=== PATIENT | male | born 1975 | race Caucasian/White ===

== ENCOUNTER 2019-04-03 14:59 | Inpatient (IN) | payer BC, OTHER ==
[~2019-04-03] VITALS: Ht 172.7 cm; Wt 96.6 kg
[2019-04-03 14:45] VITALS: BP 141/111
--- NOTE | 2019-04-03 17:08 | HPEPDOC ---
Jig Filler Note DATE OF ADMISSION: 04-03-19 SOURCE OF ADMISSION INFORMATION: [facility] CHIEF COMPLAINT: CIDP HISTORY OF PRESENT ILLNESS: 43M pmh HTN, depression, kidney stones, diagnosed with bibasilar metapneumovirus PNA October 2018 and again in December 2018 where he was worked up at [facility] and later presented to [facility] on 03-06-19 with worsening shortness of breath and left arm weakness. He was diagnosed with Rhinovirus. Of note a sathish romuscular work-up at [facility] had been performed without a definitive diagnosis. At [facility] he underwent an LP which showed elevated proteins and was started on IV solumedrol and transitioned to oral steroids. He was evaluated by neurology who considered his LP findings to be autoimmune in nature, however was not certain if his unilateral weakness presentation was characteristic of CIDP. He was started on IVIG for his continued weakness and respiratory impairments due to shallow breathing thought to be due to a neuromuscular insult. Repeat chest XR on 03-20-19 showed bibasilar subsegmental atelectasis and possible infiltrates left greater than right. MR brain 03-23-19 showed, No definite intracranial abnormality to account for the patients symptoms. CT cervical spine showed, Normal caliber nerve roots without enhancement. No MRI evidence of chronic idiopathic demyelinating polyneuraopthyno canal or foraminal compromise. He was eventually weaned off of BiPAP and supplemental 02, evaluated by therapy who found him to be below his prior level of function and deemed appropriate for discharge to ARU on 04-03-19. REVIEW OF SYSTEMS: The following is a completed review of systems and has been reviewed. Review of systems otherwise unremarkable. PAIN: Patient self reports burning pain in his bilateral feet EYES: No recent vision changes EARS, NOSE, & THROAT: No throat pain, or dysphagia, or rhinorrhea CARDIOVASCULAR: Denies chest pain or palpitations PULMONARY: Denies shortness of breath at rest GASTROINTESTINAL: Denies constipation/diarrhea GENITOURINARY: denies dysuria MUSCULOSKELETAL: left sided weakness and muscle spasms NEUROLOGICAL:left sided weakness with gait instability HEMATOLOGICAL: denies easy bruising SKIN: no rash PSYCHIATRIC: Unremarkable All other review of systems found to be negative. PAST MEDICAL HISTORY: as per HPI PAST SURGICAL HISTORY: Appendectomy, cholecystectomy, total knee replacement ALLERGIES: Please see below. MEDICATIONS: Please see below. 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 GENERAL: Pleasant and cooperative. No acute distress. Alert and oriented times three HEENT: PERRL. Extraocular movements intact. Clear conjunctiva CARDIOVASCULAR: Regular rate and rhythm. No murmurs, rubs, or gallops] LUNGS: decreased inspiratory efforts, No wheezes. No rhonchi ABDOMEN: Soft, nontender, nondistended. Positive bowel sounds. Normal active bowel sounds NEUROLOGICAL: Alert and oriented times three. Cranial nerves II through XII grossly intact. Sensation diminished to light touch left LE and left UE (-) clonus, (-) Babinski (+) bilat LE muscle jerking with voluntary movements EXTREMITIES: 5\5 strength right UE, 5-/5 LUE 5\5 strength right lower extremity. 5-/5 strength in left lower extremity. (-) Homans bilat, no notable edema SKIN: intact LABORATORY DATA: Please see below. IMAGING:Imaging documentation personally reviewed by record FUNCTIONAL STATUS: Premorbid: Independent with all activities of daily life as well as mobility On Admission: Min-Mod assistance for bathing, upper body dressing, bed chair and wheelchair transfers, toilet transfers, ambulation. GOALS: Mod-I household distances with RW, functional transfers, stairs, ambulation, bathing, dressing toileting, medical optimization, caregiver training ASSESSMENT:43-year-old M with past medical history of who presents status post prolonged hospital course for respiratory failure due to metapneumovirus with CIDP PLAN: 1. Rehab: PT/OT- strengthen/stretch/maintain ROM all 4lextremities, advance gait, improve endurance, optimize ADL management 2. Neuro: recent diagnosis of CIDP with left sided weakness, neuromuscular respiratory failure, with gait impairment s/p IVIG and IV steroids, continue prednisone and taper slowly, long-term steroid use may cause steroid induced myopathy, however cannot stop abruptly to avoid adrenal insufficiency, will need further neuro work-up -f/u with Dr. Davis as outpatient 3. Resp: encourage incentive spirometry, Duonebs, w/u oral steroids, monitor for infection -s/p recent RF in setting of human metapneumovirus and alter diagnosed with Rhinovirus 4. Cardiac: HTN c/u Amlodipine, will add propranolol for likely steroid related anxiety manifesting with tachycardia -medicine consulted to assist in management 5. Endo: will start ISS while on high dose steroids 6. Pain: c/u gabapentin, will start baclofen for spasms, oxycodone prn -requip for leg shaking 7.Psych: c/u ZOloft for depression and ambien for insomnia 8. DVT ppx: lovenox 9. GI ppx: protonix 10. Dispo: tbd POST ADMISSION PHYSICIAN EVALUATION: Medical and functional status: Description of medical status, medical assessment: As above. Rehabilitation diagnosis and current and prior cold morbid medical conditions as above. Risk of complications and plans to mitigate them as above. Description of functional status current status is as above. Prior status as above. Status compared to preadmission: There are no clinically significant differences between the patient's current status and the information described on the preadmission screening document. Treatment plan anticipated: Treatment plan is as described above. Required disciplines including physical therapy, occupational therapy, others as noted above. Intensity of services: 3 hours a day, 6 days a week. Special considerations: There are no specific special or safety considerations that would likely preclude immediate implementation of an intensive rehabilitation program or subsequently influence the plan of care. ATTESTATION: Considering all the information above, it is my best judgment that this patient requires intensive rehabilitation therapy as described above and an inpatient hospital environment due to the complexity of nursing, medical, and rehabilitation needs required by the patient. Furthermore, this patient can reasonably be expected to participate in an benefit from an inpatient cyril abilitation stay with an interdisciplinary team approach to the delivery of rehabilitation care under the direction and supervision of rehabilitation physician. PROGNOSIS: Excellent ESTIMATED LENGTH OF STAY:18-21 days. PROJECTED DISCHARGE DESTINATION: Home with family support and any durable medical equipment required to increase functional safety and mobility. TIME SPENT COUNSELING AND COORDINATING INITIAL CARE: Greater than 70 minutes. Vital Signs Vital Signs Date Time Temp Pulse Resp B/P (MAP) Pulse Ox O2 Delivery O2 Flow Rate FiO2 04/03/19 14:45 97.9 111 18 141/111 (121) 95 Room Air 04/04/19 06:30 0.0 Home Medications Scheduled Amlodipine Besylate (Amlodipine Besylate) 2.5 Mg Tablet, 2.5 MG PO DAILY, (Reported) Aspirin (Aspirin EC) 81 Mg Tablet.dr, 81 MG PO DAILY, (Reported) Budesonide/Formoterol (Symbicort 160-4.5 Mcg Inhaler) 6 Gm Hfa.aer.ad, 2 PUFF INH BID, (Reported) Calcitriol (Calcitriol) 0.25 Mcg Capsule, 0.25 MCG PO DAILY, (Reported) Calcium Carbonate (Tums) 200 Mg Tab.chew, 1,000 MG PO BIDWM, (Reported) Ergocalciferol (Vitamin D2) (Drisdol) 50,000 Unit Capsule, 50,000 UNIT PO QWEEK, (Reported) MONDAYS Escitalopram Oxalate (Escitalopram Oxalate) 20 Mg Tablet, 20 MG PO DAILY, (Reported) Gabapentin (Gabapentin) 300 Mg Capsule, 300 MG PO TID, (Reported) 0600/1400/2100 Pantoprazole Sodium (Pantoprazole Sodium) 40 Mg Tablet.dr, 40 MG PO BID, (Reported) Potassium Chloride (Potassium Chloride) 20 Meq Tablet.er, 20 MEQ PO DAILY, (Reported) Prednisone (Prednisone) 20 Mg Tablet, 40 MG PO DAILY, (Reported) Ropinirole HCl (Ropinirole HCl) 1 Mg Tablet, 1 MG PO QHS, (Reported) Sennosides/Docusate Sodium (Senna-S Tablet) 1 Each Tablet, 1 TAB PO BID, (Reported) Sertraline HCl (Sertraline HCl) 50 Mg Tablet, 50 MG PO DAILY, (Reported) Testosterone Cypionate (Testosterone Cypionate) 200 Mg/1 Ml Vial, 200 MG IM Q2WK, (Reported) NEW MED, NOT STARTED Zolpidem Tartrate (Zolpidem Tartrate) 5 Mg Tablet, 5 MG PO QHS, (Reported) Scheduled PRN Acetaminophen (Acetaminophen) 325 Mg Tablet, 650 MG PO Q6H PRN for PAIN, (Reported) Cyclobenzaprine HCl (Cyclobenzaprine HCl) 10 Mg Tablet, 10 MG PO TID PRN for MUSCLE SPASMS, (Reported) 0600/1400/2300 Mag Hydrox/Aluminum Hyd/Simeth (Maalox Maximum Strength Susp) 355 Ml Oral.susp, 15 ML PO Q4H PRN for HEARTBURN/INDIGESTION, (Reported) Melatonin (Melatonin) 3 Mg Tablet, 3 MG PO QHS PRN for INSOMNIA, (Reported) Ondansetron HCl (Ondansetron HCl) 4 Mg Tablet, 4 MG PO Q6H PRN for NAUSEA OR VOMITING, (Reported) Oxycodone HCl (Oxycodone HCl) 5 Mg Tablet, 5 MG PO Q3H PRN for PAIN, (Reported) Allergies Coded Allergies: TAPE (Verified Allergy, Intermediate, HIVES, 04/03/19) PLASTIC TAPE, PAPER TAPE [place] silver (Verified Allergy, Intermediate, HIVES, 04/03/19) A-FIB/CHADSVASC A-FIB History Current/History of A-Fib/PAF?: No ARMANDO HARRELL MD Apr 03, 2019 17:08
[2019-04-03] MEDS ORDERED: BISACODYL 10 MG SUPP PR PRN (17:15)
[2019-04-03] MEDS ORDERED: ACETAMINOPHEN TAB 650MG DOSE (2X325MG) PO PRN (17:15)
[2019-04-03] MEDS ORDERED: ONDANSETRON 4 MG TAB (S0181) PO PRN (17:15)
[2019-04-03] MEDS ORDERED: oxyCODONE 5MG TAB PO PRN (17:15)
[2019-04-03] MEDS ORDERED: zolPIDEM TARTRATE 5 MG TAB PO PRN (17:15)
[2019-04-03] MEDS ORDERED: CYCL10TA PO (17:58)
[2019-04-03] MEDS ORDERED: MAALSUS19 PO (17:58)
[2019-04-03] MEDS ORDERED: SENN-23 PO (17:58)
[2019-04-03] MEDS ORDERED: TUMS500C PO (17:58)
[2019-04-03] MEDS ORDERED: ROPI1TAB PO (17:58)
[2019-04-03] MEDS ORDERED: ASPI-161 PO (17:58)
[2019-04-03] MEDS ORDERED: OXYC-517 PO (17:58)
[2019-04-03] MEDS ORDERED: ZOLP5TAB PO (17:58)
[2019-04-03] MEDS ORDERED: POTA1TAB14 PO (17:58)
[2019-04-03] MEDS ORDERED: SYMB16INH INH (17:58)
[2019-04-03] MEDS ORDERED: ONDA4TAB5 PO (17:58)
[2019-04-03] MEDS ORDERED: AMLO2.5T3 PO (17:58)
[2019-04-03] MEDS ORDERED: PANT40TA3 PO (17:58)
[2019-04-03] MEDS ORDERED: APAP325T4 PO (17:58)
[2019-04-03] MEDS ORDERED: DRIS50003 PO (17:58)
[2019-04-03] MEDS ORDERED: GABA-843 PO (17:58)
[2019-04-03] MEDS ORDERED: PRED20TA PO (17:58)
[2019-04-03] MEDS ORDERED: MELA3TAB41 PO (17:58)
[2019-04-03] MEDS ORDERED: CALC1CAP31 PO (17:58)
[2019-04-03] MEDS ORDERED: SERT50TA29 PO (17:58)
[2019-04-03] MEDS: CALCIUM CARBONATE 500 MG CHEW U/D PO SCH (18:00)
[2019-04-03] MEDS ORDERED: ESCI20TA PO (18:06)
[2019-04-03] MEDS ORDERED: TEST200I14 IM (18:20)
[2019-04-03] MEDS ORDERED: PILL CUTTER 1 EACH XX PRN (19:30)
[2019-04-03 20:20] VITALS: BP 134/87
[2019-04-03] MEDS ORDERED: PANTOPRAZOLE 20 MG TAB PO SCH (21:00)
[2019-04-03] MEDS: SYMBICORT 160/4.5MCG INHALER 6GM INH SCH (21:00)
[2019-04-03] MEDS: SENNA 8.6 MG TAB (SENOKOT) PO SCH (21:05)
[2019-04-03] MEDS: rOPINIRole 1MG TAB PO SCH (21:06)
[2019-04-03] MEDS: DOCUSATE SODIUM 100 MG CAP PO SCH (21:06)
[2019-04-03] MEDS: GABAPENTIN 300 MG CAP PO SCH (21:06)
[2019-04-03] MEDS: PANTOPRAZOLE 40MG TAB (PROTONIX) PO SCH (21:06)
[2019-04-03] MEDS: PROPRANOLOL 10 MG TAB PO SCH (21:08)
[2019-04-03] MEDS: CYCLOBENZAPRINE 5MG TABLET PO PRN (23:45)
[2019-04-04 06:30] VITALS: BP 138/84
[2019-04-04] MEDS: GABAPENTIN 300 MG CAP PO SCH ×3 (06:54→21:31)
[2019-04-04] MEDS: CYCLOBENZAPRINE 5MG TABLET PO PRN (06:54)
[2019-04-04 07:28] LABS: BASO % 0.1 % (0.0-1.0); EOS # 0.2 10^3/uL (0.0-0.5); HEMATOCRIT 39.4 % (42.0-52.0); HEMOGLOBIN 12.6 g/dl (13.5-17.5); LYMPH # 3.3 10^3/uL (1.5-5.0); LYMPH % 37.9 % (24.0-44.0); MEAN CORPUSCULAR HEMOGLOBIN 29.4 pg (27.0-33.0); MEAN CORPUSCULAR VOLUME 91.8 fl (80.0-96.0); MONO # 0.5 10^3/uL (0.0-0.8); NEUTROPHILS # 4.7 10^3/uL (1.5-8.5); NEUTROPHILS % 53.5 % (36.0-66.0); PLATELET COUNT, AUTOMATED 240 10^3/uL (150-450); RED BLOOD COUNT 4.29 10^6/uL (4.30-6.10); WHITE BLOOD COUNT 8.7 10^3/uL (4.0-10.0)
[2019-04-04] MEDS: ENOXAPARIN 40 MG/0.4 ML SYRINGE (J1650) SC SCH (07:47)
[2019-04-04] MEDS: CALCITRIOL 0.25 MCG CAP (S0169) PO SCH (07:47)
[2019-04-04] MEDS: SERTRALINE HCL 50 MG TAB PO SCH (07:47)
[2019-04-04] MEDS: ASPIRIN 81 MG ENTERIC TAB PO SCH (07:49)
[2019-04-04] MEDS: DOCUSATE SODIUM 100 MG CAP PO SCH ×2 (07:49→21:00)
[2019-04-04] MEDS: CALCIUM CARBONATE 500 MG CHEW U/D PO SCH ×3 (07:49→17:19)
[2019-04-04] MEDS: PROPRANOLOL 10 MG TAB PO SCH ×3 (07:50→21:33)
[2019-04-04] MEDS: POTASSIUM CHLORIDE 10 MEQ SR TABLET PO SCH (07:50)
[2019-04-04] MEDS: PANTOPRAZOLE 40MG TAB (PROTONIX) PO SCH ×2 (07:51→21:31)
[2019-04-04 07:57] LABS: ALT/SGPT 75 U/L (12-78); BILIRUBIN,TOTAL 0.5 MG/DL (0.2-1.0); BLOOD UREA NITROGEN 25 MG/DL (7-18); CARBON DIOXIDE LEVEL 26 MEQ/L (21-32); CHLORIDE LEVEL 103 MEQ/L (98-107); CREATININE FOR GFR 1.04 MG/DL (0.70-1.30); GLOMERULAR FILTRATION RATE > 60.0 (>60); GLUCOSE, FASTING 90 MG/DL (70-100); POTASSIUM SERUM 3.5 MEQ/L (3.5-5.1); SODIUM LEVEL 140 MEQ/L (136-145)
[2019-04-04] MEDS ORDERED: predniSONE 20 MG TAB PO SCH (09:00)
[2019-04-04] MEDS: SYMBICORT 160/4.5MCG INHALER 6GM INH SCH ×2 (09:00→18:34)
[2019-04-04] MEDS: BACLOFEN 5MG PER 1/2 TABLET PO SCH ×3 (11:02→21:30)
[2019-04-04] MEDS ORDERED: GLUCOSE 4 GM CHEW TABLET PO PRN (11:15)
[2019-04-04] MEDS ORDERED: DEXTROSE 50% 50 ML SYRINGE IV PRN (11:15)
[2019-04-04] MEDS ORDERED: GLUCAGON FOR INJ 1 MG VIAL (J1610) SC PRN (11:15)
[2019-04-04] MEDS: HumaLOG INSULIN (NovoLOG) PER UNIT SC SCH ×3 (12:38→21:00)
[2019-04-04 14:00] VITALS: BP 139/90
[2019-04-04] MEDS: IPRATROPIUM 0.02% SOLN 0.5MG/2.5 ML NEB INH SCH (20:00)
[2019-04-04 20:05] VITALS: BP 129/74
[2019-04-04] MEDS: SENNA 8.6 MG TAB (SENOKOT) PO SCH (21:00)
[2019-04-04] MEDS: predniSONE 20 MG TAB PO ONE ×2 (21:31→21:52)
[2019-04-04] MEDS: rOPINIRole 1MG TAB PO SCH (21:31)
[2019-04-04] MEDS ORDERED: CYCLOBENZAPRINE 5MG TABLET PO ONE (23:30)
[2019-04-04] MEDS: zolPIDEM TARTRATE 5 MG TAB PO PRN (23:35)
[2019-04-05 01:45] VITALS: BP 135/83
[2019-04-05 06:16] VITALS: BP 132/84
[2019-04-05] MEDS: GABAPENTIN 300 MG CAP PO SCH ×4 (06:59→21:52)
[2019-04-05] MEDS ORDERED: predniSONE 5 MG TAB PO SCH (09:00)
[2019-04-05] MEDS ORDERED: predniSONE 10 MG TAB PO SCH (09:00)
[2019-04-05] MEDS: IPRATROPIUM 0.02% SOLN 0.5MG/2.5 ML NEB INH SCH ×4 (09:35→20:55)
[2019-04-05] MEDS: CALCIUM CARBONATE 500 MG CHEW U/D PO SCH ×3 (09:48→16:44)
[2019-04-05] MEDS: HumaLOG INSULIN (NovoLOG) PER UNIT SC SCH ×4 (09:48→21:00)
[2019-04-05] MEDS: ASPIRIN 81 MG ENTERIC TAB PO SCH (09:49)
[2019-04-05] MEDS: POTASSIUM CHLORIDE 10 MEQ SR TABLET PO SCH (09:49)
[2019-04-05] MEDS: PROPRANOLOL 10 MG TAB PO SCH ×3 (09:49→21:53)
[2019-04-05] MEDS: predniSONE 10 MG TAB PO SCH (09:50)
[2019-04-05] MEDS: predniSONE 5 MG TAB PO SCH (09:50)
[2019-04-05] MEDS: CALCITRIOL 0.25 MCG CAP (S0169) PO SCH (09:50)
[2019-04-05] MEDS: amLODIPine 5 MG TAB PO SCH (09:51)
[2019-04-05] MEDS: SERTRALINE HCL 50 MG TAB PO SCH (09:52)
[2019-04-05] MEDS: DOCUSATE SODIUM 100 MG CAP PO SCH ×2 (09:52→21:52)
[2019-04-05] MEDS: BACLOFEN 5MG PER 1/2 TABLET PO SCH ×3 (09:52→21:53)
[2019-04-05] MEDS: PANTOPRAZOLE 40MG TAB (PROTONIX) PO SCH ×2 (09:53→21:52)
[2019-04-05] MEDS: ENOXAPARIN 40 MG/0.4 ML SYRINGE (J1650) SC SCH (09:53)
[2019-04-05] MEDS ORDERED: MAALOX 30 ML SUSP *UDC PO PRN (10:15)
[2019-04-05] MEDS ORDERED: ONDANSETRON 4 MG ORAL DISINTEGRATING TAB (Q0162 PER 1MG) PO PRN (11:30)
[2019-04-05] MEDS: SYMBICORT 160/4.5MCG INHALER 6GM INH SCH ×2 (13:58→20:55)
[2019-04-05 14:00] VITALS: BP 145/89
[2019-04-05] MEDS ORDERED: GABAPENTIN 300 MG CAP PO SCH (15:00)
[2019-04-05] MEDS: FLUTICASONE PROP 0.05% NASAL SPRAY 16 GM (FLONASE) NARES SCH (16:44)
[2019-04-05] MEDS: POLYVINYL ALCOHOL OPHTH SOLN 15 ML(LIQUITEARS) OS SCH ×2 (16:44→21:54)
[2019-04-05] MEDS: LORATADINE 10 MG TAB PO SCH (16:47)
--- NOTE | 2019-04-05 19:04 | IPNPDOC ---
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 He reports his chest still feels tight, but his breathing remains stable on room air. REVIEW OF SYSTEMS: The following is a completed review of systems and has been reviewed. Review of systems otherwise unremarkable. PAIN: Patient self reports burning pain in his bilateral feet EYES: No recent vision changes EARS, NOSE, & THROAT: No throat pain, or dysphagia, or rhinorrhea CARDIOVASCULAR: Denies chest pain or palpitations PULMONARY: Denies shortness of breath at rest GASTROINTESTINAL: Denies constipation/diarrhea GENITOURINARY: denies dysuria MUSCULOSKELETAL: left sided weakness and muscle spasms NEUROLOGICAL:left sided weakness with gait instability HEMATOLOGICAL: denies easy bruising SKIN: no rash PSYCHIATRIC: Unremarkable All other review of systems found to be negative. PHYSICAL EXAMINATION: VITAL SIGNS: Please see below. GENERAL: Pleasant and cooperative. No acute distress. Alert and oriented times three HEENT: PERRL. Extraocular movements intact. Clear conjunctiva CARDIOVASCULAR: Regular rate and rhythm. No murmurs, rubs, or gallops] LUNGS: decreased inspiratory efforts, No wheezes. No rhonchi ABDOMEN: Soft, nontender, nondistended. Positive bowel sounds. Normal active bowel sounds NEUROLOGICAL: Alert and oriented times three. Cranial nerves II through XII grossly intact. Sensation diminished to light touch left LE and left UE (-) clonus, (-) Babinski (+) bilat LE muscle jerking with voluntary movements EXTREMITIES: 5\5 strength right UE, 5-/5 LUE 5\5 strength right lower extremity. 5-/5 strength in left lower extremity. 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 Rehab: PT/OT- strengthen/stretch/maintain ROM all 4lextremities, advance gait, improve endurance, optimize ADL management 2. Neuro: recent diagnosis of CIDP with left sided weakness, neuromuscular respiratory failure, with gait impairment s/p IVIG and IV steroids, continue prednisone and taper slowly, long-term steroid use may cause steroid induced myopathy, however cannot stop abruptly to avoid adrenal insufficiency, will need further neuro work-up -f/u with Dr. Davis as outpatient 3. Resp: encourage incentive spirometry, Ipratropium nebs, c/u Symbicort and oral steroids, monitor for infection -s/p recent RF in setting of human metapneumovirus and subsequent diagnosed with Rhinovirus 4. Cardiac: HTN c/u Amlodipine, c/u propranolol for likely steroid related anxiety manifesting with tachycardia -improving -medicine consulted to assist in management 5. Endo: c/u ISS while on high dose steroids 6. Pain: c/u gabapentin, c/u baclofen for spasms, oxycodone prn -c/u requip for leg shaking 7.Psych: c/u ZOloft for depression and ambien for insomnia 8. DVT ppx: lovenox 9. GI ppx: protonix 10. Dispo: tbd Allergies Coded Allergies: TAPE (Verified Allergy, Intermediate, HIVES, 04/03/19) PLASTIC TAPE, PAPER TAPE [place] silver (Verified Allergy, Intermediate, HIVES, 04/03/19) Vital Signs Vital Signs Date Time Temp Pulse Resp B/P (MAP) Pulse Ox O2 Delivery O2 Flow Rate FiO2 04/05/19 16:47 95 138/79 04/05/19 14:00 97.5 18 95 04/05/19 06:16 Room Air 04/04/19 06:30 0.0 Laboratory Data Labs 24H Laboratory Tests 2 04/04/19 20:42: Bedside Glucose (Misc Panel) 107H 04/05/19 06:03: Bedside Glucose (Misc Panel) 135H 04/05/19 11:38: Bedside Glucose (Misc Panel) 110H 04/05/19 17:04: Bedside Glucose (Misc Panel) 143H Current Medications Current Medications Current Medications Medications (Trade) Dose Ordered Sig/Karena Route PRN Reason Start Time Stop Time Status Last Admin Dose Admin Acetaminophen (Tylenol Tab) 650 mg Q4HP PRN PO MILD PAIN (PS 1-4) 04/03/19 17:15 Al Hydrox/Mg Hydrox/Simethicone (Mylanta) 30 ml Q4HP PRN PO HEARTBURN 04/05/19 10:15 Amlodipine Besylate (Norvasc) 2.5 mg DAILY PO 04/04/19 09:00 04/04/19 16:26 DC 04/04/19 07:48 Amlodipine Besylate (Norvasc) 5 mg DAILY PO 04/05/19 09:00 04/05/19 09:51 Artificial Tears (Akwa Tears) 2 drop TID OS 04/05/19 16:00 04/05/19 16:44 Aspirin (Ecotrin) 81 mg DAILY PO 04/04/19 09:00 04/05/19 09:49 Baclofen (Lioresal) 5 mg TID PO 04/04/19 09:00 04/05/19 16:44 Bisacodyl (Dulcolax Suppository) 10 mg DAILYPRN PRN [place] CONSTIPATION 04/03/19 17:15 Budesonide/ Formoterol Fumarate (Symbicort 160/ 4.5mcg) 2 puff BID INH 04/03/19 21:00 04/05/19 13:58 Calcitriol (Rocaltrol) 0.25 mcg DAILY PO 04/04/19 09:00 04/05/19 09:50 Calcium Carbonate (Tums) 500 mg WM PO 04/03/19 18:00 04/05/19 16:44 Cyclobenzaprine HCl (Flexeril) 5 mg Q6HP PRN PO SPASMS 04/03/19 17:15 04/04/19 10:36 DC 04/04/19 06:54 Cyclobenzaprine HCl (Flexeril) 5 mg QHS PRN PO SPASMS 04/05/19 10:30 Dextrose (Dextrose 50%) 25 ml ASDIRECTED PRN IV SEE LABEL COMMENTS 04/04/19 11:15 Docusate Sodium (Colace) 100 mg BID PO 04/03/19 21:00 04/05/19 09:52 Enoxaparin Sodium (Lovenox) 40 mg DAILY SC 04/04/19 09:00 04/05/19 09:53 Fluticasone Propionate (Flonase 0.05% Nasal [place]) 1 spray BID NARES 04/05/19 15:45 04/05/19 16:44 Gabapentin (Neurontin) 300 mg BID@0600,1500 PO 04/05/19 15:00 04/05/19 15:07 Gabapentin (Neurontin) 300 mg BID@0900,1500 PO 04/05/19 15:00 04/05/19 12:32 DC Gabapentin (Neurontin) 300 mg TID PO 04/03/19 21:00 04/05/19 10:25 DC 04/05/19 09:51 Gabapentin (Neurontin) 600 mg QHS PO 04/05/19 21:00 Glucagon (Glucagon) 1 mg ASDIRECTED PRN SC SEE LABEL COMMENTS 04/04/19 11:15 Glucose (Glucose) 16 GM ASDIRECTED PRN PO SEE LABEL COMMENTS 04/04/19 11:15 Home Med (Med Rec Complete!) ASDIRECTED XX 04/03/19 18:15 04/03/19 19:02 DC Insulin Human Lispro (HumaLOG INSULIN) SEE PROTOCOL TABLE AC SC 04/04/19 12:00 04/05/19 18:18 Insulin Human Lispro (HumaLOG INSULIN) SEE PROTOCOL TABLE QHS SC 04/04/19 21:00 Ipratropium [place] (Atrovent 0.02%) 0.25 mg RTID INH 04/04/19 20:00 Loratadine (Claritin) 10 mg DAILY PO 04/05/19 15:45 04/05/19 16:47 Ondansetron HCl (Zofran Odt) 4 mg Q4HP PRN PO NAUSEA OR VOMITING 04/05/19 11:30 Ondansetron HCl (Zofran) 4 mg Q6HP PRN PO NAUSEA 04/03/19 17:15 04/05/19 11:19 DC 04/05/19 01:55 Oxycodone HCl (Roxicodone, Oxyir) 5 mg Q4HP PRN PO PAIN 04/03/19 17:15 04/04/19 10:41 DC Pantoprazole Sodium (Protonix) 40 mg BID PO 04/03/19 21:00 04/05/19 09:53 Pantoprazole Sodium (Protonix) 40 mg QHS PO 04/03/19 21:00 04/03/19 19:06 DC Potassium Chloride (Micro-K Extencaps) 20 meq DAILY PO 04/04/19 09:00 04/05/19 09:49 Prednisone (Deltasone) 5 mg BID PO 04/05/19 09:00 04/04/19 21:58 DC Prednisone (Deltasone) 5 mg DAILY PO 04/05/19 09:00 04/05/19 09:50 Prednisone (Deltasone) 30 mg BID PO 04/05/19 09:00 04/04/19 21:58 DC Prednisone (Deltasone) 30 mg DAILY PO 04/05/19 09:00 04/05/19 09:50 Prednisone (Deltasone) 40 mg DAILY PO 04/04/19 09:00 04/04/19 12:49 DC 04/04/19 07:47 Propranolol HCl (Inderal) 5 mg TID PO 04/03/19 21:00 04/04/19 10:41 DC 04/04/19 07:50 Propranolol HCl (Inderal) 10 mg TID PO 04/04/19 16:00 04/05/19 16:47 Ropinirole HCl (Requip) 1 mg QHS PO 04/03/19 21:00 04/04/19 21:31 Senna (Senokot) 1 tab QHS PO 04/03/19 21:00 04/03/19 21:05 Sertraline HCl (Zoloft) 50 mg DAILY PO 04/04/19 09:00 04/05/19 09:52 Zolpidem Tartrate (Ambien) 5 mg QHSP PRN PO INSOMNIA 04/03/19 17:15 04/04/19 11:09 DC 04/03/19 21:33 Zolpidem Tartrate (Ambien) 10 mg QHSP PRN PO INSOMNIA 04/04/19 11:15 04/04/19 23:35 ARMANDO HARRELL MD Apr 05, 2019 19:04
--- NOTE | 2019-04-05 19:04 | IPNPDOC ---
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 He later reported left eye irritation. REVIEW OF SYSTEMS: The following is a completed review of systems and has been reviewed. Review of systems otherwise unremarkable. PAIN: Patient self reports burning pain in his bilateral feet EYES: No recent vision changes, +left eye irritation EARS, NOSE, & THROAT: No throat pain, or dysphagia, or rhinorrhea CARDIOVASCULAR: Denies chest pain or palpitations PULMONARY: Denies shortness of breath at rest GASTROINTESTINAL: Denies constipation/diarrhea GENITOURINARY: denies dysuria MUSCULOSKELETAL: left sided weakness and muscle spasms NEUROLOGICAL:left sided weakness with gait instability HEMATOLOGICAL: denies easy bruising SKIN: no rash PSYCHIATRIC: Unremarkable All other review of systems found to be negative. PHYSICAL EXAMINATION: VITAL SIGNS: Please see below. GENERAL: Pleasant and cooperative. No acute distress. Alert and oriented times three HEENT: PERRL. Extraocular movements intact. Left eye with mild conjunctival injection, mild eyelid erythema CARDIOVASCULAR: Regular rate and rhythm. No murmurs, rubs, or gallops LUNGS: decreased inspiratory efforts, No wheezes. No rhonchi ABDOMEN: Soft, nontender, nondistended. Positive bowel sounds. Normal active bowel sounds NEUROLOGICAL: Alert and oriented times three. Cranial nerves II through XII grossly intact. Sensation diminished to light touch left LE and left UE (-) clonus, (-) Babinski (+) bilat LE muscle jerking with voluntary movements EXTREMITIES: 5\5 strength right UE, 5-/5 LUE 5\5 strength right lower extremity. 5-/5 strength in left lower extremity. 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 Rehab: PT/OT- strengthen/stretch/maintain ROM all 4lextremities, advance gait, improve endurance, optimize ADL management 2. Neuro: recent diagnosis of CIDP with left sided weakness, neuromuscular respiratory failure, with gait impairment s/p IVIG and IV steroids, continue prednisone and taper slowly, long-term steroid use may cause steroid induced myopathy, however cannot stop abruptly to avoid adrenal insufficiency, will need further neuro work-up -f/u with Dr. Davis as outpatient 3. Resp: encourage incentive spirometry, Ipratropium nebs, c/u Symbicort and oral steroids, monitor for infection -s/p recent RF in setting of human metapneumovirus and subsequent diagnosed with Rhinovirus 4. Cardiac: HTN c/u Amlodipine, c/u propranolol for likely steroid related anxiety manifesting with tachycardia -improving -medicine consulted to assist in management 5. Endo: c/u ISS while on high dose steroids 6. Pain: c/u gabapentin will increase evening dose to 600mg, c/u baclofen for spasms, discussed with patient Flexeril qHS prn if higher dose gabapentin does not work -c/u requip for leg shaking 7.Psych: c/u ZOloft for depression and ambien for insomnia 8. DVT ppx: lovenox 9. GI ppx: protonix 10. Ophthalmology- patient with mild left conjunctival irritation with eyelid erythema, will start artificial tears, warm-moist compresses, flonase, and Claritin for likely allergic manifestation 11. Dispo: tbd Allergies Coded Allergies: TAPE (Verified Allergy, Intermediate, HIVES, 04/03/19) PLASTIC TAPE, PAPER TAPE [place] silver (Verified Allergy, Intermediate, HIVES, 04/03/19) Vital Signs Vital Signs Date Time Temp Pulse Resp B/P (MAP) Pulse Ox O2 Delivery O2 Flow Rate FiO2 04/05/19 16:47 95 138/79 04/05/19 14:00 97.5 18 95 04/05/19 06:16 Room Air 04/04/19 06:30 0.0 Laboratory Data Labs 24H Laboratory Tests 2 04/04/19 20:42: Bedside Glucose (Misc Panel) 107H 04/05/19 06:03: Bedside Glucose (Misc Panel) 135H 04/05/19 11:38: Bedside Glucose (Misc Panel) 110H 04/05/19 17:04: Bedside Glucose (Misc Panel) 143H Current Medications Current Medications Current Medications Medications (Trade) Dose Ordered Sig/Karena Route PRN Reason Start Time Stop Time Status Last Admin Dose Admin Acetaminophen (Tylenol Tab) 650 mg Q4HP PRN PO MILD PAIN (PS 1-4) 04/03/19 17:15 Al Hydrox/Mg Hydrox/Simethicone (Mylanta) 30 ml Q4HP PRN PO HEARTBURN 04/05/19 10:15 Amlodipine Besylate (Norvasc) 2.5 mg DAILY PO 04/04/19 09:00 04/04/19 16:26 DC 04/04/19 07:48 Amlodipine Besylate (Norvasc) 5 mg DAILY PO 04/05/19 09:00 04/05/19 09:51 Artificial Tears (Akwa Tears) 2 drop TID OS 04/05/19 16:00 04/05/19 16:44 Aspirin (Ecotrin) 81 mg DAILY PO 04/04/19 09:00 04/05/19 09:49 Baclofen (Lioresal) 5 mg TID PO 04/04/19 09:00 04/05/19 16:44 Bisacodyl (Dulcolax Suppository) 10 mg DAILYPRN PRN [place] CONSTIPATION 04/03/19 17:15 Budesonide/ Formoterol Fumarate (Symbicort 160/ 4.5mcg) 2 puff BID INH 04/03/19 21:00 04/05/19 13:58 Calcitriol (Rocaltrol) 0.25 mcg DAILY PO 04/04/19 09:00 04/05/19 09:50 Calcium Carbonate (Tums) 500 mg WM PO 04/03/19 18:00 04/05/19 16:44 Cyclobenzaprine HCl (Flexeril) 5 mg Q6HP PRN PO SPASMS 04/03/19 17:15 04/04/19 10:36 DC 04/04/19 06:54 Cyclobenzaprine HCl (Flexeril) 5 mg QHS PRN PO SPASMS 04/05/19 10:30 Dextrose (Dextrose 50%) 25 ml ASDIRECTED PRN IV SEE LABEL COMMENTS 04/04/19 11:15 Docusate Sodium (Colace) 100 mg BID PO 04/03/19 21:00 04/05/19 09:52 Enoxaparin Sodium (Lovenox) 40 mg DAILY SC 04/04/19 09:00 04/05/19 09:53 Fluticasone Propionate (Flonase 0.05% Nasal [place]) 1 spray BID NARES 04/05/19 15:45 04/05/19 16:44 Gabapentin (Neurontin) 300 mg BID@0600,1500 PO 04/05/19 15:00 04/05/19 15:07 Gabapentin (Neurontin) 300 mg BID@0900,1500 PO 04/05/19 15:00 04/05/19 12:32 DC Gabapentin (Neurontin) 300 mg TID PO 04/03/19 21:00 04/05/19 10:25 DC 04/05/19 09:51 Gabapentin (Neurontin) 600 mg QHS PO 04/05/19 21:00 Glucagon (Glucagon) 1 mg ASDIRECTED PRN SC SEE LABEL COMMENTS 04/04/19 11:15 Glucose (Glucose) 16 GM ASDIRECTED PRN PO SEE LABEL COMMENTS 04/04/19 11:15 Home Med (Med Rec Complete!) ASDIRECTED XX 04/03/19 18:15 04/03/19 19:02 DC Insulin Human Lispro (HumaLOG INSULIN) SEE PROTOCOL TABLE AC SC 04/04/19 12:00 04/05/19 18:18 Insulin Human Lispro (HumaLOG INSULIN) SEE PROTOCOL TABLE QHS SC 04/04/19 21:00 Ipratropium [place] (Atrovent 0.02%) 0.25 mg RTID INH 04/04/19 20:00 Loratadine (Claritin) 10 mg DAILY PO 04/05/19 15:45 04/05/19 16:47 Ondansetron HCl (Zofran Odt) 4 mg Q4HP PRN PO NAUSEA OR VOMITING 04/05/19 11:30 Ondansetron HCl (Zofran) 4 mg Q6HP PRN PO NAUSEA 04/03/19 17:15 04/05/19 11:19 DC 04/05/19 01:55 Oxycodone HCl (Roxicodone, Oxyir) 5 mg Q4HP PRN PO PAIN 04/03/19 17:15 04/04/19 10:41 DC Pantoprazole Sodium (Protonix) 40 mg BID PO 04/03/19 21:00 04/05/19 09:53 Pantoprazole Sodium (Protonix) 40 mg QHS PO 04/03/19 21:00 04/03/19 19:06 DC Potassium Chloride (Micro-K Extencaps) 20 meq DAILY PO 04/04/19 09:00 04/05/19 09:49 Prednisone (Deltasone) 5 mg BID PO 04/05/19 09:00 04/04/19 21:58 DC Prednisone (Deltasone) 5 mg DAILY PO 04/05/19 09:00 04/05/19 09:50 Prednisone (Deltasone) 30 mg BID PO 04/05/19 09:00 04/04/19 21:58 DC Prednisone (Deltasone) 30 mg DAILY PO 04/05/19 09:00 04/05/19 09:50 Prednisone (Deltasone) 40 mg DAILY PO 04/04/19 09:00 04/04/19 12:49 DC 04/04/19 07:47 Propranolol HCl (Inderal) 5 mg TID PO 04/03/19 21:00 04/04/19 10:41 DC 04/04/19 07:50 Propranolol HCl (Inderal) 10 mg TID PO 04/04/19 16:00 04/05/19 16:47 Ropinirole HCl (Requip) 1 mg QHS PO 04/03/19 21:00 04/04/19 21:31 Senna (Senokot) 1 tab QHS PO 04/03/19 21:00 04/03/19 21:05 Sertraline HCl (Zoloft) 50 mg DAILY PO 04/04/19 09:00 04/05/19 09:52 Zolpidem Tartrate (Ambien) 5 mg QHSP PRN PO INSOMNIA 04/03/19 17:15 04/04/19 11:09 DC 04/03/19 21:33 Zolpidem Tartrate (Ambien) 10 mg QHSP PRN PO INSOMNIA 04/04/19 11:15 04/04/19 23:35 ARMANDO HARRELL MD Apr 05, 2019 19:04
[2019-04-05 19:50] VITALS: BP 136/85
[2019-04-05] MEDS: rOPINIRole 1MG TAB PO SCH (21:52)
[2019-04-05] MEDS: SENNA 8.6 MG TAB (SENOKOT) PO SCH (21:53)
[2019-04-05] MEDS: zolPIDEM TARTRATE 5 MG TAB PO PRN (23:18)
[2019-04-05] MEDS: CYCLOBENZAPRINE 5MG TABLET PO PRN (23:24)
[2019-04-06 06:00] VITALS: BP 135/78
[2019-04-06] MEDS: GABAPENTIN 300 MG CAP PO SCH ×3 (06:05→20:59)
[2019-04-06 07:20] LABS: HEMATOCRIT 42.3 % (42.0-52.0); HEMOGLOBIN 13.6 g/dl (13.5-17.5); MEAN CORPUSCULAR HEMOGLOBIN 29.7 pg (27.0-33.0); MEAN CORPUSCULAR HGB CONC 32.2 g/dl (32.0-36.5); MEAN CORPUSCULAR VOLUME 92.4 fl (80.0-96.0); PLATELET COUNT, AUTOMATED 291 10^3/uL (150-450); RED BLOOD COUNT 4.58 10^6/uL (4.30-6.10); WHITE BLOOD COUNT 10.7 10^3/uL (4.0-10.0)
[2019-04-06] MEDS: SYMBICORT 160/4.5MCG INHALER 6GM INH SCH ×2 (07:24→19:04)
[2019-04-06] MEDS: IPRATROPIUM 0.02% SOLN 0.5MG/2.5 ML NEB INH SCH ×3 (07:25→19:04)
[2019-04-06] MEDS: HumaLOG INSULIN (NovoLOG) PER UNIT SC SCH ×4 (07:30→21:00)
[2019-04-06] MEDS: CALCITRIOL 0.25 MCG CAP (S0169) PO SCH (08:53)
[2019-04-06] MEDS: CALCIUM CARBONATE 500 MG CHEW U/D PO SCH ×3 (08:53→17:57)
[2019-04-06] MEDS: PANTOPRAZOLE 40MG TAB (PROTONIX) PO SCH ×2 (08:53→20:59)
[2019-04-06] MEDS: DOCUSATE SODIUM 100 MG CAP PO SCH ×2 (08:53→21:00)
[2019-04-06] MEDS: LORATADINE 10 MG TAB PO SCH (08:53)
[2019-04-06] MEDS: PROPRANOLOL 10 MG TAB PO SCH ×3 (08:53→21:00)
[2019-04-06] MEDS: predniSONE 10 MG TAB PO SCH (08:54)
[2019-04-06] MEDS: ASPIRIN 81 MG ENTERIC TAB PO SCH (08:54)
[2019-04-06] MEDS: BACLOFEN 5MG PER 1/2 TABLET PO SCH ×3 (08:54→20:59)
[2019-04-06] MEDS: POTASSIUM CHLORIDE 10 MEQ SR TABLET PO SCH (08:54)
[2019-04-06] MEDS: POLYVINYL ALCOHOL OPHTH SOLN 15 ML(LIQUITEARS) OS SCH ×3 (08:55→21:01)
[2019-04-06] MEDS: predniSONE 5 MG TAB PO SCH (08:55)
[2019-04-06] MEDS: ENOXAPARIN 40 MG/0.4 ML SYRINGE (J1650) SC SCH (08:55)
[2019-04-06] MEDS: FLUTICASONE PROP 0.05% NASAL SPRAY 16 GM (FLONASE) NARES SCH ×2 (08:55→21:01)
[2019-04-06] MEDS: SERTRALINE HCL 50 MG TAB PO SCH (08:55)
[2019-04-06] MEDS: amLODIPine 5 MG TAB PO SCH (08:55)
[2019-04-06 14:00] VITALS: BP 135/88
[2019-04-06 20:30] VITALS: BP 135/74
[2019-04-06] MEDS: rOPINIRole 1MG TAB PO SCH (21:00)
[2019-04-06] MEDS: SENNA 8.6 MG TAB (SENOKOT) PO SCH (21:00)
--- NOTE | 2019-04-06 21:00 | REPVR ---
PROCEDURE INFORMATION: Exam: US Duplex Lower Extremity Veins Exam date and time: 04/06/2019 7:58 PM Clinical history: 43 years old, male; Pain; Leg, lower; Left; Additional info: Calf tenderness TECHNIQUE: Imaging protocol: Real-time duplex ultrasound of the Lower Extremities with 2-D arenas scale, color Doppler flow and spectral waveform analysis with image documentation. Complete exam focused on the bilateral lower extremity veins. COMPARISON: No relevant prior studies available. FINDINGS: Right deep veins: Unremarkable. The common femoral, femoral, proximal profunda femoral and popliteal veins are patent without thrombus. Normal Doppler waveforms. Normal compressibility and/or augmentation response. Right superficial veins: Saphenofemoral junction is patent without thrombus. Left deep veins: Unremarkable. The common femoral, femoral, proximal profunda femoral and popliteal veins are patent without thrombus. Normal Doppler waveforms. Normal compressibility and/or augmentation response. Left superficial veins: Saphenofemoral junction is patent without thrombus. Soft tissues: Unremarkable. IMPRESSION: No DVT of bilateral lower extremity veins. Electronically signed by: Geradr Dumont On 04/06/2019 21:00:26 PM
[2019-04-06] MEDS: zolPIDEM TARTRATE 5 MG TAB PO PRN (23:07)
[2019-04-06] MEDS: CYCLOBENZAPRINE 5MG TABLET PO PRN (23:07)
[2019-04-07 06:00] VITALS: BP 125/82
[2019-04-07] MEDS: GABAPENTIN 300 MG CAP PO SCH ×3 (06:30→20:54)
[2019-04-07] MEDS: HumaLOG INSULIN (NovoLOG) PER UNIT SC SCH ×4 (07:30→20:57)
[2019-04-07] MEDS: IPRATROPIUM 0.02% SOLN 0.5MG/2.5 ML NEB INH SCH ×3 (07:56→20:00)
[2019-04-07] MEDS: SYMBICORT 160/4.5MCG INHALER 6GM INH SCH ×2 (07:57→20:26)
[2019-04-07] MEDS: BACLOFEN 5MG PER 1/2 TABLET PO SCH ×3 (09:16→20:53)
[2019-04-07] MEDS: SERTRALINE HCL 50 MG TAB PO SCH (09:16)
[2019-04-07] MEDS: POTASSIUM CHLORIDE 10 MEQ SR TABLET PO SCH (09:16)
[2019-04-07] MEDS: amLODIPine 5 MG TAB PO SCH (09:16)
[2019-04-07] MEDS: predniSONE 10 MG TAB PO SCH (09:16)
[2019-04-07] MEDS: predniSONE 5 MG TAB PO SCH (09:16)
[2019-04-07] MEDS: PANTOPRAZOLE 40MG TAB (PROTONIX) PO SCH ×2 (09:16→20:53)
[2019-04-07] MEDS: CALCIUM CARBONATE 500 MG CHEW U/D PO SCH ×3 (09:16→17:23)
[2019-04-07] MEDS: CALCITRIOL 0.25 MCG CAP (S0169) PO SCH (09:16)
[2019-04-07] MEDS: PROPRANOLOL 10 MG TAB PO SCH ×3 (09:16→20:53)
[2019-04-07] MEDS: DOCUSATE SODIUM 100 MG CAP PO SCH ×2 (09:16→20:53)
[2019-04-07] MEDS: ENOXAPARIN 40 MG/0.4 ML SYRINGE (J1650) SC SCH (09:17)
[2019-04-07] MEDS: FLUTICASONE PROP 0.05% NASAL SPRAY 16 GM (FLONASE) NARES SCH ×2 (09:17→20:56)
[2019-04-07] MEDS: LORATADINE 10 MG TAB PO SCH (09:17)
[2019-04-07] MEDS: ASPIRIN 81 MG ENTERIC TAB PO SCH (09:17)
[2019-04-07] MEDS: POLYVINYL ALCOHOL OPHTH SOLN 15 ML(LIQUITEARS) OS SCH ×3 (09:17→20:56)
[2019-04-07 14:00] VITALS: BP 152/89
[2019-04-07] MEDS: rOPINIRole 1MG TAB PO SCH (20:53)
[2019-04-07] MEDS: SENNA 8.6 MG TAB (SENOKOT) PO SCH (20:53)
[2019-04-07 22:00] VITALS: BP 159/95
[2019-04-07] MEDS: CYCLOBENZAPRINE 5MG TABLET PO PRN (23:48)
[2019-04-07] MEDS: zolPIDEM TARTRATE 5 MG TAB PO PRN (23:49)
[2019-04-08] MEDS: GABAPENTIN 300 MG CAP PO SCH ×3 (05:43→21:04)
[2019-04-08 06:02] VITALS: BP 168/94
[2019-04-08] MEDS: IPRATROPIUM 0.02% SOLN 0.5MG/2.5 ML NEB INH SCH ×3 (07:51→19:53)
[2019-04-08] MEDS: SYMBICORT 160/4.5MCG INHALER 6GM INH SCH ×2 (07:51→19:53)
[2019-04-08] MEDS: predniSONE 10 MG TAB PO SCH (08:37)
[2019-04-08] MEDS: BACLOFEN 5MG PER 1/2 TABLET PO SCH ×3 (08:37→21:10)
[2019-04-08] MEDS: LORATADINE 10 MG TAB PO SCH (08:37)
[2019-04-08] MEDS: predniSONE 5 MG TAB PO SCH (08:37)
[2019-04-08] MEDS: DOCUSATE SODIUM 100 MG CAP PO SCH ×2 (08:37→21:10)
[2019-04-08] MEDS: CALCITRIOL 0.25 MCG CAP (S0169) PO SCH (08:37)
[2019-04-08] MEDS: CALCIUM CARBONATE 500 MG CHEW U/D PO SCH ×3 (08:37→17:23)
[2019-04-08] MEDS: ASPIRIN 81 MG ENTERIC TAB PO SCH (08:37)
[2019-04-08] MEDS: amLODIPine 5 MG TAB PO SCH (08:38)
[2019-04-08] MEDS: FLUTICASONE PROP 0.05% NASAL SPRAY 16 GM (FLONASE) NARES SCH ×2 (08:38→21:10)
[2019-04-08] MEDS: PROPRANOLOL 10 MG TAB PO SCH ×3 (08:38→21:09)
[2019-04-08] MEDS: SERTRALINE HCL 50 MG TAB PO SCH (08:38)
[2019-04-08] MEDS: POTASSIUM CHLORIDE 10 MEQ SR TABLET PO SCH (08:38)
[2019-04-08] MEDS: ENOXAPARIN 40 MG/0.4 ML SYRINGE (J1650) SC SCH (08:38)
[2019-04-08] MEDS: PANTOPRAZOLE 40MG TAB (PROTONIX) PO SCH ×2 (08:38→21:05)
[2019-04-08] MEDS: POLYVINYL ALCOHOL OPHTH SOLN 15 ML(LIQUITEARS) OS SCH ×3 (08:39→21:11)
[2019-04-08] MEDS: HumaLOG INSULIN (NovoLOG) PER UNIT SC SCH ×4 (08:39→20:31)
[2019-04-08 10:56] VITALS: BP 132/92
[2019-04-08] MEDS: METOPROLOL SUCC (TopROL XL) 50MG **XL** TAB PO SCH (10:58)
[2019-04-08 11:46] LABS: BASO % 0.3 % (0.0-1.0); EOS # 0.1 10^3/uL (0.0-0.5); EOS % 1.2 % (0.0-3.0); HEMATOCRIT 40.7 % (42.0-52.0); HEMOGLOBIN 13.1 g/dl (13.5-17.5); LYMPH # 2.4 10^3/uL (1.5-5.0); LYMPH % 23.4 % (24.0-44.0); MEAN CORPUSCULAR HEMOGLOBIN 29.7 pg (27.0-33.0); MEAN CORPUSCULAR HGB CONC 32.2 g/dl (32.0-36.5); MEAN CORPUSCULAR VOLUME 92.3 fl (80.0-96.0); MONO # 0.6 10^3/uL (0.0-0.8); MONO % 6.3 % (0.0-5.0); NEUTROPHILS # 6.8 10^3/uL (1.5-8.5); NEUTROPHILS % 67.5 % (36.0-66.0); PLATELET COUNT, AUTOMATED 313 10^3/uL (150-450); RED BLOOD COUNT 4.41 10^6/uL (4.30-6.10)
--- NOTE | 2019-04-08 11:54 | IPNPDOC ---
PM&R Progress Note DATE OF SERVICE: Apr 08, 2019 Abstract Clerk Progress Note Subjective: Patient reporting his eye is feeling better. He wants to know if he can try a different sleep aid as the ambien is not working. REVIEW OF SYSTEMS: The following is a completed review of systems and has been reviewed. Review of systems otherwise unremarkable. PAIN: Patient self reports burning pain in his bilateral feet EYES: No recent vision changes, +left eye irritation EARS, NOSE, & THROAT: No throat pain, or dysphagia, or rhinorrhea CARDIOVASCULAR: Denies chest pain or palpitations PULMONARY: Denies shortness of breath at rest GASTROINTESTINAL: Denies constipation/diarrhea GENITOURINARY: denies dysuria MUSCULOSKELETAL: left sided weakness and muscle spasms NEUROLOGICAL:left sided weakness with gait instability HEMATOLOGICAL: denies easy bruising SKIN: no rash PSYCHIATRIC: Unremarkable All other review of systems found to be negative. PHYSICAL EXAMINATION: VITAL SIGNS: Please see below. GENERAL: Pleasant and cooperative. No acute distress. Alert and oriented times three HEENT: PERRL. Extraocular movements intact. no conjunctival injection CARDIOVASCULAR: Regular rate and rhythm. No murmurs, rubs, or gallops LUNGS: decreased inspiratory efforts, No wheezes. No rhonchi ABDOMEN: Soft, nontender, nondistended. Positive bowel sounds. Normal active bowel sounds NEUROLOGICAL: Alert and oriented times three. Cranial nerves II through XII grossly intact. Sensation diminished to light touch left LE and left UE (-) clonus, (-) Babinski (+) bilat LE muscle jerking with voluntary movements (improving) EXTREMITIES: 5\5 strength right UE, 5-/5 LUE 5\5 strength right lower extremity. 5-/5 strength in left lower extremity. 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 Rehab: PT/OT- strengthen/stretch/maintain ROM all 4lextremities, advance gait, improve endurance, optimize ADL management 2. Neuro: recent diagnosis of CIDP with left sided weakness, neuromuscular re spiratory failure, with gait impairment s/p IVIG and IV steroids, continue prednisone and taper slowly, long-term steroid use may cause steroid induced myopathy, however cannot stop abruptly to avoid adrenal insufficiency, will need further neuro work-up -f/u with Dr. Davis as outpatient 3. Resp: encourage incentive spirometry, Ipratropium nebs, c/u Symbicort and oral steroids, monitor for infection -s/p recent RF in setting of human metapneumovirus and subsequent diagnosed with Rhinovirus 4. Cardiac: HTN c/u Amlodipine, will start Metoprolol Succinate 50 qd -c/u propranolol for likely steroid related anxiety manifesting with tachycardia -medicine consulted to assist in management 5. Endo: c/u ISS while on high dose steroids 6. Pain: c/u gabapentin increased to 600mg TID, c/u baclofen for spasms, discussed with patient Flexeril qHS prn -c/u requip for leg shaking 7.Psych: c/u ZOloft for depression and ambien for insomnia, will add trazodone and change Zoloft dosing to qHS as not responding well to ambien 8. DVT ppx: lovenox, dopplers negative for DVT 9. GI ppx: protonix 10. Ophthalmology- patient with mild left conjunctival irritation with eyelid erythema, c/u start artificial tears, warm-moist compresses, flonase, and Claritin for likely allergic manifestation-improving overall 11. Dispo: tbd Allergies Coded Allergies: TAPE (Verified Allergy, Intermediate, HIVES, 04/03/19) PLASTIC TAPE, PAPER TAPE [place] silver (Verified Allergy, Intermediate, HIVES, 04/03/19) Vital Signs Vital Signs Date Time Temp Pulse Resp B/P (MAP) Pulse Ox O2 Delivery O2 Flow Rate FiO2 04/08/19 10:58 90 132/92 04/08/19 06:02 97.3 16 91 Room Air 04/04/19 06:30 0.0 Laboratory Data CBC/BMP Laboratory Tests 04/08/19 11:09 Labs 24H Laboratory Tests 2 04/07/19 17:02: Bedside Glucose (Misc Panel) 118H 04/07/19 20:51: Bedside Glucose (Misc Panel) 121H 04/08/19 06:15: Bedside Glucose (Misc Panel) 107H 04/08/19 11:09: Immature Granulocyte % (Auto) 1.3, Neutrophils (%) (Auto) 67.5H, Lymphocytes (%) (Auto) 23.4L, Monocytes (%) (Auto) 6.3H, Eosinophils (%) (Auto) 1.2, Basophils (%) (Auto) 0.3, Neutrophils # (Auto) 6.8, Lymphocytes # (Auto) 2.4, Monocytes # (Auto) 0.6, Eosinophils # (Auto) 0.1, Basophils # (Auto) 0.0, Nucleated Red Blood Cells % (auto) 0.0 Microbiology Microbiology 04/08/19 Stool Occult Blood (PHYLLIS) - Final, Complete Current Medications Current Medications Current Medications Medications (Trade) Dose Ordered Sig/Karena Route PRN Reason Start Time Stop Time Status Last Admin Dose Admin Acetaminophen (Tylenol Tab) 650 mg Q4HP PRN PO MILD PAIN (PS 1-4) 04/03/19 17:15 04/06/19 12:00 Al Hydrox/Mg Hydrox/Simethicone (Mylanta) 30 ml Q4HP PRN PO HEARTBURN 04/05/19 10:15 Amlodipine Besylate (Norvasc) 2.5 mg DAILY PO 04/04/19 09:00 04/04/19 16:26 DC 04/04/19 07:48 Amlodipine Besylate (Norvasc) 5 mg DAILY PO 04/05/19 09:00 04/08/19 08:38 Artificial Tears (Akwa Tears) 2 drop TID OS 04/05/19 16:00 04/08/19 08:39 Aspirin (Ecotrin) 81 mg DAILY PO 04/04/19 09:00 04/08/19 08:37 Baclofen (Lioresal) 5 mg TID PO 04/04/19 09:00 04/08/19 08:37 Bisacodyl (Dulcolax Suppository) [address] CONSTIPATION 04/03/19 17:15 Budesonide/ Formoterol Fumarate (Symbicort 160/ 4.5mcg) 2 puff BID INH 04/03/19 21:00 04/08/19 07:51 Calcitriol (Rocaltrol) 0.25 mcg DAILY PO 04/04/19 09:00 04/08/19 08:37 Calcium Carbonate (Tums) 500 mg WM PO 04/03/19 18:00 04/08/19 08:37 Cyclobenzaprine HCl (Flexeril) 5 mg Q6HP PRN PO SPASMS 04/03/19 17:15 04/04/19 10:36 DC 04/04/19 06:54 Cyclobenzaprine HCl (Flexeril) 5 mg QHS PRN PO SPASMS 04/05/19 10:30 04/07/19 23:48 Dextrose (Dextrose 50%) 25 ml ASDIRECTED PRN IV SEE LABEL COMMENTS 04/04/19 11:15 Docusate Sodium (Colace) 100 mg BID PO 04/03/19 21:00 04/08/19 08:37 Enoxaparin Sodium (Lovenox) 40 mg DAILY SC 04/04/19 09:00 04/08/19 08:38 Fluticasone Propionate (Flonase 0.05% Nasal [place]) 1 spray BID NARES 04/05/19 15:45 04/08/19 08:38 Gabapentin (Neurontin) 300 mg BID@0600,1500 PO 04/05/19 15:00 04/06/19 16:51 DC 04/06/19 15:15 Gabapentin (Neurontin) 300 mg BID@0900,1500 PO 04/05/19 15:00 04/05/19 12:32 DC Gabapentin (Neurontin) 300 mg TID PO 04/03/19 21:00 04/05/19 10:25 DC 04/05/19 09:51 Gabapentin (Neurontin) 600 mg BID@0600,1500 PO 04/07/19 06:00 04/08/19 05:43 Gabapentin (Neurontin) 600 mg QHS PO 04/05/19 21:00 04/07/19 20:54 Glucagon (Glucagon) 1 mg ASDIRECTED PRN SC SEE LABEL COMMENTS 04/04/19 11:15 Glucose (Glucose) 16 GM ASDIRECTED PRN PO SEE LABEL COMMENTS 04/04/19 11:15 Home Med (Med Rec Complete!) ASDIRECTED XX 04/03/19 18:15 04/03/19 19:02 DC Insulin Human Lispro (HumaLOG INSULIN) SEE PROTOCOL TABLE AC SC 04/04/19 12:00 04/08/19 08:39 Insulin Human Lispro (HumaLOG INSULIN) SEE PROTOCOL TABLE QHS SC 04/04/19 21:00 Ipratropium [place] (Atrovent 0.02%) 0.25 mg RTID INH 04/04/19 20:00 04/07/19 13:10 Loratadine (Claritin) 10 mg DAILY PO 04/05/19 15:45 04/08/19 08:37 Metoprolol Succinate (TopROL XL) 50 mg DAILY PO 04/08/19 09:00 04/08/19 10:58 Ondansetron HCl (Zofran Odt) 4 mg Q4HP PRN PO NAUSEA OR VOMITING 04/05/19 11:30 Ondansetron HCl (Zofran) 4 mg Q6HP PRN PO NAUSEA 04/03/19 17:15 04/05/19 11:19 DC 04/05/19 01:55 Oxycodone HCl (Roxicodone, Oxyir) 5 mg Q4HP PRN PO PAIN 04/03/19 17:15 04/04/19 10:41 DC Pantoprazole Sodium (Protonix) 40 mg BID PO 04/03/19 21:00 04/08/19 08:38 Pantoprazole Sodium (Protonix) 40 mg QHS PO 04/03/19 21:00 04/03/19 19:06 DC Potassium Chloride (Micro-K Extencaps) 20 meq DAILY PO 04/04/19 09:00 04/08/19 08:38 Prednisone (Deltasone) 5 mg BID PO 04/05/19 09:00 04/04/19 21:58 DC Prednisone (Deltasone) 5 mg DAILY PO 04/05/19 09:00 04/11/19 21:00 04/08/19 08:37 Prednisone (Deltasone) 30 mg BID PO 04/05/19 09:00 04/04/19 21:58 DC Prednisone (Deltasone) 30 mg DAILY PO 04/05/19 09:00 04/11/19 21:00 04/08/19 08:37 Prednisone (Deltasone) 30 mg DAILY PO 04/12/19 09:00 Prednisone (Deltasone) 40 mg DAILY PO 04/04/19 09:00 04/04/19 12:49 DC 04/04/19 07:47 Propranolol HCl (Inderal) 5 mg TID PO 04/03/19 21:00 04/04/19 10:41 DC 04/04/19 07:50 Propranolol HCl (Inderal) 10 mg TID PO 04/04/19 16:00 04/08/19 08:38 Ropinirole HCl (Requip) 1 mg QHS PO 04/03/19 21:00 04/07/19 20:53 Senna (Senokot) 1 tab QHS PO 04/03/19 21:00 04/07/19 20:53 Sertraline HCl (Zoloft) 50 mg DAILY PO 04/04/19 09:00 04/08/19 08:38 Zolpidem Tartrate (Ambien) 5 mg QHSP PRN PO INSOMNIA 04/03/19 17:15 04/04/19 11:09 DC 04/03/19 21:33 Zolpidem Tartrate (Ambien) 10 mg QHSP PRN PO INSOMNIA 04/04/19 11:15 04/07/19 23:49 ARMANDO HARRELL MD Apr 08, 2019 11:54
[2019-04-08 12:08] LABS: BLOOD UREA NITROGEN 16 MG/DL (7-18); CALCIUM LEVEL 9.4 MG/DL (8.5-10.1); CARBON DIOXIDE LEVEL 26 MEQ/L (21-32); CHLORIDE LEVEL 102 MEQ/L (98-107); CREATININE FOR GFR 1.07 MG/DL (0.70-1.30); GLOMERULAR FILTRATION RATE > 60.0 (>60); GLUCOSE, FASTING 102 MG/DL (70-100); POTASSIUM SERUM 3.9 MEQ/L (3.5-5.1); SODIUM LEVEL 138 MEQ/L (136-145)
[2019-04-08 14:00] VITALS: BP 142/93
[2019-04-08 20:15] VITALS: BP 140/80
[2019-04-08] MEDS: SENNA 8.6 MG TAB (SENOKOT) PO SCH (21:05)
[2019-04-08] MEDS: rOPINIRole 1MG TAB PO SCH (21:10)
[2019-04-09] MEDS: zolPIDEM TARTRATE 5 MG TAB PO PRN ×2 (00:31→22:13)
[2019-04-09] MEDS: CYCLOBENZAPRINE 5MG TABLET PO PRN ×2 (00:31→22:13)
[2019-04-09] MEDS: traZODone 25MG PER 1/2 TABLET PO SCH ×2 (00:31→22:13)
[2019-04-09 06:40] VITALS: BP 153/98
[2019-04-09] MEDS: GABAPENTIN 300 MG CAP PO SCH ×3 (06:43→20:59)
[2019-04-09 06:52] LABS: HEMATOCRIT 39.2 % (42.0-52.0); HEMOGLOBIN 12.7 g/dl (13.5-17.5); MEAN CORPUSCULAR HEMOGLOBIN 30.2 pg (27.0-33.0); MEAN CORPUSCULAR HGB CONC 32.4 g/dl (32.0-36.5); MEAN CORPUSCULAR VOLUME 93.1 fl (80.0-96.0); PLATELET COUNT, AUTOMATED 286 10^3/uL (150-450); RED BLOOD COUNT 4.21 10^6/uL (4.30-6.10); WHITE BLOOD COUNT 10.2 10^3/uL (4.0-10.0)
[2019-04-09] MEDS: HumaLOG INSULIN (NovoLOG) PER UNIT SC SCH ×4 (07:30→21:00)
[2019-04-09] MEDS: IPRATROPIUM 0.02% SOLN 0.5MG/2.5 ML NEB INH SCH ×3 (07:42→20:12)
[2019-04-09] MEDS: SYMBICORT 160/4.5MCG INHALER 6GM INH SCH ×2 (07:42→20:13)
[2019-04-09] MEDS: BACLOFEN 5MG PER 1/2 TABLET PO SCH ×3 (08:34→20:59)
[2019-04-09] MEDS: ENOXAPARIN 40 MG/0.4 ML SYRINGE (J1650) SC SCH (08:34)
[2019-04-09] MEDS: METOPROLOL SUCC (TopROL XL) 50MG **XL** TAB PO SCH (08:34)
[2019-04-09] MEDS: ASPIRIN 81 MG ENTERIC TAB PO SCH (08:35)
[2019-04-09] MEDS: DOCUSATE SODIUM 100 MG CAP PO SCH ×2 (08:35→20:59)
[2019-04-09] MEDS: predniSONE 5 MG TAB PO SCH (08:35)
[2019-04-09] MEDS: PANTOPRAZOLE 40MG TAB (PROTONIX) PO SCH ×2 (08:35→20:59)
[2019-04-09] MEDS: POTASSIUM CHLORIDE 10 MEQ SR TABLET PO SCH (08:35)
[2019-04-09] MEDS: predniSONE 10 MG TAB PO SCH (08:35)
[2019-04-09] MEDS: CALCITRIOL 0.25 MCG CAP (S0169) PO SCH (08:35)
[2019-04-09] MEDS: LORATADINE 10 MG TAB PO SCH (08:35)
[2019-04-09] MEDS: CALCIUM CARBONATE 500 MG CHEW U/D PO SCH ×3 (08:36→17:42)
[2019-04-09] MEDS: PROPRANOLOL 10 MG TAB PO SCH (08:36)
[2019-04-09] MEDS: amLODIPine 5 MG TAB PO SCH (08:36)
[2019-04-09] MEDS: POLYVINYL ALCOHOL OPHTH SOLN 15 ML(LIQUITEARS) OS SCH ×3 (08:41→21:00)
[2019-04-09] MEDS: FLUTICASONE PROP 0.05% NASAL SPRAY 16 GM (FLONASE) NARES SCH ×2 (08:41→21:00)
[2019-04-09] MEDS: hydroCHLOROthiazide 25 MG TAB PO SCH (12:21)
[2019-04-09 14:00] VITALS: BP 159/95
[2019-04-09] MEDS ORDERED: LUNE2TAB23 PO (18:11)
[2019-04-09] MEDS: SERTRALINE HCL 50 MG TAB PO SCH (20:59)
[2019-04-09] MEDS: rOPINIRole 1MG TAB PO SCH (20:59)
[2019-04-09] MEDS: SENNA 8.6 MG TAB (SENOKOT) PO SCH (20:59)
[2019-04-09 22:00] VITALS: BP 138/86
[2019-04-10] MEDS: GABAPENTIN 300 MG CAP PO SCH ×3 (05:39→21:40)
[2019-04-10] MEDS: HumaLOG INSULIN (NovoLOG) PER UNIT SC SCH ×4 (07:30→19:50)
[2019-04-10] MEDS: SYMBICORT 160/4.5MCG INHALER 6GM INH SCH ×2 (07:40→19:26)
[2019-04-10] MEDS: IPRATROPIUM 0.02% SOLN 0.5MG/2.5 ML NEB INH SCH ×3 (07:40→19:26)
[2019-04-10] MEDS: BACLOFEN 5MG PER 1/2 TABLET PO SCH ×3 (08:19→21:40)
[2019-04-10] MEDS: CALCIUM CARBONATE 500 MG CHEW U/D PO SCH ×3 (08:19→17:22)
[2019-04-10] MEDS: ASPIRIN 81 MG ENTERIC TAB PO SCH (08:19)
[2019-04-10] MEDS: PANTOPRAZOLE 40MG TAB (PROTONIX) PO SCH ×2 (08:19→21:39)
[2019-04-10] MEDS: CALCITRIOL 0.25 MCG CAP (S0169) PO SCH (08:19)
[2019-04-10] MEDS: predniSONE 5 MG TAB PO SCH (08:19)
[2019-04-10] MEDS: ENOXAPARIN 40 MG/0.4 ML SYRINGE (J1650) SC SCH (08:19)
[2019-04-10] MEDS: LORATADINE 10 MG TAB PO SCH (08:20)
[2019-04-10] MEDS: hydroCHLOROthiazide 25 MG TAB PO SCH (08:20)
[2019-04-10] MEDS: FLUTICASONE PROP 0.05% NASAL SPRAY 16 GM (FLONASE) NARES SCH ×2 (08:20→21:43)
[2019-04-10] MEDS: DOCUSATE SODIUM 100 MG CAP PO SCH ×2 (08:20→21:39)
[2019-04-10] MEDS: POTASSIUM CHLORIDE 10 MEQ SR TABLET PO SCH (08:20)
[2019-04-10] MEDS: predniSONE 10 MG TAB PO SCH (08:20)
[2019-04-10] MEDS: METOPROLOL SUCC (TopROL XL) 100MG *XL* TAB PO SCH (08:20)
[2019-04-10] MEDS: POLYVINYL ALCOHOL OPHTH SOLN 15 ML(LIQUITEARS) OS SCH ×3 (08:20→21:43)
--- NOTE | 2019-04-10 12:14 | IPNPDOC ---
PM&R Progress Note DATE OF SERVICE: Apr 09, 2019 [employer] Progress Note Subjective: Patient reporting he slept well and is going to trial the K5 wheelchair today. He is in good spirits. REVIEW OF SYSTEMS: The following is a completed review of systems and has been reviewed. Review of systems otherwise unremarkable. PAIN: Patient self reports burning pain in his bilateral feet EYES: No recent vision changes, +left eye irritation EARS, NOSE, & THROAT: No throat pain, or dysphagia, or rhinorrhea CARDIOVASCULAR: Denies chest pain or palpitations PULMONARY: Denies shortness of breath at rest GASTROINTESTINAL: Denies constipation/diarrhea GENITOURINARY: denies dysuria MUSCULOSKELETAL: left sided weakness and muscle spasms NEUROLOGICAL:left sided weakness with gait instability HEMATOLOGICAL: denies easy bruising SKIN: no rash PSYCHIATRIC: Unremarkable All other review of systems found to be negative. PHYSICAL EXAMINATION: VITAL SIGNS: Please see below. GENERAL: Pleasant and cooperative. No acute distress. Alert and oriented times three HEENT: PERRL. Extraocular movements intact. no conjunctival injection CARDIOVASCULAR: Regular rate and rhythm. No murmurs, rubs, or gallops LUNGS: decreased inspiratory efforts, No wheezes. No rhonchi ABDOMEN: Soft, nontender, nondistended. Positive bowel sounds. Normal active bowel sounds NEUROLOGICAL: Alert and oriented times three. Cranial nerves II through XII grossly intact. Sensation diminished to light touch left LE and left UE (-) clonus, (-) Babinski (+) bilat LE muscle jerking with voluntary movements (improving) EXTREMITIES: 5\5 strength right UE, 5-/5 LUE 5\5 strength right lower extremity. 5-/5 strength in left lower extremity. 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 Rehab: PT/OT- strengthen/stretch/maintain ROM all 4lextremities, advance g ait, improve endurance, optimize ADL management 2. Neuro: recent diagnosis of CIDP with left sided weakness, neuromuscular respi ratory failure, with gait impairment s/p IVIG and IV steroids, continue prednisone and taper slowly, long-term steroid use may cause steroid induced myopathy, however cannot stop abruptly to avoid adrenal insufficiency, will need further neuro work-up -f/u with Dr. Davis as outpatient 3. Resp: encourage incentive spirometry, Ipratropium nebs, c/u Symbicort and oral steroids, monitor for infection -s/p recent RF in setting of human metapneumovirus and subsequent diagnosed with Rhinovirus-stable 4. Cardiac: HTN c/u Amlodipine, will increase Metoprolol Succinate 50 for elevated BPs -d/c propranolol -medicine consulted to assist in management 5. Endo: c/u ISS while on high dose steroids 6. Pain: c/u gabapentin increased to 600mg TID, c/u baclofen for spasms, d iscussed with patient Flexeril qHS prn -c/u requip for leg shaking 7.Psych: c/u Zoloft for depression and ambien for insomnia, c/u trazodone and Zoloft qHS 8. DVT ppx: lovenox, dopplers negative for DVT 9. GI ppx: protonix 10. Ophthalmology- conjunctival injection resolved- c/u Claritin, eye drops and flonse 11. Dispo: tbd Allergies Coded Allergies: TAPE (Verified Allergy, Intermediate, HIVES, 04/03/19) PLASTIC TAPE, PAPER TAPE [place] silver (Verified Allergy, Intermediate, HIVES, 04/03/19) Vital Signs Vital Signs Date Time Temp Pulse Resp B/P (MAP) Pulse Ox O2 Delivery O2 Flow Rate FiO2 04/10/19 08:20 106 140/80 04/09/19 22:00 97.5 16 96 Room Air 04/04/19 06:30 0.0 Laboratory Data Labs 24H Laboratory Tests 2 04/09/19 16:42: Bedside Glucose (Misc Panel) 156H 04/09/19 20:12: Bedside Glucose (Misc Panel) 129H 04/10/19 06:35: Bedside Glucose (Misc Panel) 101 Microbiology Microbiology 04/08/19 Stool Occult Blood (PHYLLIS) - Final, Complete Current Medications Current Medications Current Medications Medications (Trade) Dose Ordered Sig/Karena Route PRN Reason Start Time Stop Time Status Last Admin Dose Admin Acetaminophen (Tylenol Tab) 650 mg Q4HP PRN PO MILD PAIN (PS 1-4) 04/03/19 17:15 04/06/19 12:00 Al Hydrox/Mg Hydrox/Simethicone (Mylanta) 30 ml Q4HP PRN PO HEARTBURN 04/05/19 10:15 Amlodipine Besylate (Norvasc) 2.5 mg DAILY PO 04/04/19 09:00 04/04/19 16:26 DC 04/04/19 07:48 Amlodipine Besylate (Norvasc) 5 mg DAILY PO 04/05/19 09:00 04/09/19 10:56 DC 04/09/19 08:36 Artificial Tears (Akwa Tears) 2 drop TID OS 04/05/19 16:00 04/10/19 08:20 Aspirin (Ecotrin) 81 mg DAILY PO 04/04/19 09:00 04/10/19 08:19 Baclofen (Lioresal) 5 mg TID PO 04/04/19 09:00 04/10/19 08:19 Bisacodyl (Dulcolax Suppository) 10 mg DAILYPRN PRN [place] CONSTIPATION 04/03/19 17:15 Budesonide/ Formoterol Fumarate (Symbicort 160/ 4.5mcg) 2 puff BID INH 04/03/19 21:00 04/10/19 07:40 Calcitriol (Rocaltrol) 0.25 mcg DAILY PO 04/04/19 09:00 04/10/19 08:19 Calcium Carbonate (Tums) 500 mg WM PO 04/03/19 18:00 04/10/19 08:19 Cyclobenzaprine HCl (Flexeril) 5 mg Q6HP PRN PO SPASMS 04/03/19 17:15 04/04/19 10:36 DC 04/04/19 06:54 Cyclobenzaprine HCl (Flexeril) 5 mg QHS PRN PO SPASMS 04/05/19 10:30 04/09/19 22:13 Dextrose (Dextrose 50%) 25 ml ASDIRECTED PRN IV SEE LABEL COMMENTS 04/04/19 11:15 Docusate Sodium (Colace) 100 mg BID PO 04/03/19 21:00 04/10/19 08:20 Enoxaparin Sodium (Lovenox) 40 mg DAILY SC 04/04/19 09:00 04/10/19 08:19 Fluticasone Propionate (Flonase 0.05% Nasal [place]) 1 spray BID NARES 04/05/19 15:45 04/10/19 08:20 Gabapentin (Neurontin) 300 mg BID@0600,1500 PO 04/05/19 15:00 04/06/19 16:51 DC 04/06/19 15:15 Gabapentin (Neurontin) 300 mg BID@0900,1500 PO 04/05/19 15:00 04/05/19 12:32 DC Gabapentin (Neurontin) 300 mg TID PO 04/03/19 21:00 04/05/19 10:25 DC 04/05/19 09:51 Gabapentin (Neurontin) 600 mg BID@0600,1500 PO 04/07/19 06:00 04/10/19 05:39 Gabapentin (Neurontin) 600 mg QHS PO 04/05/19 21:00 04/09/19 20:59 Glucagon (Glucagon) 1 mg ASDIRECTED PRN SC SEE LABEL COMMENTS 04/04/19 11:15 Glucose (Glucose) 16 GM ASDIRECTED PRN PO SEE LABEL COMMENTS 04/04/19 11:15 Home Med (Med Rec Complete!) ASDIRECTED XX 04/03/19 18:15 04/03/19 19:02 DC Hydrochlorothiazide (Hydrodiuril) 25 mg DAILY PO 04/09/19 11:00 04/10/19 08:20 Insulin Human Lispro (HumaLOG INSULIN) SEE PROTOCOL TABLE AC SC 04/04/19 12:00 04/09/19 17:42 Insulin Human Lispro (HumaLOG INSULIN) SEE PROTOCOL TABLE QHS SC 04/04/19 21:00 Ipratropium [place] (Atrovent 0.02%) 0.25 mg RTID INH 04/04/19 20:00 04/10/19 07:40 Loratadine (Claritin) 10 mg DAILY PO 04/05/19 15:45 04/10/19 08:20 Metoprolol Succinate (TopROL XL) 50 mg DAILY PO 04/08/19 09:00 04/09/19 10:56 DC 04/09/19 08:34 Metoprolol Succinate (TopROL XL) 100 mg DAILY PO 04/10/19 09:00 04/10/19 08:20 Ondansetron HCl (Zofran Odt) 4 mg Q4HP PRN PO NAUSEA OR VOMITING 04/05/19 11:30 Ondansetron HCl (Zofran) 4 mg Q6HP PRN PO NAUSEA 04/03/19 17:15 04/05/19 11:19 DC 04/05/19 01:55 Oxycodone HCl (Roxicodone, Oxyir) 5 mg Q4HP PRN PO PAIN 04/03/19 17:15 04/04/19 10:41 DC Pantoprazole Sodium (Protonix) 40 mg BID PO 04/03/19 21:00 04/10/19 08:19 Pantoprazole Sodium (Protonix) 40 mg QHS PO 04/03/19 21:00 04/03/19 19:06 DC Potassium Chloride (Micro-K Extencaps) 20 meq DAILY PO 04/04/19 09:00 04/10/19 08:20 Prednisone (Deltasone) 5 mg BID PO 04/05/19 09:00 04/04/19 21:58 DC Prednisone (Deltasone) 5 mg DAILY PO 04/05/19 09:00 04/11/19 21:00 04/10/19 08:19 Prednisone (Deltasone) 30 mg BID PO 04/05/19 09:00 04/04/19 21:58 DC Prednisone (Deltasone) 30 mg DAILY PO 04/05/19 09:00 04/11/19 21:00 04/10/19 08:20 Prednisone (Deltasone) 30 mg DAILY PO 04/12/19 09:00 Prednisone (Deltasone) 40 mg DAILY PO 04/04/19 09:00 04/04/19 12:49 DC 04/04/19 07:47 Propranolol HCl (Inderal) 5 mg TID PO 04/03/19 21:00 04/04/19 10:41 DC 04/04/19 07:50 Propranolol HCl (Inderal) 10 mg TID PO 04/04/19 16:00 04/09/19 10:56 DC 04/09/19 08:36 Ropinirole HCl (Requip) 1 mg QHS PO 04/03/19 21:00 04/09/19 20:59 Senna (Senokot) 1 tab QHS PO 04/03/19 21:00 04/09/19 20:59 Sertraline HCl (Zoloft) 50 mg DAILY PO 04/04/19 09:00 04/08/19 11:55 DC 04/08/19 08:38 Sertraline HCl (Zoloft) 50 mg QHS PO 04/09/19 21:00 04/09/19 20:59 Trazodone HCl (Desyrel) 25 mg QHS PO 04/08/19 21:00 04/09/19 22:13 Zolpidem Tartrate (Ambien) 5 mg QHSP PRN PO INSOMNIA 04/03/19 17:15 04/04/19 11:09 DC 04/03/19 21:33 Zolpidem Tartrate (Ambien) 10 mg QHSP PRN PO INSOMNIA 04/04/19 11:15 04/09/19 22:13 ARMANDO HARRELL MD Apr 10, 2019 12:13
[2019-04-10 13:55] VITALS: BP 138/92
[2019-04-10] MEDS: ACETAMINOPHEN 500 MG TAB PO SCH ×2 (17:23→21:42)
[2019-04-10 20:00] VITALS: BP 148/95
[2019-04-10] MEDS: SERTRALINE HCL 50 MG TAB PO SCH (21:39)
[2019-04-10] MEDS: SENNA 8.6 MG TAB (SENOKOT) PO SCH (21:40)
[2019-04-10] MEDS: rOPINIRole 1MG TAB PO SCH (21:40)
[2019-04-10] MEDS: traZODone 25MG PER 1/2 TABLET PO SCH (23:22)
[2019-04-10] MEDS: CYCLOBENZAPRINE 5MG TABLET PO PRN (23:22)
[2019-04-10] MEDS: zolPIDEM TARTRATE 5 MG TAB PO PRN (23:45)
[2019-04-11 06:00] VITALS: BP 131/74
[2019-04-11] MEDS: GABAPENTIN 300 MG CAP PO SCH ×3 (06:40→20:41)
[2019-04-11] MEDS: SYMBICORT 160/4.5MCG INHALER 6GM INH SCH ×2 (07:22→20:18)
[2019-04-11] MEDS: IPRATROPIUM 0.02% SOLN 0.5MG/2.5 ML NEB INH SCH ×3 (07:22→20:17)
[2019-04-11] MEDS: HumaLOG INSULIN (NovoLOG) PER UNIT SC SCH ×4 (08:18→20:43)
[2019-04-11] MEDS: ENOXAPARIN 40 MG/0.4 ML SYRINGE (J1650) SC SCH (08:18)
[2019-04-11] MEDS: CALCIUM CARBONATE 500 MG CHEW U/D PO SCH ×3 (08:18→17:23)
[2019-04-11] MEDS: hydroCHLOROthiazide 25 MG TAB PO SCH (08:19)
[2019-04-11] MEDS: ASPIRIN 81 MG ENTERIC TAB PO SCH (08:20)
[2019-04-11] MEDS: CALCITRIOL 0.25 MCG CAP (S0169) PO SCH (08:20)
[2019-04-11] MEDS: predniSONE 10 MG TAB PO SCH (08:20)
[2019-04-11] MEDS: BACLOFEN 5MG PER 1/2 TABLET PO SCH ×3 (08:20→20:41)
[2019-04-11] MEDS: LORATADINE 10 MG TAB PO SCH (08:20)
[2019-04-11] MEDS: METOPROLOL SUCC (TopROL XL) 100MG *XL* TAB PO SCH (08:21)
[2019-04-11] MEDS: predniSONE 5 MG TAB PO SCH (08:21)
[2019-04-11] MEDS: ACETAMINOPHEN 500 MG TAB PO SCH ×3 (08:21→20:42)
[2019-04-11] MEDS: POTASSIUM CHLORIDE 10 MEQ SR TABLET PO SCH (08:22)
[2019-04-11] MEDS: PANTOPRAZOLE 40MG TAB (PROTONIX) PO SCH ×2 (08:22→20:42)
[2019-04-11] MEDS: FLUTICASONE PROP 0.05% NASAL SPRAY 16 GM (FLONASE) NARES SCH ×2 (08:22→20:43)
[2019-04-11] MEDS: POLYVINYL ALCOHOL OPHTH SOLN 15 ML(LIQUITEARS) OS SCH ×3 (08:23→20:43)
[2019-04-11] MEDS: DOCUSATE SODIUM 100 MG CAP PO SCH ×2 (09:31→20:41)
[2019-04-11 14:00] VITALS: BP 132/83
[2019-04-11 20:00] VITALS: BP 135/84
[2019-04-11] MEDS: SENNA 8.6 MG TAB (SENOKOT) PO SCH (20:41)
[2019-04-11] MEDS: rOPINIRole 1MG TAB PO SCH (20:41)
[2019-04-11] MEDS: SERTRALINE HCL 50 MG TAB PO SCH (20:41)
[2019-04-11] MEDS: CYCLOBENZAPRINE 5MG TABLET PO PRN (22:44)
[2019-04-11] MEDS: traZODone 25MG PER 1/2 TABLET PO SCH (22:44)
[2019-04-11] MEDS: zolPIDEM TARTRATE 5 MG TAB PO PRN (22:44)
[2019-04-12 06:00] VITALS: BP 155/81
[2019-04-12] MEDS: GABAPENTIN 300 MG CAP PO SCH ×3 (06:36→21:21)
[2019-04-12 07:33] LABS: HEMATOCRIT 44.7 % (42.0-52.0); HEMOGLOBIN 14.2 g/dl (13.5-17.5); MEAN CORPUSCULAR HEMOGLOBIN 29.6 pg (27.0-33.0); MEAN CORPUSCULAR HGB CONC 31.8 g/dl (32.0-36.5); MEAN CORPUSCULAR VOLUME 93.1 fl (80.0-96.0); PLATELET COUNT, AUTOMATED 332 10^3/uL (150-450); WHITE BLOOD COUNT 12.5 10^3/uL (4.0-10.0)
[2019-04-12] MEDS: SYMBICORT 160/4.5MCG INHALER 6GM INH SCH ×2 (07:55→20:55)
[2019-04-12] MEDS: IPRATROPIUM 0.02% SOLN 0.5MG/2.5 ML NEB INH SCH ×3 (07:55→20:55)
[2019-04-12] MEDS: ENOXAPARIN 40 MG/0.4 ML SYRINGE (J1650) SC SCH (08:17)
[2019-04-12] MEDS: CALCITRIOL 0.25 MCG CAP (S0169) PO SCH (08:18)
[2019-04-12] MEDS: predniSONE 10 MG TAB PO SCH (08:18)
[2019-04-12] MEDS: ASPIRIN 81 MG ENTERIC TAB PO SCH (08:18)
[2019-04-12] MEDS: PANTOPRAZOLE 40MG TAB (PROTONIX) PO SCH ×2 (08:18→21:21)
[2019-04-12] MEDS: HumaLOG INSULIN (NovoLOG) PER UNIT SC SCH ×4 (08:18→21:00)
[2019-04-12] MEDS: CALCIUM CARBONATE 500 MG CHEW U/D PO SCH ×3 (08:18→17:20)
[2019-04-12] MEDS: ACETAMINOPHEN 500 MG TAB PO SCH ×3 (08:19→21:22)
[2019-04-12] MEDS: LORATADINE 10 MG TAB PO SCH (08:19)
[2019-04-12] MEDS: BACLOFEN 5MG PER 1/2 TABLET PO SCH ×3 (08:19→21:21)
[2019-04-12] MEDS: FLUTICASONE PROP 0.05% NASAL SPRAY 16 GM (FLONASE) NARES SCH ×2 (08:19→21:29)
[2019-04-12] MEDS: POLYVINYL ALCOHOL OPHTH SOLN 15 ML(LIQUITEARS) OS SCH ×3 (08:19→21:28)
[2019-04-12] MEDS: hydroCHLOROthiazide 25 MG TAB PO SCH (08:19)
[2019-04-12] MEDS: METOPROLOL SUCC (TopROL XL) 100MG *XL* TAB PO SCH (08:19)
[2019-04-12] MEDS: POTASSIUM CHLORIDE 10 MEQ SR TABLET PO SCH (08:20)
[2019-04-12] MEDS: DOCUSATE SODIUM 100 MG CAP PO SCH (08:20)
[2019-04-12] MEDS ORDERED: ADACEL/BOOSTRIX VACCINE (DIPHTH/PERTUSS/ACELL/TETANUS)0.5ML SYR (90715) IM ONE (11:45)
[2019-04-12] MEDS ORDERED: INFLUENZA QUADRIVALENT PF VACCINE 0.5ML SYRINGE (90686) IM ONE (11:45)
[2019-04-12] MEDS: CLOTRIMAZOLE 1% TOPICAL CREAM 30GM TOP SCH ×2 (13:16→21:31)
[2019-04-12] MEDS: LIDOCAINE 4% CREAM 5GM (LMX4) TOP SCH ×2 (13:17→21:31)
[2019-04-12] MEDS: BACTRIM 160MG/800MG DS TAB PO SCH (13:18)
[2019-04-12] MEDS: NYSTATIN 500,000 U/5 ML SUSP UDC PO SCH ×3 (13:18→21:21)
[2019-04-12 14:00] VITALS: BP 149/81
[2019-04-12] MEDS ORDERED: PNEUMOCOCCAL VACCINE 0.5ML SYRINGE(90732) PNEUMOVAX 23 IM SCH (14:00)
--- NOTE | 2019-04-12 18:50 | CR ---
DATE OF CONSULTATION: 04/12/2019 INFECTIOUS DISEASE CONSULTATION Asked to consult by Dr. Gaston for immunosuppression and possible need of antibiotics or flu shot. 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 The patient was hospitalized at [facility] for 2 weeks with pneumonia and hypoxia. He started developing some neurologic deficits during that hospitalization with some muscle cramps. He was readmitted in December of 2018 with worsening shortness of breath and worsening neurologic deficit, and therefore, transferred to [facility] where he was there for another 2-3 weeks. He then was admitted again 2 months later at the [facility] on 03/06/2019 with worsening shortness of breath, left arm weakness continued muscle cramps. At that time, he had a multiplex PCR that was positive for rhinovirus. He had a lumbar puncture done recommended by neurology, Dr. 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 The patient received one dose of IVIG and started on high-dose prednisone, up to 60 mg a day. The patient has been on steroids since February. Previously he had intermittent courses of steroids but has not been on chronic doses. He will be tapering his prednisone by 5 mg every week, currently at 30 mg daily. He denies any fever or chills. He still has a chronic cough mostly at night. He still has shortness of breath. He complains of different muscular deficits as well as burning sensation of his left upper thigh, tremors of his hands, cramps of his feet. He has no sensation in both feet. His anticipated discharge date is next Monday. The patient does not recall his last tetanus vaccine. On review of systems, he denies any fever, chills. No chest pain or palpitations. He has shortness of breath with a cough, mostly productive of white phlegm. He denies any dysuria, hematuria. He has left-sided weakness and muscle spasms, decreased sensation of both feet. He complains of sore throat. PAST MEDICAL HISTORY: Hypertension, depression and kidney stones with recent bilateral metapneumovirus pneumonia and a recent diagnosis of CIDP. PAST SURGICAL HISTORY: Appendectomy, cholecystectomy and total knee replacement, ulnar nerve surgery on the left elbow, right arm fracture with surgical open reduction internal fixation (ORIF). ALLERGIES; PLASTIC TAPE. MEDICATIONS: Prednisone 30 mg by mouth daily, started 04/12/2019, Lotrimin to buttocks, groin twice a day, lidocaine as needed, metoprolol 100 mg by mouth daily, sertraline 50 mg by mouth nightly, hydrochlorothiazide 25 mg by mouth daily, trazodone 25 mg by mouth nightly, gabapentin 600 mg by mouth three times a day, artificial tears two drops three times a day, loratadine 10 mg by mouth daily, fluticasone 1 spray twice a day nares, Zofran as needed, cyclobenzaprine 5 mg by mouth nightly as needed, insulin sliding scale, zolpidem 10 mg by mouth nightly as needed for insomnia. LABORATORY: White count was 12.5 on 04/12/2019, hemoglobin 14.2, hematocrit 44.7, platelets 332. Sodium 138, potassium 3.2, chloride 102, bicarbonate 26, BUN 16, creatinine 1.07, glucose 102, calcium 9.4. On physical exam, temperature is 97.4, pulse 98, respirations 20, blood pressure 155/81, oxygen saturation (O2 sat) 93% on room air. Heart: Normal S1, S2. No murmurs, rubs or gallops. Lungs are clear. No wheezes, rales or rhonchi. Abdomen: Soft, nontender. No hepatosplenomegaly. Extremities: Trace edema. No clubbing or cyanosis. He has giveaway weakness of both lower extremities. Neurologic Exam: Alert, oriented times three. He has bilateral upper extremity tremors, decreased sensation in both feet. Oropharynx; Has mild erythema of the pharynx. Neck: Supple. No jugular venous distention (JVD). No adenopathy. IMPRESSION: This is a 43-year-old gentleman who had bilateral pneumonia with metapneumovirus in October of 2018 with respiratory failure requiring high dose oxygen, three different hospitalizations as he had complications of CIDP and currently is on prednisone that was started in February and currently at a 30 mg dose that will be tapered down hopefully by the end of May. PLAN: Recommend flu shot. Patient is immunocompromised. There is no contraindication with his neurologic disease to a flu shot. His risk of having influenza pneumonia with complications is much higher. The patient is agreeable. Recommend Tdap. The patient cannot remember when his last tetanus and whooping cough booster was. This was ordered. Recommend Pneumocystis pneumonia (PCP) prophylaxis as long as the patient has been on more than 20 mg of prednisone for over a month. I would recommend Bactrim Monday, Monday, Monday for PCP prophylaxis until prednisone dose is less than 10 mg. Nystatin swish and swallow.
[2019-04-12 19:50] VITALS: BP 120/89
[2019-04-12] MEDS: rOPINIRole 1MG TAB PO SCH (21:21)
[2019-04-12] MEDS: SERTRALINE HCL 50 MG TAB PO SCH (21:21)
[2019-04-12] MEDS: SENNA 8.6 MG TAB (SENOKOT) PO SCH (21:21)
[2019-04-12] MEDS: traZODone 25MG PER 1/2 TABLET PO SCH (23:24)
[2019-04-12] MEDS: CYCLOBENZAPRINE 5MG TABLET PO PRN (23:24)
[2019-04-12] MEDS: zolPIDEM TARTRATE 5 MG TAB PO PRN (23:24)
[2019-04-13 05:45] VITALS: BP 130/90
[2019-04-13] MEDS: GABAPENTIN 300 MG CAP PO SCH ×3 (06:09→21:17)
[2019-04-13] MEDS: HumaLOG INSULIN (NovoLOG) PER UNIT SC SCH ×4 (07:46→21:00)
[2019-04-13] MEDS: CALCIUM CARBONATE 500 MG CHEW U/D PO SCH ×3 (07:46→17:16)
[2019-04-13] MEDS: IPRATROPIUM 0.02% SOLN 0.5MG/2.5 ML NEB INH SCH ×3 (08:00→20:14)
[2019-04-13] MEDS: ASPIRIN 81 MG ENTERIC TAB PO SCH (08:42)
[2019-04-13] MEDS: ENOXAPARIN 40 MG/0.4 ML SYRINGE (J1650) SC SCH (08:42)
[2019-04-13] MEDS: BACLOFEN 5MG PER 1/2 TABLET PO SCH ×3 (08:42→21:18)
[2019-04-13] MEDS: METOPROLOL SUCC (TopROL XL) 100MG *XL* TAB PO SCH (08:42)
[2019-04-13] MEDS: POTASSIUM CHLORIDE 10 MEQ SR TABLET PO SCH (08:42)
[2019-04-13] MEDS: hydroCHLOROthiazide 25 MG TAB PO SCH (08:43)
[2019-04-13] MEDS: predniSONE 10 MG TAB PO SCH (08:43)
[2019-04-13] MEDS: ACETAMINOPHEN 500 MG TAB PO SCH ×3 (08:43→21:18)
[2019-04-13] MEDS: PANTOPRAZOLE 40MG TAB (PROTONIX) PO SCH ×2 (08:44→21:17)
[2019-04-13] MEDS: NYSTATIN 500,000 U/5 ML SUSP UDC PO SCH ×4 (08:44→21:16)
[2019-04-13] MEDS: LORATADINE 10 MG TAB PO SCH (08:44)
[2019-04-13] MEDS: CALCITRIOL 0.25 MCG CAP (S0169) PO SCH (08:44)
[2019-04-13] MEDS: FLUTICASONE PROP 0.05% NASAL SPRAY 16 GM (FLONASE) NARES SCH ×2 (08:44→21:18)
[2019-04-13] MEDS: POLYVINYL ALCOHOL OPHTH SOLN 15 ML(LIQUITEARS) OS SCH ×3 (08:45→21:18)
[2019-04-13] MEDS: LIDOCAINE 4% CREAM 5GM (LMX4) TOP SCH ×2 (08:45→21:20)
[2019-04-13] MEDS: CLOTRIMAZOLE 1% TOPICAL CREAM 30GM TOP SCH ×2 (08:46→21:19)
[2019-04-13] MEDS: SYMBICORT 160/4.5MCG INHALER 6GM INH SCH ×2 (09:13→20:14)
[2019-04-13 14:00] VITALS: BP 149/81
[2019-04-13] MEDS: CHLORASEPTIC SPRAY MT PRN ×2 (15:56→18:26)
[2019-04-13 21:07] VITALS: BP 146/88
[2019-04-13] MEDS: rOPINIRole 1MG TAB PO SCH (21:16)
[2019-04-13] MEDS: SERTRALINE HCL 50 MG TAB PO SCH (21:17)
[2019-04-13] MEDS: SENNA 8.6 MG TAB (SENOKOT) PO SCH (21:18)
[2019-04-13] MEDS: CYCLOBENZAPRINE 5MG TABLET PO PRN (23:00)
[2019-04-13] MEDS: zolPIDEM TARTRATE 5 MG TAB PO PRN (23:00)
[2019-04-13] MEDS: traZODone 25MG PER 1/2 TABLET PO SCH (23:00)
[2019-04-14] MEDS: GABAPENTIN 300 MG CAP PO SCH ×3 (06:28→21:35)
[2019-04-14 06:39] VITALS: BP 163/104
[2019-04-14] MEDS: IPRATROPIUM 0.02% SOLN 0.5MG/2.5 ML NEB INH SCH ×3 (07:25→19:47)
[2019-04-14] MEDS: SYMBICORT 160/4.5MCG INHALER 6GM INH SCH ×2 (07:25→19:48)
[2019-04-14] MEDS: HumaLOG INSULIN (NovoLOG) PER UNIT SC SCH ×4 (07:30→21:00)
[2019-04-14] MEDS: ASPIRIN 81 MG ENTERIC TAB PO SCH (08:12)
[2019-04-14] MEDS: NYSTATIN 500,000 U/5 ML SUSP UDC PO SCH ×4 (08:12→21:35)
[2019-04-14] MEDS: CALCIUM CARBONATE 500 MG CHEW U/D PO SCH ×3 (08:12→17:30)
[2019-04-14] MEDS: ENOXAPARIN 40 MG/0.4 ML SYRINGE (J1650) SC SCH (08:12)
[2019-04-14] MEDS: predniSONE 10 MG TAB PO SCH (08:13)
[2019-04-14] MEDS: BACLOFEN 5MG PER 1/2 TABLET PO SCH ×3 (08:13→21:34)
[2019-04-14] MEDS: POTASSIUM CHLORIDE 10 MEQ SR TABLET PO SCH (08:13)
[2019-04-14] MEDS: METOPROLOL SUCC (TopROL XL) 100MG *XL* TAB PO SCH (08:13)
[2019-04-14] MEDS: PANTOPRAZOLE 40MG TAB (PROTONIX) PO SCH ×2 (08:13→21:34)
[2019-04-14] MEDS: LORATADINE 10 MG TAB PO SCH (08:14)
[2019-04-14] MEDS: hydroCHLOROthiazide 25 MG TAB PO SCH (08:14)
[2019-04-14] MEDS: ACETAMINOPHEN 500 MG TAB PO SCH ×3 (08:15→21:34)
[2019-04-14] MEDS: CALCITRIOL 0.25 MCG CAP (S0169) PO SCH (08:16)
[2019-04-14] MEDS: POLYVINYL ALCOHOL OPHTH SOLN 15 ML(LIQUITEARS) OS SCH ×3 (08:20→21:35)
[2019-04-14] MEDS: FLUTICASONE PROP 0.05% NASAL SPRAY 16 GM (FLONASE) NARES SCH ×2 (08:20→21:36)
[2019-04-14] MEDS: LIDOCAINE 4% CREAM 5GM (LMX4) TOP SCH ×2 (08:21→21:38)
[2019-04-14] MEDS: CLOTRIMAZOLE 1% TOPICAL CREAM 30GM TOP SCH ×2 (08:21→21:37)
[2019-04-14 14:00] VITALS: BP 142/88
[2019-04-14] MEDS: CHLORASEPTIC SPRAY MT PRN ×2 (15:07→21:35)
[2019-04-14 20:00] VITALS: BP 142/70
[2019-04-14] MEDS: traZODone 25MG PER 1/2 TABLET PO SCH (21:34)
[2019-04-14] MEDS: rOPINIRole 1MG TAB PO SCH (21:34)
[2019-04-14] MEDS: SERTRALINE HCL 50 MG TAB PO SCH (21:35)
[2019-04-14] MEDS: SENNA 8.6 MG TAB (SENOKOT) PO SCH (21:37)
[2019-04-14] MEDS: zolPIDEM TARTRATE 5 MG TAB PO PRN (23:03)
[2019-04-14] MEDS: CYCLOBENZAPRINE 5MG TABLET PO PRN (23:03)
[2019-04-15 06:30] VITALS: BP 136/80
[2019-04-15 06:45] LABS: HEMATOCRIT 42.2 % (42.0-52.0); HEMOGLOBIN 13.4 g/dl (13.5-17.5); MEAN CORPUSCULAR HEMOGLOBIN 29.3 pg (27.0-33.0); MEAN CORPUSCULAR HGB CONC 31.8 g/dl (32.0-36.5); MEAN CORPUSCULAR VOLUME 92.3 fl (80.0-96.0); PLATELET COUNT, AUTOMATED 289 10^3/uL (150-450); RED BLOOD COUNT 4.57 10^6/uL (4.30-6.10); WHITE BLOOD COUNT 12.1 10^3/uL (4.0-10.0)
[2019-04-15] MEDS: GABAPENTIN 300 MG CAP PO SCH ×3 (06:47→21:32)
[2019-04-15] MEDS: ENOXAPARIN 40 MG/0.4 ML SYRINGE (J1650) SC SCH (08:10)
[2019-04-15] MEDS: NYSTATIN 500,000 U/5 ML SUSP UDC PO SCH ×4 (08:10→21:31)
[2019-04-15] MEDS: PANTOPRAZOLE 40MG TAB (PROTONIX) PO SCH ×2 (08:11→21:32)
[2019-04-15] MEDS: HumaLOG INSULIN (NovoLOG) PER UNIT SC SCH ×4 (08:11→21:00)
[2019-04-15] MEDS: hydroCHLOROthiazide 25 MG TAB PO SCH (08:11)
[2019-04-15] MEDS: CALCITRIOL 0.25 MCG CAP (S0169) PO SCH (08:11)
[2019-04-15] MEDS: BACLOFEN 5MG PER 1/2 TABLET PO SCH ×3 (08:11→21:32)
[2019-04-15] MEDS: CALCIUM CARBONATE 500 MG CHEW U/D PO SCH ×3 (08:11→17:13)
[2019-04-15] MEDS: ASPIRIN 81 MG ENTERIC TAB PO SCH (08:11)
[2019-04-15] MEDS: BACTRIM 160MG/800MG DS TAB PO SCH (08:11)
[2019-04-15] MEDS: LORATADINE 10 MG TAB PO SCH (08:11)
[2019-04-15] MEDS: METOPROLOL SUCC (TopROL XL) 100MG *XL* TAB PO SCH (08:12)
[2019-04-15] MEDS: predniSONE 10 MG TAB PO SCH (08:12)
[2019-04-15] MEDS: ACETAMINOPHEN 500 MG TAB PO SCH ×3 (08:12→21:32)
[2019-04-15] MEDS: CHLORASEPTIC SPRAY MT PRN (08:13)
[2019-04-15] MEDS: POTASSIUM CHLORIDE 10 MEQ SR TABLET PO SCH (08:13)
[2019-04-15] MEDS: POLYVINYL ALCOHOL OPHTH SOLN 15 ML(LIQUITEARS) OS SCH ×3 (08:13→21:33)
[2019-04-15] MEDS: FLUTICASONE PROP 0.05% NASAL SPRAY 16 GM (FLONASE) NARES SCH ×2 (08:13→21:33)
[2019-04-15] MEDS: CLOTRIMAZOLE 1% TOPICAL CREAM 30GM TOP SCH ×2 (08:14→21:34)
[2019-04-15] MEDS: LIDOCAINE 4% CREAM 5GM (LMX4) TOP SCH ×2 (08:14→21:34)
[2019-04-15] MEDS: SYMBICORT 160/4.5MCG INHALER 6GM INH SCH (09:00)
[2019-04-15] MEDS: IPRATROPIUM 0.02% SOLN 0.5MG/2.5 ML NEB INH SCH ×3 (09:01→20:01)
[2019-04-15] MEDS ORDERED: ALBUTEROL 90 MCG/ACT 8GM HFA INHALER INH PRN (10:15)
[2019-04-15] MEDS ORDERED: FLUC10TA PO (10:33)
[2019-04-15] MEDS ORDERED: SULF1TAB93 PO (10:33)
[2019-04-15] MEDS ORDERED: PRED10TA2 PO (10:33)
[2019-04-15] MEDS ORDERED: CALC1CAP31 PO (10:33)
[2019-04-15] MEDS ORDERED: METO1TAB33 PO (10:33)
[2019-04-15] MEDS ORDERED: ROPI1TAB PO (10:33)
[2019-04-15] MEDS ORDERED: AMBI5TAB PO (10:33)
[2019-04-15] MEDS ORDERED: HYDR25TAB PO (10:33)
[2019-04-15] MEDS ORDERED: BACL10TA2 PO (10:33)
[2019-04-15] MEDS ORDERED: TRAZ-252 PO (10:33)
[2019-04-15] MEDS ORDERED: ASPI81TAEC PO (10:33)
[2019-04-15] MEDS ORDERED: SERT50TA29 PO (10:33)
[2019-04-15] MEDS ORDERED: PANT40TA3 PO (10:33)
[2019-04-15] MEDS ORDERED: GABA-843 PO ×2 (10:33)
[2019-04-15] MEDS ORDERED: SYMB16INH INH (10:33)
[2019-04-15] MEDS ORDERED: KLOR10TA76 PO (10:33)
[2019-04-15] MEDS: FLUCONAZOLE 100 MG TAB PO SCH (12:12)
[2019-04-15 14:00] VITALS: BP 143/94
--- NOTE | 2019-04-15 15:25 | IPNPDOC ---
PM&R Progress Note DATE OF SERVICE: Apr 10, 2019 [facility] Progress Note Subjective: Patient reporting he is interested in speaking with infectious disease doctor about possible vaccinations. REVIEW OF SYSTEMS: The following is a completed review of systems and has been reviewed. Review of systems otherwise unremarkable. PAIN: Patient self reports burning pain in his bilateral feet EYES: No recent vision changes, +left eye irritation EARS, NOSE, & THROAT: No throat pain, or dysphagia, or rhinorrhea CARDIOVASCULAR: Denies chest pain or palpitations PULMONARY: Denies shortness of breath at rest GASTROINTESTINAL: Denies constipation/diarrhea GENITOURINARY: denies dysuria MUSCULOSKELETAL: left sided weakness and muscle spasms NEUROLOGICAL:left sided weakness with gait instability HEMATOLOGICAL: denies easy bruising SKIN: no rash PSYCHIATRIC: Unremarkable All other review of systems found to be negative. PHYSICAL EXAMINATION: VITAL SIGNS: Please see below. GENERAL: Pleasant and cooperative. No acute distress. Alert and oriented times three HEENT: PERRL. Extraocular movements intact. no conjunctival injection CARDIOVASCULAR: Regular rate and rhythm. No murmurs, rubs, or gallops LUNGS: decreased inspiratory efforts, No wheezes. No rhonchi ABDOMEN: Soft, nontender, nondistended. Positive bowel sounds. Normal active bowel sounds NEUROLOGICAL: Alert and oriented times three. Cranial nerves II through XII grossly intact. Sensation diminished to light touch left LE and left UE (-) clonus, (-) Babinski (+) bilat LE muscle jerking with voluntary movements (improving) EXTREMITIES: 5\5 strength right UE, 5-/5 LUE 5\5 strength right lower extremity. 5-/5 strength in left lower extremity. 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 Rehab: PT/OT- strengthen/stretch/maintain ROM all 4lextremities, advance gait, improve endurance, optimize ADL management 2. Neuro: recent diagnosis of CIDP with left sided weakness, neuromuscular respiratory failure, with gait impairment s/p IVIG and IV steroids, continue prednisone and taper slowly, long-term steroid use may cause steroid induced myopathy, however cannot stop abruptly to avoid adrenal insufficiency, will need further neuro work-up -f/u with Dr. Ryan as outpatient 3. Resp: encourage incentive spirometry, Ipratropium nebs, c/u Symbicort and oral steroids, monitor for infection -s/p recent RF in setting of human metapneumovirus and subsequent diagnosed with Rhinovirus-stable -ID consulted to discuss possible vaccinations and preventative measures he can take upon discharge 4. Cardiac: HTN d/c low dose Amlodipine, c/u Metoprolol Succinate 100mg daily, will add HCTZ for elevated BPs -d/c propranolol -medicine consulted to assist in management 5. Endo: c/u ISS while on high dose steroids 6. Pain: c/u gabapentin increased to 600mg TID, c/u baclofen for spasms, discussed with patient Flexeril qHS prn -c/u requip for leg shaking 7.Psych: c/u ambien for insomnia, c/u trazodone and Zoloft qHS 8. DVT ppx: lovenox, dopplers negative for DVT 9. GI ppx: protonix 10. Ophthalmology- conjunctival injection resolved- c/u Claritin, eye drops and flonase 11. Dispo: 04-16-19 to home Allergies Coded Allergies: TAPE (Verified Allergy, Intermediate, HIVES, 04/03/19) PLASTIC TAPE, PAPER TAPE [place] silver (Verified Allergy, Intermediate, HIVES, 04/03/19) Vital Signs Vital Signs Date Time Temp Pulse Resp B/P (MAP) Pulse Ox O2 Delivery O2 Flow Rate FiO2 04/15/19 14:00 97.0 94 18 143/94 (110) 97 Room Air Laboratory Data CBC/BMP Laboratory Tests 04/15/19 06:24 Labs 24H Laboratory Tests 2 04/14/19 16:46: Bedside Glucose (Misc Panel) 170H 04/14/19 20:00: Bedside Glucose (Misc Panel) 139H 04/15/19 06:24: Nucleated Red Blood Cells % (auto) 0.0 04/15/19 06:31: Bedside Glucose (Misc Panel) 105 04/15/19 11:33: Bedside Glucose (Misc Panel) 119H Microbiology Microbiology 04/08/19 Stool Occult Blood (PHYLLIS) - Final, Complete Current Medications Current Medications Current Medications Medications (Trade) Dose Ordered Sig/Karena Route PRN Reason Start Time Stop Time Status Last Admin Dose Admin Acetaminophen (Tylenol Tab) 650 mg Q4HP PRN PO MILD PAIN (PS 1-4) 04/03/19 17:15 04/10/19 15:21 DC 04/06/19 12:00 Acetaminophen (Tylenol Tab) 1,000 mg TID PO 04/10/19 16:00 04/15/19 08:12 Al Hydrox/Mg Hydrox/Simethicone (Mylanta) 30 ml Q4HP PRN PO HEARTBURN 04/05/19 10:15 Albuterol Sulfate (Proventil, Ventolin Hfa) 2 puff Q4HP PRN INH SHORTNESS OF BREATH 04/15/19 10:15 Amlodipine Besylate (Norvasc) 2.5 mg DAILY PO 04/04/19 09:00 04/04/19 16:26 DC 04/04/19 07:48 Amlodipine Besylate (Norvasc) 5 mg DAILY PO 04/05/19 09:00 04/09/19 10:56 DC 04/09/19 08:36 Artificial Tears (Akwa Tears) 2 drop TID OS 04/05/19 16:00 04/15/19 08:13 Aspirin (Ecotrin) 81 mg DAILY PO 04/04/19 09:00 04/15/19 08:11 Baclofen (Lioresal) 5 mg TID PO 04/04/19 09:00 04/15/19 08:11 Bisacodyl (Dulcolax Suppository) 10 mg DAILYPRN PRN [place] CONSTIPATION 04/03/19 17:15 Budesonide/ Formoterol Fumarate (Symbicort 160/ 4.5mcg) 2 puff BID INH 04/03/19 21:00 04/13/19 09:13 Calcitriol (Rocaltrol) 0.25 mcg DAILY PO 04/04/19 09:00 04/15/19 08:11 Calcium Carbonate (Tums) 500 mg WM PO 04/03/19 18:00 04/15/19 12:12 Clotrimazole (Lotrimin) apply to buttocks/groin BID TOP 04/12/19 09:00 04/15/19 08:14 Cyclobenzaprine HCl (Flexeril) 5 mg Q6HP PRN PO SPASMS 04/03/19 17:15 04/04/19 10:36 DC 04/04/19 06:54 Cyclobenzaprine HCl (Flexeril) 5 mg QHS PRN PO SPASMS 04/05/19 10:30 04/14/19 23:03 Dextrose (Dextrose 50%) 25 ml ASDIRECTED PRN IV SEE LABEL COMMENTS 04/04/19 11:15 Docusate Sodium (Colace) 100 mg BID PO 04/03/19 21:00 04/12/19 09:24 DC 04/11/19 20:41 Enoxaparin Sodium (Lovenox) 40 mg DAILY SC 04/04/19 09:00 04/15/19 08:10 Fluconazole (Diflucan) 200 mg DAILY PO 04/15/19 10:15 04/15/19 12:12 Fluticasone Propionate (Flonase 0.05% Nasal [place]) 1 spray BID NARES 04/05/19 15:45 04/15/19 08:13 Gabapentin (Neurontin) 300 mg BID@0600,1500 PO 04/05/19 15:00 04/06/19 16:51 DC 04/06/19 15:15 Gabapentin (Neurontin) 300 mg BID@0900,1500 PO 04/05/19 15:00 04/05/19 12:32 DC Gabapentin (Neurontin) 300 mg TID PO 04/03/19 21:00 04/05/19 10:25 DC 04/05/19 09:51 Gabapentin (Neurontin) 600 mg BID@0600,1500 PO 04/07/19 06:00 04/15/19 06:47 Gabapentin (Neurontin) 600 mg QHS PO 04/05/19 21:00 04/14/19 21:35 Glucagon (Glucagon) 1 mg ASDIRECTED PRN SC SEE LABEL COMMENTS 04/04/19 11:15 Glucose (Glucose) 16 GM ASDIRECTED PRN PO SEE LABEL COMMENTS 04/04/19 11:15 Home Med (Med Rec Complete!) ASDIRECTED XX 04/03/19 18:15 04/03/19 19:02 DC Hydrochlorothiazide (Hydrodiuril) 25 mg DAILY PO 04/09/19 11:00 04/15/19 08:11 Insulin Human Lispro (HumaLOG INSULIN) SEE PROTOCOL TABLE AC SC 04/04/19 12:00 04/15/19 12:12 Insulin Human Lispro (HumaLOG INSULIN) SEE PROTOCOL TABLE QHS SC 04/04/19 21:00 Ipratropium [place] (Atrovent 0.02%) 0.25 mg RTID INH 04/04/19 20:00 04/15/19 09:01 Lidocaine HCl (Lmx 4/Anecream) apply to buttocks/groin BID TOP 04/12/19 09:00 04/15/19 08:14 Loratadine (Claritin) 10 mg DAILY PO 04/05/19 15:45 04/15/19 08:11 Metoprolol Succinate (TopROL XL) 50 mg DAILY PO 04/08/19 09:00 04/09/19 10:56 DC 04/09/19 08:34 Metoprolol Succinate (TopROL XL) 100 mg DAILY PO 04/10/19 09:00 04/15/19 08:12 Nystatin (Mycostatin) 5 ml QID PO 04/12/19 13:00 04/15/19 12:12 Ondansetron HCl (Zofran Odt) 4 mg Q4HP PRN PO NAUSEA OR VOMITING 04/05/19 11:30 Ondansetron HCl (Zofran) 4 mg Q6HP PRN PO NAUSEA 04/03/19 17:15 04/05/19 11:19 DC 04/05/19 01:55 Oxycodone HCl (Roxicodone, Oxyir) 5 mg Q4HP PRN PO PAIN 04/03/19 17:15 04/04/19 10:41 DC Pantoprazole Sodium (Protonix) 40 mg BID PO 04/03/19 21:00 04/15/19 08:11 Pantoprazole Sodium (Protonix) 40 mg QHS PO 04/03/19 21:00 04/03/19 19:06 DC Phenol (Chloraseptic [place]) 1 spray Q2HP PRN [place] SORE THROAT 04/13/19 14:30 04/15/19 08:13 Pneumococcal Polyvalent Vaccine (Pneumovax 23) 0.5 ml ASDIRECTED IM 04/12/19 14:00 04/12/19 23:59 DC 04/12/19 21:26 Potassium Chloride (Micro-K Extencaps) 20 meq DAILY PO 04/04/19 09:00 04/15/19 08:13 Prednisone (Deltasone) 5 mg BID PO 04/05/19 09:00 04/04/19 21:58 DC Prednisone (Deltasone) 5 mg DAILY PO 04/05/19 09:00 04/11/19 21:00 DC 04/11/19 08:21 Prednisone (Deltasone) 30 mg BID PO 04/05/19 09:00 04/04/19 21:58 DC Prednisone (Deltasone) 30 mg DAILY PO 04/05/19 09:00 04/11/19 21:00 DC 04/11/19 08:20 Prednisone (Deltasone) 30 mg DAILY PO 04/12/19 09:00 04/15/19 08:12 Prednisone (Deltasone) 40 mg DAILY PO 04/04/19 09:00 04/04/19 12:49 DC 04/04/19 07:47 Propranolol HCl (Inderal) 5 mg TID PO 04/03/19 21:00 04/04/19 10:41 DC 04/04/19 07:50 Propranolol HCl (Inderal) 10 mg TID PO 04/04/19 16:00 04/09/19 10:56 DC 04/09/19 08:36 Ropinirole HCl (Requip) 1 mg QHS PO 04/03/19 21:00 04/14/19 21:34 Senna (Senokot) 1 tab QHS PO 04/03/19 21:00 04/14/19 21:37 Sertraline HCl (Zoloft) 50 mg DAILY PO 04/04/19 09:00 04/08/19 11:55 DC 04/08/19 08:38 Sertraline HCl (Zoloft) 50 mg QHS PO 04/09/19 21:00 04/14/19 21:35 Trazodone HCl (Desyrel) 25 mg QHS PO 04/08/19 21:00 04/14/19 21:34 Trimethoprim/ Sulfamethoxazole (Bactrim Ds, Septra Ds 160mg/ 800mg) 1 tab MoWeFr@09 PO 04/12/19 11:45 04/15/19 08:11 Zolpidem Tartrate (Ambien) 5 mg QHSP PRN PO INSOMNIA 04/03/19 17:15 04/04/19 11:09 DC 04/03/19 21:33 Zolpidem Tartrate (Ambien) 10 mg QHSP PRN PO INSOMNIA 04/04/19 11:15 04/14/19 23:03 ARMANDO HARRELL MD Apr 15, 2019 15:25
--- NOTE | 2019-04-15 15:29 | IPNPDOC ---
PM&R Progress Note DATE OF SERVICE: Apr 15, 2019 [employer] Progress Note Subjective: Patient reporting he feels run down today after receiving his vaccinations, denies fever or chills, but coughed a little more while int he shower. He reports it is painful to swallow. REVIEW OF SYSTEMS: The following is a completed review of systems and has been reviewed. Review of systems otherwise unremarkable. PAIN: Patient self reports burning pain in his bilateral feet EYES: No recent vision changes, +left eye irritation EARS, NOSE, & THROAT: No throat pain, or dysphagia, or rhinorrhea CARDIOVASCULAR: Denies chest pain or palpitations PULMONARY: Denies shortness of breath at rest GASTROINTESTINAL: Denies constipation/diarrhea GENITOURINARY: denies dysuria MUSCULOSKELETAL: left sided weakness and muscle spasms NEUROLOGICAL:left sided weakness with gait instability HEMATOLOGICAL: denies easy bruising SKIN: no rash PSYCHIATRIC: Unremarkable All other review of systems found to be negative. PHYSICAL EXAMINATION: VITAL SIGNS: Please see below. GENERAL: Pleasant and cooperative. No acute distress. Alert and oriented times three HEENT: PERRL. Extraocular movements intact. no conjunctival injection +thrush CARDIOVASCULAR: Regular rate and rhythm. No murmurs, rubs, or gallops LUNGS: decreased inspiratory efforts, No wheezes. No rhonchi ABDOMEN: Soft, nontender, nondistended. Positive bowel sounds. Normal active bowel sounds NEUROLOGICAL: Alert and oriented times three. Cranial nerves II through XII grossly intact. Sensation diminished to light touch left LE and left UE (-) clonus, (-) Babinski (+) bilat LE muscle jerking with voluntary movements (improving) EXTREMITIES: 5\5 strength right UE, 5-/5 LUE 5\5 strength right lower extremity. 5-/5 strength in left lower extremity. (-) Homans bilat, no notable edema Skin: buttock serpiginous rash ASSESSMENT:43-year-old M with past medical history of who presents status post prolonged hospital course for respiratory failure due to metapneumovirus with CIDP PLAN: 1. Rehab: PT/OT- strengthen/stretch/maintain ROM all 4lextremities, advance gait, improve endurance, optimize ADL management 2. Neuro: recent diagnosis of CIDP with left sided weakness, neuromuscular respiratory failure, with gait impairment s/p IVIG and IV steroids, continue prednisone and taper slowly, long-term steroid use may cause steroid induced myopathy, however cannot stop abruptly to avoid adrenal insufficiency, will need further neuro work-up -f/u with Dr. Davis as outpatient 3. Resp: encourage incentive spirometry, Ipratropium nebs, c/u oral steroids, monitor for infection -Symbicort, patient not taking due to thrush, will add Albuterol prn -s/p recent RF in setting of human metapneumovirus and subsequent diagnosed with Rhinovirus-stable -ID consulted to discuss possible vaccinations and preventative measures he can take upon discharge 4. Cardiac: HTN d/c low dose Amlodipine, c/u Metoprolol Succinate 100mg daily, c/u HCTZ for elevated BPs -medicine consulted to assist in management 5. Endo: c/u ISS while on high dose steroids 6. Pain: c/u gabapentin increased to 600mg TID, c/u baclofen for spasms, discussed with patient Flexeril qHS prn -c/u requip for leg shaking 7.Psych: c/u ambien for insomnia, c/u trazodone and Zoloft qHS 8. DVT ppx: lovenox, dopplers negative for DVT 9. GI ppx: protonix 10. ID: patient with thrush and fungal rash on his buttocks both pf which not r esponding to topical antifungals- will start oral Diflucan -patient to f/u with Dr. Reyes upon discharge- recs appreciated -s/p flu, pneumonia, and whooping cough vaccine -c/u Bactrim for prophylaxis 10. Ophthalmology- conjunctival injection resolved- c/u Claritin, eye drops and flonase 11. Dispo: 04-16-19 to home Allergies Coded Allergies: TAPE (Verified Allergy, Intermediate, HIVES, 04/03/19) PLASTIC TAPE, PAPER TAPE [place] silver (Verified Allergy, Intermediate, HIVES, 04/03/19) Vital Signs Vital Signs Date Time Temp Pulse Resp B/P (MAP) Pulse Ox O2 Delivery O2 Flow Rate FiO2 04/15/19 14:00 97.0 94 18 143/94 (110) 97 Room Air Laboratory Data CBC/BMP Laboratory Tests 04/15/19 06:24 Labs 24H Laboratory Tests 2 04/14/19 16:46: Bedside Glucose (Misc Panel) 170H 04/14/19 20:00: Bedside Glucose (Misc Panel) 139H 04/15/19 06:24: Nucleated Red Blood Cells % (auto) 0.0 04/15/19 06:31: Bedside Glucose (Misc Panel) 105 04/15/19 11:33: Bedside Glucose (Misc Panel) 119H Microbiology Microbiology 04/08/19 Stool Occult Blood (PHYLLIS) - Final, Complete Current Medications Current Medications Current Medications Medications (Trade) Dose Ordered Sig/Karena Route PRN Reason Start Time Stop Time Status Last Admin Dose Admin Acetaminophen (Tylenol Tab) 650 mg Q4HP PRN PO MILD PAIN (PS 1-4) 04/03/19 17:15 04/10/19 15:21 DC 04/06/19 12:00 Acetaminophen (Tylenol Tab) 1,000 mg TID PO 04/10/19 16:00 04/15/19 08:12 Al Hydrox/Mg Hydrox/Simethicone (Mylanta) 30 ml Q4HP PRN PO HEARTBURN 04/05/19 10:15 Albuterol Sulfate (Proventil, Ventolin Hfa) 2 puff Q4HP PRN INH SHORTNESS OF BREATH 04/15/19 10:15 Amlodipine Besylate (Norvasc) 2.5 mg DAILY PO 04/04/19 09:00 04/04/19 16:26 DC 04/04/19 07:48 Amlodipine Besylate (Norvasc) 5 mg DAILY PO 04/05/19 09:00 04/09/19 10:56 DC 04/09/19 08:36 Artificial Tears (Akwa Tears) 2 drop TID OS 04/05/19 16:00 04/15/19 08:13 Aspirin (Ecotrin) 81 mg DAILY PO 04/04/19 09:00 04/15/19 08:11 Baclofen (Lioresal) 5 mg TID PO 04/04/19 09:00 04/15/19 08:11 Bisacodyl (Dulcolax Suppository) 10 mg DAILYPRN PRN AL CONSTIPATION 04/03/19 17:15 Budesonide/ Formoterol Fumarate (Symbicort 160/ 4.5mcg) 2 puff BID INH 04/03/19 21:00 04/13/19 09:13 Calcitriol (Rocaltrol) 0.25 mcg DAILY PO 04/04/19 09:00 11/4/19 08:11 Calcium Carbonate (Tums) 500 mg WM PO 04/03/19 18:00 04/15/19 12:12 Clotrimazole (Lotrimin) apply to buttocks/groin BID TOP 04/12/19 09:00 04/15/19 08:14 Cyclobenzaprine HCl (Flexeril) 5 mg Q6HP PRN PO SPASMS 04/03/19 17:15 04/04/19 10:36 DC 04/04/19 06:54 Cyclobenzaprine HCl (Flexeril) 5 mg QHS PRN PO SPASMS 04/05/19 10:30 04/14/19 23:03 Dextrose (Dextrose 50%) 25 ml ASDIRECTED PRN IV SEE LABEL COMMENTS 04/04/19 11:15 Docusate Sodium (Colace) 100 mg BID PO 04/03/19 21:00 04/12/19 09:24 DC 04/11/19 20:41 Enoxaparin Sodium (Lovenox) 40 mg DAILY SC 04/04/19 09:00 04/15/19 08:10 Fluconazole (Diflucan) 200 mg DAILY PO 04/15/19 10:15 04/15/19 12:12 Fluticasone Propionate (Flonase 0.05% Nasal [place]) 1 spray BID NARES 04/05/19 15:45 04/15/19 08:13 Gabapentin (Neurontin) 300 mg BID@0600,1500 PO 04/05/19 15:00 04/06/19 16:51 DC 04/06/19 15:15 Gabapentin (Neurontin) 300 mg BID@0900,1500 PO 04/05/19 15:00 04/05/19 12:32 DC Gabapentin (Neurontin) 300 mg TID PO 04/03/19 21:00 04/05/19 10:25 DC 04/05/19 09:51 Gabapentin (Neurontin) 600 mg BID@0600,1500 PO 04/07/19 06:00 04/15/19 06:47 Gabapentin (Neurontin) 600 mg QHS PO 04/05/19 21:00 04/14/19 21:35 Glucagon (Glucagon) 1 mg ASDIRECTED PRN SC SEE LABEL COMMENTS 04/04/19 11:15 Glucose (Glucose) 16 GM ASDIRECTED PRN PO SEE LABEL COMMENTS 04/04/19 11:15 Home Med (Med Rec Complete!) ASDIRECTED XX 04/03/19 18:15 04/03/19 19:02 DC Hydrochlorothiazide (Hydrodiuril) 25 mg DAILY PO 04/09/19 11:00 04/15/19 08:11 Insulin Human Lispro (HumaLOG INSULIN) SEE PROTOCOL TABLE AC SC 04/04/19 12:00 04/15/19 12:12 Insulin Human Lispro (HumaLOG INSULIN) SEE PROTOCOL TABLE QHS SC 04/04/19 21:00 Ipratropium [place] (Atrovent 0.02%) 0.25 mg RTID INH 04/04/19 20:00 04/15/19 09:01 Lidocaine HCl (Lmx 4/Anecream) apply to buttocks/groin BID TOP 04/12/19 09:00 04/15/19 08:14 Loratadine (Claritin) 10 mg DAILY PO 04/05/19 15:45 04/15/19 08:11 Metoprolol Succinate (TopROL XL) 50 mg DAILY PO 04/08/19 09:00 04/09/19 10:56 DC 04/09/19 08:34 Metoprolol Succinate (TopROL XL) 100 mg DAILY PO 04/10/19 09:00 04/15/19 08:12 Nystatin (Mycostatin) 5 ml QID PO 04/12/19 13:00 04/15/19 12:12 Ondansetron HCl (Zofran Odt) 4 mg Q4HP PRN PO NAUSEA OR VOMITING 04/05/19 11:30 Ondansetron HCl (Zofran) 4 mg Q6HP PRN PO NAUSEA 04/03/19 17:15 04/05/19 11:19 DC 04/05/19 01:55 Oxycodone HCl (Roxicodone, Oxyir) 5 mg Q4HP PRN PO PAIN 04/03/19 17:15 04/04/19 10:41 DC Pantoprazole Sodium (Protonix) 40 mg BID PO 04/03/19 21:00 04/15/19 08:11 Pantoprazole Sodium (Protonix) 40 mg QHS PO 04/03/19 21:00 04/03/19 19:06 DC Phenol (Chloraseptic [place]) 1 spray Q2HP PRN MT SORE THROAT 04/13/19 14:30 04/15/19 08:13 Pneumococcal Polyvalent Vaccine (Pneumovax 23) 0.5 ml ASDIRECTED IM 04/12/19 14:00 04/12/19 23:59 DC 04/12/19 21:26 Potassium Chloride (Micro-K Extencaps) 20 meq DAILY PO 04/04/19 09:00 04/15/19 08:13 Prednisone (Deltasone) 5 mg BID PO 04/05/19 09:00 04/04/19 21:58 DC Prednisone (Deltasone) 5 mg DAILY PO 04/05/19 09:00 04/11/19 21:00 DC 04/11/19 08:21 Prednisone (Deltasone) 30 mg BID PO 04/05/19 09:00 04/04/19 21:58 DC Prednisone (Deltasone) 30 mg DAILY PO 04/05/19 09:00 04/11/19 21:00 DC 04/11/19 08:20 Prednisone (Deltasone) 30 mg DAILY PO 04/12/19 09:00 04/15/19 08:12 Prednisone (Deltasone) 40 mg DAILY PO 04/04/19 09:00 04/04/19 12:49 DC 04/04/19 07:47 Propranolol HCl (Inderal) 5 mg TID PO 04/03/19 21:00 04/04/19 10:41 DC 04/04/19 07:50 Propranolol HCl (Inderal) 10 mg TID PO 04/04/19 16:00 04/09/19 10:56 DC 04/09/19 08:36 Ropinirole HCl (Requip) 1 mg QHS PO 04/03/19 21:00 04/14/19 21:34 Senna (Senokot) 1 tab QHS PO 04/03/19 21:00 04/14/19 21:37 Sertraline HCl (Zoloft) 50 mg DAILY PO 04/04/19 09:00 04/08/19 11:55 DC 04/08/19 08:38 Sertraline HCl (Zoloft) 50 mg QHS PO 04/09/19 21:00 04/14/19 21:35 Trazodone HCl (Desyrel) 25 mg QHS PO 04/08/19 21:00 04/14/19 21:34 Trimethoprim/ Sulfamethoxazole (Bactrim Ds, Septra Ds 160mg/ 800mg) 1 tab MoWeFr@09 PO 04/12/19 11:45 04/15/19 08:11 Zolpidem Tartrate (Ambien) 5 mg QHSP PRN PO INSOMNIA 04/03/19 17:15 04/04/19 11:09 DC 04/03/19 21:33 Zolpidem Tartrate (Ambien) 10 mg QHSP PRN PO INSOMNIA 04/04/19 11:15 04/14/19 23:03 ARMANDO HARERLL MD Apr 15, 2019 15:29
[2019-04-15 20:00] VITALS: BP 140/86
[2019-04-15] MEDS: SENNA 8.6 MG TAB (SENOKOT) PO SCH (21:32)
[2019-04-15] MEDS: rOPINIRole 1MG TAB PO SCH (21:32)
[2019-04-15] MEDS: SERTRALINE HCL 50 MG TAB PO SCH (21:32)
[2019-04-15] MEDS: traZODone 25MG PER 1/2 TABLET PO SCH (23:06)
[2019-04-15] MEDS: CYCLOBENZAPRINE 5MG TABLET PO PRN (23:06)
[2019-04-15] MEDS: zolPIDEM TARTRATE 5 MG TAB PO PRN (23:06)
[2019-04-16 06:30] VITALS: BP 160/98
[2019-04-16] MEDS: GABAPENTIN 300 MG CAP PO SCH ×2 (06:30→13:58)
[2019-04-16] MEDS: SYMBICORT 160/4.5MCG INHALER 6GM INH SCH (07:51)
[2019-04-16] MEDS: IPRATROPIUM 0.02% SOLN 0.5MG/2.5 ML NEB INH SCH ×2 (07:51→14:00)
[2019-04-16 08:40] VITALS: BP 160/98
[2019-04-16] MEDS: NYSTATIN 500,000 U/5 ML SUSP UDC PO SCH ×2 (08:40→13:39)
[2019-04-16] MEDS: predniSONE 10 MG TAB PO SCH (08:40)
[2019-04-16] MEDS: METOPROLOL SUCC (TopROL XL) 100MG *XL* TAB PO SCH (08:40)
[2019-04-16] MEDS: CALCIUM CARBONATE 500 MG CHEW U/D PO SCH ×2 (08:40→13:39)
[2019-04-16] MEDS: ASPIRIN 81 MG ENTERIC TAB PO SCH (08:40)
[2019-04-16] MEDS: CALCITRIOL 0.25 MCG CAP (S0169) PO SCH (08:40)
[2019-04-16] MEDS: PANTOPRAZOLE 40MG TAB (PROTONIX) PO SCH (08:40)
[2019-04-16] MEDS: BACLOFEN 5MG PER 1/2 TABLET PO SCH (08:40)
[2019-04-16] MEDS: ENOXAPARIN 40 MG/0.4 ML SYRINGE (J1650) SC SCH (08:40)
[2019-04-16] MEDS: LORATADINE 10 MG TAB PO SCH (08:41)
[2019-04-16] MEDS: FLUCONAZOLE 100 MG TAB PO SCH (08:41)
[2019-04-16] MEDS: hydroCHLOROthiazide 25 MG TAB PO SCH (08:41)
[2019-04-16] MEDS: POTASSIUM CHLORIDE 10 MEQ SR TABLET PO SCH (08:41)
[2019-04-16] MEDS: ACETAMINOPHEN 500 MG TAB PO SCH (08:42)
[2019-04-16] MEDS: HumaLOG INSULIN (NovoLOG) PER UNIT SC SCH ×2 (08:42→13:39)
[2019-04-16] MEDS: FLUTICASONE PROP 0.05% NASAL SPRAY 16 GM (FLONASE) NARES SCH (08:43)
[2019-04-16] MEDS: CLOTRIMAZOLE 1% TOPICAL CREAM 30GM TOP SCH (08:43)
[2019-04-16] MEDS: LIDOCAINE 4% CREAM 5GM (LMX4) TOP SCH (08:43)
[2019-04-16] MEDS: POLYVINYL ALCOHOL OPHTH SOLN 15 ML(LIQUITEARS) OS SCH (08:43)
[2019-04-16] MEDS ORDERED: IPRA2IN INH (10:27)
[2019-04-16] MEDS ORDERED: VENTAER INH (10:27)
== END 2019-04-16 14:30 | disposition home or self-care (01) | DRG 49 ==
LOC: M PM&R 16:23
PROVIDERS: ADMIT Physical Medicine & Rehabilitation; ATTEND Physical Medicine & Rehabilitation
DX: G61.0 Guillain-Barre syndrome (principal); I10 Essential (primary) hypertension; F32.9 Major depressive disorder, single episode, unspecified; R26.89 Other abnormalities of gait and mobility; H10.12 Acute atopic conjunctivitis, left eye; G47.00 Insomnia, unspecified; Z79.52 Long term (current) use of systemic steroids; Z79.899 Other long term (current) drug therapy; Z91.048 Other nonmedicinal substance allergy status; Z87.442 Personal history of urinary calculi; Z87.81 Personal history of (healed) traumatic fracture; Z87.01 Personal history of pneumonia (recurrent)

== ENCOUNTER → 2019-10-03 | Outpatient (CLI) | payer BC, OTHER ==
[~2019-10-03] MED LIST: AMBI5TAB PO; AMLO2.5T3 PO; APAP325T4 PO; ASPI-161 PO; ASPI81TAEC PO; BACL10TA2 PO; CALC1CAP31 PO; CYCL-707 PO; DRIS50003 PO; ESCI20TA PO; FLUC10TA PO; GABA-843 PO; HYDR25TAB PO; IPRA2IN INH; KLOR10TA76 PO; LUNE2TAB23 PO; MAALSUS19 PO; MELA3TAB62 PO; METO1TAB33 PO; NEUR300C PO; ONDA-83 PO; OXYC-517 PO; PANT40TA3 PO; POTA1TAB14 PO; PRED10TA2 PO; PRED20TA PO; ROPI1TAB3 PO; SENN-23 PO; SERT50TA29 PO; SULF1TAB93 PO; SYMB16INH INH; TEST200I14 IM; TRAZ-252 PO; TUMS500C PO; VENTAER INH; ZOLP5TAB PO
[2019-10-03 16:21] LABS: BASO # 0.1 10^3/uL (0.0-0.2); BASO % 0.7 % (0.0-1.0); EOS # 0.1 10^3/uL (0.0-0.5); HEMATOCRIT 44.6 % (42.0-52.0); HEMOGLOBIN 14.8 g/dl (13.5-17.5); LYMPH # 2.9 10^3/uL (1.5-5.0); LYMPH % 41.3 % (24.0-44.0); MEAN CORPUSCULAR HEMOGLOBIN 28.8 pg (27.0-33.0); MEAN CORPUSCULAR HGB CONC 33.2 g/dl (32.0-36.5); MEAN CORPUSCULAR VOLUME 86.8 fl (80.0-96.0); MONO # 0.7 10^3/uL (0.0-0.8); MONO % 9.5 % (0.0-5.0); NEUTROPHILS # 3.2 10^3/uL (1.5-8.5); NEUTROPHILS % 46.2 % (36.0-66.0); PLATELET COUNT, AUTOMATED 330 10^3/uL (150-450); RED BLOOD COUNT 5.14 10^6/uL (4.30-6.10)
[2019-10-03 16:50] LABS: ALBUMIN 3.8 GM/DL (3.2-5.2); ALT/SGPT 106 U/L (12-78); BILIRUBIN,TOTAL 1.1 MG/DL (0.2-1.0); BLOOD UREA NITROGEN 14 MG/DL (7-18); CALCIUM LEVEL 8.4 MG/DL (8.5-10.1); CARBON DIOXIDE LEVEL 24 MEQ/L (21-32); CHLORIDE LEVEL 108 MEQ/L (98-107); CREATININE FOR GFR 1.01 MG/DL (0.70-1.30); GLOMERULAR FILTRATION RATE > 60.0 (>60); GLUCOSE, FASTING 133 MG/DL (70-100); IMMUNOGLOBULIN G 728 MG/DL (681-1648); IMMUNOGLOBULIN M 33.6 MG/DL (40-230); LDH LACTATE DEHYDROGENASE 220 U/L (87-241); POTASSIUM SERUM 3.9 MEQ/L (3.5-5.1); SODIUM LEVEL 141 MEQ/L (136-145); TOTAL PROTEIN 6.7 GM/DL (6.4-8.2)
--- NOTE | 2019-10-03 17:30 | REP ---
Clinical: Adult bone survey POEMS syndrome. Technique: 16 total images. Findings: AP and lateral images of the calvarium are unremarkable and without malignant/metastatic finding. AP, swimmers and lateral cervical spine demonstrates straightening of normal lordosis and mild degenerative changes at C5-6 and C6-7 without malignant/metastatic findings. AP and lateral views of the thoracic and lumbar spine appear normal. Frontal view of the pelvis demonstrates no significant abnormalities. Mild degenerative changes of bilateral hip joints noted. No malignant/metastatic findings appreciated. Bilateral humeri and bilateral femurs are age-appropriate and without malignant/metastatic findings. Impression: No evidence for malignant/metastatic abnormality by radiographic evaluation. Electronically Signed by Alex Garsia MD 10/03/2019 05:22 P
[2019-10-07 13:43] LABS: ALBUMIN 4.21 GM/DL (3.29-5.55); ALBUMIN % 62.8 % (55.8-66.1); ALPHA-1-GLOBULIN % 3.9 % (2.9-4.9); ALPHA-1-GLOBULINS 0.26 GM/DL (0.17-0.41); ALPHA-2-GLOBULINS 0.67 GM/DL (0.42-0.99); BETA-1-GLOBULINS 0.46 GM/DL (0.28-0.60); BETA-1-GLOBULINS % 6.9 % (4.7-7.2); BETA-2-GLOBULINS 0.38 GM/DL (0.19-0.55); BETA-2-GLOBULINS % 5.7 % (3.2-6.5); GAMMA GLOBULIN % 10.7 % (11.1-18.8); GAMMA GLOBULINS 0.72 GM/DL (0.65-1.58)
[2019-10-08 00:10] LABS: BETA-2 GLYCOPROTEIN I ABY IGA <9 (0-25); BETA-2 GLYCOPROTEIN I ABY IGG <9 (0-20); BETA-2 GLYCOPROTEIN I ABY IGM <9 (0-32); FREE KAPPA LIGHT CHAINS SERUM 8.3 mg/L (3.3-19.4); FREE LAMBDA LIGHT CHAINS SERUM 9.8 mg/L (5.7-26.3); KAPPA/LAMBDA RATIO SERUM 0.85 (0.26-1.65)
== END ==
LOC: M LAB 14:36
PROVIDERS: ATTEND Internal Medicine Hematology
DX: D75.89 Other specified diseases of blood and blood-forming organs (principal); M17.0 Bilateral primary osteoarthritis of knee

== ENCOUNTER → 2019-10-07 | Outpatient (CLI) | payer BC, OTHER ==
[2019-10-07 12:45] LABS: ABG BASE EXCESS -3.2 (-2.0-2.0); ABG O2 SATURATION 94.4 % (95.0-99.0); ABG PARTIAL PRESSURE O2 73.8 mmHg (75.0-100.0); ABG STANDARD HCO3 21.7 MEQ/L (22.0-26.0); ABG pH (ARTERIAL) 7.395 UNITS (7.350-7.450)
== END ==
LOC: M CARPUL 12:09
PROVIDERS: ATTEND Internal Medicine Pulmonary Disease
DX: R00.0 Tachycardia, unspecified (principal); J98.6 Disorders of diaphragm; G61.81 Chronic inflammatory demyelinating polyneuritis

== ENCOUNTER 2019-10-17 14:11 | Inpatient (IN) | payer BC, OTHER ==
[~2019-10-17] VITALS: Ht 172.7 cm; Wt 115.0 kg
[2019-10-17] MEDS ORDERED: methylPREDNISolone INJ 125 MG/2 ML VIAL (J2930) IV ONE (14:45)
[2019-10-17] MEDS: COMBIVENT RESPIMAT 100-20MCG INHALER 4GM INH PRN ×3 (15:11→16:06)
[2019-10-17 15:18] LABS: BASO # 0.1 10^3/uL (0.0-0.2); BASO % 0.6 % (0.0-1.0); EOS # 0.3 10^3/uL (0.0-0.5); EOS % 3.2 % (0.0-3.0); HEMOGLOBIN 14.9 g/dl (13.5-17.5); LYMPH % 35.7 % (24.0-44.0); MEAN CORPUSCULAR HEMOGLOBIN 28.5 pg (27.0-33.0); MEAN CORPUSCULAR HGB CONC 33.1 g/dl (32.0-36.5); MONO # 0.9 10^3/uL (0.0-0.8); MONO % 10.4 % (0.0-5.0); NEUTROPHILS # 4.2 10^3/uL (1.5-8.5); NEUTROPHILS % 49.7 % (36.0-66.0); PLATELET COUNT, AUTOMATED 339 10^3/uL (150-450); RED BLOOD COUNT 5.23 10^6/uL (4.30-6.10); WHITE BLOOD COUNT 8.5 10^3/uL (4.0-10.0)
[2019-10-17 15:34] LABS: ALT/SGPT 85 U/L (12-78); BILIRUBIN,DIRECT 0.3 MG/DL (0.0-0.2); BILIRUBIN,TOTAL 1.1 MG/DL (0.2-1.0); CK-MB VALUE MASS < 1.0 NG/ML (<3.6); CPK CREATINE PHOSPHOKINASE 104 U/L (39-308); MB/CK RELATIVE INDEX 0.96 (< OR =4); NT-PRO BNP 13 PG/ML (<125); TOTAL PROTEIN 7.2 GM/DL (6.4-8.2); TROPONIN I < 0.02 NG/ML (< 0.10)
[2019-10-17] MEDS ORDERED: ROPI1TAB3 PO (16:11)
[2019-10-17] MEDS ORDERED: BACL10TA8 PO (16:11)
[2019-10-17] MEDS ORDERED: TRAZ1TAB10 PO (16:11)
[2019-10-17] MEDS ORDERED: POTA10TA14 PO (16:11)
[2019-10-17] MEDS ORDERED: PANT-23 PO (16:11)
[2019-10-17] MEDS ORDERED: CYCL-707 PO (16:11)
[2019-10-17] MEDS ORDERED: METO1TAB33 PO (16:11)
[2019-10-17] MEDS ORDERED: PRED10TA2 PO (16:11)
[2019-10-17] MEDS ORDERED: BACT800T5 PO (16:11)
[2019-10-17] MEDS ORDERED: VITA50005 PO (16:11)
[2019-10-17] MEDS ORDERED: GABA-843 PO (16:13)
[2019-10-17] MEDS ORDERED: DULO1CAP5 PO (16:13)
[2019-10-17] MEDS ORDERED: HYDR25TAB PO (16:13)
[2019-10-17] MEDS ORDERED: KETOROLAC 30 MG/ML 1ML VIAL As Ordered ONE (16:35)
[2019-10-17] MEDS ORDERED: KETOROLAC 30 MG/ML 1ML VIAL IV ONE (16:45)
[2019-10-17] MEDS ORDERED: ISOVUE-370 76% 100ML VIAL As Ordered ONE (16:49)
--- NOTE | 2019-10-17 17:19 | REPVR ---
PROCEDURE INFORMATION: Exam: CT Angiography Chest With Contrast Exam date and time: 10/17/2019 5:05 PM Age: 44 years old Clinical indication: Shortness of breath; Additional info: R/O pe TECHNIQUE: Imaging protocol: Computed tomographic angiography of the chest with intravenous contrast. 3D rendering: MIP and/or 3D reconstructed images were created by the technologist. Radiation optimization: All CT scans at this facility use at least one of these dose optimization techniques: automated exposure control; mA and/or kV adjustment per patient size (includes targeted exams where dose is matched to clinical indication); or iterative reconstruction. Contrast material: ISOVUE 370; Contrast volume: 75 ml; Contrast route: IV; COMPARISON: [facility] PORTABLE CHEST X-RAY 10/17/2019 3:18 PM FINDINGS: Limitations: Mild motion. Pulmonary arteries: There is suboptimal and heterogeneous opacification of the pulmonary arteries, with average density in the main pulmonary artery of approximately 130 Hounsfield units (image [id number]), while optimal is at least 211 Hounsfield units. Pulmonary embolus can neither be confirmed nor excluded. Aorta: The thoracic aorta is nonaneurysmal. Lungs: The lungs demonstrate dependent atelectasis, left more than right. There could be a component of airspace consolidation posteriorly in the left lower lobe and inferiorly in the lingula. There also mild patchy ground-glass opacities throughout the lungs, which could reflect microatelectasis, edema or pneumonitis. Pleural space: Unremarkable. No pneumothorax. No pleural effusion. Heart: Unremarkable. No cardiomegaly. No pericardial effusion. Lymph nodes: Unremarkable. No enlarged lymph nodes. Liver: The liver is fatty in density. Bones/joints: Degenerative changes involve the spine. Soft tissues: Unremarkable. IMPRESSION: 1. Suboptimal exam for the evaluation of pulmonary embolus as above. Pulmonary embolus can neither be confirmed nor excluded. 2. Bilateral dependent atelectasis, left more than right, with potential component of airspace consolidation posteriorly in the left lower lobe and inferiorly in the lingula. 3. Mild patchy ground-glass opacities throughout the lungs, could reflect microatelectasis, edema or pneumonitis. 4. Fatty liver. Electronically signed by: Prieto Murphy On 10/17/2019 17:19:13 PM
--- NOTE | 2019-10-17 17:23 | REP ---
PORTABLE CHEST X-RAY: SINGLE VIEW. HISTORY: Dyspnea and cough. FINDINGS: Monitoring electrodes overlie the chest. There is subsegmental atelectasis in the lung bases bilaterally. Relatively low level of inspiration. Cardiomediastinal silhouette is unremarkable. Pulmonary vasculature is not increased. IMPRESSION: Bibasilar subsegmental atelectasis. Relatively low level of inspiration. Otherwise no acute disease. Electronically Signed by Aram Michelle MD 10/18/2019 08:18 A
[2019-10-17] MEDS ORDERED: AZITHROMYCIN INJ 500 MG, VIAL MATE ADAPTER 1 EACH in D5W 250 ML IV SCH (18:00)
[2019-10-17] MEDS ORDERED: ACETAMINOPHEN 325 MG TAB PO PRN (18:15)
--- NOTE | 2019-10-17 18:41 | HPEPDOC ---
General Date of Admission October 17, 2019 at 18:07 Date of Service: October 17, 2019 Chief Complaint The patient is a 44-year-old male who presented to the hospital from oncologys office for worsening shortness of breath History of Present Illness Patient is a 44-year-old male with a PMHx of Chronic inflammatory demyelinating polyneuropathy (Dx 03/2019, Follows with Neurology), Restrictive lung disease (Follows with Dr. Galindo), Hx of Metapneumovirus PNA (10/2018, 01/2019), HTN, Depression, Kidney Stones, who presented to the hospital with complaints of worsening. She is of breath over one month duration. Patient is reported that over the course of the month. Hes been having progressive shortness of breath. She was last seen by his receiving clerk approximately 2 weeks ago. . He notes that at that time, his breathing was doing fine. Patient reports that he chronically takes prednisone 20 mg, and there is not been any recent adjustments to this medication. Patient reported that today upon waking up. He was experiencing worsening wheezing and associated coughing with green/thick sputum. Patient has also reported chest tightness, which she attributes to his difficulty breathing. He does deny any chest pain. He does report some palpitations. He has denied any nausea, vomiting, abdominal pain, constipation, diarrhea or urinary discomfort. He is not aware of any recent fevers or chills. Patient reports that his appetite is poor, but has noted an increase in his weight that he attributes to the prednisone. Home Medications Scheduled Aspirin (Aspirin EC) 81 Mg Tablet.dr, 81 MG PO DAILY, (Reported) Baclofen (Baclofen) 10 Mg Tablet, 10 MG PO TID, (Reported) Calcitriol (Calcitriol) 0.25 Mcg Capsule, 0.25 MCG PO DAILY, (Reported) Calcium Carbonate (Tums) 200 Mg Tab.chew, 1,000 MG PO TID, (Reported) WITH MEALS Cyclobenzaprine HCl (Cyclobenzaprine HCl) 10 Mg Tablet, 10 MG PO QHS, (Reported) Duloxetine Hcl (Duloxetine HCl) 30 Mg Capsule.dr, 60 MG PO DAILY, (Reported) Ergocalciferol (Vitamin D2) (Vitamin D2) 50,000 Units Cap, 50,000 UNITS PO QWEEK, (Reported) MONDAYS Gabapentin (Gabapentin) 300 Mg Capsule, 1,200 MG PO TID, (Reported) Hydrochlorothiazide (Hydrochlorothiazide) 25 Mg Tablet, 25 MG PO DAILY, (Reported) Metoprolol Succinate (Metoprolol Succinate) 100 Mg Tab.er.24h, 100 MG PO DAILY, (Reported) Pantoprazole Sodium (Pantoprazole Sodium) 40 Mg Tablet.dr, 40 MG PO BID, (Reported) Potassium Chloride (Potassium Chloride) 10 Meq Tablet.er, 20 MEQ PO DAILY, (Reported) Prednisone (Prednisone) 10 Mg Tablet, 20 MG PO DAILY, (Reported) Ropinirole HCl (Ropinirole HCl) 1 Mg Tablet, 1 MG PO QHS, (Reported) Sulfamethoxazole/Trimethoprim (Bactrim Ds Tablet) 1 Each Tablet, 1 TAB PO 3XW, (Reported) MON/MON/FRI Trazodone HCl (Trazodone HCl) 50 Mg Tablet, 50 MG PO QHS, (Reported) Zolpidem Tartrate (Zolpidem Tartrate) 5 Mg Tablet, 5 MG PO QHS, (Reported) Scheduled PRN Acetaminophen (Acetaminophen) 325 Mg Tablet, 650 MG PO Q6H PRN for PAIN, (Repor josé) Allergies Coded Allergies: TAPE (Verified Allergy, Intermediate, HIVES, 04/03/19) PLASTIC TAPE, PAPER TAPE [place] silver (Verified Allergy, Intermediate, HIVES, 04/03/19) Past Medical History Medical History Chronic inflammatory demyelinating polyneuropathy (Dx 03/2019, Follows with Neurology), Restrictive lung disease (Follows with Dr. 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 Review of Systems Other systems 10 point review of systems complete, all negative otherwise stated in HPI Vital Signs - Vitals: BP 124/74, HR 123, RR 22, Sat 93%NC3L, Temp 98.5F - General: Lying in bed, Difficulty speaking, AAOx3 - HEENT: NC, AT, PERRLA, EOMI - CVS: Tachycardic, Regular, +S1S2 - Lungs: Poor inspiratory effort bilaterally, Diffuse expiratory wheezing, no appreciable rhonchi or crackles - Abdomen: Soft, Non-distended, Non-tender - Extremities: No lower extremity edema, No calf tenderness - Neuro: Decreased strength at bilateral lower extremities and upper extremities; patient reports that this is his baseline - Skin: No visible rashes Laboratory Data Labs 24H Laboratory Tests 2 10/17/19 14:48: Coronavirus (COVID-19)(PCR) NEGATIVE 10/17/19 14:49: Immature Granulocyte % (Auto) 0.4, Neutrophils (%) (Auto) 49.7, Lymphocytes (%) (Auto) 35.7, Monocytes (%) (Auto) 10.4H, Eosinophils (%) (Auto) 3.2H, Basophils (%) (Auto) 0.6, Neutrophils # (Auto) 4.2, Lymphocytes # (Auto) 3.0, Monocytes # (Auto) 0.9H, Eosinophils # (Auto) 0.3, Basophils # (Auto) 0.1, Nucleated Red Blood Cells % (auto) 0.0, D-Dimer, Quantitative < 270.0, Total Bilirubin 1.1H, Direct Bilirubin 0.3H, Aspartate Amino Transf (AST/SGOT) 48H, Alanine Aminotransferase (ALT/SGPT) 85H, Alkaline Phosphatase 116, Total Creatine Kinase 104, Creatine Kinase MB < 1.0, Creatine Kinase MB Relative Index 0.96, Troponin I < 0.02, [id number]-Type Natriuretic Peptide 13, Total Protein 7.2, Albumin 4.0, Albumin/Globulin Ratio 1.25 10/17/19 14:58: POC Lactate (Misc Panel) 2.69*H 10/17/19 15:01: POC pH (Misc Panel) 7.394, POC Base Excess (Misc Panel) -1.0, POC Saturated Percent O2 (Misc) 97, POC pO2 (Misc Panel) 91.0, POC pCO2 (Misc Panel) 39.0, POC HCO3 (Misc Panel) 23.8, POC Total CO2 (Misc Panel) 25.0 10/17/19 15:04: POC Glucose (Misc Panel) 114H, POC Sodium (Misc Panel) 143, POC Potassium (Misc Panel) 3.6, POC Chloride (Misc Panel) 108, POC Total CO2 (Misc Panel) 24.0, POC Blood Urea Nitrogen (Misc Panel 15, POC Ionized Calcium (Misc Panel) 4.7, POC Creatinine (Misc Panel) 1.0, POC Hematocrit (Misc Panel) 44.0 CBC/BMP Laboratory Tests 10/17/19 14:49 Microbiology Microbiology 10/17/19 Blood Culture, Received Pending 10/17/19 Respiratory Virus Panel (PCR) (PHYLLIS) - Final, Complete 10/17/19 Blood Culture, Received Pending Plan / VTE VTE Prophylaxis Ordered?: Yes Plan Plan Progressive shortness of breath / acute hypoxic respiratory failure - possibly 2 /2 exacerbation of underlying lung disease, possibly 2/2 community acquired pneumonia, less likely 2/2 pulmonary embolism - Patient has presented to the hospital with worsening shortness of breath - At baseline patient uses 2 L of oxygen at nighttime, however is now requiring it continuously - ABG 7.39// on 2-3 L NC oxygen - D-Dimer < 270 - COVID 19 / Respiratory panel negative - Blood cultures pending - CXR 10/16: Bibasilar subsegmental atelectasis. Relatively low level of inspiration. Otherwise no acute disease. - CTA chest 10/16: 1. Suboptimal exam for the evaluation of pulmonary embolus as above. Pulmonary embolus can neither be confirmed nor excluded. 2. Bilateral dependent atelectasis, left more than right, with potential component of airspace consolidation posteriorly in the left lower lobe and inferiorly in the lingula. 3. Mild patchy ground-glass opacities throughout the lungs, could reflect microatelectasis, edema or pneumonitis. 4. Fatty liver. - In the emergency room, patient has received inhaled therapy and a loading dose of Solu-Medrol - Will check strep / legionella antigen / sputum culture - Will c/w Solumedrol 80 q8h - Will start inhaled therapy - Will start Acapella / IS / Guaifenesin Elevated AST / ALT - No abdominal pain / Nausea / Vomiting - Imaging noted above with possible fatty liver - Will have outpatient follow up with PCP Restrictive lung disease - Follows with Dr. Galindo; last seen ~2 weeks ago - See above Chronic inflammatory demyelinating polyneuropathy - Dx 03/2019, Follows with Neurology - Patient was recently evaluated by Dr. 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
[2019-10-17] MEDS ORDERED: cefTRIAXone SOD 1 GM in D5W MINI-BAG PLUS 50 ML IV SCH (20:00)
[2019-10-17] MEDS: GABAPENTIN 300 MG CAP PO SCH (20:03)
[2019-10-17] MEDS: CYCLOBENZAPRINE 10MG TABLET PO SCH (20:03)
[2019-10-17] MEDS: BACLOFEN 10 MG TAB PO SCH (20:03)
[2019-10-17] MEDS: LEVALBUTEROL 1.25 MG/0.5 ML CONCENTRATE NEB INH SCH (20:03)
[2019-10-17] MEDS: ACETAMINOPHEN TAB 650MG DOSE (2X325MG) PO PRN (20:17)
[2019-10-17] MEDS: PANTOPRAZOLE 40MG TAB (PROTONIX) PO SCH (20:17)
[2019-10-17] MEDS: guaiFENesin ER 600 MG TAB PO SCH (20:19)
[2019-10-17 20:20] LABS: ABG HCO3 20.2 MEQ/L (22.0-26.0); ABG O2 SATURATION 97.8 % (95.0-99.0); ABG PARTIAL PRESSURE CO2 34.6 mmHg (35.0-45.0); ABG PARTIAL PRESSURE O2 111.5 mmHg (75.0-100.0); ABG STANDARD HCO3 21.2 MEQ/L (22.0-26.0); ABG TOTAL CO2 21.3 MEQ/L (22.0-29.0); ABG pH (ARTERIAL) 7.384 UNITS (7.350-7.450)
--- NOTE | 2019-10-17 22:11 | ECGEPIP ---
[facility] - ED Test Date: 2019-10-17 Pat Name: ROLLY YANCEY Department: Room: - Gender: Male Safety Companion: yun : 1975 Requested By: Gian Stoner Order Number: [id number] Reading MD: Gian Cleary Measurements Intervals [place] Rate: 130 P: 55 IN: 137 QRS: -14 QRSD: 101 T: 13 QT: 317 QTc: 467 Interpretive Statements SINUS TACHYCARDIA MODERATE INTRAVENTRICULAR CONDUCTION DELAY NO PRIORS FOR COMPARISON Electronically Signed on 10-17-2019 22:10:48 EDT by Gian Cleary
[2019-10-17 23:15] VITALS: BP 136/84
[2019-10-18] MEDS: rOPINIRole 1MG TAB PO SCH ×2 (00:18→21:09)
[2019-10-18] MEDS: methylPREDNISolone INJ 125 MG/2 ML VIAL (J2930) IV SCH ×4 (00:18→14:11)
[2019-10-18] MEDS: HEPARIN SOD (PORCINE) 5000UNITS/ML VIAL (J1644 PER 1000UNITS) SC SCH ×4 (00:19→21:11)
[2019-10-18] MEDS: LEVALBUTEROL 1.25 MG/0.5 ML CONCENTRATE NEB INH PRN ×2 (01:34→08:40)
[2019-10-18 04:00] VITALS: BP 124/66
[2019-10-18] MEDS ORDERED: diphenhydrAMINE 50MG CAP PO ONE (04:15)
[2019-10-18 05:50] LABS: BASO % 0.2 % (0.0-1.0); HEMATOCRIT 39.9 % (42.0-52.0); HEMOGLOBIN 13.4 g/dl (13.5-17.5); LYMPH # 1.3 10^3/uL (1.5-5.0); LYMPH % 10.9 % (24.0-44.0); MEAN CORPUSCULAR HEMOGLOBIN 29.1 pg (27.0-33.0); MEAN CORPUSCULAR HGB CONC 33.6 g/dl (32.0-36.5); MEAN CORPUSCULAR VOLUME 86.7 fl (80.0-96.0); MONO # 0.1 10^3/uL (0.0-0.8); MONO % 0.8 % (0.0-5.0); NEUTROPHILS # 10.4 10^3/uL (1.5-8.5); NEUTROPHILS % 87.2 % (36.0-66.0); PLATELET COUNT, AUTOMATED 316 10^3/uL (150-450)
[2019-10-18 06:19] LABS: BLOOD UREA NITROGEN 17 MG/DL (7-18); CALCIUM LEVEL 9.2 MG/DL (8.5-10.1); CARBON DIOXIDE LEVEL 20 MEQ/L (21-32); CHLORIDE LEVEL 108 MEQ/L (98-107); CREATININE FOR GFR 1.18 MG/DL (0.70-1.30); GLOMERULAR FILTRATION RATE > 60.0 (>60); GLUCOSE, FASTING 233 MG/DL (70-100); POTASSIUM SERUM 4.1 MEQ/L (3.5-5.1); SODIUM LEVEL 141 MEQ/L (136-145)
[2019-10-18] MEDS: LEVALBUTEROL 1.25 MG/0.5 ML CONCENTRATE NEB INH SCH ×4 (07:49→20:08)
[2019-10-18 08:00] VITALS: BP 136/81
[2019-10-18 08:47] LABS: ABG BASE EXCESS -7.1 (-2.0-2.0); ABG HCO3 16.5 MEQ/L (22.0-26.0); ABG O2 SATURATION 91.6 % (95.0-99.0); ABG PARTIAL PRESSURE CO2 28.5 mmHg (35.0-45.0); ABG STANDARD HCO3 18.6 MEQ/L (22.0-26.0); ABG TOTAL CO2 17.4 MEQ/L (22.0-29.0); ABG pH (ARTERIAL) 7.381 UNITS (7.350-7.450)
[2019-10-18] MEDS: GABAPENTIN 300 MG CAP PO SCH ×3 (08:48→21:09)
[2019-10-18] MEDS: PANTOPRAZOLE 40MG TAB (PROTONIX) PO SCH ×2 (08:48→21:10)
[2019-10-18] MEDS: ASPIRIN 81 MG ENTERIC TAB PO SCH (08:48)
[2019-10-18] MEDS: DULoxetine 30 MG CAP (CYMBALTA) PO SCH (08:48)
[2019-10-18] MEDS: METOPROLOL SUCC (TopROL XL) 100MG *XL* TAB PO SCH (08:49)
[2019-10-18] MEDS: guaiFENesin ER 600 MG TAB PO SCH ×2 (08:49→21:08)
[2019-10-18] MEDS: BACLOFEN 10 MG TAB PO SCH ×3 (08:50→21:10)
[2019-10-18] MEDS: CALCITRIOL 0.25 MCG CAP (S0169) PO SCH (08:50)
[2019-10-18] MEDS: CALCIUM CARBONATE 500 MG CHEW U/D PO SCH ×3 (08:50→17:11)
[2019-10-18] MEDS: BACTRIM 160MG/800MG DS TAB PO SCH (08:52)
[2019-10-18] MEDS ORDERED: hydroCHLOROthiazide 25 MG TAB PO SCH (09:00)
[2019-10-18] MEDS: NS 1,000 ML IV SCH (10:25)
--- NOTE | 2019-10-18 11:24 | IPNPDOC ---
Text Note Date of Service The patient was seen on 10/18/19. NOTE Subjective: Patient is a 44-year-old male with a PMHx of Chronic inflammatory demyelinating polyneuropathy (Dx 03/2019, Follows with Neurology), Restrictive lung disease (Follows with Dr. Galindo), Hx of Metapneumovirus PNA (10/2018, 01/2019), HTN, Depression, Kidney Stones, who presented to the hospital with complaints of worsening. She is of breath over one month duration. Patient is reported that over the course of the month. Hes been having progres sive shortness of breath. She was last seen by his plastic surgery nurse approximately 2 weeks ago. He notes that at that time, his breathing was doing fine. Patient reports that he chronically takes prednisone 20 mg, and there is not been any recent adjustments to this medication. Patient reported that today upon waking up. He was experiencing worsening wheezing and associated coughing with green/thick sputum. Patient has also reported chest tightness, which she attributes to his difficulty breathing. He does deny any chest pain. He does report some palpitations. Patient was seen and examined at the bedside. . Currently, patient reports that his breathing remains unchanged from yesterday. Still reports a cough. Denies any pleuritic chest pain or palpitations. Denies any nausea, vomiting, abdominal pain, diarrhea or urinary discomfort. Objective: Vitals (See below) General: Lying in bed, appears to be restless, but is awake, alert and oriented 3 HEENT: NC, AT CVS: +S1S2 Lungs: Poor inspiratory effort b/l, expiratory wheezing can be appreciated bilaterally. No rhonchi or crackles Abdomen: remains soft without any distention or tenderness, obese Extremities: Lower extremity did not reveal any evidence of edema, bilateral leg splints noted, - Calf tenderness Assessment and plan: Progressive shortness of breath / acute hypoxic respiratory failure - possibly 2/2 exacerbation of underlying lung disease, possibly 2/2 community acquired pneumonia, less likely 2/2 pulmonary embolism - Patient reports that his breathing, still has not changed significantly - Patient's saturations have varied, as required oxygen at night. However, dur ing the daytime his oxygen requirement has improved - Repeat ABGs have shown no increasing PCO2 - D-Dimer < 270 - COVID19 / Respiratory panel negative - Blood cultures remain pending - CXR 10/16: Bibasilar subsegmental atelectasis. Relatively low level of inspiration. Otherwise no acute disease. - CTA chest 10/16: 1. Suboptimal exam for the evaluation of pulmonary embolus as above. Pulmonary embolus can neither be confirmed nor excluded. 2. Bilateral dependent atelectasis, left more than right, with potential component of airspace consolidation posteriorly in the left lower lobe and inferiorly in the lingula. 3. Mild patchy ground-glass opacities throughout the lungs, could reflect microatelectasis, edema or pneumonitis. 4. Fatty liver. - Will check strep / legionella antigen / sputum culture - c/w Solumedrol - c/w Inhaled therapy as ordered - c/w Acapella / IS / Guaifenesin Lactic acidosis - likely 2/2 work of breathing, less likely 2/2 sepsis - Patient remains afebrile and hemodynamically stable - Will start IV fluid hydration Elevated AST / ALT - No abdominal pain / Nausea / Vomiting - Imaging noted above with possible fatty liver - Will have outpatient follow up with PCP Restrictive lung disease - Follows with Dr. Galindo; last seen ~2 weeks ago - See above Reported Chronic inflammatory demyelinating polyneuropathy - Dx 03/2019, Follows with Neurology - Discussed with Neurology; patient will need to have nerve conduction study before a formal diagnosis can be given - Patient was recently evaluated by Dr. Zamorano, Oncology for possible POEMS syndrome; and had bone marrow biopsy completed that was reported to be negative - c/w Baclofen and Flexeril Hx of Metapneumovirus PNA (10/2018, 01/2019) HTN - Will DC HCTZ - c/w Metoprolol with holding parameters Depression - c/w Duloxetine RLS - c/w Ropinirole History of kidney Stones GERD - c/w Protonix DVT prophylaxis - c/w Heparin Disposition: - Discussed case with oncology, neurology and pulmonology; at this point, will continue with current management - Will avoid respiratory depressant medications; currently does not appear to be any indication for IVIG - Will reach out to outpatient plastic surgery nurse for further recommendations VS,Fishbone, I+O VS, Fishbone, I+O Laboratory Tests 10/17/19 14:49 10/18/19 05:20 Vital Signs Date Time Temp Pulse Resp B/P (MAP) Pulse Ox O2 Delivery O2 Flow Rate FiO2 5/8/20 08:49 129 136/81 10/18/19 08:00 97.5 22 92 Nasal Cannula 4.0 I&O- Last 24 Hours up to 6 AM 10/18/19 06:00 Intake Total 550 ml Output Total 0 ml Balance 550 ml MUAIR HARRISON MD October 18, 2019 11:24
[2019-10-18] MEDS ORDERED: NS 500 ML IV ONE (11:30)
[2019-10-18 12:00] VITALS: BP 143/67
[2019-10-18] MEDS: ONDANSETRON 4MG/2ML VIAL IV PRN (14:11)
[2019-10-18 16:00] VITALS: BP 119/59
[2019-10-18] MEDS: ACETAMINOPHEN TAB 650MG DOSE (2X325MG) PO PRN (17:11)
[2019-10-18] MEDS ORDERED: predniSONE 20 MG TAB PO ONE (18:00)
[2019-10-18 20:00] VITALS: BP 141/80
[2019-10-18] MEDS: CYCLOBENZAPRINE 10MG TABLET PO SCH (21:10)
[2019-10-18] MEDS ORDERED: traZODone 50 MG TAB PO ONE (22:30)
[2019-10-18] MEDS ORDERED: KETOROLAC 30 MG/ML 1ML VIAL IV ONE (22:30)
[2019-10-19] VITALS (7 sets, daily range): BP systolic 110–170; BP diastolic 63–86
[2019-10-19] MEDS: NS 1,000 ML IV SCH ×2 (03:15→17:49)
[2019-10-19 05:44] LABS: BASO % 0.1 % (0.0-1.0); HEMATOCRIT 34.8 % (42.0-52.0); LYMPH # 2.1 10^3/uL (1.5-5.0); LYMPH % 12.6 % (24.0-44.0); MEAN CORPUSCULAR HEMOGLOBIN 29.2 pg (27.0-33.0); MEAN CORPUSCULAR HGB CONC 32.8 g/dl (32.0-36.5); MONO % 6.3 % (0.0-5.0); NEUTROPHILS # 13.2 10^3/uL (1.5-8.5); PLATELET COUNT, AUTOMATED 298 10^3/uL (150-450); RED BLOOD COUNT 3.91 10^6/uL (4.30-6.10); WHITE BLOOD COUNT 16.5 10^3/uL (4.0-10.0)
[2019-10-19 05:50] LABS: BLOOD UREA NITROGEN 19 MG/DL (7-18); CALCIUM LEVEL 8.8 MG/DL (8.5-10.1); CARBON DIOXIDE LEVEL 24 MEQ/L (21-32); CHLORIDE LEVEL 107 MEQ/L (98-107); GLOMERULAR FILTRATION RATE > 60.0 (>60); GLUCOSE, FASTING 148 MG/DL (70-100); POTASSIUM SERUM 4.3 MEQ/L (3.5-5.1); SODIUM LEVEL 139 MEQ/L (136-145)
[2019-10-19 05:51] LABS: HEMOGLOBIN 11.4 g/dl (13.5-17.5)
[2019-10-19] MEDS: HEPARIN SOD (PORCINE) 5000UNITS/ML VIAL (J1644 PER 1000UNITS) SC SCH ×3 (05:59→21:13)
[2019-10-19] MEDS: LEVALBUTEROL 1.25 MG/0.5 ML CONCENTRATE NEB INH SCH (08:07)
[2019-10-19] MEDS: guaiFENesin ER 600 MG TAB PO SCH ×2 (09:05→21:12)
[2019-10-19] MEDS: GABAPENTIN 300 MG CAP PO SCH ×3 (09:05→21:10)
[2019-10-19] MEDS: CALCITRIOL 0.25 MCG CAP (S0169) PO SCH (09:05)
[2019-10-19] MEDS: DULoxetine 30 MG CAP (CYMBALTA) PO SCH (09:05)
[2019-10-19] MEDS: CALCIUM CARBONATE 500 MG CHEW U/D PO SCH ×3 (09:05→17:24)
[2019-10-19] MEDS: ASPIRIN 81 MG ENTERIC TAB PO SCH (09:06)
[2019-10-19] MEDS: PANTOPRAZOLE 40MG TAB (PROTONIX) PO SCH ×2 (09:06→21:12)
[2019-10-19] MEDS: METOPROLOL SUCC (TopROL XL) 100MG *XL* TAB PO SCH (09:06)
[2019-10-19] MEDS: BACLOFEN 10 MG TAB PO SCH ×3 (09:06→21:11)
[2019-10-19] MEDS: predniSONE 20 MG TAB PO SCH (09:06)
--- NOTE | 2019-10-19 09:38 | IPNPDOC ---
Text Note Date of Service The patient was seen on 10/19/19. NOTE Subjective: Patient is a 44-year-old male with a PMHx of Chronic inflammatory demyelinating polyneuropathy (Dx 03/2019, Follows with Neurology), Restrictive lung disease (Follows with Dr. Galindo), Hx of Metapneumovirus PNA (10/2018, 01/2019), HTN, Depression, Kidney Stones, who presented to the hospital with complaints of worsening. She is of breath over one month duration. Patient is reported that over the course of the month. Hes been having progres sive shortness of breath. She was last seen by his ski lift mechanic approximately 2 weeks ago. He notes that at that time, his breathing was doing fine. Patient reports that he chronically takes prednisone 20 mg, and there is not been any recent adjustments to this medication. Patient reported that today upon waking up. He was experiencing worsening wheezing and associated coughing with green/thick sputum. Patient has also reported chest tightness, which she attributes to his difficulty breathing. He does deny any chest pain. He does report some palpitations. Patient was seen and examined at the bedside. Currently he notes that he feels a little better. Reports that he does experience some SOB with ambulation. Denies any chest tightness or palpitations. Has had an episode of vomiting yesterday that has since resolved. Denies any abdominal pain, diarrhea or dysuria. Objective: Vitals (See below) General: Lying in bed, appears more comfortable, AAOx3 HEENT: NC, AT CVS: +S1S2 Lungs: Improved aeration bilaterally. No significant wheezing at lower air solis, no rhonchi or crackles Abdomen: Abdomen is soft, obese, nondistended and nontender Extremities: Lower extremities are free of any pitting edema, - Calf tenderness Assessment and plan: Progressive shortness of breath / acute hypoxic respiratory failure - likely 2/2 bilateral lower lobe atelectasis - possibly 2/2 progression of restrictive lung disease, unlikely 2/2 CAP, unlikely 2/2 PE - Currently patient has reported improvement in her breathing - Patient will require continuous oxygen as his restrictive lung disease progresses, as a result of his underlying neurologic disorder - Repeat ABGs have not suggested features of ventilatory problems at this time - D-Dimer < 270 - COVID19 / Respiratory panel negative / Blood cultures negative at 24 hours - CXR 10/16: Bibasilar subsegmental atelectasis. Relatively low level of inspiration. Otherwise no acute disease. - CTA chest 10/16: 1. Suboptimal exam for the evaluation of pulmonary embolus as above. Pulmonary embolus can neither be confirmed nor excluded. 2. Bilateral dependent atelectasis, left more than right, with potential component of airspace consolidation posteriorly in the left lower lobe and inferiorly in the lingula. 3. Mild patchy ground-glass opacities throughout the lungs, could reflect microatelectasis, edema or pneumonitis. 4. Fatty liver. - Will restart Prednisone and taper back to home dose; s/p Solumedrol - c/w Inhaled therapy as needed - c/w Acapella / IS / Guaifenesin - Cased was discussed with outpatient ski lift mechanic; hypoxia likely result of bilateral atelectasis, may require ventilatory support (ie. BIPAP) if his condition worsens over time - Discussed with case management for approval of continuous oxygen while at home Lactic acidosis - likely 2/2 work of breathing, less likely 2/2 sepsis - Patient remains afebrile and hemodynamically stable - Will c/w gentle IV fluid hydration Elevated AST / ALT - No abdominal pain / Nausea / Vomiting - Imaging noted above with possible fatty liver - Will have outpatient follow up with PCP Restrictive lung disease 2/2 below - Follows with Dr. Galindo; last seen ~2 weeks ago - See above Reported Chronic inflammatory demyelinating polyneuropathy - Dx 03/2019 by Neurologist in [facility] - Has started establishing care with Neurology in [place]; workup in process - Discussed with Neurology; patient will need to have nerve conduction study before a formal diagnosis can be given - Patient was recently evaluated by Dr. Zamorano, Oncology for possible POEMS syndrome; and had bone marrow biopsy completed that was reported to be negative - c/w Baclofen and Flexeril - c/w PT / OT until cleared for DC home / rehabilitation Hx of Metapneumovirus PNA (10/2018, 01/2019) HTN - Will DC HCTZ - c/w Metoprolol with holding parameters Depression - c/w Duloxetine RLS - c/w Ropinirole History of kidney Stones GERD - c/w Protonix DVT prophylaxis - c/w Heparin Disposition: - Anticipate transition home with continuous oxygen - Will have outpatient follow up with Pulmonology and Neurology VSAmy I+O VS, Amy, I+O Laboratory Tests 10/19/19 04:52 Vital Signs Date Time Temp Pulse Resp B/P (MAP) Pulse Ox O2 Delivery O2 Flow Rate FiO2 10/19/19 09:06 95 137/80 10/19/19 08:00 97.7 20 92 Nasal Cannula 4.0 I&O- Last 24 Hours up to 6 AM 10/19/19 06:00 Intake Total 3392 ml Output Total 600 ml Balance 2792 ml UMAIR HARRISON MD October 19, 2019 09:38
[2019-10-19] MEDS: ACETAMINOPHEN TAB 650MG DOSE (2X325MG) PO PRN (13:37)
[2019-10-19] MEDS: ONDANSETRON 4MG/2ML VIAL IV PRN (18:29)
[2019-10-19] MEDS: rOPINIRole 1MG TAB PO SCH (21:11)
[2019-10-19] MEDS: CYCLOBENZAPRINE 10MG TABLET PO SCH (21:11)
[2019-10-19] MEDS ORDERED: KETOROLAC 30 MG/ML 1ML VIAL IV ONE (22:30)
[2019-10-19] MEDS ORDERED: traZODone 50 MG TAB PO ONE (22:30)
[2019-10-20] VITALS: BP 136/80
[2019-10-20 04:00] VITALS: BP 139/85
[2019-10-20 05:37] LABS: BASO % 0.2 % (0.0-1.0); EOS % 0.3 % (0.0-3.0); HEMATOCRIT 34.9 % (42.0-52.0); HEMOGLOBIN 11.2 g/dl (13.5-17.5); LYMPH # 3.4 10^3/uL (1.5-5.0); LYMPH % 28.2 % (24.0-44.0); MEAN CORPUSCULAR HEMOGLOBIN 28.7 pg (27.0-33.0); MEAN CORPUSCULAR HGB CONC 32.1 g/dl (32.0-36.5); MEAN CORPUSCULAR VOLUME 89.5 fl (80.0-96.0); MONO # 0.8 10^3/uL (0.0-0.8); MONO % 6.8 % (0.0-5.0); NEUTROPHILS # 7.5 10^3/uL (1.5-8.5); NEUTROPHILS % 62.6 % (36.0-66.0); PLATELET COUNT, AUTOMATED 272 10^3/uL (150-450); WHITE BLOOD COUNT 11.9 10^3/uL (4.0-10.0)
[2019-10-20] MEDS: HEPARIN SOD (PORCINE) 5000UNITS/ML VIAL (J1644 PER 1000UNITS) SC SCH ×3 (05:59→20:49)
[2019-10-20 06:02] LABS: BLOOD UREA NITROGEN 20 MG/DL (7-18); CALCIUM LEVEL 8.4 MG/DL (8.5-10.1); CARBON DIOXIDE LEVEL 27 MEQ/L (21-32); CHLORIDE LEVEL 110 MEQ/L (98-107); CREATININE FOR GFR 0.86 MG/DL (0.70-1.30); GLOMERULAR FILTRATION RATE > 60.0 (>60); GLUCOSE, FASTING 103 MG/DL (70-100); MAGNESIUM LEVEL 2.1 MG/DL (1.8-2.4); POTASSIUM SERUM 4.1 MEQ/L (3.5-5.1); SODIUM LEVEL 143 MEQ/L (136-145)
[2019-10-20 07:45] VITALS: BP 147/92
[2019-10-20] MEDS: PANTOPRAZOLE 40MG TAB (PROTONIX) PO SCH ×2 (08:36→20:47)
[2019-10-20] MEDS: METOPROLOL SUCC (TopROL XL) 100MG *XL* TAB PO SCH (08:36)
[2019-10-20] MEDS: guaiFENesin ER 600 MG TAB PO SCH ×2 (08:36→20:47)
[2019-10-20] MEDS: DULoxetine 30 MG CAP (CYMBALTA) PO SCH (08:37)
[2019-10-20] MEDS: CALCITRIOL 0.25 MCG CAP (S0169) PO SCH (08:37)
[2019-10-20] MEDS: BACLOFEN 10 MG TAB PO SCH ×3 (08:37→20:47)
[2019-10-20] MEDS: predniSONE 20 MG TAB PO SCH (08:37)
[2019-10-20] MEDS: ASPIRIN 81 MG ENTERIC TAB PO SCH (08:38)
[2019-10-20] MEDS: CALCIUM CARBONATE 500 MG CHEW U/D PO SCH ×3 (08:38→17:05)
[2019-10-20] MEDS: GABAPENTIN 300 MG CAP PO SCH ×3 (08:38→20:47)
[2019-10-20] MEDS: hydroCHLOROthiazide 25 MG TAB PO SCH (10:30)
--- NOTE | 2019-10-20 11:25 | IPNPDOC ---
Text Note Date of Service The patient was seen on 10/20/19. NOTE Subjective: Patient is a 44-year-old male with a PMHx of Chronic inflammatory demyelinating polyneuropathy (Dx 03/2019, Follows with Neurology), Restrictive lung disease (Follows with Dr. Galindo), Hx of Metapneumovirus PNA (10/2018, 01/2019), HTN, Depression, Kidney Stones, who presented to the hospital with complaints of worsening. She is of breath over one month duration. Patient is reported that over the course of the month. Hes been having progre ssive shortness of breath. She was last seen by his cnc mechanic approximately 2 weeks ago. He notes that at that time, his breathing was doing fine. Patient reports that he chronically takes prednisone 20 mg, and there is not been any recent adjustments to this medication. Patient reported that today upon waking up. He was experiencing worsening wheezing and associated coughing with green/thick sputum. Patient has also reported chest tightness, which she attributes to his difficulty breathing. He does deny any chest pain. He does report some palpitations. Patient was seen and examined at the bedside. Patient has reported improvement in breathing, no chest pain or palpitations. Reports some worsening of cough. Denies any nausea, vomiting, abdominal pain. Objective: Vitals (See below) General: Lying in bed, appears more comfortable, AAOx3 HEENT: NC, AT CVS: +S1S2 Lungs: Aeration improved, no rhonchi / crackles, upper airway wheezing noted Abdomen: Abdomen is soft, Nondistended, nontender, obesity Extremities: LE free of edema, - Calf tenderness Assessment and plan: Progressive shortness of breath / acute hypoxic respiratory failure - likely 2/2 bilateral lower lobe atelectasis - possibly 2/2 progression of restrictive lung disease, unlikely 2/2 CAP, unlikely 2/2 PE - Clinically has subjective improvement of breathing; physical with improved aeration - Patient will require continuous oxygen as his restrictive lung disease progresses, as a result of his underlying neurologic disorder - Repeat ABGs have not suggested features of ventilatory problems at this time - D-Dimer < 270 - COVID19 / Respiratory panel negative / Blood cultures negative at 24 hours - CXR 10/16: Bibasilar subsegmental atelectasis. Relatively low level of inspiration. Otherwise no acute disease. - CTA chest 10/16: 1. Suboptimal exam for the evaluation of pulmonary embolus as above. Pulmonary embolus can neither be confirmed nor excluded. 2. Bilateral dependent atelectasis, left more than right, with potential component of airspace consolidation posteriorly in the left lower lobe and inferiorly in the lingula. 3. Mild patchy ground-glass opacities throughout the lungs, could reflect microatelectasis, edema or pneumonitis. 4. Fatty liver. - c/w Prednisone; anticipate taper down to home dose of 20mg; s/p Solumedrol - c/w Inhaled therapy as needed - c/w Acapella / IS / Guaifenesin - Cased was discussed with outpatient cnc mechanic; hypoxia likely result of bilateral atelectasis, may require ventilatory support (ie. BIPAP) if his c ondition worsens over time - Discussed with case management for approval of continuous oxygen while at home - Anticipate discharge within 24 hours Lactic acidosis - likely 2/2 work of breathing, less likely 2/2 sepsis - Improved - Patient remains afebrile and hemodynamically stable - Will stop IV fluid hydration Elevated AST / ALT - No abdominal pain / Nausea / Vomiting - Imaging noted above with possible fatty liver - Will have outpatient follow up with PCP Restrictive lung disease 2/2 below - Follows with Dr. Galindo; last seen ~2 weeks ago - See above Reported Chronic inflammatory demyelinating polyneuropathy - Dx 03/2019 by Neurologist in [facility] - Has started establishing care with Neurology in [place]; workup in process - Discussed with Neurology; patient will need to have nerve conduction study before a formal diagnosis can be given - Patient was recently evaluated by Dr. Zamorano, Oncology for possible POEMS syndrome; and had bone marrow biopsy completed that was reported to be negative - c/w Baclofen and Flexeril - c/w PT / OT until cleared for DC home / rehabilitation Hx of Metapneumovirus PNA (10/2018, 01/2019) HTN - Will resume HCTZ - c/w Metoprolol with holding parameters Depression - c/w Duloxetine RLS - c/w Ropinirole History of kidney Stones GERD - c/w Protonix DVT prophylaxis - c/w Heparin Disposition: - c/w continuous oxygen; will establish for home - Will have outpatient follow up with Pulmonology and Neurology - Anticipate discharge within 24 hours VS,Fishbone, I+O VS, Fishbone, I+O Laboratory Tests 10/20/19 04:51 Vital Signs Date Time Temp Pulse Resp B/P (MAP) Pulse Ox O2 Delivery O2 Flow Rate FiO2 10/20/19 08:36 84 147/92 10/20/19 08:00 4.0 10/20/19 07:45 98.1 20 91 Nasal Cannula I&O- Last 24 Hours up to 6 AM 10/20/19 05:59 Intake Total 1920 ml Output Total 975 ml Balance 945 ml UMAIR HARRISON MD October 20, 2019 11:25
[2019-10-20 11:49] VITALS: BP 141/91
[2019-10-20] MEDS: ACETAMINOPHEN TAB 650MG DOSE (2X325MG) PO PRN (14:20)
[2019-10-20] MEDS ORDERED: IBUPROFEN 600 MG TAB PO PRN (14:30)
[2019-10-20 17:34] VITALS: BP 143/90
[2019-10-20] MEDS: CYCLOBENZAPRINE 10MG TABLET PO SCH (20:47)
[2019-10-20] MEDS: rOPINIRole 1MG TAB PO SCH (20:47)
[2019-10-20] MEDS ORDERED: traZODone 50 MG TAB PO SCH (21:00)
[2019-10-20 22:00] VITALS: BP 133/75
[2019-10-21] MEDS: HEPARIN SOD (PORCINE) 5000UNITS/ML VIAL (J1644 PER 1000UNITS) SC SCH (05:36)
[2019-10-21 06:00] VITALS: BP 132/76
[2019-10-21 06:46] LABS: BASO % 0.2 % (0.0-1.0); EOS # 0.2 10^3/uL (0.0-0.5); EOS % 1.7 % (0.0-3.0); HEMATOCRIT 37.1 % (42.0-52.0); HEMOGLOBIN 12.2 g/dl (13.5-17.5); LYMPH # 3.8 10^3/uL (1.5-5.0); MEAN CORPUSCULAR HEMOGLOBIN 28.6 pg (27.0-33.0); MEAN CORPUSCULAR HGB CONC 32.9 g/dl (32.0-36.5); MEAN CORPUSCULAR VOLUME 86.9 fl (80.0-96.0); MONO # 0.7 10^3/uL (0.0-0.8); MONO % 6.8 % (0.0-5.0); NEUTROPHILS # 5.4 10^3/uL (1.5-8.5); NEUTROPHILS % 51.8 % (36.0-66.0); PLATELET COUNT, AUTOMATED 291 10^3/uL (150-450); RED BLOOD COUNT 4.27 10^6/uL (4.30-6.10); WHITE BLOOD COUNT 10.3 10^3/uL (4.0-10.0)
[2019-10-21 07:25] LABS: BLOOD UREA NITROGEN 18 MG/DL (7-18); CARBON DIOXIDE LEVEL 29 MEQ/L (21-32); CHLORIDE LEVEL 105 MEQ/L (98-107); CREATININE FOR GFR 0.86 MG/DL (0.70-1.30); GLOMERULAR FILTRATION RATE > 60.0 (>60); GLUCOSE, FASTING 93 MG/DL (70-100); MAGNESIUM LEVEL 2.2 MG/DL (1.8-2.4); POTASSIUM SERUM 3.6 MEQ/L (3.5-5.1); SODIUM LEVEL 140 MEQ/L (136-145)
[2019-10-21] MEDS: CALCIUM CARBONATE 500 MG CHEW U/D PO SCH ×2 (08:38→12:27)
[2019-10-21] MEDS: GABAPENTIN 300 MG CAP PO SCH (08:38)
[2019-10-21] MEDS: CALCITRIOL 0.25 MCG CAP (S0169) PO SCH (08:39)
[2019-10-21] MEDS: PANTOPRAZOLE 40MG TAB (PROTONIX) PO SCH (08:39)
[2019-10-21] MEDS: DULoxetine 30 MG CAP (CYMBALTA) PO SCH (08:39)
[2019-10-21] MEDS: ASPIRIN 81 MG ENTERIC TAB PO SCH (08:39)
[2019-10-21] MEDS: predniSONE 20 MG TAB PO SCH (08:39)
[2019-10-21] MEDS: BACLOFEN 10 MG TAB PO SCH (08:39)
[2019-10-21] MEDS: guaiFENesin ER 600 MG TAB PO SCH (08:39)
[2019-10-21] MEDS: BACTRIM 160MG/800MG DS TAB PO SCH (08:39)
[2019-10-21] MEDS: hydroCHLOROthiazide 25 MG TAB PO SCH (08:41)
[2019-10-21 08:42] VITALS: BP 150/90
[2019-10-21] MEDS: METOPROLOL SUCC (TopROL XL) 100MG *XL* TAB PO SCH (08:42)
[2019-10-21] MEDS ORDERED: PRED20TA PO (08:50)
[2019-10-21] MEDS ORDERED: MUCI600T31 PO (08:50)
[2019-10-21] MEDS ORDERED: IBUP-1022 PO (08:50)
[2019-10-21] MEDS ORDERED: VITAMIN D 50,000 UNITS CAPSULE (ERGOCALCIFEROL 1.25MG) PO SCH (09:00)
--- NOTE | 2019-10-21 12:18 | DS.PDOC ---
Discharge Summary General Date of Admission October 17, 2019 at 18:07 Date of Discharge 10/21/2019 Discharge Summary PROCEDURES PERFORMED DURING STAY: [None]. ADMITTING DIAGNOSES / DISCHARGE DIAGNOSES: Progressive shortness of breath / acute hypoxic respiratory failure - likely 2/2 bilateral lower lobe atelectasis - possibly 2/2 progression of restrictive lung disease, unlikely 2/2 CAP, unlikely 2/2 PE Lactic acidosis - likely 2/2 work of breathing, less likely 2/2 sepsis Elevated AST / ALT Restrictive lung disease 2/2 below Reported Chronic inflammatory demyelinating polyneuropathy Hx of Metapneumovirus PNA (10/2018, 01/2019) HTN Depression RLS History of kidney Stones GERD DVT prophylaxis COMPLICATIONS/CHIEF COMPLAINT: Shortness of breath HISTORY OF PRESENT ILLNESS: Patient is a 44-year-old male with a PMHx of Chronic inflammatory demyelinating polyneuropathy (Dx 03/2019, Follows with Neurology), Restrictive lung disease (Follows with Dr. Galindo), Hx of Metapneumovirus PNA (10/2018, 01/2019), HTN, Depression, Kidney Stones, who presented to the hospital with complaints of worsening. She is of breath over one month duration. Patient is reported that over the course of the month. Hes been having progressive shortness of breath. She was last seen by his envelope fold operator approximately 2 weeks ago. He notes that at that time, his breathing was doing fine. Patient reports that he chronically takes prednisone 20 mg, and there is not been any recent adjustments to this medication. Patient reported that today upon waking up. He was experiencing worsening wheezing and associated coughing with green/thick sputum. Patient has also reported chest tightness, which she attributes to his difficulty breathing. He does deny any chest pain. He does report some palpitations. HOSPITAL COURSE: Progressive shortness of breath / acute hypoxic respiratory failure - likely 2/2 bilateral lower lobe atelectasis - possibly 2/2 progression of restrictive lung disease, unlikely 2/2 CAP, unlikely 2/2 PE - Clinically has subjective improvement of breathing; physical with improved aeration - Patient will require continuous oxygen as his restrictive lung disease progresses, as a result of his underlying neurologic disorder - Repeat ABGs have not suggested features of ventilatory problems at this time - D-Dimer < 270 - COVID19 / Respiratory panel negative / Blood cultures negative at 24 hours - CXR 10/16: Bibasilar subsegmental atelectasis. Relatively low level of inspiration. Otherwise no acute disease. - CTA chest 10/16: 1. Suboptimal exam for the evaluation of pulmonary embolus as above. Pulmonary embolus can neither be confirmed nor excluded. 2. Bilateral dependent atelectasis, left more than right, with potential component of airspace consolidation posteriorly in the left lower lobe and inferiorly in the lingula. 3. Mild patchy ground-glass opacities throughout the lungs, could reflect microatelectasis, edema or pneumonitis. 4. Fatty liver. - c/w Prednisone - will taper over next 3 days down to home dose of 20mg daily; s/p Solumedrol - c/w Inhaled therapy as needed - c/w Acapella / IS / Guaifenesin - Cased was discussed with outpatient envelope fold operator; hypoxia likely result of bilateral atelectasis, may require ventilatory support (ie. BIPAP) if his condition worsens over time - Will need to continue with additional supplemental oxygen continuously moving forward - Will have outpatient follow up with PCP and Dr. Galindo Lactic acidosis - likely 2/2 work of breathing, less likely 2/2 sepsis - Improved - Patient remains afebrile and hemodynamically stable - s/p IV fluid hydration Elevated AST / ALT - No abdominal pain / Nausea / Vomiting - Imaging noted above with possible fatty liver - Will have outpatient follow up with PCP Restrictive lung disease 2/2 below - Follows with Dr. Galindo; last seen ~2 weeks ago - See above Reported Chronic inflammatory demyelinating polyneuropathy - Dx 03/[address] [facility] - Has started establishing care with Neurology in [place]; workup in process - Discussed with Neurology; patient will need to have nerve conduction study before a formal diagnosis can be given - Patient was recently evaluated by Dr. Zamorano, Oncology for possible POEMS syndrome; and had bone marrow biopsy completed that was reported to be negative - c/w Baclofen and Flexeril - c/w PT / OT; will be transitioned to ARU for continued rehabilitation - Will have outpatient follow up with Dr. Huber Hx of Metapneumovirus PNA (10/2018, 01/2019) HTN - Will c/w HCTZ - c/w Metoprolol with holding parameters Depression - c/w Duloxetine RLS - c/w Ropinirole History of kidney Stones GERD - c/w Protonix DVT prophylaxis - c/w Heparin DISCHARGE MEDICATIONS: Please see below. ALLERGIES: Please see below. PHYSICAL EXAMINATION ON DISCHARGE: Vitals (See below) General: Lying in bed, remains comfortable, AAOx3 HEENT: NC, AT CVS: +S1S2 Lungs: Aeration at bilateral lung solis has improved, no wheezing / rhonchi or crackles can be appreciated today Abdomen: Soft, obese, non-distended and remains non-tender Extremities: no evidence of pitting edema bilaterally, - Calf tenderness LABORATORY DATA: Please see below. ACTIVITY: [As tolerated]. DISCHARGE PLAN: Transfer to ARU Follow up with Dr. Casas at ARU Follow up with PCP, Pulmonology and Neurology as an outpatient Remain compliant with treatment plan and medications Return to the ER if you experience any problems DISPOSITION: Transfer to ARU DISCHARGE CONDITION: [Stable]. TIME SPENT ON DISCHARGE: 35 minutes. Vital Signs/I&Os Vital Signs Date Time Temp Pulse Resp B/P (MAP) Pulse Ox O2 Delivery O2 Flow Rate FiO2 10/21/19 11:20 4.0 10/21/19 08:42 82 150/90 10/21/19 06:00 97.7 18 95 Nasal Cannula I&O- Last 24 Hours up to 6 AM 10/21/19 06:00 Intake Total 2060 ml Output Total 1725 ml Balance 335 ml Laboratory Data Labs 24H Laboratory Tests 2 10/21/19 06:13: Immature Granulocyte % (Auto) 2.5, Neutrophils (%) (Auto) 51.8, Lymphocytes (%) (Auto) 37.0, Monocytes (%) (Auto) 6.8H, Eosinophils (%) (Auto) 1.7, Basophils (%) (Auto) 0.2, Neutrophils # (Auto) 5.4, Lymphocytes # (Auto) 3.8, Monocytes # (Auto) 0.7, Eosinophils # (Auto) 0.2, Basophils # (Auto) 0.0, Nucleated Red Blood Cells % (auto) 0.2H, Anion Gap 6L, Glomerular Filtration Rate > 60.0, Calcium Level 8.0L, Magnesium Level 2.2 CBC/BMP Laboratory Tests 10/21/19 06:13 Microbiology Microbiology 10/17/19 Blood Culture - Preliminary, Resulted No Growth after 72 hours. All specime... 10/17/19 Respiratory Virus Panel (PCR) (PHYLLIS) - Final, Complete 10/17/19 Blood Culture - Preliminary, Resulted No Growth after 72 hours. All specime... Discharge Medications Scheduled Aspirin (Aspirin EC) 81 Mg Tablet.dr, 81 MG PO DAILY, (Reported) Baclofen (Baclofen) 10 Mg Tablet, 10 MG PO TID, (Reported) Calcitriol (Calcitriol) 0.25 Mcg Capsule, 0.25 MCG PO DAILY, (Reported) Calcium Carbonate (Tums) 200 Mg Tab.chew, 1,000 MG PO TID, (Reported) WITH MEALS Cyclobenzaprine HCl (Cyclobenzaprine HCl) 10 Mg Tablet, 10 MG PO QHS, (Reported) Duloxetine Hcl (Duloxetine HCl) 30 Mg Capsule.dr, 60 MG PO DAILY, (Reported) Ergocalciferol (Vitamin D2) (Vitamin D2) 50,000 Units Cap, 50,000 UNITS PO QWEEK, (Reported) MONDAYS Gabapentin (Gabapentin) 300 Mg Capsule, 1,200 MG PO TID, (Reported) Guaifenesin (Mucinex) 600 Mg Tab.er.12h, 1,200 MG PO BID Hydrochlorothiazide (Hydrochlorothiazide) 25 Mg Tablet, 25 MG PO DAILY, (Reported) Metoprolol Succinate (Metoprolol Succinate) 100 Mg Tab.er.24h, 100 MG PO DAILY, (Reported) Pantoprazole Sodium (Pantoprazole Sodium) 40 Mg Tablet.dr, 40 MG PO BID, (Reported) Prednisone (Prednisone) 20 Mg Tablet, 40 MG PO DAILY 2 tab PO Daily x 3 days then return to home dose of 20 mg (1 tab) PO daily Ropinirole HCl (Ropinirole HCl) 1 Mg Tablet, 1 MG PO QHS, (Reported) Sulfamethoxazole/Trimethoprim (Bactrim Ds Tablet) 1 Each Tablet, 1 TAB PO 3XW, (Reported) MON/MON/MON Trazodone HCl (Trazodone HCl) 50 Mg Tablet, 50 MG PO QHS, (Reported) Scheduled PRN Acetaminophen (Acetaminophen) 325 Mg Tablet, 650 MG PO Q6H PRN for PAIN, (Reported) Ibuprofen (Ibuprofen) 600 Mg Tablet, 600 MG PO Q8HP PRN for PAIN Allergies Coded Allergies: TAPE (Verified Allergy, Intermediate, HIVES, 04/03/19) PLASTIC TAPE, PAPER TAPE [place] silver (Verified Allergy, Intermediate, HIVES, 04/03/19) UMAIR HARRISON MD October 21, 2019 12:18
== END 2019-10-21 14:13 | DRG 133 ==
LOC: M ED 14:11 → M ED INP 18:07 → ENRESERV 22:26 → M PCU 23:06 → M MSPAV 10-20 17:20
PROVIDERS: ADMIT Internal Medicine; ATTEND Internal Medicine
DX: J96.01 Acute respiratory failure with hypoxia (principal); E87.2 Acidosis; G61.81 Chronic inflammatory demyelinating polyneuritis; I10 Essential (primary) hypertension; F32.9 Major depressive disorder, single episode, unspecified; J98.11 Atelectasis; R74.0 Nonspecific elevation of levels of transaminase and lactic acid dehydrogenase [LDH]; K21.9 Gastro-esophageal reflux disease without esophagitis; J98.4 Other disorders of lung; Z87.442 Personal history of urinary calculi; Z79.82 Long term (current) use of aspirin; Z79.899 Other long term (current) drug therapy; Z79.52 Long term (current) use of systemic steroids; Z91.048 Other nonmedicinal substance allergy status; Z90.49 Acquired absence of other specified parts of digestive tract; Z11.59 Encounter for screening for other viral diseases

== ENCOUNTER 2019-10-21 13:53 | Inpatient (IN) | payer BC, OTHER ==
[~2019-10-21] VITALS: Ht 172.7 cm; Wt 114.2 kg
[~2019-10-21 13:53] MED LIST changes: +BACL10TA8 PO; +BACT800T5 PO; +DULO1CAP5 PO; +IBUP-1022 PO; +MUCI600T31 PO; +PANT-23 PO; +POTA10TA14 PO; +TRAZ1TAB10 PO; +VITA50005 PO
[2019-10-21 14:30] VITALS: BP 115/69
[2019-10-21] MEDS ORDERED: ONDANSETRON 4 MG ORAL DISINTEGRATING TAB PO PRN (16:30)
[2019-10-21] MEDS ORDERED: traZODone 50 MG TAB PO PRN (16:30)
[2019-10-21] MEDS ORDERED: BISACODYL 10 MG SUPP PR PRN (16:30)
--- NOTE | 2019-10-21 16:34 | HPEPDOC ---
Handling Tech Note DATE OF ADMISSION: 10-21-19 DATE OF SERVICE: 10-22-19 TIME OF ADMISSION: Please refer to physician's admission order. SOURCE OF ADMISSION INFORMATION: [facility] record and patient CHIEF COMPLAINT: CIDP recurrence with restrictive lung disease HISTORY OF PRESENT ILLNESS: 44M pmh CIDP, restrictive lung disease, Human metapneumovirus, HTN, depression, kidney stones presented to [facility] ED on 10-17-19 reporting increased work of breathing and difficulty walking. Revealed, Bibasilar subsegmental atelectasis. Relatively low level of inspiration. Otherwise no acute disease. There was concern for possible PE with CTA showing, Suboptimal exam for the evaluation of pulmonary embolus as above. Pulmonary embolus can neither be confirmed nor excludedBilateral dependent atelectasis, left more than right, with potential component of airspace consolidation posteriorly in the left lower lobe and inferiorly in the lingulaMild patchy ground-glass opacities throughout the lungs, could reflect microatelectasis, edema or pneumonitis. He was started on Solumedrol, breathing treatments, supplemental 02, and his breathing overall improved. He tested negative for Covid-19 and had a negative respiratory panel. His steroids were tapered and he was evaluated by therapy where he was found to have new impairments in mobility and ADLs and deemed medically appropriate for discharge to ARU. REVIEW OF SYSTEMS: The following is a completed review of systems and has been reviewed. Review of systems otherwise unremarkable. PAIN: Patient self reports bilat leg pain (chronic) EYES: [No recent vision changes]. EARS, NOSE, & THROAT: No throat pain, or dysphagia, or rhinorrhea CARDIOVASCULAR: Denies chest pain or palpitations PULMONARY: + shortness of breath on exertion and cough GASTROINTESTINAL: Denies constipation/diarrhea GENITOURINARY: denies dysuria MUSCULOSKELETAL: generalized weakness NEUROLOGICAL: +peripheral polyneuropathy HEMATOLOGICAL: denies easy bruising SKIN: intact no rash PSYCHIATRIC: +depression All other review of systems found to be negative. PAST MEDICAL HISTORY: as per HPI PAST SURGICAL HISTORY: Cholecystectomy, appendectomy, left knee and ankle surgery, hernia repair ALLERGIES: Please see below. MEDICATIONS: Please see below. 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 GENERAL: Pleasant and cooperative. No acute distress. HEENT: PERRL. Extraocular movements intact. Clear conjunctiva CARDIOVASCULAR: Regular rate and rhythm. No murmurs, rubs, or gallops LUNGS: Clear to auscultation bilaterally. No wheezes. No rhonchi, shallow breathing ABDOMEN: Soft, nontender, nondistended. Positive bowel sounds. Normal active nidhi wel sounds NEUROLOGICAL: Alert and oriented times three. Cranial nerves II through XII grossly intact. Sensation grossly intact in all 4limbs (-) babinksi and clonus bilat EXTREMITIES: 5\5 strength bilateral upper extremities. 4\5 strength right lower extremity. 4/5 strength in left lower extremity. SKIN: intact LABORATORY DATA: Please see below. IMAGING:Imaging documentation personally reviewed by record FUNCTIONAL STATUS: Premorbid: Modified Independent with all activities of daily life as well as mobility from wheelchair level and ambulating households distances with cane On Admission: contact guard functional transfers, toileting, dressing, ambulating 15 feet GOALS: Mod-I with cane ambulation household distances, functional transfer, dressing, toileting, bathing, grooming ASSESSMENT:44-year-old M with past medical history of CIDP who presents status post possible recurrence of CIDP with acute respiratory failure PLAN: 1. Rehab-PT/OT advance gait and ADL training, strengthen/stretch/maintain ROM all 4limbs, c/u bilat AFO 2. Neuro: admitted for recurrence of CIDP with respiratory compromise, c/u steroid treatment, f/u neuro outpatient for NCS/EMG -tone c/u baclofen -restless leg c/u requip 3. cardiac: hx oh HTN c/u metoprolol and hydrochlorothiazide, medicine consulted to assist in overall management 4. resp: restrictive lung disease in setting of CIDP, c/u supplemental 02, however will need to f/u pulm for possible NIV -cu oral steroids and prophylactic bactrim dosing -Duonebs, acapella, guaifenesin 5. GI ppx: Protonix bid and tums -bowel meds -Transaminitis in setting of fatty liver- f/u PCP 6. DVT ppx: heparin and teds 7. Pain: patient reporting gabapentin does nothing for his neuropathic leg pain, will taper gabapentin, add Elavil 25mg qHS while cross tapering with cymbalta, gabapentin, c/u tylenol, ibuprofen, flexeril qHS 8. : monitor PVRs 9. Psych: depression c/u Cymbalta (cross tapering with Elavil), insomnia c/u trazodone 10. Dispo: TBD POST ADMISSION PHYSICIAN EVALUATION: Medical and functional status: Description of medical status, medical assessment: As above. Rehabilitation diagnosis and current and prior cold morbid medical conditions as above. Risk of complications and plans to mitigate them as above. Description of functional status current status is as above. Prior status as above. Status compared to preadmission: There are no clinically significant differences between the patient's current status and the information described on the preadmission screening document. Treatment plan anticipated: Treatment plan is as described above. Required disciplines including physical therapy, occupational therapy, others as noted above. Intensity of services: 3 hours a day, 6 days a week. Special considerations: There are no specific special or safety considerations that would likely preclude immediate implementation of an intensive rehabilitation program or subsequently influence the plan of care. ATTESTATION: Considering all the information above, it is my best judgment that this patient requires intensive rehabilitation therapy as described above and an inpatient hospital environment due to the complexity of nursing, medical, and rehabilitation needs required by the patient. Furthermore, this patient can reasonably be expected to participate in an benefit from an inpatient rehabilitation stay with an interdisciplinary team approach to the delivery of rehabilitation care under the direction and supervision of rehabilitation physician. PROGNOSIS: good ESTIMATED LENGTH OF STAY:7-10 days. PROJECTED DISCHARGE DESTINATION: Home with family support and any durable medical equipment required to increase functional safety and mobility. TIME SPENT COUNSELING AND COORDINATING INITIAL CARE: Greater than 70 minutes. Vital Signs Vital Sign - Last 24 Hours 10/21/19 14:30 Temp 98.3 Pulse 97 Resp 20 B/P (MAP) 115/69 (84) Pulse Ox 99 O2 Delivery Nasal Cannula O2 Flow Rate 4.0 Home Medications Scheduled Aspirin (Aspirin EC) 81 Mg Tablet.dr, 81 MG PO DAILY, (Reported) Baclofen (Baclofen) 10 Mg Tablet, 10 MG PO TID, (Reported) Calcitriol (Calcitriol) 0.25 Mcg Capsule, 0.25 MCG PO DAILY, (Reported) Calcium Carbonate (Tums) 200 Mg Tab.chew, 1,000 MG PO TID, (Reported) WITH MEALS Cyclobenzaprine HCl (Cyclobenzaprine HCl) 10 Mg Tablet, 10 MG PO QHS, (Reported) Duloxetine Hcl (Duloxetine HCl) 30 Mg Capsule.dr, 60 MG PO DAILY, (Reported) Ergocalciferol (Vitamin D2) (Vitamin D2) 50,000 Units Cap, 50,000 UNITS PO QWEEK, (Reported) MONDAYS Gabapentin (Gabapentin) 300 Mg Capsule, 1,200 MG PO TID, (Reported) Guaifenesin (Mucinex) 600 Mg Tab.er.12h, 1,200 MG PO BID Hydrochlorothiazide (Hydrochlorothiazide) 25 Mg Tablet, 25 MG PO DAILY, (Reported) Metoprolol Succinate (Metoprolol Succinate) 100 Mg Tab.er.24h, 100 MG PO DAILY, (Reported) Pantoprazole Sodium (Pantoprazole Sodium) 40 Mg Tablet.dr, 40 MG PO BID, (Reported) Prednisone (Prednisone) 20 Mg Tablet, 40 MG PO DAILY 2 tab PO Daily x 3 days then return to home dose of 20 mg (1 tab) PO daily Ropinirole HCl (Ropinirole HCl) 1 Mg Tablet, 1 MG PO QHS, (Reported) Sulfamethoxazole/Trimethoprim (Bactrim Ds Tablet) 1 Each Tablet, 1 TAB PO 3XW, (Reported) MON/MON/MON Trazodone HCl (Trazodone HCl) 50 Mg Tablet, 50 MG PO QHS, (Reported) Scheduled PRN Acetaminophen (Acetaminophen) 325 Mg Tablet, 650 MG PO Q6H PRN for PAIN, (Reported) Ibuprofen (Ibuprofen) 600 Mg Tablet, 600 MG PO Q8HP PRN for PAIN Allergies Coded Allergies: TAPE (Verified Allergy, Intermediate, HIVES, 04/03/19) PLASTIC TAPE, PAPER TAPE [place] silver (Verified Allergy, Intermediate, HIVES, 04/03/19) A-FIB/CHADSVASC A-FIB History Current/History of A-Fib/PAF?: No ARMANDO HARRELL MD October 21, 2019 16:33
[2019-10-21] MEDS: BACLOFEN 10 MG TAB PO SCH ×2 (17:02→20:58)
[2019-10-21] MEDS: GABAPENTIN 400 MG CAP PO SCH ×2 (17:02→20:57)
[2019-10-21] MEDS: CALCIUM CARBONATE 500 MG CHEW U/D PO SCH (17:02)
[2019-10-21] MEDS: HEPARIN SOD (PORCINE) 5000UNITS/ML VIAL (J1644 PER 1000UNITS) SC SCH ×2 (17:03→21:01)
[2019-10-21] MEDS: IPRATROPIUM 0.5MG/ALBUTEROL 2.5MG INH SOL UD 3ML (DUONEB)(J7620) NEB SCH (19:50)
[2019-10-21 20:03] VITALS: BP 135/73
[2019-10-21] MEDS: rOPINIRole 1MG TAB PO SCH (20:57)
[2019-10-21] MEDS: DOCUSATE SODIUM 100 MG CAP PO SCH (20:57)
[2019-10-21] MEDS: guaiFENesin ER 600 MG TAB PO SCH (20:57)
[2019-10-21] MEDS: PANTOPRAZOLE 40MG TAB (PROTONIX) PO SCH (20:58)
[2019-10-21] MEDS: SENNA 8.6 MG TAB (SENOKOT) PO SCH (20:58)
[2019-10-21] MEDS: CYCLOBENZAPRINE 10MG TABLET PO SCH (20:58)
[2019-10-21] MEDS: REMEDY PHYTOPLEX Z-GUARD PASTE 113GM TUBE (FROM STOREROOM PRODUCT) TOP SCH (21:00)
[2019-10-22 05:00] VITALS: BP 131/73
[2019-10-22] MEDS: HEPARIN SOD (PORCINE) 5000UNITS/ML VIAL (J1644 PER 1000UNITS) SC SCH ×3 (05:46→21:01)
[2019-10-22 06:32] LABS: BASO % 0.3 % (0.0-1.0); EOS # 0.2 10^3/uL (0.0-0.5); EOS % 1.8 % (0.0-3.0); HEMATOCRIT 40.1 % (42.0-52.0); HEMOGLOBIN 13.6 g/dl (13.5-17.5); LYMPH # 4.6 10^3/uL (1.5-5.0); MEAN CORPUSCULAR HEMOGLOBIN 28.9 pg (27.0-33.0); MEAN CORPUSCULAR HGB CONC 33.9 g/dl (32.0-36.5); MEAN CORPUSCULAR VOLUME 85.3 fl (80.0-96.0); MONO # 0.7 10^3/uL (0.0-0.8); NEUTROPHILS # 5.9 10^3/uL (1.5-8.5); NEUTROPHILS % 50.8 % (36.0-66.0); PLATELET COUNT, AUTOMATED 314 10^3/uL (150-450); WHITE BLOOD COUNT 11.7 10^3/uL (4.0-10.0)
[2019-10-22 06:57] LABS: ALBUMIN 3.1 GM/DL (3.2-5.2); ALT/SGPT 106 U/L (12-78); BILIRUBIN,TOTAL 0.6 MG/DL (0.2-1.0); BLOOD UREA NITROGEN 19 MG/DL (7-18); CALCIUM LEVEL 8.5 MG/DL (8.5-10.1); CARBON DIOXIDE LEVEL 27 MEQ/L (21-32); CHLORIDE LEVEL 103 MEQ/L (98-107); GLOMERULAR FILTRATION RATE > 60.0 (>60); GLUCOSE, FASTING 114 MG/DL (70-100); POTASSIUM SERUM 3.5 MEQ/L (3.5-5.1); SODIUM LEVEL 138 MEQ/L (136-145); TOTAL PROTEIN 6.2 GM/DL (6.4-8.2)
[2019-10-22] MEDS: IPRATROPIUM 0.5MG/ALBUTEROL 2.5MG INH SOL UD 3ML (DUONEB)(J7620) NEB SCH ×3 (07:18→19:14)
[2019-10-22] MEDS: CALCIUM CARBONATE 500 MG CHEW U/D PO SCH ×3 (08:00→17:09)
[2019-10-22] MEDS ORDERED: DULoxetine 30 MG CAP (CYMBALTA) PO SCH (09:00)
[2019-10-22] MEDS: hydroCHLOROthiazide 25 MG TAB PO SCH (10:23)
[2019-10-22] MEDS: ASPIRIN 81 MG ENTERIC TAB PO SCH (10:24)
[2019-10-22] MEDS: GABAPENTIN 400 MG CAP PO SCH ×3 (10:24→20:59)
[2019-10-22] MEDS: BACLOFEN 10 MG TAB PO SCH ×3 (10:24→20:59)
[2019-10-22] MEDS: CALCITRIOL 0.25 MCG CAP (S0169) PO SCH (10:24)
[2019-10-22] MEDS: METOPROLOL SUCC (TopROL XL) 100MG *XL* TAB PO SCH (10:24)
[2019-10-22] MEDS: PANTOPRAZOLE 40MG TAB (PROTONIX) PO SCH ×2 (10:24→20:58)
[2019-10-22] MEDS: DOCUSATE SODIUM 100 MG CAP PO SCH ×2 (10:25→21:00)
[2019-10-22] MEDS: predniSONE 20 MG TAB PO SCH (10:25)
[2019-10-22] MEDS: guaiFENesin ER 600 MG TAB PO SCH ×2 (10:25→20:59)
[2019-10-22] MEDS: REMEDY PHYTOPLEX Z-GUARD PASTE 113GM TUBE (FROM STOREROOM PRODUCT) TOP SCH ×3 (10:31→21:00)
[2019-10-22 14:00] VITALS: BP 150/85
[2019-10-22] MEDS ORDERED: traZODone 25MG PER 1/2 TABLET PO PRN (14:15)
[2019-10-22] MEDS: FUROSEMIDE 20 MG TAB PO SCH (15:26)
[2019-10-22 20:00] VITALS: BP 125/80
[2019-10-22] MEDS: AMITRIPTYLINE 25 MG TAB PO SCH (20:58)
[2019-10-22] MEDS: CYCLOBENZAPRINE 10MG TABLET PO SCH (20:58)
[2019-10-22] MEDS: rOPINIRole 1MG TAB PO SCH (20:59)
[2019-10-22] MEDS: SENNA 8.6 MG TAB (SENOKOT) PO SCH (20:59)
[2019-10-22] MEDS ORDERED: traZODone 50 MG TAB PO SCH (21:00)
[2019-10-22] MEDS: ACETAMINOPHEN TAB 650MG DOSE (2X325MG) PO PRN (21:09)
[2019-10-23] MEDS: HEPARIN SOD (PORCINE) 5000UNITS/ML VIAL (J1644 PER 1000UNITS) SC SCH ×3 (05:25→21:11)
[2019-10-23 05:33] VITALS: BP 128/67
[2019-10-23 06:46] LABS: BASO # 0.1 10^3/uL (0.0-0.2); BASO % 0.4 % (0.0-1.0); EOS # 0.2 10^3/uL (0.0-0.5); EOS % 1.7 % (0.0-3.0); HEMATOCRIT 44.5 % (42.0-52.0); HEMOGLOBIN 15.1 g/dl (13.5-17.5); LYMPH # 5.3 10^3/uL (1.5-5.0); LYMPH % 37.7 % (24.0-44.0); MEAN CORPUSCULAR HEMOGLOBIN 28.9 pg (27.0-33.0); MEAN CORPUSCULAR HGB CONC 33.9 g/dl (32.0-36.5); MEAN CORPUSCULAR VOLUME 85.2 fl (80.0-96.0); MONO # 0.9 10^3/uL (0.0-0.8); MONO % 6.6 % (0.0-5.0); NEUTROPHILS # 7.1 10^3/uL (1.5-8.5); NEUTROPHILS % 51.2 % (36.0-66.0); PLATELET COUNT, AUTOMATED 356 10^3/uL (150-450); RED BLOOD COUNT 5.22 10^6/uL (4.30-6.10)
[2019-10-23 07:10] LABS: BLOOD UREA NITROGEN 17 MG/DL (7-18); CALCIUM LEVEL 9.1 MG/DL (8.5-10.1); CARBON DIOXIDE LEVEL 30 MEQ/L (21-32); CHLORIDE LEVEL 102 MEQ/L (98-107); CREATININE FOR GFR 0.96 MG/DL (0.70-1.30); GLOMERULAR FILTRATION RATE > 60.0 (>60); GLUCOSE, FASTING 119 MG/DL (70-100); POTASSIUM SERUM 3.4 MEQ/L (3.5-5.1); SODIUM LEVEL 139 MEQ/L (136-145)
[2019-10-23] MEDS: IPRATROPIUM 0.5MG/ALBUTEROL 2.5MG INH SOL UD 3ML (DUONEB)(J7620) NEB SCH ×3 (07:15→19:39)
[2019-10-23] MEDS: REMEDY PHYTOPLEX Z-GUARD PASTE 113GM TUBE (FROM STOREROOM PRODUCT) TOP SCH ×3 (09:00→21:00)
[2019-10-23] MEDS: CALCIUM CARBONATE 500 MG CHEW U/D PO SCH ×3 (09:09→17:24)
[2019-10-23] MEDS: hydroCHLOROthiazide 25 MG TAB PO SCH (09:09)
[2019-10-23] MEDS: BACLOFEN 10 MG TAB PO SCH ×3 (09:09→21:11)
[2019-10-23] MEDS: METOPROLOL SUCC (TopROL XL) 100MG *XL* TAB PO SCH (09:10)
[2019-10-23] MEDS: FUROSEMIDE 20 MG TAB PO SCH (09:10)
[2019-10-23] MEDS: BACTRIM 160MG/800MG DS TAB PO SCH (09:11)
[2019-10-23] MEDS: ASPIRIN 81 MG ENTERIC TAB PO SCH (09:11)
[2019-10-23] MEDS: CALCITRIOL 0.25 MCG CAP (S0169) PO SCH (09:11)
[2019-10-23] MEDS: DULoxetine 30 MG CAP (CYMBALTA) PO SCH (09:11)
[2019-10-23] MEDS: DOCUSATE SODIUM 100 MG CAP PO SCH ×2 (09:11→21:12)
[2019-10-23] MEDS: ACETAMINOPHEN TAB 650MG DOSE (2X325MG) PO PRN ×2 (09:11→21:11)
[2019-10-23] MEDS: GABAPENTIN 400 MG CAP PO SCH ×3 (09:11→21:11)
[2019-10-23] MEDS: predniSONE 20 MG TAB PO SCH (09:11)
[2019-10-23] MEDS: PANTOPRAZOLE 40MG TAB (PROTONIX) PO SCH ×2 (09:11→21:12)
[2019-10-23] MEDS: guaiFENesin ER 600 MG TAB PO SCH ×2 (09:11→21:10)
[2019-10-23] MEDS ORDERED: POTASSIUM CHLORIDE 10 MEQ SR TABLET PO ONE (11:00)
[2019-10-23 14:00] VITALS: BP 135/86
--- NOTE | 2019-10-23 15:07 | IPNPDOC ---
PM&R Progress Note DATE OF SERVICE: October 23, 2019 Manager Surgery Progress Note Subjective: Patient reporting he slept well with the additional dose of trazodone and that the pain in his legs was better with the addition of Elavil. He would like to see if he is eligible to daytime 02. REVIEW OF SYSTEMS: The following is a completed review of systems and has been reviewed. Review of systems otherwise unremarkable. PAIN: Patient self reports bilat leg pain (chronic) EYES: No recent vision changes EARS, NOSE, & THROAT: No throat pain, or dysphagia, or rhinorrhea CARDIOVASCULAR: Denies chest pain or palpitations PULMONARY: + shortness of breath on exertion and cough GASTROINTESTINAL: Denies constipation/diarrhea GENITOURINARY: denies dysuria MUSCULOSKELETAL: generalized weakness NEUROLOGICAL: +peripheral polyneuropathy HEMATOLOGICAL: denies easy bruising SKIN: intact no rash PSYCHIATRIC: +depression All other review of systems found to be negative. PHYSICAL EXAMINATION: VITAL SIGNS: Please see below. GENERAL: Pleasant and cooperative. No acute distress. HEENT: PERRL. Extraocular movements intact. Clear conjunctiva CARDIOVASCULAR: Regular rate and rhythm. No murmurs, rubs, or gallops LUNGS: Clear to auscultation bilaterally. No wheezes. No rhonchi, shallow breathing ABDOMEN: Soft, nontender, nondistended. Positive bowel sounds. Normal active bowel sounds NEUROLOGICAL: Alert and oriented times three. Cranial nerves II through XII grossly intact. Sensation grossly intact in all 4limbs (-) babinksi and clonus bilat EXTREMITIES: 5\5 strength bilateral upper extremities. 4\5 strength right lower extremity. 4/5 strength in left lower extremity. SKIN: intact ASSESSMENT:44-year-old M with past medical history of CIDP who presents status post possible recurrence of CIDP with acute respiratory failure PLAN: 1. Rehab-PT/OT advance gait and ADL training, strengthen/stretch/maintain ROM all 4limbs, c/u bilat AFO 2. Neuro: admitted for recurrence of CIDP with respiratory compromise, c/u steroid treatment, f/u neuro outpatient for NCS/EMG -tone c/u baclofen -restless leg c/u requip 3. cardiac: hx oh HTN c/u metoprolol and hydrochlorothiazide, medicine consulted to assist in overall management, added lasix for leg swelling 4. resp: restrictive lung disease in setting of CIDP, c/u supplemental 02, however will need to f/u pulm for possible NIV -cu oral steroids and prophylactic bactrim dosing -Duonebs, acapella, guaifenesin 5. GI ppx: Protonix bid and tums -bowel meds -Transaminitis in setting of fatty liver- f/u PCP 6. DVT ppx: heparin and teds, will order Dopplers to r/o DVT 7. Pain: patient reporting gabapentin does nothing for his neuropathic leg pain, c/u to taper gabapentin, c/u Elavil 25mg qHS while cross tapering with cymbalta, c/u tylenol, ibuprofen, flexeril qHS 8. : monitor PVRs 9. Psych: depression c/u Cymbalta (cross tapering with Elavil), insomnia c/u trazodone 10. Dispo: 10-26-19 to home, progressing towards goals Allergies Coded Allergies: TAPE (Verified Allergy, Intermediate, HIVES, 04/03/19) PLASTIC TAPE, PAPER TAPE OK silver (Verified Allergy, Intermediate, HIVES, 04/03/19) Vital Signs Vital Signs Date Time Temp Pulse Resp B/P (MAP) Pulse Ox O2 Delivery O2 Flow Rate FiO2 10/23/19 14:00 97.2 94 18 135/86 (102) 94 Nasal Cannula 3.0 Laboratory Data CBC/BMP Laboratory Tests 10/23/19 06:32 Labs 24H Laboratory Tests 2 10/23/19 06:32: Immature Granulocyte % (Auto) 2.4, Neutrophils (%) (Auto) 51.2, Lymphocytes (%) (Auto) 37.7, Monocytes (%) (Auto) 6.6H, Eosinophils (%) (Auto) 1.7, Basophils (%) (Auto) 0.4, Neutrophils # (Auto) 7.1, Lymphocytes # (Auto) 5.3H, Monocytes # (Auto) 0.9H, Eosinophils # (Auto) 0.2, Basophils # (Auto) 0.1, Nucleated Red Blood Cells % (auto) 0.0, Anion Gap 7L, Glomerular Filtration Rate > 60.0, Calcium Level 9.1 Current Medications Current Medications Current Medications Medications (Trade) Dose Ordered Sig/Karena Route PRN Reason Start Time Stop Time Status Last Admin Dose Admin Acetaminophen (Tylenol Tab) 650 mg Q4HP PRN PO fever/MILD PAIN (PS 1-4) 10/21/19 16:30 10/23/19 09:11 Albuterol/ Ipratropium (Duoneb (Ipr 0.5mg/Alb 2.5mg)) 3 ml RTID NEB 10/21/19 20:00 10/23/19 13:34 Amitriptyline HCl (Elavil) 25 mg QHS PO 10/22/19 21:00 10/22/19 20:58 Aspirin (Ecotrin) 81 mg DAILY PO 10/22/19 09:00 10/23/19 09:11 Baclofen (Lioresal) 10 mg TID PO 10/21/19 16:00 10/23/19 09:09 Bisacodyl (Dulcolax Suppository) 10 mg DAILYPRN PRN OK CONSTIPATION 10/21/19 16:30 Calcitriol (Rocaltrol) 0.25 mcg DAILY PO 10/22/19 09:00 10/23/19 09:11 Calcium Carbonate (Tums) 1,000 mg WM PO 10/21/19 18:00 10/23/19 12:27 Cyclobenzaprine HCl (Flexeril) 10 mg QHS PO 10/21/19 21:00 10/22/19 20:58 Docusate Sodium (Colace) 100 mg BID PO 10/21/19 21:00 10/23/19 09:11 Duloxetine HCl (Cymbalta) 30 mg DAILY PO 10/23/19 09:00 10/23/19 09:11 Duloxetine HCl (Cymbalta) 60 mg DAILY PO 10/22/19 09:00 10/22/19 14:13 DC 10/22/19 10:24 Furosemide (Lasix) 20 mg DAILY PO 10/22/19 09:00 10/23/19 09:10 Gabapentin (Neurontin) 800 mg TID PO 10/22/19 16:00 10/23/19 09:11 Gabapentin (Neurontin) 1,200 mg TID PO 10/21/19 16:00 10/22/19 14:13 DC 10/22/19 10:24 Guaifenesin (Mucinex Tab Er) 1,200 mg BID PO 10/21/19 21:00 10/23/19 09:11 Heparin Sodium (Porcine) (Heparin) 5,000 units Q8H SC 10/21/19 14:00 10/23/19 05:25 Home Med (Med Rec Complete!) ASDIRECTED XX 10/21/19 17:30 10/21/19 17:35 DC Hydrochlorothiazide (Hydrodiuril) 25 mg DAILY PO 10/22/19 09:00 10/23/19 09:09 Ibuprofen (Advil) 600 mg Q8HP PRN PO PAIN 10/21/19 16:30 Metoprolol Succinate (TopROL XL) 100 mg DAILY PO 10/22/19 09:00 10/23/19 09:10 Ondansetron HCl (Zofran Odt) 4 mg Q4HP PRN PO NAUSEA OR VOMITING 10/21/19 16:30 Pantoprazole Sodium (Protonix) 40 mg BID PO 10/21/19 21:00 10/23/19 09:11 Prednisone (Deltasone) 20 mg DAILY PO 10/25/19 09:00 Prednisone (Deltasone) 40 mg DAILY PO 10/22/19 09:00 10/24/19 21:00 10/23/19 09:11 Ropinirole HCl (Requip) 1 mg QHS PO 10/21/19 21:00 10/22/19 20:59 Senna (Senokot) 1 tab QHS PO 10/21/19 21:00 10/22/19 20:59 Trazodone HCl (Desyrel) 25 mg QHS PRN PO INSOMNIA 10/22/19 14:15 10/22/19 23:10 Trazodone HCl (Desyrel) 50 mg QHS PO 10/22/19 21:00 10/22/19 20:58 Trazodone HCl (Desyrel) 50 mg QHSP PRN PO INSOMNIA 10/21/19 16:30 10/22/19 14:13 DC Trimethoprim/ Sulfamethoxazole (Bactrim Ds, Septra Ds 160mg/ 800mg) 1 tab MoWeFr@09 PO 10/23/19 09:00 10/23/19 09:11 Vitamin D (Drisdol) 50,000 units Mo@09 PO 10/28/19 09:00 ARMANDO HARRELL MD October 23, 2019 15:07
--- NOTE | 2019-10-23 16:47 | REP ---
Bilateral lower extremity Duplex Doppler venous ultrasound: Real time compression and duplex Doppler interrogation of the bilateral lower extremity deep venous system is performed. Bilaterally, the common femoral, superficial femoral and popliteal veins are fully compressible with transducer pressure and demonstrate normal spontaneous and phasic flow, without evidence of deep venous thrombosis. Impression: No evidence of deep venous thrombosis of the bilateral lower extremity femoral popliteal venous system. Electronically Signed by Wagner Fitzpatrick MD 10/23/2019 04:39 P
--- NOTE | 2019-10-23 17:16 | IPNPDOC ---
Date Seen The patient was seen on 10/22/19. Progress Note SUBJECTIVE: 44-year-old male with past medical history of CIDP, chronic respiratory failure on home oxygen and hypertension is admitted to acute rehabilitation unit. Patient was admitted to [facility] for chronic hypoxemic respiratory failure secondary to restrictive lung disease, caused by CIDP. Patient was treated with high-dose steroids and supportive care with good clinical improvement, close to baseline. There was initially thought of pneumonia, but clinically suspicion was low and antibodies were discontinued. Patient is seen in the morning, comfortable in chair, without any complaint at this time. He has been working with physical therapy, reports chronic dyspnea, unchanged, chronic weakness mostly in lower extremities and hands, unchanged. He denies any chest pain, nausea, vomiting, diarrhea or constipation. 10 point review of system is negative except for above PHYSICAL EXAMINATION: VITAL SIGNS: Please see below. GENERAL: No distress HEENT: Normocephalic, atraumatic, moist mucous membranes NECK: Supple CARDIOVASCULAR EXAMINATION: S1, S2, no murmurs RESPIRATORY EXAMINATION: Scattered rhonchi, diminished in the bases, no wheezing ABDOMINAL EXAMINATION: Soft, nontender, nondistended, positive bowel sounds EXTREMITIES: Lower showed edema noted SKIN: No rash NEUROLOGICAL EXAMINATION: Alert and oriented 3, slight weakness in both hands and bilateral lower extremities, baseline, decreased sensation below the knee bilaterally PSYCHIATRIC EXAMINATION: Calm and cooperative LABORATORY DATA, IMAGING STUDIES, MICROBIOLOGY: Please see below. ASSESSMENT AND PLAN: 44-year-old male with multiple medical comorbidities, was admitted to [facility] for chronic hypoxemic respiratory failure likely secondary to atelectasis and restrictive lung disease is now admitted to acute rehabilitation unit. PROBLEMS: 1. Physical deconditioning: Management as per primary team. 2. CIDP: Outpatient follow with Dr. Huber. 3. Restrictive lung disease/chronic respiratory failure: Thought to be from CIDP, outpatient follow-up with Dr. Galindo, continue supplemental oxygen as needed to maintain O2 sats between 88-92%, continue prednisone 40 mg daily, titrated down to 20 mg daily in 3 days (patient's outpatient dose), supportive care. 4. Hypertension: Continue metoprolol DVT prophylaxis: Heparin subcutaneous GI prophylaxis: PPI VS, I&O, 24H, Fishbone Vital Signs/I&O Vital Signs Date Time Temp Pulse Resp B/P (MAP) Pulse Ox O2 Delivery O2 Flow Rate FiO2 5/13/20 14:00 97.2 94 18 135/86 (102) 94 Nasal Cannula 3.0 I&O- Last 24 Hours up to 6 AM 10/23/19 06:00 Intake Total 1320 ml Output Total 2050 ml Balance -730 ml Laboratory Data 24H LABS Laboratory Tests 2 10/23/19 06:32: Immature Granulocyte % (Auto) 2.4, Neutrophils (%) (Auto) 51.2, Lymphocytes (%) (Auto) 37.7, Monocytes (%) (Auto) 6.6H, Eosinophils (%) (Auto) 1.7, Basophils (%) (Auto) 0.4, Neutrophils # (Auto) 7.1, Lymphocytes # (Auto) 5.3H, Monocytes # (Auto) 0.9H, Eosinophils # (Auto) 0.2, Basophils # (Auto) 0.1, Nucleated Red Blood Cells % (auto) 0.0, Anion Gap 7L, Glomerular Filtration Rate > 60.0, Calcium Level 9.1 CBC/BMP Laboratory Tests 10/23/19 06:32 HERI FUENTES MD October 23, 2019 17:16
[2019-10-23] MEDS: rOPINIRole 1MG TAB PO SCH (21:10)
[2019-10-23] MEDS: SENNA 8.6 MG TAB (SENOKOT) PO SCH (21:10)
[2019-10-23] MEDS: AMITRIPTYLINE 25 MG TAB PO SCH (21:11)
[2019-10-23] MEDS: CYCLOBENZAPRINE 10MG TABLET PO SCH (21:11)
[2019-10-23] MEDS: traZODone 25MG PER 1/2 TABLET PO SCH (21:13)
[2019-10-24 06:05] VITALS: BP 134/79
[2019-10-24] MEDS: HEPARIN SOD (PORCINE) 5000UNITS/ML VIAL (J1644 PER 1000UNITS) SC SCH ×3 (06:07→21:24)
[2019-10-24] MEDS: IPRATROPIUM 0.5MG/ALBUTEROL 2.5MG INH SOL UD 3ML (DUONEB)(J7620) NEB SCH ×3 (07:31→19:45)
[2019-10-24 08:08] LABS: BLOOD UREA NITROGEN 17 MG/DL (7-18); CALCIUM LEVEL 8.6 MG/DL (8.5-10.1); CARBON DIOXIDE LEVEL 26 MEQ/L (21-32); CHLORIDE LEVEL 101 MEQ/L (98-107); CREATININE FOR GFR 1.09 MG/DL (0.70-1.30); GLOMERULAR FILTRATION RATE > 60.0 (>60); GLUCOSE, FASTING 153 MG/DL (70-100); POTASSIUM SERUM 3.5 MEQ/L (3.5-5.1); SODIUM LEVEL 138 MEQ/L (136-145)
[2019-10-24] MEDS: FUROSEMIDE 20 MG TAB PO SCH (08:57)
[2019-10-24] MEDS: ASPIRIN 81 MG ENTERIC TAB PO SCH (08:57)
[2019-10-24] MEDS: BACLOFEN 10 MG TAB PO SCH ×3 (08:58→21:23)
[2019-10-24] MEDS: GABAPENTIN 400 MG CAP PO SCH ×3 (08:58→21:24)
[2019-10-24] MEDS: METOPROLOL SUCC (TopROL XL) 100MG *XL* TAB PO SCH (08:59)
[2019-10-24] MEDS: CALCIUM CARBONATE 500 MG CHEW U/D PO SCH ×3 (08:59→16:33)
[2019-10-24] MEDS: CALCITRIOL 0.25 MCG CAP (S0169) PO SCH (08:59)
[2019-10-24] MEDS: predniSONE 20 MG TAB PO SCH (08:59)
[2019-10-24] MEDS: PANTOPRAZOLE 40MG TAB (PROTONIX) PO SCH ×2 (09:00→21:24)
[2019-10-24] MEDS: hydroCHLOROthiazide 25 MG TAB PO SCH (09:00)
[2019-10-24] MEDS: DULoxetine 30 MG CAP (CYMBALTA) PO SCH (09:00)
[2019-10-24] MEDS: guaiFENesin ER 600 MG TAB PO SCH ×2 (09:00→21:23)
[2019-10-24] MEDS: POTASSIUM CHLORIDE 10 MEQ SR TABLET PO SCH (09:00)
[2019-10-24] MEDS: REMEDY PHYTOPLEX Z-GUARD PASTE 113GM TUBE (FROM STOREROOM PRODUCT) TOP SCH ×3 (09:00→21:00)
[2019-10-24] MEDS: DOCUSATE SODIUM 100 MG CAP PO SCH ×2 (09:00→21:23)
[2019-10-24] MEDS: ACETAMINOPHEN TAB 650MG DOSE (2X325MG) PO PRN (13:18)
[2019-10-24 14:00] VITALS: BP 142/81
[2019-10-24] MEDS: IBUPROFEN 600 MG TAB PO PRN (14:25)
[2019-10-24 20:00] VITALS: BP 135/82
[2019-10-24] MEDS: CYCLOBENZAPRINE 10MG TABLET PO SCH (21:23)
[2019-10-24] MEDS: rOPINIRole 1MG TAB PO SCH (21:23)
[2019-10-24] MEDS: SENNA 8.6 MG TAB (SENOKOT) PO SCH (21:23)
[2019-10-24] MEDS: traZODone 25MG PER 1/2 TABLET PO SCH (21:23)
[2019-10-24] MEDS: AMITRIPTYLINE 25 MG TAB PO SCH (21:24)
[2019-10-25] MEDS: IBUPROFEN 600 MG TAB PO PRN ×2 (01:15→21:17)
[2019-10-25 06:00] VITALS: BP 134/93
[2019-10-25] MEDS: HEPARIN SOD (PORCINE) 5000UNITS/ML VIAL (J1644 PER 1000UNITS) SC SCH ×3 (06:14→21:15)
[2019-10-25 07:05] LABS: BLOOD UREA NITROGEN 18 MG/DL (7-18); CALCIUM LEVEL 9.2 MG/DL (8.5-10.1); CARBON DIOXIDE LEVEL 29 MEQ/L (21-32); CHLORIDE LEVEL 102 MEQ/L (98-107); CREATININE FOR GFR 1.05 MG/DL (0.70-1.30); GLOMERULAR FILTRATION RATE > 60.0 (>60); GLUCOSE, FASTING 118 MG/DL (70-100); POTASSIUM SERUM 3.9 MEQ/L (3.5-5.1); SODIUM LEVEL 140 MEQ/L (136-145)
[2019-10-25 07:11] LABS: BASO % 0.3 % (0.0-1.0); EOS # 0.3 10^3/uL (0.0-0.5); EOS % 1.6 % (0.0-3.0); HEMATOCRIT 43.6 % (42.0-52.0); HEMOGLOBIN 14.3 g/dl (13.5-17.5); LYMPH % 31.5 % (24.0-44.0); MEAN CORPUSCULAR HEMOGLOBIN 28.7 pg (27.0-33.0); MEAN CORPUSCULAR HGB CONC 32.8 g/dl (32.0-36.5); MEAN CORPUSCULAR VOLUME 87.6 fl (80.0-96.0); MONO # 1.1 10^3/uL (0.0-0.8); NEUTROPHILS # 9.2 10^3/uL (1.5-8.5); NEUTROPHILS % 57.8 % (36.0-66.0); PLATELET COUNT, AUTOMATED 357 10^3/uL (150-450); RED BLOOD COUNT 4.98 10^6/uL (4.30-6.10)
[2019-10-25] MEDS: IPRATROPIUM 0.5MG/ALBUTEROL 2.5MG INH SOL UD 3ML (DUONEB)(J7620) NEB SCH ×3 (07:12→19:56)
[2019-10-25 07:15] LABS: WHITE BLOOD COUNT 15.8 10^3/uL (4.0-10.0)
[2019-10-25] MEDS: REMEDY PHYTOPLEX Z-GUARD PASTE 113GM TUBE (FROM STOREROOM PRODUCT) TOP SCH ×3 (09:00→21:00)
[2019-10-25] MEDS: CALCIUM CARBONATE 500 MG CHEW U/D PO SCH ×3 (10:25→17:02)
[2019-10-25] MEDS: PANTOPRAZOLE 40MG TAB (PROTONIX) PO SCH ×2 (10:25→21:18)
[2019-10-25] MEDS: BACLOFEN 10 MG TAB PO SCH ×3 (10:25→21:16)
[2019-10-25] MEDS: hydroCHLOROthiazide 25 MG TAB PO SCH (10:25)
[2019-10-25] MEDS: BACTRIM 160MG/800MG DS TAB PO SCH (10:25)
[2019-10-25] MEDS: GABAPENTIN 400 MG CAP PO SCH ×3 (10:25→21:18)
[2019-10-25] MEDS: POTASSIUM CHLORIDE 10 MEQ SR TABLET PO SCH (10:26)
[2019-10-25] MEDS: ASPIRIN 81 MG ENTERIC TAB PO SCH (10:26)
[2019-10-25] MEDS: FUROSEMIDE 20 MG TAB PO SCH (10:26)
[2019-10-25] MEDS: guaiFENesin ER 600 MG TAB PO SCH ×2 (10:26→21:16)
[2019-10-25] MEDS: CALCITRIOL 0.25 MCG CAP (S0169) PO SCH (10:26)
[2019-10-25] MEDS: DOCUSATE SODIUM 100 MG CAP PO SCH ×2 (10:26→21:18)
[2019-10-25] MEDS: predniSONE 20 MG TAB PO SCH (10:27)
[2019-10-25] MEDS: METOPROLOL SUCC (TopROL XL) 100MG *XL* TAB PO SCH (10:27)
[2019-10-25] MEDS: AMITRIPTYLINE 25 MG TAB PO SCH ×2 (10:27→21:18)
[2019-10-25] MEDS ORDERED: LIDOCAINE 5% (LIDODERM) PATCH As Ordered ONE (11:07)
[2019-10-25] MEDS ORDERED: CYCL-707 PO (12:01)
[2019-10-25] MEDS ORDERED: HYDR25TAB PO (12:01)
[2019-10-25] MEDS ORDERED: SULF1TAB93 PO (12:01)
[2019-10-25] MEDS ORDERED: BACL10TA2 PO (12:01)
[2019-10-25] MEDS ORDERED: TRAZ-252 PO (12:01)
[2019-10-25] MEDS ORDERED: CALC1CAP31 PO (12:01)
[2019-10-25] MEDS ORDERED: KLOR10TA76 PO (12:01)
[2019-10-25] MEDS ORDERED: METO1TAB33 PO (12:01)
[2019-10-25] MEDS ORDERED: MUCI600T31 PO (12:01)
[2019-10-25] MEDS ORDERED: FURO20TA2 PO (12:01)
[2019-10-25] MEDS ORDERED: AMIT25TA PO (12:01)
[2019-10-25] MEDS ORDERED: ASPI81TAEC PO (12:01)
[2019-10-25] MEDS ORDERED: ROPI1TAB3 PO (12:01)
[2019-10-25] MEDS ORDERED: PRED20TA PO (12:01)
[2019-10-25] MEDS ORDERED: GABA-843 PO (12:01)
[2019-10-25] MEDS ORDERED: PANT40TA3 PO (12:01)
[2019-10-25 14:00] VITALS: BP 138/80
--- NOTE | 2019-10-25 16:34 | IPNPDOC ---
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 REVIEW OF SYSTEMS: The following is a completed review of systems and has been reviewed. Review of systems otherwise unremarkable. PAIN: Patient self reports bilat leg pain (chronic) EYES: No recent vision changes EARS, NOSE, & THROAT: No throat pain, or dysphagia, or rhinorrhea CARDIOVASCULAR: Denies chest pain or palpitations PULMONARY: + shortness of breath on exertion and cough GASTROINTESTINAL: Denies constipation/diarrhea GENITOURINARY: denies dysuria MUSCULOSKELETAL: generalized weakness NEUROLOGICAL: +peripheral polyneuropathy HEMATOLOGICAL: denies easy bruising SKIN: intact no rash PSYCHIATRIC: +depression All other review of systems found to be negative. PHYSICAL EXAMINATION: VITAL SIGNS: Please see below. GENERAL: Pleasant and cooperative. No acute distress. HEENT: PERRL. Extraocular movements intact. Clear conjunctiva CARDIOVASCULAR: Regular rate and rhythm. No murmurs, rubs, or gallops LUNGS: Clear to auscultation bilaterally. No wheezes. No rhonchi, shallow breathing ABDOMEN: Soft, nontender, nondistended. Positive bowel sounds. Normal active bowel sounds NEUROLOGICAL: Alert and oriented times three. Cranial nerves II through XII grossly intact. Sensation grossly intact in all 4limbs (-) babinksi and clonus bilat EXTREMITIES: 5\5 strength bilateral upper extremities. 4\5 strength right lower extremity. 4/5 strength in left lower extremity. SKIN: intact ASSESSMENT:44-year-old M with past medical history of CIDP who presents status post possible recurrence of CIDP with acute respiratory failure PLAN: 1. Rehab-PT/OT advance gait and ADL training, strengthen/stretch/maintain ROM all 4limbs, c/u bilat AFO 2. Neuro: admitted for recurrence of CIDP with respiratory compromise, c/u steroid treatment, f/u neuro outpatient for NCS/EMG -tone c/u baclofen -restless leg c/u requip 3. cardiac: hx oh HTN c/u metoprolol and hydrochlorothiazide, medicine consulted to assist in overall management, c/u lasix for leg swelling -hypokalemia resolved s/p repletions, c/u home dose of 20meq daily (per patient) 4. resp: restrictive lung disease in setting of CIDP, c/u supplemental 02, however will need to f/u pulm for possible NIV -cu oral steroids and prophylactic bactrim dosing -Duonebs, acapella, guaifenesin 5. GI ppx: Protonix bid and tums -bowel meds -Transaminitis in setting of fatty liver- f/u PCP 6. DVT ppx: heparin and teds, will order Dopplers to r/o DVT 7. Pain: patient reporting gabapentin does nothing for his neuropathic leg pain, c/u to taper gabapentin, will start Elavil BID and stop Cymbalta, c/u tylenol, ibuprofen, flexeril qHS 8. : monitor PVRs 9. Psych: depression cross-tapering from cymbalta to Elavil, insomnia c/u trazodone 10. Dispo: 10-26-19 to home, progressing towards goals Allergies Coded Allergies: TAPE (Verified Allergy, Intermediate, HIVES, 04/03/19) PLASTIC TAPE, PAPER TAPE [place] silver (Verified Allergy, Intermediate, HIVES, 04/03/19) Vital Signs Vital Signs Date Time Temp Pulse Resp B/P (MAP) Pulse Ox O2 Delivery O2 Flow Rate FiO2 10/25/19 16:06 18 10/25/19 14:00 98.0 117 138/80 (99) 91 Room Air 10/25/19 08:44 2.0 Laboratory Data CBC/BMP Laboratory Tests 10/25/19 06:25 Labs 24H Laboratory Tests 2 10/25/19 06:25: Immature Granulocyte % (Auto) 1.8, Neutrophils (%) (Auto) 57.8, Lymphocytes (%) (Auto) 31.5, Monocytes (%) (Auto) 7.0H, Eosinophils (%) (Auto) 1.6, Basophils (%) (Auto) 0.3, Neutrophils # (Auto) 9.2H, Lymphocytes # (Auto) 5.0, Monocytes # (Auto) 1.1H, Eosinophils # (Auto) 0.3, Basophils # (Auto) 0.0, Nucleated Red Blood Cells % (auto) 0.0, Anion Gap 9, Glomerular Filtration Rate > 60.0, Calcium Level 9.2 Current Medications Current Medications Current Medications Medications (Trade) Dose Ordered Sig/Karena Route PRN Reason Start Time Stop Time Status Last Admin Dose Admin Acetaminophen (Tylenol Tab) 650 mg Q4HP PRN PO fever/MILD PAIN (PS 1-4) 10/21/19 16:30 10/24/19 13:18 Albuterol/ Ipratropium (Duoneb (Ipr 0.5mg/Alb 2.5mg)) 3 ml RTID NEB 10/21/19 20:00 10/25/19 13:02 Amitriptyline HCl (Elavil) 25 mg BID PO 10/25/19 09:00 10/25/19 10:27 Amitriptyline HCl (Elavil) 25 mg QHS PO 10/22/19 21:00 10/24/19 21:32 DC 10/24/19 21:24 Aspirin (Ecotrin) 81 mg DAILY PO 10/22/19 09:00 10/25/19 10:26 Baclofen (Lioresal) 10 mg TID PO 10/21/19 16:00 10/25/19 10:25 Bisacodyl (Dulcolax Suppository) 10 mg DAILYPRN PRN [place] CONSTIPATION 10/21/19 16:30 Calcitriol (Rocaltrol) 0.25 mcg DAILY PO 10/22/19 09:00 10/25/19 10:26 Calcium Carbonate (Tums) 1,000 mg WM PO 10/21/19 18:00 10/25/19 12:01 Cyclobenzaprine HCl (Flexeril) 10 mg QHS PO 10/21/19 21:00 10/24/19 21:23 Docusate Sodium (Colace) 100 mg BID PO 10/21/19 21:00 10/25/19 10:26 Duloxetine HCl (Cymbalta) 30 mg DAILY PO 10/23/19 09:00 10/24/19 21:31 DC 10/24/19 09:00 Duloxetine HCl (Cymbalta) 60 mg DAILY PO 10/22/19 09:00 10/22/19 14:13 DC 10/22/19 10:24 Furosemide (Lasix) 20 mg DAILY PO 10/22/19 09:00 10/25/19 10:26 Gabapentin (Neurontin) 600 mg TID PO 10/26/19 08:00 Gabapentin (Neurontin) 800 mg TID PO 10/22/19 16:00 10/25/19 22:00 10/25/19 10:25 Gabapentin (Neurontin) 1,200 mg TID PO 10/21/19 16:00 10/22/19 14:13 DC 10/22/19 10:24 Guaifenesin (Mucinex Tab Er) 1,200 mg BID PO 10/21/19 21:00 10/25/19 10:26 Heparin Sodium (Porcine) (Heparin) 5,000 units Q8H SC 10/21/19 14:00 10/25/19 06:14 Home Med (Med Rec Complete!) ASDIRECTED XX 10/21/19 17:30 10/21/19 17:35 DC Hydrochlorothiazide (Hydrodiuril) 25 mg DAILY PO 10/22/19 09:00 10/25/19 10:25 Ibuprofen (Advil) 600 mg Q8HP PRN PO PAIN 10/21/19 16:30 10/25/19 01:15 Metoprolol Succinate (TopROL XL) 100 mg DAILY PO 10/22/19 09:00 10/25/19 10:27 Ondansetron HCl (Zofran Odt) 4 mg Q4HP PRN PO NAUSEA OR VOMITING 10/21/19 16:30 Pantoprazole Sodium (Protonix) 40 mg BID PO 10/21/19 21:00 10/25/19 10:25 Potassium Chloride (Micro-K Extencaps) 20 meq DAILY PO 10/24/19 09:00 10/25/19 10:26 Prednisone (Deltasone) 20 mg DAILY PO 10/25/19 09:00 10/25/19 10:27 Prednisone (Deltasone) 40 mg DAILY PO 10/22/19 09:00 10/24/19 21:00 DC 10/24/19 08:59 Ropinirole HCl (Requip) 1 mg QHS PO 10/21/19 21:00 10/24/19 21:23 Senna (Senokot) 1 tab QHS PO 10/21/19 21:00 10/24/19 21:23 Trazodone HCl (Desyrel) 25 mg QHS PRN PO INSOMNIA 10/22/19 14:15 10/23/19 14:51 DC 10/22/19 23:10 Trazodone HCl (Desyrel) 50 mg QHS PO 10/22/19 21:00 10/23/19 14:51 DC 10/22/19 20:58 Trazodone HCl (Desyrel) 50 mg QHSP PRN PO INSOMNIA 10/21/19 16:30 10/22/19 14:13 DC Trazodone HCl (Desyrel) 75 mg QHS PO 10/23/19 21:00 10/24/19 21:23 Trimethoprim/ Sulfamethoxazole (Bactrim Ds, Septra Ds 160mg/ 800mg) 1 tab MoWeFr@09 PO 10/23/19 09:00 10/25/19 10:25 Vitamin D (Drisdol) 50,000 units Mo@ PO 10/28/19 09:00 ARMANDO HARRELL MD October 25, 2019 16:34
--- NOTE | 2019-10-25 16:34 | IPNPDOC ---
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 REVIEW OF SYSTEMS: The following is a completed review of systems and has been reviewed. Review of systems otherwise unremarkable. PAIN: Patient self reports bilat leg pain (chronic) EYES: No recent vision changes EARS, NOSE, & THROAT: No throat pain, or dysphagia, or rhinorrhea CARDIOVASCULAR: Denies chest pain or palpitations PULMONARY: + shortness of breath on exertion and cough GASTROINTESTINAL: Denies constipation/diarrhea GENITOURINARY: denies dysuria MUSCULOSKELETAL: generalized weakness NEUROLOGICAL: +peripheral polyneuropathy HEMATOLOGICAL: denies easy bruising SKIN: intact no rash PSYCHIATRIC: +depression All other review of systems found to be negative. PHYSICAL EXAMINATION: VITAL SIGNS: Please see below. GENERAL: Pleasant and cooperative. No acute distress. HEENT: PERRL. Extraocular movements intact. Clear conjunctiva CARDIOVASCULAR: Regular rate and rhythm. No murmurs, rubs, or gallops LUNGS: Clear to auscultation bilaterally. No wheezes. No rhonchi, shallow breathing ABDOMEN: Soft, nontender, nondistended. Positive bowel sounds. Normal active bowel sounds NEUROLOGICAL: Alert and oriented times three. Cranial nerves II through XII grossly intact. Sensation grossly intact in all 4limbs (-) babinksi and clonus bilat EXTREMITIES: 5\5 strength bilateral upper extremities. 4\5 strength right lower extremity. 4/5 strength in left lower extremity. SKIN: intact ASSESSMENT:44-year-old M with past medical history of CIDP who presents status post possible recurrence of CIDP with acute respiratory failure PLAN: 1. Rehab-PT/OT advance gait and ADL training, strengthen/stretch/maintain ROM all 4limbs, c/u bilat AFO 2. Neuro: admitted for recurrence of CIDP with respiratory compromise, c/u steroid treatment, f/u neuro outpatient for NCS/EMG -tone c/u baclofen -restless leg c/u requip 3. cardiac: hx oh HTN c/u metoprolol and hydrochlorothiazide, medicine consulted to assist in overall management, c/u lasix for leg swelling -hypokalemia resolved s/p repletions, c/u home dose of 20meq daily (per patient) 4. resp: restrictive lung disease in setting of CIDP, c/u supplemental 02, patient requiring this during daytime with saturations dropping as low as 86% with exertion on room air, however will need to f/u pulm for possible NIV -cu oral steroids and prophylactic bactrim dosing -Duonebs, acapella, guaifenesin 5. GI ppx: Protonix bid and tums -bowel meds -Transaminitis in setting of fatty liver- f/u PCP 6. DVT ppx: heparin and teds, will order Dopplers to r/o DVT 7. Pain: patient reporting gabapentin does nothing for his neuropathic leg pain, c/u to taper gabapentin (dosing instructions provided to patient, he is encouraged to return to a higher dose with instruction from his PMD/pain doc if he feels his pain worsens), c/u Elavil 25mg BID, c/u tylenol, ibuprofen, flexeril qHS 8. : monitor PVRs 9. Psych: depression cross-tapered from cymbalta to Elavil, insomnia c/u trazodone 10. Dispo: 10-26-19 to home, progressing towards goals Allergies Coded Allergies: TAPE (Verified Allergy, Intermediate, HIVES, 04/03/19) PLASTIC TAPE, PAPER TAPE [place] silver (Verified Allergy, Intermediate, HIVES, 04/03/19) Vital Signs Vital Signs Date Time Temp Pulse Resp B/P (MAP) Pulse Ox O2 Delivery O2 Flow Rate FiO2 10/25/19 16:06 18 10/25/19 14:00 98.0 117 138/80 (99) 91 Room Air 10/25/19 08:44 2.0 Laboratory Data CBC/BMP Laboratory Tests 10/25/19 06:25 Labs 24H Laboratory Tests 2 10/25/19 06:25: Immature Granulocyte % (Auto) 1.8, Neutrophils (%) (Auto) 57.8, Lymphocytes (%) (Auto) 31.5, Monocytes (%) (Auto) 7.0H, Eosinophils (%) (Auto) 1.6, Basophils (%) (Auto) 0.3, Neutrophils # (Auto) 9.2H, Lymphocytes # (Auto) 5.0, Monocytes # (Auto) 1.1H, Eosinophils # (Auto) 0.3, Basophils # (Auto) 0.0, Nucleated Red Blood Cells % (auto) 0.0, Anion Gap 9, Glomerular Filtration Rate > 60.0, Calcium Level 9.2 Current Medications Current Medications Current Medications Medications (Trade) Dose Ordered Sig/Karena Route PRN Reason Start Time Stop Time Status Last Admin Dose Admin Acetaminophen (Tylenol Tab) 650 mg Q4HP PRN PO fever/MILD PAIN (PS 1-4) 10/21/19 16:30 10/24/19 13:18 Albuterol/ Ipratropium (Duoneb (Ipr 0.5mg/Alb 2.5mg)) 3 ml RTID NEB 10/21/19 20:00 10/25/19 13:02 Amitriptyline HCl (Elavil) 25 mg BID PO 10/25/19 09:00 10/25/19 10:27 Amitriptyline HCl (Elavil) 25 mg QHS PO 10/22/19 21:00 10/24/19 21:32 DC 10/24/19 21:24 Aspirin (Ecotrin) 81 mg DAILY PO 10/22/19 09:00 10/25/19 10:26 Baclofen (Lioresal) 10 mg TID PO 10/21/19 16:00 10/25/19 10:25 Bisacodyl (Dulcolax Suppository) 10 mg DAILYPRN PRN [place] CONSTIPATION 10/21/19 16:30 Calcitriol (Rocaltrol) 0.25 mcg DAILY PO 10/22/19 09:00 10/25/19 10:26 Calcium Carbonate (Tums) 1,000 mg WM PO 10/21/19 18:00 10/25/19 12:01 Cyclobenzaprine HCl (Flexeril) 10 mg QHS PO 10/21/19 21:00 10/24/19 21:23 Docusate Sodium (Colace) 100 mg BID PO 10/21/19 21:00 10/25/19 10:26 Duloxetine HCl (Cymbalta) 30 mg DAILY PO 10/23/19 09:00 10/24/19 21:31 DC 10/24/19 09:00 Duloxetine HCl (Cymbalta) 60 mg DAILY PO 10/22/19 09:00 10/22/19 14:13 DC 10/22/19 10:24 Furosemide (Lasix) 20 mg DAILY PO 10/22/19 09:00 10/25/19 10:26 Gabapentin (Neurontin) 600 mg TID PO 10/26/19 08:00 Gabapentin (Neurontin) 800 mg TID PO 10/22/19 16:00 10/25/19 22:00 10/25/19 10:25 Gabapentin (Neurontin) 1,200 mg TID PO 10/21/19 16:00 10/22/19 14:13 DC 10/22/19 10:24 Guaifenesin (Mucinex Tab Er) 1,200 mg BID PO 10/21/19 21:00 10/25/19 10:26 Heparin Sodium (Porcine) (Heparin) 5,000 units Q8H SC 10/21/19 14:00 10/25/19 06:14 Home Med (Med Rec Complete!) ASDIRECTED XX 10/21/19 17:30 10/21/19 17:35 DC Hydrochlorothiazide (Hydrodiuril) 25 mg DAILY PO 10/22/19 09:00 10/25/19 10:25 Ibuprofen (Advil) 600 mg Q8HP PRN PO PAIN 10/21/19 16:30 10/25/19 01:15 Metoprolol Succinate (TopROL XL) 100 mg DAILY PO 10/22/19 09:00 10/25/19 10:27 Ondansetron HCl (Zofran Odt) 4 mg Q4HP PRN PO NAUSEA OR VOMITING 10/21/19 16:30 Pantoprazole Sodium (Protonix) 40 mg BID PO 10/21/19 21:00 10/25/19 10:25 Potassium Chloride (Micro-K Extencaps) 20 meq DAILY PO 10/24/19 09:00 10/25/19 10:26 Prednisone (Deltasone) 20 mg DAILY PO 10/25/19 09:00 10/25/19 10:27 Prednisone (Deltasone) 40 mg DAILY PO 10/22/19 09:00 10/24/19 21:00 DC 10/24/19 08:59 Ropinirole HCl (Requip) 1 mg QHS PO 10/21/19 21:00 10/24/19 21:23 Senna (Senokot) 1 tab QHS PO 10/21/19 21:00 10/24/19 21:23 Trazodone HCl (Desyrel) 25 mg QHS PRN PO INSOMNIA 10/22/19 14:15 10/23/19 14:51 DC 10/22/19 23:10 Trazodone HCl (Desyrel) 50 mg QHS PO 10/22/19 21:00 10/23/19 14:51 DC 10/22/19 20:58 Trazodone HCl (Desyrel) 50 mg QHSP PRN PO INSOMNIA 10/21/19 16:30 10/22/19 14:13 DC Trazodone HCl (Desyrel) 75 mg QHS PO 10/23/19 21:00 10/24/19 21:23 Trimethoprim/ Sulfamethoxazole (Bactrim Ds, Septra Ds 160mg/ 800mg) 1 tab MoWeFr@09 PO 10/23/19 09:00 10/25/19 10:25 Vitamin D (Drisdol) 50,000 units Mo@ PO 10/28/19 09:00 ARMANDO HARRELL MD October 25, 2019 16:34
[2019-10-25 20:00] VITALS: BP 132/82
[2019-10-25] MEDS: CYCLOBENZAPRINE 10MG TABLET PO SCH (21:16)
[2019-10-25] MEDS: traZODone 25MG PER 1/2 TABLET PO SCH (21:16)
[2019-10-25] MEDS: SENNA 8.6 MG TAB (SENOKOT) PO SCH (21:17)
[2019-10-25] MEDS: rOPINIRole 1MG TAB PO SCH (21:18)
[2019-10-26] MEDS: HEPARIN SOD (PORCINE) 5000UNITS/ML VIAL (J1644 PER 1000UNITS) SC SCH (05:27)
[2019-10-26 05:35] VITALS: BP 154/88
[2019-10-26] MEDS: IPRATROPIUM 0.5MG/ALBUTEROL 2.5MG INH SOL UD 3ML (DUONEB)(J7620) NEB SCH (07:09)
[2019-10-26] MEDS ORDERED: GABAPENTIN 300 MG CAP PO SCH (08:00)
[2019-10-26] MEDS: CALCITRIOL 0.25 MCG CAP (S0169) PO SCH (08:06)
[2019-10-26] MEDS: ASPIRIN 81 MG ENTERIC TAB PO SCH (08:06)
[2019-10-26] MEDS: AMITRIPTYLINE 25 MG TAB PO SCH (08:06)
[2019-10-26] MEDS: POTASSIUM CHLORIDE 10 MEQ SR TABLET PO SCH (08:06)
[2019-10-26 08:07] VITALS: BP 154/88
[2019-10-26] MEDS: CALCIUM CARBONATE 500 MG CHEW U/D PO SCH (08:07)
[2019-10-26] MEDS: METOPROLOL SUCC (TopROL XL) 100MG *XL* TAB PO SCH (08:07)
[2019-10-26] MEDS: FUROSEMIDE 20 MG TAB PO SCH (08:07)
[2019-10-26] MEDS: PANTOPRAZOLE 40MG TAB (PROTONIX) PO SCH (08:07)
[2019-10-26] MEDS: predniSONE 20 MG TAB PO SCH (08:07)
[2019-10-26] MEDS: guaiFENesin ER 600 MG TAB PO SCH (08:07)
[2019-10-26] MEDS: BACLOFEN 10 MG TAB PO SCH (08:08)
[2019-10-26] MEDS: hydroCHLOROthiazide 25 MG TAB PO SCH (08:08)
[2019-10-26] MEDS: DOCUSATE SODIUM 100 MG CAP PO SCH (08:10)
[2019-10-26] MEDS: REMEDY PHYTOPLEX Z-GUARD PASTE 113GM TUBE (FROM STOREROOM PRODUCT) TOP SCH (08:10)
[2019-10-28] MEDS ORDERED: VITAMIN D 50,000 UNITS CAPSULE (ERGOCALCIFEROL 1.25MG) PO SCH (09:00)
== END 2019-10-26 13:15 | disposition home health service (06) | DRG 49 ==
LOC: M PM&R 14:20
PROVIDERS: ADMIT Physical Medicine & Rehabilitation; ATTEND Physical Medicine & Rehabilitation
DX: G61.0 Guillain-Barre syndrome (principal); J96.10 Chronic respiratory failure, unspecified whether with hypoxia or hypercapnia; K76.0 Fatty (change of) liver, not elsewhere classified; Z99.81 Dependence on supplemental oxygen; J98.4 Other disorders of lung; M79.661 Pain in right lower leg; M79.662 Pain in left lower leg; R06.02 Shortness of breath; R53.1 Weakness; G25.81 Restless legs syndrome; R26.89 Other abnormalities of gait and mobility; I10 Essential (primary) hypertension; F32.9 Major depressive disorder, single episode, unspecified; Z90.49 Acquired absence of other specified parts of digestive tract; Z79.82 Long term (current) use of aspirin; Z79.52 Long term (current) use of systemic steroids; Z79.899 Other long term (current) drug therapy; Z91.048 Other nonmedicinal substance allergy status; Z87.442 Personal history of urinary calculi

== ENCOUNTER 2020-01-14 15:40 | Inpatient (IN) | payer BC, OTHER ==
[~2020-01-14 15:40] MED LIST changes: +AMIT25TA PO; +FURO20TA2 PO; +IPRATROPIUM 0.5MG/ALBUTEROL 2.5MG INH SOL UD 3ML (DUONEB) ONE; +MELA3TAB30 PO; -MELA3TAB62 PO; +PANT40TA29 PO; -PANT40TA3 PO
[2020-01-14] MEDS ORDERED: LevoFLOXacin 750MG/150ML IV BAG (J1956 PER 250MG) As Ordered ONE (17:38)
[2020-01-14] MEDS ORDERED: LevoFLOXacin 750MG/150ML IV BAG (J1956 PER 250MG) ONE (17:38)
[2020-01-14] MEDS ORDERED: KETOROLAC 30 MG/ML 1ML VIAL As Ordered ONE (17:38)
[2020-01-14] MEDS ORDERED: KETOROLAC 30 MG/ML 1ML VIAL ONE (17:38)
[2020-01-14] MEDS ORDERED: NORCO, ANEXSIA 5/325MG TABLET (HYDROcodone/ACETAMINOPHEN) ONE (20:30)
[2020-01-14] MEDS ORDERED: NORCO, ANEXSIA 5/325MG TABLET (HYDROcodone/ACETAMINOPHEN) As Ordered ONE (20:30)
[2020-01-14] MEDS ORDERED: MORPHINE 2 MG/ML 1ML VIAL (J2270) As Ordered ONE (23:34)
[2020-01-14] MEDS ORDERED: MORPHINE 2 MG/ML 1ML VIAL (J2270) ONE (23:34)
[2020-01-15] MEDS ORDERED: NORCO, ANEXSIA 5/325MG TABLET (HYDROcodone/ACETAMINOPHEN) As Ordered ONE ×2 (05:53→16:07)
[2020-01-15] MEDS ORDERED: NORCO, ANEXSIA 5/325MG TABLET (HYDROcodone/ACETAMINOPHEN) ONE ×2 (05:53→16:07)
[2020-01-15] MEDS ORDERED: LACTULOSE 20 GM/30 ML SYRUP UD ONE (06:24)
[2020-01-15] MEDS ORDERED: LACTULOSE 20 GM/30 ML SYRUP UD As Ordered ONE (06:24)
[2020-01-15] MEDS ORDERED: BISACODYL 10 MG SUPP ONE (06:24)
[2020-01-15] MEDS ORDERED: BISACODYL 10 MG SUPP As Ordered ONE (06:25)
[2020-01-15] MEDS ORDERED: FUROSEMIDE 20 MG TAB ONE (07:39)
[2020-01-15] MEDS ORDERED: CALCITRIOL 0.25 MCG CAP (S0169) ONE (07:39)
[2020-01-15] MEDS ORDERED: DOCUSATE SODIUM 100 MG CAP As Ordered ONE ×2 (07:39→20:41)
[2020-01-15] MEDS ORDERED: ENOXAPARIN 40MG/0.4ML SYRINGE (J1650 PER 10MG) ONE (07:39)
[2020-01-15] MEDS ORDERED: SERTRALINE HCL 50 MG TAB ONE (07:39)
[2020-01-15] MEDS ORDERED: BACLOFEN 10 MG TAB ONE ×3 (07:39→20:40)
[2020-01-15] MEDS ORDERED: AMITRIPTYLINE 25 MG TAB ONE ×2 (07:39→20:40)
[2020-01-15] MEDS ORDERED: ASPIRIN 81 MG ENTERIC TAB ONE (07:39)
[2020-01-15] MEDS ORDERED: POTASSIUM CHLORIDE 10 MEQ SR TABLET ONE (07:39)
[2020-01-15] MEDS ORDERED: PANTOPRAZOLE 40MG TAB (PROTONIX) ONE (07:39)
[2020-01-15] MEDS ORDERED: PREGABALIN 100 MG CAP (LYRICA) As Ordered ONE ×3 (07:39→20:40)
[2020-01-15] MEDS ORDERED: DOCUSATE SODIUM 100 MG CAP ONE ×2 (07:39→20:40)
[2020-01-15] MEDS ORDERED: METOPROLOL SUCC (TopROL XL) 100MG *XL* TAB ONE (07:39)
[2020-01-15] MEDS ORDERED: rOPINIRole 1MG TAB ONE ×3 (07:39→20:40)
[2020-01-15] MEDS ORDERED: PREGABALIN 100 MG CAP (LYRICA) ONE ×3 (07:39→20:40)
[2020-01-15] MEDS ORDERED: BACLOFEN 10 MG TAB As Ordered ONE ×3 (07:39→20:41)
[2020-01-15] MEDS ORDERED: hydroCHLOROthiazide 25 MG TAB ONE (07:39)
[2020-01-15] MEDS ORDERED: CALCITRIOL 0.25 MCG CAP (S0169) As Ordered ONE (07:40)
[2020-01-15] MEDS ORDERED: hydroCHLOROthiazide 25 MG TAB As Ordered ONE (07:40)
[2020-01-15] MEDS ORDERED: FUROSEMIDE 20 MG TAB As Ordered ONE (07:40)
[2020-01-15] MEDS ORDERED: POTASSIUM CHLORIDE 10 MEQ SR TABLET As Ordered ONE (07:40)
[2020-01-15] MEDS ORDERED: SERTRALINE HCL 50 MG TAB As Ordered ONE (07:40)
[2020-01-15] MEDS ORDERED: AMITRIPTYLINE 25 MG TAB As Ordered ONE ×2 (07:40→20:41)
[2020-01-15] MEDS ORDERED: PANTOPRAZOLE 40MG TAB (PROTONIX) As Ordered ONE (07:40)
[2020-01-15] MEDS ORDERED: rOPINIRole 1MG TAB As Ordered ONE ×3 (07:41→20:42)
[2020-01-15] MEDS ORDERED: METOPROLOL SUCC (TopROL XL) 100MG *XL* TAB As Ordered ONE (07:41)
[2020-01-15] MEDS ORDERED: ENOXAPARIN 40MG/0.4ML SYRINGE (J1650 PER 10MG) As Ordered ONE (07:41)
[2020-01-15] MEDS ORDERED: ASPIRIN 81 MG ENTERIC TAB As Ordered ONE (07:41)
[2020-01-15] MEDS ORDERED: IPRATROPIUM 0.5MG/ALBUTEROL 2.5MG INH SOL UD 3ML (DUONEB) ONE (10:00)
[2020-01-15] MEDS ORDERED: ONDANSETRON 4 MG TAB ONE ×2 (10:15→20:40)
[2020-01-15] MEDS ORDERED: ONDANSETRON 4 MG TAB As Ordered ONE ×2 (10:15→20:42)
[2020-01-15] MEDS ORDERED: ISOVUE-370 76% 100ML VIAL As Ordered ONE (14:11)
[2020-01-15] MEDS ORDERED: BACTRIM 160MG/800MG DS TAB ONE (20:40)
[2020-01-15] MEDS ORDERED: DULoxetine 30 MG CAP (CYMBALTA) ONE (20:40)
[2020-01-15] MEDS ORDERED: traZODone 50 MG TAB ONE (20:40)
[2020-01-15] MEDS ORDERED: methylPREDNISolone 125MG 2ML VIAL ONE (20:40)
[2020-01-15] MEDS ORDERED: zolPIDEM TARTRATE 5 MG TAB ONE (20:40)
[2020-01-15] MEDS ORDERED: CYCLOBENZAPRINE 10MG TABLET ONE (20:40)
[2020-01-15] MEDS ORDERED: traZODone 50 MG TAB As Ordered ONE (20:41)
[2020-01-15] MEDS ORDERED: CYCLOBENZAPRINE 10MG TABLET As Ordered ONE (20:41)
[2020-01-15] MEDS ORDERED: DULoxetine 30 MG CAP (CYMBALTA) As Ordered ONE (20:42)
[2020-01-15] MEDS ORDERED: zolPIDEM TARTRATE 5 MG TAB As Ordered ONE (20:42)
[2020-01-15] MEDS ORDERED: BACTRIM 160MG/800MG DS TAB As Ordered ONE (20:43)
[2020-01-15] MEDS ORDERED: methylPREDNISolone 125MG 2ML VIAL As Ordered ONE (20:44)
[2020-01-15] MEDS ORDERED: DICYCLOMINE INJ 20MG/2ML (J0500) ONE (21:00)
[2020-01-16] MEDS ORDERED: methylPREDNISolone 125MG 2ML VIAL As Ordered ONE ×4 (02:05→20:37)
[2020-01-16] MEDS ORDERED: methylPREDNISolone 125MG 2ML VIAL ONE ×4 (02:05→20:35)
[2020-01-16] MEDS ORDERED: ONDANSETRON 4 MG TAB ONE (05:36)
[2020-01-16] MEDS ORDERED: NORCO, ANEXSIA 5/325MG TABLET (HYDROcodone/ACETAMINOPHEN) ONE (05:36)
[2020-01-16] MEDS ORDERED: ONDANSETRON 4 MG TAB As Ordered ONE (05:36)
[2020-01-16] MEDS ORDERED: NORCO, ANEXSIA 5/325MG TABLET (HYDROcodone/ACETAMINOPHEN) As Ordered ONE (05:36)
[2020-01-16] MEDS ORDERED: BACLOFEN 10 MG TAB ONE (07:59)
[2020-01-16] MEDS ORDERED: PANTOPRAZOLE 40MG TAB (PROTONIX) ONE (07:59)
[2020-01-16] MEDS ORDERED: ENOXAPARIN 40MG/0.4ML SYRINGE (J1650 PER 10MG) ONE (07:59)
[2020-01-16] MEDS ORDERED: DOCUSATE SODIUM 100 MG CAP ONE ×2 (07:59→20:35)
[2020-01-16] MEDS ORDERED: AMITRIPTYLINE 25 MG TAB ONE ×2 (07:59→13:00)
[2020-01-16] MEDS ORDERED: hydroCHLOROthiazide 25 MG TAB ONE (07:59)
[2020-01-16] MEDS ORDERED: FUROSEMIDE 20 MG TAB ONE (07:59)
[2020-01-16] MEDS ORDERED: DOCUSATE SODIUM 100 MG CAP As Ordered ONE ×2 (07:59→20:36)
[2020-01-16] MEDS ORDERED: POTASSIUM CHLORIDE 10 MEQ SR TABLET As Ordered ONE (07:59)
[2020-01-16] MEDS ORDERED: ASPIRIN 81 MG ENTERIC TAB ONE (07:59)
[2020-01-16] MEDS ORDERED: METOPROLOL SUCC (TopROL XL) 100MG *XL* TAB ONE (07:59)
[2020-01-16] MEDS ORDERED: PREGABALIN 100 MG CAP (LYRICA) As Ordered ONE ×3 (07:59→20:36)
[2020-01-16] MEDS ORDERED: POTASSIUM CHLORIDE 10 MEQ SR TABLET ONE (07:59)
[2020-01-16] MEDS ORDERED: CALCITRIOL 0.25 MCG CAP (S0169) ONE (07:59)
[2020-01-16] MEDS ORDERED: rOPINIRole 1MG TAB ONE ×2 (07:59→20:41)
[2020-01-16] MEDS ORDERED: PREGABALIN 100 MG CAP (LYRICA) ONE ×3 (07:59→20:35)
[2020-01-16] MEDS ORDERED: BACLOFEN 10 MG TAB As Ordered ONE (07:59)
[2020-01-16] MEDS ORDERED: SERTRALINE HCL 50 MG TAB ONE (07:59)
[2020-01-16] MEDS ORDERED: SERTRALINE HCL 50 MG TAB As Ordered ONE (08:00)
[2020-01-16] MEDS ORDERED: AMITRIPTYLINE 25 MG TAB As Ordered ONE (08:00)
[2020-01-16] MEDS ORDERED: CALCITRIOL 0.25 MCG CAP (S0169) As Ordered ONE (08:00)
[2020-01-16] MEDS ORDERED: rOPINIRole 1MG TAB As Ordered ONE ×2 (08:00→20:41)
[2020-01-16] MEDS ORDERED: FUROSEMIDE 20 MG TAB As Ordered ONE (08:00)
[2020-01-16] MEDS ORDERED: PANTOPRAZOLE 40MG TAB (PROTONIX) As Ordered ONE (08:00)
[2020-01-16] MEDS ORDERED: hydroCHLOROthiazide 25 MG TAB As Ordered ONE (08:00)
[2020-01-16] MEDS ORDERED: ASPIRIN 81 MG ENTERIC TAB As Ordered ONE (08:00)
[2020-01-16] MEDS ORDERED: ENOXAPARIN 40MG/0.4ML SYRINGE (J1650 PER 10MG) As Ordered ONE (08:01)
[2020-01-16] MEDS ORDERED: METOPROLOL SUCC (TopROL XL) 100MG *XL* TAB As Ordered ONE (08:01)
[2020-01-16] MEDS ORDERED: IPRATROPIUM 0.5MG/ALBUTEROL 2.5MG INH SOL UD 3ML (DUONEB) ONE (10:00)
[2020-01-16] MEDS ORDERED: PERCOCET 5MG/325MG TAB ONE ×2 (15:51→20:35)
[2020-01-16] MEDS ORDERED: PERCOCET 5MG/325MG TAB As Ordered ONE ×2 (15:51→20:37)
[2020-01-16] MEDS ORDERED: DULoxetine 30 MG CAP (CYMBALTA) ONE (20:35)
[2020-01-16] MEDS ORDERED: DULoxetine 30 MG CAP (CYMBALTA) As Ordered ONE (20:35)
[2020-01-16] MEDS ORDERED: traZODone 50 MG TAB ONE (20:35)
[2020-01-16] MEDS ORDERED: traZODone 50 MG TAB As Ordered ONE (20:36)
[2020-01-17] MEDS ORDERED: methylPREDNISolone 125MG 2ML VIAL ONE ×3 (01:25→20:07)
[2020-01-17] MEDS ORDERED: methylPREDNISolone 125MG 2ML VIAL As Ordered ONE ×4 (01:25→20:08)
[2020-01-17] MEDS ORDERED: PERCOCET 5MG/325MG TAB As Ordered ONE ×4 (05:39→20:34)
[2020-01-17] MEDS ORDERED: PERCOCET 5MG/325MG TAB ONE ×4 (05:39→20:34)
[2020-01-17] MEDS ORDERED: AMITRIPTYLINE 25 MG TAB ONE (08:00)
[2020-01-17] MEDS ORDERED: DOCUSATE SODIUM 100 MG CAP ONE ×2 (08:58→20:07)
[2020-01-17] MEDS ORDERED: POTASSIUM CHLORIDE 10 MEQ SR TABLET As Ordered ONE (08:58)
[2020-01-17] MEDS ORDERED: METOPROLOL SUCC (TopROL XL) 100MG *XL* TAB ONE (08:58)
[2020-01-17] MEDS ORDERED: ENOXAPARIN 40MG/0.4ML SYRINGE (J1650 PER 10MG) ONE (08:58)
[2020-01-17] MEDS ORDERED: PREGABALIN 100 MG CAP (LYRICA) ONE ×3 (08:58→20:07)
[2020-01-17] MEDS ORDERED: hydroCHLOROthiazide 25 MG TAB ONE (08:58)
[2020-01-17] MEDS ORDERED: PANTOPRAZOLE 40MG TAB (PROTONIX) ONE (08:58)
[2020-01-17] MEDS ORDERED: ASPIRIN 81 MG ENTERIC TAB ONE (08:58)
[2020-01-17] MEDS ORDERED: SERTRALINE HCL 50 MG TAB ONE (08:58)
[2020-01-17] MEDS ORDERED: FUROSEMIDE 20 MG TAB ONE ×2 (08:58→09:30)
[2020-01-17] MEDS ORDERED: POTASSIUM CHLORIDE 10 MEQ SR TABLET ONE (08:58)
[2020-01-17] MEDS ORDERED: DOCUSATE SODIUM 100 MG CAP As Ordered ONE ×2 (08:58→20:07)
[2020-01-17] MEDS ORDERED: ENOXAPARIN 40MG/0.4ML SYRINGE (J1650 PER 10MG) As Ordered ONE (08:59)
[2020-01-17] MEDS ORDERED: METOPROLOL SUCC (TopROL XL) 100MG *XL* TAB As Ordered ONE (08:59)
[2020-01-17] MEDS ORDERED: PANTOPRAZOLE 40MG TAB (PROTONIX) As Ordered ONE (08:59)
[2020-01-17] MEDS ORDERED: PREGABALIN 100 MG CAP (LYRICA) As Ordered ONE ×3 (09:00→20:07)
[2020-01-17] MEDS ORDERED: ASPIRIN 81 MG ENTERIC TAB As Ordered ONE (09:01)
[2020-01-17] MEDS ORDERED: hydroCHLOROthiazide 25 MG TAB As Ordered ONE (09:01)
[2020-01-17] MEDS ORDERED: FUROSEMIDE 20 MG TAB As Ordered ONE ×2 (09:01→09:30)
[2020-01-17] MEDS ORDERED: SERTRALINE HCL 50 MG TAB As Ordered ONE (09:01)
[2020-01-17] MEDS ORDERED: IPRATROPIUM 0.5MG/ALBUTEROL 2.5MG INH SOL UD 3ML (DUONEB) ONE (10:00)
[2020-01-17] MEDS ORDERED: BUDESONIDE 0.5 MG/2 ML INHALATION SUSPENSION ONE (10:00)
[2020-01-17] MEDS ORDERED: HumaLOG INSULIN (NovoLOG) PER UNIT As Ordered ONE ×3 (12:20→20:41)
[2020-01-17] MEDS ORDERED: HumaLOG INSULIN (NovoLOG) PER UNIT ONE ×3 (12:20→20:41)
[2020-01-17] MEDS ORDERED: DICYCLOMINE 10 MG CAP ONE (13:00)
[2020-01-17] MEDS ORDERED: BACTRIM 160MG/800MG DS TAB ONE (13:00)
[2020-01-17] MEDS ORDERED: CALCITRIOL 0.25 MCG CAP (S0169) ONE (13:00)
[2020-01-17] MEDS ORDERED: rOPINIRole 1MG TAB ONE (13:00)
[2020-01-17] MEDS ORDERED: DULoxetine 30 MG CAP (CYMBALTA) As Ordered ONE ×2 (20:07→20:10)
[2020-01-17] MEDS ORDERED: traZODone 50 MG TAB ONE (20:07)
[2020-01-17] MEDS ORDERED: traZODone 50 MG TAB As Ordered ONE (20:07)
[2020-01-17] MEDS ORDERED: DULoxetine 30 MG CAP (CYMBALTA) ONE (20:10)
[2020-01-18] MEDS ORDERED: methylPREDNISolone 125MG 2ML VIAL ONE ×2 (03:30→07:53)
[2020-01-18] MEDS ORDERED: PERCOCET 5MG/325MG TAB ONE ×4 (03:30→20:32)
[2020-01-18] MEDS ORDERED: methylPREDNISolone 125MG 2ML VIAL As Ordered ONE ×2 (03:30→07:56)
[2020-01-18] MEDS ORDERED: PERCOCET 5MG/325MG TAB As Ordered ONE ×4 (03:31→20:32)
[2020-01-18] MEDS ORDERED: HumaLOG INSULIN (NovoLOG) PER UNIT ONE ×3 (07:53→17:03)
[2020-01-18] MEDS ORDERED: FUROSEMIDE 40 MG TAB ONE (07:53)
[2020-01-18] MEDS ORDERED: ASPIRIN 81 MG ENTERIC TAB ONE (07:53)
[2020-01-18] MEDS ORDERED: PANTOPRAZOLE 40MG TAB (PROTONIX) As Ordered ONE (07:53)
[2020-01-18] MEDS ORDERED: POTASSIUM CHLORIDE 10 MEQ SR TABLET As Ordered ONE (07:53)
[2020-01-18] MEDS ORDERED: hydroCHLOROthiazide 25 MG TAB ONE (07:53)
[2020-01-18] MEDS ORDERED: ENOXAPARIN 40MG/0.4ML SYRINGE (J1650 PER 10MG) ONE (07:53)
[2020-01-18] MEDS ORDERED: DOCUSATE SODIUM 100 MG CAP ONE ×2 (07:53→09:59)
[2020-01-18] MEDS ORDERED: METOPROLOL SUCC (TopROL XL) 100MG *XL* TAB ONE (07:53)
[2020-01-18] MEDS ORDERED: PANTOPRAZOLE 40MG TAB (PROTONIX) ONE (07:53)
[2020-01-18] MEDS ORDERED: POTASSIUM CHLORIDE 10 MEQ SR TABLET ONE (07:53)
[2020-01-18] MEDS ORDERED: SERTRALINE HCL 50 MG TAB ONE (07:53)
[2020-01-18] MEDS ORDERED: PREGABALIN 100 MG CAP (LYRICA) ONE ×3 (07:53→16:16)
[2020-01-18] MEDS ORDERED: DOCUSATE SODIUM 100 MG CAP As Ordered ONE ×2 (07:53→19:59)
[2020-01-18] MEDS ORDERED: METOPROLOL SUCC (TopROL XL) 100MG *XL* TAB As Ordered ONE (07:55)
[2020-01-18] MEDS ORDERED: HumaLOG INSULIN (NovoLOG) PER UNIT As Ordered ONE ×3 (07:55→17:03)
[2020-01-18] MEDS ORDERED: ENOXAPARIN 40MG/0.4ML SYRINGE (J1650 PER 10MG) As Ordered ONE (07:55)
[2020-01-18] MEDS ORDERED: ASPIRIN 81 MG ENTERIC TAB As Ordered ONE (07:56)
[2020-01-18] MEDS ORDERED: hydroCHLOROthiazide 25 MG TAB As Ordered ONE (07:56)
[2020-01-18] MEDS ORDERED: SERTRALINE HCL 50 MG TAB As Ordered ONE (07:56)
[2020-01-18] MEDS ORDERED: PREGABALIN 100 MG CAP (LYRICA) As Ordered ONE ×3 (07:56→20:00)
[2020-01-18] MEDS ORDERED: FUROSEMIDE 40 MG TAB As Ordered ONE (07:56)
[2020-01-18] MEDS ORDERED: traZODone 50 MG TAB ONE (09:59)
[2020-01-18] MEDS ORDERED: predniSONE 20 MG TAB ONE (09:59)
[2020-01-18] MEDS ORDERED: DULoxetine 30 MG CAP (CYMBALTA) ONE (09:59)
[2020-01-18] MEDS ORDERED: IPRATROPIUM 0.5MG/ALBUTEROL 2.5MG INH SOL UD 3ML (DUONEB) ONE (10:00)
[2020-01-18] MEDS ORDERED: BUDESONIDE 0.5 MG/2 ML INHALATION SUSPENSION ONE (10:00)
[2020-01-18] MEDS ORDERED: DULoxetine 30 MG CAP (CYMBALTA) As Ordered ONE (19:59)
[2020-01-18] MEDS ORDERED: predniSONE 20 MG TAB As Ordered ONE (20:00)
[2020-01-18] MEDS ORDERED: traZODone 50 MG TAB As Ordered ONE (20:00)
[2020-01-19] MEDS ORDERED: PERCOCET 5MG/325MG TAB ONE ×4 (04:47→23:56)
[2020-01-19] MEDS ORDERED: PERCOCET 5MG/325MG TAB As Ordered ONE ×4 (04:47→23:56)
[2020-01-19] MEDS ORDERED: HumaLOG INSULIN (NovoLOG) PER UNIT ONE ×5 (07:07→18:13)
[2020-01-19] MEDS ORDERED: HumaLOG INSULIN (NovoLOG) PER UNIT As Ordered ONE ×4 (07:07→18:15)
[2020-01-19] MEDS ORDERED: PANTOPRAZOLE 40MG TAB (PROTONIX) As Ordered ONE (08:30)
[2020-01-19] MEDS ORDERED: DOCUSATE SODIUM 100 MG CAP ONE ×2 (08:30→21:02)
[2020-01-19] MEDS ORDERED: SERTRALINE HCL 50 MG TAB ONE (08:30)
[2020-01-19] MEDS ORDERED: ENOXAPARIN 40MG/0.4ML SYRINGE (J1650 PER 10MG) ONE (08:30)
[2020-01-19] MEDS ORDERED: FUROSEMIDE 40 MG TAB ONE (08:30)
[2020-01-19] MEDS ORDERED: ENOXAPARIN 40MG/0.4ML SYRINGE (J1650 PER 10MG) As Ordered ONE (08:30)
[2020-01-19] MEDS ORDERED: predniSONE 20 MG TAB ONE ×2 (08:30→21:02)
[2020-01-19] MEDS ORDERED: PANTOPRAZOLE 40MG TAB (PROTONIX) ONE (08:30)
[2020-01-19] MEDS ORDERED: POTASSIUM CHLORIDE 10 MEQ SR TABLET As Ordered ONE (08:30)
[2020-01-19] MEDS ORDERED: DOCUSATE SODIUM 100 MG CAP As Ordered ONE ×2 (08:30→21:02)
[2020-01-19] MEDS ORDERED: ASPIRIN 81 MG ENTERIC TAB ONE (08:30)
[2020-01-19] MEDS ORDERED: POTASSIUM CHLORIDE 10 MEQ SR TABLET ONE (08:30)
[2020-01-19] MEDS ORDERED: hydroCHLOROthiazide 25 MG TAB ONE (08:30)
[2020-01-19] MEDS ORDERED: PREGABALIN 100 MG CAP (LYRICA) ONE ×3 (08:30→21:02)
[2020-01-19] MEDS ORDERED: METOPROLOL SUCC (TopROL XL) 100MG *XL* TAB ONE (08:30)
[2020-01-19] MEDS ORDERED: PREGABALIN 100 MG CAP (LYRICA) As Ordered ONE ×3 (08:31→21:03)
[2020-01-19] MEDS ORDERED: METOPROLOL SUCC (TopROL XL) 100MG *XL* TAB As Ordered ONE (08:31)
[2020-01-19] MEDS ORDERED: hydroCHLOROthiazide 25 MG TAB As Ordered ONE (08:32)
[2020-01-19] MEDS ORDERED: SERTRALINE HCL 50 MG TAB As Ordered ONE (08:32)
[2020-01-19] MEDS ORDERED: ASPIRIN 81 MG ENTERIC TAB As Ordered ONE (08:32)
[2020-01-19] MEDS ORDERED: FUROSEMIDE 40 MG TAB As Ordered ONE (08:32)
[2020-01-19] MEDS ORDERED: predniSONE 20 MG TAB As Ordered ONE ×2 (08:32→21:02)
[2020-01-19] MEDS ORDERED: IPRATROPIUM 0.5MG/ALBUTEROL 2.5MG INH SOL UD 3ML (DUONEB) ONE (10:00)
[2020-01-19] MEDS ORDERED: BUDESONIDE 0.5 MG/2 ML INHALATION SUSPENSION ONE (10:00)
[2020-01-19] MEDS ORDERED: rOPINIRole 1MG TAB ONE (21:02)
[2020-01-19] MEDS ORDERED: traZODone 50 MG TAB ONE (21:02)
[2020-01-19] MEDS ORDERED: DULoxetine 30 MG CAP (CYMBALTA) ONE (21:02)
[2020-01-19] MEDS ORDERED: traZODone 50 MG TAB As Ordered ONE (21:03)
[2020-01-19] MEDS ORDERED: DULoxetine 30 MG CAP (CYMBALTA) As Ordered ONE (21:03)
[2020-01-19] MEDS ORDERED: rOPINIRole 1MG TAB As Ordered ONE (21:03)
[2020-01-20] MEDS ORDERED: PERCOCET 5MG/325MG TAB ONE ×2 (08:45→20:25)
[2020-01-20] MEDS ORDERED: HumaLOG INSULIN (NovoLOG) PER UNIT As Ordered ONE ×3 (08:45→17:26)
[2020-01-20] MEDS ORDERED: HumaLOG INSULIN (NovoLOG) PER UNIT ONE ×3 (08:45→17:26)
[2020-01-20] MEDS ORDERED: PERCOCET 5MG/325MG TAB As Ordered ONE ×2 (08:46→20:26)
[2020-01-20] MEDS ORDERED: **hydrALAZINE HCL** 25 MG TAB ONE (08:53)
[2020-01-20] MEDS ORDERED: FUROSEMIDE 40 MG TAB ONE (08:53)
[2020-01-20] MEDS ORDERED: SERTRALINE HCL 50 MG TAB ONE (08:53)
[2020-01-20] MEDS ORDERED: DOCUSATE SODIUM 100 MG CAP ONE ×2 (08:53→20:25)
[2020-01-20] MEDS ORDERED: CALCITRIOL 0.25 MCG CAP (S0169) ONE (08:53)
[2020-01-20] MEDS ORDERED: PREGABALIN 100 MG CAP (LYRICA) ONE ×3 (08:53→20:25)
[2020-01-20] MEDS ORDERED: PANTOPRAZOLE 40MG TAB (PROTONIX) ONE (08:53)
[2020-01-20] MEDS ORDERED: METOPROLOL SUCC (TopROL XL) 100MG *XL* TAB ONE (08:53)
[2020-01-20] MEDS ORDERED: DOCUSATE SODIUM 100 MG CAP As Ordered ONE ×2 (08:53→20:25)
[2020-01-20] MEDS ORDERED: rOPINIRole 1MG TAB ONE ×3 (08:53→20:25)
[2020-01-20] MEDS ORDERED: POTASSIUM CHLORIDE 10 MEQ SR TABLET ONE (08:53)
[2020-01-20] MEDS ORDERED: PANTOPRAZOLE 40MG TAB (PROTONIX) As Ordered ONE (08:53)
[2020-01-20] MEDS ORDERED: ASPIRIN 81 MG ENTERIC TAB ONE (08:53)
[2020-01-20] MEDS ORDERED: predniSONE 20 MG TAB ONE ×2 (08:53→20:25)
[2020-01-20] MEDS ORDERED: ENOXAPARIN 40MG/0.4ML SYRINGE (J1650 PER 10MG) ONE (08:53)
[2020-01-20] MEDS ORDERED: METOPROLOL SUCC (TopROL XL) 100MG *XL* TAB As Ordered ONE (08:55)
[2020-01-20] MEDS ORDERED: SERTRALINE HCL 50 MG TAB As Ordered ONE (08:55)
[2020-01-20] MEDS ORDERED: FUROSEMIDE 40 MG TAB As Ordered ONE (08:55)
[2020-01-20] MEDS ORDERED: POTASSIUM CHLORIDE 10 MEQ SR TABLET As Ordered ONE (08:55)
[2020-01-20] MEDS ORDERED: predniSONE 20 MG TAB As Ordered ONE ×2 (08:55→20:26)
[2020-01-20] MEDS ORDERED: ENOXAPARIN 40MG/0.4ML SYRINGE (J1650 PER 10MG) As Ordered ONE (08:56)
[2020-01-20] MEDS ORDERED: PREGABALIN 100 MG CAP (LYRICA) As Ordered ONE ×3 (08:56→20:26)
[2020-01-20] MEDS ORDERED: hydroCHLOROthiazide 25 MG TAB As Ordered ONE (08:56)
[2020-01-20] MEDS ORDERED: CALCITRIOL 0.25 MCG CAP (S0169) As Ordered ONE (08:56)
[2020-01-20] MEDS ORDERED: rOPINIRole 1MG TAB As Ordered ONE ×3 (08:57→20:26)
[2020-01-20] MEDS ORDERED: ASPIRIN 81 MG ENTERIC TAB As Ordered ONE (08:57)
[2020-01-20] MEDS ORDERED: BUDESONIDE 0.5 MG/2 ML INHALATION SUSPENSION ONE (10:00)
[2020-01-20] MEDS ORDERED: IPRATROPIUM 0.5MG/ALBUTEROL 2.5MG INH SOL UD 3ML (DUONEB) ONE (10:00)
[2020-01-20] MEDS ORDERED: DICYCLOMINE 10 MG CAP ONE (13:00)
[2020-01-20] MEDS ORDERED: BACTRIM 160MG/800MG DS TAB ONE (13:00)
[2020-01-20] MEDS ORDERED: DULoxetine 30 MG CAP (CYMBALTA) ONE (20:25)
[2020-01-20] MEDS ORDERED: traZODone 50 MG TAB ONE (20:25)
[2020-01-20] MEDS ORDERED: DULoxetine 30 MG CAP (CYMBALTA) As Ordered ONE (20:26)
[2020-01-20] MEDS ORDERED: traZODone 50 MG TAB As Ordered ONE (20:26)
[2020-01-21] MEDS ORDERED: PERCOCET 5MG/325MG TAB ONE ×4 (04:40→20:21)
[2020-01-21] MEDS ORDERED: PERCOCET 5MG/325MG TAB As Ordered ONE ×4 (04:40→20:25)
[2020-01-21] MEDS ORDERED: ASPIRIN 81 MG ENTERIC TAB ONE (08:06)
[2020-01-21] MEDS ORDERED: CALCITRIOL 0.25 MCG CAP (S0169) ONE (08:06)
[2020-01-21] MEDS ORDERED: predniSONE 20 MG TAB ONE ×2 (08:06→20:21)
[2020-01-21] MEDS ORDERED: DOCUSATE SODIUM 100 MG CAP ONE ×2 (08:06→20:21)
[2020-01-21] MEDS ORDERED: hydroCHLOROthiazide 25 MG TAB ONE (08:06)
[2020-01-21] MEDS ORDERED: POTASSIUM CHLORIDE 10 MEQ SR TABLET ONE (08:06)
[2020-01-21] MEDS ORDERED: METOPROLOL SUCC (TopROL XL) 50MG **XL** TAB ONE (08:06)
[2020-01-21] MEDS ORDERED: SERTRALINE HCL 50 MG TAB ONE (08:06)
[2020-01-21] MEDS ORDERED: HumaLOG INSULIN (NovoLOG) PER UNIT ONE ×3 (08:06→16:35)
[2020-01-21] MEDS ORDERED: ENOXAPARIN 40MG/0.4ML SYRINGE (J1650 PER 10MG) ONE (08:06)
[2020-01-21] MEDS ORDERED: DOCUSATE SODIUM 100 MG CAP As Ordered ONE ×2 (08:06→20:21)
[2020-01-21] MEDS ORDERED: PREGABALIN 100 MG CAP (LYRICA) ONE ×3 (08:06→20:21)
[2020-01-21] MEDS ORDERED: rOPINIRole 1MG TAB ONE ×3 (08:06→20:21)
[2020-01-21] MEDS ORDERED: FUROSEMIDE 40 MG TAB ONE (08:06)
[2020-01-21] MEDS ORDERED: PANTOPRAZOLE 40MG TAB (PROTONIX) ONE (08:06)
[2020-01-21] MEDS ORDERED: SERTRALINE HCL 50 MG TAB As Ordered ONE (08:07)
[2020-01-21] MEDS ORDERED: FUROSEMIDE 40 MG TAB As Ordered ONE (08:07)
[2020-01-21] MEDS ORDERED: predniSONE 20 MG TAB As Ordered ONE ×2 (08:08→20:21)
[2020-01-21] MEDS ORDERED: ENOXAPARIN 40MG/0.4ML SYRINGE (J1650 PER 10MG) As Ordered ONE (08:08)
[2020-01-21] MEDS ORDERED: POTASSIUM CHLORIDE 10 MEQ SR TABLET As Ordered ONE (08:08)
[2020-01-21] MEDS ORDERED: PANTOPRAZOLE 40MG TAB (PROTONIX) As Ordered ONE (08:08)
[2020-01-21] MEDS ORDERED: HumaLOG INSULIN (NovoLOG) PER UNIT As Ordered ONE ×3 (08:09→16:35)
[2020-01-21] MEDS ORDERED: PREGABALIN 100 MG CAP (LYRICA) As Ordered ONE ×3 (08:10→20:23)
[2020-01-21] MEDS ORDERED: hydroCHLOROthiazide 25 MG TAB As Ordered ONE (08:10)
[2020-01-21] MEDS ORDERED: rOPINIRole 1MG TAB As Ordered ONE ×3 (08:10→20:23)
[2020-01-21] MEDS ORDERED: ASPIRIN 81 MG ENTERIC TAB As Ordered ONE (08:10)
[2020-01-21] MEDS ORDERED: CALCITRIOL 0.25 MCG CAP (S0169) As Ordered ONE (08:10)
[2020-01-21] MEDS ORDERED: METOPROLOL SUCC (TopROL XL) 50MG **XL** TAB As Ordered ONE (08:11)
[2020-01-21] MEDS ORDERED: IPRATROPIUM 0.5MG/ALBUTEROL 2.5MG INH SOL UD 3ML (DUONEB) ONE (10:00)
[2020-01-21] MEDS ORDERED: BUDESONIDE 0.5 MG/2 ML INHALATION SUSPENSION ONE (10:00)
[2020-01-21] MEDS ORDERED: traZODone 50 MG TAB ONE (20:21)
[2020-01-21] MEDS ORDERED: DULoxetine 30 MG CAP (CYMBALTA) ONE (20:21)
[2020-01-21] MEDS ORDERED: DULoxetine 30 MG CAP (CYMBALTA) As Ordered ONE (20:22)
[2020-01-21] MEDS ORDERED: traZODone 50 MG TAB As Ordered ONE (20:24)
[2020-01-22] MEDS ORDERED: PERCOCET 5MG/325MG TAB ONE ×2 (06:27→11:41)
[2020-01-22] MEDS ORDERED: PERCOCET 5MG/325MG TAB As Ordered ONE ×2 (06:27→11:41)
[2020-01-22] MEDS ORDERED: ENOXAPARIN 40MG/0.4ML SYRINGE (J1650 PER 10MG) ONE (08:16)
[2020-01-22] MEDS ORDERED: HumaLOG INSULIN (NovoLOG) PER UNIT ONE ×3 (08:16→17:48)
[2020-01-22] MEDS ORDERED: POTASSIUM CHLORIDE 10 MEQ SR TABLET ONE (08:16)
[2020-01-22] MEDS ORDERED: hydroCHLOROthiazide 25 MG TAB ONE (08:16)
[2020-01-22] MEDS ORDERED: FUROSEMIDE 20 MG TAB ONE (08:16)
[2020-01-22] MEDS ORDERED: PREGABALIN 100 MG CAP (LYRICA) ONE ×3 (08:16→20:16)
[2020-01-22] MEDS ORDERED: DOCUSATE SODIUM 100 MG CAP ONE ×2 (08:16→20:16)
[2020-01-22] MEDS ORDERED: DOCUSATE SODIUM 100 MG CAP As Ordered ONE ×2 (08:16→20:16)
[2020-01-22] MEDS ORDERED: SERTRALINE HCL 50 MG TAB ONE (08:16)
[2020-01-22] MEDS ORDERED: PANTOPRAZOLE 40MG TAB (PROTONIX) ONE (08:16)
[2020-01-22] MEDS ORDERED: SERTRALINE HCL 50 MG TAB As Ordered ONE (08:16)
[2020-01-22] MEDS ORDERED: METOPROLOL SUCC (TopROL XL) 50MG **XL** TAB ONE (08:16)
[2020-01-22] MEDS ORDERED: predniSONE 20 MG TAB ONE ×2 (08:16→21:04)
[2020-01-22] MEDS ORDERED: rOPINIRole 1MG TAB ONE (08:16)
[2020-01-22] MEDS ORDERED: CALCITRIOL 0.25 MCG CAP (S0169) ONE (08:16)
[2020-01-22] MEDS ORDERED: ASPIRIN 81 MG ENTERIC TAB ONE (08:16)
[2020-01-22] MEDS ORDERED: PANTOPRAZOLE 40MG TAB (PROTONIX) As Ordered ONE (08:17)
[2020-01-22] MEDS ORDERED: POTASSIUM CHLORIDE 10 MEQ SR TABLET As Ordered ONE (08:17)
[2020-01-22] MEDS ORDERED: ENOXAPARIN 40MG/0.4ML SYRINGE (J1650 PER 10MG) As Ordered ONE (08:17)
[2020-01-22] MEDS ORDERED: predniSONE 20 MG TAB As Ordered ONE ×2 (08:17→21:04)
[2020-01-22] MEDS ORDERED: CALCITRIOL 0.25 MCG CAP (S0169) As Ordered ONE (08:18)
[2020-01-22] MEDS ORDERED: hydroCHLOROthiazide 25 MG TAB As Ordered ONE (08:18)
[2020-01-22] MEDS ORDERED: rOPINIRole 1MG TAB As Ordered ONE (08:18)
[2020-01-22] MEDS ORDERED: PREGABALIN 100 MG CAP (LYRICA) As Ordered ONE ×3 (08:18→20:16)
[2020-01-22] MEDS ORDERED: FUROSEMIDE 20 MG TAB As Ordered ONE (08:18)
[2020-01-22] MEDS ORDERED: METOPROLOL SUCC (TopROL XL) 50MG **XL** TAB As Ordered ONE (08:19)
[2020-01-22] MEDS ORDERED: ASPIRIN 81 MG ENTERIC TAB As Ordered ONE (08:19)
[2020-01-22] MEDS ORDERED: HumaLOG INSULIN (NovoLOG) PER UNIT As Ordered ONE ×3 (08:21→17:48)
[2020-01-22] MEDS ORDERED: IPRATROPIUM 0.5MG/ALBUTEROL 2.5MG INH SOL UD 3ML (DUONEB) ONE (10:00)
[2020-01-22] MEDS ORDERED: BUDESONIDE 0.5 MG/2 ML INHALATION SUSPENSION ONE (10:00)
[2020-01-22] MEDS ORDERED: BACTRIM 160MG/800MG DS TAB ONE (13:00)
[2020-01-22] MEDS ORDERED: DICYCLOMINE 10 MG CAP ONE (13:00)
[2020-01-22] MEDS ORDERED: DULoxetine 30 MG CAP (CYMBALTA) ONE (20:16)
[2020-01-22] MEDS ORDERED: DULoxetine 30 MG CAP (CYMBALTA) As Ordered ONE (20:16)
[2020-01-22] MEDS ORDERED: ACETAMINOPHEN TAB 650MG DOSE (2X325MG) ONE (20:53)
[2020-01-22] MEDS ORDERED: ACETAMINOPHEN TAB 650MG DOSE (2X325MG) As Ordered ONE (20:53)
[2020-01-22] MEDS ORDERED: MORPHINE 2 MG/ML 1ML VIAL (J2270) As Ordered ONE (21:18)
[2020-01-22] MEDS ORDERED: MORPHINE 2 MG/ML 1ML VIAL (J2270) ONE (21:18)
[2020-01-23] MEDS ORDERED: ACETAMINOPHEN TAB 650MG DOSE (2X325MG) As Ordered ONE (04:17)
[2020-01-23] MEDS ORDERED: ACETAMINOPHEN TAB 650MG DOSE (2X325MG) ONE (04:17)
[2020-01-23] MEDS ORDERED: ENOXAPARIN 100MG/1ML SYRINGE (J1650 PER 10MG) ONE (08:27)
[2020-01-23] MEDS ORDERED: SERTRALINE HCL 50 MG TAB ONE (08:27)
[2020-01-23] MEDS ORDERED: PANTOPRAZOLE 40MG TAB (PROTONIX) ONE (08:27)
[2020-01-23] MEDS ORDERED: FUROSEMIDE 40 MG TAB ONE (08:27)
[2020-01-23] MEDS ORDERED: ASPIRIN 81 MG ENTERIC TAB ONE (08:27)
[2020-01-23] MEDS ORDERED: hydroCHLOROthiazide 25 MG TAB ONE (08:27)
[2020-01-23] MEDS ORDERED: predniSONE 20 MG TAB ONE (08:27)
[2020-01-23] MEDS ORDERED: POTASSIUM CHLORIDE 10 MEQ SR TABLET ONE (08:27)
[2020-01-23] MEDS ORDERED: ENOXAPARIN 100MG/1ML SYRINGE (J1650 PER 10MG) As Ordered ONE (08:27)
[2020-01-23] MEDS ORDERED: METOPROLOL SUCC (TopROL XL) 50MG **XL** TAB ONE (08:27)
[2020-01-23] MEDS ORDERED: POTASSIUM CHLORIDE 10 MEQ SR TABLET As Ordered ONE (08:27)
[2020-01-23] MEDS ORDERED: DOCUSATE SODIUM 100 MG CAP As Ordered ONE ×2 (08:27→19:50)
[2020-01-23] MEDS ORDERED: PANTOPRAZOLE 40MG TAB (PROTONIX) As Ordered ONE (08:27)
[2020-01-23] MEDS ORDERED: DOCUSATE SODIUM 100 MG CAP ONE ×2 (08:27→19:50)
[2020-01-23] MEDS ORDERED: PREGABALIN 100 MG CAP (LYRICA) ONE ×3 (08:27→19:50)
[2020-01-23] MEDS ORDERED: PREGABALIN 100 MG CAP (LYRICA) As Ordered ONE ×3 (08:28→19:50)
[2020-01-23] MEDS ORDERED: FUROSEMIDE 40 MG TAB As Ordered ONE (08:29)
[2020-01-23] MEDS ORDERED: predniSONE 20 MG TAB As Ordered ONE (08:29)
[2020-01-23] MEDS ORDERED: SERTRALINE HCL 50 MG TAB As Ordered ONE (08:29)
[2020-01-23] MEDS ORDERED: METOPROLOL SUCC (TopROL XL) 50MG **XL** TAB As Ordered ONE (08:29)
[2020-01-23] MEDS ORDERED: ASPIRIN 81 MG ENTERIC TAB As Ordered ONE (08:29)
[2020-01-23] MEDS ORDERED: hydroCHLOROthiazide 25 MG TAB As Ordered ONE (08:29)
[2020-01-23] MEDS ORDERED: VARIBAR PUDDING 40% w/v 230ML TUBE As Ordered ONE (08:44)
[2020-01-23] MEDS ORDERED: E-Z-PAQUE 96% w/w SUSP 176GM BTL As Ordered ONE (08:44)
[2020-01-23] MEDS ORDERED: VARIBAR NECTAR 40% w/v 240ML SUSP BTL As Ordered ONE (08:44)
[2020-01-23] MEDS ORDERED: IPRATROPIUM 0.5MG/ALBUTEROL 2.5MG INH SOL UD 3ML (DUONEB) ONE (10:00)
[2020-01-23] MEDS ORDERED: BUDESONIDE 0.5 MG/2 ML INHALATION SUSPENSION ONE (10:00)
[2020-01-23] MEDS ORDERED: HumaLOG INSULIN (NovoLOG) PER UNIT As Ordered ONE ×2 (12:14→17:26)
[2020-01-23] MEDS ORDERED: HumaLOG INSULIN (NovoLOG) PER UNIT ONE ×2 (12:14→17:26)
[2020-01-23] MEDS ORDERED: DULoxetine 30 MG CAP (CYMBALTA) As Ordered ONE (19:50)
[2020-01-23] MEDS ORDERED: DULoxetine 30 MG CAP (CYMBALTA) ONE (19:50)
[2020-01-23] MEDS ORDERED: predniSONE 10 MG TAB ONE (19:50)
[2020-01-23] MEDS ORDERED: predniSONE 10 MG TAB As Ordered ONE (19:51)
[2020-01-24] MEDS ORDERED: RAMELTEON 8 MG TAB (ROZEREM) ONE ×2 (01:44→20:44)
[2020-01-24] MEDS ORDERED: RAMELTEON 8 MG TAB (ROZEREM) As Ordered ONE (01:44)
[2020-01-24] MEDS ORDERED: HumaLOG INSULIN (NovoLOG) PER UNIT ONE ×3 (07:57→17:24)
[2020-01-24] MEDS ORDERED: HumaLOG INSULIN (NovoLOG) PER UNIT As Ordered ONE (07:57)
[2020-01-24] MEDS ORDERED: hydroCHLOROthiazide 25 MG TAB ONE (08:01)
[2020-01-24] MEDS ORDERED: DOCUSATE SODIUM 100 MG CAP As Ordered ONE (08:01)
[2020-01-24] MEDS ORDERED: ASPIRIN 81 MG ENTERIC TAB ONE (08:01)
[2020-01-24] MEDS ORDERED: ENOXAPARIN 40MG/0.4ML SYRINGE (J1650 PER 10MG) ONE (08:01)
[2020-01-24] MEDS ORDERED: POTASSIUM CHLORIDE 10 MEQ SR TABLET ONE (08:01)
[2020-01-24] MEDS ORDERED: predniSONE 10 MG TAB ONE ×3 (08:01→20:52)
[2020-01-24] MEDS ORDERED: POTASSIUM CHLORIDE 10 MEQ SR TABLET As Ordered ONE (08:01)
[2020-01-24] MEDS ORDERED: PANTOPRAZOLE 40MG TAB (PROTONIX) ONE (08:01)
[2020-01-24] MEDS ORDERED: predniSONE 20 MG TAB ONE (08:01)
[2020-01-24] MEDS ORDERED: PREGABALIN 100 MG CAP (LYRICA) ONE ×3 (08:01→20:34)
[2020-01-24] MEDS ORDERED: DOCUSATE SODIUM 100 MG CAP ONE ×2 (08:01→20:34)
[2020-01-24] MEDS ORDERED: ENOXAPARIN 40MG/0.4ML SYRINGE (J1650 PER 10MG) As Ordered ONE (08:02)
[2020-01-24] MEDS ORDERED: PREGABALIN 100 MG CAP (LYRICA) As Ordered ONE (08:02)
[2020-01-24] MEDS ORDERED: PANTOPRAZOLE 40MG TAB (PROTONIX) As Ordered ONE (08:02)
[2020-01-24] MEDS ORDERED: ASPIRIN 81 MG ENTERIC TAB As Ordered ONE (08:03)
[2020-01-24] MEDS ORDERED: predniSONE 20 MG TAB As Ordered ONE (08:03)
[2020-01-24] MEDS ORDERED: predniSONE 10 MG TAB As Ordered ONE (08:03)
[2020-01-24] MEDS ORDERED: hydroCHLOROthiazide 25 MG TAB As Ordered ONE (08:03)
[2020-01-24] MEDS ORDERED: IPRATROPIUM 0.5MG/ALBUTEROL 2.5MG INH SOL UD 3ML (DUONEB) ONE (10:00)
[2020-01-24] MEDS ORDERED: BUDESONIDE 0.5 MG/2 ML INHALATION SUSPENSION ONE (10:00)
[2020-01-24] MEDS ORDERED: DULoxetine 30 MG CAP (CYMBALTA) ONE (20:34)
[2020-01-24] MEDS ORDERED: traZODone 50 MG TAB ONE (20:34)
[2020-01-24] MEDS ORDERED: ACETAMINOPHEN TAB 650MG DOSE (2X325MG) ONE (20:34)
[2020-01-25] MEDS ORDERED: METOPROLOL SUCC (TopROL XL) 100MG *XL* TAB ONE (07:55)
[2020-01-25] MEDS ORDERED: hydroCHLOROthiazide 25 MG TAB ONE (07:55)
[2020-01-25] MEDS ORDERED: DOCUSATE SODIUM 100 MG CAP ONE ×2 (07:55→17:58)
[2020-01-25] MEDS ORDERED: ASPIRIN 81 MG ENTERIC TAB ONE (07:55)
[2020-01-25] MEDS ORDERED: PANTOPRAZOLE 40MG TAB (PROTONIX) ONE (07:55)
[2020-01-25] MEDS ORDERED: PREGABALIN 100 MG CAP (LYRICA) ONE ×3 (07:55→17:58)
[2020-01-25] MEDS ORDERED: ENOXAPARIN 40MG/0.4ML SYRINGE (J1650 PER 10MG) ONE (07:55)
[2020-01-25] MEDS ORDERED: SERTRALINE HCL 50 MG TAB ONE (07:55)
[2020-01-25] MEDS ORDERED: HumaLOG INSULIN (NovoLOG) PER UNIT ONE ×3 (08:00→16:32)
[2020-01-25] MEDS ORDERED: POTASSIUM CHLORIDE 10 MEQ SR TABLET ONE (08:01)
[2020-01-25] MEDS ORDERED: predniSONE 10 MG TAB ONE (08:05)
[2020-01-25] MEDS ORDERED: IPRATROPIUM 0.5MG/ALBUTEROL 2.5MG INH SOL UD 3ML (DUONEB) ONE (10:00)
[2020-01-25] MEDS ORDERED: BUDESONIDE 0.5 MG/2 ML INHALATION SUSPENSION ONE (10:00)
[2020-01-25] MEDS ORDERED: FUROSEMIDE 20 MG TAB ONE (11:10)
[2020-01-25] MEDS ORDERED: predniSONE 20 MG TAB ONE (17:58)
[2020-01-25] MEDS ORDERED: DULoxetine 30 MG CAP (CYMBALTA) ONE (17:58)
[2020-01-25] MEDS ORDERED: RAMELTEON 8 MG TAB (ROZEREM) ONE (18:15)
[2020-01-25] MEDS ORDERED: traZODone 50 MG TAB ONE (18:15)
[2020-02-15 22:31] LABS: BASO # 0.1 10^3/uL (0.0-0.2); BASO % 0.6 % (0.0-1.0); EOS # 0.3 10^3/uL (0.0-0.5); EOS % 3.5 % (0.0-3.0); HEMATOCRIT 46.3 % (42.0-52.0); HEMOGLOBIN 15.1 g/dl (13.5-17.5); LYMPH # 3.3 10^3/uL (1.5-5.0); LYMPH % 41.4 % (24.0-44.0); MEAN CORPUSCULAR HEMOGLOBIN 28.3 pg (27.0-33.0); MEAN CORPUSCULAR HGB CONC 32.6 g/dl (32.0-36.5); MEAN CORPUSCULAR VOLUME 86.9 fl (80.0-96.0); MONO # 0.6 10^3/uL (0.0-0.8); MONO % 7.6 % (0.0-5.0); NEUTROPHILS # 3.7 10^3/uL (1.5-8.5); NEUTROPHILS % 46.6 % (36.0-66.0); PLATELET COUNT, AUTOMATED 247 10^3/uL (150-450); RED BLOOD COUNT 5.33 10^6/uL (4.30-6.10); WHITE BLOOD COUNT 7.9 10^3/uL (4.0-10.0)
[2020-02-15 22:34] LABS: PARTIAL THROMBOPLASTIN TIME 25.8 SECONDS (25.0-38.4); PROTHROMBIN TIME 13.4 SECONDS (11.8-14.0)
[2020-02-27 10:24] LABS: ALBUMIN 4.1 GM/DL (3.2-5.2); ALT/SGPT 69 U/L (12-78); BILIRUBIN,DIRECT 0.1 MG/DL (0.0-0.2); BILIRUBIN,TOTAL 0.8 MG/DL (0.2-1.0); BLOOD UREA NITROGEN 19 MG/DL (7-18); CALCIUM LEVEL 9.1 MG/DL (8.5-10.1); CARBON DIOXIDE LEVEL 30 MEQ/L (21-32); CHLORIDE LEVEL 108 MEQ/L (98-107); CK-MB VALUE MASS < 1.0 NG/ML (<3.6); CPK CREATINE PHOSPHOKINASE 99 U/L (39-308); CREATININE FOR GFR 1.01 MG/DL (0.70-1.30); GLOMERULAR FILTRATION RATE > 60.0 (>60); GLUCOSE, FASTING 98 MG/DL (70-100); MB/CK RELATIVE INDEX 1.01 (< OR =4); NT-PRO BNP < 5 PG/ML (<125); POTASSIUM SERUM 3.6 MEQ/L (3.5-5.1); SODIUM LEVEL 142 MEQ/L (136-145); TOTAL PROTEIN 7.3 GM/DL (6.4-8.2); TROPONIN I < 0.02 NG/ML (< 0.10)
--- NOTE | 2020-03-04 08:51 | REP ---
COOKIE SWALLOW: The procedure was performed under the direct supervision of Dr. Fitzpatrick. The procedure was performed with Eileen Bourne from Speech Pathology present. PROCEDURE: 5 cc Aliquots of thin, nectar, pudding, mixed fruit, soft, solid and honey consistency barium was administered. There is no evidence of penetration or aspiration. A detailed report of this examination will be provided by Speech Pathology. 1.3 minutes of fluoroscopy was utilized for this procedure. LUCAS
--- NOTE | 2020-03-04 08:53 | REP ---
PORTABLE CHEST X-RAY: HISTORY: Dyspnea and shortness of breath. COMPARISON: 01/21/20 FINDINGS: Single view of the chest is performed. Left basilar parenchymal opacity appears essentially unchanged. There is no significant infiltrate on the right. Prominent cardiac silhouette is unchanged. Mediastinal silhouette is unchanged. IMPRESSION: Essentially stable examination. MTDD
[2020-03-04 22:07] LABS: HEMATOCRIT 38.8 % (42.0-52.0); HEMOGLOBIN 12.8 g/dl (13.5-17.5); MEAN CORPUSCULAR HEMOGLOBIN 28.4 pg (27.0-33.0); MEAN CORPUSCULAR VOLUME 86.2 fl (80.0-96.0); PLATELET COUNT, AUTOMATED 258 10^3/uL (150-450); WHITE BLOOD COUNT 14.7 10^3/uL (4.0-10.0)
--- NOTE | 2020-03-05 07:17 | CCN ---
DATE: 01/16/2020 START TIME: 909 STOP TIME: 999 SUBJECTIVE: I was asked to attend Jhon Pate on transfer to the intensive care unit for worsening oxygenation levels. Patient has been examined and chart reviewed. I have spoken at length with Dr. Pradhan, Dr. Galindo, and Dr. Best regarding him this morning. I have reviewed all of his available records. The computer system here at [facility] is still inoperative. In essence, this is a 44-year-old gentleman who is a lifetime nonsmoker. He has had progressive issues over the last several years felt to be predominantly on a neurogenic/neurologic front. He presumptively had carried a diagnosis of chronic inflammatory demyelinating polyneuropathy (CIPD), although recently evaluation neurology feels that this is in question. He has been essentially steroid- dependent since October 2018. He has difficulties with progressive weakness and shortness of breath. He was even in a rehab center after what was felt to be an aspiration pneumonia. He presents to the hospital complaining of increasing shortness of breath and chest discomfort. CT scan done yesterday as interpreted as a left lower lobe infiltrate. I personally reviewed that scan and I do not see an obvious infiltrate. He has dependent subsegmental compressive atelectasis mainly on the basis of body habitus and very poor inspiratory effort. I see no focal infiltrates. No nodules. Today he had progressive oxygenation needs. Blood gas done on 15 L cannula showed a pH of 7.345, pCO2 of 38.7, and a PaO2 of 75.3. He was transferred to the intensive care unit for Vapotherm and/or higher flow cannula. OBJECTIVE: GENERAL: He is awake, alert, and appropriate. He is fairly comfortable except for his continued what he describes as a chest tightness. VITAL SIGNS: Heart rate between 120 and 130 with a sinus mechanism. Respiratory rate 18-20 without accessory muscle use. Temperature here on arrival of 98.4. Blood pressure in the 130 systolic. HEENT: Shows him to have a mild exophthalmos/proptosis. Pupils do react. Sclerae clear. Trachea is in the midline. It was at least class 3. CHEST: Fairly clear anteriorly. There is poor inspiratory effort. There are some faint crackles with dependent egophony bilaterally that does improve somewhat with deep inspiration. There is no wheeze, rhonchus, or other adventitious breath sounds identified. CARDIAC: Distant and tachycardic, but regular. No convincing murmur. Peripheral pulses are diminished, but palpable. There may be trace edema. ABDOMEN: Obese, soft, and nontender with normoactive bowel sounds. No convincing hepatosplenomegaly or masses. EXTREMITIES: Show no obvious other cyanosis or clubbing. NEUROLOGIC: He is awake, alert, and appropriate. LABORATORY DATA: Most recent white blood cell count 8.8, hemoglobin 14.7, platelet count 290,000. No differential done today, but yesterday showed no left shift. Sodium 141, K 4.1, chloride 105, CO2 of 29, BUN of 24, and creatinine of 1.36. MOST PRESSING PROBLEMS REQUIRING MY PRESENCE AT THE BEDSIDE: Hypoxemia both acute on chronic, progressive. Mild metabolic acidosis. Question of progressive neurologic neurodegenerative issue. Inappropriate tachycardia. Polypharmacy. RECOMMENDATIONS: After review of his medication list, I think that the baclofen may be counterproductive in view of his issues and I will discontinue it. I spoke with Dr. Best as I have ordered a stat echo. Apparently, he had a normal cardiac workup in 2017, including a cath and a stress echo, but given his progressive difficulties and his witnessed delayed oxygen saturation with any activity and with his what is felt to be inappropriate tachycardia, we will get an echo today to rule out significant cardiac dysfunction, cardiomyopathy, or even question of underlying shunt. At this point, we will proceed as outlined above. The exact etiology for his progressive decline over the last several years continues to be in question. Certainly a concomitant steroid myopathy is always a possibility, but this has been entertained by multiple physicians as well. He said he has never been able to get below 20 mg of prednisone. He is on PCP prophylaxis in the form of Bactrim. We will proceed as outlined above. At this point, we await the outcome of the above studies. I left the bedside at 10 o'clock with 58 minutes of critical care time at the bedside not including procedures. LUCAS
[2020-03-06 14:25] LABS: HEMATOCRIT 39.9 % (42.0-52.0); HEMOGLOBIN 13.1 g/dl (13.5-17.5); MEAN CORPUSCULAR HEMOGLOBIN 28.5 pg (27.0-33.0); MEAN CORPUSCULAR HGB CONC 32.8 g/dl (32.0-36.5); MEAN CORPUSCULAR VOLUME 86.7 fl (80.0-96.0); PLATELET COUNT, AUTOMATED 263 10^3/uL (150-450)
[2020-03-06 18:21] LABS: HEMOGLOBIN 13.8 g/dl (13.5-17.5); MEAN CORPUSCULAR HGB CONC 32.9 g/dl (32.0-36.5); MEAN CORPUSCULAR VOLUME 85.2 fl (80.0-96.0); PLATELET COUNT, AUTOMATED 263 10^3/uL (150-450); RED BLOOD COUNT 4.93 10^6/uL (4.30-6.10); WHITE BLOOD COUNT 13.1 10^3/uL (4.0-10.0)
--- NOTE | 2020-03-10 12:34 | ECGEPIP ---
SINUS RHYTHM WITH PVCS RBBB PRIOR INFERIOR UT PRWP SEE SCANNED DOWNTIME REPORT MTDD
[2020-03-11 08:18] LABS: HEMATOCRIT 46.6 % (42.0-52.0); HEMOGLOBIN 15.4 g/dl (13.5-17.5); MEAN CORPUSCULAR HEMOGLOBIN 28.2 pg (27.0-33.0); MEAN CORPUSCULAR VOLUME 85.3 fl (80.0-96.0); PLATELET COUNT, AUTOMATED 271 10^3/uL (150-450); RED BLOOD COUNT 5.46 10^6/uL (4.30-6.10); WHITE BLOOD COUNT 12.5 10^3/uL (4.0-10.0)
[2020-03-12 07:18] LABS: HEMATOCRIT 45.4 % (42.0-52.0); HEMOGLOBIN 15.1 g/dl (13.5-17.5); MEAN CORPUSCULAR HEMOGLOBIN 28.3 pg (27.0-33.0); MEAN CORPUSCULAR HGB CONC 33.3 g/dl (32.0-36.5); PLATELET COUNT, AUTOMATED 294 10^3/uL (150-450); RED BLOOD COUNT 5.34 10^6/uL (4.30-6.10)
[2020-03-14 08:32] LABS: BASO # 0.1 10^3/uL (0.0-0.2); BASO % 0.7 % (0.0-1.0); EOS # 0.3 10^3/uL (0.0-0.5); EOS % 4.2 % (0.0-3.0); HEMATOCRIT 44.7 % (42.0-52.0); HEMOGLOBIN 14.2 g/dl (13.5-17.5); LYMPH # 3.1 10^3/uL (1.5-5.0); LYMPH % 45.2 % (24.0-44.0); MEAN CORPUSCULAR HGB CONC 31.8 g/dl (32.0-36.5); MONO # 0.6 10^3/uL (0.0-0.8); MONO % 8.2 % (0.0-5.0); NEUTROPHILS # 2.9 10^3/uL (1.5-8.5); NEUTROPHILS % 41.6 % (36.0-66.0); PLATELET COUNT, AUTOMATED 246 10^3/uL (150-450); RED BLOOD COUNT 5.08 10^6/uL (4.30-6.10); WHITE BLOOD COUNT 6.9 10^3/uL (4.0-10.0)
[2020-03-14 11:06] LABS: HEMATOCRIT 44.8 % (42.0-52.0); HEMOGLOBIN 14.7 g/dl (13.5-17.5); MEAN CORPUSCULAR HEMOGLOBIN 28.3 pg (27.0-33.0); MEAN CORPUSCULAR HGB CONC 32.8 g/dl (32.0-36.5); MEAN CORPUSCULAR VOLUME 86.3 fl (80.0-96.0); PLATELET COUNT, AUTOMATED 290 10^3/uL (150-450); RED BLOOD COUNT 5.19 10^6/uL (4.30-6.10); WHITE BLOOD COUNT 8.4 10^3/uL (4.0-10.0)
[2020-03-15 01:00] LABS: HEMATOCRIT 44.7 % (42.0-52.0); HEMOGLOBIN 14.7 g/dl (13.5-17.5); MEAN CORPUSCULAR HEMOGLOBIN 28.1 pg (27.0-33.0); MEAN CORPUSCULAR HGB CONC 32.9 g/dl (32.0-36.5); MEAN CORPUSCULAR VOLUME 85.5 fl (80.0-96.0); PLATELET COUNT, AUTOMATED 269 10^3/uL (150-450); RED BLOOD COUNT 5.23 10^6/uL (4.30-6.10); WHITE BLOOD COUNT 14.6 10^3/uL (4.0-10.0)
[2020-03-15 16:42] LABS: MEAN CORPUSCULAR HGB CONC 32.7 g/dl (32.0-36.5); MEAN CORPUSCULAR VOLUME 85.7 fl (80.0-96.0); PLATELET COUNT, AUTOMATED 328 10^3/uL (150-450); RED BLOOD COUNT 5.72 10^6/uL (4.30-6.10); WHITE BLOOD COUNT 16.5 10^3/uL (4.0-10.0)
[2020-03-22 07:16] LABS: HEMATOCRIT 45.7 % (42.0-52.0); HEMOGLOBIN 15.3 g/dl (13.5-17.5); MEAN CORPUSCULAR HEMOGLOBIN 28.5 pg (27.0-33.0); MEAN CORPUSCULAR HGB CONC 33.5 g/dl (32.0-36.5); MEAN CORPUSCULAR VOLUME 85.3 fl (80.0-96.0); PLATELET COUNT, AUTOMATED 306 10^3/uL (150-450); RED BLOOD COUNT 5.36 10^6/uL (4.30-6.10); WHITE BLOOD COUNT 15.6 10^3/uL (4.0-10.0)
[2020-03-22 18:14] LABS: HEMATOCRIT 43.1 % (42.0-52.0); HEMOGLOBIN 13.8 g/dl (13.5-17.5); MEAN CORPUSCULAR VOLUME 87.6 fl (80.0-96.0); PLATELET COUNT, AUTOMATED 268 10^3/uL (150-450); RED BLOOD COUNT 4.92 10^6/uL (4.30-6.10); WHITE BLOOD COUNT 14.2 10^3/uL (4.0-10.0)
[2020-04-06 09:46] LABS: ALBUMIN 3.6 GM/DL (3.2-5.2); ALT/SGPT 60 U/L (12-78); BILIRUBIN,DIRECT 0.2 MG/DL (0.0-0.2); BILIRUBIN,TOTAL 0.6 MG/DL (0.2-1.0); BLOOD UREA NITROGEN 21 MG/DL (7-18); CALCIUM LEVEL 8.6 MG/DL (8.5-10.1); CARBON DIOXIDE LEVEL 29 MEQ/L (21-32); CHLORIDE LEVEL 106 MEQ/L (98-107); CREATININE FOR GFR 1.15 MG/DL (0.70-1.30); GLOMERULAR FILTRATION RATE > 60.0 (>60); GLUCOSE, FASTING 173 MG/DL (70-100); POTASSIUM SERUM 4.3 MEQ/L (3.5-5.1); SODIUM LEVEL 140 MEQ/L (136-145); TOTAL PROTEIN 6.6 GM/DL (6.4-8.2)
[2020-04-06 17:16] LABS: BLOOD UREA NITROGEN 24 MG/DL (7-18); CALCIUM LEVEL 9.4 MG/DL (8.5-10.1); CARBON DIOXIDE LEVEL 29 MEQ/L (21-32); CHLORIDE LEVEL 105 MEQ/L (98-107); CREATININE FOR GFR 1.36 MG/DL (0.70-1.30); GLOMERULAR FILTRATION RATE > 60.0 (>60); GLUCOSE, FASTING 179 MG/DL (70-100); POTASSIUM SERUM 4.1 MEQ/L (3.5-5.1); SODIUM LEVEL 141 MEQ/L (136-145)
[2020-04-06 17:46] LABS: ABG MODE OF VENT R/A; ABG PARTIAL PRESSURE CO2 38.7 mmHg (35.0-45.0); ABG pH (ARTERIAL) 7.345 UNITS (7.350-7.450)
[2020-04-06 17:47] LABS: ABG BASE EXCESS -4.5 (-2.0-2.0); ABG HCO3 20.6 MEQ/L (22.0-26.0); ABG O2 SATURATION 94.6 % (95.0-99.0); ABG PARTIAL PRESSURE O2 75.3 mmHg (75.0-100.0); ABG STANDARD HCO3 20.7 MEQ/L (22.0-26.0); ABG TOTAL CO2 21.8 MEQ/L (22.0-29.0)
[2020-04-08 15:44] LABS: BLOOD UREA NITROGEN 21 MG/DL (7-18); CALCIUM LEVEL 8.6 MG/DL (8.5-10.1); CARBON DIOXIDE LEVEL 32 mmol/L (20-29); CHLORIDE LEVEL 105 MEQ/L (98-107); CREATININE FOR GFR 1.15 MG/DL (0.70-1.30); GLOMERULAR FILTRATION RATE > 60.0 (>60); GLUCOSE, FASTING 99 MG/DL (70-100); PHOSPHORUS LEVEL 4.5 MG/DL (2.5-4.9); POTASSIUM SERUM 3.6 MEQ/L (3.5-5.1); SODIUM LEVEL 139 MEQ/L (136-145)
[2020-04-08 15:45] LABS: CHOLESTEROL LEVEL 224 MG/DL (<200); CHOLESTEROL RISK RATIO 7.724 (<5); HDL CHOLESTEROL 29 MG/DL (>40); LDL CHOLESTEROL 130.6 MG/DL (<100); NON-HDL-C 195 MG/DL; TOTAL 25(OH) VITAMIN D 29.5 NG/ML (30.0-100.0); TRIGLYCERIDES LEVEL 322 MG/DL (<150); VITAMIN B12 LEVEL 353 PG/ML (247-911)
[2020-04-08 15:57] LABS: HEMOGLOBIN A1c 6.3 %
[2020-04-08 16:01] LABS: CK-MB VALUE MASS < 1.0 NG/ML (<3.6); CPK CREATINE PHOSPHOKINASE 82 U/L (39-308); MB/CK RELATIVE INDEX 1.21 (< OR =4); TROPONIN I < 0.02 NG/ML (< 0.10)
[2020-04-08 16:05] LABS: CK-MB VALUE MASS < 1.0 NG/ML (<3.6); CPK CREATINE PHOSPHOKINASE 98 U/L (39-308); MB/CK RELATIVE INDEX 1.02 (< OR =4); TROPONIN I < 0.02 NG/ML (< 0.10)
[2020-04-13 19:35] LABS: ALBUMIN 3.5 GM/DL (3.2-5.2); ALT/SGPT 56 U/L (12-78); BILIRUBIN,DIRECT 0.1 MG/DL (0.0-0.2); BILIRUBIN,TOTAL 0.6 MG/DL (0.2-1.0); BLOOD UREA NITROGEN 20 MG/DL (7-18); CALCIUM LEVEL 8.6 MG/DL (8.5-10.1); CARBON DIOXIDE LEVEL 28 MEQ/L (21-32); CHLORIDE LEVEL 104 MEQ/L (98-107); CREATININE FOR GFR 1.12 MG/DL (0.70-1.30); GLOMERULAR FILTRATION RATE > 60.0 (>60); GLUCOSE, FASTING 210 MG/DL (70-100); NT-PRO BNP 127 PG/ML (<125); SODIUM LEVEL 139 MEQ/L (136-145); TOTAL PROTEIN 6.4 GM/DL (6.4-8.2)
[2020-04-13 23:13] LABS: BLOOD UREA NITROGEN 25 MG/DL (7-18); CALCIUM LEVEL 8.8 MG/DL (8.5-10.1); CARBON DIOXIDE LEVEL 30 MEQ/L (21-32); CHLORIDE LEVEL 101 MEQ/L (98-107); CREATININE FOR GFR 1.14 MG/DL (0.70-1.30); GLOMERULAR FILTRATION RATE > 60.0 (>60); GLUCOSE, FASTING 175 MG/DL (70-100); NT-PRO BNP 65 PG/ML (<125); POTASSIUM SERUM 3.9 MEQ/L (3.5-5.1); SODIUM LEVEL 138 MEQ/L (136-145)
[2020-04-14 04:11] LABS: BLOOD UREA NITROGEN 27 MG/DL (7-18); CALCIUM LEVEL 8.9 MG/DL (8.5-10.1); CARBON DIOXIDE LEVEL 30 MEQ/L (21-32); CHLORIDE LEVEL 102 MEQ/L (98-107); CREATININE FOR GFR 1.18 MG/DL (0.70-1.30); GLOMERULAR FILTRATION RATE > 60.0 (>60); GLUCOSE, FASTING 160 MG/DL (70-100); POTASSIUM SERUM 3.9 MEQ/L (3.5-5.1); SODIUM LEVEL 139 MEQ/L (136-145)
[2020-04-14 13:28] LABS: BLOOD UREA NITROGEN 27 MG/DL (7-18); CARBON DIOXIDE LEVEL 30 MEQ/L (21-32); CHLORIDE LEVEL 98 MEQ/L (98-107); CREATININE FOR GFR 1.16 MG/DL (0.70-1.30); GLOMERULAR FILTRATION RATE > 60.0 (>60); GLUCOSE, FASTING 146 MG/DL (70-100); MAGNESIUM LEVEL 2.5 MG/DL (1.8-2.4); SODIUM LEVEL 137 MEQ/L (136-145)
[2020-04-15 08:58] LABS: BLOOD UREA NITROGEN 35 MG/DL (7-18); CALCIUM LEVEL 8.7 MG/DL (8.5-10.1); CARBON DIOXIDE LEVEL 30 MEQ/L (21-32); CHLORIDE LEVEL 98 MEQ/L (98-107); CREATININE FOR GFR 1.09 MG/DL (0.70-1.30); GLOMERULAR FILTRATION RATE > 60.0 (>60); GLUCOSE, FASTING 143 MG/DL (70-100); SODIUM LEVEL 135 MEQ/L (136-145)
[2020-04-15 09:09] LABS: ABG MODE OF VENT RA; ABG pH (ARTERIAL) 7.435 UNITS (7.350-7.450)
[2020-04-15 09:10] LABS: ABG BASE EXCESS 2.7 (-2.0-2.0); ABG HCO3 27.2 MEQ/L (22.0-26.0); ABG O2 SATURATION 87.4 % (95.0-99.0); ABG PARTIAL PRESSURE CO2 41.4 mmHg (35.0-45.0); ABG PARTIAL PRESSURE O2 53.5 mmHg (75.0-100.0); ABG STANDARD HCO3 26.5 MEQ/L (22.0-26.0); ABG TOTAL CO2 28.4 MEQ/L (22.0-29.0)
[2020-04-15 16:22] LABS: BLOOD UREA NITROGEN 34 MG/DL (7-18); GLUCOSE, FASTING 140 MG/DL (70-100)
[2020-04-15 16:23] LABS: CALCIUM LEVEL 9.2 MG/DL (8.5-10.1); CARBON DIOXIDE LEVEL 31 mmol/L (20-29); CHLORIDE LEVEL 97 MEQ/L (98-107); CREATININE FOR GFR 1.31 MG/DL (0.70-1.30); GLOMERULAR FILTRATION RATE > 60.0 (>60); SODIUM LEVEL 138 MEQ/L (136-145)
[2020-04-19 02:50] LABS: BLOOD UREA NITROGEN 34 MG/DL (7-18); CALCIUM LEVEL 8.7 MG/DL (8.5-10.1); CARBON DIOXIDE LEVEL 31 MEQ/L (21-32); CHLORIDE LEVEL 99 MEQ/L (98-107); GLOMERULAR FILTRATION RATE > 60.0 (>60); GLUCOSE, FASTING 162 MG/DL (70-100); POTASSIUM SERUM 3.9 MEQ/L (3.5-5.1); SODIUM LEVEL 138 MEQ/L (136-145)
[2020-04-19 10:34] LABS: BLOOD UREA NITROGEN 34 MG/DL (7-18); CALCIUM LEVEL 8.7 MG/DL (8.5-10.1); CARBON DIOXIDE LEVEL 30 MEQ/L (21-32); CHLORIDE LEVEL 102 MEQ/L (98-107); CREATININE FOR GFR 1.16 MG/DL (0.70-1.30); GLOMERULAR FILTRATION RATE > 60.0 (>60); GLUCOSE, FASTING 159 MG/DL (70-100); POTASSIUM SERUM 3.7 MEQ/L (3.5-5.1); SODIUM LEVEL 139 MEQ/L (136-145)
== END 2020-01-25 18:30 | disposition home or self-care (01) | DRG 133 ==
LOC: M ED 15:40 → M MS5PR 23:00
PROVIDERS: ADMIT Internal Medicine; ATTEND Internal Medicine
DX: J96.21 Acute and chronic respiratory failure with hypoxia (principal); E87.2 Acidosis; E11.40 Type 2 diabetes mellitus with diabetic neuropathy, unspecified; Z99.81 Dependence on supplemental oxygen; Z79.899 Other long term (current) drug therapy; I10 Essential (primary) hypertension; F32.9 Major depressive disorder, single episode, unspecified; Z79.52 Long term (current) use of systemic steroids; J98.11 Atelectasis; G47.33 Obstructive sleep apnea (adult) (pediatric); K59.00 Constipation, unspecified; Z91.19 Patient's noncompliance with other medical treatment and regimen; K21.9 Gastro-esophageal reflux disease without esophagitis; K57.30 Diverticulosis of large intestine without perforation or abscess without bleeding; Z79.82 Long term (current) use of aspirin; Z96.659 Presence of unspecified artificial knee joint; J98.4 Other disorders of lung

== ENCOUNTER → 2020-01-25 | Outpatient (CLI) | payer OTHER, BC ==
[~2020-01-25] MED LIST changes: +ACET500C10 PO; +CYCL5TAB PO; +DULO1CAP6 PO; +FLUC150T PO; +IBUP-1764 PO; -IPRATROPIUM 0.5MG/ALBUTEROL 2.5MG INH SOL UD 3ML (DUONEB) ONE; +KETO2CR EXT; +POTA10TA17 PO; +PREG100CA PO; +VALS1TAB67
--- NOTE | 2020-02-21 13:56 | SLEEPCENT ---
DATE: 01/25/2020 ORDERED BY: Dr. Galindo Nocturnal polysomnography was performed for evaluation of sleep physiology in this patient with excessive somnolence and nonrestorative sleep, who has comorbidities of obesity and significant respiratory disease. There was 8 hours and 19 minutes of data reviewed. There were 368.5 minutes of sleep identified. Sleep latency was prolonged at 38 minutes. REM latency was prolonged at 115.5 minutes. Sleep architecture was good with three REM cycles. There was a period of wake after 3 a.m., resulting in reduced sleep efficiency of 75.4%. The electrocardiogram showed a sinus rhythm with an average heart rate of 8 beats per minute. EEG showed normal waveforms for wake and sleep. There were 36 respiratory events identified of 10 seconds in duration or greater for an apnea-hypopnea index of 5.9. The events were obstructive, not exclusive to sleep stage nor body posture. Snoring was also noted during the study. Arousals from respiratory events occurred two times per hour, and oxygen desaturations were seen well into the 80s. Some limb activity was also appreciated, but there were few limb arousals. IMPRESSION: Obstructive sleep apnea syndrome (G47.33). Apnea-hypopnea index 5.9. RECOMMENDATION: Given the patient's symptoms and significant oxygen desaturations, referral back to the sleep disorder center for pressure therapy should be considered. In the interim, alcohol and sedative avoidance should be practiced and caution exercised during the operation of motor vehicles. MTDD
== END ==
LOC: M SLEEP 20:00
PROVIDERS: ATTEND Internal Medicine Pulmonary Disease
DX: G47.33 Obstructive sleep apnea (adult) (pediatric) (principal)

== ENCOUNTER → 2020-02-11 | Outpatient (CLI) | payer BC, OTHER ==
--- NOTE | 2020-02-21 09:24 | SLEEPCENT ---
DATE: 02/11/2020 ORDERED BY: Son Galindo MD Nocturnal polysomnography was performed for the titration of pressure therapy in this patient with obstructive sleep apnea syndrome. Apnea-hypopnea index 5.9. For testing, the patient was fit a ResMed Airfit F30 full face mask of medium size, 5 cm of water pressure were applied and the circuit and lights were extinguished. There was 7 hours and 5 minutes of data were reviewed. There were 390.5 minutes of sleep identified. The sleep latency was mildly prolonged at 14.5 minutes. REM latency was more prolonged at 181.5 minutes. Sleep architecture improved late in the study on optimal pressure therapy and there were two REM cycles noted. Overall sleep efficiency was 94%. The electrocardiogram showed a sinus rhythm with an average heart rate of 80 beats per minute. EEG showed normal waveforms for wake and sleep. Respiratory events were best palliated with CPAP at a pressure of +15. Limb activity noted early in this study, improved substantially after the application of pressure therapy. IMPRESSION: Obstructive sleep apnea syndrome (G47.33). RECOMMENDATION: Nightly use of pressure therapy 15 cm of water. MTDD
== END ==
LOC: M SLEEP 20:00
PROVIDERS: ATTEND Internal Medicine Pulmonary Disease
DX: G47.33 Obstructive sleep apnea (adult) (pediatric) (principal)

== ENCOUNTER 2020-02-13 18:23 | Inpatient (IN) | payer BC, OTHER ==
[~2020-02-13] VITALS: Ht 172.7 cm; Wt 111.5 kg
[~2020-02-13 18:23] MED LIST changes: -ACET500C10 PO; -CYCL5TAB PO; -DULO1CAP6 PO; -FLUC150T PO; -IBUP-1764 PO; -KETO2CR EXT; -POTA10TA17 PO; -PREG100CA PO; -VALS1TAB67
[2020-02-13 19:05] LABS: BASO % 0.4 % (0.0-1.0); EOS # 0.1 10^3/uL (0.0-0.5); EOS % 0.7 % (0.0-3.0); HEMATOCRIT 46.1 % (42.0-52.0); HEMOGLOBIN 15.2 g/dl (13.5-17.5); LYMPH # 2.4 10^3/uL (1.5-5.0); LYMPH % 21.9 % (24.0-44.0); MEAN CORPUSCULAR HEMOGLOBIN 28.9 pg (27.0-33.0); MEAN CORPUSCULAR VOLUME 87.6 fl (80.0-96.0); MONO # 0.5 10^3/uL (0.0-0.8); MONO % 4.7 % (0.0-5.0); NEUTROPHILS # 7.9 10^3/uL (1.5-8.5); NEUTROPHILS % 71.2 % (36.0-66.0); PLATELET COUNT, AUTOMATED 341 10^3/uL (150-450); RED BLOOD COUNT 5.26 10^6/uL (4.30-6.10); WHITE BLOOD COUNT 11.1 10^3/uL (4.0-10.0)
[2020-02-13 19:35] LABS: INR 0.87
--- NOTE | 2020-02-13 19:35 | REPVR ---
PROCEDURE INFORMATION: Exam: XR Chest, 1 View Exam date and time: 02/13/2020 6:40 PM Age: 44 years old Clinical indication: Other: Chest pain TECHNIQUE: Imaging protocol: XR of the chest Views: 1 view. COMPARISON: AR CHEST, CHEST AP X-CANAS 55" VG 01/23/2020 8:58 AM FINDINGS: Lungs: Unremarkable. No consolidation. Pleural space: Unremarkable. No pleural effusion. No pneumothorax. Heart/Mediastinum: Unremarkable. No cardiomegaly. Bones/joints: Unremarkable. IMPRESSION: No acute findings. Electronically signed by: Johnny Santa On 02/13/2020 19:35:20 PM
[2020-02-13 20:09] LABS: BILIRUBIN,DIRECT 0.2 MG/DL (0.0-0.2); BILIRUBIN,TOTAL 1.1 MG/DL (0.2-1.0); LIPASE 108 U/L (73-393)
[2020-02-13 20:10] LABS: ALT/SGPT 88 U/L (12-78); TOTAL PROTEIN 14.4 GM/DL (6.4-8.2)
[2020-02-13] MEDS ORDERED: methylPREDNISolone 125MG 2ML VIAL IV ONE (20:30)
[2020-02-13] MEDS ORDERED: ISOVUE-370 76% 100ML VIAL As Ordered ONE (22:42)
--- NOTE | 2020-02-13 22:57 | HPEPDOC ---
General Date of Admission Feb 13, 2020 at 21:07 Date of Service: Feb 13, 2020 Chief Complaint Dyspnea. Source: Patient Exam Limitations: No limitations Timing/Duration: Day(s) (2) Severity: Moderate Associated Symptoms: Shortness of breath History of Present Illness Patient is a 44 yo male with PMH of CIDP, HTN, and depression on chronic PO steroid presented to [facility] due to 2 days of worsening dyspnea that started while resting. He reported dyspnea with aggravating factoring including e xertion/activity. Denies any chest pain/palpitation/cough. He reported some nausea without emesis. He reported chest pressure while taking a deep pressure in retrosternal region only. Reported b/l lower extremity weakness and blurry vision for 2 days; denies pain with eye movement. Reported some chest tightness. He reported erythematous maculopapular prutitus and painful rash for a few weeks and has tried topical and oral antifungal without improvement, also reported right thigh annular scaly erythematous ring pruritus and painful lesion has not improved with topical or oral antifungal treatment. Pt had seen [facility] prior and was diagnosed with POEMS syndrome. Pt reported that he was recently admitted in the ICU requiring high flow nasal cannula, and that he follows with [facility] neurology(Dr. Mooney) and was diagnosed with CIDP; pt reported that he is on chronic steroid for breathing issue due to CIDP. Pt reported that he is on 3L NC oxygen at home Home Medications Scheduled Amitriptyline HCl (Amitriptyline HCl) 25 Mg Tablet, 25 MG PO BID, (Reported) Aspirin (Aspirin EC) 81 Mg Tablet.dr, 81 MG PO DAILY, (Reported) Baclofen (Baclofen) 10 Mg Tablet, 10 MG PO TID, (Reported) Calcitriol (Calcitriol) 0.25 Mcg Capsule, 0.25 MCG PO DAILY, (Reported) Calcium Carbonate (Tums) 200 Mg Tab.chew, 1,000 MG PO WM, (Reported) Cyclobenzaprine HCl (Cyclobenzaprine HCl) 5 Mg Tablet, 5 MG PO QHS, (Reported) Duloxetine Hcl (Duloxetine HCl) 60 Mg Capsule.dr, 60 MG PO DAILY, (Reported) Ergocalciferol (Vitamin D2) (Vitamin D2) 50,000 Units Cap, 50,000 UNITS PO QWEEK, (Reported) MONDAYS Fluconazole (Fluconazole) 150 Mg Tablet, 150 MG PO 1XWK, (Reported) WEDNESDAYS Furosemide (Furosemide) 20 Mg Tablet, 20 MG PO DAILY, (Reported) Hydrochlorothiazide (Hydrochlorothiazide) 25 Mg Tablet, 25 MG PO DAILY, (Reported) Ketoconazole (Ketoconazole) 15 Gm Cream..g., 1 DOSE EXT BID, (Reported) USES ON TORSO Metoprolol Succinate (Metoprolol Succinate) 100 Mg Tab.er.24h, 100 MG PO DAILY, (Reported) Pantoprazole Sodium (Pantoprazole Sodium) 40 Mg Tablet.dr, 40 MG PO BID, (Reported) Potassium Chloride (Potassium Chloride) 10 Meq Tab.er.prt, 20 MEQ PO DAILY, (Reported) Prednisone (Prednisone) 20 Mg Tablet, 20 MG PO DAILY, (Reported) Pregabalin (Lyrica) 100 Mg Capsule, 100 MG PO TID, (Reported) Ropinirole HCl (Ropinirole HCl) 1 Mg Tablet, 1 MG PO TID, (Reported) Sertraline HCl (Sertraline HCl) 50 Mg Tablet, 50 MG PO DAILY, (Reported) Sulfamethoxazole/Trimethoprim (Bactrim Ds Tablet) 1 Each Tablet, 1 TAB PO 3XW, ( Reported) MON/MON/MON Trazodone HCl (Trazodone HCl) 50 Mg Tablet, 75 MG PO QHS, (Reported) Scheduled PRN Acetaminophen (Acetaminophen) 325 Mg Tablet, 650 MG PO Q6H PRN for PAIN, (Reported) Ibuprofen (Ibuprofen) 200 Mg Tablet, 800 MG PO TID PRN for PAIN, (Reported) Allergies Coded Allergies: TAPE (Verified Allergy, Intermediate, HIVES, 04/03/19) PLASTIC TAPE, PAPER TAPE OK silver (Verified Allergy, Intermediate, HIVES, 04/03/19) Past Medical History Medical History CIDP/POEMS syndrome, prior received IVIG and high dose steroid Metapneumovirus bibasilar pneumonia HTN Depression Nephrolithiasis B/l dependent atelectasis, left more than right Tinea corporis PCP prophylaxis for chronic steroid use Transaminitis RLS GERD Maculopapular rash in trunk Chronic steroid use/PCP prophylaxis Tinea Corporis Surgical History Appendectomy Cholescystectomy Inguinal hernia repair Social History * Smoker: Denies A-FIB/CHADSVASC A-FIB History Current/History of A-Fib/PAF?: No Review of Systems Constitutional: Denies: Chills, Fever Eyes: Reports: Vision change (blurry vision) Pulmonary: Reports: Dyspnea; Denies: Cough Cardiovascular: Reports: Other Symptoms (Pos for chest tightness); Denies: Palpitations Gastrointestinal: Reports: Nausea, Diarrhea (1 day); Denies: Vomiting, Abdominal Pain, Constipation, Melena, Hematochezia Neurological: Reports: Weakness (b/l LE weakness), Other Symptoms (Denies tingling or loss of sensation); Denies: Numbness Physical Examination General Exam: Positive: Alert, No Acute Distress, Other (initially no acute distress, later started to wheeze in ICU) Eye Exam: Positive: Conjunctiva & lids normal; Negative: EOMI, Sclera icteric ENT Exam: Positive: Atraumatic, Mucous membr. moist/pink Neck Exam: Positive: Supple Chest Exam: Positive: Normal air movement; Negative: Rales, Rhonchi, Wheezing Heart Exam: Positive: Rate Normal, Regular Rhythm, Normal S1, Normal S2; Negative: Murmurs, Rubs Abdomen Exam: Positive: Normal bowel sounds, Soft, Other (Obese); Negative: Tenderness Extremity Exam: Positive: Edema (trace in b/l LE); Negative: Tenderness Skin Exam: Positive: Nl turgor and temperature, Rash (in chest/trunck), Other skin issue (right thigh scaly annular lesion) Neuro Exam: Positive: Normal Speech, Normal Tone, Sensation Intact, Cranial Nerves 3-12 NL, Other (B/l UE strength +5/5, b/l LE strength +4/5. Able to transfer between beds without assist. No numbness or tingling elicited upon touch. ) Psych Exam: Positive: Mental status NL, Mood NL, Memory Intact, Oriented x 3; Negative: Anxiety Vital Signs Vital Signs Date Time Temp Pulse Resp B/P (MAP) Pulse Ox O2 Delivery O2 Flow Rate FiO2 02/13/20 21:04 100 16 119/82 (94) 97 Nasal Cannula 3.0 02/13/20 18:24 97.5 Laboratory Data Labs 24H Laboratory Tests 2 02/13/20 18:52: Immature Granulocyte % (Auto) 1.1, Neutrophils (%) (Auto) 71.2H, Lymphocytes (%) (Auto) 21.9L, Monocytes (%) (Auto) 4.7, Eosinophils (%) (Auto) 0.7, Basophils (%) (Auto) 0.4, Neutrophils # (Auto) 7.9, Lymphocytes # (Auto) 2.4, Monocytes # (Auto) 0.5, Eosinophils # (Auto) 0.1, Basophils # (Auto) 0.0, Nucleated Red Blood Cells % (auto) 0.0, Prothrombin Time 12.0, Prothromb Time International Ratio 0.87, Total Bilirubin 1.1H, Direct Bilirubin 0.2, Aspartate Amino Transf (AST/SGOT) 51H, Alanine Aminotransferase (ALT/SGPT) 88H, Alkaline Phosphatase 111, UB-Fdr-R-Type Natriuretic Peptide 9, Total Protein 14.4H, Albumin 4.0, Albumin/Globulin Ratio 0.4, Lipase 108 02/13/20 21:22: Lactic Acid Level 1.8 CBC/BMP Laboratory Tests 02/13/20 18:52 Microbiology Microbiology 02/13/20 Respiratory Virus Panel (PCR) ([facility]) - Final, Complete Assessment/Plan 1. Reported worsening dyspnea, likely 2/2 bilateral lower lobe atelectasis, less likely d/t CIDP and/or POEMS syndrome. Pt has seen both [facility] and [facility] neurology. No signs of labored breathing or accessory muscle use. Reported blurry vision and increased b/l LE weakness for 2 days. CTA showed no PE with diffuse hazy lung field.Pt sat well on 3L home oxygen use. Cont pulse ox monitor. ABG revealed no PO2 and PCO2 wnl. CTA ordered by ER pending. COVID and resp panel neg. Lactic acid wnl. Patient received one dose of IV methylprednisolone 100mg in ER, and was having some wheezing as he was just transferred to ICU, thus another dose of IV 80mg IV methylprednisolone was ordered. Will have pt on IV methylprednisolone 16mg QD for now which is equivalent to home dose 20mg prednisone until further evaluation. Xopenex PRN. Obtain inpatient and outpatient records. Pulmonology and neurology consulted. 2. Transaminitis likely 2/ 2 NAFLD/KAYE. Obesity with increase abdominal size. Abdominal US ordered. 3. HTN. Cont home med Metoprolol. Hold home med lasix and HCTZ d/t VELIA. 4. Depression. Mood appears stable. Cont home med Zoloft, amitriptyline, and duloxetine. May consider follow up outpt for re-evaluation for SSRI/SNRI/TCA use at same time. 5. RLS. Cont home med Ropinirole and Lyrica 6. GERD. Cont home med Protonix and Tums. 7. VELIA likely pre-renal etiology. Hold home med HCTZ and lasix. Hold home med Ibuprofen and avoid nephrotoxix medications. Follow up with BMP. 8. Maculopapular rash in trunk. Previously pustular. Patient reported it was pruritus and painful, not improving with topical and oral antifungal per pt. Questionable 2/2 POEMS syndrome, r/o vasculitis/autoimmune etiology with RICK, ANCA; consider follow up with dermatology outpatient. Cont home med PO diflucan and topical ketoconazole for now. 9. Chronic steroid use/PCP prophylaxis. Continue penumocystic prophylaxis with TMP-SMX d/t chronic steroid use. 10. Tinea Corporis. Right thigh tinea corporis. Continue PO diflucan and topical ketoconazole for now. DVT prophylaxis: lovenox Plan / VTE VTE Prophylaxis Ordered?: Yes GME ATTESTATION GME ATTESTATION My faculty preceptor for this patient encounter was physically present during the encounter and was fully available. All aspects of the patient interview, examination, medical decision making process, and medical care plan development were reviewed and approved by the faculty preceptor. The faculty preceptor is aware and concurs with the plan as stated in the body of this note and will attest to such by his/her cosignature. ATTENDING NOTE is a 44 yr old w a hx of unspecified neurological disorder (per pt CIDP or possibly GB or POEMS per note from September 2019), Pre-DM HTN and restrictive lung disease who presented w c/o gradually worsening lower extremity weakness and dyspnea. His respiratory panel was neg, CT showed diffusely hazy lung solis. He will be admitted for evaluation of dyspnea, SIRS and transaminitis. 1 Dyspnea of unclear cause. Per d/w unlikely due to worsening CIDP may be due to non-specific restrictive lung condition. Unlikely due to fluid overload bc BNP is 9. Plan:f/u w & f/u serial PFTs for FVC, MIP, MEP 2 SIRS w (max HR 113 max RR28) Plan: f/u lactic acid, UA, and blood cx 3 Transaminitis Plan: f/u Hep panel and liver US 4 VELIA Plan: hold ibuprofen, hydralazine and lasix / hold off IVF for now bc he is on diuretics / f/u Ulytes for FENa, and Renal US 5 Unspecified Neurological condition CIDP ? vs GB vs POEMs vs other TBD Plan: obtain records [facility] - pt reports being told he needs BIPAP by but doesnt know settings Plan: nocturnal O2 / f/u w 7 Obesity w BMI of 44.4 complicates care Plan: f/u A1C Rest per Dr. Yasmin Lauren&P BERHANE LOVE DO Feb 13, 2020 22:57 KIM NEWBERRY MD Feb 14, 2020 01:13
[2020-02-13] MEDS ORDERED: methylPREDNISolone 125MG 2ML VIAL IV STA (22:59)
[2020-02-13 23:13] LABS: ERYTHROCYTE SEDIMENTATION RATE 3 mm/hr (0-15)
[2020-02-13] MEDS ORDERED: KETO2CR EXT (23:29)
[2020-02-13] MEDS ORDERED: FURO20TA2 PO (23:29)
[2020-02-13] MEDS ORDERED: POTA10TA17 PO (23:29)
[2020-02-13] MEDS ORDERED: CYCL5TAB PO (23:29)
[2020-02-13] MEDS ORDERED: SERT50TA29 PO (23:29)
[2020-02-13] MEDS ORDERED: TRAZ-252 PO (23:29)
[2020-02-13] MEDS ORDERED: FLUC150T PO (23:29)
[2020-02-13] MEDS ORDERED: IBUP-1764 PO (23:29)
[2020-02-13] MEDS ORDERED: PRED20TA PO (23:29)
[2020-02-13] MEDS ORDERED: DULO1CAP6 PO (23:29)
[2020-02-13] MEDS ORDERED: AMIT25TA PO (23:29)
--- NOTE | 2020-02-13 23:31 | REPVR ---
PROCEDURE INFORMATION: Exam: CT Angiography Chest with Contrast Exam date and time: 02/13/20 (10:50pm) Age: 44 years old Clinical indication: SOB. Possible pulmonary embolism. TECHNIQUE: Imaging protocol: Computed tomographic angiography of the chest with intravenous contrast. 3D rendering (Not supervised by radiologist): MIP and/or 3D reconstructed images were created by the technologist. Radiation optimization: All CT scans at this facility use at least one of these dose optimization techniques: automated exposure control; mA and/or kV adjustment per patient size (includes targeted exams where dose is matched to clinical indication); or iterative reconstruction. Contrast material: Isovue 370 Contrast volume: 75 ml Contrast route: IV COMPARISON: CTA CHEST of 10/17/19 FINDINGS: Pulmonary arteries: Normal. No pulmonary emboli. Aorta: Unremarkable. No aortic aneurysm. No aortic dissection. Lungs: Diffusely hazy lung solis again seen. No dense consolidation. No masses. Pleural space: Unremarkable. No pneumothorax. No pleural effusions. Heart: Stable cardiomegaly. Unremarkable. No cardiomegaly. No pericardial effusion. Lymph nodes: Unremarkable. No enlarged lymph nodes. Mediastinum: Prominent mediastinal fat (unchanged). Bones/joints: Unremarkable. No acute fracture. Soft tissues: Unremarkable. Upper abdomen: Diffuse fatty infiltration of the liver. S/P cholecystectomy. IMPRESSION: No filling defects suspicious for pulmonary emboli are seen. There is no CT evidence of aortic dissection nor leakage. No aortic aneurysm is appreciated. Stable cardiomegaly. Diffusely hazy lung solis again seen -- possible hypoventilatory changes; possible edema; perhaps a mild nonspecific pneumonitis. Electronically signed by: Elvira Carpenter On 02/13/2020 23:31:35 PM
[2020-02-13] MEDS ORDERED: PREG100CA PO (23:38)
[2020-02-14] VITALS (9 sets, daily range): BP systolic 111–138; BP diastolic 65–91
[2020-02-14 00:09] LABS: BLOOD UREA NITROGEN 26 MG/DL (7-18); CARBON DIOXIDE LEVEL 25 MEQ/L (21-32); CHLORIDE LEVEL 102 MEQ/L (98-107); CK-MB VALUE MASS < 1.0 NG/ML (<3.6); CPK CREATINE PHOSPHOKINASE 49 U/L (39-308); CREATININE FOR GFR 1.38 MG/DL (0.70-1.30); GLOMERULAR FILTRATION RATE 59.9 (>60); GLUCOSE, FASTING 134 MG/DL (70-100); MAGNESIUM LEVEL 2.5 MG/DL (1.8-2.4); MB/CK RELATIVE INDEX 2.04 (< OR =4); SODIUM LEVEL 140 MEQ/L (136-145); TROPONIN I < 0.02 NG/ML (< 0.10)
[2020-02-14] MEDS ORDERED: IBUPROFEN 800 MG TAB PO PRN (00:45)
[2020-02-14] MEDS ORDERED: NS 1,000 ML IV SCH ×2 (00:45→02:00)
[2020-02-14 00:47] LABS: ABG BASE EXCESS 1.5 (-2.0-2.0); ABG HCO3 26.1 MEQ/L (22.0-26.0); ABG O2 SATURATION 96.5 % (95.0-99.0); ABG PARTIAL PRESSURE CO2 41.2 mmHg (35.0-45.0); ABG PARTIAL PRESSURE O2 85.2 mmHg (75.0-100.0); ABG STANDARD HCO3 25.8 MEQ/L (22.0-26.0); ABG TOTAL CO2 27.4 MEQ/L (22.0-29.0)
[2020-02-14] MEDS: PANTOPRAZOLE 40MG TAB (PROTONIX) PO SCH ×3 (01:50→20:12)
[2020-02-14] MEDS: PREGABALIN 100 MG CAP (LYRICA) PO SCH ×4 (01:50→20:12)
[2020-02-14] MEDS: BACLOFEN 10 MG TAB PO SCH ×4 (01:50→20:12)
[2020-02-14] MEDS: ACETAMINOPHEN TAB 650MG DOSE (2X325MG) PO PRN ×2 (01:51→20:12)
[2020-02-14] MEDS ORDERED: LEVALBUTEROL HFA 45MCG/ACT 15 GM INHALER INH PRN (02:00)
[2020-02-14 02:16] LABS: HEMOGLOBIN A1c 6.9 %
[2020-02-14] MEDS: rOPINIRole 1MG TAB PO SCH ×4 (02:17→20:12)
[2020-02-14] MEDS: AMITRIPTYLINE 25 MG TAB PO SCH ×3 (02:18→20:11)
[2020-02-14 04:25] LABS: HEMATOCRIT 45.1 % (42.0-52.0); HEMOGLOBIN 14.6 g/dl (13.5-17.5); MEAN CORPUSCULAR HEMOGLOBIN 28.6 pg (27.0-33.0); MEAN CORPUSCULAR HGB CONC 32.4 g/dl (32.0-36.5); MEAN CORPUSCULAR VOLUME 88.4 fl (80.0-96.0); WHITE BLOOD COUNT 9.8 10^3/uL (4.0-10.0)
[2020-02-14 04:26] LABS: PLATELET COUNT, AUTOMATED 226 10^3/uL (150-450)
[2020-02-14 06:26] LABS: BLOOD UREA NITROGEN 25 MG/DL (7-18); CALCIUM LEVEL 8.6 MG/DL (8.5-10.1); CARBON DIOXIDE LEVEL 24 MEQ/L (21-32); CHLORIDE LEVEL 101 MEQ/L (98-107); CK-MB VALUE MASS < 1.0 NG/ML (<3.6); CPK CREATINE PHOSPHOKINASE 46 U/L (39-308); CREATININE FOR GFR 1.28 MG/DL (0.70-1.30); GLOMERULAR FILTRATION RATE > 60.0 (>60); GLUCOSE, FASTING 189 MG/DL (70-100); MAGNESIUM LEVEL 2.5 MG/DL (1.8-2.4); MB/CK RELATIVE INDEX 2.17 (< OR =4); POTASSIUM SERUM 4.3 MEQ/L (3.5-5.1); SODIUM LEVEL 138 MEQ/L (136-145); TROPONIN I < 0.02 NG/ML (< 0.10)
[2020-02-14] MEDS: CALCIUM CARBONATE 500 MG CHEW U/D PO SCH ×3 (08:15→18:21)
[2020-02-14] MEDS: CALCITRIOL 0.25 MCG CAP (S0169) PO SCH (08:16)
[2020-02-14] MEDS: ENOXAPARIN 40MG/0.4ML SYRINGE (J1650 PER 10MG) SC SCH (08:16)
[2020-02-14] MEDS: DULoxetine 30 MG CAP (CYMBALTA) PO SCH (08:17)
[2020-02-14] MEDS: ASPIRIN 81 MG ENTERIC TAB PO SCH (08:17)
[2020-02-14] MEDS: METOPROLOL SUCC (TopROL XL) 100MG *XL* TAB PO SCH (08:17)
[2020-02-14] MEDS: POTASSIUM CHLORIDE 10 MEQ SR TABLET PO SCH (08:18)
[2020-02-14] MEDS: SERTRALINE HCL 50 MG TAB PO SCH (08:18)
[2020-02-14] MEDS: KETOCONAZOLE 2% CREAM EXT SCH ×2 (08:19→20:12)
[2020-02-14] MEDS ORDERED: hydroCHLOROthiazide 25 MG TAB PO SCH (09:00)
[2020-02-14] MEDS ORDERED: methylPREDNISolone 125MG 2ML VIAL IV SCH (09:00)
[2020-02-14] MEDS ORDERED: methylPREDNISolone 40MG 1ML VIAL IV SCH (09:00)
[2020-02-14] MEDS ORDERED: BACTRIM 160MG/800MG DS TAB PO SCH (09:00)
[2020-02-14] MEDS ORDERED: FUROSEMIDE 20 MG TAB PO SCH (09:00)
[2020-02-14 11:28] LABS: HEPATITIS B SURFACE ANTIGEN NEGATIVE (NEGATIVE)
[2020-02-14 11:55] LABS: HEPATITIS B CORE ANTIBODY IGM NEGATIVE (NEGATIVE); HEPATITIS C VIRUS ABY INDEX 0.2 INDEX (<0.8)
[2020-02-14 11:58] LABS: HEPATITIS A ANTIBODY IGM NEGATIVE (NEGATIVE)
[2020-02-14] MEDS ORDERED: GLUCOSE 4GM CHEW TABLET PO PRN (12:15)
[2020-02-14] MEDS ORDERED: GLUCAGON INJ 1MG VIAL SC PRN (12:15)
[2020-02-14] MEDS ORDERED: DEXTROSE 50% 50 ML SYRINGE IV PRN (12:15)
--- NOTE | 2020-02-14 14:06 | IPNPDOC ---
Text Note Date of Service The patient was seen on 02/14/20. NOTE Patient was seen this morning in the ICU. States that he feels is breathing is slightly better but still SOB on activity. Fells his belly is bloated. Had a normal BM yesterday. Denies cough or any fever. PHYSICAL EXAMINATION: HEENT: Atraumatic, PERRLA CVS: Tachycardic, normal rhythm Lungs: Good air entry bilaterally, No appreciable wheezing / rales / rhonchi Abdomen: Soft, Non-distended, Non-tender Extremities: No extremity swelling, limbs intact Skin: Warm , upper trunk anbd back scattered rash Neuro: 5/5 strength and can raise b/l lower ext against gravity and sensory throughout. CN II-XII grossly intact. Sluggish reflex. LABORATORY DATA: Reviewed IMAGING:Reviewed 44 M with past hsitory of questionable POEMS, history of CIPD having received IVIG in the past and follows with multiple neurologist, comes for worsoning dyspnea and abd pain/distention. CT chest is showing chronic interstetial infilterates and he had mild transaminitis with is at base line. currentlybhe is put on levaquin for atypical PNA and work up initiated with atypical vs fungal pna, Viral RCR and LDL with fungital ordered. Abd CT ordered as the patient is stating that belly is bloated. Steriods continued on 60 mg IV daily and once all infective respiratory pathologies are r/o., the steriods can be deesclated to 20mg prednisone and he can be DC. He uses crutches for walking. 1. Dyspnea. Underevaluation . As he is on chronic steriods on 40 mg recently for his CIPD and we will rule out atypical vs fungal pna. Viral RCR and LDL with fungital ordered. Will strat him on levaquin 750 IV daily for now. CT chest reviewed. Atypical w/u started. COVID negative. CTA showed no PE with diffuse hazy lung field.Pt sat well on 3L home oxygen use. Continu methylprednisolone 60mg IV daily. Continue duonebs and maintain saturation above 92. 2. Transaminitis with hyperbil. [place] sign negative. Predominantly unconjugated. CT abd pelvis ordered as the patinet was complaining of abd bloating and is convinced he has ascitis. On exam no dullness or precussion thrill noted. 3. Upper trunk rash. Drug reaction. Was on bactrim fro PCP ppx.No need for pcp ppx as on low dose steriod now for the last one week. Dr Talbert updated as she is follows as outpatient. She agrees with the plan as well. Questionable 2/2 POEMS syndrome, r/o vasculitis/autoimmune etiology, he needs to follow up with dermatology outpatient. Cont home med PO diflucan and topical ketoconazole for now. 4. HTN. Cont home med Metoprolol. Hold home med lasix and HCTZ d/t VELIA. 5. Tinea Corporis. Right thigh tinea corporis. Continue PO diflucan and topical ketoconazole for now. DVT prophylaxis: lovenox Disposition : Home once clinical improvement. VS,Amy, I+O VS, Amy, I+O Laboratory Tests 02/13/20 18:52 02/14/20 03:47 Vital Signs Date Time Temp Pulse Resp B/P (MAP) Pulse Ox O2 Delivery O2 Flow Rate FiO2 02/14/20 11:04 3.0 02/14/20 08:17 103 125/74 02/14/20 08:00 97.5 20 94 Nasal Cannula I&O- Last 24 Hours up to 6 AM 02/14/20 05:59 Intake Total 700 ml Output Total 525 ml Balance 175 ml BILL GREENWOOD MD Feb 14, 2020 13:37
[2020-02-14] MEDS: LevoFLOXacin IV 750 MG in IV 1 EA IV SCH (15:30)
[2020-02-14] MEDS ORDERED: PILL CUTTER 1 EACH XX PRN (17:00)
--- NOTE | 2020-02-14 17:21 | REPVR ---
PROCEDURE INFORMATION: Exam: CT Abdomen And Pelvis Without Contrast Exam date and time: 02/14/2020 12:55 PM Age: 44 years old Clinical indication: Abdominal pain; Additional info: Abd distention TECHNIQUE: Imaging protocol: Computed tomography of the abdomen and pelvis without contrast. Radiation optimization: All CT scans at this facility use at least one of these dose optimization techniques: automated exposure control; mA and/or kV adjustment per patient size (includes targeted exams where dose is matched to clinical indication); or iterative reconstruction. COMPARISON: No relevant prior studies available. FINDINGS: Lungs: Bibasilar atelectasis. Liver: There is a diffuse decrease in hepatic parenchymal density, consistent with steatosis. Gallbladder and bile ducts: There has been a cholecystectomy. Pancreas: Normal. No ductal dilation. Spleen: Normal. No splenomegaly. Adrenals: Normal. No mass. Kidneys and ureters: Punctate nonobstructive calculi in the kidneys. Stomach and bowel: Unremarkable. No obstruction. No mucosal thickening. Appendix: No evidence of appendicitis. Intraperitoneal space: Unremarkable. No free air. No significant fluid collection. Vasculature: Unremarkable. No abdominal aortic aneurysm. Lymph nodes: Unremarkable. No enlarged lymph nodes. Bladder: Unremarkable as visualized. Reproductive: Unremarkable as visualized. Bones/joints: Unremarkable. No acute fracture. Soft tissues: Unremarkable. IMPRESSION: 1. There is a diffuse decrease in hepatic parenchymal density, consistent with steatosis. 2. There has been a cholecystectomy. 3. Punctate nonobstructive calculi in the kidneys. Electronically signed by: Johnny Santa On 02/14/2020 17:21:53 PM
[2020-02-14] MEDS: HumaLOG INSULIN (NovoLOG) PER UNIT SC SCH ×2 (18:20→20:25)
[2020-02-14] MEDS: traZODone 50 MG TAB PO SCH (20:12)
[2020-02-14] MEDS: CYCLOBENZAPRINE 10MG TABLET PO SCH (20:25)
[2020-02-15 02:00] VITALS: BP 126/84
[2020-02-15 06:00] VITALS: BP 127/86
[2020-02-15 07:49] LABS: HEMATOCRIT 40.8 % (42.0-52.0); HEMOGLOBIN 13.3 g/dl (13.5-17.5); MEAN CORPUSCULAR HEMOGLOBIN 28.6 pg (27.0-33.0); MEAN CORPUSCULAR HGB CONC 32.6 g/dl (32.0-36.5); MEAN CORPUSCULAR VOLUME 87.7 fl (80.0-96.0); PLATELET COUNT, AUTOMATED 258 10^3/uL (150-450); RED BLOOD COUNT 4.65 10^6/uL (4.30-6.10); WHITE BLOOD COUNT 10.1 10^3/uL (4.0-10.0)
[2020-02-15 08:19] LABS: BLOOD UREA NITROGEN 27 MG/DL (7-18); CALCIUM LEVEL 8.9 MG/DL (8.5-10.1); CARBON DIOXIDE LEVEL 27 MEQ/L (21-32); CHLORIDE LEVEL 102 MEQ/L (98-107); CREATININE FOR GFR 1.16 MG/DL (0.70-1.30); GLOMERULAR FILTRATION RATE > 60.0 (>60); GLUCOSE, FASTING 128 MG/DL (70-100); POTASSIUM SERUM 3.9 MEQ/L (3.5-5.1); SODIUM LEVEL 138 MEQ/L (136-145)
[2020-02-15] MEDS: HumaLOG INSULIN (NovoLOG) PER UNIT SC SCH ×4 (09:37→21:00)
[2020-02-15] MEDS: CALCIUM CARBONATE 500 MG CHEW U/D PO SCH ×3 (09:38→17:30)
[2020-02-15] MEDS: ENOXAPARIN 40MG/0.4ML SYRINGE (J1650 PER 10MG) SC SCH (09:38)
[2020-02-15] MEDS: ASPIRIN 81 MG ENTERIC TAB PO SCH (09:38)
[2020-02-15] MEDS: methylPREDNISolone 125MG 2ML VIAL IV SCH (09:38)
[2020-02-15] MEDS: SERTRALINE HCL 50 MG TAB PO SCH (09:38)
[2020-02-15] MEDS: POTASSIUM CHLORIDE 10 MEQ SR TABLET PO SCH (09:39)
[2020-02-15] MEDS: PANTOPRAZOLE 40MG TAB (PROTONIX) PO SCH ×2 (09:39→21:12)
[2020-02-15] MEDS: CALCITRIOL 0.25 MCG CAP (S0169) PO SCH (09:39)
[2020-02-15] MEDS: BACLOFEN 10 MG TAB PO SCH ×3 (09:39→21:12)
[2020-02-15] MEDS: rOPINIRole 1MG TAB PO SCH ×3 (09:39→21:13)
[2020-02-15] MEDS: DULoxetine 30 MG CAP (CYMBALTA) PO SCH (09:39)
[2020-02-15] MEDS: PREGABALIN 100 MG CAP (LYRICA) PO SCH ×3 (09:40→21:13)
[2020-02-15] MEDS: METOPROLOL SUCC (TopROL XL) 100MG *XL* TAB PO SCH (09:40)
[2020-02-15] MEDS: AMITRIPTYLINE 25 MG TAB PO SCH ×2 (09:40→21:12)
[2020-02-15 10:00] VITALS: BP 130/80
[2020-02-15] MEDS: KETOCONAZOLE 2% CREAM EXT SCH ×2 (12:40→21:13)
[2020-02-15] MEDS: ACETAMINOPHEN TAB 650MG DOSE (2X325MG) PO PRN (12:40)
[2020-02-15 14:00] VITALS: BP 137/91
[2020-02-15] MEDS: LevoFLOXacin IV 750 MG in IV 1 EA IV SCH (15:41)
[2020-02-15 18:00] VITALS: BP 130/80
--- NOTE | 2020-02-15 18:17 | IPNPDOC ---
Text Note Date of Service The patient was seen on 02/15/20. NOTE Patient was seen this morning, He was shifted to the Med Surg floor. . States that he feels is breathing is slightly better but still SOB on activity. Fells his belly is bloated. Had a normal BM today. Still has the rash but it continues to get better. Denies cough or any fever. PHYSICAL EXAMINATION: HEENT: Atraumatic, PERRLA CVS: Tachycardic, normal rhythm Lungs: Good air entry bilaterally, No appreciable wheezing / rales / rhonchi Abdomen: Soft, Non-distended, Non-tender Extremities: No extremity swelling, limbs intact Skin: Warm , upper trunk anbd back scattered rash Neuro: 5/5 strength and can raise b/l lower ext against gravity and sensory throughout. CN II-XII grossly intact. Sluggish reflex. LABORATORY DATA: Reviewed IMAGING:Reviewed 44 M with past history of questionable POEMS, history of CIPD having received IVIG in the past and follows with multiple neurologist, comes for worsening dyspnea and abd pain/distention. CT chest is showing chronic interstitial infiltrates and he had mild transaminitis with is at base line. currently he is put on levaquin for atypical PNA and work up initiated with atypical vs fungal pna, Viral RCR and LDL with fungital ordered. Abd CT ordered as the patient is stating that belly is bloated. Steroids continued on 60 mg IV daily and once all infective respiratory pathologies are r/o., the steroids can be de escalated to 20mg prednisone and he can be DC. He uses crutches for walking. 1. Dyspnea. Under evaluation . As he is on chronic steroids on 40 mg recently for his CIPD , we will rule out atypical vs fungal pna. Viral RCR and LDL with fungital ordered. Pt is on levaquin 750 IV daily for now. CT chest reviewed. Atypical w/u started. COVID negative. CTA showed no PE with diffuse hazy lung field. Pt sat well on 3L home oxygen use. Continue methylprednisolone 60mg IV daily. Continue duo nebs and maintain saturation above 92. 2. Transaminitis with hyperbil. Tapia's sign negative. Predominantly un conjugated. CT abd pelvis ordered as the patient was complaining of abd bloating and is convinced he has ascites. On exam no dullness or percussion thrill noted. 3. Upper trunk rash. Drug reaction. Was on bactrim fro PCP ppx. No need for pcp ppx as on low dose steroid now for the last one week. Dr Talbert updated as she is follows as outpatient. She agrees with the plan as well. Questionable 2/2 POEMS syndrome, r/o vasculitis/autoimmune etiology, he needs to follow up with dermatology outpatient. Cont home med PO diflucan and topical ketoconazole for now. 4. HTN. Cont home med Metoprolol. Hold home med Lasix and HCTZ d/t VELIA. 5. Tinea Corporis. Right thigh and neck tinea corporis. Continue PO diflucan and topical ketoconazole for now. DVT prophylaxis: Lovenox Disposition : Home once clinical improvement. VS,Fishbone, I+O VS, Fishbone, I+O Laboratory Tests 02/15/20 07:18 Vital Signs Date Time Temp Pulse Resp B/P (MAP) Pulse Ox O2 Delivery O2 Flow Rate FiO2 02/15/20 10:00 98.3 95 18 130/80 (97) 95 Nasal Cannula 3.0 I&O- Last 24 Hours up to 6 AM 02/15/20 06:00 Intake Total 1200 ml Output Total 825 ml Balance 375 ml GME ATTESTATION GME ATTESTATION My faculty preceptor for this patient encounter was physically present during the encounter and was fully available. All aspects of the patient interview, examination, medical decision making process, and medical care plan development were reviewed and approved by the faculty preceptor. The faculty preceptor is aware and concurs with the plan as stated in the body of this note and will attest to such by his/her cosignature. ATTENDING NOTE I independently examined the patient and discussed the clinical status and management with the resident, as stated above. Tiera Cary MD Feb 15, 2020 11:21 XIOMARA OLIVIA MD Feb 16, 2020 18:21
[2020-02-15] MEDS: traZODone 50 MG TAB PO SCH (21:12)
[2020-02-15] MEDS: CYCLOBENZAPRINE 10MG TABLET PO SCH (21:12)
[2020-02-15 22:00] VITALS: BP 135/91
[2020-02-16 02:00] VITALS: BP 118/88
[2020-02-16 06:00] VITALS: BP 118/84
[2020-02-16 06:19] LABS: HEMATOCRIT 40.9 % (42.0-52.0); HEMOGLOBIN 12.9 g/dl (13.5-17.5); MEAN CORPUSCULAR HEMOGLOBIN 28.1 pg (27.0-33.0); MEAN CORPUSCULAR HGB CONC 31.5 g/dl (32.0-36.5); MEAN CORPUSCULAR VOLUME 89.1 fl (80.0-96.0); PLATELET COUNT, AUTOMATED 238 10^3/uL (150-450); RED BLOOD COUNT 4.59 10^6/uL (4.30-6.10); WHITE BLOOD COUNT 11.9 10^3/uL (4.0-10.0)
[2020-02-16 06:44] LABS: ALT/SGPT 68 U/L (12-78); BILIRUBIN,TOTAL 0.8 MG/DL (0.2-1.0); BLOOD UREA NITROGEN 20 MG/DL (7-18); CALCIUM LEVEL 8.9 MG/DL (8.5-10.1); CARBON DIOXIDE LEVEL 31 MEQ/L (21-32); CHLORIDE LEVEL 104 MEQ/L (98-107); CREATININE FOR GFR 0.98 MG/DL (0.70-1.30); GLOMERULAR FILTRATION RATE > 60.0 (>60); GLUCOSE, FASTING 116 MG/DL (70-100); SODIUM LEVEL 138 MEQ/L (136-145); TOTAL PROTEIN 6.3 GM/DL (6.4-8.2)
[2020-02-16] MEDS: ENOXAPARIN 40MG/0.4ML SYRINGE (J1650 PER 10MG) SC SCH (08:56)
[2020-02-16] MEDS: SERTRALINE HCL 50 MG TAB PO SCH (08:57)
[2020-02-16] MEDS: KETOCONAZOLE 2% CREAM EXT SCH ×2 (08:57→21:05)
[2020-02-16] MEDS: HumaLOG INSULIN (NovoLOG) PER UNIT SC SCH ×4 (08:57→21:00)
[2020-02-16] MEDS: methylPREDNISolone 125MG 2ML VIAL IV SCH (08:57)
[2020-02-16] MEDS: ASPIRIN 81 MG ENTERIC TAB PO SCH (08:58)
[2020-02-16] MEDS: rOPINIRole 1MG TAB PO SCH ×3 (08:58→21:04)
[2020-02-16] MEDS: CALCIUM CARBONATE 500 MG CHEW U/D PO SCH ×3 (08:58→17:30)
[2020-02-16] MEDS: BACLOFEN 10 MG TAB PO SCH ×3 (08:58→21:04)
[2020-02-16] MEDS: POTASSIUM CHLORIDE 10 MEQ SR TABLET PO SCH (08:59)
[2020-02-16] MEDS: AMITRIPTYLINE 25 MG TAB PO SCH ×2 (08:59→21:04)
[2020-02-16] MEDS: DULoxetine 30 MG CAP (CYMBALTA) PO SCH (08:59)
[2020-02-16] MEDS: CALCITRIOL 0.25 MCG CAP (S0169) PO SCH (08:59)
[2020-02-16] MEDS: PREGABALIN 100 MG CAP (LYRICA) PO SCH ×3 (08:59→21:05)
[2020-02-16] MEDS: PANTOPRAZOLE 40MG TAB (PROTONIX) PO SCH ×2 (08:59→21:04)
[2020-02-16] MEDS: METOPROLOL SUCC (TopROL XL) 100MG *XL* TAB PO SCH (08:59)
[2020-02-16 10:00] VITALS: BP 139/82
[2020-02-16 14:00] VITALS: BP 155/92
[2020-02-16] MEDS: LevoFLOXacin IV 750 MG in IV 1 EA IV SCH (15:34)
[2020-02-16 18:00] VITALS: BP 148/92
--- NOTE | 2020-02-16 18:39 | IPNPDOC ---
Text Note Date of Service The patient was seen on 02/16/20. NOTE Subjective: -No acute issues overnight, no complaints this morning PHYSICAL EXAMINATION: HEENT: NCAT, PERRLA, EOMI, MMM, cushingoid CVS: Tachycardic, regular rhythm, no noted murmurs Lungs: CTAB, takes short shallow breaths Abdomen: Soft, non-distended, non-tender, central obesity Extremities: No extremity swelling, limbs intact Skin: scattered truncal and back rash, pustular appearing Neuro: 5/5 strength, CN II-XII grossly intact. LABORATORY DATA: Reviewed IMAGING:Reviewed 44 M with past history of questionable POEMS, history of CIPD having received IVIG in the past and follows with multiple neurologist, comes for worsening dyspnea and abd pain/distention. CT chest is showing chronic interstitial infiltrates and he had mild transaminitis per base line. Currently he is put on levaquin for atypical PNA and work up initiated with atypical vs fungal pna, Viral RCR and LDL with fungitell ordered. 1. Dyspnea: As he is on chronic steroids on 40 mg recently for presumed CIPD , we will rule out atypical vs fungal pna. -Fungitell ordered. -Pt is on levaquin 750 IV daily for now. -Atypical w/u started. -COVID negative. -Continue methylprednisolone 60mg IV daily. -Continue duo nebs and maintain saturation above 92. 2. Transaminitis with hyperbilirubinemia: -Tapia's sign negative. -Predominantly unconjugated. -CT abd pelvis with hepatic steatosis but no other culprit pathology 3. Upper trunk rash. Thought 2/2 bactrim that he was on for PCP ppx -Bactrim was discontinued -Questionable patient claimed history of POEMS syndrome without any actual ob jective evidence of it -r/o vasculitis/autoimmune etiology -he needs to follow up with dermatology outpatient. -Cont home med PO diflucan and topical ketoconazole for now. 4. HTN. -Cont home med Metoprolol. -Hold home med Lasix and HCTZ i/s/o VELIA. 5. Tinea Corporis. -Right thigh and neck tinea corporis. -Continue PO diflucan and topical ketoconazole for now. DVT prophylaxis: Lovenox Disposition : Home once clinical improvement. VS,Fishbone, I+O VS, Fishbone, I+O Laboratory Tests 02/16/20 05:47 Vital Signs Date Time Temp Pulse Resp B/P (MAP) Pulse Ox O2 Delivery O2 Flow Rate FiO2 02/16/20 18:00 98.0 95 19 148/92 (110) 99 Nasal Cannula 3.0 I&O- Last 24 Hours up to 6 AM 02/16/20 06:00 Intake Total 2090 ml Output Total 1400 ml Balance 690 ml XIOMARA OLIVIA MD Feb 16, 2020 18:39
[2020-02-16] MEDS: CYCLOBENZAPRINE 10MG TABLET PO SCH (21:04)
[2020-02-16] MEDS: traZODone 50 MG TAB PO SCH (21:04)
[2020-02-16 22:00] VITALS: BP 113/75
[2020-02-17 06:00] VITALS: BP 128/99
[2020-02-17 06:10] LABS: HEMATOCRIT 40.4 % (42.0-52.0); HEMOGLOBIN 12.8 g/dl (13.5-17.5); MEAN CORPUSCULAR HEMOGLOBIN 28.3 pg (27.0-33.0); MEAN CORPUSCULAR HGB CONC 31.7 g/dl (32.0-36.5); MEAN CORPUSCULAR VOLUME 89.2 fl (80.0-96.0); PLATELET COUNT, AUTOMATED 253 10^3/uL (150-450); RED BLOOD COUNT 4.53 10^6/uL (4.30-6.10); WHITE BLOOD COUNT 11.2 10^3/uL (4.0-10.0)
[2020-02-17 06:36] LABS: ALBUMIN 3.1 GM/DL (3.2-5.2); ALT/SGPT 69 U/L (12-78); BILIRUBIN,TOTAL 0.6 MG/DL (0.2-1.0); BLOOD UREA NITROGEN 20 MG/DL (7-18); CALCIUM LEVEL 8.8 MG/DL (8.5-10.1); CARBON DIOXIDE LEVEL 29 MEQ/L (21-32); CHLORIDE LEVEL 105 MEQ/L (98-107); CREATININE FOR GFR 0.95 MG/DL (0.70-1.30); GLOMERULAR FILTRATION RATE > 60.0 (>60); GLUCOSE, FASTING 112 MG/DL (70-100); POTASSIUM SERUM 3.9 MEQ/L (3.5-5.1); SODIUM LEVEL 139 MEQ/L (136-145); TOTAL PROTEIN 5.9 GM/DL (6.4-8.2)
[2020-02-17] MEDS: CALCIUM CARBONATE 500 MG CHEW U/D PO SCH ×3 (07:43→17:09)
[2020-02-17] MEDS: HumaLOG INSULIN (NovoLOG) PER UNIT SC SCH ×4 (07:44→21:00)
[2020-02-17 09:00] VITALS: O2SAT 94
[2020-02-17] MEDS: PREGABALIN 100 MG CAP (LYRICA) PO SCH ×3 (09:28→21:14)
[2020-02-17 10:00] VITALS: BP 131/96; O2SAT 95
[2020-02-17] MEDS: ENOXAPARIN 40MG/0.4ML SYRINGE (J1650 PER 10MG) SC SCH (10:34)
[2020-02-17] MEDS: rOPINIRole 1MG TAB PO SCH ×3 (10:35→21:14)
[2020-02-17] MEDS: ASPIRIN 81 MG ENTERIC TAB PO SCH (10:35)
[2020-02-17] MEDS: methylPREDNISolone 125MG 2ML VIAL IV SCH (10:35)
[2020-02-17] MEDS: SERTRALINE HCL 50 MG TAB PO SCH (10:35)
[2020-02-17] MEDS: POTASSIUM CHLORIDE 10 MEQ SR TABLET PO SCH (10:37)
[2020-02-17] MEDS: METOPROLOL SUCC (TopROL XL) 100MG *XL* TAB PO SCH (10:37)
[2020-02-17] MEDS: DULoxetine 30 MG CAP (CYMBALTA) PO SCH (10:38)
[2020-02-17] MEDS: PANTOPRAZOLE 40MG TAB (PROTONIX) PO SCH ×2 (10:38→21:14)
[2020-02-17] MEDS: AMITRIPTYLINE 25 MG TAB PO SCH ×2 (10:38→21:14)
[2020-02-17] MEDS: BACLOFEN 10 MG TAB PO SCH ×3 (10:38→21:14)
[2020-02-17] MEDS: CALCITRIOL 0.25 MCG CAP (S0169) PO SCH (10:38)
[2020-02-17] MEDS: KETOCONAZOLE 2% CREAM EXT SCH ×2 (10:39→21:14)
--- NOTE | 2020-02-17 10:48 | IPNPDOC ---
Text Note Date of Service The patient was seen on 02/17/20. NOTE Subjective: -No acute issues overnight PHYSICAL EXAMINATION: HEENT: NCAT, PERRLA, EOMI, MMM, cushingoid CVS: Tachycardic, regular rhythm, no noted murmurs Lungs: CTAB, takes short shallow breaths Abdomen: Soft, non-distended, non-tender, central obesity Extremities: No extremity swelling, limbs intact Skin: scattered truncal and back rash, pustular appearing Neuro: 5/5 strength, CN II-XII grossly intact. 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 CT chest is showing chronic interstitial infiltrates and he had mild transaminitis per base line. Currently he is put on levaquin for atypical PNA and work up initiated with atypical vs fungal pna, Viral RCR and LDL with fungitell pending. 1. Dyspnea: As he is on chronic steroids on 40 mg recently for presumed CIPD , we will rule out atypical vs fungal pna. -Fungitell ordered. -Pt is on levaquin 750 IV daily, day 4 of abx -COVID negative. -Continue methylprednisolone 60mg IV daily. Will need a very long taper, though my suspicion is that he will need high dose steroids at least to 40mg because he has become steroid dependent and appears to decompensate at doses <20mg. -Continue duo nebs and maintain saturation above 92. 2. Transaminitis with hyperbilirubinemia: -Tapia's sign negative. -Predominantly unconjugated. -CT abd pelvis with hepatic steatosis but no other culprit pathology 3. Upper trunk rash. 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 -Cont home med PO diflucan and topical ketoconazole for now. 4. HTN. -Cont home med Metoprolol. -Hold home med Lasix and HCTZ i/s/o VELIA. 5. Tinea Corporis. -Right thigh and neck tinea corporis. -Continue PO diflucan and topical ketoconazole for now. DVT prophylaxis: Lovenox Disposition : Home once clinical improvement. VS,Fishbone, I+O VS, Fishbone, I+O Laboratory Tests 02/17/20 05:25 Vital Signs Date Time Temp Pulse Resp B/P (MAP) Pulse Ox O2 Delivery O2 Flow Rate FiO2 02/17/20 06:00 98.0 85 15 128/99 (109) 94 Nasal Cannula 3.0 I&O- Last 24 Hours up to 6 AM 02/17/20 06:00 Intake Total 2640 ml Output Total 1600 ml Balance 1040 ml XIOMARA OLIVIA MD Feb 17, 2020 08:31
[2020-02-17 14:00] VITALS: BP 136/95
[2020-02-17] MEDS: FUROSEMIDE 20 MG TAB PO SCH (14:47)
[2020-02-17] MEDS: LevoFLOXacin IV 750 MG in IV 1 EA IV SCH (14:47)
[2020-02-17 18:00] VITALS: BP 119/81
[2020-02-17] MEDS: traZODone 50 MG TAB PO SCH (21:13)
[2020-02-17] MEDS: CYCLOBENZAPRINE 10MG TABLET PO SCH (21:13)
[2020-02-17 22:00] VITALS: BP 115/81
[2020-02-18 02:00] VITALS: BP 125/80
[2020-02-18 06:00] VITALS: BP 124/86
[2020-02-18 06:11] LABS: HEMATOCRIT 40.6 % (42.0-52.0); MEAN CORPUSCULAR HEMOGLOBIN 28.3 pg (27.0-33.0); MEAN CORPUSCULAR VOLUME 88.3 fl (80.0-96.0); PLATELET COUNT, AUTOMATED 254 10^3/uL (150-450); WHITE BLOOD COUNT 11.5 10^3/uL (4.0-10.0)
[2020-02-18 06:33] LABS: BLOOD UREA NITROGEN 18 MG/DL (7-18); CALCIUM LEVEL 9.1 MG/DL (8.5-10.1); CARBON DIOXIDE LEVEL 29 MEQ/L (21-32); CHLORIDE LEVEL 104 MEQ/L (98-107); CREATININE FOR GFR 0.98 MG/DL (0.70-1.30); GLOMERULAR FILTRATION RATE > 60.0 (>60); GLUCOSE, FASTING 111 MG/DL (70-100); POTASSIUM SERUM 3.8 MEQ/L (3.5-5.1); SODIUM LEVEL 141 MEQ/L (136-145)
[2020-02-18] MEDS: DULoxetine 30 MG CAP (CYMBALTA) PO SCH (08:00)
[2020-02-18] MEDS: rOPINIRole 1MG TAB PO SCH ×3 (08:00→21:32)
[2020-02-18] MEDS: PANTOPRAZOLE 40MG TAB (PROTONIX) PO SCH ×2 (08:00→21:31)
[2020-02-18] MEDS: FUROSEMIDE 20 MG TAB PO SCH (08:00)
[2020-02-18] MEDS: ASPIRIN 81 MG ENTERIC TAB PO SCH (08:00)
[2020-02-18] MEDS: PREGABALIN 100 MG CAP (LYRICA) PO SCH ×3 (08:00→21:31)
[2020-02-18] MEDS: ENOXAPARIN 40MG/0.4ML SYRINGE (J1650 PER 10MG) SC SCH (08:00)
[2020-02-18] MEDS: BACLOFEN 10 MG TAB PO SCH ×3 (08:00→21:31)
[2020-02-18] MEDS: METOPROLOL SUCC (TopROL XL) 100MG *XL* TAB PO SCH (08:00)
[2020-02-18] MEDS: AMITRIPTYLINE 25 MG TAB PO SCH ×2 (08:00→21:31)
[2020-02-18] MEDS: POTASSIUM CHLORIDE 10 MEQ SR TABLET PO SCH (08:00)
[2020-02-18] MEDS: HumaLOG INSULIN (NovoLOG) PER UNIT SC SCH ×4 (08:00→21:00)
[2020-02-18] MEDS: KETOCONAZOLE 2% CREAM EXT SCH ×2 (08:00→21:32)
[2020-02-18] MEDS: methylPREDNISolone 125MG 2ML VIAL IV SCH (08:03)
[2020-02-18] MEDS: CALCIUM CARBONATE 500 MG CHEW U/D PO SCH ×3 (08:04→17:36)
[2020-02-18] MEDS: CALCITRIOL 0.25 MCG CAP (S0169) PO SCH (08:22)
[2020-02-18] MEDS: SERTRALINE HCL 50 MG TAB PO SCH (08:22)
[2020-02-18 10:00] VITALS: BP_SYST 151; BP_SYST 172; BP_DIAS 110; BP_DIAS 112
--- NOTE | 2020-02-18 12:37 | IPNPDOC ---
Text Note Date of Service The patient was seen on 02/18/20. NOTE Subjective: -No acute issues overnight PHYSICAL EXAMINATION: HEENT: NCAT, PERRLA, EOMI, MMM, cushingoid CVS: Tachycardic, regular rhythm, no noted murmurs Lungs: CTAB, takes short shallow breaths Abdomen: Soft, non-distended, non-tender, central obesity Extremities: No extremity swelling, limbs intact Skin: scattered truncal and back rash, pustular appearing Neuro: 5/5 strength, CN II-XII grossly intact. 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 CT chest is showing chronic interstitial infiltrates and he had mild transaminitis per base line. Currently he is put on levaquin for atypical PNA and work up initiated with atypical vs fungal pna, Viral RCR and LDL with fungitell pending. 1. Dyspnea: As he is on chronic steroids on 40 mg recently for presumed CIPD , we will rule out atypical vs fungal pna. -Fungitell ordered. -Pt is on levaquin 750 IV daily, day 5 of abx -COVID negative. -Discontinue methylprednisolone 60mg IV daily, and place on prednisone 50mg. Will need a very long taper, though my suspicion is that he will need high dose steroids at least to 40mg because he has become steroid dependent and appears to decompensate at doses <20mg. -Continue duo nebs and maintain saturation above 92. 2. Transaminitis with hyperbilirubinemia: -Tapia's sign negative. -Predominantly unconjugated. -CT abd pelvis with hepatic steatosis but no other culprit pathology 3. Upper trunk rash. 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 -Cont home med PO diflucan and topical ketoconazole for now. 4. HTN. -Cont home med Metoprolol. -Hold home med Lasix and HCTZ i/s/o VELIA. 5. Tinea Corporis. -Right thigh and neck tinea corporis. -Continue PO diflucan and topical ketoconazole for now. DVT prophylaxis: Lovenox Disposition : PT/OT eval for safe discharge planning. VS,Oswalde, I+O VS, Stuartbone, I+O Laboratory Tests 02/18/20 05:17 Vital Signs Date Time Temp Pulse Resp B/P (MAP) Pulse Ox O2 Delivery O2 Flow Rate FiO2 02/18/20 10:00 97.5 87 20 172/112 (132) 95 Nasal Cannula 3.0 I&O- Last 24 Hours up to 6 AM 02/18/20 06:00 Intake Total 1080 ml Output Total 1975 ml Balance -895 ml XIOMARA OLIVIA MD Feb 18, 2020 12:37
[2020-02-18] MEDS: ACETAMINOPHEN TAB 650MG DOSE (2X325MG) PO PRN (13:31)
[2020-02-18 14:00] VITALS: BP 116/76
[2020-02-18 16:12] LABS: ANTINUCLEAR ANTIBODIES DIRECT Negative (Negative)
[2020-02-18 18:00] VITALS: BP 113/75
[2020-02-18] MEDS: traZODone 50 MG TAB PO SCH (21:32)
[2020-02-18] MEDS: CYCLOBENZAPRINE 10MG TABLET PO SCH (21:32)
[2020-02-18 22:00] VITALS: BP 111/73
[2020-02-19 02:00] VITALS: BP 140/89
[2020-02-19 06:00] VITALS: BP 134/96
[2020-02-19] MEDS: ENOXAPARIN 40MG/0.4ML SYRINGE (J1650 PER 10MG) SC SCH (08:15)
[2020-02-19] MEDS: ASPIRIN 81 MG ENTERIC TAB PO SCH (08:16)
[2020-02-19] MEDS: DULoxetine 30 MG CAP (CYMBALTA) PO SCH (08:16)
[2020-02-19] MEDS: CALCIUM CARBONATE 500 MG CHEW U/D PO SCH ×3 (08:16→17:06)
[2020-02-19] MEDS: HumaLOG INSULIN (NovoLOG) PER UNIT SC SCH ×4 (08:16→21:00)
[2020-02-19] MEDS: rOPINIRole 1MG TAB PO SCH ×3 (08:16→21:08)
[2020-02-19] MEDS: PANTOPRAZOLE 40MG TAB (PROTONIX) PO SCH ×2 (08:17→21:09)
[2020-02-19] MEDS: SERTRALINE HCL 50 MG TAB PO SCH (08:17)
[2020-02-19] MEDS: CALCITRIOL 0.25 MCG CAP (S0169) PO SCH (08:17)
[2020-02-19] MEDS: AMITRIPTYLINE 25 MG TAB PO SCH ×2 (08:17→21:08)
[2020-02-19] MEDS: POTASSIUM CHLORIDE 10 MEQ SR TABLET PO SCH (08:18)
[2020-02-19] MEDS: FUROSEMIDE 20 MG TAB PO SCH (08:18)
[2020-02-19] MEDS: PREGABALIN 100 MG CAP (LYRICA) PO SCH ×3 (08:20→21:08)
[2020-02-19] MEDS: BACLOFEN 10 MG TAB PO SCH ×3 (08:20→21:08)
[2020-02-19] MEDS: METOPROLOL SUCC (TopROL XL) 100MG *XL* TAB PO SCH (08:21)
[2020-02-19] MEDS: KETOCONAZOLE 2% CREAM EXT SCH ×2 (08:21→21:09)
[2020-02-19] MEDS ORDERED: FLUCONAZOLE 50MG TABLET PO SCH (09:00)
[2020-02-19] MEDS ORDERED: predniSONE 50 MG TAB PO SCH (09:00)
[2020-02-19 10:00] VITALS: BP 130/90
--- NOTE | 2020-02-19 11:25 | IPNPDOC ---
Text Note Date of Service The patient was seen on 02/19/20. NOTE Subjective: -No acute issues overnight PHYSICAL EXAMINATION: HEENT: NCAT, PERRLA, EOMI, MMM, cushingoid CVS: Tachycardic, regular rhythm, no noted murmurs Lungs: CTAB, takes short shallow breaths Abdomen: Soft, non-distended, non-tender, central obesity Extremities: No extremity swelling, limbs intact Skin: scattered truncal and back rash, pustular appearing Neuro: 5/5 strength, CN II-XII grossly intact. 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 CT chest is showing chronic interstitial infiltrates and he had mild transaminitis per base line. Currently he is put on levaquin for atypical PNA and work up initiated with atypical vs fungal pna, Viral RCR and LDL with fungitell pending. 1. Dyspnea: As he is on chronic steroids on 40 mg recently for presumed CIPD , we will rule out atypical vs fungal pna. -Fungitell ordered. -s/p 5d of levaquin, dc'd 02/18/20 -COVID negative. -Taper prednisone dose to 40mg from 50mg. Will need a very long taper, though my suspicion is that he will need high dose steroids as he has become steroid dependent and appears to decompensate at doses <20mg. -Continue duo nebs and maintain saturation above 92. 2. Transaminitis with hyperbilirubinemia: -Tapia's sign negative. -Predominantly unconjugated. -CT abd pelvis with hepatic steatosis but no other culprit pathology 3. Upper trunk rash. 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 -Cont home med PO diflucan and topical ketoconazole for now. 4. HTN. -Cont home med Metoprolol. -Hold home med Lasix and HCTZ i/s/o VELIA. 5. Tinea Corporis. -Right thigh and neck tinea corporis. -Continue PO diflucan and topical ketoconazole for now. DVT prophylaxis: Lovenox Disposition : PT/OT eval for safe discharge planning. VS,Fishbone, I+O VS, Fishbone, I+O Vital Signs Date Time Temp Pulse Resp B/P (MAP) Pulse Ox O2 Delivery O2 Flow Rate FiO2 02/19/20 08:21 90 132/93 02/19/20 06:00 98.0 17 92 Nasal Cannula 3.0 I&O- Last 24 Hours up to 6 AM 02/19/20 06:00 Intake Total 2036 ml Output Total 2600 ml Balance -564 ml XIOMARA OLIVIA MD Feb 19, 2020 08:33
[2020-02-19 14:00] VITALS: BP 118/79
[2020-02-19] MEDS ORDERED: ONDANSETRON 4MG/2ML VIAL IV PRN (16:00)
[2020-02-19 18:00] VITALS: BP 131/96
[2020-02-19] MEDS: CYCLOBENZAPRINE 10MG TABLET PO SCH (21:09)
[2020-02-19] MEDS: traZODone 50 MG TAB PO SCH (21:09)
[2020-02-19 22:00] VITALS: BP 135/95
[2020-02-20 06:00] VITALS: BP 129/95
[2020-02-20] MEDS: ENOXAPARIN 40MG/0.4ML SYRINGE (J1650 PER 10MG) SC SCH (08:08)
[2020-02-20] MEDS: ASPIRIN 81 MG ENTERIC TAB PO SCH (08:09)
[2020-02-20] MEDS: HumaLOG INSULIN (NovoLOG) PER UNIT SC SCH ×4 (08:09→20:48)
[2020-02-20] MEDS: METOPROLOL SUCC (TopROL XL) 100MG *XL* TAB PO SCH (08:09)
[2020-02-20] MEDS: CALCIUM CARBONATE 500 MG CHEW U/D PO SCH ×3 (08:09→17:17)
[2020-02-20] MEDS: rOPINIRole 1MG TAB PO SCH ×3 (08:09→20:54)
[2020-02-20] MEDS: POTASSIUM CHLORIDE 10 MEQ SR TABLET PO SCH (08:10)
[2020-02-20] MEDS: SERTRALINE HCL 50 MG TAB PO SCH (08:10)
[2020-02-20] MEDS: FUROSEMIDE 20 MG TAB PO SCH ×2 (08:10→20:54)
[2020-02-20] MEDS: AMITRIPTYLINE 25 MG TAB PO SCH ×2 (08:10→20:54)
[2020-02-20] MEDS: DULoxetine 30 MG CAP (CYMBALTA) PO SCH (08:10)
[2020-02-20] MEDS: CALCITRIOL 0.25 MCG CAP (S0169) PO SCH (08:10)
[2020-02-20] MEDS: PANTOPRAZOLE 40MG TAB (PROTONIX) PO SCH ×2 (08:10→20:54)
[2020-02-20] MEDS: PREGABALIN 100 MG CAP (LYRICA) PO SCH ×3 (08:10→20:54)
[2020-02-20] MEDS: predniSONE 20 MG TAB PO SCH (08:10)
[2020-02-20] MEDS: BACLOFEN 10 MG TAB PO SCH ×3 (08:10→20:54)
[2020-02-20] MEDS: KETOCONAZOLE 2% CREAM EXT SCH ×2 (08:11→20:54)
[2020-02-20 10:00] VITALS: BP 122/91
[2020-02-20] MEDS: ACETAMINOPHEN TAB 650MG DOSE (2X325MG) PO PRN (10:06)
[2020-02-20 14:00] VITALS: BP 107/53
[2020-02-20 18:00] VITALS: BP 119/77
--- NOTE | 2020-02-20 19:06 | IPNPDOC ---
Text Note Date of Service The patient was seen on 02/20/20. NOTE Subjective: Patient stated that he is doing better today. He complains of 3 episodes of diarrhea. He denied any abdominal pain. PHYSICAL EXAMINATION: HEENT: NCAT, PERRLA, EOMI, MMM, cushingoid CVS: Tachycardic, regular rhythm, no noted murmurs Lungs: CTAB, takes short shallow breaths Abdomen: Soft, non-distended, non-tender, central obesity Extremities: No extremity swelling, limbs intact Skin: scattered truncal and back rash, pustular appearing Neuro: 5/5 strength, CN II-XII grossly intact. 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 However diagnosis of CIPD was not confirmed. CT chest is showing chronic interstitial infiltrates and he had mild transaminitis per base line. 1. Dyspnea As he is on chronic steroids on 40 mg recently for presumed CIPD. Patient chronically on 3 L of oxygen at home and his on his baseline for now Completed course of levofloxacin -Aspergillosis test negative -Immunological study negative -COVID negative. -Continue prednisone 40 mg -Continue duo nebs and maintain saturation above 92. Transaminitis Resolved Upper trunk rash Could be secondary to Bactrim follow up with dermatology outpatient. Cont home med PO Diflucan and topical ketoconazole for now tinea corporis HTN. Cont home med Metoprolol Tinea Corporis. Right thigh and neck tinea corporis. Continue antifungal medication VS,Fishbone, I+O VS, Fishbone, I+O Vital Signs Date Time Temp Pulse Resp B/P (MAP) Pulse Ox O2 Delivery O2 Flow Rate FiO2 02/20/20 18:00 98.2 96 18 119/77 (91) 96 Nasal Cannula 3.0 I&O- Last 24 Hours up to 6 AM 02/20/20 06:00 Intake Total 1440 ml Output Total 1500 ml Balance -60 ml BRYAN GARNER DO Feb 20, 2020 19:06
[2020-02-20] MEDS: CYCLOBENZAPRINE 10MG TABLET PO SCH (20:53)
[2020-02-20] MEDS: traZODone 50 MG TAB PO SCH (20:54)
[2020-02-20 22:00] VITALS: BP 117/76
[2020-02-21 06:00] VITALS: BP 115/70
[2020-02-21] MEDS: HumaLOG INSULIN (NovoLOG) PER UNIT SC SCH ×2 (07:28→12:12)
[2020-02-21] MEDS ORDERED: LACTOBACILLUS ACIDOPHILUS CAP (BACID) PO SCH (08:00)
[2020-02-21] MEDS: ENOXAPARIN 40MG/0.4ML SYRINGE (J1650 PER 10MG) SC SCH (08:20)
[2020-02-21 08:21] VITALS: BP 120/78
[2020-02-21] MEDS: AMITRIPTYLINE 25 MG TAB PO SCH (08:21)
[2020-02-21] MEDS: METOPROLOL SUCC (TopROL XL) 100MG *XL* TAB PO SCH (08:21)
[2020-02-21] MEDS: PANTOPRAZOLE 40MG TAB (PROTONIX) PO SCH (08:21)
[2020-02-21] MEDS: ASPIRIN 81 MG ENTERIC TAB PO SCH (08:21)
[2020-02-21] MEDS: CALCIUM CARBONATE 500 MG CHEW U/D PO SCH ×2 (08:21→12:12)
[2020-02-21] MEDS: CALCITRIOL 0.25 MCG CAP (S0169) PO SCH (08:21)
[2020-02-21] MEDS: SERTRALINE HCL 50 MG TAB PO SCH (08:21)
[2020-02-21] MEDS: PREGABALIN 100 MG CAP (LYRICA) PO SCH (08:21)
[2020-02-21] MEDS: POTASSIUM CHLORIDE 10 MEQ SR TABLET PO SCH (08:22)
[2020-02-21] MEDS: FUROSEMIDE 20 MG TAB PO SCH (08:22)
[2020-02-21] MEDS: DULoxetine 30 MG CAP (CYMBALTA) PO SCH (08:23)
[2020-02-21] MEDS: rOPINIRole 1MG TAB PO SCH (08:23)
[2020-02-21] MEDS: predniSONE 20 MG TAB PO SCH (08:23)
[2020-02-21] MEDS: BACLOFEN 10 MG TAB PO SCH (08:24)
[2020-02-21] MEDS: KETOCONAZOLE 2% CREAM EXT SCH (08:24)
[2020-02-21] MEDS ORDERED: hydroCHLOROthiazide 25 MG TAB PO SCH (09:00)
[2020-02-21] MEDS ORDERED: CALCIUM/VITAMIN D 500 MG TAB PO SCH (09:00)
[2020-02-21 10:00] VITALS: BP 155/96
[2020-02-21 10:20] LABS: BASO % 0.3 % (0.0-1.0); EOS # 0.1 10^3/uL (0.0-0.5); EOS % 0.5 % (0.0-3.0); HEMATOCRIT 43.2 % (42.0-52.0); HEMOGLOBIN 13.7 g/dl (13.5-17.5); LYMPH # 4.3 10^3/uL (1.5-5.0); LYMPH % 37.2 % (24.0-44.0); MEAN CORPUSCULAR HEMOGLOBIN 28.1 pg (27.0-33.0); MEAN CORPUSCULAR HGB CONC 31.7 g/dl (32.0-36.5); MEAN CORPUSCULAR VOLUME 88.5 fl (80.0-96.0); MONO # 0.7 10^3/uL (0.0-0.8); MONO % 5.9 % (0.0-5.0); NEUTROPHILS # 6.2 10^3/uL (1.5-8.5); NEUTROPHILS % 54.3 % (36.0-66.0); PLATELET COUNT, AUTOMATED 248 10^3/uL (150-450); RED BLOOD COUNT 4.88 10^6/uL (4.30-6.10); WHITE BLOOD COUNT 11.5 10^3/uL (4.0-10.0)
[2020-02-21 10:57] LABS: ALBUMIN 3.2 GM/DL (3.2-5.2); ALT/SGPT 66 U/L (12-78); BILIRUBIN,TOTAL 0.7 MG/DL (0.2-1.0); BLOOD UREA NITROGEN 19 MG/DL (7-18); CALCIUM LEVEL 8.8 MG/DL (8.5-10.1); CARBON DIOXIDE LEVEL 31 MEQ/L (21-32); CHLORIDE LEVEL 104 MEQ/L (98-107); CREATININE FOR GFR 0.97 MG/DL (0.70-1.30); GLOMERULAR FILTRATION RATE > 60.0 (>60); GLUCOSE, FASTING 109 MG/DL (70-100); MAGNESIUM LEVEL 2.2 MG/DL (1.8-2.4); POTASSIUM SERUM 3.7 MEQ/L (3.5-5.1); SODIUM LEVEL 140 MEQ/L (136-145); TOTAL PROTEIN 6.1 GM/DL (6.4-8.2)
--- NOTE | 2020-02-21 14:36 | DS.PDOC ---
Discharge Summary General Date of Admission Feb 13, 2020 at 21:07 Date of Discharge 02/21/20 Discharge Summary PROCEDURES PERFORMED DURING STAY: [None]. ADMITTING DIAGNOSES: Dyspnea Transaminitis Upper trunk rash HTN Tinea Corporis DISCHARGE DIAGNOSES: Dyspnea Transaminitis Upper trunk rash HTN Tinea Corporis COMPLICATIONS/CHIEF COMPLAINT: Dyspnea. 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 However diagnosis of CIPD was not confirmed. CT chest is showing chronic interstitial infiltrates and he had mild transaminitis per base line HOSPITAL COURSE: During hospital stay following issue addressed 1. Dyspnea As he is on chronic steroids on 40 mg recently for presumed CIPD. Patient chronically on 3 L of oxygen at home and his on his baseline for now Completed course of levofloxacin -Aspergillosis test negative -Immunological study negative -COVID negative. -Continue prednisone 20 mg -Continue duo nebs and maintain saturation above 92. Transaminitis Resolved Upper trunk rash Could be secondary to Bactrim follow up with dermatology outpatient. Cont home med PO Diflucan and topical ketoconazole for now tinea corporis HTN. Cont home med Metoprolol Tinea Corporis. Right thigh and neck tinea corporis. Continue antifungal medication DISCHARGE MEDICATIONS: Please see below. ALLERGIES: Please see below. PHYSICAL EXAMINATION ON DISCHARGE: VITAL SIGNS: Please see below. HEENT: NCAT, PERRLA, EOMI, MMM, cushingoid CVS: Tachycardic, regular rhythm, no noted murmurs Lungs: CTAB, takes short shallow breaths Abdomen: Soft, non-distended, non-tender, central obesity Extremities: No extremity swelling, limbs intact Skin: scattered truncal and back rash, pustular appearing Neuro: 5/5 strength, CN II-XII grossly intact. LABORATORY DATA: Please see below. IMAGING: [facility] NAME: ROLLY YANCEY DATE OF : 1975 BUSINESS NUMBER: [id number] AGE: 44 SEX: M REPORT #: [id number] ROOM: ED INP TECHNOLOGIST: MYRIAM DOCTOR: DEEPAK ZAMORA [employer] SALES SPECIALIST Ordered for Date&Time: 02/13/202125 cc: [~ rep ct ivnm] Service Date&Time: 02/13/20 2301 This report is in Signed status. Interpretation performed by [facility]. Thank you for having your radiology procedures performed at [facility] RADIOLOGY REPORT Date&Time printed: [~ rep prt dt last] [~ rep prt tm last] Page 2 of 2 [place] [id number] [facility] [id number] RADIOLOGY REPORT This report is in Signed status. Interpretation performed by [facility]. Thank you for having your radiology procedures performed at [facility] RADIOLOGY REPORT Date&Time printed: [~ rep prt dt last] [~ rep prt tm last] Page 1 of 1 Exam: CT Angiography Chest with Contrast Exam date and time: 02/13/20 (10:50pm) Age: 44 years old Clinical indication: SOB. Possible pulmonary embolism. TECHNIQUE: Imaging protocol: Computed tomographic angiography of the chest with intravenous contrast. 3D rendering (Not supervised by radiologist): MIP and/or 3D reconstructed images were created by the technologist. Radiation optimization: All CT scans at this facility use at least one of these dose optimization techniques: automated exposure control; mA and/or kV adjustment per patient size (includes targeted exams where dose is matched to clinical indication); or iterative reconstruction. Contrast material: Isovue 370 Contrast volume: 75 ml Contrast route: IV COMPARISON: CTA CHEST of 10/17/19 FINDINGS: Pulmonary arteries: Normal. No pulmonary emboli. Aorta: Unremarkable. No aortic aneurysm. No aortic dissection. Lungs: Diffusely hazy lung solis again seen. No dense consolidation. No masses. Pleural space: Unremarkable. No pneumothorax. No pleural effusions. Heart: Stable cardiomegaly. Unremarkable. No cardiomegaly. No pericardial effusion. Lymph nodes: Unremarkable. No enlarged lymph nodes. Mediastinum: Prominent mediastinal fat (unchanged). Bones/joints: Unremarkable. No acute fracture. Soft tissues: Unremarkable. Upper abdomen: Diffuse fatty infiltration of the liver. S/P cholecystectomy. IMPRESSION: No filling defects suspicious for pulmonary emboli are seen. There is no CT evidence of aortic dissection nor leakage. No aortic aneurysm is appreciated. Stable cardiomegaly. Diffusely hazy lung solis again seen -- possible hypoventilatory changes; possible edema; perhaps a mild nonspecific pneumonitis. Electronically signed by: Elvira Carpenter On 02/13/2020 23:31:35 PM DD: ELVIRA CARPENTER MD 02/13/202300 DT: IESHA 02/13/202330 DS: REMA 02/13/202330 [~ rep ct labl] PROGNOSIS: Fair ACTIVITY: [As tolerated]. DIET: Regular DISPOSITION: 01 Home, Self-Care. DISCHARGE INSTRUCTIONS: Continue using BiPAP ITEMS TO FOLLOWUP ON ON OUTPATIENT: Follow-up with cigar making supervisor, neurologist and PCP DISCHARGE CONDITION: [Stable]. TIME SPENT ON DISCHARGE: Greater than 40 minutes. Vital Signs/I&Os Vital Signs Date Time Temp Pulse Resp B/P (MAP) Pulse Ox O2 Delivery O2 Flow Rate FiO2 02/21/20 10:00 97.9 155/96 (115) 02/21/20 09:00 3.0 02/21/20 08:21 94 02/21/20 06:00 16 94 Nasal Cannula I&O- Last 24 Hours up to 6 AM 02/21/20 05:59 Intake Total 2520 ml Output Total 2450 ml Balance 70 ml Laboratory Data Labs 24H Laboratory Tests 2 02/20/20 16:25: Bedside Glucose (Misc Panel) 169H 02/20/20 20:35: Bedside Glucose (Misc Panel) 208H 02/21/20 06:23: Bedside Glucose (Misc Panel) 98 02/21/20 10:04: Immature Granulocyte % (Auto) 1.8, Neutrophils (%) (Auto) 54.3, Lymphocytes (%) (Auto) 37.2, Monocytes (%) (Auto) 5.9H, Eosinophils (%) (Auto) 0.5, Basophils (%) (Auto) 0.3, Neutrophils # (Auto) 6.2, Lymphocytes # (Auto) 4.3, Monocytes # (Auto) 0.7, Eosinophils # (Auto) 0.1, Basophils # (Auto) 0.0, Nucleated Red Blood Cells % (auto) 0.0, Anion Gap 5L, Glomerular Filtration Rate > 60.0, Calcium Level 8.8, Magnesium Level 2.2, Total Bilirubin 0.7, Aspartate Amino Transf (AST/SGOT) 19, Alanine Aminotransferase (ALT/SGPT) 66, Alkaline Phosphatase 94, Total Protein 6.1L, Albumin 3.2, Albumin/Globulin Ratio 1.1 02/21/20 11:14: Bedside Glucose (Misc Panel) 154H CBC/BMP Laboratory Tests 02/21/20 10:04 FSBS Laboratory Tests Test 02/20/20 16:25 02/20/20 20:35 02/21/20 06:23 02/21/20 11:14 Range/Units Bedside Glucose (Misc Panel) 169 208 98 154 70-105 MG/DL Microbiology Microbiology 02/14/20 Blood Culture - Final, Complete NO GROWTH AFTER 5 DAYS 02/13/20 Respiratory Virus Panel (PCR) (PHYLLIS) - Final, Complete Discharge Medications Scheduled Amitriptyline HCl (Amitriptyline HCl) 25 Mg Tablet, 25 MG PO BID, (Reported) Aspirin (Aspirin EC) 81 Mg Tablet.dr, 81 MG PO DAILY, (Reported) Baclofen (Baclofen) 10 Mg Tablet, 10 MG PO TID, (Reported) Calcitriol (Calcitriol) 0.25 Mcg Capsule, 0.25 MCG PO DAILY, (Reported) Calcium Carbonate (Tums) 200 Mg Tab.chew, 1,000 MG PO WM, (Reported) Cyclobenzaprine HCl (Cyclobenzaprine HCl) 5 Mg Tablet, 5 MG PO QHS, (Reported) Duloxetine Hcl (Duloxetine HCl) 60 Mg Capsule.dr, 60 MG PO DAILY, (Reported) Ergocalciferol (Vitamin D2) (Vitamin D2) 50,000 Units Cap, 50,000 UNITS PO QWEEK, (Reported) MONDAYS Fluconazole (Fluconazole) 150 Mg Tablet, 150 MG PO 1XWK, (Reported) WEDNESDAYS Furosemide (Furosemide) 20 Mg Tablet, 20 MG PO DAILY, (Reported) Hydrochlorothiazide (Hydrochlorothiazide) 25 Mg Tablet, 25 MG PO DAILY, (Reported) Ketoconazole (Ketoconazole) 15 Gm Cream..g., 1 DOSE EXT BID, (Reported) USES ON TORSO Metoprolol Succinate (Metoprolol Succinate) 100 Mg Tab.er.24h, 100 MG PO DAILY, (Reported) Pantoprazole Sodium (Pantoprazole Sodium) 40 Mg Tablet.dr, 40 MG PO BID, (Reported) Potassium Chloride (Potassium Chloride) 10 Meq Tab.er.prt, 20 MEQ PO DAILY, (Reported) Prednisone (Prednisone) 20 Mg Tablet, 20 MG PO DAILY, (Reported) Pregabalin (Lyrica) 100 Mg Capsule, 100 MG PO TID, (Reported) Ropinirole HCl (Ropinirole HCl) 1 Mg Tablet, 1 MG PO TID, (Reported) Sertraline HCl (Sertraline HCl) 50 Mg Tablet, 50 MG PO DAILY, (Reported) Trazodone HCl (Trazodone HCl) 50 Mg Tablet, 75 MG PO QHS, (Reported) Scheduled PRN Acetaminophen (Acetaminophen) 325 Mg Tablet, 650 MG PO Q6H PRN for PAIN, (Reported) Ibuprofen (Ibuprofen) 200 Mg Tablet, 800 MG PO TID PRN for PAIN, (Reported) Allergies Coded Allergies: TAPE (Verified Allergy, Intermediate, HIVES, 04/03/19) PLASTIC TAPE, PAPER TAPE OK silver (Verified Allergy, Intermediate, HIVES, 04/03/19) BRYAN GARNER DO Feb 21, 2020 14:36
--- NOTE | 2020-02-25 21:01 | ECGEPIP ---
[facility] - ED Test Date: 2020-02-13 Pat Name: ROLLY YANCEY Department: Room: [place] [address] Gender: Male Barrel Header: FLORIN : 1975 Requested By: Ping Pacheco Order Number: [id number] Reading MD: Matias Tomas Measurements Intervals B[place]um Rate: 107 P: 48 MN: 156 QRS: 6 QRSD: 110 T: 36 QT: 338 QTc: 452 Interpretive Statements SINUS TACHYCARDIA ARTIFACT NO PREVIOUS SEE SCANNED DOWNTIME REPORT
[2021-02-12] MEDS ORDERED: CYCLOBENZAPRINE 10MG TABLET PO SCH (21:00)
== END 2020-02-21 13:10 | disposition home health service (06) | DRG 144 ==
LOC: M ED 18:23 → M ED INP 21:07 → ENRESERV 23:24 → M ICU 23:57 → M MSPAV 02-14 11:04
PROVIDERS: ADMIT Internal Medicine; ATTEND Internal Medicine
DX: R06.00 Dyspnea, unspecified (principal); R74.0 Nonspecific elevation of levels of transaminase and lactic acid dehydrogenase [LDH]; I10 Essential (primary) hypertension; F32.9 Major depressive disorder, single episode, unspecified; G25.81 Restless legs syndrome; K21.9 Gastro-esophageal reflux disease without esophagitis; N17.9 Acute kidney failure, unspecified; L27.0 Generalized skin eruption due to drugs and medicaments taken internally; T37.0X5A Adverse effect of sulfonamides, initial encounter; B35.4 Tinea corporis; Z79.52 Long term (current) use of systemic steroids; Z79.82 Long term (current) use of aspirin; Z79.899 Other long term (current) drug therapy; Z91.048 Other nonmedicinal substance allergy status; Z99.81 Dependence on supplemental oxygen

== ENCOUNTER 2020-03-27 19:25 | Emergency (ER) | payer BC, OTHER ==
[~2020-03-27] VITALS: Ht 172.7 cm; Wt 112.7 kg
[~2020-03-27 19:25] MED LIST changes: +CYCL5TAB PO; +DULO1CAP6 PO; +FLUC150T PO; +IBUP-1764 PO; +KETO2CR EXT; +POTA10TA17 PO; +PREG100CA PO
[2020-03-27] MEDS ORDERED: methylPREDNISolone 125MG 2ML VIAL IV ONE (19:45)
[2020-03-27] MEDS ORDERED: ACET500C10 PO (19:51)
[2020-03-27] MEDS ORDERED: VALS1TAB67 (19:52)
--- NOTE | 2020-03-27 20:14 | REPVR ---
PROCEDURE INFORMATION: Exam: XR Chest, 1 View Exam date and time: 03/27/2020 8:01 PM Age: 44 years old Clinical indication: Cough; Additional info: Dyspnea/cough TECHNIQUE: Imaging protocol: XR of the chest Views: 1 view. COMPARISON: CR PORTABLE CHEST X-RAY 02/13/2020 7:08 PM FINDINGS: Lungs: Suboptimal inspiratory effort. Bibasilar atelectasis versus infiltrates of other etiology. Pleural space: Unremarkable. No pleural effusion. No pneumothorax. Heart/Mediastinum: Unremarkable. No cardiomegaly. Bones/joints: Unremarkable. IMPRESSION: Bibasilar atelectasis versus infiltrates of other etiology. Electronically signed by: Johnny Santa On 03/27/2020 20:13:55 PM
[2020-03-27 20:21] LABS: BASO # 0.1 10^3/uL (0.0-0.2); BASO % 0.6 % (0.0-1.0); EOS # 0.1 10^3/uL (0.0-0.5); EOS % 1.7 % (0.0-3.0); HEMATOCRIT 44.1 % (42.0-52.0); HEMOGLOBIN 14.6 g/dl (13.5-17.5); LYMPH % 36.7 % (24.0-44.0); MEAN CORPUSCULAR HEMOGLOBIN 28.6 pg (27.0-33.0); MEAN CORPUSCULAR HGB CONC 33.1 g/dl (32.0-36.5); MEAN CORPUSCULAR VOLUME 86.5 fl (80.0-96.0); MONO # 0.7 10^3/uL (0.0-0.8); MONO % 8.5 % (0.0-5.0); NEUTROPHILS # 4.2 10^3/uL (1.5-8.5); PLATELET COUNT, AUTOMATED 272 10^3/uL (150-450)
[2020-03-27 20:46] LABS: ALBUMIN 3.9 GM/DL (3.2-5.2); ALT/SGPT 58 U/L (12-78); BILIRUBIN,DIRECT 0.1 MG/DL (0.0-0.2); BILIRUBIN,TOTAL 0.7 MG/DL (0.2-1.0); BLOOD UREA NITROGEN 15 MG/DL (7-18); CALCIUM LEVEL 9.3 MG/DL (8.5-10.1); CARBON DIOXIDE LEVEL 29 MEQ/L (21-32); CHLORIDE LEVEL 104 MEQ/L (98-107); CREATININE FOR GFR 1.16 MG/DL (0.70-1.30); GLOMERULAR FILTRATION RATE > 60.0 (>60); GLUCOSE, FASTING 140 MG/DL (70-100); NT-PRO BNP < 5 PG/ML (<125); POTASSIUM SERUM 3.4 MEQ/L (3.5-5.1); SODIUM LEVEL 140 MEQ/L (136-145)
--- NOTE | 2020-03-27 22:07 | REPVR ---
PROCEDURE INFORMATION: Exam: CT Chest Without Contrast Exam date and time: 03/27/2020 9:38 PM Age: 44 years old Clinical indication: Abnormal findings; Abnormal radiologic exam of lung or chest; Additional info: ? Infiltrates on cxr TECHNIQUE: Imaging protocol: Computed tomography of the chest without contrast. 3D rendering (Not supervised by radiologist): MIP and/or 3D reconstructed images were created by the technologist. Radiation optimization: All CT scans at this facility use at least one of these dose optimization techniques: automated exposure control; mA and/or kV adjustment per patient size (includes targeted exams where dose is matched to clinical indication); or iterative reconstruction. COMPARISON: CT ANGIO CHEST 02/13/2020 10:47 PM FINDINGS: Lungs: Bilateral pulmonary parenchymal opacities, mostly ground-glass and located in the mid and lower lung zones. Findings similar that demonstrated on the prior study of 02/13/2020. Differential diagnosis includes mosaic perfusion, multifocal pneumonitis and or atelectasis. Pleural space: Unremarkable. No pneumothorax. No pleural effusion. Heart: Borderline cardiomegaly. Mediastinal space: Mediastinal lipomatosis. Aorta: Unremarkable. No aortic aneurysm. Lymph nodes: Unremarkable. No enlarged lymph nodes. Bones/joints: Unremarkable. No acute fracture. Soft tissues: Cholecystectomy. Otherwise unremarkable. Other findings: Suboptimal inspiratory effort. IMPRESSION: 1. Bilateral pulmonary parenchymal opacities, mostly ground-glass and located in the mid and lower lung zones. Findings similar that demonstrated on the prior study of 02/13/2020. Differential diagnosis includes mosaic perfusion, multifocal pneumonitis and or atelectasis. 2. Borderline cardiomegaly. Electronically signed by: Johnny Santa On 03/27/2020 22:07:01 PM
[2020-03-27 22:39] VITALS: O2SAT 93
[2020-03-27 23:07] VITALS: BP 119/80
--- NOTE | 2020-03-28 08:08 | ECGEPIP ---
[facility] - ED Test Date: 2020-03-27 Pat Name: ROLLY YANCEY Department: Room: - Gender: Male Pond Scaler: ABRIL : 1975 Requested By: Gian Stoner Order Number: [id number] Reading MD: Matias Tomas Measurements Intervals [place] Rate: 95 P: 47 TX: 159 QRS: -13 QRSD: 123 T: 15 QT: 357 QTc: 450 Interpretive Statements SINUS RHYTHM MODERATE INTRAVENTRICULAR CONDUCTION DELAY Rate decreased from tracing done 02-13-20 Electronically Signed on 03-28-2020 8:08:08 EDT by Matias Tomas
--- NOTE | 2020-03-30 10:59 | ED PDOC ---
Post-Departure Follow-Up ct chest faxed to dr davila for fu Gavino Hameed MD Mar 30, 2020 10:59
== END 2020-03-27 23:30 | disposition home or self-care (01) ==
LOC: M ED 19:25
DX: J45.909 Unspecified asthma, uncomplicated (principal); G61.81 Chronic inflammatory demyelinating polyneuritis; Z99.81 Dependence on supplemental oxygen; I10 Essential (primary) hypertension; K21.9 Gastro-esophageal reflux disease without esophagitis; F32.9 Major depressive disorder, single episode, unspecified; Z87.442 Personal history of urinary calculi; Z91.048 Other nonmedicinal substance allergy status; Z79.899 Other long term (current) drug therapy; Z79.82 Long term (current) use of aspirin; Z79.52 Long term (current) use of systemic steroids
CPT/HCPCS: 36600; 71045; 71250; 80047; 80048; 80076; 82803; 83605; 83880; 85025; 87040; 93005; 93041; 96374; 99284; J2930

== ENCOUNTER → 2020-04-22 | Outpatient (CLI) | payer OTHER ==
[~2020-04-22] MED LIST changes: +ACET500C10 PO; +VALS1TAB67
--- NOTE | 2020-04-23 03:20 | REP ---
INDICATION: ABNORMAL PFT'S COMPARISON: 03/27/2020 TECHNIQUE: PA and lateral. FINDINGS: Examination is limited by poor inspiratory effort and basilar atelectasis (left greater than right) cannot be excluded. No definite effusion. No pneumothorax. Mediastinum and cardiac silhouette are grossly normal and stable. Skeletal structures intact. IMPRESSION: Limited by poor inspiratory effort. Mild basilar atelectasis suggested (left greater than right). <Electronically signed by Alex Garsia > 04/23/20 1151
== END ==
LOC: M RAD 12:34 → M LAB 12:34
PROVIDERS: ATTEND Internal Medicine Pulmonary Disease
DX: R94.2 Abnormal results of pulmonary function studies (principal)

== ENCOUNTER → 2020-04-22 | Outpatient (REF) | payer OTHER ==
[2020-04-22 18:03] LABS: ALBUMIN 4.1 GM/DL (3.2-5.2); ALT/SGPT 61 U/L (12-78); BILIRUBIN,TOTAL 0.9 MG/DL (0.2-1.0); BLOOD UREA NITROGEN 15 MG/DL (7-18); CALCIUM LEVEL 9.2 MG/DL (8.5-10.1); CARBON DIOXIDE LEVEL 27 MEQ/L (21-32); CHLORIDE LEVEL 104 MEQ/L (98-107); CREATININE FOR GFR 1.09 MG/DL (0.70-1.30); GLOMERULAR FILTRATION RATE > 60.0 (>60); GLUCOSE, FASTING 114 MG/DL (70-100); MAGNESIUM LEVEL 2.1 MG/DL (1.8-2.4); POTASSIUM SERUM 3.8 MEQ/L (3.5-5.1); SODIUM LEVEL 141 MEQ/L (136-145); TOTAL PROTEIN 7.4 GM/DL (6.4-8.2)
== END ==
LOC: M LAB REF 17:06
PROVIDERS: ATTEND Internal Medicine Pulmonary Disease
DX: R94.2 Abnormal results of pulmonary function studies (principal)

== ENCOUNTER 2020-04-30 15:26 | Inpatient (IN) | payer OTHER ==
[~2020-04-30] VITALS: Ht 172.7 cm; Wt 111.7 kg
--- NOTE | 2020-04-30 17:47 | REP ---
INDICATION: chest pain. COMPARISON: 04/22/2020 as well as other prior exams. TECHNIQUE: SINGLE PORTABLE AP VIEW OF THE CHEST WAS PERFORMED. FINDINGS: Mild bibasilar interstitial and alveolar opacities appear similar to the prior studies. There is mild cardiomegaly. The mediastinal silhouette is unchanged. IMPRESSION: Mild increased interstitial and alveolar densities bilaterally in the lung bases compatible with chronic fibro atelectasis and/or infiltrate <Electronically signed by Wagner Fitzpatrick > 04/30/20 0929
[2020-04-30 18:10] LABS: BASO # 0.1 10^3/uL (0.0-0.2); BASO % 0.8 % (0.0-1.0); EOS # 0.2 10^3/uL (0.0-0.5); EOS % 2.6 % (0.0-3.0); HEMATOCRIT 39.1 % (42.0-52.0); HEMOGLOBIN 12.9 g/dl (13.5-17.5); LYMPH # 2.7 10^3/uL (1.5-5.0); LYMPH % 33.3 % (24.0-44.0); MEAN CORPUSCULAR HEMOGLOBIN 28.1 pg (27.0-33.0); MEAN CORPUSCULAR VOLUME 85.2 fl (80.0-96.0); MONO # 0.6 10^3/uL (0.0-0.8); MONO % 6.9 % (0.0-5.0); NEUTROPHILS # 4.5 10^3/uL (1.5-8.5); PLATELET COUNT, AUTOMATED 273 10^3/uL (150-450); RED BLOOD COUNT 4.59 10^6/uL (4.30-6.10)
[2020-04-30 18:41] LABS: ALBUMIN 4.2 GM/DL (3.2-5.2); ALT/SGPT 57 U/L (12-78); BILIRUBIN,DIRECT 0.2 MG/DL (0.0-0.2); BILIRUBIN,TOTAL 1.1 MG/DL (0.2-1.0); BLOOD UREA NITROGEN 17 MG/DL (7-18); CALCIUM LEVEL 9.6 MG/DL (8.5-10.1); CARBON DIOXIDE LEVEL 27 MEQ/L (21-32); CHLORIDE LEVEL 104 MEQ/L (98-107); CREATININE FOR GFR 1.09 MG/DL (0.70-1.30); GLOMERULAR FILTRATION RATE > 60.0 (>60); GLUCOSE, FASTING 94 MG/DL (70-100); LIPASE 75 U/L (73-393); POTASSIUM SERUM 3.5 MEQ/L (3.5-5.1); SODIUM LEVEL 140 MEQ/L (136-145); TOTAL PROTEIN 7.3 GM/DL (6.4-8.2)
[2020-04-30] MEDS ORDERED: COMBIVENT RESPIMAT 100-20MCG INHALER 4GM INH ONE (20:45)
[2020-04-30] MEDS ORDERED: methylPREDNISolone 40MG 1ML VIAL IV ONE (21:30)
[2020-04-30] MEDS ORDERED: ISOVUE-370 76% 100ML VIAL As Ordered ONE (21:39)
--- NOTE | 2020-04-30 22:24 | REPVR ---
PROCEDURE INFORMATION: Exam: CT Angiography Chest Without And With Contrast Exam date and time: 04/30/2020 9:51 PM Age: 44 years old Clinical indication: Chest pain; Type not specified; Additional info: Chest pain/sob TECHNIQUE: Imaging protocol: Computed tomographic angiography of the chest without and with intravenous contrast. 3D rendering (Not supervised by radiologist): MIP and/or 3D reconstructed images were created by the technologist. Radiation optimization: All CT scans at this facility use at least one of these dose optimization techniques: automated exposure control; mA and/or kV adjustment per patient size (includes targeted exams where dose is matched to clinical indication); or iterative reconstruction. Contrast material: ISOVUE 370; Contrast volume: 75 ml; Contrast route: INTRAVENOUS (IV); COMPARISON: CT ANGIO CHEST 02/13/2020 10:47 PM FINDINGS: Pulmonary arteries: No central pulmonary embolism is seen. Evaluation of peripheral pulmonary arteries is limited due to excessive motion. Aorta: Unremarkable. No aortic aneurysm. No aortic dissection. Lungs: Mild dependent atelectasis in both lungs. No masses or airspace consolidation. Pleural space: Unremarkable. No pneumothorax. No pleural effusion. Heart: Mild cardiomegaly. No pericardial effusion. Lymph nodes: Unremarkable. No enlarged lymph nodes. Liver: The liver is low attenuation indicating hepatic steatosis. Bones/joints: Unremarkable. No acute fracture. Soft tissues: Unremarkable. IMPRESSION: 1. Hepatic steatosis. 2. No central pulmonary embolism is seen. Evaluation of peripheral pulmonary arteries is limited due to excessive motion. Electronically signed by: Rico Gastelum On 04/30/2020 22:23:35 PM
[2020-04-30] MEDS ORDERED: PREG300C PO (22:38)
[2020-04-30] MEDS ORDERED: ACET50CA PO (22:38)
[2020-04-30] MEDS ORDERED: DULO20CA27 PO (22:38)
[2020-04-30] MEDS ORDERED: NYST1POW9 TOP (22:38)
[2020-04-30] MEDS ORDERED: BACT800T5 PO (22:38)
[2020-04-30] MEDS ORDERED: MELA10CA2 PO (22:38)
[2020-04-30] MEDS ORDERED: VALS1TAB67 PO (22:38)
[2020-04-30] MEDS ORDERED: TOPI25TA10 PO (22:44)
[2020-04-30] MEDS ORDERED: KETO2SHA8 TOP (22:44)
[2020-04-30] MEDS ORDERED: PATIENT COMMENT (22:45)
--- NOTE | 2020-04-30 23:59 | HPEPDOC ---
[facility] Medical History & Physical Date of Admission Apr 30, 2020 Date of Service: Apr 30, 2020 Primary Care Physician: JATINDER ASHBY DO Attending Physician: KIM NEWBERRY MD History and Physical CHIEF COMPLAINT: SOB, Chest pain HISTORY OF PRESENT ILLNESS: Patient is a 44-year-old male, with a complicated a past medical history, who presented to the emergency department the afternoon of 04/30/2020 with a chief complaint of increasing shortness of breath and chest pain that has been gradually getting worse over the last 48 hours. Of historical note, patient follows with both pulmonology locally and neurology at [facility] for progressive weakness and hypoxia. Despite extensive workup, a definitive diagnosis has yet to be made. Patient has been on chronic steroids for over a year and a half. As of recent, attempted been made to taper the patient down. He is currently on prednisone 20 mg daily. When he has been reduced to this low in the past, similar episodes have occurred with increasing shortness of breath and increasing oxygen demand. Patient normally utilizes 3 L of oxygen via nasal cannula at home. He reports that he had had to increase that to 5 prior to presentation. In the emergency department, patient was found to be afebrile, pulse of 100, respiratory rate of 13, blood pressure of 139/89 and maintaining an oxygen saturation of 96% on nasal cannula 3 L. CBC evaluation demonstrates a white cell count of 8, H/H of 12.9/39.1. Chemistries within normal limits, including a BUS/CR of 17/1.09. COVID screen negative. A point of care blood gas was obtained and indicated a respiratory alkalosis with a a pH of 7.63, PCO2 of 19, PO2 of 54. Serial troponins were followed and liked the patient's chest pain. All were found to be negative. No significant EKG findings. Chest x-ray indicated stable chronic changes. No PE on CT angiogram. Patient was given a single dose of IV Solu-Medrol with little improvement in his respiratory symptoms. Given the above findings, the hospitalist team was contacted for admission. PAST MEDICAL HISTORY: Question of CIDP/POEMS syndrome, prior received IVIG and high dose steroid HTN Depression Nephrolithiasis B/L dependent atelectasis, left more than right Fatty Liver Disease RLS GERD Chronic steroid use/PCP prophylaxis PAST SURGICAL HISTORY: Appendectomy Cholescystectomy Inguinal hernia repair SOCIAL HISTORY: Patient is single, lives at home in [facility] Patient is disabled Reports social alcohol use, 1-2 drinks per month Patient is a lifelong nonsmoker Denies any illicit or IV drug use No recent travel or known sick exposures. FAMILY HISTORY: Family history noncontributory ALLERGIES: Tape, Silver, Diamox REVIEW OF SYSTEMS: General: Denies fevers, night sweats, chills, trouble sleeping, fatigue, changes in weight Head: Reports persistent, low-grade headache EENT: Denies ear ache, changes in hearing or vision, trouble swallowing, sore throat Cardiac: Denies chest pain, palpitations, tachycardia Pulm: SOB with activity (3L O2 via NC at home), denies orthopnea, coughing GI: Denies N/V, reflux, abdominal pain, diarrhea or constipation : Denies difficulty urinating MSK: Reports generalized muscle weakness, aches and pains, unchanged from prior examination. Endocrine: Denies polyuria, polydipsia Neuro: Reports numbness/tingling in upper/lower extremities, chronic and unchan ged HOME MEDICATIONS: Please see below. PHYSICAL EXAMINATION: VITAL SIGNS: Please see below GENERAL APPEARANCE: Patient is interviewed and examined in the emergency department. Patient appears nontoxic. He is visibly anxious. HEENT: Normal cephalic, atraumatic, EOMI, no scleral icterus or conjunctival injection. Mucous membranes are moist, fair oral hygiene, no JVD CARDIOVASCULAR: Regular rate and rhythm free of murmurs gallops or rubs LUNGS: End expiratory wheezing throughout. Poor inspiratory effort. No dullness to percussion. No conversational dyspnea MSK: Reproducible pain to palpation at the costochondral junction of ribs 7 and 8 in the right. ABDOMEN: Obese, nontender, nondistended, no overlying skin changes. EXTREMITIES: Bilateral braces born on the lower extremities. Lower extremity edema or calf tenderness bilaterally. Both radial and posterior tibial pulses are 2+ bilaterally. No clubbing noted. NEUROLOGICAL: No facial droop, aphasia or dysarthria. 4 out of 5 strength t hroughout, consistent with previous outpatient examinations. PSYCHIATRIC: Patient appears very anxious, mood and affect are congruent LABORATORY DATA: See below. IMAGING: Chest x-ray (04/30/20): Mild increased interstitial and alveolar densities bilateral lung bases compatible with chronic fiberoatelectasis and/or infiltrate. CT angiogram chest (04/30/20): Hepatic steatosis, no central pulmonary embolism seen. Evaluation of peripheral pulmonary arteries limited due to excessive motion. ASSESSMENT: Patient is a 44-year-old male, complicated past medical history with an unknown diagnosis resulting in progressive weakness and hypoxia. Patient has been followed by both local pulmonology and neurology at [facility]. Unfortunately, a diagnosis to explain the patient's after mentioned symptoms has yet to have been made. He has been on chronic steroids for the better part of a year and a half. Over the last 6 weeks, and the guidance of his roll over press operator, patient's steroids have been steadily tapered. Patient is currently on 20 mg of prednisone by mouth. Patient does carry a history of hospitalization when his steroid dose is lowered to around 20. Patient presented to the emergency department the afternoon of 05/01/20 with a 2 day history of increasing shortness of breath and sternal chest pain. Vitals were found to be stable. Laboratory examination did not reveal any significant changes. Serial troponins and EKGs ruled out ACS. CT angiogram was without evidence of PE. Chest x-ray demonstrated chronic changes. Respiratory alkalosis noted on ABG. Examination relatively benign other than reproducible pain with palpation of the costochondral junction of ribs 7 and 8. Only forced expiratory wheezing appreciated on auscultation. Current presentation appears, by all accounts, consistent with prior hospitalizations in which symptoms improved only after she has returned to a higher steroid dose. I highly suspect that the patient's mood symptoms are also playing a significant role in his presentation. Patient shares that earlier this morning, he was made aware that his insurance would not cover a referral made by his roll over press operator to the [facility]. He seems extremely upset by this. He is currently on a moderate dose of sertraline for his mood symptoms. Given the above, including the patient's continuing hypoxemia, he will be admitted for further evaluation and monitoring. PLAN: Respiratory Alkalosis, 2/2 to muscle weakness -PH of 7.632, pCO2 of 19, pO2 of 54, 4L via NC maintaining a saturation of 95%. -PCU adm, tele monitoring, titrate oxygen to maintain saturation >94%. -CPAP can be considered, though patient has not tolerated this in the past. -Patient has had extensive neurologic work-up at [facility], and extensive pulmonary workup without any definitive diagnosis. -Forced end expiratory wheezing on examination tonight, lungs otherwise clear, no indication of active infection, Pro-courtney pending. Chronic Steroid Use -Follows closely with pulmonology and has been undergoing a monitor steroid taper for the last 6 weeks. Patient previously on 60 mg daily. Currently down to 20 mg daily. -Similar presentation in 01/29 following a more rapid taper. -Given 40 mg Solumedrol in the ED. -Patient will likely require a temporary increase. Attempt to continue PO Prednisone. Sternal Chest Pain, suspect costochondritis -Pain is reproducible to palpation of the costochondral junction -Ibuprofen for the pain/discomfort. -Serial troponin negative, unchanged EKG. Anxiety/Depression -Mood symptoms appear to be related to progressive symptoms without definitive diagnosis. -Patient shares that he was informed today that his insurance would not cover [facility] (to which he was referred to via pulmonology). -Optimizing patient's mood symptoms may critical role. -Continue on home SSRI, Sertraline 50 mg. -Complicating care HTN -Normotensive, continue home HCTZ, Metoprolol GERD -Protonix, Tums -Mylanta PRN RLS -Ropinirole, Lyrica Insomnia -Trazodone, plan to taper outpatient PARISH -Noncompliance with CPAP at home Obesity -BMI of 38.8. Complicating care CODE STATUS: Full code DVT PROPHYLAXIS: Lovenox DISPOSITION: Anticipate 2 night stay Vital Signs Vital Signs Date Time Temp Pulse Resp B/P (MAP) Pulse Ox O2 Delivery O2 Flow Rate FiO2 04/30/20 23:35 85 92 Nasal Cannula 4.0 04/30/20 23:30 127/78 (94) 04/30/20 22:20 22 04/30/20 15:26 99.2 Laboratory Data Labs 24H Laboratory Tests 2 04/30/20 16:49: POC Troponin I (Misc) 0.00 04/30/20 17:56: Immature Granulocyte % (Auto) 0.4, Neutrophils (%) (Auto) 56.0, Lymphocytes (%) (Auto) 33.3, Monocytes (%) (Auto) 6.9H, Eosinophils (%) (Auto) 2.6, Basophils (%) (Auto) 0.8, Neutrophils # (Auto) 4.5, Lymphocytes # (Auto) 2.7, Monocytes # (Auto) 0.6, Eosinophils # (Auto) 0.2, Basophils # (Auto) 0.1, Nucleated Red Blood Cells % (auto) 0.0, Anion Gap 9, Glomerular Filtration Rate > 60.0, Calcium Level 9.6, Total Bilirubin 1.1H, Direct Bilirubin 0.2, Aspartate Amino Transf (AST/SGOT) 34, Alanine Aminotransferase (ALT/SGPT) 57, Alkaline Phosphatase 98, Total Protein 7.3, Albumin 4.2, Albumin/Globulin Ratio 1.4, Lipase 75 04/30/20 18:40: POC Troponin I (Misc) 0.00 04/30/20 20:32: POC Troponin I (Misc) 0.00 04/30/20 21:25: Coronavirus (COVID-19)(PCR) NEGATIVE 04/30/20 22:27: POC pH (Misc Panel) 7.632*H, POC Base Excess (Misc Panel) -1.0, POC Saturated Percent O2 (Misc) 94L, POC pO2 (Misc Panel) 54.0L, POC pCO2 (Misc Panel) 19.0*L, POC HCO3 (Misc Panel) 20.1L, POC Total CO2 (Misc Panel) 21.0L CBC/BMP Laboratory Tests 04/30/20 17:56 Home Medications Scheduled Acetazolamide (Acetazolamide) 500 Mg Capsule.er, 500 MG PO BID Aspirin (Aspirin EC) 81 Mg Tablet.dr, 81 MG PO DAILY Baclofen (Baclofen) 10 Mg Tablet, 10 MG PO BID Calcitriol (Calcitriol) 0.25 Mcg Capsule, 0.25 MCG PO DAILY Calcium Carbonate (Tums) 200 Mg Tab.chew, 1,000 MG PO WM Duloxetine HCl (Duloxetine HCl) 20 Mg Capsule.dr, 20 MG PO TAPER 40MG FOR 1 WEEK, 20MG FOR 1 WEEK, THEN STOP. UNSURE WHERE PATIENT IS ON TAPER. Ergocalciferol (Vitamin D2) (Vitamin D2) 50,000 Units Cap, 50,000 UNITS PO QWEEK MONDAYS Furosemide (Furosemide) 20 Mg Tablet, 20 MG PO DAILY Hydrochlorothiazide (Hydrochlorothiazide) 25 Mg Tablet, 25 MG PO DAILY Ketoconazole (Ketoconazole) 120 Ml Shampoo, 1 DOSE TOP Q2D Melatonin (Melatonin) 10 Mg Capsule, 10 MG PO QHS Metoprolol Succinate (Metoprolol Succinate) 100 Mg Tab.er.24h, 100 MG PO DAILY Pantoprazole Sodium (Pantoprazole Sodium) 40 Mg Tablet.dr, 40 MG PO BID Potassium Chloride (Potassium Chloride) 10 Meq Tab.er.prt, 20 MEQ PO DAILY Prednisone (Prednisone) 20 Mg Tablet, 20 MG PO DAILY Pregabalin (Pregabalin) 300 Mg Capsule, 300 MG PO BID Ropinirole HCl (Ropinirole HCl) 1 Mg Tablet, 1 MG PO QHS Sertraline HCl (Sertraline HCl) 50 Mg Tablet, 50 MG PO DAILY Sulfamethoxazole/Trimethoprim (Bactrim Ds Tablet) 1 Each Tablet, 1 TAB PO 3XW MONDAY, MONDAY AND MONDAY Topiramate (Topiramate) 25 Mg Tablet, 25 MG PO TAPER 25MG DAILY FOR 1 WEEK, THEN 25MG BID FOR 1 WEEK, 25MG DAILY AND 50MG AT QHS FOR 1 WEEK, THEN 50MG BID. UNSURE IF PATIENT HAS STARTED. Trazodone HCl (Trazodone HCl) 50 Mg Tablet, 75 MG PO QHS Valsartan (Valsartan) 160 Mg Tablet, 160 MG PO DAILY Scheduled PRN Cyclobenzaprine HCl (Cyclobenzaprine HCl) 5 Mg Tablet, 5 MG PO QHS PRN for MUSCLE SPASMS Nystatin (Nystatin Powder) 15 Gm Powder, 1 DOSE TOP BID PRN for RASH Miscellaneous Medications [Patient Comment] PATIENT UNAVAILABLE. COMPLETED MED REC VIA EXTERNAL MED HISTORY, PREVIOUS CLINIC VISIT (04/20/2020) AND PHARMACY. Allergies Coded Allergies: TAPE (Verified Allergy, Intermediate, HIVES, 04/03/19) PLASTIC TAPE, PAPER TAPE [place] silver (Verified Allergy, Intermediate, HIVES, 04/03/19) A-FIB/CHADSVASC A-FIB History Current/History of A-Fib/PAF?: No GME ATTESTATION GME ATTESTATION My faculty preceptor for this patient encounter was physically present during the encounter and was fully available. All aspects of the patient interview, examination, medical decision making process, and medical care plan development were reviewed and approved by the faculty preceptor. The faculty preceptor is aware and concurs with the plan as stated in the body of this note and will attest to such by his/her cosignature. ATTENDING NOTE TIME OF SERVICE 1220AM is a 44 yr old w a hx of unspecified neurological dz, HTN, depression, RLS and fatty liver who presented w c/o dyspnea. he says a at [facility] told him he has a Demyelinating neuropathy. Plan: will ask the day time team to consider calling [facility] to corroborate the hx and see if he is a candidate to be transferred there Rest per 's H&_ JATINDER ASHBY DO Apr 30, 2020 23:59 KIM NEWBERRY MD May 01, 2020 06:36
[2020-05-01] VITALS (20 sets, daily range): BP systolic 122–141; BP diastolic 73–92; O2SAT 91–95
[2020-05-01] MEDS ORDERED: MAALOX 30 ML SUSP *UDC PO PRN
[2020-05-01] MEDS ORDERED: IBUPROFEN 400 MG TAB PO ONE (00:30)
[2020-05-01 01:35] LABS: NT-PRO BNP 18 PG/ML (<125); TROPONIN I < 0.02 NG/ML (< 0.10)
[2020-05-01] MEDS: ACETAMINOPHEN TAB 650MG DOSE (2X325MG) PO PRN (03:06)
[2020-05-01 08:14] LABS: ABG BASE EXCESS -1.8 (-2.0-2.0); ABG HCO3 22.2 MEQ/L (22.0-26.0); ABG O2 SATURATION 91.3 % (95.0-99.0); ABG PARTIAL PRESSURE CO2 35.6 mmHg (35.0-45.0); ABG PARTIAL PRESSURE O2 60.4 mmHg (75.0-100.0); ABG STANDARD HCO3 22.8 MEQ/L (22.0-26.0); ABG TOTAL CO2 23.3 MEQ/L (22.0-29.0); ABG pH (ARTERIAL) 7.413 UNITS (7.350-7.450)
[2020-05-01] MEDS: ENOXAPARIN 40MG/0.4ML SYRINGE (J1650 PER 10MG) SC SCH (08:25)
[2020-05-01] MEDS: METOPROLOL SUCC (TopROL XL) 100MG *XL* TAB PO SCH (08:26)
[2020-05-01] MEDS: BACTRIM 160MG/800MG DS TAB PO SCH (08:26)
[2020-05-01] MEDS: CALCIUM CARBONATE 500 MG CHEW U/D PO SCH ×3 (08:26→17:05)
[2020-05-01] MEDS: VALSARTAN 80 MG TAB (DIOVAN) PO SCH (08:26)
[2020-05-01] MEDS: predniSONE 20 MG TAB PO SCH (08:27)
[2020-05-01] MEDS: PANTOPRAZOLE 40MG TAB (PROTONIX) PO SCH ×2 (08:27→20:28)
[2020-05-01] MEDS: BACLOFEN 10 MG TAB PO SCH ×2 (08:27→20:29)
[2020-05-01] MEDS: SERTRALINE HCL 50 MG TAB PO SCH (08:27)
[2020-05-01] MEDS: PREGABALIN 100 MG CAP (LYRICA) PO SCH ×2 (08:27→20:28)
[2020-05-01] MEDS: POTASSIUM CHLORIDE 10 MEQ SR TABLET PO SCH (08:27)
[2020-05-01] MEDS: CALCITRIOL 0.25 MCG CAP (S0169) PO SCH (08:27)
[2020-05-01] MEDS: ASPIRIN 81 MG ENTERIC TAB PO SCH (08:27)
[2020-05-01] MEDS ORDERED: ONDANSETRON 4MG/2ML VIAL IV PRN (08:30)
[2020-05-01] MEDS ORDERED: FUROSEMIDE 100MG/10ML VIAL (J1940) IV ONE (09:00)
[2020-05-01] MEDS ORDERED: hydroCHLOROthiazide 25 MG TAB PO SCH (09:00)
[2020-05-01] MEDS ORDERED: FUROSEMIDE 20 MG TAB PO SCH (09:00)
[2020-05-01] MEDS ORDERED: SLF 3 ML SYR IV PRN (15:30)
[2020-05-01] MEDS: FUROSEMIDE 100MG/10ML VIAL (J1940) IV SCH (16:57)
[2020-05-01] MEDS: rOPINIRole 1MG TAB PO SCH (20:28)
[2020-05-01] MEDS: traZODone 25MG PER 1/2 TABLET PO SCH (20:29)
[2020-05-01] MEDS: SLF 3 ML SYR IV SCH (20:32)
--- NOTE | 2020-05-01 21:29 | ECGEPIP ---
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
--- NOTE | 2020-05-01 21:31 | ECGEPIP ---
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
[2020-05-01] MEDS: CYCLOBENZAPRINE 5MG TABLET PO PRN (22:03)
[2020-05-02] VITALS (14 sets, daily range): BP systolic 113–141; BP diastolic 60–80; O2SAT 92–95
[2020-05-02] MEDS: ACETAMINOPHEN TAB 650MG DOSE (2X325MG) PO PRN (04:30)
[2020-05-02] MEDS: SLF 3 ML SYR IV SCH ×3 (05:34→21:13)
--- NOTE | 2020-05-02 05:45 | IPNPDOC ---
Text Note Date of Service The patient was seen on 05/01/20. NOTE SUBJECTIVE: Complains of dyspnea with poor respiratory effort. Reports that he uses braces to help him walk. Records from [facility] recieved and i am reviewing it. PHYSICAL EXAMINATION: VITAL SIGNS: Please see below GENERAL APPEARANCE: Sitting up in bed in no distress. HEENT: Normal cephalic, atraumatic, EOMI, no scleral icterus or conjunctival injection. Mucous membranes are moist NECK: No JVD, thick short neck. CARDIOVASCULAR: Regular rate and rhythm free of murmurs gallops or rubs LUNGS: Distant breath sounds. Bilateral Vesicular. Poor inspiratory effort. Few bilateral basal crackles. No conversational dyspnea ABDOMEN: Obese, nontender, nondistended, bowel sounds normal. EXTREMITIES: No Lower extremity edema or calf tenderness bilaterally. Both radial and posterior tibial pulses are 2+ bilaterally. No clubbing noted. NEUROLOGICAL: No facial droop, aphasia or dysarthria. 5 out of 5 strength throughout, consistent with previous outpatient examinations. PSYCHIATRIC: Patient appears very anxious, mood and affect are congruent LABORATORY DATA AND RADIOLOGY : Reviewed See below. ASSESSMENT AND PLAN: Patient is a 44-year-old male with PARISH, Chronic steroid use, Migraines, Idiopathic intracranial hypertension, HTN, GERD, RLS, and a history with an unknown diagnosis resulting in progressive weakness and hypoxia. Patient has been followed by both local pulmonology and neurology at [facility]. Unfortunately, a diagnosis to explain the patient's mentioned symptoms has yet to have been made. He has been on chronic steroids for the better part of a year and a half. Over the last 6 weeks, under the guidance of his supplier development manager, patient's steroids have been steadily tapered. Patient is currently on 20 mg of prednisone by mouth. Patient does carry a history of hospitalization when his steroid dose is lowered to around 20. Patient presented to the emergency department in the evening of 04/30/20 with a 2 day history of increasing shortness of breath and sternal chest pain. Vitals were found to be stable. Laboratory examination did not reveal any significant changes. Serial troponins and EKGs ruled out ACS. CT angiogram was without e vidence of PE. Chest x-ray demonstrated chronic changes. Patient had increased his oxygen from 3L to 5 L . He was found to have Respiratory alkalosis in ABG. Current presentation appears, by all accounts, consistent with prior hospitalizations in which symptoms improved only after she has returned to a higher steroid dose as reported by patient. Patient was admitted for evaluation of increased hypoxia from baseline. Respiratory Alkalosis ? panic attack with hyperventilation after getting the news that his insurance will not cover the referral to [facility]. ABG OK this am except for mild hypoxia. Oxygen down to 4 liters. Pulmonary consulted. Weakness both legs and arms Patient has had extensive neurologic work-up at [facility], and extensive pulmonary workup without any definitive diagnosis. NO CIDP. EMG normal, Mild carpal tunnel on the left. NCV still pending. [facility] Neurology felt there is a large functional component to the weakness. Chronic respiratory failure with hypoxia Chronic Hypoxia/ Chronic dyspnea Chronic steroid use. No neurological or pulmonary etiology has been demonstrated yet Reviewed records form [facility] and neurology clinic. CT chest with some atelectasis, poor respiratory effort. No Polycythemia noted. titrate oxygen to 88% to 92% Uses 3 liters at home. Obesity/PARISH Noncompliance with CPAP at home Echo. BMI of 38.8. Complicating care Chronic Steroid Use about 1.5 years on steroids. Pulmonology and has been monitoring a steroid taper for the last 6 weeks. Patient previously on 60 mg daily. Currently down to 20 mg daily. Similar presentation in 01/29 following a more rapid taper. Given 40 mg Solumedrol in the ED. Will continue prednisone 20 mg daily will give lasix. Idiopathic intracranial hypertension/ migraine reports that had allergic reaction to diamox. So was given topiramate. Patient has not started taking it. CSF pressure was 30 at one time Anxiety/Depression Patient shares that he was informed today that his insurance would not cover [facility] (to which he was referred to via pulmonology). Continue on home SSRI, Sertraline 50 mg. HTN Normotensive, continue home HCTZ, Metoprolol GERD Protonix, Tums Mylanta PRN RLS Ropinirole, Lyrica Insomnia Trazodone, plan to taper outpatient CODE STATUS: Full code DVT PROPHYLAXIS: Lovenox VS,Fishbone, I+O VS, Fishbone, I+O Laboratory Tests 04/30/20 17:56 Vital Signs Date Time Temp Pulse Resp B/P (MAP) Pulse Ox O2 Delivery O2 Flow Rate FiO2 05/01/20 12:00 97.4 107 20 128/73 (91) 94 Nasal Cannula 4.0 I&O- Last 24 Hours up to 6 AM 05/01/20 07:00 Intake Total 0 ml Output Total 0 ml Balance 0 ml RADHIKA JOVEL MD May 01, 2020 16:16
[2020-05-02 05:57] LABS: HEMATOCRIT 39.5 % (42.0-52.0); MEAN CORPUSCULAR HEMOGLOBIN 28.6 pg (27.0-33.0); MEAN CORPUSCULAR HGB CONC 32.9 g/dl (32.0-36.5); PLATELET COUNT, AUTOMATED 290 10^3/uL (150-450); RED BLOOD COUNT 4.54 10^6/uL (4.30-6.10); WHITE BLOOD COUNT 10.7 10^3/uL (4.0-10.0)
[2020-05-02 06:15] LABS: ALBUMIN 3.7 GM/DL (3.2-5.2); ALT/SGPT 55 U/L (12-78); BILIRUBIN,TOTAL 0.8 MG/DL (0.2-1.0); BLOOD UREA NITROGEN 22 MG/DL (7-18); CARBON DIOXIDE LEVEL 28 MEQ/L (21-32); CHLORIDE LEVEL 104 MEQ/L (98-107); CREATININE FOR GFR 1.21 MG/DL (0.70-1.30); GLOMERULAR FILTRATION RATE > 60.0 (>60); GLUCOSE, FASTING 126 MG/DL (70-100); MAGNESIUM LEVEL 2.2 MG/DL (1.8-2.4); PHOSPHORUS LEVEL 4.5 MG/DL (2.5-4.9); POTASSIUM SERUM 3.3 MEQ/L (3.5-5.1); SODIUM LEVEL 139 MEQ/L (136-145); TOTAL PROTEIN 6.7 GM/DL (6.4-8.2)
[2020-05-02] MEDS: CALCIUM CARBONATE 500 MG CHEW U/D PO SCH ×3 (08:32→17:32)
[2020-05-02] MEDS: POTASSIUM CHLORIDE 10 MEQ SR TABLET PO SCH (08:33)
[2020-05-02] MEDS: SERTRALINE HCL 50 MG TAB PO SCH (08:33)
[2020-05-02] MEDS: METOPROLOL SUCC (TopROL XL) 100MG *XL* TAB PO SCH (08:33)
[2020-05-02] MEDS: predniSONE 20 MG TAB PO SCH (08:34)
[2020-05-02] MEDS: PREGABALIN 100 MG CAP (LYRICA) PO SCH ×2 (08:34→21:12)
[2020-05-02] MEDS: ASPIRIN 81 MG ENTERIC TAB PO SCH (08:34)
[2020-05-02] MEDS: BACLOFEN 10 MG TAB PO SCH ×2 (08:34→21:12)
[2020-05-02] MEDS: PANTOPRAZOLE 40MG TAB (PROTONIX) PO SCH ×2 (08:34→21:11)
[2020-05-02] MEDS: CALCITRIOL 0.25 MCG CAP (S0169) PO SCH (08:34)
[2020-05-02] MEDS: ENOXAPARIN 40MG/0.4ML SYRINGE (J1650 PER 10MG) SC SCH (08:35)
[2020-05-02] MEDS: VALSARTAN 80 MG TAB (DIOVAN) PO SCH (08:35)
[2020-05-02] MEDS: FUROSEMIDE 100MG/10ML VIAL (J1940) IV SCH ×2 (08:36→17:32)
[2020-05-02 09:17] LABS: ABG BASE EXCESS 1.8 (-2.0-2.0); ABG HCO3 26.8 MEQ/L (22.0-26.0); ABG O2 SATURATION 92.8 % (95.0-99.0); ABG PARTIAL PRESSURE CO2 43.5 mmHg (35.0-45.0); ABG PARTIAL PRESSURE O2 64.7 mmHg (75.0-100.0); ABG TOTAL CO2 28.2 MEQ/L (22.0-29.0); ABG pH (ARTERIAL) 7.408 UNITS (7.350-7.450)
[2020-05-02] MEDS: CYCLOBENZAPRINE 5MG TABLET PO PRN ×2 (14:42→22:18)
[2020-05-02] MEDS: rOPINIRole 1MG TAB PO SCH (21:11)
[2020-05-02] MEDS: traZODone 25MG PER 1/2 TABLET PO SCH (21:12)
[2020-05-02] MEDS: MIRALAX *UNIT DOSE* 17GM PACKET PO SCH (21:12)
[2020-05-02] MEDS: SENOKOT S TAB PO SCH (21:12)
[2020-05-02] MEDS ORDERED: CYCLOBENZAPRINE 5MG TABLET PO ONE (22:00)
[2020-05-03] VITALS (15 sets, daily range): BP systolic 134–159; BP diastolic 74–86; O2SAT 91–96
[2020-05-03] MEDS: SLF 3 ML SYR IV SCH ×3 (05:14→22:14)
[2020-05-03 05:39] LABS: HEMATOCRIT 38.2 % (42.0-52.0); HEMOGLOBIN 12.6 g/dl (13.5-17.5); MEAN CORPUSCULAR VOLUME 87.8 fl (80.0-96.0); PLATELET COUNT, AUTOMATED 268 10^3/uL (150-450); RED BLOOD COUNT 4.35 10^6/uL (4.30-6.10); WHITE BLOOD COUNT 10.8 10^3/uL (4.0-10.0)
[2020-05-03 06:07] LABS: ALBUMIN 3.6 GM/DL (3.2-5.2); ALT/SGPT 55 U/L (12-78); BILIRUBIN,TOTAL 0.6 MG/DL (0.2-1.0); BLOOD UREA NITROGEN 24 MG/DL (7-18); CALCIUM LEVEL 8.9 MG/DL (8.5-10.1); CARBON DIOXIDE LEVEL 29 MEQ/L (21-32); CHLORIDE LEVEL 106 MEQ/L (98-107); CREATININE FOR GFR 1.19 MG/DL (0.70-1.30); GLOMERULAR FILTRATION RATE > 60.0 (>60); GLUCOSE, FASTING 115 MG/DL (70-100); POTASSIUM SERUM 3.4 MEQ/L (3.5-5.1); SODIUM LEVEL 141 MEQ/L (136-145); TOTAL PROTEIN 6.2 GM/DL (6.4-8.2)
--- NOTE | 2020-05-03 08:15 | IPNPDOC ---
Text Note Date of Service The patient was seen on 05/02/20. NOTE SUBJECTIVE: Patient reports that his breathing is a little worse today than yesterday but his voice is better. He was on 3 liters oxygen overnight. Did not use the CPAP. His ABG this morning was normal except for mild hypoxia. PHYSICAL EXAMINATION: VITAL SIGNS: Please see below GENERAL APPEARANCE: Sitting up in bed in no distress. HEENT: Normal cephalic, atraumatic, EOMI, no scleral icterus or conjunctival injection. Mucous membranes are moist NECK: No JVD, thick short neck. CARDIOVASCULAR: Regular rate and rhythm free of murmurs gallops or rubs LUNGS: Distant breath sounds. Bilateral Vesicular. Poor inspiratory effort. Few bilateral basal crackles. No conversational dyspnea ABDOMEN: Obese, nontender, nondistended, bowel sounds normal. EXTREMITIES: No Lower extremity edema or calf tenderness bilaterally. Both radial and posterior tibial pulses are 2+ bilaterally. No clubbing noted. NEUROLOGICAL: No facial droop, aphasia or dysarthria. 5 out of 5 strength th roughout, consistent with previous outpatient examinations. PSYCHIATRIC: Patient appears very anxious, mood and affect are congruent LABORATORY DATA AND RADIOLOGY : Reviewed See below. ASSESSMENT AND PLAN: Patient is a 44-year-old male with PARISH, Chronic steroid use, Migraines, Idiopathic intracranial hypertension, HTN, GERD, RLS, and a history with an unknown diagnosis resulting in progressive weakness and hypoxia. Patient has been followed by both local pulmonology and neurology at [facility]. Unfortunately, a diagnosis to explain the patient's mentioned symptoms has yet to have been made. He has been on chronic steroids for the better part of a year and a half. Over the last 6 weeks, under the guidance of his client development consultant, patient's steroids have been steadily tapered. Patient is currently on 20 mg of prednisone by mouth. Patient does carry a history of hospitalization when his steroid dose is lowered to around 20. Patient presented to the emergency department in the evening of 04/30/20 with a 2 day history of increasing shortness of breath and sternal chest pain. Vitals were found to be stable. Laboratory examination did not reveal any significant changes. Serial troponins and EKGs ruled out ACS. CT angiogram was without evidence of PE. Chest x-ray demonstrated chronic changes. Patient had increased his oxygen from 3L to 5 L . He was found to have Respiratory alkalosis in ABG. Current presentation appears, by all accounts, consistent with prior hospital izations in which symptoms improved only after she has returned to a higher steroid dose as reported by patient. Patient was admitted for evaluation of increased hypoxia from baseline. Respiratory Alkalosis ? panic attack with hyperventilation after getting the news that his insurance will not cover the referral to [facility]. ABG OK this am except for mild hypoxia. Oxygen down to 4 liters. Pulmonary consulted. Weakness both legs and arms Patient has had extensive neurologic work-up at [facility], and extensive pulmonary workup without any definitive diagnosis. NO CIDP. EMG normal, Mild carpal tunnel on the left. NCV still pending. [facility] Neurology felt there is a large functional component to the weakness. Chronic respiratory failure with hypoxia. Chronic Hypoxia/ Chronic dyspnea Chronic steroid use. No neurological or pulmonary etiology has been demonstrated yet Reviewed records form [facility] and neurology clinic. CT chest with some atelectasis, poor respiratory effort. No Polycythemia noted. May have obesity hypoventilation titrate oxygen to 88% to 92% Uses 3 L at home PARISH/Obesity Noncompliance with CPAP at home Echo. BMI of 38.8. Complicating care Chronic Steroid Use about 1.5 years on steroids. Pulmonology and has been monitoring a steroid taper for the last 6 weeks. Patient previously on 60 mg daily. Currently down to 20 mg daily. Similar presentation in 01/29 following a more rapid taper. Given 40 mg Solumedrol in the ED. Will continue prednisone 20 mg daily Idiopathic intracranial hypertension/ migraine reports that had allergic reaction to diamox. So was given topiramate. Patient has not started taking it. CSF pressure was 30 at one time Anxiety/Depression Patient shares that he was informed today that his insurance would not cover [facility] (to which he was referred to via pulmonology). Continue on home SSRI, Sertraline 50 mg. HTN Normotensive, continue home Metoprolol, Lasix. GERD Protonix, Tums Mylanta PRN RLS Ropinirole, Lyrica Insomnia Trazodone, plan to taper outpatient CODE STATUS: Full code DVT PROPHYLAXIS: Lovenox VS,Fishbone, I+O VS, Fishbone, I+O Laboratory Tests 05/02/20 05:21 Vital Signs Date Time Temp Pulse Resp B/P (MAP) Pulse Ox O2 Delivery O2 Flow Rate FiO2 05/02/20 16:00 97.0 94 18 132/73 (92) 94 Nasal Cannula 4.0 I&O- Last 24 Hours up to 6 AM 05/02/20 05:59 Intake Total 1670 ml Output Total 1550 ml Balance 120 ml RADHIKA JOVEL MD May 02, 2020 18:41
[2020-05-03] MEDS: FUROSEMIDE 100MG/10ML VIAL (J1940) IV SCH ×3 (08:38→22:10)
[2020-05-03] MEDS: ENOXAPARIN 40MG/0.4ML SYRINGE (J1650 PER 10MG) SC SCH (08:38)
[2020-05-03] MEDS: ASPIRIN 81 MG ENTERIC TAB PO SCH (08:39)
[2020-05-03] MEDS: PREGABALIN 100 MG CAP (LYRICA) PO SCH ×2 (08:39→22:06)
[2020-05-03] MEDS: CALCITRIOL 0.25 MCG CAP (S0169) PO SCH (08:39)
[2020-05-03] MEDS: SENOKOT S TAB PO SCH ×2 (08:40→22:06)
[2020-05-03] MEDS: VALSARTAN 80 MG TAB (DIOVAN) PO SCH (08:40)
[2020-05-03] MEDS: POTASSIUM CHLORIDE 10 MEQ SR TABLET PO SCH ×2 (08:41→22:07)
[2020-05-03] MEDS: PANTOPRAZOLE 40MG TAB (PROTONIX) PO SCH ×2 (08:41→22:08)
[2020-05-03] MEDS: BACLOFEN 10 MG TAB PO SCH ×2 (08:41→22:08)
[2020-05-03] MEDS: predniSONE 20 MG TAB PO SCH (08:41)
[2020-05-03] MEDS: CALCIUM CARBONATE 500 MG CHEW U/D PO SCH ×3 (08:42→17:30)
[2020-05-03] MEDS: SERTRALINE HCL 50 MG TAB PO SCH (08:42)
[2020-05-03] MEDS: MIRALAX *UNIT DOSE* 17GM PACKET PO SCH ×2 (08:42→22:03)
[2020-05-03] MEDS: METOPROLOL SUCC (TopROL XL) 100MG *XL* TAB PO SCH (08:42)
[2020-05-03] MEDS ORDERED: metOLazone 5 MG TAB PO ONE (09:45)
[2020-05-03] MEDS ORDERED: POTASSIUM CHLORIDE 10 MEQ SR TABLET PO ONE ×2 (10:00→12:00)
--- NOTE | 2020-05-03 11:19 | IPNPDOC ---
Text Note Date of Service The patient was seen on 05/03/20. NOTE SUBJECTIVE: Patient reports he feels more tired today. He did not use the CPAP last night. He says that his feet and hands are swelling up again as he finds it difficult to bend the fingers adn toes they feel tight. He also complains of persistent headache. Also this morning he was feeling numbness in the left last 3 fingers and lat side of palm. he also reports numbness on both the lateral sides of the thigh. He has mild carpal tunnel on the left. PHYSICAL EXAMINATION: VITAL SIGNS: Please see below GENERAL APPEARANCE: Sitting up in bed in no distress. HEENT: Normal cephalic, atraumatic, EOMI, no scleral icterus or conjunctival injection. Mucous membranes are moist NECK: No JVD, thick short neck. CARDIOVASCULAR: Regular rate and rhythm free of murmurs gallops or rubs LUNGS: Distant breath sounds. Bilateral Vesicular. Poor inspiratory effort. Few bilateral basal crackles. No conversational dyspnea ABDOMEN: Obese, nontender, nondistended, bowel sounds normal. EXTREMITIES: No Lower extremity edema or calf tenderness bilaterally. Both radial and posterior tibial pulses are 2+ bilaterally. No clubbing noted. NEUROLOGICAL: No facial droop, aphasia or dysarthria. 5 out of 5 strength throughout, consistent with previous outpatient examinations. PSYCHIATRIC: Patient appears very anxious, mood and affect are congruent LABORATORY DATA AND RADIOLOGY : Reviewed See below. ASSESSMENT AND PLAN: Patient is a 44-year-old male with PARISH, Chronic steroid use, Migraines, Idiopathic intracranial hypertension, HTN, GERD, RLS, and a history with an unknown diagnosis resulting in progressive weakness and hypoxia. Patient has been followed by both local pulmonology and neurology at [facility]. Unfortunately, a diagnosis to explain the patient's mentioned symptoms has yet to have been made. He has been on chronic steroids for the better part of a year and a half. 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 Patient is currently on 20 mg of prednisone by mouth. Patient does carry a history of hospitalization when his steroid dose is lowered to around 20. Patient presented to the emergency department in the evening of 04/30/20 with a 2 day history of increasing shortness of breath and sternal chest pain. Vitals were found to be stable. Laboratory examination did not reveal any significant changes. Serial troponins and EKGs ruled out ACS. CT angiogram was without evidence of PE. There are bibasal atelectasis. Chest x-ray demonstrated chronic changes. Patient had increased his oxygen from 3L to 5 L . He was found to have Respiratory alkalosis in ABG. Current presentation appears, by all accounts, consistent with prior hospitalizations in which symptoms improved only after she has returned to a higher steroid dose as reported by patient. Patient was admitted for evaluation of increased hypoxia from baseline. Respiratory Alkalosis ? panic attack with hyperventilation . He reports that sometimes he feels like he cant breathe when he is actually breathing and then has an anxious attack and starts breathing very fast and starts feeling tingling in his arms and legs and around his mouth. Weakness both legs and arms with muscle spasms. No neurological disease has been demonstrated yet. Patient has had extensive neurologic work-up at [facility], and extensive pulmonary workup without any definitive diagnosis. NO CIDP demonstrated . EMG normal, Mild carpal tunnel on the left. NCV still pending. [facility] Neurology felt there is a large functional component to the weakness. Uses braces to walk. On baclofen and cyclobenzaprine. Has agreed to talk with psychiatry. Chronic respiratory failure with hypoxia Chronic Hypoxia/ Chronic dyspnea Chronic steroid use. No pulmonary etiology has been demonstrated yet [facility] chest with some atelectasis, poor respiratory effort. No Polycythemia noted. titrate oxygen to 88% to 92% On 3 L at home here on 4 liters will try to wean. PARISH Noncompliance with CPAP at home Echo. Obesity On 3 L oxygen at home BMI of 38.8. Complicating care Chronic Steroid Use about 1.5 years on steroids. Pulmonology and has been monitoring a steroid taper for the last 6 weeks. Patient previously on 60 mg daily. Currently down to 20 mg daily. Similar presentation in 01/29 following a more rapid taper. Given 40 mg Solumedrol in the ED. Will continue prednisone 20 mg daily Idiopathic intracranial hypertension/ migraine reports that had allergic reaction to diamox. So was given topiramate. Patient has not started taking it. CSF pressure was 30 at one time Anxiety/Depression Patient shares that he was informed today that his insurance would not cover [facility] (to which he was referred to via pulmonology). Continue on home SSRI, Sertraline 50 mg. HTN Normotensive, continue home lasix, Metoprolol GERD Protonix, Tums Mylanta PRN RLS Ropinirole, Lyrica Insomnia Trazodone, plan to taper outpatient CODE STATUS: Full code DVT PROPHYLAXIS: Lovenox VS,Fishbone, I+O VS, Fishbone, I+O Laboratory Tests 05/03/20 05:22 Vital Signs Date Time Temp Pulse Resp B/P (MAP) Pulse Ox O2 Delivery O2 Flow Rate FiO2 05/03/20 08:40 145/78 05/03/20 07:52 97.5 102 18 94 Nasal Cannula 4.0 I&O- Last 24 Hours up to 6 AM 05/03/20 05:59 Intake Total 1731 ml Output Total 1700 ml Balance 31 ml RADHIKA JOVEL MD May 03, 2020 11:19
[2020-05-03] MEDS: TOPIRAMATE (TopAMAX) 25 MG TAB PO SCH (12:07)
[2020-05-03] MEDS: rOPINIRole 1MG TAB PO SCH (22:06)
[2020-05-03] MEDS: traZODone 25MG PER 1/2 TABLET PO SCH (22:13)
[2020-05-03] MEDS: CYCLOBENZAPRINE 5MG TABLET PO PRN (22:28)
[2020-05-04] VITALS (11 sets, daily range): BP systolic 115–152; BP diastolic 59–98; O2SAT 89–93
[2020-05-04] MEDS: FUROSEMIDE 100MG/10ML VIAL (J1940) IV SCH (04:05)
[2020-05-04] MEDS: SLF 3 ML SYR IV SCH ×3 (04:10→20:42)
[2020-05-04 05:58] LABS: HEMATOCRIT 46.3 % (42.0-52.0); MEAN CORPUSCULAR HEMOGLOBIN 28.6 pg (27.0-33.0); MEAN CORPUSCULAR HGB CONC 33.3 g/dl (32.0-36.5); MEAN CORPUSCULAR VOLUME 85.9 fl (80.0-96.0); PLATELET COUNT, AUTOMATED 341 10^3/uL (150-450); RED BLOOD COUNT 5.39 10^6/uL (4.30-6.10); WHITE BLOOD COUNT 13.6 10^3/uL (4.0-10.0)
[2020-05-04 06:01] LABS: HEMOGLOBIN 15.4 g/dl (13.5-17.5)
[2020-05-04 06:30] LABS: ALBUMIN 4.3 GM/DL (3.2-5.2); BILIRUBIN,TOTAL 0.7 MG/DL (0.2-1.0); CALCIUM LEVEL 9.7 MG/DL (8.5-10.1); CREATININE FOR GFR 1.73 MG/DL (0.70-1.30); GLOMERULAR FILTRATION RATE 46.1 (>60); POTASSIUM SERUM 3.3 MEQ/L (3.5-5.1)
[2020-05-04] MEDS: CALCIUM CARBONATE 500 MG CHEW U/D PO SCH ×3 (08:47→17:10)
[2020-05-04] MEDS: SENOKOT S TAB PO SCH ×2 (08:47→20:39)
[2020-05-04] MEDS: POTASSIUM CHLORIDE 10 MEQ SR TABLET PO SCH ×2 (08:48→20:38)
[2020-05-04] MEDS: predniSONE 20 MG TAB PO SCH (08:48)
[2020-05-04] MEDS: ASPIRIN 81 MG ENTERIC TAB PO SCH (08:49)
[2020-05-04] MEDS: MIRALAX *UNIT DOSE* 17GM PACKET PO SCH ×2 (08:49→21:12)
[2020-05-04] MEDS: PREGABALIN 100 MG CAP (LYRICA) PO SCH ×2 (08:49→20:39)
[2020-05-04] MEDS: TOPIRAMATE (TopAMAX) 25 MG TAB PO SCH (08:49)
[2020-05-04] MEDS: VALSARTAN 80 MG TAB (DIOVAN) PO SCH (08:49)
[2020-05-04] MEDS: CALCITRIOL 0.25 MCG CAP (S0169) PO SCH (08:50)
[2020-05-04] MEDS: PANTOPRAZOLE 40MG TAB (PROTONIX) PO SCH ×2 (08:50→20:39)
[2020-05-04] MEDS: BACLOFEN 10 MG TAB PO SCH ×2 (08:50→20:37)
[2020-05-04] MEDS: BACTRIM 160MG/800MG DS TAB PO SCH (08:50)
[2020-05-04] MEDS: ENOXAPARIN 40MG/0.4ML SYRINGE (J1650 PER 10MG) SC SCH (08:50)
[2020-05-04] MEDS: SERTRALINE HCL 50 MG TAB PO SCH (08:50)
[2020-05-04] MEDS: METOPROLOL SUCC (TopROL XL) 100MG *XL* TAB PO SCH (08:55)
--- NOTE | 2020-05-04 09:59 | CR ---
DATE OF CONSULTATION: 05/01/2020 I was called to evaluate this 44-year-old male for hypoxemia. On view of his record, he first became ill 2 years ago with what is believed to have been a viral pneumonia. He was treated elsewhere and was seen first in our office about 1 year ago. At that time he had been maintained on steroids at relatively high doses since the initial event. Extensive workup has identified no pulmonary pathology with the exception of sleep apnea syndrome, for which he has been prescribed continuous positive airway pressure (CPAP). Attempts to wean his steroids have resulted in worsening symptoms of dyspnea and tightness in his chest. He indicates that recently reducing his dose of prednisone below 20 mg resulted in the symptoms prompting his presentation to the hospital. His temperature is 97.4, pulse rate 107, respirations 20, blood pressure 128/73. HEENT: His pupils are equal, round, and react to light. Oral mucosa is pink. His posterior pharynx is not erythematous. Upper pharyngeal aperture small in dimension. Neck is holder. Heart sounds are regular without appreciable. Breath sounds are diminished. The patient is either unwilling or unable to take a deep breath. There is crepitance in the bases on efforts to take a deep breath. Diaphragm motion is difficult to assess. Abdomen is soft, nontender. Extremities show no edema. Extensive laboratory and x-rays were reviewed, including five CT angiograms, none of which showed pulmonary embolism, spirometric measures, pulmonary function testing, and arterial blood gases. IMPRESSIONS: 1. Hypoxemia secondary to hypoventilation secondary to extrapulmonary disease, possible neuromuscular disease. Recommendation: I would pursue further elucidation of the neuromuscular condition. Unless there is neuromuscular condition identified that would respond to steroid, I would recommend continuing efforts to wean them. Once could consider a change of Medrol for prednisone, but still weaning would be preferred. 2. Continue nightly use of CPAP for the patient's obstructive sleep apnea syndrome. [facility]
[2020-05-04] MEDS ORDERED: EMLA CREAM 5GM TUBE (LIDOCAINE/PRILOCAINE) TOP PRN (11:30)
[2020-05-04] MEDS: rOPINIRole 1MG TAB PO SCH (20:37)
[2020-05-04] MEDS: traZODone 25MG PER 1/2 TABLET PO SCH (20:39)
[2020-05-04] MEDS: CYCLOBENZAPRINE 5MG TABLET PO PRN (20:59)
--- NOTE | 2020-05-04 22:02 | ECGEPIP ---
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
[2020-05-05] VITALS: BP 134/74
[2020-05-05 04:00] VITALS: BP 135/75
[2020-05-05 07:16] VITALS: BP 120/77
[2020-05-05] MEDS: ENOXAPARIN 40MG/0.4ML SYRINGE (J1650 PER 10MG) SC SCH (08:10)
[2020-05-05] MEDS: TOPIRAMATE (TopAMAX) 25 MG TAB PO SCH (08:10)
[2020-05-05] MEDS: ASPIRIN 81 MG ENTERIC TAB PO SCH (08:10)
[2020-05-05] MEDS: POTASSIUM CHLORIDE 10 MEQ SR TABLET PO SCH (08:10)
[2020-05-05 08:11] VITALS: BP 120/77
[2020-05-05] MEDS: PANTOPRAZOLE 40MG TAB (PROTONIX) PO SCH (08:11)
[2020-05-05] MEDS: CALCITRIOL 0.25 MCG CAP (S0169) PO SCH (08:11)
[2020-05-05] MEDS: CALCIUM CARBONATE 500 MG CHEW U/D PO SCH (08:11)
[2020-05-05] MEDS: METOPROLOL SUCC (TopROL XL) 100MG *XL* TAB PO SCH (08:11)
[2020-05-05] MEDS: PREGABALIN 100 MG CAP (LYRICA) PO SCH (08:11)
[2020-05-05] MEDS: VALSARTAN 80 MG TAB (DIOVAN) PO SCH (08:12)
[2020-05-05] MEDS: SERTRALINE HCL 50 MG TAB PO SCH (08:12)
[2020-05-05] MEDS: BACLOFEN 10 MG TAB PO SCH (08:12)
[2020-05-05] MEDS: SENOKOT S TAB PO SCH (08:12)
[2020-05-05] MEDS: MIRALAX *UNIT DOSE* 17GM PACKET PO SCH (08:12)
[2020-05-05] MEDS: SLF 3 ML SYR IV SCH (08:12)
[2020-05-05] MEDS: predniSONE 20 MG TAB PO SCH (08:12)
[2020-05-05] MEDS ORDERED: ZOLO25TA PO (10:50)
[2020-05-05] MEDS ORDERED: SERT25TA85 PO (12:13)
--- NOTE | 2020-05-05 12:46 | ECHO ---
DATE OF PROCEDURE: 05/04/2020 Age: 44 Gender: M Height: 173 cm Weight: 111 kg REFERRING PHYSICIAN: Dr. Jessica Clemens INDICATION: Dyspnea MEASUREMENTS: IVS 0.8 LV 5.0 LVPW 1.0 LA 3.1 Aorta 3.5 RV 2.6 Mitral E wave velocity is 65; A wave 96 E prime septal 5.8 E prime lateral 6.9 FINDINGS: This study is of fair technical quality with difficult visualization corresponding to body habitus. There is underlying sinus tachycardia with ventricular rate around 120 beats per minute. Left ventricle is normal size. Based on very limited views, there is hyperdynamic LV function. I estimate ejection fraction (EF) around 70%. No distinct segmental wall motion abnormalities were seen but especially apical segments were poorly visualized. Right ventricle does not appear grossly enlarged but was poorly seen. Both atria appear normal. Aortic and mitral valves appear normal. Limited visualization of tricuspid and pulmonic valves also appear normal. No pericardial effusion is noted. Inferior vena cava was not seen. Aortic root is normal. Aortic arch and abdominal aorta were not well visualized. Doppler interrogation reveals competent aortic and mitral valves. Limited views of pulmonic and tricuspid valve also revealed no significant abnormality. Mitral inflow pattern and tissue Doppler imaging of mitral annulus reveals grade 1 diastolic dysfunction. CONCLUSIONS: 1. Study is of fair technical quality corresponding to patient's body habitus. Underlying sinus tachycardia with ventricular rate around 120 beats per minute. 2. Normal left ventricle size with hyperdynamic left ventricular systolic function and grade 1 diastolic dysfunction. 3. No significant valvular disease. 4. Unable to estimate central venous pressure and pulmonary artery pressure. 5. Right-sided valves and heart chambers were particularly poorly seen. [facility]
--- NOTE | 2020-05-05 16:58 | DS.PDOC ---
Discharge Summary General Date of Admission Apr 30, 2020 at 23:41 Date of Discharge 05/05/20 Discharge Summary PROCEDURES PERFORMED DURING STAY: None ADMITTING DIAGNOSES: Hypokalemia VELIA Bilateral lateral thigh pain Respiratory Alkalosis Weakness both legs and arms with muscle spasms Chronic Hypoxia/ Chronic dyspnea PARISH Obesity Idiopathic intracranial hypertension/ migraine Chronic Steroid Use Anxiety/Depression HTN GERD RLS Insomnia DISCHARGE DIAGNOSES: Hypokalemia VELIA Bilateral lateral thigh pain Respiratory Alkalosis Weakness both legs and arms with muscle spasms Chronic Hypoxia/ Chronic dyspnea PARISH Obesity Idiopathic intracranial hypertension/ migraine Chronic Steroid Use Anxiety/Depression HTN GERD RLS Insomnia COMPLICATIONS/CHIEF COMPLAINT: Dyspnea. HISTORY OF PRESENT ILLNESS: Patient is a 44-year-old male with PARISH, Chronic steroid use, Migraines, Idiopathic intracranial hypertension, HTN, GERD, RLS, and a history with an unknown diagnosis resulting in progressive weakness and hypoxia. Patient has been followed by both local pulmonology and neurology at [facility]. Unfortunately, a diagnosis to explain the patient's mentioned symptoms has yet to have been made. He has been on chronic steroids for the better part of a year and a half. Over the last 6 weeks, under the guidance of his credit correspondence clerk, patient's steroids have been steadily tapered. Patient is currently on 20 mg of prednisone by mouth. Patient does carry a history of hospitalization when his steroid dose is lowered to around 20. Patient presented to the emergency department in the evening of 04/30/20 with a 2 day history of increasing shortness of breath and sternal chest pain. Vitals were found to be stable. Laboratory examination did not reveal any significant changes. Serial troponins and EKGs ruled out ACS. CT angiogram was without evidence of PE. There are bibasal atelectasis. Chest x-ray demonstrated chronic changes. Patient had increased his oxygen from 3L to 5 L . He was found to have Respiratory alkalosis in ABG. Current presentation appears, by all accounts, consistent with prior hospitalizations in which symptoms improved only after she has returned to a higher steroid dose as reported by patient. Patient was admitted for evaluation of increased hypoxia from baseline. HOSPITAL COURSE: During hospital stay following issue addressed VELIA from aggressive diuresis Dose of Lasix was stopped for2 days Hypokalemia from diuresis replaced Bilateral lateral thigh pain probably meralgia paraesthetica reassured the patient that it is benign Advised to avoid wearing tight undergarments and belts to reduce the pressure on the nerve Respiratory Alkalosis ? panic attack with hyperventilation . He reports that sometimes he feels like he cant breathe when he is actually breathing and then has an anxious attack and starts breathing very fast and starts feeling tingling in his arms and legs and around his mouth. Await echo report Weakness both legs and arms with muscle spasms. No neurological disease has been demonstrated yet. Patient has had extensive neurologic work-up at [facility], and extensive pulmonary workup without any definitive diagnosis. NO CIDP demonstrated . EMG normal, Mild carpal tunnel on the left. NCV still pending. [facility] felt there is a large functional component to the weakness. Uses braces to walk. On baclofen and cyclobenzaprine. Psych team recommended to increase the dose of Zoloft to 75 mg I discontinued trazodone due to QTc prolongation and risk of serotonin syndrome Chronic Hypoxia/ Chronic dyspnea Chronic steroid use. No pulmonary etiology has been demonstrated yet Reviewed records form [facility] and neurology clinic. CT chest with some atelectasis, poor respiratory effort. No Polycythemia noted. titrate oxygen to 88% to 92% On 3 L at home here on 4 liters will try to wean. PARISH Noncompliance with CPAP at home Echo. Obesity On 3 L oxygen at home BMI of 38.8. Complicating care Chronic Steroid Use about 1.5 years on steroids. Pulmonology and has been monitoring a steroid taper for the last 6 weeks. Patient previously on 60 mg daily. Currently down to 20 mg daily. Similar presentation in 01/29 following a more rapid taper. Given 40 mg Solumedrol in the ED. Will continue prednisone 20 mg daily Follow-up with credit correspondence clerk in the outpatient settings Idiopathic intracranial hypertension/ migraine reports that had allergic reaction to diamox. So was given topiramate. Patient has not started taking it. CSF pressure was 30 at one time Anxiety/Depression Patient shares that he was informed today that his insurance would not cover [facility] (to which he was referred to via pulmonology). Follow-up with psych team in the outpatient settings HTN Normotensive, continue home HCTZ, Metoprolol GERD Protonix, Tums Mylanta PRN RLS Ropinirole, Lyrica Insomnia Trazodone, plan to taper outpatient DISCHARGE MEDICATIONS: Please see below. ALLERGIES: Please see below. PHYSICAL EXAMINATION ON DISCHARGE: VITAL SIGNS: Please see below. GENERAL APPEARANCE: Sitting up in bed in no distress. HEENT: Normal cephalic, atraumatic, EOMI, no scleral icterus or conjunctival injection. Mucous membranes are moist NECK: No JVD, thick short neck. CARDIOVASCULAR: Regular rate and rhythm free of murmurs gallops or rubs LUNGS: Distant breath sounds. Bilateral Vesicular. Poor inspiratory effort. Few bilateral basal crackles. No conversational dyspnea ABDOMEN: Obese, nontender, nondistended, bowel sounds normal. EXTREMITIES: No Lower extremity edema or calf tenderness bilaterally. Both radial and posterior tibial pulses are 2+ bilaterally. No clubbing noted. NEUROLOGICAL: No facial droop, aphasia or dysarthria. 5 out of 5 strength throughout, consistent with previous outpatient examinations. PSYCHIATRIC: Patient appears very anxious, mood and affect are congruent LABORATORY DATA: Please see below. IMAGING: [facility] NAME: ROLLY YANCEY DATE OF : 1975 BUSINESS NUMBER: [id number] AGE: 44 SEX: M REPORT #: [id number] ROOM: ED TECHNOLOGIST: ABILIO DOCTOR: KIMBERLEY RAMIREZ DO Ordered for Date&Time: 04/30/202115 cc: [~ rep ct ivnm] Service Date&Time: 04/30/202150 This report is in Signed status. Interpretation performed by [facility]. Thank you for having your radiology procedures performed at [facility] RADIOLOGY REPORT Date&Time printed: [~ rep prt dt last] [~ rep prt tm last] Page 2 of 2 [place] [id number] RADIOLOGY REPORT This report is in Signed status. Interpretation performed by [facility]. Thank you for having your radiology procedures performed at [facility] RADIOLOGY REPORT Date&Time printed: [~ rep prt dt last] [~ rep prt tm last] Page 1 of 1 Exam: CT Angiography Chest Without And With Contrast Exam date and time: 04/30/2020 9:51 PM Age: 44 years old Clinical indication: Chest pain; Type not specified; Additional info: Chest pain/sob TECHNIQUE: Imaging protocol: Computed tomographic angiography of the chest without and with intravenous contrast. 3D rendering (Not supervised by radiologist): MIP and/or 3D reconstructed images were created by the technologist. Radiation optimization: All CT scans at this facility use at least one of these dose optimization techniques: automated exposure control; mA and/or kV adjustment per patient size (includes targeted exams where dose is matched to clinical indication); or iterative reconstruction. Contrast material: ISOVUE 370; Contrast volume: 75 ml; Contrast route: INTRAVENOUS (IV); COMPARISON: CT ANGIO CHEST 02/13/2020 10:47 PM FINDINGS: Pulmonary arteries: No central pulmonary embolism is seen. Evaluation of peripheral pulmonary arteries is limited due to excessive motion. Aorta: Unremarkable. No aortic aneurysm. No aortic dissection. Lungs: Mild dependent atelectasis in both lungs. No masses or airspace consolidation. Pleural space: Unremarkable. No pneumothorax. No pleural effusion. Heart: Mild cardiomegaly. No pericardial effusion. Lymph nodes: Unremarkable. No enlarged lymph nodes. Liver: The liver is low attenuation indicating hepatic steatosis. Bones/joints: Unremarkable. No acute fracture. Soft tissues: Unremarkable. IMPRESSION: 1. Hepatic steatosis. 2. No central pulmonary embolism is seen. Evaluation of peripheral pulmonary arteries is limited due to excessive motion. Electronically signed by: Rico Post On 04/30/2020 22:23:35 PM DD: RICO POST MD 04/30/202150 DT: IESHA 04/30/202222 DS: JENISE 04/30/202222 [~ rep ct labl] PROGNOSIS: Fair ACTIVITY: [As tolerated]. DIET: Cardiac DISCHARGE PLAN: Follow-up with credit correspondence clerk, power digger operator, psychiatrist, and PCP DISPOSITION: [address] [place] [address] Health Service. DISCHARGE CONDITION: [Stable]. TIME SPENT ON DISCHARGE: Greater than 40 minutes. Vital Signs/I&Os Vital Signs Date Time Temp Pulse Resp B/P (MAP) Pulse Ox O2 Delivery O2 Flow Rate FiO2 05/05/20 12:00 4.0 05/05/20 08:11 99 120/77 05/05/20 07:16 97.4 22 92 Nasal Cannula I&O- Last 24 Hours up to 6 AM 05/05/20 06:00 Intake Total 1170 ml Output Total 775 ml Balance 395 ml Discharge Medications Scheduled Acetazolamide (Acetazolamide) 500 Mg Capsule.er, 500 MG PO BID, (Reported) Aspirin (Aspirin EC) 81 Mg Tablet.dr, 81 MG PO DAILY, (Reported) Baclofen (Baclofen) 10 Mg Tablet, 10 MG PO BID, (Reported) Calcitriol (Calcitriol) 0.25 Mcg Capsule, 0.25 MCG PO DAILY, (Reported) Calcium Carbonate (Tums) 200 Mg Tab.chew, 1,000 MG PO WM, (Reported) Duloxetine HCl (Duloxetine HCl) 20 Mg Capsule.dr, 20 MG PO TAPER, (Reported) 40MG FOR 1 WEEK, 20MG FOR 1 WEEK, THEN STOP. UNSURE WHERE PATIENT IS ON TAPER. Ergocalciferol (Vitamin D2) (Vitamin D2) 50,000 Units Cap, 50,000 UNITS PO QWEEK, (Reported) MONDAYS Furosemide (Furosemide) 20 Mg Tablet, 20 MG PO DAILY, (Reported) Hydrochlorothiazide (Hydrochlorothiazide) 25 Mg Tablet, 25 MG PO DAILY, (Reported) Ketoconazole (Ketoconazole) 120 Ml Shampoo, 1 DOSE TOP Q2D, (Reported) Melatonin (Melatonin) 10 Mg Capsule, 10 MG PO QHS, (Reported) Metoprolol Succinate (Metoprolol Succinate) 100 Mg Tab.er.24h, 100 MG PO DAILY, (Reported) Pantoprazole Sodium (Pantoprazole Sodium) 40 Mg Tablet.dr, 40 MG PO BID, (Reported) Potassium Chloride (Potassium Chloride) 10 Meq Tab.er.prt, 20 MEQ PO DAILY, (Reported) Prednisone (Prednisone) 20 Mg Tablet, 20 MG PO DAILY, (Reported) Pregabalin (Pregabalin) 300 Mg Capsule, 300 MG PO BID, (Reported) Ropinirole HCl (Ropinirole HCl) 1 Mg Tablet, 1 MG PO QHS, (Reported) Sertraline HCl (Sertraline HCl) 50 Mg Tablet, 50 MG PO DAILY, (Reported) Sertraline Hcl (Sertraline HCl) 25 Mg Tablet, 25 MG PO DAILY Sulfamethoxazole/Trimethoprim (Bactrim Ds Tablet) 1 Each Tablet, 1 TAB PO 3XW, (Reported) MONDAY, MONDAY AND MONDAY Topiramate (Topiramate) 25 Mg Tablet, 25 MG PO TAPER, (Reported) 25MG DAILY FOR 1 WEEK, THEN 25MG BID FOR 1 WEEK, 25MG DAILY AND 50MG AT QHS FOR 1 WEEK, THEN 50MG BID. UNSURE IF PATIENT HAS STARTED. Valsartan (Valsartan) 160 Mg Tablet, 160 MG PO DAILY, (Reported) Scheduled PRN Cyclobenzaprine HCl (Cyclobenzaprine HCl) 5 Mg Tablet, 5 MG PO QHS PRN for MUSCLE SPASMS, (Reported) Nystatin (Nystatin Powder) 15 Gm Powder, 1 DOSE TOP BID PRN for RASH, (Reported) Miscellaneous Medications [Patient Comment] , (Reported) PATIENT UNAVAILABLE. COMPLETED MED REC VIA EXTERNAL MED HISTORY, PREVIOUS CLINIC VISIT (04/20/2020) AND PHARMACY. Allergies Coded Allergies: TAPE (Verified Allergy, Intermediate, HIVES, 04/03/19) PLASTIC TAPE, PAPER TAPE OK silver (Verified Allergy, Intermediate, HIVES, 04/03/19) BRYAN GARNER DO May 05, 2020 16:58
--- NOTE | 2020-05-06 09:13 | MHCR ---
DATE OF CONSULTATION: 05/04/2020 CHIEF COMPLAINT: Feels stressed. SUBJECTIVE: He is [id number], single, has a roommate, he also has a son, who is adopted; all three of them live together. Chart is reviewed. The patient is interviewed. I have been asked to see him by Dr. Clemens, hospitalist, to assess for emotional matters that may be exacerbating his condition. 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 Has felt increasingly breathless and weak to the point where he has not been able to walk without assistance. He now uses artificial assistance to walk. This has changed his life traumatically over the last two years where he is unable to work or do things which he had no difficulties doing, performing tasks of daily living. Has had increasing difficulties with breathing, weakness and mobility, has been seen by pulmonology locally and neurology at [facility], gets periods of hypoxia. Has had extensive investigations and workups and the diagnosis is quite unclear. Says was at [facility] at some point in the last couple of years for an extended period of time, investigations were done, he was sent home, lives near [place], says saw his regular doctor there and that he found out that reports from [facility] had suggested that it was all in my head. Says he had never seen any therapist or psychiatrist was not asked to see one while there either. Says has been feeling frustrated with the uncertainties particularly. He has become weak progressively, says at times when he has a hard time breathing, and at other times when he finds it intensely difficult to breath, feels somebody restricting him and that is the sensation he gets because he is increasingly breathless, says he flushes, sweats, feels dizzy, has tingling sensations in all his extremities, this tends to vary and at times experiences periods of derealization and depersonalization, though is not very common. Says this has been more difficult to deal with and acknowledges that at times when he is stressed or frustrated and these experiences occur. Has been on high doses of steroids, which has been tapered, only to be resumed; this has been going on for the better part of a year. Has when he comes in feeling breathless, was given up to 60 mg of prednisone and then tapered, but he has noticed that whenever he goes down from 40 mg a day to 30 mg a day or 20 mg, becomes breathless and finds it harder to breath. This has not been correlated with objective changes. He saw neurology locally, says was told that this was all in his head again, says this infuriated him, indicates neurologist asked him if he used any assistance with walking, did not think that was necessary. The patient since then has seen neurology in [place]. With all of this going on, says noticed that he has become more depressed, over substantial period of time, and then gets frustrated and irritable, says he is short with his parents, notices that he is short with his son as well and feels remorse about it. Feels further frustrated that he is unable to do things that he used to not too long ago including around the house. At times, feels hopeless, but denies that he has ever had suicidal thoughts or any intent. Says when given the high doses of steroids, particularly when he comes in, feels depressed mostly and overall better emotionally when the steroids are tapered, but whenever they go as low as 30 or 20 mg, becomes breathless and anxious again. No history consistent with hypomania, nor heladio. No history consistent with psychosis including when using steroids. No history of consistent with posttraumatic stress disorder. PAST PSYCHIATRIC HISTORY: None formally. He says has not seen a therapist or a psychiatrist, has never been asked to do so either. Was on Zoloft 20 years ago for a bit, a couple of years, was anxious and says he is anxious about matters that he felt his parents would not understand about. He did not go into details. Says that when he informed them of it, felt relieved and then stopped the Zoloft. No history of inpatient psychiatric hospitalizations nor of any suicidal attempts. SUBSTANCE ABUSE HISTORY: None significantly. FAMILY PSYCHIATRIC HISTORY: Denies any. MEDICAL HISTORY: This is quite extensive. As indicated above, continues to experience pulmonary difficulties, sees Dr. Galindo, seen by neurology at [facility] and has become progressively weak, has periods of hypoxia. He says he had been referred to [facility], says had financial concerns and that the clinic apparently has not accepted him, I am not sure of the details. Has a history of bilateral dependent atelectasis. Fatty liver disease. Chronic steroid use. Gastroesophageal reflux disease (GERD). Nephrolithiasis. SURGICAL HISTORY: Has had appendectomy, cholecystectomy and inguinal hernia repair. SOCIAL HISTORY: Lives with his roommate. He also has a son, who he adopted. Has parents who lives on the same property, but who are in [place] for the better part of the year and they stay here for a few months. He says he is hoping to joint them in mid May as they have never been apart for [place]. His sister, who is local, was in the and was recently transferred south. Says his roommate is quite supportive. 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 MENTAL STATUS EXAMINATION: He is sitting up in bed, just about finishing his dinner, has a nasal cannula for oxygen, appears obese, is cooperative, has no agitation, no psychomotor retardation, no abnormal movements as such. He is coherent, speaks spontaneous. Affect fair range, at times mildly tearful, but reconstitutes easily. Denies any suicidal thoughts or intents. No homicidal ideas or intents. No evidence of any psychosis. No fluctuation of consciousness. Does not appear to be internally preoccupied. Intellect average. He is alert and oriented to time, place and person. Can spell the word house forwards and backwards, he recalls 2 out of 3 objects after 5 minutes. Judgment is good. Insight is fair. ASSESSMENT: 1. Other specified depressive disorder. 2. Other specified anxiety disorder. Chronic illnesses: Pulmonary and neurovascular difficulties. Considerable change in circumstances the last couple of years. He is clinically significantly depressed with the progression of his weakness, breathlessness and despite extensive investigations, diagnosis remain unclear. This adds to the anxiety, uncertainty and frustrations including with the clinicians at times. Periods of breathlessness with intense anxiety and no measurable change in parameters are quite possibly manifestations of anxiety/panic attacks as well. Panic attacks and anxiety and pulmonary pathology are not mutually exclusive. RECOMMENDATIONS: Increase the sertraline to 75 mg daily. Consider lorazepam at 0.5 mg daily as needed for severe anxiety, as long as pulmonology is okay with it. He is aware of the risks, benefits and drawbacks of using the lorazepam. Concerns really would be along the lines of respiratory depression if using long-term. (It should also be noted he says he was on lorazepam at night until relatively recently. He took it with the trazodone and felt quite better the following morning, but that it was discontinued because of concerns regarding regular use). I would suggest he would benefit from seeing his therapist as well, as outpatient to help cope with these considerable difficulties that he has experienced for the last couple of years. Thank you for the consult. If any questions, please call. The assessment took 60 minutes. LUCAS
--- NOTE | 2020-05-09 08:40 | IPNPDOC ---
Text Note Date of Service The patient was seen on 05/04/20. NOTE SUBJECTIVE: Patient reports he feels more tired today. He did not use the CPAP last night. He says that his feet and hands are swelling up again as he finds it difficult to bend the fingers adn toes they feel tight. He also complains of persistent headache. Also this morning he was feeling numbness in the left last 3 fingers and lat side of palm. he also reports numbness on both the lateral sides of the thigh. He has mild carpal tunnel on the left. PHYSICAL EXAMINATION: VITAL SIGNS: Please see below GENERAL APPEARANCE: Sitting up in bed in no distress. HEENT: Normal cephalic, atraumatic, EOMI, no scleral icterus or conjunctival injection. Mucous membranes are moist NECK: No JVD, thick short neck. CARDIOVASCULAR: Regular rate and rhythm free of murmurs gallops or rubs LUNGS: Distant breath sounds. Bilateral Vesicular. Poor inspiratory effort. Few bilateral basal crackles. No conversational dyspnea ABDOMEN: Obese, nontender, nondistended, bowel sounds normal. EXTREMITIES: No Lower extremity edema or calf tenderness bilaterally. Both radial and posterior tibial pulses are 2+ bilaterally. No clubbing noted. NEUROLOGICAL: No facial droop, aphasia or dysarthria. 5 out of 5 strength throughout, consistent with previous outpatient examinations. PSYCHIATRIC: Patient appears very anxious, mood and affect are congruent LABORATORY DATA AND RADIOLOGY : Reviewed See below. ASSESSMENT AND PLAN: Patient is a 44-year-old male with PARISH, Chronic steroid use, Migraines, Idiopathic intracranial hypertension, HTN, GERD, RLS, and a history with an unknown diagnosis resulting in progressive weakness and hypoxia. Patient has been followed by both local pulmonology and neurology at [facility]. Unfortunately, a diagnosis to explain the patient's mentioned symptoms has yet to have been made. He has been on chronic steroids for the better part of a year and a half. Over the last 6 weeks, under the guidance of his speed reading teacher, patient's steroids have been steadily tapered. Patient is currently on 20 mg of prednisone by mouth. Patient does carry a history of hospitalization when his steroid dose is lowered to around 20. Patient presented to the emergency department in the evening of 04/30/20 with a 2 day history of increasing shortness of breath and sternal chest pain. Vitals were found to be stable. Laboratory examination did not reveal any significant changes. Serial troponins and EKGs ruled out ACS. CT angiogram was without evidence of PE. There are bibasal atelectasis. Chest x-ray demonstrated chronic changes. Patient had increased his oxygen from 3L to 5 L . He was found to have Respiratory alkalosis in ABG. Current presentation appears, by all accounts, consistent with prior hospitalizations in which symptoms improved only after she has returned to a higher steroid dose as reported by patient. Patient was admitted for evaluation of increased hypoxia from baseline. VELIA from aggressive diuresis will stop lasix today and resume in a day or 2 Hypokalemia from diuresis replaced Bilateral lateral thigh pain probably meralgia paraesthetica reassured the patient that it is benign Advised to avoid wearing tight undergarments and belts to reduce the pressure on the nerve ordered emla Respiratory Alkalosis ? panic attack with hyperventilation . He reports that sometimes he feels like he cant breathe when he is actually breathing and then has an anxious attack and starts breathing very fast and starts feeling tingling in his arms and legs and around his mouth. Weakness both legs and arms with muscle spasms. No neurological disease has been demonstrated yet. Patient has had extensive neurologic work-up at [facility], and extensive pulmonary workup without any definitive diagnosis. NO CIDP demonstrated . EMG normal, Mild carpal tunnel on the left. NCV still pending. [facility] felt there is a large functional component to the weakness. Uses braces to walk. On baclofen and cyclobenzaprine. Has agreed to talk with psychiatry. Chronic respiratory failure with hypoxia Chronic Hypoxia/ Chronic dyspnea Chronic steroid use. No pulmonary etiology has been demonstrated yet Reviewed records form [facility] neurology clinic. CT chest with some atelectasis, poor respiratory effort. No Polycythemia noted. titrate oxygen to 88% to 92% On 3 L at home here on 4 liters will try to wean. PARISH Noncompliance with CPAP at home Echo. Obesity On 3 L oxygen at home BMI of 38.8. Complicating care Chronic Steroid Use about 1.5 years on steroids. Pulmonology and has been monitoring a steroid taper for the last 6 weeks. Patient previously on 60 mg daily. Currently down to 20 mg daily. Similar presentation in 01/29 following a more rapid taper. Given 40 mg Solumedrol in the ED. Will continue prednisone 20 mg daily Idiopathic intracranial hypertension/ migraine reports that had allergic reaction to diamox. So was given topiramate by [facility] Patient has not started taking it. CSF pressure was 30 at one time Anxiety/Depression Patient shares that he was informed today that his insurance would not cover [facility] (to which he was referred to via pulmonology). Continue on home SSRI, Sertraline 50 mg. HTN Normotensive, continue Metoprolol GERD Protonix, Tums Mylanta PRN RLS Ropinirole, Lyrica Insomnia Trazodone, plan to taper outpatient CODE STATUS: Full code DVT PROPHYLAXIS: Lovenox VS,Fishbone, I+O VS, Fishbone, I+O Laboratory Tests 05/04/20 05:20 Vital Signs Date Time Temp Pulse Resp B/P (MAP) Pulse Ox O2 Delivery O2 Flow Rate FiO2 05/04/20 16:00 4.0 05/04/20 15:25 97.9 110 18 129/59 (82) 91 Nasal Cannula I&O- Last 24 Hours up to 6 AM 05/04/20 06:59 Intake Total 1791 ml Output Total 5575 ml Balance -3784 ml RADHIKA JOVEL MD May 04, 2020 19:26
== END 2020-05-05 12:28 | disposition home health service (06) | DRG 425 ==
LOC: M ED 15:26 → M ED INP 23:41 → ENRESERV 05-01 01:14 → M PCU 05-01 02:28
PROVIDERS: ADMIT Internal Medicine; ATTEND Internal Medicine
DX: E87.3 Alkalosis (principal); J96.11 Chronic respiratory failure with hypoxia; K76.0 Fatty (change of) liver, not elsewhere classified; I10 Essential (primary) hypertension; F32.9 Major depressive disorder, single episode, unspecified; J98.11 Atelectasis; G25.81 Restless legs syndrome; K21.9 Gastro-esophageal reflux disease without esophagitis; F41.0 Panic disorder [episodic paroxysmal anxiety]; Z90.49 Acquired absence of other specified parts of digestive tract; M62.81 Muscle weakness (generalized); M94.0 Chondrocostal junction syndrome [Tietze]; G47.33 Obstructive sleep apnea (adult) (pediatric); E66.9 Obesity, unspecified; Z68.38 Body mass index [BMI] 38.0-38.9, adult; Z20.828 Contact with and (suspected) exposure to other viral communicable diseases; G47.00 Insomnia, unspecified; Z79.82 Long term (current) use of aspirin; Z79.52 Long term (current) use of systemic steroids; Z79.899 Other long term (current) drug therapy; Z91.048 Other nonmedicinal substance allergy status; G43.909 Migraine, unspecified, not intractable, without status migrainosus; G93.2 Benign intracranial hypertension; Z91.19 Patient's noncompliance with other medical treatment and regimen

== ENCOUNTER 2020-05-15 21:42 | Observation (INO) | payer OTHER ==
[~2020-05-15] VITALS: Ht 172.7 cm; Wt 115.0 kg
[2020-05-15] MEDS: BACLOFEN 10 MG TAB PO SCH (21:00)
[2020-05-15] MEDS: PANTOPRAZOLE 40MG TAB (PROTONIX) PO SCH (21:00)
[2020-05-15] MEDS: rOPINIRole 1MG TAB PO SCH (21:00)
[2020-05-15] MEDS: PREGABALIN 100 MG CAP (LYRICA) PO SCH (21:00)
[2020-05-15] MEDS: traZODone 25MG PER 1/2 TABLET PO SCH (21:00)
[~2020-05-15 21:42] MED LIST changes: +ACET50CA PO; +DULO20CA27 PO; +KETO2SHA8 TOP; +MELA10CA2 PO; +NYST1POW9 TOP; +PATIENT COMMENT; +PREG300C PO; +SERT25TA85 PO; +TOPI25TA10 PO; +VALS1TAB67 PO; +ZOLO25TA PO
[2020-05-15 22:11] LABS: BASO # 0.1 10^3/uL (0.0-0.2); BASO % 0.6 % (0.0-1.0); EOS # 0.3 10^3/uL (0.0-0.5); HEMATOCRIT 39.9 % (42.0-52.0); HEMOGLOBIN 12.8 g/dl (13.5-17.5); LYMPH # 3.8 10^3/uL (1.5-5.0); LYMPH % 39.9 % (24.0-44.0); MEAN CORPUSCULAR HEMOGLOBIN 27.8 pg (27.0-33.0); MEAN CORPUSCULAR HGB CONC 32.1 g/dl (32.0-36.5); MEAN CORPUSCULAR VOLUME 86.6 fl (80.0-96.0); MONO # 0.8 10^3/uL (0.0-0.8); MONO % 8.7 % (0.0-5.0); NEUTROPHILS # 4.5 10^3/uL (1.5-8.5); NEUTROPHILS % 47.5 % (36.0-66.0); PLATELET COUNT, AUTOMATED 341 10^3/uL (150-450); RED BLOOD COUNT 4.61 10^6/uL (4.30-6.10); WHITE BLOOD COUNT 9.5 10^3/uL (4.0-10.0)
[2020-05-15 22:38] LABS: ALBUMIN 4.1 GM/DL (3.2-5.2); ALT/SGPT 55 U/L (12-78); BILIRUBIN,DIRECT 0.2 MG/DL (0.0-0.2); BILIRUBIN,TOTAL 0.8 MG/DL (0.2-1.0); BLOOD UREA NITROGEN 18 MG/DL (7-18); CARBON DIOXIDE LEVEL 27 MEQ/L (21-32); CHLORIDE LEVEL 104 MEQ/L (98-107); CK-MB VALUE MASS < 1.0 NG/ML (<3.6); CPK CREATINE PHOSPHOKINASE 97 U/L (39-308); CREATININE FOR GFR 1.23 MG/DL (0.70-1.30); GLOMERULAR FILTRATION RATE > 60.0 (>60); GLUCOSE, FASTING 119 MG/DL (70-100); MB/CK RELATIVE INDEX 1.03 (< OR =4); POTASSIUM SERUM 3.7 MEQ/L (3.5-5.1); SODIUM LEVEL 140 MEQ/L (136-145); TOTAL PROTEIN 7.2 GM/DL (6.4-8.2); TROPONIN I < 0.02 NG/ML (< 0.10)
--- NOTE | 2020-05-15 22:43 | REPVR ---
PROCEDURE INFORMATION: Exam: XR Chest, 1 View Exam date and time: 05/15/2020 10:12 PM Age: 44 years old Clinical indication: Other: Cough; Additional info: Dyspnea/cough TECHNIQUE: Imaging protocol: XR of the chest Views: 1 view. COMPARISON: DC Chest, 1 view 04/30/2020 5:27 PM FINDINGS: Lungs: Subtle infiltrate in the right mid lung zone. Lungs are otherwise clear. Pleural space: Unremarkable. No pleural effusion. No pneumothorax. Heart/Mediastinum: Mild cardiomegaly. Bones/joints: Unremarkable. IMPRESSION: 1. Small infiltrate in the right mid lung zone. 2. Mild cardiomegaly. Electronically signed by: Rico Gastelum On 05/15/2020 22:43:56 PM
[2020-05-15] MEDS ORDERED: methylPREDNISolone 125MG 2ML VIAL IV ONE (22:45)
[2020-05-15] MEDS: COMBIVENT RESPIMAT 100-20MCG INHALER 4GM INH SCH ×3 (23:26→23:53)
[2020-05-16] MEDS ORDERED: METAL LOCK LOOP XX ONE (01:51)
[2020-05-16] MEDS ORDERED: DULO60CA35 PO (01:55)
[2020-05-16] MEDS ORDERED: SERT25TA21 PO (01:55)
[2020-05-16] MEDS ORDERED: FURO40TA2 PO (01:55)
[2020-05-16] MEDS ORDERED: TRAZ-252 PO (01:56)
[2020-05-16] MEDS ORDERED: CYCLOBENZAPRINE 5MG TABLET PO PRN (02:15)
[2020-05-16] MEDS ORDERED: ACETAMINOPHEN TAB 650MG DOSE (2X325MG) PO PRN (02:15)
--- NOTE | 2020-05-16 02:43 | HPEPDOC ---
[facility] Medical History & Physical Date of Admission May 16, 2020 Date of Service: May 16, 2020 History and Physical Chief complaint: Presented to the emergency room with complaints of shortness of breath History of present illness: Patient is a 44-year-old male with comorbidities who presented to the emergency room with complaints of shortness of breath occurring for the last few days. Patient was recently admitted to [facility] from 04/30 to 05/05 for shortness of breath that he had attributed to a reduction of his prednisone dose. During that hospital course, patients steroid dose was increased and tapered back down to his home dose (Prednisone 20mg) and subsequently discharged home. On arrival to ER, he is reported that he experiences shortness of breath every time the dose of his prednisone is at 20 mg. Patient continues to remain on prednisone 20 mg and reports shortness of breath. He notes that hes been experiencing shortness of breath and chest tightness with some wheezing and a nonproductive cough. Denies any chest pain or palpit ations. Denies any nausea, vomiting, abdominal pain, constipation, diarrhea, or urinary discomfort. Has not experience any fevers or chills. Past Medical History: Chronic hypoxic respiratory failure Chronic steroid Dependence / PCP prophylaxis Weakness of bilateral upper / lower extremities - Not Chronic inflammatory demyelinating polyneuropathy PARISH (not compliant with CPAP) HTN Depression Nephrolithiasis Fatty Liver Disease RLS Migraine headache / Idiopathic Intracranial HTN GERD Past Surgical History: Appendectomy Cholecystectomy Inguinal hernia repair Allergies: See below Medications: See below Family History: - Reviewed and noncontributory Social History: - Denies the use of tobacco or illicit drugs; Reports social alcohol use - Denies recent travel or sick contacts - Lives alone - Occupation; disability Review of Systems: 10 point review of systems complete, all negative otherwise stated in HPI Physical exam: - Vitals: BP [146/87], HR [93], RR [22], Sat [96%NC3L], Temp [97.9F] - General: Sitting up in bed, Speaking in full sentences but softly, AAOx3 - HEENT: NC, AT, PERRLA - CVS: RRR, +S1S2, - Murmurs / rubs / gallops - Lungs: Poor inspiratory effort bilaterally, No appreciable wheezing / rales / rhonchi on auscultation - Abdomen: Soft, Non-distended, Non-tender - Extremities: No lower extremity edema, Bilateral braces in place, No calf tend erness - Neuro: No focal motor or sensory deficit - Skin: No visible rashes Labs: See below Imaging: CXR 05/16: 1. Small infiltrate in the right mid lung zone. 2. Mild cardiomegaly. EKG: See below Assessment and Plan: Chronic hypoxic respiratory failure - Patient reports worsening shortness of breath; however, appears to be sitting in bed comfortably - Physical reveals no wheezing on auscultation - No leukocytosis - ABG noted without any significant abnormalities; 7.397/38.7/81/23.8 - Respiratory panel 05/15: Enterovirus - Imaging noted above; currently patient does not have a clinical picture of pneumonia - Will check procalcitonin - Will place on observation - currently appears to be at baseline - Will continue home dose of prednisone dose at 20mg daily - Patient does not taking any inhaled therapy at home - Will start incentive spirometry / acapella Weakness of bilateral legs / arms with spasms - Patient has a had extensive neurological workup at [facility]; no evidence of CIDP - EMG reported to be normal - Patient is to have nerve conduction velocity testing completed as outpatient - c/w bilateral leg braces - c/w Baclofen / Cyclobenzaprine / Pregabalin Chronic steroid Dependence / PCP prophylaxis - Patient has been on oral steroids for greater than 1.5 years - Follow with Pulmonology as an outpatient; Dr. Galindo - c/w Prednisone at current dose - c/w Bactrim for PCP prophylaxis PARISH - Non-compliant with CPAP HTN - BP currently is well controlled - c/w Metoprolol and HCTZ with hold parameters Depression / Insomnia - c/w Duloxetine / Sertraline / Trazodone Nephrolithiasis Fatty Liver Disease RLS - c/w Ropinirole / Lyrica Migraine headache / Idiopathic Intracranial HTN - c/w Topiramate Obesity - BMI of 39.2 - Complicating medical care Vitamin D deficiency - c/w Supplementation GERD - Will c/w Protonix / Tums / Mylanta DVT prophylaxis - Will start Heparin SQ Vital Signs Vital Signs Date Time Temp Pulse Resp B/P (MAP) Pulse Ox O2 Delivery O2 Flow Rate FiO2 05/16/20 02:00 93 16 134/72 (92) 95 05/15/20 21:43 97.9 Nasal Cannula 4.0 Laboratory Data Labs 24H Laboratory Tests 2 05/15/20 22:01: Immature Granulocyte % (Auto) 0.3, Neutrophils (%) (Auto) 47.5, Lymphocytes (%) (Auto) 39.9, Monocytes (%) (Auto) 8.7H, Eosinophils (%) (Auto) 3.0, Basophils (%) (Auto) 0.6, Neutrophils # (Auto) 4.5, Lymphocytes # (Auto) 3.8, Monocytes # (Auto) 0.8, Eosinophils # (Auto) 0.3, Basophils # (Auto) 0.1, Nucleated Red Blood Cells % (auto) 0.0, Anion Gap 9, Glomerular Filtration Rate > 60.0, Calcium Level 9.0, Total Bilirubin 0.8, Direct Bilirubin 0.2, Aspartate Amino Transf (AST/SGOT) 23, Alanine Aminotransferase (ALT/SGPT) 55, Alkaline Phosphatase 106, Total Creatine Kinase 97, Creatine Kinase MB < 1.0, Creatine Kinase MB Relative Index 1.03, Troponin I < 0.02, Total Protein 7.2, Albumin 4.1 , Albumin/Globulin Ratio 1.3 05/15/20 23:20: POC pH (Misc Panel) 7.397, POC Base Excess (Misc Panel) -1.0, POC Saturated Percent O2 (Misc) 96, POC pO2 (Misc Panel) 81.0, POC pCO2 (Misc Panel) 38.7, POC HCO3 (Misc Panel) 23.8, POC Total CO2 (Misc Panel) 25.0 CBC/BMP Laboratory Tests 05/15/20 22:01 Microbiology Microbiology 05/15/20 Respiratory Virus Panel (PCR) ([facility]) - Final, Complete Human Rhinovirus/Enterovirus Home Medications Scheduled Aspirin (Aspirin EC) 81 Mg Tablet.dr, 81 MG PO DAILY Baclofen (Baclofen) 10 Mg Tablet, 10 MG PO TID Calcitriol (Calcitriol) 0.25 Mcg Capsule, 0.25 MCG PO DAILY Calcium Carbonate (Tums) 200 Mg Tab.chew, 1,000 MG PO WM Duloxetine HCl (Duloxetine HCl) 60 Mg Capsule.dr, 60 MG PO DAILY Ergocalciferol (Vitamin D2) (Vitamin D2) 50,000 Units Cap, 50,000 UNITS PO QWEEK MONDAYS Furosemide (Furosemide) 40 Mg Tablet, 40 MG PO DAILY Hydrochlorothiazide (Hydrochlorothiazide) 25 Mg Tablet, 25 MG PO DAILY Ketoconazole (Ketoconazole) 120 Ml Shampoo, 1 DOSE TOP Q2D Melatonin (Melatonin) 10 Mg Capsule, 10 MG PO QHS Metoprolol Succinate (Metoprolol Succinate) 100 Mg Tab.er.24h, 100 MG PO DAILY Pantoprazole Sodium (Pantoprazole Sodium) 40 Mg Tablet.dr, 40 MG PO BID Potassium Chloride (Potassium Chloride) 10 Meq Tab.er.prt, 20 MEQ PO DAILY Pregabalin (Pregabalin) 300 Mg Capsule, 300 MG PO BID Ropinirole HCl (Ropinirole HCl) 1 Mg Tablet, 1 MG PO QHS Sertraline HCl (Sertraline HCl) 50 Mg Tablet, 50 MG PO DAILY takes with 25mg to equal 75mg Sertraline HCl (Sertraline HCl) 25 Mg Tablet, 25 MG PO DAILY takes with 50mg to equal 75mg Sulfamethoxazole/Trimethoprim (Bactrim Ds Tablet) 1 Each Tablet, 1 TAB PO 3XW MONDAY, MONDAY AND MONDAY Topiramate (Topiramate) 25 Mg Tablet, 25 MG PO DAILY patient taking 25 mg daily until 05/17/20 then increases to 50mg daily Trazodone HCl (Trazodone HCl) 50 Mg Tablet, 75 MG PO QHS Valsartan (Valsartan) 160 Mg Tablet, 160 MG PO DAILY Scheduled PRN Cyclobenzaprine HCl (Cyclobenzaprine HCl) 5 Mg Tablet, 5 MG PO QHS PRN for MUSCLE SPASMS Allergies Coded Allergies: TAPE (Verified Allergy, Intermediate, HIVES, 04/03/19) PLASTIC TAPE, PAPER TAPE OK silver (Verified Allergy, Intermediate, HIVES, 04/03/19) acetazolamide (Verified Allergy, Unknown, " out of it", 05/15/20) UMAIR HARRISON MD May 16, 2020 02:43
[2020-05-16] MEDS: HEPARIN SOD (PORCINE) 5000UNITS/ML 1ML VIAL/SYRINGE SC SCH ×3 (05:54→21:04)
[2020-05-16 06:00] VITALS: BP 140/75
[2020-05-16] MEDS ORDERED: FUROSEMIDE 40 MG TAB PO SCH (09:00)
[2020-05-16] MEDS: VALSARTAN 80 MG TAB (DIOVAN) PO SCH (09:00)
[2020-05-16] MEDS: CALCITRIOL 0.25 MCG CAP (S0169) PO SCH (09:33)
[2020-05-16] MEDS: predniSONE 20 MG TAB PO SCH (09:33)
[2020-05-16] MEDS: POTASSIUM CHLORIDE 10 MEQ SR TABLET PO SCH (09:33)
[2020-05-16] MEDS: hydroCHLOROthiazide 25 MG TAB PO SCH (09:33)
[2020-05-16] MEDS: CALCIUM CARBONATE 500 MG CHEW U/D PO SCH ×3 (09:33→17:41)
[2020-05-16] MEDS: TOPIRAMATE (TopAMAX) 25 MG TAB PO SCH (09:34)
[2020-05-16] MEDS: SERTRALINE HCL 50 MG TAB PO SCH (09:34)
[2020-05-16] MEDS: PANTOPRAZOLE 40MG TAB (PROTONIX) PO SCH ×2 (09:34→21:06)
[2020-05-16] MEDS: ASPIRIN 81 MG ENTERIC TAB PO SCH (09:34)
[2020-05-16] MEDS: DULoxetine 30 MG CAP (CYMBALTA) PO SCH (09:34)
[2020-05-16] MEDS: SERTRALINE HCL 25 MG TABLET PO SCH (09:34)
[2020-05-16] MEDS: BACLOFEN 10 MG TAB PO SCH ×3 (09:35→21:06)
[2020-05-16] MEDS: PREGABALIN 100 MG CAP (LYRICA) PO SCH ×2 (09:35→21:05)
[2020-05-16] MEDS: METOPROLOL SUCC (TopROL XL) 100MG *XL* TAB PO SCH (09:36)
--- NOTE | 2020-05-16 13:32 | IPNPDOC ---
Text Note Date of Service The patient was seen on 05/16/20. NOTE Subjective: Pt c/o dyspnea and generalized weakness. Patient denied fever, ch ills, nausea, vomiting, chest pain, diarrhea or dysuria Objective: GENERAL APPEARANCE: NAD HEENT: no scleral icterus, no JVD, EOMI CARDIOVASCULAR: S1S2 LUNGS: diminished lungs bl ABDOMEN: soft & not tender w palpitation MUSCULOSKELETAL: no cyanosis, no swelling INTEGUMENT: no generalized pallor NEUROLOGICAL: cranial nerve function from 2-12 intact intact, follows commands, speech not dysarthric Assessment and plan Patient is 44 years old male with past history of chronic hypoxemic respiratory failure, weakness of upper and lower extremities bilaterally, obstructive sleep apnea, depression who presented to the hospital with increased shortness of breath. Chronic hypoxic respiratory failure Patient chronically on oxygen 4 L at home Patient does not have fever or leukocytosis. Chest x-ray showed Small infiltrate in the right mid lung zone. Mild cardiomegaly. Await procalcitonin Patient was tested positive for rhinovirus/ enterovirus infection Continue prednisone 20 mg daily Continue incentive spirometry/acapella Continuous inhalers Weakness of bilateral legs / arms with spasms Patient has a had extensive neurological workup at [facility]; no evidence of CIDP EMG reported to be normal Patient is to have nerve conduction velocity testing completed as outpatient c/w bilateral leg braces c/w Baclofen / Cyclobenzaprine / Pregabalin Chronic steroid Dependence / PCP prophylaxis Patient has been on oral steroids for greater than 1.5 years Follow with Pulmonology as an outpatient; Dr. Galindo c/w Prednisone at current dose c/w Bactrim for PCP prophylaxis PARISH Non-compliant with CPAP HTN BP currently is well controlled c/w Metoprolol and HCTZ with hold parameters Depression / Insomnia c/w Duloxetine / Sertraline / Trazodone Nephrolithiasis Fatty Liver Disease RLS c/w Ropinirole / Lyrica Migraine headache / Idiopathic Intracranial HTN c/w Topiramate Obesity BMI of 39.2 Complicating medical care Vitamin D deficiency c/w Supplementation GERD c/w Protonix / Tums / Mylanta DVT prophylaxis Heparin SQ VS,Fishbone, I+O VS, Fishbone, I+O Laboratory Tests 05/15/20 22:01 Vital Signs Date Time Temp Pulse Resp B/P (MAP) Pulse Ox O2 Delivery O2 Flow Rate FiO2 05/16/20 09:40 4.0 05/16/20 09:36 112 119/70 05/16/20 06:00 97.9 19 96 Nasal Cannula I&O- Last 24 Hours up to 6 AM 05/16/20 06:00 Output Total 0 ml Balance 0 ml BRYAN GARNER DO May 16, 2020 13:32
[2020-05-16 14:00] VITALS: BP 118/87
--- NOTE | 2020-05-16 16:43 | ECGEPIP ---
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
[2020-05-16] MEDS: FUROSEMIDE 40MG/4ML VIAL (J1940) IV SCH (16:48)
[2020-05-16] MEDS ORDERED: RAMELTEON 8 MG TAB (ROZEREM) PO SCH (21:00)
[2020-05-16] MEDS: traZODone 25MG PER 1/2 TABLET PO SCH (21:05)
[2020-05-16] MEDS: rOPINIRole 1MG TAB PO SCH (21:06)
[2020-05-16 22:00] VITALS: BP 119/86
[2020-05-17] MEDS: HEPARIN SOD (PORCINE) 5000UNITS/ML 1ML VIAL/SYRINGE SC SCH (05:45)
[2020-05-17 06:00] VITALS: BP 124/65
[2020-05-17 06:47] LABS: BASO # 0.1 10^3/uL (0.0-0.2); BASO % 0.4 % (0.0-1.0); EOS # 0.2 10^3/uL (0.0-0.5); EOS % 1.5 % (0.0-3.0); HEMATOCRIT 37.6 % (42.0-52.0); HEMOGLOBIN 12.6 g/dl (13.5-17.5); LYMPH # 4.2 10^3/uL (1.5-5.0); MEAN CORPUSCULAR HEMOGLOBIN 29.3 pg (27.0-33.0); MEAN CORPUSCULAR HGB CONC 33.5 g/dl (32.0-36.5); MEAN CORPUSCULAR VOLUME 87.4 fl (80.0-96.0); MONO # 0.9 10^3/uL (0.0-0.8); NEUTROPHILS % 59.7 % (36.0-66.0); PLATELET COUNT, AUTOMATED 312 10^3/uL (150-450); WHITE BLOOD COUNT 13.4 10^3/uL (4.0-10.0)
[2020-05-17 07:40] LABS: BLOOD UREA NITROGEN 18 MG/DL (7-18); CREATININE FOR GFR 1.11 MG/DL (0.70-1.30); GLUCOSE, FASTING 120 MG/DL (70-100)
[2020-05-17 07:41] LABS: CALCIUM LEVEL 9.2 MG/DL (8.5-10.1); CARBON DIOXIDE LEVEL 27 MEQ/L (21-32); CHLORIDE LEVEL 102 MEQ/L (98-107); GLOMERULAR FILTRATION RATE > 60.0 (>60); MAGNESIUM LEVEL 2.2 MG/DL (1.8-2.4); SODIUM LEVEL 137 MEQ/L (136-145)
[2020-05-17 08:30] VITALS: BP 152/77
[2020-05-17] MEDS: TOPIRAMATE (TopAMAX) 25 MG TAB PO SCH (08:30)
[2020-05-17] MEDS: METOPROLOL SUCC (TopROL XL) 100MG *XL* TAB PO SCH (08:30)
[2020-05-17] MEDS: SERTRALINE HCL 50 MG TAB PO SCH (08:30)
[2020-05-17] MEDS: SERTRALINE HCL 25 MG TABLET PO SCH (08:31)
[2020-05-17] MEDS: CALCITRIOL 0.25 MCG CAP (S0169) PO SCH (08:31)
[2020-05-17] MEDS: predniSONE 20 MG TAB PO SCH (08:31)
[2020-05-17] MEDS: PREGABALIN 100 MG CAP (LYRICA) PO SCH (08:31)
[2020-05-17] MEDS: POTASSIUM CHLORIDE 10 MEQ SR TABLET PO SCH (08:31)
[2020-05-17] MEDS: FUROSEMIDE 40MG/4ML VIAL (J1940) IV SCH (08:31)
[2020-05-17] MEDS: BACLOFEN 10 MG TAB PO SCH (08:31)
[2020-05-17] MEDS: ASPIRIN 81 MG ENTERIC TAB PO SCH (08:31)
[2020-05-17] MEDS: DULoxetine 30 MG CAP (CYMBALTA) PO SCH (08:31)
[2020-05-17] MEDS: PANTOPRAZOLE 40MG TAB (PROTONIX) PO SCH (08:32)
[2020-05-17] MEDS: VALSARTAN 80 MG TAB (DIOVAN) PO SCH (08:32)
[2020-05-17] MEDS: CALCIUM CARBONATE 500 MG CHEW U/D PO SCH (08:32)
[2020-05-17] MEDS: hydroCHLOROthiazide 25 MG TAB PO SCH (08:32)
[2020-05-17] MEDS ORDERED: FURO40TA2 PO (10:19)
--- NOTE | 2020-05-17 13:17 | DS.PDOC ---
Discharge Summary General Date of Admission May 16, 2020 at 02:07 Date of Discharge 05/17/20 Discharge Summary PROCEDURES PERFORMED DURING STAY: [None]. ADMITTING DIAGNOSES: Chronic hypoxic respiratory failure Chronic steroid Dependence / PCP prophylaxis PARISH HTN Depression / Insomnia Nephrolithiasis Fatty Liver Disease RLS Migraine headache / Idiopathic Intracranial HTN Obesity Vitamin D deficiency GERD DISCHARGE DIAGNOSES: Chronic hypoxic respiratory failure Chronic steroid Dependence / PCP prophylaxis PARISH HTN Depression / Insomnia Nephrolithiasis Fatty Liver Disease RLS Migraine headache / Idiopathic Intracranial HTN Obesity Vitamin D deficiency GERD COMPLICATIONS/CHIEF COMPLAINT: Dyspnea, Rhinovirus. HISTORY OF PRESENT ILLNESS: Patient is 44 years old male with past history of chronic hypoxemic respiratory failure, weakness of upper and lower extremities bilaterally, obstructive sleep apnea, depression who presented to the hospital with increased shortness of breath. HOSPITAL COURSE: During hospital stay with following issue addressed Chronic hypoxic respiratory failure Patient chronically on oxygen 4 L at home Patient does not have fever or leukocytosis. Chest x-ray showed Small infiltrate in the right mid lung zone. Mild cardiomegaly. Await procalcitonin Patient was tested positive for rhinovirus/ enterovirus infection Continue prednisone 20 mg daily Continue incentive spirometry/acapella Continuous inhalers Weakness of bilateral legs / arms with spasms Patient has a had extensive neurological workup at [facility]; no evidence of CIDP EMG reported to be normal Patient is to have nerve conduction velocity testing completed as outpatient c/w bilateral leg braces c/w Baclofen / Cyclobenzaprine / Pregabalin Chronic steroid Dependence / PCP prophylaxis Patient has been on oral steroids for greater than 1.5 years Follow with Pulmonology as an outpatient; Dr. Galindo c/w Prednisone at current dose c/w Bactrim for PCP prophylaxis PARISH Non-compliant with CPAP HTN BP currently is well controlled c/w Metoprolol and HCTZ with hold parameters Depression / Insomnia c/w Duloxetine / Sertraline / Trazodone Nephrolithiasis Fatty Liver Disease RLS c/w Ropinirole / Lyrica Migraine headache / Idiopathic Intracranial HTN c/w Topiramate Obesity BMI of 39.2 Complicating medical care Vitamin D deficiency c/w Supplementation GERD c/w Protonix / Tums / Mylanta DVT prophylaxis Heparin SQ DISCHARGE MEDICATIONS: Please see below. ALLERGIES: Please see below. PHYSICAL EXAMINATION ON DISCHARGE: VITAL SIGNS: Please see below. GENERAL APPEARANCE: NAD HEENT: no scleral icterus, no JVD, EOMI CARDIOVASCULAR: S1S2 LUNGS: diminished lungs bl ABDOMEN: soft & not tender w palpitation MUSCULOSKELETAL: no cyanosis, no swelling INTEGUMENT: no generalized pallor NEUROLOGICAL: cranial nerve function from 2-12 intact intact, follows commands, speech not dysarthric LABORATORY DATA: Please see below. IMAGING: PROCEDURE INFORMATION: Exam: XR Chest, 1 View Exam date and time: 05/15/2020 10:12 PM Age: 44 years old Clinical indication: Other: Cough; Additional info: Dyspnea/cough TECHNIQUE: Imaging protocol: XR of the chest Views: 1 view. COMPARISON: MI Chest, 1 view 04/30/2020 5:27 PM FINDINGS: Lungs: Subtle infiltrate in the right mid lung zone. Lungs are otherwise clear. Pleural space: Unremarkable. No pleural effusion. No pneumothorax. Heart/Mediastinum: Mild cardiomegaly. Bones/joints: Unremarkable. IMPRESSION: 1. Small infiltrate in the right mid lung zone. 2. Mild cardiomegaly. Electronically signed by: Rico Post On 05/15/2020 22:43:56 PM DD: RICO POST MD 05/15/20 0768 PROGNOSIS: Fair ACTIVITY: [As tolerated]. DIET: Cardiac DISPOSITION: 06 Home Health Service. ITEMS TO FOLLOWUP ON ON OUTPATIENT: Follow-up with rat breeder in 1 week DISCHARGE CONDITION: [Stable]. TIME SPENT ON DISCHARGE: Greater [id number]. Vital Signs/I&Os Vital Signs Date Time Temp Pulse Resp B/P (MAP) Pulse Ox O2 Delivery O2 Flow Rate FiO2 05/17/20 08:30 4.0 05/17/20 08:30 84 152/77 05/17/20 06:00 97.7 19 95 Nasal Cannula I&O- Last 24 Hours up to 6 AM 05/17/20 06:00 Intake Total 1255 ml Output Total 3240 ml Balance -1985 ml Laboratory Data Labs 24H Laboratory Tests 2 05/17/20 06:19: Immature Granulocyte % (Auto) 0.4, Neutrophils (%) (Auto) 59.7, Lymphocytes (%) (Auto) 31.0, Monocytes (%) (Auto) 7.0H, Eosinophils (%) (Auto) 1.5, Basophils (%) (Auto) 0.4, Neutrophils # (Auto) 8.0, Lymphocytes # (Auto) 4.2, Monocytes # (Auto) 0.9H, Eosinophils # (Auto) 0.2, Basophils # (Auto) 0.1, Nucleated Red Blood Cells % (auto) 0.0, Anion Gap 8, Glomerular Filtration Rate > 60.0, Calcium Level 9.2, Magnesium Level 2.2 CBC/BMP Laboratory Tests 05/17/20 06:19 Microbiology Microbiology 05/15/20 Respiratory Virus Panel (PCR) ([facility]) - Final, Complete Human Rhinovirus/Enterovirus Discharge Medications Scheduled Aspirin (Aspirin EC) 81 Mg Tablet.dr, 81 MG PO DAILY, (Reported) Baclofen (Baclofen) 10 Mg Tablet, 10 MG PO TID, (Reported) Calcitriol (Calcitriol) 0.25 Mcg Capsule, 0.25 MCG PO DAILY, (Reported) Calcium Carbonate (Tums) 200 Mg Tab.chew, 1,000 MG PO WM, (Reported) Duloxetine HCl (Duloxetine HCl) 60 Mg Capsule.dr, 60 MG PO DAILY, (Reported) Ergocalciferol (Vitamin D2) (Vitamin D2) 50,000 Units Cap, 50,000 UNITS PO QWEEK, (Reported) MONDAYS Furosemide (Furosemide) 40 Mg Tablet, 60 MG PO DAILY Hydrochlorothiazide (Hydrochlorothiazide) 25 Mg Tablet, 25 MG PO DAILY, (Reported) Ketoconazole (Ketoconazole) 120 Ml Shampoo, 1 DOSE TOP Q2D, (Reported) Melatonin (Melatonin) 10 Mg Capsule, 10 MG PO QHS, (Reported) Metoprolol Succinate (Metoprolol Succinate) 100 Mg Tab.er.24h, 100 MG PO DAILY, (Reported) Pantoprazole Sodium (Pantoprazole Sodium) 40 Mg Tablet.dr, 40 MG PO BID, (Reported) Potassium Chloride (Potassium Chloride) 10 Meq Tab.er.prt, 20 MEQ PO DAILY, (Reported) Pregabalin (Pregabalin) 300 Mg Capsule, 300 MG PO BID, (Reported) Ropinirole HCl (Ropinirole HCl) 1 Mg Tablet, 1 MG PO QHS, (Reported) Sertraline HCl (Sertraline HCl) 50 Mg Tablet, 50 MG PO DAILY, (Reported) takes with 25mg to equal 75mg Sertraline HCl (Sertraline HCl) 25 Mg Tablet, 25 MG PO DAILY, (Reported) takes with 50mg to equal 75mg Sulfamethoxazole/Trimethoprim (Bactrim Ds Tablet) 1 Each Tablet, 1 TAB PO 3XW, (Reported) MONDAY, MONDAY AND MONDAY Topiramate (Topiramate) 25 Mg Tablet, 25 MG PO DAILY, (Reported) patient taking 25 mg daily until 05/17/20 then increases to 50mg daily Trazodone HCl (Trazodone HCl) 50 Mg Tablet, 75 MG PO QHS, (Reported) Valsartan (Valsartan) 160 Mg Tablet, 160 MG PO DAILY, (Reported) Scheduled PRN Cyclobenzaprine HCl (Cyclobenzaprine HCl) 5 Mg Tablet, 5 MG PO QHS PRN for MUSCLE SPASMS, (Reported) Allergies Coded Allergies: TAPE (Verified Allergy, Intermediate, HIVES, 04/03/19) PLASTIC TAPE, PAPER TAPE [place] silver (Verified Allergy, Intermediate, HIVES, 04/03/19) acetazolamide (Verified Allergy, Unknown, " out of it", 05/15/20) BRYAN GARNER DO May 17, 2020 13:17
[2020-05-18] MEDS ORDERED: VITAMIN D 50,000 UNITS CAPSULE (ERGOCALCIFEROL 1.25MG) PO SCH (09:00)
[2020-05-18] MEDS ORDERED: BACTRIM 160MG/800MG DS TAB PO SCH (09:00)
== END 2020-05-17 12:23 | disposition home health service (06) ==
LOC: M ED 21:42 → M ED INP 21:43 → UNDOADMOB 05-16 02:07 → M ED INP 05-16 02:07 → ENRESERV 05-16 04:11 → M ED INP 05-16 05:09 → M MSPAV 05-16 05:09 → UNDODISOB 05-17 12:23
PROVIDERS: ADMIT Internal Medicine; ATTEND Internal Medicine
DX: J96.11 Chronic respiratory failure with hypoxia (principal); B34.8 Other viral infections of unspecified site; G47.33 Obstructive sleep apnea (adult) (pediatric); G47.00 Insomnia, unspecified; I10 Essential (primary) hypertension; Z79.52 Long term (current) use of systemic steroids; F32.9 Major depressive disorder, single episode, unspecified; K76.0 Fatty (change of) liver, not elsewhere classified; Z99.81 Dependence on supplemental oxygen; G25.81 Restless legs syndrome; G93.2 Benign intracranial hypertension; E55.9 Vitamin D deficiency, unspecified; K21.9 Gastro-esophageal reflux disease without esophagitis; Z79.82 Long term (current) use of aspirin; E66.9 Obesity, unspecified; Z79.899 Other long term (current) drug therapy; Z88.8 Allergy status to other drugs, medicaments and biological substances; Z91.048 Other nonmedicinal substance allergy status; N20.0 Calculus of kidney
CPT/HCPCS: 36415; 36600; 71045; 80048; 80076; 82550; 82553; 82803; 83735; 84145; 85025; 87486; 87581; 87633; 87798; 93005; 93041; 94640; 96372; 96374; 96375; 96376; 99285; J1644; J1940; J2930

== ENCOUNTER → 2020-05-18 | Outpatient (REF) | payer OTHER ==
[~2020-05-18] MED LIST changes: +DULO60CA35 PO; +FURO40TA2 PO; +SERT25TA21 PO
[2020-05-18 18:35] LABS: ALBUMIN 4.3 GM/DL (3.2-5.2); ALT/SGPT 61 U/L (12-78); BILIRUBIN,TOTAL 0.7 MG/DL (0.2-1.0); BLOOD UREA NITROGEN 20 MG/DL (7-18); CALCIUM LEVEL 9.3 MG/DL (8.5-10.1); CARBON DIOXIDE LEVEL 29 MEQ/L (21-32); CHLORIDE LEVEL 102 MEQ/L (98-107); GLOMERULAR FILTRATION RATE > 60.0 (>60); GLUCOSE, FASTING 114 MG/DL (70-100); POTASSIUM SERUM 4.8 MEQ/L (3.5-5.1); SODIUM LEVEL 139 MEQ/L (136-145); TOTAL PROTEIN 7.5 GM/DL (6.4-8.2)
== END ==
LOC: M LAB REF 17:06
PROVIDERS: ATTEND Internal Medicine Pulmonary Disease
DX: R94.2 Abnormal results of pulmonary function studies (principal)

== ENCOUNTER → 2020-06-09 | Outpatient (CLI) | payer OTHER ==
--- NOTE | 2020-06-09 09:25 | REP ---
INDICATION: ABNORMAL RESULTS OF PULMONARY FUNCTION STUDY COMPARISON: 05/15/2020 TECHNIQUE: PA and lateral. FINDINGS: The mediastinum and cardiac silhouette are normal. The lung solis demonstrate bibasilar airspace disease suggesting atelectasis and or pneumonia. Correlation is required. No effusion. No pneumothorax. Skeletal structures intact. IMPRESSION: Bibasilar airspace disease requires follow-up to resolution. <Electronically signed by Alex Garsia > 06/09/20 [id number]
== END ==
LOC: M RAD 08:56
PROVIDERS: ATTEND Internal Medicine Pulmonary Disease
DX: R94.2 Abnormal results of pulmonary function studies (principal)

== ENCOUNTER 2020-06-16 18:29 | Inpatient (IN) | payer OTHER ==
[~2020-06-16] VITALS: Ht 172.7 cm; Wt 114.5 kg
[2020-06-16] MEDS ORDERED: ACETAMINOPHEN TAB 650MG DOSE (2X325MG) PO ONE (22:00)
[2020-06-16] MEDS ORDERED: NS 500 ML IV ONE (22:00)
[2020-06-16] MEDS ORDERED: IPRATROPIUM 0.5MG/ALBUTEROL 2.5MG INH SOL UD 3ML (DUONEB) NEB ONE (22:15)
[2020-06-16 22:23] LABS: ABG BASE EXCESS 2.9 (-2.0-2.0); ABG HCO3 26.9 MEQ/L (22.0-26.0); ABG O2 SATURATION 96.9 % (95.0-99.0); ABG PARTIAL PRESSURE CO2 38.9 mmHg (35.0-45.0); ABG PARTIAL PRESSURE O2 85.8 mmHg (75.0-100.0); ABG STANDARD HCO3 27.1 MEQ/L (22.0-26.0); ABG TOTAL CO2 28.1 MEQ/L (22.0-29.0); ABG pH (ARTERIAL) 7.457 UNITS (7.350-7.450)
[2020-06-16] MEDS ORDERED: TORS100T PO (22:26)
[2020-06-16] MEDS ORDERED: METH5TAB76 PO (22:26)
--- NOTE | 2020-06-16 22:34 | REPVR ---
PROCEDURE INFORMATION: Exam: XR Chest, 2 Views Exam date and time: 06/16/2020 10:19 PM Age: 44 years old Clinical indication: Other: SOB cough; Additional info: SOB, cough TECHNIQUE: Imaging protocol: XR of the chest Views: 2 views. COMPARISON: CR PORTABLE CHEST X-RAY 05/15/2020 10:07 PM FINDINGS: Lungs: There is decreased inflation of the lungs. Minimal left base infiltrate or atelectasis with decreased delineation of the left hemidiaphragm since the prior study. Pleural space: Blunted left costophrenic angle which is similar to the prior study. Heart/Mediastinum: Unremarkable. No cardiomegaly. Bones/joints: Unremarkable. Soft tissues: There are moderately generous overlying soft tissues. IMPRESSION: 1. Minimal left base infiltrate or atelectasis since 05/15/2020. Minimal left pleural effusion is not excluded although the costophrenic angle is similar to the prior study. 2. Otherwise stable poor inspiratory chest. Electronically signed by: Ja Daugherty On 06/16/2020 22:34:35 PM
[2020-06-16 23:03] LABS: BASO # 0.1 10^3/uL (0.0-0.2); BASO % 0.8 % (0.0-1.0); EOS % 0.5 % (0.0-3.0); HEMATOCRIT 42.4 % (42.0-52.0); HEMOGLOBIN 13.6 g/dl (13.5-17.5); LYMPH # 3.1 10^3/uL (1.5-5.0); LYMPH % 39.1 % (24.0-44.0); MEAN CORPUSCULAR HEMOGLOBIN 28.2 pg (27.0-33.0); MEAN CORPUSCULAR HGB CONC 32.1 g/dl (32.0-36.5); MEAN CORPUSCULAR VOLUME 87.8 fl (80.0-96.0); MONO % 12.6 % (0.0-5.0); NEUTROPHILS # 3.7 10^3/uL (1.5-8.5); NEUTROPHILS % 46.5 % (36.0-66.0); PLATELET COUNT, AUTOMATED 273 10^3/uL (150-450); RED BLOOD COUNT 4.83 10^6/uL (4.30-6.10); WHITE BLOOD COUNT 7.9 10^3/uL (4.0-10.0)
[2020-06-16 23:13] LABS: INR 0.99; PROTHROMBIN TIME 13.3 SECONDS (12.5-14.3)
[2020-06-16 23:14] LABS: PARTIAL THROMBOPLASTIN TIME 32.1 SECONDS (24.2-38.5)
[2020-06-16 23:16] LABS: D-DIMER QUANT 503.46 ng/ml (<500)
[2020-06-16 23:42] LABS: ALBUMIN 4.5 GM/DL (3.2-5.2); ALT/SGPT 108 U/L (12-78); BILIRUBIN,DIRECT 0.2 MG/DL (0.0-0.2); BLOOD UREA NITROGEN 23 MG/DL (7-18); CALCIUM LEVEL 9.3 MG/DL (8.5-10.1); CARBON DIOXIDE LEVEL 30 MEQ/L (21-32); CHLORIDE LEVEL 96 MEQ/L (98-107); CK-MB VALUE MASS < 1.0 NG/ML (<3.6); CPK CREATINE PHOSPHOKINASE 97 U/L (39-308); CREATININE FOR GFR 1.85 MG/DL (0.70-1.30); FREE T4 0.73 NG/DL (0.76-1.46); GLOMERULAR FILTRATION RATE 42.7 (>60); GLUCOSE, FASTING 104 MG/DL (70-100); MB/CK RELATIVE INDEX 1.03 (< OR =4); NT-PRO BNP 14 PG/ML (<125); POTASSIUM SERUM 3.1 MEQ/L (3.5-5.1); SODIUM LEVEL 135 MEQ/L (136-145); TROPONIN I < 0.02 NG/ML (< 0.10)
[2020-06-16] MEDS ORDERED: ISOVUE-370 76% 100ML VIAL As Ordered ONE (23:46)
[2020-06-16] MEDS ORDERED: NS 1,000 ML IV SCH (23:57)
[2020-06-17] MEDS ORDERED: POTASSIUM CHLORIDE 10 MEQ SR TABLET PO ONE ×2 (00:30→07:30)
[2020-06-17] MEDS ORDERED: TOPI50TA9 PO (00:57)
[2020-06-17] MEDS ORDERED: PRED5TA PO (00:57)
[2020-06-17] MEDS ORDERED: AMIT25TA PO (00:57)
[2020-06-17] MEDS ORDERED: METH25TA3 PO (00:57)
[2020-06-17] MEDS ORDERED: PRED1TABL PO (00:57)
[2020-06-17] MEDS ORDERED: QUET5TAB PO (00:57)
--- NOTE | 2020-06-17 06:51 | HPEPDOC ---
[facility] Medical History & Physical Date of Admission Jun 17, 2020 Date of Service: Jun 17, 2020 History and Physical CHIEF COMPLAINT: generalized body aches, weakness HISTORY OF PRESENT ILLNESS: 44 yo M with a hx of HTN, depression, nephrolithiasis, chronic hypoxic respiratory failure, presented c/o progressively worsening SOB with dry cough and generalized body aches along with dysuria. He denies any chest pain, wheezing, n/v/d. No increased urinary frequency or abdominal pain. PAST MEDICAL HISTORY: Chronic hypoxic respiratory failure Chronic steroid Dependence / PCP prophylaxis Weakness of bilateral upper / lower extremities - Not Chronic inflammatory demyelinating polyneuropathy PARISH (not compliant with CPAP) HTN Depression Nephrolithiasis Fatty Liver Disease RLS Migraine headache / Idiopathic Intracranial HTN GERD PAST SURGICAL HISTORY: Appendectomy Cholecystectomy Inguinal hernia repair SOCIAL HISTORY: social etoh use denies tobacco use denies illicit drug use FAMILY HISTORY: reviewed and not pertinent ALLERGIES: Please see below. REVIEW OF SYSTEMS: 10 point ROS performed, negative unless noted in HPI HOME MEDICATIONS: Please see below. PHYSICAL EXAMINATION: VITAL SIGNS: please see below General: NAD, comfortable HEENT: PERRLA, EOMI, sclerae clear Neck: supple, normal ROM, no JVD Respiratory: lungs CTAB, no wheeze, no rales, no crackles CVS: RRR, normal S1, S2, no murmurs Abdo: soft, no masses, no hepatosplenomegaly, BS+, no rebound tenderness Extremities: no edema, pulses 2+ MSK: no joint deformities, normal ROM Neuro: no focal neuro deficits, moving all 4 extremities, CN2-12 intact. Strength 5/5 in all 4 extremities. No nystagmus. Psych: calm, cooperative, AAO x 3 LABORATORY DATA: See below. IMAGING: CXR (06/16/20) 1. Minimal left base infiltrate or atelectasis since 05/15/2020. Minimal left pleural effusion is not excluded although the costophrenic angle is similar to the prior study. 2. Otherwise stable poor inspiratory chest. MICROBIOLOGY: Please see below. PLAN: #Fever of unknown origin - in context of prolonged steroid therapy - no WBC - associated with cough - CXR shows no opacities - COVID (-), negative RVP - follow up blood cultures, strep - UA clean - check procal #elevated D-dimer - check venous duplex - unable to perform CTA/PE given VELIA #Chronic hypoxic resp failure - 2/2 neuromuscular disorder? #VELIA - Cr 1.85 - gentle IVF #Chronic steroid dependence - using PO steroids > 1.5 years - sees pulmonology as outpatient - c/w prednisone #weakness of bilateral legs - c/w bilateral leg braces - c/w baclofen, cyclobenzaprine, pregabalin - extensive outpatient workup, including EMG at [facility]. #Hypokalemia - K 3.1 - replace #PARISH - non compliant with PCPA #HTN - BP currently well controlled - c/w metoprolol, HCTZ #depression, insomnia - resume home meds, duloxetine, sertraline, trazodone #RLS - c/w ropinirole, lyrica # hx of migraines - topiramate #Obesity - BMI 39.2, complicating care #GERD - ppi #DVT ppx: heparin SC Vital Signs Vital Signs Date Time Temp Pulse Resp B/P (MAP) Pulse Ox O2 Delivery O2 Flow Rate FiO2 06/17/20 05:38 98 95 06/17/20 05:31 107/58 (74) 06/17/20 01:33 98.2 16 Nasal Cannula 4.0 Laboratory Data Labs 24H Laboratory Tests 2 06/16/20 22:12: Blood Gas Bicarbonate Standard 27.1H, Arterial Blood pH 7.457H, Arterial Blood Partial Pressure CO2 38.9, Arterial Blood Partial Pressure O2 85.8, Arterial Blood Total CO2 28.1, Arterial Blood HCO3 26.9H, Arterial Blood Base Excess 2.9H, Arterial Blood Oxygen Saturation 96.9 06/16/20 22:55: Immature Granulocyte % (Auto) 0.5, Neutrophils (%) (Auto) 46.5, Lymphocytes (%) (Auto) 39.1, Monocytes (%) (Auto) 12.6H, Eosinophils (%) (Auto) 0.5, Basophils (%) (Auto) 0.8, Neutrophils # (Auto) 3.7, Lymphocytes # (Auto) 3.1, Monocytes # (Auto) 1.0H, Eosinophils # (Auto) 0.0, Basophils # (Auto) 0.1, Nucleated Red Blood Cells % (auto) 0.0, Prothrombin Time 13.3, Prothromb Time International Ratio 0.99, Activated Partial Thromboplast Time 32.1, D-Dimer, Quantitative 503.46H, Anion Gap 9, Glomerular Filtration Rate 42.7L, Calcium Level 9.3, Total Bilirubin 1.0, Direct Bilirubin 0.2, Aspartate Amino Transf (AST/SGOT) 87H, Alanine Aminotransferase (ALT/SGPT) 108H, Alkaline Phosphatase 118H, Total Creatine Kinase 97, Creatine Kinase MB < 1.0, Creatine Kinase MB Relative Index 1.03, Troponin I < 0.02, DE-[id number]-Type Natriuretic Peptide 14, Total Protein 8.0, Albumin 4.5, Albumin/Globulin Ratio 1.3, Thyroid Stimulating Hormone (TSH) 2.470, Free Thyroxine 0.73L 06/17/20 01:33: Urine Color YELLOW, Urine Appearance CLEAR, Urine pH 5.0, Urine Specific [place] 1.012, Urine Protein NEGATIVE, Urine Glucose (UA) NEGATIVE, Urine Ketones NEGATIVE, Urine Blood NEGATIVE, Urine Nitrite NEGATIVE, Urine Bilirubin NEGATIVE, Urine Urobilinogen 0.2, Urine Leukocyte Esterase NEGATIVE, Urine WBC (Auto) 0, Urine RBC (Auto) 0, Urine Hyaline Casts (Auto) 23, Urine Bacteria (Auto) NEGATIVE, Urine Squamous Epithelial Cells 0, Urine Mucus (Auto) SMALL, Urine Sperm (Auto) CBC/BMP Laboratory Tests 06/16/20 22:55 Microbiology Microbiology 06/16/20 Group A Streptococcus Screen ([facility]), Received Pending 06/16/20 Blood Culture, Received Pending 06/16/20 Blood Culture, Received Pending 06/16/20 Respiratory Virus Panel (PCR) ([facility]) - Final, Complete Home Medications Scheduled Amitriptyline HCl (Amitriptyline HCl) 25 Mg Tablet, 50 MG PO QHS Aspirin (Aspirin EC) 81 Mg Tablet.dr, 81 MG PO DAILY Baclofen (Baclofen) 10 Mg Tablet, 10 MG PO TID Calcitriol (Calcitriol) 0.25 Mcg Capsule, 0.25 MCG PO DAILY Calcium Carbonate (Tums) 200 Mg Tab.chew, 1,000 MG PO WM Cyclobenzaprine HCl (Cyclobenzaprine HCl) 5 Mg Tablet, 5 MG PO QHS Duloxetine HCl (Duloxetine HCl) 60 Mg Capsule.dr, 60 MG PO DAILY Ergocalciferol (Vitamin D2) (Vitamin D2) 50,000 Units Cap, 50,000 UNITS PO QWEEK MONDAYS Hydrochlorothiazide (Hydrochlorothiazide) 25 Mg Tablet, 25 MG PO DAILY Ketoconazole (Ketoconazole) 120 Ml Shampoo, 1 DOSE TOP Q2D Melatonin (Melatonin) 10 Mg Capsule, 10 MG PO QHS Methazolamide (Methazolamide) 25 Mg Tablet, 25 MG PO BID Methylphenidate HCl (Methylphenidate HCl) 5 Mg Tablet, 10 MG PO DAILY Metoprolol Succinate (Metoprolol Succinate) 100 Mg Tab.er.24h, 100 MG PO DAILY Pantoprazole Sodium (Pantoprazole Sodium) 40 Mg Tablet.dr, 40 MG PO QHS Potassium Chloride (Potassium Chloride) 10 Meq Tab.er.prt, 20 MEQ PO DAILY Prednisone (Prednisone) 1 Mg Tablet, 3 MG PO DAILY 18MG TOTAL Prednisone (Prednisone) 5 Mg Tablet, 15 MG PO DAILY 18MG TOTAL Pregabalin (Pregabalin) 300 Mg Capsule, 300 MG PO BID Quetiapine Fumarate (Quetiapine Fumarate) 50 Mg Tablet, 50 MG PO QHS Ropinirole HCl (Ropinirole HCl) 1 Mg Tablet, 1 MG PO TID Sertraline HCl (Sertraline HCl) 25 Mg Tablet, 75 MG PO DAILY Sulfamethoxazole/Trimethoprim (Bactrim Ds Tablet) 1 Each Tablet, 1 TAB PO 3XW MONDAY, MONDAY AND MONDAY Topiramate (Topiramate) 50 Mg Tablet, 50 MG PO DAILY Torsemide (Torsemide) 100 Mg Tablet, 50 MG PO DAILY Valsartan (Valsartan) 160 Mg Tablet, 160 MG PO DAILY Allergies Coded Allergies: TAPE (Verified Allergy, Intermediate, HIVES, 04/03/19) PLASTIC TAPE, PAPER TAPE [place] silver (Verified Allergy, Intermediate, HIVES, 04/03/19) acetazolamide (Verified Allergy, Unknown, " out of it", 05/15/20) RENEE WARE MD Jun 17, 2020 06:50
--- NOTE | 2020-06-17 07:33 | ECGEPIP ---
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
[2020-06-17 07:47] LABS: BASO # 0.1 10^3/uL (0.0-0.2); EOS % 0.3 % (0.0-3.0); HEMATOCRIT 41.5 % (42.0-52.0); HEMOGLOBIN 13.3 g/dl (13.5-17.5); LYMPH # 2.2 10^3/uL (1.5-5.0); LYMPH % 38.2 % (24.0-44.0); MEAN CORPUSCULAR HEMOGLOBIN 28.7 pg (27.0-33.0); MEAN CORPUSCULAR VOLUME 89.6 fl (80.0-96.0); MONO # 0.8 10^3/uL (0.0-0.8); MONO % 13.4 % (0.0-5.0); NEUTROPHILS # 2.7 10^3/uL (1.5-8.5); NEUTROPHILS % 46.8 % (36.0-66.0); PLATELET COUNT, AUTOMATED 241 10^3/uL (150-450); RED BLOOD COUNT 4.63 10^6/uL (4.30-6.10); WHITE BLOOD COUNT 5.8 10^3/uL (4.0-10.0)
[2020-06-17] MEDS: NS 1,000 ML IV SCH ×2 (08:06→15:15)
--- NOTE | 2020-06-17 08:07 | REP ---
INDICATION: elevated D dimer COMPARISON: None. TECHNIQUE: Fitzpatrick scale and color Doppler evaluation bilateral lower extremities using linear high frequency transducer. FINDINGS: Ultrasound examination of the right and left lower extremity deep venous structures from the common femoral vein to the popliteal vein demonstrates normal compressibility flow and wave patterns in response to respiration and augmentation. There is no evidence for deep venous thrombosis. Incidental duplicated right popliteal vein noted. IMPRESSION: No evidence for deep venous thrombosis. <Electronically signed by Alex Garsia > 06/17/20 0814
[2020-06-17 08:18] LABS: ALBUMIN 3.9 GM/DL (3.2-5.2); BILIRUBIN,TOTAL 0.8 MG/DL (0.2-1.0); CALCIUM LEVEL 8.3 MG/DL (8.5-10.1); CREATININE FOR GFR 1.63 MG/DL (0.70-1.30); GLOMERULAR FILTRATION RATE 49.4 (>60); MAGNESIUM LEVEL 2.2 MG/DL (1.8-2.4); POTASSIUM SERUM 3.1 MEQ/L (3.5-5.1); TOTAL PROTEIN 7.2 GM/DL (6.4-8.2)
[2020-06-17] MEDS: HEPARIN SOD (PORCINE) 5000UNITS/ML 1ML VIAL/SYRINGE SC SCH ×3 (08:34→20:19)
[2020-06-17] MEDS: ASPIRIN 81 MG ENTERIC TAB PO SCH (08:35)
[2020-06-17] MEDS: CALCIUM CARBONATE 500 MG CHEW U/D PO SCH ×3 (08:35→17:31)
[2020-06-17] MEDS: BACLOFEN 10 MG TAB PO SCH ×3 (08:36→20:18)
[2020-06-17] MEDS: METHYLPHENIDATE 5 MG TAB PO SCH (08:36)
[2020-06-17] MEDS: METOPROLOL SUCC (TopROL XL) 100MG *XL* TAB PO SCH (08:45)
[2020-06-17] MEDS: SERTRALINE HCL 25 MG TABLET PO SCH (08:46)
[2020-06-17] MEDS: TOPIRAMATE (TopAMAX) 25 MG TAB PO SCH (08:47)
[2020-06-17] MEDS ORDERED: predniSONE 1 MG TAB PO SCH (09:00)
[2020-06-17] MEDS ORDERED: predniSONE 5 MG TAB PO SCH (09:00)
[2020-06-17] MEDS ORDERED: VALSARTAN 80 MG TAB (DIOVAN) PO SCH (09:00)
[2020-06-17] MEDS ORDERED: hydroCHLOROthiazide 25 MG TAB PO SCH (09:00)
[2020-06-17] MEDS ORDERED: TORSEMIDE (DEMADEX) 50 MG PER 1/2 TAB PO SCH (09:00)
[2020-06-17] MEDS: rOPINIRole 1MG TAB PO SCH ×3 (10:08→20:18)
[2020-06-17] MEDS: CALCITRIOL 0.25 MCG CAP (S0169) PO SCH (10:09)
--- NOTE | 2020-06-17 12:23 | REP ---
INDICATION: PE. COMPARISON: Chest radiographs 06/16/2020. TECHNIQUE/RADIOTRACER AND DOSE: Following the intravenous administration of 5.5 mCi technetium 99 M tagged MAA and the inhalation of 1.0 mCi technetium 99 M DTPA aerosol, multiple images of the lung solis are obtained in various projections. FINDINGS: Small matching subsegmental ventilation and perfusion defects are seen in the bilateral lung bases. No areas of V/Q mismatch are seen. Prominent cardiac silhouette is noted. IMPRESSION: Low probability of pulmonary embolism. <Electronically signed by Wagner Fitzpatrick > 06/17/20 [id number]
--- NOTE | 2020-06-17 15:22 | IPNPDOC ---
Text Note Date of Service The patient was seen on 06/17/20. NOTE Subjective: Patient continues to complain of shortness of breath. Fever resolved Objective: GENERAL APPEARANCE: Obese male HEENT: no scleral icterus, no JVD, EOMI CARDIOVASCULAR: S1S2 LUNGS: Diminished lung sounds bilaterally ABDOMEN: soft & not tender w palpitation MUSCULOSKELETAL: no cyanosis, no swelling INTEGUMENT: no generalized palor NEUROLOGICAL: cranial nerve function from 2-12 intact intact, follows commands, speech not dysarthric Assessment and plan: 44 yo M with a hx of HTN, depression, nephrolithiasis, chronic hypoxic respiratory failure, presented c/o progressively worsening SOB with dry cough and generalized body along with dysuria. Community acquired pneumonia Patient who shortness of breath, x-ray shows chronic atelectasis with left base infiltrate Augmentin by mouth, doxycycline by mouth Incentive spirometry Inhalers Fever resolved Elevated d-dimer VQ scan negative for PE Chronic respiratory failure Most likely due to obesity and muscle weakness due to prolonged steroid therapy VELIA Most likely secondary to volume depletion due to aggressive diuresis Diuretics on hold Continue to monitor Chronic steroid dependence - using PO steroids > 1.5 years. Patient stated that he stopped taking steroids in January 2020, he hoped that it would help with his muscle weakness - sees pulmonology as outpatient I will discuss with stoneworking sander Dr. Galindo continuation of steroids #weakness of bilateral legs - c/w bilateral leg braces - c/w baclofen, cyclobenzaprine, pregabalin - extensive outpatient workup, including EMG at [facility]. Hypokalemia Replaced PARISH - non compliant with CPAP HTN Blood pressure under control #depression, insomnia - resume home meds, duloxetine, sertraline, trazodone RLS - c/w ropinirole, lyrica hx of migraines topiramate Obesity - BMI 39.2, complicating care GERD ppi VS,Fishbone, I+O VS, Fishbone, I+O Laboratory Tests 06/16/20 22:55 06/17/20 07:36 Vital Signs Date Time Temp Pulse Resp B/P (MAP) Pulse Ox O2 Delivery O2 Flow Rate FiO2 06/17/20 15:16 119/82 (94) 06/17/20 15:13 95 95 06/17/20 01:33 98.2 16 Nasal Cannula 4.0 DROZHZHIN,BRYAN DO Jun 17, 2020 15:22
[2020-06-17 16:35] VITALS: BP 128/85
[2020-06-17] MEDS: ONDANSETRON 4 MG TAB PO SCH (17:31)
[2020-06-17] MEDS: SYMBICORT 80/4.5MCG INHALER 6GM INH SCH (20:00)
[2020-06-17] MEDS: QUEtiapine FUMARATE 50 MG TAB PO SCH (20:18)
[2020-06-17] MEDS: DOXYCYCLINE HYCLATE 100MG TABLET PO SCH (20:18)
[2020-06-17] MEDS: AUGMENTIN 875 MG TAB PO SCH (20:18)
[2020-06-17] MEDS: AMITRIPTYLINE 50 MG TAB PO SCH (20:18)
[2020-06-17] MEDS: PANTOPRAZOLE 40MG TAB (PROTONIX) PO SCH (20:18)
--- NOTE | 2020-06-17 20:22 | REPVR ---
PROCEDURE INFORMATION: Exam: CT Abdomen And Pelvis Without Contrast Exam date and time: 06/17/2020 7:06 PM Age: 44 years old Clinical indication: Other: Pna TECHNIQUE: Imaging protocol: Computed tomography of the abdomen and pelvis without contrast. Radiation optimization: All CT scans at this facility use at least one of these dose optimization techniques: automated exposure control; mA and/or kV adjustment per patient size (includes targeted exams where dose is matched to clinical indication); or iterative reconstruction. COMPARISON: CT ABD PELVIS W/O CONTRAST 02/14/2020 12:44 PM FINDINGS: Lungs: Solid patchy parenchymal infiltrates in both lower lobes. Please refer to accompanying thoracic CT report. Liver: There is a diffuse decrease in hepatic parenchymal density, consistent with steatosis. Gallbladder and bile ducts: There has been a cholecystectomy. Pancreas: Normal. No ductal dilation. Spleen: Normal. No splenomegaly. Adrenal glands: Normal. No mass. Kidneys and ureters: Normal. No hydronephrosis. Stomach and bowel: Unremarkable. No obstruction. No mucosal thickening. Appendix: No evidence of appendicitis. Intraperitoneal space: Unremarkable. No free air. No significant fluid collection. Vasculature: Unremarkable. No abdominal aortic aneurysm. Lymph nodes: Unremarkable. No enlarged lymph nodes. Urinary bladder: Unremarkable as visualized. Reproductive: Unremarkable as visualized. Bones/joints: See "Lungs" finding. Soft tissues: Unremarkable. IMPRESSION: 1. There is a diffuse decrease in hepatic parenchymal density, consistent with steatosis. 2. There has been a cholecystectomy. 3. No acute intra-abdominal findings. Electronically signed by: Johnny Santa On 06/17/2020 20:22:37 PM
--- NOTE | 2020-06-17 20:35 | REPVR ---
PROCEDURE INFORMATION: Exam: CT Chest Without Contrast; Diagnostic Exam date and time: 06/17/2020 7:06 PM Age: 44 years old Clinical indication: Other: Pna TECHNIQUE: Imaging protocol: Diagnostic computed tomography of the chest without contrast. Radiation optimization: All CT scans at this facility use at least one of these dose optimization techniques: automated exposure control; mA and/or kV adjustment per patient size (includes targeted exams where dose is matched to clinical indication); or iterative reconstruction. COMPARISON: CT Chest without contrast 03/27/2020 9:32 PM FINDINGS: Lungs: Multiple bilateral pulmonary parenchymal opacities predominantly peripherally located but also demonstrated at both lung bases extending from the infrahilar regions to the posterior pleural margins, progressed in comparison to the prior study of 03/27/[address] a of 04/30/2020. Findings worrisome for multifocal organized pneumonitis. Pleural space: Unremarkable. No pneumothorax. No pleural effusion. Heart: Unremarkable. No cardiomegaly. No pericardial effusion. Aorta: Unremarkable. No aortic aneurysm. Lymph nodes: Unremarkable. No enlarged lymph nodes. Bones/joints: Unremarkable. No acute fracture. Soft tissues: Unremarkable. Other findings: Suboptimal inspiratory effort. IMPRESSION: Progressive multiple bilateral solid-appearing pulmonary parenchymal infiltrates consistent with multifocal organizing pneumonitis, likely viral. Electronically signed by: Johnny Santa On 06/17/2020 20:36:06 PM
[2020-06-17] MEDS: RAMELTEON 8 MG TAB (ROZEREM) PO PRN (21:49)
[2020-06-17] MEDS: CYCLOBENZAPRINE 5MG TABLET PO SCH (21:49)
[2020-06-17 22:00] VITALS: BP 108/71
[2020-06-17 22:46] LABS: CLOSTRIDIUM DIFFICILE PCR NEGATIVE (NEGATIVE)
[2020-06-18] MEDS: ONDANSETRON 4 MG TAB PO SCH ×4 (05:19→16:54)
[2020-06-18] MEDS: HEPARIN SOD (PORCINE) 5000UNITS/ML 1ML VIAL/SYRINGE SC SCH ×3 (05:19→21:28)
[2020-06-18 06:00] VITALS: BP 104/60
[2020-06-18 06:26] LABS: BASO % 0.4 % (0.0-1.0); EOS % 0.2 % (0.0-3.0); HEMATOCRIT 40.8 % (42.0-52.0); HEMOGLOBIN 12.5 g/dl (13.5-17.5); LYMPH # 2.1 10^3/uL (1.5-5.0); LYMPH % 40.3 % (24.0-44.0); MEAN CORPUSCULAR HEMOGLOBIN 27.7 pg (27.0-33.0); MEAN CORPUSCULAR HGB CONC 30.6 g/dl (32.0-36.5); MEAN CORPUSCULAR VOLUME 90.5 fl (80.0-96.0); MONO # 0.6 10^3/uL (0.0-0.8); MONO % 10.4 % (0.0-5.0); NEUTROPHILS # 2.6 10^3/uL (1.5-8.5); NEUTROPHILS % 48.3 % (36.0-66.0); PLATELET COUNT, AUTOMATED 223 10^3/uL (150-450); RED BLOOD COUNT 4.51 10^6/uL (4.30-6.10); WHITE BLOOD COUNT 5.3 10^3/uL (4.0-10.0)
[2020-06-18 06:59] LABS: BLOOD UREA NITROGEN 17 MG/DL (7-18); CALCIUM LEVEL 8.6 MG/DL (8.5-10.1); CARBON DIOXIDE LEVEL 28 MEQ/L (21-32); CHLORIDE LEVEL 102 MEQ/L (98-107); CREATININE FOR GFR 1.21 MG/DL (0.70-1.30); GLOMERULAR FILTRATION RATE > 60.0 (>60); GLUCOSE, FASTING 101 MG/DL (70-100); MAGNESIUM LEVEL 2.2 MG/DL (1.8-2.4); POTASSIUM SERUM 3.1 MEQ/L (3.5-5.1); SODIUM LEVEL 135 MEQ/L (136-145)
[2020-06-18] MEDS: CALCIUM CARBONATE 500 MG CHEW U/D PO SCH ×3 (09:04→16:54)
[2020-06-18] MEDS: ASPIRIN 81 MG ENTERIC TAB PO SCH (09:05)
[2020-06-18] MEDS: POTASSIUM CHLORIDE 10 MEQ SR TABLET PO SCH (09:05)
[2020-06-18] MEDS: rOPINIRole 1MG TAB PO SCH ×3 (09:05→21:27)
[2020-06-18] MEDS: METHYLPHENIDATE 5 MG TAB PO SCH (09:05)
[2020-06-18] MEDS: DOXYCYCLINE HYCLATE 100MG TABLET PO SCH ×2 (09:05→21:28)
[2020-06-18] MEDS: AUGMENTIN 875 MG TAB PO SCH ×2 (09:05→21:27)
[2020-06-18] MEDS: SERTRALINE HCL 25 MG TABLET PO SCH (09:05)
[2020-06-18] MEDS: BACLOFEN 10 MG TAB PO SCH ×3 (09:06→21:27)
[2020-06-18] MEDS: TOPIRAMATE (TopAMAX) 25 MG TAB PO SCH (09:06)
[2020-06-18] MEDS: METOPROLOL SUCC (TopROL XL) 100MG *XL* TAB PO SCH (09:06)
[2020-06-18] MEDS: CALCITRIOL 0.25 MCG CAP (S0169) PO SCH (09:06)
[2020-06-18] MEDS: SYMBICORT 80/4.5MCG INHALER 6GM INH SCH ×3 (11:48→17:58)
--- NOTE | 2020-06-18 12:27 | IPNPDOC ---
Text Note Date of Service The patient was seen on 06/18/20. NOTE Subjective: Patient states that he feels better. Yesterday overnight patient has 2 episodes of diarrhea. C. difficile negative Objective: GENERAL APPEARANCE: Obese male HEENT: no scleral icterus, no JVD, EOMI CARDIOVASCULAR: S1S2 LUNGS: Diminished lung sounds bilaterally ABDOMEN: soft & not tender w palpitation MUSCULOSKELETAL: no cyanosis, no swelling INTEGUMENT: no generalized pallor NEUROLOGICAL: cranial nerve function from 2-12 intact intact, follows commands, speech not dysarthric Assessment and plan: 44 yo M with a hx of HTN, depression, nephrolithiasis, chronic hypoxic respiratory failure, presented c/o progressively worsening SOB with dry cough and generalized body along with dysuria. Community acquired pneumonia Patient who shortness of breath, x-ray shows chronic atelectasis with left base infiltrate Augmentin by mouth, doxycycline by mouth Incentive spirometry Inhalers Fever resolved CT chest was done and showed Progressive multiple bilateral solid-appearing pulmonary parenchymal infiltrates consistent with multifocal organizing pneumonitis, likely viral. CT abdomen unremarkable Elevated d-dimer VQ scan negative for PE Chronic respiratory failure Most likely due to obesity and muscle weakness due to prolonged steroid therapy VELIA Resolved Most likely secondary to volume depletion due to aggressive diuresis Diuretics on hold Continue to monitor Chronic steroid dependence - using PO steroids > 1.5 years. Patient stated that he stopped taking steroids in January 2020, he hoped that it would help with his muscle weakness - sees pulmonology as outpatient I will discuss with brake lining finisher Dr. Galindo continuation of steroids #weakness of bilateral legs - c/w bilateral leg braces - c/w baclofen, cyclobenzaprine, pregabalin - extensive outpatient workup, including EMG at [facility] was negative Hypokalemia Replaced PARISH - non compliant with CPAP HTN Blood pressure under control #depression, insomnia - resume home meds, duloxetine, sertraline, trazodone RLS - c/w ropinirole, lyrica hx of migraines topiramate Obesity - BMI 39.2, complicating care GERD ppi VS,Fishbone, I+O VS, Fishbone, I+O Laboratory Tests 06/18/20 06:00 Vital Signs Date Time Temp Pulse Resp B/P (MAP) Pulse Ox O2 Delivery O2 Flow Rate FiO2 06/18/20 09:20 4.0 06/18/20 09:06 95 115/73 06/18/20 06:00 97.4 16 93 Nasal Cannula I&O- Last 24 Hours up to 6 AM 06/18/20 06:00 Intake Total 2440 ml Output Total 200 ml Balance 2240 ml BRYAN GARNER DO Jun 18, 2020 12:27
[2020-06-18 13:26] VITALS: BP 110/71
[2020-06-18] MEDS: ACETAMINOPHEN TAB 650MG DOSE (2X325MG) PO PRN ×2 (14:33→21:30)
[2020-06-18] MEDS: PANTOPRAZOLE 40MG TAB (PROTONIX) PO SCH (21:27)
[2020-06-18] MEDS: AMITRIPTYLINE 50 MG TAB PO SCH (21:27)
[2020-06-18] MEDS: RAMELTEON 8 MG TAB (ROZEREM) PO PRN (21:28)
[2020-06-18] MEDS: QUEtiapine FUMARATE 50 MG TAB PO SCH (21:28)
[2020-06-18 22:00] VITALS: BP 111/70
[2020-06-19] MEDS: ONDANSETRON 4 MG TAB PO SCH ×6 (00:01→23:08)
[2020-06-19] MEDS: PREGABALIN 100 MG CAP (LYRICA) PO SCH ×3 (00:01→21:54)
[2020-06-19] MEDS: CYCLOBENZAPRINE 5MG TABLET PO SCH ×2 (00:01→21:57)
[2020-06-19 05:45] VITALS: BP 104/68
[2020-06-19] MEDS: HEPARIN SOD (PORCINE) 5000UNITS/ML 1ML VIAL/SYRINGE SC SCH ×3 (05:55→21:54)
[2020-06-19] MEDS: ACETAMINOPHEN TAB 650MG DOSE (2X325MG) PO PRN ×2 (05:56→13:16)
[2020-06-19 06:00] VITALS: BP 104/68
[2020-06-19 06:57] LABS: BASO % 0.3 % (0.0-1.0); EOS % 0.7 % (0.0-3.0); HEMATOCRIT 38.7 % (42.0-52.0); HEMOGLOBIN 12.3 g/dl (13.5-17.5); LYMPH # 1.5 10^3/uL (1.5-5.0); MEAN CORPUSCULAR HEMOGLOBIN 28.1 pg (27.0-33.0); MEAN CORPUSCULAR HGB CONC 31.8 g/dl (32.0-36.5); MEAN CORPUSCULAR VOLUME 88.4 fl (80.0-96.0); MONO # 0.4 10^3/uL (0.0-0.8); MONO % 6.3 % (0.0-5.0); NEUTROPHILS # 3.8 10^3/uL (1.5-8.5); NEUTROPHILS % 66.4 % (36.0-66.0); PLATELET COUNT, AUTOMATED 210 10^3/uL (150-450); RED BLOOD COUNT 4.38 10^6/uL (4.30-6.10); WHITE BLOOD COUNT 5.7 10^3/uL (4.0-10.0)
[2020-06-19 07:20] LABS: BLOOD UREA NITROGEN 13 MG/DL (7-18); CALCIUM LEVEL 8.1 MG/DL (8.5-10.1); CARBON DIOXIDE LEVEL 25 MEQ/L (21-32); CHLORIDE LEVEL 104 MEQ/L (98-107); CREATININE FOR GFR 1.26 MG/DL (0.70-1.30); GLOMERULAR FILTRATION RATE > 60.0 (>60); GLUCOSE, FASTING 118 MG/DL (70-100); MAGNESIUM LEVEL 1.9 MG/DL (1.8-2.4); POTASSIUM SERUM 3.3 MEQ/L (3.5-5.1); SODIUM LEVEL 137 MEQ/L (136-145)
[2020-06-19] MEDS: SYMBICORT 80/4.5MCG INHALER 6GM INH SCH (07:26)
[2020-06-19] MEDS: DOXYCYCLINE HYCLATE 100MG TABLET PO SCH ×2 (08:48→21:56)
[2020-06-19] MEDS: rOPINIRole 1MG TAB PO SCH ×3 (08:48→21:56)
[2020-06-19] MEDS: SERTRALINE HCL 25 MG TABLET PO SCH (08:48)
[2020-06-19] MEDS: METHYLPHENIDATE 5 MG TAB PO SCH (08:48)
[2020-06-19] MEDS: ASPIRIN 81 MG ENTERIC TAB PO SCH (08:48)
[2020-06-19] MEDS: TOPIRAMATE (TopAMAX) 25 MG TAB PO SCH (08:49)
[2020-06-19] MEDS: POTASSIUM CHLORIDE 10 MEQ SR TABLET PO SCH (08:49)
[2020-06-19] MEDS: CALCITRIOL 0.25 MCG CAP (S0169) PO SCH (08:50)
[2020-06-19] MEDS: AUGMENTIN 875 MG TAB PO SCH ×2 (08:50→21:56)
[2020-06-19] MEDS: METOPROLOL SUCC (TopROL XL) 100MG *XL* TAB PO SCH (08:50)
[2020-06-19] MEDS: BACLOFEN 10 MG TAB PO SCH ×3 (08:50→21:58)
[2020-06-19] MEDS: CALCIUM CARBONATE 500 MG CHEW U/D PO SCH ×3 (08:50→17:05)
[2020-06-19 13:29] VITALS: BP 113/72
--- NOTE | 2020-06-19 19:09 | IPNPDOC ---
Text Note Date of Service The patient was seen on 06/19/20. NOTE Subjective: Patient developed up to 4 bowel movements overnight. He was febrile in the morning with temperature 101.3 Objective: GENERAL APPEARANCE: Obese male HEENT: no scleral icterus, no JVD, EOMI CARDIOVASCULAR: S1S2 LUNGS: Diminished lung sounds bilaterally ABDOMEN: soft & not tender w palpitation MUSCULOSKELETAL: no cyanosis, no swelling INTEGUMENT: no generalized pallor NEUROLOGICAL: cranial nerve function from 2-12 intact intact, follows commands, speech not dysarthric Assessment and plan: 44 yo M with a hx of HTN, depression, nephrolithiasis, chronic hypoxic re spiratory failure, presented c/o progressively worsening SOB with dry cough and generalized body along with dysuria. Community acquired pneumonia Patient who shortness of breath, x-ray shows chronic atelectasis with left base infiltrate Augmentin by mouth, doxycycline by mouth Incentive spirometry Inhalers Fever resolved CT chest was done and showed Progressive multiple bilateral solid-appearing pulmonary parenchymal infiltrates consistent with multifocal organizing pneumonitis, likely viral. CT abdomen unremarkable Elevated d-dimer VQ scan negative for PE Chronic respiratory failure Most likely due to obesity and muscle weakness due to prolonged steroid therapy VELIA Resolved Most likely secondary to volume depletion due to aggressive diuresis Diuretics on hold Continue to monitor Chronic steroid dependence - using PO steroids > 1.5 years. Patient stated that he stopped taking steroids in January 2020, he hoped that it would help with his muscle weakness - sees pulmonology as outpatient I will discuss with retirement village manager Dr. Galindo continuation of steroids #weakness of bilateral legs - c/w bilateral leg braces - c/w baclofen, cyclobenzaprine, pregabalin - extensive outpatient workup, including EMG at [facility] was negative Diarrhea C. difficile negative Will check GI panel. There is concern for GI infection given fever and diarrhea Hypokalemia Replaced PARISH - non compliant with CPAP HTN Blood pressure under control #depression, insomnia - resume home meds, duloxetine, sertraline, trazodone RLS - c/w ropinirole, lyrica hx of migraines topiramate Obesity - BMI 39.2, complicating care GERD ppi VS,Fishbone, I+O VS, Fishbone, I+O Laboratory Tests 06/19/20 06:35 Vital Signs Date Time Temp Pulse Resp B/P (MAP) Pulse Ox O2 Delivery O2 Flow Rate FiO2 1/8/21 13:29 99.3 104 20 113/72 (86) 96 Nasal Cannula 4.0 I&O- Last 24 Hours up to 6 AM 06/19/20 05:59 Intake Total 1400 ml Output Total 200 ml Balance 1200 ml BRYAN GARNER DO Jun 19, 2020 19:09
[2020-06-19] MEDS: PANTOPRAZOLE 40MG TAB (PROTONIX) PO SCH (21:54)
[2020-06-19] MEDS: QUEtiapine FUMARATE 50 MG TAB PO SCH (21:57)
[2020-06-19] MEDS: AMITRIPTYLINE 50 MG TAB PO SCH (21:58)
[2020-06-19 22:00] VITALS: BP 117/71
[2020-06-20] MEDS: ONDANSETRON 4 MG TAB PO SCH ×2 (05:24→12:58)
[2020-06-20] MEDS: HEPARIN SOD (PORCINE) 5000UNITS/ML 1ML VIAL/SYRINGE SC SCH ×2 (05:25→12:58)
[2020-06-20 06:00] VITALS: BP 129/70
[2020-06-20 07:05] LABS: BASO % 0.2 % (0.0-1.0); EOS % 0.5 % (0.0-3.0); HEMATOCRIT 37.1 % (42.0-52.0); HEMOGLOBIN 11.7 g/dl (13.5-17.5); LYMPH # 1.9 10^3/uL (1.5-5.0); LYMPH % 45.7 % (24.0-44.0); MEAN CORPUSCULAR HEMOGLOBIN 28.1 pg (27.0-33.0); MEAN CORPUSCULAR HGB CONC 31.5 g/dl (32.0-36.5); MONO # 0.2 10^3/uL (0.0-0.8); MONO % 5.2 % (0.0-5.0); NEUTROPHILS % 48.2 % (36.0-66.0); PLATELET COUNT, AUTOMATED 199 10^3/uL (150-450); RED BLOOD COUNT 4.17 10^6/uL (4.30-6.10); WHITE BLOOD COUNT 4.1 10^3/uL (4.0-10.0)
[2020-06-20 07:23] LABS: BLOOD UREA NITROGEN 12 MG/DL (7-18); CALCIUM LEVEL 7.9 MG/DL (8.5-10.1); CARBON DIOXIDE LEVEL 27 MEQ/L (21-32); CHLORIDE LEVEL 105 MEQ/L (98-107); CREATININE FOR GFR 1.25 MG/DL (0.70-1.30); GLOMERULAR FILTRATION RATE > 60.0 (>60); GLUCOSE, FASTING 91 MG/DL (70-100); POTASSIUM SERUM 3.3 MEQ/L (3.5-5.1); SODIUM LEVEL 139 MEQ/L (136-145)
[2020-06-20] MEDS ORDERED: POTASSIUM CHLORIDE 10 MEQ SR TABLET PO SCH (09:00)
[2020-06-20] MEDS: DOXYCYCLINE HYCLATE 100MG TABLET PO SCH (09:48)
[2020-06-20] MEDS: rOPINIRole 1MG TAB PO SCH ×2 (09:48→16:30)
[2020-06-20] MEDS: METHYLPHENIDATE 5 MG TAB PO SCH (09:49)
[2020-06-20] MEDS: CALCIUM CARBONATE 500 MG CHEW U/D PO SCH ×2 (09:49→12:58)
[2020-06-20] MEDS: SERTRALINE HCL 25 MG TABLET PO SCH (09:50)
[2020-06-20] MEDS: TOPIRAMATE (TopAMAX) 25 MG TAB PO SCH (09:50)
[2020-06-20] MEDS: CALCITRIOL 0.25 MCG CAP (S0169) PO SCH (09:50)
[2020-06-20] MEDS: BACLOFEN 10 MG TAB PO SCH ×2 (09:50→16:30)
[2020-06-20] MEDS: ASPIRIN 81 MG ENTERIC TAB PO SCH (09:50)
[2020-06-20] MEDS: AUGMENTIN 875 MG TAB PO SCH (09:50)
[2020-06-20] MEDS: PREGABALIN 100 MG CAP (LYRICA) PO SCH (09:50)
[2020-06-20 09:51] VITALS: BP 105/67
[2020-06-20] MEDS: METOPROLOL SUCC (TopROL XL) 100MG *XL* TAB PO SCH (09:51)
[2020-06-20] MEDS ORDERED: AMOX875T2 PO (13:31)
[2020-06-20] MEDS ORDERED: DOXY100T PO (13:31)
[2020-06-20] MEDS ORDERED: TORS20TA2 PO (13:31)
[2020-06-20 14:00] VITALS: BP 111/68
--- NOTE | 2020-06-20 20:22 | DS.PDOC ---
Discharge Summary General Date of Admission Jun 17, 2020 at 06:55 Date of Discharge 06/20/20 Discharge Summary PROCEDURES PERFORMED DURING STAY: [None]. ADMITTING DIAGNOSES: Community acquired pneumonia Elevated d-dimer Chronic respiratory failure VELIA weakness of bilateral legs Chronic steroid dependence weakness of bilateral legs DISCHARGE DIAGNOSES: Community acquired pneumonia Elevated d-dimer Chronic respiratory failure VELIA weakness of bilateral legs Chronic steroid dependence weakness of bilateral legs Diarrhea COMPLICATIONS/CHIEF COMPLAINT: Velia, Fever, Elevated D-Dimer, Sob. HISTORY OF PRESENT ILLNESS: 44 yo M with a hx of HTN, depression, nephrolithiasis, chronic hypoxic respiratory failure, presented c/o progressively worsening SOB with dry cough and generalized body along with dysuria. HOSPITAL COURSE: During hospital stay following issue addressed Community acquired pneumonia Patient developed shortness of breath, x-ray shows chronic atelectasis with left base infiltrate Patient received Augmentin by mouth, doxycycline by mouth Incentive spirometry Inhalers Fever resolved CT chest was done and showed Progressive multiple bilateral solid-appearing pulmonary parenchymal infiltrates consistent with multifocal organizing pneumonitis, likely viral. CT abdomen unremarkable Elevated d-dimer VQ scan negative for PE Chronic respiratory failure Most likely due to obesity and muscle weakness due to prolonged steroid therapy VELIA Resolved Most likely secondary to volume depletion due to aggressive diuresis Diuretics on hold Continue to monitor Urine analysis unremarkable Chronic steroid dependence - using PO steroids > 1.5 years. Patient stated that he stopped taking steroids in January 2020, he hoped that it would help with his muscle weakness - sees pulmonology as outpatient #weakness of bilateral legs - c/w bilateral leg braces - c/w baclofen, cyclobenzaprine, pregabalin - extensive outpatient workup, including EMG at [facility] was negative C. difficile negative Hypokalemia Replaced PARISH - non compliant with CPAP HTN Blood pressure under control #depression, insomnia - resume home meds, duloxetine, sertraline, trazodone RLS - c/w ropinirole, lyrica hx of migraines topiramate Obesity - BMI 39.2, complicating care GERD ppi DISCHARGE MEDICATIONS: Please see below. ALLERGIES: Please see below. PHYSICAL EXAMINATION ON DISCHARGE: VITAL SIGNS: Please see below. GENERAL APPEARANCE: Obese male HEENT: no scleral icterus, no JVD, EOMI CARDIOVASCULAR: S1S2 LUNGS: Diminished lung sounds bilaterally ABDOMEN: soft & not tender w palpitation MUSCULOSKELETAL: no cyanosis, no swelling INTEGUMENT: no generalized pallor NEUROLOGICAL: cranial nerve function from 2-12 intact intact, follows commands, speech not dysarthric LABORATORY DATA: Please see below. IMAGING: [facility] NAME: ROLLY YANCEY DATE OF : 1975 BUSINESS NUMBER: [id number] AGE: 44 SEX: M REPORT #: [id number] ROOM: [facility] TECHNOLOGIST: YOHAN DOCTOR: BRYAN GARNER DO Ordered for Date&Time: 06/17/20 1722 cc: [~ rep ct ivnm] Service Date&Time: 06/17/20 1906 This report is in Signed status. Interpretation performed by [facility]. Thank you for having your radiology procedures performed at [facility] RADIOLOGY REPORT Date&Time printed: [~ rep prt dt last] [~ rep prt tm last] Page 2 of [address] [address] RADIOLOGY REPORT This report is in Signed status. Interpretation performed by [facility]. Thank you for having your radiology procedures performed at [facility] RADIOLOGY REPORT Date&Time printed: [~ rep prt dt last] [~ rep prt tm last] Page 1 of 1 Exam: CT Chest Without Contrast; Diagnostic Exam date and time: 06/17/2020 7:06 PM Age: 44 years old Clinical indication: Other: Pna TECHNIQUE: Imaging protocol: Diagnostic computed tomography of the chest without contrast. Radiation optimization: All CT scans at this facility use at least one of these dose optimization techniques: automated exposure control; mA and/or kV adjustment per patient size (includes targeted exams where dose is matched to clinical indication); or iterative reconstruction. COMPARISON: CT Chest without contrast 03/27/2020 9:32 PM FINDINGS: Lungs: Multiple bilateral pulmonary parenchymal opacities predominantly peripherally located but also demonstrated at both lung bases extending from the infrahilar regions to the posterior pleural margins, progressed in comparison to the prior study of 03/27/[address] a of 04/30/2020. Findings worrisome for multifocal organized pneumonitis. Pleural space: Unremarkable. No pneumothorax. No pleural effusion. Heart: Unremarkable. No cardiomegaly. No pericardial effusion. Aorta: Unremarkable. No aortic aneurysm. Lymph nodes: Unremarkable. No enlarged lymph nodes. Bones/joints: Unremarkable. No acute fracture. Soft tissues: Unremarkable. Other findings: Suboptimal inspiratory effort. IMPRESSION: Progressive multiple bilateral solid-appearing pulmonary parenchymal infiltrates consistent with multifocal organizing pneumonitis, likely viral. Electronically signed by: Johnny Espinosa On 06/17/2020 20:36:06 PM DD: JOHNNY ESPINOSA MD 06/17/201905 DT: IESHA 06/17/202035 DS: TABITHA 06/17/202035 [~ rep ct labl] PROGNOSIS: Fair ACTIVITY: [As tolerated]. DIET: Cardiac DISPOSITION: Home, Self-Care. ITEMS TO FOLLOWUP ON ON OUTPATIENT: Follow-up with advertising assistant DISCHARGE CONDITION: [Stable]. TIME SPENT ON DISCHARGE: Greater than 40 minutes. Vital Signs/I&Os Vital Signs Date Time Temp Pulse Resp B/P (MAP) Pulse Ox O2 Delivery O2 Flow Rate FiO2 06/20/20 14:00 98.3 103 16 111/68 (82) 94 Nasal Cannula 4.0 I&O- Last 24 Hours up to 6 AM 06/20/20 06:00 Intake Total 1400 ml Output Total 1525 ml Balance -125 ml Laboratory Data Labs 24H Laboratory Tests 2 06/20/20 06:43: Immature Granulocyte % (Auto) 0.2, Neutrophils (%) (Auto) 48.2, Lymphocytes (%) (Auto) 45.7H, Monocytes (%) (Auto) 5.2H, Eosinophils (%) (Auto) 0.5, Basophils (%) (Auto) 0.2, Neutrophils # (Auto) 2.0, Lymphocytes # (Auto) 1.9, Monocytes # (Auto) 0.2, Eosinophils # (Auto) 0.0, Basophils # (Auto) 0.0, Nucleated Red Blood Cells % (auto) 0.0, Anion Gap 7L, Glomerular Filtration Rate > 60.0, Calcium Level 7.9L, Magnesium Level 2.0 CBC/BMP Laboratory Tests 06/20/20 06:43 Microbiology Microbiology 06/19/20 Blood Culture - Preliminary, Resulted No growth after 24 hours . All specim... 06/19/20 Blood Culture - Preliminary, Resulted No growth after 24 hours . All specim... 06/18/20 Stool Occult Blood (PHYLLIS) - Final, Complete 06/16/20 Group A Streptococcus Screen (PHYLLIS) - Final, Complete 06/16/20 Blood Culture - Preliminary, Resulted No Growth after 72 hours. All specime... 06/16/20 Blood Culture - Preliminary, Resulted No Growth after 72 hours. All specime... 06/16/20 Respiratory Virus Panel (PCR) (PHYLLIS) - Final, Complete Discharge Medications Scheduled Amitriptyline HCl (Amitriptyline HCl) 25 Mg Tablet, 50 MG PO QHS, (Reported) Amoxicillin/Potassium Clav (Amox-Clav 875-125 mg Tablet) 1 Each Tablet, 875 MG PO BID Aspirin (Aspirin EC) 81 Mg Tablet.dr, 81 MG PO DAILY, (Reported) Baclofen (Baclofen) 10 Mg Tablet, 10 MG PO TID, (Reported) Calcitriol (Calcitriol) 0.25 Mcg Capsule, 0.25 MCG PO DAILY, (Reported) Calcium Carbonate (Tums) 200 Mg Tab.chew, 1,000 MG PO WM, (Reported) Cyclobenzaprine HCl (Cyclobenzaprine HCl) 5 Mg Tablet, 5 MG PO QHS, (Reported) Doxycycline Hyclate (Doxycycline Hyclate) 100 Mg Tablet, 100 MG PO BID Duloxetine HCl (Duloxetine HCl) 60 Mg Capsule.dr, 60 MG PO DAILY, (Reported) Ergocalciferol (Vitamin D2) (Vitamin D2) 50,000 Units Cap, 50,000 UNITS PO QWEEK, (Reported) MONDAYS Hydrochlorothiazide (Hydrochlorothiazide) 25 Mg Tablet, 25 MG PO DAILY, (Reported) Ketoconazole (Ketoconazole) 120 Ml Shampoo, 1 DOSE TOP Q2D, (Reported) Melatonin (Melatonin) 10 Mg Capsule, 10 MG PO QHS, (Reported) Methazolamide (Methazolamide) 25 Mg Tablet, 25 MG PO BID, (Reported) Methylphenidate HCl (Methylphenidate HCl) 5 Mg Tablet, 10 MG PO DAILY, (Reported) Metoprolol Succinate (Metoprolol Succinate) 100 Mg Tab.er.24h, 100 MG PO DAILY, (Reported) Pantoprazole Sodium (Pantoprazole Sodium) 40 Mg Tablet.dr, 40 MG PO QHS, (Reported) Potassium Chloride (Potassium Chloride) 10 Meq Tab.er.prt, 20 MEQ PO DAILY, (Reported) Prednisone (Prednisone) 1 Mg Tablet, 3 MG PO DAILY, (Reported) 18MG TOTAL Prednisone (Prednisone) 5 Mg Tablet, 15 MG PO DAILY, (Reported) 18MG TOTAL Pregabalin (Pregabalin) 300 Mg Capsule, 300 MG PO BID, (Reported) Quetiapine Fumarate (Quetiapine Fumarate) 50 Mg Tablet, 50 MG PO QHS, (Reported) Ropinirole HCl (Ropinirole HCl) 1 Mg Tablet, 1 MG PO TID, (Reported) Sertraline HCl (Sertraline HCl) 25 Mg Tablet, 75 MG PO DAILY, (Reported) Sulfamethoxazole/Trimethoprim (Bactrim Ds Tablet) 1 Each Tablet, 1 TAB PO 3XW, (Reported) MONDAY, MONDAY AND MONDAY Topiramate (Topiramate) 50 Mg Tablet, 50 MG PO DAILY, (Reported) Torsemide (Torsemide) 20 Mg Tablet, 1 TAB PO DAILY Valsartan (Valsartan) 160 Mg Tablet, 160 MG PO DAILY, (Reported) Allergies Coded Allergies: TAPE (Verified Allergy, Intermediate, HIVES, 04/03/19) PLASTIC TAPE, PAPER TAPE [place] silver (Verified Allergy, Intermediate, HIVES, 04/03/19) acetazolamide (Verified Allergy, Unknown, " out of it", 05/15/20) BRYAN GARNER DO Jun 20, 2020 20:22
== END 2020-06-20 17:38 | disposition home health service (06) | DRG 139 ==
LOC: M ED 18:29 → M ED INP 06-17 06:55 → M MSPAV 06-17 16:33
PROVIDERS: ADMIT Family Medicine; ATTEND Internal Medicine
DX: J18.9 Pneumonia, unspecified organism (principal); J96.11 Chronic respiratory failure with hypoxia; N17.9 Acute kidney failure, unspecified; G61.81 Chronic inflammatory demyelinating polyneuritis; K76.0 Fatty (change of) liver, not elsewhere classified; G47.33 Obstructive sleep apnea (adult) (pediatric); I10 Essential (primary) hypertension; F32.9 Major depressive disorder, single episode, unspecified; G25.81 Restless legs syndrome; G43.909 Migraine, unspecified, not intractable, without status migrainosus; K21.9 Gastro-esophageal reflux disease without esophagitis; G93.2 Benign intracranial hypertension; Z90.49 Acquired absence of other specified parts of digestive tract; Z79.52 Long term (current) use of systemic steroids; E87.6 Hypokalemia; G47.00 Insomnia, unspecified; E66.9 Obesity, unspecified; Z68.39 Body mass index [BMI] 39.0-39.9, adult; Z79.82 Long term (current) use of aspirin; Z79.899 Other long term (current) drug therapy; Z88.8 Allergy status to other drugs, medicaments and biological substances; Z91.048 Other nonmedicinal substance allergy status; M62.81 Muscle weakness (generalized); R19.7 Diarrhea, unspecified; Z20.822 Contact with and (suspected) exposure to COVID-19

== ENCOUNTER 2020-06-25 13:40 | Emergency (ER) | payer OTHER ==
[~2020-06-25] VITALS: Ht 172.7 cm; Wt 118.2 kg
[~2020-06-25 13:40] MED LIST changes: -AMIT25TA PO; +AMIT25TA17 PO; +AMOX875T2 PO; +DOXY100T PO; -ESCI20TA PO; +ESCI20TA16 PO; +GABA-282 PO; -GABA-843 PO; +HYDR-3490 PO; -HYDR25TAB PO; +METH25TA3 PO; +METH5TAB76 PO; +PRED1TABL PO; +PRED5TA PO; +QUET50TA3 PO; +TOPI50TA9 PO; +TORS100T PO; +TORS20TA2 PO
--- NOTE | 2020-06-25 14:24 | REPVR ---
PROCEDURE INFORMATION: Exam: CT Head Without Contrast Exam date and time: 06/25/2020 2:04 PM Age: 44 years old Clinical indication: Visual disturbance; Additional info: Sudden vision changes TECHNIQUE: Imaging protocol: Computed tomography of the head without contrast. Radiation optimization: All CT scans at this facility use at least one of these dose optimization techniques: automated exposure control; mA and/or kV adjustment per patient size (includes targeted exams where dose is matched to clinical indication); or iterative reconstruction. COMPARISON: No relevant prior studies available. FINDINGS: Brain: No acute intracranial hemorrhage, cerebral edema, or midline shift. Cerebral ventricles: No hydrocephalus. Bones/joints: No acute fracture. Paranasal sinuses: There is no acute sinusitis. Mastoid air cells: Visualized mastoid air cells are well aerated. Orbital cavity: Unremarkable as visualized. Soft tissues: Unremarkable. IMPRESSION: No acute intracranial abnormality. Electronically signed by: Issa Echeverria On 06/25/2020 14:24:06 PM
[2020-06-25 17:05] VITALS: BP 122/72
[2020-06-26] MEDS ORDERED: TORS20TA2 PO (04:57)
== END 2020-06-25 17:07 | disposition home or self-care (01) ==
LOC: M ED 13:40
DX: H53.8 Other visual disturbances (principal); E11.9 Type 2 diabetes mellitus without complications; K21.9 Gastro-esophageal reflux disease without esophagitis; F41.9 Anxiety disorder, unspecified; Z79.899 Other long term (current) drug therapy; Z79.82 Long term (current) use of aspirin; Z88.8 Allergy status to other drugs, medicaments and biological substances; Z91.048 Other nonmedicinal substance allergy status

== ENCOUNTER 2020-06-26 01:34 | Inpatient (IN) | payer OTHER ==
[2020-06-25] MEDS: PANTOPRAZOLE 40MG TAB (PROTONIX) PO SCH (06:15)
[2020-06-25] MEDS: CYCLOBENZAPRINE 5MG TABLET PO SCH (06:15)
[~2020-06-26] VITALS: Ht 170.2 cm; Wt 110.1 kg
[~2020-06-26 01:34] MED LIST changes: +AMITRIPTYLINE 25MG TABLET PO SCH; +QUEtiapine FUMARATE 50MG TAB PO SCH
--- OUTSIDE RECORDS SUMMARY | 2020-06-26 01:50 | CCD ---
Author Author [facility]erg[facility] With [facility] Organization [facility]erg[facility] With [facility] Address Unknown Phone Unavailable Care Team Providers Care Neckties Painter Name Role Phone Javier Allen Unavailable PROBLEMS Type Condition ICD9-CM Code WXO05-UP Code Onset Dates Condition S tatus SNOMED Code Notes Problem Human metapneumovirus (hMPV) pneumonia J12.3 A ctive 956567933 Problem Essential hypertension I10 Active 73486030 Problem Hx MRSA infection Z86.14 Active 818665862 Problem Mucocutaneous candidiasis B37.2 Active 749328 05 Problem Obstructive sleep apnea syndrome G47.33 Active 89594436 Problem Requires continuous at home supplemental oxygen Z9 9.81 Active 126863189 Problem Current chronic use of systemic steroids Z79.52 Active 697260315444961 Problem Moderate episode of recurrent major depressive disorder F33.1 Active 193151891 Problem 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 Active 305819201 Problem Dermatitis L30.9 Active 850853511 Problem Bilateral atelectasis J98.11 Active 55590132 Problem Intention tremor G25.2 Active 49515191 Problem Depression, unspecified depression type F32.9 Active 67014728 ALLERGIES Allergen (clinical drug ingredient) Drug/Non Drug Allergy do cumented on EMR Reaction Allergy Type Onset Date Status plastic Tape Rash Non Drug Allergy 04/30/2019 Active ENCOUNTERS from 1975 to 2020-06-17 Encounter Location Date Provider [place] [facility] [place] [address] [place] [address] Jun, Allen Herrera IMMUNIZATIONS Vaccine Route Administration Date Status Influenza (18 yrs & older) Flublok IM Intramuscular Mar 30, 2020 Administered Pneumococcal Adult 0.5mL (Pneumovax 23) Unknown Apr 12, 2019 Administered TDAP 0.5mL (Boostrix) Unknown Apr 12, 2019 Administer ed Influenza (6mo & up) Fluzone IM Intramuscular Apr 30, 2019 Ad ministered SOCIAL HISTORY Tobacco Use: Social History Observation Description Date Details (start date - stop date) Never Smoker Sex Assigned At : Social History Observation Description Sex Assigned At Unknown Education: Question Answer Notes Level of Education: College Audit Question Answer Notes Total Score: 1 Interpretation: Alcohol Education Language: Question Answer Notes Languages spoken: Peruvian Quaker: Question Answer Notes Quaker 08 [employer] Sexual Hx: Question Answer Notes Had sex in the last 12 months (vaginal, oral, or anal)? No Drug and Alcohol Question Answer Notes Total Score: 0 Interpretation: No problems reported Alcohol Screening: Question Answer Notes Did you have a drink containing alcohol in the past year? Ye s Points 1 Interpretation Negative How many drinks did you have on a typica l day when you were drinking in the past year? 1 or 2 (0 points) How often did you have a drink containing alcohol in t he past year? Monthly or less (1 point) Tobacco Use: Question Answer Notes Are you a: never smoker REASON FOR REFERRAL No Information VITAL SIGNS No information MEDICATIONS Medication SIG (Take, Route, Frequency, Duration) Notes Start Da te End Date Status Topiramate 50 MG 1 tablet Orally Once a day May, Active Duloxetine HCl 60 MG 1 capsule Orally Once a day for 30 day(s) Active Ritalin 5 MG 1 tablet on an empty stomach in am and 1 tablet at noon Orally Daily in am and at noon for 30 days May, Active Baclofen 10 MG 1 tablet with food or milk Orally Three times a day May, Active PredniSONE 5 MG Orally daily Not-Ta [place] AcetaZOLAMIDE ER 500 MG 1 capsule Orally Once a day for 30 day(s) Active Melatonin 10 MG at bedtime Orally Once a day for 30 Days 0 May, Active Albuterol Sulfate HFA 108 (90 Base) MCG/ACT 1 puff as needed Inhalation every 4 hrs for 17 days Not-Taking Doxycycline Hyclate 100 MG 1 capsule Orally Once a day for 10 day(s) Active Ipratropium [place] 0.02 % as directed Inhalation every 8 hrs for 17 days Not-Taking Hydrocodone-Acetaminophen 5-325 MG 1 tablet as needed Orally every 6 hrs Active Seroquel 50 MG 1 tablet at bedtime Orally Once a day for 30 day(s) Active Amitriptyline HCl 25 MG 1 tab Orally twice daily for 30 Days Active Symbicort 160-4.5 MCG/ACT 2 puffs Inhalation Once a day for 30 days Not-Taking Sertraline HCl 50 MG 1.5 tablet Oral once daily Active Fluconazole 100 MG 1 tablet Oral Daily Active Potassium Chloride Izzy ER 10 MEQ 2 tab Oral Once a day for 30 D ays May, Active Calcitriol 0.25 MCG 1 capsule Oral Once a day for 30 Days Active Methazolamide 25 MG 2 tablets Orally Twice a day for 30 day(s) Active Ropinirole HCl 1 MG 1 tablet Oral Daily for 30 Days May Active Fluocinonide 0.05 % 1 application Externally Twice a day for 14 day(s ) Active SM Aspirin Adult Low Strength 81 MG 1 tablet Oral Once a day for 30 D ays Active Lasix 40 MG 1.5 tablet Orally Once a day Not-Taking Cyclobenzaprine HCl 5 MG 1 tablet at bedtime as neede d Oral Once a day for 30 Days May, Active Nystop 580138 UNIT/GM 1 application Externally Twice a day for 10 day (s) Active Sulfamethoxazole-Trimethoprim 800-160 MG 1 tablet Oral three times a week for 30 Days May, Active Hydrochlorothiazide 25 mg 1 tablet Oral Once a day for 30 Days Active Valsartan 160 MG 1 null Orally Once a day for 30 day(s) May, Not-Taking Vitamin D (Ergocalciferol) 1.25 MG (53324 UT) 1 capsule Oral once a w [place] Not-Taking May Have - portable oxygen 2 L daily via [place] ( J98.4 ) Alonzo y for 90 day(s) October, Active Pantoprazole Sodium 40 MG 1 tablet Oral twice daily for 30 Days May, Active Torsemide 100 MG 1 tablet Orally Once a day for 30 day(s) Active Metoprolol Succinate ER 100 MG 1 tablet Oral Once a day for 30 D ays May, Active Lyrica 300 MG 1 capsule Orally twice daily for 30 May, Active PROCEDURES No Information RESULTS No Results REASON FOR VISIT [facility] MEDICAL (GENERAL) HISTORY Type Description Date Medical History hypertension Medical History 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 Medical History CIDP Surgical History cholecystectomy Surgical History appendectomy Surgical History umbilical hernia repair Surgical History left ankle Surgical History left knee Surgical History right arm Surgical History left arm Surgical History bone marrow biopsy Surgical History muscle biopsy (right thigh) Hospitalization History [facility] Pneumonia 10/2018 Hospitalization History CIDP- pneumonia 04/2019 Hospitalization History [facility] (discharged 10/26/19 [facility]) 10/17/19 Hospitalization History [facility] 10/27/19 [place] Section No Information Health Concerns No Information MEDICAL EQUIPMENT No Information MENTAL STATUS No Information FUNCTIONAL STATUS No Information ASSESSMENTS No Information PLAN OF TREATMENT Medication Medication Name Sig Start Date Stop Date Seroquel 50 MG 1 tablet at bedtime Orally Once a day for 30 day (s) Ritalin 5 MG 1 tablet on an empty stomach in am and 1 tablet at noon Orally Daily in am and at noon for 30 days May, Next Appt Details Provider Name:Allen Herrera, 2020-07-08 0 8:00:00 AM, [address] [place] [address], [id number], Insurance Providers Payer Name Payer Address Payer Phone Insured Name Patient Relati onship to Insured Coverage Start Date Coverage End Date [employer] DEPT [address] [place] [phone] ROLLY YANCEY self
--- OUTSIDE RECORDS SUMMARY | 2020-06-26 01:50 | CCD ---
Author Author [facility] Organization [facility] Address Unknown Phone Unavailable Care Team Providers Care Energy And Sustainability Manager Name Role Phone Javier, Allen Unavailable PROBLEMS Type Condition ICD9-CM Code [id number] Code Onset Dates Condition S tatus SNOMED Code Notes Problem Human metapneumovirus (hMPV) pneumonia J12.3 A ctive 742072079 Problem Essential hypertension I10 Active 03983713 Problem Hx MRSA infection Z86.14 Active 856566626 Problem Mucocutaneous candidiasis B37.2 Active 885613 05 Problem Obstructive sleep apnea syndrome G47.33 Active 68539412 Problem Requires continuous at home supplemental oxygen Z9 9.81 Active 153352176 Problem Current chronic use of systemic steroids Z79.52 Active 268464967422218 Problem Moderate episode of recurrent major depressive disorder F33.1 Active 787432362 Problem 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 Active 268908722 Problem Dermatitis L30.9 Active 076436710 Problem Bilateral atelectasis J98.11 Active 44570489 Problem Intention tremor G25.2 Active 45972932 Problem Depression, unspecified depression type F32.9 Active 87322976 ALLERGIES Allergen (clinical drug ingredient) Drug/Non Drug Allergy do cumented on EMR Reaction Allergy Type Onset Date Status plastic Tape Rash Non Drug Allergy 04/30/2019 Active ENCOUNTERS from 1975 to 2020-06-17 Encounter Location Date Provider Diagnosis [address] [address] 05 Jun, 2020 Allen Herrera Shortness of breath R06.02 IMMUNIZATIONS Vaccine Route Administration Date Status Influenza [...] Education Language: Question Answer Notes Languages spoken: Macedonian Orthodox: Question Answer Notes Orthodox 08 Advent Sexual Hx: Question Answer Notes Had sex [...] a day for 10 day(s) Active Ipratropium [place] 0.02 % as directed Inhalation every 8 [...] day for 30 Days May, Active Nystop 665134 UNIT/GM 1 application Externally Twice a day for 10 day (s) Active Sulfamethoxazole-Trimethoprim 800-160 MG 1 tablet Oral three times a week for 30 Days May, Active Hydrochlorothiazide 25 mg 1 tablet Oral Once a day for 30 Days Active Valsartan 160 MG 1 null Orally Once a day for 30 day(s) May, Not-Taking Vitamin D (Ergocalciferol) 1.25 MG (79769 UT) 1 capsule Oral once a w [place] Not-Taking May Have - portable oxygen 2 [...] Information RESULTS No Results REASON FOR VISIT COVID-19 Testing, Subjective fever, chills, myalgias MEDICAL (GENERAL) HISTORY Type Description Date Medical History hypertension Medical History 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 Medical History CIDP Surgical History cholecystectomy Surgical History appendectomy Surgical History umbilical hernia repair Surgical History left ankle Surgical History left knee Surgical History right arm Surgical History left arm Surgical History bone marrow biopsy Surgical History muscle biopsy (right thigh) Hospitalization History [facility] Pneumonia 10/2018 Hospitalization History [facility]- pneumonia 04/2019 Hospitalization History [facility] (discharged 10/26/19 [facility] [place] 10/17/19 Hospitalization History [facility] 10/27/19 Goals Section No Information Health Concerns No Information MEDICAL EQUIPMENT No Information MENTAL STATUS No Information FUNCTIONAL STATUS No Information ASSESSMENTS Encounter Date Diagnosis Assessment Notes Treatment Notes Treatm ent Clinical Notes Jun, Shortness of breath (ICD-10 - R06.02) Patient reporting subjective fever, chills and myalgias. Order for COVID-19 test placed given patient is extremely high risk. Test to be performed by home-health. PLAN OF TREATMENT Medication Medication Name Sig Start Date Stop Date Seroquel 50 MG 1 tablet at bedtime Orally Once a day for 30 day (s) Ritalin 5 MG 1 tablet on an empty stomach in am and 1 tablet at noon Orally Daily in am and at noon for 30 days May, Treatment Notes Assessment Notes Clinical Notes Shortness of breath Patient reporting seo bjective fever, chills and myalgias. Order for COVID-19 test placed given patient is extremely high risk. Test to be performed by home-health. Treatment Notes Test Name Order Date Coronavirus 2019 Nasopharygeal (Send Out) COVID 0 1-06 Next Appt Details Provider Name:Allen Herrera, 2020-07-08 0 8:00:00 AM, [address] [facility], [place], [address], Insurance Providers Payer Name Payer Address Payer Phone Insured Name Patient Relati onship to Insured Coverage Start Date Coverage End Date [facility] [employer] CLAIM[employer] [address]PT [address] [facility] [phone] ROLLY [id number]
--- OUTSIDE RECORDS SUMMARY | 2020-06-26 01:54 | CCD ---
Author Author [facility] Organization [facility] Address Unknown Phone Unavailable Support Name Relationship Address Phone DISABLED Next Of Kin Unknown Unavailable ENID SHAW Next Of Kin [address] [place] [id number] [place]OG[place] Next Of Kin [address] [place] [address] [facility] DEPT CORRECTIONS Next Of Kin [place] [address] [facility] DEPT OF CORRECTIONS Next Of Kin [facility] [address] NONE BETTYE [place] [address] ESMER CARRENO Next Of Kin NA Unknown [employer]RECTIONAL FACILI Next Of Kin [address] [place] [address] JAZMÍN LEBLANC Next Of Kin [address] [place] [address] SHEPARJAVIER, DAVID Next Of Kin [address] [place] [id number] BETTYE ESPINAL Next Of Kin [address] [place] [address] SHEPARDSON, BETTYE Next Of Kin [address] [place] [address] SHEPARDSON, BETTYE Next Of Kin [address] [place] [id number] SHEPARDSON, DAVID ECON [address] [facility] [place] [address] Unavailable SHEPARJAVIER, BETTYE ECON [address] [place] [address] Unavailable Care Team Providers Care Automation And Controls Instructor Name Role Phone Bong LUCIO Unavailable Unavailable Norm Conrad TELEGRAPH REPEATER MECHANIC-BC Unavailable Unavailable Spurbeck, L Nila TELEGRAPH REPEATER MECHANIC-BC Unavailable Unavailable Spurbeck, L Nila TELEGRAPH REPEATER MECHANIC-BC Unavailable Unavailable Spurbeck, L Nila TELEGRAPH REPEATER MECHANIC-BC Unavailable Unavailable Spurbeck, L Nila TELEGRAPH REPEATER MECHANIC-BC Unavailable Unavailable MANGLA [id number], SHAVON [id number] Unavailable Unavailable MANGLA [id number], SHAVON [id number] Unavailable Unavailable BOAHENE, A JENNY MD Unavailable Unavailable BOAHENE, A JENNY MD Unavailable Unavailable BOAHENE, A JENNY MD Unavailable Unavailable BOAHENE, A JENNY MD Unavailable Unavailable BOAHENE, A JENNY MD Unavailable Unavailable BOAHENE, A JENNY MD Unavailable Unavailable BOAHENE, A JENNY MD Unavailable Unavailable BOAHENE, A JENNY MD Unavailable Unavailable BOAHENE, A JENNY MD Unavailable Unavailable BOAHENE, A JENNY MD Unavailable Unavailable BOAHENE, A JENNY MD Unavailable Unavailable BOAHENE, A JENNY MD Unavailable Unavailable BOAHENE, A JENNY MD Unavailable Unavailable BOAHENE, A JENNY MD Unavailable Unavailable BOAHENE, A JENNY MD Unavailable Unavailable BOAHENE, A JENNY MD Unavailable Unavailable BOAHENE, A JENNY MD Unavailable Unavailable BOAHENE, A JENNY MD Unavailable Unavailable BOAHENE, A JENNY MD Unavailable Unavailable BOAHENE, A JENNY MD Unavailable Unavailable BOAHENE, A JENNY MD Unavailable Unavailable BOAHENE, A JENNY MD Unavailable Unavailable BOAHENE, A JENNY MD Unavailable Unavailable BOAHENE, A JENNY MD Unavailable Unavailable BOAHENE, A JENNY MD Unavailable Unavailable BOAHENE, A JENNY MD Unavailable Unavailable BOAHENE, A JENNY MD Unavailable Unavailable BOAHENE, A JENNY MD Unavailable Unavailable BOAHENE, A JENNY MD Unavailable Unavailable BOAHENE, A JENNY MD Unavailable Unavailable BOAHENE, A JENNY MD Unavailable Unavailable BOAHENE, A JENNY MD Unavailable Unavailable BOAHENE, A JENNY MD Unavailable Unavailable BOAHENE, A JENNY MD Unavailable Unavailable BOAHENE, A JENNY MD Unavailable Unavailable BOAHENE, A JENNY MD Unavailable Unavailable BOAHENE, A JENNY MD Unavailable Unavailable BOAHENE, A JENNY MD Unavailable Unavailable BOAHENE, A JENNY MD Unavailable Unavailable BOAHENE, A JENNY MD Unavailable Unavailable BOAHENE, A JENNY MD Unavailable Unavailable BOAHENE, A JENNY MD Unavailable Unavailable BOAHENE, A JENNY MD Unavailable Unavailable BOAHENE, A JENNY MD Unavailable Unavailable BOAHENE, A JENNY MD Unavailable Unavailable BOAHENE, A JENNY MD Unavailable Unavailable BOAHENE, A JENNY MD Unavailable Unavailable BOAHENE, A JENNY MD Unavailable Unavailable BOAHENE, A JENNY MD Unavailable Unavailable BOAHENE, A JENNY MD Unavailable Unavailable BOAHENE, A JENNY MD Unavailable Unavailable BOAHENE, A JENNY MD Unavailable Unavailable BOAHENE, A JENNY MD Unavailable Unavailable BOAHENE, A JENNY MD Unavailable Unavailable BOAHENE, A JENNY MD Unavailable Unavailable BOAHENE, A JENNY MD Unavailable Unavailable BOAHENE, A JENNY MD Unavailable Unavailable BOAHENE, A JENNY MD Unavailable Unavailable BOAHENE, A JENNY MD Unavailable Unavailable BOAHENE, A JENNY MD Unavailable Unavailable BOAHENE, A JENNY MD Unavailable Unavailable BOAHENE, A JENNY MD Unavailable Unavailable BOAHENE, A JENNY MD Unavailable Unavailable BOAHENE, A JENNY MD Unavailable Unavailable BOAHENE, A JENNY MD Unavailable Unavailable BOAHENE, A JENNY MD Unavailable Unavailable BOAHENE, A JENNY MD Unavailable Unavailable BOAHENE, A JENNY MD Unavailable Unavailable BOAHENE, A JENNY MD Unavailable Unavailable BOAHENE, A JENNY MD Unavailable Unavailable BOAHENE, A JENNY MD Unavailable Unavailable BOAHENE, A JENNY MD Unavailable Unavailable BOAHENE, Bong JENNY MD Unavailable Unavailable BOAHENE, A JENNY MD Unavailable Unavailable BOAHENE, A JENNY MD Unavailable Unavailable BOAHENE, A JENNY MD Unavailable Unavailable BOAHENE, Bong JENNY MD Unavailable Unavailable BOAHENE, Bong JENNY Unavailable Unavailable Alla Loyd MD Unavailable Unavailable Evert, Alla Peters MD Unavailable Unavailable Alla Loyd MD Unavailable Unavailable Evert, Alla Peters MD Unavailable Unavailable Evert, Alla Peters MD Unavailable Unavailable Evert, Alla Peters MD Unavailable Unavailable Evert, Alla Peters MD Unavailable Unavailable Alla Loyd MD Unavailable Unavailable Alla Loyd MD Unavailable Unavailable PAYTON WRIGHT Unavailable Unavailable PAYTON WRIGHT Unavailable Unavailable PAYTON WRIGHT Unavailable Unavailable Lebron RIVERO Unavailable Unavailable Reyes Argueta MD Unavailable [phone] Reyes Argueta MD Unavailable [phone] Reyes Argueta MD Unavailable [phone] Reyes Argueta MD Unavailable [phone] Reyes Argueta MD Unavailable [phone] Reyes Argueta MD Unavailable [phone] Phillip Beltran MD Unavailable Unavailable GRUDOWSKI, P CHRISTOPHER CONTRACT RECRUITER Unavailable GRUDOWSKI, P CHRISTOPHER CONTRACT RECRUITER Unavailable GRUDOWSKI, P CHRISTOPHER CONTRACT RECRUITER Unavailable GRUDOWSKI, P CHRISTOPHER CONTRACT RECRUITER Unavailable GRUDOWSKI, P CHRISTOPHER CONTRACT RECRUITER Unavailable GRUDOWSKI, P CHRISTOPHER CONTRACT RECRUITER Unavailable GRUDOWSKI, P CHRISTOPHER CONTRACT RECRUITER Unavailable GRUDOWSKI, P CHRISTOPHER CONTRACT RECRUITER Unavailable GRUDOWSKI, P CHRISTOPHER CONTRACT RECRUITER Unavailable GRUDOWSKI, P CHRISTOPHER CONTRACT RECRUITER Unavailable GRUDOWSKI, P CHRISTOPHER CONTRACT RECRUITER Unavailable GRUDOWSKI, P CHRISTOPHER CONTRACT RECRUITER Unavailable GRUDOWSKI, P CHRISTOPHER CONTRACT RECRUITER Unavailable GRUDOWSKI, P CHRISTOPHER CONTRACT RECRUITER Unavailable GRUDOWSKI, P CHRISTOPHER CONTRACT RECRUITER Unavailable GRUDOWSKI, P CHRISTOPHER CONTRACT RECRUITER Unavailable GRUDOWSKI, P CHRISTOPHER CONTRACT RECRUITER Unavailable GRUDOWSKI, P CHRISTOPHER CONTRACT RECRUITER Unavailable GRUDOWSKI, P CHRISTOPHER CONTRACT RECRUITER Unavailable GRUDOWSKI, P CHRISTOPHER CONTRACT RECRUITER Unavailable GRUDOWSKI, P CHRISTOPHER CONTRACT RECRUITER Unavailable GRUDOWSKI, P CHRISTOPHER CONTRACT RECRUITER Unavailable NOSTROM, NOE CONTRACT RECRUITER Unavailable Unavailable NOSTROM, NOE CONTRACT RECRUITER Unavailable Unavailable NOSTROM, NOE CONTRACT RECRUITER Unavailable Unavailable NOSTROM, NOE CONTRACT RECRUITER Unavailable Unavailable NOSTROM, NOE CONTRACT RECRUITER Unavailable Unavailable NOSTROM, NOE CONTRACT RECRUITER Unavailable Unavailable NOSTROM, NOE CONTRACT RECRUITER Unavailable Unavailable NOSTROM, NOE CONTRACT RECRUITER Unavailable Unavailable NOSTROM, NOE CONTRACT RECRUITER Unavailable Unavailable NOSTROM, NOE CONTRACT RECRUITER Unavailable Unavailable NOSTROM, NOE CONTRACT RECRUITER Unavailable Unavailable NOSTROM, NOE CONTRACT RECRUITER Unavailable Unavailable NOSTROM, NOE CONTRACT RECRUITER Unavailable Unavailable Iggy Huber MD Unavailable Unavailable Iggy Huber MD Unavailable Unavailable Iggy Huber MD Unavailable Unavailable Iggy Huber MD Unavailable Unavailable Iggy Huber MD Unavailable Unavailable Iggy Huber MD Unavailable Unavailable Iggy Huber MD Unavailable Unavailable Iggy Huber MD Unavailable Unavailable Iggy Huber MD Unavailable Unavailable Iggy Huber MD Unavailable Unavailable Iggy Huber MD Unavailable Unavailable Iggy Huber MD Unavailable Unavailable Iggy Huber MD Unavailable Unavailable Iggy Huber MD Unavailable Unavailable Iggy Huber MD Unavailable Unavailable Iggy Huber MD Unavailable Unavailable Iggy Huber MD Unavailable Unavailable Iggy Huber MD Unavailable Unavailable Iggy Huber MD Unavailable Unavailable Iggy Huber MD Unavailable Unavailable Iggy Huber MD Unavailable Unavailable Iggy Huber MD Unavailable Unavailable Iggy Huber MD Unavailable Unavailable Iggy Huber MD Unavailable Unavailable Iggy Huber MD Unavailable Unavailable Iggy Huber MD Unavailable Unavailable Iggy Huber MD Unavailable Unavailable Iggy Huber MD Unavailable Unavailable Iggy Huber MD Unavailable Unavailable Iggy Huber MD Unavailable Unavailable Iggy Huber MD Unavailable Unavailable Iggy Huber MD Unavailable Unavailable Iggy Huber MD Unavailable Unavailable Iggy Huber MD Unavailable Unavailable Iggy Huber MD Unavailable Unavailable Iggy Huber MD Unavailable Unavailable Iggy Huber MD Unavailable Unavailable Iggy Huber MD Unavailable Unavailable Iggy Huber MD Unavailable Unavailable Iggy Huber MD Unavailable Unavailable Iggy Huber MD Unavailable Unavailable Iggy Huber MD Unavailable Unavailable Iggy Huber MD Unavailable Unavailable Iggy Huber MD Unavailable Unavailable Iggy Huber MD Unavailable Unavailable Iggy Huber MD Unavailable Unavailable Iggy Huber MD Unavailable Unavailable Iggy Huber MD Unavailable Unavailable Iggy Huber MD Unavailable Unavailable Iggy Huber MD Unavailable Unavailable Iggy Huber MD Unavailable Unavailable Iggy Huber MD Unavailable Unavailable Iggy Huber MD Unavailable Unavailable Iggy Huber MD Unavailable Unavailable Iggy Huber MD Unavailable Unavailable Iggy Huber MD Unavailable Unavailable Iggy Huber MD Unavailable Unavailable Iggy Huber MD Unavailable Unavailable Iggy Huber MD Unavailable Unavailable Iggy Huber MD Unavailable Unavailable Iggy Huber MD Unavailable Unavailable Iggy Huber MD Unavailable Unavailable Iggy Huber MD Unavailable Unavailable Iggy Huber MD Unavailable Unavailable Iggy Huber MD Unavailable Unavailable Iggy Huber MD Unavailable Unavailable Iggy Huber MD Unavailable Unavailable Iggy Huber MD Unavailable Unavailable Iggy Huber MD Unavailable Unavailable Iggy Huber MD Unavailable Unavailable gIgy Huber MD Unavailable Unavailable Iggy Huber MD Unavailable Unavailable Iggy Huber MD Unavailable Unavailable Iggy Huber MD Unavailable Unavailable Iggy Huber MD Unavailable Unavailable AGUSTÍN, L ANUM Unavailable Unavailable AGUSTÍN, L ANUM Unavailable Unavailable AGUSTÍN, L ANUM Unavailable Unavailable AGUSTÍN, L ANUM Unavailable Unavailable AGUSTÍN, L ANUM Unavailable Unavailable AGUSTÍN, L ANUM Unavailable Unavailable AGUSTÍN, L ANUM Unavailable Unavailable AGUSTÍN, L ANUM Unavailable Unavailable AGUSTÍN, L ANUM Unavailable Unavailable AGUSTÍN, L ANUM Unavailable Unavailable AGUSTÍN, L ANUM Unavailable Unavailable AGUSTÍN, L ANUM Unavailable Unavailable AGUSTÍN, L ANUM Unavailable Unavailable AGUSTÍN, L ANUM Unavailable Unavailable AGUSTÍN, L ANUM Unavailable Unavailable AGUSTÍN, L ANUM Unavailable Unavailable AGUSTÍN, L ANUM Unavailable Unavailable AGUSTÍN, L ANUM Unavailable Unavailable AGUSTÍN, L ANUM Unavailable Unavailable AGUSTÍN, L ANUM Unavailable Unavailable AGUSTÍN, L ANUM Unavailable Unavailable AGUSTÍN, L ANUM Unavailable Unavailable AGUSTÍN, L ANUM Unavailable Unavailable AGUSTÍN, L ANUM Unavailable Unavailable AGUSTÍN, L ANUM Unavailable Unavailable AGUSTÍN, L ANUM Unavailable Unavailable AGUSTÍN, L ANUM Unavailable Unavailable AGUSTÍN, L ANUM Unavailable Unavailable AGUSTÍN, L ANUM Unavailable Unavailable AGUSTÍN, L ANUM Unavailable Unavailable AGUSTÍN, L ANUM Unavailable Unavailable AGUSTÍN, L ANUM Unavailable Unavailable AGUSTÍN, L ANUM Unavailable Unavailable AGUSTÍN, L ANUM Unavailable Unavailable Ramsey IV, Cheng Shaheen TELEGRAPH REPEATER MECHANIC Unavailable Unavailable Ramsey IV, Cheng Jamison TELEGRAPH REPEATER MECHANIC Unavailable Unavailable Ramsey IV, Cheng Jamison TELEGRAPH REPEATER MECHANIC Unavailable Unavailable SPENCERJOSE ANTONIO AVENDAÑO PA Unavailable Unavailable SPENCERJOSE ANTONIO PA Unavailable Unavailable SPENCERJOSE ANTONIO AVENDAÑO PA Unavailable Unavailable JOSE ANTONIO SPENCER PA Unavailable Unavailable ADITI AIKEN, [id number] Bong RODRIGUES MD Unavailable Unavailbong PENNINGTON MD, [id number] Bong RODRIGUES MD Unavailable Unavailbong PENNINGTON MD, [id number] Bong RODRIGUES MD Unavailable Unavailbong PENNINGTON MD, [id number] Bong RODRIGUES MD Unavailable Unavailbong PENNINGTON MD, [id number] Bong RODRIGUES MD Unavailable Unavailbong PENNINGTON MD, [id number] Bong RODRIGUES MD Unavailable Unavailbong PENNINGTON MD, [id number] Bong RODRIGUES MD Unavailable Unavailbong PENNINGTON MD, [id number] Bong RODRIGUES MD Unavailable Unavailbong PENNINGTON MD, [id number] Bong RODRIGUES MD Unavailable Unavailbong PENNINGTON MD, [id number] Bong RODRIGUES MD Unavailable Unavailbong PENNINGTON MD, [id number] Bong RODRIGUES MD Unavailable Unavailbong PENNINGTON MD, [id number] Bong RODRIGUES MD Unavailable Unavailbong PENNINGTON MD, [id number] Bong RODRIGUES MD Unavailable Unavailbong PENNINGTON MD, [id number] Bong RODRIGUES MD Unavailable Unavailbong PENNINGTON MD, [id number] Bong RODRIGUES MD Unavailable Unavailbong PENNINGTON MD, [id number] Bong RODRIGUES MD Unavailable Unavaila ble ADITI AIKEN, [id number] Bong RODRIGUES MD Unavailable Unavaila ble ALIASES , DEFAULT / GENERIC / UNKNOWN PROVIDER * Unavailable Unavailable ALIASES , DEFAULT / GENERIC / UNKNOWN PROVIDER * Unavailable Unavailable ALIASES , DEFAULT / GENERIC / UNKNOWN PROVIDER * Unavailable Unavailable ALIASES , DEFAULT / GENERIC / UNKNOWN PROVIDER * Unavailable Unavailable ALIASES , DEFAULT / GENERIC / UNKNOWN PROVIDER * Unavailable Unavailable ALIASES , DEFAULT / GENERIC / UNKNOWN PROVIDER * Unavailable Unavailable ALIASES , DEFAULT / GENERIC / UNKNOWN PROVIDER * Unavailable Unavailable ALIASES , DEFAULT / GENERIC / UNKNOWN PROVIDER * Unavailable Unavailable ALIASES , DEFAULT / GENERIC / UNKNOWN PROVIDER * Unavailable Unavailable ALIASES , DEFAULT / GENERIC / UNKNOWN PROVIDER * Unavailable Unavailable ALIASES , DEFAULT / GENERIC / UNKNOWN PROVIDER * Unavailable Unavailable ALIASES , DEFAULT / GENERIC / UNKNOWN PROVIDER * Unavailable Unavailable ALIASES , DEFAULT / GENERIC / UNKNOWN PROVIDER * Unavailable Unavailable ALIASES , DEFAULT / GENERIC / UNKNOWN PROVIDER * Unavailable Unavailable ALIASES , DEFAULT / GENERIC / UNKNOWN PROVIDER * Unavailable Unavailable ALIASES , DEFAULT / GENERIC / UNKNOWN PROVIDER * Unavailable Unavailable ALIASES , DEFAULT / GENERIC / UNKNOWN PROVIDER * Unavailable Unavailable ALIASES , DEFAULT / GENERIC / UNKNOWN PROVIDER * Unavailable Unavailable ALIASES , DEFAULT / GENERIC / UNKNOWN PROVIDER * Unavailable Unavailable ALIASES , DEFAULT / GENERIC / UNKNOWN PROVIDER * Unavailable Unavailable ALIASES , DEFAULT / GENERIC / UNKNOWN PROVIDER * Unavailable Unavailable ALIASES , DEFAULT / GENERIC / UNKNOWN PROVIDER * Unavailable Unavailable ALIASES , DEFAULT / GENERIC / UNKNOWN PROVIDER * Unavailable Unavailable ALIASES , DEFAULT / GENERIC / UNKNOWN PROVIDER * Unavailable Unavailable Kelsey-Urbina, Phillip Leonardo MD Unavailable Unavailable Kelsey-Urbina, Phillip Leonardo MD Unavailable Unavailable Kelsey-Urbina, Phillip Leonardo MD Unavailable Unavailable Kelsey-Urbina, Phillip Leonardo MD Unavailable Unavailable Kelsey-Urbina, K Jorden AIKEN Unavailable Unavailable Lyapin, Kike AIKEN Unavailable Unavailable Rechlin, P Matias DO Unavailable Unavailable Rechlin, P Matias DO Unavailable Unavailable Rechlin, P Matias DO Unavailable Unavailable Rechlin, P Matias DO Unavailable Unavailable Rechlin, P Matias DO Unavailable Unavailable Rechlin, P Matias DO Unavailable Unavailable Rechlin, P Matias DO Unavailable Unavailable Rechlin, P Matias DO Unavailable Unavailable Rechlin, P Matias DO Unavailable Unavailable Rechlin, P Matias DO Unavailable Unavailable Rechlin, P Matias DO Unavailable Unavailable Rechlin, P Matias DO Unavailable Unavailable Rechlin, P Matias DO Unavailable Unavailable Rechlin, P Matias DO Unavailable Unavailable Rechlin, P Matias DO Unavailable Unavailable Rechlin, P Matias DO Unavailable Unavailable Rechlin, P Matias DO Unavailable Unavailable Rechlin, P Matias DO Unavailable Unavailable Rechlin, P Matias DO Unavailable Unavailable Rechlin, P Matias DO Unavailable Unavailable Rechlin, P Matias DO Unavailable Unavailable Rechlin, P Matias DO Unavailable Unavailable Rechlin, P Matias DO Unavailable Unavailable Rechlin, P Matias DO Unavailable Unavailable Rechlin, P Matias DO Unavailable Unavailable Rechlin, P Matias DO Unavailable Unavailable Rechlin, P Matias DO Unavailable Unavailable Rechlin, P Matias DO Unavailable Unavailable Rechlin, P Matias DO Unavailable Unavailable Rechlin, P Matias DO Unavailable Unavailable Rechlin, P Matias DO Unavailable Unavailable Rechlin, P Matias DO Unavailable Unavailable Rechlin, P Matias DO Unavailable Unavailable Rechlin, P Matias DO Unavailable Unavailable Rechlin, P Matias DO Unavailable Unavailable Rechlin, P Matias DO Unavailable Unavailable Rechlin, P Matias DO Unavailable Unavailable Rechlin, P Matias DO Unavailable Unavailable Rechlin, P Matias DO Unavailable Unavailable Rechlin, P Matias DO Unavailable Unavailable Rechlin, P Matias DO Unavailable Unavailable Rechlin, P Matias DO Unavailable Unavailable Rechlin, P Matias DO Unavailable Unavailable Rechlin, P Matias DO Unavailable Unavailable Rechlin, P Matias DO Unavailable Unavailable Rechlin, P Matias DO Unavailable Unavailable Rechlin, P Matias DO Unavailable Unavailable Lyric, Lisbet CONTRACT RECRUITER Unavailable Unavailable Lyric, Lisbet CONTRACT RECRUITER Unavailable Unavailable Lyric, Lisbet CONTRACT RECRUITER Unavailable Unavailable Lyric, Lisbet CONTRACT RECRUITER Unavailable Unavailable Lyric, Lisbet CONTRACT RECRUITER Unavailable Unavailable LeykinAndrew DO Unavailable Unavailable Spencer-Trim, J Jose Antonio PA Unavailable Unavailable Lyndon, Dagoberto DO Unavailable Unavailable Melissa, Dagoberto DO Unavailable Unavailable Melissa, Dagoberto DO Unavailable Unavailable Melissa, Dagoberto DO Unavailable Unavailable Melissa, Dagoberto DO Unavailable Unavailable Whitman, V FCO PA-C Unavailable Unavailable Whitman, V FCO PA-C Unavailable Unavailable Whitman, V FCO PA-C Unavailable Unavailable Whitman, V FCO PA-C Unavailable Unavailable Whitman, V FCO PA-C Unavailable Unavailable Yudith, V FCO PA-C Unavailable Unavailable David, Bong Rodrigues MD Unavailable Unavailable David, Bong Rodrigues MD Unavailable Unavailable David, Bong Rodrigues MD Unavailable Unavailable David, Bong Rodrigues MD Unavailable Unavailable David, Bong Rodrigues MD Unavailable Unavailable David, Bong Rodrigues MD Unavailable Unavailable David, Bong Rodrigues MD Unavailable Unavailable David, Bong Rodrigues MD Unavailable Unavailable David, Bong Rodrigues MD Unavailable Unavailable David, Bong Rodrigues MD Unavailable Unavailable David, Bong Rodrigues MD Unavailable Unavailable David, Bong Rodrigues MD Unavailable Unavailable David, Bong Rodrigues MD Unavailable Unavailable David, Bong Rodrigues MD Unavailable Unavailable David, Bong Rodrigues MD Unavailable Unavailable David, Bong Rodrigues MD Unavailable Unavailable David, Bong Rodrigues MD Unavailable Unavailable David, Bong Rodrigues MD Unavailable Unavailable David, Bong Rodrigues MD Unavailable Unavailable David, Bong Rodrigues MD Unavailable Unavailable David, Bong Rodrigues MD Unavailable Unavailable David, Bong Rodrigues MD Unavailable Unavailable David, Bong Rodrigues MD Unavailable Unavailable David, Bong Rodrigues MD Unavailable Unavailable David, Bong Rodrigues MD Unavailable Unavailable David, Bong Rodrigues MD Unavailable Unavailable David, A Lilia AIKEN Unavailable Unavailable David, Bong Rodrigues MD Unavailable Unavailable David, Bong Rodrigues MD Unavailable Unavailable David, Bong Rodrigues MD Unavailable Unavailable David, Bong Rodrigues MD Unavailable Unavailable David, Bong Rodrigues MD Unavailable Unavailable David, Bong Rodrigues MD Unavailable Unavailable Lebron Diaz MD Unavailable Unavailable SELIN Rodríguez MD Unavailable Unavailable SELIN Rodríguez MD Unavailable Unavailable SELIN Rodríguez MD Unavailable Unavailable SELIN Rodríguez MD Unavailable Unavailable SELIN Rodríguez MD Unavailable Unavailable SELIN Rodríguez MD Unavailable Unavailable RodríguezSELIN branch MD Unavailable Unavailable RodríguezSELIN MD Unavailable Unavailable SELIN Rodríguez MD Unavailable Unavailable RodríguezSELIN branch MD Unavailable Unavailable SELIN Rodríguez MD Unavailable Unavailable SELIN Rodríguez MD Unavailable Unavailable SELIN Rodríguez MD Unavailable Unavailable RodríguezSELIN MD Unavailable Unavailable SELIN Rodríguez MD Unavailable Unavailable SELIN Rodríguez MD Unavailable Unavailable SELIN Rodríguez MD Unavailable Unavailable SELIN Rodríguez MD Unavailable Unavailable SELIN Rodríguez MD Unavailable Unavailable SELIN Rodríguez MD Unavailable Unavailable SELIN Rodríguez MD Unavailable Unavailable SELIN Rodríguez MD Unavailable Unavailable SELIN Rodríguez MD Unavailable Unavailable SELIN Rodríguez MD Unavailable Unavailable SELIN Rodríguez MD Unavailable Unavailable SELIN Rodríguez MD Unavailable Unavailable SELIN Rodríguez MD Unavailable Unavailable SELIN Rodríguez MD Unavailable Unavailable SELIN Rodríguez MD Unavailable Unavailable SELIN Rodríguez MD Unavailable Unavailable SELIN Rodríguez MD Unavailable Unavailable SELIN Rodríguez MD Unavailable Unavailable SELIN Rodríguez MD Unavailable Unavailable SELIN Rodríguez MD Unavailable Unavailable Lebron Garnett MD Unavailable Unavailable Hermelinda Allison Unavailable Unavailable Hermelinda Wright NP Unavailable Unavailable Lebron Garnett MD Unavailable Unavailable Gloria Best MD Unavailable Unavailable Gloria Best MD Unavailable Unavailable Gloria Best MD Unavailable Unavailable Gloria Best MD Unavailable Unavailable Gloria Best MD Unavailable Unavailable Gloria Best MD Unavailable Unavailable Gloria Best MD Unavailable Unavailable Gloria Best MD Unavailable Unavailable Gloria Best MD Unavailable Unavailable Gloria Best MD Unavailable Unavailable Gloria Best MD Unavailable Unavailable Gloria Best MD Unavailable Unavailable Gloria Best MD Unavailable Unavailable Gloria Best MD Unavailable Unavailable Gloria Best MD Unavailable Unavailable Gloria Best MD Unavailable Unavailable Gloria Best MD Unavailable Unavailable Gloria Best MD Unavailable Unavailable Gloria Best MD Unavailable Unavailable Gloria Best MD Unavailable Unavailable Gloria Best MD Unavailable Unavailable Gloria Best MD Unavailable Unavailable Gloria Best MD Unavailable Unavailable Gloria Best MD Unavailable Unavailable Gloria Best MD Unavailable Unavailable Gloria Best MD Unavailable Unavailable Gloria Best MD Unavailable Unavailable Gloria Best MD Unavailable Unavailable Gloria Best MD Unavailable Unavailable Gloria Best MD Unavailable Unavailable Gloria Best MD Unavailable Unavailable Gloria Best MD Unavailable Unavailable Gloria Best MD Unavailable Unavailable Gloria Best MD Unavailable Unavailable Gloria Best MD Unavailable Unavailable Gloria Best MD Unavailable Unavailable Gloria Best MD Unavailable Unavailable Gloria Best MD Unavailable Unavailable Gloria Best MD Unavailable Unavailable Gloria Best MD Unavailable Unavailable Gloria Best MD Unavailable Unavailable Gloria Best MD Unavailable Unavailable Gloria Best MD Unavailable Unavailable Gloria Best MD Unavailable Unavailable Gloria Best MD Unavailable Unavailable Gloria Best MD Unavailable Unavailable Gloria Best MD Unavailable Unavailable Gloria Best MD Unavailable Unavailable Gloria Best MD Unavailable Unavailable Gloria Best MD Unavailable Unavailable Gloria Best MD Unavailable Unavailable Gloria Best MD Unavailable Unavailable Gloria Best MD Unavailable Unavailable Gloria Best MD Unavailable Unavailable Gloria Best MD Unavailable Unavailable Gloria Best MD Unavailable Unavailable Gloria Best MD Unavailable Unavailable Bong Clement MD Unavailable Unavailable SELIN Rodríguez MD Unavailable Unavailable SELIN Rodríguez MD Unavailable Unavailable SELIN Rodríguez MD Unavailable Unavailable SELIN Rodríguez MD Unavailable Unavailable SELIN Rodríguez MD Unavailable Unavailable SELIN Rodríguez MD Unavailable Unavailable SELIN Rodríguez MD Unavailable Unavailable SELIN Rodríguez MD Unavailable Unavailable SELIN Rodríguez MD Unavailable Unavailable SELIN Rodríguez MD Unavailable Unavailable SELIN Rodríguez MD Unavailable Unavailable SELIN Rodríguez MD Unavailable Unavailable SELIN Rodríguez MD Unavailable Unavailable SELIN Rodríguez MD Unavailable Unavailable SELIN Rodríguez MD Unavailable Unavailable SELIN Rodríguez MD Unavailable Unavailable SELIN Rodríguez MD Unavailable Unavailable SELIN Rodríguez MD Unavailable Unavailable SELIN Rodríguez MD Unavailable Unavailable SELIN Rodríguez MD Unavailable Unavailable SELIN Rodríguez MD Unavailable Unavailable SELIN Rodríguez MD Unavailable Unavailable SELIN Rodríguez MD Unavailable Unavailable SELIN Rodríguez MD Unavailable Unavailable SELIN Rodríguez MD Unavailable Unavailable SELIN Rodríguez MD Unavailable Unavailable SELIN Rodríguez MD Unavailable Unavailable SELIN Rodríguez MD Unavailable Unavailable SELIN Rodríguez MD Unavailable Unavailable SELIN Rodríguez MD Unavailable Unavailable SELIN Rodríguez MD Unavailable Unavailable SELIN Rodríguez MD Unavailable Unavailable SELIN Rodríguez MD Unavailable Unavailable SELIN Rodríguez MD Unavailable Unavailable Bonilla Philip MD Unavailable Unavailable Bonilla Philip MD Unavailable Unavailable Bonilla Philip MD Unavailable Unavailable Bonilla Philip MD Unavailable Unavailable Bonilla Philip MD Unavailable Unavailable Bonilla Philip MD Unavailable Unavailable Bonilla Philip MD Unavailable Unavailable Bonilla Philip MD Unavailable Unavailable Bonilla Philip MD Unavailable Unavailable Bonilla Philip MD Unavailable Unavailable Bonilla Philip MD Unavailable Unavailable Bonilla Philip MD Unavailable Unavailable Bonilla Philip MD Unavailable Unavailable Bonilla Philip MD Unavailable Unavailable Bonilla Philip MD Unavailable Unavailable Bonilla Philip MD Unavailable Unavailable Bonilla Philip MD Unavailable Unavailable Bonilla Philip MD Unavailable Unavailable Bonilla Philip MD Unavailable Unavailable Bonilla Philip MD Unavailable Unavailable Bonilla Philip MD Unavailable Unavailable Bonilla Philip MD Unavailable Unavailable Bonilla Philip MD Unavailable Unavailable Bonilla Philip MD Unavailable Unavailable Bonilla Philip MD Unavailable Unavailable Bonilla Philip MD Unavailable Unavailable Bonilla Philip MD Unavailable Unavailable Bonilla Philip MD Unavailable Unavailable Bonilla Philip MD Unavailable Unavailable Bonilla Philip MD Unavailable Unavailable Bonilla Philip MD Unavailable Unavailable Philip, Bonilla Villatoro MD Unavailable Unavailable Philip, Bonilla Villatoro MD Unavailable Unavailable Philip, Bonilla Villatoro MD Unavailable Unavailable Philip, Bonilla Villatoro MD Unavailable Unavailable Philip, Bonilla Villatoro MD Unavailable Unavailable Philip, Bonilla Villatoro MD Unavailable Unavailable Philip, Bonilla Villatoro MD Unavailable Unavailable Philip, Bonilla Villatoro MD Unavailable Unavailable Philip, Bonilla Villatoro MD Unavailable Unavailable Philpi, Bonilla Villatoro MD Unavailable Unavailable Philip, Bonilla Villatoro MD Unavailable Unavailable Philip, Bonilla Villatoro MD Unavailable Unavailable Philip, Bonilla Villatoro MD Unavailable Unavailable Philip, Bonilla Villatoro MD Unavailable Unavailable Philip, Bonilla Villatoro MD Unavailable Unavailable Philip, Bonilla Villatoro MD Unavailable Unavailable Philip, Bonilla Villatoro MD Unavailable Unavailable Philip, Bonilla Villatoro MD Unavailable Unavailable Philip, Bonilla Villatoro MD Unavailable Unavailable Nostrom, R Noe INSOLE TACKER Unavailable Unavailable ADJAPONG, JOHNNA Unavailable Unavailable Christopher P Rehanaowski, P TELEGRAPH REPEATER MECHANIC TELEGRAPH REPEATER MECHANIC Unavailable Unava ilable Cheng Luong MD Unavailable Unavailable Cheng Luong MD Unavailable Unavailable Urbano, Bong Loyola MD Unavailable Unavailable Urbano, Bong Loyola MD Unavailable Unavailable Kike Norton MD Unavailable Unavailable Sridhar Zimmerman MD Unavailable Unavailable Sridhar Zimmerman MD Unavailable Unavailable Sridhar Zimmerman MD Unavailable Unavailable Sirdhar Zimmerman MD Unavailable Unavailable SEARS, A NALLELY DO Unavailable Unavailable SEARS, A NALLELY DO Unavailable Unavailable SEARS, A NALLELY DO Unavailable Unavailable SEARS, A NALLELY DO Unavailable Unavailable SEARS, A NALLELY DO Unavailable Unavailable SEARS, A NALLELY DO Unavailable Unavailable SEARS, A NALLELY DO Unavailable Unavailable SEARS, A NALLELY DO Unavailable Unavailable SEARS, A NALLELY DO Unavailable Unavailable SEARS, A NALLELY DO Unavailable Unavailable SEARS, A NALLELY DO Unavailable Unavailable SEARS, A NALLELY DO Unavailable Unavailable SEARS, A NALLELY DO Unavailable Unavailable SEARS, A NALLELY DO Unavailable Unavailable SEARS, A NALLELY DO Unavailable Unavailable SEARS, A NALLELY DO Unavailable Unavailable SEARS, A NALLELY DO Unavailable Unavailable SEARS, A NALLELY DO Unavailable Unavailable SEARS, A NALLELY DO Unavailable Unavailable SEARS, A NALLELY DO Unavailable Unavailable SEARS, A NALLELY DO Unavailable Unavailable SEARS, A NALLELY DO Unavailable Unavailable SEARS, A NALLELY DO Unavailable Unavailable SEARS, A NALLELY DO Unavailable Unavailable SEARS, A NALLELY DO Unavailable Unavailable SEARS, A NALLELY DO Unavailable Unavailable SEARS, A NALLELY DO Unavailable Unavailable SEARS, A NALLELY DO Unavailable Unavailable SEARS, A NALLELY DO Unavailable Unavailable SEARS, A NALLELY DO Unavailable Unavailable SEARS, A NALLELY DO Unavailable Unavailable SEARS, A NALLELY DO Unavailable Unavailable SEARS, A NALLELY DO Unavailable Unavailable SEARS, A NALLELY DO Unavailable Unavailable SEARS, A NALLELY DO Unavailable Unavailable SEARS, A NALLELY DO Unavailable Unavailable SEARS, A NALLELY DO Unavailable Unavailable SEARS, A NALLELY DO Unavailable Unavailable SEARS, A NALLELY DO Unavailable Unavailable SEARS, A NALLELY DO Unavailable Unavailable SEARS, A NALLELY DO Unavailable Unavailable SEARS, A NALLELY DO Unavailable Unavailable SEARS, A NALLELY DO Unavailable Unavailable SEARS, A NALLELY DO Unavailable Unavailable SEARS, A NALLELY DO Unavailable Unavailable Leykin, Andrew DO Unavailable Unavailable Malek, Lebron Dawson MD Unavailable [phone] Malek, Lebron Dawson MD Unavailable [phone] Malek, T Eunice AIKEN Unavailable [phone] Malek, Lebron Dawson MD Unavailable [phone] Malek, T Hamza Unavailable [phone] Malek, T Hamza MD Unavailable [phone] Malek, T Hamza MD Unavailable [phone] Malek, T Hamza Unavailable [phone] Malek, T Hamza MD Unavailable [phone] Malek, T Hamza MD Unavailable [phone] Malek, T Hamza Unavailable [phone] Malek, T Hamza MD Unavailable [phone] Malek, T Hamza MD Unavailable [phone] Gloria Best MD Unavailable Unavailable Gloria Best MD Unavailable Unavailable Gloria Best MD Unavailable Unavailable Gloria Best MD Unavailable Unavailable Gloria Best MD Unavailable Unavailable Gloria Best MD Unavailable Unavailable Gloria Best MD Unavailable Unavailable Gloria Best MD Unavailable Unavailable Gloria Best MD Unavailable Unavailable Gloria Best MD Unavailable Unavailable lGoria Best MD Unavailable Unavailable Gloria Best MD Unavailable Unavailable Gloria Best MD Unavailable Unavailable Gloria Best MD Unavailable Unavailable Gloria Best MD Unavailable Unavailable Gloria Best MD Unavailable Unavailable Gloria Best MD Unavailable Unavailable Gloria Best MD Unavailable Unavailable SleGloria rivas MD Unavailable Unavailable Gloria Best MD Unavailable Unavailable Gloria Best MD Unavailable Unavailable Gloria Best MD Unavailable Unavailable Gloria Best MD Unavailable Unavailable Gloria Best MD Unavailable Unavailable Gloria Best MD Unavailable Unavailable Gloria Best MD Unavailable Unavailable Gloria Best MD Unavailable Unavailable Gloria Best MD Unavailable Unavailable Gloria Best MD Unavailable Unavailable Gloria Best MD Unavailable Unavailable Gloria Best MD Unavailable Unavailable Gloria Best MD Unavailable Unavailable Gloria Best MD Unavailable Unavailable Gloria Best MD Unavailable Unavailable Gloria Best MD Unavailable Unavailable Gloria Best MD Unavailable Unavailable Gloria Best MD Unavailable Unavailable Gloria Best MD Unavailable Unavailable Gloria Best MD Unavailable Unavailable Gloria Best MD Unavailable Unavailable Gloria Best MD Unavailable Unavailable Gloria Best MD Unavailable Unavailable Gloria Best MD Unavailable Unavailable Gloria Best MD Unavailable Unavailable Gloria Best MD Unavailable Unavailable Gloria Best MD Unavailable Unavailable Gloria Best MD Unavailable Unavailable Gloria Best MD Unavailable Unavailable Gloria Best MD Unavailable Unavailable Gloria Best MD Unavailable Unavailable Gloria Best MD Unavailable Unavailable Gloria Best MD Unavailable Unavailable Gloria Best MD Unavailable Unavailable Gloria Best MD Unavailable Unavailable Gloria Best MD Unavailable Unavailable Gloria Best MD Unavailable Unavailable Gloria Best MD Unavailable Unavailable Bong Crocker MD Unavailable Unavailable Bong Crocker MD Unavailable Unavailable Cheng CHURCH MD Unavailable Unavailable Cheng CHURCH MD Unavailable Unavailable Cheng CHURCH MD Unavailable Unavailable MECheng FRYE MD Unavailable Unavailable MECheng FRYE MD Unavailable Unavailable MECheng FRYE MD Unavailable Unavailable MEJICheng ROLAND MD Unavailable Unavailable MEJICheng ROLAND MD Unavailable Unavailable MEJICheng ROLAND MD Unavailable Unavailable MEJICOCheng MD Unavailable Unavailable MEJICheng ROLAND MD Unavailable Unavailable MEJICheng ROLAND MD Unavailable Unavailable MECheng FRYE MD Unavailable Unavailable MEJICheng ROLAND MD Unavailable Unavailable MEJICheng ROLAND MD Unavailable Unavailable MEJICheng ROLAND MD Unavailable Unavailable MECheng FRYE MD Unavailable Unavailable MEJICheng ROLAND MD Unavailable Unavailable MECheng FRYE MD Unavailable Unavailable MECheng FRYE MD Unavailable Unavailable MECheng FRYE MD Unavailable Unavailable MECheng FRYE MD Unavailable Unavailable MECheng FRYE MD Unavailable Unavailable MECheng FRYE MD Unavailable Unavailable MECheng FRYE MD Unavailable Unavailable MECheng FRYE MD Unavailable Unavailable MECheng FRYE MD Unavailable Unavailable MECheng FRYE MD Unavailable Unavailable MECheng FRYE MD Unavailable Unavailable MECheng FRYE MD Unavailable Unavailable MECheng FRYE MD Unavailable Unavailable MECheng FRYE MD Unavailable Unavailable MECheng FRYE MD Unavailable Unavailable MECheng FRYE MD Unavailable Unavailable MECheng FRYE MD Unavailable Unavailable MECheng FRYE MD Unavailable Unavailable MECheng FRYE MD Unavailable Unavailable MECheng FRYE MD Unavailable Unavailable MECheng FRYE MD Unavailable Unavailable MECheng FRYE MD Unavailable Unavailable MECheng FRYE MD Unavailable Unavailable MECheng FRYE MD Unavailable Unavailable MECheng FRYE MD Unavailable Unavailable Cheng CHURCH MD Unavailable Unavailable MECheng FRYE MD Unavailable Unavailable MECheng FRYE MD Unavailable Unavailable MECheng FRYE MD Unavailable Unavailable MECheng FRYE MD Unavailable Unavailable MECheng FRYE MD Unavailable Unavailable MECheng FRYE MD Unavailable Unavailable MECheng FRYE MD Unavailable Unavailable MECheng FRYE MD Unavailable Unavailable MEJICO, NAGA MD Unavailable Unavailable MEJICO, NAGA MD Unavailable Unavailable MEJICO, NAGA MD Unavailable Unavailable MEJICO, NAGA MD Unavailable Unavailable MEJICO, NAGA MD Unavailable Unavailable MEJICO, NAGA MD Unavailable Unavailable MEJICO, NAGA MD Unavailable Unavailable MEJICO, NAGA MD Unavailable Unavailable MEJICO, NAGA MD Unavailable Unavailable MEJICO, NAGA MD Unavailable Unavailable MEJICO, NAGA MD Unavailable Unavailable MEJICO, NAGA MD Unavailable Unavailable MEJICO, NAGA MD Unavailable Unavailable MEJICO, NAGA MD Unavailable Unavailable Cheng Luong MD Unavailable Unavailable Re-disclosure Warning The records that you are about to access may contain information from federally-assisted alcohol or drug abuse programs. If such information is present, then the following federally mandated warning applies: This information has been disclosed to you from records protected by federal confidentiality rules (42 CFR part 2). The federal rules prohibit you from making any further disclosure of this information unless further disclosure is expressly permitted by the written consent of the person to whom it pertains or as otherwise permitted by 42 CFR part 2. A general authorization for the release of medical or other information is NOT sufficient for this purpose. The Federal rules restrict any use of the information to criminally investigate or prosecute any alcohol or drug abuse patient.The records that you are about to access may contain highly sensitive health information, the redisclosure of which is protected by Article 27-F of the [facility] Public Health law. If you continue you may have access to information: Regarding HIV / AIDS; Provided by facilities licensed or operated by the [facility] Office of Mental Health; or Provided by the [facility] Office for People With Developmental Disabilities. If such information is present, then the following [facility] mandated warning applies: This information has been disclosed to you from confidential records which are protected by state law. State law prohibits you from making any further disclosure of this information without the specific written consent of the person to whom it pertains, or as otherwise permitted by law. Any unauthorized further disclosure in violation of state law may result in a fine or halfway sentence or both. A general authorization for the release of medical or other information is NOT sufficient authorization for further disc losure. Allergies and Adverse Reactions Type Description Substance Reaction Status Data Source(s ) Propensity to adverse reactions TOPIRAMATE topiramate Acti ve [facility] Propensity to adverse reactions ACETAZOLAMIDE ER Acetazolamide Er Active [facility] Drug allergy ACETAZOLAMIDE ER ACETAZOLAMIDE ER [facility] plastic Tape plastic Tape plastic Tape Rash Active eCW1 ([facility]) plastic Tape plastic Tape plastic Tape Rash Active eCW1 ([facility]) Adhesive Adhesive Adhesive Unknown Active eCW1 ([facility]) Drug allergy Drug allergy adhesive tape Hives- CAN use paper tape [facility] plastic Tape plastic Tape plastic Tape Rash Active eCW1 ([facility]) Propensity to adverse reactions plastic Tape Propensity to ad verse reactions Rash Active eCW1 ([facility]) Propensity to adverse reactions plastic Tape Propensity to ad verse reactions Rash Active eCW1 ([facility]) Propensity to adverse reactions plastic Tape Propensity to ad verse reactions Rash Active eCW1 ([facility]) Propensity to adverse reactions plastic Tape Propensity to ad verse reactions Rash Active eCW1 ([facility]) Propensity to adverse reactions plastic Tape Propensity to ad verse reactions Rash Active eCW1 ([facility]) Propensity to adverse reactions plastic Tape Propensity to ad verse reactions Rash Active eCW1 ([facility]) Propensity to adverse reactions plastic Tape Propensity to ad verse reactions Rash Active eCW1 ([facility]) Propensity to adverse reactions plastic Tape Propensity to ad verse reactions Rash Active eCW1 ([facility]) Propensity to adverse reactions plastic Tape Propensity to ad verse reactions Rash Active eCW1 ([facility]) Propensity to adverse reactions plastic Tape Propensity to ad verse reactions Rash Active eCW1 ([facility]) Propensity to adverse reactions plastic Tape Propensity to ad verse reactions Rash Active eCW1 ([facility]) Propensity to adverse reactions plastic Tape Propensity to ad verse reactions Rash Active eCW1 ([facility]) Propensity to adverse reactions plastic Tape Propensity to ad verse reactions Rash Active eCW1 ([facility]) Propensity to adverse reactions plastic Tape Propensity to ad verse reactions Rash Active eCW1 ([facility]) Propensity to adverse reactions plastic Tape Propensity to ad verse reactions Rash Active eCW1 ([facility]) Propensity to adverse reactions plastic Tape Propensity to ad verse reactions Rash Active eCW1 ([facility]) Propensity to adverse reactions plastic Tape Propensity to ad verse reactions Rash Active eCW1 ([facility]) Propensity to adverse reactions plastic Tape Propensity to ad verse reactions Rash Active eCW1 ([facility]) Propensity to adverse reactions plastic Tape Propensity to ad verse reactions Rash Active eCW1 ([facility]) Propensity to adverse reactions plastic Tape Propensity to ad verse reactions Rash Active eCW1 ([facility]) Propensity to adverse reactions plastic Tape Propensity to ad verse reactions Rash Active eCW1 ([facility]) Propensity to adverse reactions plastic Tape Propensity to ad verse reactions Rash Active eCW1 ([facility]) Propensity to adverse reactions plastic Tape Propensity to ad verse reactions Rash Active eCW1 ([facility]) Propensity to adverse reactions plastic Tape Propensity to ad verse reactions Rash Active eCW1 ([facility]) Propensity to adverse reactions plastic Tape Propensity to ad verse reactions Rash Active eCW1 ([facility]) Propensity to adverse reactions plastic Tape Propensity to ad verse reactions Rash Active eCW1 ([facility]) Propensity to adverse reactions plastic Tape Propensity to ad verse reactions Rash Active eCW1 ([facility]) Propensity to adverse reactions plastic Tape Propensity to ad verse reactions Rash Active eCW1 ([facility]) plastic Tape plastic Tape plastic Tape Rash Active eCW1 ([facility]) Encounters Encounter Providers Location Date Indications Data Source(s ) Outpatient Referrer: ANUM RANDOLPH 06/22/2020 12:00:[address] [facility] Unknown [address] [facility] [facility] [address] 06/16/2020 12:00:00 AM EST eCW1 ([facility]) [place] [address] [facility] [facility] [address] 06/16/2020 12:00:00 AM EST [facility]CW1 [facility]patient [address] [facility] [address] 06/10/2020 12:00:00 AM EST [facility] Outpatient Attender: FCO BLACK-SJPWatsonLOIS 12:00:00 AM EST - 06/09/2020 12:25:[address] [facility] Outpatient Referrer: ANUM RANDOLPH 06/03/2020 12:00:[address] [facility] Unknown [address] [facility] [address] 05/29/2020 12:00:00 AM EST eCW1 ([facility]) Unknown [address] [facility] [address] 05/26/2020 12:00:00 AM EST [facility]CW1 [facility] Outpatient Attender: ANUM RANDOLPHReferrer: ANUM RANDOLPH [id number] 05/22/2020 12:00:00 AM EST - 05/22/2020 04:00:54 PM [facility] Outpatient Attender: NALLELY Taylor/Ashwini/Martin/Reindl 05/18/2020 08:30:00 AM EST [facility] ([facility]) [place] [address] [facility] [facility] [address] 05/18/2020 12:00:00 AM EST eCW1 [facility] [place] [address] [facility] [address] 05/14/2020 12:00:00 AM EST eCW1 [facility] [place] [address] [facility] [address] 05/11/2020 12:00:00 AM EST [facility]CW1 [facility]) Outpatient Attender: Matias Taylor/Ashwini/Martin/Ramirez ndl 05/01/2020 12:23:00 AM EST [facility] ([facility]) [place] [address] [facility] [address] 04/28/2020 12:00:00 AM EST eCW1 [facility] [place] [address] [facility] [address] 04/27/2020 12:00:00 AM EST [facility]CW1 [facility] Outpatient Attender: NALLELY JULIO DO Aron/Denver/Martin/Reindl 04/22/2020 01:00:00 PM EST [facility] ([facility]) Outpatient [address] [facility] [address] 04/20/2020 12:00:00 AM EST eCW1 [facility]) Outpatient Attender: NALLELY JULIO DO Aron/[place]/Martin/Reindl 04/14/2020 10:30:00 AM EST [facility] ([facility]) Outpatient Attender: KATHRIN CHURCH MDReferrer: ANUM RANDOLPH 04/13/2020 12:00:[address] [facility] Outpatient 04/13/2020 12:00:[address] [facility] Outpatient Referrer: ANUM RANDOLPH 04/13/2020 12:00:[address] [facility] [place] [address] [facility] [address] 04/10/2020 12:00:00 AM EDT eCW1 ([facility]) Outpatient Attender: ANUM RANDOLPH 04/10/2020 12:00:00 AM [facility] Unknown [address] [facility] [facility] [address] 04/08/2020 12:00:00 AM EDT eCW1 ([facility] [place] [address] [facility] [address] 04/07/2020 12:00:00 AM EDT eCW1 ([facility]) Outpatient Attender: NALLELY JULIO DO Aron/[place]/Martin/Reindl 04/06/2020 03:00:00 PM EDT [facility] ([facility]) Outpatient Referrer: Gloria Best MD SJMaurice.LOIS-SJP.LOIS 03/12 12:00:00 AM EDT [facility] Outpatient [address] [facility] [facility] [address] 03/30/2020 12:00:00 AM EDT eCW1 ([facility]) Unknown [address] [facility] [address] 03/25/2020 12:00:00 AM EDT eCW1 ([facility]) Unknown [address] [facility] [address] 03/24/2020 12:00:00 AM EDT eCW1 ([facility]) Unknown [address] [facility] [address] 03/24/2020 12:00:00 AM EDT eCW1 ([facility]) Outpatient Referrer: Gloria Best MD SJMaurice.LOIS-SJP.LOIS 03/12 12:00:00 AM EDT - 03/23/2020 09:13:12 AM EDT [facility] Outpatient Attender: Gloria Best MD ED-LABPNP 12/2019 02:35:00 PM EDT - 03/18/2020 02:36:00 PM EDT [id number] [id number] [id number] I10 [id number] Patient discharged. Outpatient Attender: SHAVON CERVANTES [id number] 7Admitter: SHAVON CERVANTES [id number]: ANUM SchwarzA-01W 03/17/2020 12:00:00 AM EDT - 03/17/2020 01:38:00 PM EDT Other abnormal findings in cerebrospinal fluid [facility] Other abnormal findings in cerebrospinal fluid Patient discharged. Unknown [address] [facility] [address] 03/16/2020 12:00:00 AM EDT eCW1 ([facility]) Outpatient Attender: DEFAULT / GENE PAKO / UNKNOWN PROVIDER ALIASES Referrer: ANUM SchwarzA-COVID3 03/13/2020 12:00:00 AM EDT - 03/14/2020 12:00:00 AM EDT [facility] Outpatient Attender: SHADI KHADIJAH 07A-[id number] 03/11/2020 04:42:38 PM ED T [facility] Outpatient Attender: Gloria Best MD SJMaurice.LOIS-SJP.LOIS 02/11 12:00:00 AM EDT - 03/09/2020 12:19:12 PM EDT [facility] Outpatient Attender: Gloria DOSS.LOIS-SJP.LOIS 01/12 12:00:00 AM EDT - 02/10/2020 09:33:09 AM EDT [facility] Outpatient Attender: KATHRIN CHURCH MD [id number] 020 12:00:00 AM EDT - 02/07/2020 12:21:13 PM EDT Benign intracranial hypertension [facility] Benign intracranial hypertension Outpatient Attender: ANUM RANDOLPH [id number] 02/07/20 20 12:00:00 AM EDT - 02/07/2020 09:27:13 AM EDT Neuralgia and neuritis, unspecified [facility] Neuralgia and neuritis, unspecified Outpatient Attender: HANS RIVERO 02/07/2020 12:00:00 AM EDT [facility] Preadmit Attender: Lilia Hernandez MD CPSCAORT-PRSCNPT 01/24/2020 12 :00:00 AM EDT LEG WEAKNESS [facility] LEG WEAKNESS Outpatient Attender: Irving Sharp/Ashwini/Martin/R eindl 01/16/2020 01:23:00 AM EDT MEDENT ([facility]) Outpatient Attender: [id number] LILIA PENNINGTON MD 07A-NEURT5 01/03/2020 12:00:00 AM EDT - 01/03/2020 04:06:54 PM EDT Benign intracranial hypertension [facility] Benign intracranial hypertension Outpatient Attender: NALLELY Taylor/Ashwini/Martin/Reindl 12/31/2019 02:45:00 PM EDT MEDENT ([facility]) Outpatient [facility] [facility] [address] 12/31/2019 12:00:00 AM EDT eCW1 ([facility]) Unknown [address] [facility] [address] 12/25/2019 12:00:00 AM EDT eCW1 ([facility]) Unknown [address] [facility] [address] 12/24/2019 12:00:00 AM EDT eCW1 ([facility]) Unknown [address] [facility] [address] 12/19/2019 12:00:00 AM EDT eCW1 ([facility]) Unknown [address] [facility] [address] 11/26/2019 12:00:00 AM EDT eCW1 ([facility]) Unknown [address] [facility] [address] 11/25/2019 12:00:00 AM EDT eCW1 ([facility]) Outpatient [address] [facility] [address] 11/25/2019 12:00:00 AM EDT eCW1 ([facility]) Unknown [address] [facility] [address] 11/25/2019 12:00:00 AM EDT eCW1 ([facility]) [facility] GME Resident [address] [place] [address] 11/19/2019 12:00:00 AM EDT eCW1 ([facility]) Outpatient [address] [facility] [address] 11/15/2019 12:00:00 AM EDT eCW1 ([facility]) [facility] [place] [address] [facility] [address] 11/08/2019 12:00:00 AM EDT eCW1 ([facility]) Outpatient CPSCAORT-LABEJN 11/01/2019 02:32:00 PM EDT [facility] Outpatient Attender: JENNY CASTILLO MD ED-LABPNP 12:31:00 PM EDT - 11/01/2019 12:32:00 PM EDT R740 [facility] R[address] [facility] [address] [place] [address] 10/28/2019 12:00:00 AM EDT eCW1 ([facility]) Outpatient Attender: NALLELY Taylor/Ashwini/Martin/Reindl 10/07/2019 03:00:00 PM EDT MEDENT ([facility]) Outpatient Attender: JOHNNA Pizarro tter: JOHNNA GILReferrer: JOHNNA GIL 10/07/2019 12:00:00 AM EDT - 10/08/2019 12:00:00 AM EDT Inflammatory polyneuropathy, unspecified [facility] Inflammatory polyneuropathy, unspecified Preadmit Attender: MATEO Rodríguez MD [facility] 12:00:00 AM EDT - 09/03/2019 03:24:00 PM EDT [facility] Discharge cancelled. Disregard status an d discharged date. 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 Emergency Attender: TELEGRAPH REPEATER MECHANIC Magdalena Turner FNPAttender: MAGDALENA TURNER NPAttender: Rossana Garnett MDAttender: Rossana Garnett MD [facility] 09/11/2019 04:20:00 PM EDT - 09/11/2019 07:18:00 PM EDT COUGH,SHORTNESS OF BREATH [facility] COUGH,SHORTNESS OF BREATH Patient discharged. Outpatient Attender: NALLELY Taylor/Ashwini/Martin/Reindl 09/03/2019 02:30:00 PM EDT MEDENT ([facility]) [facility] [place] [address] [facility] [address] 08/26/2019 12:00:00 AM EDT eCW1 ([facility]) Emergency Attender: Dagoberto Torres DOAttender: Jaime PEÑA CPSCAORT-ED 08/23/2019 10:45:00 AM EDT - 08/23/2019 02:08:00 PM EDT SHORTNESS OF BREATH, HIGH BLOOD PRESSURE [facility] SHORTNESS OF BREATH, HIGH BLOOD PRESSURE Patient discharged. Outpatient Attender: Reyes Argueta MD CPSCAORT-CPSOMP 10:18:00 AM EDT - 08/23/2019 10:19:[address] [facility] Patient discharged. R Attender: MATEO Rodríguez MD CPSCAORT-PRSLAPT 020 08:49:00 AM EST - 09/10/2019 12:01:00 AM EDT Chronic inflammatory demyelinating polyneuropathy [facility] Chronic inflammatory demyelinating polyn europathy Patient discharged. Outpatient Attender: MATEO Rodríguez MD CPSCAORT-CPSLAPCP 2019 07:40:00 AM EST - 08/12/2019 07:41:00 AM [facility] Patient discharged. Outpatient Attender: Lorraine Loyd MD CPSCAORT-[id number] 07/19 09:14:00 AM EST - 07/19/2019 09:15:00 AM [facility] Patient discharged. Outpatient Attender: MATEO Rodríguez MD CPSCAORT-CPSLAPCP 2019 07:51:00 AM EST - 07/19/2019 07:52:00 AM [facility] Patient discharged. [facility] [address] [place] [address] 07/10/2019 12:00:00 AM EST eCW1 ([facility]) Inpatient Attender: Kevin Mcdonald danette: Milla Clement MDAttender: Milla Clement MDAdmitter: Milla Clement MDConsultant: Kimberley Wright NPConsultant: KIMBERLEY WRIGHTConsultant: Noe Xiong RNPConsultant: NOE XIONG CONTRACT RECRUITER CPSCAORT-MSU2 07/05/2019 09:07:00 PM EST - 07/08/2019 01:43:00 PM ES T RESPIRATORY FAILURE WITH HYPOXIA, CHEST PAIN [facility] RESPIRATORY FAILURE WITH HYPOXIA, CHEST PAIN Patient discharged. Outpatient Attender: Lorraine Loyd MD CPSCAORT-SDCSDC 020 07:39:00 AM EST - 07/04/2019 01:44:00 PM EST MYOPATHY [facility] MYOPATHY Patient discharged. R Attender: Nila LEE CPSCAORT-PRSLAS T 06/24/2019 01:51:00 PM EST - 07/12/2019 12:01:00 AM EST ASPIRATION [facility] ASPIRATION Patient discharged. R Attender: MATEO Rodríguez MD CPSCAORT-PRSLAPT 020 09:22:00 AM EST - 07/12/2019 12:01:00 AM EST Chronic inflammatory demyelinating polyneuropathy [facility] Chronic inflammatory demyelinating polyn europathy Patient discharged. Outpatient Attender: Lorraine Loyd MD ED-LABPNP 020 03:54:00 PM EST - 06/20/2019 03:55:00 PM EST [address] [facility] G729 Patient discharged. Outpatient Attender: Lorraine Loyd MD CPSCAORT-[id number] 06/19 12:31:00 PM EST - 06/19/2019 12:32:00 PM EST [facility] Patient discharged. Outpatient Attender: Nila Conrad [facility] CPSCAORT-CPSLAP UL 06/18/2019 08:54:00 AM EST - 06/18/2019 08:55:00 AM EST [facility] Patient discharged. Outpatient Attender: [facility]lia Conrad [facility] CPSCAORT-CPSLAP 06/13/2019 08:43:00 AM EST - 06/13/2019 08:44:00 AM EST [facility] Patient discharged. R Attender: MATEO Rodríguez MD CPSCAORT-PRSLAPT 019 07:27:00 AM EST - 06/11/2019 12:01:00 AM EST Chronic inflammatory demyelinating polyneuropathy [facility] Chronic inflammatory demyelinating polyn europathy Patient discharged. [facility] [address] [facility] [address] 05/30/2019 12:00:00 AM EST eCW1 ([facility]) Outpatient Attender: Reyes Argueta MD [facility] 10:10:00 AM EST - 05/28/2019 10:11:00 AM [facility] [address] [facility] [address] 05/21/2019 12:00:00 AM EST eCW1 ([facility]) [facility] [address] [facility] [address] 05/20/2019 12:00:00 AM EST eCW1 ([facility]) Outpatient Attender: MATEO Rodríguez MD [facility] 2018 10:20:00 AM EST - 05/17/2019 10:21:00 AM EST [facility] Patient discharged. Outpatient Attender: Eunice Diaz [facility] 05/15 01:39:00 PM EST - 05/15/2019 01:40:00 PM EST [facility] Patient discharged. Inpatient Attender: Kevin Crocker MDAttrenita danette: Kike Norton MDAttender: Kike Norton MDAdmitter: Kike Norton MDConsultant: JOSE ANTONIO SPENCER PAConsultant: Jose Antonio Spencer-Margaret [place] CPSCAORT-MSU3 05/07/2019 08:35:00 PM EST - 05/12/2019 05:00:00 PM EST BOOP,ACUTE RESPIRATORY FAILURE [facility] BOOP,ACUTE RESPIRATORY FAILURE Patient discharged. R Attender: MATEO Rodríguez MD CPSCAORT-PRSLAPT 019 09:13:00 AM EST - 05/11/2019 12:01:00 AM EST Chronic inflammatory demyelinating polyneuropathy [facility] Chronic inflammatory demyelinating polyn europathy Patient discharged. Outpatient Attender: Reyes Argueta MD CPSCAORT-CPSOMP 07:17:00 AM EST - 05/01/2019 07:18:00 AM EST [facility] [address] [facility] [address] 04/30/2019 12:00:00 AM EST eCW1 ([facility]) [facility] [address] [facility] [address] 04/30/2019 12:00:00 AM EST eCW1 ([facility]) Outpatient Attender: MATEO Rodríguez MD [facility]CPS[facility]APCP 2018 10:42:00 AM EST - 04/23/2019 10:43:00 AM EST [facility] Patient discharged. Emergency Attender: Shaheen Barreto moises: Andrew Brown DOAttender: Andrew Brown DO [facility]- 04/21/2019 03:39:00 PM EST - 04/21/2019 07:43:00 PM EST POSSIBLE KIDNEY STONE [facility] POSSIBLE KIDNEY STONE Patient discharged. Inpatient Attender: Jorden Beltran MDAttender: Jorden Beltran MDAttender: Nila Luong MDAttender: Nila Luong MDAdmitter: Jorden Urbina MDConsultant: Srdihar Zimmerman MDConsultant: Eunice Diaz MDConsultant: Eunice Diaz MDConsultant: Milla Clement MDConsultant: Milla Clement MD CPSCAORT-MSU2 03/06/2019 11:40:00 AM EDT - 04/03/2019 02:27:00 PM ED T HYPOXIA, RESPIRATORY DISTRESS [facility] HYPOXIA, RESPIRATORY DISTRESS Patient discharged. R Attender: Lisbet Gunter NP CPSCAORT-PRSCNPT 019 01:48:00 PM EDT - 03/11/2019 12:01:00 AM EDT LE WEAKNESS, LEFT SIDE [facility] LE WEAKNESS, LEFT SIDE Patient discharged. R Attender: Lisbet Gunter NP CPSCAORT-PRSCNPT 019 01:23:00 PM EDT - 02/09/2019 12:01:00 AM EDT LE WEAKNESS, LEFT SIDE [facility] LE WEAKNESS, LEFT SIDE Patient discharged. R Attender: Lisbet Gunter CONTRACT RECRUITER CPSCAORT-PRSCNPT 019 01:17:00 PM EDT - 01/09/2019 12:01:00 AM EDT LE WEAKNESS, LEFT SIDE [facility] LE WEAKNESS, LEFT SIDE Patient discharged. Immunizations Vaccine Date Status Description Data Source(s) influenza, recombinant, quadrIvalent,injectable, prese rvative free 03/30/2020 10:37:00 AM EDT completed eCW1 ([facility]) influenza, recombinant, quadrIvalent,injectable, prese rvative free 03/30/2020 10:37:00 AM EDT completed eCW1 ([facility]) influenza, recombinant, quadrIvalent,injectable, prese rvative free 03/30/2020 10:37:00 AM EDT completed eCW1 ([facility]) influenza, recombinant, quadrIvalent,injectable, prese rvative free 03/30/2020 10:37:00 AM EDT completed eCW1 ([facility]) influenza, recombinant, quadrIvalent,injectable, prese rvative free 03/30/2020 10:37:00 AM EDT completed eCW1 ([facility]) influenza, recombinant, quadrIvalent,injectable, prese rvative free 03/30/2020 10:37:00 AM EDT completed eCW1 ([facility]) influenza, recombinant, quadrIvalent,injectable, prese rvative free 03/30/2020 10:37:00 AM EDT completed eCW1 ([facility]) influenza, recombinant, quadrIvalent,injectable, prese rvative free 03/30/2020 10:37:00 AM EDT completed eCW1 ([facility]) influenza, recombinant, quadrIvalent,injectable, prese rvative free 03/30/2020 10:37:00 AM EDT completed eCW1 ([facility]) influenza, recombinant, quadrIvalent,injectable, prese rvative free 03/30/2020 10:37:00 AM EDT completed eCW1 ([facility]) influenza, recombinant, quadrIvalent,injectable, prese rvative free 03/30/2020 10:37:00 AM EDT completed eCW1 ([facility]) influenza, recombinant, quadrIvalent,injectable, prese rvative free 03/30/2020 10:37:00 AM EDT completed eCW1 ([facility]) influenza, recombinant, quadrIvalent,injectable, prese rvative free 03/30/2020 10:37:00 AM EDT completed eCW1 ([facility]) influenza, recombinant, quadrIvalent,injectable, prese rvative free 03/30/2020 10:37:00 AM EDT completed eCW1 ([facility]) influenza, recombinant, quadrIvalent,injectable, prese rvative free 03/30/2020 10:37:00 AM EDT completed eCW1 ([facility]) influenza, recombinant, quadrIvalent,injectable, prese rvative free 03/30/2020 10:37:00 AM EDT completed eCW1 ([facility]) New in 2011. IIV4 04/30/2019 02:52:00 PM EST completed eCW1 ([facility]) New in 2011. IIV4 04/30/2019 02:52:00 PM EST completed eCW1 ([facility]) New in 2011. IIV4 04/30/2019 02:52:00 PM EST completed eCW1 ([facility]) New in 2011. IIV4 04/30/2019 02:52:00 PM EST completed eCW1 ([facility]) New in 2011. IIV4 04/30/2019 02:52:00 PM EST completed eCW1 ([facility]) New in 2011. IIV4 04/30/2019 02:52:00 PM EST completed eCW1 ([facility]) New in 2011. IIV4 04/30/2019 02:52:00 PM EST completed eCW1 ([facility]) New in 2011. IIV4 04/30/2019 02:52:00 PM EST completed eCW1 ([facility]) New in 2011. IIV4 04/30/2019 02:52:00 PM EST completed eCW1 ([facility]) New in 2011. IIV4 04/30/2019 02:52:00 PM EST completed eCW1 ([facility]) New in 2011. IIV4 04/30/2019 02:52:00 PM EST completed eCW1 ([facility]) New in 2011. IIV4 04/30/2019 02:52:00 PM EST completed eCW1 ([facility]) New in 2011. IIV4 04/30/2019 02:52:00 PM EST completed eCW1 ([facility]) New in 2011. IIV4 04/30/2019 02:52:00 PM EST completed eCW1 ([facility]) New in 2011. IIV4 04/30/2019 02:52:00 PM EST completed eCW1 ([facility]) New in 2011. IIV4 04/30/2019 02:52:00 PM EST completed eCW1 ([facility]) New in 2011. II4 04/30/2019 02:52:00 PM EST completed eCW1 ([facility]) New in 2011. II4 04/30/2019 02:52:00 PM EST completed eCW1 ([facility]) New in 2011. IIV4 04/30/2019 02:52:00 PM EST completed eCW1 ([facility]) New in 2011. IIV4 04/30/2019 02:52:00 PM EST completed eCW1 ([facility]) New in 2011. IIV4 04/30/2019 02:52:00 PM EST completed eCW1 ([facility]) New in 2011. IIV4 04/30/2019 02:52:00 PM EST completed eCW1 ([facility]) New in 2011. IIV4 04/30/2019 02:52:00 PM EST completed eCW1 ([facility]) New in 2011. IIV4 04/30/2019 02:52:00 PM EST completed eCW1 ([facility]) Medications Medication Brand Name Start Date Product Form Dose Route Admi nistrative Instructions Pharmacy Instructions Status Indications Reaction Description Data Source(s) Methylphenidate Hydrochloride 5 MG Oral Tablet [Ritali n] Ritalin 5 MG Ritalin 5 MG 06/10/2020 12:00:00 AM EST active Ritalin 5 MG eCW1 ([facility]) Methylphenidate Hydrochloride 5 MG Oral Tablet [Ritali n] Ritalin 5 MG Ritalin 5 MG 06/10/2020 12:00:00 AM EST active Ritalin 5 MG eCW1 ([facility]) Methylphenidate Hydrochloride 5 MG Oral Tablet [Ritali n] Ritalin 5 MG Ritalin 5 MG 06/10/2020 12:00:00 AM EST active Ritalin 5 MG eCW1 ([facility]) valsartan 160 MG Oral Tablet valsartan (DIOVAN) 160 MG tablet valsartan (DIOVAN) 160 MG tablet 06/09/2020 12:00:00 AM EST 160 mg Oral act vero Take 1 tablet (160 mg total) by mouth daily [facility] torsemide 100 MG Oral Tablet torsemide (DEMADEX) 100 M G tablet torsemide (DEMADEX) 100 MG tablet 06/09/2020 12:00:00 AM EST 50 mg Oral active Take 0.5 tablets (50 mg total) by mouth daily [facility] valsartan 160 MG Oral Tablet valsartan (DIOVAN) 160 MG tablet valsartan (DIOVAN) 160 MG tablet 06/08/2020 12:00:00 AM EST abo rted TAKE ONE TABLET BY MOUTH EVERY DAY [facility] Methylphenidate Hydrochloride 5 MG Oral Tablet methylphenidate (RITALIN) 5 MG tablet methylphenidate (RITALIN) 5 MG tablet 05/27/2020 12:00:00 AM EST 1 {tbl} Oral active Take 1 tablet by mouth d nilay [facility] Methylphenidate Hydrochloride 5 MG Oral Tablet [Ritali n] Ritalin 5 MG Ritalin 5 MG 05/27/2020 12:00:00 AM EST 1.0 {tablet_on_an_empty_stomach} active Ritalin 5 MG eCW1 ([facility]) quetiapine 25 MG Oral Tablet [Seroquel] Seroquel 25 MG Seroq uel 25 MG 05/27/2020 12:00:00 AM EST 1.0 {tablet_at_bedtime} active Seroquel 25 MG eCW1 ([facility]) quetiapine 25 MG Oral Tablet [Seroquel] Seroquel 25 MG Seroq uel 25 MG 05/27/2020 12:00:00 AM EST 1.0 {tablet_at_bedtime} active Seroquel 25 MG eCW1 ([facility]) quetiapine 25 MG Oral Tablet QUEtiapine (SEROQUEL) 25 MG tablet QUEtiapine (SEROQUEL) 25 MG tablet 05/27/2020 12:00:00 AM EST 25 mg Oral active Take 25 mg by mouth [facility] Methylphenidate Hydrochloride 5 MG Oral Tablet [Ritali n] Ritalin 5 MG Ritalin 5 MG 05/27/2020 12:00:00 AM EST 1.0 {tablet_on_an_empty_stomach} active Ritalin 5 MG eCW1 ([facility]) Amitriptyline Hydrochloride 25 MG Oral T ablet Amitriptyline HCl 25 MG Oral Tablet (ELAVIL) Amitriptyline HCl 25 MG Oral Tablet (ELAVIL) 0 12:00:00 AM EST active 1 tab po q hs x 1 week then 2 tabs po q hs there after [facility] Methazolamide 25 MG Oral Tablet methazolAMIDE 25 MG Or al Tablet (NEPTAZANE) methazolAMIDE 25 MG Oral Tablet (NEPTAZANE) 05/22/2020 12:00:00 AM EST 25 mg Oral active Take 1 tablet by marlena th Two Times Daily [facility] Furosemide 40 MG Oral Tablet furosemide (LASIX) 40 MG tablet furosemide (LASIX) 40 MG tablet 05/21/2020 12:00:00 AM EST 60 mg Oral abort ed Take 60 mg by mouth daily [facility] topiramate 50 MG Oral Tablet Topiramate 50 MG Topiramate 50 MG 05/18/2020 12:00:00 AM EST 1.0 {tablet} active To piramate 50 MG eCW1 ([facility]) topiramate 50 MG Oral Tablet Topiramate 50 MG Topiramate 50 MG 05/18/2020 12:00:00 AM EST 1.0 {tablet} active To piramate 50 MG eCW1 ([facility]) topiramate 50 MG Oral Tablet Topiramate 50 MG Topiramate 50 MG 05/18/2020 12:00:00 AM EST 1.0 {tablet} active To piramate 50 MG eCW1 ([facility]) topiramate 50 MG Oral Tablet Topiramate 50 MG Topiramate 50 MG 05/18/2020 12:00:00 AM EST 1.0 {tablet} active To piramate 50 MG eCW1 ([facility]) topiramate 50 MG Oral Tablet Topiramate 50 MG Topiramate 50 MG 05/18/2020 12:00:00 AM EST 1.0 {tablet} active To piramate 50 MG eCW1 ([facility]) topiramate 50 MG Oral Tablet Topiramate 50 MG Topiramate 50 MG 05/18/2020 12:00:00 AM EST 1.0 {tablet} active To piramate 50 MG eCW1 ([facility]) topiramate 50 MG Oral Tablet Topiramate 50 MG Topiramate 50 MG 05/18/2020 12:00:00 AM EST 1.0 {tablet} active To piramate 50 MG eCW1 ([facility]) Cyclobenzaprine hydrochloride 5 MG Oral Tablet Cyclobe nzaprine HCl 5 MG Cyclobenzaprine HCl 5 MG 05/17/2020 12:00:00 AM EST 1.0 {tablet_at_bedtime_as_needed} active Cy clobenzaprine HCl 5 MG eCW1 ([facility]) 24 HR metoprolol succinate 100 MG Extend ed Release Oral Tablet Metoprolol Succinate ER 100 MG Metoprolol Succinate ER 100 MG 05/17/2020 12:00:00 AM EST 1.0 {tablet} active Metoprolol Succinat e ER 100 MG eCW1 ([facility]) Cyclobenzaprine hydrochloride 5 MG Oral Tablet Cyclobe nzaprine HCl 5 MG Cyclobenzaprine HCl 5 MG 05/17/2020 12:00:00 AM EST 1.0 {tablet_at_bedtime_as_needed} active Cy clobenzaprine HCl 5 MG eCW1 ([facility]) pregabalin 300 MG Oral Capsule [Lyrica] Lyrica 300 MG Lyrica 300 MG 05/17/2020 12:00:00 AM EST 1.0 {capsule} active L yrica 300 MG eCW1 ([facility]) Baclofen 10 MG Oral Tablet Baclofen 10 MG 05/17/2020 12:00:00 AM ES T 1.0 {tablet_with_food_or_milk} active Baclo fen 10 MG eCW1 ([facility]) Sulfamethoxazole 800 MG / Trimethoprim 1 60 MG Oral Tablet Sulfamethoxazole- Trimethoprim 800-160 MG Sulfamethoxazole-Trimethoprim 800-160 MG 05/17/2020 12:00:00 AM EST 1.0 {tablet} active Sulfamethoxazole-Trimethoprim 800-160 MG eCW1 ([facility]) Cyclobenzaprine hydrochloride 5 MG Oral Tablet Cyclobe nzaprine HCl 5 MG Cyclobenzaprine HCl 5 MG 05/17/2020 12:00:00 AM EST 1.0 {tablet_at_bedtime_as_needed} active Cy clobenzaprine HCl 5 MG eCW1 ([facility]) Sulfamethoxazole 800 MG / Trimethoprim 1 60 MG Oral Tablet Sulfamethoxazole- Trimethoprim 800-160 MG Sulfamethoxazole-Trimethoprim 800-160 MG 05/17/2020 12:00:00 AM EST 1.0 {tablet} active Sulfamethoxazole-Trimethoprim 800-160 MG eCW1 ([facility]) Melatonin 10 MG Melatonin 10 MG 05/17/2020 12:00:00 AM EST active Melatonin 10 MG eCW1 ([facility]) pregabalin 300 MG Oral Capsule [Lyrica] Lyrica 300 MG Lyrica 300 MG 05/17/2020 12:00:00 AM EST 1.0 {capsule} active L yrica 300 MG eCW1 ([facility]) Sulfamethoxazole 800 MG / Trimethoprim 1 60 MG Oral Tablet Sulfamethoxazole- Trimethoprim 800-160 MG Sulfamethoxazole-Trimethoprim 800-160 MG 05/17/2020 12:00:00 AM EST 1.0 {tablet} active Sulfamethoxazole-Trimethoprim 800-160 MG eCW1 ([facility]) ropinirole 1 MG Oral Tablet Ropinirole HCl 1 MG Ropinirole H Cl 1 MG 05/17/2020 12:00:00 AM EST 1.0 {tablet} active Ro pinirole HCl 1 MG eCW1 ([facility]) Cyclobenzaprine hydrochloride 5 MG Oral Tablet Cyclobe nzaprine HCl 5 MG Cyclobenzaprine HCl 5 MG 05/17/2020 12:00:00 AM EST 1.0 {tablet_at_bedtime_as_needed} active Cy clobenzaprine HCl 5 MG eCW1 ([facility]) Potassium Chloride Izzy ER 10 MEQ Potassium Chloride Izzy ER 10 MEQ 05/17/2020 12:00:00 AM EST active Potassiu m Chloride Izzy ER 10 MEQ eCW1 ([facility]) Melatonin 10 MG Melatonin 10 MG 05/17/2020 12:00:00 AM EST active Melatonin 10 MG eCW1 ([facility]) 24 HR metoprolol succinate 100 MG Extend ed Release Oral Tablet Metoprolol Succinate ER 100 MG Metoprolol Succinate ER 100 MG 05/17/2020 12:00:00 AM EST 1.0 {tablet} active Metoprolol Succinat e ER 100 MG eCW1 ([facility]) 24 HR metoprolol succinate 100 MG Extend ed Release Oral Tablet Metoprolol Succinate ER 100 MG Metoprolol Succinate ER 100 MG 05/17/2020 12:00:00 AM EST 1.0 {tablet} active Metoprolol Succinat e ER 100 MG eCW1 ([facility]) Melatonin 10 MG Melatonin 10 MG 05/17/2020 12:00:00 AM EST active Melatonin 10 MG eCW1 ([facility]) Potassium Chloride Izzy ER 10 MEQ Potassium Chloride Izzy ER 10 MEQ 05/17/2020 12:00:00 AM EST active Potassiu m Chloride Izzy ER 10 MEQ eCW1 ([facility]) Baclofen 10 MG Oral Tablet Baclofen 10 MG 05/17/2020 12:00:00 AM ES T 1.0 {tablet_with_food_or_milk} active Baclo fen 10 MG eCW1 ([facility]) Sulfamethoxazole 800 MG / Trimethoprim 1 60 MG Oral Tablet Sulfamethoxazole- Trimethoprim 800-160 MG Sulfamethoxazole-Trimethoprim 800-160 MG 05/17/2020 12:00:00 AM EST 1.0 {tablet} active Sulfamethoxazole-Trimethoprim 800-160 MG eCW1 ([facility]) Baclofen 10 MG Oral Tablet Baclofen 10 MG 05/17/2020 12:00:00 AM ES T 1.0 {tablet_with_food_or_milk} active Baclo fen 10 MG eCW1 ([facility]) pantoprazole 40 MG Delayed Release Oral Tablet Pantopr azole Sodium 40 MG Pantoprazole Sodium 40 MG 05/17/2020 12:00:00 AM EST 1.0 {tablet} active Pantoprazole Sodium 40 MG eCW1 ( [facility]) pantoprazole 40 MG Delayed Release Oral Tablet Pantopr azole Sodium 40 MG Pantoprazole Sodium 40 MG 05/17/2020 12:00:00 AM EST 1.0 {tablet} active Pantoprazole Sodium 40 MG eCW1 ( [facility]) pregabalin 300 MG Oral Capsule [Lyrica] Lyrica 300 MG Lyrica 300 MG 05/17/2020 12:00:00 AM EST 1.0 {capsule} active L yrica 300 MG eCW1 ([facility]) Valsartan 160 MG UNK 05/17/2020 12:00:00 AM EST suspended Valsartan 160 MG eCW1 ([facility]) Melatonin 10 MG Melatonin 10 MG 05/17/2020 12:00:00 AM EST active Melatonin 10 MG eCW1 ([facility]) Baclofen 10 MG Oral Tablet Baclofen 10 MG 05/17/2020 12:00:00 AM ES T 1.0 {tablet_with_food_or_milk} active Baclo fen 10 MG eCW1 ([facility]) Potassium Chloride Izzy ER 10 MEQ Potassium Chloride Izzy ER 10 MEQ 05/17/2020 12:00:00 AM EST active Potassiu m Chloride Izzy ER 10 MEQ eCW1 ([facility]) Valsartan 160 MG UNK 05/17/2020 12:00:00 AM EST suspended Valsartan 160 MG eCW1 ([facility]) 24 HR metoprolol succinate 100 MG Extend ed Release Oral Tablet Metoprolol Succinate ER 100 MG Metoprolol Succinate ER 100 MG 05/17/2020 12:00:00 AM EST 1.0 {tablet} active Metoprolol Succinat e ER 100 MG eCW1 ([facility]) pregabalin 300 MG Oral Capsule [Lyrica] Lyrica 300 MG Lyrica 300 MG 05/17/2020 12:00:00 AM EST 1.0 {capsule} active L yrica 300 MG eCW1 ([facility]) Valsartan 160 MG UNK 05/17/2020 12:00:00 AM EST suspended Valsartan 160 MG eCW1 ([facility]) ropinirole 1 MG Oral Tablet Ropinirole HCl 1 MG Ropinirole H Cl 1 MG 05/17/2020 12:00:00 AM EST 1.0 {tablet} active Ro pinirole HCl 1 MG eCW1 ([facility]) 24 HR metoprolol succinate 100 MG Extend ed Release Oral Tablet Metoprolol Succinate ER 100 MG Metoprolol Succinate ER 100 MG 05/17/2020 12:00:00 AM EST 1.0 {tablet} active Metoprolol Succinat e ER 100 MG eCW1 ([facility]) Cyclobenzaprine hydrochloride 5 MG Oral Tablet Cyclobe nzaprine HCl 5 MG Cyclobenzaprine HCl 5 MG 05/17/2020 12:00:00 AM EST 1.0 {tablet_at_bedtime_as_needed} active Cy clobenzaprine HCl 5 MG eCW1 ([facility]) Baclofen 10 MG Oral Tablet Baclofen 10 MG 05/17/2020 12:00:00 AM ES T 1.0 {tablet_with_food_or_milk} active Baclo fen 10 MG eCW1 ([facility]) Baclofen 10 MG Oral Tablet Baclofen 10 MG 05/17/2020 12:00:00 AM ES T 1.0 {tablet_with_food_or_milk} active Baclo fen 10 MG eCW1 ([facility]) ropinirole 1 MG Oral Tablet Ropinirole HCl 1 MG Ropinirole H Cl 1 MG 05/17/2020 12:00:00 AM EST 1.0 {tablet} active Ro pinirole HCl 1 MG eCW1 ([facility]) Potassium Chloride Izzy ER 10 MEQ Potassium Chloride Izzy ER 10 MEQ 05/17/2020 12:00:00 AM EST active Potassiu m Chloride Izzy ER 10 MEQ eCW1 ([facility]) Melatonin 10 MG Melatonin 10 MG 05/17/2020 12:00:00 AM EST active Melatonin 10 MG eCW1 ([facility]) Cyclobenzaprine hydrochloride 5 MG Oral Tablet Cyclobe nzaprine HCl 5 MG Cyclobenzaprine HCl 5 MG 05/17/2020 12:00:00 AM EST 1.0 {tablet_at_bedtime_as_needed} active Cy clobenzaprine HCl 5 MG eCW1 ([facility]) Valsartan 160 MG UNK 05/17/2020 12:00:00 AM EST suspended Valsartan 160 MG eCW1 ([facility]) Melatonin 10 MG Melatonin 10 MG 05/17/2020 12:00:00 AM EST active Melatonin 10 MG eCW1 ([facility]) ropinirole 1 MG Oral Tablet Ropinirole HCl 1 MG Ropinirole H Cl 1 MG 05/17/2020 12:00:00 AM EST 1.0 {tablet} active Ro pinirole HCl 1 MG eCW1 ([facility]) Cyclobenzaprine hydrochloride 5 MG Oral Tablet Cyclobe nzaprine HCl 5 MG Cyclobenzaprine HCl 5 MG 05/17/2020 12:00:00 AM EST 1.0 {tablet_at_bedtime_as_needed} active Cy clobenzaprine HCl 5 MG eCW1 ([facility]) Valsartan 160 MG UNK 05/17/2020 12:00:00 AM EST suspended Valsartan 160 MG eCW1 ([facility]) Potassium Chloride Izzy ER 10 MEQ Potassium Chloride Izzy ER 10 MEQ 05/17/2020 12:00:00 AM EST active Potassiu m Chloride Izzy ER 10 MEQ eCW1 ([facility]) Baclofen 10 MG Oral Tablet Baclofen 10 MG 05/17/2020 12:00:00 AM ES T 1.0 {tablet_with_food_or_milk} active Baclo fen 10 MG eCW1 ([facility]) Melatonin 10 MG Melatonin 10 MG 05/17/2020 12:00:00 AM EST active Melatonin 10 MG eCW1 ([facility]) pregabalin 300 MG Oral Capsule [Lyrica] Lyrica 300 MG Lyrica 300 MG 05/17/2020 12:00:00 AM EST 1.0 {capsule} active L yrica 300 MG eCW1 ([facility]) ropinirole 1 MG Oral Tablet Ropinirole HCl 1 MG Ropinirole H Cl 1 MG 05/17/2020 12:00:00 AM EST 1.0 {tablet} active Ro pinirole HCl 1 MG eCW1 ([facility]) Potassium Chloride Izzy ER 10 MEQ Potassium Chloride Izzy ER 10 MEQ 05/17/2020 12:00:00 AM EST active Potassiu m Chloride Izzy ER 10 MEQ eCW1 ([facility]) pantoprazole 40 MG Delayed Release Oral Tablet Pantopr azole Sodium 40 MG Pantoprazole Sodium 40 MG 05/17/2020 12:00:00 AM EST 1.0 {tablet} active Pantoprazole Sodium 40 MG eCW1 ( [facility]) pantoprazole 40 MG Delayed Release Oral Tablet Pantopr azole Sodium 40 MG Pantoprazole Sodium 40 MG 05/17/2020 12:00:00 AM EST 1.0 {tablet} active Pantoprazole Sodium 40 MG eCW1 ( [facility]) ropinirole 1 MG Oral Tablet Ropinirole HCl 1 MG Ropinirole H Cl 1 MG 05/17/2020 12:00:00 AM EST 1.0 {tablet} active Ro pinirole HCl 1 MG eCW1 ([facility]) Potassium Chloride Izzy ER 10 MEQ Potassium Chloride Izzy ER 10 MEQ 05/17/2020 12:00:00 AM EST active Potassiu m Chloride Izzy ER 10 MEQ eCW1 ([facility]) Sulfamethoxazole 800 MG / Trimethoprim 1 60 MG Oral Tablet Sulfamethoxazole- Trimethoprim 800-160 MG Sulfamethoxazole-Trimethoprim 800-160 MG 05/17/2020 12:00:00 AM EST 1.0 {tablet} active Sulfamethoxazole-Trimethoprim 800-160 MG eCW1 ([facility]) Sulfamethoxazole 800 MG / Trimethoprim 1 60 MG Oral Tablet Sulfamethoxazole- Trimethoprim 800-160 MG Sulfamethoxazole-Trimethoprim 800-160 MG 05/17/2020 12:00:00 AM EST 1.0 {tablet} active Sulfamethoxazole-Trimethoprim 800-160 MG eCW1 ([facility]) ropinirole 1 MG Oral Tablet Ropinirole HCl 1 MG Ropinirole H Cl 1 MG 05/17/2020 12:00:00 AM EST 1.0 {tablet} active Ro pinirole HCl 1 MG eCW1 ([facility]) Valsartan 160 MG UNK 05/17/2020 12:00:00 AM EST suspended Valsartan 160 MG eCW1 ([facility]) Sulfamethoxazole 800 MG / Trimethoprim 1 60 MG Oral Tablet Sulfamethoxazole- Trimethoprim 800-160 MG Sulfamethoxazole-Trimethoprim 800-160 MG 05/17/2020 12:00:00 AM EST 1.0 {tablet} active Sulfamethoxazole-Trimethoprim 800-160 MG eCW1 ([facility]) Sertraline 25 MG Oral Tablet Sertraline HCl 25 MG Sertraline HCl 25 MG 05/17/2020 12:00:00 AM EST 1.0 {tablet} active Sertraline HCl 25 MG eCW1 ([facility]) pantoprazole 40 MG Delayed Release Oral Tablet Pantopr azole Sodium 40 MG Pantoprazole Sodium 40 MG 05/17/2020 12:00:00 AM EST 1.0 {tablet} active Pantoprazole Sodium 40 MG eCW1 ( [facility]) Valsartan 160 MG UNK 05/17/2020 12:00:00 AM EST suspended Valsartan 160 MG eCW1 ([facility]) 24 HR metoprolol succinate 100 MG Extend ed Release Oral Tablet Metoprolol Succinate ER 100 MG Metoprolol Succinate ER 100 MG 05/17/2020 12:00:00 AM EST 1.0 {tablet} active Metoprolol Succinat e ER 100 MG eCW1 ([facility]) pregabalin 300 MG Oral Capsule [Lyrica] Lyrica 300 MG Lyrica 300 MG 05/17/2020 12:00:00 AM EST 1.0 {capsule} active L yrica 300 MG eCW1 ([facility]) Sertraline 25 MG Oral Tablet Sertraline HCl 25 MG Sertraline HCl 25 MG 05/17/2020 12:00:00 AM EST 1.0 {tablet} active Sertraline HCl 25 MG eCW1 ([facility]) 24 HR metoprolol succinate 100 MG Extend ed Release Oral Tablet Metoprolol Succinate ER 100 MG Metoprolol Succinate ER 100 MG 05/17/2020 12:00:00 AM EST 1.0 {tablet} active Metoprolol Succinat e ER 100 MG eCW1 ([facility]) pregabalin 300 MG Oral Capsule [Lyrica] Lyrica 300 MG Lyrica 300 MG 05/17/2020 12:00:00 AM EST 1.0 {capsule} active L yrica 300 MG eCW1 ([facility]) pantoprazole 40 MG Delayed Release Oral Tablet Pantopr azole Sodium 40 MG Pantoprazole Sodium 40 MG 05/17/2020 12:00:00 AM EST 1.0 {tablet} active Pantoprazole Sodium 40 MG eCW1 ( [facility]) pantoprazole 40 MG Delayed Release Oral Tablet Pantopr azole Sodium 40 MG Pantoprazole Sodium 40 MG 05/17/2020 12:00:00 AM EST 1.0 {tablet} active Pantoprazole Sodium 40 MG eCW1 ( [facility]) pregabalin 300 MG Oral Capsule pregabalin (LYRICA) 300 MG capsule pregabalin (LYRICA) 300 MG capsule 05/12/2020 12:00:00 AM EST active TAKE ONE CAPSULE BY MOUTH TWICE A DAY MAXIMUM DAILY DOSE TWO CAPSULES [facility] Ketoconazole 20 MG/ML Medicated Shampoo Ketoconazole 2 % External Shampoo (NIZORAL) Ketoconazole 2 % External Shampoo (NIZORAL) 05/08/2020 12:00:00 AM EST active SHAMPOO WITH A SM ALL AMOUNT EVERY 48 HOURS [facility] Sertraline 25 MG Oral Tablet sertraline (ZOLOFT) 25 MG tablet sertraline (ZOLOFT) 25 MG tablet 05/05/2020 12:00:00 AM EST 25 mg Oral aborted Take 25 mg by mouth daily [facility] topiramate 25 MG Oral Tablet Topiramate 25 MG Oral Tab let (Topamax) Topiramate 25 MG Oral Tablet (Topamax) 04/30/2020 12:00:00 AM EST aborted 1 tab po q PM x 1 week, then 1 tab po BID x 1 week then 1 tab am and 2 tabs q PM x 1 week and then 2 BID [facility] duloxetine 20 MG Delayed Release Oral Capsule Duloxeti ne HCl 20 MG Duloxetine HCl 20 MG 04/20/2020 12:00:00 AM EST active Duloxetine HCl 20 MG eCW1 ([facility]) duloxetine 20 MG Delayed Release Oral Capsule Duloxeti ne HCl 20 MG Duloxetine HCl 20 MG 04/20/2020 12:00:00 AM EST active Duloxetine HCl 20 MG eCW1 ([facility]) duloxetine 20 MG Delayed Release Oral Capsule Duloxeti ne HCl 20 MG Duloxetine HCl 20 MG 04/20/2020 12:00:00 AM EST active Duloxetine HCl 20 MG eCW1 ([facility]) duloxetine 20 MG Delayed Release Oral Capsule Duloxeti ne HCl 20 MG Duloxetine HCl 20 MG 04/20/2020 12:00:00 AM EST active Duloxetine HCl 20 MG eCW1 ([facility]) duloxetine 20 MG Delayed Release Oral Capsule Duloxeti ne HCl 20 MG Duloxetine HCl 20 MG 04/20/2020 12:00:00 AM EST active Duloxetine HCl 20 MG eCW1 ([facility]) duloxetine 20 MG Delayed Release Oral Capsule Duloxeti ne HCl 20 MG Duloxetine HCl 20 MG 04/20/2020 12:00:00 AM EST active Duloxetine HCl 20 MG eCW1 ([facility]) duloxetine 20 MG Delayed Release Oral Capsule Duloxeti ne HCl 20 MG Duloxetine HCl 20 MG 04/20/2020 12:00:00 AM EST active Duloxetine HCl 20 MG eCW1 ([facility]) chlorhexidine gluconate 1.2 MG/ML Mouthw pablo Chlorhexidine Gluconate 0.12 % Mouth/Throat Solution (PERIDEX) Chlorhexidine Gluconate 0.12 % Mouth/Thr oat Solution (PERIDEX) 04/10/2020 12:00:00 AM EDT aborted RINSE WITH 1 CAPFUL THREE TIMES A DAY STARTING 04/11/20 [facility] Acetaminophen 325 MG / Oxycodone Hydroch loride 5 MG Oral Tablet oxyCODONE- acetaminophen (PERCOCET) 5-325 MG per tablet oxyCODONE-acetaminophen (PERCOCET) 5-325 MG per tablet 04/10/2020 12:00:00 AM EDT active TAKE ONE TABLET BY MOUTH EVERY 4 TO 6 HOURS NEEDED FOR PAIN MAX 6TABS/DAY [facility] Furosemide 40 MG Oral Tablet Furosemide 04/06/2020 12:00:00 AM EDT ORAL active MEDENT ([facility], ) 12 HR Acetazolamide 500 MG Extended Rele ase Oral Capsule acetaZOLAMIDE ER 500 MG Oral Capsule Extended Release 12 Hour acetaZOLAMIDE ER 500 MG Oral Capsule Extended Release 12 Hour 03/26/2020 12:00:00 AM EDT aborted 1 po q day x 1 week then 1 po BID [facility] 500 mg 03/26/2020 12:00:00 AM EDT capsule, extended relea se 60 TAKE 1 CAPSULE BY MOUTH EVERY DAY FOR 1 WEEK THEN 1 CAPSULE TWICE A DAY THEREAFTER TAKE 1 CAPSULE BY MOUTH EVERY DAY FOR 1 WEEK THEN 1 CAPSULE TWICE A DAY THEREAFTER SOLD: 03/26/2020 [facility] sodium chloride (preservative free) 0.9 % flush 3 mL 03/17/2020 05:00:00 PM EDT 3 mL Intravenous active [Ord er 1 Start] Name: Peripheral IV Signed Summary: Routine, CONTINUOUS, Starting Mon03/17/20 at 1011, Until Mon03/18/20, For 1 day
Upon admission through end of procedure., Pre-op [Order 1 End] [ Order 2 Start] Name: sodium chloride (preservative free) 0.9 % flush 3 mL Signed Summary: 3 mL, Intravenous, Every 8 hours Standard, First dose on Mon03/17/20 at 1700, For 30 days, Pre-op
Saline Lock. Flush Q8H and after each use to Saline Lock.
[Order 2 End] [Order 3 Start] Name: sodium chloride (preservative free) 0.9 % flush 3 mL Signed Summary: 3 mL, Intravenous, PRN, Line Care, Starting Mon03/17/20 at 1010, For 30 days, Pre-op
Saline Lock. Flush Q8H and after each use to Saline Lock.
[Order 3 End] [Order 4 Start] Name: Saline Lock order Signed Summary: Routine, ONCE, Mon03/17/20 at 1011, For 1 occurrence
Pre-op [Order 4 End] [Order 5 Start] Name: NaCl infusion 0.9 % Signed Summary: at 0.2-10 mL/hr, Intravenous, PRN, For Meds, Starting Mon03/17/20 at 1010, For 30 days, Pre-op [Order 5 End] [Order 6 Start] Name: dextrose infusion 5 % Signed Summary: at 0.2-10 mL/hr, Intravenous, PRN, For Meds, Starting Mon03/17/20 at 1010, For 30 days, Pre-op [Order 6 End] [facility] Medication administered onsite Acetaminophen 325 MG Oral Tablet acetaminophen (TYLENO L) tablet 650 mg acetaminophen (TYLENOL) tablet 650 mg 03/17/2020 01:00:00 PM EDT 65 0 mg Oral completed 650 mg, Oral, O nce, Mon03/17/20 at 1300, For 1 dose
Maximum daily dose of acetaminophen is 3,000 mg from all sources in 24 hours.
[facility] Medication administered onsite lidocaine (XYLOCAINE) 1 % injection [id number] 03/17/2020 12:08:22 PM EDT completed Code/Trauma Medicati on, Starting Mon03/17/20 at 1208 [facility] Medication administered onsite Ketoconazole 20 MG/ML Medicated Shampoo ketoconazole ( NIZORAL) 2 % shampoo ketoconazole (NIZORAL) 2 % shampoo 03/03/2020 12:00:00 AM EDT active [facility] Prednisone 20 MG Oral Tablet predniSONE (DELTASONE) 20 MG tablet predniSONE (DELTASONE) 20 MG tablet 02/05/2020 12:00:00 AM EDT 18 mg Oral active Take 18 mg by mouth daily [facility] Fluconazole 150 MG Oral Tablet Fluconazole 150 MG Oral Tablet (DIFLUCAN) Fluconazole 150 MG Oral Tablet (DIFLUCAN) 02/05/2020 12:00:00 AM EDT active TAKE ONE TABLET BY MOUTH WEEKLY DIRECTED [facility] Fluconazole 150 MG Oral Tablet fluconazole (DIFLUCAN) 150 MG tablet fluconazole (DIFLUCAN) 150 MG tablet 02/05/2020 12:00:00 AM EDT active once a week [facility] Baclofen 10 MG Oral Tablet Baclofen 10 MG Oral Tablet (LIORESAL) Baclofen 10 MG Oral Tablet (LIORESAL) 01/27/2020 12:00:00 AM EDT active TAKE ONE TABLET BY MOUTH THREE TIMES A DAY WITH FOOD OR MILK [facility] Hydroxyzine Hydrochloride 25 MG Oral Tab let hydrOXYzine HCl 25 MG Oral Tablet (ATARAX) hydrOXYzine HCl 25 MG Oral Tablet (ATARAX) 01/27/2020 12:00: 00 AM EDT active TAKE ONE TABLET BY MOUTH EVERY SIX HOURS NEEDED [facility] duloxetine 60 MG Delayed Release Oral Ca psule DULoxetine HCl 60 MG Oral Capsule Delayed Release Particles (CYMBALTA) DULoxetine HCl 60 MG Oral Capsule Delaye d Release Particles (CYMBALTA) 01/27/2020 12:00:00 AM EDT 60 mg Oral aborted Take 60 mg by mouth every evenin g [facility] Hydroxyzine Hydrochloride 25 MG Oral Tablet hydrOXYzin e (ATARAX) 25 MG tablet hydrOXYzine (ATARAX) 25 MG tablet 01/27/2020 12:00:00 AM EDT 25 mg Oral active Take 25 mg by mouth [facility] Baclofen 10 MG Oral Tablet baclofen (LIORESAL) 10 MG t ablet baclofen (LIORESAL) 10 MG tablet 01/27/2020 12:00:00 AM EDT 1 {tbl} Oral acti ve Take 1 tablet by mouth 3 (three) times a day [facility] Budesonide 0.25 MG/ML Inhalant Solution Budesonide 0.5 MG/2ML Inhalation Suspension (PULMICORT) Budesonide 0.5 MG/2ML Inhalation Suspension (PULMICORT ) 01/26/2020 12:00:00 AM EDT aborted INHALE ONE VIAL VIA NEBULIZER TWICE A DAY [facility] Amitriptyline Hydrochloride 25 MG Oral T ablet Amitriptyline HCl 25 MG Oral Tablet (ELAVIL) Amitriptyline HCl 25 MG Oral Tablet (ELAVIL) 0 12:00:00 AM EDT 25 mg Oral completed Neuropathic painPrimar y insomnia Take 1 tablet by mouth Twice Daily [facility] Neuropathic pain Primary insomnia ropinirole 1 MG Oral Tablet rOPINIRole HCl 1 MG Oral T ablet (REQUIP) rOPINIRole HCl 1 MG Oral Tablet (REQUIP) 01/03/2020 12:00:00 AM EDT 1 mg Oral active Restless leg syndrome Take 1 tablet by mouth Three times christina ly [facility] Restless leg syndrome Sulfamethoxazole 800 MG / Trimethoprim 1 60 MG Oral Tablet Sulfamethoxazole- Trimethoprim 800-160 MG Oral Tablet (BACTRIM DS) Sulfamethoxazole-Trimethoprim 800-160 MG Oral Tablet (BACTRIM DS) 12/30/2019 12:00:00 AM EDT active TAKE ONE TABLET BY MOUTH 3 TIMES A WEEK [facility] ropinirole 1 MG Oral Tablet rOPINIRole HCl 1 MG Oral T ablet (REQUIP) rOPINIRole HCl 1 MG Oral Tablet (REQUIP) 12/26/2019 12:00:00 AM EDT 1 mg Ora l aborted Take 1 mg by mouth daily [facility] Trazodone Hydrochloride 50 MG Oral Table t traZODone HCl 50 MG Oral Tablet (DESYREL) traZODone HCl 50 MG Oral Tablet (DESYREL) 12/26/2019 12:00:0 0 AM EDT active TAKE 1 1/2 TAB LETS BY MOUTH DAILY AT BEDTIME [facility] Sertraline 50 MG Oral Tablet Sertraline HCl 50 MG Oral Tablet (ZOLOFT) Sertraline HCl 50 MG Oral Tablet (ZOLOFT) 12/26/2019 12:00:00 AM EDT 75 mg Oral active Take 75 mg by mouth daily [facility] Hydrochlorothiazide 25 MG Oral Tablet hy droCHLOROthiazide 25 MG Oral Tablet (HYDRODIURIL) hydroCHLOROthiazide 25 MG Oral Tablet (HYDRODIURIL) 12:00:00 AM EDT 25 mg Oral active Take 25 mg by mouth daily [facility] 24 HR metoprolol succinate 100 MG Extend ed Release Oral Tablet Metoprolol Succinate ER 100 MG Oral Tablet Extended Release 24 Hour (TOPROL-XL) Metoprolol Succinate ER 100 MG Oral Tablet Extended Release 24 Hour (TOPROL-XL) 12/26/2019 12:00:00 AM EDT 100 mg Oral active Take 100 mg by mouth daily [facility] Calcitriol 0.35095 MG Oral Capsule Calcitriol 0.25 MCG Oral Capsule (ROCALTROL) Calcitriol 0.25 MCG Oral Capsule (ROCALTROL) 12/26/2019 12:00:00 AM EDT active TAKE ONE CAPSULE BY MOUTH ON CE A DAY [facility] Baclofen 10 MG Oral Tablet Baclofen 10 MG Oral Tablet (LIORESAL) Baclofen 10 MG Oral Tablet (LIORESAL) 12/26/2019 12:00:00 AM EDT aborted TAKE ONE TABLET BY MOUTH THREE TIMES A DAY WITH FOOD OR MILK [facility] Cyclobenzaprine hydrochloride 5 MG Oral Tablet Cyclobenzaprine HCl 5 MG Oral Tablet (FLEXERIL) Cyclobenzaprine HCl 5 MG Oral Tablet (FLEXERIL) 2019 12:00:00 AM EDT 5 mg Oral active Take 5 m g by mouth nightly as needed [facility] Amitriptyline Hydrochloride 25 MG Oral T ablet Amitriptyline HCl 25 MG Oral Tablet (ELAVIL) Amitriptyline HCl 25 MG Oral Tablet (ELAVIL) 0 12:00:00 AM EDT 25 mg Oral aborted Take 25 mg by mo uth Two Times Daily [facility] Trazodone Hydrochloride 50 MG Oral Tablet traZODone (D ESYREL) 50 MG tablet traZODone (DESYREL) 50 MG tablet 12/26/2019 12:00:00 AM EDT aborted TAKE 1 1/2 TABLETS BY MOUTH DAILY AT BEDTIME [facility] Cyclobenzaprine hydrochloride 5 MG Oral Tablet cyclobenzaprine (FLEXERIL) 5 MG tablet cyclobenzaprine (FLEXERIL) 5 MG tablet 12/26/2019 12:00:00 AM EDT 5 mg Oral active Take 5 mg by mouth a s needed [facility] Nystatin 100 UNT/MG Topical Powder Nysta tin [id number] UNIT/GM External Powder (MYCOSTATIN) Nystatin [id number] UNIT/GM External Powder (MYCOSTATIN) 0 12/03/2019 12:00:00 AM EDT active APPLY TO AFFECTED AREA S TWO TIMES A DAY FOR 10 DAYS [facility] Nystatin 100 UNT/MG Topical Powder nystatin (MYCOSTATI N) powder nystatin (MYCOSTATIN) powder 12/03/2019 12:00:00 AM EDT act vero as needed [facility] Fluocinonide 0.5 MG/ML Topical Cream Fluocinonide 0.05 % External Cream (LIDEX) Fluocinonide 0.05 % External Cream (LIDEX) 11/27/2019 12:00:00 AM EDT active APPLY TO AFFECTED AREA S TWO TI MES A DAY [facility] Fluocinonide 0.5 MG/ML Topical Cream fluocinonide (LID EX) 0.05 % cream fluocinonide (LIDEX) 0.05 % cream 11/27/2019 12:00:00 AM EDT active APPLY TO AFFECTED AREA S TWO TIMES A DAY [facility] Melatonin 10 MG Melatonin 10 MG 11/25/2019 12:00:00 AM EDT active Melatonin 10 MG eCW1 ([facility]) Melatonin 10 MG Melatonin 10 MG 11/25/2019 12:00:00 AM EDT active Melatonin 10 MG eCW1 ([facility]) Furosemide 20 MG Oral Tablet Furosemide 20 MG Oral Tab let (LASIX) Furosemide 20 MG Oral Tablet (LASIX) 11/25/2019 12:00:00 AM EDT 20 mg Oral active Take 20 mg by mouth daily [facility] Melatonin 10 MG Melatonin 10 MG 11/25/2019 12:00:00 AM EDT active Melatonin 10 MG eCW1 ([facility]) Melatonin 10 MG Melatonin 10 MG 11/25/2019 12:00:00 AM EDT active Melatonin 10 MG eCW1 ([facility]) Melatonin 10 MG Melatonin 10 MG 11/25/2019 12:00:00 AM EDT active Melatonin 10 MG eCW1 ([facility]) Melatonin 10 MG Melatonin 10 MG 11/25/2019 12:00:00 AM EDT active Melatonin 10 MG eCW1 ([facility]) pregabalin 100 MG Oral Capsule Pregabalin 100 MG Oral Capsule (LYRICA) Pregabalin 100 MG Oral Capsule (LYRICA) 11/15/2019 12:00:00 AM EDT active TAKE 1 CAPSULE BY MOUTH THREE TI MES DAILY MAX 3 CAPS/DAY [facility] pregabalin 100 MG Oral Capsule [Lyrica] Lyrica 100 MG Lyrica 100 MG 11/15/2019 12:00:00 AM EDT 1.0 {capsule} active L yrica 100 MG eCW1 ([facility]) May Have - UNK 10/28/2019 12:00:00 AM EDT active May Have - eCW1 ([facility]) May Have - UNK 10/28/2019 12:00:00 AM EDT active May Have - eCW1 ([facility]) May Have - UNK 10/28/2019 12:00:00 AM EDT active May Have - eCW1 ([facility]) May Have - UNK 10/28/2019 12:00:00 AM EDT active May Have - eCW1 ([facility]) May Have - UNK 10/28/2019 12:00:00 AM EDT active May Have - eCW1 ([facility]) May Have - UNK 10/28/2019 12:00:00 AM EDT active May Have - eCW1 ([facility]) May Have - UNK 10/28/2019 12:00:00 AM EDT active May Have - eCW1 ([facility]) May Have - UNK 10/28/2019 12:00:00 AM EDT active May Have - eCW1 ([facility]) May Have - UNK 10/28/2019 12:00:00 AM EDT active May Have - eCW1 ([facility]) May Have - UNK 10/28/2019 12:00:00 AM EDT active May Have - eCW1 ([facility]) May Have - UNK 10/28/2019 12:00:00 AM EDT active May Have - eCW1 ([facility]) May Have - UNK 10/28/2019 12:00:00 AM EDT active May Have - eCW1 ([facility]) May Have - UNK 10/28/2019 12:00:00 AM EDT active May Have - eCW1 ([facility]) May Have - UNK 10/28/2019 12:00:00 AM EDT active May Have - eCW1 ([facility]) May Have - UNK 10/28/2019 12:00:00 AM EDT active May Have - eCW1 ([facility]) May Have - UNK 10/28/2019 12:00:00 AM EDT active May Have - eCW1 ([facility]) May Have - UNK 10/28/2019 12:00:00 AM EDT active May Have - eCW1 ([facility]) May Have - UNK 10/28/2019 12:00:00 AM EDT active May Have - eCW1 ([facility]) May Have - UNK 10/28/2019 12:00:00 AM EDT active May Have - eCW1 ([facility]) May Have - UNK 10/28/2019 12:00:00 AM EDT active May Have - eCW1 ([facility]) May Have - UNK 10/28/2019 12:00:00 AM EDT active May Have - eCW1 ([facility]) May Have - UNK 10/28/2019 12:00:00 AM EDT active May Have - eCW1 ([facility]) May Have - UNK 10/28/2019 12:00:00 AM EDT active May Have - eCW1 ([facility]) May Have - UNK 10/28/2019 12:00:00 AM EDT active May Have - eCW1 ([facility]) May Have - UNK 10/28/2019 12:00:00 AM EDT active May Have - eCW1 ([facility]) May Have - UNK 10/28/2019 12:00:00 AM EDT active May Have - eCW1 ([facility]) May Have - UNK 10/28/2019 12:00:00 AM EDT active portable oxygen eCW1 ([facility]) May Have - UNK 10/28/2019 12:00:00 AM EDT active May Have - eCW1 ([facility]) May Have - UNK 10/28/2019 12:00:00 AM EDT active May Have - eCW1 ([facility]) Prednisone 10 MG Oral Tablet predniSONE (DELTASONE) 10 MG tablet predniSONE (DELTASONE) 10 MG tablet 10/25/2019 12:00:00 AM EDT 20 mg Oral active Take 20 mg by mouth daily [facility] gabapentin 300 MG Oral Capsule Gabapentin 300 MG Oral Capsule (NEURONTIN) Gabapentin 300 MG Oral Capsule (NEURONTIN) 10/25/2019 12:00:00 AM EDT aborted TAKE 2 CAPSULES BY M OUTH AT 4PM AND 9PM ON 10/25 2 CAPS THREE TIMES A DAY ON 10/26 11/01 1 THREE TIMES A DAY ON 11/02 11/08 1 TWICE A DAY 11/09 [facility] duloxetine 30 MG Delayed Release Oral Ca psule DULoxetine HCl 30 MG Oral Capsule Delayed Release Particles (CYMBALTA) DULoxetine HCl 30 MG Oral Capsule Delaye d Release Particles (CYMBALTA) 09/25/2019 12:00:00 AM EDT 60 mg Oral aborted Take 60 mg by mouth daily [facility] Diazepam 5 MG Oral Tablet Diazepam 09/12/2019 12:00:00 AM EDT active MEDENT ([facility], ) Diazepam 5 MG Oral Tablet diazePAM 5 MG Oral Tablet (V ALIUM) diazePAM 5 MG Oral Tablet (VALIUM) 09/12/2019 12:00:00 AM EDT ab orted TAKE ONE TABLET BY MOUTH 30 TO 60 MINUTES PRIOR TO MRI MAX 1 TAB/DAY [facility] Fluocinonide 0.5 MG/ML Topical Cream Fluocinonide 0.05 % Flu ocinonide 0.05 % 08/26/2019 12:00:00 AM EDT active 1 application eCW1 ([facility]) Fluocinonide 0.5 MG/ML Topical Cream Fluocinonide 0.05 % Flu ocinonide 0.05 % 08/26/2019 12:00:00 AM EDT 1.0 {application} act vero Fluocinonide 0.05 % eCW1 ([facility]) Fluocinonide 0.5 MG/ML Topical Cream Fluocinonide 0.05 % Flu ocinonide 0.05 % 08/26/2019 12:00:00 AM EDT active 1 application eCW1 ([facility]) Acetaminophen 325 MG / Hydrocodone Chas trate 5 MG Oral Tablet HYDROcodone- Acetaminophen 5-325 MG Oral Tablet (LORTAB) HYDROcodone-Acetaminophen 5-325 MG Oral Tablet (LORTAB) 08/23/2019 12:00:00 AM EDT active TAKE ONE TABLET BY MOUTH EVERY 6 HOURS NEEDED MAX 4/DAY [facility] Acetaminophen 325 MG / Hydrocodone Chas trate 5 MG Oral Tablet HYDROcodone- acetaminophen (NORCO) 5-325 MG per tablet HYDROcodone-acetaminophen (NORCO) 5- 325 MG per tablet 08/23/2019 12:00:00 AM EDT active TAKE ONE TABLET BY MOUTH EVERY 6 HOURS NEEDED MAX 4/DAY [facility] Testosterone Cypionate 200 MG/ML Intramu scular Solution (DEPOTESTOTERONE CYPIONATE) 2804-8220-85 2019 12:00:00 AM EST aborted INJECT 1 ML INTRAMUSCULARLY EVERY 2 WEEKS MAX 1ML/14DAYS [facility] Budesonide 0.25 MG/ML Inhalant Solution Budesonide 0.5 MG/2ML Inhalation Suspension (PULMICORT) Budesonide 0.5 MG/2ML Inhalation Suspension (PULMICORT ) 07/18/2019 12:00:00 AM EST aborted INHALE 1 VIAL VIA NEBULIZER TWICE A DAY [facility] Ipratropium [place] 0.2 MG/ML Inhalant S olution Ipratropium [place] 0.02 % Inhalation Solution (ATROVENT) Ipratropium [place] 0.02 % Inhalation So lution (ATROVENT) 05/12/2019 12:00:00 AM EST aborted USE ONE HALF VIAL VIA NEBULIZER THREE TIMES A DAY [facility] Nystatin 100 UNT/MG Topical Powder [Nystop] Nystop 100 000 UNIT/GM Nystop 385804 UNIT/GM 04/30/2019 12:00:00 AM EST active 1 application eCW1 ([facility]) gabapentin 600 MG Oral Tablet Gabapentin 600 MG Oral T ablet (NEURONTIN) Gabapentin 600 MG Oral Tablet (NEURONTIN) 04/18/2019 12:00:00 AM EST aborted TAKE 1 TABLET BY MARLENA TH THREE TIMES DAILY AT 6AM 3PM AND AT BEDTIME [facility] Eszopiclone 2 MG Oral Tablet Eszopiclone 2 MG Oral Tab let (LUNESTA) Eszopiclone 2 MG Oral Tablet (LUNESTA) 02/04/2019 12:00:00 AM EDT aborted TAKE ONE TABLET BY MOUTH BEFORE BEDTIME MAXIMUM DAILY DOSE ONE TABLET [facility] Amlodipine 2.5 MG Oral Tablet amLODIPine Besylate 2.5 MG Oral Tablet (NORVASC) amLODIPine Besylate 2.5 MG Oral Tablet (NORVASC) 02/04/2019 12:00:00 AM EDT 2.5 mg Oral aborted Take 2.5 mg by mouth [facility] Escitalopram 20 MG Oral Tablet Escitalopram Oxalate 20 MG Oral Tablet (LEXAPRO) Escitalopram Oxalate 20 MG Oral Tablet (LEXAPRO) 02/04/2019 12:00:00 AM EDT 20 mg Oral aborted Take 20 mg by mouth [facility] 60 ACTUAT Budesonide 0.16 MG/ACTUAT / fo rmoterol fumarate 0.0045 MG/ACTUAT Metered Dose Inhaler [Symbicort] SYMBICORT 160-4.5 MCG/ACT inhaler SYMBICORT 160-4.5 MCG/ACT inhaler 11/28/2018 12:00:00 AM EDT 2 {puff} Inhalatio n aborted Inhale 2 puffs into the lungs Tw o Times Daily [facility] albuterol (PROVENTIL HFA;VENTOLIN HFA) 108 (90 Base) M CG/ACT inhaler [id number] 11/18/2018 12:00:00 AM EDT 2 {puff} Inhalation aborted Inhale 2 puffs as needed [facility] Amlodipine 10 MG Oral Tablet amLODIPine (NORVASC) 10 M G tablet amLODIPine (NORVASC) 10 MG tablet 25 mg Oral aborted Take 25 mg by mouth 2 (two) times a day [facility] Furosemide 20 MG Oral Tablet furosemide (LASIX) 20 MG tablet furosemide (LASIX) 20 MG tablet 20 mg Oral aborted Take 20 mg by mouth daily [facility] pregabalin 100 MG Oral Capsule pregabalin (LYRICA) 100 MG capsule pregabalin (LYRICA) 100 MG capsule 100 mg Oral aborted Take 100 mg by mouth 3 (three) times a day [facility] Insurance Providers Payer name Policy type / Coverage type Policy ID Covered libertarian ID Covered libertarian's relationship to bang Policy Bang Plan Information ARY [id number] SP [id number] [place] [id number] S [id number] ARY EXCHANGE [id number] ARY EXCHANGE [id number] [place] [id number] ARY EXCHANGE U [id number] Self [id number] BCBS EMPIRE GERBER DIV [id number] SP [id number] [facility] [id number] SP [id number] [place] [id number] SP [id number] BCBS EMPIRE GERBER DIV [id number] SP [id number] [facility] [id number] SP [id number] WORKERS COMPENSATION GENERIC W [id number] Empl [id number] STATE INS [facility] W [id number] Empl [id number] ARY CARE [place] [id number] S [id number] EXCELLUS [place] EMPIRE [id number] S [id number] [facility] O [id number] S [id number] ARY ESSENTIAL PLAN [id number] still cleaner tube emplo yed [id number] EMPIRE PLAN [facility] U [id number] Self [id number] BCBS EMPIRE GERBER DIV [id number] SP [id number] EXCELLUS [place] E[place]IRE [id number] still cleaner tube employed [id number] BCBS EMPIRE GERBER DIV [id number] SP [id number] EXCELLUS [place] EMPIRE [id number] still cleaner tube employed [id number] BCBS EMPIRE GERBER DIV [id number] SP [id number] [facility] INS [facility] W [id number] Empl [id number] BCBS EMPIRE GERBER DIV [id number] SP [id number] PREFERRED INSURANCE E [id number] Self [id number] [facility] [id number] S [id number] BLUE CROSS [id number] S [id number] [facility] [id number] S [id number] EXCELLUS BCBS [id number] Renata YLS [id number] EXCELLUS BCBS PI PI EXCELLUS BCBS [id number] Renata YLS [id number] [facility] INS FUND W [id number] Empl [id number] STATE INS [facility] W [id number] Empl [id number] EMPIRE BLUE CROSS -O/P [id number] BLUE CROSS [id number] S [id number] AUTO NO FAULT [id number] S [id number] AUTO NO FAULT [id number] S [id number] BLUE CROSS [id number] S [id number] Problems, Conditions, and Diagnoses Code Display Name Description Problem Type Effective Dates Data Source(s) Z99.81 [id number] Requires continuous at home supplemental oxygen Problem 06/10/2020 12:00:00 AM EST eCW1 ([facility]) F33.1 [id number] 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 Problem 05/27/2020 12:00:00 AM EST eCW1 ([facility]) 373974669 Hypoxia Hypoxia Problem 05/27/2020 12:00:00 AM ES T MEDENT ([facility], ) 528507163 Lung function testing abnormal Lung function testing a bnormal Problem 05/27/2020 12:00:00 AM EST MEDENT ([facility], ) 673013566 Lung function testing abnormal Lung function testing a bnormal Problem 05/18/2020 12:00:00 AM EST MEDENT ([facility], ) 402053880 Hypoxia Hypoxia Problem 05/18/2020 12:00:00 AM ES T MEDENT ([facility], ) 711264579 Hypoxia Hypoxia Problem 04/22/2020 12:00:00 AM ES T MEDENT ([facility], ) 467879280 Lung function testing abnormal Lung function testing a bnormal Problem 04/22/2020 12:00:00 AM EST MEDENT ([facility], ) F32.9 49327232 Depression, unspecified depression type P roblem 04/20/2020 12:00:00 AM EST eCW1 ([facility]) 260145366 Hypoxia Hypoxia Problem 04/14/2020 12:00:00 AM ES T MEDENT ([facility], ) 283794898 Lung function testing abnormal Lung function testing a bnormal Problem 04/14/2020 12:00:00 AM EST MEDENT ([facility], ) 0419264 Cardiomegaly Cardiomegaly Problem 04/06/2020 12:00:00 A M EDT MEDENT ([facility], ) 753661367 Hypoxia Hypoxia Problem 04/06/2020 12:00:00 AM ED T MEDENT ([facility], ) 856769622 Lung function testing abnormal Lung function testing a bnormal Problem 04/06/2020 12:00:00 AM EDT MEDENT ([facility], ) G25.2 77882710 Intention tremor Problem 03/30/2020 12:00:00 AM EDT eCW1 ([facility]) J96.11 Chronic respiratory failure with hypoxia Chronic respiratory failure with hypoxia 98259560 02/09/2020 12:00:00 AM EDT [facility] R09.02 Severe hypoxemia Severe hypoxemia 38735793 02/09/2020 12 :00:00 AM EDT [facility] 963363141 Hypoxia Hypoxia Problem 12/31/2019 12:00:00 AM ED T MEDENT ([facility], ) 274005606 Lung function testing abnormal Lung function testing a bnormal Problem 12/31/2019 12:00:00 AM EDT MEDENT ([facility], ) J98.11 44594215 Bilateral atelectasis Problem 10/28/2019 12: 00:00 AM EDT eCW1 ([facility]) J98.11 80410288 Bilateral atelectasis Problem 10/28/2019 12: 00:00 AM EDT eCW1 ([facility]) 261475889 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 Problem 09/11 12:00:00 AM EDT MEDENT ([facility], ) 220678752 Lung function testing abnormal Lung function testing a bnormal Problem 10/07/2019 12:00:00 AM EDT MEDENT ([facility], ) 38199527 Diabetes mellitus Diabetes mellitus Problem 09/11/2019 12:00:00 AM EDT MEDENT ([facility], ) 27171194 Numbness Numbness Problem 09/11/2019 12:00:00 AM ED T MEDENT ([facility], ) 574938749 Chronic inflammatory demyelinating polyn europathy Chronic inflammatory demyelinating polyneuropathy Problem 09/11/2019 12:00:00 AM EDT MED ENT ([facility], ) 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 Proble m 09/11/2019 12:00:00 AM EDT MEDENT ([facility], ) 99182363 Disorder of diaphragm Disorder of diaphragm Problem 09/03/2019 12:00:00 AM EDT MEDENT ([facility], ) 720354503 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 Problem 08/11 12:00:00 AM EDT MEDENT ([facility], ) 57014822 Obstructive sleep apnea syndrome Obstructive sle ep apnea syndrome Problem 09/03/2019 12:00:00 AM EDT MEDENT ([facility]) 9741836 Tachycardia Tachycardia Problem 09/03/2019 12:00:00 AM EDT MEDENT ([facility], ) L30.9 067166258 Dermatitis Problem 08/26/2019 12:00:00 AM ED T eCW1 ([facility]) L30.9 798277398 Dermatitis Problem 08/26/2019 12:00:00 AM ED T eCW1 ([facility]) G47.33 76473031 Obstructive sleep apnea syndrome Problem 05/30/2019 12:00:00 AM EST eCW1 ([facility]) G47.33 09202138 Obstructive sleep apnea syndrome Problem 05/30/2019 12:00:00 AM EST eCW1 ([facility]) G61.81 966652551 CIDP (chronic inflammatory demye linating polyneuropathy) Problem 04/30/2019 12:00:00 AM EST eCW1 ([facility]) Z79.52 [id number] Current chronic use of systemic steroi ds Problem 04/30/2019 12:00:00 AM EST eCW1 ([facility]) B37.2 89770098 Mucocutaneous candidiasis Problem 04/30/2019 12:00:00 AM EST eCW1 ([facility]) Z86.14 727813286 Hx MRSA infection Problem 04/30/2019 12:00:0 0 AM EST eCW1 ([facility]) I10 40065938 Essential hypertension Problem 04/30/2019 12 :00:00 AM EST eCW1 ([facility]) J12.3 158352338 Human metapneumovirus (hMPV) pneumonia Pr oblem 04/30/2019 12:00:00 AM EST eCW1 ([facility]) B37.2 73591278 Mucocutaneous candidiasis Problem 04/30/2019 12:00:00 AM EST eCW1 ([facility]) Z86.14 058686641 Hx MRSA infection Problem 04/30/2019 12:00:0 0 AM EST eCW1 ([facility]) Z79.52 [id number] Current chronic use of systemic steroi ds Problem 04/30/2019 12:00:00 AM EST eCW1 ([facility]) G61.81 261625717 CIDP (chronic inflammatory demye linating polyneuropathy) Problem 04/30/2019 12:00:00 AM EST eCW1 ([facility]) J12.3 108121013 Human metapneumovirus (hMPV) pneumonia Pr oblem 04/30/2019 12:00:00 AM EST eCW1 ([facility]) I10 00432149 Essential hypertension Problem 04/30/2019 12 :00:00 AM EST eCW1 ([facility]) J96.11 Chronic respiratory failure with hypoxia Chronic respiratory failure with hypoxia Diagnosis 06/09/2020 10:54:04 AM EST [facility] I10 Essential (primary) hypertension Essential (primary) h ypertension Diagnosis 03/23/2020 08:18:12 AM EDT [facility] G89.29 Other chronic pain Other chronic pain Diagnosis 11/2019 09:51:00 AM [facility] R51.9 Headache, unspecified Headache, unspecified Diagnosis 03/17/2020 09:51:00 AM [facility] R83.8 Other abnormal findings in cerebrospinal fluid Other abnormal findings in cerebrospinal fluid Diagnosis 03/17/2020 09:51:00 AM [facility] R00.2 Palpitations Palpitations Diagnosis 03/09/2020 11:27:18 A M EDT [facility] R06.02 Shortness of breath Shortness of breath Diagnosis 0 03/09/2020 11:27:18 AM EDT [facility] R09.02 Hypoxemia Hypoxemia Diagnosis 02/10/2020 08:25:54 AM ED [facility] G93.2 Benign intracranial hypertension Benign intracra nial hypertension Diagnosis 02/07/2020 09:44:33 AM EDT [facility] R53.1 Weakness Weakness Diagnosis 02/07/2020 08:13:29 AM ED [facility] M79.2 Neuralgia and neuritis, unspecified Neuralgia an d neuritis, unspecified Diagnosis 02/07/2020 08:13:29 AM [facility] R26.89 Other abnormalities of gait and mobility Other abnormalities of gait and mobility Diagnosis 01/03/2020 01:50:46 PM [facility] G25.81 Restless legs syndrome Restless legs syndrome Diagnosi s 01/03/2020 01:50:46 PM [facility] R74.0 Nonspecific elevation of lev els of transaminase and lactic acid dehydrogenase [LDH] NONSPEC ELEV OF LEVELS OF TRANSAMNS & LA CTIC ACID DEHYDRGNSE Diagnosis 11/01/2019 12:31:00 PM EDT [facility] cortney G61.9 Inflammatory polyneuropathy, unspecified Inflammatory polyneuropathy, unspecified Diagnosis 10/07/2019 10:20:54 AM [facility] R73.9 Hyperglycemia, unspecified HYPERGLYCEMIA, UNSPECIFIED Diagnosis 09/17/2019 04:49:00 PM [facility] E78.2 Mixed hyperlipidemia MIXED HYPERLIPIDEMIA Diagnosis 09/17/2019 04:49:00 PM [facility] E55.9 Vitamin D deficiency, unspecified VITAMIN D DEFI CIENCY, UNSPECIFIED Diagnosis 09/17/2019 04:49:00 PM [facility] I10 Essential (primary) hypertension ESSENTIAL (PRIMARY) H YPERTENSION Diagnosis 09/17/2019 04:49:00 PM [facility] Z91.09 Other allergy status, other than to drug s and biological substances OTH ALLERGY STATUS, OTH THAN TO DRUGS AND BIOLG SUBSTANCES Diagnosis 09/11/2019 04:20:00 PM [facility] Z79.899 Other fci (current) drug therapy O [employer]ER [employer]OR WORKER (CURRENT) DRUG THERAPY Diagnosis 09/11/2019 04:20:00 PM [facility] Z79.82 assisted (current) use of aspirin FPC (CU RRENT) USE OF ASPIRIN Diagnosis 09/11/2019 04:20:00 PM [facility] I10 Essential (primary) hypertension ESSENTIAL (PRIMARY) H YPERTENSION Diagnosis 09/11/2019 04:20:00 PM [facility] K21.9 Gastro-esophageal reflux disease without esophagitis GASTRO-ESOPHAGEAL REFLUX DISEASE WITHOUT ESOPHAGITIS Diagnosis 09/11/2019 04:20:00 PM ED [facility] B97.89 Other viral agents as the cause of disea ses classified elsewhere OTH VIRAL AGENTS THE CAUSE OF DISEASES CLASSD ELSWHR Diagnosis 04:20:00 PM [facility] J06.9 Acute upper respiratory infection, unspe cified ACUTE UPPER RESPIRATORY INFECTION, UNSPECIFIED Diagnosis 09/11/2019 04:20:00 PM [facility] Z87.442 Personal history of urinary calculi PERSONAL HIS TORY OF URINARY CALCULI Diagnosis 08/23/2019 10:45:00 AM [facility] L03.115 Cellulitis of right lower limb CELLULITIS OF RIGHT LOW ER LIMB Diagnosis 08/23/2019 10:45:00 AM [facility] R21 Rash and other nonspecific skin eruption RASH AND OTHER NONSPECIFIC SKIN ERUPTION Diagnosis 08/23/2019 10:18:00 AM [facility] R06.02 Shortness of breath SHORTNESS OF BREATH Diagnosis 0 08/23/2019 10:18:00 AM [facility] Z09 Encounter for follow-up exam ination after completed treatment for conditions other than malignant neoplasm ENCNTR FOR F/U EXAM AFT TRTMT FOR COND O TH THAN MALIG NEOPLM Diagnosis 08/14/2019 08:49:00 AM [facility] R26.2 Difficulty in walking, not elsewhere cla ssified DIFFICULTY IN WALKING, NOT ELSEWHERE CLASSIFIED Diagnosis 08/14/2019 08:49:00 AM [facility] M62.81 Muscle weakness (generalized) MUSCLE WEAKNESS (GENERAL IZED) Diagnosis 08/14/2019 08:49:00 AM [facility] M54.5 Low back pain LOW BACK PAIN Diagnosis 08/12/2019 07:40:00 AM [facility] M25.521 Pain in right elbow PAIN IN RIGHT ELBOW Diagnosis 0 08/12/2019 07:40:00 AM [facility] 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 CHRONIC INFLAMMATORY DEMYELINATING POLYNEURITIS Diagnosis 08/12/2019 07:40:00 AM [facility] J96.11 Chronic respiratory failure with hypoxia CHRONIC RESPIRATORY FAILURE WITH HYPOXIA Diagnosis 07/19/2019 07:51:00 AM [facility] G47.33 Obstructive sleep apnea (adult) (pediatr ic) OBSTRUCTIVE SLEEP APNEA (ADULT) (PEDIATRIC) Diagnosis 07/19/2019 07:51:00 AM [facility] 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 PERSONAL HISTORY OF METHICILLIN RESIS STAPH INFECTION Diagno sis 07/05/2019 09:07:00 PM [facility] K58.9 Irritable bowel syndrome without diarrhe a IRRITABLE BOWEL SYNDROME WITHOUT DIARRHEA Diagnosis 07/05/2019 09:07:00 PM [facility] Z68.35 Body mass index (BMI) 35.0-35.9, adult B ARLENE MASS INDEX (BMI) 35.0-35.9, ADULT Diagnosis 07/05/2019 09:07:00 PM [facility] E66.9 Obesity, unspecified OBESITY, UNSPECIFIED Diagnosis 07/05/2019 09:07:00 PM [facility] B97.81 Human metapneumovirus as the cause of di seases classified elsewhere HUMAN METAPNEUMOVIRUS THE CAUSE OF DISEASES CLASSD ELSWHR Diagnosis 07/05/2019 09:07:00 PM [facility] K76.0 Fatty (change of) liver, not elsewhere c lassified FATTY (CHANGE OF) LIVER, NOT ELSEWHERE CLASSIFIED Diagnosis 07/05/2019 09:07:00 PM [facility] J96.21 Acute and chronic respiratory failure wi th hypoxia ACUTE AND CHRONIC RESPIRATORY FAILURE WITH HYPOXIA Diagnosis 07/05/2019 09:07:00 PM [facility] G62.89 Other specified polyneuropathies OTHER SPECIFIED POLYNEUROPATHIES Diagnosis 07/04/2019 07:39:00 AM [facility] R13.10 Dysphagia, unspecified DYSPHAGIA, UNSPECIFIED Diagnosi s 06/24/2019 01:51:00 PM [facility] Z87.01 Personal history of pneumonia (recurrent ) PERSONAL HISTORY OF PNEUMONIA (RECURRENT) Diagnosis 06/24/2019 01:51:00 PM [facility] G72.9 Myopathy, unspecified MYOPATHY, UNSPECIFIED Diagnosis 06/20/2019 03:54:00 PM [facility] G72.9 Myopathy, unspecified MYOPATHY, UNSPECIFIED Diagnosis 06/19/2019 12:31:00 PM [facility] J96.10 Chronic respiratory failure, unspecified whether with hypoxia or hypercapnia CHRONIC RESPIRATORY FAILURE, UNSP W HYPOXIA OR HYPERCA PNIA Diagnosis 06/18/2019 08:54:00 AM [facility] M21.371 Foot drop, right foot FOOT DROP, RIGHT FOOT Diagnosis 05/15/2019 01:39:00 PM [facility] R20.2 Paresthesia of skin PARESTHESIA OF SKIN Diagnosis 1 07/16/2018 01:39:00 PM [facility] T38.0X5A Adverse effect of glucocorti coids and synthetic analogues, initial encounter ADVERSE EFFECT OF GLUCOCORT/SYNTH ANALOG, INIT Diagnosis 05/07/2019 08:35:00 PM [facility] R73.9 Hyperglycemia, unspecified HYPERGLYCEMIA, UNSPECIFIED Diagnosis 05/07/2019 08:35:00 PM [facility] B37.0 Candidal stomatitis CANDIDAL STOMATITIS Diagnosis 1 07/07/2018 08:35:00 PM [facility] E87.2 Acidosis ACIDOSIS Diagnosis 05/07/2019 08:35:[address] [facility] [place] F32.9 Major depressive disorder, single episod e, unspecified MAJOR DEPRESSIVE DISORDER, SINGLE EPISODE, UNSPECIFIED Diagnosis 05/07/2019 08:35:00 PM [facility] F41.9 Anxiety disorder, unspecified ANXIETY DISORDER, UNSPEC IFIED Diagnosis 05/07/2019 08:35:00 PM [facility] E66.01 Morbid (severe) obesity due to excess ca lories MORBID (SEVERE) OBESITY DUE TO EXCESS CALORIES Diagnosis 05/07/2019 08:35:00 PM EST [facility] J84.89 Other specified interstitial pulmonary d iseases OTHER SPECIFIED INTERSTITIAL PULMONARY DISEASES Diagnosis 05/07/2019 08:35:00 PM EST [facility] Surgeries/Procedures Procedure Description Date Indications Data Source(s) POCT AMB EKG POCT AMB EKG Routine 06/09/2020 5:00 PM EST Chronic respiratory failure with hypoxia 06/09/2020 10:00:00 PM EST Chronic respiratory failure with hypoxia [facility] Chronic respiratory failure with hypoxia Spirometry 04/06/2020 12:00:00 AM EDT M SANTI ([facility]) Maximum Breathing Capacity, Maximal Voluntary Ventilation 04/06/2020 12:00:00 AM EDT MEDENT ([facility], ) NATRIURETIC PEPTIDE 03/18/2020 12:00:00 AM [facility] BASIC METABOLIC PANEL CALCIUM TOTAL METABOLIC PANEL TOTAL CA 03/18/2020 12:00:00 AM [facility] CELL COUNT, CSF CELL COUNT, CSF Routine 03/17/2020 12:51 PM EDT 03/17/2020 12:51:00 PM [facility] PROTEIN TOTAL XCPT REFRACTOMETRY OTH SRC PROTEIN, CSF Routin e 03/17/2020 12:51 PM EDT 03/17[facility] B[facility] FLUID OTHER THAN BLOOD GLUCOSE, CSF Routine 03/17/2020 12:51 PM EDT 03/17/2020 [facility] PARTIAL THROMBOPLASTIN TIME (PTT) PARTIAL THROMBOPLASTIN TIME ( PTT) STAT 03/17/2020 10:44 AM EDT 03/17/2020 10:44:00 AM [facility] PROTHROMBIN TIME PROTIME INR STAT 03/17/2020 10:44 AM EDT 03/17/2020 10:44:00 AM [facility] BLOOD COUNT COMPLETE AUTO&AUTO DIFRNTL WBC COUNT CBC AND DIFFER ENTIAL STAT 03/17/2020 10:44 AM EDT 03/17/2020 10:44:00 AM [facility] BASIC METABOLIC PANEL CALCIUM TOTAL BASIC METABOLIC PANEL STAT 03/17/2020 10:44 AM EDT 03/17/2020 10:44:00 AM EDT [facility] Needle electromyography, each extremity, with related paraspinal areas, when performed, done with nerve conduction, amplitude and latency/velocity study; complete, five or more muscles studied, innervated by three or more nerves or four or more spinal levels (list separately in addition to the code for primary procedure). 12/25/2019 12:00:00 AM EDT MEDRENITA T ([facility], ) Needle electromyography, each extremity, with related paraspinal areas, when performed, done with nerve conduction, amplitude and latency/velocity study; complete, five or more muscles studied, innervated by three or more nerves or four or more spinal levels (list separately in addition to the code for primary procedure). 12/25/2019 12:00:00 AM EDT MEDRENITA Diana ([facility], ) [address] Nerve conduction studies 13 or more studies NEW 201212/25/2019 12:00:00 AM EDT MEDCYNDI ([facility], ) HEPATITIS B CORE ANTIBODY HBCAB TOTAL HEP B CORE ANTIBODY TO MIKAEL 11/01/2019 12:00:00 AM [facility] IAAD EIA HEPATITIS B SURFACE ANTIGEN HEPATITIS B SURFACE AG IA 11/01/2019 12:00:00 AM [facility] HEPATITIS B SURF ANTIBODY HBSAB HEP B SURFACE ANTIBODY 10/31 12:00:00 AM [facility] HEPATITIS C ANTIBODY HEPATITIS C AB TEST 11/01/2019 12:00:00 AM [facility] IRON BINDING CAPACITY IRON BINDING TEST 11/01/2019 12:00:00 AM [facility] IRON ASSAY OF IRON 11/01/2019 12:00:00 AM [facility] FERRITIN ASSAY OF FERRITIN 11/01/2019 12:00:00 AM [facility] HEPATIC FUNCTION PANEL HEPATIC FUNCTION PANEL 11/01/2019 12:00:00 A M [facility] EKG- ALL NON MCR/TRI PAYERS 10/28/2019 12:00:00 AM EDT eCW1 ([facility]) Bronchospasm Evaluation 10/07/2019 12:00:00 AM EDT MEDENT ([facility], ) Maximum Breathing Capacity, Maximal Voluntary Ventilation 10/07/2019 12:00:00 AM [facility] ([facility]) Plethysmography Determination Lung Volumes & Per Airway Resi st 10/07/2019 12:00:00 AM [facility] ([facility]) DIFFUSING CAPACITY 10/07/2019 12:00:00 AM [facility] ([facility], ) MRI SPINAL CANAL LUMBAR W/O CONTRAST MATERIAL 09/30/19 12:00:00 AM [facility] ([facility]) MRI SPINAL CANAL LUMBAR W/O CONTRAST MATERIAL 09/30/19 12:00:00 AM [facility] ([facility]) PROTEIN ELECTROPHORETIC FRACTJ&QUANTJ SERUM PROTEIN E-PHORES IS SERUM 09/17/2019 12:00:00 AM [facility] PROTEIN XCPT REFRACTOMETRY SERUM PLASMA/WHL BLD ASSAY OF PRO TEIN SERUM 09/17/2019 12:00:00 AM [facility] IMMUNOFIXJ ELECTROPHORESIS SERUM IMMUNOFIX E-PHORESIS SERUM 09/17/2019 12:00:00 AM [facility] THYROXINE FREE ASSAY OF FREE THYROXINE 09/17/2019 12:00:00 AM [facility] THYROID STIMULATING HORMONE TSH ASSAY THYROID STIM HORMONE 0 09/17/2019 12:00:00 AM [facility] 25 HYDROXY INCLUDES FRACTIONS IF PERFORMED VITAMIN D 25 HYDR OXY 09/17/2019 12:00:00 AM [facility] BLOOD COUNT COMPLETE AUTO&AUTO DIFRNTL WBC COUNT COMPLETE CB C W/AUTO DIFF WBC 09/17/2019 12:00:00 AM [facility] HEMOGLOBIN GLYCOSYLATED A1C GLYCOSYLATED HEMOGLOBIN TEST 12/2019 12:00:00 AM [facility] LIPID PANEL LIPID PANEL 09/17/2019 12:00:00 AM [facility] COMPREHENSIVE METABOLIC PANEL COMPREHEN METABOLIC PANEL 12/2019 12:00:00 AM [facility] PRESSURIZED/NONPRESSURIZED INHALATION TREATMENT AIRWAY INHAL ATION TREATMENT 09/11/2019 12:00:00 AM [facility] [address] X-RAY EXAM CHEST 1 VIEW 09/11/2019 12:00:00 AM [facility] ECG ROUTINE ECG W/LEAST 12 LDS TRCG ONLY W/O I&R ELECTROCARD IOGRAM TRACING 09/11/2019 12:00:00 AM [facility] [address] SARS-COV-2 COVID-19 AMP PRB 09/11/2019 12:00:00 AM [facility] IADNA MYCOPLSM PNEUMONIAE AMPLIFIED PROBE TQ M.PNEUMON DNA A MP PROBE 09/11/2019 12:00:00 AM [facility] IADNA CHLAMYDIA PNEUMONIAE AMPLIFIED PROBE TQ CHYLMD PNEUM D NA AMP PROBE 09/11/2019 12:00:00 AM [facility] IADNA NOS AMPLIFIED PROBE TQ EACH ORGANISM DETECT AGENT NOS DNA AMP 09/11/2019 12:00:00 AM [facility] [address] RESP VIRUS 12-25 TARGETS 09/11/2019 12:00:00 AM [facility] CULTURE BACTERIAL BLOOD AEROBIC W/ID ISOLATES BLOOD CULTURE FOR BACTERIA 09/11/2019 12:00:00 AM [facility] URNLS DIP STICK/TABLET RGNT AUTO W/O MICROSCOPY URINALYSIS A UTO W/O SCOPE 09/11/2019 12:00:00 AM [facility] THROMBOPLASTIN TIME PARTIAL PLASMA/WHOLE BLOOD THROMBOPLASTI N TIME PARTIAL 09/11/2019 12:00:00 AM [facility] PROTHROMBIN TIME PROTHROMBIN TIME 09/11/2019 12:00:00 AM [facility] BLOOD COUNT COMPLETE AUTO&AUTO DIFRNTL WBC COUNT COMPLETE CB C W/AUTO DIFF WBC 09/11/2019 12:00:00 AM [facility] MAGNESIUM ASSAY OF MAGNESIUM 09/11/2019 12:00:00 AM [facility] NATRIURETIC PEPTIDE ASSAY OF NATRIURETIC PEPTIDE 09/11/2019 12:00:0 0 AM [facility] LACTATE ASSAY OF LACTIC ACID 09/11/2019 12:00:00 AM [facility] BLOOD GASES ANY COMBINATION PH PCO2 PO2 CO2 HCO3 BLOOD GASES ANY COMBINATION 09/11/2019 12:00:00 AM [facility] TROPONIN QUANTITATIVE ASSAY OF TROPONIN QUANT 09/11/2019 12:00:00 A M [facility] LIPASE ASSAY OF LIPASE 09/11/2019 12:00:00 AM [facility] COMPREHENSIVE METABOLIC PANEL COMPREHEN METABOLIC PANEL 06/2019 12:00:00 AM [facility] FIBRIN DGRADJ PRODUCTS D-DIMER QUANTITATIVE FIBRIN DEGRADATI ON QUANT 09/11/2019 12:00:00 AM [facility] Injection, magnesium sulfate, per 500 mg 09/11/2019 12 :00:00 AM [facility] Non-covered item or service 09/11/2019 12:00:00 AM [facility] COLLECTION VENOUS BLOOD VENIPUNCTURE ROUTINE VENIPUNCTURE 12:00:00 AM [facility] IV INFUSION THERAPY/PROPHYLAXIS /DX 1ST TO 1 HR THER/PROPH/D IAG IV INF INIT 09/11/2019 12:00:00 AM [facility] EMERGENCY DEPT VISIT HIGH SEVERITY&THREAT FUNCJ EMERGENCY DE PT VISIT 09/11/2019 12:00:00 AM [facility] [address] X-RAY EXAM CHEST 2 VIEWS 08/23/2019 12:00:00 AM [facility] Injection, ketorolac tromethamine, per 15 mg 0 12:00:00 AM [facility] THER PROPH/DX NJX IV PUSH SINGLE/1ST SBST/DRUG THER/PROPH/DI AG INJ IV PUSH 08/23/2019 12:00:00 AM [facility] IV INFUSION HYDRATION EACH ADDITIONAL HOUR HYDRATE IV INFUSI ON ADD-ON 08/23/2019 12:00:00 AM [facility] outpatient clinic visit for assessment and ma nagement of a patient Hospital Outpatient Clinic Visit 08/12/2019 12:00:00 AM [facility] Computerized Tomography (CT Scan) of Neck using Low Os molar Contrast CT SCAN OF NECK USING L OSM CONTRAST 07/06/2019 12:00:00 AM [facility] Computerized Tomography (CT Scan) of Samira st and Abdomen using Low Osmolar Contrast CT SCAN OF CHEST & ABD USING L OSM CONTRAST 07/05/2019 12:00 :00 AM [facility] Measurement of Cardiac Rhythm, External Approach MEASU REMENT OF CARDIAC RHYTHM, EXTERNAL APPROACH 07/05/2019 12:00:00 AM [facility] Assistance with Respiratory Ventilation, Less than 24 Consecutive Hours, Continuous Positive Airway Pressure ASSISTANCE WITH RESPIRATORY VENTILATION, <24 HRS, CPAP 07/05/2019 12:00:00 AM [facility] BIOPSY MUSCLE DEEP 07/04/2019 12:00:00 AM [facility] LEVEL I SURG PATHOLOGY GROSS EXAMINATION ONLY SURGICAL PATH GROSS 07/04/2019 12:00:00 AM [facility] GAMMAGLOBULIN IGA IGD IGG IGM EACH ASSAY IGA/IGD/IGG/IGM EAC H 07/04/2019 12:00:00 AM [facility] CELL COUNT MISC BODY FLUIDS W/DIFFERENTIAL COUNT BODY FLUID CELL COUNT 07/04/2019 12:00:00 AM [facility] GLUCOSE QUANTITATIVE BLOOD XCPT REAGENT STRIP ASSAY GLUCOSE BLOOD QUANT 07/04/2019 12:00:00 AM [facility] GLUCOSE BODY FLUID OTHER THAN BLOOD GLUCOSE OTHER FLUID 06/13 12:00:00 AM [facility] PROTEIN ELECTROPHORETIC FRACTJ&QUANTJ SERUM PROTEIN E-PHORES IS SERUM 07/04/2019 12:00:00 AM [facility] Unclassified drugs 07/04/2019 12:00:00 AM [facility] Injection, propofol, 10 mg 07/04/2019 12:00:00 AM [facility] Injection, fentanyl citrate, 0.1 mg 07/04/2019 12:00:0 0 AM [facility] Injection, midazolam hydrochloride, per 1 mg 0 12:00:00 AM [facility] Injection, cefoxitin sodium, 1 gm 07/04/2019 12:00:00 AM [facility] Excision of Right Upper Leg Muscle, Open Approach, Yessica gnostic EXCISION OF RIGHT UPPER LEG MUSCLE, OPEN APPROACH, DIAGN 07/04/2019 12:00:00 AM [facility] EVAL ORAL&PHARYNGEAL SWLNG FUNCJ EVALUATE SWALLOWING FUNCTIO N 06/24/2019 12:00:00 AM [facility] THER PX 1/> AREAS EA 15 MIN GAIT TRAINJ W/STAIR GAIT TRAININ G THERAPY 06/21/2019 12:00:00 AM [facility] THROMBOPLASTIN TIME PARTIAL PLASMA/WHOLE BLOOD THROMBOPLASTI N TIME PARTIAL 06/20/2019 12:00:00 AM [facility] PROTHROMBIN TIME PROTHROMBIN TIME 06/20/2019 12:00:00 AM [facility] THER PX 1/> AREAS EACH 15 MIN NEUROMUSC REEDUCAJ NEUROMUSCUL AR REEDUCATION 06/18/2019 12:00:00 AM [facility] THERAPEUTIC PX 1/> AREAS EACH 15 MIN EXERCISES THERAPEUTIC E XERCISES 06/14/2019 12:00:00 AM [facility] [address] PULMONARY STRESS TESTING 06/13/2019 12:00:00 AM [facility] [address] NRV CNDJ TEST 13/> STUDIES 05/15/2019 12:00:00 AM [facility] Ultrasonography of Bilateral Lower Extremity Veins ULT RASONOGRAPHY OF BILATERAL LOWER EXTREMITY VEINS 05/09/2019 12:00:00 AM [facility] Magnetic Resonance Imaging (MRI) of Lumbar Spine using Other Contrast MRI OF LUMBAR SPINE USING OTH CONTRAST 05/09/2019 12:00:00 AM [facility] Magnetic Resonance Imaging (MRI) of Lumbar Spine MAGNE TIC RESONANCE IMAGING (MRI) OF LUMBAR SPINE 05/09/2019 12:00:00 AM [facility] Magnetic Resonance Imaging (MRI) of Thoracic Spine usi ng Other Contrast MRI OF THORACIC SPINE USING OTH CONTRAST 05/09/2019 12:00:00 AM [facility] Magnetic Resonance Imaging (MRI) of Thoracic Spine MAG NETIC RESONANCE IMAGING (MRI) OF THORACIC SPINE 05/09/2019 12:00:00 AM [facility] [address] PT EVAL HIGH COMPLEX 45 MIN 05/01/2019 12:00:00 AM [facility] Results ID Date Data Source [id number] 06/16/2020 07:34:00 PM [facility] Name Value Range Interpretation Code Description Data Agueda rce(s) Supporting Document(s) SARS-CoV-2 (COVID 19) [facility] This lab was ordered by [facility] a nd reported by [facility]. ID Date Data Source [id number] 05/27/2020 02:35:12 PM EST [facility] Name Value Range Interpretation Code Description Data Agueda rce(s) Supporting Document(s) Progress Note [facility] [id number]/FTOnmKDIxy6MtFYiaQPo8VGatBFAkN2FpMEQ3yT4lUBB0MOxQFzVrMnJvDiQ2 lbm [file] ICAgICAgICAgICAgICAgICAgICAgICAgICAgICAgICAgICAgICAgICAgICAgICAgICAgICAgICAgICAg ICAgICAgICAgICAgICAgICAgICAgICAgICAgICAgICANCiAgICAgICAgICAgICAgICAgICAgICAgICAg ICAgICAgICAgICAgICAgICAgICAgICAgICAgICAgIC AgICAgICAgICAgICAgICAgICAgICAgICAgICAgICAgICAgICAgICAgICANCiAgICAgICAgICAgICAgIC AgICAgICAgICAgICAgICAgICAgICAgICAgICAgICAgICAgICAgICAgICAgICAgICAgICAgICAgICAgIC AgICAgICAgICAgICAgICAgICAgICAgICANCiAgICAg ICAgICAgICAgICAgICAgICAgICAgICAgICAgICAgICAgICAgICAgICAgICAgICAgICAgICAgICAgICAg ICAgICAgICAgICAgICAgICAgICAgICAgICAgICAgICAgICANCiAgICAgICAgICAgICAgICAgICAgICAg ICAgICAgICAgICAgICAgICAgICAgICAgICAgICAgIC AgICAgICAgICAgICAgICAgICAgICAgICAgICAgICAgICAgICAgICAgICAgICANCiAgICAgICAgICAgIC AgICAgICAgICAgICAgICAgICAgICAgICAgICAgICAgICAgICAgICAgICAgICAgICAgICAgICAgICAgIC AgICAgICAgICAgICAgICAgICAgICAgICAgICANCiAg ICAgICAgICAgICAgICAgICAgICAgICAgICAgICAgICAgICAgICAgICAgICAgICAgICAgICAgICAgICAg ICAgICAgICAgICAgICAgICAgICAgICAgICAgICAgICAgICAgICANCiAgICAgICAgICAgICAgICAgICAg ICAgICAgICAgICAgICAgICAgICAgICAgICAgICAgIC AgICAgICAgICAgICAgICAgICAgICAgICAgICAgICAgICAgICAgICAgICAgICAgICANCiAgICAgICAgIC AgICAgICAgICAgICAgICAgICAgICAgICAgICAgICAgICAgICAgICAgICAgICAgICAgICAgICAgICAgIC AgICAgICAgICAgICAgICAgICAgICAgICAgICAgICAN CiAgICAgICAgICAgICAgICAgICAgICAgICAgICAgICAgICAgICAgICAgICAgICAgICAgICAgICAgICAg ICAgICAgICAgICAgICAgICAgICAgICAgICAgICAgICAgICAgICAgICANCjw/lRSlH8fntPCzvpY1A8ct Kq0WHw4VQM9zi7ZbMNWjQYrefxNwGkaARhGrEERyLo eSTvq3GImbNM1JuSQjE0IeS3UuDMxaSK6ZVNLxUQEerAQfVSKeKDZxNoV8ABQiZWdtOG8LzEZiDLegVQ VqWKAxTeHcWRHfJBCfZMRpBMPgALGDKQCcCSVbXtJrBAAjLMOjUPkbTQWTWQ5YQtEfG7UrgR07FIjOAh 4+JIkfkoJvFayWXkA5WJBoi3ZaXAc7RF9JOTTiShob j5WeSgjyTIWCRZlbMY1MGTX7JIY0GWAsZk8FOVGuY743ygBgND5XRe9UNvVoUX8wcj2FAbqxVMVnElmS Wxd0FChbAZ3DpNVrXEcCom6ugyDofzVEm3MehxOmrTUQYIltcGGIHVS3WGcgkjNuZY2ZARJ0MRAkMtRl AhJmRdLbBAN5CVEcTY9qQXdyKA8EVMH8IMofXPMqKY UjD3xIAhThSYFeJKWzbMhbQX8MKsElK4XucuIpuQVzHnRwVXKJAq7+XYuyrtRsKeyOIyX7LOZbn6BtPM u3PB5PXPCqCAkrZR1VXAAhoJ6eIUfhQZ8BSrBkDIVcYIDFJjVyA06pwSSxNBc6B5BrUeIkYFTqYgaaYI MgPDwvTmFtZXMgWyBdDQogID4+ID4+UNaiPG2PTYix ksBzOTEtFf9CKCWhQEKaFS0tXDPaAPEcU0Z4yXngNWHWNqFaM8mmfdapHM9tXVMnL971fPosfiWiXTU1 ZKDnBg9AMQCaZBT2DHIbnQHeGzDaZRGRYAgxCE1PfYNlORA3vZ3yCJkvOTElAZPsG7vPPfOwqAnhUH28 bGwgbnVsbCBdDQo+Hy1VJZ1ho6TaKMr5cbOfRFvmAZ JdMDyxPXUyBEMnDIXaGSS6NAX9CBPNMmVnMAXpWJKbBYcuFKEyNZIghz5FQEYdAEN4XuQmTPErBDClIG NlSIenDKVtIUA6OVfeZKYrRJUzQM7NUaWyHWMqXWKqIEywMMShSMMgvu2IVEYhVEOpOAY1QxJpJCLpOB CoLZelDTWbQEI6AvepENWxWKLrTD5TBuQoPHFfXWg7 HAIiPKEaAMLnld6SEMFaEMKvXkj5ImJhYECfJZVlVXtiHZOmCSWnTvvcJTYiQUNzAI5FMaHuEOKgVIB6 UsMtVOWbMKUmcd5JKSJyDNJvBahvJfNlBXPzEWTtUVtmKQViMORxERG1NBFxMKAtWO8TNgUsGVAhAIyg VOacHREpVRToxz7NMRNyUSSbVvKfVQJyPGFaQYPjPD xnAEZpQQWgHZGmHOFrJKYiWM8QXjClOWNhUfIsGdqvTFUpQSIwwa8ZHJSqSKQqLPZkItWyQNSwTPXzQH ptFEIeMAN0EaC2YVWcBETxCP2GQeOyYICzFsE9ONxfFCClTOUphq4NOSKeANAtPZx1WdFmUIMpFSJeQR jpTQMhJAR5NBG3CLYyJYTjTX4DXtAiEYBrXfJ3Mpdd IQEvQXSwhm3CIMLsOMAoYiDcOBUqZKGxHFDjCRrvGMNnGNC1LwV2FVBuQCHtLQ0VVgTvMZUjNoa4VAln UJPkLSRelf5OKGIaIYYiYLX3DhFxQEFrWEQiGNlcUQZgWFL4SlfoAUFmAKZmQI9QHpSfOWIoZpw9YqJl HSAeOFVwqr4MVMRkSMBqQFM5JXNwCKMtMSCsPXkiGO XuIIWmQsKmQWQlBZXqEQ8LUsVdFMOiHVA6RIXwJRWvODOpui8VAXRuURT8KQp2ZWAnEOHjLPNjLAxfDM KgAZGiMBUmXRHpKSMbET5ZKfFqSZZfENVcEhQvWGTuQKFkmz8OGOHaXCN2YmXgLaLpJJCbGJGjXQrtCA DuBBPoBdSgTPPoGHTnVN3IKbErIKErPLXfIXxzNOHi VXWajv5XEHRpSPY5FWA2KIPrGBNyCLElZBxdESKhMTD8ZQCnDJBsKYFvSK1FWdYuIIgdJTZSOom0MMqg Q1r6YZF0DU9JN6Jkq0MrVrfkAWAWKLqkEN2sngWyGVMsWb9EK5eUKovlFdzpQmCuRIZfEwwaTyZjHfT5 ZhSoAQoaY8GaAfIxKR4jZJHdTRFgDYJ4ETV9LmH4Nd XtCjptUSAdLGZ4VCJ5XFPoIvHcIH2FOp2JTyP2VHY5fQCbIe3NTKD0CDJABkYnKQ3SNFc= ID Date Data Source [id number] 05/18/2020 09:54:00 AM EST MEDENT ([facility], ) Name Value Range Interpretation Code Description Data Agueda rce(s) Supporting Document(s) Glucose, Fasting 114 mg/dL 70-100 Above high normal M EDENT ([facility]) Creatinine For GFR 1.10 mg/dL 0.70-1.30 Normal (applies to non -numeric results) [facility] ([facility], ) Blood Urea Nitrogen 20 mg/dL 7-18 Above high normal [facility] ([facility]) Potassium Serum 4.8 meq/L 3.5-5.1 Significant change down [facility] ([facility], ) Sodium Level 139 meq/L 136-145 Normal (applies to non-numeric res ults) [facility] ([facility], ) Glomerular Filtration Rate Laboratory test result Normal (applies to non- numeric results) [facility] ([facility], ) <content>Units are mL/min/1.73 m2</content>
<content></content>
<content>Chronic Kidney Disease Staging per NKF:</content>
<content></content>
<content>Stage I & II GFR >=60 Normal to Mildly Decreased</content>
<content>Stage III GFR 30- 59 Moderately Decreased</content>
<content>Stage IV GFR 15-29 Severely Decreased</content>
<content>Stage V GFR <15 Very Little GFR Left</content>
<content>ESRD GFR <15 on DIRECTOR ALUMNI RELATIONS</content>
<content></content> Carbon Dioxide Level 29 meq/L 21-32 Normal (applies to non-num emilia results) [facility] ([facility], ) Chloride Level 102 meq/L 98-107 Normal (applies to non-numeric r esults) [facility] ([facility], ) Calcium Level 9.3 mg/dL 8.5-10.1 Normal (applies to non-numeric re sults) [facility] ([facility], ) Anion Gap 8 meq/L 8-16 Normal (applies to non-numeric resul ts) [facility], ) Ast/Sgot 24 U/L 7-37 Normal (applies to non-numeric resul ts) [facility], ) Alkaline Phosphatase 107 U/L 45-117 Normal (applies to non-num emilia results) [facility], ) Alt/SGPT 61 U/L 12-78 Normal (applies to non-numeric resul ts) [facility] ([facility]) Bilirubin,Total 0.7 mg/dL 0.2-1.0 Normal (applies to non-numeric results) [facility] ([facility]) Total Protein 7.5 GM/DL 6.4-8.2 Normal (applies to non-numeric re sults) [facility]) Albumin 4.3 GM/DL 3.2-5.2 Normal (applies to non-numeric resul ts) [facility] ([facility]) Albumin/Globulin Ratio 1.3 Normal (applies to non-n umeric results) [facility]) ID Date Data Source [id number] 05/15/2020 11:53:00 PM EST [facility] Name Value Range Interpretation Code Description Data Agueda rce(s) Supporting Document(s) SARS-CoV-2 (COVID 19) [facility] This lab was ordered by [facility] a nd reported by [facility]. ID Date Data Source [id number] 04/22/2020 02:26:00 PM EST [facility] ([facility]) Name Value Range Interpretation Code Description Data Agueda rce(s) Supporting Document(s) Magnesium [Mass/volume] in Serum or Plasma 2.1 mg/dL 1.8-2 .4 Normal (applies to non-numeric results) [facility] ([facility], ) ID Date Data Source [id number] 04/22/2020 02:26:00 PM EST [facility] ([facility]) Name Value Range Interpretation Code Description Data Agueda rce(s) Supporting Document(s) Glucose, Fasting 114 mg/dL 70-100 Above high normal [facility] Glomerular Filtration Rate Laboratory test result Normal (applies to non- numeric results) [facility]) <content>Units are mL/min/1.73 m2</content>
<content></content>
<content>Chronic Kidney Disease Staging per NKF:</content>
<content></content>
<content>Stage I & II GFR >=60 Normal to Mildly Decreased</content>
<content>Stage III GFR 30- 59 Moderately Decreased</content>
<content>Stage IV GFR 15-29 Severely Decreased</content>
<content>Stage V GFR <15 Very Little GFR Left</content>
<content>ESRD GFR <15 on DIRECTOR ALUMNI RELATIONS</content>
<content></content> Creatinine For GFR 1.09 mg/dL 0.70-1.30 Normal (applies to non -numeric results) [facility] Blood Urea Nitrogen 15 mg/dL 7-18 Normal (applies to non-nume pako results) [facility] ([facility], ) Chloride Level 104 meq/L 98-107 Normal (applies to non-numeric r esults) [facility] ([facility], ) Sodium Level 141 meq/L 136-145 Normal (applies to non-numeric res ults) [facility] ([facility], ) Potassium Serum 3.8 meq/L 3.5-5.1 Normal (applies to non-numeric results) [facility] ([facility], ) Anion Gap 10 meq/L 8-16 Normal (applies to non-numeric resul ts) [facility], ) Carbon Dioxide Level 27 meq/L 21-32 Normal (applies to non-num emilia results) [facility] ([facility], ) Calcium Level 9.2 mg/dL 8.5-10.1 Normal (applies to non-numeric re sults) [facility] ([facility], ) Ast/Sgot 36 U/L 7-37 Normal (applies to non-numeric resul ts) [facility] ([facility], ) Alt/SGPT 61 U/L 12-78 Normal (applies to non-numeric resul ts) [facility], ) Alkaline Phosphatase 116 U/L 45-117 Normal (applies to non-num emilia results) [facility], ) Total Protein 7.4 GM/DL 6.4-8.2 Normal (applies to non-numeric re sults) [facility], ) Bilirubin,Total 0.9 mg/dL 0.2-1.0 Normal (applies to non-numeric results) [facility] ([facility], ) Albumin 4.1 GM/DL 3.2-5.2 Normal (applies to non-numeric resul ts) [facility] ([facility], ) Albumin/Globulin Ratio 1.2 Normal (applies to non-n umeric results) [facility] ID Date Data Source [id number] 03/24/2020 09:18:31 AM EDT [facility] IR LUMBAR PUNCTUREFINAL RESULTInterprete d by:Shavon Cervantes MD03/17/2020 11:46 AMIR LUMBAR PUNCTUREEXAMINATION: Fluoroscopic-guided lumbar puncture.REASON FOR EXAMINATION: headache, history of elevated CSF protein and elevated Opening PressureRADIOLOGIST: Shavon Cervantes MDPROCEDURE: After the technique, risks, alternatives, and benefits of the procedure were explained to the patient, signed consent was obtained. A confirmatory timeout was performed prior to initiation of the procedure. A suitable puncture site at the L3-L4 level was obtained using fluoroscopy. The site was then cleaned and prepped in the usual sterile fashion. A total of 2 mL of 1% lidocaine was infused into the subcutaneous tissues during the procedure to achieve local anesthesia. Using a 20-gauge 3 1/2 inch spinal needle, the thecal sac was accessed under fluoroscopic guidance with the patient in the left lateral decubitus position.. Approximately 15 mL of clear CSF was collected into four separate vials. The spinal needle with stylet in place was removed and pressure was placed over the puncture site until hemostasis was achieved. Upon termination of the procedure, a verbal sign out was performed by Dr. Cervantes. There were no immediate complications. The patient tolerated the procedure well. CONCLUSION: Fluoroscopic guided lumbar puncture. Approximately 15 mL of clear CSF was collected into four separate vials. No immediate complications.FLUORO TIME - .2 MINUTESFLUORO DOSE - 22.7mGYopening pressure - 35closing pressure - 23 This document has been electronically signed by Shavon Cervantes MD on 03/24/2020 9:16 AM Name Value Range Interpretation Code Description Data Agueda rce(s) Supporting Document(s) ID Date Data Source [id number] 03/18/2020 04:17:00 PM EDT [facility] Name Value Range Interpretation Code Description Data Agueda rce(s) Supporting Document(s) B-Type Natriuretic Peptide BNP <125 Normal (applies to non-numeric results) [facility] Results of this test should always be us ed in conjunction with the patients medical history, clinical presentation, and other findings. ID Date Data Source [id number] 03/18/2020 04:17:00 PM EDT [facility] Name Value Range Interpretation Code Description Data Agueda rce(s) Supporting Document(s) Sodium 141 mmol/L 136-145 Normal (applies to non-numeric resul ts) [facility] Potassium 3.5-5.1 Normal (applies to non-numeric resul ts) [facility] Chloride 103 mmol/L 98-107 Normal (applies to non-numeric resul ts) [facility] Carbon Dioxide CO2 21-32 Normal (applies to non-numer ic results) [facility] Anion Gap 5.0-16.0 Normal (applies to non-numeric resul ts) [facility] BUN 25 mg/dL 7-18 Above high normal [facility] ospital Creatinine,Serum 0.8-1.5 Normal (applies to non-numeric results) [facility] GFR >60 Normal (applies to non-numeric results) [facility] Glucose Level 131 mg/dL 60-99 Above high normal [facility] Reference range is only applicable when patient is fasting Note the following drug interference: Sulfasalazine Sulfapyridine Can see falsely depressed Can see falsely elevated result with up to 17% results with up to 11% decrease in measurement increase in measurement Recommend patients be collected for this test prior to administration of either drug. Calcium 8.5-10.1 Normal (applies to non-numeric resul ts) [facility] ID Date Data Source [id number] 03/17/2020 01:38:20 PM EDT [facility] Name Value Range Interpretation Code Description Data Agueda rce(s) Supporting Document(s) Progress Note [facility] CFISYo1gWlUCZpPo25/JLZauNFXtv9WzYHtmRQm3HInbWTCoL6HqGLM3mT8oDVH1YKgMZcTzDwKpVWY7 lbm [file] [id number] ID Date Data Source [id number] 03/17/2020 01:36:18 PM EDT [facility] Name Value Range Interpretation Code Description Data Agueda rce(s) Supporting Document(s) Color of Cerebral spinal fluid [facility] Clarity of Cerebral spinal fluid [facility] Tube 4 Erythrocytes [#/volume] in Cerebral spinal fluid by Manual count <2 [facility] Nucleated cells [#/volume] in Cerebral spinal fluid by Manual count <5 [facility] Microscopic observation [Identifier] in Cerebral spinal fluid [facility] Cell count and Differential panel - Cerebral spinal fluid [facility] ID Date Data Source [id number] 03/17/2020 01:56:19 PM [facility] Value Range Interpretation Code Description Data Agueda rce(s) Supporting Document(s) Glucose [Mass/volume] in Cerebral spinal fluid 88 mg/dL 40-70 H [facility] ID Date Data Source [id number] 03/17/2020 01:56:19 PM [facility] Value Range Interpretation Code Description Data Agueda rce(s) Supporting Document(s) Protein [Mass/volume] in Cerebral spinal fluid 69 mg/dl 15-45 H [facility] ID Date Data Source [id number] 03/17/2020 11:33:16 AM [facility] Value Range Interpretation Code Description Data Agueda rce(s) Supporting Document(s) Prothrombin time (PT) 12.0 s 12.5-14.9 L [facility] INR in Platelet poor plasma by Coagulation assay 0.88 [facility] Routine intensity oral anticoagulation I NR is typically 2.0-3.0. Target INR must be clinically individualized. ID Date Data Source [id number] 03/17/2020 11:33:16 AM [facility] Value Range Interpretation Code Description Data Agueda rce(s) Supporting Document(s) aPTT in Platelet poor plasma by Coagulation assay 25.2 s 24.0-33. 0 [facility] ID Date Data Source [id number] 03/17/2020 11:37:45 AM [facility] Value Range Interpretation Code Description Data Agueda rce(s) Supporting Document(s) Bicarbonate [Moles/volume] in Serum 26 mmol/L 22-29 [facility] Chloride [Moles/volume] in Serum or Plasma 98 mmol/L 98-107 [facility] Creatinine [Mass/volume] in Serum or Plasma 1.08 mg/dL 0.70-1.20 [facility] Glucose [Mass/volume] in Serum or Plasma 110 mg/dL 70-140 [facility] Potassium [Moles/volume] in Serum or Plasma 4.7 mmol/L 3.4-5.1 [facility] Hemolyzed Sodium [Moles/volume] in Serum or Plasma 138 mmol/L 136-145 [facility] Urea nitrogen [Mass/volume] in Serum or Plasma 19 mg/dL 6-20 [facility] Anion gap 3 in Serum or Plasma 14 mmol/L 8-15 [facility] Osmolality of Serum or Plasma by calculation 289 mosm/kg 275-300 [facility] Creatinine/Urea nitrogen [Mass Ratio] in Serum or Plasma 18 [facility] Calcium [Mass/volume] in Serum or Plasma 9.0 mg/dL 8.6-10.0 [facility] Glomerular filtration rate/1.73 sq M pre dicted among non-blacks [Volume Rate/Area] in Serum or Plasma by Creatinine-based formula (MDRD) 82 mL/min/1.73m2 >60 [facility] Glomerular filtration rate/1.73 sq M pre dicted among blacks [Volume Rate/Area] in Serum or Plasma by Creatinine-based formula (MDRD) >60 [facility] ID Date Data Source [id number] 03/17/2020 12:15:55 PM EDT [facility] Name Value Range Interpretation Code Description Data Agueda rce(s) Supporting Document(s) Leukocytes [#/volume] in Blood by Automated count 10.6 10*3/uL 4-10 H [facility] Erythrocytes [#/volume] in Blood by Automated count 4.93 10*6/uL 4.6- 6.1 [facility] Hemoglobin [Mass/volume] in Blood 14.4 g/dL 13.5-18 [facility] Hematocrit [Volume Fraction] of Blood by Automated count 42.2 % 4 1-53 [facility] Erythrocyte mean corpuscular volume [Entitic volume] by Auto mated count 85.5 fL 80-96 [facility] Erythrocyte mean corpuscular hemoglobin [Entitic mass] by Automated count 29.1 pg 27-33 [facility] Erythrocyte mean corpuscular hemoglobin concentration [Mass/volume] by Automated count 34.0 g/dL 32.0-36.[facility] width [Ratio] by Automated count 16.6 % 11.5-14.5 H [facility] Platelets [#/volume] in Blood by Automated count 278 10*3/uL 150-400 [facility] Differential cell count method - Blood [facility] Neutrophils/100 leukocytes in Blood by Automated count 82 % [facility] Lymphocytes/100 leukocytes in Blood by Automated count 15 % [facility] Monocytes/100 leukocytes in Blood by Automated count 2 % [facility] Neutrophils [#/volume] in Blood by Automated count 8.71 10*3/uL 1.8-7 .0 H [facility] Lymphocytes [#/volume] in Blood by Automated count 1.59 10*3/uL 1.2-4 .0 [facility] Monocytes [#/volume] in Blood by Automated count 0.20 10*3/uL 0-0.8 [facility] Metamyelocytes/100 leukocytes in Blood by Manual count 1 % [facility] Metamyelocytes [#/volume] in Blood by Manual count 0.10 10*3/uL 0-0 H [facility] ID Date Data Source [id number] 03/14/2020 08:09:28 AM EDT [facility] Name Value Range Interpretation Code Description Data Agueda rce(s) Supporting Document(s) Specimen source [Identifier] of Unspecified specimen [facility] SARS-CoV-2 RNA 2018 nCoV Real-Time RT-PCR: NOT DETECTED [facility] Assay Performed [facility] Initial validation was performed by the Centers for Disease Control and Prevention (CDC) and additionally validated by the Dept[facility] of [facility]. Negative results do not preclude SARS-CoV-2 infection and should not be used as the sole basis for patient management decisions.Additional information is available on the following FDA websites for health care providers and patients. https://www.fda.gov/media/650607/download, https://www.fda.gov/media/492888/download. Patients first test for [facility] Patient employed in healthcare setting [facility] Patient has symptoms related to [facility] When did you start to experience these symptoms [Date and time] [Phen X] [facility] Patient was hospitalized because of this condition [facility] patient was admitted to ICU for [facility] Patient resides in a congregate care setting [facility] status [facility] ID Date Data Source [id number] 03/13/2020 08:55:00 AM EDT [facility] Name Value Range Interpretation Code Description Data Agueda rce(s) Supporting Document(s) SARS-CoV-2 RNA [facility] This lab was ordered by [facility] and reported by [facility]. ID Date Data Source [id number] 03/13/2020 08:52:31 AM T [facility] Name Value Range Interpretation Code Description Data Agueda rce(s) Supporting Document(s) Progress Note [facility] JDSCTs7kAdBUMtCe54/FCOxkFLZse9IkGMvaXOz4RBahRPPrQ4XuVGO8gR1jNBN4OCoTFnUzKhHvUPDz lbm [file] AgICAgICAgICAgICAgICAgICAgICAgICAgICAgICAg ICAgICAgICAgICAgICAgICAgICAgICAgICAgICAgICAgICAgICAgICAgICAgICAgICAgDQogICAgICAg ICAgICAgICAgICAgICAgICAgICAgICAgICAgICAgICAgICAgICAgICAgICAgICAgICAgICAgICAgICAg ICAgICAgICAgICAgICAgICAgICAgICAgICAgICAgIC AgDQogICAgICAgICAgICAgICAgICAgICAgICAgICAgICAgICAgICAgICAgICAgICAgICAgICAgICAgIC AgICAgICAgICAgICAgICAgICAgICAgICAgICAgICAgICAgICAgICAgICAgDQogICAgICAgICAgICAgIC AgICAgICAgICAgICAgICAgICAgICAgICAgICAgICAg ICAgICAgICAgICAgICAgICAgICAgICAgICAgICAgICAgICAgICAgICAgICAgICAgICAgICAgDQogICAg ICAgICAgICAgICAgICAgICAgICAgICAgICAgICAgICAgICAgICAgICAgICAgICAgICAgICAgICAgICAg ICAgICAgICAgICAgICAgICAgICAgICAgICAgICAgIC AgICAgDQogICAgICAgICAgICAgICAgICAgICAgICAgICAgICAgICAgICAgICAgICAgICAgICAgICAgIC AgICAgICAgICAgICAgICAgICAgICAgICAgICAgICAgICAgICAgICAgICAgICAgDQogICAgICAgICAgIC AgICAgICAgICAgICAgICAgICAgICAgICAgICAgICAg ICAgICAgICAgICAgICAgICAgICAgICAgICAgICAgICAgICAgICAgICAgICAgICAgICAgICAgICAgDQog ICAgICAgICAgICAgICAgICAgICAgICAgICAgICAgICAgICAgICAgICAgICAgICAgICAgICAgICAgICAg ICAgICAgICAgICAgICAgICAgICAgICAgICAgICAgIC AgICAgICAgDQogICAgICAgICAgICAgICAgICAgICAgICAgICAgICAgICAgICAgICAgICAgICAgICAgIC AgICAgICAgICAgICAgICAgICAgICAgICAgICAgICAgICAgICAgICAgICAgICAgICAgDQogICAgICAgIC AgICAgICAgICAgICAgICAgICAgICAgICAgICAgICAg ICAgICAgICAgICAgICAgICAgICAgICAgICAgICAgICAgICAgICAgICAgICAgICAgICAgICAgICAgICAg IKe3I2vgOVYkTAXvJO3yEOu6Yr9+DVqKZyIaWQX1vdHtgR7EPB4rk1KrKZgmWPQlt9MaOMk3HT0UBDWj KYrxYK1BCWfblk7QGLZgIFWqyCSPq6orPjYgUAM1MO NtWcxhKF4SGLUgL7nqqiDkLBXiNKWUGS5GFzJuK8IenF88ORMHKu5+GAskofKsYaxRKqS0JGJaa9FmBJ e7JD1JKGWuInpui8VdCqYhUASMPSgzQB8ZFFV5JNPnMJWpKc2KPRPiX849rcYaKA6MKg8XSwGfEZ5jln 5NHoXmFPHgAawPEfm0VHwtJK8RwEJnFLyOnl6cajIp jcFIm9TneiHmeLOVsAekHSbgE2WhOSynDe5oSRQcEPXvZv0wIBAfOXG5JkEaNDEYMH9EHLVlNPQcbEXf JGQtVLYVAI3VJVcoIPF7URHktqAvmGZxIMspHH8LZDKkftIvVUzjPFFJNLn+Rm5DRA3aq0TjTHouUMOp GC2qqe7EIIpFNnZgM5D4pYOcU4J1HVqrLc5GWWEtDE EhRIuoPKXUOEubOK8SQM1vbdJ3EU9FvSWqXKKnFGMhqBXkNFa1Q17alREsXHapXS7UHBL+Alban+Pg0KIC LwEMSqEDGaBsYjVDLXRtHoD9SvF4ZRj0IvM5NhKF02sYelbbHtATdoKV0QQB8rZWUiWUWNZI3VcMQigB 1xzoXcUYEzEOWRBeNlF24amAJkHIWeTEA4XGLdVi6J EKXtD0YzrtPdfUuvjcIpBIBrRMHYJL9ARBdmokFlnWEaxZgjLD67rTjuIN0SHv1WUoNjXK2yjr0DtTEa Lu6MOMIoCd8WHZHjYYGoRYWuDWI1QRHbBmEqJBvuNDPmXIAnKCX3FVReYQHcMM0VAcSxLZNhLBskSdJw JTGsANRnfr3ORPVzFQVkMHs3BXSpQENfNYRbLAhjZW MdUTNqEKG1DHVmRYAxXD7VNoUuANZsKFK8ZGxnPKUiFYBdcs1SGBVfKJHeSiVzImImGXVxWCTyJMvmFR VxUVLwXHKrORHsMMMiHL6IOwGiHAXdBEPlWOxrZIKdRLWaua9MOYAcJVOuFuRpSlQfZPEwJXHqFUoiAN VaJTU8LOx6FQGxBIUlKB5VUoZyTWCzMRY6KAcqYVSu PKFiql1GCNTgVUPpGKu7MLSwFYKkVPYzIWdmSIOqMEA6VvT7CABaQOJeYE1CFcIyDNNpFLM5YGZuLCNq GOQxag5YIYUvUUEoExu1EDBqJBSoNEKfBPisTZBsXLQ5YQA0FOChZYJjQP4HTqYiZLQdUGpsIFZeGADp MEDqcx7WCUAeTXXrIsF8QDMhGGRvMCEkAPzyLBWfMC V8JTf5RYXnJWOqOO7KKiJvTBAvWEinVUcoEYQkWGCacz9CYFSnCSAwZAQnHHRpNJSoIRZoGMp6hqXhdK EfFYq4BI6GE0EqdiNnRcZFKb8Pe044BJXoFNGcPr0UX8zhTb2pBZQbLKPKKa8FEJf7MDTuQIFzEDmmPK U7B2HwPSV4I6EqTXWnEXm9ZOfqQqL+IDxlNDFhYTA5 PXU3IJVlBOZ2EXTaVFH7ESP0SXMyFRGuFd8zNTSGDj1+HHyhxSMgvAgoDWJRVaQ5RSL0SIwuCSVICg7R ID Date Data Source [id number] 03/11/2020 04:42:38 PM EDT [facility] Name Value Range Interpretation Code Description Data Agueda rce(s) Supporting Document(s) Progress Note [facility] GUPGQz8gBbTZTrCm34/KQSpcORMbo3WbQIrwPZq9NGvwRWAiH3VzPKL9zV6fPWO2XFrTVkXkMyDwVXZh lbm [file] B4ZxF6MpIwLJTwXmilXqxaQXF+WC8sGIw+Gf6Uh6RbpeE7ikKsCVhlFZE2Gn4DJRMLC9ZGWx== ID Date Data Source [id number] 03/03/2020 09:27:17 AM EDT [facility] Name Value Range Interpretation Code Description Data Agueda rce(s) Supporting Document(s) Progress Note [facility] FGTAPx4jZlZKVbJp05/XNPcbXZQtf1KbMQccERz9NJvgPNVtZ8GbZLG4iH2vMLL7LBbFUsLdLyAeKZTg lbm [file] SPv9QNhoVxTyHpl+EY3tVAf+Ty8Pa5AyzfN5omSrVWxiDCifSZ1WDNSRP7QRXm== ID Date Data Source [id number] 02/10/2020 09:50:44 AM EDT [facility] Name Value Range Interpretation Code Description Data Agueda rce(s) Supporting Document(s) Progress Note [facility] WDNDNw3rVrXAEnSr70/JXBckVINec0NvDBrpEQl6EWwcTSLqI2EhTXU9fI9oMWT2FJyUZgAxQkEeOUXg lbm [file] reXbBwXNcjEV5tYNGILr0+OFmxlRQgzMdvXNFTWlJ9CHB9YCtgYGZEZy3E ID Date Data Source [id number] 02/07/2020 10:18:14 AM EDT [facility] Name Value Range Interpretation Code Description Data Agueda rce(s) Supporting Document(s) Progress Note [facility] SEINFs8yAdKRXfEc36/VCGnuHGPsy4BtBDnvTBh4ZYuxNVEsM5DfYMO0rH9sNXF5PAgZVrGyEoBqXYF0 lbm EtPcoDRbNjWLPpXcjQYlPpTXzuFlyytLMiZW7IiDA6KPGwE05uCANoIPPeV4KbUPA2AXG+Re2SZWEipT OyUW6WUghD8Krop1n5SF9+YP+BwIAhLZKYpCiSMoYBrpMuC+cmfw7Du2THdjfNRzsmi+Mina+fejJMrycS [file] PjHZ0UFv6WZpG9OPV1fQPgOa8QOCxcUzOIZnRvMH2DRUp= ID Date Data Source [id number] 01/06/2020 09:21:12 AM EDT [facility] Name Value Range Interpretation Code Description Data Agueda rce(s) Supporting Document(s) Progress Note [facility] DEWVGv4tAhSNAhZk88/DFLhpOAXgd3JtXYotZAg2GRkoYKPzZ1XwOVH2wO2mQQG0MOwNStHgNuClMuC1 lbm [file] /oLGipLk4aTqbgU+cNEFiuDDeXt6W2dDmF3xGLT7uigRByS6KdaJxqLQ2cgZo0JMVfnsXxL0TlUH/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 I9X8qw1GKy6jkuriAFw50lc02W/eW0CUTKUx6T/FXCU7Ra8k/fCG1Sun553IuxybxeJYULJvJyVscSru voMFETVSM5ohkeERoY1YYrMF80J35heU+Holloway+Dp+6Av A+87vLgh+IgG8+YYPanfWE0u9HX6BxNX2cT/Qf1R/con77WxwXhYhZjvgV72QYU8ulL9l66JPspormOL 44FMqnsrU9PpCFtv9gf67XRKhUZoY0NBFbg3Q4XkktP3i5oSdO2HKgMSmGJC4B/E6MJT80zY79w5Si5B gICaQjkkwM3VT9UmxAV3nZp5erdP7ZNg+jJ859Z+nn nJIi5A8RwI0VM9v6h9mhUTvxAhnLUXDQZhqx+YoTlsnRaPwSvsm2NNBA6eFRQOQAlpb2RgEzjZ1Pesac 3SpGKWK7niFhVvH6bdJUUL0csS+QcPbnLVePypxkL0uXtgjO7PjqPB0bHs5tLnof14owj3pN5hDJmTdi Pj+HLB4/1y3RrbQ1QpuRYbKgDiqQrS16Ntilqu/Frankie [file] AgICAgICAgICAgICAgICAgICAgICAgICAgICAgICAg ICAgICAgICAgICAgICAgICAgICAgICAgICAgICAgICAgDQogICAgICAgICAgICAgICAgICAgICAgICAg ICAgICAgICAgICAgICAgICAgICAgICAgICAgICAgICAgICAgICAgICAgICAgICAgICAgICAgICAgICAg ICAgICAgICAgICAgICAgDQogICAgICAgICAgICAgIC AgICAgICAgICAgICAgICAgICAgICAgICAgICAgICAgICAgICAgICAgICAgICAgICAgICAgICAgICAgIC AgICAgICAgICAgICAgICAgICAgICAgICAgDQogICAgICAgICAgICAgICAgICAgICAgICAgICAgICAgIC AgICAgICAgICAgICAgICAgICAgICAgICAgICAgICAg ICAgICAgICAgICAgICAgICAgICAgICAgICAgICAgICAgICAgDQogICAgICAgICAgICAgICAgICAgICAg ICAgICAgICAgICAgICAgICAgICAgICAgICAgICAgICAgICAgICAgICAgICAgICAgICAgICAgICAgICAg ICAgICAgICAgICAgICAgICAgDQogICAgICAgICAgIC AgICAgICAgICAgICAgICAgICAgICAgICAgICAgICAgICAgICAgICAgICAgICAgICAgICAgICAgICAgIC AgICAgICAgICAgICAgICAgICAgICAgICAgICAgDQogICAgICAgICAgICAgICAgICAgICAgICAgICAgIC AgICAgICAgICAgICAgICAgICAgICAgICAgICAgICAg ICAgICAgICAgICAgICAgICAgICAgICAgICAgICAgICAgICAgICAgDQogICAgICAgICAgICAgICAgICAg ICAgICAgICAgICAgICAgICAgICAgICAgICAgICAgICAgICAgICAgICAgICAgICAgICAgICAgICAgICAg ICAgICAgICAgICAgICAgICAgICAgDQogICAgICAgIC AgICAgICAgICAgICAgICAgICAgICAgICAgICAgICAgICAgICAgICAgICAgICAgICAgICAgICAgICAgIC AgICAgICAgICAgICAgICAgICAgICAgICAgICAgICAgDQogICAgICAgICAgICAgICAgICAgICAgICAgIC AgICAgICAgICAgICAgICAgICAgICAgICAgICAgICAg BRDnKQXfIJXqXSLcJLTlSIEdQQTzJCWiWYSzRNXiKCRpLTLkSWPkAJMpRPd1W1jrIFYbHTCnBT2iHYn1 Jz8+CWbVQcEmYRK2rpPreH4SZM8ej4GdIDykEFHtv8HlCSi4GU4TVOMyDZdjWY0DHJzwst3KJZZqHHGp hAOVh8gbJfSrVDQ3MPOfVynnYY2DQHZmH9nnwjOcCL NoAPHJFIzyCYARSLplJKIVBAAlLKJrEpOjXiRuMISbLIPeCGKWVRE7AVGxOzZkAPTzZNWqKpXtTYSERL 8ZZyLwM1BdyF61PHlUTq0+CXskqtNaWfaKZgX0OKCda0MrKMq4BD8WCKYkZvdzj7KuFlgqKPRKCZxqMY 9LGCJ4VLC3SDTpJo4GCBPoP726gnLbSD9LSk1OBnHx FY4gqx6PUzilKUSuFieOQqq5DFoeWD9IdENgNPcXco7rjxCxuyZKg4JxsvFufKNJZP5rpKACAJ6fnAUs UFSRCECmrMX4UfL2QjBmBxUxWDI5KSOzLS2cIPihFK1TQSE1BYxiNXJtURZtB6qCMbUxGRAiXUCoqEbg IV3DZbBvJ7AchrGafFDpYJWcMNTZKd3+DQplbmRvYm wZVyXpCGDid5HqNEd6RH3HQWChWZvzNJ3WLPSooC2uJIhbOA7POzWkVrEvGDRRTvPcT30dmGLzPPk5A5 VtYmVkZGVkRmlsZXMgPDwvTmFtZXMgWyBdDQogID4+ID4+RBihGO2TZGcdxnDrJYWhNc9RMVPpYMMeQE 9nSASyUGLoS3L5sTfhPTZRLuLsK5fzmljaFN8kVPVm Q213yFyylsHtFWO7TBFmMs9CZXRbFBX1HJJgsBJwJkacEQUQRReqYE8NtHByTRI3rS2rXYqkNLRbZODx H2qISpGqlAivMY59gUizonHpiWVxGIe+Uv2ONE3vo7HdTAp6rvXoALpdNCQfSIubUOWrRSAnYFXjPGP0 QKO1YOZCGnJgFLVrAFKbMDxkUXDiNUFbcr8TBIUyXX I1NuFwIaDlECZnIKGnDEeoJZTlELR6KNS2VWQqTUNsMW6AGhRhVCStKEFwMFbfGFQbRIRlpd7KIAUfSP LqEZivJoSrNGGnQNJkFGmaYSReLIA0PBRfKCTeYZReAR7DFyCcWJDnVIl6JMHtGBIwVTHfit8GGILzPW XiQXhpZBCsBAJxJHAiCZbhHKSzVFFpDFH0WOBmERVu GW3MAjPmZWXnUCMpBrHxSXChJLDczj1AGJYfKCRwFZV5HpNhAQXgXRQrTYygQHJkZGJ8WZU7CTHzOUGf TA3KMkGmEGTbRFq4ZOUrONQxAFElak3UJRUjQDXdFDZ4GvXjDMPkDNYtKBxrVFCnMNEpQZq2EPPgGGJx LA4VYfXnRWNrEfRgKBAtBTKgWZPwqo7BIAXjUMTmCx B9TmLtWPIhOGVxRDghKQWcFQB6RorwWRFySFKnYZ1RBuRjVXDuToH5ZPemQFHwFGImla3HJQJlONWiJj SlQZVyKHGeDJUtYDjoOJEoPAHvMuq2GFNjEWWcBP0FAzSzJTNoQnY3JWUlWMIuHTBfdj4BTAXaQAPqTg x6ERUuXNReIZRiHXkqDRSfJLQ1YFNtARIbTWVuSH3C QaUvZUJiOlVzSqAhCPZsKYNjyr4IRRTkKHGlIOW2TJMyLTGqVSXfLEndPQDcSJG3GAf3DMNkRSUlJP1W IwIqIJOyWyR2XCDqWQTgGQRsni5JBNOqAVV6GmKrMBYuCJNvXINwUYewDNPzAAWbDKD7VUKaQBLpOL5P PmKfQVOiVeJvCSGbYGPyJKMxqq2KWEWeNFL1IUk6VQ RnPEWbZPKfZQpuXBRiNWE4AEldSVRiZRTiDN5XNbEgJLMjXnR8ExUsOWAsKLJwfn9BFRKlHLH6WzIxHw BaDVRqQWNvBImiSFSyRUR7GoMwZCSgKZLlMZ5VCgZvKHNgFmJ5XJsrMJQvPOWcfc1KSBVnYVA4OVTnYF QsMSSiEHTkMPlbKOXzGRJ1WBwyYUPwQQBmNQ5LReOk UUNvBgltAquvBZDjTKDsjp9FnLVaiOoehy3NJRqAWk9PbYcrHWYaXJbgKf7frMP8MUElRSFBZd1WvpTu GSMmLEWAFKatOXJiSZAaENJ1UDN5SDGgYPzvSbDaHIzzKuTtIAN1SKObIbx8JyL4STHrLnQ2VxxpDLN6 VOL1DGXhETQaOOE4TSdfCOCrSqH+RB5tAZv+Ia6Je4UapgE1ypSxONc2TUJ6Yi0MTLICR8MTNj== ID Date Data Source [id number] 11/01/2019 04:51:00 PM EDT [facility] Name Value Range Interpretation Code Description Data Agueda rce(s) Supporting Document(s) Iron FE Level 73 ug/dL 49-181 Normal (applies to non-numeric re sults) [facility] Test Performed By: [facility] [address] [place] [address] Director: Patsy Cardozo MD Total Iron Binding Capacity 343 ug/dL 261-462 Norm al (applies to non-numeric results) [facility] Test Performed By: [facility] [address] [place] [address] Director: Patsy Cardozo MD %Iron Saturation 12.0-55.0 Normal (applies to non-numeric results) [facility] Test Performed By: [facility] [address] [place] [address] Director: Patsy Cardozo MD ID Date Data Source [id number] 11/01/2019 04:51:00 PM EDT [facility] Value Range Interpretation Code Description Data Agueda rce(s) Supporting Document(s) Ferritin 113 ng/mL 17.9-464.0 Normal (applies to non-numeric resul ts) [facility] Test Performed By: [facility] [address] [place] [address] Director: Patsy Cardozo MD ID Date Data Source [id number] 11/01/2019 01:30:00 PM EDT [facility] Name Value Range Interpretation Code Description Data Agueda rce(s) Supporting Document(s) Bilirubin,Total 0.1-1.9 Normal (applies to non-numeric results) [facility] Bilirubin,Direct 0.05-0.20 Normal (applies to non-numeric results) [facility] SGOT(AST) 32 U/L 15-37 Normal (applies to non-numeric resul ts) [facility] Note the following drug interference: Sulfasalazine Sulfapyridine Can see falsely depressed Can see falsely elevated result with up to 10% results with up to 10% decrease in measurement increase in measurement Recommend patients be collected for this test prior to administration of either drug. SGPT(ALT) 89 U/L 12-78 Above high normal [facility] Note the following drug interference: Sulfasalazine Sulfapyridine Can see falsely depressed Can see falsely elevated result with up to 29% results with up to 10% decrease in measurement increase in measurement Recommend patients be collected for this test prior to administration of either drug. Alkaline Phosphatase 105 U/L 38-126 Normal (applies to non-num emilia results) [facility] can increase Alkaline Phosp le vels up to 2 times the normal adult value. Normal values for children and adolescents are 2 to 3 times the normal adult value. Total Protein 6.0-8.2 Normal (applies to non-numeric re sults) [facility] Albumin Level 3.4-5.0 Normal (applies to non-numeric re sults) [facility] ID Date Data Source [id number] 11/08/2019 12:06:00 PM EDT [facility] Name Value Range Interpretation Code Description Data Agueda rce(s) Supporting Document(s) Hepatitis A Ab,IgG result () Normal (applies to no n-numeric results) [facility] [facility] Hepatitis A IgG Ab, S was cancelled on 0 11/08/2019 at 09:27; Unable to perform. No refrigerated specimen to use for Add on Test Performed by: [address] [address] Logistics Loss Prevention Manager: Noe Williamson M.D. Ph.D.; CLIA# [id number] ID Date Data Source [id number] 11/09/2019 09:36:00 AM EDT [facility] Name Value Range Interpretation Code Description Data Agueda rce(s) Supporting Document(s) Hepatitis B Core Tot Ab,S res Negative No rmal (applies to non-numeric results) [facility] Test Performed by: [place] [address] Logistics Loss Prevention Manager: Noe Williamson M.D. Ph.D.; CLIA# [id number] ID Date Data Source [id number] 11/08/2019 11:32:00 AM EDT [facility] Name Value Range Interpretation Code Description Data Agueda rce(s) Supporting Document(s) Hepatitis B Core Tot Ab,S res Negative No rmal (applies to non-numeric results) [facility] Test Performed by: [place] [address] Logistics Loss Prevention Manager: Noe Williamson M.D. Ph.D.; CLIA# [id number] ID Date Data Source [id number] 11/08/2019 11:32:00 AM EDT [facility] Value Range Interpretation Code Description Data Agueda rce(s) Supporting Document(s) Hepatitis A Ab,IgG result () Normal (applies to no n-numeric results) [facility] Hepatitis A IgG Ab, S was cancelled on 0 11/08/2019 at 09:27; Unable to perform. No refrigerated specimen to use for Add on Test Performed by: [place] [address] Logistics Loss Prevention Manager: Noe Williamson M.D. Ph.D.; CLIA# [id number] ID Date Data Source [id number] 11/01/2019 06:33:00 PM EDT [facility] Name Value Range Interpretation Code Description Data Agueda rce(s) Supporting Document(s) FESAT Iron result 73 ug/dL 49-181 Normal (applies to non-numeri c results) [facility] Test Performed By: [facility] [address] [place] [address] Director: Patsy Cardozo MD FESAT TIBC result 343 ug/dL 261-462 Normal (applies to non-numeri c results) [facility] Test Performed By: [facility] [address] [place] [address] Director: Patsy Cardozo MD FESAT %Iron Saturation result 12.0-55.0 No rmal (applies to non-numeric results) [facility] Test Performed By: [facility] [address] [place] [address] Director: Patsy Cardozo MD ID Date Data Source [id number] 11/01/2019 06:33:00 PM EDT [facility] Value Range Interpretation Code Description Data Agueda rce(s) Supporting Document(s) Ferritin result 113 ng/mL 17.9-464.0 Normal (applies to non-numeric results) [facility] Test Performed By: [facility] [address] [place] [address] Director: Patsy Cardozo MD ID Date Data Source [id number] 11/01/2019 06:33:00 PM EDT [facility] Value Range Interpretation Code Description Data Agueda rce(s) Supporting Document(s) Hepatitis C Virus Ab result Nonreactive Norm al (applies to non-numeric results) [facility] Test Performed By: [facility] [address] [place] [address] Director: Patsy Cardozo MD ID Date Data Source [id number] 11/01/2019 06:33:00 PM EDT [facility] Value Range Interpretation Code Description Data Agueda rce(s) Supporting Document(s) Hep Bs Ag result T-Test Nonreactive Normal (applies to non -numeric results) [facility] Test Performed By: [facility] [address] [place] [address] Director: Patsy Cardozo MD ID Date Data Source [id number] 11/01/2019 06:33:00 PM EDT [facility] Value Range Interpretation Code Description Data Agueda rce(s) Supporting Document(s) Hepatitis B Surface Ab result Normal (applies t o non-numeric results) [facility] Test Performed By: [facility] [address] [place] [address] Director: Patsy Cardozo MD Reference Value Protected Immunity: Reactive Non-Immunity : Nonreactive ID Date Data Source [id number] 11/01/2019 05:49:00 PM EDT [facility] Name Value Range Interpretation Code Description Data Agueda rce(s) Supporting Document(s) Hep C Ab-T Test Nonreactive Normal (applies to non-numeric results) [facility] Test Performed By: [facility] [address] [place] [address] Director: Patsy Cardozo MD ID Date Data Source [id number] 11/01/2019 05:49:00 PM EDT [facility] Name Value Range Interpretation Code Description Data Agueda rce(s) Supporting Document(s) Hep Bs Ag Result T-Test Nonreactive Normal (applies to non -numeric results) [facility] Test Performed By: [facility] [address] [place] [address] Director: Patsy Cardozo MD ID Date Data Source [id number] 11/01/2019 05:49:00 PM EDT [facility] Name Value Range Interpretation Code Description Data Agueda rce(s) Supporting Document(s) Hep Bs Ab Numeric result Normal (applies to non -numeric results) [facility] Reference Value Protected Immunity: >10 mIU/mL Non-Immunity : <10 mIU/mL Hep Bs Ab result T-Test Normal (applies to non- numeric results) [facility] Test Performed By: [facility] [address] [place] [address] Director: Patsy Cardozo MD Reference Value Protected Immunity: Reactive Non-Immunity : Nonreactive ID Date Data Source [id number] 10/07/2019 12:20:00 PM EDT [facility] ([facility] ) Name Value Range Interpretation Code Description Data Agueda rce(s) Supporting Document(s) ABG pH (Arterial) 7.395 units 7.350-7.450 Normal (applie s to non-numeric results) [facility] ([facility], ) ABG Partial Pressure Co2 35.0 mmHg 35.0-45.0 Normal (applies to non-numeric results) [facility] ([facility]) ABG Partial Pressure O2 73.8 mmHg 75.0-100.0 Below low normal [facility] ([facility]) ABG Hco3 21.0 meq/L 22.0-26.0 Below low normal [facility] ( [facility]) ABG Base Excess -3.2 Below low normal [facility] ([facility]) ABG Total Co2 22.0 meq/L 22.0-29.0 Normal (applies to non-numeric re sults) [facility] ([facility]) ABG Standard Hco3 21.7 meq/L 22.0-26.0 Below low normal [facility] ([facility]) ABG O2 Saturation 94.4 % 95.0-99.0 Below low normal [facility] ([facility]) ID Date Data Source [id number] 10/09/2019 02:16:00 PM EDT [facility] Hematopathology Report See Addendum [facility] w[facility] JHON PATEMRN: [id number] Number: [id number] Date: 10/07/2019 10:30Received Date: 10/08/2019 14:35Physician(s): JOHNNA GIL MD ADJAPONG, OPOKU,MDSpecimen(s) ReceivedA: Bone Marrow, Flow Cytometry, 1 GREEN BONE MARROW, 1 PB SMEAR and 1aspirate smearClinical HistoryInflammatory polyneuropathy. Assess for clonal plasma cells or aparaprotein.TEST REQUESTED/PERFORMED: Flow Cytometry Analysis DiagnosisFlow cytometry of bone marrow: No evidence of leukemia, non- Hodgkinlymphoma, or plasma cell neoplasm.Anuradha Overton MD ; Resident Patho logistElectronically Signed By Audrey Mathis M.D. Attending Pathologist 10/09/2019 14:16:26The attending pathologist named above attests that he/she has personallyreviewed the relevant preparation(s) for the specimen(s) and rendered thefinal diagnosis. Addendum 10/14/2019 ADDENDUM:Cytogenetic analysis of this specimen (see [id number]) yielded the followingresult:Karyotype: 46,XY[20] (normal male karyotype). Addendum Electronically Signed By: Mateo Atkins M.D., Ph.D. 10/14/2019 16:41 ProceduresFlow Cytometry Date Ordered:10/08/2019 Status: Signed Out10/09/2019 InterpretationPERIPHERAL BLOOD: CBC performed at [facility] on 10/07/19.WBC 7.1 K/uLRBC 4.92 M/uLHgb 14.2 g/dLHct 42.7 %MCV 86.8 fLMCH 28.9 pgMCHC 33.3 g/dLRDW 13.8 %Platelets 272 K/uLDifferential Count (100 cells):35 % Neutrophils 6 % Eosinophils 1 % Faxxejxxa55 % Lymphocytes 3 % Monocytes-------100 % A peripheral blood film is reviewed. BONE MARROW ASPIRATE:Differential Count (100 cells):38 % Erythroid Precursors 2 % Blasts 1 % Promyelocytes 7 % N. Nsontyhvob40 % N. Metamyelocytes and Band Forms27 % Neutrophils 1 % Yyuwzilitny60 % Lymphocytes 2 % Monocytes--------100 % Lymphoid Panel: The following markers were assayed: CD45 (gate), CD2, CD3, CD4, CD5, CD7,CD8, CD10, CD19, CD20,CD33, CD34, CD38, CD56, CD57, CD64, CD117, CD123, HLA-DR, [place], andLambda.# events: [id number]: 97%Flow Cytometry Dif ferential (CD45/SSC)Lymphocyte [place]: 10%CD45 dim [place]: 2%Monocyte [place]: 2%Granulocyte [place]: 74%Nucleated/Erythroid [place]: 7%The lymphocyte gate showsB- cells (CD19): 7%T-cells (CD3): 88%NK-cells (CD3-/CD56+): 3%[place]/Lambda Ratio: 1.3CD4/CD8 Ratio: 0.9Results: (expressed as % of lymphocyte gate)T-cell Markers: CD2 = 89, CD3 = 88, CD3/CD4 = 41, CD3/CD8 = 45, CD5 = 86,CD7 = 83, CD3/57 = 15B-cell markers: [place] = 4, Lambda = 2, CD19 = 6, CD20 = 11, CD19/10 = 2,CD19/CD5 = 1, CD38/CD20 = 7Light chain as % of B-Cells: CD19/[place] = 46, CD19/Lambda = 30,CD19/CD5/[place] = 6, CD19/CD5/Lambda = 1CD19/CD10/[place] = 11, CD19/CD10/Lambda = 10NK cell Markers: CD56 = 6, CD57 = 13Other Markers: CD10 = 3, CD38 = 44Results: (expressed as % of CD45 dim gate)T-cell Markers: CD2 = 39, CD3 = 31, CD3/CD4 = 17, CD3/CD8 = 18, CD5 = 3,CD7 = 37, CD3/57 = 9B-cell markers: [place] = 5, Lambda = 1, CD19 = 51, CD20 = 9, CD19/10 = 56,CD19/CD5 = 0, CD38/CD20 = 9Light chain as % of B-Cells: CD19/[place] = 4, CD19/Lambda = 1,CD19/CD10/[place] = 5, CD19/CD10/Lambda = 1NK cell Markers: CD56 = 3, CD57 = 12Basophil Markers: CD123 (HLA-DR-) = 3Other Markers: CD10 = 61, CD38 = 96, CD33 = 25, CD34 = 42, CD64 = 6, CD117= 14, CD123 = 33, HLA-DR = 83Myeloma Panel The following markers were assayed: CD45 (cell gate), CD138 (plasma cellgate), CD19, CD20, CD38, CD56, cytoplasmic [place], and cytoplasmic Lambda.(Please note, that Cytoplasmic [place] and Cytoplasmic Lambda are used todetect plasma cells, while surface [place] and Lambda are for lymphocytes).# events: [id number]: Routinely a minimum of 500,000 events are collected in each paneltube. Due to sample cellularity and/or processing this number was notachievable for this sample.Flow Cytometry Differential:Lymphocyte [place]: 12%CD45 dim [place]: 1%Monocyte [place]: 6%Granulocyte [place]: 66%NRBC [place]: 8%CD138 Plasma Cell [place]: 0%Results: (expressed as % of total CD138+ plasma cell gate)CD38 = 82, CD56 = 4, CD38/56 = 4, CD19 = 34, CD20 = 1Cytoplasmic [place]/CD138 = 45, Cytoplasmic Lambda/CD138 = [id number]-WncblvadUvfhnrrescu consist predominantly of T cells with normal expression of panT-cell markers and a normal CD4/CD8 ratio, normal proportions of NK andcytotoxic T cells, and polyclonal B cells.CD34+ blasts comprise fewer than 1% of cells studied. Blasts, monocytes,and granulocytes show no definitive immunophenotypic aberrancies.Plasma cell-associated markers show polyclonal plasma cells with a normalphenotype.Procedure Electronically Signed By:Audrey Mathis M.D.10/09/2019 This report may include one or more immunohistochemical stain/fluorochromeconjugated monoclonal antibody results that use analyte specific reagents.All positive and negative controls have been reviewed by the attendingpathologist and are satisfactory. The tests were developed and theirperformance characteristics determined by [facility] Pathology department.They have not been cleared or approved by the US Food and DrugAdministration. The FDA has determined that such clearance or approval isnot necessary. Name Value Range Interpretation Code Description Data Agueda rce(s) Supporting Document(s) ID Date Data Source [id number] 10/09/2019 10:48:49 AM EDT [facility] Name Value Range Interpretation Code Description Data [facility] rce(s) Supporting Document(s) Flow cytometry study [facility] ID Date Data Source [id number] 10/11/2019 11:51:00 AM [facility] Cytogenetics ReportName: MADISON PATEMRN: [id number] Number: [id number] Date: 10/07/2019 00:00Received Date: 10/08/2019 14:29Physician(s): JOHNNA GIL MD ADJAPONG, OPOKU,PHANpecimen(s) ReceivedA: Bone Marrow - Karyotype analysis and FISHClinical Ezuvpbn23-gcie-mdq 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 Assess for clonalplasma cells or a paraprotein.TEST REQUESTED/PERFORMED: Karyotype Analysis and Fluorescence in situhybridization - FISH DiagnosisCYTOGENETIC RESULTS: 46,XY[20]INTERPRETATION: A normal male karyotype was observed in twenty metaphases analyzed. Withinthe limits of the resolution of this karyotype analysis, no structuraland/ or numerical chromosome aberration was detected. The FISH study wascanceled by Dr. Ambrose Mathis. Please correlate with concurrent Hematopathologyreport ([id number]).Electronically Signed By Lupe Mcadams, Ph.D., [facility], Director ofCytogenetics 10/11/2019 11:51:24Gross DescriptionDATA: SPECIMEN TYPE: BONE MARROW CULTURE TYPE: 24 HOUR UNSTIMULATED METAPHASES COUNTED AND ANALYZED: 20 METAPHASES KARYOTYPED: 2BAND RESOLUTION: 350-500ISCN Nomenclature: 46,XY[20] Name Value Range Interpretation Code Description Data Agueda rce(s) Supporting Document(s) ID Date Data Source [id number] 09/11/2019 04:20:00 PM EDT [facility] Name: JHON PATE [facility] Rec #: [id number] : 1975 Age/Sex: 44M Date of Service: 09/11/19 PHYSICIAN CHART Physician Documentation [facility] Name: Jhon Pate Age: 44 yrs Sex: Male : 1975 Arrival Date: 09/11/2019 Time: 16:20 Bed D6 Private MD: Mateo Rodríguez S ED Physician Rossana Garnett HPI: 09/10 17:23 This 44 yrs old Male presents to ER via Walk-In cpg with complaints of Cough, Shortness Of Breath. 17:24 The patient or guardian reports cough, that is cpg intermittent, with no sputum, difficulty breathing. Onset: The symptoms/episode began/occurred acute on chronic, 2 day(s) ago. Severity of symptoms: At their worst the symptoms were moderate, just prior to arrival, in the emergency department the symptoms are unchanged. Modifying factors: The symptoms are alleviated by nothing, the symptoms are aggravated by exertion. Associated signs and symptoms: Pertinent positives: chest pain, Pertinent negatives: chills fever. The patient has experienced a previous episode. Jhon presents with complaints of increasing respiratory distress over the last 48 hours. He is [facility]. 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 He is not on home oxygen and takes his nebulizers regularly. His last nebulizer treatment was this morning. He was admitted last June for human metapneumovirus that required high doses of oxygen. At that point he needed BiPAP and was weaned off over the next several days. He has history of hypertension, insomnia, kidney stones, obstructive sleep apnea and was prescribed CPAP. He does not use a CPAP machine. He notes he is on daily prednisone. Historical: - Allergies: Tape (Hives); - Home Meds: 1. amlodipine 2.5 mg Oral tab 1 tab once daily 2. aspirin 81 mg Oral TbEC 1 tab once daily 3. baclofen 10 mg Oral tab 1.5 tab 3 times per day 4. calcium carbonate 500 mg calcium (1,250 mg) Oral cap 5. cyclobenzaprine 5 mg Oral tab 1 tab daily 6. duloxetine 30 mg Oral cpDR 1 cap once daily 7. gabapentin 300 mg Oral Tb24 3 tab three times a day 8. gabapentin 600 mg Oral tab 1 tab 3 times per day 9. hydrochlorothiazide 25 mg Oral tab 1 tab once daily 10. ipratropium bromide 0.02 % inhalation soln 1.25 mL 3 times per day 11. metoprolol succinate 100 mg CSpX 1 cap once daily 12. pantoprazole 40 mg Oral TbEC 1 tab 2 times per day 13. potassium chloride 20 mEq Oral TbER 1 tab once daily 14. prednisone 10 mg Oral tab 2 tabs once daily 15. ropinirole 1 mg Oral tab 1 tab 16. sertraline 50 mg Oral tab 1 tab once daily 17. sulfamethoxazole-trimethoprim 800-160 mg Oral tab 1 tab 4 times per day three times per week 18. testosterone cypionate 200 mg/mL intramuscular oil 0.25 mL every 2 wks 19. trazodone 50 mg Oral tab 1 tab at bedtime 20. Ventolin HFA 90 mcg/actuation Nebulizer HFAA 2 puffs Every 4 hours, PRN Patient is out of medication at home 21. zolpidem 5 mg Oral tab 1 tab once daily - PMHx: GERD; HTN - hypertension; insomnia; KIDNEY STONES; - PSHx: Appendectomy; Cholecystectomy; knee-left; - Med Reconciliation:: Green Alert: The patient's med list is complete to the best of the nurse's/provider's knowledge. Medications reviewed, completed by nurse verbally from patient/family. - Immunization history: Flu vaccine is up to date. Pneumococcal vaccine is up to date. - : No immediate family members are acutely ill. - Advance directive: There is no existing advanced directive. Information offered. - Family History:: mother is healthy, Father has a history of cardiac disorder. - Social History: Smoking status (Tobacco): Patient states he/she has never smoked tobacco. Preferred Language: Peruvian. ROS: 17:27 Constitutional: See HPI. Cardiovascular: See HPI. cpg Respiratory: See HPI. Abdomen/GI: Negative for abdominal pain, nausea, vomiting, diarrhea, constipation. : Negative for urinary symptoms. Skin: Negative for rash, swelling, acute changes. Neuro: Negative for acute changes, altered mental status. All other systems are negative. Exam: 17:28 Constitutional: The patient appears alert, appears to be cpg awake, is moderately distressed, is obviously uncomfortable, well hydrated, appears well nourished. 17:28 Eyes: Sclera: icterus, is not appreciated. 17:28 ENT: External ear(s): are unremarkable, no acute changes, Ear canal(s): are normal, TM's: bulging, is not appreciated, decreased mobility, is not appreciated, fluid levels, is not appreciated. 17:28 Neck: Lymph nodes: no appreciated lymphadenopathy. 17:28 Cardiovascular: Rate: tachycardic, actual rate is 108 bpm, Rhythm: regular, Pulses: Pulses are 2+ in right radial artery and left radial artery. Heart sounds: normal, normal S1and S2, no murmur. 17:28 Respiratory: moderate respiratory distress is noted, Respirations: labored breathing, that is moderate, Breath sounds: wheezing, that is moderate, is scattered, decreased breath sounds, that are moderate, are located in both bases. 17:28 Abdomen/GI: Inspection: obese, no bruising noted, negative for distension, scar(s), no scars are appreciated, Striae noted, Bowel sounds: active, all quadrants, Palpation: abdomen is soft and non- tender, in all quadrants. 17:28 : Bladder: distension, is not appreciated. 17:28 Skin: Turgor: is excellent. 17:28 Neuro: Exam negative for focal neuro deficits, motor deficits, Orientation: is normal. 17:28 Psych: Behavior/mood is pleasant, cooperative. Vital Signs: 16:26 BP 156 / 100; Pulse 108; Resp 20; Temp 97.0(TE); Pulse Ox md1 95% on R/A; Weight 106.59 kg; Height 5 ft. 8 in. (172.72 cm); Pain 7/10; 17:42 BP 135 / 93; Pulse 104; Resp 22; Pulse Ox 95% on 3 lpm NC; alc 18:49 BP 132 / 92; Pulse 101; Resp 22; Pulse Ox 95% on 3 lpm NC; alc 19:14 BP 135 / 86; Pulse 101; Resp 20; Pulse Ox 95% on 3 lpm NC; alc 16:26 Body Mass Index 35.73 (106.59 k g, 172.72 cm) md1 [place] Coma Score: 17:28 Eye Response: spontaneous(4). Verbal Response: oriented(5). cpg Motor Response: obeys commands(6). Total: 15. MDM: 16:29 Patient medically screened. cpg 18:05 Case presented to: Dr. Rossana Garnett. Data reviewed: vital cpg signs, nurses notes, old medical records, lab test result(s), EKG, radiologic studies, plain films. Test interpretation: by ED physician or midlevel provider: plain radiologic studies, ECG. Counseling: I had a detailed discussion with the patient and/or guardian regarding: lab results, radiology results, diagnosis. ED course: Jhon has been stable while in the department. He received a total 16 inhalations and his symptoms improved. His lab work is very reassuring. He is not acidotic and has not compensating according to his VBG. He continues with 2 L nasal cannula seems to be helping him. Sats remain around 95%. We are waiting for the respiratory panel. If the respiratory panel is reassuring, I will tested for [place] at 19 and discharge him on self-isolation. I will also order a personal pulse ox machine for him at the request of Dr. Casas, ED attending. I did discuss the patient's case with Dr. Casas and we are in agreement on the plan. 19:07 Medication response: The patient's symptoms have improved. cpg Response to treatment: the patient's symptoms have markedly improved after treatment, and as a result, I will discharge patient. ED course: Respiratory panel is negative. COVID 19 screening was sent. Patient will be discharged on self-isolation for 14 days and I increased his prednisone to 40 mg daily for the next 3 days. I want him to call his PCP, Dr. Rodríguez, tomorrow for follow-up. He a lso understands if his symptoms worsen such as chest pain, shortness of breath, or if he is having severe difficulty breathing, he is to return. 04 16:47 Order name: B-Type Natriuretic Peptide - BNP; Complete cpg Time: 18:04 09/10 18:04 Interpretation: BNP < 5. cpg 09/10 16:47 Order name: Cbc With Auto Differential; Complete Time: 18:03cpg 09/10 18:03 Interpretation: WBC 7.6; HGB 15.9; HCT 45.9; PLT 323. [facility] [place] 09/10 16:47 Order name: Comprehensive Metabolic Prof.; Complete Time: cpg 18:05 09/10 18:05 Interpretation: NA 136; K 3.8; CL 103; CO2 27.0; BUN 18; cpg GAP 6.0; CREAT 1.07; GLU 105. 09/10 16:47 Order name: D-Dimer; Complete Time: 18:03 [facility] [place] 09/10 18:03 Interpretation: D-Dimer Quant 326. [facility] [place] 09/10 16:47 Order name: Lipase; Complete Time: 18:05 [facility] [place] 09/10 18:05 Interpretation: LIP 91. [facility] [place] 09/10 16:47 Order name: MG (Magnesium); Complete Time: 18:05 [facility] [place] 09/10 18:05 Interpretation: MG 2.10. cpg 09/10 16:47 Order name: Partial Thromboplastin Time; Complete Time: cpg 18:03 09/10 18:03 Interpretation: PTT 32.4. cpg 09/10 16:47 Order name: Prothrombin Time; Complete Time: 18:03 [facility] [place] 09/10 18:03 Interpretation: INR 1.04; PT 11.9. cpg 09/10 16:47 Order name: Troponin I; Complete Time: 18:03 [facility] [place] 09/10 18:03 Interpretation: TROP I < 0.045. cpg 09/10 16:47 Order name: UA.; Complete Time: 18:00 cpg 09/10 18:00 Interpretation: Ur Color Yellow; Ur Clarity Clear; Ur Spec cpg gravity 1.021; Ur PH 5.0; Ur Protein Negative; Ur Glucose Negative; Ur Ketones Negative; Ur Blood Negative; Ur Bilirubin Negative; Ur Urobilinogen 0.2; Ur Leuk Est Negative; Ur Nitrite Negative. 09/10 16:47 Order name: Respiratory Panel (Use Workup) [facility] [place] 09/10 17:18 Order name: Lactic Acid; Complete Time: 18:00 [facility] [place] 09/10 18:00 Interpretation: Lactic 1.4. [facility] [place] 09/10 17:18 Order name: VBG; Complete Time: 18:00 [facility] [place] 09/10 18:00 Interpretation: VBG PH 7.40; VBG PCO2 43; VBG PO2 47; VBG cpg HCO3 26.6. 09/10 17:18 Order name: Blood Culture - Venous [facility] [place] 09/10 16:47 Order name: CXR Portable (Chest Pain) [facility] [place] 09/10 16:47 Order name: Emergency Room EKG Order - Use EKG Work-Up cpg /Quick Select; Complete Time: 17:11 09/10 16:47 Order name: Cardiology EKG Interpretation - Choose Reason cpg for Test 09/10 16:47 Order name: Iv Saline Lock; Complete Time: 17:11 [facility] [place] 09/10 16:47 Order name: Place Patient On Monitor; Complete Time: 17:11 [facility] [place] 09/10 16:47 Order name: Collect nasal swab; Complete Time: 17:11 [facility] [place] 09/10 17:18 Order name: Oxygen - 2L Nasal Cannula; Complete Time: 17:27 cpg Dispensed Medications: 17:16 Drug: Aspirin 324 mg [aspirin 81 mg chewable tablet (4 alc tabs)] Route: PO; 18:15 Follow up: Response: No adverse reaction [facility] 17:23 Drug: Magnesium Sulfate 2 grams [magnesium sulfate 2 alc gram/50 mL (4 %) in water intravenous piggyback] Route: IVPB; Site: right antecubital; 18:14 Follow up: IV Status: Completed infusion; IV Intake: 100ml [facility] 18:03 Drug: Ventolin 8 puffs [Ventolin HFA 90 mcg/actuation jb7 aerosol inhaler (8 puffs)] Route: Inhalation; 18:49 Drug: predniSONE 20 mg [prednisone 20 mg tablet (1 tabs)] alc Route: PO; 19:17 Follow up: Response: No adverse reaction alc Disposition Summary: 09/11/19 19:10 Discharge Ordered Location: Home/Self Care cpg Condition: Good cpg Diagnosis - Viral Upper Respiratory Infection (URI) cpg Followup: cpg - With: Mateo Rodríguez - When: Tomorrow - Reason: Recheck today's co mplaints Discharge Instructions: - Discharge Summary Sheet cpg - Upper Respiratory Infection, Adult cpg Forms: - Medication Reconciliation cpg Prescriptions: - Prednisone 20 mg Oral Tablet - take 1 tablet by ORAL route once daily for 3 days; cpg 3 tablet; Refills: 0, Product Selection Permitted Addendum: 09/21/2019 20:47 Attestation: I discussed the plan of care with Mid-Level t Provider and agree with what they have documented. I have reviewed relevant laboratory values and/or imaging studies. I have reviewed and agree with the nursing records. The care plan articulated in the discharge instructions is consistent with our discussion of the patient's case. Signatures: Dispatcher [employer] EDMagdalena Gama, SATINDER CONTRACT RECRUITER Rossana Ndiaye MD MD jtv Bond, Jarrett RN RN jb7 Maris Dowling RN RN md1 Blanca Ardon RN RN alc Name Value Range Interpretation Code Description Data Agueda rce(s) Supporting Document(s) ID Date Data Source [id number] 09/11/2019 04:20:00 PM EDT [facility] Name: JHON PATE [facility] Rec #: [id number] : 1975 Age/Sex: 44M Date of Service: 09/11/19 NURSE CHART Nurse's Notes [facility] Name: Jhon Pate Age: 44 yrs Sex: Male : 1975 Arrival Date: 09/11/2019 Time: 16:20 Bed D6 Private MD: Mateo Rodríguez S Diagnosis: Viral Upper Respiratory Infection (URI) Presentation: 09/10 16:24 Transition of care: patient was not received from another md1 setting of care. Presenting complaint: Patient states - that he has had a cough and shortness of breath for the past 2 days. States that he has also had "night sweats" but unsure if he has had a fever. Have you travelled in the last 30 days? No. Have you had contact with an individual with a confirmed diagnosis of Ebola or COVID-19? No. 16:24 Method Of Arrival: Walk-In md1 16:24 Acuity: Urgent - 3 md1 Triage Assessment: 16:25 SEPSIS SCREEN: A Confirmed or Suspected Infection is md1 Unknown, SIRS or Sepsis criteria is not present. Suicide Screening: Have you had thoughts of harming yourself or others? No. The patient appears to have some mild discomfort, The patient is cooperative. Patient states the pain is currently a 7 / 10 The patient reports his/her pain at its worst was 10 out of 10 on a 1- 10 pain scale. The patient complains of pain in chest. The patient states the pain began 2days ago. The quality of the pain is described as "tightness", The pain is described as continuous. Neuro: Level of Consciousness is awake, alert, obeys commands, Patient is oriented to person, place and time. Respiratory: the patient has mild shortness of breath. GI: No deficits noted. Historical: - Allergies: Tape (Hives); - Home Meds: 1. amlodipine 2.5 mg Oral tab 1 tab once daily 2. aspirin 81 mg Oral TbEC 1 tab once daily 3. baclofen 10 mg Oral tab 1.5 tab 3 times per day 4. calcium carbonate 500 mg calcium (1,250 mg) Oral cap 5. cyclobenzaprine 5 mg Oral tab 1 tab daily 6. duloxetine 30 mg Oral cpDR 1 cap once daily 7. gabapentin 300 mg Oral Tb24 3 tab three times a day 8. gabapentin 600 mg Oral tab 1 tab 3 times per day 9. hydrochlorothiazide 25 mg Oral tab 1 tab once daily 10. ipratropium bromide 0.02 % inhalation soln 1.25 mL 3 times per day 11. metoprolol succinate 100 mg CSpX 1 cap once daily 12. pantoprazole 40 mg Oral TbEC 1 tab 2 times per day 13. potassium chloride 20 mEq Oral TbER 1 tab once daily 14. prednisone 10 mg Oral tab 2 tabs once daily 15. ropinirole 1 mg Oral tab 1 tab 16. sertraline 50 mg Oral tab 1 tab once daily 17. sulfamethoxazole-trimethoprim 800-160 mg Oral tab 1 tab 4 times per day three times per week 18. testosterone cypionate 200 mg/mL intramuscular oil 0.25 mL every 2 wks 19. trazodone 50 mg Oral tab 1 tab at bedtime 20. Ventolin HFA 90 mcg/actuation Nebulizer HFAA 2 puffs Every 4 hours, PRN Patient is out of medication at home 21. zolpidem 5 mg Oral tab 1 tab once daily - PMHx: GERD; HTN - hypertension; insomnia; KIDNEY STONES; - PSHx: Appendectomy; Cholecystectomy; knee-left; - Med Reconciliation:: Green Alert: The patient's med list is complete to the best of the nurse's/provider's knowledge. Medications reviewed, completed by nurse verbally from patient/family. - Immunization history: Flu vaccine is up to date. Pneumococcal vaccine is up to date. - : No immediate family members are acutely ill. - Advance directive: There is no existing advanced directive. Information offered. - Family History:: mother is healthy, Father has a history of cardiac disorder. - Social History: Smoking status (Tobacco): Patient states he/she has never smoked tobacco. Preferred Language: Peruvian. Screenin:29 AUDIT 1. How often do you have a drink containing alcohol? md1 Never (0 points). Drug Abuse Screening Test: 1. Have you used drugs other than those required for medical reasons? No (0 points), screen is complete, no risk. Abuse screen: Denies threats or abuse. Nutritional screening: No deficits noted. Patient has no identifiable fall risk (Dobson Scale: 0 points). Assessment: 17:14 Cardiovascular: Rhythm is sinus tachycardia. alc 17:25 The patient appears to have some mild discomfort, The alc patient is behaving appropriately according to age, cooperative, pleasant. The patient reports that he/she has been having chills, having sweats, The patient denies that he/she has been feeling like he/she has had a fever, feeling ill, fatigued. Respiratory: Airway is patent. Respiratory effort is labored, Increased WOB, with nasal flaring, Breath sounds are diminished bilaterally. Breath sounds with wheezes bilaterally. Patient reports shortness of breath cough that is non-productive, air hunger labored breathing. GI: No deficits noted. 18:04 Respiratory: Breath sounds are clear Breath sounds are jb7 diminished in left posterior lower lobe and right posterior lower lobe. 18:49 Reassessment: The patient's attending provider has been alc notified of the patient's condition. The patient appears to have some mild discomfort, The patient is behaving appropriately according to age, cooperative, pleasant. Respiratory: Airway is patent. Respiratory effort is labored, Breath sounds are diminished bilaterally. Patient reports shortness of breath. 18:51 Patient does not have PNA, antibiotics not necessary at alc this time. Vital Signs: 16:26 BP 156 / 100; Pulse 108; Resp 20; Temp 97.0(TE); Pulse Ox md1 95% on R/A; Weight 106.59 kg; Height 5 ft. 8 in. (172.72 cm); Pain 7/10; 17:42 BP 135 / 93; Pulse 104; Resp 22; Pulse Ox 95% on 3 lpm NC; alc 18:49 BP 132 / 92; Pulse 101; Resp 22; Pulse Ox 95% on 3 lpm NC; alc 19:14 BP 135 / 86; Pulse 101; Resp 20; Pulse Ox 95% on 3 lpm NC; alc 16:26 Body Mass Index 35.73 (106.59 kg, 172.72 cm) md1 Pe[place]ody Coma Score: 17:28 Eye Response: spontaneous(4). Verbal Response: oriented(5). cpg Motor Response: obeys commands(6). Total: 15. ED Course: 16:23 Patient arrived in ED. jt3 16:23 Mateo Rodríguez is Private Physician. md1 16:25 Triage completed. md1 16:25 Blanca Ardon, RN is Primary Nurse. alc 16:27 Arm band placed on right wrist. Patient has correct armband md1 on for positive identification. 16:29 Magdalena Turner, SATINDER is PHCP. cpg 16:29 Rossana Garnett MD is Attending Physician. cpg 17:11 Cardiology EKG Interpretation - Choose Reason for Test Sent.alc 17:11 Labs drawn by ED staff. First set of blood cultures drawn alc Second set of blood cultures drawn by il Urine collected. Clean catch specimen. An EKG was obtained and reviewed by Magdalena Turner CONTRACT RECRUITER. Inserted saline lock: 20 gauge in right antecubital area. 17:11 A swab for the respiratory panel was collected by Blanca Ardon RN. 17:13 Radiology: a portable X-ray was completed at 17:13. alc 17:27 Oxygen administration via nasal cannula & 3L/min. alc 17:43 No procedures ordered. alc 19:05 Remi Agustin, PERI is Primary Nurse. skb 19:08 Mateo Rodríguez is Referral Physician. cpg 19:16 Discontinued IV bleeding controlled, pressure dressing alc applied. Administered Medications: 17:16 Drug: Aspirin 324 mg [aspirin 81 mg chewable tablet (4 alc tabs)] Route: PO; 18:15 Follow up: Response: No ad verse reaction jb7 17:23 Drug: Magnesium Sulfate 2 grams [magnesium sulfate 2 alc gram/50 mL (4 %) in water intravenous piggyback] Route: IVPB; Site: right antecubital; 18:14 Follow up: IV Status: Completed infusion; IV Intake: 100ml jb7 18:03 Drug: Ventolin 8 puffs [Ventolin HFA 90 mcg/actuation jb7 aerosol inhaler (8 puffs)] Route: Inhalation; 18:49 Drug: predniSONE 20 mg [prednisone 20 mg tablet (1 tabs)] alc Route: PO; 19:17 Follow up: Response: No adverse reaction alc Intake: 18:14 IV: 100ml; Total: 100ml. jb7 Outcome: 19:10 Discharge ordered by . cpg 19:15 Patient verbalized understanding of disposition alc instructions. Patient has no functional deficits. 19:15 Patient discharged to home ambulatory. 19:15 Condition: stable 19:15 Discharge instructions given to patient, Patient was instructed on discharge instructions, follow up and referral plans. medication usage, The patient demonstrated understanding of instructions, medications, Prescriptions given X 1. 19:15 Vitals are Complete in accordance with Emergency Department Policy. 19:16 Patient discharged out side door of respiratory unit with alc mask on 19:19 Patient left the ED. alc 09/11 08:38 24 hour call back completed with no concerns vocalized. Signatures: Alma Tse, RN RN Magdalena Brantley NP NP cpg Bond, Jarrett RN PERI jb7 Maris Dowling RN RN Blanca Lares RN RN alc Brown, Sarah, RN RN skb Tavernia, Jennifer jt3 Corrections: (The following items were deleted from the chart) 09/10 17:43 17:27 Oxygen administration via nasal cannula & 2L/min alc alc Name Value Range Interpretation Code Description Data Agueda rce(s) Supporting Document(s) ID Date Data Source [id number] 09/20/2019 01:12:00 PM EDT [facility] Name Value Range Interpretation Code Description Data Agueda rce(s) Supporting Document(s) Total Protein 6.3 - 7.9 Normal (applies to non-numeric re sults) [facility] Albumin 3.4-4.7 Normal (applies to non-numeric results) [facility] Alpha-1 Globulin 0.1-0.3 Normal (applies to non-numeric results) [facility] Alpha-2 Globulin 0.6-1.0 Normal (applies to non-numeric results) [facility] Beta-Globulin 0.7-1.2 Very abnormal (applies to non-num emilia units [facility] Gamma-Globulin 0.6-1.6 Normal (applies to non-numeric r esults) [facility] A/G Ratio Normal (applies to non-numeric results) [facility] Impression Normal (applies to non-numeric results) [facility] No apparent monoclonal protein on serum electrophoresis. See Immunofixation. Immunofixation Normal (applies to non-numeric r esults) [facility] RESULT: No monoclonal protein detected. Test Performed by: [place] [address] Logistics Loss Prevention Manager: Noe Williamson M.D. Ph.D.; CLIA# [id number] ID Date Data Source [id number] 09/20/2019 12:41:00 PM EDT [facility] Name Value Range Interpretation Code Description Data Agueda rce(s) Supporting Document(s) Total Protein 6.3 - 7.9 Normal (applies to non-numeric re sults) [facility] Albumin 3.4-4.7 Normal (applies to non-numeric resul ts) [facility] Alpha-1 Globulin 0.1-0.3 Normal (applies to non-numeric results) [facility] Alpha-2 Globulin 0.6-1.0 Normal (applies to non-numeric results) [facility] Beta-Globulin 0.7-1.2 [facility] Gamma-Globulin 0.6-1.6 Normal (applies to non-numeric r esults) [facility] A/G Ratio Normal (applies to non-numeric results) [facility] Impression Normal (applies to non-numeric resul ts) [facility] No apparent monoclonal protein on serum electrophoresis. See Immunofixation. Immunofixation Normal (applies to non-numeric r esults) [facility] RESULT: No monoclonal protein detected. Test Performed by: [place] [address] Logistics Loss Prevention Manager: Noe Williamson M.D. Ph.D.; CLIA# [id number] ID Date Data Source [id number] 09/17/2019 05:52:00 PM EDT [facility] Name Value Range Interpretation Code Description Data Agueda rce(s) Supporting Document(s) Hemoglobin A1c 4.4-6.2 Above high normal [facility] Estimated Avg Glucose 140 mg/dL 126-240 Normal (applies to non-numeric results) [facility] ID Date Data Source [id number] 09/17/2019 05:52:00 PM EDT [facility] Name Value Range Interpretation Code Description Data Agueda rce(s) Supporting Document(s) Vitamin D, Total 30.0-100.0 Below low normal [facility] ID Date Data Source [id number] 09/17/2019 05:52:00 PM EDT [facility] Name Value Range Interpretation Code Description Data Agueda rce(s) Supporting Document(s) Sodium 140 mmol/L 136-145 Normal (applies to non-numeric resul ts) [facility] Potassium 3.5-5.1 Normal (applies to non-numeric resul ts) [facility] Chloride 100 mmol/L 98-107 Normal (applies to non-numeric resul ts) [facility] Carbon Dioxide CO2 21-32 Normal (applies to non-numer ic results) [facility] Anion Gap 5.0-16.0 Normal (applies to non-numeric resul ts) [facility] BUN 17 mg/dL 7-18 Normal (applies to non-numeric results) [facility] Creatinine,Serum 0.8-1.5 Normal (applies to non-numeric results) [facility] GFR >60 Normal (applies to non-numeric results) [facility] Glucose Level 84 mg/dL 60-99 Normal (applies to non-numeric re sults) [facility] Reference range is only applicable when patient is fasting Note the following drug interference: Sulfasalazine Sulfapyridine Can see falsely depressed Can see falsely elevated result with up to 17% results with up to 11% decrease in measurement increase in measurement Recommend patients be collected for this test prior to administration of either drug. Calcium 8.5-10.1 Normal (applies to non-numeric resul ts) [facility] Bilirubin,Total 0.1-1.9 Normal (applies to non-numeric results) [facility] SGOT(AST) 45 U/L 15-37 Above high normal [facility] Note the following drug interference: Sulfasalazine Sulfapyridine Can see falsely depressed Can see falsely elevated result with up to 10% results with up to 10% decrease in measurement increase in measurement Recommend patients be collected for this test prior to administration of either drug. SGPT(ALT) 116 U/L 12-78 Above high normal [facility] Note the following drug interference: Sulfasalazine Sulfapyridine Can see falsely depressed Can see falsely elevated result with up to 29% results with up to 10% decrease in measurement increase in measurement Recommend patients be collected for this test prior to administration of either drug. Alkaline Phosphatase 115 U/L 38-126 Normal (applies to non-num emilia results) [facility] can increase Alkaline Phosp le vels up to 2 times the normal adult value. Normal values for children and adolescents are 2 to 3 times the normal adult value. Total Protein 6.0-8.2 Normal (applies to non-numeric re sults) [facility] Albumin Level 3.4-5.0 Normal (applies to non-numeric re sults) [facility] ID Date Data Source [id number] 09/17/2019 05:52:00 PM T [facility] Name Value Range Interpretation Code Description Data Agueda rce(s) Supporting Document(s) Triglycerides 355 mg/dL <150 Above high normal [facility] Cholesterol 193 mg/dL 100-200 Normal (applies to non-numeric resu lts) [facility] LDL Cholesterol Calculated 92 0-130 Normal (applies to n on-numeric results) [facility] HDL Cholesterol 30 mg/dL 40-60 Below low normal [facility] Cholesterol/HDL Ratio 3.6-6.7 Normal (applies to non-nu meric results) [facility] ID Date Data Source [id number] 09/17/2019 05:52:00 PM T [facility] Name Value Range Interpretation Code Description Data Agueda rce(s) Supporting Document(s) Thyroid Stimulate Hormone TSH 0.358-3.74 No rmal (applies to non-numeric results) [facility] ID Date Data Source [id number] 09/17/2019 05:52:00 PM [facility] Name Value Range Interpretation Code Description Data Agueda rce(s) Supporting Document(s) Free T4 (Free Thyroxine) 0.76-1.46 Normal (applies to non -numeric results) [facility] ID Date Data Source [id number] 09/17/2019 05:10:00 PM EDT [facility] Name Value Range Interpretation Code Description Data Agueda rce(s) Supporting Document(s) White Blood Count 3.5-10.5 Normal (applies to non-numeri c results) [facility] Red Blood Count 4.30-5.70 Normal (applies to non-numeric results) [facility] Hemoglobin 13.5-17.5 Normal (applies to non-numeric resul ts) [facility] Hematocrit 38.8-50.0 Normal (applies to non-numeric resul ts) [facility] Mean Corpuscular Volume 81.2-95.1 Normal (applies to non- numeric results) [facility] Mean Corpuscular Hgb 25.6-32.2 Normal (applies to non-num emilia results) [facility] Mean Corpuscular Hgb Conc 32.0-36.0 Normal (applies to no n-numeric results) [facility] Red Cell Distribution Width 11.8-15.6 Normal (appli es to non-numeric results) [facility] Platelet Count 293 x10 3/uL 150-450 Normal (applies to non-numeric results) [facility] Mean Platelet Volume 9.4-12.4 Normal (applies to non-num emilia results) [facility] Neutrophils% (Auto) 31.0-71.0 Normal (applies to non-nume pako results) [facility] Lymphocytes% (Auto) 20.0-55.0 Normal (applies to non-nume pako results) [facility] Monocytes% (Auto) 4.0-12.0 Normal (applies to non-numeri c results) [facility] Eosinophils% (Auto) 1.0-8.0 Normal (applies to non-nume pako results) [facility] Basophils% (Auto) 0.0-2.0 Normal (applies to non-numeri c results) [facility] Immature Granulocytes% (Auto) 0.0-2.0 Normal (jovanni lies to non-numeric results) [facility] Neutrophils# (Auto) 1.50-6.20 Normal (applies to non-nume pako results) [facility] Lymphocytes# (Auto) 1.20-4.00 Normal (applies to non-nume pako results) [facility] Monocytes# (Auto) 0.00-0.90 Normal (applies to non-numeri c results) [facility] Eosinophils# (Auto) 0.00-0.50 Normal (applies to non-nume pako results) [facility] Basophils# (Auto) 0.00-0.20 Normal (applies to non-numeri c results) [facility] Immature Granulocytes# (Auto) 0.00-7.00 No rmal (applies to non-numeric results) [facility] ID Date Data Source [id number] 09/11/2019 04:20:00 PM EDT [facility] Name: JHON PATE [facility] Rec #: [id number] : 1975 Age/Sex: 44M Date of Service: 09/11/19 DISPOSITION SUMMARY Discharge Summary [facility] Name:Jhon Pate Emergency Department Age:44 yrs Sex:Male :1975 Arrival:09/11/2019 16:20 Departure Date09/11/2019 Departure Time19:19 Private MD:Mateo Rodríguez Outcome: Discharge Location: Home/Self Care Condition: Good Chief Complaint: Cough, Shortness Of Breath Diagnosis: Viral Upper Respiratory Infection (URI) Prescriptions: Prednisone 20 mg Oral Tablet - take 1 tablet by ORAL route once daily for 3 days; 3 tablet Follow up: Mateo Rodríguez Custom Notes: Jhon your work-up is essentially negative. Your lungs have improved with the albuterol treatment and we are going to increase your prednisone to 40 mg daily for the next 3 days. I want you to call Dr. Rodríguez tomorrow and do a telephone follow-up. If your symptoms worsen such as fever, difficulty breathing, or worsening symptoms, please return. Attending Physician: Rossana Garnett MD Private MD: Mateo Rodríguez Mid Level Provider: Magdalena Turner NP Followup Physician: Mateo Rodríguez Orders: B-Type Natriuretic Peptide - BNP, Cbc With Auto Differential, Comprehensive Metabolic Prof., D-Dimer, Lipase, MG (Magnesium), Partial Thromboplastin Time, Prothrombin Time, Troponin I, UA., Respiratory Panel (Use Workup), Lactic Acid, VBG, Blood Culture - Venous, CXR Portable (Chest Pain), Aspirin, Emergency Room EKG Order - Use EKG Work-Up /Quick Select, Cardiology EKG Interpretation - Choose Reason for Test, Iv Saline Lock, Place Patient On Monitor, Collect nasal swab, Magnesium Sulfate, Oxygen - 2L Nasal Cannula, Ventolin, predniSONE Discharge Instruction: Discharge Summary Sheet, Upper Respiratory Infection, Adult, Medication Reconciliation Name Value Range Interpretation Code Description Data Agueda rce(s) Supporting Document(s) ID Date Data Source [id number] 09/16/2019 05:28:00 PM EDT [facility] Liter Flow: 1 3 hour post Lactic if timothy vated? Y On Oxygen? N Name Value Range Interpretation Code Description Data Agueda rce(s) Supporting Document(s) Blood Culture-Venous [facility] ID Date Data Source [id number] 09/16/2019 05:28:00 PM EDT [facility] Liter Flow: 1 3 hour post Lactic if timothy vated? Y On Oxygen? N Name Value Range Interpretation Code Description Data Agueda rce(s) Supporting Document(s) Blood Culture-Venous [facility] ID Date Data Source [id number] 09/15/2019 09:45:00 AM EDT [facility] COVID-19 Specimen Source NASOPHARYNGEAL Name Value Range Interpretation Code Description Data Agueda rce(s) Supporting Document(s) SARS-CoV-2 RNA Undetected Normal (applies to non-numeric r esults) [facility] SARS-CoV-2 RNA is not detected. ------- ADDITIONAL INFORMATION Testing was performed using the ramez SARS-CoV-2 assay ([employer] on the [employer]amez [employer] System. Fact sheets for this Emergency Use Authorization (EUA) assay can be found at the following links: For Healthcare Providers: https://www.fda.gov/media/563988/download For Patients: https://www.fda.gov/media/474980/download Test Performed by: [place] [address] Logistics Loss Prevention Manager: Noe Williamson M.D. Ph.D.; CLIA# [id number] ID Date Data Source [id number] 09/11/2019 06:58:00 PM EDT [facility] NThis Respiratory Panel DOES NOT test fo r the Novel 2018- Coronovirus (2019- nCoV) from [facility]. If patient is suspected of having the Novel 2018 Coronovirus notify the Health Department IMMEDIATELY. Not detectedNot detectedNot detectedNot detectedNot detectedNot detectedNot detectedNot detectedNot detectedNot detectedNot detectedNot detectedNot detectedNot detected Methodology: Multiplexed PCR Reference Range: Not detectedNot detectedNot detectedNot detectedNot detected Name Value Range Interpretation Code Description Data Agueda rce(s) Supporting Document(s) ID Date Data Source [id number] 09/11/2019 06:04:00 PM EDT [facility] Name Value Range Interpretation Code Description Data Agueda rce(s) Supporting Document(s) Sodium 136 mmol/L 137-[address] [facility] Potassium 3.5-5.1 Normal (applies to non-numeric resul ts) [facility] Chloride 103 mmol/L 98-112 Normal (applies to non-numeric resul ts) [facility] Carbon Dioxide CO2 22.0-33.0 Normal (applies to non-numer ic results) [facility] Anion Gap 4.0-11.0 Normal (applies to non-numeric resul ts) [facility] BUN 18 mg/dL 9-20 Normal (applies to non-numeric resul ts) [facility] Creatinine 0.80-1.50 Normal (applies to non-numeric resul ts) [facility] GFR 75 mL/min >60 Normal (applies to non-numeric resul ts) [facility] Result based on MDRD formula. Glucose Level 105 mg/dL 74-99 Above high normal [facility] The reference range is only applicable w hen fasting. Calcium-Uncorrected 8.4-10.2 Normal (applies to non-nume pako results) [facility] Corrected Calcium 8.4-10.2 Normal (applies to non-numeri c results) [facility] Bilirubin,Total 0.2-1.3 Normal (applies to non-numeric results) [facility] SGOT(AST) 58 U/L 17-59 Normal (applies to non-numeric resul ts) [facility] SGPT(ALT) 113 U/L 21-[address] [facility] Alkaline Phosphatase 111 U/L 38-126 Normal (applies to non-num emilia results) [facility] can increase Alkaline Phosp le vels up to 2 times the normal adult value. Normal values for children and adolescents are 2 to 3 times the normal adult value. Total Protein 6.3-8.2 Normal (applies to non-numeric re sults) [facility] Albumin 3.5-5.0 Normal (applies to non-numeric resul ts) [facility] ID Date Data Source [id number] 09/11/2019 06:04:00 PM EDT [facility] Name Value Range Interpretation Code Description Data Agueda rce(s) Supporting Document(s) Magnesium 1.80-2.40 Normal (applies to non-numeric resul ts) [facility] ID Date Data Source [id number] 09/11/2019 06:04:00 PM EDT [facility] Name Value Range Interpretation Code Description Data Agueda rce(s) Supporting Document(s) B-Type Natriuretic Peptide BNP <125 Normal (applies to non-numeric results) [facility] NT-proBNP values less than 300 pg/mL hav e a 99% negative predictive value for excluding acute congestive heart failure. A diagnostic NT-proBNP cutoff of 900 pg/mL has been suggested in adults over 50 years of age in the absence of renal failure. A cutoff of 1200 pg/mL for patients with GFR <60 yields a diagnostic sensitivity and specificity of 89% and 72% for acute congestive failure. ID Date Data Source [id number] 09/11/2019 06:04:00 PM EDT [facility] Name Value Range Interpretation Code Description Data Agueda rce(s) Supporting Document(s) Lipase 91 U/L 73-393 Normal (applies to non-numeric resul ts) [facility] ID Date Data Source [id number] 09/11/2019 05:58:00 PM EDT [facility] Name Value Range Interpretation Code Description Data Agueda rce(s) Supporting Document(s) Troponin I 0.000-0.045 Normal (applies to non-numeric resu lts) [facility] ID Date Data Source [id number] 09/11/2019 05:56:00 PM EDT [facility] 3 hour post Lactic if elevated? Y Name Value Range Interpretation Code Description Data Agueda rce(s) Supporting Document(s) Lactic Acid 0.4-2.0 Normal (applies to non-numeric resu lts) [facility] ID Date Data Source [id number] 09/11/2019 05:45:00 PM EDT [facility] Name Value Range Interpretation Code Description Data Agueda rce(s) Supporting Document(s) PT 9.4-12.5 Normal (applies to non-numeric results) [facility] INR Normal (applies to non-numeric results) [facility] The use of the INR is restricted to francisco javier ents on stable oral anticoagulant. Therapeutic Range: 2.0-3.0 High Risk Values: 2.5-3.5 ID Date Data Source [id number] 09/11/2019 05:45:00 PM EDT [facility] Name Value Range Interpretation Code Description Data Agueda rce(s) Supporting Document(s) PTT 25.1-36.5 Normal (applies to non-numeric resul ts) [facility] ID Date Data Source [id number] 09/11/2019 05:45:00 PM EDT [facility] Name Value Range Interpretation Code Description Data Agueda rce(s) Supporting Document(s) D-Dimer Quant 326 ng/mLFEU <500 Normal (applies to non-numeric results) [facility] Negative for D-Dimer. This test has f ull FDA exclusion claim at a Negative cutoff value of 500 ng/mL FEU. When the d-dimer value is used in conjunction with the clinical pretest probability (PTP) assessment model to exclude DVT and PE, results less than 500 ng/mL are negative for DVT/PE. ID Date Data Source [id number] 09/11/2019 05:44:00 PM EDT [facility] Name Value Range Interpretation Code Description Data Agueda rce(s) Supporting Document(s) Color,Urine Yellow Normal (applies to non-numeric resu lts) [facility] Clarity,Urine Clear Normal (applies to non-numeric re sults) [facility] Specific Lindsay,Urine 1.001-1.030 Normal (applies to non- numeric results) [facility] PH,Urine 5.0-8.0 Normal (applies to non-numeric resul ts) [facility] Protein,Urine Negative Normal (applies to non-numeric re sults) [facility] Glucose,Urine (UA) Negative Normal (applies to non-numer ic results) [facility] Ketones,Urine Negative Normal (applies to non-numeric re sults) [facility] Blood,Urine Negative Normal (applies to non-numeric resu lts) [facility] Bilirubin,Urine Negative Normal (applies to non-numeric results) [facility] Urobilinogen,Urine Norm 0.2-1 Normal (applies to non-numer ic results) [facility] Leukocyte Esterase,Urine Negative Normal (applies to non -numeric results) [facility] Nitrite,Urine Negative Normal (applies to non-numeric re sults) [facility] ID Date Data Source [id number] 09/11/2019 05:32:00 PM EDT [facility] Liter Flow: 1 3 hour post Lactic if timothy vated? Y On Oxygen? N Name Value Range Interpretation Code Description Data Agueda rce(s) Supporting Document(s) Venous PH 7.31-7.41 Normal (applies to non-numeric resul ts) [facility] VBG PCO2 43 mmHg 42-55 Normal (applies to non-numeric resul ts) [facility] VBG PO2 47 mmHg 30-50 Normal (applies to non-numeric resul ts) [facility] VBG HCO3 24.0-28.0 Normal (applies to non-numeric resul ts) [facility] ID Date Data Source [id number] 09/11/2019 05:31:00 PM EDT [facility] Name Value Range Interpretation Code Description Data Agueda rce(s) Supporting Document(s) White Blood Count 4.8-10.8 Normal (applies to non-numeri c results) [facility] Red Blood Count 4.35-6.08 Normal (applies to non-numeric results) [facility] Hemoglobin 13.0-17.5 Normal (applies to non-numeric resul ts) [facility] Hematocrit 37.7-51.0 Normal (applies to non-numeric resul ts) [facility] Mean Corpuscular Volume 80-94 Normal (applies to non- numeric results) [facility] Mean Corpuscular Hemoglobin 27.0-33.0 Normal (appli es to non-numeric results) [facility] Mean Corpuscular HGB Conc 32.0-36.0 Normal (applies to no n-numeric results) [facility] Red Cell Distribution Width 11.5-14.5 Normal (appli es to non-numeric results) [facility] Platelet Count 323 X10 3/uL 130-450 Normal (applies to non-numeric results) [facility] Mean Platelet Volume 9.6-13.1 Normal (applies to non-num emilia results) [facility] Imm Grans% (AUTO) 0 % 0-2 Normal (applies to non-numeri c results) [facility] Neutrophils % (AUTO) 42 % 40-75 Normal (applies to non-num emilia results) [facility] Lymphocytes % (AUTO) 44 % 21-46 Normal (applies to non-num emilia results) [facility] Monocytes % (AUTO) 10 % 5-12 Normal (applies to non-numer ic results) [facility] Eosinophils % (AUTO) 3 % 1-5 Normal (applies to non-num emilia results) [facility] Basophils % (AUTO) 1 % 0-1 Normal (applies to non-numer ic results) [facility] Imm Grans# (AUTO) 0.00-0.50 Normal (applies to non-numeri c results) [facility] Neutrophils # (AUTO) 1.5-8.1 Normal (applies to non-num emilia results) [facility] Lymphocytes # (AUTO) 1.0-3.1 Above high normal [facility] Monocytes # (AUTO) 0.2-1.3 Normal (applies to non-numer ic results) [facility] Eosinophils# (AUTO) 0.0-0.5 Normal (applies to non-nume pako results) [facility] Basophils # (AUTO) 0.00-0.10 Normal (applies to non-numer ic results) [facility] ID Date Data Source [id number] 09/12/2019 01:58:00 PM EDT [facility] Name: JHON PATE : 7 Age/Sex: 44M Ordering Provider: WEI Garg Med Rec #: [id number] Reg Status:[facility] ER Room #: Date of Service: 09/11/19 Report Number: [id number] cc: WEI Garg; Mateo Rodríguez MD Send Report To: Reason for exam: Baseline SINUS RHYTHM MODERATE INTRAVENTRICULAR CONDUCTION DELAY BORDERLINE ECG INTERPRETATION BASED ON A DEFAULT AGE OF 40 YEARS No significant change Physician Delinquent Tax Collection Assistant: Woody Vaz M.D. ECG HEART RATE: 97 /min ECG RR INTERVAL: 617 ms ECG P DURATION: 113 ms ECG QRS DURATION: 112 ms ECG [place] INTERVAL: 158 ms ECG QT INTERVAL: 345 ms ECG QTC INTERVAL: 409 ms Q-T dispersion: ms ECG P AXIS: 52 deg ECG QRS AXIS: -16 deg ECG T AXIS: -3 deg REPORT SIGNATURE ON FILE 09/12/19 1358 Reported By: Woody Vaz MD <<Signature on File>> Exam Date/Time: 09/11/19 1652 Order #: [id number] Dictation Date/Time: 09/12/19 1358 Transcribed Date/Time: 09/12/19 135 It Network Engineer: TOBY Stahl Value Range Interpretation Code Description Data Agueda rce(s) Supporting Document(s) ID Date Data Source [id number] 09/12/2019 06:06:00 AM EDT [facility] Name: JHON PATE : 7 Age/Sex: 44M Ordering Provider: WEI Garg Med Rec #: [id number] Reg Status: [facility] Room #: Date of Service: 09/11/19 Report Number: [id number] cc:Mateo Rodríguez MD Send Report To: [id number] XRP/XR Chest Xray Portable Reason for exam: _PAIN - CHEST Prior examination: 08-23-19 FINDINGS: There is suboptimal inspiration, what is again seen is bibasilar opacity, left greater than right, apparently representing subsegmental atelectasis, although infiltrate especially at the left base is not excluded. The cardiomediastinal silhouette is magnified by the AP portable nature of the exam as well as the suboptimal inspiration. IMPRESSION: No significant change in what appears to be bibasilar subsegmental atelectasis left greater than right. Associated infiltrate is not entirely excluded, although some or all of this could be related to suboptimal inspiration/hypoventilation. Correlate clinically and suggest followup imaging. Fluoroscopy time in seconds: Number of Exposures: Time Portable Image Performed: 1710 Contrast Agent in ml: Method of Administration: REPORT SIGNATURE ON FILE Reported By: Rad Choi MD <Timothy ctronically signed by Rad Choi MD> 09/12/19 0726 Dictation Date/Time: 09/11/191718 Transcribed Date/Time: 09/12/19 0606 It Network Engineer: LYNETTE Name Value Range Interpretation Code Description Data Agueda rce(s) Supporting Document(s) ID Date Data Source [id number] 09/11/2019 04:00:00 PM EDT [facility] Name Value Range Interpretation Code Description Data Agueda rce(s) Supporting Document(s) SARS-CoV-2 RNA Resp Ql RO+probe [facility] This lab was ordered by [facility] sonny and reported by [facility]. ID Date Data Source [id number] 08/23/2019 10:45:00 AM EDT [facility] Name: JHON PATE [facility] Rec #: [id number] : 1975 Age/Sex: 44M Date of Service: 08/23/19 PHYSICIAN CHART Physician Documentation [facility] Name: Jhon Pate Age: 44 yrs Sex: Male : 1975 Arrival Date: 08/23/2019 Time: 10:45 Bed 5 Private MD: Mateo Rodríguez S ED Physician Dagoberto Torres Disposition: 08/22 12:21 Attestation: I discussed the plan of care with [facility] Provider and agree with what they have documented. 13:52 Critical Care: not applicable. tcm HPI: 11:31 This 44 yrs old Male presents to ER via Walk-In tcm with complaints of Shortness Of Breath, High Blood Pressure. 11:31 The patient has shortness of breath with light activity. tcm Onset: The symptoms/episode began/occurred acute on chronic, "a few days ago". Patient presenting to emergency room complaining of shortness of breath, high blood pressure for the past few days. 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 Patient since then has had multiple visits to emergency room for respiratory symptoms, numerous hospitalizations. He reports over the past 3 days he has had progressively worsening dyspnea on exertion, dry cough. Denies any recent travel, fevers, chills, abdominal pain, nausea, vomiting, headaches, chest pain, palpitations, loss of consciousness, confusion. Home health nurse also suspects he may have cellulitis on his foot, he is tried antifungals suspecting it might be athlete's foot that was experienced no relief in symptoms. Reports tender, painful, warm to touch.. Historical: - Allergies: Tape (Hives); - Home Meds: 1. amlodipine 2.5 mg Oral tab 1 tab once daily 2. aspirin 81 mg Oral TbEC 1 tab once daily 3. baclofen 10 mg Oral tab 1.5 tab 3 times per day 4. calcium carbonate 500 mg calcium (1,250 mg) Oral cap 5. cyclobenzaprine 5 mg Oral tab 1 tab daily 6. duloxetine 30 mg Oral cpDR 1 cap once daily 7. gabapentin 300 mg Oral Tb24 3 tab three times a day 8. gabapentin 600 mg Oral tab 1 tab 3 times per day 9. hydrochlorothiazide 25 mg Oral tab 1 tab once daily 10. ipratropium bromide 0.02 % inhalation soln 1.25 mL 3 times per day 11. metoprolol succinate 100 mg CSpX 1 cap once daily 12. pantoprazole 40 mg Oral TbEC 1 tab 2 times per day 13. potassium chloride 20 mEq Oral TbER 1 tab once daily 14. prednisone 10 mg Oral tab 2 tabs once daily 15. ropinirole 1 mg Oral tab 1 tab 16. sertraline 50 mg Oral tab 1 tab once daily 17. sulfamethoxazole-trimethoprim 800-160 mg Oral tab 1 tab 4 times per day three times per week 18. testosterone cypionate 200 mg/mL intramuscular oil 0.25 mL every 2 wks 19. trazodone 50 mg Oral tab 1 tab at bedtime 20. Ventolin HFA 90 mcg/actuation Nebulizer HFAA 2 puffs Every 4 hours, PRN Patient is out of medication at home 21. zolpidem 5 mg Oral tab 1 tab once daily - PMHx: GERD; HTN - hypertension; insomnia; KIDNEY STONES; - PSHx: Appendectomy; Cholecystectomy; knee-left; - Med Reconciliation:: Yellow Alert: The patient's home medication list is partly complete. However, additional information is required to complete list. Medications reviewed, completed by nurse using patient's med list. verbally from patient/family. - Immunization history: Flu vaccine is up to date. - Advance directive: There is no existing advanced directive. Information offered. - Family History:: mother is healthy. - Social History: Smoking status (Tobacco): Patient states he/she has never smoked tobacco. No barriers to communication noted, Speaks appropriately for age. ROS: 11:35 Constitutional: Positive for fatigue, Negative for fever, tcm chills, poor PO intake. ENT: Negative for ear pain, hearing loss, nasal discharge, sinus congestion, sore throat. Neck: Negative for pain with movement, pain at rest, stiffness, swelling, swollen nodes, tenderness. Cardiovascular: Negative for chest pain, palpitations, edema. Respiratory: Positive for cough, shortness of breath, dyspnea on exertion. Abdomen/GI: Negative for abdominal pain, nausea, vomiting, diarrhea, constipation, abdominal cramps, abdominal distension. MS/extremity: Negative for injury or acute deformity, decreased range of motion, pain, paresthesias, swelling, tingling. Skin: Positive for erythema, rash, Negative for diaphoresis, pallor. Neuro: Negative for dizziness, headache, loss of consciousness, numbness, syncope, tingling, weakness. Exam: 11:36 Head/Face: Normocephalic, atraumatic. ENT: Nares patent. tcm No nasal discharge, no septal abnormalities noted. Tympanic membranes are normal and external auditory canals are clear. Oropharynx with no redness, swelling, or masses, exudates, or evidence of obstruction, uvula midline. Mucous membranes moist. Neck: Trachea midline, no thyromegaly or masses palpated, and no cervical lymphadenopathy. Supple, full range of motion without nuchal rigidity, or vertebral point tenderness. No Meningismus. 11:36 MS/ Extremity: Pulses equal, no cyanosis. Neurovascular intact. Full, normal range of motion. 11:36 Constitutional: The patient appears to have no acute distress, appears alert, appears to be awake, appears comfortable. 11:36 Cardiovascular: Rate: normal, Rhythm: regular, Pulses: Pulses are 2+ in right radial artery, right posterior tibial artery, left radial artery and left posterior tibial artery. Heart sounds: normal, normal S1and S2. 11:36 Respiratory: mild respiratory distress is noted, Respirations: labored breathing, that is mild, Breath sounds: decreased breath sounds, that are moderate, are scattered. 11:36 Neuro: Orientation: is normal, to person, place, time & situation. Mentation: is normal, responsive to voice lucid, able to follow commands, Memory: is normal, immediate memory is intact, recent memory is intact, remote memory is intact, Sensation: is normal, no obvious gross deficits. 14:16 Skin: Appearance: normal except for affected area, Color: tcm pink, Temperature: warm, Moisture: dry, Erythematous, increased warmth on plantar side of right foot diffusely, well demarcated edges, tender to touch.. Vital Signs: 10:50 BP 167 / 101; Pulse 116; Resp 20; Temp 97.4; Pulse Ox 93% edv on R/A; Weight 116.12 kg; Height 5 ft. 8 in. (172.72 cm); 11:30 Pulse Ox 92% on R/A; dl2 11:39 BP 145 / 90; Pulse 104; Resp 20; Temp 98.2(O); Pulse Ox 95% dl2 on 2 lpm NC; Pain 9/10; 12:11 BP 129 / 83; Pulse 96; Resp 18; Pulse Ox 95% ; dl2 13:02 BP 125 / 81; Pulse 92; Resp 18; Temp 97.0; Pulse Ox 95% ; sj 13:51 BP 118 / 76; Pulse 90; Resp 16; Pulse Ox 94% on R/A; dl2 14:30 BP 116 / 80; Pulse 90; Resp 18; Temp 97.2; Pulse Ox 94% on sj R/A; 10:50 Body Mass Index 38.92 (116.12 kg, 172.72 cm) edv 11:39 across chest dl2 MDM: 11:06 Patient medically screened. tcm 12:07 ECG: The ECG on this patient demonstrates Other Normal rc3 sinus rhythm, rate 107, left axis, normal intervals, no ST elevations or depressions, Q waves to inversion lead III overall similar to July 05, 2019. 13:52 Antibiotic administration: The patient is discharged and tcm will get outpatient antibiotics, Doxycycline, keflex. Data reviewed: vital signs, nurses notes. Data interpreted: Pulse oximetry: on room air. 13:59 ED course: Patient presenting to emergency room complaining tcm of right foot pain, rash, shortness of breath for the past 3 days. On exam rash on right foot consistent with cellulitis, increased warmth, redness, tender to touch and did not respond to antifungals at home, will treat with Keflex and doxycycline as he has a history of MRSA infection. Respiratory panel today was positive for david NL 63 and discussed this with patient advised supportive care and will treat with short course of prednisone. Patient responded well to DuoNeb's today, O2 saturation went up to 96% on room air and notably patient moving more air on exam. D-dimer was negative today, chest x-ray showed bibasilar atelectasis, suspect related to his acute on chronic illness. Return precautions discussed which patient understood and agreed with, vitals normal upon discharge, patient comfortable and cooperative with exam and interview, will follow up with his primary care doctor on Monday and call about his referral status to his genetic technologist upon discharge today.. 08/22 11:09 Order name: Cbc With Auto Differential; Complete Time: 14:07tcm 08/22 14:07 Interpretation: WBC 6.6; RBC 5.06; HGB 14.6; HCT 42.2; MCV tcm 83.4; MCH 28.9; MCHC 34.6; RDW 13.6; PLT 224; MPV 10.9. 08/22 11:09 Order name: COMMET; Complete Time: 14:07 tcm 08/22 14:08 Interpretation: K 3.9; CL 105; NA 140; CO2 25.0; GAP 10.0; tcm BUN 15; CREAT 0.98; Glom Filtration 83; GLU 97; Corrected CA 9.1; T Bili 0.9; SGOT(AST) 44; SGPT(ALT) 80; ALK PHOS 99. 08/22 11:09 Order name: Troponin I; Complete Time: 14:07 [facility] 08/22 14:07 Interpretation: TROP I < 0.045. [facility] 08/22 11:09 Order name: BNP; Complete Time: 14:08 [facility] 08/22 14:08 Interpretation: BNP 5. [facility] 08/22 11:09 Order name: VBG; Complete Time: 14:07 [facility] 08/22 14:07 Interpretation: VBG PH 7.42; VBG PCO2 39; VBG PO2 65; VBG tcm HCO3 25.3. 08/22 11:09 Order name: UA.; Complete Time: 14:08 [facility] 08/22 14:08 Interpretation: Ur Color Yellow; Ur Clarity Clear; Ur Spec tcm gravity 1.022; Ur Protein Negative; Ur Glucose Negative; Ur Ketones Negative; Ur Bilirubin Negative; Ur Blood Negative; Ur Urobilinogen 1.0; Ur Leuk Est Negative; Ur Nitrite Negative. 08/22 10:56 Order name: Cardiology EKG Interpretation - Choose Reason dl2 for Test 08/22 11:09 Order name: D-Dimer; Complete Time: 14:08 [facility] 08/22 14:08 Interpretation: D-Dimer Quant 223. [facility] 08/22 11:09 Order name: Chest 2 View (PA & LAT) - Xray [facility] 08/22 11:29 Order name: Respiratory Panel (Use Workup); Complete Time: [facility] 13:53 08/22 13:53 Interpretation: VIRUSES <p></p>. [facility] 08/22 10:56 Order name: Emergency Room EKG Order - Use EKG Work-Up dl2 /Quick Select; Complete Time: 11:03 08/22 11:09 Order name: Collect Urine - Clean Catch; Complete Time: [facility] 11:42 08/22 11:09 Order name: Saline Lock; Complete Time: 11:42 [facility] 08/22 11:29 Order name: Collect nasal swab; Complete Time: 11:42 [facility] Dispensed Medications: 12:10 Drug: NS 0.9% 1000 ml [sodium chloride 0.9 % intravenous dl2 solution] Route: IV; Rate: 999 mL/hr; Site: right antecubital; 13:16 Follow up: IV Status: Completed infusion; IV Intake: 1000ml dl2 12:10 Drug: ketorolac 15 mg [ketorolac 30 mg/mL (1 mL) injection dl2 solution (0.5 mL)] Route: IVP; Site: right antecubital; 13:15 Follow up: Response: No change in condition dl2 12:10 Drug: DuoNeb - Albuterol-Ipratropium 3 ml dl2 [ipratropium-albuterol 0.5 mg-3 mg(2.5 mg base)/3 mL nebulization soln (3 mL)] Volume: 3 ml; Route: Nebulizer; 12:10 Drug: DuoNeb - Albuterol-Ipratropium 3 ml dl2 [ipratropium- albuterol 0.5 mg-3 mg(2.5 mg base)/3 mL nebulization soln (3 mL)] Volume: 3 ml; Route: Nebulizer; 13:15 Drug: DuoNeb - Albuterol- Ipratropium 3 ml dl2 [ipratropium-albuterol 0.5 mg-3 mg(2.5 mg base)/3 mL nebulization soln (3 mL)] Volume: 3 ml; Route: Nebulizer; 13:52 Follow up: Response: No change in condition dl2 13:51 Drug: Cephalexin 500 mg [cephalexin 250 mg capsule (2 dl2 caps)] Route: PO; 13:57 Follow up: Response: Medication administered at discharge. dl2 13:51 Drug: predniSONE 60 mg [prednisone 20 mg tablet (3 tabs)] dl2 Route: PO; 13:52 Follow up: Response: No change in condition dl2 13:52 Drug: Doxycycline 100 mg [doxycycline hyclate 100 mg dl2 capsule (1 caps)] Route: PO; 13:57 Follow up: Response: Medication administered at discharge. dl2 13:57 Not Given (d/carlos alberto by mdd): fentaNYL (PF) 50 mcg IVP once dl2 Disposition Summary: 08/23/19 14:01 Discharge Ordered Location: Home/Self Care tcm Condition: Good tcm Diagnosis - Upper Respiratory Infection (URI) tcm - Cellulitis tcm Followup: tcm - With: Mateo Rodríguez - When: 2 - 3 days - Reason: Further diagnostic work-up, Recheck today's complaints, Continuance of care, If symptoms persist Discharge Instructions: - Discharge Summary Sheet tcm - MRSA Infection, Adult tcm - Upper Respiratory Infection, Adult tcm Forms: - Medication Reconciliation tcm Prescriptions: - Cephalexin 500 mg Oral Capsule - take 1 capsule by ORAL route every 6 hours for 5 tcm days; 20 capsule; Refills: 0, Product Selection Permitted - [place] 5 - take 1 tablet by ORAL route every 6 hours As tcm needed; 6 tablet; Refills: 0, Product Selection Permitted - Prednisone 20 mg Oral Tablet - take 3 tablets by ORAL route once daily for 5 days; tcm 15 tablet; Refills: 0, Product Selection Permitted - Doxycycline Hyclate 100 mg Oral Tablet - take 1 tablet by ORAL route once daily for 5 days tcm Separate from taking calcium carbonate by 2-3 hours; 10 tablet; Refills: 0, Product Selection Permitted Signatures: Dispatcher [employer] EDGrant Balderas, RN RN edv Dagoberto Torres DO DO rc3 Vita Frost NA NA sl2 Jaime Allison PA PA tcm Bettye Martin dl2 Name Value Range Interpretation Code Description Data Agueda rce(s) Supporting Document(s) ID Date Data Source [id number] 08/23/2019 10:45:00 AM EDT [facility] Name: PAULAHENRYJHON [facility] Rec #: [id number] : 1975 Age/Sex: 44M Date of Service: 08/23/19 DISPOSITION SUMMARY Discharge Summary [facility] Name:Jhon Pate [facility] Age:44 yrs Sex:Male :1975 Arrival:08/23/2019 10:45 Departure Date08/23/2019 Departure Time14:58 Private MD:Mateo Rodríguez Outcome: Discharge Location: Home/Self Care Condition: Good Chief Complaint: Shortness Of Breath, High Blood Pressure Diagnosis: Upper Respiratory Infection (URI), Cellulitis Prescriptions: Cephalexin 500 mg Oral Capsule - take 1 capsule by ORAL route every 6 hours for 5 days; 20 capsule, [place] 5-325 mg Oral Tablet - take 1 tablet by ORAL route every 6 hours As needed; 6 tablet, Prednisone 20 mg Oral Tablet - take 3 tablet by ORAL route once daily for 5 days; 15 tablet, Doxycycline Hyclate 100 mg Oral Tablet - take 1 tablet by ORAL route once daily for 5 days Separate from taking calcium carbonate by 2-3 hours; 10 tablet Follow up: Mateo Rodríguez Custom Notes: Atten ding Physician: Dagoberto Torres DO Private MD: Mateo Rodríguez Mid Level Provider: Jaime Allison PA Followup Physician: Mateo Rodríguez Orders: Cbc With Auto Differential, COMMET, Troponin I, BNP, VBG, UA., Cardiology EKG Interpretation - Choose Reason for Test, D-Dimer, Chest 2 View (PA & LAT) - Xray, NS 0.9%, ketorolac, Albuterol-Ipratropium, Respiratory Panel (Use Workup), fentaNYL (PF), Emergency Room EKG Order - Use EKG Work-Up /Quick Select, Collect Urine - Clean Catch, Saline Lock, Collect nasal swab, Doxycycline, Cephalexin, predniSONE Discharge Instruction: Discharge Summary Sheet, MRSA Infection, Adult, Upper Respiratory Infection, Adult, Medication Reconciliation Name Value Range Interpretation Code Description Data Agueda rce(s) Supporting Document(s) ID Date Data Source [id number] 08/23/2019 10:45:00 AM EDT [facility] Name: JHON PATE [facility] Rec #: [id number] : 1975 Age/Sex: 44M Date of Service: 08/23/19 NURSE CHART Nurse's Notes [facility] Name: Jhon Pate Age: 44 yrs Sex: Male : 1975 Arrival Date: 08/23/2019 Time: 10:45 Bed 5 Private MD: Matoe Rodríguez S Diagnosis: Upper Respiratory Infection (URI);Cellulitis Inbound Details: Referred by: Reyes Argueta MD [phone] Arriving by: Walk-In ETA: Who will see patient? ED Physician Notes: Hx of respiratory failure. Worsening SOB last several days. ?RLE cellulitis. In office 91% on RA, HR 120s. O2 dependent at night only. Notify referring provider: Do not notify Presentation: 08/22 10:47 Transition of care: patient was received from another edv setting of care (ambulatory primary care physician practice), Reyes Argueta MD. Presenting complaint: Patient states - High blood pressure and SOB x 3. Have you travelled in the last 30 days? No. Have you had contact with an individual with a confirmed diagnosis of Ebola or COVID-19? No. 10:47 Method Of Arrival: Walk-In edv 10:47 Acuity: Urgent - 3 edv Triage Assessment: 10:49 SEPSIS SCREEN: A Confirmed or Suspected Infection is. edv Suicide Screening: Have you had thoughts of harming yourself or others? No. The patient appears to have no apparent distress, obese, The patient is behaving appropriately according to age, cooperative. The patient reports that he/she has been having sweats, at night. The patient denies that he/she has been feeling like he/she has had a fever. The patient complains of pain in right foot. The patient states the pain began gradually, 1weeks ago. Respiratory: Patient reports shortness of breath at rest on exertion cough that is non- productive, persistent. Historical: - Allergies: Tape (Hives); - Home Meds: 1. amlodipine 2.5 mg Oral tab 1 tab once daily 2. aspirin 81 mg Oral TbEC 1 tab once daily 3. baclofen 10 mg Oral tab 1.5 tab 3 times per day 4. calcium carbonate 500 mg calcium (1,250 mg) Oral cap 5. cyclobenzaprine 5 mg Oral tab 1 tab daily 6. duloxetine 30 mg Oral cpDR 1 cap once daily 7. gabapentin 300 mg Oral Tb24 3 tab three times a day 8. gabapentin 600 mg Oral tab 1 tab 3 times per day 9. hydrochlorothiazide 25 mg Oral tab 1 tab once daily 10. ipratropium bromide 0.02 % inhalation soln 1.25 mL 3 times per day 11. metoprolol succinate 100 mg CSpX 1 cap once daily 12. pantoprazole 40 mg Oral TbEC 1 tab 2 times per day 13. potassium chloride 20 mEq Oral TbER 1 tab once daily 14. prednisone 10 mg Oral tab 2 tabs once daily 15. ropin irole 1 mg Oral tab 1 tab 16. sertraline 50 mg Oral tab 1 tab once daily 17. sulfamethoxazole- trimethoprim 800-160 mg Oral tab 1 tab 4 times per day three times per week 18. testosterone cypionate 200 mg/mL intramuscular oil 0.25 mL every 2 wks 19. trazodone 50 mg Oral tab 1 tab at bedtime 20. Ventolin HFA 90 mcg/actuation Nebulizer HFAA 2 puffs Every 4 hours, PRN Patient is out of medication at home 21. zolpidem 5 mg Oral tab 1 tab once daily - PMHx: GERD; HTN - hypertension; insomnia; KIDNEY STONES; - PSHx: Appendectomy; Cholecystectomy; knee-left; - Med Reconciliation:: Yellow Alert: The patient's home medication list is partly complete. However, additional information is required to complete list. Medications reviewed, completed by nurse using patient's med list. verbally from patient/family. - Immunization history: Flu vaccine is up to date. - Advance directive: There is no existing advanced directive. Information offered. - Family History:: mother is healthy. - Social History: Smoking status (Tobacco): Patient states he/she has never smoked tobacco. No barriers to communication noted, Speaks appropriately for age. Screenin:53 AUDIT 1. How often do you have a drink containing alcohol? edv Monthly or less (1 point) 2. How many standard drinks containing alcohol do you have on a t ypical day when drinking? 1 or 2 (0 points) 3. How often do you have five or more drinks on one occasion? Less than monthly (1 point). Drug Abuse Screening Test: 1. Have you used drugs other than those required for medical reasons? No (0 points), screen is complete, no risk. Abuse screen: Denies threats or abuse. Nutritional screening: The patient is obese. The patient uses crutches/cane to ambulate (15 points). Assessment: 11:04 See Triage Assessment. pt ambulated with walker to room dl2 mask in place. 11:35 The patient appears to have some mild discomfort, The dl2 patient is behaving appropriately according to age, cooperative. Neuro: No Neuro Deficit is noted. Cardiovascular: Rhythm is sinus tachycardia. Respiratory: Airway is patent. Respiratory effort is even, unlabored, Respiratory pattern is regular, symmetrical, Breath sounds are diminished bilaterally. Breath sounds with wheezes in left posterior lower lobe. GI: Abdomen is non- distended Bowel sounds present X 4 quads. : Patient denies burning with urination, inability to void. Derm: Skin is pink, warm & dry. Musculoskeletal: pt uses bilateral forearm crutches normally with steady gait. 12:11 Reassessment: No Change in symptoms. meds administered. dl2 Vital Signs: 10:50 BP 167 / 101; Pulse 116; Resp 20; Temp 97.4; Pulse Ox 93% edv on R/A; Weight 116.12 kg; Height 5 ft. 8 in. (172.72 cm); 11:30 Pulse Ox 92% on R/A; dl2 11:39 BP 145 / 90; Pulse 104; Resp 20; Temp 98.2(O); Pulse Ox 95% dl2 on 2 lpm NC; Pain 9/10; 12:11 BP 129 / 83; Pulse 96; Resp 18; Pulse Ox 95% ; dl2 13:02 BP 125 / 81; Pulse 92; Resp 18; Temp 97.0; Pulse Ox 95% ; sj 13:51 BP 118 / 76; Pulse 90; Resp 16; Pulse Ox 94% on R/A; dl2 14:30 BP 116 / 80; Pulse 90; Resp 18; T emp 97.2; Pulse Ox 94% on sj R/A; 10:50 Body Mass Index 38.92 (116.12 kg, 172.72 cm) edv 11:39 across chest dl2 Vitals: 14:55 Vitals are Complete in accordance with Emergency Department sj Policy. ED Course: 10:31 Reyes Argueta MD is Referring Provider. at4 10:46 Patient arrived in ED. EDMS 10:49 Triage completed. edv 10:50 Arm band placed on right wrist. Patient placed in exam room edv Patient has correct armband on for positive identification. 10:51 Mateo Rodríguez is Private Physician. edv 10:58 Jaime Allison PA is PHCP. tcm 10:58 Dagoberto Torres DO is Attending Physician. tcm 11:02 An EKG was obtained and reviewed by Jaime PEÑA. sl2 11:03 Cardiology EKG Interpretation - Choose Reason for Test Sent.sl2 11:39 Radiology: Patient to X-ray at 11:39. dl2 11:40 Patient has correct armband on for positive identification, dl2 Placed in gown, Bed in low position, Call light in reach, Side rails up X 1. service station helper on. Pulse on is on. NIBP on. 11:40 No procedures ordered. Labs drawn by ED staff. First set of dl2 blood cultures drawn by il Urine collected. Clean catch specimen. A swab for the respiratory panel was collected by Bettye Fortune. Inserted peripheral IV: 18 gauge in right antecubital area. Oxygen administration via nasal cannula & 2L/min. 13:06 The initial nebulized respiratory treatment has been dl2 administered by ED A subsequent nebulized respiratory treatment has been administered by ED Before the respiratory treatment: After the respiratory treatment: Breath sounds are clear Breath sounds are diminished in right posterior lower lobe. 14:01 Mateo Rodríguez is Referral Physician. tcm 14:50 Discontinued IV intact, bleeding controlled, pressure sj dressing applied, No redness/swelling at site. Administered Medications: 12:10 Drug: NS 0.9% 1000 ml [sodium chloride 0.9 % intravenous dl2 solution] Route: IV; Rate: 999 mL/hr; Site: right antecubital; 13:16 Follow up: IV Status: Completed infusion; IV Intake: 1000ml dl2 12:10 Drug: ketorolac 15 mg [ketorolac 30 mg/mL (1 mL) injection dl2 solution (0.5 mL)] Route: IVP; Site: right antecubital; 13:15 Follow up: Response: No change in condition dl2 12:10 Drug: DuoNeb - Albuterol-Ipratropium 3 ml dl2 [ipratropium-albuterol 0.5 mg-3 mg(2.5 mg base)/3 mL nebulization soln (3 mL)] Volume: 3 ml; Route: Nebulizer; 12:10 Drug: DuoNeb - Albuterol- Ipratropium 3 ml dl2 [ipratropium-albuterol 0.5 mg-3 mg(2.5 mg base)/3 mL nebulization soln (3 mL)] Volume: 3 ml; Route: Nebulizer; 13:15 Drug: DuoNeb - Albuterol-Ipratropium 3 ml dl2 [ipratropium-albuterol 0.5 mg-3 mg(2.5 mg base)/3 mL nebulization soln (3 mL)] Volume: 3 ml; Route: Nebulizer; 13:52 Follow up: Response: No change in condition dl2 13:51 Drug: Cephalexin 500 mg [cephalexin 250 mg capsule (2 dl2 caps)] Route: PO; 13:57 Follow up: Response: Medication administered at discharge. dl2 13:51 Drug: predniSONE 60 mg [prednisone 20 mg tablet (3 tabs)] dl2 Route: PO; 13:52 Follow up: Response: No change in condition dl2 13:52 Drug: Doxycycline 100 mg [doxycycline hyclate 100 mg dl2 capsule (1 caps)] Route: PO; 13:57 Follow up: Response: Medication administered at discharge. dl2 13:57 Not Given (d/carlos alberto by mdd): fentaNYL (PF) 50 mcg IVP once dl2 Intake: 13:16 IV: 1000ml; Total: 1000ml. dl2 Outcome: 14:01 Discharge ordered by MD. piper 14:50 Patient verbalized understanding of disposition sj instructions. Patient has no functional deficits. 14:50 Patient discharged to home ambulatory. 14:50 Condition: good 14:50 Discharge instructions given to patient, Patient was instructed on discharge instructions, follow up and referral plans. medication usage, safety practices, The patient demonstrated understanding of instructions, Prescriptions given X 4. 14:58 Patient left the ED. Signatures: Dispatcher [employer] EDGrant Balderas RN RN edv Jensen, Sandra, RN RN sj Toohill, Ashley, PA-C PA-C at4 Vita Frost NA NA sl2 Jaime Allison PA PA tcm Losey-Nandal, Dianna dl2 Name Value Range Interpretation Code Description Data [facility](s) Supporting Document(s) ID Date Data Source [id number] 08/23/2019 01:44:00 PM EDT [facility] This Respiratory Panel DOES NOT test for the Novel 2018- Coronovirus (2019- nCoV) from [facility]. If patient is suspected of having the Novel 2018 Coronovirus notify the Health Department IMMEDIATELY. Methodology: Multiplexed PCR Reference Range: None detected Name Value Range Interpretation Code Description Data [facility] Supporting Document(s) ID Date Data Source [id number] 08/23/2019 12:45:00 PM EDT [facility] Liter Flow: 0 On Oxygen? N Name Value Range Interpretation Code Description Data [facility] Supporting Document(s) D-Dimer Quant 223 ng/mLFEU <500 Normal (applies to non-numeric results) [facility] Negative for D-Dimer. This test has f ull FDA exclusion claim at a Negative cutoff value of 500 ng/mL FEU. When the d-dimer value is used in conjunction with the clinical pretest probability (PTP) assessment model to exclude DVT and PE, results less than 500 ng/mL are negative for DVT/PE. ID Date Data Source [id number] 08/23/2019 12:08:00 PM EDT [facility] Name Value Range Interpretation Code Description Data Agueda rce(s) Supporting Document(s) Sodium 140 mmol/L 137-145 Normal (applies to non-numeric resul ts) [facility] Potassium 3.5-5.1 Normal (applies to non-numeric resul ts) [facility] Chloride 105 mmol/L 98-112 Normal (applies to non-numeric resul ts) [facility] Carbon Dioxide CO2 22.0-33.0 Normal (applies to non-numer ic results) [facility] Anion Gap 4.0-11.0 Normal (applies to non-numeric resul ts) [facility] BUN 15 mg/dL 9-20 Normal (applies to non-numeric resul ts) [facility] Creatinine 0.80-1.50 Normal (applies to non-numeric resul ts) [facility] GFR 83 mL/min >60 Normal (applies to non-numeric resul ts) [facility] Result based on MDRD formula. Glucose Level 97 mg/dL 74-99 Normal (applies to non-numeric re sults) [facility] The reference range is only applicable w hen fasting. Calcium-Uncorrected 8.4-10.2 Normal (applies to non-nume pako results) [facility] Corrected Calcium 8.4-10.2 Normal (applies to non-numeri c results) [facility] Bilirubin,Total 0.2-1.3 Normal (applies to non-numeric results) [facility] SGOT(AST) 44 U/L 17-59 Normal (applies to non-numeric resul ts) [facility] SGPT(ALT) 80 U/L 21-[address] [facility] Alkaline Phosphatase 99 U/L 38-126 Normal (applies to non-num emilia results) [facility] can increase Alkaline Phosp le vels up to 2 times the normal adult value. Normal values for children and adolescents are 2 to 3 times the normal adult value. Total Protein 6.3-8.2 Normal (applies to non-numeric re sults) [facility] Albumin 3.5-5.0 Normal (applies to non-numeric resul ts) [facility] ID Date Data Source [id number] 08/23/2019 12:08:00 PM EDT [facility] Name Value Range Interpretation Code Description Data Agueda rce(s) Supporting Document(s) B-Type Natriuretic Peptide BNP 5 pg/mL <125 N ormal (applies to non-numeric results) [facility] NT-proBNP values less than 300 pg/mL hav e a 99% negative predictive value for excluding acute congestive heart failure. A diagnostic NT-proBNP cutoff of 900 pg/mL has been suggested in adults over 50 years of age in the absence of renal failure. A cutoff of 1200 pg/mL for patients with GFR <60 yields a diagnostic sensitivity and specificity of 89% and 72% for acute congestive failure. ID Date Data Source [id number] 08/23/2019 12:06:00 PM EDT [facility] Name Value Range Interpretation Code Description Data Agueda rce(s) Supporting Document(s) Troponin I 0.000-0.045 Normal (applies to non-numeric resu lts) [facility] ID Date Data Source [id number] 08/23/2019 11:56:00 AM EDT [facility] Name Value Range Interpretation Code Description Data Agueda rce(s) Supporting Document(s) White Blood Count 4.8-10.8 Normal (applies to non-numeri c results) [facility] Red Blood Count 4.35-6.08 Normal (applies to non-numeric results) [facility] Hemoglobin 13.0-17.5 Normal (applies to non-numeric resul ts) [facility] Hematocrit 37.7-51.0 Normal (applies to non-numeric resul ts) [facility] Mean Corpuscular Volume 80-94 Normal (applies to non- numeric results) [facility] Mean Corpuscular Hemoglobin 27.0-33.0 Normal (appli es to non-numeric results) [facility] Mean Corpuscular HGB Conc 32.0-36.0 Normal (applies to no n-numeric results) [facility] Red Cell Distribution Width 11.5-14.5 Normal (appli es to non-numeric results) [facility] Platelet Count 224 X10 3/uL 130-450 Normal (applies to non-numeric results) [facility] Mean Platelet Volume 9.6-13.1 Normal (applies to non-num emilia results) [facility] Imm Grans% (AUTO) 1 % 0-2 Normal (applies to non-numeri c results) [facility] Neutrophils % (AUTO) 50 % 40-75 Normal (applies to non-num emilia results) [facility] Lymphocytes % (AUTO) 34 % 21-46 Normal (applies to non-num emilia results) [facility] Monocytes % (AUTO) 11 % 5-12 Normal (applies to non-numer ic results) [facility] Eosinophils % (AUTO) 4 % 1-5 Normal (applies to non-num emilia results) [facility] Basophils % (AUTO) 1 % 0-1 Normal (applies to non-numer ic results) [facility] Imm Grans# (AUTO) 0.00-0.50 Normal (applies to non-numeri c results) [facility] Neutrophils # (AUTO) 1.5-8.1 Normal (applies to non-num emilia results) [facility] Lymphocytes # (AUTO) 1.0-3.1 Normal (applies to non-num emilia results) [facility] Monocytes # (AUTO) 0.2-1.3 Normal (applies to non-numer ic results) [facility] Eosinophils# (AUTO) 0.0-0.5 Normal (applies to non-nume pako results) [facility] Basophils # (AUTO) 0.00-0.10 Normal (applies to non-numer ic results) [facility] ID Date Data Source [id number] 08/23/2019 11:48:00 AM EDT [facility] Liter Flow: 0 On Oxygen? N Name Value Range Interpretation Code Description Data Agueda rce(s) Supporting Document(s) Venous PH 7.31-7.[address] [facility] VBG PCO2 39 mmHg 42-55 Below low normal [facility] VBG PO2 65 mmHg 30-[address] [facility] VBG HCO3 24.0-28.0 Normal (applies to non-numeric resul ts) [facility] ID Date Data Source [id number] 08/23/2019 12:04:00 PM EDT [facility] Liter Flow: 0 On Oxygen? N Name Value Range Interpretation Code Description Data Agueda rce(s) Supporting Document(s) Color,Urine Yellow Normal (applies to non-numeric resu lts) [facility] Clarity,Urine Clear Normal (applies to non-numeric re sults) [facility] Specific Lindsay,Urine 1.001-1.030 Normal (applies to non- numeric results) [facility] PH,Urine 5.0-8.0 Normal (applies to non-numeric resul ts) [facility] Protein,Urine Negative Normal (applies to non-numeric re sults) [facility] Glucose,Urine (UA) Negative Normal (applies to non-numer ic results) [facility] Ketones,Urine Negative Normal (applies to non-numeric re sults) [facility] Blood,Urine Negative Normal (applies to non-numeric resu lts) [facility] Bilirubin,Urine Negative Normal (applies to non-numeric results) [facility] Urobilinogen,Urine Norm 0.2-1 Normal (applies to non-numer ic results) [facility] Leukocyte Esterase,Urine Negative Normal (applies to non -numeric results) [facility] Nitrite,Urine Negative Normal (applies to non-numeric re sults) [facility] ID Date Data Source [id number] 08/24/2019 12:27:00 PM EDT [facility] Name: JHON PATE : 7 Age/Sex: 44M Ordering Provider: MARIANA Varela Med Rec #: [id number] Reg Status: [facility] ER Room #: Date of Service: 08/23/19 Report Number: [id number] cc:Mateo Rodríguez MD Send Report To: [id number] XRP/XR Chest 2 View [Pa & Lat] Reason for exam: SHORTNESS OF BREATH FINDINGS: Mild cardiomegaly noted. Pulmonary venous hypertension. Some linearbibasilar atelectasis noted. No other significant findings otherwise noted. IMPRESSION: Some bibasilar atelectasis. No other significant findings. Fluoroscopy time in seconds: 0 Number of Exposures: Time Portable Image Performed: Contrast Agent in ml: Method of Administration: REPORT SIGNATURE ON FILE Reported By: Woody Jackson MD <Electronically signed by Kaela Jackson MD> 08/26/19 0839 Dictation Date/Time: 08/23/19 1243 Transcribed Date/Time: 08/24/19 1227 It Network Engineer: LYNETTE Name Value Range Interpretation Code Description Data Agueda rce(s) Supporting Document(s) ID Date Data Source [id number] 08/24/2019 11:34:00 AM EDT [facility] Name: JHON PATE : 7 Age/Sex: 44M Ordering Provider: Dagoberto Torres DO Med Rec #: [id number] Reg Status:[facility] Room #: Date of Service: 08/23/19 Report Number: [id number] cc: Mateo Rodríguez MD; Dagoberto Torres DO Send Report To: Reason for exam: Hypertension SINUS TACHYCARDIA ABNORMAL RHYTHM ECG Compared to 07/05/2019 there is no significant change Physician Delinquent Tax Collection Assistant: Brian Mai M.D. ECG HEART RATE: 107 /min ECG RR INTERVAL: 560 ms ECG P DURATION: 128 ms ECG QRS DURATION: 110 ms ECG [place] INTERVAL: 152 ms ECG QT INTERVAL: 342 ms ECG QTC INTERVAL: 424 ms Q-T dispersion: ms ECG P AXIS: 45 deg ECG QRS AXIS: -6 deg ECG T AXIS: -4 deg REPORT SIGNATURE ON FILE 08/24/19 1135 Reported By: Brian Mai MD, [facility] <<Signature on File>> Exam Date/Time: 08/23/19 1059 Order #: [id number] Dictation Date/Time: 08/24/19 1134 Transcribed Date/Time: 08/24/19 113 It Network Engineer: TOBY Name Value Range Interpretation Code Description Data Agueda rce(s) Supporting Document(s) ID Date Data Source [id number] 07/08/2019 09:55:00 AM EST [facility] Name Value Range Interpretation Code Description Data Agueda rce(s) Supporting Document(s) Potassium 3.5-5.1 Normal (applies to non-numeric resul ts) [facility] ID Date Data Source [id number] 07/08/2019 09:35:00 AM EST [facility] Name Value Range Interpretation Code Description Data Agueda rce(s) Supporting Document(s) White Blood Count 4.8-10.8 Above high normal [facility] Red Blood Count 4.35-6.08 Normal (applies to non-numeric results) [facility] Hemoglobin 13.0-17.5 Normal (applies to non-numeric resul ts) [facility] Hematocrit 37.7-51.0 Normal (applies to non-numeric resul ts) [facility] Mean Corpuscular Volume 80-94 Normal (applies to non- numeric results) [facility] Mean Corpuscular Hemoglobin 27.0-33.0 Normal (appli es to non-numeric results) [facility] Mean Corpuscular HGB Conc 32.0-36.0 Normal (applies to no n-numeric results) [facility] Red Cell Distribution Width 11.5-14.5 Above high normal [facility] Platelet Count 293 X10 3/uL 130-450 Normal (applies to non-numeric results) [facility] Mean Platelet Volume 9.6-13.1 Normal (applies to non-num emilia results) [facility] ID Date Data Source [id number] 07/07/2019 06:55:00 AM [facility] Name Value Range Interpretation Code Description Data Agueda rce(s) Supporting Document(s) Sodium 137 mmol/L 137-145 Normal (applies to non-numeric resul ts) [facility] Potassium 3.5-5.1 Normal (applies to non-numeric resul ts) [facility] Chloride 104 mmol/L 98-112 Normal (applies to non-numeric resul ts) [facility] Carbon Dioxide CO2 22.0-33.0 Normal (applies to non-numer ic results) [facility] Anion Gap 4.0-11.0 Normal (applies to non-numeric resul ts) [facility] BUN 17 mg/dL 9-20 Normal (applies to non-numeric resul ts) [facility] Creatinine 0.80-1.50 Normal (applies to non-numeric resul ts) [facility] GFR 70 mL/min >60 Normal (applies to non-numeric resul ts) [facility] Result based on MDRD formula. Glucose Level 137 mg/dL 74-99 Above high normal [facility] The reference range is only applicable w hen fasting. Calcium-Uncorrected 8.4-10.2 Normal (applies to non-nume pako results) [facility] Corrected Calcium 8.4-10.2 Normal (applies to non-numeri c results) [facility] ID Date Data Source [id number] 07/07/2019 06:41:00 AM EST [facility] Name Value Range Interpretation Code Description Data Agueda rce(s) Supporting Document(s) White Blood Count 4.8-10.8 Above high normal [facility] Red Blood Count 4.35-6.08 Normal (applies to non-numeric results) [facility] Hemoglobin 13.0-17.5 Normal (applies to non-numeric resul ts) [facility] Hematocrit 37.7-51.0 Normal (applies to non-numeric resul ts) [facility] Mean Corpuscular Volume 80-94 Normal (applies to non- numeric results) [facility] Mean Corpuscular Hemoglobin 27.0-33.0 Normal (appli es to non-numeric results) [facility] Mean Corpuscular HGB Conc 32.0-36.0 Normal (applies to no n-numeric results) [facility] Red Cell Distribution Width 11.5-14.5 Above high normal [facility] Platelet Count 294 X10 3/uL 130-450 Normal (applies to non-numeric results) [facility] Mean Platelet Volume 9.6-13.1 Normal (applies to non-num emilia results) [facility] ID Date Data Source [id number] 07/05/2019 05:13:00 PM EST [facility] Name: JHON PATE [facility] Rec #: [id number] : 1975 Age/Sex: 43M Date of Service: 07/05/19 PHYSICIAN CHART Physician Documentation [facility] Name: Jhon Pate Age: 43 yrs Sex: Male : 1975 Arrival Date: 07/05/2019 Time: 17:13 Bed 3 Private MD: Mateo Rodríguez S ED Physician Kevin Crocker Disposition: 07/05 18:41 Attestation: I was present, saw, evaluated and participated aaq in the care with the Advanced Practice Provider. 21:05 Critical Care: not applicable. [facility] 21:[address] [facility] HPI: 18:34 This 43 yrs old Male presents to ER via Walk-In [facility] with complaints of Shortness Of Breath - - Facial Swelling left side. 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 recent admissions for respiratory failure thought to be secondary to bronchogenic organizing pneumonia. Patient states that yesterday he underwent a muscle biopsy under conscious sedation. The patient reports that early this morning around 4 AM he developed shortness of breath and chest tightness. Patient states that throughout the day today this is been progressively worsening. Chest tightness is constant and reportedly located across the entire chest. It does not radiate. No nausea or vomiting. No numbness, tingling or weakness. However, he does report shortness of breath which is much worse with exertional activities. No associated cough, fevers or chills. No URI symptoms. Additionally, patient states that he has a sensation that the left side of his face is swollen and painful. No associated dental pain. No abdominal pain or nausea/vomiting. Patient states that despite recent hospitalizations for respiratory failure he never required intubation and was able to tolerate high flow nasal cannula. He is a never smoker and denies vaping.. Historical: - Allergies: Tape (Hives); - PMHx: GERD; HTN - hypertension; insomnia; KIDNEY STONES; - PSHx: Appendectomy; Cholecystectomy; ROS: 18:36 Constitutional: Negative for fever, chills, and weight kojo loss. ENT: See HPI. Cardiovascular: See HPI. Respiratory: See HPI. Abdomen/GI: Negative for abdominal pain, nausea, vomiting, diarrhea, constipation. Skin: See HPI. Neuro: Negative for numbness, tingling, weakness. All other systems are negative. Exam: 18:46 Head/Face: Normocephalic, atraumatic. kojo 18:46 Constitutional: The patient appears alert, appears to be awake, appears comfortable, appears well developed, is well groomed, well hydrated, appears well nourished. 18:46 Eyes: Periorbital structures: appear normal, Pupils: PERRL, Conjunctiva: normal, Lids and lashes: appear normal. 18:46 ENT: External ear(s): are unremarkable, Ear canal(s): are normal, clear, TM's: are normal, no evidence of bulging, no erythema, no hemotympanum, no rupture, Nose: is normal, Mouth: Lips: normal, moist, Oral mucosa: normal, pink and intact, moist, Gums: normal with healthy appearance, Tongue: is normal, abscess, is not appreciated, drooling, is not appreciated, no trismus, Dental exam: normal, pain, is not appreciated, Voice: is normal. 18:46 Neck: Very subtle faint swelling noted at the angle of the jaw on the left side. No overlying erythema. It is mildly tender to palpation, but without crepitus, induration or fluctuance.. 18:46 Cardiovascular: Rate: tachycardic, Rhythm: regular, Pulses: Pulses are 2+ in right radial artery, right posterior tibial artery, right dorsalis pedis artery, left radial artery, left posterior tibial artery and left dorsalis pedis artery. Heart sounds: normal, normal S1and S2, no S3 or S4, no murmur, no rub, no gallop, Edema: is not appreciated. 18:46 Respiratory: the patient does not display signs of respiratory distress, Respirations: tachypnea, that is mild, Breath sounds: rales, that are mild, are located in both bases, decreased breath sounds. 18:46 Abdomen/GI: Inspection: abdomen appears normal, Bowel sounds: normal, in all quadrants, Palpation: abdomen is soft and non-tender, in all quadrants. 18:46 Musculoskeletal/extremity: DVT Exam: No signs of deep vein thrombosis. no pain, no swelling, no tenderness, negative Homans' sign noted on exam, no appreciated bluish discoloration, no erythema, no increased warmth. 18:46 Skin: pink, warm, dry. 18:46 Neuro: Orientation: is normal, Cranial nerves: grossly normal. 18:46 Psych: Behavior/mood is pleasant, cooperative, Affect is calm. Vital Signs: 17:18 BP 155 / 100; Pulse 96; Resp 20; Temp 98; Pulse Ox 94% on mp1 R/A; 19:15 BP 153 / 97; Pulse 103; Resp 18; Pulse Ox 95% on R/A; arj 22:30 BP 135 / 84; Pulse 100; Resp 20; Temp 98.0(TE); Pulse Ox arj 95% on 3 lpm NC; MDM: 17:47 Patient medically screened. kojo 18:48 Case presented to: Dr. Kevin Crocker. kojo 21:06 Data reviewed: vital signs, nurses notes, diagnostic data kojo from outside facility, old medical records, lab test result(s), EKG, radiologic studies, CT scan, plain films. 21:27 Antibiotic administration: Zosyn and Levaquin for kojo pseudomonal coverage. Data interpreted: Currently patient is on 4 L via nasal cannula to maintain oxygen saturations greater than 95%. Upon initial presentation to the emergency department he did have room air saturations as low as 88% as reported to me by patient's RN.. 21:54 ED course: NIF - 35 performed by respiratory. kojo 23:59 ED course: The patient presented to the emergency kojo department this evening with complaints of shortness of breath which began acutely around 4 AM this morning. Patient has complicated past medical history with several similar episodes in the past which have required lengthy hospitalizations. On initial exam patient is noted to be mildly tachypneic but otherwise overall well-appearing and speaking in full sentences. Chest x-ray demonstrates mild left lower lung atelectasis, borderline cardiomegaly but no infiltrate as read by radiology. Laboratory studies are reassuring. He has no leukocytosis, or anemia on CBC. Metabolic panel demonstrates mild decline in GFR in comparison to baseline, as well as mild to bilirubin elevation and ALT elevation, but otherwise is unremarkable. Troponin is less than 0.045 and d- dimer is under 500. Patient is requiring supplemental oxygen in order to maintain saturations greater than 95%. He has received DuoNeb x3, Solu-Medrol as well as magnesium. I did pursue CT PE study despite unremarkable d-dimer given his presentation which demonstrated no evidence of PE. Given history of BOOP I will treat with antibiotics with pseudomonal coverage including Zosyn as well as Levaquin. I have recommended admission to the hospital for continued management which she is agreeable with.. 07/05 18:04 Order name: Cbc With Auto Differential; Complete Time: 18:49[facility] 07/05 18:04 Order name: COMMET; Complete Time: 21:26 [facility] 07/05 18:04 Order name: Troponin I [facility] 07/05 18:04 Order name: Lipase [facility] 07/05 18:04 Order name: BNP [facility] 07/05 18:04 Order name: UA.; Complete Time: 19:45 [facility] 07/05 18:04 Order name: Cardiology EKG Interpretation - Choose Reason [facility] for Test 07/05 18:04 Order name: Chest Xray - portable; Complete Time: 18:49 [facility] 07/05 18:49 Interpretation: Laquita michelle Brian - 07/05/2019 6:18:[address] [facility] Mild left lower lung atelectasis. Borderline cardiomegaly. No infiltrate. . 07/05 18:04 Order name: Respiratory Panel (Use Workup); Complete Time: [facility] 19:46 07/05 19:46 Interpretation: Within normal limits. [facility] 07/05 18:04 Order name: VBG [facility] 07/05 18:04 Order name: D-Dimer [facility] 07/05 19:27 Order name: Bilirubin,Direct [facility] 07/05 19:51 Order name: CT Chest for PE with Contrast [facility] 07/05 20:44 Interpretation: I mpression No evidence for pulmonary okjo embolism. Trace pericardial effusion. Findings suggest early congestive failure Hepatic steatosis. The exam demonstrates a cholecystectomy. 07/05 18:04 Order name: Collect Urine - Clean Catch; Complete Time: kojo 18:32 07/05 18:04 Order name: Saline Lock; Complete Time: 18:32 [facility] 07/05 18:04 Order name: Monitor - Cardiac, Place on Patient; Complete kojo Time: 18:15 07/05 18:04 Order name: Monitor on Patient - Pulse Oximetry; Complete kojo Time: 18:15 07/05 18:04 Order name: Emergency Room EKG Order - Use EKG Work-Up kojo /Quick Select; Complete Time: 18:38 07/05 18:04 Order name: Collect nasal swab; Complete James e: 18:35 [facility] 07/05 21:08 Order name: Admit to Inpatient [facility] 07/05 18:04 Order name: Oxygen; Complete Time: 18:15 kojo Dispensed Medi cations: 18:38 Drug: NS 0.9% 1000 ml [sodium chloride 0.9 % injection jh6 solution] Route: IV; Rate: 150 mL/hr; Site: right forearm; 22:53 Follow up: IV Status: Infusion continued upon admission to [facility]. 18:50 Drug: DuoNeb - Albuterol-Ipratropium 3 ml jh6 [ipratropium-albuterol 0.5 mg-3 mg(2.5 mg base)/3 mL nebulization soln (3 mL)] Route: Nebulizer; 19:10 Follow up: Response: No adverse reaction; Shortness of ar breath improved. 19:56 Drug: fentaNYL (PF) 50 mcg [fentanyl (PF) 50 mcg/mL arj injection solution (1 mL)] Route: IVP; Site: right antecubital; 20:10 Follow up: Response: No adverse reaction; Pain is decreased arj 21:45 Drug: Zosyn 4.5 grams [Zosyn 3.375 gram intravenous arj solution] Route: IVPB; Site: right antecubital; 22:41 Follow up: Response: No adverse reaction; IV Status: arj Completed infusion; IV Intake: 100ml 21:45 Drug: Solu-MEDROL 125 mg [Solu-Medrol (PF) 125 mg/2 mL arj solution for injection (2 mL)] Route: IVP; Site: right antecubital; 22:00 Follow up: Response: Shortness of breath improved. [facility] 21:45 Drug: DuoNeb - Albuterol-Ipratropium 3 ml arj [ipratropium-albuterol 0.5 mg-3 mg(2.5 mg base)/3 mL nebulization soln (3 mL)] Route: Nebulizer; 22:10 Follow up: Response: Shortness of breath improved. [facility] 21:45 Drug: DuoNeb - Albuterol-Ipratropium 3 ml arj [ipratropium-albuterol 0.5 mg-3 mg(2.5 mg base)/3 mL nebulization soln (3 mL)] Route: Nebulizer; 22:10 Follow up: Response: Shortness of breath improved. [facility] 22:40 Not Given (administered on floorr): levo floxacin 750 mg arj IVPB once; order lactate and/or blood cultures if for sepsis 22:51 Drug: Magnesium Sulfate 2 grams [magnesium sulfate 2 arj gram/50 mL (4 %) in water intravenous piggyback] Route: IV; Rate: calculated rate; Infused Over: 20 mins; Site: right antecubital; 22:51 Follow up: IV Status: Infusion continued upon admission to [facility]. Disposition Summary: 07/05/19 21:06 Hospitalization Ordered Hospitalization Status: Inpatient Admission kojo Provider: Noe Xiong Location: Med-Surg [facility] Condition: Fair [facility] Room Assignment: [id number](07/05/19 21:09) sf2 Diagnosis - Respiratory failure, unspecified with hypoxia kojo - Chest pain, unspecified kojo Additional Information - Patient Status Inpatient. kojo Forms: - Medication Reconciliation kojo - BJORN varma Signatures: Dispatcher [employer] EDWoody Abreu, RN RN mp1 Kassy Esquivel PA-C PAMiguel AngelC Yaneth Salvador sf2 Keiry Leiva NA NA jmg Howe, Jesse, RN RN jh6 Kevin Crocker MD MD aaq Johnson, Abigail RN RN arj Corrections: (The following items were deleted from the chart) 19:51 19:49 CT Chest w Contrast+CT.RAD.CAN ordered. EDMS EDMS 21:09 21:06 kojo sf2 Name Value Range Interpretation Code Description Data Agueda rce(s) Supporting Document(s) ID Date Data Source [id number] 07/05/2019 05:13:00 PM [facility] Name: JHON PATE [facility] Rec #: [id number] : 1975 Age/Sex: 43M Date of Service: 07/05/19 DISPOSITION SUMMARY Discharge Summary [facility] Name:Jhon Pate Emergency Department Age:43 yrs Sex:Male :1975 Arrival:07/05/2019 17:13 Departure Date07/05/2019 Departure Time23:20 Private MD:Mateo Rodríguez Outcome: Hospitalize Location: Med-Surg 2 Condition: Fair Chief Complaint: Shortness Of Breath - - Facial Swelling left side Diagnosis: Respiratory failure, unspecified with hypoxia, Chest pain, unspecified Prescriptions: Custom Notes: Attending Physician: Kevin Crocker MD Private MD: Mateo Rodríguez Mid Level Provider: Kassy Esquivel PA-C Hospitalizing Provider: Noe Xiong RNP Orders: Cbc With Auto Differential, COMMET, Troponin I, Lipase, BNP, UA., Cardiology EKG Interpretation - Choose Reason for Test, Chest Xray - portable, Respiratory Panel (Use Workup), VBG, D-Dimer, Bilirubin,Direct, Chest CT w/contrast, CT Chest for PE with Contrast, Collect Urine - Clean Catch, Saline Lock, Albuterol-Ipratropium, Monitor - Cardiac, Place on Patient, Monitor on Patient - Pulse Oximetry, Emergency Room EKG Order - Use EKG Work-Up /Quick Select, Collect nasal swab, NS 0.9%, fentaNYL (PF), Admit to Inpatient, levofloxacin, Zosyn, Solu-MEDROL, Albuterol- Ipratropium, Albuterol-Ipratropium, Magnesium Sulfate, Oxygen Discharge Instruction: Medication Reconciliation, [facility]AR Name Value Range Interpretation Code Description Data Agueda rce(s) Supporting Document(s) ID Date Data Source [id number] 07/05/2019 05:13:00 PM [facility] Name: JHON PATE [facility] Rec #: [id number] : 1975 Age/Sex: 43M Date of Service: 07/05/19 NURSE CHART Nurse's Notes [facility] Name: Jhon Pate Age: 43 yrs Sex: Male : 1975 Arrival Date: 07/05/2019 Time: 17:13 Bed 3 Private MD: Mateo Rodríguez S Diagnosis: Respiratory failure, unspecified with hypoxia;Chest pain, unspecified Presentation: 07/05 17:16 Transition of care: patient was not received from another [facility] setting of care. Presenting complaint: Patient states - Began to feel sob this morning, had a couple invasive tests yesterday in Radiology. Patient denies any travel outside the [place] in the last 30 days. Patient denies exposure to sick international traveler in last 30 days. 17:16 Method Of Arrival: Walk-In [facility] 17:16 Acuity: Urgent - 3 [facility] Triage Assessment: 17:17 SEPSIS SCREEN: A Confirmed or Suspected Infection is 1 Unknown, their temperature is not <96.8 or >100.9, their heart rate is not >90, their RR is not >20, it is unknown if their WBC is <4 or > 12, the patient does not have new or unexplained altered mental status. SIRS or Sepsis criteria is not present. The patient appears to have some mild discomfort, The patient is cooperative. Respiratory: the patient has moderate shortness of breath. Historical: - Allergies: Tape (Hives); - PMHx: GERD; HTN - hypertension; insomnia; KIDNEY STONES; - PSHx: Appendectomy; Cholecystectomy; Screenin:33 AUDIT 1. How often do you have a drink containing alcohol? jh6 Monthly or less (1 point) 2. How many standard drinks containing alcohol do you have on a typical day when drinking? 1 or 2 (0 points) 3. How often do you have five or more drinks on one occasion? Never (0 points) Total Initial Score: Male <4, screening complete, low risk. Drug Abuse Screening Test: 1. Have you used drugs other than those required for medical reasons? No (0 points), screen is complete, no risk. Abuse screen: Denies threats or abuse. Nutritional screening: No deficits noted. The patient has IV access (20 points). The patient is hooked up to a monitor (20 points). The patient is a MODERATE FALL RISK (Dobson S javy=25-45 pts). Fall prevention measures have been instituted. Side rails are up, patient is being reassessed frequently, Family Present and informed to notify staff if they need to leave the bedside. Assessment: 18:33 See Triage Assessment. Cardiovascular: Rhythm is sinus jh6 rhythm. Respiratory: Airway is patent. Respiratory effort is even, Increased WOB, Respiratory pattern is regular, symmetrical. Vital Signs: 17:18 BP 155 / 100; Pulse 96; Resp 20; Temp 98; Pulse Ox 94% on mp1 R/A; 19:15 BP 153 / 97; Pulse 103; Resp 18; Pulse Ox 95% on R/A; arj 22:30 BP 135 / 84; Pulse 100; Resp 20; Temp 98.0(TE); Pulse Ox arj 95% on 3 lpm NC; ED Course: 17:14 Patient arrived in ED. sjy 17:15 Mateo Rodríguez is Private Physician. mp1 17:17 Triage completed. mp1 17:19 Arm band placed on right wrist. Patient has correct armband mp1 on for positive identification. 17:37 Bolivar Mackenzie, PERI is Primary Nurse. [facility] 17:41 Kassy Esquivel PA-C is [facility]. kojo 17:41 Kevin Crocker MD is Attending Physician. [facility] 18:15 service station helper on. Pulse on is on. NIBP on. [facility] 18:15 Oxygen administration via nasal cannula & 2L/min. [facility] 18:32 Labs drawn by lab staff. Inserted saline lock: 20 gauge in [facility] right forearm. 18:37 An EKG was obtained and reviewed by Kassy Esquivel PA-C. [facility] 18:38 Cardiology EKG Interpretation - Choose Reason for Test Sent.[facility] 18:59 Radiology: a portable X-ray was completed at 18:00. [facility] 18:59 Urine collected. Clean catch specimen. [facility] 19:07 Primary Nurse role handed off by Bolivar Mackenzie RN [facility] 19:08 Marietta Boyd, PERI is Primary Nurse. ar 20:05 Radiology: The patient went to get his/her CT at 20:05. ar 20:08 Radiology: Patient returned from CT at 20:08. [facility] 21:05 Noe Xiong RNP is Hospitalizing Provider. kojo 21:25 DIRECTOR ALUMNI RELATIONS called to bedside to perform NIF measurement on pt. Pt pj set up in reyna's position, nasal clamp applied to nares and pt directed to exhale entirely prior to inhalation measurement reading. DIRECTOR ALUMNI RELATIONS measured 3 best attempts. -20, -25, -35 cmH20. SATINDER Anderson at bedside and notified of results. Pt able to perform with encouragement. Pt exhibited moderate dry coughing episodes with exertion. 22:54 No procedures ordered. arj Administered Medications: 18:38 Drug: NS 0.9% 1000 ml [sodium chloride 0.9 % injection jh6 solution] Route: IV; Rate: 150 mL/hr; Site: right forearm; 22:53 Follow up: IV Status: Infusion continued upon admission to [facility]. 18:50 Drug: DuoNeb - Albuterol-Ipratropium 3 ml jh6 [ipratropium-albuterol 0.5 mg-3 mg(2.5 mg base)/3 mL nebulization soln (3 mL)] Route: Nebulizer; 19:10 Follow up: Response: No adverse reaction; Shortness of arj breath improved. 19:56 Drug: fentaNYL (PF) 50 mcg [fentanyl (PF) 50 mcg/mL arj injection solution (1 mL)] Route: IVP; Site: right antecubital; 20:10 Follow up: Response: No adverse reaction; Pain is decreased arj 21:45 Drug: Zosyn 4.5 grams [Zosyn 3.375 gram intravenous arj solution] Route: IVPB; Site: right antecubital; 22:41 Follow up: Response: No adverse reaction; IV Status: arj Completed infusion; IV Intake: 100ml 21:45 Drug: Solu-MEDROL 125 mg [Solu-Medrol (PF) 125 mg/2 mL arj solution for injection (2 mL)] Route: IVP; Site: right antecubital; 22:00 Follow up: Response: Shortness of breath improved. arj 21:45 Drug: DuoNeb - Albuterol-Ipratropium 3 ml arj [ipratropium-albuterol 0.5 mg-3 mg(2.5 mg base)/3 mL nebulization soln (3 mL)] Route: Nebulizer; 22:10 Follow up: Response: Shortness of breath improved. arj 21:45 Drug: DuoNeb - Albuterol-Ipratropium 3 ml arj [ipratropium-albuterol 0.5 mg-3 mg(2.5 mg base)/3 mL nebulization soln (3 mL)] Route: Nebulizer; 22:10 Follow up: Response: Shortness of breath improved. arj 22:40 Not Given (administered on floorr): levofloxacin 750 mg [facility] IVPB once; order lactate and/or blood cultures if for sepsis 22:51 Drug: Magnesium Sulfate 2 grams [magnesium sulfate 2 [facility] gram/50 mL (4 %) in water intravenous piggyback] Route: IV; Rate: calculated rate; Infused Over: 20 mins; Site: right antecubital; 22:51 Follow up: IV Status: Infusion continued upon admission to [facility]. Intake: 22:41 IV: 100ml; Total: 100ml. [facility] Outcome: 21:06 Decision to Hospitalize by Provider. kojo 21:30 Report given to PERI Smith 22:53 Reassessment: Visual reassessment shows no worsening [facility] symptoms, vital signs not warranted. 22:53 Patient verbalized understanding of disposition instructions. Patient has no functional deficits. 22:53 Patient admitted to Med/Surg, with NA family with patient, via stretcher, with oxygen, with chart. 22:53 Condition: stable 22:53 Discharge instructions given to patient, family, Patient was instructed on purpose of admission . The patient demonstrated understanding of instructions, Not Applicable. 22:53 Vitals are Complete in accordance with Emergency Department Policy. 23:20 Patient left the ED. [facility] 07/06 08:39 24 hour call back N/A - patient was admitted jh6 Signatures: Woody Flores, RN RN mp1 Kassy Esquivel PA-C PA-C jem Young, Scott sjy Gooshaw, Jennifer, NA NA jmg Howe, Jesse, RN RN 6 Marietta Boyd RN RN [facility] Tamara Khalil Name Value Range Interpretation Code Description Data Agueda rce(s) Supporting Document(s) ID Date Data Source [id number] 07/06/2019 03:46:00 PM [facility] Name: PAULAHENRYJHON Bong : 7 Age/Sex: 43M Ordering Provider: MARCELINA Taveras Med Rec #: [id number] Reg Status: ADM IN Room #: 210-2 Date of Service: 07/06/19 Report Number: [id number] cc:Mateo Rodríguez MD; Noe Stacy MARCELINA Xiong Send Report To: [id number] CT/CT Neck Soft Tissue w Contrast Reason for exam: stridor, left lateral neck pain, FINDINGS: The skull base appears normal. The parapharyngeal and parotid spacesappear normal. The submandibular and submental triangles are within normal limits. Two small nonspecific lymph nodes identified in the left jugulodigastric region on the left, one measures 5 mm the other measures 8 mm. One on the right measures 6 mm. There are no signs of any definite abnormalities to the retropharyngeal tissues. The true cords appear normal. Thyroid gland appears normal. Thoracic inlet is within n ormal limits. Lung apices are clear. IMPRESSION: No signs of any acute abnormalities identified. While performing the above CT exam, the following dose reduction techniques wereused: *Automated exposure control *Adjustment of the mA and/or kV according to patient size *Use of iterative reconstruction technique CT Dose in mSv: 1.3 Contrast Agent in ml: Isovue 300 85 Method of Administration: Intraveneous REPORT SIGNATURE ON FILE Reported By: Woody Jackson MD <Electronically signed by Kaela Jackson MD> 07/08/19 0859 Dictation Date/Time: 07/06/19 1529 Transcribed Date/Time: 07/06/19 1546 It Network Engineer: LYNETTE Name Value Range Interpretation Code Description Data Agueda rce(s) Supporting Document(s) ID Date Data Source [id number] 07/06/2019 06:34:00 AM [facility] Name Value Range Interpretation Code Description Data Agueda rce(s) Supporting Document(s) Venous PH 7.31-7.[address] [facility] VBG PCO2 36 mmHg 42-55 Below low normal [facility] VBG PO2 67 mmHg 30-[address] [facility] VBG HCO3 24.0-28.0 Below low normal [facility] Hospital ID Date Data Source [id number] 07/05/2019 08:43:00 PM EST [facility] Name: JHON PATE : 7 Age/Sex: 43M Ordering Provider: MARIANA Jenkins Med Rec #: [id number] Reg Status: REG ER Room #: Date of Service: 07/05/19 Report Number: [id number] cc:MARIANA Jenkins; Mateo Rodríguez MD Send Report To: CT - CTA Chest History: PD CHEST PAIN, SHORTNESS OF BREATH, HISTORY OF BOOP (Hx) Technique: CT CHEST FOR PE WITH CONTRAST Dose length product (mGy-cm): Not provided Reformations: MPR Contrast: With; APPLIED 56ml isovue 370 Comparison: CT Findings: There is no aortic dissection or aneurysm. There is no filling defects seen in the pulmonary arteries. No evidence for pulmonary embolism. Heart size is top normal. Trace pericardial effusion. No adenopathy within the mediastinum or hilar regions. Pulmonary vascular prominence with the scattered groundglass changes . Minimal dependent atelectasis lower lobes bilaterally No effusions or pneumothorax. No aggressive bony lesion. Hepatic steatosis. The exam demonstrates a cholecystectomy.Impressions: No evidence for pulmonary embolism. Trace pericardial effusion. Findings suggest early congestive failure Hepatic steatosis. The exam demonstrates a cholecystectomy. Fluoroscopy time in seconds: Number of Exposures: Time Portable Image Performed: Contrast Agent in ml: Isovue 370 54 Method of Administration: Intraveneous REPORT SIGNATURE ON FILE Reported By: Zachary Kim MD 07/05/192042 Dictation Date/Time: 07/05/192042 Transcribed Date/Time: 07/05/192042 It Network Engineer: Name Value Range Interpretation Code Description Data Agueda rce(s) Supporting Document(s) ID Date Data Source [id number] 07/05/2019 07:46:00 PM [facility] Not detectedNot detectedNot detectedNot detectedNot detectedNot detectedNot detectedNot detectedNot detectedNot detectedNot detectedNot detectedNot detectedNot detected Methodology: Multiplexed PCR Reference Range: None detectedNot detectedNot detectedNot detectedNot detected Name Value Range Interpretation Code Description Data Agueda rce(s) Supporting Document(s) ID Date Data Source [id number] 07/05/2019 08:53:00 PM [facility] Name Value Range Interpretation Code Description Data Agueda rce(s) Supporting Document(s) Sodium 138 mmol/L 137-145 Normal (applies to non-numeric resul ts) [facility] Potassium 3.5-5.1 Normal (applies to non-numeric resul ts) [facility] Chloride 106 mmol/L 98-112 Normal (applies to non-numeric resul ts) [facility] Carbon Dioxide CO2 22.0-33.0 Normal (applies to non-numer ic results) [facility] Anion Gap 4.0-11.0 Normal (applies to non-numeric resul ts) [facility] BUN 16 mg/dL 9-20 Normal (applies to non-numeric resul ts) [facility] Creatinine 0.80-1.50 Normal (applies to non-numeric resul ts) [facility] GFR 59 mL/min >60 Below low normal [facility] Result based on MDRD formula. Glucose Level 109 mg/dL 74-99 Above high normal [facility] The reference range is only applicable w hen fasting. Calcium-Uncorrected 8.4-10.2 Normal (applies to non-nume pako results) [facility] Corrected Calcium 8.4-10.2 Normal (applies to non-numeri c results) [facility] Bilirubin,Total 0.2-1.3 Above high normal [facility] SGOT(AST) 27 U/L 17-59 Normal (applies to non-numeric resul ts) [facility] SGPT(ALT) 76 U/L 21-[address] [facility] Alkaline Phosphatase 86 U/L 38-126 Normal (applies to non-num emilia results) [facility] can increase Alkaline Phosp le vels up to 2 times the normal adult value. Normal values for children and adolescents are 2 to 3 times the normal adult value. Total Protein 6.3-8.2 Normal (applies to non-numeric re sults) [facility] Albumin 3.5-5.0 Normal (applies to non-numeric resul ts) [facility] ID Date Data Source [id number] 07/05/2019 08:53:00 PM [facility] Name Value Range Interpretation Code Description Data Agueda rce(s) Supporting Document(s) Bilirubin,Direct 0.0-0.3 Normal (applies to non-numeric results) [facility] ID Date Data Source [id number] 07/05/2019 08:53:00 PM [facility] Name Value Range Interpretation Code Description Data Agueda rce(s) Supporting Document(s) Lipase 86 U/L 73-393 Normal (applies to non-numeric resul ts) [facility] ID Date Data Source [id number] 07/05/2019 08:53:00 PM [facility] Name Value Range Interpretation Code Description Data Agueda rce(s) Supporting Document(s) B-Type Natriuretic Peptide BNP 8 pg/mL <125 N ormal (applies to non-numeric results) [facility] NT-proBNP values less than 300 pg/mL hav e a 99% negative predictive value for excluding acute congestive heart failure. A diagnostic NT-proBNP cutoff of 900 pg/mL has been suggested in adults over 50 years of age in the absence of renal failure. A cutoff of 1200 pg/mL for patients with GFR <60 yields a diagnostic sensitivity and specificity of 89% and 72% for acute congestive failure. ID Date Data Source [id number] 07/05/2019 07:07:00 PM [facility] Name Value Range Interpretation Code Description Data Agueda rce(s) Supporting Document(s) Troponin I 0.000-0.045 Normal (applies to non-numeric resu lts) [facility] ID Date Data Source [id number] 07/05/2019 07:04:00 PM [facility] Name Value Range Interpretation Code Description Data Agueda rce(s) Supporting Document(s) D-Dimer Quant 249 ng/mLFEU <500 Normal (applies to non-numeric results) [facility] Negative for D-Dimer. This test has f ull FDA exclusion claim at a Negative cutoff value of 500 ng/mL FEU. When the d-dimer value is used in conjunction with the clinical pretest probability (PTP) assessment model to exclude DVT and PE, results less than 500 ng/mL are negative for DVT/PE. ID Date Data Source [id number] 07/05/2019 06:46:00 PM [facility] Liter Flow: 0 On Oxygen? N Name Value Range Interpretation Code Description Data Agueda rce(s) Supporting Document(s) Venous PH 7.31-7.[address] [facility] VBG PCO2 43 mmHg 42-55 Normal (applies to non-numeric resul ts) [facility] VBG PO2 41 mmHg 30-50 Normal (applies to non-numeric resul ts) [facility] VBG HCO3 24.0-28.0 Normal (applies to non-numeric resul ts) [facility] ID Date Data Source [id number] 07/05/2019 06:38:00 PM [facility] Name Value Range Interpretation Code Description Data Agueda rce(s) Supporting Document(s) White Blood Count 4.8-10.8 Normal (applies to non-numeri c results) [facility] Red Blood Count 4.35-6.08 Normal (applies to non-numeric results) [facility] Hemoglobin 13.0-17.5 Normal (applies to non-numeric resul ts) [facility] Hematocrit 37.7-51.0 Normal (applies to non-numeric resul ts) [facility] Mean Corpuscular Volume 80-94 Normal (applies to non- numeric results) [facility] Mean Corpuscular Hemoglobin 27.0-33.0 Normal (appli es to non-numeric results) [facility] Mean Corpuscular HGB Conc 32.0-36.0 Normal (applies to no n-numeric results) [facility] Red Cell Distribution Width 11.5-14.5 Above high normal [facility] Platelet Count 301 X10 3/uL 130-450 Normal (applies to non-numeric results) [facility] Mean Platelet Volume 9.6-13.1 Normal (applies to non-num emilia results) [facility] Imm Grans% (AUTO) 1 % 0-2 Normal (applies to non-numeri c results) [facility] Neutrophils % (AUTO) 77 % 40-75 Above high normal [facility] Lymphocytes % (AUTO) 17 % 21-46 Below low normal [facility] Monocytes % (AUTO) 5 % 5-12 Normal (applies to non-numer ic results) [facility] Eosinophils % (AUTO) 0 % 1-5 Below low normal [facility] Basophils % (AUTO) 0 % 0-1 Normal (applies to non-numer ic results) [facility] Imm Grans# (AUTO) 0.00-0.50 Normal (applies to non-numeri c results) [facility] Neutrophils # (AUTO) 1.5-8.1 Normal (applies to non-num emilia results) [facility] Lymphocytes # (AUTO) 1.0-3.1 Normal (applies to non-num emilia results) [facility] Monocytes # (AUTO) 0.2-1.3 Normal (applies to non-numer ic results) [facility] Eosinophils# (AUTO) 0.0-0.5 Normal (applies to non-nume pako results) [facility] Basophils # (AUTO) 0.00-0.10 Normal (applies to non-numer ic results) [facility] ID Date Data Source [id number] 07/05/2019 06:56:00 PM EST [facility] Name Value Range Interpretation Code Description Data Agueda rce(s) Supporting Document(s) Color,Urine Yellow Normal (applies to non-numeric resu lts) [facility] Clarity,Urine Clear Normal (applies to non-numeric re sults) [facility] Specific Lindsay,Urine 1.001-1.030 Normal (applies to non- numeric results) [facility] PH,Urine 5.0-8.0 [facility] Protein,Urine Negative Normal (applies to non-numeric re sults) [facility] Glucose,Urine (UA) Negative Normal (applies to non-numer ic results) [facility] Ketones,Urine Negative Normal (applies to non-numeric re sults) [facility] Blood,Urine Negative Normal (applies to non-numeric resu lts) [facility] Bilirubin,Urine Negative Normal (applies to non-numeric results) [facility] Urobilinogen,Urine Norm 0.2-1 Normal (applies to non-numer ic results) [facility] Leukocyte Esterase,Urine Negative Normal (applies to non -numeric results) [facility] Nitrite,Urine Negative Normal (applies to non-numeric re sults) [facility] ID Date Data Source [id number] 07/06/2019 01:51:00 PM [facility] Name: JHON PATE : 7 Age/Sex: 43M Ordering Provider: MARIANA Jenkins Med Rec #: [id number] Reg Status: ADM IN Room #: 210-2 Date of Service: 07/05/19 Report Number: [id number] cc:MARIANA Jenkins; Mateo Rodríguez MD Send Report To: [id number] XRP/XR Chest Xray Portable Reason for exam: CP, SOB Comparison: 03-22-19 FINDINGS: Mild left lower lung atelectasis. Borderline cardiomegaly. No effusion. Osseous structures unremarkable. IMPRESSION: Mild left lower lung atelectasis. Borderline cardiomegaly. No infiltrate. Fluoroscopy time in seconds: Number of Exposures: Time Portable Image Performed: 1807 Contrast Agent in ml: Method of Administration: REPORT SIGNATURE ON FILE Reported By: Bang Coelho DO <Electronically signed by Bang Coelho DO> 07/08/19 1045 Dictation Date/Time: 07/05/191818 Transcribed Date/Time: 07/06/19 1351 It Network Engineer: LYNETTE Name Value Range Interpretation Code Description Data Agueda rce(s) Supporting Document(s) ID Date Data Source [id number] 07/06/2019 09:17:00 PM [facility] Name: JHON PATE : 7 Age/Sex: 43M Ordering Provider: MARIANA Jenkins Med Rec #: [id number] Reg Status:ADM IN Room #: 210-2 Date of Service: 07/05/19 Report Number: [id number] cc: MARIANA Jenkins; Mateo Rodríguez MD; Milla Clement MD Send Report To: Reason for exam: CP/SOB SINUS RHYTHM MINIMAL VOLTAGE CRITERIA FOR LVH, CONSIDER NORMAL VARIANT NONSPECIFIC T-WAVE ABNORMALITY BORDERLINE ECG Physician Delinquent Tax Collection Assistant: David Ware M.D. ECG HEART RATE: 99 /min ECG RR INTERVAL: 604 ms ECG P DURATION: 116 ms ECG QRS DURATION: 112 ms ECG [place] INTERVAL: 148 ms ECG QT INTERVAL: 330 ms ECG QTC INTERVAL: 398 ms Q-T dispersion: ms ECG P AXIS: 44 deg ECG QRS AXIS: -18 deg ECG T AXIS: 0 deg REPORT SIGNATURE ON FILE 07/06/192116 Reported By: David Ware MD <<Signature on File>> Exam Date/Time: 07/05/19 1837 Order #: [id number] Dictation Date/Time: 07/06/192116 Transcribed Date/Time: 07/06/192116 It Network Engineer: TOBY Name Value Range Interpretation Code Description Data Agueda rce(s) Supporting Document(s) ID Date Data Source [id number] 07/05/2019 01:43:00 PM [facility] jenni Cardozo MD, Director [address] [place] [address] [place] [address] Name: JHON PATE Rec #: [id number]: 1975 Age/Sex: 43/M Attending Provider: Lorraine Loyd MD Date of Service: 07/04/19 Location: [facility] CC: MD Mateo Winslow MD Specimen: [id number] Received: Status: ANDREY Hale Num: [id number] Collected: Type: SURGICAL Subm Doc: Lorraine Loyd MD Collected By: Lorraine Loyd MD CLINICAL DIAGNOSIS Myopathy GROSS DESCRI PTION:Labeled "right vastus lateralis muscle biopsy and Jhon Pate". Submitted is a piece ofbrownish-red soft tissue measuring 2.8 x 1.8 x 1.2 cm. Tissue is obtained from the specimenwhich will be sent to [facility] for evaluation.[email or web address]/[email or web address] FINAL DIAGNOSIS:Please see [facility] report under patient's medical record number.elliott/[email or web address] Signed (signature on file) Jhon Méndez MD 07/05/19 1342 END OF REPORT Name Value Range Interpretation Code Description Data Agueda rce(s) Supporting Document(s) ID Date Data Source [id number] 07/08/2019 04:35:00 PM EST [facility] Name Value Range Interpretation Code Description Data Agueda rce(s) Supporting Document(s) IgG Index,CSF <=0.85 Normal (applies to non-numeric re sults) [facility] IgG,CSF <=8.1 Normal (applies to non-numeric resul ts) [facility] Albumin,CSF <=27.[address] [facility] pital IgG/Albumin,CSF <=0.21 Normal (applies to non-numeric results) [facility] Synthesis Rate,CSF <=12 Normal (applies to non-numer ic results) [facility] IgG,Serum 672 mg/dL 767 - 1590 [place] [facility] ital Albumin,S 4200 mg/dL Normal (applies to non-numeric resul ts) [facility] REFERENCE VALUE------ 3200 - 4800 IgG/Albumin,S <=0.40 Normal (applies to non-numeric re sults) [facility] Test Performed by: [facility] [address] [place] [address] Logistics Loss Prevention Manager: Noe Williamson M.D. Ph.D.; CLIA# [id number] ID Date Data Source [id number] 07/04/2019 03:32:00 PM EST [facility] Name Value Range Interpretation Code Description Data Agueda rce(s) Supporting Document(s) Tube Number,(CSF Fld) 1 Normal (applies to non-nu meric results) [facility] Volume,(CSF Fld) 1 mL Normal (applies to non-numeric results) [facility] Appearance,(CSF Fld) Normal (applies to non-num emilia results) [facility] Slide reviewed by Pathologist for conf irmation. 07/04/19 DR CARDOZO. This is a Corrected Result --- 07/04/19 1531 --- Appear(CSF Fld) previously reported as: Clear Color,(CSF Fld) Normal (applies to non-numeric results) [facility] RBC (CSF Fld) Normal (applies to non-numeric re sults) [facility] No established reference values WBC (CSF Fld) Normal (applies to non-numeric re sults) [facility] No established reference values Mononuclear %(CSF Fld) Normal (applies to non-n umeric results) [facility] No established reference values Polymononuclear %(CSF Fld) Normal (applies to n on-numeric results) [facility] No established reference values Mononuclear #(CSF Fld) Normal (applies to non-n umeric results) [facility] No established reference values Polymononuclear #(CSF Fld) Normal (applies to n on-numeric results) [facility] No established reference values Glucose,(CSF Fld) 73 mg/dL 40-70 Above high normal [facility] Total Protein,(CSF Fluid) 15-45 Above high normal [facility] ID Date Data Source [id number] 07/04/2019 03:32:00 PM EST [facility] Name Value Range Interpretation Code Description Data Agueda rce(s) Supporting Document(s) Tube Number,(CSF Fld)b 4 Normal (applies to non-n umeric results) [facility] Appearance,(CSF Fld)Tube b Normal (applies to n on-numeric results) [facility] Slide reviewed by Pathologist for conf irmation. 07/04/19 DR CARDOZO This is a Corrected Result --- 07/04/19 1531 --- Appear(CSFFld)b previously reported as: Clear Color,(CSF Fld)Tube b Normal (applies to non-nu meric results) [facility] RBC (CSF Fld)Tube b Normal (applies to non-nume pako results) [facility] No established reference values WBC (CSF Fld)Tube b Normal (applies to non-nume pako results) [facility] No established reference values Mononuclear %(CSF Fld)Tube b Normal (applies to non-numeric results) [facility] No established reference values Polymononuclear%(CSF Fld)TubeB Normal (applies to non-numeric results) [facility] No established reference values Mononuclear #(CSF Fld) Tube b Normal (applies t o non-numeric results) [facility] No established reference values Polymononuclear#(CSF Fld)TubeB Normal (applies to non-numeric results) [facility] No established reference values ID Date Data Source [id number] 07/05/2019 01:28:00 PM [facility] Name Value Range Interpretation Code Description Data Agueda rce(s) Supporting Document(s) Immunoglobulin G result 628 mg/dL 610-1,616 Normal ( applies to non-numeric results) [facility] Test performed [place] [address] ID Date Data Source [id number] 07/04/2019 12:04:00 PM [facility] Name Value Range Interpretation Code Description Data Agueda rce(s) Supporting Document(s) Glucose Level 110 mg/dL 74-99 Above high normal [facility] The reference range is only applicable w hen fasting. ID Date Data Source [id number] 07/04/2019 01:56:00 PM [facility] Name: JHON PATE : 7 Age/Sex: 43M Ordering Provider: Lorraine Loyd MD Med Rec #: [id number] Reg Status:REG [facility] Room #: Date of Service: 07/04/19 Report Number: [id number] cc: Lorraine Loyd MD; Mateo Rodríguez MD Send Report To: Reason for exam: RPREOP SINUS TACHYCARDIA ABNORMAL RHYTHM ECG Compared to 05/07/2019 there is no significant change Physician Delinquent Tax Collection Assistant: Brian Mai M.D. ECG HEART RATE: 103 /min ECG RR INTERVAL: 578 ms ECG P DURATION: 118 ms ECG QRS DURATION: 106 ms ECG [place] INTERVAL: 141 ms ECG QT INTERVAL: 322 ms ECG QTC INTERVAL: 397 ms Q-T dispersion: ms ECG P AXIS: 56 deg ECG QRS AXIS: -5 deg ECG T AXIS: -3 deg REPORT SIGNATURE ON FILE 07/04/19 1357 Reported By: Brian Mai MD, [facility] <<Signature on File>> Exam Date/Time: 07/04/19 0930 Order #: [id number] Dictation Date/Time: 07/04/196 Transcribed Date/Time: 07/04/19 135 It Network Engineer: TOBY Name Value Range Interpretation Code Description Data Agueda rce(s) Supporting Document(s) ID Date Data Source [id number] 06/20/2019 06:33:00 PM [facility] Name Value Range Interpretation Code Description Data Agueda rce(s) Supporting Document(s) PT 9.2-11.7 Normal (applies to non-numeric results) [facility] INR Normal (applies to non-numeric results) [facility] The use of INR is restricted to patients on stable oral anticoagulant. Therapeutic Range: 2.0 - 3.0 High Risk Range: 2.5 - 3.5 ID Date Data Source [id number] 06/20/2019 06:33:00 PM [facility] Name Value Range Interpretation Code Description Data Agueda rce(s) Supporting Document(s) PTT 23.8-37.9 Normal (applies to non-numeric results) [facility] ID Date Data Source [id number] 06/20/2019 06:22:00 PM [facility] Name Value Range Interpretation Code Description Data Agueda rce(s) Supporting Document(s) Sodium 140 mmol/L 136-145 Normal (applies to non-numeric resul ts) [facility] Potassium 3.5-5.1 Normal (applies to non-numeric resul ts) [facility] Chloride 100 mmol/L 98-107 Normal (applies to non-numeric resul ts) [facility] Carbon Dioxide CO2 21-32 Normal (applies to non-numer ic results) [facility] Anion Gap 5.0-16.0 Normal (applies to non-numeric resul ts) [facility] BUN 14 mg/dL 7-18 Normal (applies to non-numeric results) [facility] Creatinine,Serum 0.8-1.5 Normal (applies to non-numeric results) [facility] GFR >60 Normal (applies to non-numeric results) [facility] Glucose Level 114 mg/dL 60-99 Above high normal [facility] Reference range is only applicable when patient is fasting Note the following drug interference: Sulfasalazine Sulfapyridine Can see falsely depressed Can see falsely elevated result with up to 17% results with up to 11% decrease in measurement increase in measurement Recommend patients be collected for this test prior to administration of either drug. Calcium 8.5-10.1 Normal (applies to non-numeric resul ts) [facility] ID Date Data Source [id number] 06/20/2019 05:53:00 PM EST [facility] Name Value Range Interpretation Code Description Data Agueda rce(s) Supporting Document(s) White Blood Count 3.5-10.5 Above high normal [facility] Red Blood Count 4.30-5.70 Normal (applies to non-numeric results) [facility] Hemoglobin 13.5-17.5 Normal (applies to non-numeric resul ts) [facility] Hematocrit 38.8-50.0 Normal (applies to non-numeric resul ts) [facility] Mean Corpuscular Volume 81.2-95.1 Normal (applies to non- numeric results) [facility] Mean Corpuscular Hgb 25.6-32.2 Normal (applies to non-num emilia results) [facility] Mean Corpuscular Hgb Conc 32.0-36.0 Normal (applies to no n-numeric results) [facility] Red Cell Distribution Width 11.8-15.6 Normal (appli es to non-numeric results) [facility] Platelet Count 324 x10 3/uL 150-450 Normal (applies to non-numeric results) [facility] Mean Platelet Volume 9.4-12.4 Normal (applies to non-num emilia results) [facility] Neutrophils% (Auto) 31.0-71.0 Above high normal [facility] Lymphocytes% (Auto) 20.0-55.0 Below low normal [facility] Monocytes% (Auto) 4.0-12.0 Normal (applies to non-numeri c results) [facility] Eosinophils% (Auto) 1.0-8.0 Normal (applies to non-nume pako results) [facility] Basophils% (Auto) 0.0-2.0 Normal (applies to non-numeri c results) [facility] Immature Granulocytes% (Auto) 0.0-2.0 Normal (jovanni lies to non-numeric results) [facility] Neutrophils# (Auto) 1.50-6.20 Above high normal [facility] Lymphocytes# (Auto) 1.20-4.00 Normal (applies to non-nume pako results) [facility] Monocytes# (Auto) 0.00-0.90 Normal (applies to non-numeri c results) [facility] Eosinophils# (Auto) 0.00-0.50 Normal (applies to non-nume pako results) [facility] Basophils# (Auto) 0.00-0.20 Normal (applies to non-numeri c results) [facility] Immature Granulocytes# (Auto) 0.00-7.00 No rmal (applies to non-numeric results) [facility] ID Date Data Source [id number] 05/12/2019 08:30:00 AM EST [facility] Name Value Range Interpretation Code Description Data Agueda rce(s) Supporting Document(s) Sodium 139 mmol/L 137-145 Normal (applies to non-numeric resul ts) [facility] Potassium 3.5-5.1 Below low normal [facility] Chloride 106 mmol/L 98-112 Normal (applies to non-numeric resul ts) [facility] Carbon Dioxide CO2 22.0-33.0 Normal (applies to non-numer ic results) [facility] Anion Gap 4.0-11.0 Normal (applies to non-numeric resul ts) [facility] BUN 24 mg/dL 9-[address] [facility] Creatinine 0.80-1.50 Normal (applies to non-numeric resul ts) [facility] GFR 76 mL/min >60 Normal (applies to non-numeric resul ts) [facility] Result based on MDRD formula. Glucose Level 144 mg/dL 74-99 Above high normal [facility] The reference range is only applicable w hen fasting. Calcium-Uncorrected 8.4-10.2 Normal (applies to non-nume pako results) [facility] Corrected Calcium 8.4-10.2 Normal (applies to non-numeri c results) [facility] ID Date Data Source [id number] 05/12/2019 08:24:00 AM EST [facility] Name Value Range Interpretation Code Description Data Agueda rce(s) Supporting Document(s) White Blood Count 4.8-10.8 Above high normal [facility] Red Blood Count 4.35-6.08 Normal (applies to non-numeric results) [facility] Hemoglobin 13.0-17.5 Normal (applies to non-numeric resul ts) [facility] Hematocrit 37.7-51.0 Normal (applies to non-numeric resul ts) [facility] Mean Corpuscular Volume 80-94 Normal (applies to non- numeric results) [facility] Mean Corpuscular Hemoglobin 27.0-33.0 Normal (appli es to non-numeric results) [facility] Mean Corpuscular HGB Conc 32.0-36.0 Normal (applies to no n-numeric results) [facility] Red Cell Distribution Width 11.5-14.5 Normal (appli es to non-numeric results) [facility] Platelet Count 286 X10 3/uL 130-450 Normal (applies to non-numeric results) [facility] Mean Platelet Volume 9.6-13.1 Normal (applies to non-num emilia results) [facility] ID Date Data Source [id number] 05/11/2019 12:58:00 PM EST [facility] Name Value Range Interpretation Code Description Data Agueda rce(s) Supporting Document(s) Lactic Acid 3 Hour Post 0.4-2.0 Above high normal [facility] ID Date Data Source [id number] 05/11/2019 09:12:00 AM [facility] 3 hour post Lactic if elevated? Y Name Value Range Interpretation Code Description Data Agueda rce(s) Supporting Document(s) Lactic Acid 0.4-2.0 Above high normal [facility] ID Date Data Source [id number] 05/11/2019 09:18:00 AM [facility] Name Value Range Interpretation Code Description Data Agueda rce(s) Supporting Document(s) B-Type Natriuretic Peptide BNP 20 pg/mL <125 N ormal (applies to non-numeric results) [facility] NT-proBNP values less than 300 pg/mL hav e a 99% negative predictive value for excluding acute congestive heart failure. A diagnostic NT-proBNP cutoff of 900 pg/mL has been suggested in adults over 50 years of age in the absence of renal failure. A cutoff of 1200 pg/mL for patients with GFR <60 yields a diagnostic sensitivity and specificity of 89% and 72% for acute congestive failure. ID Date Data Source [id number] 05/10/2019 07:18:00 PM [facility] INITAL SPECIMEN NOT RUN, TO BE REDRAW Name Value Range Interpretation Code Description Data Agueda rce(s) Supporting Document(s) Lactic Acid 3 Hour Post 0.4-2.0 Above high normal [facility] ID Date Data Source [id number] 05/10/2019 12:12:00 PM [facility] Name Value Range Interpretation Code Description Data Agueda rce(s) Supporting Document(s) Color,Urine Yellow Normal (applies to non-numeric resu lts) [facility] Clarity,Urine Clear Normal (applies to non-numeric re sults) [facility] Specific Lindsay,Urine 1.001-1.030 Normal (applies to non- numeric results) [facility] PH,Urine 5.0-8.0 Normal (applies to non-numeric resul ts) [facility] Protein,Urine Negative Normal (applies to non-numeric re sults) [facility] Glucose,Urine (UA) Negative Normal (applies to non-numer ic results) [facility] Ketones,Urine Negative Normal (applies to non-numeric re sults) [facility] Blood,Urine Negative Normal (applies to non-numeric resu lts) [facility] Bilirubin,Urine Negative Normal (applies to non-numeric results) [facility] Urobilinogen,Urine Norm 0.2-1 Normal (applies to non-numer ic results) [facility] Leukocyte Esterase,Urine Negative Normal (applies to non -numeric results) [facility] Nitrite,Urine Negative Normal (applies to non-numeric re sults) [facility] ID Date Data Source [id number] 05/11/2019 08:48:00 PM EST [facility] Name Value Range Interpretation Code Description Data Agueda rce(s) Supporting Document(s) ANCA Myeloperoxidase IgG res Normal (applies to non-numeric results) [facility] REFERENCE VALUE------ <0.4 (Negative) ANCA Proteinase3 IgG result Normal (applies to non-numeric results) [facility] REFERENCE VALUE------ <0.4 (Negative) Test Performed by: [facility] [place] [address] Logistics Loss Prevention Manager: Noe Williamson M.D. Ph.D.; CLIA# [id number] ID Date Data Source [id number] 05/10/2019 11:00:00 AM EST [facility] Name Value Range Interpretation Code Description Data Agueda rce(s) Supporting Document(s) Procalcitonin 0.00-0.24 Normal (applies to non-numeric re sults) [facility] 1.Risk of Progression to severe sepsis a nd septic shock: < 0.50 ng/mL Low Risk of severe sepsis and/or septic shock > 2.00 ng/mL High Risk of severe sepsis and/or septic shock 2.Decision on antibiotic discontinuation for suspected or confirmed septic patients: Antibiotic therapy may be discontinued if the current PCT is <0.50 ng/mL or if there is an 80% decrease in PCT. 3.Decision for antibiotic therapy for patients with suspected or confirmed Lower Respiratory Tract Infection (LRTI): >0.25 ng/mL - Antibiotic therapy encouraged 4.Decision on antibiotic discontinuation for patients with suspected or confirmed LRTI: Antibiotic therapy may be discontinued if the current PCT is <0.25 ng/mL or if there is an 80% decrease in PCT. NOTE: Antibiotic therapy should be considered regardless of PCT result if the patient is clinically unstable, is at high risk for adverse outcome, has strong evidence of bacterial pathogen or the clinical context indicates antibiotic therapy is warranted. ID Date Data Source [id number] 05/10/2019 10:28:00 AM [facility] Name Value Range Interpretation Code Description Data Agueda rce(s) Supporting Document(s) Erythrocyte Sedimentation ESR 21 mm/hr 0-15 Above high normal [facility] ID Date Data Source [id number] 05/10/2019 10:26:00 AM [facility] Name Value Range Interpretation Code Description Data Agueda rce(s) Supporting Document(s) Sodium 140 mmol/L 137-145 Normal (applies to non-numeric resul ts) [facility] Potassium 3.5-5.1 Normal (applies to non-numeric resul ts) [facility] Chloride 105 mmol/L 98-112 Normal (applies to non-numeric resul ts) [facility] Carbon Dioxide CO2 22.0-33.0 Normal (applies to non-numer ic results) [facility] Anion Gap 4.0-11.0 Normal (applies to non-numeric resul ts) [facility] BUN 14 mg/dL 9-20 Normal (applies to non-numeric resul ts) [facility] Creatinine 0.80-1.50 Normal (applies to non-numeric resul ts) [facility] GFR 74 mL/min >60 Normal (applies to non-numeric resul ts) [facility] Result based on MDRD formula. Glucose Level 174 mg/dL 74-99 Above high normal [facility] The reference range is only applicable w hen fasting. Calcium-Uncorrected 8.4-10.2 Normal (applies to non-nume pako results) [facility] Corrected Calcium 8.4-10.2 Normal (applies to non-numeri c results) [facility] Bilirubin,Total 0.2-1.3 Normal (applies to non-numeric results) [facility] SGOT(AST) 12 U/L 17-59 Below low normal [facility] SGPT(ALT) 39 U/L 21-72 Normal (applies to non-numeric resul ts) [facility] Alkaline Phosphatase 67 U/L 38-126 Normal (applies to non-num emilia results) [facility] can increase Alkaline Phosp le vels up to 2 times the normal adult value. Normal values for children and adolescents are 2 to 3 times the normal adult value. Total Protein 6.3-8.2 Normal (applies to non-numeric re sults) [facility] Albumin 3.5-5.0 Normal (applies to non-numeric resul ts) [facility] ID Date Data Source [id number] 05/10/2019 10:26:00 AM [facility] Name Value Range Interpretation Code Description Data Agueda rce(s) Supporting Document(s) Magnesium 1.80-2.40 Normal (applies to non-numeric resul ts) [facility] ID Date Data Source [id number] 05/10/2019 10:26:00 AM [facility] Name Value Range Interpretation Code Description Data Agueda rce(s) Supporting Document(s) Phosphorus 2.5-4.9 Below low normal [facility] ID Date Data Source [id number] 05/10/2019 10:26:00 AM [facility] Name Value Range Interpretation Code Description Data Agueda rce(s) Supporting Document(s) C-Reactive Protein,Wide Range <3.00 Normal (applies t o non-numeric results) [facility] ID Date Data Source [id number] 05/10/2019 10:25:00 AM [facility] 3 hour post Lactic if elevated? Y Name Value Range Interpretation Code Description Data Agueda rce(s) Supporting Document(s) Lactic Acid 0.4-2.0 Above high normal [facility] ID Date Data Source [id number] 05/10/2019 09:55:00 AM EST [facility] Name Value Range Interpretation Code Description Data Agueda rce(s) Supporting Document(s) Venous PH 7.31-7.41 Normal (applies to non-numeric resul ts) [facility] VBG PCO2 39 mmHg 42-55 Below low normal [facility] VBG PO2 70 mmHg 30-[address] [facility] VBG HCO3 24.0-28.0 Normal (applies to non-numeric resul ts) [facility] ID Date Data Source [id number] 05/10/2019 09:52:00 AM EST [facility] Name Value Range Interpretation Code Description Data Agueda rce(s) Supporting Document(s) White Blood Count 4.8-10.8 Above high normal [facility] Red Blood Count 4.35-6.08 Below low normal [facility] Hemoglobin 13.0-17.[address] [facility] Hematocrit 37.7-51.0 Normal (applies to non-numeric resul ts) [facility] Mean Corpuscular Volume 80-94 Normal (applies to non- numeric results) [facility] Mean Corpuscular Hemoglobin 27.0-33.0 Normal (appli es to non-numeric results) [facility] Mean Corpuscular HGB Conc 32.0-36.0 Normal (applies to no n-numeric results) [facility] Red Cell Distribution Width 11.5-14.5 Normal (appli es to non-numeric results) [facility] Platelet Count 248 X10 3/uL 130-450 Normal (applies to non-numeric results) [facility] Mean Platelet Volume 9.6-13.1 Normal (applies to non-num emilia results) [facility] Imm Grans% (AUTO) 0.0-2.0 Normal (applies to non-numeri c results) [facility] Neutrophils % (AUTO) 43.0-75.0 Normal (applies to non-num emilia results) [facility] Lymphocytes % (AUTO) 20.5-45.5 Normal (applies to non-num emilia results) [facility] Monocytes % (AUTO) 5.5-11.7 Normal (applies to non-numer ic results) [facility] Eosinophils % (AUTO) 0.7-4.6 Normal (applies to non-num emilia results) [facility] Basophils % (AUTO) 0.2-1.2 Normal (applies to non-numer ic results) [facility] Imm Grans# (AUTO) 0.00-0.50 Normal (applies to non-numeri c results) [facility] Neutrophils # (AUTO) 1.90-7.00 Above high normal [facility] Lymphocytes # (AUTO) 1.30-3.10 Above high normal [facility] Monocytes # (AUTO) 0.40-0.70 Above high normal [facility] Eosinophils# (AUTO) 0.00-0.30 Normal (applies to non-nume pako results) [facility] Basophils # (AUTO) 0.00-0.10 Normal (applies to non-numer ic results) [facility] ID Date Data Source [id number] 05/21/2019 12:16:00 PM EST [facility] Place specimen in heel warmer til spun,s eparate immediately . Place specimen in heel warmer til spun,s eparate immediately . Name Value Range Interpretation Code Description Data Agueda rce(s) Supporting Document(s) Immunofixation Cryoglobulin Normal (applies to non-numeric results) [facility] Cryoglobulin negative. This sample had a trace amount of precipitation present, but no immunoglobulin has been detected by immunofixation. ADDITIONAL INFORMATION This test has been modified from the ink maker's instructions. Its performance characteristics were determined by [facility] in a manner consistent with CLIA requirements. This test has not been cleared or approved by the U.S. Food and Drug Administration. Test Performed by: [facility] - [address] [address] Logistics Loss Prevention Manager: Zuri Williamson M.D. Ph.D.; CLIA# [id number] ID Date Data Source [id number] 05/29/2019 09:03:00 AM EST [facility] Place specimen in heel warmer til spun,s eparate immediately . Place specimen in heel warmer til spun,s eparate immediately . Name Value Range Interpretation Code Description Data Agueda rce(s) Supporting Document(s) Cryoglobulin,Serum Negative Normal (applies to non-numer ic results) [facility] This test is negative at 24 hours. All s amples are held and reviewed again at 7 days. If delayed precipitation occurs after 7 days, Immunofixation will be performed and an additional report will follow. Test Performed by: [place] [address] Logistics Loss Prevention Manager: Noe Williamson M.D. Ph.D.; CLIA# [id number] REVISED RESULTS The 7-day test has a trace cryoprecipitate. PREVIOUSLY REPORTED Negative (Reported 05/14/2019 11:15) This test is negative at 24 hours. All samples are held and reviewed again at 7 days. If delayed precipitation occurs after 7 days, Immunofixation will be performed and an additional report will follow. (Reported 05/14/2019 11:15) Test Performed by: [place] [address] Logistics Loss Prevention Manager: Noe Williamson M.D. Ph.D.; CLIA# [id number] This is a Corrected Result --- 05/20/19 1423 --- Cryoglob,Serum previously reported as: Negative %ppt This test is negative at 24 hours. All samples are held and reviewed again at 7 days. If delayed precipitation occurs after 7 days, Immunofixation will be performed and an additional report will follow. Test Performed by: [place] [address] Logistics Loss Prevention Manager: Noe Williamson M.D. Ph.D.; CLIA# [id number] Immunofixation Cryoglobulin Normal (applies to non-numeric results) [facility] Cryoglobulin negative. This sample had a trace amount of precipitation present, but no immunoglobulin has been detected by immunofixation. ADDITIONAL INFORMATION This test has been modified from the ink maker's instructions. Its performance characteristics were determined by [facility] in a manner consistent with CLIA requirements. This test has not been cleared or approved by the U.S. Food and Drug Administration. Test Performed by: [place] [address] Logistics Loss Prevention Manager: Zuri Williamson M.D. Ph.D.; CLIA# [id number] ID Date Data Source [id number] 05/10/2019 02:59:00 PM [facility] Name: JHON PATE : 7 Age/Sex: 43M Ordering Provider: Jaylyn Morfin MD Med Rec #: [id number] Reg Status: ADM IN Room #: 312-1 Date of Service: 05/10/19 Report Number: [id number] cc:Mateo Rodríguez MD; Jaylyn Morfin MD Send Report To: [id number] CT/CT High Res Chest No Contrast Reason for exam: Recurrent respiratory infections/failure/hemoptysis Comparison is made to 03/06/2019 FINDINGS: No change is seen in bibasilar opacities most consistent with atelectasis. Component of basilar pneumonia cannot be excluded. There is a concern for pulmonary fibrosis is not identified. The central endobronchial structures are unremarkable. There is mild cardiomegaly. There is no mediastinal or hilar adenopathy. There is a small pericardial effusion. Fracture deformity or destructive osseous lesion is not appreciated. There is fatty infiltration of the liver. Hepatic mass or biliary dilatation isnot seen. Upper abdomen is otherwise unremarkable. IMPRESSION: No significant change noted in bibasilar opacities likely atelectasis, however, basilar pneumonias cannot be excluded. Mild cardiomegaly. Fatty infiltration of the liver. While performing the above CT exam, the following dose reduction techniques wereused: *Automated exposure control *Adjustment of the mA and/or kV according to patient size *Use of iterative reconstruction technique CT Dose in mSv: 15.23 Contrast Agent in ml: Method of Administration: REPORT SIGNATURE ON FILE Reported By: Kenisha Griffith MD <Electronically signed by Kenisha Griffith MD> 05/11/19 1649 Dictation Date/Time: 05/10/19 1341 Transcribed Date/Time: 05/10/19 1459 It Network Engineer: CHAU Name Value Range Interpretation Code Description Data Agueda rce(s) Supporting Document(s) ID Date Data Source [id number] 05/09/2019 06:41:00 PM [facility] Presumptive negative for L.pneumophila s erogroup 1 antigen in urine, suggesting no recent or current infection. Infection due to Legionella cannot be ruled out since other serogroups and species may cause disease, antigen may not be present in urine in early infection, and the level of antigen present in the urine may be below the detection limit of the test. Reference range: Negative for L.pneumophila serogroup 1 antigen. Methodology by chromatographic immunoa ssay. Reference value: Negative for the presence of S.pneumoniae antigen. Note: A negative result can not rule out infection due to S.pneumoniae since the antigen present in the specimen may be below the detection limit of the test. A negative test is presumptive and it is recommended that these results be confirmed by culture.Presumptive negative Name Value Range Interpretation Code Description Data Agueda rce(s) Supporting Document(s) ID Date Data Source [id number] 05/09/2019 06:41:00 PM [facility] Presumptive negative for L.pneumophila s erogroup 1 antigen in urine, suggesting no recent or current infection. Infection due to Legionella cannot be ruled out since other serogroups and species may cause disease, antigen may not be present in urine in early infection, and the level of antigen present in the urine may be below the detection limit of the test. Reference range: Negative for L.pneumophila serogroup 1 antigen. Methodology by chromatographic immunoa ssay. Reference value: Negative for the presence of S.pneumoniae antigen. Note: A negative result can not rule out infection due to S.pneumoniae since the antigen present in the specimen may be below the detection limit of the test. A negative test is presumptive and it is recommended that these results be confirmed by culture.Presumptive negative Name Value Range Interpretation Code Description Data Agueda rce(s) Supporting Document(s) ID Date Data Source [id number] 05/09/2019 02:00:00 PM [facility] Name Value Range Interpretation Code Description Data Agueda rce(s) Supporting Document(s) Procalcitonin 0.00-0.24 Normal (applies to non-numeric re sults) [facility] 1.Risk of Progression to severe sepsis a nd septic shock: < 0.50 ng/mL Low Risk of severe sepsis and/or septic shock > 2.00 ng/mL High Risk of severe sepsis and/or septic shock 2.Decision on antibiotic discontinuation for suspected or confirmed septic patients: Antibiotic therapy may be discontinued if the current PCT is <0.50 ng/mL or if there is an 80% decrease in PCT. 3.Decision for antibiotic therapy for patients with suspected or confirmed Lower Respiratory Tract Infection (LRTI): >0.25 ng/mL - Antibiotic therapy encouraged 4.Decision on antibiotic discontinuation for patients with suspected or confirmed LRTI: Antibiotic therapy may be discontinued if the current PCT is <0.25 ng/mL or if there is an 80% decrease in PCT. NOTE: Antibiotic therapy should be considered regardless of PCT result if the patient is clinically unstable, is at high risk for adverse outcome, has strong evidence of bacterial pathogen or the clinical context indicates antibiotic therapy is warranted. ID Date Data Source [id number] 05/09/2019 01:46:00 PM [facility] Name Value Range Interpretation Code Description Data Agueda rce(s) Supporting Document(s) Hemoglobin A1C % Less than 5.7% Above high normal [facility] HBA1C: Normal: Less than 5.7% Prediabetes: 5.7% to 6.4% Diabetes: 6.5% or higher HA1C % vs Estimated Average Glucose (eAG) % eAG % eAG 6% 126 mg/dL 10% 240 mg/dL 7% 154 mg/dL 11% 269 mg/dL 8% 183 mg/dL 12% 298 mg/dL 9% 212 mg/dL Reference: [place] [employer], 2017 ID Date Data Source [id number] 05/09/2019 12:18:00 PM [facility] Name Value Range Interpretation Code Description Data Agueda rce(s) Supporting Document(s) Lactic Acid 3 Hour Post 0.4-2.0 PH [facility] REE read back critical information 05/09/19 1217 [email or web address] ID Date Data Source [id number] 05/10/2019 10:38:00 AM [facility] Name: JHON PATE : 7 Age/Sex: 43M Ordering Provider: MARIANA Arboleda Med Rec #: [id number] Reg Status: ADM IN Room #: 312-1 Date of Service: 05/09/19 Report Number: [id number] cc:Mateo Rodríguez MD; MARIANA Arboleda Send Report To: [id number] US/US Duplex Lower Ext Vein Bilat Reason for exam: shortness of breath, hypoxia Technique: Ultrasound imaging performed using color flow and spectral Doppler interrogation. FINDINGS: There is normal compressibility of the deep venous system from the external iliac through the popliteal vein with normal augmentation identified. IMPRESSION: NO EVIDENCE FOR ANY UNDERLYING DVT. REPORT SIGNATURE ON FILE Reported By: Woody Jackson MD <Electronically signed by Kaela Jackson MD> 05/10/19 1625 Dictation Date/Time: 05/09/19 1134 Transcribed Date/Time: 05/10/19 1038 Dental Technician ist: CHAU Name Value Range Interpretation Code Description Data Agueda rce(s) Supporting Document(s) ID Date Data Source [id number] 05/14/2019 02:20:00 PM EST [facility] Name Value Range Interpretation Code Description Data Agueda rce(s) Supporting Document(s) Carnitine Total 70 nmol/mL 34-78 Normal (applies to non-numeric results) [facility] Carnitine Free (FC) 62 nmol/mL 25-54 [facility] [facility] Acylcarnitine(AC) 8 nmol/mL 5-30 Normal (applies to non-numeri c results) [facility] Carnitine AC/FC Ratio 0.1-0.8 Normal (applies to non-nu meric results) [facility] Carnitine Interpretation Normal (applies to non -numeric results) [facility] In this sample, the carnitine profile wa s essentially normal. ADDITIONAL INFORMATION This test was developed and its performance characteristics determined by [facility] in a manner consistent with CLIA requirements. This test has not been cleared or approved by the U.S. Food and Drug Administration. Test Performed by: [facility] - [address] [address] Logistics Loss Prevention Manager: Noe Williamson M.D. Ph.D.; CLIA# [id number] ID Date Data Source [id number] 05/09/2019 08:00:00 AM [facility] 3 hour post Lactic if elevated? Y Name Value Range Interpretation Code Description Data Agueda rce(s) Supporting Document(s) Lactic Acid 0.4-2.0 Above high normal [facility] ID Date Data Source [id number] 05/08/2019 06:03:00 AM [facility] Name: JHON PATE : 7 Age/Sex: 43M Attending Physician: Kike oNrton MD [facility] Rec #: [id number] Admission Date: 05/07/19 Room #: 312-1 Admitting Physician: Kike Norton MD Report Number: [id number] _ cc: Mateo Rodríguez MD Send Report To: Report Status - Signed HISTORY AND PHYSICAL Date of Admission: 05/07/19 This is a 43-year-old male who has recent admission to us and then transfer. Hes[facility] in [facility]. So I see in notes that the patient was admitted, was there 42 days, was not intubated, and his reason for coming today is shortness of breath. In the emergency room patient was in respiratory distress, tachycardia heart rate 123 with respiratory rate 26. Normal temperature. Pulse oximetry was 95 on room air. His lactic acid was elevated to 4.6. Blood gases are pending. So main diagnosis on admission to us now is BOOP, acute respiratory failure, bronchiolitis obliterans organizing pneumonia. So patient was placed on high flow in the ER and moved now to ICU in case if he will deteriorate. Main complaint is shortness of breath, dry cough, and chest pain. MEDICAL PROBLEMS: Besides what I mentioned: 1. This is new diagnosis that he received is CIDP. 2. Bronchiolitis obliterans organizing pneumonia (BOOP), diffuse interstitial lung disease. PAST SURGICAL HISTORY: 1. Appendectomy. 2. Cholecystectomy. 3. Left knee surgery. HOME MEDICATIONS: 1. amlodipine. 2. ipratropium. 3. potassium. 4. trazodone. 5. gabapentin. 6. metoprolol. 7. Cymbalta. 8. cyclobenzaprine. 9. hydrochlorothiazide. 10. ropinirole. 11. sertraline. 12. zolpidem. 13. Ventolin. 14. testosterone. REVIEW OF SYSTEMS: See HPI. All other systems are negative. PHYSICAL EXAMINATION: GENERAL: In the emergency room he denies any fever. His main complaint now chest pain when I examined him. Still feels short of breath. A lot of distress, a lot of anxiety besides this. VITAL SIGNS: Blood pressure 150/90, heart rate 125, respiratory rate 26, saturation 95 on room air. HEENT: Normocephalic, atraumatic. NECK: Supple. Trachea in the midline. LUNGS: Patient with tachypnea, prolonged expirium. HEART: Regular rate and rhythm. ABDOMEN: Soft. EXTREMITIES: Without edema. NEUROLOGICAL: Grossly normal. Alert, awake, oriented, cooperative. PSYCHIATRIC: Normal affect. LABORATORY DATA: White blood cells 9, hemoglobin 15, platelet count 342. Sodium 139, potassium 3.8, chloride 104, bicarb 22, anion gap 13, BUN 13, creatinine 1.18, GFR 68, lactic acid 4.6. Troponin is negative. ASSESSMENT: A 43-year-old gentleman with diagnosis CIDP (chronic inflammatory demyelinating polyneuropathy), previous diagnosis of BOOP (bronchiolitis obliterans organizing pneumonia) admitted now to Intensive Care Unit with might be flare of CIDP. He has a lot of respiratory distress and it does not fit lab work. I do not see any significant findings. His blood gases are pending but because overall patient has very labored breathing there is possibility for respiratory failure. He will be admitted to Intensive Care Unit. Patient received several nebulizer treatments. He received also Zosyn, vancomycin, and I give him also pain control. He is having chest pain. So adm itted to Intensive Care Unit I will continue with steroids, continue with Zosyn. Estimated stay in the hospital more than two midnights. REPORT SIGNATURE ON FILE Dictated By: Kike Norton MD <Electronically signed by Kike Norton MD> 05/09/19 0653 Dictation Date/Time: 05/07/192131 Transcribed Date/Time: 05/08/19 0603/EDISON Name Value Range Interpretation Code Description Data Agueda rce(s) Supporting Document(s) ID Date Data Source [id number] 05/10/2019 10:34:00 AM [facility] Name: JHON PATE : 7 Age/Sex: 43M Ordering Provider: MARIANA Orr Med Rec #: [id number] Reg Status: ADM IN Room #: 312-1 Date of Service: 05/09/19 Report Number: [id number] cc:Mateo Rodríguez MD; MARIANA Orr Send Report To: [id number] MRI/MRI Lum Spine w & wo Contrast Reason for exam: progressive weakness and SOB FINDINGS: There is normal alignment and position of the bones. No signs of anylesions identified. There is no signs of any fractures noted. No evidence for any Cauda equina syndrome noted. The L5-S1 level demonstrates 5 mm left paracentral disc herniation identified. No definitive nerve root deviation is noted. IMPRESSION: Small left paracentral L5-S1 5 mm disc herniation with no other significant findings. No nerve root deviations noted. Fluoroscopy time in seconds: Number of Exposures: Time Portable Image Performed: Contrast Agent in ml: Multihance 20 Method of Administration: Intraveneous REPORT SIGNATURE ON FILE Reported By: Woody Jackson MD <Electronically signed by Kaela Jackson MD> 05/10/19 1625 Dictation Date/Time: 05/09/19 1035 Transcribed Date/Time: 05/10/19 1034 It Network Engineer: CHAU Name Value Range Interpretation Code Description Data Agueda rce(s) Supporting Document(s) ID Date Data Source [id number] 05/10/2019 06:49:00 AM [facility] Name: JHON PATE : 7 Age/Sex: 43M Ordering Provider: MARIANA Orr Med Rec #: [id number] Reg Status: ADM IN Room #: 312-1 Date of Service: 05/09/19 Report Number: [id number] cc:Mateo Rodríguez MD; MARIANA Orr Send Report To: [id number] MRI/MRI T Spine w&wo Con Reason for exam: progressive weakness and SOB FINDINGS: There is normal alignment and position of the bones. There are no signs of any intramedullary lesions identified. No epidural disease process noted. Some disk bulging at T3-4, T4-5, T5-6, and T6-7 with a small 2.5 mm right paracentral disk herniation at T7-8. No significant cord compression noted. No areas of abnormal enhancement identified. Conus appears normal. IMPRESSION: T7-8 small right paracentral disk protrusion. Fluoroscopy time in seconds: Number of Exposures: Time Portable Image Performed: Contrast Agent in ml: Multihance 20 Method of Administration: Intraveneous REPORT SIGNATURE ON FILE Reported By: Woody Jackson MD <Electronically signed by Kaela Jackson MD> 05/10/19 1625 Dictation Date/Time: 05/09/19 1109 Transcribed Date/Time: 05/10/19 0649 It Network Engineer: EDISON Name Value Range Interpretation Code Description Data Agueda rce(s) Supporting Document(s) ID Date Data Source [id number] 05/07/2019 05:49:00 PM EST [facility] Name: JHON PATE Med Rec #: [id number] : 1975 Age/Sex: 43M Date of Service: 05/07/19 DISPOSITION SUMMARY Discharge Summary [facility] Name:Jhon Pate Emergency Department Age:43 yrs Sex:Male :1975 Arrival:05/07/2019 17:49 Departure Date05/08/2019 Departure Time00:11 Private MD:Mateo Rodríguez Outcome: Hospitalize Location: Med/Surg 3 Condition: Fair Chief Complaint: Shortness Of Breath Diagnosis: - BOOP (bronchiolitis obliteran with organizing pneumonia), Acute respiratory failure Prescriptions: Custom Notes: Attending Physician: Austin Levin MD Private MD: Mateo Rodríguez Mid Level Provider: Hospitalizing Provider: Kike Norton MD Orders: Cbc With Auto Differential, COMMET, Troponin I, PT, PTT, Magnesium, Lipase, Cardiology EKG Interpretation - Choose Reason for Test, Cardiology EKG Interpretation - Choose Reason for Test, Blood Culture - Venous, Lactic Acid, Respiratory Panel (Use Workup), Solu-MEDROL, CXR 1 View (Pa OR Ap), Emergency Room EKG Order - Use EKG Work-Up /Quick Select, Emergency Room EKG Order - Use EKG Work-Up /Quick Select, Collect nasal swab, Albuterol-Ipratropium, LORazepam, Oxygen - 2L Nasal Cannula, NS 0.9%, vancomycin, Zosyn, Admit to Inpatient, fentaNYL (PF) Discharge Instruction: Medication Reconciliation, SBAR Name Value Range Interpretation Code Description Data Agueda rce(s) Supporting Document(s) ID Date Data Source [id number] 05/07/2019 05:49:00 PM [facility] Name: JHON PATE Med Rec #: [id number] : 1975 Age/Sex: 43M Date of Service: 05/07/19 PHYSICIAN CHART Physician Documentation [facility] Name: Jhon Pate Age: 43 yrs Sex: Male : 1975 Arrival Date: 05/07/2019 Time: 17:49 Bed 11 Private MD: Mateo Rodríguez S ED Physician Austin Levin Disposition: 05/07 20:33 Critical Care: not applicable. jdl HPI: 18:56 This 43 yrs old Male presents to ER via Walk-In jdl with complaints of Shortness Of Breath. 18:56 The patient has shortness of breath at rest. Onset: The jdl symptoms/episode began/occurred 2 day(s) ago. Duration: The symptoms are continuous, and are steadily getting worse. The patient's shortness of breath is aggravated by coughing, exertion, is alleviated by nothing. Associated signs and symptoms: Pertinent positives: chest pain, non-productive cough, Pertinent negatives: dizziness, fever, vomiting. Severity of symptoms: At their worst the symptoms were severe in the emergency department the symptoms are unchanged. 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 Historical: - Allergies: Tape (Hives); - Home Meds: 1. amlodipine 2.5 mg Oral tab 1 tab once daily 2. ipratropium bromide 0.02 % inhalation soln 1.25 mL 3 times per day 3. potassium chloride 20 mEq Oral TbER 1 tab once daily 4. trazodone 50 mg Oral tab 1 tab at bedtime 5. gabapen tin 300 mg oral Tb24 3 tab three times a day 6. gabapentin 600 mg oral tab 1 tab 3 times per day 7. pantoprazole 40 mg Oral TbEC 1 tab 2 times per day 8. aspirin 81 mg Oral TbEC 1 tab once daily 9. metoprolol succinate 100 mg CSpX 1 cap once daily 10. duloxetine 30 mg oral cpDR 1 cap once daily 11. calcium carbonate 500 mg calcium (1,250 mg) Oral cap 12. cyclobenzaprine 5 mg Oral tab 1 tab daily 13. hydrochlorothiazide 25 mg Oral tab 1 tab once daily 14. prednisone 10 mg Oral tab 2 tabs once daily 15. sulfamethoxazole-trimethoprim 800-160 mg Oral tab 1 tab 4 times per day three times per week 16. zolpidem 5 mg Oral tab 1 tab once daily 17. sertraline 50 mg oral tab 1 tab once daily 18. ropinirole 1 mg oral tab 1 tab 19. baclofen 10 mg Oral tab 1.5 tab 3 times per day 20. Ventolin HFA 90 mcg/actuation Nebulizer HFAA 2 puffs Every 4 hours, PRN Patient is out of medication at home 21. testosterone cypionate 200 mg/mL intramuscular oil 0.25 mL every 2 wks - PMHx: GERD; HTN - hypertension; insomnia; KIDNEY STONES; - PSHx: Appendectomy; Cholecystectomy; knee-left; - Med Reconciliation:: Green Alert: The patient's med list is complete to the best of the nurse's/provider's knowledge. Medications reviewed, using patient's med list. - Advance directive: There is no existing advanced directive. Information offered. - Family History:: mother is healthy, Father has a history of diabetes mellitus, has a history of cardiac disorder, has a history of hypertension, has a history of hypercholesterolemia. - Social History: Smoking status (Tobacco): Patient states he/she has never smoked tobacco. Preferred Language: Peruvian. ROS: 18:57 ENT: Negative for injury, pain, and discharge, Neck: jdl Negative for injury, pain, and swelling, Cardiovascular: Negative for chest pains or palpitations. Abdomen/GI: Negative for abdominal pain, nausea, vomiting, diarrhea, and constipation, Back: Negative for injury and pain, MS/Extremity: negative for injury or deformity Skin: Negative for injury, rash, and discoloration, Neuro: Negative for headache, weakness, numbness, tingling, and seizure. Constitutional: Positive for chills, Negative for body aches, fever. Respiratory: Positive for cough, shortness of breath, wheezing. Exam: 18:58 Eyes: Pupils equal round and reactive to light, jdl extra-ocular motions intact. Lids and lashes normal. Conjunctiva and sclera are non-icteric and not injected. Cornea within normal limits. Periorbital areas with no swelling, redness, or edema. ENT: Nares patent. No nasal discharge. Tympanic membranes are normal and external auditory canals are clear. Oropharynx with no redness, swelling, or masses. Mucous membranes moist. Neck: Trachea midline, no thyromegaly or masses palpated, and no cervical lymphadenopathy. Supple, full range of motion without nuchal rigidity, or vertebral point tenderness. No Meningismus. Chest/axilla: normal inspection, no deformities or tenderness. Abdomen/GI: Soft, non-tender, with normal bowel sounds. No distension or tympany. No guarding or rebound. No evidence of tenderness throughout. Back: No spinal tenderness. No costovertebral tenderness. Skin: Warm, dry with normal turgor. Normal color with no rashes, no lesions, and no evidence of cellulitis. MS/ Extremity: Pulses equal, no cyanosis. Neurovascular intact. Full, normal range of motion. Neuro: Awake, alert, and oriented, GCS 15, Cranial nerves II-XII grossly intact. Motor strength 5/5 in all extremities. Sensory grossly intact. Cerebellar exam normal. Normal gait. 18:58 Constitutional: The patient appears alert, appears to be awake, is moderately distressed. 18:58 Cardiovascular: Rate: normal, Rhythm: regular, Heart sounds: normal. 18:58 Respiratory: moderate respiratory distress is noted, Respirations: labored breathing, that is moderate, Breath sounds: wheezing, that is severe. Vital Signs: 17:57 Weight 101.6 kg; Height 5 ft. 8 in. (172.72 cm); sm6 17:57 BP 152 / 107; Pulse 123; Resp 26; Pulse Ox 95% on R/A; sm6 19:44 BP 147 / 89; Pulse 119; Resp 20; Pulse Ox 92% on R/A; Pain rjh 10/10; 21:32 BP 147 / 94; Pulse 120; Resp 18; Pulse Ox 96% on 2 lpm NC; rjh 23:07 BP 134 / 98; Pulse 122; Resp 25; Pulse Ox 94% on 2 lpm NC; jw4 Pain 10/10; 23:52 BP 138 / 88; Pulse 117; Resp 24; Pulse Ox 94% on 2 lpm NC; rj Pain 5/10; 17:57 Body Mass Index 34.06 (101.60 kg, 172.72 cm) 6 MDM: 18:50 Patient medically screened. formerly [facility] 20:16 Data reviewed: vital signs, nurses notes. Data interpreted: formerly [facility] Pulse oximetry: on 2L(s) per nasal canula, is 94 %. Interpretation:. 20:31 Antibiotic administration: Not indicated. ED course: formerly [facility] Overall the patient did not respond well to nebulizer treatments. I was able to get his old medical record from [facility]. It appears that he was diagnosed with possible BOOP. I did consult Dr. Norton who evaluated the patient in the emergency department and will admit the patient to the ICU for further management.. 05/07 18:11 Order name: Cbc With Auto Differential; Complete Time: 19:13aaq 05/07 19:13 Interpretation: Within normal limits: WBC 9.7; HGB 15.6; jdl HCT 44.4; PLT 342. 05/07 18:11 Order name: COMMET; Complete Time: 19:56 aaq 05/07 19:30 Interpretation: Within normal limits: NA 139; K 3.8; CL jdl 104; CO2 22.0; GAP 13.0; BUN; CREAT 1.18; Glom Filtration 68; GLU; CA 9.5; Corrected CA 9.3; T Bili 0.8; SGOT(AST); SGPT(ALT); ALK PHOS 97; TP; ALB 4.2. 05/07 18:11 Order name: Troponin I; Complete Time: 19:30 aaq 05/07 19:30 Interpretation: Within normal limits: TROP I < 0.045. [facility] 05/07 18:11 Order name: PT; Complete Time: 19:15 aaq 05/07 19:15 Interpretation: Within normal limits: PT 10.6; INR 0.92. formerly [facility] 05/07 18:11 Order name: PTT; Complete Time: 19:15 aaq 05/07 19:15 Interpretation: Within normal limits: PTT 31.4. formerly [facility] 05/07 18:11 Order name: Magnesium; Complete Time: 19:56 aaq 05/07 19:30 Interpretation: Within normal limits: MG 2.20. formerly [facility] 05/07 18:11 Order name: Lipase; Complete Time: 19:56 q 05/07 19:30 Interpretation: Within normal limits: LIP 139. formerly [facility] 05/07 18:22 Order name: Cardiology EKG Interpretation - Choose Reason 6 for Test 05/07 18:24 Order name: Cardiology EKG Interpretation - Choose Reason q for Test 05/07 18:56 Order name: Blood Culture - Venous [facility] 05/07 18:56 Order name: Lactic Acid; Complete Time: 19:56 [facility] 05/07 19:56 Interpretation: Abnormal: Lactic 4.6. [facility] 05/07 18:56 Order name: Respiratory Panel (Use Workup); Complete Time: [facility] 20:50 05/07 20:15 Order name: CXR 1 View (Pa OR Ap) [facility] 05/07 18:22 Order name: Emergency Room EKG Order - Use EKG Work-Up 6 /Quick Select; Complete Time: 18:50 05/07 18:24 Order name: Emergency Room EKG Order - Use EKG Work-Up q /Quick Select; Complete Time: 18:29 05/07 18:56 Order name: Collect nasal swab; Complete Time: 19:14 [facility] 05/07 19:51 Order name: Oxygen - 2L Nasal Cannula; Complete Time: 19:55 [facility] 05/07 20:36 Order name: Admit to Inpatient EDMS Dispensed Medications: 19:10 Drug: Solu-MEDROL 125 mg [Solu-Medrol (PF) 125 mg/2 mL dk2 solution for injection (2 mL)] Route: IVP; Site: right forearm; 19:56 Follow up: Response: No adverse reaction; No change in [facility] condition 19:10 Drug: DuoNeb - Albuterol-Ipratropium 3 ml dk2 [ipratropium-albuterol 0.5 mg-3 mg(2.5 mg base)/3 mL nebulization soln (3 mL)] Volume: 3 ml; Route: Nebulizer; 19:10 Drug: DuoNeb - Albuterol- Ipratropium 3 ml dk2 [ipratropium-albuterol 0.5 mg-3 mg(2.5 mg base)/3 mL nebulization soln (3 mL)] Volume: 3 ml; Route: Nebulizer; 19:10 Drug: LORazepam 1 mg [lorazepam 2 mg/mL injection solution dk2 (0.5 mL)] Route: IVP; Site: right forearm; 19:55 Follow up: Response: Anxiety decreased [facility] 19:11 Drug: DuoNeb - Albuterol-Ipratropium 3 ml dk2 [ipratropium-albuterol 0.5 mg-3 mg(2.5 mg base)/3 mL nebulization soln (3 mL)] Volume: 3 ml; Route: Nebulizer; 19:55 Follow up: Response: No change in condition [facility] 20:08 Drug: NS 0.9% 3048 ml [sodium chloride 0.9 % intravenous rjh solution] Route: IV; Rate: 999 mL/hr; Site: right forearm; 20:09 Drug: Zosyn 4.5 grams [Zosyn 3.375 gram intravenous rj solution] Route: IVPB; Site: right forearm; 21:28 Follow up: Response: No adverse reaction; IV Status: [facility] Completed infusion; IV Intake: 100ml 21:30 Drug: vancomycin 1 grams [vancomycin 1,000 mg intravenous rj injection] Route: IVPB; Infused Over: 2 hrs; Site: right forearm; 23:51 Drug: fentaNYL (PF) 50 mcg [fentanyl (PF) 50 mcg/mL rj injection solution (1 mL)] Route: IVP; Site: right forearm; Disposition Summary: 05/07/19 20:34 Hospitalization Ordered Hospitalization Status: Inpatient Admission j Provider: Kike Norton Problem: new j Condition: Fair(05/07/19 23:02) j Location: Med/Surg 3(05/07/19 23:07) 2 Room Assignment: [id number](05/07/19 23:07) 2 Diagnosis - BOOP (bronchiolitis obliteran with organizing pneumonia)jdl - Acute respiratory failure jdl Additional Information - Patient Status Inpatient. j Forms: - Medication Reconciliation jdl - SBAR jdl Signatures: Dispatcher [employer] Austin Perez MD MD jdl Monroe, Susan, RN RN sm6 Yaneth Garcia sf2 Pat Keyes RN RN dk2 Vita Frost, MONIE NA sl2 Ariella Gamble RN RN jv2 Kevin Crocker MD MD aaq Nostrom, William wln1 Domingo Garcia RN RN [facility] Corrections: (The following items were deleted from the chart) 22:49 20:34 jdl sf2 23:02 20:34 Intensive Care Unit jdl sf2 23:02 20:34 Serious jdl jdl 23:02 22:49 CCU-6 sf2 sf2 23:02 23:02 Med-Surg 2 sf2 jdl 23:02 23:02 sf2 jdl 23:07 23:02 Med-Surg 2 jdl sf2 23:07 23:02 jdl sf2 Name Value Range Interpretation Code Description Data Agueda rce(s) Supporting Document(s) ID Date Data Source [id number] 05/07/2019 05:49:00 PM EST [facility] Name: JHON PATE [facility] Rec #: [id number] : 1975 Age/Sex: 43M Date of Service: 05/07/19 NURSE CHART Nurse's Notes [facility] Name: Jhon Pate Age: 43 yrs Sex: Male : 1975 Arrival Date: 05/07/2019 Time: 17:49 Bed 11 Private MD: Mateo Rodríguez S Diagnosis: BOOP (bronchiolitis obliteran with organizing pneumonia);Acute respiratory failure Presentation: 05/07 17:55 Transition of care: patient was not received from another [facility] setting of care. Presenting complaint: Patient states - 2 days SOB discharged from [facility] acute rehab 3 weeks ago was here for respiratory failure CIDP. Patient denies any travel outside the [place] in the last 30 days. Patient denies exposure to sick international traveler in last 30 days. 17:55 Method Of Arrival: Walk-In [facility] 17:55 Acuity: Emergent - 2 [facility] Triage Assessment: 17:56 The patient appears distressed, The patient is cooperative. 6 Patient states the pain is currently a 10 / 10 The patient complains of pain in across chest. The patient states the pain began 2 days. The quality of the pain is described as pressure, sharp, The pain is described as continuous. 23:59 SEPSIS SCREEN: A Confirmed or Suspected Infection is [facility] Unknown, their RR rate is >20. Respiratory: the patient has severe shortness of breath. Historical: - Allergies: Tape (Hives); - Home Meds: 1. amlodipine 2.5 mg Oral tab 1 tab once daily 2. ipratropium bromide 0.02 % inhalation soln 1.25 mL 3 times per day 3. potassium chloride 20 mEq Oral TbER 1 tab once daily 4. trazodone 50 mg Oral tab 1 tab at bedtime 5. gabapentin 300 mg oral Tb24 3 tab three times a day 6. gabapentin 600 mg oral tab 1 tab 3 times per day 7. pantoprazole 40 mg Oral TbEC 1 tab 2 times per day 8. aspirin 81 mg Oral TbEC 1 tab once daily 9. metoprolol succinate 100 mg CSpX 1 cap once daily 10. duloxetine 30 mg oral cpDR 1 cap once daily 11. calcium carbonate 500 mg calcium (1,250 mg) Oral cap 12. cyclobenzaprine 5 mg Oral tab 1 tab daily 13. hydrochlorothiazide 25 mg Oral tab 1 tab once daily 14. prednisone 10 mg Oral tab 2 tabs once daily 15. sulfamethoxazole-trimethoprim 800-160 mg Oral tab 1 tab 4 times per day three times per week 16. zolpidem 5 mg Oral tab 1 tab once daily 17. sertraline 50 mg oral tab 1 tab once daily 18. ropinirole 1 mg oral tab 1 tab 19. baclofen 10 mg Oral tab 1.5 tab 3 times per day 20. Ventolin HFA 90 mcg/actuation Nebulizer HFAA 2 puffs Every 4 hours, PRN Patient is out of medication at home 21. testosterone cypionate 200 mg/mL intramuscular oil 0.25 mL every 2 wks - PMHx: GERD; HTN - hypertension; insomnia; KIDNEY STONES; - PSHx: Appendectomy; Cholecystectomy; knee-left; - Med Reconciliation:: Green Alert: The patient's med list is complete to the best of the nurse's/provider's knowledge. Medications reviewed, using patient's med list. - Advance directive: There is no existing advanced directive. Information offered. - Family History:: mother is healthy, Father has a history of diabetes mellitus, has a history of cardiac disorder, has a history of hypertension, has a history of hypercholesterolemia. - Social History: Smoking status (Tobacco): Patient states he/she has never smoked tobacco. Preferred Language: Peruvian. Screenin:09 AUDIT 1. How often do you have a drink containing alcohol? [facility] 2 to 4 times a month (2 points) 2. How many standard drinks containing alcohol do you have on a typical day when drinking? 1 or 2 (0 points). Drug Abuse Screening Test: 1. Have you used drugs other than those required for medical reasons? No (0 points), screen is complete, no risk. Abuse screen: Denies threats or abuse. Nutritional scree martin: No deficits noted. Patient has no identifiable fall risk (Dobson Scale: 0 points). Assessment: 18:46 Cardiovascular:. Respiratory: Airway is patent. Respiratory dk2 effort is labored, Increased WOB, Respiratory pattern is regular, symmetrical, tachypnea, Breath sounds are clear in left posterior upper lobe, right posterior upper lobe and left posterior lower lobe Breath sounds are diminished in right posterior middle lobe and right posterior lower lobe. 20:10 Cardiovascular: Rhythm is sinus tachycardia Chest pain is [facility] denied. 23:13 The patient is not going to the ICU. jw4 Vital Signs: 17:57 Weight 101.6 kg; Height 5 ft. 8 in. (172.72 cm); sm6 17:57 BP 152 / 107; Pulse 123; Resp 26; Pulse Ox 95% on R/A; sm6 19:44 BP 147 / 89; Pulse 119; Resp 20; Pulse Ox 92% on R/A; Pain [facility] 10/10; 21:32 BP 147 / 94; Pulse 120; Resp 18; Pulse Ox 96% on 2 lpm NC; [facility] 23:07 BP 134 / 98; Pulse 122; Resp 25; Pulse Ox 94% on 2 lpm NC; jw4 Pain 10/10; 23:52 BP 138 / 88; Pulse 117; Resp 24; Pulse Ox 94% on 2 lpm NC; [facility] Pain 5/10; 17:57 Body Mass Index 34.06 (101.60 kg, 172.72 cm) [facility] Vitals: 19:48 1st contact with pt, pt's neb treatment is completed, pt [facility] still has audible wheezes and denies any relief from shortness of breath, 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 20:11 pt medicated with 1st of 3L NS bolus and 4.5 gms Zosyn IVPB [facility] per md's orders. 20:55 This RN went into pt's room to hand the 2nd antibiotic [facility] ordered for pt, pt sts the IV pump was beeping and someone came into the room and stopped the beeping, apparently this person stopped the antibiotic infusion before it was completed, restarted Zosyn as ordered. 21:32 pt visiting with family and talking on his phone in [facility] complete sentences without respiratory difficulty, vanco infusing at 125 mL/hr over two hours per md's orders, call fenton within reach, awaiting additional MD orders. 23:07 pt c/o 10/10, diffuse chest pain, pt medicated with 8 mg jw4 morphine IVP per md's admission orders, call fenton and friend at bedside, Vanco continues to infuse as ordered. 23:12 3rd L NS bolus infusing per MD's orders, preparing pt for [facility] admission. 23:44 pt now has audible wheezes, no respiratory meds ordered on [facility] admission orders, call out for Dr. Ellyn friedman. 23:52 pt sts his chest pain is better at 5/10. [facility] 23:53 pt medicated with 50 mcg Fentanyl IVP for pt's c/o [facility] increasing chest pain at 6/10, pt also medicated with a duoneb for pt's increased difficulty breathing with audible wheezes per Dr Norton's orders. ED Course: 17:50 Patient arrived in ED. sjy 17:55 Mateo Rodríguez is Private Physician. sm6 17:56 Triage completed. sm6 17:59 Arm band placed on left wrist. Patient has correct armband sm6 on for positive identification. 18:29 Additional EKG done Reviewed by Physician Kevin Crocker MD. wln1 18:29 Cardiology EKG Interpretation - Choose Reason for Test Sent.wln1 18:35 Pat Keyes, RN is Primary Nurse. wln1 18:50 Austin Levin MD is Attending Physician. jdl 18:50 Cardiology EKG Interpretation - Choose Reason for Test Sent.sl2 19:12 Labs drawn by lab staff. First set of blood cultures drawn dk2 Second set of blood cultures drawn by Lab staff. Inserted peripheral IV: 20 gauge in palmar aspect of right forearm. 19:14 A swab for the respiratory panel was collected by Pat Keyes RN. 19:17 Primary Nurse role handed off by Pat Keyes RN dk2 19:44 Domingo Garcia RN is Primary Nurse. [facility] 20:33 Kike Norton MD is Hospitalizing Provider. formerly [facility] 23:09 CXR 1 View (Pa OR Ap) Sent. [facility] 23:52 No procedures ordered. [facility] 23:59 Radiology: a portable X-ray was completed at 23:09. [facility] Administered Medications: 19:10 Drug: Solu-MEDROL 125 mg [Solu-Medrol (PF) 125 mg/2 mL dk2 solution for injection (2 mL)] Route: IVP; Site: right forearm; 19:56 Follow up: Response: No adverse reaction; No change in [facility] condition 19:10 Drug: DuoNeb - Albuterol-Ipratropium 3 ml dk2 [ipratropium-albuterol 0.5 mg-3 mg(2.5 mg base)/3 mL nebulization soln (3 mL)] Volume: 3 ml; Route: Nebulizer; 19:10 Drug: DuoNeb - Albuterol- Ipratropium 3 ml dk2 [ipratropium-albuterol 0.5 mg-3 mg(2.5 mg base)/3 mL nebulization soln (3 mL)] Volume: 3 ml; Route: Nebulizer; 19:10 Drug: LORazepam 1 mg [lorazepam 2 mg/mL injection solution dk2 (0.5 mL)] Route: IVP; Site: right forearm; 19:55 Follow up: Response: Anxiety decreased [facility] 19:11 Drug: DuoNeb - Albuterol-Ipratropium 3 ml dk2 [ipratropium-albuterol 0.5 mg-3 mg(2.5 mg base)/3 mL nebulization soln (3 mL)] Volume: 3 ml; Route: Nebulizer; 19:55 Follow up: Response: No change in condition [facility] 20:08 Drug: NS 0.9% 3048 ml [sodium chloride 0.9 % intravenous [facility] solution] Route: IV; Rate: 999 mL/hr; Site: right forearm; 20:09 Drug: Zosyn 4.5 grams [Zosyn 3.375 gram intravenous [facility] solution] Route: IVPB; Site: right forearm; 21:28 Follow up: Response: No adverse reaction; IV Status: [facility] Completed infusion; IV Intake: 100ml 21:30 Drug: vancomycin 1 grams [vancomycin 1,000 mg intravenous [facility] injection] Route: IVPB; Infused Over: 2 hrs; Site: right forearm; 23:51 Drug: fentaNYL (PF) 50 mcg [fentanyl (PF) 50 mcg/mL [facility] injection solution (1 mL)] Route: IVP; Site: right forearm; Intake: 21:28 IV: 100ml; Total: 100ml. [facility] Outcome: 20:34 Decision to Hospitalize by Provider. formerly [facility] 23:59 Patient verbalized understanding of disposition [facility] instructions. Patient has no functional deficits. 23:59 Patient admitted to Med/Surg, accompanied by tech, via stretcher, with oxygen, on monitor. 23:59 Condition: unchanged 23:59 Not Applicable. 23:59 Vitals are Complete in accordance with Emergency Department Policy. 05/08 00:11 Patient left the ED. sf2 06:56 24 hour call back N/A - patient was admitted mp1 Signatures: Austin Levin MD MD jdl Pinard, Michael, RN RN mp1 Maria Luisa Lee, RN RN thomas6 Yaneth Garcia sf2 Pat Keyes, RN RN dk2 Jhon Perez Stacia, NA NA sl2 Keiry Carlos jw4 Noe Xiong wln1 Domingo Garcia RN RN [facility] Name Value Range Interpretation Code Description Data Agueda rce(s) Supporting Document(s) ID Date Data Source [id number] 05/14/2019 02:20:00 PM [facility] Value Range Interpretation Code Description Data Agueda rce(s) Supporting Document(s) DNA (Double Stranded) Ab res <30.0 Normal (applies to non-numeric results) [facility] Negative: <3 0.0 IU/mL Borderline Positive: 30.0 - 75.0 IU/mL Positive: >75.0 IU/mL Results were obtained with the JumpChatA Lite dsDNA SC SHANTI assay on the [employer]. Test performed or [place] [address] ID Date Data Source [id number] 05/14/2019 02:20:00 PM [facility] Value Range Interpretation Code Description Data Agueda rce(s) Supporting Document(s) ANCA Myeloperoxidase IgG res Normal (applies to non-numeric results) [facility] REFERENCE VALUE------ <0.4 (Negative) ANCA Proteinase3 IgG result Normal (applies to non-numeric results) [facility] REFERENCE VALUE------ <0.4 (Negative) Test Performed by: [id number] [place] [address] Logistics Loss Prevention Manager: Noe Williamson M.D. Ph.D.; CLIA# [id number] ID Date Data Source [id number] 05/14/2019 02:20:00 PM [facility] Value Range Interpretation Code Description Data Agueda rce(s) Supporting Document(s) Angiotensin Conv Enz,Serum res 24 U/L 16 - 85 N ormal (applies to non-numeric results) [facility] Test Performed by: [facility] [place] [id number] Logistics Loss Prevention Manager: Noe Williamson M.D. Ph.D.; CLIA# [id number] ID Date Data Source [id number] 05/17/2019 03:19:00 PM [facility] Name Value Range Interpretation Code Description Data Agueda rce(s) Supporting Document(s) Pyruvic Acid 0.08-0.[address] [facility] Pyruvic Acid 0.7-1.[address] [facility] ADDITIONAL INFORMATIO N This test was developed and its performance characteristics determined by [facility] in a manner consistent with CLIA requirements. This test has not been cleared or approved by the U.S. Food and Drug Administration. Test Performed by: [place] [address] Logistics Loss Prevention Manager: Noe Williamson M.D. Ph.D.; CLIA# [id number] ID Date Data Source [id number] 05/08/2019 03:09:00 PM [facility] Eh's Test Completed: YMinutes Pressu re Held: 5ABG Site: Right RadialTemperature: 99Initials: FJVOn Oxygen? YOxygen [facility] Name Value Range Interpretation Code Description Data Agueda rce(s) Supporting Document(s) SUBMITTED ON ICE? Normal (applies to non-numeri c results) [facility] Temperature Normal (applies to non-numeric resu lts) [facility] PH 7.35-7.45 Normal (applies to non-numeric resul ts) [facility] PCO2 34 mmHg 32-42 Normal (applies to non-numeric resul ts) [facility] PO2 67 mmHg 75-100 Below low normal [facility] HCO3 20.0-26.0 Normal (applies to non-numeric resul ts) [facility] TCO2 23.0-27.0 Below low normal [facility] Actual Base Excess -2.4-2.3 Below low normal [facility] Standard Base Excess -2.4-2.3 Below low normal [facility] Standard Bicarbonate 22.0-26.0 Normal (applies to non-num emilia results) [facility] Oxygen Saturation 95.0-98.0 Below low normal [facility] Pt on Oxygen? Normal (applies to non-numeric re sults) [facility] %Oxygen Normal (applies to non-numeric results) [facility] Oxygen Liter Flow Normal (applies to non-numeri c results) [facility] %Inspired Oxygen Content 4 % Normal (applies to non -numeric results) [facility] Rt Rate Normal (applies to non-numeric results) [facility] Tidal Volume Normal (applies to non-numeric res ults) [facility] Resp PEEP setting Normal (applies to non-numeri c results) [facility] Assisted Control Mode Normal (applies to non-nu meric results) [facility] IPAP Normal (applies to non-numeric results) [facility] EPAP Normal (applies to non-numeric results) [facility] Pressure Support Setting Normal (applies to non -numeric results) [facility] Blood gas puncture site Normal (applies to non- numeric results) [facility] Eh Test Performed Normal (applies to non-num emilia results) [facility] Pressure Applied Time 5 min Normal (applies to non-nu meric results) [facility] ABG Drawn by Normal (applies to non-numeric res ults) [facility] ID Date Data Source [id number] 05/08/2019 03:10:00 PM EST [facility] Name Value Range Interpretation Code Description Data Agueda rce(s) Supporting Document(s) Lactic Acid 3 Hour Post 0.4-2.0 PH [facility] BARTOLO LINDSEY read back critical info rmation 05/08/19 1508 LAB.SAUCH ID Date Data Source [id number] 05/08/2019 11:01:00 AM EST [facility] 3 hour post Lactic if elevated? Y Name Value Range Interpretation Code Description Data Agueda rce(s) Supporting Document(s) Lactic Acid 0.4-2.[address] [facility] alieal BARTOLO LINDSEY read back critical info rmation 05/08/19 1059 DAVID ID Date Data Source [id number] 05/08/2019 04:11:00 PM EST [facility] Name: JHON PATE : 7 Age/Sex: 43M Ordering Provider: Kike Norton MD Med Rec #: [id number] Reg Status: ADM IN Room #: 312-1 Date of Service: 05/08/19 Report Number: [id number] cc:Kike Norton MD; Mateo Rodríguez MD Send Report To: [id number] XRP/XR Chest 2 View [Pa & Lat] Reason for exam: SOB Comparison is made to 03/27/2019 FINDINGS: There are increased markings at the left lung base which are not significantly improved as compared to the previous examination. A persistent infiltrate is suspected. Again continued follow up to ensure complete resolution is recommended. The remainder of the lung solis are clear. The cardiac silhouette is prominent and has not significantly changed. IMPRESSION: Persistent left lower lobe infiltrate. Continued follow up to ensure complete resolution is recommended. REPORT DICTATED BY WOODY BALDWIN, REVIEWED AND SIGNED BY DR. JASMINE Fluoroscopy time in seconds: Number of Exposures: Time Portable Image Performed: Contrast Agent in ml: Method of Administration: REPORT SIGNATURE ON FILE Reported By: Woody Jasmine MD <Electronically signed by Woody Jasmine MD> 05/10/19 0632 Dictation Date/Time: 05/08/19 1118 Transcribed Date/Time: 05/08/19 1611 It Network Engineer: CHAU Name Value Range Interpretation Code Description Data Agueda rce(s) Supporting Document(s) ID Date Data Source [id number] 05/09/2019 03:22:00 PM EST [facility] Name Value Range Interpretation Code Description Data Agueda rce(s) Supporting Document(s) Sodium 140 mmol/L 137-145 Normal (applies to non-numeric resul ts) [facility] Potassium 3.5-5.1 Normal (applies to non-numeric resul ts) [facility] Chloride 106 mmol/L 98-112 Normal (applies to non-numeric resul ts) [facility] Carbon Dioxide CO2 22.0-33.0 Below low normal [facility] Anion Gap 4.0-11.[address] [facility] BUN 15 mg/dL 9-20 Normal (applies to non-numeric resul ts) [facility] Creatinine 0.80-1.50 Normal (applies to non-numeric resul ts) [facility] GFR 63 mL/min >60 Normal (applies to non-numeric resul ts) [facility] Result based on MDRD formula. Glucose Level 159 mg/dL 74-99 Above high normal [facility] The reference range is only applicable w hen fasting. Calcium-Uncorrected 8.4-10.2 Normal (applies to non-nume pako results) [facility] Corrected Calcium 8.4-10.2 Normal (applies to non-numeri c results) [facility] Bilirubin,Total 0.2-1.3 Normal (applies to non-numeric results) [facility] SGOT(AST) 18 U/L 17-59 Normal (applies to non-numeric resul ts) [facility] SGPT(ALT) 53 U/L 21-72 Normal (applies to non-numeric resul ts) [facility] Alkaline Phosphatase 76 U/L 38-126 Normal (applies to non-num emilia results) [facility] can increase Alkaline Phosp le vels up to 2 times the normal adult value. Normal values for children and adolescents are 2 to 3 times the normal adult value. Total Protein 6.3-8.2 Normal (applies to non-numeric re sults) [facility] Albumin 3.5-5.0 Normal (applies to non-numeric resul ts) [facility] ID Date Data Source [id number] 05/09/2019 03:22:00 PM EST [facility] Name Value Range Interpretation Code Description Data Agueda rce(s) Supporting Document(s) C-Reactive Protein,Wide Range <3.00 Above high normal [facility] ID Date Data Source [id number] 05/08/2019 07:35:00 AM EST [facility] Name Value Range Interpretation Code Description Data Agueda rce(s) Supporting Document(s) Troponin I 0.000-0.045 Normal (applies to non-numeric resu lts) [facility] ID Date Data Source [id number] 05/08/2019 07:23:00 AM EST [facility] Name Value Range Interpretation Code Description Data Agueda rce(s) Supporting Document(s) White Blood Count 4.8-10.8 Above high normal [facility] Red Blood Count 4.35-6.08 Normal (applies to non-numeric results) [facility] Hemoglobin 13.0-17.5 Normal (applies to non-numeric resul ts) [facility] Hematocrit 37.7-51.0 Normal (applies to non-numeric resul ts) [facility] Mean Corpuscular Volume 80-94 Normal (applies to non- numeric results) [facility] Mean Corpuscular Hemoglobin 27.0-33.0 Normal (appli es to non-numeric results) [facility] Mean Corpuscular HGB Conc 32.0-36.0 Normal (applies to no n-numeric results) [facility] Red Cell Distribution Width 11.5-14.5 Normal (appli es to non-numeric results) [facility] Platelet Count 291 X10 3/uL 130-450 Normal (applies to non-numeric results) [facility] Mean Platelet Volume 9.6-13.1 Normal (applies to non-num emilia results) [facility] Imm Grans% (AUTO) 0.0-2.0 Normal (applies to non-numeri c results) [facility] Neutrophils % (AUTO) 43.0-75.0 Above high normal [facility] Lymphocytes % (AUTO) 20.5-45.5 Below low normal [facility] Monocytes % (AUTO) 5.5-11.7 Below low normal [facility] Eosinophils % (AUTO) 0.7-4.6 Below low normal [facility] Basophils % (AUTO) 0.2-1.2 Normal (applies to non-numer ic results) [facility] Imm Grans# (AUTO) 0.00-0.50 Normal (applies to non-numeri c results) [facility] Neutrophils # (AUTO) 1.90-7.00 Above high normal [facility] Lymphocytes # (AUTO) 1.30-3.10 Normal (applies to non-num emilia results) [facility] Monocytes # (AUTO) 0.40-0.70 Below low normal [facility] Eosinophils# (AUTO) 0.00-0.30 Normal (applies to non-nume pako results) [facility] Basophils # (AUTO) 0.00-0.10 Normal (applies to non-numer ic results) [facility] ID Date Data Source [id number] 05/08/2019 12:30:00 AM [facility] Name Value Range Interpretation Code Description Data Agueda rce(s) Supporting Document(s) Lactic Acid 3 Hour Post 0.4-2.0 PH [facility] LORIE ANDREWAttila read back critical inform ation 05/08/19 0028 LAB.LACBR ID Date Data Source [id number] 05/08/2019 12:23:00 AM [facility] Name Value Range Interpretation Code Description Data Agueda rce(s) Supporting Document(s) Troponin I 0.000-0.045 Normal (applies to non-numeric resu lts) [facility] ID Date Data Source [id number] 05/07/2019 11:40:00 PM [facility] Name Value Range Interpretation Code Description Data Agueda rce(s) Supporting Document(s) Procalcitonin 0.00-0.24 Normal (applies to non-numeric re sults) [facility] 1.Risk of Progression to severe sepsis a nd septic shock: < 0.50 ng/mL Low Risk of severe sepsis and/or septic shock > 2.00 ng/mL High Risk of severe sepsis and/or septic shock 2.Decision on antibiotic discontinuation for suspected or confirmed septic patients: Antibiotic therapy may be discontinued if the current PCT is <0.50 ng/mL or if there is an 80% decrease in PCT. 3.Decision for antibiotic therapy for patients with suspected or confirmed Lower Respiratory Tract Infection (LRTI): >0.25 ng/mL - Antibiotic therapy encouraged 4.Decision on antibiotic discontinuation for patients with suspected or confirmed LRTI: Antibiotic therapy may be discontinued if the current PCT is <0.25 ng/mL or if there is an 80% decrease in PCT. NOTE: Antibiotic therapy should be considered regardless of PCT result if the patient is clinically unstable, is at high risk for adverse outcome, has strong evidence of bacterial pathogen or the clinical context indicates antibiotic therapy is warranted. ID Date Data Source [id number] 05/07/2019 11:04:00 PM [facility] Name Value Range Interpretation Code Description Data Agueda rce(s) Supporting Document(s) Venous PH 7.31-7.[address] [facility] PCO2 33 mmHg 42-55 Below low normal [facility] PO2 67 mmHg 30-[address] [facility] HCO3 24.0-28.0 Below low normal [facility] ID Date Data Source [id number] 05/08/2019 12:55:00 PM [facility] Name: JHON PATE : 7 Age/Sex: 43M Ordering Provider: Austin Levin MD Med Rec #: [id number] Reg Status: ADM IN Room #: 312-1 Date of Service: 05/07/19 Report Number: [id number] cc:Austin Leivn MD; Mateo Rodríguez MD Send Report To: [id number] XRP/XR Chest 1 View [Pa OR Ap] Reason for exam: SHORTNESS OF BREATH FINDINGS: The heart is not enlarged. Atelectasis is noted at the bases. No failure is seen. The bony structures are unremarkable. IMPRESSION: Atelectasis otherwise negative. Fluoroscopy time in seconds: Number of Exposures: Time Portable Image Performed: Contrast Agent in ml: Method of Administration: REPORT SIGNATURE ON FILE Reported By: Alex Beckett MD <Electronically signed by Alex Beckett MD> 05/10/19 0628 Dictation Date/Time: 05/08/19 0636 Transcribed Date/Time: 05/08/19 1255 It Network Engineer: LYNETTE Name Value Range Interpretation Code Description Data Agueda rce(s) Supporting Document(s) ID Date Data Source [id number] 05/12/2019 07:19:00 PM [facility] Name Value Range Interpretation Code Description Data [facility] rce(s) Supporting Document(s) Blood Culture-Venous [facility] ID Date Data Source [id number] 05/07/2019 07:53:00 PM [facility] 3 hour post Lactic if elevated? Y Name Value Range Interpretation Code Description Data Agueda rce(s) Supporting Document(s) Lactic Acid 0.4-2.[address] [facility] pital DR.JASON LEVIN read back critical infor miriam 05/07/191951 LAB.HAR ID Date Data Source [id number] 05/07/2019 08:48:00 PM [facility] 3 hour post Lactic if elevated? Y Not d etectedNot detectedNot detectedNot detectedNot detectedNot detectedNot detectedNot detectedNot detectedNot detectedNot detectedNot detectedNot detectedNot detected Methodology: Multiplexed PCR Reference Range: None detectedNot detectedNot detectedNot detectedNot detected Name Value Range Interpretation Code Description Data Agueda rce(s) Supporting Document(s) ID Date Data Source [id number] 05/12/2019 07:19:00 PM [facility] Name Value Range Interpretation Code Description Data Agueda rce(s) Supporting Document(s) Blood Culture-Venous [facility] ID Date Data Source [id number] 05/07/2019 07:45:00 PM EST [facility] Name Value Range Interpretation Code Description Data Agueda rce(s) Supporting Document(s) Sodium 139 mmol/L 137-145 Normal (applies to non-numeric resul ts) [facility] Potassium 3.5-5.1 Normal (applies to non-numeric resul ts) [facility] Chloride 104 mmol/L 98-112 Normal (applies to non-numeric resul ts) [facility] Carbon Dioxide CO2 22.0-33.0 Normal (applies to non-numer ic results) [facility] Anion Gap 4.0-11.[address] [facility] BUN 13 mg/dL 9-20 Normal (applies to non-numeric resul ts) [facility] Creatinine 0.80-1.50 Normal (applies to non-numeric resul ts) [facility] GFR 68 mL/min >60 Normal (applies to non-numeric resul ts) [facility] Result based on MDRD formula.Specimen li pemic, interpret with care. The reference range is only applicable when fasting. Calcium-Uncorrected 8.4-10.2 Normal (applies to non-nume pako results) [facility] Corrected Calcium 8.4-10.2 Normal (applies to non-numeri c results) [facility] Bilirubin,Total 0.2-1.3 Normal (applies to non-numeric results) [facility] Specimen lipemic, interpret with care.Sp ecimen lipemic, interpret with care. Alkaline Phosphatase 97 U/L 38-126 Normal (applies to non-num emilia results) [facility] can increase Alkaline Phosp le vels up to 2 times the normal adult value. Normal values for children and adolescents are 2 to 3 times the normal adult value. Total Protein 6.3-8.2 Normal (applies to non-numeric re sults) [facility] Albumin 3.5-5.0 Normal (applies to non-numeric resul ts) [facility] ID Date Data Source [id number] 05/07/2019 07:45:00 PM EST [facility] Name Value Range Interpretation Code Description Data Agueda rce(s) Supporting Document(s) Magnesium 1.80-2.40 Normal (applies to non-numeric resul ts) [facility] Hospital ID Date Data Source [id number] 05/07/2019 07:45:00 PM [facility] Name Value Range Interpretation Code Description Data Agueda rce(s) Supporting Document(s) Lipase 139 U/L 73-393 Normal (applies to non-numeric resul ts) [facility] ID Date Data Source [id number] 05/07/2019 07:28:00 PM [facility] Name Value Range Interpretation Code Description Data Agueda rce(s) Supporting Document(s) Troponin I 0.000-0.045 Normal (applies to non-numeric resu lts) [facility] ID Date Data Source [id number] 05/07/2019 07:15:00 PM [facility] Name Value Range Interpretation Code Description Data Agueda rce(s) Supporting Document(s) PT 9.4-12.5 Normal (applies to non-numeric results) [facility] INR Normal (applies to non-numeric results) [facility] The use of the INR is restricted to francisco javier ents on stable oral anticoagulant. Therapeutic Range: 2.0-3.0 High Risk Values: 2.5-3.5 ID Date Data Source [id number] 05/07/2019 07:15:00 PM [facility] Name Value Range Interpretation Code Description Data Agueda rce(s) Supporting Document(s) PTT 25.1-36.5 Normal (applies to non-numeric resul ts) [facility] ID Date Data Source [id number] 05/07/2019 07:04:00 PM [facility] Name Value Range Interpretation Code Description Data Agueda rce(s) Supporting Document(s) White Blood Count 4.8-10.8 Normal (applies to non-numeri c results) [facility] Red Blood Count 4.35-6.08 Normal (applies to non-numeric results) [facility] Hemoglobin 13.0-17.5 Normal (applies to non-numeric resul ts) [facility] Hematocrit 37.7-51.0 Normal (applies to non-numeric resul ts) [facility] Mean Corpuscular Volume 80-94 Normal (applies to non- numeric results) [facility] Mean Corpuscular Hemoglobin 27.0-33.0 Normal (appli es to non-numeric results) [facility] Mean Corpuscular HGB Conc 32.0-36.0 Normal (applies to no n-numeric results) [facility] Red Cell Distribution Width 11.5-14.5 Normal (appli es to non-numeric results) [facility] Platelet Count 342 X10 3/uL 130-450 Normal (applies to non-numeric results) [facility] Mean Platelet Volume 9.6-13.1 Normal (applies to non-num emilia results) [facility] Imm Grans% (AUTO) 0.0-2.0 Normal (applies to non-numeri c results) [facility] Neutrophils % (AUTO) 43.0-75.0 Normal (applies to non-num emilia results) [facility] Lymphocytes % (AUTO) 20.5-45.5 Normal (applies to non-num emilia results) [facility] Monocytes % (AUTO) 5.5-11.7 Normal (applies to non-numer ic results) [facility] Eosinophils % (AUTO) 0.7-4.6 Normal (applies to non-num emilia results) [facility] Basophils % (AUTO) 0.2-1.2 Normal (applies to non-numer ic results) [facility] Imm Grans# (AUTO) 0.00-0.50 Normal (applies to non-numeri c results) [facility] Neutrophils # (AUTO) 1.90-7.00 Normal (applies to non-num emilia results) [facility] Lymphocytes # (AUTO) 1.30-3.10 Above high normal [facility] Monocytes # (AUTO) 0.40-0.70 Above high normal [facility] Eosinophils# (AUTO) 0.00-0.30 Normal (applies to non-nume pako results) [facility] Basophils # (AUTO) 0.00-0.10 Normal (applies to non-numer ic results) [facility] ID Date Data Source [id number] 05/08/2019 04:14:00 PM [facility] Name: JHON PATE : 7 Age/Sex: 43M Ordering Provider: Kevin Crocker MD Med Rec #: [id number] Reg Status:ADM IN Room #: 312-1 Date of Service: 05/07/19 Report Number: [id number] cc: Kevin Crocker MD; Kike Norton MD; Mateo Rodríguez MD Send Report To: SINUS TACHYCARDIA NONSPECIFIC T WAVE CHANGES GROSSLY UNCHANGED FROM PRIOR ON SAME DAY Physician Delinquent Tax Collection Assistant: Matias Vu D.O. ECG HEART RATE: 124 /min ECG RR INTERVAL: 482 ms ECG P DURATION: 114 ms ECG QRS DURATION: 102 ms ECG [place] INTERVAL: 145 ms ECG QT INTERVAL: 300 ms ECG QTC INTERVAL: 412 ms Q-T dispersion: ms ECG P AXIS: 39 deg ECG QRS AXIS: -6 deg ECG T AXIS: -3 deg REPORT SIGNATURE ON FILE 05/08/191613 Reported By: Matias Vu DO <Electronically signed by Matias Vu DO in OV> * <<Signature on File>> Exam Date/Time: 05/07/19 1826 Order #: [id number] Dictation Date/Time: 05/08/191613 Transcribed Date/Time: 05/08/191613 It Network Engineer: TOBY Name Value Range Interpretation Code Description Data Agueda rce(s) Supporting Document(s) ID Date Data Source [id number] 05/08/2019 04:13:00 PM [facility] Name: JHON PATE : 7 Age/Sex: 43M Ordering Provider: Kevin Crocker MD Med Rec #: [id number] Reg Status:ADM IN Room #: 312-1 Date of Service: 05/07/19 Report Number: [id number] cc: Kevin Crocker MD; Kike Norton MD; Mateo Rodríguez MD Send Report To: SINUS TACHYCARDIA COMPARED TO PRIOR STUDY ON 03/19/2019 THE PATIENT IS NOW TACHYCARDIC Physician Delinquent Tax Collection Assistant: Matias Vu D.O. ECG HEART RATE: 129 /min ECG RR INTERVAL: 465 ms ECG P DURATION: 117 ms ECG QRS DURATION: 98 ms ECG [place] INTERVAL: 147 ms ECG QT INTERVAL: 298 ms ECG QTC INTERVAL: 418 ms Q-T dispersion: ms ECG P AXIS: 40 deg ECG QRS AXIS: -9 deg ECG T AXIS: 1 deg REPORT SIGNATURE ON FILE 05/08/19 161 Reported By: Matias Vu DO <Electronically signed by Matias Vu DO in OV> * <<Signature on File>> Exam Date/Time: 05/07/19 1805 Order #: [id number] Dictation Date/Time: 05/08/191612 Transcribed Date/Time: 05/08/191612 It Network Engineer: TOBY Name Value Range Interpretation Code Description Data Agueda rce(s) Supporting Document(s) Procedure Social History Code Duration Value Status Description Data Source(s ) Smoking 06/10/2020 12:00:00 AM EST Never Smoker completed Never S moker eCW1 ([facility]) Smoking 06/10/2020 12:00:00 AM EST Never Smoker completed Never S moker eCW1 ([facility]) Smoking 06/10/2020 12:00:00 AM EST Never Smoker completed Never S moker eCW1 ([facility]) Alcohol intake 06/09/2020 12:00:00 AM EST Yes completed [facility] Smoking 06/09/2020 12:00:00 AM EST Never smoker completed Never s moker [facility] Smoking 05/27/2020 12:00:00 AM EST Never Smoker completed Never S moker eCW1 ([facility]) Smoking 05/27/2020 12:00:00 AM EST Never Smoker completed Never S moker eCW1 ([facility]) Smoking 05/27/2020 12:00:00 AM EST Patient has never smoked co mpleted Patient has never smoked MEDENT ([facility], ) Smoking 04/20/2020 12:00:00 AM EST Never Smoker completed Never S moker eCW1 ([facility]) Smoking 04/20/2020 12:00:00 AM EST Never Smoker completed Never S moker eCW1 ([facility]) Smoking 04/20/2020 12:00:00 AM EST Never Smoker completed Never S moker eCW1 ([facility]) Smoking 04/20/2020 12:00:00 AM EST Never Smoker completed Never S moker eCW1 ([facility]) Smoking 04/20/2020 12:00:00 AM EST Never Smoker completed Never S moker eCW1 ([facility]) Smoking 04/20/2020 12:00:00 AM EST Never Smoker completed Never S moker eCW1 ([facility]) Smoking 04/20/2020 12:00:00 AM EST Never Smoker completed Never S moker eCW1 ([facility]) Smoking 03/30/2020 12:00:00 AM EDT Never Smoker completed Never S moker eCW1 ([facility]) Smoking 03/30/2020 12:00:00 AM EDT Never Smoker completed Never S moker eCW1 ([facility]) Smoking 03/30/2020 12:00:00 AM EDT Never Smoker completed Never S moker eCW1 ([facility]) Smoking 03/30/2020 12:00:00 AM EDT Never Smoker completed Never S moker eCW1 ([facility]) Alcohol intake 03/17/2020 12:00:00 AM EDT Current drinker of al cohol (finding) completed Current drinker of alcohol (finding) [facility] Tobacco use and exposure 03/17/2020 12:00:00 AM EDT Never used co mpleted Never used [facility] Smoking 03/17/2020 12:00:00 AM EDT Never smoker completed Never s [facility] Alcohol intake 02/07/2020 12:00:00 AM EDT Current drinker of al cohol (finding) completed Current drinker of alcohol (finding) [facility] Alcohol intake 01/03/2020 12:00:00 AM EDT Current drinker of al cohol (finding) completed Current drinker of alcohol (finding) [facility] Smoking 01/03/2020 12:00:00 AM EDT Never smoker completed Never s [facility] Smoking 12/31/2019 12:00:00 AM EDT Never Smoker completed Never S moker eCW1 ([facility]) Smoking 12/31/2019 12:00:00 AM EDT Never Smoker completed Never S moker eCW1 ([facility]) Smoking 12/31/2019 12:00:00 AM EDT Never Smoker completed Never S moker eCW1 ([facility]) Smoking 12/31/2019 12:00:00 AM EDT Never Smoker completed Never S moker eCW1 ([facility]) Smoking 12/31/2019 12:00:00 AM EDT Never Smoker completed Never S moker eCW1 ([facility]) Smoking 11/25/2019 12:00:00 AM EDT Never Smoker completed Never S moker eCW1 ([facility]) Smoking 11/25/2019 12:00:00 AM EDT Never Smoker completed Never S moker eCW1 ([facility]) Smoking 11/25/2019 12:00:00 AM EDT Never Smoker completed Never S moker eCW1 ([facility]) Smoking 11/25/2019 12:00:00 AM EDT Never Smoker completed Never S moker eCW1 ([facility]) Smoking 11/25/2019 12:00:00 AM EDT Never Smoker completed Never S moker eCW1 ([facility]) Smoking 11/25/2019 12:00:00 AM EDT Never Smoker completed Never S moker eCW1 ([facility]) Smoking 11/19/2019 12:00:00 AM EDT Never Smoker completed Never S moker eCW1 ([facility]) Vital Signs ID Date Data Source UNK Name Value Range Interpretation Code Description Data Source(s) Diastolic blood pressure 70 mm[Hg] 70 mm[Hg] eCW1 ([facility]) Systolic blood pressure 118 mm[Hg] 118 mm[Hg] e CW1 ([facility]) Body temperature 97.9 [degF] 97.9 [degF] eCW1 ( [facility]) Respiratory rate 17 /min 17 /min eCW1 ([facility]) Heart rate /min eCW1 ([facility]) Body mass index (BMI) [Ratio] 40.14 kg/m2 40.14 kg/m2 eCW1 ([facility]) Body height 68 [in_i] 68 [in_i] eCW1 ([facility]) Body weight 264 [lb_av] 264 [lb_av] eCW1 ([facility]) Oxygen saturation in Arterial blood by Pulse oximetry 94 % 94 % [facility] Body mass index (BMI) [Ratio] 39.68 kg/m2 39.68 kg/m2 [facility] Body weight 118.389 kg 118.389 kg [facility] Body height 172.7 cm 172.7 cm [facility] Heart rate 88 /min 88 /min [facility] Diastolic blood pressure 62 mm[Hg] 62 mm[Hg] [facility] Systolic blood pressure 112 mm[Hg] 112 mm[Hg] [facility] Body surface area Derived from formula 2.27 m2 2.27 m2 [facility] ([facility], ) Body weight 115.668 kg 115.668 kg [facility] ([facility], ) [place] body weight 154 [lb_av] 154 [lb_av] [facility] T ([facility], ) Body mass index (BMI) [Ratio] 38.8 kg/m2 38.8 k g/m2 [facility] ([facility], ) Body weight 255.00 [lb_av] 255.00 [lb_av] MEDEN T ([facility], ) Body height 68 [in_i] 68 [in_i] [facility] 5'8" Body temperature 95.5 [degF] 95.5 [degF] [facility] ([facility]) Oxygen saturation in Arterial blood by Pulse oximetry 954 % 954 % [facility] ([facility]) Heart rate 99 /min 99 /min [facility] ([facility]) Diastolic blood pressure 78 mm[Hg] 78 mm[Hg] [facility] ([facility]) Systolic blood pressure 110 mm[Hg] 110 mm[Hg] [facility] ([facility]) Body surface area Derived from formula 2.27 m2 2.27 m2 [facility] ([facility]) Body weight 116.122 kg 116.122 kg [facility] ([facility]) [place] body weight 154 [lb_av] 154 [lb_av] [facility] Body mass index (BMI) [Ratio] 38.9 kg/m2 38.9 k g/m2 [facility] ([facility]) Body weight 256.00 [lb_av] 256.00 [lb_av] [facility] Body height 68 [in_i] 68 [in_i] [facility] ([facility]) 5'8" Body temperature 97.2 [degF] 97.2 [degF] [facility] ([facility]) Oxygen saturation in Arterial blood by Pulse oximetry 954 % 954 % [facility] ([facility]) Heart rate 108 /min 108 /min [facility] ([facility]) Diastolic blood pressure 84 mm[Hg] 84 mm[Hg] [facility] ([facility]) Systolic blood pressure 122 mm[Hg] 122 mm[Hg] [facility] ([facility]) Heart rate 113 /min 113 /min [facility] ([facility]) Diastolic blood pressure 80 mm[Hg] 80 mm[Hg] [facility] ([facility]) Systolic blood pressure 112 mm[Hg] 112 mm[Hg] [facility] ([facility]) Body surface area Derived from formula 2.27 m2 2.27 m2 [facility] ([facility]) Body weight 116.575 kg 116.575 kg [facility] ([facility]) [place] body weight 154 [lb_av] 154 [lb_av] [facility] T ([facility]) Body mass index (BMI) [Ratio] 39.1 kg/m2 39.1 k g/m2 [facility] ([facility]) Body weight 257.00 [lb_av] 257.00 [lb_av] [facility] T ([facility]) Body height 68 [in_i] 68 [in_i] [facility] ([facility]) 5'8" Oxygen saturation in Arterial blood by Pulse oximetry 933 % 933 % [facility] ([facility]) Systolic blood pressure 122 mm[Hg] 122 mm[Hg] e CW1 ([facility]) Body temperature 97.5 [degF] 97.5 [degF] eCW1 ( [facility]) Respiratory rate 18 /min 18 /min eCW1 ([facility]) Heart rate /min eCW1 ([facility]) Body mass index (BMI) [Ratio] 39.68 kg/m2 39.68 kg/m2 W1 ([facility]) Body height 68 [in_i] 68 [in_i] eCW1 ([facility]) Body weight 261 [lb_av] 261 [lb_av] eCW1 ([facility]) Diastolic blood pressure 80 mm[Hg] 80 mm[Hg] eCW1 ([facility]) Body weight 114.307 kg 114.307 kg [facility]) [place] body weight 154 [lb_av] 154 [lb_av] [facility] T ([facility]) Body mass index (BMI) [Ratio] 38.3 kg/m2 38.3 k g/m2 [facility] ([facility]) Body weight 252.00 [lb_av] 252.00 [lb_av] [facility] Body height 68 [in_i] 68 [in_i] [facility] ([facility]) 5'8" Body temperature 97.4 [degF] 97.4 [degF] [facility] ([facility]) Oxygen saturation in Arterial blood by Pulse oximetry 953 % 953 % [facility] ([facility]) Heart rate 118 /min 118 /min [facility] ([facility]) Diastolic blood pressure 82 mm[Hg] 82 mm[Hg] [facility] ([facility]) Systolic blood pressure 110 mm[Hg] 110 mm[Hg] [facility] ([facility]) Body weight 115.668 kg 115.668 kg [facility] ([facility]) [place] body weight 154 [lb_av] 154 [lb_av] [facility] Body mass index (BMI) [Ratio] 38.8 kg/m2 38.8 k g/m2 [facility] ([facility]) Body weight 255.00 [lb_av] 255.00 [lb_av] [facility] Body height 68 [in_i] 68 [in_i] [facility] ([facility]) 5'8" Body temperature 96.3 [degF] 96.3 [degF] [facility] ([facility]) Oxygen saturation in Arterial blood by Pulse oximetry 963 % 963 % [facility] ([facility]) Heart rate 109 /min 109 /min [facility] ([facility]) Diastolic blood pressure 82 mm[Hg] 82 mm[Hg] [facility] ([facility]) Systolic blood pressure 110 mm[Hg] 110 mm[facility]Hg] [facility] Diastolic blood pressure 54 mm[Hg] 54 mm[Hg] eCW1 ([facility]) Systolic blood pressure 124 mm[Hg] 124 mm[Hg] e CW1 ([facility]) Body temperature 97.0 [degF] 97.0 [degF] eCW1 ( [facility]) Respiratory rate 21 /min 21 /min eCW1 ([facility]) Heart rate /min eCW1 ([facility]) Body mass index (BMI) [Ratio] 38.92 kg/m2 38.92 kg/m2 eCW1 ([facility]) Body height 68 [in_i] 68 [in_i] eCW1 ([facility]) Body weight 256 [lb_av] 256 [lb_av] eCW1 ([facility]) Diastolic blood pressure 80 mm[Hg] 80 mm[Hg] eCW1 ([facility]) Systolic blood pressure 110 mm[Hg] 110 mm[Hg] e CW1 ([facility]) Body temperature 97.2 [degF] 97.2 [degF] eCW1 ( [facility]) Respiratory rate 20 /min 20 /min eCW1 ([facility]) Heart rate 90 /min 90 /min eCW1 ([facility]) Body mass index (BMI) [Ratio] 38.46 kg/m2 38.46 kg/m2 eCW1 ([facility]) Body height 68 [in_i] 68 [in_i] eCW1 ([facility]) Body weight 253 [lb_av] 253 [lb_av] eCW1 ([facility]) Body weight 115.668 kg 115.668 [facility], [facility] [place] body weight 154 [lb_av] 154 [lb_av] [facility] T ([facility], ) Body mass index (BMI) [Ratio] 38.8 kg/m2 38.8 k g/m2 [facility], ) Body weight 255.00 [lb_av] 255.00 [lb_av] MED[facility] T ([facility], ) Body height 68 [in_i] 68 [in_i] [facility] ([facility], ) 5'8" Body temperature 98.4 [degF] 98.4 [degF] [facility] ([facility], ) Oxygen saturation in Arterial blood by Pulse oximetry 952 % 952 % [facility], ) Heart rate 88 /min 88 /min [facility], ) Diastolic blood pressure 70 mm[Hg] 70 mm[Hg] [facility] ([facility], ) Systolic blood pressure 120 mm[Hg] 120 mm[Hg] M EDCYNDI ([facility], ) Diastolic blood pressure 78 mm[Hg] 78 mm[Hg] eCW1 ([facility]) Systolic blood pressure 124 mm[Hg] 124 mm[Hg] e CW1 ([facility]) Body temperature 98.1 [degF] 98.1 [degF] eCW1 ( [facility]) Respiratory rate 24 /min 24 /min eCW1 ([facility]) Heart rate 118 /min 118 /min eCW1 ([facility]) Body mass index (BMI) [Ratio] 38.92 kg/m2 38.92 kg/m2 W1 ([facility]) Body height 68 [in_i] 68 [in_i] eCW1 ([facility]) Body weight 256 [lb_av] 256 [lb_av] eCW1 ([facility]) Diastolic blood pressure 80 mm[Hg] 80 mm[Hg] eCW1 ([facility]) Systolic blood pressure 122 mm[Hg] 122 mm[Hg] e CW1 ([facility]) Body temperature 97.4 [degF] 97.4 [degF] eCW1 ( [facility]) Respiratory rate 18 /min 18 /min eCW1 ([facility]) Heart rate 88 /min 88 /min eCW1 ([facility]) Body mass index (BMI) [Ratio] 38.62 kg/m2 38.62 kg/m2 eCW1 ([facility]) Body height 68 [in_i] 68 [in_i] eCW1 ([facility]) Body weight 254 [lb_av] 254 [lb_av] eCW1 ([facility]) Diastolic blood pressure 80 mm[Hg] 80 mm[Hg] eCW1 ([facility]) Systolic blood pressure 144 mm[Hg] 144 mm[Hg] e CW1 ([facility]) Body temperature 97.2 [degF] 97.2 [degF] eCW1 ( [facility]) Respiratory rate 18 /min 18 /min eCW1 ([facility]) Heart rate 134 /min 134 /min eCW1 ([facility]) Body mass index (BMI) [Ratio] 37.55 kg/m2 37.55 kg/m2 eCW1 ([facility]) Body height 68 [in_us] 68 [in_us] eCW1 ([facility]) Body weight Measured 247 [lb_av] 247 [lb_av] eC W1 ([facility]) Body weight 112.946 kg 112.946 kg [facility] ([facility], ) Body mass index (BMI) [Ratio] 37.9 kg/m2 37.9 k g/m2 [facility] ([facility]) Body weight 249.00 [lb_av] 249.00 [lb_av] MED[facility] T ([facility]) Body height 68 [in_i] 68 [in_i] [facility] ([facility]) 5'8" Body temperature 97.0 [degF] 97.0 [degF] [facility] ([facility]) Oxygen saturation in Arterial blood by Pulse oximetry 96 % 96 % [facility] ([facility]) Heart rate 79 /min 79 /min [facility] ([facility]) Diastolic blood pressure 78 mm[Hg] 78 mm[Hg] [facility] ([facility]) Systolic blood pressure 128 mm[Hg] 128 mm[Hg] M EDENT ([facility]) Body mass index (BMI) [Ratio] 0.8 kg/m2 0.8 kg /m2 [facility] Body weight 68.00 [lb_av] 68.00 [lb_av] [facility] Body height 240 [in_i] 240 [in_i] [facility] 20'0" Respiratory rate 12 /min 12 /min [facility] ( [facility]) Body weight 107.503 kg 107.503 kg [facility] ([facility]) Body mass index (BMI) [Ratio] 36.0 kg/m2 36.0 k g/m2 [facility] ([facility]) Body weight 237.00 [lb_av] 237.00 [lb_av] MED[facility] T ([facility]) Body height 68 [in_i] 68 [in_i] [facility] ([facility]) 5'8" Oxygen saturation in Arterial blood by Pulse oximetry 94 % 94 % [facility] ([facility]) Heart rate 112 /min 112 /min [facility] ([facility]) Diastolic blood pressure 80 mm[Hg] 80 mm[Hg] [facility] ([facility]) Systolic blood pressure 120 mm[Hg] 120 mm[facility]Hg] [facility] Diastolic blood pressure 88 mm[Hg] 88 mm[Hg] eCW1 ([facility]) Systolic blood pressure 132 mm[Hg] 132 mm[Hg] e CW1 ([facility]) Body temperature 97.8 [degF] 97.8 [degF] eCW1 ( [facility]) Respiratory rate 18 /min 18 /min eCW1 ([facility]) Heart rate 106 /min 106 /min eCW1 ([facility]) Body mass index (BMI) [Ratio] 36.94 kg/m2 36.94 kg/m2 W1 ([facility]) Body height 68 [in_us] 68 [in_us] eCW1 ([facility]) Body weight Measured 243 [lb_av] 243 [lb_av] eC W1 ([facility]) Body temperature 97.9 [degF] 97.9 [degF] eCW1 ( [facility]) Body height 68 [in_us] 68 [in_us] eCW1 ([facility]) Body weight Measured 225 [lb_av] 225 [lb_av] eC W1 ([facility]) Body height 68 [in_us] 68 [in_us] eCW1 ([facility]) Body mass index (BMI) [Ratio] 34.21 kg/m2 34.21 kg/m2 eCW1 ([facility]) Heart rate 100 /min 100 /min eCW1 ([facility]) Respiratory rate 16 /min 16 /min eCW1 ([facility]) Body temperature 97.8 [degF] 97.8 [degF] eCW1 ( [facility]) Systolic blood pressure 132 mm[Hg] 132 mm[Hg] e CW1 ([facility]) Diastolic blood pressure 88 mm[Hg] 88 mm[Hg] eCW1 ([facility]) Body weight Measured 224 [lb_av] 224 [lb_av] eC W1 ([facility]) Body height 68 [in_us] 68 [in_us] eCW1 ([facility]) Body mass index (BMI) [Ratio] 34.06 kg/m2 34.06 kg/m2 eCW1 ([facility]) Heart rate 112 /min 112 /min eCW1 ([facility]) Respiratory rate 18 /min 18 /min eCW1 ([facility]) Body temperature 98.4 [degF] 98.4 [degF] eCW1 ( [facility]) Systolic blood pressure 138 mm[Hg] 138 mm[Hg] e CW1 ([facility]) Diastolic blood pressure 78 mm[Hg] 78 mm[Hg] eCW1 ([facility]) ID Date Data Source [id number] 03/24/2020 09:18:31 AM [facility] Name Value Range Interpretation Code Description Data Source(s) WEIGHT RECORDED 247 lb 247 lb [facility] Body height Measured 68 in 68 in [facility] ID Date Data Source [id number] 02/10/2020 09:50:44 AM [facility] Name Value Range Interpretation Code Description Data Source(s) WEIGHT RECORDED 199 lb 199 lb [facility] Body height Measured 67.99 in 67.99 in [facility] ID Date Data Source [id number] 01/06/2020 09:56:00 AM EDT [facility] Name Value Range Interpretation Code Description Data Source(s) Weight (Calculated Kilograms) 106.14 106.14 [facility] Height (Calculated Centimeters) 172.72 172. 72 [facility] Body Mass Index (BMI) 35.6 35.6 [facility] ID Date Data Source [id number] 01/06/2020 09:21:12 AM [facility] Name Value Range Interpretation Code Description Data Source(s) WEIGHT RECORDED 199 lb 199 lb [facility] Body height Measured 67.99 in 67.99 in [facility] ID Date Data Source [id number] 11/08/2019 11:32:00 AM [facility] Name Value Range Interpretation Code Description Data Source(s) Weight (Calculated Kilograms) 106.14 106.14 [facility] Height (Calculated Centimeters) 172.72 172. 72 [facility] Body Mass Index (BMI) 35.6 35.6 [facility] ID Date Data Source [id number] 10/03/2019 08:44:00 AM [facility] Name Value Range Interpretation Code Description Data Source(s) Weight (Calculated Kilograms) 106.14 106.14 [facility] Height (Calculated Centimeters) 172.72 172. 72 [facility] Body Mass Index (BMI) 35.6 35.6 [facility] Weight (Calculated Kilograms) 106.14 106.14 [facility] Height (Calculated Centimeters) 172.72 172. 72 [facility] Body Mass Index (BMI) 35.6 35.6 [facility] ID Date Data Source [id number] 09/20/2019 12:41:00 PM [facility] Name Value Range Interpretation Code Description Data Source(s) Weight (Calculated Kilograms) 106.14 106.14 [facility] Height (Calculated Centimeters) 172.72 172. 72 [facility] Body Mass Index (BMI) 35.6 35.6 [facility] ID Date Data Source [id number] 10/02/2019 09:02:00 AM [facility] Name Value Range Interpretation Code Description Data Source(s) Weight (Calculated Kilograms) 106.14 106.14 [facility] Height (Calculated Centimeters) 172.72 172. 72 [facility] Body Mass Index (BMI) 35.6 35.6 [facility] Weight (Calculated Kilograms) 106.14 106.14 [facility] Height (Calculated Centimeters) 172.72 172. 72 [facility] Body Mass Index (BMI) 35.6 35.6 [facility] Weight (Calculated Kilograms) 106.14 106.14 [facility] Height (Calculated Centimeters) 172.72 172. 72 [facility] Body Mass Index (BMI) 35.6 35.6 [facility] ID Date Data Source [id number] 09/11/2019 10:00:00 AM EDT [facility] Name Value Range Interpretation Code Description Data Source(s) Weight (Calculated Kilograms) 106.14 106.14 [facility] Height (Calculated Centimeters) 172.72 172. 72 [facility] Body Mass Index (BMI) 35.6 35.6 [facility] Weight (Calculated Kilograms) 106.14 106.14 [facility] Height (Calculated Centimeters) 172.72 172. 72 [facility] Body Mass Index (BMI) 35.6 35.6 [facility] Weight (Calculated Kilograms) 106.14 106.14 [facility] Height (Calculated Centimeters) 172.72 172. 72 [facility] Body Mass Index (BMI) 35.6 35.6 [facility] ID Date Data Source [id number] 09/12/2019 09:58:00 AM EDT [facility] Name Value Range Interpretation Code Description Data Source(s) Weight (Calculated Kilograms) 106.14 106.14 [facility] Height (Calculated Centimeters) 172.72 172. 72 [facility] Body Mass Index (BMI) 35.6 35.6 [facility] ID Date Data Source [id number] 09/16/2019 06:45:00 AM EDT [facility] Name Value Range Interpretation Code Description Data Source(s) Weight (Calculated Kilograms) 106.14 106.14 [facility] Height (Calculated Centimeters) 172.72 172. 72 [facility] Body Mass Index (BMI) 35.6 35.6 [facility] Weight (Calculated Kilograms) 106.14 106.14 [facility] Height (Calculated Centimeters) 172.72 172. 72 [facility] Body Mass Index (BMI) 35.6 35.6 [facility] Weight (Calculated Kilograms) 106.14 106.14 [facility] Height (Calculated Centimeters) 172.72 172. 72 [facility] Body Mass Index (BMI) 35.6 35.6 [facility] ID Date Data Source [id number] 10/03/2019 11:20:00 AM EDT [facility] Name Value Range Interpretation Code Description Data Source(s) Weight (Calculated Kilograms) 106.14 106.14 [facility] Height (Calculated Centimeters) 172.72 172. 72 [facility] Body Mass Index (BMI) 35.6 35.6 [facility] ID Date Data Source [id number] 07/20/2019 12:07:00 AM EST [facility] Name Value Range Interpretation Code Description Data Source(s) Weight (Calculated Kilograms) 106.14 106.14 [facility] Height (Calculated Centimeters) 172.72 172. 72 [facility] Body Mass Index (BMI) 35.6 35.6 [facility] ID Date Data Source [id number] 10/03/2019 11:20:00 AM T [facility] Name Value Range Interpretation Code Description Data Source(s) Weight (Calculated Kilograms) 106.14 106.14 [facility] Height (Calculated Centimeters) 172.72 172. 72 [facility] Body Mass Index (BMI) 35.6 35.6 [facility] ID Date Data Source [id number] 07/10/2019 07:07:00 AM EST [facility] Name Value Range Interpretation Code Description Data Source(s) Weight Measurement Method 5 5 [facility] Weight (Calculated Kilograms) 106.14 106.14 [facility] Weight 3744 3744 [facility] Temperature Source 7 7 [facility] Temperature 98.0 98.0 [facility] Respiratory Effort 15 15 [facility] Respiratory Rate 18 18 [facility] Pulse Assessment Method 4 4 [facility] Pulse Rate 103 103 [facility] Height (Calculated Centimeters) 172.72 172. 72 [facility] Height 68 68 [facility] Blood Pressure 137/91 137/91 [facility] Body Mass Index (BMI) 35.6 35.6 [facility] Weight Measurement Method 5 5 [facility] Weight (Calculated Kilograms) 106.14 106.14 [facility] Weight 3744 3744 [facility] Temperature Source 7 7 [facility] Temperature 98.0 98.0 [facility] Respiratory Effort 15 15 [facility] Respiratory Rate 18 18 [facility] Pulse Assessment Method 4 4 [facility] Pulse Rate 103 103 [facility] Height (Calculated Centimeters) 172.72 172. 72 [facility] Height 68 68 [facility] Blood Pressure 137/91 137/91 [facility] Body Mass Index (BMI) 35.6 35.6 [facility] Weight Measurement Method 5 5 [facility] Weight (Calculated Kilograms) 106.14 106.14 [facility] Weight 3744 3744 [facility] Temperature Source 6 6 [facility] Temperature 98.0 98.0 [facility] Respiratory Effort 15 15 [facility] Respiratory Rate 16 16 [facility] Pulse Assessment Method 4 4 [facility] Pulse Rate 86 86 [facility] Height (Calculated Centimeters) 172.72 172. 72 [facility] Height 68 68 [facility] Blood Pressure 125/81 125/81 [facility] Body Mass Index (BMI) 35.6 35.6 [facility] Weight (Calculated Kilograms) 105.60 105.60 [facility] Height (Calculated Centimeters) 172.72 172. 72 [facility] Body Mass Index (BMI) 35.4 35.4 [facility] Weight (Calculated Kilograms) 105.60 105.60 [facility] Height (Calculated Centimeters) 172.72 172. 72 [facility] Body Mass Index (BMI) 35.4 35.4 [facility] Weight (Calculated Kilograms) 105.60 105.60 [facility] Height (Calculated Centimeters) 172.72 172. 72 [facility] Body Mass Index (BMI) 35.4 35.4 [facility] ID Date Data Source [id number] 09/18/2019 12:26:00 PM EDT [facility] Name Value Range Interpretation Code Description Data Source(s) Weight Measurement Method 1 1 [facility] Weight (Calculated Kilograms) 105.60 105.60 [facility] Weight 3744 3744 [facility] Temperature 98.9 98.9 [facility] Respiratory Effort 2 2 [facility] Respiratory Rate 18 18 [facility] Pulse Rate 94 94 [facility] Height (Calculated Centimeters) 172.72 172. 72 [facility] Height 68 68 [facility] Blood Pressure 134/83 134/83 [facility] Body Mass Index (BMI) 35.4 35.4 [facility] Weight Measurement Method 1 1 [facility] Weight (Calculated Kilograms) 105.60 105.60 [facility] Weight 3744 3744 [facility] Temperature 98.9 98.9 [facility] Respiratory Effort 2 2 [facility] Respiratory Rate 18 18 [facility] Pulse Rate 94 94 [facility] Height (Calculated Centimeters) 172.72 172. 72 [facility] Height 68 68 [facility] Blood Pressure 134/83 134/83 [facility] Body Mass Index (BMI) 35.4 35.4 [facility] Weight (Calculated Kilograms) 105.60 105.60 [facility] Weight 3744 3744 [facility] Height (Calculated Centimeters) 172.72 172. 72 [facility] Height 68 68 [facility] Body Mass Index (BMI) 35.4 35.4 [facility] ID Date Data Source [id number] 07/13/2019 01:06:00 AM EST [facility] Name Value Range Interpretation Code Description Data Source(s) Weight (Calculated Kilograms) 105.60 105.60 [facility] Height (Calculated Centimeters) 172.72 172. 72 [facility] Body Mass Index (BMI) 35.4 35.4 [facility] Weight (Calculated Kilograms) 105.60 105.60 [facility] Height (Calculated Centimeters) 172.72 172. 72 [facility] Body Mass Index (BMI) 35.4 35.4 [facility] Weight (Calculated Kilograms) 105.60 105.60 [facility] Height (Calculated Centimeters) 172.72 172. 72 [facility] Body Mass Index (BMI) 35.4 35.4 [facility] ID Date Data Source [id number] 07/31/2019 09:57:00 AM [facility] Name Value Range Interpretation Code Description Data Source(s) Weight (Calculated Kilograms) 105.60 105.60 [facility] Height (Calculated Centimeters) 172.72 172. 72 [facility] Body Mass Index (BMI) 35.4 35.4 [facility] Weight (Calculated Kilograms) 105.60 105.60 [facility] Height (Calculated Centimeters) 172.72 172. 72 [facility] Body Mass Index (BMI) 35.4 35.4 [facility] ID Date Data Source [id number] 07/04/2019 11:07:00 AM [facility] Name Value Range Interpretation Code Description Data Source(s) Weight (Calculated Kilograms) 105.60 105.60 [facility] Height (Calculated Centimeters) 172.72 172. 72 [facility] Body Mass Index (BMI) 35.4 35.4 [facility] ID Date Data Source [id number] 07/11/2019 10:03:00 AM [facility] Name Value Range Interpretation Code Description Data Source(s) Weight (Calculated Kilograms) 105.60 105.60 [facility] Height (Calculated Centimeters) 172.72 172. 72 [facility] Body Mass Index (BMI) 35.4 35.4 [facility] ID Date Data Source [id number] 06/27/2019 11:10:00 AM [facility] Name Value Range Interpretation Code Description Data Source(s) Weight (Calculated Kilograms) 105.60 105.60 [facility] Height (Calculated Centimeters) 172.72 172. 72 [facility] Body Mass Index (BMI) 35.4 35.4 [facility] ID Date Data Source [id number] 06/26/2019 11:10:00 AM [facility] Name Value Range Interpretation Code Description Data Source(s) Weight (Calculated Kilograms) 105.60 105.60 [facility] Height (Calculated Centimeters) 172.72 172. 72 [facility] Body Mass Index (BMI) 35.4 35.4 [facility] Weight (Calculated Kilograms) 105.60 105.60 [facility] Height (Calculated Centimeters) 172.72 172. 72 [facility] Body Mass Index (BMI) 35.4 35.4 [facility] Weight (Calculated Kilograms) 105.60 105.60 [facility] Height (Calculated Centimeters) 172.72 172. 72 [facility] Body Mass Index (BMI) 35.4 35.4 [facility] ID Date Data Source [id number] 06/14/2019 08:58:00 AM [facility] Name Value Range Interpretation Code Description Data Source(s) Weight (Calculated Kilograms) 105.60 105.60 [facility] Height (Calculated Centimeters) 172.72 172. 72 [facility] Body Mass Index (BMI) 35.4 35.4 [facility] ID Date Data Source [id number] 07/11/2019 09:51:00 AM [facility] Name Value Range Interpretation Code Description Data Source(s) Weight (Calculated Kilograms) 105.60 105.60 [facility] Height (Calculated Centimeters) 172.72 172. 72 [facility] Body Mass Index (BMI) 35.4 35.4 [facility] ID Date Data Source [id number] 06/07/2019 09:23:00 AM [facility] Name Value Range Interpretation Code Description Data Source(s) Weight (Calculated Kilograms) 105.60 105.60 [facility] Height (Calculated Centimeters) 172.72 172. 72 [facility] Body Mass Index (BMI) 35.4 35.4 [facility] ID Date Data Source [id number] 07/09/2019 09:32:00 AM [facility] Name Value Range Interpretation Code Description Data Source(s) Weight Measurement Method 5 5 [facility] Weight (Calculated Kilograms) 105.60 105.60 [facility] Weight 3724.93 3724.93 [facility] Temperature Source 7 7 [facility] Temperature 98.6 98.6 [facility] Respiratory Effort 1 1 [facility] Respiratory Rate 17 17 [facility] Pulse Assessment Method 4 4 [facility] Pulse Rate 109 109 [facility] Height (Calculated Centimeters) 172.72 172. 72 [facility] Height 68 68 [facility] Blood Pressure 140/84 140/84 [facility] Body Mass Index (BMI) 35.4 35.4 [facility] Weight Measurement Method 5 5 [facility] Weight (Calculated Kilograms) 105.60 105.60 [facility] Weight 3724.93 3724.93 [facility] Temperature Source 7 7 [facility] Temperature 98.6 98.6 [facility] Respiratory Effort 1 1 [facility] Respiratory Rate 17 17 [facility] Pulse Assessment Method 4 4 [facility] Pulse Rate 109 109 [facility] Height (Calculated Centimeters) 172.72 172. 72 [facility] Height 68 68 [facility] Blood Pressure 140/84 140/84 [facility] Body Mass Index (BMI) 35.4 35.4 [facility] Weight Measurement Method 5 5 [facility] Weight (Calculated Kilograms) 105.60 105.60 [facility] Weight 3724.93 3724.93 [facility] Temperature Source 7 7 [facility] Temperature 98.6 98.6 [facility] Respiratory Effort 1 1 [facility] Respiratory Rate 17 17 [facility] Pulse Assessment Method 4 4 [facility] Pulse Rate 109 109 [facility] Height (Calculated Centimeters) 172.72 172. 72 [facility] Height 68 68 [facility] Blood Pressure 140/84 140/84 [facility] Body Mass Index (BMI) 35.4 35.4 [facility] Weight Measurement Method 5 5 [facility] Weight (Calculated Kilograms) 105.60 105.60 [facility] Weight 3724.93 3724.93 [facility] Temperature Source 7 7 [facility] Temperature 98.5 98.5 [facility] Respiratory Effort 1 1 [facility] Respiratory Rate 19 19 [facility] Pulse Assessment Method 4 4 [facility] Pulse Rate 101 101 [facility] Height (Calculated Centimeters) 172.72 172. 72 [facility] Height 68 68 [facility] Blood Pressure 121/87 121/87 [facility] Body Mass Index (BMI) 35.4 35.4 [facility] Weight Measurement Method 5 5 [facility] Weight (Calculated Kilograms) 105.60 105.60 [facility] Weight 3724.93 3724.93 [facility] Temperature Source 7 7 [facility] Temperature 99.0 99.0 [facility] Respiratory Effort 15 15 [facility] Respiratory Rate 14 14 [facility] Pulse Assessment Method 4 4 [facility] Pulse Rate 124 124 [facility] Height (Calculated Centimeters) 172.72 172. 72 [facility] Height 68 68 [facility] Blood Pressure 130/78 130/78 [facility] Body Mass Index (BMI) 35.4 35.4 [facility] Weight Measurement Method 5 5 [facility] Weight (Calculated Kilograms) 105.60 105.60 [facility] Weight 3724.93 3724.93 [facility] Temperature Source 7 7 [facility] Temperature 98.2 98.2 [facility] Respiratory Rate 28 28 [facility] Pulse Assessment Method 4 4 [facility] Pulse Rate 120 120 [facility] Height (Calculated Centimeters) 172.72 172. 72 [facility] Height 68 68 [facility] Blood Pressure 139/87 139/87 [facility] Body Mass Index (BMI) 35.4 35.4 [facility] Weight (Calculated Kilograms) 91.51 91.51 [facility] Height (Calculated Centimeters) 172.72 172. 72 [facility] Body Mass Index (BMI) 30.7 30.7 [facility] Weight (Calculated Kilograms) 91.51 91.51 [facility] Height (Calculated Centimeters) 172.72 172. 72 [facility] Body Mass Index (BMI) 30.7 30.7 [facility] Weight (Calculated Kilograms) 91.51 91.51 [facility] Height (Calculated Centimeters) 172.72 172. 72 [facility] Body Mass Index (BMI) 30.7 30.7 [facility] Weight (Calculated Kilograms) 91.51 91.51 [facility] Height (Calculated Centimeters) 172.72 172. 72 [facility] Body Mass Index (BMI) 30.7 30.7 [facility] ID Date Data Source [id number] 05/29/2019 11:05:00 AM EST [facility] Name Value Range Interpretation Code Description Data Source(s) Weight (Calculated Kilograms) 91.51 91.51 [facility] Height (Calculated Centimeters) 172.72 172. 72 [facility] Body Mass Index (BMI) 30.7 30.7 [facility] Weight (Calculated Kilograms) 91.51 91.51 [facility] Height (Calculated Centimeters) 172.72 172. 72 [facility] Body Mass Index (BMI) 30.7 30.7 [facility] Weight (Calculated Kilograms) 91.51 91.51 [facility] Height (Calculated Centimeters) 172.72 172. 72 [facility] Body Mass Index (BMI) 30.7 30.7 [facility] Weight (Calculated Kilograms) 91.51 91.51 [facility] Height (Calculated Centimeters) 172.72 172. 72 [facility] Body Mass Index (BMI) 30.7 30.7 [facility] Weight (Calculated Kilograms) 91.51 91.51 [facility] Height (Calculated Centimeters) 172.72 172. 72 [facility] Body Mass Index (BMI) 30.7 30.7 [facility] ID Date Data Source [id number] 06/14/2019 08:58:00 AM EST [facility] Name Value Range Interpretation Code Description Data Source(s) Weight (Calculated Kilograms) 91.51 91.51 [facility] Height (Calculated Centimeters) 172.72 172. 72 [facility] Body Mass Index (BMI) 30.7 30.7 [facility] ID Date Data Source [id number] 07/04/2019 11:06:00 AM EST [facility] Name Value Range Interpretation Code Description Data Source(s) Weight (Calculated Kilograms) 91.51 91.51 [facility] Height (Calculated Centimeters) 172.72 172. 72 [facility] Body Mass Index (BMI) 30.7 30.7 [facility] ID Date Data Source [id number] 05/08/2019 11:25:00 AM EST [facility] Name Value Range Interpretation Code Description Data Source(s) Weight (Calculated Kilograms) 91.51 91.51 [facility] Height (Calculated Centimeters) 172.72 172. 72 [facility] Body Mass Index (BMI) 30.7 30.7 [facility] Weight (Calculated Kilograms) 91.51 91.51 [facility] Height (Calculated Centimeters) 172.72 172. 72 [facility] Body Mass Index (BMI) 30.7 30.7 [facility] Weight (Calculated Kilograms) 91.51 91.51 [facility] Height (Calculated Centimeters) 172.72 172. 72 [facility] Body Mass Index (BMI) 30.7 30.7 [facility] Weight (Calculated Kilograms) 91.[address] [place] [address] Height (Calculated Centimeters) 172.72 172. 72 [facility] Body Mass Index (BMI) 30.7 30.7 [facility] ID Date Data Source [id number] 07/25/2019 10:55:00 AM EST [facility] Name Value Range Interpretation Code Description Data Source(s) Weight Measurement Method 5 5 [facility] Weight (Calculated Kilograms) [address] [place] [address] Weight 3236.8 3236.8 [facility] Temperature Source 7 7 [facility] Temperature 98.0 98.0 [facility] Respiratory Effort 1 1 [facility] Respiratory Rate 18 18 [facility] Pulse Assessment Method 4 4 [facility] Pulse Rate 116 116 [facility] Height (Calculated Centimeters) 172.72 172. 72 [facility] Height 68 68 [facility] Blood Pressure 137/93 137/93 [facility] Body Mass Index (BMI) 30.7 30.7 [facility] Weight Measurement Method 5 5 [facility] Weight (Calculated Kilograms) 91.51 91.51 [facility] Weight 3236.8 3236.8 [facility] Temperature Source 7 7 [facility] Temperature 98.0 98.0 [facility] Respiratory Effort 1 1 [facility] Respiratory Rate 18 18 [facility] Pulse Assessment Method 4 4 [facility] Pulse Rate 116 116 [facility] Height (Calculated Centimeters) 172.72 172. 72 [facility] Height 68 68 [facility] Blood Pressure 137/93 137/93 [facility] Body Mass Index (BMI) 30.7 30.7 [facility] Weight Measurement Method 5 5 [facility] Weight (Calculated Kilograms) 91.51 91.51 [facility] Weight 3236.8 3236.8 [facility] Temperature Source 7 7 [facility] Temperature 98.0 98.0 [facility] Respiratory Effort 1 1 [facility] Respiratory Rate 18 18 [facility] Pulse Assessment Method 4 4 [facility] Pulse Rate 116 116 [facility] Height (Calculated Centimeters) 172.72 172. 72 [facility] Height 68 68 [facility] Blood Pressure 137/93 137/93 [facility] Body Mass Index (BMI) 30.7 30.7 [facility] Weight Measurement Method 5 5 [facility] Weight (Calculated Kilograms) 91.51 91.51 [facility] Weight 3184.0 3184.0 [facility] Temperature Source 7 7 [facility] Temperature 96.9 96.9 [facility] Respiratory Effort 3 3 [facility] Respiratory Rate 16 16 [facility] Pulse Assessment Method 4 4 [facility] Pulse Rate 76 76 [facility] Height (Calculated Centimeters) 172.72 172. 72 [facility] Height 68 68 [facility] Blood Pressure 138/87 138/87 [facility] Body Mass Index (BMI) 30.7 30.7 [facility] Weight Measurement Method 1 1 [facility] Weight (Calculated Kilograms) 91.51 91.51 [facility] Weight 3145.6 3145.6 [facility] Temperature Source 7 7 [facility] Temperature 97.2 97.2 [facility] Respiratory Effort 15 15 [facility] Respiratory Rate 18 18 [facility] Pulse Assessment Method 4 4 [facility] Pulse Rate 87 87 [facility] Height (Calculated Centimeters) 172.72 172. 72 [facility] Height 68 68 [facility] Blood Pressure 124/77 124/77 [facility] Body Mass Index (BMI) 30.7 30.7 [facility] Weight Measurement Method 1 1 [facility] Weight (Calculated Kilograms) 91.51 91.51 [facility] Weight 3145.6 3145.6 [facility] Temperature Source 7 7 [facility] Temperature 98.3 98.3 [facility] Respiratory Effort 1 1 [facility] Respiratory Rate 18 18 [facility] Pulse Assessment Method 4 4 [facility] Pulse Rate 85 85 [facility] Height (Calculated Centimeters) 172.72 172. 72 [facility] Height 68 68 [facility] Blood Pressure 127/76 127/76 [facility] Body Mass Index (BMI) 30.7 30.7 [facility] Weight Measurement Method 5 5 [facility] Weight (Calculated Kilograms) 91.51 91.51 [facility] Weight 3259.314 3259.314 [facility] Temperature Source 7 7 [facility] Temperature 99.1 99.1 [facility] Respiratory Effort 15 15 [facility] Respiratory Rate 18 18 [facility] Pulse Assessment Method 4 4 [facility] Pulse Rate 114 114 [facility] Height (Calculated Centimeters) 172.72 172. 72 [facility] Height 68 68 [facility] Blood Pressure 128/89 128/89 [facility] Body Mass Index (BMI) 30.7 30.7 [facility] Weight Measurement Method 5 5 [facility] Weight (Calculated Kilograms) 92.08 92.08 [facility] Weight 3305.17 3305.17 [facility] Temperature Source 7 7 [facility] Temperature 98.9 98.9 [facility] Respiratory Effort 14 14 [facility] Respiratory Rate 18 18 [facility] Pulse Assessment Method 4 4 [facility] Pulse Rate 94 94 [facility] Height (Calculated Centimeters) 172.72 172. 72 [facility] Height 68 68 [facility] Blood Pressure 115/70 115/70 [facility] Body Mass Index (BMI) 30.9 30.9 [facility] Weight Measurement Method 5 5 [facility] Weight (Calculated Kilograms) 92.08 92.08 [facility] Weight 7118.285 7118.285 [facility] Temperature Source 7 7 [facility] Temperature 97.8 97.8 [facility] Respiratory Rate 18 18 [facility] Pulse Assessment Method 4 4 [facility] Pulse Rate 112 112 [facility] Height (Calculated Centimeters) 172.72 172. 72 [facility] Height 68 68 [facility] Blood Pressure 135/97 135/97 [facility] Body Mass Index (BMI) 30.9 30.9 [facility] Weight Measurement Method 5 5 [facility] Weight (Calculated Kilograms) 92.08 92.08 [facility] Weight 3248 3248 [facility] Temperature Source 7 7 [facility] Temperature 97.8 97.8 [facility] Respiratory Rate 18 18 [facility] Pulse Assessment Method 4 4 [facility] Pulse Rate 105 105 [facility] Height (Calculated Centimeters) 172.72 172. 72 [facility] Height 68 68 [facility] Blood Pressure 139/84 139/84 [facility] Body Mass Index (BMI) 30.9 30.9 [facility] Weight (Calculated Kilograms) 89.81 89.81 [facility] Height (Calculated Centimeters) 172.72 172. 72 [facility] Body Mass Index (BMI) 30.1 30.1 [facility] Weight (Calculated Kilograms) 89.81 89.81 [facility] Height (Calculated Centimeters) 172.72 172. 72 [facility] Body Mass Index (BMI) 30.1 30.1 [facility] Weight (Calculated Kilograms) 89.81 89.81 [facility] Height (Calculated Centimeters) 172.72 172. 72 [facility] Body Mass Index (BMI) 30.1 30.1 [facility] Weight (Calculated Kilograms) 89.81 89.81 [facility] Height (Calculated Centimeters) 172.72 172. 72 [facility] Body Mass Index (BMI) 30.1 30.1 [facility] Hospital ID Date Data Source [id number] 05/16/2019 12:00:00 PM [facility] Hospital Name Value Range Interpretation Code Description Data Source(s) Weight (Calculated Kilograms) 89.81 89.81 [facility] Height (Calculated Centimeters) 172.72 172. 72 [facility] Body Mass Index (BMI) 30.1 30.1 [facility] Weight (Calculated Kilograms) 89.81 89.81 [facility] Height (Calculated Centimeters) 172.72 172. 72 [facility] Body Mass Index (BMI) 30.1 30.1 [facility] Weight (Calculated Kilograms) 89.81 89.81 [facility] Height (Calculated Centimeters) 172.72 172. 72 [facility] Body Mass Index (BMI) 30.1 30.1 [facility] ID Date Data Source [id number] 05/10/2019 09:57:00 AM [facility] Hospital Name Value Range Interpretation Code Description Data Source(s) Weight (Calculated Kilograms) 89.81 89.81 [facility] Height (Calculated Centimeters) 172.72 172. 72 [facility] Body Mass Index (BMI) 30.1 30.1 [facility] Weight (Calculated Kilograms) 89.81 89.81 [facility] Height (Calculated Centimeters) 172.72 172. 72 [facility] Body Mass Index (BMI) 30.1 30.1 [facility] Weight (Calculated Kilograms) 89.81 89.81 [facility] Height (Calculated Centimeters) 172.72 172. 72 [facility] Body Mass Index (BMI) 30.1 30.1 [facility] ID Date Data Source [id number] 05/02/2019 12:00:00 PM [facility] Hospital Name Value Range Interpretation Code Description Data Source(s) Weight (Calculated Kilograms) 89.81 89.81 [facility] Height (Calculated Centimeters) 172.72 172. 72 [facility] Body Mass Index (BMI) 30.1 30.1 [facility] Weight (Calculated Kilograms) 89.81 89.81 [facility] Height (Calculated Centimeters) 172.72 172. 72 [facility] Body Mass Index (BMI) 30.1 30.1 [facility] Weight (Calculated Kilograms) 89.81 89.81 [facility] Height (Calculated Centimeters) 172.72 172. 72 [facility] Body Mass Index (BMI) 30.1 30.1 [facility] Patient Treatment Plan of Care Planned Activity Planned Date Details Description Data Source (s) Methylphenidate Hydrochloride 5 MG Oral Tablet [Ritali n] 06/10/2020 12:00:00 AM EST eCW1 ([facility]) Methylphenidate Hydrochloride 5 MG Oral Tablet [Ritali n] 06/10/2020 12:00:00 AM EST eCW1 ([facility]) Methylphenidate Hydrochloride 5 MG Oral Tablet [Ritali n] 06/10/2020 12:00:00 AM EST eCW1 ([facility]) torsemide 100 MG Oral Tablet 06/09/2020 12:00:00 AM EST [facility] valsartan 160 MG Oral Tablet 06/09/2020 12:00:00 AM EST [facility] valsartan 160 MG Oral Tablet 06/08/2020 12:00:00 AM EST [facility] quetiapine 25 MG Oral Tablet 05/27/2020 12:00:00 AM EST [facility] Methylphenidate Hydrochloride 5 MG Oral Tablet 05/27/2020 12:00:00 AM EST [facility] Methylphenidate Hydrochloride 5 MG Oral Tablet [Ritali n] 05/27/2020 12:00:00 AM EST eCW1 ([facility]) quetiapine 25 MG Oral Tablet [Seroquel] 05/27/2020 12:00:00 AM EST eCW1 ([facility]) Methylphenidate Hydrochloride 5 MG Oral Tablet [Ritali n] 05/27/2020 12:00:00 AM EST eCW1 ([facility]) quetiapine 25 MG Oral Tablet [Seroquel] 05/27/2020 12:00:00 AM EST eCW1 ([facility]) Methazolamide 25 MG Oral Tablet 05/22/2020 12:00:[address] [facility] Amitriptyline Hydrochloride 25 MG Oral Tablet 05/22/2020 12:00:[address] [facility] Furosemide 40 MG Oral Tablet 05/21/2020 12:00:[address] [facility] pregabalin 300 MG Oral Capsule 05/12/2020 12:00:[address] [facility] Ketoconazole 20 MG/ML Medicated Shampoo 05/08/2020 12:00:[address] [facility] Sertraline 25 MG Oral Tablet 05/05/2020 12:00:00 AM EST [facility] topiramate 25 MG Oral Tablet 04/30/2020 12:00:[address] [facility] duloxetine 20 MG Delayed Release Oral Capsule 04/20/2020 12:00:00 A M EST eCW1 ([facility]) duloxetine 20 MG Delayed Release Oral Capsule 04/20/2020 12:00:00 A M EST eCW1 ([facility]) duloxetine 20 MG Delayed Release Oral Capsule 04/20/2020 12:00:00 A M EST eCW1 ([facility]) duloxetine 20 MG Delayed Release Oral Capsule 04/20/2020 12:00:00 A M EST eCW1 ([facility]) duloxetine 20 MG Delayed Release Oral Capsule 04/20/2020 12:00:00 A M EST eCW1 ([facility]) Acetaminophen 325 MG / Oxycodone Hydrochloride 5 MG Or al Tablet 04/10/2020 12:00:00 AM EDT [facility] chlorhexidine gluconate 1.2 MG/ML Mouthwash 04/10/2020 12:00:00 AM [facility] 12 HR Acetazolamide 500 MG Extended Release Oral Capsu le 03/26/2020 12:00:00 AM [facility] sodium chloride (preservative free) 0.9 % flush 3 mL 05:00:00 PM [facility] Ketoconazole 20 MG/ML Medicated Shampoo 03/03/2020 [facility] Tablet 02/05/2020 12:00:00 AM EDT [facility] Prednisone 20 MG Oral Tablet 02/05/2020 [facility] 150 MG Oral Tablet 02/05/2020 12:00:00 AM [facility] Baclofen 10 MG Oral Tablet 01/27/2020 12:00:00 AM [facility] Hydroxyzine Hydrochloride 25 MG Oral Tablet 01/27/2020 [facility] 25 MG Oral Tablet 01/27/2020 12:00:00 AM [facility] duloxetine 60 MG Delayed Release Oral Capsule 01/27/2020 12:00:00 A M [facility] Baclofen 10 MG Oral Tablet 01/27/2020 12:00:00 AM [facility] Budesonide 0.25 MG/ML Inhalant Solution 01/26/2020 12:00:00 AM [facility] Amitriptyline Hydrochloride 25 MG Oral Tablet 01/10/2020 12:00:00 A M [facility] ropinirole 1 MG Oral Tablet 01/03/2020 12:00:00 AM [facility] Sulfamethoxazole 800 MG / Trimethoprim 160 MG Oral Tab let 12/30/2019 12:00:00 AM [facility] Cyclobenzaprine hydrochloride 5 MG Oral Tablet 12/26/2019 12:00:00 AM [facility] Trazodone Hydrochloride 50 MG Oral Tablet 12/26/2019 12:00:00 AM ED [facility] Calcitriol 0.92352 MG Oral Capsule 12/26/2019 12:00:00 AM [facility] Trazodone Hydrochloride 50 MG Oral Tablet 12/26/2019 12:00:00 AM [facility] Sertraline 50 MG Oral Tablet 12/26/2019 12:00:00 AM [facility] 24 HR metoprolol succinate 100 MG Extended Release Ora l Tablet 12/26/2019 12:00:00 AM [facility] Hydrochlorothiazide 25 MG Oral Tablet 12/26/2019 12:00:00 AM [facility] Cyclobenzaprine hydrochloride 5 MG Oral Tablet 12/26/2019 12:00:00 AM [facility] ropinirole 1 MG Oral Tablet 12/26/2019 12:00:00 AM [facility] Baclofen 10 MG Oral Tablet 12/26/2019 12:00:00 AM [facility] Amitriptyline Hydrochloride 25 MG Oral Tablet 12/26/2019 12:00:00 A M [facility] Nystatin 100 UNT/MG Topical Powder 12/03/2019 12:00:00 AM [facility] Nystatin 100 UNT/MG Topical Powder 12/03/2019 12:00:00 AM [facility] Fluocinonide 0.5 MG/ML Topical Cream 11/27/2019 12:00:00 AM [facility] Fluocinonide 0.5 MG/ML Topical Cream 11/27/2019 12:00:00 AM [facility] Furosemide 20 MG Oral Tablet 11/25/2019 12:00:00 AM [facility] Melatonin 10 MG 11/25/2019 12:00:00 AM EDT [facility] ([facility]) Melatonin 10 MG 11/25/2019 12:00:00 AM EDT eC ([facility]) Melatonin 10 MG 11/25/2019 12:00:00 AM EDT eC ([facility]) Melatonin 10 MG 11/25/2019 12:00:00 AM EDT [facility] ([facility]) Melatonin 10 MG 11/25/2019 12:00:00 AM EDT [facility] ([facility]) Melatonin 10 MG 11/25/2019 12:00:00 AM EDT [facility] ([facility]) pregabalin 100 MG Oral Capsule 11/15/2019 12:00:00 AM [facility] pregabalin 100 MG Oral Capsule [Lyrica] 11/15/2019 12:00:00 AM EDT eCW1 ([facility]) May Have - 10/28/2019 12:00:00 AM EDT e CW1 ([facility]) Prednisone 10 MG Oral Tablet 10/25/2019 12:00:00 AM [facility] gabapentin 300 MG Oral Capsule 10/25/2019 12:00:00 AM [facility] duloxetine 30 MG Delayed Release Oral Capsule 09/25/2019 12:00:00 A M [facility] Diazepam 5 MG Oral Tablet 09/12/2019 12:00:00 AM [facility] Fluocinonide 0.5 MG/ML Topical Cream 08/26/2019 12:00:00 AM [place] [id number] ([facility]) Acetaminophen 325 MG / Hydrocodone Bitartrate 5 MG Ora l Tablet 08/23/2019 12:00:00 AM [facility] Acetaminophen 325 MG / Hydrocodone Bitartrate 5 MG Ora l Tablet 08/23/2019 12:00:00 AM [facility] Testosterone Cypionate 200 MG/ML Intramu scular Solution (DEPOTESTOTERONE CYPIONATE) 2019 12:00:00 AM [facility] Budesonide 0.25 MG/ML Inhalant Solution 07/18/2019 12:00:[address] [facility] Ipratropium [place] 0.2 MG/ML Inhalant Solution 05/12/2019 12:00:[address] [facility] Nystatin 100 UNT/MG Topical Powder [Nystop] 04/30/2019 12:00:00 AM [place] [id number] ([facility]) gabapentin 600 MG Oral Tablet 04/18/2019 12:00:[address] [facility] Eszopiclone 2 MG Oral Tablet 02/04/2019 12:00:00 AM [facility] Escitalopram 20 MG Oral Tablet 02/04/2019 12:00:00 AM [facility] Amlodipine 2.5 MG Oral Tablet 02/04/2019 12:00:00 AM [facility] 60 ACTUAT Budesonide 0.16 MG/ACTUAT / fo rmoterol fumarate 0.0045 MG/ACTUAT Metered Dose Inhaler [Symbicort] 11/28/2018 12:00:00 AM EDT [facility] albuterol (PROVENTIL HFA;VENTOLIN HFA) 108 (90 Base) M CG/ACT inhaler 11/18/2018 12:00:00 AM EDT [facility] Amlodipine 10 MG Oral Tablet [facility] pregabalin 100 MG Oral Capsule [facility] Furosemide 20 MG Oral Tablet [facility]
[2020-06-26] MEDS ORDERED: NS 1,000 ML IV ONE ×3 (02:45→11:45)
[2020-06-26 03:24] LABS: BASO % 0.1 % (0.0-1.0); EOS % 0.1 % (0.0-3.0); HEMATOCRIT 39.7 % (42.0-52.0); HEMOGLOBIN 12.2 g/dl (13.5-17.5); LYMPH % 25.9 % (24.0-44.0); MEAN CORPUSCULAR HEMOGLOBIN 27.9 pg (27.0-33.0); MEAN CORPUSCULAR HGB CONC 30.7 g/dl (32.0-36.5); MEAN CORPUSCULAR VOLUME 90.6 fl (80.0-96.0); MONO # 0.5 10^3/uL (0.0-0.8); NEUTROPHILS # 5.2 10^3/uL (1.5-8.5); NEUTROPHILS % 67.4 % (36.0-66.0); PLATELET COUNT, AUTOMATED 192 10^3/uL (150-450); RED BLOOD COUNT 4.38 10^6/uL (4.30-6.10); WHITE BLOOD COUNT 7.7 10^3/uL (4.0-10.0)
--- NOTE | 2020-06-26 04:05 | REPVR ---
PROCEDURE INFORMATION: Exam: XR Chest, 1 View Exam date and time: 06/26/2020 3:12 AM Age: 44 years old Clinical indication: Shortness of breath; Additional info: Altered mental status TECHNIQUE: Imaging protocol: XR of the chest Views: 1 view. COMPARISON: 1. CT Chest without contrast 06/17/2020 7:02 PM 2. CR - Chest, 2 view PA, Lat 06/16/2020 10:03:40 PM FINDINGS: Lungs: Lung volumes are again shallow. There are patchy parenchymal opacities bilaterally, which appear new or worse than on the prior chest x-ray and also seem to have progressed compared to the prior CT scan. Involvement is most pronounced in the right upper lobe and in the left mid and lower lung zones. Pleural space: No pleural effusions or pneumothorax identified. Heart/Mediastinum: The heart is enlarged. Bones/joints: Unremarkable. IMPRESSION: Bilateral patchy parenchymal opacities, nonspecific but probably due to pneumonia, worse than on the prior exams. Electronically signed by: Keiry Dolan On 06/26/2020 04:04:46 AM
[2020-06-26 04:10] LABS: OSMOLALITY SERUM 315 MOSM/KG (275-295)
--- OUTSIDE RECORDS SUMMARY | 2020-06-26 04:10 | CCD ---
Author Author [facility] Organization [facility] Address Unknown Phone Unavailable Support Name Relationship Address Phone DISABLED Next Of Kin Unknown Unavailable ENID SHAW Next Of Kin [address] [place] [id number] [place] Next Of Kin [address] [place] [address] [facility] DEPT CORRECTIONS Next Of Kin [place] [address] [facility] DEPT OF CORRECTIONS Next Of Kin [facility] [place] [address] NONE BETTYE [place] [address] ESMER CARRENO Next Of Kin NA Unknown ANTON CHICO CORRECTIONAL FACILI Next Of Kin [address] [place] [address] JAZMÍN LEBLANC Next Of Kin [address] [place] [address] SHEPARJAVIER, DAVID Next Of Kin [address] [place] [address] BETTYE ESPINAL Next Of Kin [address] [place] [address] SHEPARDSON, BETTYE Next Of Kin [address] [place] [address] SHEPARDSON, BETTYE Next Of Kin [address] [place] [address] SHEPARDSON, DAVID ECON [address] [facility] [place] [address] Unavailable SHEPARJAVIER, BETTYE ECON [address] [place] [address] Unavailable Care Team Providers Care Appeals Examiner Name Role Phone Bong LUCIO Unavailable Unavailable Norm Conrad CARPET SEWING MACHINE OPERATOR-BC Unavailable Unavailable Spurbeck, L Nila CARPET SEWING MACHINE OPERATOR-BC Unavailable Unavailable Spurbeck, L Nila CARPET SEWING MACHINE OPERATOR-BC Unavailable Unavailable Spurbeck, L Nila CARPET SEWING MACHINE OPERATOR-BC Unavailable Unavailable Spurbeck, L Nila CARPET SEWING MACHINE OPERATOR-BC Unavailable Unavailable MANGLA [id number], SHAVON [id number] Unavailable Unavailable MANGLA [id number], SHAVON [id number] Unavailable Unavailable BOAHENE, A JENNY MD Unavailable [...] A JENNY MD Unavailable Unavailable BOAHENE, A JNENY MD Unavailable Unavailable BOAHENE, A JENNY MD [...] RIVERO Unavailable Unavailable Reyes Argueta MD Unavailable [phone] Reyes Argueta MD Unavailable [phone] Reyes Argueta MD Unavailable [phone] Reyes Argueta MD Unavailable [phone] Reyes Argueta MD Unavailable [phone] Reyes Argueta MD Unavailable [phone] Phillip Beltran MD Unavailable Unavailable GRUDOWSKI, P CHRISTOPHER BORING MACHINE OPERATOR HORIZONTAL Unavailable GRUDOWSKI, P CHRISTOPHER BORING MACHINE OPERATOR HORIZONTAL Unavailable GRUDOWSKI, P CHRISTOPHER BORING MACHINE OPERATOR HORIZONTAL Unavailable GRUDOWSKI, P CHRISTOPHER BORING MACHINE OPERATOR HORIZONTAL Unavailable GRUDOWSKI, P CHRISTOPHER BORING MACHINE OPERATOR HORIZONTAL Unavailable GRUDOWSKI, P CHRISTOPHER BORING MACHINE OPERATOR HORIZONTAL Unavailable GRUDOWSKI, P CHRISTOPHER BORING MACHINE OPERATOR HORIZONTAL Unavailable GRUDOWSKI, P CHRISTOPHER BORING MACHINE OPERATOR HORIZONTAL Unavailable GRUDOWSKI, P CHRISTOPHER BORING MACHINE OPERATOR HORIZONTAL Unavailable GRUDOWSKI, P CHRISTOPHER BORING MACHINE OPERATOR HORIZONTAL Unavailable GRUDOWSKI, P CHRISTOPHER BORING MACHINE OPERATOR HORIZONTAL Unavailable GRUDOWSKI, P CHRISTOPHER BORING MACHINE OPERATOR HORIZONTAL Unavailable GRUDOWSKI, P CHRISTOPHER BORING MACHINE OPERATOR HORIZONTAL Unavailable GRUDOWSKI, P CHRISTOPHER BORING MACHINE OPERATOR HORIZONTAL Unavailable GRUDOWSKI, P CHRISTOPHER BORING MACHINE OPERATOR HORIZONTAL Unavailable GRUDOWSKI, P CHRISTOPHER BORING MACHINE OPERATOR HORIZONTAL Unavailable GRUDOWSKI, P CHRISTOPHER BORING MACHINE OPERATOR HORIZONTAL Unavailable GRUDOWSKI, P CHRISTOPHER BORING MACHINE OPERATOR HORIZONTAL Unavailable GRUDOWSKI, P CHRISTOPHER BORING MACHINE OPERATOR HORIZONTAL Unavailable GRUDOWSKI, P CHRISTOPHER BORING MACHINE OPERATOR HORIZONTAL Unavailable GRUDOWSKI, P CHRISTOPHER BORING MACHINE OPERATOR HORIZONTAL Unavailable GRUDOWSKI, P CHRISTOPHER BORING MACHINE OPERATOR HORIZONTAL Unavailable NOSTROM, NOE BORING MACHINE OPERATOR HORIZONTAL Unavailable Unavailable NOSTROM, NOE BORING MACHINE OPERATOR HORIZONTAL Unavailable Unavailable NOSTROM, NOE BORING MACHINE OPERATOR HORIZONTAL Unavailable Unavailable NOSTROM, NOE BORING MACHINE OPERATOR HORIZONTAL Unavailable Unavailable NOSTROM, NOE BORING MACHINE OPERATOR HORIZONTAL Unavailable Unavailable NOSTROM, NOE BORING MACHINE OPERATOR HORIZONTAL Unavailable Unavailable NOSTROM, NOE BORING MACHINE OPERATOR HORIZONTAL Unavailable Unavailable NOSTROM, NOE BORING MACHINE OPERATOR HORIZONTAL Unavailable Unavailable NOSTROM, NOE BORING MACHINE OPERATOR HORIZONTAL Unavailable Unavailable NOSTROM, NOE BORING MACHINE OPERATOR HORIZONTAL Unavailable Unavailable NOSTROM, NOE BORING MACHINE OPERATOR HORIZONTAL Unavailable Unavailable NOSTROM, NOE BORING MACHINE OPERATOR HORIZONTAL Unavailable Unavailable NOSTROM, NOE BORING MACHINE OPERATOR HORIZONTAL Unavailable Unavailable Iggy Huber MD Unavailable Unavailable [...] Unavailable Unavailable Iggy Huber MD Unavailable Unavailable Igyg Huber MD Unavailable Unavailable Iggy Huber MD [...] ANUM Unavailable Unavailable Ramsey IV, Cheng Shaheen CARPET SEWING MACHINE OPERATOR Unavailable Unavailable Ramsey IV, Cheng Jamison CARPET SEWING MACHINE OPERATOR Unavailable Unavailable Ramsey IV, Cheng Jamison CARPET SEWING MACHINE OPERATOR Unavailable Unavailable SPENCERJOSE ANTONIO AVENDAÑO PA Unavailable Unavailable SPENCERJOSE ANTONIO PA Unavailable Unavailable SPENCERJOSE ANTONIO AVENDAÑO PA Unavailable Unavailable JOSE ANTONIO SPENCER PA Unavailable Unavailable ADITI AIKEN, [id number] Bong RODRIGUES MD Unavailable Unavailbong PENNINGTON MD, [id number] Bong RODRIGUES MD Unavailable Unavailbong PENNINGTON MD, [id number] Bong RODRIGUES MD Unavailable Unavailbong PENNINGTON MD, [id number] Bong RODRIGUES MD Unavailable Unavailbong PENNINGTON MD, [id number] Bong RODRIGUES MD Unavailable Unavailbong PENNINGTON MD, [id number] Bong RODRIGUES MD Unavailable Unavailbong PENNINGTON MD, [id number] Bong RODRIGUES MD Unavailable Unavailbong PENNINGTON MD, [id number] Bong RODRIGUES MD Unavailable Unavailbong PENNINGTON MD, [id number] Bong RODRIGUES MD Unavailable Unavailbong PENNINGTON MD, [id number] Bong RODRIGUES MD Unavailable Unavailbong PENNINGTON MD, [id number] Bong RODRIGUES MD Unavailable Unavailbong PENNINGTON MD, [id number] Bong RODRIGUES MD Unavailable Unavailbong PENNINGTON MD, [id number] Bong RODRIGUES MD Unavailable Unavailbong PENNINGTON MD, [id number] Bong RODRIGUES MD Unavailable Unavailbong PENNINGTON MD, [id number] Bong RODRIGUES MD Unavailable Unavailbong PENNINGTON MD, [id number] Bong RODRIGUES MD Unavailable Unavaila ble ADITI AIKEN, [id number] Bong RODRIGUES MD Unavailable Unavaila ble ALIASES [...] Kelsey-Urbina, Phillip Leonardo MD Unavailable Unavailable Kelsey-Urbina, hPillip Leonardo MD Unavailable Unavailable Kelsey-Urbina, Phillip Leonardo [...] P Matias DO Unavailable Unavailable Lyric, Lisbet BORING MACHINE OPERATOR HORIZONTAL Unavailable Unavailable Lyric, Lisbet BORING MACHINE OPERATOR HORIZONTAL Unavailable Unavailable Lyric, Lisbet BORING MACHINE OPERATOR HORIZONTAL Unavailable Unavailable Lyric, Lisbet BORING MACHINE OPERATOR HORIZONTAL Unavailable Unavailable Lyric, Lisbet BORING MACHINE OPERATOR HORIZONTAL Unavailable Unavailable LeykinAndrew DO Unavailable Unavailable Spencer-Trim, J Jose Antonio PA Unavailable Unavailable [place], Dagoberto DO Unavailable Unavailable Melissa, Dagoberto DO Unavailable Unavailable Melissa, Dagoberto DO Unavailable Unavailable Melissa, Dagoberto DO Unavailable Unavailable Melissa, Dagoberto DO Unavailable Unavailable [place], V FCO PA-C Unavailable Unavailable [place], V FCO PA-C Unavailable Unavailable [place], V FCO PA-C Unavailable Unavailable [place], V FCO PA-C Unavailable Unavailable [place], V FCO PA-C Unavailable Unavailable Yudith, V FCO PA-C Unavailable Unavailable David, Bong Rodriguse MD Unavailable Unavailable David, Bong Rodrigues MD [...] Unavailable Gloria Best MD Unavailable Unavailable Gloria Bset MD Unavailable Unavailable Gloria Best MD Unavailable [...] Unavailable SELIN Rodríguez MD Unavailable Unavailable SELIN Rodríguze MD Unavailable Unavailable SELIN Rodríguez MD Unavailable [...] Villatoro MD Unavailable Unavailable Nostrom, R Noe LABORATORY MECHANICAL TECHNICIAN Unavailable Unavailable ADJAPONG, JOHNNA Unavailable Unavailable Christopher P Rehanaowski, P CARPET SEWING MACHINE OPERATOR CARPET SEWING MACHINE OPERATOR Unavailable Unava ilable Cheng Luong MD Unavailable Unavailable Cheng Luong MD Unavailable Unavailable Urbano, Bong Loyola MD Unavailable Unavailable Urbano, Bong Loyola MD Unavailable Unavailable Kike Norton MD Unavailable Unavailable Sridhar Zimmerman MD Unavailable Unavailable Sridhar Zimmerman MD Unavailable Unavailable Sridhar Zimmerman MD Unavailable Unavailable Sridhar Zimmerman MD Unavailable Unavailable SEARS, A NALLELY [...] Unavailable Unavailable Malek, Lebron Dawson MD Unavailable [phone] Malek, Lebron Dawson MD Unavailable [phone] Malek, T Eunice AIKEN Unavailable [phone] Malek, Lebron Dawson MD Unavailable [phone] Malek, T Hamza Unavailable [phone] Malek, T Hamza MD Unavailable [phone] Malek, T Hamza MD Unavailable [phone] Malek, T Hamza Unavailable [phone] Malek, T Hamza MD Unavailable [phone] Malek, T Hamza MD Unavailable [phone] Malek, T Hamza Unavailable [phone] Malek, T Hamza MD Unavailable [phone] Malek, T Hamza MD Unavailable [phone] Gloria Best MD Unavailable Unavailable Gloria Best [...] is protected by Article 27-F of the [place] Public Health law. If you continue you may have access to information: Regarding HIV / AIDS; Provided by facilities licensed or operated by the [place] Office of Mental Health; or Provided by the [place] Office for People With Developmental Disabilities. If such information is present, then the following [place] mandated warning applies: This information has been [...] law may result in a fine or group home sentence or both. A general authorization for the release of medical or other information is NOT sufficient authorization for further disc losure. Allergies and Adverse Reactions Type Description Substance Reaction Status Data Source(s ) Propensity to adverse reactions TOPIRAMATE topiramate Acti ve [facility] Propensity to adverse reactions ACETAZOLAMIDE ER Acetazolamide Er Active [facility] Drug allergy ACETAZOLAMIDE ER ACETAZOLAMIDE ER [facility] plastic Tape plastic Tape plastic Tape Rash Active eCW1 ([facility]) plastic Tape plastic Tape plastic Tape Rash Active eCW1 ([facility]) Adhesive Adhesive Adhesive Unknown Active eCW1 ([facility]) Drug allergy Drug allergy adhesive tape Hives- CAN use paper tape [facility] plastic Tape plastic Tape plastic Tape Rash Active eCW1 ([facility]) Propensity to adverse reactions plastic Tape Propensity to ad verse reactions Rash Active eCW1 ([facility]) Propensity to adverse reactions plastic Tape Propensity to ad verse reactions Rash Active eCW1 ([facility]) Propensity to adverse reactions plastic Tape Propensity to ad verse reactions Rash Active eCW1 ([facility]) Propensity to adverse reactions plastic Tape Propensity to ad verse reactions Rash Active eCW1 ([facility]) Propensity to adverse reactions plastic Tape Propensity to ad verse reactions Rash Active eCW1 ([facility]) Propensity to adverse reactions plastic Tape Propensity to ad verse reactions Rash Active eCW1 ([facility]) Propensity to adverse reactions plastic Tape Propensity to ad verse reactions Rash Active eCW1 ([facility]) Propensity to adverse reactions plastic Tape Propensity to ad verse reactions Rash Active eCW1 ([facility]) Propensity to adverse reactions plastic Tape Propensity to ad verse reactions Rash Active eCW1 ([facility]) Propensity to adverse reactions plastic Tape Propensity to ad verse reactions Rash Active eCW1 ([facility]) Propensity to adverse reactions plastic Tape Propensity to ad verse reactions Rash Active eCW1 ([facility]) Propensity to adverse reactions plastic Tape Propensity to ad verse reactions Rash Active eCW1 ([facility]) Propensity to adverse reactions plastic Tape Propensity to ad verse reactions Rash Active eCW1 ([facility]) Propensity to adverse reactions plastic Tape Propensity to ad verse reactions Rash Active eCW1 ([facility]) Propensity to adverse reactions plastic Tape Propensity to ad verse reactions Rash Active eCW1 ([facility]) Propensity to adverse reactions plastic Tape Propensity to ad verse reactions Rash Active eCW1 ([facility]) Propensity to adverse reactions plastic Tape Propensity to ad verse reactions Rash Active eCW1 ([facility]) Propensity to adverse reactions plastic Tape Propensity to ad verse reactions Rash Active eCW1 ([facility]) Propensity to adverse reactions plastic Tape Propensity to ad verse reactions Rash Active eCW1 ([facility]) Propensity to adverse reactions plastic Tape Propensity to ad verse reactions Rash Active eCW1 ([facility]) Propensity to adverse reactions plastic Tape Propensity to ad verse reactions Rash Active eCW1 ([facility]) Propensity to adverse reactions plastic Tape Propensity to ad verse reactions Rash Active eCW1 ([facility]) Propensity to adverse reactions plastic Tape Propensity to ad verse reactions Rash Active eCW1 ([facility]) Propensity to adverse reactions plastic Tape Propensity to ad verse reactions Rash Active eCW1 ([facility]) Propensity to adverse reactions plastic Tape Propensity to ad verse reactions Rash Active eCW1 ([facility]) Propensity to adverse reactions plastic Tape Propensity to ad verse reactions Rash Active eCW1 ([facility]) Propensity to adverse reactions plastic Tape Propensity to ad verse reactions Rash Active eCW1 ([facility]) Propensity to adverse reactions plastic Tape Propensity to ad verse reactions Rash Active eCW1 ([facility]) plastic Tape plastic Tape plastic Tape Rash Active eCW1 ([facility]) Encounters Encounter Providers Location Date Indications Data Source(s ) Outpatient Referrer: ANUM RANDOLPH 06/22/2020 12:00:00 AM [facility] Unknown [address] [facility] [address] 06/16/2020 12:00:00 AM EST eCW1 ([facility]) [place] [address] [facility] [address] 06/16/2020 12:00:00 AM EST [facility] [place] [address] [facility] [address] 06/10/2020 12:00:00 AM EST [facility]CW1 [facility]) Outpatient Attender: FCO BLACK-SJPWatsonLOIS 12:00:00 AM EST - 06/09/2020 12:25:05 PM [facility] Outpatient Referrer: ANUM RANDOLPH 06/03/2020 12:00:00 AM [facility] Unknown [address] [facility] [address] 05/29/2020 12:00:00 AM EST eCW1 ([facility]) Unknown [address] [facility] [address] 05/26/2020 12:00:00 AM EST eCW1 ([facility]) Outpatient Attender: ANUM RANDOLPHReferrer: ANUM RANDLOPH 0 [id number] 05/22/2020 12:00:00 AM EST - 05/22/2020 04:00:[address] [facility] Outpatient Attender: NALLELY Taylor/Ashwini/Martin/Reindl 05/18/2020 08:30:00 AM EST MEDENT ([facility]) [place] [address] [facility] [address] 05/18/2020 12:00:00 AM EST [facility] [place] [address] [facility] [address] 05/14/2020 12:00:00 AM EST eCW1 ([facility]) [place] [address] [facility] [address] 05/11/2020 12:00:00 AM EST eCW1 ([facility]) Outpatient Attender: Matias Taylor/Ashwini/Martin/Ramirez ndl 05/01/2020 12:23:00 AM EST [facility] ([facility]) [place] [address] [facility] [address] 04/28/2020 12:00:00 AM EST eCW1 [facility] [place] [address] [facility] [address] 04/27/2020 12:00:00 AM EST eCW1 [facility]) Outpatient Attender: NALLELY JULIO DO Aron/[place]/Martin/Reindl 04/22/2020 01:00:00 PM EST [facility] ([facility]) Outpatient [address] [facility] [address] 04/20/2020 12:00:00 AM EST eCW1 ([facility]) Outpatient Attender: NALLELY JULIO DO Aron/[place]/Martin/Reindl 04/14/2020 10:30:00 AM EST [facility] ([facility]) Outpatient Attender: KATHRIN CHURCH MDReferrer: ANUM RANDOLPH 04/13/2020 12:00:00 AM [facility] Outpatient 04/13/2020 12:00:00 AM [facility] Outpatient Referrer: ANUM RANDOLPH 04/13/2020 12:00:00 AM [facility] Unknown [address] [facility] [address] 04/10/2020 12:00:00 AM EDT eCW1 ([facility]) Outpatient Attender: ANUM RANDOLPH 04/10/2020 12:00:00 AM [facility] Unknown [address] [facility] [address] 04/08/2020 12:00:00 AM EDT eCW1 ([facility]) Unknown [address] [facility] [address] 04/07/2020 12:00:00 AM EDT eCW1 ([facility]) Outpatient Attender: NALLELY JULIO DO [place]/Martin/Reindl 04/06/2020 03:00:00 PM EDT [facility] ([facility]) Outpatient Referrer: Gloria Best MD SJMaurice.LOIS-SJP.LOIS 03/12 12:00:00 AM EDT [facility] Outpatient [address] [facility] [address] 03/30/2020 12:00:00 AM EDT eCW1 ([facility]) Unknown [address] [facility] [address] 03/25/2020 12:00:00 AM EDT eCW1 ([facility]) Unknown [address] [facility] [address] 03/24/2020 12:00:00 AM EDT eCW1 ([facility]) Unknown [address] [facility] [address] 03/24/2020 12:00:00 AM EDT eCW1 ([facility]) Outpatient Referrer: Gloria Best MD SJMaurice.LOIS-SJP.LOIS 03/12 12:00:00 AM EDT - 03/23/2020 09:13:12 AM EDT [facility] Outpatient Attender: Gloria Best MD ED-LABPNP 12/2019 02:35:00 PM EDT - 03/18/2020 02:36:00 PM EDT [id number] [facility]9611 I10 R0602 Patient discharged. Outpatient Attender: SHAVON CERVANTES [id number] 7Admitter: SHAVON CERVANTES [id number]: ANUM SchwarzA-01W 03/17/2020 12:00:00 AM EDT - 03/17/2020 01:38:00 PM EDT Other abnormal findings in cerebrospinal fluid [facility] Other abnormal findings in cerebrospinal fluid Patient discharged. [place] [address] [facility] [address] 03/16/2020 12:00:00 AM EDT eCW1 ([facility]) Outpatient Attender: DEFAULT / GENE PAKO / UNKNOWN PROVIDER ALIASES Referrer: ANUM SchwarzA-COVID3 03/13/2020 12:00:00 AM EDT - 03/14/2020 12:00:00 AM EDT [facility] Outpatient Attender: SHADI KHADIJAH 07A-[id number] 03/11/2020 04:42:38 PM ED T [facility] Outpatient Attender: Gloria Best MD SJMaurice.LOIS-SJP.LOIS 02/11 12:00:00 AM EDT - 03/09/2020 12:19:12 PM EDT [facility] Outpatient Attender: Gloria DOSS.LOIS-SJP.LOIS 01/12 12:00:00 AM EDT - 02/10/2020 09:33:09 AM EDT [facility] Outpatient Attender: KATHRIN CHURCH MD [id number] 12:00:00 AM EDT - 02/07/2020 12:21:13 PM EDT Benign intracranial hypertension [facility] Benign intracranial hypertension Outpatient Attender: ANUM RANDOPLH [id number] 02/07/20 20 12:00:00 AM EDT - 02/07/2020 09:27:13 AM EDT Neuralgia and neuritis, unspecified [facility] Neuralgia and neuritis, unspecified Outpatient Attender: HANS RIVERO 02/07/2020 12:00:00 AM EDT [facility] Preadmit Attender: Lilia Hernandez MD CPSCAORT-PRSCNPT 01/24/2020 12 :00:00 AM EDT LEG WEAKNESS [facility] LEG WEAKNESS Outpatient Attender: Irving Sharp/Ashwini/Martin/R eindl 01/16/2020 01:23:00 AM EDT MEDENT ([facility]) Outpatient Attender: [id number] LILIA PENNINGTON MD [id number] 01/03/2020 12:00:00 AM EDT - 01/03/2020 04:06:54 PM EDT Benign intracranial hypertension [facility] Benign intracranial hypertension Outpatient Attender: NALLELY Taylor/Ashwini/Martin/Reindl 12/31/2019 02:45:00 PM EDT [facility] ([facility]) Outpatient [facility] [facility] [address] 12/31/2019 12:00:00 AM EDT eCW1 ([facility]) Unknown [address] [facility] [address] 12/25/2019 12:00:00 AM EDT eCW1 ([facility]) Unknown [address] [facility] [address] 12/24/2019 12:00:00 AM EDT eCW1 ([facility]) Unknown [address] [facility] [address] 12/19/2019 12:00:00 AM EDT eCW1 ([facility]) Unknown [address] [facility] [address] 11/26/2019 12:00:00 AM EDT eCW1 ([facility]) Unknown [address] [facility] [address] 11/25/2019 12:00:00 AM EDT eCW1 ([facility]) Outpatient [address] [facility] [address] 11/25/2019 12:00:00 AM EDT eCW1 ([facility]) Unknown [address] [facility] [address] 11/25/2019 12:00:00 AM EDT eCW1 ([facility]) [facility] GME Resident [address] [place] [address] 11/19/2019 12:00:00 AM EDT eCW1 ([facility]) Outpatient [address] [facility] [address] 11/15/2019 12:00:00 AM EDT eCW1 ([facility]) [facility] Tinnie [address] [facility] [address] 11/08/2019 12:00:00 AM EDT eCW1 ([facility]) Outpatient CPSCAORT-LABEJN 11/01/2019 02:32:00 PM EDT [facility] Outpatient Attender: JENNY CASTILLO MD ED-LABPNP 12:31:00 PM EDT - 11/01/2019 12:32:00 PM EDT R740 [facility] R740 Patient discharged. [facility] [address] [place] [address] 10/28/2019 12:00:00 AM EDT eCW1 ([facility]) Outpatient Attender: NALLELY Taylor/Ashwini/Martin/Reindl 10/07/2019 03:00:00 PM EDT [facility] ([facility]) Outpatient Attender: JOHNNA Pizarro tter: JOHNNA GILReferrer: JOHNNA GIL 10/07/2019 12:00:00 AM EDT - 10/08/2019 12:00:00 AM EDT Inflammatory polyneuropathy, unspecified [facility] Inflammatory polyneuropathy, unspecified Preadmit Attender: MATEO Rodríguez MD [facility] 12:00:00 AM EDT - 09/03/2019 03:24:00 PM EDT [facility] Discharge cancelled. Disregard status an d discharged date. 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 Emergency Attender: CARPET SEWING MACHINE OPERATOR Magdalena Turner FNPAttender: MAGDALENA TURNER NPAttender: Rossana Garnett MDAttender: Rossana Garnett MD [facility] 09/11/2019 04:20:00 PM EDT - 09/11/2019 07:18:00 PM EDT COUGH,SHORTNESS OF BREATH [facility] COUGH,SHORTNESS OF BREATH Patient discharged. Outpatient Attender: NALLELY Taylor/Ashwini/Martin/Reindl 09/03/2019 02:30:00 PM EDT MEDENT ([facility] [address] [facility] [facility] [address] 08/26/2019 12:00:00 AM EDT eCW1 ([facility]) Emergency Attender: Dagoberto Torres DOAttender: Jaime PEÑA CPSCAORT-ED 08/23/2019 10:45:00 AM EDT - 08/23/2019 02:08:00 PM EDT SHORTNESS OF BREATH, HIGH BLOOD PRESSURE [facility] SHORTNESS OF BREATH, HIGH BLOOD PRESSURE Patient discharged. Outpatient Attender: Reyes Argueta MD CPSCAORT-CPSOMP 10:18:00 AM EDT - 08/23/2019 10:19:00 AM EDT [facility] Patient discharged. R Attender: MATEO Rodríguez MD CPSCAORT-PRSLAPT 020 08:49:00 AM EST - 09/10/2019 12:01:00 AM EDT Chronic inflammatory demyelinating polyneuropathy [facility] Chronic inflammatory demyelinating polyn europathy Patient discharged. Outpatient Attender: MATEO Rodríguez MD CPSCAORT-CPSLAPCP 2019 07:40:00 AM EST - 08/12/2019 07:41:00 AM [facility] Patient discharged. Outpatient Attender: Lorraine Loyd MD CPSCAORT-[id number] 07/19 09:14:00 AM EST - 07/19/2019 09:15:00 AM [facility] Patient discharged. Outpatient Attender: MATEO Rodríguez MD CPSCAORT-CPSLAPCP 2019 07:51:00 AM EST - 07/19/2019 07:52:00 AM [facility] Patient discharged. [facility] [address] [place] [address] 07/10/2019 12:00:00 AM EST eCW1 ([facility]) Inpatient Attender: Kevin Mcdonald danette: Milla Clement MDAttender: Milla Clement MDAdmitter: Milla Clement MDConsultant: Kimberley Wright NPConsultant: KIMBERLEY WRIGHTConsultant: Noe Xiong RNPConsultant: NOE XIONG BORING MACHINE OPERATOR HORIZONTAL CPSCAORT-MSU2 07/05/2019 09:07:00 PM EST - 07/08/2019 01:43:00 PM ES T RESPIRATORY FAILURE WITH HYPOXIA, CHEST PAIN [facility] RESPIRATORY FAILURE WITH HYPOXIA, CHEST PAIN Patient discharged. Outpatient Attender: Lorraine Loyd MD CPSCAORT-SDCSDC 020 07:39:00 AM EST - 07/04/2019 01:44:00 PM EST MYOPATHY [facility] MYOPATHY Patient discharged. R Attender: Nila LEE CPSCAORT-PRSLAS T 06/24/2019 01:51:00 PM EST - 07/12/2019 12:01:00 AM EST ASPIRATION [facility] ASPIRATION Patient discharged. R Attender: MATEO Rodríguez MD CPSCAORT-PRSLAPT 020 09:22:00 AM EST - 07/12/2019 12:01:00 AM EST Chronic inflammatory demyelinating polyneuropathy [facility] Chronic inflammatory demyelinating polyn europathy Patient discharged. Outpatient Attender: Lorraine Loyd MD ED-LABPNP 020 03:54:00 PM EST - 06/20/2019 03:55:00 PM EST [address] [facility] G729 Patient discharged. Outpatient Attender: Lorraine Loyd MD CPSCAORT-[id number] 06/19 12:31:00 PM EST - 06/19/2019 12:32:00 PM EST [facility] Patient discharged. Outpatient Attender: Nila Conrad [facility] CPSCAORT-CPSLAP UL 06/18/2019 08:54:00 AM EST - 06/18/2019 08:55:00 AM EST [facility] Patient discharged. Outpatient Attender: [facility] Conrad [facility] CPS[facility]-CPSLAP 06/13/2019 08:43:00 AM EST - 06/13/2019 08:44:00 AM EST [facility] Patient discharged. R Attender: MATEO Rodríguez MD CPSCAORT-PRSLAPT 019 07:27:00 AM EST - 06/11/2019 12:01:00 AM EST Chronic inflammatory demyelinating polyneuropathy [facility] Chronic inflammatory demyelinating polyn europathy Patient discharged. [facility] [address] [facility] [address] 05/30/2019 12:00:00 AM EST eCW1 ([facility]) Outpatient Attender: Reyes Argueta MD [facility] 10:10:00 AM EST - 05/28/2019 10:11:00 AM [facility] [address] [facility] [address] 05/21/2019 12:00:00 AM EST eCW1 ([facility]) [facility] [address] [facility] [address] 05/20/2019 12:00:00 AM EST eCW1 ([facility]) Outpatient Attender: MATEO Rodríguez MD [facility]CPSLAPCP 2018 10:20:00 AM EST - 05/17/2019 10:21:00 AM EST [facility] Patient discharged. Outpatient Attender: Eunice Diaz MD [facility] 05/15 01:39:00 PM EST - 05/15/2019 01:40:00 PM EST [facility] Patient discharged. Inpatient Attender: Kevin Crocker MDAttrenita danette: Kike Norton MDAttender: Kike Norton MDAdmitter: Kike Norton MDConsultant: JOSE ANTONIO SPENCER PAConsultant: Jose Antonio Spencer-Margaret MA CPSCAORT-MSU3 05/07/2019 08:35:00 PM EST - 05/12/2019 05:00:00 PM EST BOOP,ACUTE RESPIRATORY FAILURE [facility] BOOP,ACUTE RESPIRATORY FAILURE Patient discharged. R Attender: MATEO Rodríguez MD CPSCAORT-PRSLAPT 019 09:13:00 AM EST - 05/11/2019 12:01:00 AM EST Chronic inflammatory demyelinating polyneuropathy [facility] Chronic inflammatory demyelinating polyn europathy Patient discharged. Outpatient Attender: Reyes Argueta MD CPSCAORT-CPSOMP 07:17:00 AM EST - 05/01/2019 07:18:00 AM EST [facility] [address] [facility] [address] 04/30/2019 12:00:00 AM EST eCW1 ([facility]) [facility] [address] [facility] [address] 04/30/2019 12:00:00 AM EST eCW1 ([facility]) Outpatient Attender: MATEO Rodríguez MD [facility]-CPSLAPCP 2018 10:42:00 AM EST - 04/23/2019 10:43:00 AM EST [facility] Patient discharged. Emergency Attender: Shaheen Barreto mosies: Andrew Brown DOAttender: Andrew Brown DO [facility]- 04/21/2019 03:39:00 PM EST - 04/21/2019 07:43:00 PM EST POSSIBLE KIDNEY STONE [facility] POSSIBLE KIDNEY STONE Patient discharged. Inpatient Attender: Jorden Beltran MDAttender: Jorden Beltran MDAttender: Nila Luong MDAttender: Nila Luong MDAdmitter: Jorden Urbina MDConsultant: Sridhar Zimmerman MDConsultant: Eunice Diaz MDConsultant: Eunice Diaz MDConsultant: Milla Clement MDConsultant: Milla Clement MD CPSCAORT-MSU2 03/06/2019 11:40:00 AM EDT - 04/03/2019 02:27:00 PM ED T HYPOXIA, RESPIRATORY DISTRESS [facility] HYPOXIA, RESPIRATORY DISTRESS Patient discharged. R Attender: Lisbet Gunter NP CPSCAORT-PRSCNPT 019 01:48:00 PM EDT - 03/11/2019 12:01:00 AM EDT LE WEAKNESS, LEFT SIDE [facility] LE WEAKNESS, LEFT SIDE Patient discharged. R Attender: Lisbet Gunter NP CPSCAORT-PRSCNPT 019 01:23:00 PM EDT - 02/09/2019 12:01:00 AM EDT LE WEAKNESS, LEFT SIDE [facility] LE WEAKNESS, LEFT SIDE Patient discharged. R Attender: Lisbet Gunter BORING MACHINE OPERATOR HORIZONTAL CPSCAORT-PRSCNPT 019 01:17:00 PM EDT - 01/09/2019 12:01:00 AM EDT LE WEAKNESS, LEFT SIDE [facility] LE WEAKNESS, LEFT SIDE Patient discharged. Immunizations Vaccine Date Status Description Data Source(s) influenza, recombinant, quadrIvalent,injectable, prese rvative free 03/30/2020 10:37:00 AM EDT completed eCW1 ([facility]) influenza, recombinant, quadrIvalent,injectable, prese rvative free 03/30/2020 10:37:00 AM EDT completed eCW1 ([facility]) influenza, recombinant, quadrIvalent,injectable, prese rvative free 03/30/2020 10:37:00 AM EDT completed eCW1 ([facility]) influenza, recombinant, quadrIvalent,injectable, prese rvative free 03/30/2020 10:37:00 AM EDT completed eCW1 ([facility]) influenza, recombinant, quadrIvalent,injectable, prese rvative free 03/30/2020 10:37:00 AM EDT completed eCW1 ([facility]) influenza, recombinant, quadrIvalent,injectable, prese rvative free 03/30/2020 10:37:00 AM EDT completed eCW1 ([facility]) influenza, recombinant, quadrIvalent,injectable, prese rvative free 03/30/2020 10:37:00 AM EDT completed eCW1 ([facility]) influenza, recombinant, quadrIvalent,injectable, prese rvative free 03/30/2020 10:37:00 AM EDT completed eCW1 ([facility]) influenza, recombinant, quadrIvalent,injectable, prese rvative free 03/30/2020 10:37:00 AM EDT completed eCW1 ([facility]) influenza, recombinant, quadrIvalent,injectable, prese rvative free 03/30/2020 10:37:00 AM EDT completed eCW1 ([facility]) influenza, recombinant, quadrIvalent,injectable, prese rvative free 03/30/2020 10:37:00 AM EDT completed eCW1 ([facility]) influenza, recombinant, quadrIvalent,injectable, prese rvative free 03/30/2020 10:37:00 AM EDT completed eCW1 ([facility]) influenza, recombinant, quadrIvalent,injectable, prese rvative free 03/30/2020 10:37:00 AM EDT completed eCW1 ([facility]) influenza, recombinant, quadrIvalent,injectable, prese rvative free 03/30/2020 10:37:00 AM EDT completed eCW1 ([facility]) influenza, recombinant, quadrIvalent,injectable, prese rvative free 03/30/2020 10:37:00 AM EDT completed eCW1 ([facility]) influenza, recombinant, quadrIvalent,injectable, prese rvative free 03/30/2020 10:37:00 AM EDT completed eCW1 ([facility]) New in 2011. IIV4 04/30/2019 02:52:00 PM EST completed eCW1 ([facility]) New in 2011. IIV4 04/30/2019 02:52:00 PM EST completed eCW1 ([facility]) New in 2011. IIV4 04/30/2019 02:52:00 PM EST completed eCW1 ([facility]) New in 2011. IIV4 04/30/2019 02:52:00 PM EST completed eCW1 ([facility]) New in 2011. IIV4 04/30/2019 02:52:00 PM EST completed eCW1 ([facility]) New in 2011. IIV4 04/30/2019 02:52:00 PM EST completed eCW1 ([facility]) New in 2011. IIV4 04/30/2019 02:52:00 PM EST completed eCW1 ([facility]) New in 2011. IIV4 04/30/2019 02:52:00 PM EST completed eCW1 ([facility]) New in 2011. IIV4 04/30/2019 02:52:00 PM EST completed eCW1 ([facility]) New in 2011. IIV4 04/30/2019 02:52:00 PM EST completed eCW1 ([facility]) New in 2011. IIV4 04/30/2019 02:52:00 PM EST completed eCW1 ([facility]) New in 2011. IIV4 04/30/2019 02:52:00 PM EST completed eCW1 ([facility]) New in 2011. IIV4 04/30/2019 02:52:00 PM EST completed eCW1 ([facility]) New in 2011. IIV4 04/30/2019 02:52:00 PM EST completed eCW1 ([facility]) New in 2011. IIV4 04/30/2019 02:52:00 PM EST completed eCW1 ([facility]) New in 2011. IIV4 04/30/2019 02:52:00 PM EST completed eCW1 ([facility]) New in 2011. II4 04/30/2019 02:52:00 PM EST completed eCW1 ([facility]) New in 2011. II4 04/30/2019 02:52:00 PM EST completed eCW1 ([facility]) New in 2011. IIV4 04/30/2019 02:52:00 PM EST completed eCW1 ([facility]) New in 2011. IIV4 04/30/2019 02:52:00 PM EST completed eCW1 ([facility]) New in 2011. IIV4 04/30/2019 02:52:00 PM EST completed eCW1 ([facility]) New in 2011. IIV4 04/30/2019 02:52:00 PM EST completed eCW1 ([facility]) New in 2011. IIV4 04/30/2019 02:52:00 PM EST completed eCW1 ([facility]) New in 2011. IIV4 04/30/2019 02:52:00 PM EST completed eCW1 ([facility]) Medications Medication Brand Name Start Date Product Form Dose Route Admi nistrative Instructions Pharmacy Instructions Status Indications Reaction Description Data Source(s) Methylphenidate Hydrochloride 5 MG Oral Tablet [Ritali n] Ritalin 5 MG Ritalin 5 MG 06/10/2020 12:00:00 AM EST active Ritalin 5 MG eCW1 ([facility]) Methylphenidate Hydrochloride 5 MG Oral Tablet [Ritali n] Ritalin 5 MG Ritalin 5 MG 06/10/2020 12:00:00 AM EST active Ritalin 5 MG eCW1 ([facility]) Methylphenidate Hydrochloride 5 MG Oral Tablet [Ritali n] Ritalin 5 MG Ritalin 5 MG 06/10/2020 12:00:00 AM EST active Ritalin 5 MG eCW1 ([facility]) valsartan 160 MG Oral Tablet valsartan (DIOVAN) 160 MG tablet valsartan (DIOVAN) 160 MG tablet 06/09/2020 12:00:00 AM EST 160 mg Oral act vero Take 1 tablet (160 mg total) by mouth daily [facility] torsemide 100 MG Oral Tablet torsemide (DEMADEX) 100 M G tablet torsemide (DEMADEX) 100 MG tablet 06/09/2020 12:00:00 AM EST 50 mg Oral active Take 0.5 tablets (50 mg total) by mouth daily [facility] valsartan 160 MG Oral Tablet valsartan (DIOVAN) 160 MG tablet valsartan (DIOVAN) 160 MG tablet 06/08/2020 12:00:00 AM EST abo rted TAKE ONE TABLET BY MOUTH EVERY DAY [facility] Methylphenidate Hydrochloride 5 MG Oral Tablet methylphenidate (RITALIN) 5 MG tablet methylphenidate (RITALIN) 5 MG tablet 05/27/2020 12:00:00 AM EST 1 {tbl} Oral active Take 1 tablet by mouth d nilay [facility] Methylphenidate Hydrochloride 5 MG Oral Tablet [Ritali n] Ritalin 5 MG Ritalin 5 MG 05/27/2020 12:00:00 AM EST 1.0 {tablet_on_an_empty_stomach} active Ritalin 5 MG eCW1 ([facility]) quetiapine 25 MG Oral Tablet [Seroquel] Seroquel 25 MG Seroq uel 25 MG 05/27/2020 12:00:00 AM EST 1.0 {tablet_at_bedtime} active Seroquel 25 MG eCW1 ([facility]) quetiapine 25 MG Oral Tablet [Seroquel] Seroquel 25 MG Seroq uel 25 MG 05/27/2020 12:00:00 AM EST 1.0 {tablet_at_bedtime} active Seroquel 25 MG eCW1 ([facility]) quetiapine 25 MG Oral Tablet QUEtiapine (SEROQUEL) 25 MG tablet QUEtiapine (SEROQUEL) 25 MG tablet 05/27/2020 12:00:00 AM EST 25 mg Oral active Take 25 mg by mouth [facility] Methylphenidate Hydrochloride 5 MG Oral Tablet [Ritali n] Ritalin 5 MG Ritalin 5 MG 05/27/2020 12:00:00 AM EST 1.0 {tablet_on_an_empty_stomach} active Ritalin 5 MG eCW1 ([facility]) Amitriptyline Hydrochloride 25 MG Oral T ablet Amitriptyline HCl 25 MG Oral Tablet (ELAVIL) Amitriptyline HCl 25 MG Oral Tablet (ELAVIL) 0 12:00:00 AM EST active 1 tab po q hs x 1 week then 2 tabs po q hs there after [facility] Methazolamide 25 MG Oral Tablet methazolAMIDE 25 MG Or al Tablet (NEPTAZANE) methazolAMIDE 25 MG Oral Tablet (NEPTAZANE) 05/22/2020 12:00:00 AM EST 25 mg Oral active Take 1 tablet by marlena th Two Times Daily [facility] Furosemide 40 MG Oral Tablet furosemide (LASIX) 40 MG tablet furosemide (LASIX) 40 MG tablet 05/21/2020 12:00:00 AM EST 60 mg Oral abort ed Take 60 mg by mouth daily [facility] topiramate 50 MG Oral Tablet Topiramate 50 MG Topiramate 50 MG 05/18/2020 12:00:00 AM EST 1.0 {tablet} active To piramate 50 MG eCW1 ([facility]) topiramate 50 MG Oral Tablet Topiramate 50 MG Topiramate 50 MG 05/18/2020 12:00:00 AM EST 1.0 {tablet} active To piramate 50 MG eCW1 ([facility]) topiramate 50 MG Oral Tablet Topiramate 50 MG Topiramate 50 MG 05/18/2020 12:00:00 AM EST 1.0 {tablet} active To piramate 50 MG eCW1 ([facility]) topiramate 50 MG Oral Tablet Topiramate 50 MG Topiramate 50 MG 05/18/2020 12:00:00 AM EST 1.0 {tablet} active To piramate 50 MG eCW1 ([facility]) topiramate 50 MG Oral Tablet Topiramate 50 MG Topiramate 50 MG 05/18/2020 12:00:00 AM EST 1.0 {tablet} active To piramate 50 MG eCW1 ([facility]) topiramate 50 MG Oral Tablet Topiramate 50 MG Topiramate 50 MG 05/18/2020 12:00:00 AM EST 1.0 {tablet} active To piramate 50 MG eCW1 ([facility]) topiramate 50 MG Oral Tablet Topiramate 50 MG Topiramate 50 MG 05/18/2020 12:00:00 AM EST 1.0 {tablet} active To piramate 50 MG eCW1 ([facility]) Cyclobenzaprine hydrochloride 5 MG Oral Tablet Cyclobe nzaprine HCl 5 MG Cyclobenzaprine HCl 5 MG 05/17/2020 12:00:00 AM EST 1.0 {tablet_at_bedtime_as_needed} active Cy clobenzaprine HCl 5 MG eCW1 ([facility]) 24 HR metoprolol succinate 100 MG Extend ed Release Oral Tablet Metoprolol Succinate ER 100 MG Metoprolol Succinate ER 100 MG 05/17/2020 12:00:00 AM EST 1.0 {tablet} active Metoprolol Succinat e ER 100 MG eCW1 ([facility]) Cyclobenzaprine hydrochloride 5 MG Oral Tablet Cyclobe nzaprine HCl 5 MG Cyclobenzaprine HCl 5 MG 05/17/2020 12:00:00 AM EST 1.0 {tablet_at_bedtime_as_needed} active Cy clobenzaprine HCl 5 MG eCW1 ([facility]) pregabalin 300 MG Oral Capsule [Lyrica] Lyrica 300 MG Lyrica 300 MG 05/17/2020 12:00:00 AM EST 1.0 {capsule} active L yrica 300 MG eCW1 ([facility]) Baclofen 10 MG Oral Tablet Baclofen 10 MG 05/17/2020 12:00:00 AM ES T 1.0 {tablet_with_food_or_milk} active Baclo fen 10 MG eCW1 ([facility]) Sulfamethoxazole 800 MG / Trimethoprim 1 60 MG Oral Tablet Sulfamethoxazole- Trimethoprim 800-160 MG Sulfamethoxazole-Trimethoprim 800-160 MG 05/17/2020 12:00:00 AM EST 1.0 {tablet} active Sulfamethoxazole-Trimethoprim 800-160 MG eCW1 ([facility]) Cyclobenzaprine hydrochloride 5 MG Oral Tablet Cyclobe nzaprine HCl 5 MG Cyclobenzaprine HCl 5 MG 05/17/2020 12:00:00 AM EST 1.0 {tablet_at_bedtime_as_needed} active Cy clobenzaprine HCl 5 MG eCW1 ([facility]) Sulfamethoxazole 800 MG / Trimethoprim 1 60 MG Oral Tablet Sulfamethoxazole- Trimethoprim 800-160 MG Sulfamethoxazole-Trimethoprim 800-160 MG 05/17/2020 12:00:00 AM EST 1.0 {tablet} active Sulfamethoxazole-Trimethoprim 800-160 MG eCW1 ([facility]) Melatonin 10 MG Melatonin 10 MG 05/17/2020 12:00:00 AM EST active Melatonin 10 MG eCW1 ([facility]) pregabalin 300 MG Oral Capsule [Lyrica] Lyrica 300 MG Lyrica 300 MG 05/17/2020 12:00:00 AM EST 1.0 {capsule} active L yrica 300 MG eCW1 ([facility]) Sulfamethoxazole 800 MG / Trimethoprim 1 60 MG Oral Tablet Sulfamethoxazole- Trimethoprim 800-160 MG Sulfamethoxazole-Trimethoprim 800-160 MG 05/17/2020 12:00:00 AM EST 1.0 {tablet} active Sulfamethoxazole-Trimethoprim 800-160 MG eCW1 ([facility]) ropinirole 1 MG Oral Tablet Ropinirole HCl 1 MG Ropinirole H Cl 1 MG 05/17/2020 12:00:00 AM EST 1.0 {tablet} active Ro pinirole HCl 1 MG eCW1 ([facility]) Cyclobenzaprine hydrochloride 5 MG Oral Tablet Cyclobe nzaprine HCl 5 MG Cyclobenzaprine HCl 5 MG 05/17/2020 12:00:00 AM EST 1.0 {tablet_at_bedtime_as_needed} active Cy clobenzaprine HCl 5 MG eCW1 ([facility]) Potassium Chloride Izzy ER 10 MEQ Potassium Chloride Izzy ER 10 MEQ 05/17/2020 12:00:00 AM EST active Potassiu m Chloride Izzy ER 10 MEQ eCW1 ([facility]) Melatonin 10 MG Melatonin 10 MG 05/17/2020 12:00:00 AM EST active Melatonin 10 MG eCW1 ([facility]) 24 HR metoprolol succinate 100 MG Extend ed Release Oral Tablet Metoprolol Succinate ER 100 MG Metoprolol Succinate ER 100 MG 05/17/2020 12:00:00 AM EST 1.0 {tablet} active Metoprolol Succinat e ER 100 MG eCW1 ([facility]) 24 HR metoprolol succinate 100 MG Extend ed Release Oral Tablet Metoprolol Succinate ER 100 MG Metoprolol Succinate ER 100 MG 05/17/2020 12:00:00 AM EST 1.0 {tablet} active Metoprolol Succinat e ER 100 MG eCW1 ([facility]) Melatonin 10 MG Melatonin 10 MG 05/17/2020 12:00:00 AM EST active Melatonin 10 MG eCW1 ([facility]) Potassium Chloride Izzy ER 10 MEQ Potassium Chloride Izzy ER 10 MEQ 05/17/2020 12:00:00 AM EST active Potassiu m Chloride Izzy ER 10 MEQ eCW1 ([facility]) Baclofen 10 MG Oral Tablet Baclofen 10 MG 05/17/2020 12:00:00 AM ES T 1.0 {tablet_with_food_or_milk} active Baclo fen 10 MG eCW1 ([facility]) Sulfamethoxazole 800 MG / Trimethoprim 1 60 MG Oral Tablet Sulfamethoxazole- Trimethoprim 800-160 MG Sulfamethoxazole-Trimethoprim 800-160 MG 05/17/2020 12:00:00 AM EST 1.0 {tablet} active Sulfamethoxazole-Trimethoprim 800-160 MG eCW1 ([facility]) Baclofen 10 MG Oral Tablet Baclofen 10 MG 05/17/2020 12:00:00 AM ES T 1.0 {tablet_with_food_or_milk} active Baclo fen 10 MG eCW1 ([facility]) pantoprazole 40 MG Delayed Release Oral Tablet Pantopr azole Sodium 40 MG Pantoprazole Sodium 40 MG 05/17/2020 12:00:00 AM EST 1.0 {tablet} active Pantoprazole Sodium 40 MG eCW1 ( [facility]) pantoprazole 40 MG Delayed Release Oral Tablet Pantopr azole Sodium 40 MG Pantoprazole Sodium 40 MG 05/17/2020 12:00:00 AM EST 1.0 {tablet} active Pantoprazole Sodium 40 MG eCW1 ( [facility]) pregabalin 300 MG Oral Capsule [Lyrica] Lyrica 300 MG Lyrica 300 MG 05/17/2020 12:00:00 AM EST 1.0 {capsule} active L yrica 300 MG eCW1 ([facility]) Valsartan 160 MG UNK 05/17/2020 12:00:00 AM EST suspended Valsartan 160 MG eCW1 ([facility]) Melatonin 10 MG Melatonin 10 MG 05/17/2020 12:00:00 AM EST active Melatonin 10 MG eCW1 ([facility]) Baclofen 10 MG Oral Tablet Baclofen 10 MG 05/17/2020 12:00:00 AM ES T 1.0 {tablet_with_food_or_milk} active Baclo fen 10 MG eCW1 ([facility]) Potassium Chloride Izzy ER 10 MEQ Potassium Chloride Izzy ER 10 MEQ 05/17/2020 12:00:00 AM EST active Potassiu m Chloride Izzy ER 10 MEQ eCW1 ([facility]) Valsartan 160 MG UNK 05/17/2020 12:00:00 AM EST suspended Valsartan 160 MG eCW1 ([facility]) 24 HR metoprolol succinate 100 MG Extend ed Release Oral Tablet Metoprolol Succinate ER 100 MG Metoprolol Succinate ER 100 MG 05/17/2020 12:00:00 AM EST 1.0 {tablet} active Metoprolol Succinat e ER 100 MG eCW1 ([facility]) pregabalin 300 MG Oral Capsule [Lyrica] Lyrica 300 MG Lyrica 300 MG 05/17/2020 12:00:00 AM EST 1.0 {capsule} active L yrica 300 MG eCW1 ([facility]) Valsartan 160 MG UNK 05/17/2020 12:00:00 AM EST suspended Valsartan 160 MG eCW1 ([facility]) ropinirole 1 MG Oral Tablet Ropinirole HCl 1 MG Ropinirole H Cl 1 MG 05/17/2020 12:00:00 AM EST 1.0 {tablet} active Ro pinirole HCl 1 MG eCW1 ([facility]) 24 HR metoprolol succinate 100 MG Extend ed Release Oral Tablet Metoprolol Succinate ER 100 MG Metoprolol Succinate ER 100 MG 05/17/2020 12:00:00 AM EST 1.0 {tablet} active Metoprolol Succinat e ER 100 MG eCW1 ([facility]) Cyclobenzaprine hydrochloride 5 MG Oral Tablet Cyclobe nzaprine HCl 5 MG Cyclobenzaprine HCl 5 MG 05/17/2020 12:00:00 AM EST 1.0 {tablet_at_bedtime_as_needed} active Cy clobenzaprine HCl 5 MG eCW1 ([facility]) Baclofen 10 MG Oral Tablet Baclofen 10 MG 05/17/2020 12:00:00 AM ES T 1.0 {tablet_with_food_or_milk} active Baclo fen 10 MG eCW1 ([facility]) Baclofen 10 MG Oral Tablet Baclofen 10 MG 05/17/2020 12:00:00 AM ES T 1.0 {tablet_with_food_or_milk} active Baclo fen 10 MG eCW1 ([facility]) ropinirole 1 MG Oral Tablet Ropinirole HCl 1 MG Ropinirole H Cl 1 MG 05/17/2020 12:00:00 AM EST 1.0 {tablet} active Ro pinirole HCl 1 MG eCW1 ([facility]) Potassium Chloride Izzy ER 10 MEQ Potassium Chloride Izzy ER 10 MEQ 05/17/2020 12:00:00 AM EST active Potassiu m Chloride Izzy ER 10 MEQ eCW1 ([facility]) Melatonin 10 MG Melatonin 10 MG 05/17/2020 12:00:00 AM EST active Melatonin 10 MG eCW1 ([facility]) Cyclobenzaprine hydrochloride 5 MG Oral Tablet Cyclobe nzaprine HCl 5 MG Cyclobenzaprine HCl 5 MG 05/17/2020 12:00:00 AM EST 1.0 {tablet_at_bedtime_as_needed} active Cy clobenzaprine HCl 5 MG eCW1 ([facility]) Valsartan 160 MG UNK 05/17/2020 12:00:00 AM EST suspended Valsartan 160 MG eCW1 ([facility]) Melatonin 10 MG Melatonin 10 MG 05/17/2020 12:00:00 AM EST active Melatonin 10 MG eCW1 ([facility]) ropinirole 1 MG Oral Tablet Ropinirole HCl 1 MG Ropinirole H Cl 1 MG 05/17/2020 12:00:00 AM EST 1.0 {tablet} active Ro pinirole HCl 1 MG eCW1 ([facility]) Cyclobenzaprine hydrochloride 5 MG Oral Tablet Cyclobe nzaprine HCl 5 MG Cyclobenzaprine HCl 5 MG 05/17/2020 12:00:00 AM EST 1.0 {tablet_at_bedtime_as_needed} active Cy clobenzaprine HCl 5 MG eCW1 ([facility]) Valsartan 160 MG UNK 05/17/2020 12:00:00 AM EST suspended Valsartan 160 MG eCW1 ([facility]) Potassium Chloride Izzy ER 10 MEQ Potassium Chloride Izzy ER 10 MEQ 05/17/2020 12:00:00 AM EST active Potassiu m Chloride Izzy ER 10 MEQ eCW1 ([facility]) Baclofen 10 MG Oral Tablet Baclofen 10 MG 05/17/2020 12:00:00 AM ES T 1.0 {tablet_with_food_or_milk} active Baclo fen 10 MG eCW1 ([facility]) Melatonin 10 MG Melatonin 10 MG 05/17/2020 12:00:00 AM EST active Melatonin 10 MG eCW1 ([facility]) pregabalin 300 MG Oral Capsule [Lyrica] Lyrica 300 MG Lyrica 300 MG 05/17/2020 12:00:00 AM EST 1.0 {capsule} active L yrica 300 MG eCW1 ([facility]) ropinirole 1 MG Oral Tablet Ropinirole HCl 1 MG Ropinirole H Cl 1 MG 05/17/2020 12:00:00 AM EST 1.0 {tablet} active Ro pinirole HCl 1 MG eCW1 ([facility]) Potassium Chloride Izzy ER 10 MEQ Potassium Chloride Izzy ER 10 MEQ 05/17/2020 12:00:00 AM EST active Potassiu m Chloride Izzy ER 10 MEQ eCW1 ([facility]) pantoprazole 40 MG Delayed Release Oral Tablet Pantopr azole Sodium 40 MG Pantoprazole Sodium 40 MG 05/17/2020 12:00:00 AM EST 1.0 {tablet} active Pantoprazole Sodium 40 MG eCW1 ( [facility]) pantoprazole 40 MG Delayed Release Oral Tablet Pantopr azole Sodium 40 MG Pantoprazole Sodium 40 MG 05/17/2020 12:00:00 AM EST 1.0 {tablet} active Pantoprazole Sodium 40 MG eCW1 ( [facility]) ropinirole 1 MG Oral Tablet Ropinirole HCl 1 MG Ropinirole H Cl 1 MG 05/17/2020 12:00:00 AM EST 1.0 {tablet} active Ro pinirole HCl 1 MG eCW1 ([facility]) Potassium Chloride Izzy ER 10 MEQ Potassium Chloride Izzy ER 10 MEQ 05/17/2020 12:00:00 AM EST active Potassiu m Chloride Izzy ER 10 MEQ eCW1 ([facility]) Sulfamethoxazole 800 MG / Trimethoprim 1 60 MG Oral Tablet Sulfamethoxazole- Trimethoprim 800-160 MG Sulfamethoxazole-Trimethoprim 800-160 MG 05/17/2020 12:00:00 AM EST 1.0 {tablet} active Sulfamethoxazole-Trimethoprim 800-160 MG eCW1 ([facility]) Sulfamethoxazole 800 MG / Trimethoprim 1 60 MG Oral Tablet Sulfamethoxazole- Trimethoprim 800-160 MG Sulfamethoxazole-Trimethoprim 800-160 MG 05/17/2020 12:00:00 AM EST 1.0 {tablet} active Sulfamethoxazole-Trimethoprim 800-160 MG eCW1 ([facility]) ropinirole 1 MG Oral Tablet Ropinirole HCl 1 MG Ropinirole H Cl 1 MG 05/17/2020 12:00:00 AM EST 1.0 {tablet} active Ro pinirole HCl 1 MG eCW1 ([facility]) Valsartan 160 MG UNK 05/17/2020 12:00:00 AM EST suspended Valsartan 160 MG eCW1 ([facility]) Sulfamethoxazole 800 MG / Trimethoprim 1 60 MG Oral Tablet Sulfamethoxazole- Trimethoprim 800-160 MG Sulfamethoxazole-Trimethoprim 800-160 MG 05/17/2020 12:00:00 AM EST 1.0 {tablet} active Sulfamethoxazole-Trimethoprim 800-160 MG eCW1 ([facility]) Sertraline 25 MG Oral Tablet Sertraline HCl 25 MG Sertraline HCl 25 MG 05/17/2020 12:00:00 AM EST 1.0 {tablet} active Sertraline HCl 25 MG eCW1 ([facility]) pantoprazole 40 MG Delayed Release Oral Tablet Pantopr azole Sodium 40 MG Pantoprazole Sodium 40 MG 05/17/2020 12:00:00 AM EST 1.0 {tablet} active Pantoprazole Sodium 40 MG eCW1 ( [facility]) Valsartan 160 MG UNK 05/17/2020 12:00:00 AM EST suspended Valsartan 160 MG eCW1 ([facility]) 24 HR metoprolol succinate 100 MG Extend ed Release Oral Tablet Metoprolol Succinate ER 100 MG Metoprolol Succinate ER 100 MG 05/17/2020 12:00:00 AM EST 1.0 {tablet} active Metoprolol Succinat e ER 100 MG eCW1 ([facility]) pregabalin 300 MG Oral Capsule [Lyrica] Lyrica 300 MG Lyrica 300 MG 05/17/2020 12:00:00 AM EST 1.0 {capsule} active L yrica 300 MG eCW1 ([facility]) Sertraline 25 MG Oral Tablet Sertraline HCl 25 MG Sertraline HCl 25 MG 05/17/2020 12:00:00 AM EST 1.0 {tablet} active Sertraline HCl 25 MG eCW1 ([facility]) 24 HR metoprolol succinate 100 MG Extend ed Release Oral Tablet Metoprolol Succinate ER 100 MG Metoprolol Succinate ER 100 MG 05/17/2020 12:00:00 AM EST 1.0 {tablet} active Metoprolol Succinat e ER 100 MG eCW1 ([facility]) pregabalin 300 MG Oral Capsule [Lyrica] Lyrica 300 MG Lyrica 300 MG 05/17/2020 12:00:00 AM EST 1.0 {capsule} active L yrica 300 MG eCW1 ([facility]) pantoprazole 40 MG Delayed Release Oral Tablet Pantopr azole Sodium 40 MG Pantoprazole Sodium 40 MG 05/17/2020 12:00:00 AM EST 1.0 {tablet} active Pantoprazole Sodium 40 MG eCW1 ( [facility]) pantoprazole 40 MG Delayed Release Oral Tablet Pantopr azole Sodium 40 MG Pantoprazole Sodium 40 MG 05/17/2020 12:00:00 AM EST 1.0 {tablet} active Pantoprazole Sodium 40 MG eCW1 ( [facility]) pregabalin 300 MG Oral Capsule pregabalin (LYRICA) 300 MG capsule pregabalin (LYRICA) 300 MG capsule 05/12/2020 12:00:00 AM EST active TAKE ONE CAPSULE BY MOUTH TWICE A DAY MAXIMUM DAILY DOSE TWO CAPSULES [facility] Ketoconazole 20 MG/ML Medicated Shampoo Ketoconazole 2 % External Shampoo (NIZORAL) Ketoconazole 2 % External Shampoo (NIZORAL) 05/08/2020 12:00:00 AM EST active SHAMPOO WITH A SM ALL AMOUNT EVERY 48 HOURS [facility] Sertraline 25 MG Oral Tablet sertraline (ZOLOFT) 25 MG tablet sertraline (ZOLOFT) 25 MG tablet 05/05/2020 12:00:00 AM EST 25 mg Oral aborted Take 25 mg by mouth daily [facility] topiramate 25 MG Oral Tablet Topiramate 25 MG Oral Tab let (Topamax) Topiramate 25 MG Oral Tablet (Topamax) 04/30/2020 12:00:00 AM EST aborted 1 tab po q PM x 1 week, then 1 tab po BID x 1 week then 1 tab am and 2 tabs q PM x 1 week and then 2 BID [facility] duloxetine 20 MG Delayed Release Oral Capsule Duloxeti ne HCl 20 MG Duloxetine HCl 20 MG 04/20/2020 12:00:00 AM EST active Duloxetine HCl 20 MG eCW1 ([facility]) duloxetine 20 MG Delayed Release Oral Capsule Duloxeti ne HCl 20 MG Duloxetine HCl 20 MG 04/20/2020 12:00:00 AM EST active Duloxetine HCl 20 MG eCW1 ([facility]) duloxetine 20 MG Delayed Release Oral Capsule Duloxeti ne HCl 20 MG Duloxetine HCl 20 MG 04/20/2020 12:00:00 AM EST active Duloxetine HCl 20 MG eCW1 ([facility]) duloxetine 20 MG Delayed Release Oral Capsule Duloxeti ne HCl 20 MG Duloxetine HCl 20 MG 04/20/2020 12:00:00 AM EST active Duloxetine HCl 20 MG eCW1 ([facility]) duloxetine 20 MG Delayed Release Oral Capsule Duloxeti ne HCl 20 MG Duloxetine HCl 20 MG 04/20/2020 12:00:00 AM EST active Duloxetine HCl 20 MG eCW1 ([facility]) duloxetine 20 MG Delayed Release Oral Capsule Duloxeti ne HCl 20 MG Duloxetine HCl 20 MG 04/20/2020 12:00:00 AM EST active Duloxetine HCl 20 MG eCW1 ([facility]) duloxetine 20 MG Delayed Release Oral Capsule Duloxeti ne HCl 20 MG Duloxetine HCl 20 MG 04/20/2020 12:00:00 AM EST active Duloxetine HCl 20 MG eCW1 ([facility]) chlorhexidine gluconate 1.2 MG/ML Mouthw pablo Chlorhexidine Gluconate 0.12 % Mouth/Throat Solution (PERIDEX) Chlorhexidine Gluconate 0.12 % Mouth/Thr oat Solution (PERIDEX) 04/10/2020 12:00:00 AM EDT aborted RINSE WITH 1 CAPFUL THREE TIMES A DAY STARTING 04/11/20 [facility] Acetaminophen 325 MG / Oxycodone Hydroch loride 5 MG Oral Tablet oxyCODONE- acetaminophen (PERCOCET) 5-325 MG per tablet oxyCODONE-acetaminophen (PERCOCET) 5-325 MG per tablet 04/10/2020 12:00:00 AM EDT active TAKE ONE TABLET BY MOUTH EVERY 4 TO 6 HOURS NEEDED FOR PAIN MAX 6TABS/DAY [facility] Furosemide 40 MG Oral Tablet Furosemide 04/06/2020 12:00:00 AM EDT ORAL active MEDENT ([facility]ot [facility], ) 12 HR Acetazolamide 500 MG Extended Rele ase Oral Capsule acetaZOLAMIDE ER 500 MG Oral Capsule Extended Release 12 Hour acetaZOLAMIDE ER 500 MG Oral Capsule Extended Release 12 Hour 03/26/2020 12:00:00 AM EDT aborted 1 po q day x 1 week then 1 po BID [facility] 500 mg 03/26/2020 12:00:00 AM EDT capsule, extended relea se 60 TAKE 1 CAPSULE BY MOUTH EVERY DAY FOR 1 WEEK THEN 1 CAPSULE TWICE A DAY THEREAFTER TAKE 1 CAPSULE BY MOUTH EVERY DAY FOR 1 WEEK THEN 1 CAPSULE TWICE A DAY THEREAFTER SOLD: 03/26/2020 [facility] sodium chloride (preservative free) 0.9 % [...] For 30 days, Pre-op [Order 6 End] [facility] Medication administered onsite Acetaminophen 325 MG Oral Tablet acetaminophen (TYLENO L) tablet 650 mg acetaminophen (TYLENOL) tablet 650 mg 03/17/2020 01:00:00 PM EDT 65 0 mg Oral completed 650 mg, Oral, O nce, Mon03/17/20 at 1300, For 1 dose
Maximum daily dose of acetaminophen is 3,000 mg from all sources in 24 hours.
[facility] Medication administered onsite lidocaine (XYLOCAINE) 1 % injection 4960-3795-41 03/17/2020 12:08:22 PM EDT completed Code/Trauma Medicati on, Starting Mon03/17/20 at 1208 [facility] Medication administered onsite Ketoconazole 20 MG/ML Medicated Shampoo ketoconazole ( NIZORAL) 2 % shampoo ketoconazole (NIZORAL) 2 % shampoo 03/03/2020 12:00:00 AM EDT active [facility] Prednisone 20 MG Oral Tablet predniSONE (DELTASONE) 20 MG tablet predniSONE (DELTASONE) 20 MG tablet 02/05/2020 12:00:00 AM EDT 18 mg Oral active Take 18 mg by mouth daily [facility] Fluconazole 150 MG Oral Tablet Fluconazole 150 MG Oral Tablet (DIFLUCAN) Fluconazole 150 MG Oral Tablet (DIFLUCAN) 02/05/2020 12:00:00 AM EDT active TAKE ONE TABLET BY MOUTH WEEKLY DIRECTED [facility] Fluconazole 150 MG Oral Tablet fluconazole (DIFLUCAN) 150 MG tablet fluconazole (DIFLUCAN) 150 MG tablet 02/05/2020 12:00:00 AM EDT active once a week [facility] Baclofen 10 MG Oral Tablet Baclofen 10 MG Oral Tablet (LIORESAL) Baclofen 10 MG Oral Tablet (LIORESAL) 01/27/2020 12:00:00 AM EDT active TAKE ONE TABLET BY MOUTH THREE TIMES A DAY WITH FOOD OR MILK [facility] Hydroxyzine Hydrochloride 25 MG Oral Tab let hydrOXYzine HCl 25 MG Oral Tablet (ATARAX) hydrOXYzine HCl 25 MG Oral Tablet (ATARAX) 01/27/2020 12:00: 00 AM EDT active TAKE ONE TABLET BY MOUTH EVERY SIX HOURS NEEDED [facility] duloxetine 60 MG Delayed Release Oral Ca psule DULoxetine HCl 60 MG Oral Capsule Delayed Release Particles (CYMBALTA) DULoxetine HCl 60 MG Oral Capsule Delaye d Release Particles (CYMBALTA) 01/27/2020 12:00:00 AM EDT 60 mg Oral aborted Take 60 mg by mouth every evenin g [facility] Hydroxyzine Hydrochloride 25 MG Oral Tablet hydrOXYzin e (ATARAX) 25 MG tablet hydrOXYzine (ATARAX) 25 MG tablet 01/27/2020 12:00:00 AM EDT 25 mg Oral active Take 25 mg by mouth [facility] Baclofen 10 MG Oral Tablet baclofen (LIORESAL) 10 MG t ablet baclofen (LIORESAL) 10 MG tablet 01/27/2020 12:00:00 AM EDT 1 {tbl} Oral acti ve Take 1 tablet by mouth 3 (three) times a day [facility] Budesonide 0.25 MG/ML Inhalant Solution Budesonide 0.5 MG/2ML Inhalation Suspension (PULMICORT) Budesonide 0.5 MG/2ML Inhalation Suspension (PULMICORT ) 01/26/2020 12:00:00 AM EDT aborted INHALE ONE VIAL VIA NEBULIZER TWICE A DAY [facility] Amitriptyline Hydrochloride 25 MG Oral T ablet Amitriptyline HCl 25 MG Oral Tablet (ELAVIL) Amitriptyline HCl 25 MG Oral Tablet (ELAVIL) 0 12:00:00 AM EDT 25 mg Oral completed Neuropathic painPrimar y insomnia Take 1 tablet by mouth Twice Daily [facility] Neuropathic pain Primary insomnia ropinirole 1 MG Oral Tablet rOPINIRole HCl 1 MG Oral T ablet (REQUIP) rOPINIRole HCl 1 MG Oral Tablet (REQUIP) 01/03/2020 12:00:00 AM EDT 1 mg Oral active Restless leg syndrome Take 1 tablet by mouth Three times christina ly [facility] Restless leg syndrome Sulfamethoxazole 800 MG / Trimethoprim 1 60 MG Oral Tablet Sulfamethoxazole- Trimethoprim 800-160 MG Oral Tablet (BACTRIM DS) Sulfamethoxazole-Trimethoprim 800-160 MG Oral Tablet (BACTRIM DS) 12/30/2019 12:00:00 AM EDT active TAKE ONE TABLET BY MOUTH 3 TIMES A WEEK [facility] ropinirole 1 MG Oral Tablet rOPINIRole HCl 1 MG Oral T ablet (REQUIP) rOPINIRole HCl 1 MG Oral Tablet (REQUIP) 12/26/2019 12:00:00 AM EDT 1 mg Ora l aborted Take 1 mg by mouth daily [facility] Trazodone Hydrochloride 50 MG Oral Table t traZODone HCl 50 MG Oral Tablet (DESYREL) traZODone HCl 50 MG Oral Tablet (DESYREL) 12/26/2019 12:00:0 0 AM EDT active TAKE 1 1/2 TAB LETS BY MOUTH DAILY AT BEDTIME [facility] Sertraline 50 MG Oral Tablet Sertraline HCl 50 MG Oral Tablet (ZOLOFT) Sertraline HCl 50 MG Oral Tablet (ZOLOFT) 12/26/2019 12:00:00 AM EDT 75 mg Oral active Take 75 mg by mouth daily [facility] Hydrochlorothiazide 25 MG Oral Tablet hy droCHLOROthiazide 25 MG Oral Tablet (HYDRODIURIL) hydroCHLOROthiazide 25 MG Oral Tablet (HYDRODIURIL) 12:00:00 AM EDT 25 mg Oral active Take 25 mg by mouth daily [facility] 24 HR metoprolol succinate 100 MG Extend ed Release Oral Tablet Metoprolol Succinate ER 100 MG Oral Tablet Extended Release 24 Hour (TOPROL-XL) Metoprolol Succinate ER 100 MG Oral Tablet Extended Release 24 Hour (TOPROL-XL) 12/26/2019 12:00:00 AM EDT 100 mg Oral active Take 100 mg by mouth daily [facility] Calcitriol 0.71759 MG Oral Capsule Calcitriol 0.25 MCG Oral Capsule (ROCALTROL) Calcitriol 0.25 MCG Oral Capsule (ROCALTROL) 12/26/2019 12:00:00 AM EDT active TAKE ONE CAPSULE BY MOUTH ON CE A DAY [facility] Baclofen 10 MG Oral Tablet Baclofen 10 MG Oral Tablet (LIORESAL) Baclofen 10 MG Oral Tablet (LIORESAL) 12/26/2019 12:00:00 AM EDT aborted TAKE ONE TABLET BY MOUTH THREE TIMES A DAY WITH FOOD OR MILK [facility] Cyclobenzaprine hydrochloride 5 MG Oral Tablet Cyclobenzaprine HCl 5 MG Oral Tablet (FLEXERIL) Cyclobenzaprine HCl 5 MG Oral Tablet (FLEXERIL) 2019 12:00:00 AM EDT 5 mg Oral active Take 5 m g by mouth nightly as needed [facility] Amitriptyline Hydrochloride 25 MG Oral T ablet Amitriptyline HCl 25 MG Oral Tablet (ELAVIL) Amitriptyline HCl 25 MG Oral Tablet (ELAVIL) 0 12:00:00 AM EDT 25 mg Oral aborted Take 25 mg by mo uth Two Times Daily [facility] Trazodone Hydrochloride 50 MG Oral Tablet traZODone (D ESYREL) 50 MG tablet traZODone (DESYREL) 50 MG tablet 12/26/2019 12:00:00 AM EDT aborted TAKE 1 1/2 TABLETS BY MOUTH DAILY AT BEDTIME [facility] Cyclobenzaprine hydrochloride 5 MG Oral Tablet cyclobenzaprine (FLEXERIL) 5 MG tablet cyclobenzaprine (FLEXERIL) 5 MG tablet 12/26/2019 12:00:00 AM EDT 5 mg Oral active Take 5 mg by mouth a s needed [facility] Nystatin 100 UNT/MG Topical Powder Nysta tin [id number] UNIT/GM External Powder (MYCOSTATIN) Nystatin [id number] UNIT/GM External Powder (MYCOSTATIN) 0 12/03/2019 12:00:00 AM EDT active APPLY TO AFFECTED AREA S TWO TIMES A DAY FOR 10 DAYS [facility] Nystatin 100 UNT/MG Topical Powder nystatin (MYCOSTATI N) powder nystatin (MYCOSTATIN) powder 12/03/2019 12:00:00 AM EDT act vero as needed [facility] Fluocinonide 0.5 MG/ML Topical Cream Fluocinonide 0.05 % External Cream (LIDEX) Fluocinonide 0.05 % External Cream (LIDEX) 11/27/2019 12:00:00 AM EDT active APPLY TO AFFECTED AREA S TWO TI MES A DAY [facility] Fluocinonide 0.5 MG/ML Topical Cream fluocinonide (LID EX) 0.05 % cream fluocinonide (LIDEX) 0.05 % cream 11/27/2019 12:00:00 AM EDT active APPLY TO AFFECTED AREA S TWO TIMES A DAY [facility] Melatonin 10 MG Melatonin 10 MG 11/25/2019 12:00:00 AM EDT active Melatonin 10 MG eCW1 ([facility]) Melatonin 10 MG Melatonin 10 MG 11/25/2019 12:00:00 AM EDT active Melatonin 10 MG eCW1 ([facility]) Furosemide 20 MG Oral Tablet Furosemide 20 MG Oral Tab let (LASIX) Furosemide 20 MG Oral Tablet (LASIX) 11/25/2019 12:00:00 AM EDT 20 mg Oral active Take 20 mg by mouth daily [facility] Melatonin 10 MG Melatonin 10 MG 11/25/2019 12:00:00 AM EDT active Melatonin 10 MG eCW1 ([facility]) Melatonin 10 MG Melatonin 10 MG 11/25/2019 12:00:00 AM EDT active Melatonin 10 MG eCW1 ([facility]) Melatonin 10 MG Melatonin 10 MG 11/25/2019 12:00:00 AM EDT active Melatonin 10 MG eCW1 ([facility]) Melatonin 10 MG Melatonin 10 MG 11/25/2019 12:00:00 AM EDT active Melatonin 10 MG eCW1 ([facility]) pregabalin 100 MG Oral Capsule Pregabalin 100 MG Oral Capsule (LYRICA) Pregabalin 100 MG Oral Capsule (LYRICA) 11/15/2019 12:00:00 AM EDT active TAKE 1 CAPSULE BY MOUTH THREE TI MES DAILY MAX 3 CAPS/DAY [facility] pregabalin 100 MG Oral Capsule [Lyrica] Lyrica 100 MG Lyrica 100 MG 11/15/2019 12:00:00 AM EDT 1.0 {capsule} active L yrica 100 MG eCW1 ([facility]) May Have - UNK 10/28/2019 12:00:00 AM EDT active May Have - eCW1 ([facility]) May Have - UNK 10/28/2019 12:00:00 AM EDT active May Have - eCW1 ([facility]) May Have - UNK 10/28/2019 12:00:00 AM EDT active May Have - eCW1 ([facility]) May Have - UNK 10/28/2019 12:00:00 AM EDT active May Have - eCW1 ([facility]) May Have - UNK 10/28/2019 12:00:00 AM EDT active May Have - eCW1 ([facility]) May Have - UNK 10/28/2019 12:00:00 AM EDT active May Have - eCW1 ([facility]) May Have - UNK 10/28/2019 12:00:00 AM EDT active May Have - eCW1 ([facility]) May Have - UNK 10/28/2019 12:00:00 AM EDT active May Have - eCW1 ([facility]) May Have - UNK 10/28/2019 12:00:00 AM EDT active May Have - eCW1 ([facility]) May Have - UNK 10/28/2019 12:00:00 AM EDT active May Have - eCW1 ([facility]) May Have - UNK 10/28/2019 12:00:00 AM EDT active May Have - eCW1 ([facility]) May Have - UNK 10/28/2019 12:00:00 AM EDT active May Have - eCW1 ([facility]) May Have - UNK 10/28/2019 12:00:00 AM EDT active May Have - eCW1 ([facility]) May Have - UNK 10/28/2019 12:00:00 AM EDT active May Have - eCW1 ([facility]) May Have - UNK 10/28/2019 12:00:00 AM EDT active May Have - eCW1 ([facility]) May Have - UNK 10/28/2019 12:00:00 AM EDT active May Have - eCW1 ([facility]) May Have - UNK 10/28/2019 12:00:00 AM EDT active May Have - eCW1 ([facility]) May Have - UNK 10/28/2019 12:00:00 AM EDT active May Have - eCW1 ([facility]) May Have - UNK 10/28/2019 12:00:00 AM EDT active May Have - eCW1 ([facility]) May Have - UNK 10/28/2019 12:00:00 AM EDT active May Have - eCW1 ([facility]) May Have - UNK 10/28/2019 12:00:00 AM EDT active May Have - eCW1 ([facility]) May Have - UNK 10/28/2019 12:00:00 AM EDT active May Have - eCW1 ([facility]) May Have - UNK 10/28/2019 12:00:00 AM EDT active May Have - eCW1 ([facility]) May Have - UNK 10/28/2019 12:00:00 AM EDT active May Have - eCW1 ([facility]) May Have - UNK 10/28/2019 12:00:00 AM EDT active May Have - eCW1 ([facility]) May Have - UNK 10/28/2019 12:00:00 AM EDT active May Have - eCW1 ([facility]) May Have - UNK 10/28/2019 12:00:00 AM EDT active portable oxygen eCW1 ([facility]) May Have - UNK 10/28/2019 12:00:00 AM EDT active May Have - eCW1 ([facility]) May Have - UNK 10/28/2019 12:00:00 AM EDT active May Have - eCW1 ([facility]) Prednisone 10 MG Oral Tablet predniSONE (DELTASONE) 10 MG tablet predniSONE (DELTASONE) 10 MG tablet 10/25/2019 12:00:00 AM EDT 20 mg Oral active Take 20 mg by mouth daily [facility] gabapentin 300 MG Oral Capsule Gabapentin 300 MG Oral Capsule (NEURONTIN) Gabapentin 300 MG Oral Capsule (NEURONTIN) 10/25/2019 12:00:00 AM EDT aborted TAKE 2 CAPSULES BY M OUTH AT 4PM AND 9PM ON 10/25 2 CAPS THREE TIMES A DAY ON 10/26 11/01 1 THREE TIMES A DAY ON 11/02 11/08 1 TWICE A DAY 11/09 [facility] duloxetine 30 MG Delayed Release Oral Ca psule DULoxetine HCl 30 MG Oral Capsule Delayed Release Particles (CYMBALTA) DULoxetine HCl 30 MG Oral Capsule Delaye d Release Particles (CYMBALTA) 09/25/2019 12:00:00 AM EDT 60 mg Oral aborted Take 60 mg by mouth daily [facility] Diazepam 5 MG Oral Tablet Diazepam 09/12/2019 12:00:00 AM EDT active MEDENT ([facility], ) Diazepam 5 MG Oral Tablet diazePAM 5 MG Oral Tablet (V ALIUM) diazePAM 5 MG Oral Tablet (VALIUM) 09/12/2019 12:00:00 AM EDT ab orted TAKE ONE TABLET BY MOUTH 30 TO 60 MINUTES PRIOR TO MRI MAX 1 TAB/DAY [facility] Fluocinonide 0.5 MG/ML Topical Cream Fluocinonide 0.05 % Flu ocinonide 0.05 % 08/26/2019 12:00:00 AM EDT active 1 application eCW1 ([facility]) Fluocinonide 0.5 MG/ML Topical Cream Fluocinonide 0.05 % Flu ocinonide 0.05 % 08/26/2019 12:00:00 AM EDT 1.0 {application} act vero Fluocinonide 0.05 % eCW1 ([facility]) Fluocinonide 0.5 MG/ML Topical Cream Fluocinonide 0.05 % Flu ocinonide 0.05 % 08/26/2019 12:00:00 AM EDT active 1 application eCW1 ([facility]) Acetaminophen 325 MG / Hydrocodone Chas trate [...] MOUTH EVERY 6 HOURS NEEDED MAX 4/DAY [facility] Testosterone Cypionate 200 MG/ML Intramu scular Solution (DEPOTESTOTERONE CYPIONATE) [id number] 2019 12:00:00 AM EST aborted INJECT 1 ML INTRAMUSCULARLY EVERY 2 WEEKS MAX 1ML/14DAYS [facility] Budesonide 0.25 MG/ML Inhalant Solution Budesonide 0.5 MG/2ML Inhalation Suspension (PULMICORT) Budesonide 0.5 MG/2ML Inhalation Suspension (PULMICORT ) 07/18/2019 12:00:00 AM EST aborted INHALE 1 VIAL VIA NEBULIZER TWICE A DAY [facility] Ipratropium [place] 0.2 MG/ML Inhalant S olution Ipratropium [place] 0.02 % Inhalation Solution (ATROVENT) Ipratropium [place] 0.02 % Inhalation So lution (ATROVENT) 05/12/2019 12:00:00 AM EST aborted USE ONE HALF VIAL VIA NEBULIZER THREE TIMES A DAY [facility] Nystatin 100 UNT/MG Topical Powder [Nystop] Nystop 100 000 UNIT/GM Nystop 201437 UNIT/GM 04/30/2019 12:00:00 AM EST active 1 application eCW1 ([facility]) gabapentin 600 MG Oral Tablet Gabapentin 600 MG Oral T ablet (NEURONTIN) Gabapentin 600 MG Oral Tablet (NEURONTIN) 04/18/2019 12:00:00 AM EST aborted TAKE 1 TABLET BY MARLENA TH THREE TIMES DAILY AT 6AM 3PM AND AT BEDTIME [facility] Eszopiclone 2 MG Oral Tablet Eszopiclone 2 MG Oral Tab let (LUNESTA) Eszopiclone 2 MG Oral Tablet (LUNESTA) 02/04/2019 12:00:00 AM EDT aborted TAKE ONE TABLET BY MOUTH BEFORE BEDTIME MAXIMUM DAILY DOSE ONE TABLET [facility] Amlodipine 2.5 MG Oral Tablet amLODIPine Besylate 2.5 MG Oral Tablet (NORVASC) amLODIPine Besylate 2.5 MG Oral Tablet (NORVASC) 02/04/2019 12:00:00 AM EDT 2.5 mg Oral aborted Take 2.5 mg by mouth [facility] Escitalopram 20 MG Oral Tablet Escitalopram Oxalate 20 MG Oral Tablet (LEXAPRO) Escitalopram Oxalate 20 MG Oral Tablet (LEXAPRO) 02/04/2019 12:00:00 AM EDT 20 mg Oral aborted Take 20 mg by mouth [facility] 60 ACTUAT Budesonide 0.16 MG/ACTUAT / fo rmoterol fumarate 0.0045 MG/ACTUAT Metered Dose Inhaler [Symbicort] SYMBICORT 160-4.5 MCG/ACT inhaler SYMBICORT 160-4.5 MCG/ACT inhaler 11/28/2018 12:00:00 AM EDT 2 {puff} Inhalatio n aborted Inhale 2 puffs into the lungs Tw o Times Daily [facility] albuterol (PROVENTIL HFA;VENTOLIN HFA) 108 (90 Base) M CG/ACT inhaler 0850-3203-47 11/18/2018 12:00:00 AM EDT 2 {puff} Inhalation aborted Inhale 2 puffs as needed [facility] Amlodipine 10 MG Oral Tablet amLODIPine (NORVASC) 10 M G tablet amLODIPine (NORVASC) 10 MG tablet 25 mg Oral aborted Take 25 mg by mouth 2 (two) times a day [facility] Furosemide 20 MG Oral Tablet furosemide (LASIX) 20 MG tablet furosemide (LASIX) 20 MG tablet 20 mg Oral aborted Take 20 mg by mouth daily [facility] pregabalin 100 MG Oral Capsule pregabalin (LYRICA) 100 MG capsule pregabalin (LYRICA) 100 MG capsule 100 mg Oral aborted Take 100 mg by mouth 3 (three) times a day [facility] Insurance Providers Payer name Policy type / Coverage type Policy ID Covered republican ID Covered republican's relationship to bang Policy Bang Plan Information ARY [id number] SP [id number] [place] [id number] S [id number] ARY EXCHANGE [id number] ARY EXCHANGE [id number] Ren[place] [id number] ARY EXCHANGE U [id number] Self [id number] BCBS EMPIRE [place]ER[place] DIV [id number] SP [id number] [facility] [id number] SP [id number] [place] [id number] SP [id number] BCBS EMPIRE GERBER DIV [id number] SP [id number] [facility] [id number] SP [id number] WORKERS COMPENSATION GENERIC W [id number] Empl [id number] [facility] INS [facility] W [id number] Empl [id number] ARY CARE [place] [id number] S [id number] [place] [id number] S [id number] [facility] O [id number] S [id number] ARY 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 [id number] EMPIRE PLAN [facility] U [id number] Self [id number] BCBS EMPIRE GERBER DIV [id number] SP [id number] [employer] [place] EMPIRE [id number] 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 [id number] BCBS EMPIRE GERBER DIV [id number] SP [id number] [employer] [place] EMPIRE [id number] 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 [id number] BCBS EMPIRE GERBER DIV [id number] SP [id number] [facility] INS [facility] W [id number] Empl [id number] BCBS EMPIRE GERBER DIV [id number] SP [id number] PREFERRED INSURANCE E [id number] Self [id number] [facility] [id number] S [id number] BLUE CROSS [id number] S [id number] [facility] [id number] S [id number] EXCELLUS BCBS [id number] [place] YLS [id number] EXCELLUS BCBS PI PI EXCELLUS BCBS [id number] Renata YLS [id number] [facility] INS FUND W [id number] Empl [id number] STATE INS [facility] W [id number] Empl [id number] EMPIRE BLUE CROSS -O/P [id number] BLUE CROSS [id number] S [id number] AUTO NO FAULT [id number] S [id number] AUTO NO FAULT [id number] S [id number] BLUE CROSS [id number] S [id number] Problems, Conditions, and Diagnoses Code Display Name Description Problem Type Effective Dates Data Source(s) Z99.81 [id number] Requires continuous at home supplemental oxygen Problem 06/10/2020 12:00:00 AM EST eCW1 ([facility]) F33.1 [id number] 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 Problem 05/27/2020 12:00:00 AM EST eCW1 ([facility]) [id number] Hypoxia Hypoxia Problem 05/27/2020 12:00:00 AM ES T MEDENT ([facility], ) 781010153 Lung function testing abnormal Lung function testing a bnormal Problem 05/27/2020 12:00:00 AM EST MEDENT ([facility], ) 977505203 Lung function testing abnormal Lung function testing a bnormal Problem 05/18/2020 12:00:00 AM EST MEDENT ([facility], ) 839903861 Hypoxia Hypoxia Problem 05/18/2020 12:00:00 AM ES T MEDENT ([facility], ) 107991838 Hypoxia Hypoxia Problem 04/22/2020 12:00:00 AM ES T MEDENT ([facility], ) 244474636 Lung function testing abnormal Lung function testing a bnormal Problem 04/22/2020 12:00:00 AM EST MEDENT ([facility], ) F32.9 47826752 Depression, unspecified depression type P roblem 04/20/2020 12:00:00 AM EST eCW1 ([facility]) 612081762 Hypoxia Hypoxia Problem 04/14/2020 12:00:00 AM ES T MEDENT ([facility], ) 092212088 Lung function testing abnormal Lung function testing a bnormal Problem 04/14/2020 12:00:00 AM EST MEDENT ([facility], ) 6815683 Cardiomegaly Cardiomegaly Problem 04/06/2020 12:00:00 A M EDT MEDENT ([facility], ) 124611697 Hypoxia Hypoxia Problem 04/06/2020 12:00:00 AM ED T MEDENT ([facility], ) 703157272 Lung function testing abnormal Lung function testing a bnormal Problem 04/06/2020 12:00:00 AM EDT MEDENT ([facility], ) G25.2 12906006 Intention tremor Problem 03/30/2020 12:00:00 AM EDT eCW1 ([facility]) J96.11 Chronic respiratory failure with hypoxia Chronic respiratory failure with hypoxia 04665095 02/09/2020 12:00:00 AM EDT [facility] R09.02 Severe hypoxemia Severe hypoxemia 63764585 02/09/2020 12 :00:00 AM EDT [facility] 697702436 Hypoxia Hypoxia Problem 12/31/2019 12:00:00 AM ED T MEDENT ([facility], ) 118710610 Lung function testing abnormal Lung function testing a bnormal Problem 12/31/2019 12:00:00 AM EDT MEDENT ([facility], ) J98.11 70894429 Bilateral atelectasis Problem 10/28/2019 12: 00:00 AM EDT eCW1 ([facility]) J98.11 97931655 Bilateral atelectasis Problem 10/28/2019 12: 00:00 AM EDT eCW1 ([facility]) 048591451 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 Problem 09/11 12:00:00 AM EDT MEDENT ([facility], ) 809711844 Lung function testing abnormal Lung function testing a bnormal Problem 10/07/2019 12:00:00 AM EDT MEDENT ([facility], ) 97528318 Diabetes mellitus Diabetes mellitus Problem 09/11/2019 12:00:00 AM EDT MEDENT ([facility], ) 83376430 Numbness Numbness Problem 09/11/2019 12:00:00 AM ED T MEDENT ([facility], ) 685326598 Chronic inflammatory demyelinating polyn europathy Chronic inflammatory demyelinating polyneuropathy Problem 09/11/2019 12:00:00 AM EDT MED ENT ([facility], ) 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 Proble m 09/11/2019 12:00:00 AM EDT MEDENT ([facility], ) 18958251 Disorder of diaphragm Disorder of diaphragm Problem 09/03/2019 12:00:00 AM EDT MEDENT ([facility], ) 788751106 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 Problem 08/11 12:00:00 AM EDT MEDENT ([facility], ) 84940870 Obstructive sleep apnea syndrome Obstructive sle ep apnea syndrome Problem 09/03/2019 12:00:00 AM EDT MEDENT ([facility]) 2534141 Tachycardia Tachycardia Problem 09/03/2019 12:00:00 AM EDT MEDENT ([facility], ) L30.9 179565455 Dermatitis Problem 08/26/2019 12:00:00 AM ED T eCW1 ([facility]) L30.9 502199399 Dermatitis Problem 08/26/2019 12:00:00 AM ED T eCW1 ([facility]) G47.33 44932578 Obstructive sleep apnea syndrome Problem 05/30/2019 12:00:00 AM EST eCW1 ([facility]) G47.33 08632449 Obstructive sleep apnea syndrome Problem 05/30/2019 12:00:00 AM EST eCW1 ([facility]) G61.81 176025674 CIDP (chronic inflammatory demye linating polyneuropathy) Problem 04/30/2019 12:00:00 AM EST eCW1 ([facility]) Z79.52 [id number] Current chronic use of systemic steroi ds Problem 04/30/2019 12:00:00 AM EST eCW1 ([facility]) B37.2 37745199 Mucocutaneous candidiasis Problem 04/30/2019 12:00:00 AM EST eCW1 ([facility]) Z86.14 819992128 Hx MRSA infection Problem 04/30/2019 12:00:0 0 AM EST eCW1 ([facility]) I10 05901671 Essential hypertension Problem 04/30/2019 12 :00:00 AM EST eCW1 ([facility]) J12.3 547801135 Human metapneumovirus (hMPV) pneumonia Pr oblem 04/30/2019 12:00:00 AM EST eCW1 ([facility]) B37.2 60303355 Mucocutaneous candidiasis Problem 04/30/2019 12:00:00 AM EST eCW1 ([facility]) Z86.14 488852195 Hx MRSA infection Problem 04/30/2019 12:00:0 0 AM EST eCW1 ([facility]) Z79.52 [id number] Current chronic use of systemic steroi ds Problem 04/30/2019 12:00:00 AM EST eCW1 ([facility]) G61.81 624863447 CIDP (chronic inflammatory demye linating polyneuropathy) Problem 04/30/2019 12:00:00 AM EST eCW1 ([facility]) J12.3 509898476 Human metapneumovirus (hMPV) pneumonia Pr oblem 04/30/2019 12:00:00 AM EST eCW1 ([facility]) I10 01337759 Essential hypertension Problem 04/30/2019 12 :00:00 AM EST eCW1 ([facility]) J96.11 Chronic respiratory failure with hypoxia Chronic respiratory failure with hypoxia Diagnosis 06/09/2020 10:54:04 AM EST [facility] I10 Essential (primary) hypertension Essential (primary) h ypertension Diagnosis 03/23/2020 08:18:12 AM EDT [facility] G89.29 Other chronic pain Other chronic pain Diagnosis 11/2019 09:51:00 AM [facility] R51.9 Headache, unspecified Headache, unspecified Diagnosis 03/17/2020 09:51:00 AM [facility] R83.8 Other abnormal findings in cerebrospinal fluid Other abnormal findings in cerebrospinal fluid Diagnosis 03/17/2020 09:51:00 AM [facility] R00.2 Palpitations Palpitations Diagnosis 03/09/2020 11:27:18 A M EDT [facility] R06.02 Shortness of breath Shortness of breath Diagnosis 0 03/09/2020 11:27:18 AM EDT [facility] R09.02 Hypoxemia Hypoxemia Diagnosis 02/10/2020 08:25:54 AM ED [facility] G93.2 Benign intracranial hypertension Benign intracra nial hypertension Diagnosis 02/07/2020 09:44:33 AM EDT [facility] R53.1 Weakness Weakness Diagnosis 02/07/2020 08:13:29 AM ED [facility] M79.2 Neuralgia and neuritis, unspecified Neuralgia an d neuritis, unspecified Diagnosis 02/07/2020 08:13:29 AM [facility] R26.89 Other abnormalities of gait and mobility Other abnormalities of gait and mobility Diagnosis 01/03/2020 01:50:46 PM [facility] G25.81 Restless legs syndrome Restless legs syndrome Diagnosi s 01/03/2020 01:50:46 PM [facility] R74.0 Nonspecific elevation of lev els of transaminase and lactic acid dehydrogenase [LDH] NONSPEC ELEV OF LEVELS OF TRANSAMNS & LA CTIC ACID DEHYDRGNSE Diagnosis 11/01/2019 12:31:00 PM EDT [facility] G61.9 Inflammatory polyneuropathy, unspecified Inflammatory polyneuropathy, unspecified Diagnosis 10/07/2019 10:20:54 AM [facility] R73.9 Hyperglycemia, unspecified HYPERGLYCEMIA, UNSPECIFIED Diagnosis 09/17/2019 04:49:00 PM [facility] E78.2 Mixed hyperlipidemia MIXED HYPERLIPIDEMIA Diagnosis 09/17/2019 04:49:00 PM [facility] E55.9 Vitamin D deficiency, unspecified VITAMIN D DEFI CIENCY, UNSPECIFIED Diagnosis 09/17/2019 04:49:00 PM [facility] I10 Essential (primary) hypertension ESSENTIAL (PRIMARY) H YPERTENSION Diagnosis 09/17/2019 04:49:00 PM [facility] Z91.09 Other allergy status, other than to drug s and biological substances OTH ALLERGY STATUS, OTH THAN TO DRUGS AND BIOLG SUBSTANCES Diagnosis 09/11/2019 04:20:[address] [facility] Z79.899 Other snf (current) drug therapy O [employer] (CURRENT) DRUG THERAPY Diagnosis 09/11/2019 04:20:[address] [facility] Z79.82 snf (current) use of aspirin LONGTERM (CU RRENT) USE OF ASPIRIN Diagnosis 09/11/2019 04:20:[address] [facility] I10 Essential (primary) hypertension ESSENTIAL (PRIMARY) H YPERTENSION Diagnosis 09/11/2019 04:20:[address] [facility] K21.9 Gastro-esophageal reflux disease without esophagitis GASTRO-ESOPHAGEAL REFLUX DISEASE WITHOUT ESOPHAGITIS Diagnosis 09/11/2019 04:20:00 PM ED [facility] B97.89 Other viral agents as the cause of disea ses classified elsewhere OTH VIRAL AGENTS THE CAUSE OF DISEASES CLASSD ELSWHR Diagnosis 04:20:[address] [facility] J06.9 Acute upper respiratory infection, unspe cified ACUTE UPPER RESPIRATORY INFECTION, UNSPECIFIED Diagnosis 09/11/2019 04:20:00 PM [facility] Z87.442 Personal history of urinary calculi PERSONAL HIS TORY OF URINARY CALCULI Diagnosis 08/23/2019 10:45:[address] [facility] L03.115 Cellulitis of right lower limb CELLULITIS OF RIGHT LOW ER LIMB Diagnosis 08/23/2019 10:45:[address] [facility] R21 Rash and other nonspecific skin eruption RASH AND OTHER NONSPECIFIC SKIN ERUPTION Diagnosis 08/23/2019 10:18:[address] [facility] R06.02 Shortness of breath SHORTNESS OF BREATH Diagnosis 0 08/23/2019 10:18:[address] [facility] Z09 Encounter for follow-up exam ination after completed treatment for conditions other than malignant neoplasm ENCNTR FOR F/U EXAM AFT TRTMT FOR COND O TH THAN MALIG NEOPLM Diagnosis 08/14/2019 08:49:00 AM [facility] R26.2 Difficulty in walking, not elsewhere cla ssified DIFFICULTY IN WALKING, NOT ELSEWHERE CLASSIFIED Diagnosis 08/14/2019 08:49:00 AM [facility] M62.81 Muscle weakness (generalized) MUSCLE WEAKNESS (GENERAL IZED) Diagnosis 08/14/2019 08:49:00 AM [facility] M54.5 Low back pain LOW BACK PAIN Diagnosis 08/12/2019 07:40:00 AM [facility] M25.521 Pain in right elbow PAIN IN RIGHT ELBOW Diagnosis 0 08/12/2019 07:40:00 AM [facility] 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 CHRONIC INFLAMMATORY DEMYELINATING POLYNEURITIS Diagnosis 08/12/2019 07:40:00 AM [facility] J96.11 Chronic respiratory failure with hypoxia CHRONIC RESPIRATORY FAILURE WITH HYPOXIA Diagnosis 07/19/2019 07:51:00 AM [facility] G47.33 Obstructive sleep apnea (adult) (pediatr ic) OBSTRUCTIVE SLEEP APNEA (ADULT) (PEDIATRIC) Diagnosis 07/19/2019 07:51:00 AM [facility] 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 PERSONAL HISTORY OF METHICILLIN RESIS STAPH INFECTION Diagno sis 07/05/2019 09:07:00 PM [facility] K58.9 Irritable bowel syndrome without diarrhe a IRRITABLE BOWEL SYNDROME WITHOUT DIARRHEA Diagnosis 07/05/2019 09:07:00 PM [facility] Z68.35 Body mass index (BMI) 35.0-35.9, adult B ALRENE MASS INDEX (BMI) 35.0-35.9, ADULT Diagnosis 07/05/2019 09:07:00 PM [facility] E66.9 Obesity, unspecified OBESITY, UNSPECIFIED Diagnosis 07/05/2019 09:07:00 PM [facility] B97.81 Human metapneumovirus as the cause of di seases classified elsewhere HUMAN METAPNEUMOVIRUS THE CAUSE OF DISEASES CLASSD ELSWHR Diagnosis 07/05/2019 09:07:00 PM [facility] K76.0 Fatty (change of) liver, not elsewhere c lassified FATTY (CHANGE OF) LIVER, NOT ELSEWHERE CLASSIFIED Diagnosis 07/05/2019 09:07:00 PM [facility] J96.21 Acute and chronic respiratory failure wi th hypoxia ACUTE AND CHRONIC RESPIRATORY FAILURE WITH HYPOXIA Diagnosis 07/05/2019 09:07:00 PM [facility] G62.89 Other specified polyneuropathies OTHER SPECIFIED POLYNEUROPATHIES Diagnosis 07/04/2019 07:39:00 AM [facility] R13.10 Dysphagia, unspecified DYSPHAGIA, UNSPECIFIED Diagnosi s 06/24/2019 01:51:00 PM [facility] Z87.01 Personal history of pneumonia (recurrent ) PERSONAL HISTORY OF PNEUMONIA (RECURRENT) Diagnosis 06/24/2019 01:51:00 PM [facility] G72.9 Myopathy, unspecified MYOPATHY, UNSPECIFIED Diagnosis 06/20/2019 03:54:00 PM [facility] G72.9 Myopathy, unspecified MYOPATHY, UNSPECIFIED Diagnosis 06/19/2019 12:31:00 PM [facility] J96.10 Chronic respiratory failure, unspecified whether with hypoxia or hypercapnia CHRONIC RESPIRATORY FAILURE, UNSP W HYPOXIA OR HYPERCA PNIA Diagnosis 06/18/2019 08:54:00 AM [facility] M21.371 Foot drop, right foot FOOT DROP, RIGHT FOOT Diagnosis 05/15/2019 01:39:00 PM [facility] R20.2 Paresthesia of skin PARESTHESIA OF SKIN Diagnosis 1 07/16/2018 01:39:00 PM [facility] T38.0X5A Adverse effect of glucocorti coids and synthetic analogues, initial encounter ADVERSE EFFECT OF GLUCOCORT/SYNTH ANALOG, INIT Diagnosis 05/07/2019 08:35:00 PM [facility] R73.9 Hyperglycemia, unspecified HYPERGLYCEMIA, UNSPECIFIED Diagnosis 05/07/2019 08:35:00 PM [facility] B37.0 Candidal stomatitis CANDIDAL STOMATITIS Diagnosis 1 07/07/2018 08:35:00 PM [facility] E87.2 Acidosis ACIDOSIS Diagnosis 05/07/2019 08:35:00 PM [facility] F32.9 Major depressive disorder, single episod e, unspecified MAJOR DEPRESSIVE DISORDER, SINGLE EPISODE, UNSPECIFIED Diagnosis 05/07/2019 08:35:00 PM [facility] F41.9 Anxiety disorder, unspecified ANXIETY DISORDER, UNSPEC IFIED Diagnosis 05/07/2019 08:35:00 PM [facility] E66.01 Morbid (severe) obesity due to excess ca lories MORBID (SEVERE) OBESITY DUE TO EXCESS CALORIES Diagnosis 05/07/2019 08:35:00 PM EST [facility] J84.89 Other specified interstitial pulmonary d iseases OTHER SPECIFIED INTERSTITIAL PULMONARY DISEASES Diagnosis 05/07/2019 08:35:00 PM EST [facility] Surgeries/Procedures Procedure Description Date Indications Data Source(s) POCT AMB EKG POCT AMB EKG Routine 06/09/2020 5:00 PM EST Chronic respiratory failure with hypoxia 06/09/2020 10:00:00 PM EST Chronic respiratory failure with hypoxia [facility] Chronic respiratory failure with hypoxia Spirometry 04/06/2020 12:00:00 AM EDT M SANTI ([facility]) Maximum Breathing Capacity, Maximal Voluntary Ventilation 04/06/2020 12:00:00 AM EDT MEDENT ([facility] ) NATRIURETIC PEPTIDE 03/18/2020 12:00:00 AM [facility] BASIC METABOLIC PANEL CALCIUM TOTAL METABOLIC PANEL TOTAL CA 03/18/2020 12:00:00 AM [facility] CELL COUNT, CSF CELL COUNT, CSF Routine 03/17/2020 12:51 PM EDT 03/17/2020 12:51:00 PM [facility] PROTEIN TOTAL XCPT REFRACTOMETRY OTH SRC PROTEIN, CSF Routin e 03/17/2020 12:51 PM EDT 03/17[facility] FLUID OTHER THAN BLOOD GLUCOSE, CSF Routine 03/17/2020 12:51 PM EDT [facility] TIME (PTT) PARTIAL THROMBOPLASTIN TIME ( PTT) STAT 03/17/2020 10:44 AM EDT 03/17/2020 10:44:00 AM [facility] PROTHROMBIN TIME PROTIME INR STAT 03/17/2020 10:44 AM EDT 03/17/2020 10:44:00 AM [facility] BLOOD COUNT COMPLETE AUTO&AUTO DIFRNTL WBC COUNT CBC AND DIFFER ENTIAL STAT 03/17/2020 10:44 AM EDT 03/17/2020 10:44:00 AM [facility] BASIC METABOLIC PANEL CALCIUM TOTAL BASIC METABOLIC PANEL STAT 03/17/2020 10:44 AM EDT 03/17/2020 10:44:00 AM EDT [facility] Needle electromyography, each extremity, with related paraspinal areas, when performed, done with nerve conduction, amplitude and latency/velocity study; complete, five or more muscles studied, innervated by three or more nerves or four or more spinal levels (list separately in addition to the code for primary procedure). 12/25/2019 12:00:00 AM EDT MEDRENITA T ([facility], ) Needle electromyography, each extremity, with related paraspinal areas, when performed, done with nerve conduction, amplitude and latency/velocity study; complete, five or more muscles studied, innervated by three or more nerves or four or more spinal levels (list separately in addition to the code for primary procedure). 12/25/2019 12:00:00 AM EDT MEDRENITA Diana ([facility], ) 59582 Nerve conduction studies 13 or more studies NEW 201212/25/2019 12:00:00 AM EDT MEDCYNDI ([facility] ) HEPATITIS B CORE ANTIBODY HBCAB TOTAL HEP B CORE ANTIBODY TO MIKAEL 11/01/2019 12:00:00 AM [facility] IAAD EIA HEPATITIS B SURFACE ANTIGEN HEPATITIS B SURFACE AG IA 11/01/2019 12:00:00 AM [facility] HEPATITIS B SURF ANTIBODY HBSAB HEP B SURFACE ANTIBODY 10/31 12:00:00 AM [facility] HEPATITIS C ANTIBODY HEPATITIS C AB TEST 11/01/2019 12:00:00 AM [facility] IRON BINDING CAPACITY IRON BINDING TEST 11/01/2019 12:00:00 AM [facility] IRON ASSAY OF IRON 11/01/2019 12:00:00 AM [facility] FERRITIN ASSAY OF FERRITIN 11/01/2019 12:00:00 AM [facility] HEPATIC FUNCTION PANEL HEPATIC FUNCTION PANEL 11/01/2019 12:00:00 A M [facility] EKG- ALL NON MCR/TRI PAYERS 10/28/2019 12:00:00 AM EDT eCW1 ([facility]) Bronchospasm Evaluation 10/07/2019 12:00:00 AM EDT MEDENT ([facility], ) Maximum Breathing Capacity, Maximal Voluntary Ventilation 10/07/2019 12:00:00 AM [facility] ([facility]) Plethysmography Determination Lung Volumes & Per Airway Resi st 10/07/2019 12:00:00 AM [facility] ([facility]) DIFFUSING CAPACITY 10/07/2019 12:00:00 AM [facility] [facility] ([facility], ) MRI SPINAL CANAL LUMBAR W/O CONTRAST MATERIAL 09/30/19 12:00:00 AM [facility] ([facility]) MRI SPINAL CANAL LUMBAR W/O CONTRAST MATERIAL 09/30/19 12:00:00 AM [facility] ([facility]) PROTEIN ELECTROPHORETIC FRACTJ&QUANTJ SERUM PROTEIN E-PHORES IS SERUM 09/17/2019 12:00:00 AM [facility] PROTEIN XCPT REFRACTOMETRY SERUM PLASMA/WHL BLD ASSAY OF PRO TEIN SERUM 09/17/2019 12:00:00 AM [facility] IMMUNOFIXJ ELECTROPHORESIS SERUM IMMUNOFIX E-PHORESIS SERUM 09/17/2019 12:00:00 AM [facility] THYROXINE FREE ASSAY OF FREE THYROXINE 09/17/2019 12:00:00 AM [facility] THYROID STIMULATING HORMONE TSH ASSAY THYROID STIM HORMONE 0 09/17/2019 12:00:00 AM [facility] 25 HYDROXY INCLUDES FRACTIONS IF PERFORMED VITAMIN D 25 HYDR OXY 09/17/2019 12:00:00 AM [facility] BLOOD COUNT COMPLETE AUTO&AUTO DIFRNTL WBC COUNT COMPLETE CB C W/AUTO DIFF WBC 09/17/2019 12:00:00 AM [facility] HEMOGLOBIN GLYCOSYLATED A1C GLYCOSYLATED HEMOGLOBIN TEST 12/2019 12:00:00 AM [facility] LIPID PANEL LIPID PANEL 09/17/2019 12:00:00 AM [facility] COMPREHENSIVE METABOLIC PANEL COMPREHEN METABOLIC PANEL 12/2019 12:00:00 AM [facility] PRESSURIZED/NONPRESSURIZED INHALATION TREATMENT AIRWAY INHAL ATION TREATMENT 09/11/2019 12:00:[address] [facility] [address] X-RAY EXAM CHEST 1 VIEW 09/11/2019 12:00:[address] [facility] ECG ROUTINE ECG W/LEAST 12 LDS TRCG ONLY W/O I&R ELECTROCARD IOGRAM TRACING 09/11/2019 12:00:[address] [facility] [address] SARS-COV-2 COVID-19 AMP PRB 09/11/2019 12:00:[address] [facility] IADNA MYCOPLSM PNEUMONIAE AMPLIFIED PROBE TQ M.PNEUMON DNA A MP PROBE 09/11/2019 12:00:[address] [facility] IADNA CHLAMYDIA PNEUMONIAE AMPLIFIED PROBE TQ CHYLMD PNEUM D NA AMP PROBE 09/11/2019 12:00:[address] [facility] IADNA NOS AMPLIFIED PROBE TQ EACH ORGANISM DETECT AGENT NOS DNA AMP 09/11/2019 12:00:[address] [facility] [address] RESP VIRUS 12-25 TARGETS 09/11/2019 12:00:[address] [facility] CULTURE BACTERIAL BLOOD AEROBIC W/ID ISOLATES BLOOD CULTURE FOR BACTERIA 09/11/2019 12:00:[address] [facility] URNLS DIP STICK/TABLET RGNT AUTO W/O MICROSCOPY URINALYSIS A UTO W/O SCOPE 09/11/2019 12:00:[address] [facility] THROMBOPLASTIN TIME PARTIAL PLASMA/WHOLE BLOOD THROMBOPLASTI N TIME PARTIAL 09/11/2019 12:00:[address] [facility] PROTHROMBIN TIME PROTHROMBIN TIME 09/11/2019 12:00:[address] [facility] BLOOD COUNT COMPLETE AUTO&AUTO DIFRNTL WBC COUNT COMPLETE CB C W/AUTO DIFF WBC 09/11/2019 12:00:[address] [facility] MAGNESIUM ASSAY OF MAGNESIUM 09/11/2019 12:00:[address] [facility] NATRIURETIC PEPTIDE ASSAY OF NATRIURETIC PEPTIDE 09/11/2019 12:00:[address] [facility] LACTATE ASSAY OF LACTIC ACID 09/11/2019 12:00:[address] [facility] BLOOD GASES ANY COMBINATION PH PCO2 PO2 CO2 HCO3 BLOOD GASES ANY COMBINATION 09/11/2019 12:00:[address] [facility] TROPONIN QUANTITATIVE ASSAY OF TROPONIN QUANT 09/11/2019 12:00:[address] [facility] LIPASE ASSAY OF LIPASE 09/11/2019 12:00:[address] [facility] COMPREHENSIVE METABOLIC PANEL COMPREHEN METABOLIC PANEL 06/2019 12:00:[address] [facility] FIBRIN DGRADJ PRODUCTS D-DIMER QUANTITATIVE FIBRIN DEGRADATI ON QUANT 09/11/2019 12:00:[address] [facility] Injection, magnesium sulfate, per 500 mg 09/11/2019 12 :00:[address] [facility] Non-covered item or service 09/11/2019 12:00:[address] [facility] COLLECTION VENOUS BLOOD VENIPUNCTURE ROUTINE VENIPUNCTURE 12:00:[address] [facility] IV INFUSION THERAPY/PROPHYLAXIS /DX 1ST TO 1 HR THER/PROPH/D IAG IV INF INIT 09/11/2019 12:00:[address] [facility] EMERGENCY DEPT VISIT HIGH SEVERITY&THREAT FUNCJ EMERGENCY DE PT VISIT 09/11/2019 12:00:[address] [facility] [address] X-RAY EXAM CHEST 2 VIEWS 08/23/2019 12:00:[address] [facility] Injection, ketorolac tromethamine, per 15 mg 0 12:00:[address] [facility] THER PROPH/DX NJX IV PUSH SINGLE/1ST SBST/DRUG THER/PROPH/DI AG INJ IV PUSH 08/23/2019 12:00:[address] [facility] IV INFUSION HYDRATION EACH ADDITIONAL HOUR HYDRATE IV INFUSI ON ADD-ON 08/23/2019 12:00:00 AM [facility] outpatient clinic visit for assessment and ma nagement of a patient Hospital Outpatient Clinic Visit 08/12/2019 12:00:00 AM [facility] Computerized Tomography (CT Scan) of Neck using Low Os molar Contrast CT SCAN OF NECK USING L OSM CONTRAST 07/06/2019 12:00:00 AM [facility] Computerized Tomography (CT Scan) of Samira st and Abdomen using Low Osmolar Contrast CT SCAN OF CHEST & ABD USING L OSM CONTRAST 07/05/2019 12:00 :00 AM [facility] Measurement of Cardiac Rhythm, External Approach MEASU REMENT OF CARDIAC RHYTHM, EXTERNAL APPROACH 07/05/2019 12:00:00 AM [facility] Assistance with Respiratory Ventilation, Less than 24 Consecutive Hours, Continuous Positive Airway Pressure ASSISTANCE WITH RESPIRATORY VENTILATION, <24 HRS, CPAP 07/05/2019 12:00:00 AM [facility] BIOPSY MUSCLE DEEP 07/04/2019 12:00:00 AM [facility] LEVEL I SURG PATHOLOGY GROSS EXAMINATION ONLY SURGICAL PATH GROSS 07/04/2019 12:00:00 AM [facility] GAMMAGLOBULIN IGA IGD IGG IGM EACH ASSAY IGA/IGD/IGG/IGM EAC H 07/04/2019 12:00:00 AM [facility] CELL COUNT MISC BODY FLUIDS W/DIFFERENTIAL COUNT BODY FLUID CELL COUNT 07/04/2019 12:00:00 AM [facility] GLUCOSE QUANTITATIVE BLOOD XCPT REAGENT STRIP ASSAY GLUCOSE BLOOD QUANT 07/04/2019 12:00:00 AM [facility] GLUCOSE BODY FLUID OTHER THAN BLOOD GLUCOSE OTHER FLUID 06/13 12:00:00 AM [facility] PROTEIN ELECTROPHORETIC FRACTJ&QUANTJ SERUM PROTEIN E-PHORES IS SERUM 07/04/2019 12:00:00 AM [facility] Unclassified drugs 07/04/2019 12:00:00 AM [facility] Injection, propofol, 10 mg 07/04/2019 12:00:00 AM [facility] Injection, fentanyl citrate, 0.1 mg 07/04/2019 12:00:0 0 AM [facility] Injection, midazolam hydrochloride, per 1 mg 0 12:00:00 AM [facility] Injection, cefoxitin sodium, 1 gm 07/04/2019 12:00:00 AM [facility] Excision of Right Upper Leg Muscle, Open Approach, Yessica gnostic EXCISION OF RIGHT UPPER LEG MUSCLE, OPEN APPROACH, DIAGN 07/04/2019 12:00:00 AM [facility] EVAL ORAL&PHARYNGEAL SWLNG FUNCJ EVALUATE SWALLOWING FUNCTIO N 06/24/2019 12:00:00 AM [facility] THER PX 1/> AREAS EA 15 MIN GAIT TRAINJ W/STAIR GAIT TRAININ G THERAPY 06/21/2019 12:00:00 AM [facility] THROMBOPLASTIN TIME PARTIAL PLASMA/WHOLE BLOOD THROMBOPLASTI N TIME PARTIAL 06/20/2019 12:00:00 AM [facility] PROTHROMBIN TIME PROTHROMBIN TIME 06/20/2019 12:00:00 AM [facility] THER PX 1/> AREAS EACH 15 MIN NEUROMUSC REEDUCAJ NEUROMUSCUL AR REEDUCATION 06/18/2019 12:00:00 AM [facility] THERAPEUTIC PX 1/> AREAS EACH 15 MIN EXERCISES THERAPEUTIC E XERCISES 06/14/2019 12:00:00 AM [facility] [address] PULMONARY STRESS TESTING 06/13/2019 12:00:00 AM [facility] [address] NRV CNDJ TEST 13/> STUDIES 05/15/2019 12:00:00 AM [facility] Ultrasonography of Bilateral Lower Extremity Veins ULT RASONOGRAPHY OF BILATERAL LOWER EXTREMITY VEINS 05/09/2019 12:00:00 AM [facility] Magnetic Resonance Imaging (MRI) of Lumbar Spine using Other Contrast MRI OF LUMBAR SPINE USING OTH CONTRAST 05/09/2019 12:00:00 AM [facility] Magnetic Resonance Imaging (MRI) of Lumbar Spine MAGNE TIC RESONANCE IMAGING (MRI) OF LUMBAR SPINE 05/09/2019 12:00:00 AM [facility] Magnetic Resonance Imaging (MRI) of Thoracic Spine usi ng Other Contrast MRI OF THORACIC SPINE USING OTH CONTRAST 05/09/2019 12:00:00 AM [facility] Magnetic Resonance Imaging (MRI) of Thoracic Spine MAG NETIC RESONANCE IMAGING (MRI) OF THORACIC SPINE 05/09/2019 12:00:00 AM [facility] [address] PT EVAL HIGH COMPLEX 45 MIN 05/01/2019 12:00:00 AM [facility] Results ID Date Data Source [id number] 06/16/2020 07:34:00 PM EST [facility] Name Value Range Interpretation Code Description Data Agueda rce(s) Supporting Document(s) SARS-CoV-2 (COVID 19) [facility] This lab was ordered by [facility] a nd reported by [facility]. ID Date Data Source [id number] 05/27/2020 02:35:12 PM EST [facility] Name Value Range Interpretation Code Description Data Agueda rce(s) Supporting Document(s) Progress Note [facility] CYGFAl1mNfSYPxOl32/ZPNctFRWkd5OuZAikTGt6AYdpUCEpU6VeVZB3mB6mFRT9ENyZChMqEvJcFzO8 lbm [file] ICAgICAgICAgICAgICAgICAgICAgICAgICAgICAgICAgICAgICAgICAgICAgICAgICAgICAgICAgICAg ICAgICAgICAgICAgICAgICAgICAgICAgICAgICAgICANCiAgICAgICAgICAgICAgICAgICAgICAgICAg ICAgICAgICAgICAgICAgICAgICAgICAgICAgICAgIC AgICAgICAgICAgICAgICAgICAgICAgICAgICAgICAgICAgICAgICAgICANCiAgICAgICAgICAgICAgIC AgICAgICAgICAgICAgICAgICAgICAgICAgICAgICAgICAgICAgICAgICAgICAgICAgICAgICAgICAgIC AgICAgICAgICAgICAgICAgICAgICAgICANCiAgICAg ICAgICAgICAgICAgICAgICAgICAgICAgICAgICAgICAgICAgICAgICAgICAgICAgICAgICAgICAgICAg ICAgICAgICAgICAgICAgICAgICAgICAgICAgICAgICAgICANCiAgICAgICAgICAgICAgICAgICAgICAg ICAgICAgICAgICAgICAgICAgICAgICAgICAgICAgIC AgICAgICAgICAgICAgICAgICAgICAgICAgICAgICAgICAgICAgICAgICAgICANCiAgICAgICAgICAgIC AgICAgICAgICAgICAgICAgICAgICAgICAgICAgICAgICAgICAgICAgICAgICAgICAgICAgICAgICAgIC AgICAgICAgICAgICAgICAgICAgICAgICAgICANCiAg ICAgICAgICAgICAgICAgICAgICAgICAgICAgICAgICAgICAgICAgICAgICAgICAgICAgICAgICAgICAg ICAgICAgICAgICAgICAgICAgICAgICAgICAgICAgICAgICAgICANCiAgICAgICAgICAgICAgICAgICAg ICAgICAgICAgICAgICAgICAgICAgICAgICAgICAgIC AgICAgICAgICAgICAgICAgICAgICAgICAgICAgICAgICAgICAgICAgICAgICAgICANCiAgICAgICAgIC AgICAgICAgICAgICAgICAgICAgICAgICAgICAgICAgICAgICAgICAgICAgICAgICAgICAgICAgICAgIC AgICAgICAgICAgICAgICAgICAgICAgICAgICAgICAN CiAgICAgICAgICAgICAgICAgICAgICAgICAgICAgICAgICAgICAgICAgICAgICAgICAgICAgICAgICAg ICAgICAgICAgICAgICAgICAgICAgICAgICAgICAgICAgICAgICAgICANCjw/sSXzT4nasKVvkpS4W7dx Bs2USc5ZJS7xj5QqPCXpEFunbtWcYrjLFyEwDDAoTp kXIih9FCquZF7WlDWfK5ChH6GaYRusQJ7FGPTjPCQchIUvEEDeLTSzOsE8DLOqIXumDT0NgSWsOGwuCG AgXCOxVaVyIDZvMFQuFWLqKRAyIYWQCOMvUBHyRdRqIBMwPJUxWYnzUPEKEY4PPcBeR9MgrM38WGcHJr 4+HKflugIpXatGFmL9ZAQzt3KkSFd6VU3CWTWjNbac r9PkNmieLZRLEForCN9ZNOU0ENC6LAUjKt6SILDjP369mnKaWG7QBx9UGfFdQQ7zen8YTyttMXGrZuzH Jjk8JKhhSC0KbFVkUGwAxs9iuxJjktOZb0TxeqNlaPHLAGguxALPPJY8MUbazfIxWJ9CQFS4GECoCsHt OiEwEqTzIWA9HAGsOK5xARgoHE4VLIU3DBefYRMqWA HyW0wPJcQzBDZcXFApwXkmQV5YYtFoU9YgrhXjrWYnIpLhMNDXSr5+RSefmeRxNrbERdE1WUNyx3KgJX m2WT5AFRScFNjbPB5LENHhsA7bXYekGJ1HZvScPHRzIBIDBdKkG73ntQVbQGr0C8KpRzZqPFKmGossHU MgPDwvTmFtZXMgWyBdDQogID4+ID4+ZJhxTE6HZZoz ttZeYMMcDx6NZLJaPBBfPR3hTOQuCNTmU1M2oYdoUZIXMhLcN6ejsyjlRG1kCSDkX388qJikznPpKVU0 UUSdGu9OXOGtJQQ0WKOmnJAxUmPeTPUVFFshRG8InGMeFCH9fN3zWJfqXTIzIJOjM5gJArGajAiuGV58 bGwgbnVsbCBdDQo+Rl1DCL5yl7LpWBw1fvScEDgaGW ZrJIyoXDAzIFGdGWUxMRR4NJJ5EIAVRyWyYAPfFPGaSQklQEZbBWYpfi7ZZKRrQWX7WtKsTPVyWDGlSB XiZQcnNXLePAS0ETkwPGSnHBPlYO4EGlWiBJKqEJXtNQgoWKIoOAOlhe2IBVDaVDAdDRN2LiQiJLGiZJ AgXDziQJHkRHU1MzhrKZOwIFJyWR1DBaGrACCoALu9 RJLdNPRbBKWplk1HVADiZGWuAmh7BgGdREWbBCJzTZlpHSCbGJCxEjjlOSWqWYYtXC6DRhLwIJGhVNK0 HrDiIWTeOSMfdo0NUWHgRVXzCcyvVmYsRRRwBYCqSWdyWKDpSBOiLYT1VAXyLIYnHJ2EFmFcLMUwSAzd ITrcKGJeRPAatg5QWODfJUGrLeSqJKTaBDNmDNNbYC ubNDClMYTyPLPvSPXfNCWtXY8DHzDdEPTuIaGiLorrFKWhKMLmnd5CNJUsRIGvWAMhZwPtKGUfMCKwXO flCDQsVML0ObJ7NYAvXDYzFC9MOwPlABRpMjB3BXsyRVByGGUfus9TTOQePZCsMSk5TxGjBBNzUCTgME rbWAVySBZ1HGL2HSEkGVLfGS6DEcIjGJQcWpI7Bgpy NTEcTKTjpk3BESZgUSEtVoZbGGEuYFNmVXWgDPowEHJiXTR5IuE9XRJqUDIaHR2PQtRiQKDtYsx7ALkh YKQwYLAhll5BJUSmIHGzJLL1BuYbGTCxBWFvMAtcSRKzFXF9HpedQRMsBOOsLN7VWjKuRVPkEei9YwSb LWMwTFIhkx8LQONyZBFwMQL1YZToASDeMQAeVClhPT NkZHIkXqNeDNIbOFPhZM8XVuUmWJSoZQA6NQCqKSHcGKIfjf6WVDRwJMU7DAs5AZNmGOVpYOZtTUozCZ VuUDJbWUSjECVsSLYyTC7JJpXeFKWbPLLfBxJiMXFtLAYlvw5JWTIsOZE2HxPcTkMkQVXtOGJsLByrEO ZtZPPzOsDtGRFhBILxRI3YOeTiIZAyFDMcHXcmYQJi UDLnwe5VGMPeBCI6OAS9EJNeGLLrOZQfUVteCQBpHXU9JIZkPOJrPFNeTO8WSzXjPPcdGTNKWnd1RJcj R8s0YMJ7XA9SQ2Nwh0EwPxixRQLTZFbvWQ4navQwRPIkAr7BZ6cPTkxmBxcaVhXvQGMqGyizCxXcIvV9 WxTyEUzrB7PoYkNtJT4dLYTxJFCjGEA3RTG2VxF3Dv LcJjmlHAAmFJH0STA4WNZlOmYrDE3KSa6QRoZ9FCB1iOEgOx5IVFX7ZOBGLgGiFX0PJEk= ID Date Data Source [id number] 05/18/2020 09:54:00 AM EST [facility] ([facility], ) Name Value Range Interpretation Code Description Data Agueda rce(s) Supporting Document(s) Glucose, Fasting 114 mg/dL 70-100 Above high normal M [facility] ([facility]) Creatinine For GFR 1.10 mg/dL 0.70-1.30 Normal (applies to non -numeric results) [facility] ([facility], ) Blood Urea Nitrogen 20 mg/dL 7-18 Above high normal [facility] ([facility]) Potassium Serum 4.8 meq/L 3.5-5.1 Significant change down [facility] ([facility], ) Sodium Level 139 meq/L 136-145 Normal (applies to non-numeric res ults) [facility] ([facility], ) Glomerular Filtration Rate Laboratory test result Normal (applies to non- numeric results) [facility] ([facility], ) <content>Units are mL/min/1.73 m2</content>
<content></content>
<content>Chronic Kidney Disease Staging per NKF:</content>
<content></content>
<content>Stage I & II GFR >=60 Normal to Mildly Decreased</content>
<content>Stage III GFR 30- 59 Moderately Decreased</content>
<content>Stage IV GFR 15-29 Severely Decreased</content>
<content>Stage V GFR <15 Very Little GFR Left</content>
<content>ESRD GFR <15 on [facility]</content>
<content></content> Carbon Dioxide Level 29 meq/L 21-32 Normal (applies to non-num emilia results) [facility] ([facility], ) Chloride Level 102 meq/L 98-107 Normal (applies to non-numeric r esults) [facility] ([facility], ) Calcium Level 9.3 mg/dL 8.5-10.1 Normal (applies to non-numeric re sults) [facility] ([facility], ) Anion Gap 8 meq/L 8-16 Normal (applies to non-numeric resul ts) [facility], ) Ast/Sgot 24 U/L 7-37 Normal (applies to non-numeric resul ts) [facility] ([facility], ) Alkaline Phosphatase 107 U/L 45-117 Normal (applies to non-num emilia results) [facility], ) Alt/SGPT 61 U/L 12-78 Normal (applies to non-numeric resul ts) [facility] ([facility]) Bilirubin,Total 0.7 mg/dL 0.2-1.0 Normal (applies to non-numeric results) [facility] ([facility]) Total Protein 7.5 GM/DL 6.4-8.2 Normal (applies to non-numeric re sults) [facility]) Albumin 4.3 GM/DL 3.2-5.2 Normal (applies to non-numeric resul ts) [facility] ([facility]) Albumin/Globulin Ratio 1.3 Normal (applies to non-n umeric results) [facility]) ID Date Data Source [id number] 05/15/2020 11:53:00 PM EST [facility] Name Value Range Interpretation Code Description Data Agueda rce(s) Supporting Document(s) SARS-CoV-2 (COVID 19) [facility] This lab was ordered by [facility] a nd reported by [facility]. ID Date Data Source [id number] 04/22/2020 02:26:00 PM EST [facility] ([facility]) Name Value Range Interpretation Code Description Data Agueda rce(s) Supporting Document(s) Magnesium [Mass/volume] in Serum or Plasma 2.1 mg/dL 1.8-2 .4 Normal (applies to non-numeric results) [facility] ([facility], ) ID Date Data Source [id number] 04/22/2020 02:26:00 PM EST [facility] ([facility]) Name Value Range Interpretation Code Description Data Agueda rce(s) Supporting Document(s) Glucose, Fasting 114 mg/dL 70-100 Above high normal [facility] Glomerular Filtration Rate Laboratory test result Normal (applies to non- numeric results) [facility]) <content>Units are mL/min/1.73 m2</content>
<content></content>
<content>Chronic Kidney Disease Staging per NKF:</content>
<content></content>
<content>Stage I & II GFR >=60 Normal to Mildly Decreased</content>
<content>Stage III GFR 30- 59 Moderately Decreased</content>
<content>Stage IV GFR 15-29 Severely Decreased</content>
<content>Stage V GFR <15 Very Little GFR Left</content>
<content>ESRD GFR <15 on [facility]</content>
<content></content> Creatinine For GFR 1.09 mg/dL 0.70-1.30 Normal (applies to non -numeric results) [facility] ([facility], ) Blood Urea Nitrogen 15 mg/dL 7-18 Normal (applies to non-nume pako results) [facility] ([facility], ) Chloride Level 104 meq/L 98-107 Normal (applies to non-numeric r esults) [facility] ([facility], ) Sodium Level 141 meq/L 136-145 Normal (applies to non-numeric res ults) [facility] ([facility], ) Potassium Serum 3.8 meq/L 3.5-5.1 Normal (applies to non-numeric results) [facility] ([facility], ) Anion Gap 10 meq/L 8-16 Normal (applies to non-numeric resul ts) [facility], ) Carbon Dioxide Level 27 meq/L 21-32 Normal (applies to non-num emilia results) [facility] ([facility], ) Calcium Level 9.2 mg/dL 8.5-10.1 Normal (applies to non-numeric re sults) [facility] ([facility], ) Ast/Sgot 36 U/L 7-37 Normal (applies to non-numeric resul ts) [facility] ([facility], ) Alt/SGPT 61 U/L 12-78 Normal (applies to non-numeric resul ts) [facility], ) Alkaline Phosphatase 116 U/L 45-117 Normal (applies to non-num emilia results) [facility], ) Total Protein 7.4 GM/DL 6.4-8.2 Normal (applies to non-numeric re sults) [facility], ) Bilirubin,Total 0.9 mg/dL 0.2-1.0 Normal (applies to non-numeric results) [facility] ([facility], ) Albumin 4.1 GM/DL 3.2-5.2 Normal (applies to non-numeric resul ts) [facility] ([facility], ) Albumin/Globulin Ratio 1.2 Normal (applies to non-n umeric results) [facility] ([facility]) ID Date Data Source [id number] 03/24/2020 09:18:31 AM EDT [facility] IR LUMBAR PUNCTUREFINAL RESULTInterprete d by:Shavon [...] rce(s) Supporting Document(s) ID Date Data Source [id number] 03/18/2020 04:17:00 PM EDT [facility] Name Value Range Interpretation Code Description Data Agueda rce(s) Supporting Document(s) B-Type Natriuretic Peptide BNP <125 Normal (applies to non-numeric results) [facility] Results of this test should always be us ed in conjunction with the patients medical history, clinical presentation, and other findings. ID Date Data Source [id number] 03/18/2020 04:17:00 PM EDT [facility] Name Value Range Interpretation Code Description Data Agueda rce(s) Supporting Document(s) Sodium 141 mmol/L 136-145 Normal (applies to non-numeric resul ts) [facility] Potassium 3.5-5.1 Normal (applies to non-numeric resul ts) [facility] Chloride 103 mmol/L 98-107 Normal (applies to non-numeric resul ts) [facility] Carbon Dioxide CO2 21-32 Normal (applies to non-numer ic results) [facility] Anion Gap 5.0-16.0 Normal (applies to non-numeric resul ts) [facility] BUN 25 mg/dL 7-18 Above high normal [facility] ospital Creatinine,Serum 0.8-1.5 Normal (applies to non-numeric results) [facility] GFR >60 Normal (applies to non-numeric results) [facility] Glucose Level 131 mg/dL 60-99 Above high normal [facility] Reference range is only applicable when patient is fasting Note the following drug interference: Sulfasalazine Sulfapyridine Can see falsely depressed Can see falsely elevated result with up to 17% results with up to 11% decrease in measurement increase in measurement Recommend patients be collected for this test prior to administration of either drug. Calcium 8.5-10.1 Normal (applies to non-numeric resul ts) [facility] ID Date Data Source [id number] 03/17/2020 01:38:20 PM EDT [facility] Name Value Range Interpretation Code Description Data Agueda rce(s) Supporting Document(s) Progress Note [facility] [id number] lbm [file] [id number] ID Date Data Source [id number] 03/17/2020 01:36:18 PM EDT [facility] Name Value Range Interpretation Code Description Data Agueda rce(s) Supporting Document(s) Color of Cerebral spinal fluid [facility] Clarity of Cerebral spinal fluid [facility] Tube 4 Erythrocytes [#/volume] in Cerebral spinal fluid by Manual count <2 [facility] Nucleated cells [#/volume] in Cerebral spinal fluid by Manual count <5 [facility] Microscopic observation [Identifier] in Cerebral spinal fluid [facility] Cell count and Differential panel - Cerebral spinal fluid [facility] ID Date Data Source [id number] 03/17/2020 01:56:19 PM [facility] Value Range Interpretation Code Description Data Agueda rce(s) Supporting Document(s) Glucose [Mass/volume] in Cerebral spinal fluid 88 mg/dL 40-70 H [facility] ID Date Data Source [id number] 03/17/2020 01:56:19 PM [facility] Value Range Interpretation Code Description Data Agueda rce(s) Supporting Document(s) Protein [Mass/volume] in Cerebral spinal fluid 69 mg/dl 15-45 H [facility] ID Date Data Source [id number] 03/17/2020 11:33:16 AM [facility] Value Range Interpretation Code Description Data Agueda rce(s) Supporting Document(s) Prothrombin time (PT) 12.0 s 12.5-14.9 L [facility] INR in Platelet poor plasma by Coagulation assay 0.88 [facility] Routine intensity oral anticoagulation I NR is typically 2.0-3.0. Target INR must be clinically individualized. ID Date Data Source [id number] 03/17/2020 11:33:16 AM [facility] Value Range Interpretation Code Description Data Agueda rce(s) Supporting Document(s) aPTT in Platelet poor plasma by Coagulation assay 25.2 s 24.0-33. 0 [facility] ID Date Data Source [id number] 03/17/2020 11:37:45 AM [facility] Value Range Interpretation Code Description Data Aguead rce(s) Supporting Document(s) Bicarbonate [Moles/volume] in Serum 26 mmol/L 22-29 [facility] Chloride [Moles/volume] in Serum or Plasma 98 mmol/L 98-107 [facility] Creatinine [Mass/volume] in Serum or Plasma 1.08 mg/dL 0.70-1.20 [facility] Glucose [Mass/volume] in Serum or Plasma 110 mg/dL 70-140 [facility] Potassium [Moles/volume] in Serum or Plasma 4.7 mmol/L 3.4-5.1 [facility] Hemolyzed Sodium [Moles/volume] in Serum or Plasma 138 mmol/L 136-145 [facility] Urea nitrogen [Mass/volume] in Serum or Plasma 19 mg/dL 6-20 [facility] Anion gap 3 in Serum or Plasma 14 mmol/L 8-15 [facility] Osmolality of Serum or Plasma by calculation 289 mosm/kg 275-300 [facility] Creatinine/Urea nitrogen [Mass Ratio] in Serum or Plasma 18 [facility] Calcium [Mass/volume] in Serum or Plasma 9.0 mg/dL 8.6-10.0 [facility] Glomerular filtration rate/1.73 sq M pre dicted among non-blacks [Volume Rate/Area] in Serum or Plasma by Creatinine-based formula (MDRD) 82 mL/min/1.73m2 >60 [facility] Glomerular filtration rate/1.73 sq M pre dicted among blacks [Volume Rate/Area] in Serum or Plasma by Creatinine-based formula (MDRD) >60 [facility] ID Date Data Source [id number] 03/17/2020 12:15:55 PM EDT [facility] Name Value Range Interpretation Code Description Data Agueda rce(s) Supporting Document(s) Leukocytes [#/volume] in Blood by Automated count 10.6 10*3/uL 4-10 H [facility] Erythrocytes [#/volume] in Blood by Automated count 4.93 10*6/uL 4.6- 6.1 [facility] Hemoglobin [Mass/volume] in Blood 14.4 g/dL 13.5-18 [facility] Hematocrit [Volume Fraction] of Blood by Automated count 42.2 % 4 1-53 [facility] Erythrocyte mean corpuscular volume [Entitic volume] by Auto mated count 85.5 fL 80-96 [facility] Erythrocyte mean corpuscular hemoglobin [Entitic mass] by Automated count 29.1 pg 27-33 [facility] Erythrocyte mean corpuscular hemoglobin concentration [Mass/volume] by Automated count 34.0 g/dL 32.0-36.0 [facility] distribution width [Ratio] by Automated count 16.6 % 11.5-14.5 H [facility] Platelets [#/volume] in Blood by Automated count 278 10*3/uL 150-400 [facility] Differential cell count method - Blood [facility] Neutrophils/100 leukocytes in Blood by Automated count 82 % [facility] Lymphocytes/100 leukocytes in Blood by Automated count 15 % [facility] Monocytes/100 leukocytes in Blood by Automated count 2 % [facility] Neutrophils [#/volume] in Blood by Automated count 8.71 10*3/uL 1.8-7 .0 H [facility] Lymphocytes [#/volume] in Blood by Automated count 1.59 10*3/uL 1.2-4 .0 [facility] Monocytes [#/volume] in Blood by Automated count 0.20 10*3/uL 0-0.8 [facility] Metamyelocytes/100 leukocytes in Blood by Manual count 1 % [facility] Metamyelocytes [#/volume] in Blood by Manual count 0.10 10*3/uL 0-0 H [facility] ID Date Data Source [id number] 03/14/2020 08:09:28 AM EDT [facility] Name Value Range Interpretation Code Description Data Agueda rce(s) Supporting Document(s) Specimen source [Identifier] of Unspecified specimen [facility] SARS-CoV-2 RNA 2018 nCoV Real-Time RT-PCR: NOT DETECTED [facility] Assay Performed [facility] Initial validation was performed by the Centers for Disease Control and Prevention (CDC) and additionally validated by the Dept. of Pathology [facility]. Negative results do not preclude SARS-CoV-2 infection and should not be used as the sole basis for patient management decisions.Additional information is available on the following FDA websites for health care providers and patients. https://www.fda.gov/media/022278/download, https://www.fda.gov/media/165995/download. Patients first test for [facility] Patient employed in healthcare setting [facility] Patient has symptoms related to [facility] When did you start to experience these symptoms [Date and time] [Phen X] [facility] Patient was hospitalized because of this condition [facility] patient was admitted to ICU for [facility] Patient resides in a congregate care setting [facility] status [facility] ID Date Data Source [id number] 03/13/2020 08:55:00 AM EDT [facility] Name Value Range Interpretation Code Description Data Agueda rce(s) Supporting Document(s) SARS-CoV-2 RNA [facility] This lab was ordered by [facility] and reported by [facility]. ID Date Data Source [id number] 03/13/2020 08:52:31 AM T [facility] Name Value Range Interpretation Code Description Data Agueda rce(s) Supporting Document(s) Progress Note [facility] HPLSUa2uWeXJKvCn28/YUTlvJSVdx9LqAEmbYLc3WAtfXRFhJ2UkJLN3cB3vTME4HOzGBcOnRvAbXJHg lbm [file] AgICAgICAgICAgICAgICAgICAgICAgICAgICAgICAg ICAgICAgICAgICAgICAgICAgICAgICAgICAgICAgICAgICAgICAgICAgICAgICAgICAgDQogICAgICAg ICAgICAgICAgICAgICAgICAgICAgICAgICAgICAgICAgICAgICAgICAgICAgICAgICAgICAgICAgICAg ICAgICAgICAgICAgICAgICAgICAgICAgICAgICAgIC AgDQogICAgICAgICAgICAgICAgICAgICAgICAgICAgICAgICAgICAgICAgICAgICAgICAgICAgICAgIC AgICAgICAgICAgICAgICAgICAgICAgICAgICAgICAgICAgICAgICAgICAgDQogICAgICAgICAgICAgIC AgICAgICAgICAgICAgICAgICAgICAgICAgICAgICAg ICAgICAgICAgICAgICAgICAgICAgICAgICAgICAgICAgICAgICAgICAgICAgICAgICAgICAgDQogICAg ICAgICAgICAgICAgICAgICAgICAgICAgICAgICAgICAgICAgICAgICAgICAgICAgICAgICAgICAgICAg ICAgICAgICAgICAgICAgICAgICAgICAgICAgICAgIC AgICAgDQogICAgICAgICAgICAgICAgICAgICAgICAgICAgICAgICAgICAgICAgICAgICAgICAgICAgIC AgICAgICAgICAgICAgICAgICAgICAgICAgICAgICAgICAgICAgICAgICAgICAgDQogICAgICAgICAgIC AgICAgICAgICAgICAgICAgICAgICAgICAgICAgICAg ICAgICAgICAgICAgICAgICAgICAgICAgICAgICAgICAgICAgICAgICAgICAgICAgICAgICAgICAgDQog ICAgICAgICAgICAgICAgICAgICAgICAgICAgICAgICAgICAgICAgICAgICAgICAgICAgICAgICAgICAg ICAgICAgICAgICAgICAgICAgICAgICAgICAgICAgIC AgICAgICAgDQogICAgICAgICAgICAgICAgICAgICAgICAgICAgICAgICAgICAgICAgICAgICAgICAgIC AgICAgICAgICAgICAgICAgICAgICAgICAgICAgICAgICAgICAgICAgICAgICAgICAgDQogICAgICAgIC AgICAgICAgICAgICAgICAgICAgICAgICAgICAgICAg ICAgICAgICAgICAgICAgICAgICAgICAgICAgICAgICAgICAgICAgICAgICAgICAgICAgICAgICAgICAg RDj1V8zrFYWcTMYpDF3wFCk7Oz5+PPyDKwHdDKA1hzZjsC8YGB8cc0PgQBpyIEMcn8VtRXi4LD1LCPEv LXwkAO1PDYcquv9WEZElVDSimCJWz0ofIsLkTCV2YP YlAlxvTK2NQDGgG3gretBxLMBvRGYHCY4ERqUxH9RxvZ31OPVOYu1+HPlzhjQoImeLRoO8SHRcm9QlKK o1HY3EDLYoWivio5NbUrRbCLTONAriPJ8ROGL9TYZhEKBmFj0NJEJmL275zhMiKH8OWf1UPsHbYE8dav 5NQpSeRUGhQuoEQca1YHepLI4QwOZcTEmXci8wyiPp rcSJi2MdftGtlJQNwRsrYYkwU6BqOPyaLr4dIKTeRZKdFb4qMRNeCPJ2UcIuACFUCL7ZYQUlVHSxvYAh AJTmFOTACY5ZFMvvHAP9HAAxdcEvvHHaYGnzUV9UXILopnViHOaeRHPZJXb+Zu9SIJ3mf0UdNPxdLAJd LH5dhw0YAIiNFrXvV7Y7aCQoM8K8NYtgTh3OCLCwGM LzIXnvIOCVVEghUB1IRH6gdbD5ZD3BsRKiURTgXJGbqNMaIPj2E54lrTBaUKhbDH2GINO+Alban+Pg0KIC LmMJNdNPXkIoRhBDBBSjNnC2LsS8ORj7UaD8SsPJ02bIdnicBpAZhtMA2LAD8uLVShOISESH9DkRFkzA 0lykJiTAWvOOCWVnBlX53cxDJpVAGiWBW1TNCbLs9X RTYxV7AlhpPiyFiuwwEtBINoPDHNKL2UKWasgqYfnPWwaLhkIO92hHftWU8IXz5VKuFjES9biu1UsSIe Zp1GZPUdHh3JBIWqUQJyLRSxYYA4KBUvEySrKHkwIKJpEFRpXZP1LBRtLSSiOU9KWgZgSDChZZsfHrSb RQMjKCMwjp1DWQTiCPVwYRt8GNKlZIMfEUWwENuxGB XsPTIoVDT6SVKsTKSgSN9XIeFoZVYtJEN4MBggRJKzMIZtav2QLTKrHFJkAtCbIyOrRNMdVSHiMFoaMC QyLCIwUUEoWODaCYHsJF3FQhQtYWBfQSAnWVfoQHDfEMVdyq4SSALoRZYtIbEaCqHbRPDiHBLxBSjoPZ GgNYU5DCr1FSObYQIrSQ2KQfCuESZuDDY8AOlsCCUx ZQSdml1PNDVeNBWyOJp7EBPsTDZwQDCcEUgaFPFkPAF9VmQ5PTWgRESlFZ0WMpJaBNCqSYS9ZVSrCGFr XUMobh4PUHXpTCWlPwz3XTWyIVDyXNLxZCtjOSUwTVP8FZG6BZHbSHViUP6VRwSgUKSaUFytZTJkFQWx PTBzfy7PMICgRYOnCcO1DRMpANBpJFBnVXpxQIThWR S0FJn1VRMbWHBvII4HLlLsTCSvXYagVRvxDHGkJYFjwd1VLRNjJKYkAUNbRLEuQVBnKFIrYMi7wcUtzT IvIAq7SO8PY1AvzbKpBuQRHn3Sd437LXVzUZNuXw7WV6ynVd5uGHHyKGRUXd4KRVp2QICmRUZbJNqnJW B4F8GtQZR0B5OxEQYeLCa2EOzuPzQ+IDxlNDFhYTA5 VLM2CYPwBUF5XEKqBUX2TIJ8IXPtXWXzBc2lTPKKXd9+APkjwHWqpBhpOCMONwM4KBD4XOtxJHZTAd4V ID Date Data Source [id number] 03/11/2020 04:42:38 PM EDT [facility] Name Value Range Interpretation Code Description Data Agueda rce(s) Supporting Document(s) Progress Note [facility] IOFSNb0tVcBAZeFh72/CXIxhSPRqe9XxJRqnIQs2UZeyESBnI1LuTVW1dY1bYDG4HDfFCqXiUuVfDWKl lbm [file] J0WtP5MqDiLYUlTlgiUgmpXQV+GY7zWWw+Hy5Bg7NgwgH5hyPvZKbwZOY0Yl0FLQKHK0PHGi== ID Date Data Source [id number] 03/03/2020 09:27:17 AM EDT [facility] Name Value Range Interpretation Code Description Data Agueda rce(s) Supporting Document(s) Progress Note [facility] YJBWJa3lNcVIUtOf13/ASEmxRJQib3UwEUheLOm6GRzvYFZrQ4BfDTJ4tG6iSQW2YEdAAiQhJuHiUFKs lbm [file] MGl2GDkvHmMuUkm+HT9kFSf+Fl6Yx1MajgD2ixIuNKdhNUbzVY8GXMMWM5FKRs== ID Date Data Source [id number] 02/10/2020 09:50:44 AM EDT [facility] Name Value Range Interpretation Code Description Data Agueda rce(s) Supporting Document(s) Progress Note [facility] ACJYLi0eNsLKIdUq88/LZGkgMTHia7MtRAumPKe1EEegJOUsM4JzVPQ7uA8rBSH8AEwYJhXeYjKhZRNl lbm [file] ozPgJaFCchXT1hVRSAWh3+DVqddYPzsUtzGYTBUxZ9PWZ4OEggOVBWUc7Z ID Date Data Source [id number] 02/07/2020 10:18:14 AM EDT [facility] Name Value Range Interpretation Code Description Data Agueda rce(s) Supporting Document(s) Progress Note [facility] ZLBDKa2vKaFLVpOr65/LRMmcMFSrr4MyCThtUQj3KTuuTLXkO3MsULY9bT6pDMI6UBoUHnPlSqUcCFD6 lbm YvOncDCkBbUZIpCglMDgLmMEfwKbammXTaYB8JzLD4LXOqF63fOPXrFQPsP9KkNNW5LZD+Ef4VSQDzrR QxKX2SBahJ5Jzew8q7LF7+YP+BwIAhLZKYpCiSMoYBrpMuC+fmmf3Zj5YWjhzNKwqeo+Mina+fejJMrycS [file] SfWM5MHz9WRjG1PNW0tUPnNj0KXRygJaGCClLbZG5QEDs= ID Date Data Source [id number] 01/06/2020 09:21:12 AM EDT [facility] Name Value Range Interpretation Code Description Data Agueda rce(s) Supporting Document(s) Progress Note [facility] XPMWFt0hAxZNIlDp68/XIZyyBWNjc5CyMQkbAYp5OFsxAZNrC9QdZTQ8eH7tAML6UIoZWkRkDcDpPtQ0 lbm [file] /zNJziGv0oKaveZ+gRTFfkAYlTb0P0uBkX2uQMP6olqEXqN6CjdPtwWE9hhQm0EBQpkvLdD9IuLL/surgical services assistant N2T3xo5VLi4uojizUSs95gf72G/mV7NWJSXj6K/YBCB0Bz5a/eTZ3Ees823GrjomkcUUEBTpWeLorHrt xaEBQYAGV2wgliDQtE1GBwEH45O18gsG+Holloway+Dp+6Av A+87vLgh+IgG8+PYGfxxNE7d2BT4ZlIE3tQ/Qf1R/aea18SqwJdHeDtfmG90KDR4qrN3u24CQwwesxZM 11EJezxsM2EuQUtx7us44QZZvGLuF2ZLNoy0C0DqcjX8h5mVgH1RPxOJxNIQ4Z/M5TDN92pX73d3De6D vLHjLvoegE7AL1XxwTK5sLu6hlmY1JPz+xD332L+nn zOWq2Y0TkE4LV7q6d5qaXAokYioHUKPWEegm+KxWaqrUvYvKxnc1DDPQ9cDNCAMYrln1AnCwzR7Sjjqw 6HkTVGK1laHcKvJ3ljVNAY4kzV+QtYmrKYcOammqJ6rJqcjS7GimYT5eTk7sWnfi51iig0zX5dZSdYsh Pj+HLB4/3d2IizV7HxlVJtXvOplCyJ38Eeydng/Frankie [file] AgICAgICAgICAgICAgICAgICAgICAgICAgICAgICAg ICAgICAgICAgICAgICAgICAgICAgICAgICAgICAgICAgDQogICAgICAgICAgICAgICAgICAgICAgICAg ICAgICAgICAgICAgICAgICAgICAgICAgICAgICAgICAgICAgICAgICAgICAgICAgICAgICAgICAgICAg ICAgICAgICAgICAgICAgDQogICAgICAgICAgICAgIC AgICAgICAgICAgICAgICAgICAgICAgICAgICAgICAgICAgICAgICAgICAgICAgICAgICAgICAgICAgIC AgICAgICAgICAgICAgICAgICAgICAgICAgDQogICAgICAgICAgICAgICAgICAgICAgICAgICAgICAgIC AgICAgICAgICAgICAgICAgICAgICAgICAgICAgICAg ICAgICAgICAgICAgICAgICAgICAgICAgICAgICAgICAgICAgDQogICAgICAgICAgICAgICAgICAgICAg ICAgICAgICAgICAgICAgICAgICAgICAgICAgICAgICAgICAgICAgICAgICAgICAgICAgICAgICAgICAg ICAgICAgICAgICAgICAgICAgDQogICAgICAgICAgIC AgICAgICAgICAgICAgICAgICAgICAgICAgICAgICAgICAgICAgICAgICAgICAgICAgICAgICAgICAgIC AgICAgICAgICAgICAgICAgICAgICAgICAgICAgDQogICAgICAgICAgICAgICAgICAgICAgICAgICAgIC AgICAgICAgICAgICAgICAgICAgICAgICAgICAgICAg ICAgICAgICAgICAgICAgICAgICAgICAgICAgICAgICAgICAgICAgDQogICAgICAgICAgICAgICAgICAg ICAgICAgICAgICAgICAgICAgICAgICAgICAgICAgICAgICAgICAgICAgICAgICAgICAgICAgICAgICAg ICAgICAgICAgICAgICAgICAgICAgDQogICAgICAgIC AgICAgICAgICAgICAgICAgICAgICAgICAgICAgICAgICAgICAgICAgICAgICAgICAgICAgICAgICAgIC AgICAgICAgICAgICAgICAgICAgICAgICAgICAgICAgDQogICAgICAgICAgICAgICAgICAgICAgICAgIC AgICAgICAgICAgICAgICAgICAgICAgICAgICAgICAg UPMgBEEmXHGnNWKqVXCoRBGzKZEvGSKyUOIgYEJsJBFyVUOcGUPfLTYnCAr2H2niXLVwVIJcQH9oTAp1 Jz8+JFbNAcDcENF1nrMhaE7QUC2jr1ZqCCjsOIErt6FkDXw7ZM1MRXDeTNgaQS4PAXxmiw9MHSFnXEZj hOFRw2puRhXdBSI8GRWfXwdfCR9ZEPDaS0xgbdBoCB UrJZSXKArlOSNHMCthODGOWIIaEMRxHqSbFbIkTKUlFNDwTDQFBBH4DRNdAmGuPELzAPGzWzOcKRQLHG 5PHeKhZ0PjpI38WGjWSs7+XPuwnzIcAosQYuS2JVZuw6UwFWn4YJ5NXSKhRerst5RnMmcuBRUAEQxiTO 9PJUN6KBJ4PMQpUb7KPCPjL229hmQaJM0MKs2FBmCp RJ0kxk9BSmrjXTQeEhcFYcg2GMnhGS2UhDIkMXqYid3qslWespUPs0GuxcKxhXLHDK3ktFBLWL3srLWe XBYHMQTqjWC9GwE7JwQnGsJpVEW9ZYGhZZ1fGQfbQL1SPFQ6IFgfUCNkYWQtK8uTEoRtENYgAXZzyIcb BI0QJoVxK6IysoDlrTMnNZIhKEEZRs3+DQplbmRvYm gGWcOkWFJcn0TaTKz6XS8YRHGvDBpfNO2MCLYosY1iYLtuCM1KWxFuMdTlERDXSnAzG62ojNMqMAo9C0 VtYmVkZGVkRmlsZXMgPDwvTmFtZXMgWyBdDQogID4+ID4+NKsuNY6OIIsotnFdNVHoIf4RMFKnRXDyEA 8cNRApYIVaZ2V2ySlsOGISIrTrR2tgshmkZN8xGADe V401gXoxchErQON6RKZtYz8QIHAuKPO6ZNTphQPuUzweTNSKCUduHA5XoMVxIRM2dM6wHAsfNQFgXYXm E9wWLmRdwTfvRX63zFskqvNqnFQkPSw+Yf3GGT1tb8AcWBq6wpJaDFdlXHJkLMojNVEeYXIpAGAmBVU8 XTJ1QDNKBwCpMLYnRUMeZJxzZQCpSCTjok3UTZEwAJ Q7QfToIbTmXSJyUCDxNZbpAWReFXS9AAS8APKmBKEbIO6CJbVzTLDsCDJjYVarMPYxQAZrgo2SQERtWE VkELsxGoFoPYVsZWKpAUlyDAOsZWN7USKwWYCxOWYeER6JEiFsAQAsRDx4XZHeMGUxBRPtso3UUYNrSR XhOHsjUNXsPATeOJEgHXrcOYZfNDGtQDW6JYWnUFAr QU9WLyXdZRXbXYLlYyWwMHCnOUEkcg6UWKRiUKWlVEG7ZjOnYOTfMDUpTViaGJJyPCR4HZT0QSZyKWKg TY8OZpOzMPCcCMu2SPOcQZAwKEMirm0UZSPnNUNoLMD6YxJcXMLbWVOrCGioVGZjFSUfCJe9EYQlYJQd PG2ENvEdLBLjKgYkZXHfBPQuZWOzrq5SPKAtOTXeId D2LsAdHSKxFNBeCAjgSCGdORS4XcraOPRePLKwFC9CSdYdQJHaFkV2LZvkEEQbESUhza9IANXwWEIsDq IrCHSxSOHcQPNxGFqwTQLsWKNxQno5KPOtZXSnII5GAaUaINEnNdH2MAXkPHHhJWNkqr4OUAIlYGZsNd q7FDGoPVEqACQsVHgtBYKoABY7UADgVHGmSOPcPJ6F MiUlZWJxZzPmZjVlDSViZZKhfu1FGSOlNEXbIWU6JKMiCITkQTHgTRohIUNgATY1DNp2CONcRNCzMC7Q NjZrCZKyTaM3LETeIWKsDBObex1GAUUuMJJ1KeGpMPDdVLOvGXBiFHviOKKrCFUcTAE8MVZxQVHlRX1G DbYnIMIaIsUyCBAkCQXfWNXlxw3VCOCbHCH0KCp4MX PmWSVwDZWoMHguVWXtQWT9ZPrxOQYcIPPoQN8KIhXlPPEzEzV2PaZqVIVeXYHxrf0BVWFjGIF1SzCvPn BsBHDrTHQcPOlkDYFoXNJ5DxOiLTRpFSBnRY1HStCdQUElGaL2NRepYLXdATPqku0ZIIVsKQP2BDKmCW YkISGsAKDkBEblVUQoGGH0NKrfQYJlZXXkWV0DAgVu TYBtMsylPahqKEZbDLYtvr4QlTHjxGfnaz9JDYnDVt3LrYcnXWFcFVglKw5bvKH8RONhFBGZTt8OgzZq BOMmKYRDKPnzQRUgGHVxLGS3UCC7YMWtVMfiZsIiBCipVjNcGSK3OPZbFss1GoH1YYVePaR7ArxtGOQ6 WBS0FPSrCXUzERD9XGycOOSxOkW+BC1iRNg+Av9Dp6FzqqF5arGcWSx8DIG8Hr9RPFSSQ2LPZf== ID Date Data Source [id number] 11/01/2019 04:51:00 PM EDT [facility] Name Value Range Interpretation Code Description Data Agueda rce(s) Supporting Document(s) Iron FE Level 73 ug/dL 49-181 Normal (applies to non-numeric re sults) [facility] Test Performed By: [facility] [address] [place] [address] Director: Patsy Cardozo MD Total Iron Binding Capacity 343 ug/dL 261-462 Norm al (applies to non-numeric results) [facility] Test Performed By: [facility] [address] [place] [address] Director: Patsy Cardozo MD %Iron Saturation 12.0-55.0 Normal (applies to non-numeric results) [facility] Test Performed By: [facility] [address] [place] [address] Director: Patsy Cardozo MD ID Date Data Source [id number] 11/01/2019 04:51:00 PM EDT [facility] Value Range Interpretation Code Description Data Agueda rce(s) Supporting Document(s) Ferritin 113 ng/mL 17.9-464.0 Normal (applies to non-numeric resul ts) [facility] Test Performed By: [facility] [address] [place] [address] Director: Patsy Cardozo MD ID Date Data Source [id number] 11/01/2019 01:30:00 PM EDT [facility] Name Value Range Interpretation Code Description Data Agueda rce(s) Supporting Document(s) Bilirubin,Total 0.1-1.9 Normal (applies to non-numeric results) [facility] Bilirubin,Direct 0.05-0.20 Normal (applies to non-numeric results) [facility] SGOT(AST) 32 U/L 15-37 Normal (applies to non-numeric resul ts) [facility] Note the following drug interference: Sulfasalazine Sulfapyridine Can see falsely depressed Can see falsely elevated result with up to 10% results with up to 10% decrease in measurement increase in measurement Recommend patients be collected for this test prior to administration of either drug. SGPT(ALT) 89 U/L 12-78 Above high normal [facility] Note the following drug interference: Sulfasalazine Sulfapyridine Can see falsely depressed Can see falsely elevated result with up to 29% results with up to 10% decrease in measurement increase in measurement Recommend patients be collected for this test prior to administration of either drug. Alkaline Phosphatase 105 U/L 38-126 Normal (applies to non-num emilia results) [facility] can increase Alkaline Phosp le vels up to 2 times the normal adult value. Normal values for children and adolescents are 2 to 3 times the normal adult value. Total Protein 6.0-8.2 Normal (applies to non-numeric re sults) [facility] Albumin Level 3.4-5.0 Normal (applies to non-numeric re sults) [facility] ID Date Data Source [id number] 11/08/2019 12:06:00 PM EDT [facility] Name Value Range Interpretation Code Description Data Agueda rce(s) Supporting Document(s) Hepatitis A Ab,IgG result () Normal (applies to no n-numeric results) [facility] Hepatitis A IgG Ab, S was cancelled on 0 11/08/2019 at 09:27; Unable to perform. No refrigerated specimen to use for Add on Test Performed by: [address] [address] Community Resource Consultant: Noe Williamson M.D. Ph.D.; CLIA# [id number] ID Date Data Source [id number] 11/09/2019 09:36:00 AM EDT [facility] Name Value Range Interpretation Code Description Data Agueda rce(s) Supporting Document(s) Hepatitis B Core Tot Ab,S res Negative No rmal (applies to non-numeric results) [facility] Test Performed by: [place] [address] Community Resource Consultant: Noe Williamson M.D. Ph.D.; CLIA# [id number] ID Date Data Source [id number] 11/08/2019 11:32:00 AM EDT [facility] Name Value Range Interpretation Code Description Data Agueda rce(s) Supporting Document(s) Hepatitis B Core Tot Ab,S res Negative No rmal (applies to non-numeric results) [facility] Test Performed by: [place] [address] Community Resource Consultant: Noe Williamson M.D. Ph.D.; CLIA# [id number] ID Date Data Source [id number] 11/08/2019 11:32:00 AM EDT [facility] Value Range Interpretation Code Description Data Agueda rce(s) Supporting Document(s) Hepatitis A Ab,IgG result () Normal (applies to no n-numeric results) [facility] Hepatitis A IgG Ab, S was cancelled on 0 11/08/2019 at 09:27; Unable to perform. No refrigerated specimen to use for Add on Test Performed by: [place] [address] Community Resource Consultant: Noe Williamson M.D. Ph.D.; CLIA# [id number] ID Date Data Source [id number] 11/01/2019 06:33:00 PM EDT [facility] Name Value Range Interpretation Code Description Data Agueda rce(s) Supporting Document(s) FESAT Iron result 73 ug/dL 49-181 Normal (applies to non-numeri c results) [facility] Test Performed By: [facility] [address] [place] [address] Director: Patsy Cardozo MD FESAT TIBC result 343 ug/dL 261-462 Normal (applies to non-numeri c results) [facility] Test Performed By: [facility] [address] [place] [address] Director: Patsy Cardozo MD FESAT %Iron Saturation result 12.0-55.0 No rmal (applies to non-numeric results) [facility] Test Performed By: [facility] [address] [place] [address] Director: Patsy Cardozo MD ID Date Data Source [id number] 11/01/2019 06:33:00 PM EDT [facility] Value Range Interpretation Code Description Data Agueda rce(s) Supporting Document(s) Ferritin result 113 ng/mL 17.9-464.0 Normal (applies to non-numeric results) [facility] Test Performed By: [facility] [address] [place] [address] Director: Patsy Cardozo MD ID Date Data Source [id number] 11/01/2019 06:33:00 PM EDT [facility] Value Range Interpretation Code Description Data Agueda rce(s) Supporting Document(s) Hepatitis C Virus Ab result Nonreactive Norm al (applies to non-numeric results) [facility] Test Performed By: [facility] [address] [place] [address] Director: Patsy Cardozo MD ID Date Data Source [id number] 11/01/2019 06:33:00 PM EDT [facility] Value Range Interpretation Code Description Data Agueda rce(s) Supporting Document(s) Hep Bs Ag result T-Test Nonreactive Normal (applies to non -numeric results) [facility] Test Performed By: [facility] [address] [place] [address] Director: Patsy Cardozo MD ID Date Data Source [id number] 11/01/2019 06:33:00 PM EDT [facility] Value Range Interpretation Code Description Data Agueda rce(s) Supporting Document(s) Hepatitis B Surface Ab result Normal (applies t o non-numeric results) [facility] Test Performed By: [facility] [address] [place] [address] Director: Patsy Cardozo MD Reference Value Protected Immunity: Reactive Non-Immunity : Nonreactive ID Date Data Source [id number] 11/01/2019 05:49:00 PM EDT [facility] Name Value Range Interpretation Code Description Data Agueda rce(s) Supporting Document(s) Hep C Ab-T Test Nonreactive Normal (applies to non-numeric results) [facility] Test Performed By: [facility] [address] [place] [address] Director: Patsy Cardozo MD ID Date Data Source [id number] 11/01/2019 05:49:00 PM EDT [facility] Name Value Range Interpretation Code Description Data Agueda rce(s) Supporting Document(s) Hep Bs Ag Result T-Test Nonreactive Normal (applies to non -numeric results) [facility] Test Performed By: [facility] [address] [place] [address] Director: Patsy Cardozo MD ID Date Data Source [id number] 11/01/2019 05:49:00 PM EDT [facility] Name Value Range Interpretation Code Description Data Agueda rce(s) Supporting Document(s) Hep Bs Ab Numeric result Normal (applies to non -numeric results) [facility] Reference Value Protected Immunity: >10 mIU/mL Non-Immunity : <10 mIU/mL Hep Bs Ab result T-Test Normal (applies to non- numeric results) [facility] Test Performed By: [facility] [address] [place] [address] Director: Patsy Cardozo MD Reference Value Protected Immunity: Reactive Non-Immunity : Nonreactive ID Date Data Source [id number] 10/07/2019 12:20:00 PM EDT [facility] ([facility], ) Name Value Range Interpretation Code Description Data Agueda rce(s) Supporting Document(s) ABG pH (Arterial) 7.395 units 7.350-7.450 Normal (applie s to non-numeric results) [facility] ([facility], ) ABG Partial Pressure Co2 35.0 mmHg 35.0-45.0 Normal (applies to non-numeric results) [facility] ([facility]) ABG Partial Pressure O2 73.8 mmHg 75.0-100.0 Below low normal [facility] ([facility]) ABG Hco3 21.0 meq/L 22.0-26.0 Below low normal [facility] ( [facility]) ABG Base Excess -3.2 Below low normal [facility] ([facility]) ABG Total Co2 22.0 meq/L 22.0-29.0 Normal (applies to non-numeric re sults) [facility] ([facility]) ABG Standard Hco3 21.7 meq/L 22.0-26.0 Below low normal M EDENT ([facility]) ABG O2 Saturation 94.4 % 95.0-99.0 Below low normal M EDENT ([facility]) ID Date Data Source [id number] 10/09/2019 02:16:00 PM EDT [facility] Hematopathology Report See Addendum [facility] wName: JHON PATEMRN: [id number] Number: [id number] Date: 10/07/2019 10:30Received Date: 10/08/2019 14:35Physician(s): JOHNNA [...] 10/14/2019 ADDENDUM:Cytogenetic analysis of this specimen (see [id number]) yielded the followingresult:Karyotype: 46,XY[20] (normal male karyotype). Addendum Electronically Signed By: Mateo Atkins M.D., Ph.D. 10/14/2019 16:41 ProceduresFlow Cytometry Date Ordered:10/08/2019 Status: Signed Out10/09/2019 InterpretationPERIPHERAL BLOOD: CBC performed at [facility] on 10/07/19.WBC 7.1 K/uLRBC 4.92 M/uLHgb 14.2 g/dLHct 42.7 %MCV 86.8 fLMCH 28.9 pgMCHC 33.3 g/dLRDW 13.8 %Platelets 272 K/uLDifferential Count (100 cells):35 % Neutrophils 6 % Eosinophils 1 % Usmhzyouk44 % Lymphocytes 3 % Monocytes-------100 % A peripheral blood film is reviewed. BONE MARROW ASPIRATE:Differential Count (100 cells):38 % Erythroid Precursors 2 % Blasts 1 % Promyelocytes 7 % N. Lnwnrnucxc35 % N. Metamyelocytes and Band Forms27 % Neutrophils 1 % Yqlrjtrxhdp62 % Lymphocytes 2 % Monocytes--------100 % Lymphoid Panel: The following markers were assayed: CD45 (gate), CD2, CD3, CD4, CD5, CD7,CD8, CD10, CD19, CD20,CD33, CD34, CD38, CD56, CD57, CD64, CD117, CD123, HLA-DR, [place], andLambda.# events: [id number]: 97%Flow Cytometry Dif ferential (CD45/SSC)Lymphocyte Jefferson: 10%CD45 dim Jefferson: 2%Monocyte Jefferson: 2%Granulocyte Jefferson: 74%Nucleated/Erythroid Jefferson: 7%The lymphocyte gate showsB- cells (CD19): 7%T-cells (CD3): 88%NK-cells (CD3-/CD56+): 3%[place]/Lambda Ratio: 1.3CD4/CD8 Ratio: 0.9Results: (expressed as % of lymphocyte gate)T-cell Markers: CD2 = 89, CD3 = 88, CD3/CD4 = 41, CD3/CD8 = 45, CD5 = 86,CD7 = 83, CD3/57 = 15B-cell markers: [place] = 4, Lambda = 2, CD19 = 6, CD20 = 11, CD19/10 = 2,CD19/CD5 = 1, CD38/CD20 = 7Light chain as % of B-Cells: CD19/[place] = 46, CD19/Lambda = 30,CD19/CD5/[place] = 6, CD19/CD5/Lambda = 1CD19/CD10/[place] = 11, CD19/CD10/Lambda = 10NK cell Markers: CD56 = 6, CD57 = 13Other Markers: CD10 = 3, CD38 = 44Results: (expressed as % of CD45 dim gate)T-cell Markers: CD2 = 39, CD3 = 31, CD3/CD4 = 17, CD3/CD8 = 18, CD5 = 3,CD7 = 37, CD3/57 = 9B-cell markers: [place] = 5, Lambda = 1, CD19 = 51, CD20 = 9, CD19/10 = 56,CD19/CD5 = 0, CD38/CD20 = 9Light chain as % of B-Cells: CD19/[place] = 4, CD19/Lambda = 1,CD19/CD10/[place] = 5, CD19/CD10/Lambda = 1NK cell Markers: CD56 = 3, CD57 = 12Basophil Markers: CD123 (HLA-DR-) = 3Other Markers: CD10 = 61, CD38 = 96, CD33 = 25, CD34 = 42, CD64 = 6, CD117= 14, CD123 = 33, HLA-DR = 83Myeloma Panel The following markers were assayed: CD45 (cell gate), CD138 (plasma cellgate), CD19, CD20, CD38, CD56, cytoplasmic [place], and cytoplasmic Lambda.(Please note, that Cytoplasmic [place] and Cytoplasmic Lambda are used todetect plasma cells, while surface [place] and Lambda are for lymphocytes).# events: [id number]: Routinely a minimum of 500,000 events are collected in each paneltube. Due to sample cellularity and/or processing this number was notachievable for this sample.Flow Cytometry Differential:Lymphocyte Jefferson: 12%CD45 dim Jefferson: 1%Monocyte Jefferson: 6%Granulocyte Jefferson: 66%NRBC Jefferson: 8%CD138 Plasma Cell Jefferson: 0%Results: (expressed as % of total CD138+ plasma cell gate)CD38 = 82, CD56 = 4, CD38/56 = 4, CD19 = 34, CD20 = 1Cytoplasmic [place]/CD138 = 45, Cytoplasmic Lambda/CD138 = [id number]-KxdwmclbHbbvsacrwli consist predominantly of T cells with normal [...] were developed and theirperformance characteristics determined by [facility] Pathology department.They have not been cleared or approved by the US Food and DrugAdministration. The FDA has determined that such clearance or approval isnot necessary. Name Value Range Interpretation Code Description Data Agueda rce(s) Supporting Document(s) ID Date Data Source [id number] 10/09/2019 10:48:49 AM EDT [facility] Name Value Range Interpretation Code Description Data 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 Assess for clonalplasma cells or a paraprotein.TEST REQUESTED/PERFORMED: Karyotype Analysis and Fluorescence in situhybridization - FISH DiagnosisCYTOGENETIC RESULTS: 46,XY[20]INTERPRETATION: A normal male karyotype was observed in twenty metaphases analyzed. Withinthe limits of the resolution of this karyotype analysis, no structuraland/ or numerical chromosome aberration was detected. The FISH study wascanceled by Dr. Ambrose Mathis. Please correlate with concurrent Hematopathologyreport ([id number]).Electronically Signed By Lupe Mcadams, Ph.D., [facility], Director ofCytogenetics 10/11/2019 11:51:24Gross DescriptionDATA: SPECIMEN TYPE: BONE MARROW CULTURE TYPE: 24 HOUR UNSTIMULATED METAPHASES COUNTED AND ANALYZED: 20 METAPHASES KARYOTYPED: 2BAND RESOLUTION: 350-500ISCN Nomenclature: 46,XY[20] Name Value Range Interpretation Code Description Data Agueda rce(s) Supporting Document(s) ID Date Data Source [id number] 09/11/2019 04:20:00 PM EDT [facility] Name: JHON PATE [facility] Rec #: [id number] : 1975 Age/Sex: 44M Date of Service: 09/11/19 PHYSICIAN CHART Physician Documentation Name: Jhon Pate Age: 44 yrs Sex: [...] He is followed [facility] in [facility]. He is also being worked up by [...] he/she has never smoked tobacco. Preferred Language: Trinidadian. ROS: 17:27 Constitutional: See HPI. Cardiovascular: See [...] 35.73 (106.59 k g, 172.72 cm) md1 [place] Coma Score: 17:28 Eye Response: spontaneous(4). Verbal Response: oriented(5). cpg Motor Response: obeys commands(6). Total: 15. MDM: 16:29 Patient medically screened. cpg 18:05 Case presented to: Dr. Rosasna Garnett. Data reviewed: vital cpg signs, nurses [...] panel is reassuring, I will tested for [place] at 19 and discharge him on self-isolation. [...] 7.6; HGB 15.9; HCT 45.9; PLT 323. [facility] 09/10 16:47 Order name: Comprehensive Metabolic Prof.; Complete Time: cpg 18:05 09/10 18:05 Interpretation: NA 136; K 3.8; CL 103; CO2 27.0; BUN 18; cpg GAP 6.0; CREAT 1.07; GLU 105. 09/10 16:47 Order name: D-Dimer; Complete Time: 18:03 [facility] 09/10 18:03 Interpretation: D-Dimer Quant 326. [facility] 09/10 16:47 Order name: Lipase; Complete Time: 18:05 [facility] 09/10 18:05 Interpretation: LIP 91. [facility] 09/10 16:47 Order name: MG (Magnesium); Complete Time: 18:05 [facility] 09/10 18:05 Interpretation: MG 2.10. cpg 09/10 16:47 Order name: Partial Thromboplastin Time; Complete Time: cpg 18:03 09/10 18:03 Interpretation: PTT 32.4. cpg 09/10 16:47 Order name: Prothrombin Time; Complete Time: 18:03 [facility] 09/10 18:03 Interpretation: INR 1.04; PT 11.9. cpg 09/10 16:47 Order name: Troponin I; Complete Time: 18:03 [facility] 09/10 18:03 Interpretation: TROP I < 0.045. [...] 16:47 Order name: Respiratory Panel (Use Workup) [facility] 09/10 17:18 Order name: Lactic Acid; Complete Time: 18:00 [facility] 09/10 18:00 Interpretation: Lactic 1.4. [facility] 09/10 17:18 Order name: VBG; Complete Time: 18:00 [facility] 09/10 18:00 Interpretation: VBG PH 7.40; VBG PCO2 43; VBG PO2 47; VBG cpg HCO3 26.6. 09/10 17:18 Order name: Blood Culture - Venous [facility] 09/10 16:47 Order name: CXR Portable (Chest Pain) [facility] 09/10 16:47 Order name: Emergency Room EKG Order - Use EKG Work-Up cpg /Quick Select; Complete Time: 17:11 09/10 16:47 Order name: Cardiology EKG Interpretation - Choose Reason cpg for Test 09/10 16:47 Order name: Iv Saline Lock; Complete Time: 17:11 [facility] 09/10 16:47 Order name: Place Patient On Monitor; Complete Time: 17:11 [facility] 09/10 16:47 Order name: Collect nasal swab; Complete Time: 17:11 [facility] 09/10 17:18 Order name: Oxygen - 2L Nasal Cannula; Complete Time: 17:27 cpg Dispensed Medications: 17:16 Drug: Aspirin 324 mg [aspirin 81 mg chewable tablet (4 alc tabs)] Route: PO; 18:15 Follow up: Response: No adverse reaction [facility] 17:23 Drug: Magnesium Sulfate 2 grams [magnesium sulfate 2 alc gram/50 mL (4 %) in water intravenous piggyback] Route: IVPB; Site: right antecubital; 18:14 Follow up: IV Status: Completed infusion; IV Intake: 100ml [facility] 18:03 Drug: Ventolin 8 [...] case. Signatures: Dispatcher [employer] EDMagdalena Gama, SATINDER BORING MACHINE OPERATOR HORIZONTAL Rossana Ndiaye MD MD jtv Bond, Jarrett RN RN jb7 Maris Dowling RN RN md1 Blanca Ardon RN RN alc Name Value Range Interpretation Code Description Data Agueda rce(s) Supporting Document(s) ID Date Data Source [id number] 09/11/2019 04:20:00 PM EDT [facility] Name: JHON PATE [facility] Rec #: [id number] : 1975 Age/Sex: 44M Date of Service: 09/11/19 NURSE CHART Nurse's Notes Name: Jhon Pate Age: 44 yrs Sex: [...] he/she has never smoked tobacco. Preferred Language: Trinidadian. Screenin:29 AUDIT 1. How often do you [...] Index 35.73 (106.59 kg, 172.72 cm) md1 [place] Coma Score: 17:28 Eye Response: spontaneous(4). Verbal [...] Second set of blood cultures drawn by ct Urine collected. Clean catch specimen. An EKG was obtained and reviewed by Magdalena Turner BORING MACHINE OPERATOR HORIZONTAL. Inserted saline lock: 20 gauge in right [...] rce(s) Supporting Document(s) ID Date Data Source [id number] 09/20/2019 01:12:00 PM EDT [facility] Name Value Range Interpretation Code Description Data Agueda rce(s) Supporting Document(s) Total Protein 6.3 - 7.9 Normal (applies to non-numeric re sults) [facility] Albumin 3.4-4.7 Normal (applies to non-numeric results) [facility] Alpha-1 Globulin 0.1-0.3 Normal (applies to non-numeric results) [facility] Alpha-2 Globulin 0.6-1.0 Normal (applies to non-numeric results) [facility] Beta-Globulin 0.7-1.2 Very abnormal (applies to non-num emilia units [facility] Gamma-Globulin 0.6-1.6 Normal (applies to non-numeric r esults) [facility] A/G Ratio Normal (applies to non-numeric results) [facility] Impression Normal (applies to non-numeric results) [facility] No apparent monoclonal protein on serum electrophoresis. See Immunofixation. Immunofixation Normal (applies to non-numeric r esults) [facility] RESULT: No monoclonal protein detected. Test Performed by: [place] [address] Community Resource Consultant: Noe Williamsno M.D. Ph.D.; CLIA# [id number] ID Date Data Source [id number] 09/20/2019 12:41:00 PM EDT [facility] Name Value Range Interpretation Code Description Data Agueda rce(s) Supporting Document(s) Total Protein 6.3 - 7.9 Normal (applies to non-numeric re sults) [facility] Albumin 3.4-4.7 Normal (applies to non-numeric resul ts) [facility] Alpha-1 Globulin 0.1-0.3 Normal (applies to non-numeric results) [facility] Alpha-2 Globulin 0.6-1.0 Normal (applies to non-numeric results) [facility] Beta-Globulin 0.7-1.[address] [facility] Gamma-Globulin 0.6-1.6 Normal (applies to non-numeric r esults) [facility] A/G Ratio Normal (applies to non-numeric results) [facility] Impression Normal (applies to non-numeric resul ts) [facility] No apparent monoclonal protein on serum electrophoresis. See Immunofixation. Immunofixation Normal (applies to non-numeric r esults) [facility] RESULT: No monoclonal protein detected. Test Performed by: [place] [address] Community Resource Consultant: Noe Williamson M.D. Ph.D.; CLIA# [id number] ID Date Data Source [id number] 09/17/2019 05:52:00 PM EDT [facility] Name Value Range Interpretation Code Description Data Agueda rce(s) Supporting Document(s) Hemoglobin A1c 4.4-6.2 Above high normal [facility] Estimated Avg Glucose 140 mg/dL 126-240 Normal (applies to non-numeric results) [facility] ID Date Data Source [id number] 09/17/2019 05:52:00 PM EDT [facility] Name Value Range Interpretation Code Description Data Agueda rce(s) Supporting Document(s) Vitamin D, Total 30.0-100.0 Below low normal [facility] ID Date Data Source [id number] 09/17/2019 05:52:00 PM EDT [facility] Name Value Range Interpretation Code Description Data Agueda rce(s) Supporting Document(s) Sodium 140 mmol/L 136-145 Normal (applies to non-numeric resul ts) [facility] Potassium 3.5-5.1 Normal (applies to non-numeric resul ts) [facility] Chloride 100 mmol/L 98-107 Normal (applies to non-numeric resul ts) [facility] Carbon Dioxide CO2 21-32 Normal (applies to non-numer ic results) [facility] Anion Gap 5.0-16.0 Normal (applies to non-numeric resul ts) [facility] BUN 17 mg/dL 7-18 Normal (applies to non-numeric results) [facility] Creatinine,Serum 0.8-1.5 Normal (applies to non-numeric results) [facility] GFR >60 Normal (applies to non-numeric results) [facility] Glucose Level 84 mg/dL 60-99 Normal (applies to non-numeric re sults) [facility] Reference range is only applicable when patient is fasting Note the following drug interference: Sulfasalazine Sulfapyridine Can see falsely depressed Can see falsely elevated result with up to 17% results with up to 11% decrease in measurement increase in measurement Recommend patients be collected for this test prior to administration of either drug. Calcium 8.5-10.1 Normal (applies to non-numeric resul ts) [facility] Bilirubin,Total 0.1-1.9 Normal (applies to non-numeric results) [facility] SGOT(AST) 45 U/L 15-37 Above high normal [facility] Note the following drug interference: Sulfasalazine Sulfapyridine Can see falsely depressed Can see falsely elevated result with up to 10% results with up to 10% decrease in measurement increase in measurement Recommend patients be collected for this test prior to administration of either drug. SGPT(ALT) 116 U/L 12-78 Above high normal [facility] Note the following drug interference: Sulfasalazine Sulfapyridine Can see falsely depressed Can see falsely elevated result with up to 29% results with up to 10% decrease in measurement increase in measurement Recommend patients be collected for this test prior to administration of either drug. Alkaline Phosphatase 115 U/L 38-126 Normal (applies to non-num emilia results) [facility] can increase Alkaline Phosp le vels up to 2 times the normal adult value. Normal values for children and adolescents are 2 to 3 times the normal adult value. Total Protein 6.0-8.2 Normal (applies to non-numeric re sults) [facility] Albumin Level 3.4-5.0 Normal (applies to non-numeric re sults) [facility] ID Date Data Source [id number] 09/17/2019 05:52:00 PM T [facility] Name Value Range Interpretation Code Description Data Agueda rce(s) Supporting Document(s) Triglycerides 355 mg/dL <150 Above high normal [facility] Cholesterol 193 mg/dL 100-200 Normal (applies to non-numeric resu lts) [facility] LDL Cholesterol Calculated 92 0-130 Normal (applies to n on-numeric results) [facility] HDL Cholesterol 30 mg/dL 40-60 Below low normal [facility] Cholesterol/HDL Ratio 3.6-6.7 Normal (applies to non-nu meric results) [facility] ID Date Data Source [id number] 09/17/2019 05:52:00 PM T [facility] Name Value Range Interpretation Code Description Data Agueda rce(s) Supporting Document(s) Thyroid Stimulate Hormone TSH 0.358-3.74 No rmal (applies to non-numeric results) [facility] ID Date Data Source [id number] 09/17/2019 05:52:00 PM [facility] Name Value Range Interpretation Code Description Data Agueda rce(s) Supporting Document(s) Free T4 (Free Thyroxine) 0.76-1.46 Normal (applies to non -numeric results) [facility] ID Date Data Source [id number] 09/17/2019 05:10:00 PM EDT [facility] Name Value Range Interpretation Code Description Data Agueda rce(s) Supporting Document(s) White Blood Count 3.5-10.5 Normal (applies to non-numeri c results) [facility] Red Blood Count 4.30-5.70 Normal (applies to non-numeric results) [facility] Hemoglobin 13.5-17.5 Normal (applies to non-numeric resul ts) [facility] Hematocrit 38.8-50.0 Normal (applies to non-numeric resul ts) [facility] Mean Corpuscular Volume 81.2-95.1 Normal (applies to non- numeric results) [facility] Mean Corpuscular Hgb 25.6-32.2 Normal (applies to non-num emilia results) [facility] Mean Corpuscular Hgb Conc 32.0-36.0 Normal (applies to no n-numeric results) [facility] Red Cell Distribution Width 11.8-15.6 Normal (appli es to non-numeric results) [facility] Platelet Count 293 x10 3/uL 150-450 Normal (applies to non-numeric results) [facility] Mean Platelet Volume 9.4-12.4 Normal (applies to non-num emilia results) [facility] Neutrophils% (Auto) 31.0-71.0 Normal (applies to non-nume pako results) [facility] Lymphocytes% (Auto) 20.0-55.0 Normal (applies to non-nume pako results) [facility] Monocytes% (Auto) 4.0-12.0 Normal (applies to non-numeri c results) [facility] Eosinophils% (Auto) 1.0-8.0 Normal (applies to non-nume pako results) [facility] Basophils% (Auto) 0.0-2.0 Normal (applies to non-numeri c results) [facility] Immature Granulocytes% (Auto) 0.0-2.0 Normal (jovanni lies to non-numeric results) [facility] Neutrophils# (Auto) 1.50-6.20 Normal (applies to non-nume pako results) [facility] Lymphocytes# (Auto) 1.20-4.00 Normal (applies to non-nume pako results) [facility] Monocytes# (Auto) 0.00-0.90 Normal (applies to non-numeri c results) [facility] Eosinophils# (Auto) 0.00-0.50 Normal (applies to non-nume pako results) [facility] Basophils# (Auto) 0.00-0.20 Normal (applies to non-numeri c results) [facility] Immature Granulocytes# (Auto) 0.00-7.00 No rmal (applies to non-numeric results) [facility] ID Date Data Source [id number] 09/11/2019 04:20:00 PM EDT [facility] Name: JHON PATE [facility] Rec #: [id number] : 1975 Age/Sex: 44M Date of Service: 09/11/19 DISPOSITION SUMMARY Discharge Summary Name:Jhon Pate Emergency Department Age:44 yrs Sex:Male [...] rce(s) Supporting Document(s) ID Date Data Source [id number] 09/16/2019 05:28:00 PM EDT [facility] Liter Flow: 1 3 hour post Lactic if timothy vated? Y On Oxygen? N Name Value Range Interpretation Code Description Data Agueda rce(s) Supporting Document(s) Blood Culture-Venous [facility] ID Date Data Source [id number] 09/16/2019 05:28:00 PM EDT [facility] Liter Flow: 1 3 hour post Lactic if timothy vated? Y On Oxygen? N Name Value Range Interpretation Code Description Data Agueda rce(s) Supporting Document(s) Blood Culture-Venous [facility] ID Date Data Source [id number] 09/15/2019 09:45:00 AM EDT [facility] COVID-19 Specimen Source NASOPHARYNGEAL Name Value Range Interpretation Code Description Data Agueda rce(s) Supporting Document(s) SARS-CoV-2 RNA Undetected Normal (applies to non-numeric r esults) [facility] SARS-CoV-2 RNA is not detected. ------- ADDITIONAL INFORMATION Testing was performed using the ramez SARS-CoV-2 assay ([employer] on the [employer]amez Acesis0 System. Fact sheets for this Emergency Use Authorization (EUA) assay can be found at the following links: For Healthcare Providers: https://www.fda.gov/media/628416/download For Patients: https://www.fda.gov/media/297834/download Test Performed by: [place] [address] Community Resource Consultant: Noe Williamson M.D. Ph.D.; CLIA# [id number] ID Date Data Source [id number] 09/11/2019 06:58:00 PM EDT [facility] NThis Respiratory Panel DOES NOT test fo r the Novel 2018- Coronovirus (2019- nCoV) from [facility]. If patient is suspected of having the Novel 2018 Coronovirus notify the Health Department IMMEDIATELY. Not detectedNot detectedNot detectedNot detectedNot detectedNot detectedNot detectedNot detectedNot detectedNot detectedNot detectedNot detectedNot detectedNot detected Methodology: Multiplexed PCR Reference Range: Not detectedNot detectedNot detectedNot detectedNot detected Name Value Range Interpretation Code Description Data Agueda rce(s) Supporting Document(s) ID Date Data Source [id number] 09/11/2019 06:04:00 PM EDT [facility] Name Value Range Interpretation Code Description Data Agueda rce(s) Supporting Document(s) Sodium 136 mmol/L 137-145 Below low normal [facility] Potassium 3.5-5.1 Normal (applies to non-numeric resul ts) [facility] Chloride 103 mmol/L 98-112 Normal (applies to non-numeric resul ts) [facility] Carbon Dioxide CO2 22.0-33.0 Normal (applies to non-numer ic results) [facility] Anion Gap 4.0-11.0 Normal (applies to non-numeric resul ts) [facility] BUN 18 mg/dL 9-20 Normal (applies to non-numeric resul ts) [facility] Creatinine 0.80-1.50 Normal (applies to non-numeric resul ts) [facility] GFR 75 mL/min >60 Normal (applies to non-numeric resul ts) [facility] Result based on MDRD formula. Glucose Level 105 mg/dL 74-99 Above high normal [facility] The reference range is only applicable w hen fasting. Calcium-Uncorrected 8.4-10.2 Normal (applies to non-nume pako results) [facility] Corrected Calcium 8.4-10.2 Normal (applies to non-numeri c results) [facility] Bilirubin,Total 0.2-1.3 Normal (applies to non-numeric results) [facility] SGOT(AST) 58 U/L 17-59 Normal (applies to non-numeric resul ts) [facility] SGPT(ALT) 113 U/L 21-72 Above high normal [facility] Alkaline Phosphatase 111 U/L 38-126 Normal (applies to non-num emilia results) [facility] can increase Alkaline Phosp le vels up to 2 times the normal adult value. Normal values for children and adolescents are 2 to 3 times the normal adult value. Total Protein 6.3-8.2 Normal (applies to non-numeric re sults) [facility] Albumin 3.5-5.0 Normal (applies to non-numeric resul ts) [facility] ID Date Data Source [id number] 09/11/2019 06:04:00 PM EDT [facility] Name Value Range Interpretation Code Description Data Agueda rce(s) Supporting Document(s) Magnesium 1.80-2.40 Normal (applies to non-numeric resul ts) [facility] ID Date Data Source [id number] 09/11/2019 06:04:00 PM EDT [facility] Name Value Range Interpretation Code Description Data Agueda rce(s) Supporting Document(s) B-Type Natriuretic Peptide BNP <125 Normal (applies to non-numeric results) [facility] NT-proBNP values less than 300 pg/mL [...] acute congestive failure. ID Date Data Source [id number] 09/11/2019 06:04:00 PM EDT [facility] Name Value Range Interpretation Code Description Data Agueda rce(s) Supporting Document(s) Lipase 91 U/L 73-393 Normal (applies to non-numeric resul ts) [facility] ID Date Data Source [id number] 09/11/2019 05:58:00 PM EDT [facility] Name Value Range Interpretation Code Description Data Agueda rce(s) Supporting Document(s) Troponin I 0.000-0.045 Normal (applies to non-numeric resu lts) [facility] ID Date Data Source [id number] 09/11/2019 05:56:00 PM EDT [facility] 3 hour post Lactic if elevated? Y Name Value Range Interpretation Code Description Data Agueda rce(s) Supporting Document(s) Lactic Acid 0.4-2.0 Normal (applies to non-numeric resu lts) [facility] ID Date Data Source [id number] 09/11/2019 05:45:00 PM EDT [facility] Name Value Range Interpretation Code Description Data Agueda rce(s) Supporting Document(s) PT 9.4-12.5 Normal (applies to non-numeric results) [facility] INR Normal (applies to non-numeric results) [facility] The use of the INR is restricted to francisco javier ents on stable oral anticoagulant. Therapeutic Range: 2.0-3.0 High Risk Values: 2.5-3.5 ID Date Data Source [id number] 09/11/2019 05:45:00 PM EDT [facility] Name Value Range Interpretation Code Description Data Agueda rce(s) Supporting Document(s) PTT 25.1-36.5 Normal (applies to non-numeric resul ts) [facility] ID Date Data Source [id number] 09/11/2019 05:45:00 PM EDT [facility] Name Value Range Interpretation Code Description Data Agueda rce(s) Supporting Document(s) D-Dimer Quant 326 ng/mLFEU <500 Normal (applies to non-numeric results) [facility] Negative for D-Dimer. This test has f ull FDA exclusion claim at a Negative cutoff value of 500 ng/mL FEU. When the d-dimer value is used in conjunction with the clinical pretest probability (PTP) assessment model to exclude DVT and PE, results less than 500 ng/mL are negative for DVT/PE. ID Date Data Source [id number] 09/11/2019 05:44:00 PM EDT [facility] Name Value Range Interpretation Code Description Data Agueda rce(s) Supporting Document(s) Color,Urine Yellow Normal (applies to non-numeric resu lts) [facility] Clarity,Urine Clear Normal (applies to non-numeric re sults) [facility] Specific [place],Urine 1.001-1.030 Normal (applies to non- numeric results) [facility] PH,Urine 5.0-8.0 Normal (applies to non-numeric resul ts) [facility] Protein,Urine Negative Normal (applies to non-numeric re sults) [facility] Glucose,Urine (UA) Negative Normal (applies to non-numer ic results) [facility] Ketones,Urine Negative Normal (applies to non-numeric re sults) [facility] Blood,Urine Negative Normal (applies to non-numeric resu lts) [facility] Bilirubin,Urine Negative Normal (applies to non-numeric results) [facility] Urobilinogen,Urine Norm 0.2-1 Normal (applies to non-numer ic results) [facility] Leukocyte Esterase,Urine Negative Normal (applies to non -numeric results) [facility] Nitrite,Urine Negative Normal (applies to non-numeric re sults) [facility] ID Date Data Source [id number] 09/11/2019 05:32:00 PM EDT [facility] Liter Flow: 1 3 hour post Lactic if timothy vated? Y On Oxygen? N Name Value Range Interpretation Code Description Data Agueda rce(s) Supporting Document(s) Venous PH 7.31-7.41 Normal (applies to non-numeric resul ts) [facility] VBG PCO2 43 mmHg 42-55 Normal (applies to non-numeric resul ts) [facility] VBG PO2 47 mmHg 30-50 Normal (applies to non-numeric resul ts) [facility] VBG HCO3 24.0-28.0 Normal (applies to non-numeric resul ts) [facility] ID Date Data Source [id number] 09/11/2019 05:31:00 PM EDT [facility] Name Value Range Interpretation Code Description Data Agueda rce(s) Supporting Document(s) White Blood Count 4.8-10.8 Normal (applies to non-numeri c results) [facility] Red Blood Count 4.35-6.08 Normal (applies to non-numeric results) [facility] Hemoglobin 13.0-17.5 Normal (applies to non-numeric resul ts) [facility] Hematocrit 37.7-51.0 Normal (applies to non-numeric resul ts) [facility] Mean Corpuscular Volume 80-94 Normal (applies to non- numeric results) [facility] Mean Corpuscular Hemoglobin 27.0-33.0 Normal (appli es to non-numeric results) [facility] Mean Corpuscular HGB Conc 32.0-36.0 Normal (applies to no n-numeric results) [facility] Red Cell Distribution Width 11.5-14.5 Normal (appli es to non-numeric results) [facility] Platelet Count 323 X10 3/uL 130-450 Normal (applies to non-numeric results) [facility] Mean Platelet Volume 9.6-13.1 Normal (applies to non-num emilia results) [facility] Imm Grans% (AUTO) 0 % 0-2 Normal (applies to non-numeri c results) [facility] Neutrophils % (AUTO) 42 % 40-75 Normal (applies to non-num emilia results) [facility] Lymphocytes % (AUTO) 44 % 21-46 Normal (applies to non-num emilia results) [facility] Monocytes % (AUTO) 10 % 5-12 Normal (applies to non-numer ic results) [facility] Eosinophils % (AUTO) 3 % 1-5 Normal (applies to non-num emilia results) [facility] Basophils % (AUTO) 1 % 0-1 Normal (applies to non-numer ic results) [facility] Imm Grans# (AUTO) 0.00-0.50 Normal (applies to non-numeri c results) [facility] Neutrophils # (AUTO) 1.5-8.1 Normal (applies to non-num emilia results) [facility] Lymphocytes # (AUTO) 1.0-3.1 Above high normal [facility] Monocytes # (AUTO) 0.2-1.3 Normal (applies to non-numer ic results) [facility] Eosinophils# (AUTO) 0.0-0.5 Normal (applies to non-nume pako results) [facility] Basophils # (AUTO) 0.00-0.10 Normal (applies to non-numer ic results) [facility] ID Date Data Source [id number] 09/12/2019 01:58:[address] [facility] Name: JHON PATE : 7 Age/Sex: 44M Ordering Provider: WEI Garg Med Rec #: [id number] Reg Status:[facility] ER Room #: Date of Service: 09/11/19 Report Number: [id number] cc: WEI Garg; Mateo Rodríguez MD Send Report To: Reason for exam: Baseline SINUS RHYTHM MODERATE INTRAVENTRICULAR CONDUCTION DELAY BORDERLINE ECG INTERPRETATION BASED ON A DEFAULT AGE OF 40 YEARS No significant change Physician [employer] Hazmat Driver: Woody Vaz M.D. ECG HEART RATE: 97 /min ECG RR INTERVAL: 617 ms ECG P DURATION: 113 ms ECG QRS DURATION: 112 ms ECG MT INTERVAL: 158 ms ECG QT INTERVAL: 345 ms ECG QTC INTERVAL: 409 ms Q-T dispersion: ms ECG P AXIS: 52 deg ECG QRS AXIS: -16 deg ECG T AXIS: -3 deg REPORT SIGNATURE ON FILE 09/12/19 1358 Reported By: Woody Vaz MD <<Signature on File>> Exam Date/Time: 09/11/19 1652 Order #: [id number] Dictation Date/Time: 09/12/19 1358 Transcribed Date/Time: 09/12/19 135 Fitting Room Checker: TOBY Stahl Value Range Interpretation Code Description Data Agueda rce(s) Supporting Document(s) ID Date Data Source [id number] 09/12/2019 06:06:[address] [facility] Name: JHON PATE : 7 Age/Sex: 44M Ordering Provider: WEI Garg Med Rec #: [id number] Reg Status: [facility] Room #: Date of Service: 09/11/19 Report Number: [id number] cc:Mateo Rodríguez MD Send Report To: [id number] XRP/XR Chest Xray Portable Reason for exam: [...] Dictation Date/Time: 09/11/191718 Transcribed Date/Time: 09/12/19 0606 Fitting Room Checker: LYNETTE Name Value Range Interpretation Code Description Data Agueda rce(s) Supporting Document(s) ID Date Data Source [id number] 09/11/2019 04:00:00 PM EDT [facility] Name Value Range Interpretation Code Description Data Agueda rce(s) Supporting Document(s) SARS-CoV-2 RNA Resp Ql RO+probe [facility] This lab was ordered by [facility] sonny and reported by [facility]. 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 08/22 11:09 Order name: [...] Order name: Troponin I; Complete Time: 14:07 [facility] 08/22 14:07 Interpretation: TROP I < 0.045. [facility] 08/22 11:09 Order name: BNP; Complete Time: 14:08 [facility] 08/22 14:08 Interpretation: BNP 5. [facility] 08/22 11:09 Order name: VBG; Complete Time: 14:07 [facility] 08/22 14:07 Interpretation: VBG PH 7.42; VBG PCO2 39; VBG PO2 65; VBG tcm HCO3 25.3. 08/22 11:09 Order name: UA.; Complete Time: 14:08 [facility] 08/22 14:08 Interpretation: Ur Color Yellow; Ur Clarity Clear; Ur Spec tcm gravity 1.022; Ur Protein Negative; Ur Glucose Negative; Ur Ketones Negative; Ur Bilirubin Negative; Ur Blood Negative; Ur Urobilinogen 1.0; Ur Leuk Est Negative; Ur Nitrite Negative. 08/22 10:56 Order name: Cardiology EKG Interpretation - Choose Reason dl2 for Test 08/22 11:09 Order name: D-Dimer; Complete Time: 14:08 [facility] 08/22 14:08 Interpretation: D-Dimer Quant 223. [facility] 08/22 11:09 Order name: Chest 2 View (PA & LAT) - Xray [facility] 08/22 11:29 Order name: Respiratory Panel (Use Workup); Complete Time: [facility] 13:53 08/22 13:53 Interpretation: VIRUSES <p></p>. [facility] 08/22 10:56 Order name: Emergency Room EKG Order - Use EKG Work-Up dl2 /Quick Select; Complete Time: 11:03 08/22 11:09 Order name: Collect Urine - Clean Catch; Complete Time: [facility] 11:42 08/22 11:09 Order name: Saline Lock; Complete Time: 11:42 [facility] 08/22 11:29 Order name: Collect nasal swab; Complete Time: 11:42 [facility] Dispensed Medications: 12:10 Drug: NS 0.9% 1000 [...] capsule; Refills: 0, Product Selection Permitted - [place] 5 - take 1 tablet by ORAL [...] rce(s) Supporting Document(s) ID Date Data Source [id number] 08/23/2019 10:45:00 AM EDT [facility] Name: PAULAHENRYJHON [facility] Rec #: [id number] : 1975 Age/Sex: 44M Date of Service: 08/23/19 DISPOSITION SUMMARY Discharge Summary Name:[facility] Age:44 yrs Sex:Male :1975 Arrival:08/23/2019 10:45 Departure Date08/23/2019 Departure Time14:58 Private MD:Mateo Rodríguez Outcome: Discharge Location: Home/Self Care Condition: Good Chief Complaint: Shortness Of Breath, High Blood Pressure Diagnosis: Upper Respiratory Infection (URI), Cellulitis Prescriptions: Cephalexin 500 mg Oral Capsule - take 1 capsule by ORAL route every 6 hours for 5 days; 20 capsule, [place] 5-325 mg Oral Tablet - take 1 [...] rce(s) Supporting Document(s) ID Date Data Source [id number] 08/23/2019 10:45:00 AM EDT [facility] Name: JHON PATE [facility] Rec #: [id number] : 1975 Age/Sex: 44M Date of Service: 08/23/19 NURSE CHART Nurse's Notes Name: Jhon Pate Age: 44 yrs Sex: Male : 1975 Arrival Date: 08/23/2019 Time: 10:45 Bed 5 Private MD: Mateo Rodríguez S Diagnosis: Upper Respiratory Infection (URI);Cellulitis Inbound Details: Referred by: Reyes Argueta MD [phone] Arriving by: Walk-In ETA: Who will see [...] in reach, Side rails up X 1. monitor technician on. Pulse on is on. NIBP on. 11:40 No procedures ordered. Labs drawn by ED staff. First set of dl2 blood cultures drawn by ct Urine collected. Clean catch specimen. A swab [...] Name Value Range Interpretation Code Description Data [facility](s) Supporting Document(s) ID Date Data Source [id number] 08/23/2019 01:44:00 PM EDT [facility] This Respiratory Panel DOES NOT test for the Novel 2018- Coronovirus (2019- nCoV) from [facility]. If patient is suspected of having the Novel 2018 Coronovirus notify the Health Department IMMEDIATELY. Methodology: Multiplexed PCR Reference Range: None detected Name Value Range Interpretation Code Description Data [facility]) Supporting Document(s) ID Date Data Source [id number] 08/23/2019 12:45:00 PM EDT [facility] Liter Flow: 0 On Oxygen? N Name Value Range Interpretation Code Description Data [facility] Supporting Document(s) D-Dimer Quant 223 ng/mLFEU <500 Normal (applies to non-numeric results) [facility] Negative for D-Dimer. This test has f ull FDA exclusion claim at a Negative cutoff value of 500 ng/mL FEU. When the d-dimer value is used in conjunction with the clinical pretest probability (PTP) assessment model to exclude DVT and PE, results less than 500 ng/mL are negative for DVT/PE. ID Date Data Source [id number] 08/23/2019 12:08:00 PM EDT [facility] Name Value Range Interpretation Code Description Data Agueda rce(s) Supporting Document(s) Sodium 140 mmol/L 137-145 Normal (applies to non-numeric resul ts) [facility] Potassium 3.5-5.1 Normal (applies to non-numeric resul ts) [facility] Chloride 105 mmol/L 98-112 Normal (applies to non-numeric resul ts) [facility] Carbon Dioxide CO2 22.0-33.0 Normal (applies to non-numer ic results) [facility] Anion Gap 4.0-11.0 Normal (applies to non-numeric resul ts) [facility] BUN 15 mg/dL 9-20 Normal (applies to non-numeric resul ts) [facility] Creatinine 0.80-1.50 Normal (applies to non-numeric resul ts) [facility] GFR 83 mL/min >60 Normal (applies to non-numeric resul ts) [facility] Result based on MDRD formula. Glucose Level 97 mg/dL 74-99 Normal (applies to non-numeric re sults) [facility] The reference range is only applicable w hen fasting. Calcium-Uncorrected 8.4-10.2 Normal (applies to non-nume pako results) [facility] Corrected Calcium 8.4-10.2 Normal (applies to non-numeri c results) [facility] Bilirubin,Total 0.2-1.3 Normal (applies to non-numeric results) [facility] SGOT(AST) 44 U/L 17-59 Normal (applies to non-numeric resul ts) [facility] SGPT(ALT) 80 U/L 21-72 Above high normal [facility] Alkaline Phosphatase 99 U/L 38-126 Normal (applies to non-num emilia results) [facility] can increase Alkaline Phosp le vels up to 2 times the normal adult value. Normal values for children and adolescents are 2 to 3 times the normal adult value. Total Protein 6.3-8.2 Normal (applies to non-numeric re sults) [facility] Albumin 3.5-5.0 Normal (applies to non-numeric resul ts) [facility] ID Date Data Source [id number] 08/23/2019 12:08:00 PM EDT [facility] Name Value Range Interpretation Code Description Data Agueda rce(s) Supporting Document(s) B-Type Natriuretic Peptide BNP 5 pg/mL <125 N ormal (applies to non-numeric results) [facility] NT-proBNP values less than 300 pg/mL [...] acute congestive failure. ID Date Data Source [id number] 08/23/2019 12:06:00 PM EDT [facility] Name Value Range Interpretation Code Description Data Agueda rce(s) Supporting Document(s) Troponin I 0.000-0.045 Normal (applies to non-numeric resu lts) [facility] ID Date Data Source [id number] 08/23/2019 11:56:00 AM EDT [facility] Name Value Range Interpretation Code Description Data Agueda rce(s) Supporting Document(s) White Blood Count 4.8-10.8 Normal (applies to non-numeri c results) [facility] Red Blood Count 4.35-6.08 Normal (applies to non-numeric results) [facility] Hemoglobin 13.0-17.5 Normal (applies to non-numeric resul ts) [facility] Hematocrit 37.7-51.0 Normal (applies to non-numeric resul ts) [facility] Mean Corpuscular Volume 80-94 Normal (applies to non- numeric results) [facility] Mean Corpuscular Hemoglobin 27.0-33.0 Normal (appli es to non-numeric results) [facility] Mean Corpuscular HGB Conc 32.0-36.0 Normal (applies to no n-numeric results) [facility] Red Cell Distribution Width 11.5-14.5 Normal (appli es to non-numeric results) [facility] Platelet Count 224 X10 3/uL 130-450 Normal (applies to non-numeric results) [facility] Mean Platelet Volume 9.6-13.1 Normal (applies to non-num emilia results) [facility] Imm Grans% (AUTO) 1 % 0-2 Normal (applies to non-numeri c results) [facility] Neutrophils % (AUTO) 50 % 40-75 Normal (applies to non-num emilia results) [facility] Lymphocytes % (AUTO) 34 % 21-46 Normal (applies to non-num emilia results) [facility] Monocytes % (AUTO) 11 % 5-12 Normal (applies to non-numer ic results) [facility] Eosinophils % (AUTO) 4 % 1-5 Normal (applies to non-num emilia results) [facility] Basophils % (AUTO) 1 % 0-1 Normal (applies to non-numer ic results) [facility] Imm Grans# (AUTO) 0.00-0.50 Normal (applies to non-numeri c results) [facility] Neutrophils # (AUTO) 1.5-8.1 Normal (applies to non-num emilia results) [facility] Lymphocytes # (AUTO) 1.0-3.1 Normal (applies to non-num emilia results) [facility] Monocytes # (AUTO) 0.2-1.3 Normal (applies to non-numer ic results) [facility] Eosinophils# (AUTO) 0.0-0.5 Normal (applies to non-nume pako results) [facility] Basophils # (AUTO) 0.00-0.10 Normal (applies to non-numer ic results) [facility] ID Date Data Source [id number] 08/23/2019 11:48:00 AM EDT [facility] Liter Flow: 0 On Oxygen? N Name Value Range Interpretation Code Description Data Agueda rce(s) Supporting Document(s) Venous PH 7.31-7.41 Above high normal [facility] VBG PCO2 39 mmHg 42-55 Below low normal [facility] VBG PO2 65 mmHg 30-50 Above high normal [facility] VBG HCO3 24.0-28.0 Normal (applies to non-numeric resul ts) [facility] ID Date Data Source [id number] 08/23/2019 12:04:00 PM EDT [facility] Liter Flow: 0 On Oxygen? N Name Value Range Interpretation Code Description Data Agueda rce(s) Supporting Document(s) Color,Urine Yellow Normal (applies to non-numeric resu lts) [facility] Clarity,Urine Clear Normal (applies to non-numeric re sults) [facility] Specific [place],Urine 1.001-1.030 Normal (applies to non- numeric results) [facility] PH,Urine 5.0-8.0 Normal (applies to non-numeric resul ts) [facility] Protein,Urine Negative Normal (applies to non-numeric re sults) [facility] Glucose,Urine (UA) Negative Normal (applies to non-numer ic results) [facility] Ketones,Urine Negative Normal (applies to non-numeric re sults) [facility] Blood,Urine Negative Normal (applies to non-numeric resu lts) [facility] Bilirubin,Urine Negative Normal (applies to non-numeric results) [facility] Urobilinogen,Urine Norm 0.2-1 Normal (applies to non-numer ic results) [facility] Leukocyte Esterase,Urine Negative Normal (applies to non -numeric results) [facility] Nitrite,Urine Negative Normal (applies to non-numeric re sults) [facility] ID Date Data Source [id number] 08/24/2019 12:27:[address] [facility] Name: JHON PATE : 7 Age/Sex: 44M Ordering Provider: MARIANA Varela Med Rec #: [id number] Reg Status: [facility] ER Room #: Date of Service: 08/23/19 Report Number: [id number] cc:Mateo Rodríguez MD Send Report To: [id number] XRP/XR Chest 2 View [Pa & Lat] [...] Date/Time: 08/23/19 1243 Transcribed Date/Time: 08/24/19 1227 Fitting Room Checker: LYNETTE Name Value Range Interpretation Code Description Data Agueda rce(s) Supporting Document(s) ID Date Data Source [id number] 08/24/2019 11:34:[address] [facility] Name: JHON PATE : 7 Age/Sex: 44M Ordering Provider: Dagoberto Torres DO Med Rec #: [id number] Reg Status:[facility] Room #: Date of Service: 08/23/19 Report Number: [id number] cc: Mateo Rodríguez MD; Dagoberto Torres DO Send Report To: Reason for exam: Hypertension SINUS TACHYCARDIA ABNORMAL RHYTHM ECG Compared to 07/05/2019 there is no significant change Physician [employer]mat Driver: Brian Mai M.D. ECG HEART RATE: 107 /min ECG RR INTERVAL: 560 ms ECG P DURATION: 128 ms ECG QRS DURATION: 110 ms ECG MT INTERVAL: 152 ms ECG QT INTERVAL: 342 ms ECG QTC INTERVAL: 424 ms Q-T dispersion: ms ECG P AXIS: 45 deg ECG QRS AXIS: -6 deg ECG T AXIS: -4 deg REPORT SIGNATURE ON FILE 08/24/19 1135 Reported By: Brian Mai MD, [facility] <<Signature on File>> Exam Date/Time: 08/23/19 1059 Order #: [id number] Dictation Date/Time: 08/24/19 1134 Transcribed Date/Time: 08/24/19 113 Fitting Room Checker: TOBY Name Value Range Interpretation Code Description Data Agueda rce(s) Supporting Document(s) ID Date Data Source [id number] 07/08/2019 09:55:00 AM EST [facility] Name Value Range Interpretation Code Description Data Agueda rce(s) Supporting Document(s) Potassium 3.5-5.1 Normal (applies to non-numeric resul ts) [facility] ID Date Data Source [id number] 07/08/2019 09:35:00 AM EST [facility] Name Value Range Interpretation Code Description Data Agueda rce(s) Supporting Document(s) White Blood Count 4.8-10.8 Above high normal [facility] Red Blood Count 4.35-6.08 Normal (applies to non-numeric results) [facility] Hemoglobin 13.0-17.5 Normal (applies to non-numeric resul ts) [facility] Hematocrit 37.7-51.0 Normal (applies to non-numeric resul ts) [facility] Mean Corpuscular Volume 80-94 Normal (applies to non- numeric results) [facility] Mean Corpuscular Hemoglobin 27.0-33.0 Normal (appli es to non-numeric results) [facility] Mean Corpuscular HGB Conc 32.0-36.0 Normal (applies to no n-numeric results) [facility] [facility] Red Cell Distribution Width 11.5-14.5 Above high normal [facility] Platelet Count 293 X10 3/uL 130-450 Normal (applies to non-numeric results) [facility] Mean Platelet Volume 9.6-13.1 Normal (applies to non-num emilia results) [facility] ID Date Data Source [id number] 07/07/2019 06:55:00 AM [facility] Name Value Range Interpretation Code Description Data Agueda rce(s) Supporting Document(s) Sodium 137 mmol/L 137-145 Normal (applies to non-numeric resul ts) [facility] Potassium 3.5-5.1 Normal (applies to non-numeric resul ts) [facility] Chloride 104 mmol/L 98-112 Normal (applies to non-numeric resul ts) [facility] Carbon Dioxide CO2 22.0-33.0 Normal (applies to non-numer ic results) [facility] Anion Gap 4.0-11.0 Normal (applies to non-numeric resul ts) [facility] BUN 17 mg/dL 9-20 Normal (applies to non-numeric resul ts) [facility] Creatinine 0.80-1.50 Normal (applies to non-numeric resul ts) [facility] GFR 70 mL/min >60 Normal (applies to non-numeric resul ts) [facility] Result based on MDRD formula. Glucose Level 137 mg/dL 74-99 Above high normal [facility] The reference range is only applicable w hen fasting. Calcium-Uncorrected 8.4-10.2 Normal (applies to non-nume pako results) [facility] Corrected Calcium 8.4-10.2 Normal (applies to non-numeri c results) [facility] ID Date Data Source [id number] 07/07/2019 06:41:00 AM EST [facility] Name Value Range Interpretation Code Description Data Agueda rce(s) Supporting Document(s) White Blood Count 4.8-10.8 Above high normal [facility] Red Blood Count 4.35-6.08 Normal (applies to non-numeric results) [facility] Hemoglobin 13.0-17.5 Normal (applies to non-numeric resul ts) [facility] Hematocrit 37.7-51.0 Normal (applies to non-numeric resul ts) [facility] Mean Corpuscular Volume 80-94 Normal (applies to non- numeric results) [facility] Mean Corpuscular Hemoglobin 27.0-33.0 Normal (appli es to non-numeric results) [facility] Mean Corpuscular HGB Conc 32.0-36.0 Normal (applies to no n-numeric results) [facility] Red Cell Distribution Width 11.5-14.5 Above high normal [facility] Platelet Count 294 X10 3/uL 130-450 Normal (applies to non-numeric results) [facility] Mean Platelet Volume 9.6-13.1 Normal (applies to non-num emilia results) [facility] ID Date Data Source [id number] 07/05/2019 05:13:00 PM EST [facility] Name: JHON PATE [facility] Rec #: [id number] : 1975 Age/Sex: 43M Date of Service: 07/05/19 PHYSICIAN CHART Physician Documentation Name: Jhon Pate Age: 43 yrs Sex: Male : 1975 Arrival Date: 07/05/2019 Time: 17:13 Bed 3 Private MD: Mateo Rodríguez S ED Physician Kevin Crocker Disposition: 07/05 18:41 Attestation: I was present, saw, evaluated and participated aaq in the care with the Advanced Practice Provider. 21:05 Critical Care: not applicable. [facility] 21:[address] [facility] HPI: 18:34 This 43 yrs old Male presents to ER via Walk-In [facility] with complaints of Shortness Of Breath - - Facial Swelling left side. 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 recent admissions for respiratory failure [...] With Auto Differential; Complete Time: 18:49[facility] 07/05 18:04 Order name: COMMET; Complete Time: 21:26 [facility] 07/05 18:04 Order name: Troponin I [facility] 07/05 18:04 Order name: Lipase [facility] 07/05 18:04 Order name: BNP [facility] 07/05 18:04 Order name: UA.; Complete Time: 19:45 [facility] 07/05 18:04 Order name: Cardiology EKG Interpretation - Choose Reason [facility] for Test 07/05 18:04 Order name: Chest Xray - portable; Complete Time: 18:49 [facility] 07/05 18:49 Interpretation: Laquita michelle Brian - 07/05/2019 6:18:[address] [facility] Mild left lower lung atelectasis. Borderline cardiomegaly. No infiltrate. . 07/05 18:04 Order name: Respiratory Panel (Use Workup); Complete Time: [facility] 19:46 07/05 19:46 Interpretation: Within normal limits. [facility] 07/05 18:04 Order name: VBG [facility] 07/05 18:04 Order name: D-Dimer [facility] 07/05 19:27 Order name: Bilirubin,Direct [facility] 07/05 19:51 Order name: CT Chest for PE with Contrast [facility] 07/05 20:44 Interpretation: I mpression No evidence for pulmonary kojo embolism. Trace pericardial effusion. Findings suggest early congestive failure Hepatic steatosis. The exam demonstrates a cholecystectomy. 07/05 18:04 Order name: Collect Urine - Clean Catch; Complete Time: kojo 18:32 07/05 18:04 Order name: Saline Lock; Complete Time: 18:32 [facility] 07/05 18:04 Order name: Monitor - Cardiac, Place on Patient; Complete kojo Time: 18:15 07/05 18:04 Order name: Monitor on Patient - Pulse Oximetry; Complete kojo Time: 18:15 07/05 18:04 Order name: Emergency Room EKG Order - Use EKG Work-Up kojo /Quick Select; Complete Time: 18:38 07/05 18:04 Order name: Collect nasal swab; Complete James e: 18:35 [facility] 07/05 21:08 Order name: Admit to Inpatient [facility] 07/05 18:04 Order name: Oxygen; Complete Time: 18:15 kojo Dispensed Medi cations: 18:38 Drug: NS 0.9% 1000 ml [sodium chloride 0.9 % injection jh6 solution] Route: IV; Rate: 150 mL/hr; Site: right forearm; 22:53 Follow up: IV Status: Infusion continued upon admission to [facility]. 18:50 Drug: DuoNeb - Albuterol-Ipratropium 3 [...] Follow up: Response: Shortness of breath improved. [facility] 21:45 Drug: DuoNeb - Albuterol-Ipratropium 3 ml arj [ipratropium-albuterol 0.5 mg-3 mg(2.5 mg base)/3 mL nebulization soln (3 mL)] Route: Nebulizer; 22:10 Follow up: Response: Shortness of breath improved. [facility] 21:45 Drug: DuoNeb - Albuterol-Ipratropium 3 ml arj [ipratropium-albuterol 0.5 mg-3 mg(2.5 mg base)/3 mL nebulization soln (3 mL)] Route: Nebulizer; 22:10 Follow up: Response: Shortness of breath improved. [facility] 22:40 Not Given (administered on floorr): levo floxacin 750 mg arj IVPB once; order lactate and/or blood cultures if for sepsis 22:51 Drug: Magnesium Sulfate 2 grams [magnesium sulfate 2 arj gram/50 mL (4 %) in water intravenous piggyback] Route: IV; Rate: calculated rate; Infused Over: 20 mins; Site: right antecubital; 22:51 Follow up: IV Status: Infusion continued upon admission to [facility]. Disposition Summary: 07/05/19 21:06 Hospitalization Ordered Hospitalization Status: Inpatient Admission kojo Provider: Noe Xiong Location: Med-Surg [facility] Condition: Fair [facility] Room Assignment: [id number](07/05/19 21:09) sf2 Diagnosis - Respiratory failure, unspecified [...] rce(s) Supporting Document(s) ID Date Data Source [id number] 07/05/2019 05:13:00 PM [facility] Name: JHON PATE [facility] Rec #: [id number] : 1975 Age/Sex: 43M Date of Service: 07/05/19 DISPOSITION SUMMARY Discharge Summary Name:Jhon Pate Emergency Department Age:43 yrs Sex:Male [...] rce(s) Supporting Document(s) ID Date Data Source [id number] 07/05/2019 05:13:00 PM [facility] Name: JHON PATE [facility] Rec #: [id number] : 1975 Age/Sex: 43M Date of Service: 07/05/19 NURSE CHART Nurse's Notes Name: Jhon Pate Age: 43 yrs Sex: Male : 1975 Arrival Date: 07/05/2019 Time: 17:13 Bed 3 Private MD: Mateo Rodríguez S Diagnosis: Respiratory failure, unspecified with hypoxia;Chest pain, unspecified Presentation: 07/05 17:16 Transition of care: patient was not received from another [facility] setting of care. Presenting complaint: Patient states - Began to feel sob this morning, had a couple invasive tests yesterday in Radiology. Patient denies any travel outside the [place] in the last 30 days. Patient denies exposure to sick international traveler in last 30 days. 17:16 Method Of Arrival: Walk-In [facility] 17:16 Acuity: Urgent - 3 [facility] Triage Assessment: 17:17 SEPSIS SCREEN: A Confirmed [...] 17:37 Bolivar Mackenzie, PERI is Primary Nurse. [facility] 17:41 K[facility] Esquivel [facility]C [facility] 17:41 Kevin Crocker MD is Attending Physician. [facility] 18:15 monitor technician on. Pulse on is on. NIBP on. [facility] 18:15 Oxygen administration via nasal cannula & 2L/min. [facility] 18:32 Labs drawn by lab staff. Inserted saline lock: 20 gauge in [facility] right forearm. 18:37 An EKG was obtained and reviewed by Kassy Esquivel PA-C. [facility] [place] 18:38 Cardiology EKG Interpretation - Choose Reason for Test Sent.[facility] [place] [place] 18:59 Radiology: a portable X-ray was completed at 18:00. [facility] 18:59 Urine collected. Clean catch specimen. [facility] 19:07 Primary Nurse role handed off by Bolivar Mackenzie RN [facility] 19:08 Marietta Boyd, PERI is Primary Nurse. ar 20:05 Radiology: The patient went to get his/her CT at 20:05. ar 20:08 Radiology: Patient returned from CT at 20:08. [facility] 21:05 Noe Xiong RNP is Hospitalizing Provider. kojo 21:25 COUNTY ATTORNEY called to bedside to perform NIF measurement on pt. Pt pj set up in reyna's position, nasal clamp applied to nares and pt directed to exhale entirely prior to inhalation measurement reading. COUNTY ATTORNEY measured 3 best attempts. -20, -25, -35 [...] IV Status: Infusion continued upon admission to [facility] hospital. 18:50 Drug: DuoNeb - Albuterol-Ipratropium 3 [...] Given (administered on floorr): levofloxacin 750 mg [facility] IVPB once; order lactate and/or blood cultures if for sepsis 22:51 Drug: Magnesium Sulfate 2 grams [magnesium sulfate 2 [facility] gram/50 mL (4 %) in water intravenous piggyback] Route: IV; Rate: calculated rate; Infused Over: 20 mins; Site: right antecubital; 22:51 Follow up: IV Status: Infusion continued upon admission to [facility]. Intake: 22:41 IV: 100ml; Total: 100ml. [facility] Outcome: 21:06 Decision to Hospitalize by Provider. kojo 21:30 Report given to PERI Smith 22:53 Reassessment: Visual reassessment shows no worsening [facility] symptoms, vital signs not warranted. 22:53 Patient [...] Department Policy. 23:20 Patient left the ED. [facility] 07/06 08:39 24 hour call back N/A - patient was admitted jh6 Signatures: Woody Flores, RN RN mp1 Kassy Esquivel PA-C PA-C jem Young, Scott sjy Gooshaw, Jennifer, NA NA jmg Howe, Jesse, RN RN 6 Marietta Boyd RN RN [facility] Tamara Khalil Name Value Range Interpretation Code Description Data Agueda rce(s) Supporting Document(s) ID Date Data Source [id number] 07/06/2019 03:46:00 PM [facility] Name: PAULAHENRYJHON Bong : 7 Age/Sex: 43M Ordering Provider: MARCELINA Taveras Med Rec #: [id number] Reg Status: ADM IN Room #: 210-2 Date of Service: 07/06/19 Report Number: [id number] cc:Mateo Rodríguez MD; Noe Stacy MARCELINA Xiong Send Report To: [id number] CT/CT Neck Soft Tissue w Contrast Reason [...] Date/Time: 07/06/19 1529 Transcribed Date/Time: 07/06/19 1546 Fitting Room Checker: LYNETTE Name Value Range Interpretation Code Description Data Agueda rce(s) Supporting Document(s) ID Date Data Source [id number] 07/06/2019 06:34:00 AM [facility] Name Value Range Interpretation Code Description Data Agueda rce(s) Supporting Document(s) Venous PH 7.31-7.41 Above high normal [facility] VBG PCO2 36 mmHg 42-55 Below low normal [facility] VBG PO2 67 mmHg 30-50 Above high normal [facility] VBG HCO3 24.0-28.[address] [facility] ID Date Data Source [id number] 07/05/2019 08:43:00 PM EST [facility] Name: JHON PATE : 7 Age/Sex: 43M Ordering Provider: MARIANA Jenkins Med Rec #: [id number] Reg Status: REG ER Room #: Date of Service: 07/05/19 Report Number: [id number] cc:MARIANA Jenkins; Mateo Rodríguez MD Send Report [...] 07/05/192042 Dictation Date/Time: 07/05/192042 Transcribed Date/Time: 07/05/192042 Fitting Room Checker: Name Value Range Interpretation Code Description Data Agueda rce(s) Supporting Document(s) ID Date Data Source [id number] 07/05/2019 07:46:00 PM [facility] Not detectedNot detectedNot detectedNot detectedNot detectedNot detectedNot detectedNot detectedNot detectedNot detectedNot detectedNot detectedNot detectedNot detected Methodology: Multiplexed PCR Reference Range: None detectedNot detectedNot detectedNot detectedNot detected Name Value Range Interpretation Code Description Data Agueda rce(s) Supporting Document(s) ID Date Data Source [id number] 07/05/2019 08:53:00 PM [facility] Name Value Range Interpretation Code Description Data Agueda rce(s) Supporting Document(s) Sodium 138 mmol/L 137-145 Normal (applies to non-numeric resul ts) [facility] Potassium 3.5-5.1 Normal (applies to non-numeric resul ts) [facility] Chloride 106 mmol/L 98-112 Normal (applies to non-numeric resul ts) [facility] Carbon Dioxide CO2 22.0-33.0 Normal (applies to non-numer ic results) [facility] Anion Gap 4.0-11.0 Normal (applies to non-numeric resul ts) [facility] BUN 16 mg/dL 9-20 Normal (applies to non-numeric resul ts) [facility] Creatinine 0.80-1.50 Normal (applies to non-numeric resul ts) [facility] GFR 59 mL/min >60 Below low normal [facility] Result based on MDRD formula. Glucose Level 109 mg/dL 74-99 Above high normal [facility] The reference range is only applicable w hen fasting. Calcium-Uncorrected 8.4-10.2 Normal (applies to non-nume apko results) [facility] Corrected Calcium 8.4-10.2 Normal (applies to non-numeri c results) [facility] Bilirubin,Total 0.2-1.3 Above high normal [facility] SGOT(AST) 27 U/L 17-59 Normal (applies to non-numeric resul ts) [facility] SGPT(ALT) 76 U/L 21-72 Above high normal [facility] Alkaline Phosphatase 86 U/L 38-126 Normal (applies to non-num emilia results) [facility] can increase Alkaline Phosp le vels up to 2 times the normal adult value. Normal values for children and adolescents are 2 to 3 times the normal adult value. Total Protein 6.3-8.2 Normal (applies to non-numeric re sults) [facility] Albumin 3.5-5.0 Normal (applies to non-numeric resul ts) [facility] ID Date Data Source [id number] 07/05/2019 08:53:00 PM [facility] Name Value Range Interpretation Code Description Data Agueda rce(s) Supporting Document(s) Bilirubin,Direct 0.0-0.3 Normal (applies to non-numeric results) [facility] ID Date Data Source [id number] 07/05/2019 08:53:00 PM [facility] Name Value Range Interpretation Code Description Data Agueda rce(s) Supporting Document(s) Lipase 86 U/L 73-393 Normal (applies to non-numeric resul ts) [facility] ID Date Data Source [id number] 07/05/2019 08:53:00 PM [facility] Name Value Range Interpretation Code Description Data Agueda rce(s) Supporting Document(s) B-Type Natriuretic Peptide BNP 8 pg/mL <125 N ormal (applies to non-numeric results) [facility] NT-proBNP values less than 300 pg/mL [...] acute congestive failure. ID Date Data Source [id number] 07/05/2019 07:07:00 PM [facility] Name Value Range Interpretation Code Description Data Agueda rce(s) Supporting Document(s) Troponin I 0.000-0.045 Normal (applies to non-numeric resu lts) [facility] ID Date Data Source [id number] 07/05/2019 07:04:00 PM [facility] Name Value Range Interpretation Code Description Data Agueda rce(s) Supporting Document(s) D-Dimer Quant 249 ng/mLFEU <500 Normal (applies to non-numeric results) [facility] Negative for D-Dimer. This test has f ull FDA exclusion claim at a Negative cutoff value of 500 ng/mL FEU. When the d-dimer value is used in conjunction with the clinical pretest probability (PTP) assessment model to exclude DVT and PE, results less than 500 ng/mL are negative for DVT/PE. ID Date Data Source [id number] 07/05/2019 06:46:00 PM [facility] Liter Flow: 0 On Oxygen? N Name Value Range Interpretation Code Description Data Agueda rce(s) Supporting Document(s) Venous PH 7.31-7.41 Above high normal [facility] VBG PCO2 43 mmHg 42-55 Normal (applies to non-numeric resul ts) [facility] VBG PO2 41 mmHg 30-50 Normal (applies to non-numeric resul ts) [facility] VBG HCO3 24.0-28.0 Normal (applies to non-numeric resul ts) [facility] ID Date Data Source [id number] 07/05/2019 06:38:00 PM [facility] Name Value Range Interpretation Code Description Data Agueda rce(s) Supporting Document(s) White Blood Count 4.8-10.8 Normal (applies to non-numeri c results) [facility] Red Blood Count 4.35-6.08 Normal (applies to non-numeric results) [facility] Hemoglobin 13.0-17.5 Normal (applies to non-numeric resul ts) [facility] Hematocrit 37.7-51.0 Normal (applies to non-numeric resul ts) [facility] Mean Corpuscular Volume 80-94 Normal (applies to non- numeric results) [facility] Mean Corpuscular Hemoglobin 27.0-33.0 Normal (appli es to non-numeric results) [facility] Mean Corpuscular HGB Conc 32.0-36.0 Normal (applies to no n-numeric results) [facility] Red Cell Distribution Width 11.5-14.5 Above high normal [facility] Platelet Count 301 X10 3/uL 130-450 Normal (applies to non-numeric results) [facility] Mean Platelet Volume 9.6-13.1 Normal (applies to non-num emilia results) [facility] Imm Grans% (AUTO) 1 % 0-2 Normal (applies to non-numeri c results) [facility] Neutrophils % (AUTO) 77 % 40-75 Above high normal [facility] Lymphocytes % (AUTO) 17 % 21-46 Below low normal [facility] Monocytes % (AUTO) 5 % 5-12 Normal (applies to non-numer ic results) [facility] Eosinophils % (AUTO) 0 % 1-5 Below low normal [facility] Basophils % (AUTO) 0 % 0-1 Normal (applies to non-numer ic results) [facility] Imm Grans# (AUTO) 0.00-0.50 Normal (applies to non-numeri c results) [facility] Neutrophils # (AUTO) 1.5-8.1 Normal (applies to non-num emilia results) [facility] Lymphocytes # (AUTO) 1.0-3.1 Normal (applies to non-num emilia results) [facility] Monocytes # (AUTO) 0.2-1.3 Normal (applies to non-numer ic results) [facility] Eosinophils# (AUTO) 0.0-0.5 Normal (applies to non-nume pako results) [facility] Basophils # (AUTO) 0.00-0.10 Normal (applies to non-numer ic results) [facility] ID Date Data Source [id number] 07/05/2019 06:56:00 PM EST [facility] Name Value Range Interpretation Code Description Data Agueda rce(s) Supporting Document(s) Color,Urine Yellow Normal (applies to non-numeric resu lts) [facility] Clarity,Urine Clear Normal (applies to non-numeric re sults) [facility] Specific Gilbert,Urine 1.001-1.030 Normal (applies to non- numeric results) [facility] PH,Urine 5.0-8.0 [facility] Protein,Urine Negative Normal (applies to non-numeric re sults) [facility] Glucose,Urine (UA) Negative Normal (applies to non-numer ic results) [facility] Ketones,Urine Negative Normal (applies to non-numeric re sults) [facility] Blood,Urine Negative Normal (applies to non-numeric resu lts) [facility] Bilirubin,Urine Negative Normal (applies to non-numeric results) [facility] Urobilinogen,Urine Norm 0.2-1 Normal (applies to non-numer ic results) [facility] Leukocyte Esterase,Urine Negative Normal (applies to non -numeric results) [facility] Nitrite,Urine Negative Normal (applies to non-numeric re sults) [facility] ID Date Data Source [id number] 07/06/2019 01:51:00 PM [facility] Name: JHON PATE : 7 Age/Sex: 43M Ordering Provider: MARIANA Jenkins Med Rec #: [id number] Reg Status: ADM IN Room #: 210-2 Date of Service: 07/05/19 Report Number: [id number] cc:MARIANA Jenkins; Mateo Rodríguez MD Send Report To: [id number] XRP/XR Chest Xray Portable Reason for exam: [...] Dictation Date/Time: 07/05/191818 Transcribed Date/Time: 07/06/19 1351 Fitting Room Checker: LYNETTE Name Value Range Interpretation Code Description Data Agueda rce(s) Supporting Document(s) ID Date Data Source [id number] 07/06/2019 09:17:00 PM [facility] Name: JHON PATE : 7 Age/Sex: 43M Ordering Provider: MARIANA Jenkins Med Rec #: [id number] Reg Status:ADM IN Room #: 210-2 Date of Service: 07/05/19 Report Number: [id number] cc: MARIANA Jenkins; Mateo Rodríguez MD; Milla Clement MD Send Report To: Reason for exam: CP/SOB SINUS RHYTHM MINIMAL VOLTAGE CRITERIA FOR LVH, CONSIDER NORMAL VARIANT NONSPECIFIC T-WAVE ABNORMALITY BORDERLINE ECG Physician [employer]: David Ware M.D. ECG HEART RATE: 99 /min ECG RR INTERVAL: 604 ms ECG P DURATION: 116 ms ECG QRS DURATION: 112 ms ECG MT INTERVAL: 148 ms ECG QT INTERVAL: 330 ms ECG QTC INTERVAL: 398 ms Q-T dispersion: ms ECG P AXIS: 44 deg ECG QRS AXIS: -18 deg ECG T AXIS: 0 deg REPORT SIGNATURE ON FILE 07/06/192116 Reported By: David Ware MD <<Signature on File>> Exam Date/Time: 07/05/19 1837 Order #: [id number] Dictation Date/Time: 07/06/192116 Transcribed Date/Time: 07/06/192116 Fitting Room Checker: TOBY Name Value Range Interpretation Code Description Data Agueda rce(s) Supporting Document(s) ID Date Data Source [id number] 07/05/2019 01:43:00 PM [facility] jenni Cardozo MD, Director PAGE [id number] [place] [address] [place] [address] Name: JHON PATE Rec #: [id number]: 1975 Age/Sex: 43/M Attending Provider: Lorraine Loyd MD Date of Service: 07/04/19 Location: [facility] CC: MD Mateo Winslow MD Specimen: [id number] Received: Status: ANDREY Hale Num: [id number] Collected: Type: SURGICAL Subm Doc: Lorraine Loyd [...] rce(s) Supporting Document(s) ID Date Data Source [id number] 07/08/2019 04:35:00 PM EST [facility] Name Value Range Interpretation Code Description Data Agueda rce(s) Supporting Document(s) IgG Index,CSF <=0.85 Normal (applies to non-numeric re sults) [facility] IgG,CSF <=8.1 Normal (applies to non-numeric resul ts) [facility] Albumin,CSF <=27.0 [facility] pital IgG/Albumin,CSF <=0.21 Normal (applies to non-numeric results) [facility] Synthesis Rate,CSF <=12 Normal (applies to non-numer ic results) [facility] IgG,Serum 672 mg/dL 767 - 1590 [facility] ital Albumin,S 4200 mg/dL Normal (applies to non-numeric resul ts) [facility] REFERENCE VALUE------ 3200 - 4800 IgG/Albumin,S <=0.40 Normal (applies to non-numeric re sults) [facility] Test Performed by: [facility] [address] [place] [id number] Community Resource Consultant: Noe Williamson M.D. Ph.D.; CLIA# [id number] ID Date Data Source [id number] 07/04/2019 03:32:00 PM EST [facility] Name Value Range Interpretation Code Description Data Agueda rce(s) Supporting Document(s) Tube Number,(CSF Fld) 1 Normal (applies to non-nu meric results) [facility] Volume,(CSF Fld) 1 mL Normal (applies to non-numeric results) [facility] Appearance,(CSF Fld) Normal (applies to non-num emilia results) [facility] Slide reviewed by Pathologist for conf irmation. 07/04/19 DR CARDOZO. This is a Corrected Result --- 07/04/19 1531 --- Appear(CSF Fld) previously reported as: Clear Color,(CSF Fld) Normal (applies to non-numeric results) [facility] RBC (CSF Fld) Normal (applies to non-numeric re sults) [facility] No established reference values WBC (CSF Fld) Normal (applies to non-numeric re sults) [facility] No established reference values Mononuclear %(CSF Fld) Normal (applies to non-n umeric results) [facility] No established reference values Polymononuclear %(CSF Fld) Normal (applies to n on-numeric results) [facility] No established reference values Mononuclear #(CSF Fld) Normal (applies to non-n umeric results) [facility] No established reference values Polymononuclear #(CSF Fld) Normal (applies to n on-numeric results) [facility] No established reference values Glucose,(CSF Fld) 73 mg/dL 40-70 Above high normal [facility] Total Protein,(CSF Fluid) 15-45 Above high normal [facility] ID Date Data Source [id number] 07/04/2019 03:32:00 PM EST [facility] Name Value Range Interpretation Code Description Data Agueda rce(s) Supporting Document(s) Tube Number,(CSF Fld)b 4 Normal (applies to non-n umeric results) [facility] Appearance,(CSF Fld)Tube b Normal (applies to n on-numeric results) [facility] Slide reviewed by Pathologist for conf irmation. 07/04/19 DR CARDOZO This is a Corrected Result --- 07/04/19 1531 --- Appear(CSFFld)b previously reported as: Clear Color,(CSF Fld)Tube b Normal (applies to non-nu meric results) [facility] RBC (CSF Fld)Tube b Normal (applies to non-nume pako results) [facility] No established reference values WBC (CSF Fld)Tube b Normal (applies to non-nume pako results) [facility] No established reference values Mononuclear %(CSF Fld)Tube b Normal (applies to non-numeric results) [facility] No established reference values Polymononuclear%(CSF Fld)TubeB Normal (applies to non-numeric results) [facility] No established reference values Mononuclear #(CSF Fld) Tube b Normal (applies t o non-numeric results) [facility] No established reference values Polymononuclear#(CSF Fld)TubeB Normal (applies to non-numeric results) [facility] No established reference values ID Date Data Source [id number] 07/05/2019 01:28:00 PM [facility] Name Value Range Interpretation Code Description Data Agueda rce(s) Supporting Document(s) Immunoglobulin G result 628 mg/dL 610-1,616 Normal ( applies to non-numeric results) [facility] Test performed [place] [address] ID Date Data Source [id number] 07/04/2019 12:04:00 PM [facility] Name Value Range Interpretation Code Description Data Agueda rce(s) Supporting Document(s) Glucose Level 110 mg/dL 74-99 Above high normal [facility] The reference range is only applicable w hen fasting. ID Date Data Source [id number] 07/04/2019 01:56:00 PM [facility] Hospital Name: JHON PATE : 7 Age/Sex: 43M Ordering Provider: Lorraine Loyd MD Med Rec #: [id number] Reg Status[place] [facility] Room #: Date of Service: 07/04/19 Report Number: [id number] cc: Lorraine Loyd MD; Mateo Rodríguez MD Send Report To: Reason for exam: RPREOP SINUS TACHYCARDIA ABNORMAL RHYTHM ECG Compared to 05/07/2019 there is no significant change Physician [employer]: Brian Mai M.D. ECG HEART RATE: 103 /min ECG RR INTERVAL: 578 ms ECG P DURATION: 118 ms ECG QRS DURATION: 106 ms ECG MT INTERVAL: 141 ms ECG QT INTERVAL: 322 ms ECG QTC INTERVAL: 397 ms Q-T dispersion: ms ECG P AXIS: 56 deg ECG QRS AXIS: -5 deg ECG T AXIS: -3 deg REPORT SIGNATURE ON FILE 07/04/19 1357 Reported By: Brian Mai MD, [facility] <<Signature on File>> Exam Date/Time: 07/04/19 0930 Order #: [id number] Dictation Date/Time: 07/04/196 Transcribed Date/Time: 07/04/19 135 Fitting Room Checker: TOBY Name Value Range Interpretation Code Description Data Agueda rce(s) Supporting Document(s) ID Date Data Source [id number] 06/20/2019 06:33:00 PM [facility] Name Value Range Interpretation Code Description Data Agueda rce(s) Supporting Document(s) PT 9.2-11.7 Normal (applies to non-numeric results) [facility] INR Normal (applies to non-numeric results) [facility] The use of INR is restricted to patients on stable oral anticoagulant. Therapeutic Range: 2.0 - 3.0 High Risk Range: 2.5 - 3.5 ID Date Data Source [id number] 06/20/2019 06:33:00 PM [facility] Name Value Range Interpretation Code Description Data Agueda rce(s) Supporting Document(s) PTT 23.8-37.9 Normal (applies to non-numeric results) [facility] ID Date Data Source [id number] 06/20/2019 06:22:00 PM [facility] Name Value Range Interpretation Code Description Data Agueda rce(s) Supporting Document(s) Sodium 140 mmol/L 136-145 Normal (applies to non-numeric resul ts) [facility] Potassium 3.5-5.1 Normal (applies to non-numeric resul ts) [facility] Chloride 100 mmol/L 98-107 Normal (applies to non-numeric resul ts) [facility] Carbon Dioxide CO2 21-32 Normal (applies to non-numer ic results) [facility] Anion Gap 5.0-16.0 Normal (applies to non-numeric resul ts) [facility] BUN 14 mg/dL 7-18 Normal (applies to non-numeric results) [facility] Creatinine,Serum 0.8-1.5 Normal (applies to non-numeric results) [facility] GFR >60 Normal (applies to non-numeric results) [facility] Glucose Level 114 mg/dL 60-99 Above high normal [facility] Reference range is only applicable when patient is fasting Note the following drug interference: Sulfasalazine Sulfapyridine Can see falsely depressed Can see falsely elevated result with up to 17% results with up to 11% decrease in measurement increase in measurement Recommend patients be collected for this test prior to administration of either drug. Calcium 8.5-10.1 Normal (applies to non-numeric resul ts) [facility] ID Date Data Source [id number] 06/20/2019 05:53:00 PM EST [facility] Name Value Range Interpretation Code Description Data Agueda rce(s) Supporting Document(s) White Blood Count 3.5-10.5 Above high normal [facility] Red Blood Count 4.30-5.70 Normal (applies to non-numeric results) [facility] Hemoglobin 13.5-17.5 Normal (applies to non-numeric resul ts) [facility] Hematocrit 38.8-50.0 Normal (applies to non-numeric resul ts) [facility] Mean Corpuscular Volume 81.2-95.1 Normal (applies to non- numeric results) [facility] Mean Corpuscular Hgb 25.6-32.2 Normal (applies to non-num emilia results) [facility] Mean Corpuscular Hgb Conc 32.0-36.0 Normal (applies to no n-numeric results) [facility] Red Cell Distribution Width 11.8-15.6 Normal (appli es to non-numeric results) [facility] Platelet Count 324 x10 3/uL 150-450 Normal (applies to non-numeric results) [facility] Mean Platelet Volume 9.4-12.4 Normal (applies to non-num emilia results) [facility] Neutrophils% (Auto) 31.0-71.0 Above high normal [facility] Lymphocytes% (Auto) 20.0-55.0 Below low normal [facility] Monocytes% (Auto) 4.0-12.0 Normal (applies to non-numeri c results) [facility] Eosinophils% (Auto) 1.0-8.0 Normal (applies to non-nume pako results) [facility] Basophils% (Auto) 0.0-2.0 Normal (applies to non-numeri c results) [facility] Immature Granulocytes% (Auto) 0.0-2.0 Normal (jovanni lies to non-numeric results) [facility] Neutrophils# (Auto) 1.50-6.20 Above high normal [facility] Lymphocytes# (Auto) 1.20-4.00 Normal (applies to non-nume pako results) [facility] Monocytes# (Auto) 0.00-0.90 Normal (applies to non-numeri c results) [facility] Eosinophils# (Auto) 0.00-0.50 Normal (applies to non-nume pako results) [facility] Basophils# (Auto) 0.00-0.20 Normal (applies to non-numeri c results) [facility] Immature Granulocytes# (Auto) 0.00-7.00 No rmal (applies to non-numeric results) [facility] ID Date Data Source [id number] 05/12/2019 08:30:00 AM EST [facility] Name Value Range Interpretation Code Description Data Agueda rce(s) Supporting Document(s) Sodium 139 mmol/L 137-145 Normal (applies to non-numeric resul ts) [facility] Potassium 3.5-5.1 Below low normal [facility] Chloride 106 mmol/L 98-112 Normal (applies to non-numeric resul ts) [facility] Carbon Dioxide CO2 22.0-33.0 Normal (applies to non-numer ic results) [facility] Anion Gap 4.0-11.0 Normal (applies to non-numeric resul ts) [facility] BUN 24 mg/dL 9-20 Above high normal [facility] Creatinine 0.80-1.50 Normal (applies to non-numeric resul ts) [facility] GFR 76 mL/min >60 Normal (applies to non-numeric resul ts) [facility] Result based on MDRD formula. Glucose Level 144 mg/dL 74-99 Above high normal [facility] The reference range is only applicable w hen fasting. Calcium-Uncorrected 8.4-10.2 Normal (applies to non-nume pako results) [facility] Corrected Calcium 8.4-10.2 Normal (applies to non-numeri c results) [facility] ID Date Data Source [id number] 05/12/2019 08:24:00 AM EST [facility] Name Value Range Interpretation Code Description Data Agueda rce(s) Supporting Document(s) White Blood Count 4.8-10.8 Above high normal [facility] Red Blood Count 4.35-6.08 Normal (applies to non-numeric results) [facility] Hemoglobin 13.0-17.5 Normal (applies to non-numeric resul ts) [facility] Hematocrit 37.7-51.0 Normal (applies to non-numeric resul ts) [facility] Mean Corpuscular Volume 80-94 Normal (applies to non- numeric results) [facility] Mean Corpuscular Hemoglobin 27.0-33.0 Normal (appli es to non-numeric results) [facility] Mean Corpuscular HGB Conc 32.0-36.0 Normal (applies to no n-numeric results) [facility] Red Cell Distribution Width 11.5-14.5 Normal (appli es to non-numeric results) [facility] Platelet Count 286 X10 3/uL 130-450 Normal (applies to non-numeric results) [facility] Mean Platelet Volume 9.6-13.1 Normal (applies to non-num emilia results) [facility] ID Date Data Source [id number] 05/11/2019 12:58:[address] [facility] Name Value Range Interpretation Code Description Data Agueda rce(s) Supporting Document(s) Lactic Acid 3 Hour Post 0.4-2.0 Above high normal [facility] ID Date Data Source [id number] 05/11/2019 09:12:00 AM [facility] 3 hour post Lactic if elevated? Y Name Value Range Interpretation Code Description Data Agueda rce(s) Supporting Document(s) Lactic Acid 0.4-2.0 Above high normal [facility] ID Date Data Source [id number] 05/11/2019 09:18:00 AM [facility] Name Value Range Interpretation Code Description Data Agueda rce(s) Supporting Document(s) B-Type Natriuretic Peptide BNP 20 pg/mL <125 N ormal (applies to non-numeric results) [facility] NT-proBNP values less than 300 pg/mL [...] acute congestive failure. ID Date Data Source [id number] 05/10/2019 07:18:00 PM [facility] INITAL SPECIMEN NOT RUN, TO BE REDRAW Name Value Range Interpretation Code Description Data Agueda rce(s) Supporting Document(s) Lactic Acid 3 Hour Post 0.4-2.0 Above high normal [facility] ID Date Data Source [id number] 05/10/2019 12:12:00 PM [facility] Name Value Range Interpretation Code Description Data Agueda rce(s) Supporting Document(s) Color,Urine Yellow Normal (applies to non-numeric resu lts) [facility] Clarity,Urine Clear Normal (applies to non-numeric re sults) [facility] Specific Gilbert,Urine 1.001-1.030 Normal (applies to non- numeric results) [facility] PH,Urine 5.0-8.0 Normal (applies to non-numeric resul ts) [facility] Protein,Urine Negative Normal (applies to non-numeric re sults) [facility] Glucose,Urine (UA) Negative Normal (applies to non-numer ic results) [facility] Ketones,Urine Negative Normal (applies to non-numeric re sults) [facility] Blood,Urine Negative Normal (applies to non-numeric resu lts) [facility] Bilirubin,Urine Negative Normal (applies to non-numeric results) [facility] Urobilinogen,Urine Norm 0.2-1 Normal (applies to non-numer ic results) [facility] Leukocyte Esterase,Urine Negative Normal (applies to non -numeric results) [facility] Nitrite,Urine Negative Normal (applies to non-numeric re sults) [facility] ID Date Data Source [id number] 05/11/2019 08:48:00 PM EST [facility] Name Value Range Interpretation Code Description Data Agueda rce(s) Supporting Document(s) ANCA Myeloperoxidase IgG res Normal (applies to non-numeric results) [facility] REFERENCE VALUE------ <0.4 (Negative) ANCA Proteinase3 IgG result Normal (applies to non-numeric results) [facility] REFERENCE VALUE------ <0.4 (Negative) Test Performed by: [facility] [place] [address] Community Resource Consultant: Noe Williamson M.D. Ph.D.; CLIA# [id number] ID Date Data Source [id number] 05/10/2019 11:00:00 AM EST [facility] Name Value Range Interpretation Code Description Data Agueda rce(s) Supporting Document(s) Procalcitonin 0.00-0.24 Normal (applies to non-numeric re sults) [facility] 1.Risk of Progression to severe sepsis [...] therapy is warranted. ID Date Data Source [id number] 05/10/2019 10:28:00 AM [facility] Name Value Range Interpretation Code Description Data Agueda rce(s) Supporting Document(s) Erythrocyte Sedimentation ESR 21 mm/hr 0-15 Above high normal [facility] ID Date Data Source [id number] 05/10/2019 10:26:00 AM [facility] Name Value Range Interpretation Code Description Data Agueda rce(s) Supporting Document(s) Sodium 140 mmol/L 137-145 Normal (applies to non-numeric resul ts) [facility] Potassium 3.5-5.1 Normal (applies to non-numeric resul ts) [facility] Chloride 105 mmol/L 98-112 Normal (applies to non-numeric resul ts) [facility] Carbon Dioxide CO2 22.0-33.0 Normal (applies to non-numer ic results) [facility] Anion Gap 4.0-11.0 Normal (applies to non-numeric resul ts) [facility] BUN 14 mg/dL 9-20 Normal (applies to non-numeric resul ts) [facility] Creatinine 0.80-1.50 Normal (applies to non-numeric resul ts) [facility] GFR 74 mL/min >60 Normal (applies to non-numeric resul ts) [facility] Result based on MDRD formula. Glucose Level 174 mg/dL 74-99 Above high normal [facility] The reference range is only applicable w hen fasting. Calcium-Uncorrected 8.4-10.2 Normal (applies to non-nume pako results) [facility] Corrected Calcium 8.4-10.2 Normal (applies to non-numeri c results) [facility] Bilirubin,Total 0.2-1.3 Normal (applies to non-numeric results) [facility] SGOT(AST) 12 U/L 17-59 Below low normal [facility] SGPT(ALT) 39 U/L 21-72 Normal (applies to non-numeric resul ts) [facility] Alkaline Phosphatase 67 U/L 38-126 Normal (applies to non-num emilia results) [facility] can increase Alkaline Phosp le vels up to 2 times the normal adult value. Normal values for children and adolescents are 2 to 3 times the normal adult value. Total Protein 6.3-8.2 Normal (applies to non-numeric re sults) [facility] Albumin 3.5-5.0 Normal (applies to non-numeric resul ts) [facility] ID Date Data Source [id number] 05/10/2019 10:26:00 AM [facility] Name Value Range Interpretation Code Description Data Agueda rce(s) Supporting Document(s) Magnesium 1.80-2.40 Normal (applies to non-numeric resul ts) [facility] ID Date Data Source [id number] 05/10/2019 10:26:00 AM [facility] Name Value Range Interpretation Code Description Data Agueda rce(s) Supporting Document(s) Phosphorus 2.5-4.9 Below low normal [facility] ID Date Data Source [id number] 05/10/2019 10:26:00 AM [facility] Name Value Range Interpretation Code Description Data Agueda rce(s) Supporting Document(s) C-Reactive Protein,Wide Range <3.00 Normal (applies t o non-numeric results) [facility] ID Date Data Source [id number] 05/10/2019 10:25:00 AM [facility] 3 hour post Lactic if elevated? Y Name Value Range Interpretation Code Description Data Agueda rce(s) Supporting Document(s) Lactic Acid 0.4-2.0 Above high normal [facility] ID Date Data Source [id number] 05/10/2019 09:55:00 AM EST [facility] Name Value Range Interpretation Code Description Data Agueda rce(s) Supporting Document(s) Venous PH 7.31-7.41 Normal (applies to non-numeric resul ts) [facility] VBG PCO2 39 mmHg 42-55 Below low normal [facility] VBG PO2 70 mmHg 30-50 Above high normal [facility] VBG HCO3 24.0-28.0 Normal (applies to non-numeric resul ts) [facility] ID Date Data Source [id number] 05/10/2019 09:52:00 AM EST [facility] Name Value Range Interpretation Code Description Data Agueda rce(s) Supporting Document(s) White Blood Count 4.8-10.8 Above high normal [facility] Red Blood Count 4.35-6.08 Below low normal [facility] Hemoglobin 13.0-17.5 Below low normal [facility] Hematocrit 37.7-51.0 Normal (applies to non-numeric resul ts) [facility] Mean Corpuscular Volume 80-94 Normal (applies to non- numeric results) [facility] Mean Corpuscular Hemoglobin 27.0-33.0 Normal (appli es to non-numeric results) [facility] Mean Corpuscular HGB Conc 32.0-36.0 Normal (applies to no n-numeric results) [facility] Red Cell Distribution Width 11.5-14.5 Normal (appli es to non-numeric results) [facility] Platelet Count 248 X10 3/uL 130-450 Normal (applies to non-numeric results) [facility] Mean Platelet Volume 9.6-13.1 Normal (applies to non-num emilia results) [facility] Imm Grans% (AUTO) 0.0-2.0 Normal (applies to non-numeri c results) [facility] Neutrophils % (AUTO) 43.0-75.0 Normal (applies to non-num emilia results) [facility] Lymphocytes % (AUTO) 20.5-45.5 Normal (applies to non-num emilia results) [facility] Monocytes % (AUTO) 5.5-11.7 Normal (applies to non-numer ic results) [facility] Eosinophils % (AUTO) 0.7-4.6 Normal (applies to non-num emilia results) [facility] Basophils % (AUTO) 0.2-1.2 Normal (applies to non-numer ic results) [facility] Imm Grans# (AUTO) 0.00-0.50 Normal (applies to non-numeri c results) [facility] Neutrophils # (AUTO) 1.90-7.00 Above high normal [facility] Lymphocytes # (AUTO) 1.30-3.10 Above high normal [facility] Monocytes # (AUTO) 0.40-0.70 Above high normal [facility] Eosinophils# (AUTO) 0.00-0.30 Normal (applies to non-nume pako results) [facility] Basophils # (AUTO) 0.00-0.10 Normal (applies to non-numer ic results) [facility] ID Date Data Source [id number] 05/21/2019 12:16:00 PM EST [facility] Place specimen in heel warmer til spun,s eparate immediately . Place specimen in heel warmer til spun,s eparate immediately . Name Value Range Interpretation Code Description Data Agueda rce(s) Supporting Document(s) Immunofixation Cryoglobulin Normal (applies to non-numeric results) [facility] Cryoglobulin negative. This sample had a trace amount of precipitation present, but no immunoglobulin has been detected by immunofixation. ADDITIONAL INFORMATION This test has been modified from the grating machine operator's instructions. Its performance characteristics were determined by [facility] in a manner consistent with CLIA requirements. This test has not been cleared or approved by the U.S. Food and Drug Administration. Test Performed by: [facility] - [address] [address] Community Resource Consultant: Zuri Williamson M.D. Ph.D.; CLIA# [id number] ID Date Data Source [id number] 05/29/2019 09:03:00 AM EST [facility] Place specimen in heel warmer til spun,s eparate immediately . Place specimen in heel warmer til spun,s eparate immediately . Name Value Range Interpretation Code Description Data Agueda rce(s) Supporting Document(s) Cryoglobulin,Serum Negative Normal (applies to non-numer ic results) [facility] This test is negative at 24 hours. All s amples are held and reviewed again at 7 days. If delayed precipitation occurs after 7 days, Immunofixation will be performed and an additional report will follow. Test Performed by: [place] [address] Community Resource Consultant: Noe Williamson M.D. Ph.D.; CLIA# [id number] REVISED RESULTS The 7-day test has a trace cryoprecipitate. PREVIOUSLY REPORTED Negative (Reported 05/14/2019 11:15) This test is negative at 24 hours. All samples are held and reviewed again at 7 days. If delayed precipitation occurs after 7 days, Immunofixation will be performed and an additional report will follow. (Reported 05/14/2019 11:15) Test Performed by: [place] [address] Community Resource Consultant: Noe Williamson M.D. Ph.D.; CLIA# [id number] This is a Corrected Result --- 05/20/19 1423 --- Cryoglob,Serum previously reported as: Negative %ppt This test is negative at 24 hours. All samples are held and reviewed again at 7 days. If delayed precipitation occurs after 7 days, Immunofixation will be performed and an additional report will follow. Test Performed by: [place], [place] [address] Community Resource Consultant: Noe Williamson M.D. Ph.D.; CLIA# [id number] Immunofixation Cryoglobulin Normal (applies to non-numeric results) [facility] Cryoglobulin negative. This sample had a trace amount of precipitation present, but no immunoglobulin has been detected by immunofixation. ADDITIONAL INFORMATION This test has been modified from the grating machine operator's instructions. Its performance characteristics were determined by [facility] in a manner consistent with CLIA requirements. This test has not been cleared or approved by the U.S. Food and Drug Administration. Test Performed by: [place] [address] Community Resource Consultant: Zuri Williamson M.D. Ph.D.; CLIA# [id number] ID Date Data Source [id number] 05/10/2019 02:59:00 PM [facility] Name: JHON PATE : 7 Age/Sex: 43M Ordering Provider: Jaylyn Morfin MD Med Rec #: [id number] Reg Status: ADM IN Room #: 312-1 Date of Service: 05/10/19 Report Number: [id number] cc:Mateo Rodríguez MD; Jaylyn Morfin MD Send Report To: [id number] CT/CT High Res Chest No Contrast Reason [...] Date/Time: 05/10/19 1341 Transcribed Date/Time: 05/10/19 1459 Fitting Room Checker: CHAU Name Value Range Interpretation Code Description Data Agueda rce(s) Supporting Document(s) ID Date Data Source [id number] 05/09/2019 06:41:00 PM [facility] Presumptive negative for L.pneumophila s erogroup 1 [...] rce(s) Supporting Document(s) ID Date Data Source [id number] 05/09/2019 06:41:00 PM [facility] Presumptive negative for L.pneumophila s erogroup 1 [...] rce(s) Supporting Document(s) ID Date Data Source [id number] 05/09/2019 02:00:00 PM [facility] Name Value Range Interpretation Code Description Data Agueda rce(s) Supporting Document(s) Procalcitonin 0.00-0.24 Normal (applies to non-numeric re sults) [facility] 1.Risk of Progression to severe sepsis [...] therapy is warranted. ID Date Data Source [id number] 05/09/2019 01:46:00 PM [facility] Name Value Range Interpretation Code Description Data Agueda rce(s) Supporting Document(s) Hemoglobin A1C % Less than 5.7% Above high normal [facility] HBA1C: Normal: Less than 5.7% Prediabetes: 5.7% to 6.4% Diabetes: 6.5% or higher HA1C % vs Estimated Average Glucose (eAG) % eAG % eAG 6% 126 mg/dL 10% 240 mg/dL 7% 154 mg/dL 11% 269 mg/dL 8% 183 mg/dL 12% 298 mg/dL 9% 212 mg/dL Reference: [place] [employer], 2017 ID Date Data Source [id number] 05/09/2019 12:18:00 PM [facility] Name Value Range Interpretation Code Description Data Agueda rce(s) Supporting Document(s) Lactic Acid 3 Hour Post 0.4-2.0 PH [facility] REE read back critical information 05/09/19 1217 LAB.DELEI ID Date Data Source [id number] 05/10/2019 10:38:00 AM [facility] Name: JHON PATE : 7 Age/Sex: 43M Ordering Provider: MARAINA Arboleda Med Rec #: [id number] Reg Status: ADM IN Room #: 312-1 Date of Service: 05/09/19 Report Number: [id number] cc:Mateo Rodríguez MD; MARIANA Arboleda Send Report To: [id number] US/US Duplex Lower Ext Vein Bilat Reason [...] Date/Time: 05/09/19 1134 Transcribed Date/Time: 05/10/19 1038 [facility] ist: CHAU Name Value Range Interpretation Code Description Data Agueda rce(s) Supporting Document(s) ID Date Data Source [id number] 05/14/2019 02:20:00 PM EST [facility] Name Value Range Interpretation Code Description Data Agueda rce(s) Supporting Document(s) Carnitine Total 70 nmol/mL 34-78 Normal (applies to non-numeric results) [facility] Carnitine Free (FC) 62 nmol/mL 25-54 [facility] Acylcarnitine(AC) 8 nmol/mL 5-30 Normal (applies to non-numeri c results) [facility] Carnitine AC/FC Ratio 0.1-0.8 Normal (applies to non-nu meric results) [facility] Carnitine Interpretation Normal (applies to non -numeric results) [facility] In this sample, the carnitine profile wa s essentially normal. ADDITIONAL INFORMATION This test was developed and its performance characteristics determined by [facility] in a manner consistent with CLIA requirements. This test has not been cleared or approved by the U.S. Food and Drug Administration. Test Performed by: [facility] - [address] [address] Community Resource Consultant: Noe Williamson M.D. Ph.D.; CLIA# [id number] ID Date Data Source [id number] 05/09/2019 08:00:00 AM [facility] 3 hour post Lactic if elevated? Y Name Value Range Interpretation Code Description Data Agueda rce(s) Supporting Document(s) Lactic Acid 0.4-2.0 Above high normal [facility] ID Date Data Source [id number] 05/08/2019 06:03:00 AM [facility] Name: JHON PATE : 7 Age/Sex: 43M Attending Physician: Kiek Norton MD [facility] Rec #: [id number] Admission Date: 05/07/19 Room #: 312-1 Admitting Physician: Kike Norton MD Report Number: [id number] _ cc: Mateo Rodríguez MD Send Report To: Report Status - Signed HISTORY AND PHYSICAL Date of Admission: 05/07/19 This is a 43-year-old male who has recent admission to us and then transfer. [facility]ts in [facility] in [facility]. So I see in notes that the [...] rce(s) Supporting Document(s) ID Date Data Source [id number] 05/10/2019 10:34:00 AM [facility] Name: JHON PATE : 7 Age/Sex: 43M Ordering Provider: MARIANA Orr Med Rec #: [id number] Reg Status: ADM IN Room #: 312-1 Date of Service: 05/09/19 Report Number: [id number] cc:Mateo Rodríguez MD; MARIANA Orr Send Report To: [id number] MRI/MRI Lum Spine w & wo Contrast [...] Date/Time: 05/09/19 1035 Transcribed Date/Time: 05/10/19 1034 Fitting Room Checker: CHAU Name Value Range Interpretation Code Description Data Agueda rce(s) Supporting Document(s) ID Date Data Source [id number] 05/10/2019 06:49:00 AM [facility] Name: JHON PATE : 7 Age/Sex: 43M Ordering Provider: MARIANA Orr Med Rec #: [id number] Reg Status: ADM IN Room #: 312-1 Date of Service: 05/09/19 Report Number: [id number] cc:Mateo Rodríguez MD; MARIANA Orr Send Report To: [id number] MRI/MRI T Spine w&wo Con Reason for [...] Date/Time: 05/09/19 1109 Transcribed Date/Time: 05/10/19 0649 Fitting Room Checker: EDISON Name Value Range Interpretation Code Description Data Agueda rce(s) Supporting Document(s) ID Date Data Source [id number] 05/07/2019 05:49:00 PM EST [facility] Name: JHON PATE Med Rec #: [id number] : 1975 Age/Sex: 43M Date of Service: 05/07/19 DISPOSITION SUMMARY Discharge Summary Name:Jhon Pate Emergency Department Age:43 yrs Sex:Male [...] rce(s) Supporting Document(s) ID Date Data Source [id number] 05/07/2019 05:49:00 PM [facility] Name: JHON PATE Med Rec #: [id number] : 1975 Age/Sex: 43M Date of Service: 05/07/19 PHYSICIAN CHART Physician Documentation Name: Jhon Pate Age: 43 yrs Sex: [...] he/she has never smoked tobacco. Preferred Language: Trinidadian. ROS: 18:57 ENT: Negative for injury, pain, [...] cm) 6 MDM: 18:50 Patient medically screened. [facility] 20:16 Data reviewed: vital signs, nurses notes. Data interpreted: [facility] Pulse oximetry: on 2L(s) per nasal canula, is 94 %. Interpretation:. 20:31 Antibiotic administration: Not indicated. ED course: [facility] Overall the patient did not respond well to nebulizer treatments. I was able to get his old medical record from [facility]. It appears that he was diagnosed [...] Within normal limits: TROP I < 0.045. [facility] 05/07 18:11 Order name: PT; Complete Time: 19:15 aaq 05/07 19:15 Interpretation: Within normal limits: PT 10.6; INR 0.92. [facility] 05/07 18:11 Order name: PTT; Complete Time: 19:15 aaq 05/07 19:15 Interpretation: Within normal limits: PTT 31.4. [facility] 05/07 18:11 Order name: Magnesium; Complete Time: 19:56 aaq 05/07 19:30 Interpretation: Within normal limits: MG 2.20. [facility] 05/07 18:11 Order name: Lipase; Complete Time: 19:56 q 05/07 19:30 Interpretation: Within normal limits: LIP 139. [facility] 05/07 18:22 Order name: Cardiology EKG Interpretation - Choose Reason 6 for Test 05/07 18:24 Order name: Cardiology EKG Interpretation - Choose Reason q for Test 05/07 18:56 Order name: Blood Culture - Venous [facility] 05/07 18:56 Order name: Lactic Acid; Complete Time: 19:56 [facility] 05/07 19:56 Interpretation: Abnormal: Lactic 4.6. [facility] 05/07 18:56 Order name: Respiratory Panel (Use Workup); Complete Time: [facility] 20:50 05/07 20:15 Order name: CXR 1 View (Pa OR Ap) [facility] 05/07 18:22 Order name: Emergency Room EKG Order - Use EKG Work-Up 6 /Quick Select; Complete Time: 18:50 05/07 18:24 Order name: Emergency Room EKG Order - Use EKG Work-Up q /Quick Select; Complete Time: 18:29 05/07 18:56 Order name: Collect nasal swab; Complete Time: 19:14 [facility] 05/07 19:51 Order name: Oxygen - 2L Nasal Cannula; Complete Time: 19:55 [facility] 05/07 20:36 Order name: Admit to Inpatient EDMS Dispensed Medications: 19:10 Drug: Solu-MEDROL 125 mg [Solu-Medrol (PF) 125 mg/2 mL dk2 solution for injection (2 mL)] Route: IVP; Site: right forearm; 19:56 Follow up: Response: No adverse reaction; No change in [facility] condition 19:10 Drug: DuoNeb - Albuterol-Ipratropium 3 [...] forearm; 19:55 Follow up: Response: Anxiety decreased [facility] 19:11 Drug: DuoNeb - Albuterol-Ipratropium 3 ml dk2 [ipratropium-albuterol 0.5 mg-3 mg(2.5 mg base)/3 mL nebulization soln (3 mL)] Volume: 3 ml; Route: Nebulizer; 19:55 Follow up: Response: No change in condition [facility] 20:08 Drug: NS 0.9% 3048 ml [sodium chloride 0.9 % intravenous rjh solution] Route: IV; Rate: 999 mL/hr; Site: right forearm; 20:09 Drug: Zosyn 4.5 grams [Zosyn 3.375 gram intravenous rj solution] Route: IVPB; Site: right forearm; 21:28 Follow up: Response: No adverse reaction; IV Status: [facility] Completed infusion; IV Intake: 100ml 21:30 Drug: [...] Location: Med/Surg 3(05/07/19 23:07) 2 Room Assignment: [id number](05/07/19 23:07) 2 Diagnosis - BOOP (bronchiolitis obliteran [...] Nostrom, William wln1 Domingo Garcia RN RN [facility] Corrections: (The following items were deleted from [...] rce(s) Supporting Document(s) ID Date Data Source [id number] 05/07/2019 05:49:00 PM EST [facility] Name: JHON PATE [facility] Rec #: [id number] : 1975 Age/Sex: 43M Date of Service: 05/07/19 NURSE CHART Nurse's Notes Name: Jhon Pate Age: 43 yrs Sex: Male : 1975 Arrival Date: 05/07/2019 Time: 17:49 Bed 11 Private MD: Mateo Rodríguez S Diagnosis: BOOP (bronchiolitis obliteran with organizing pneumonia);Acute respiratory failure Presentation: 05/07 17:55 Transition of care: patient was not received from another [facility] setting of care. Presenting complaint: Patient states - 2 days SOB discharged from [facility] acute rehab 3 weeks ago was here for respiratory failure CIDP. Patient denies any travel outside the [place] in the last 30 days. Patient denies exposure to sick international traveler in last 30 days. 17:55 Method Of Arrival: Walk-In [facility] 17:55 Acuity: Emergent - 2 [facility] Triage Assessment: 17:56 The patient appears distressed, The patient is cooperative. 6 Patient states the pain is currently a 10 / 10 The patient complains of pain in across chest. The patient states the pain began 2 days. The quality of the pain is described as pressure, sharp, The pain is described as continuous. 23:59 SEPSIS SCREEN: A Confirmed or Suspected Infection is [facility] Unknown, their RR rate is >20. Respiratory: [...] he/she has never smoked tobacco. Preferred Language: Trinidadian. Screenin:09 AUDIT 1. How often do you have a drink containing alcohol? [facility] 2 to 4 times a month (2 [...] Rhythm is sinus tachycardia Chest pain is [facility] denied. 23:13 The patient is not going to the ICU. jw4 Vital Signs: 17:57 Weight 101.6 kg; Height 5 ft. 8 in. (172.72 cm); sm6 17:57 BP 152 / 107; Pulse 123; Resp 26; Pulse Ox 95% on R/A; sm6 19:44 BP 147 / 89; Pulse 119; Resp 20; Pulse Ox 92% on R/A; Pain [facility] 10/10; 21:32 BP 147 / 94; Pulse 120; Resp 18; Pulse Ox 96% on 2 lpm NC; [facility] 23:07 BP 134 / 98; Pulse 122; Resp 25; Pulse Ox 94% on 2 lpm NC; jw4 Pain 10/10; 23:52 BP 138 / 88; Pulse 117; Resp 24; Pulse Ox 94% on 2 lpm NC; [facility] Pain 5/10; 17:57 Body Mass Index 34.06 (101.60 kg, 172.72 cm) [facility] Vitals: 19:48 1st contact with pt, pt's neb treatment is completed, pt [facility] still has audible wheezes and denies any relief from shortness of breath, 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 20:11 pt medicated with 1st of 3L NS bolus and 4.5 gms Zosyn IVPB [facility] per md's orders. 20:55 This RN went into pt's room to hand the 2nd antibiotic [facility] ordered for pt, pt sts the IV pump was beeping and someone came into the room and stopped the beeping, apparently this person stopped the antibiotic infusion before it was completed, restarted Zosyn as ordered. 21:32 pt visiting with family and talking on his phone in [facility] complete sentences without respiratory difficulty, vanco infusing [...] infusing per MD's orders, preparing pt for [facility] admission. 23:44 pt now has audible wheezes, no respiratory meds ordered on [facility] admission orders, call out for Dr. Ellyn friedman. 23:52 pt sts his chest pain is better at 5/10. [facility] 23:53 pt medicated with 50 mcg Fentanyl IVP for pt's c/o [facility] increasing chest pain at 6/10, pt also [...] 19:44 Domingo Garcia RN is Primary Nurse. [facility] 20:33 Kike Norton MD is Hospitalizing Provider. [facility] 23:09 CXR 1 View (Pa OR Ap) Sent. [facility] 23:52 No procedures ordered. [facility] 23:59 Radiology: a portable X-ray was completed at 23:09. [facility] Administered Medications: 19:10 Drug: Solu-MEDROL 125 mg [Solu-Medrol (PF) 125 mg/2 mL dk2 solution for injection (2 mL)] Route: IVP; Site: right forearm; 19:56 Follow up: Response: No adverse reaction; No change in [facility] condition 19:10 Drug: DuoNeb - Albuterol-Ipratropium 3 [...] forearm; 19:55 Follow up: Response: Anxiety decreased [facility] 19:11 Drug: DuoNeb - Albuterol-Ipratropium 3 ml dk2 [ipratropium-albuterol 0.5 mg-3 mg(2.5 mg base)/3 mL nebulization soln (3 mL)] Volume: 3 ml; Route: Nebulizer; 19:55 Follow up: Response: No change in condition [facility] 20:08 Drug: NS 0.9% 3048 ml [sodium chloride 0.9 % intravenous [facility] solution] Route: IV; Rate: 999 mL/hr; Site: right forearm; 20:09 Drug: Zosyn 4.5 grams [Zosyn 3.375 gram intravenous [facility] solution] Route: IVPB; Site: right forearm; 21:28 Follow up: Response: No adverse reaction; IV Status: [facility] Completed infusion; IV Intake: 100ml 21:30 Drug: vancomycin 1 grams [vancomycin 1,000 mg intravenous [facility] injection] Route: IVPB; Infused Over: 2 hrs; Site: right forearm; 23:51 Drug: fentaNYL (PF) 50 mcg [fentanyl (PF) 50 mcg/mL [facility] injection solution (1 mL)] Route: IVP; Site: right forearm; Intake: 21:28 IV: 100ml; Total: 100ml. [facility] Outcome: 20:34 Decision to Hospitalize by Provider. [facility] 23:59 Patient verbalized understanding of disposition [facility] instructions. Patient has no functional deficits. 23:59 [...] Noe Xiong wln1 Domingo Garcia RN RN [facility] Name Value Range Interpretation Code Description Data Agueda rce(s) Supporting Document(s) ID Date Data Source [id number] 05/14/2019 02:20:00 PM [facility] Value Range Interpretation Code Description Data Agueda rce(s) Supporting Document(s) DNA (Double Stranded) Ab res <30.0 Normal (applies to non-numeric results) [facility] Negative: <3 0.0 IU/mL Borderline Positive: 30.0 - 75.0 IU/mL Positive: >75.0 IU/mL Results were obtained with the [employer] dsDNA SC SHANTI assay on the [employer]. Test performed [place] [address] ID Date Data Source [id number] 05/14/2019 02:20:00 PM [facility] Value Range Interpretation Code Description Data Agueda rce(s) Supporting Document(s) ANCA Myeloperoxidase IgG res Normal (applies to non-numeric results) [facility] REFERENCE VALUE------ <0.4 (Negative) ANCA Proteinase3 IgG result Normal (applies to non-numeric results) [facility] REFERENCE VALUE------ <0.4 (Negative) Test Performed by: [place] [address] [place] [id number] Community Resource Consultant: Noe Williamson M.D. Ph.D.; CLIA# [id number] ID Date Data Source [id number] 05/14/2019 02:20:00 PM [facility] Value Range Interpretation Code Description Data Agueda rce(s) Supporting Document(s) Angiotensin Conv Enz,Serum res 24 U/L 16 - 85 N ormal (applies to non-numeric results) [facility] Test Performed by: [facility] [place] [address] Community Resource Consultant: Noe Williamson M.D. Ph.D.; CLIA# [id number] ID Date Data Source [id number] 05/17/2019 03:19:00 PM [facility] Name Value Range Interpretation Code Description Data Agueda rce(s) Supporting Document(s) Pyruvic Acid 0.08-0.16 [facility] Pyruvic Acid 0.7-1.4 [facility] ADDITIONAL INFORMATIO N This test was developed and its performance characteristics determined by [facility] in a manner consistent with CLIA requirements. This test has not been cleared or approved by the U.S. Food and Drug Administration. Test Performed by: [place] [address] Community Resource Consultant: Noe Williamson M.D. Ph.D.; CLIA# [id number] ID Date Data Source [id number] 05/08/2019 03:09:00 PM [facility] Eh's Test Completed: YMinutes Pressu re Held: 5ABG Site: Right RadialTemperature: 99Initials: FJVOn Oxygen? YOxygen [facility] Name Value Range Interpretation Code Description Data Agueda rce(s) Supporting Document(s) SUBMITTED ON ICE? Normal (applies to non-numeri c results) [facility] Temperature Normal (applies to non-numeric resu lts) [facility] PH 7.35-7.45 Normal (applies to non-numeric resul ts) [facility] PCO2 34 mmHg 32-42 Normal (applies to non-numeric resul ts) [facility] PO2 67 mmHg 75-100 Below low normal [facility] HCO3 20.0-26.0 Normal (applies to non-numeric resul ts) [facility] TCO2 23.0-27.0 Below low normal [facility] Actual Base Excess -2.4-2.3 Below low normal [facility] Standard Base Excess -2.4-2.3 Below low normal [facility] Standard Bicarbonate 22.0-26.0 Normal (applies to non-num emilia results) [facility] Oxygen Saturation 95.0-98.0 Below low normal [facility] Pt on Oxygen? Normal (applies to non-numeric re sults) [facility] %Oxygen Normal (applies to non-numeric results) [facility] Oxygen Liter Flow Normal (applies to non-numeri c results) [facility] %Inspired Oxygen Content 4 % Normal (applies to non -numeric results) [facility] Rt Rate Normal (applies to non-numeric results) [facility] Tidal Volume Normal (applies to non-numeric res ults) [facility] Resp PEEP setting Normal (applies to non-numeri c results) [facility] Assisted Control Mode Normal (applies to non-nu meric results) [facility] IPAP Normal (applies to non-numeric results) [facility] EPAP Normal (applies to non-numeric results) [facility] Pressure Support Setting Normal (applies to non -numeric results) [facility] Blood gas puncture site Normal (applies to non- numeric results) [facility] Eh Test Performed Normal (applies to non-num emilia results) [facility] Pressure Applied Time 5 min Normal (applies to non-nu meric results) [facility] ABG Drawn by Normal (applies to non-numeric res ults) [facility] ID Date Data Source [id number] 05/08/2019 03:10:00 PM EST [facility] Name Value Range Interpretation Code Description Data Agueda rce(s) Supporting Document(s) Lactic Acid 3 Hour Post 0.4-2.0 PH [facility] BARTOLO LINDSEY read back critical info rmation 05/08/19 1508 LAB.SAUCH ID Date Data Source [id number] 05/08/2019 11:01:00 AM EST [facility] 3 hour post Lactic if elevated? Y Name Value Range Interpretation Code Description Data Agueda rce(s) Supporting Document(s) Lactic Acid 0.4-2.0 PH [facility] alieal BARTOLO LINDSEY read back critical info rmation 05/08/19 1059 DAVID ID Date Data Source [id number] 05/08/2019 04:11:00 PM EST [facility] Name: JHON PATE : 7 Age/Sex: 43M Ordering Provider: Kike Norton MD Med Rec #: [id number] Reg Status: ADM IN Room #: 312-1 Date of Service: 05/08/19 Report Number: [id number] cc:Kike Norton MD; Mateo Rodríguez MD Send Report To: [id number] XRP/XR Chest 2 View [Pa & Lat] [...] Date/Time: 05/08/19 1118 Transcribed Date/Time: 05/08/19 1611 Fitting Room Checker: CHAU Name Value Range Interpretation Code Description Data Agueda rce(s) Supporting Document(s) ID Date Data Source [id number] 05/09/2019 03:22:00 PM EST [facility] Name Value Range Interpretation Code Description Data Agueda rce(s) Supporting Document(s) Sodium 140 mmol/L 137-145 Normal (applies to non-numeric resul ts) [facility] Potassium 3.5-5.1 Normal (applies to non-numeric resul ts) [facility] Chloride 106 mmol/L 98-112 Normal (applies to non-numeric resul ts) [facility] Carbon Dioxide CO2 22.0-33.0 Below low normal [facility] Anion Gap 4.0-11.0 Above high normal [facility] BUN 15 mg/dL 9-20 Normal (applies to non-numeric resul ts) [facility] Creatinine 0.80-1.50 Normal (applies to non-numeric resul ts) [facility] GFR 63 mL/min >60 Normal (applies to non-numeric resul ts) [facility] Result based on MDRD formula. Glucose Level 159 mg/dL 74-99 Above high normal [facility] The reference range is only applicable w hen fasting. Calcium-Uncorrected 8.4-10.2 Normal (applies to non-nume pako results) [facility] [facility] Calcium 8.4-10.2 Normal (applies to non-numeri c results) [facility] Bilirubin,Total 0.2-1.3 Normal (applies to non-numeric results) [facility] SGOT(AST) 18 U/L 17-59 Normal (applies to non-numeric resul ts) [facility] SGPT(ALT) 53 U/L 21-72 Normal (applies to non-numeric resul ts) [facility] Alkaline Phosphatase 76 U/L 38-126 Normal (applies to non-num emilia results) [facility] can increase Alkaline Phosp le vels up to 2 times the normal adult value. Normal values for children and adolescents are 2 to 3 times the normal adult value. Total Protein 6.3-8.2 Normal (applies to non-numeric re sults) [facility] Albumin 3.5-5.0 Normal (applies to non-numeric resul ts) [facility] ID Date Data Source [id number] 05/09/2019 03:22:00 PM EST [facility] Name Value Range Interpretation Code Description Data Agueda rce(s) Supporting Document(s) C-Reactive Protein,Wide Range <3.00 Above high normal [facility] ID Date Data Source [id number] 05/08/2019 07:35:00 AM EST [facility] Name Value Range Interpretation Code Description Data Agueda rce(s) Supporting Document(s) Troponin I 0.000-0.045 Normal (applies to non-numeric resu lts) [facility] ID Date Data Source [id number] 05/08/2019 07:23:00 AM EST [facility] Name Value Range Interpretation Code Description Data Agueda rce(s) Supporting Document(s) White Blood Count 4.8-10.8 Above high normal [facility] Red Blood Count 4.35-6.08 Normal (applies to non-numeric results) [facility] Hemoglobin 13.0-17.5 Normal (applies to non-numeric resul ts) [facility] Hematocrit 37.7-51.0 Normal (applies to non-numeric resul ts) [facility] Mean Corpuscular Volume 80-94 Normal (applies to non- numeric results) [facility] Mean Corpuscular Hemoglobin 27.0-33.0 Normal (appli es to non-numeric results) [facility] Mean Corpuscular HGB Conc 32.0-36.0 Normal (applies to no n-numeric results) [facility] Red Cell Distribution Width 11.5-14.5 Normal (appli es to non-numeric results) [facility] Platelet Count 291 X10 3/uL 130-450 Normal (applies to non-numeric results) [facility] Mean Platelet Volume 9.6-13.1 Normal (applies to non-num emilia results) [facility] Imm Grans% (AUTO) 0.0-2.0 Normal (applies to non-numeri c results) [facility] Neutrophils % (AUTO) 43.0-75.0 Above high normal [facility] Lymphocytes % (AUTO) 20.5-45.5 Below low normal [facility] Monocytes % (AUTO) 5.5-11.7 Below low normal [facility] Eosinophils % (AUTO) 0.7-4.6 Below low normal [facility] Basophils % (AUTO) 0.2-1.2 Normal (applies to non-numer ic results) [facility] Imm Grans# (AUTO) 0.00-0.50 Normal (applies to non-numeri c results) [facility] Neutrophils # (AUTO) 1.90-7.00 Above high normal [facility] Lymphocytes # (AUTO) 1.30-3.10 Normal (applies to non-num emilia results) [facility] Monocytes # (AUTO) 0.40-0.70 Below low normal [facility] Eosinophils# (AUTO) 0.00-0.30 Normal (applies to non-nume pako results) [facility] Basophils # (AUTO) 0.00-0.10 Normal (applies to non-numer ic results) [facility] ID Date Data Source [id number] 05/08/2019 12:30:00 AM [facility] Name Value Range Interpretation Code Description Data Agueda rce(s) Supporting Document(s) Lactic Acid 3 Hour Post 0.4-2.0 PH [facility] LORIE ANDREWAttila read back critical inform ation 05/08/19 0028 LAB.LACBR ID Date Data Source [id number] 05/08/2019 12:23:00 AM [facility] Name Value Range Interpretation Code Description Data Agueda rce(s) Supporting Document(s) Troponin I 0.000-0.045 Normal (applies to non-numeric resu lts) [facility] ID Date Data Source [id number] 05/07/2019 11:40:00 PM [facility] Name Value Range Interpretation Code Description Data Agueda rce(s) Supporting Document(s) Procalcitonin 0.00-0.24 Normal (applies to non-numeric re sults) [facility] 1.Risk of Progression to severe sepsis [...] therapy is warranted. ID Date Data Source [id number] 05/07/2019 11:04:00 PM [facility] Name Value Range Interpretation Code Description Data Agueda rce(s) Supporting Document(s) Venous PH 7.31-7.41 Above high normal [facility] VBG PCO2 33 mmHg 42-55 Below low normal [facility] VBG PO2 67 mmHg 30-50 Above high normal [facility] VBG HCO3 24.0-28.0 Below low normal [facility] ID Date Data Source [id number] 05/08/2019 12:55:00 PM [facility] Name: JHON PATE : 7 Age/Sex: 43M Ordering Provider: Austin Levin MD Med Rec #: [id number] Reg Status: ADM IN Room #: 312-1 Date of Service: 05/07/19 Report Number: [id number] cc:Austin Levin MD; Mateo Rodríguez MD Send Report To: [id number] XRP/XR Chest 1 View [Pa OR Ap] [...] Date/Time: 05/08/19 0636 Transcribed Date/Time: 05/08/19 1255 Fitting Room Checker: LYNETTE Name Value Range Interpretation Code Description Data Agueda rce(s) Supporting Document(s) ID Date Data Source [id number] 05/12/2019 07:19:00 PM [facility] Name Value Range Interpretation Code Description Data [facility] rce(s) Supporting Document(s) Blood Culture-Venous [facility] ID Date Data Source [id number] 05/07/2019 07:53:00 PM [facility] 3 hour post Lactic if elevated? Y Name Value Range Interpretation Code Description Data Agueda rce(s) Supporting Document(s) Lactic Acid 0.4-2.0 PH [facility] pital DR.JASON LEVIN read back critical infor miriam 05/07/191951 LAB.HAR ID Date Data Source [id number] 05/07/2019 08:48:00 PM [facility] 3 hour post Lactic if elevated? Y Not d etectedNot detectedNot detectedNot detectedNot detectedNot detectedNot detectedNot detectedNot detectedNot detectedNot detectedNot detectedNot detectedNot detected Methodology: Multiplexed PCR Reference Range: None detectedNot detectedNot detectedNot detectedNot detected Name Value Range Interpretation Code Description Data Agueda rce(s) Supporting Document(s) ID Date Data Source [id number] 05/12/2019 07:19:00 PM [facility] Name Value Range Interpretation Code Description Data Agueda rce(s) Supporting Document(s) Blood Culture-Venous [facility] ID Date Data Source [id number] 05/07/2019 07:45:00 PM EST [facility] Name Value Range Interpretation Code Description Data Agueda rce(s) Supporting Document(s) Sodium 139 mmol/L 137-145 Normal (applies to non-numeric resul ts) [facility] Potassium 3.5-5.1 Normal (applies to non-numeric resul ts) [facility] Chloride 104 mmol/L 98-112 Normal (applies to non-numeric resul ts) [facility] Carbon Dioxide CO2 22.0-33.0 Normal (applies to non-numer ic results) [facility] Anion Gap 4.0-11.0 Above high normal [facility] BUN 13 mg/dL 9-20 Normal (applies to non-numeric resul ts) [facility] Creatinine 0.80-1.50 Normal (applies to non-numeric resul ts) [facility] GFR 68 mL/min >60 Normal (applies to non-numeric resul ts) [facility] Result based on MDRD formula.Specimen li pemic, interpret with care. The reference range is only applicable when fasting. Calcium-Uncorrected 8.4-10.2 Normal (applies to non-nume pako results) [facility] Corrected Calcium 8.4-10.2 Normal (applies to non-numeri c results) [facility] Bilirubin,Total 0.2-1.3 Normal (applies to non-numeric results) [facility] Specimen lipemic, interpret with care.Sp ecimen lipemic, interpret with care. Alkaline Phosphatase 97 U/L 38-126 Normal (applies to non-num emilia results) [facility] can increase Alkaline Phosp le vels up to 2 times the normal adult value. Normal values for children and adolescents are 2 to 3 times the normal adult value. Total Protein 6.3-8.2 Normal (applies to non-numeric re sults) [facility] Albumin 3.5-5.0 Normal (applies to non-numeric resul ts) [facility] ID Date Data Source [id number] 05/07/2019 07:45:00 PM EST [facility] Name Value Range Interpretation Code Description Data Agueda rce(s) Supporting Document(s) Magnesium 1.80-2.40 Normal (applies to non-numeric resul ts) [facility] ID Date Data Source [id number] 05/07/2019 07:45:00 PM [facility] Name Value Range Interpretation Code Description Data Agueda rce(s) Supporting Document(s) Lipase 139 U/L 73-393 Normal (applies to non-numeric resul ts) [facility] ID Date Data Source [id number] 05/07/2019 07:28:00 PM [facility] Name Value Range Interpretation Code Description Data Agueda rce(s) Supporting Document(s) Troponin I 0.000-0.045 Normal (applies to non-numeric resu lts) [facility] ID Date Data Source [id number] 05/07/2019 07:15:00 PM [facility] Name Value Range Interpretation Code Description Data Agueda rce(s) Supporting Document(s) PT 9.4-12.5 Normal (applies to non-numeric results) [facility] INR Normal (applies to non-numeric results) [facility] The use of the INR is restricted to francisco javier ents on stable oral anticoagulant. Therapeutic Range: 2.0-3.0 High Risk Values: 2.5-3.5 ID Date Data Source [id number] 05/07/2019 07:15:00 PM [facility] Name Value Range Interpretation Code Description Data Agueda rce(s) Supporting Document(s) PTT 25.1-36.5 Normal (applies to non-numeric resul ts) [facility] ID Date Data Source [id number] 05/07/2019 07:04:00 PM [facility] Name Value Range Interpretation Code Description Data Agueda rce(s) Supporting Document(s) White Blood Count 4.8-10.8 Normal (applies to non-numeri c results) [facility] Red Blood Count 4.35-6.08 Normal (applies to non-numeric results) [facility] Hemoglobin 13.0-17.5 Normal (applies to non-numeric resul ts) [facility] Hematocrit 37.7-51.0 Normal (applies to non-numeric resul ts) [facility] Mean Corpuscular Volume 80-94 Normal (applies to non- numeric results) [facility] Mean Corpuscular Hemoglobin 27.0-33.0 Normal (appli es to non-numeric results) [facility] Mean Corpuscular HGB Conc 32.0-36.0 Normal (applies to no n-numeric results) [facility] Red Cell Distribution Width 11.5-14.5 Normal (appli es to non-numeric results) [facility] Platelet Count 342 X10 3/uL 130-450 Normal (applies to non-numeric results) [facility] Mean Platelet Volume 9.6-13.1 Normal (applies to non-num emilia results) [facility] Imm Grans% (AUTO) 0.0-2.0 Normal (applies to non-numeri c results) [facility] Neutrophils % (AUTO) 43.0-75.0 Normal (applies to non-num emilia results) [facility] Lymphocytes % (AUTO) 20.5-45.5 Normal (applies to non-num emilia results) [facility] Monocytes % (AUTO) 5.5-11.7 Normal (applies to non-numer ic results) [facility] Eosinophils % (AUTO) 0.7-4.6 Normal (applies to non-num emilia results) [facility] Basophils % (AUTO) 0.2-1.2 Normal (applies to non-numer ic results) [facility] Imm Grans# (AUTO) 0.00-0.50 Normal (applies to non-numeri c results) [facility] Neutrophils # (AUTO) 1.90-7.00 Normal (applies to non-num emilia results) [facility] Lymphocytes # (AUTO) 1.30-3.10 Above high normal [facility] Monocytes # (AUTO) 0.40-0.70 Above high normal [facility] Eosinophils# (AUTO) 0.00-0.30 Normal (applies to non-nume pako results) [facility] Basophils # (AUTO) 0.00-0.10 Normal (applies to non-numer ic results) [facility] ID Date Data Source [id number] 05/08/2019 04:14:00 PM [facility] Name: JHON PATE : 7 Age/Sex: 43M Ordering Provider: Kevin Crocker MD Med Rec #: [id number] Reg Status:ADM IN Room #: 312-1 Date of Service: 05/07/19 Report Number: [id number] cc: Kevin Crocker MD; Kike Norton MD; Mateo Rodríguez MD Send Report To: SINUS TACHYCARDIA NONSPECIFIC T WAVE CHANGES GROSSLY UNCHANGED FROM PRIOR ON SAME DAY [employer] Driver: Matias Vu D.O. ECG HEART RATE: 124 /min ECG RR INTERVAL: 482 ms ECG P DURATION: 114 ms ECG QRS DURATION: 102 ms ECG MT INTERVAL: 145 ms ECG QT INTERVAL: 300 ms ECG QTC INTERVAL: 412 ms Q-T dispersion: ms ECG P AXIS: 39 deg ECG QRS AXIS: -6 deg ECG T AXIS: -3 deg REPORT SIGNATURE ON FILE 05/08/191613 Reported By: Matias Vu DO <Electronically signed by Matias Vu DO in OV> * <<Signature on File>> Exam Date/Time: 05/07/19 1826 Order #: [id number] Dictation Date/Time: 05/08/191613 Transcribed Date/Time: 05/08/191613 Fitting Room Checker: TOBY Name Value Range Interpretation Code Description Data Agueda rce(s) Supporting Document(s) ID Date Data Source [id number] 05/08/2019 04:13:00 PM [facility] Name: JHON PATE : 7 Age/Sex: 43M Ordering Provider: Kevin Crocker MD Med Rec #: [id number] Reg Status:ADM IN Room #: 312-1 Date of Service: 05/07/19 Report Number: [id number] cc: Kevin Crocker MD; Kike Norton MD; Mateo Rodríguez MD Send Report To: SINUS TACHYCARDIA COMPARED TO PRIOR STUDY ON 03/19/2019 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 ECG HEART RATE: 129 /min ECG RR INTERVAL: 465 ms ECG P DURATION: 117 ms ECG QRS DURATION: 98 ms ECG MT INTERVAL: 147 ms ECG QT INTERVAL: 298 ms ECG QTC INTERVAL: 418 ms Q-T dispersion: ms ECG P AXIS: 40 deg ECG QRS AXIS: -9 deg ECG T AXIS: 1 deg REPORT SIGNATURE ON FILE 05/08/19 161 Reported By: Matias Vu DO <Electronically signed by Matias Vu DO in OV> * <<Signature on File>> Exam Date/Time: 05/07/19 1805 Order #: [id number] Dictation Date/Time: 05/08/191612 Transcribed Date/Time: 05/08/191612 Fitting Room Checker: TOBY Name Value Range Interpretation Code Description Data Agueda rce(s) Supporting Document(s) Procedure Social History Code Duration Value Status Description Data Source(s ) Smoking 06/10/2020 12:00:00 AM EST Never Smoker completed Never S moker eCW1 ([facility]) Smoking 06/10/2020 12:00:00 AM EST Never Smoker completed Never S moker eCW1 ([facility]) Smoking 06/10/2020 12:00:00 AM EST Never Smoker completed Never S moker eCW1 ([facility]) Alcohol intake 06/09/2020 12:00:00 AM EST Yes completed [facility] Smoking 06/09/2020 12:00:00 AM EST Never smoker completed Never s moker [facility] Smoking 05/27/2020 12:00:00 AM EST Never Smoker completed Never S moker eCW1 ([facility]) Smoking 05/27/2020 12:00:00 AM EST Never Smoker completed Never S moker eCW1 ([facility]) Smoking 05/27/2020 12:00:00 AM EST Patient has never smoked co mpleted Patient has never smoked [facility] ([facility] ) Smoking 04/20/2020 12:00:00 AM EST Never Smoker completed Never S moker eCW1 ([facility]) Smoking 04/20/2020 12:00:00 AM EST Never Smoker completed Never S moker eCW1 ([facility]) Smoking 04/20/2020 12:00:00 AM EST Never Smoker completed Never S moker eCW1 ([facility]) Smoking 04/20/2020 12:00:00 AM EST Never Smoker completed Never S moker eCW1 ([facility]) Smoking 04/20/2020 12:00:00 AM EST Never Smoker completed Never S moker eCW1 ([facility]) Smoking 04/20/2020 12:00:00 AM EST Never Smoker completed Never S moker eCW1 ([facility]) Smoking 04/20/2020 12:00:00 AM EST Never Smoker completed Never S moker eCW1 ([facility]) Smoking 03/30/2020 12:00:00 AM EDT Never Smoker completed Never S moker eCW1 ([facility]) Smoking 03/30/2020 12:00:00 AM EDT Never Smoker completed Never S moker eCW1 ([facility]) Smoking 03/30/2020 12:00:00 AM EDT Never Smoker completed Never S moker eCW1 ([facility]) Smoking 03/30/2020 12:00:00 AM EDT Never Smoker completed Never S moker eCW1 ([facility]) Alcohol intake 03/17/2020 12:00:00 AM EDT Current drinker of al cohol (finding) completed Current drinker of alcohol (finding) [facility] Tobacco use and exposure 03/17/2020 12:00:00 AM EDT Never used co mpleted Never used [facility] Smoking 03/17/2020 12:00:00 AM EDT Never smoker completed Never s [facility] Alcohol intake 02/07/2020 12:00:00 AM EDT Current drinker of al cohol (finding) completed Current drinker of alcohol (finding) [facility] Alcohol intake 01/03/2020 12:00:00 AM EDT Current drinker of al cohol (finding) completed Current drinker of alcohol (finding) [facility] Smoking 01/03/2020 12:00:00 AM EDT Never smoker completed Never s [facility] Smoking 12/31/2019 12:00:00 AM EDT Never Smoker completed Never S moker eCW1 ([facility]) Smoking 12/31/2019 12:00:00 AM EDT Never Smoker completed Never S moker eCW1 ([facility]) Smoking 12/31/2019 12:00:00 AM EDT Never Smoker completed Never S moker eCW1 ([facility]) Smoking 12/31/2019 12:00:00 AM EDT Never Smoker completed Never S moker eCW1 ([facility]) Smoking 12/31/2019 12:00:00 AM EDT Never Smoker completed Never S moker eCW1 ([facility]) Smoking 11/25/2019 12:00:00 AM EDT Never Smoker completed Never S moker eCW1 ([facility]) Smoking 11/25/2019 12:00:00 AM EDT Never Smoker completed Never S moker eCW1 ([facility]) Smoking 11/25/2019 12:00:00 AM EDT Never Smoker completed Never S moker eCW1 ([facility]) Smoking 11/25/2019 12:00:00 AM EDT Never Smoker completed Never S moker eCW1 ([facility]) Smoking 11/25/2019 12:00:00 AM EDT Never Smoker completed Never S moker eCW1 ([facility]) Smoking 11/25/2019 12:00:00 AM EDT Never Smoker completed Never S moker eCW1 ([facility]) Smoking 11/19/2019 12:00:00 AM EDT Never Smoker completed Never S moker eCW1 ([facility]) Vital Signs ID Date Data Source UNK Name Value Range Interpretation Code Description Data Source(s) Diastolic blood pressure 70 mm[Hg] 70 mm[Hg] eCW1 ([facility]) Systolic blood pressure 118 mm[Hg] 118 mm[Hg] e CW1 ([facility]) Body temperature 97.9 [degF] 97.9 [degF] eCW1 ( [facility]) Respiratory rate 17 /min 17 /min eCW1 ([facility]) Heart rate /min eCW1 ([facility]) Body mass index (BMI) [Ratio] 40.14 kg/m2 40.14 kg/m2 eCW1 ([facility]) Body height 68 [in_i] 68 [in_i] eCW1 ([facility] hospital) Body weight 264 [lb_av] 264 [lb_av] eCW1 ([facility]) Oxygen saturation in Arterial blood by Pulse oximetry 94 % 94 % [facility] Body mass index (BMI) [Ratio] 39.68 kg/m2 39.68 kg/m2 [facility] Body weight 118.389 kg 118.389 kg [facility] Body height 172.7 cm 172.7 cm [facility] Heart rate 88 /min 88 /min [facility] Diastolic blood pressure 62 mm[Hg] 62 mm[Hg] [facility] Systolic blood pressure 112 mm[Hg] 112 mm[Hg] [facility] Body surface area Derived from formula 2.27 m2 2.27 m2 [facility] ([facility], ) Body weight 115.668 kg 115.668 kg [facility] ([facility], ) [place] body weight 154 [lb_av] 154 [lb_av] [facility] T ([facility], ) Body mass index (BMI) [Ratio] 38.8 kg/m2 38.8 k g/m2 [facility] ([facility], ) Body weight 255.00 [lb_av] 255.00 [lb_av] [facility] ([facility], ) Body height 68 [in_i] 68 [in_i] [facility], ) 5'8" Body temperature 95.5 [degF] 95.5 [degF] [facility] ([facility]) Oxygen saturation in Arterial blood by Pulse oximetry 954 % 954 % [facility] ([facility]) Heart rate 99 /min 99 /min [facility] ([facility]) Diastolic blood pressure 78 mm[Hg] 78 mm[Hg] [facility] ([facility]) Systolic blood pressure 110 mm[Hg] 110 mm[Hg] [facility] ([facility]) Body surface area Derived from formula 2.27 m2 2.27 m2 [facility] ([facility]) Body weight 116.122 kg 116.122 kg [facility] ([facility]) [place] body weight 154 [lb_av] 154 [lb_av] [facility] Body mass index (BMI) [Ratio] 38.9 kg/m2 38.9 k g/m2 [facility] ([facility]) Body weight 256.00 [lb_av] 256.00 [lb_av] [facility]) Body height 68 [in_i] 68 [in_i] [facility] ([facility]) 5'8" Body temperature 97.2 [degF] 97.2 [degF] [facility] ([facility]) Oxygen saturation in Arterial blood by Pulse oximetry 954 % 954 % [facility] ([facility]) Heart rate 108 /min 108 /min [facility] ([facility]) Diastolic blood pressure 84 mm[Hg] 84 mm[Hg] [facility] ([facility]) Systolic blood pressure 122 mm[Hg] 122 mm[Hg] [facility] ([facility]) Heart rate 113 /min 113 /min [facility] ([facility]) Diastolic blood pressure 80 mm[Hg] 80 mm[Hg] [facility] ([facility]) Systolic blood pressure 112 mm[Hg] 112 mm[Hg] [facility] ([facility]) Body surface area Derived from formula 2.27 m2 2.27 m2 [facility] ([facility]) Body weight 116.575 kg 116.575 kg [facility] ([facility]) [place] body weight 154 [lb_av] 154 [lb_av] [facility] ([facility]) Body mass index (BMI) [Ratio] 39.1 kg/m2 39.1 k g/m2 [facility] ([facility]) Body weight 257.00 [lb_av] 257.00 [lb_av] [facility] ([facility]) Body height 68 [in_i] 68 [in_i] [facility] ([facility]) 5'8" Oxygen saturation in Arterial blood by Pulse oximetry 933 % 933 % [facility] ([facility]) Systolic blood pressure 122 mm[Hg] 122 mm[Hg] e CW1 ([facility]) Body temperature 97.5 [degF] 97.5 [degF] eCW1 ( [facility]) Respiratory rate 18 /min 18 /min eCW1 ([facility] hospital) Heart rate /min eCW1 ([facility]) Body mass index (BMI) [Ratio] 39.68 kg/m2 39.68 kg/m2 W1 ([facility]) Body height 68 [in_i] 68 [in_i] eCW1 (Critical [facility] hospital) Body weight 261 [lb_av] 261 [lb_av] eCW1 ([facility]) Diastolic blood pressure 80 mm[Hg] 80 mm[Hg] eCW1 ([facility]) Body weight 114.307 kg 114.307 kg [facility] ([facility]) [place] body weight 154 [lb_av] 154 [lb_av] MEDEN T ([facility]) Body mass index (BMI) [Ratio] 38.3 kg/m2 38.3 k g/m2 [facility] ([facility]) Body weight 252.00 [lb_av] 252.00 [lb_av] [facility] ([facility]) Body height 68 [in_i] 68 [in_i] [facility] ([facility]) 5'8" Body temperature 97.4 [degF] 97.4 [degF] [facility] ([facility]) Oxygen saturation in Arterial blood by Pulse oximetry 953 % 953 % [facility] ([facility]) Heart rate 118 /min 118 /min [facility] ([facility]) Diastolic blood pressure 82 mm[Hg] 82 mm[Hg] [facility] ([facility]) Systolic blood pressure 110 mm[Hg] 110 mm[Hg] M COUNTS INCLUDE 234 BEDS AT THE [facility] ([facility]) Body weight 115.668 kg 115.668 kg [facility] ([facility]) [place] body weight 154 [lb_av] 154 [lb_av] [facility] ([facility]) Body mass index (BMI) [Ratio] 38.8 kg/m2 38.8 k g/m2 [facility] ([facility]) Body weight 255.00 [lb_av] 255.00 [lb_av] [facility] ([facility]) Body height 68 [in_i] 68 [in_i] [facility] ([facility]) 5'8" Body temperature 96.3 [degF] 96.3 [degF] [facility] ([facility]) Oxygen saturation in Arterial blood by Pulse oximetry 963 % 963 % [facility] ([facility]) Heart rate 109 /min 109 /min [facility] ([facility]) Diastolic blood pressure 82 mm[Hg] 82 mm[Hg] [facility] ([facility]) Systolic blood pressure 110 mm[Hg] 110 mm[Hg] M [facility] ([facility]) Diastolic blood pressure 54 mm[Hg] 54 mm[Hg] eCW1 ([facility]) Systolic blood pressure 124 mm[Hg] 124 mm[Hg] e CW1 ([facility]) Body temperature 97.0 [degF] 97.0 [degF] eCW1 ( [facility]) Respiratory rate 21 /min 21 /min eCW1 ([facility] Heart rate /min eCW1 ([facility]) Body mass index (BMI) [Ratio] 38.92 kg/m2 38.92 kg/m2 eCW1 ([facility]) Body height 68 [in_i] 68 [in_i] eCW1 ([facility]) Body weight 256 [lb_av] 256 [lb_av] eCW1 ([facility]) Diastolic blood pressure 80 mm[Hg] 80 mm[Hg] eCW1 ([facility]) Systolic blood pressure 110 mm[Hg] 110 mm[Hg] e CW1 ([facility]) Body temperature 97.2 [degF] 97.2 [degF] eCW1 ( [facility]) Respiratory rate 20 /min 20 /min eCW1 ([facility]) Heart rate 90 /min 90 /min eCW1 ([facility]) Body mass index (BMI) [Ratio] 38.46 kg/m2 38.46 kg/m2 eCW1 ([facility]) Body height 68 [in_i] 68 [in_i] eCW1 ([facility]) Body weight 253 [lb_av] 253 [lb_av] eCW1 ([facility]) Body weight 115.668 kg 115.668 kg [facility] ([facility], ) [place] body weight 154 [lb_av] 154 [lb_av] MEDEN T ([facility], ) Body mass index (BMI) [Ratio] 38.8 kg/m2 38.8 k g/m2 [facility] ([facility], ) Body weight 255.00 [lb_av] 255.00 [lb_av] MEDEN T ([facility], ) Body height 68 [in_i] 68 [in_i] [facility] ([facility], ) 5'8" Body temperature 98.4 [degF] 98.4 [degF] [facility] ([facility], ) Oxygen saturation in Arterial blood by Pulse oximetry 952 % 952 % [facility] ([facility], ) Heart rate 88 /min 88 /min [facility] ([facility], ) Diastolic blood pressure 70 mm[Hg] 70 mm[Hg] MEDENT ([facility], ) Systolic blood pressure 120 mm[Hg] 120 mm[Hg] M EDCYNDI ([facility], ) Diastolic blood pressure 78 mm[Hg] 78 mm[Hg] eCW1 ([facility]) Systolic blood pressure 124 mm[Hg] 124 mm[Hg] e CW1 ([facility]) Body temperature 98.1 [degF] 98.1 [degF] eCW1 ( [facility]) Respiratory rate 24 /min 24 /min eCW1 ([facility]) Heart rate 118 /min 118 /min eCW1 ([facility]) Body mass index (BMI) [Ratio] 38.92 kg/m2 38.92 kg/m2 W1 ([facility]) Body height 68 [in_i] 68 [in_i] eCW1 ([facility]) Body weight 256 [lb_av] 256 [lb_av] eCW1 ([facility]) Diastolic blood pressure 80 mm[Hg] 80 mm[Hg] eCW1 ([facility]) Systolic blood pressure 122 mm[Hg] 122 mm[Hg] e CW1 ([facility]) Body temperature 97.4 [degF] 97.4 [degF] eCW1 ( [facility]) Respiratory rate 18 /min 18 /min eCW1 ([facility]) Heart rate 88 /min 88 /min eCW1 ([facility]) Body mass index (BMI) [Ratio] 38.62 kg/m2 38.62 kg/m2 eCW1 ([facility]) Body height 68 [in_i] 68 [in_i] eCW1 ([facility]) Body weight 254 [lb_av] 254 [lb_av] eCW1 ([facility]) Diastolic blood pressure 80 mm[Hg] 80 mm[Hg] eCW1 ([facility]) Systolic blood pressure 144 mm[Hg] 144 mm[Hg] e CW1 ([facility]) Body temperature 97.2 [degF] 97.2 [degF] eCW1 ( [facility]) Respiratory rate 18 /min 18 /min eCW1 ([facility]) Heart rate 134 /min 134 /min eCW1 ([facility]) Body mass index (BMI) [Ratio] 37.55 kg/m2 37.55 kg/m2 eCW1 ([facility]) Body height 68 [in_us] 68 [in_us] eCW1 ([facility]) Body weight Measured 247 [lb_av] 247 [lb_av] eC W1 ([facility]) Body weight 112.946 kg 112.946 kg MEDENT ([facility], ) Body mass index (BMI) [Ratio] 37.9 kg/m2 37.9 k g/m2 [facility] ([facility]) Body weight 249.00 [lb_av] 249.00 [lb_av] MEDEN T ([facility]) Body height 68 [in_i] 68 [in_i] MEDENT ([facility]) 5'8" Body temperature 97.0 [degF] 97.0 [degF] [facility] ([facility]) Oxygen saturation in Arterial blood by Pulse oximetry 96 % 96 % [facility] ([facility]) Heart rate 79 /min 79 /min [facility] ([facility]) Diastolic blood pressure 78 mm[Hg] 78 mm[Hg] [facility] ([facility]) Systolic blood pressure 128 mm[Hg] 128 mm[Hg] M EDENT ([facility]) Body mass index (BMI) [Ratio] 0.8 kg/m2 0.8 kg /m2 [facility] ([facility]) Body weight 68.00 [lb_av] 68.00 [lb_av] [facility]) Body height 240 [in_i] 240 [in_i] [facility] ([facility]) 20'0" Respiratory rate 12 /min 12 /min [facility] ( [facility]) Body weight 107.503 kg 107.503 kg MEDENT ([facility]) Body mass index (BMI) [Ratio] 36.0 kg/m2 36.0 k g/m2 MED[facility] ([facility]) Body weight 237.00 [lb_av] 237.00 [lb_av] MEDEN T ([facility]) Body height 68 [in_i] 68 [in_i] MEDENT ([facility]) 5'8" Oxygen saturation in Arterial blood by Pulse oximetry 94 % 94 % [facility] ([facility]) Heart rate 112 /min 112 /min MEDENT ([facility]) Diastolic blood pressure 80 mm[Hg] 80 mm[Hg] MEDENT ([facility]) Systolic blood pressure 120 mm[Hg] 120 mm[Hg] M [facility] ([facility]) Diastolic blood pressure 88 mm[Hg] 88 mm[Hg] eCW1 ([facility]) Systolic blood pressure 132 mm[Hg] 132 mm[Hg] e CW1 ([facility]) Body temperature 97.8 [degF] 97.8 [degF] eCW1 ( [facility]) Respiratory rate 18 /min 18 /min eCW1 ([facility]) Heart rate 106 /min 106 /min eCW1 ([facility]) Body mass index (BMI) [Ratio] 36.94 kg/m2 36.94 kg/m2 W1 ([facility]) Body height 68 [in_us] 68 [in_us] eCW1 ([facility]) Body weight Measured 243 [lb_av] 243 [lb_av] eC W1 ([facility]) Body temperature 97.9 [degF] 97.9 [degF] eCW1 ( [facility]) Body height 68 [in_us] 68 [in_us] eCW1 ([facility]) Body weight Measured 225 [lb_av] 225 [lb_av] eC W1 ([facility]) Body height 68 [in_us] 68 [in_us] eCW1 ([facility]) Body mass index (BMI) [Ratio] 34.21 kg/m2 34.21 kg/m2 eCW1 ([facility]) Heart rate 100 /min 100 /min eCW1 ([facility]) Respiratory rate 16 /min 16 /min eCW1 ([facility]) Body temperature 97.8 [degF] 97.8 [degF] eCW1 ( [facility]) Systolic blood pressure 132 mm[Hg] 132 mm[Hg] e CW1 ([facility]) Diastolic blood pressure 88 mm[Hg] 88 mm[Hg] eCW1 ([facility]) Body weight Measured 224 [lb_av] 224 [lb_av] eC W1 ([facility]) Body height 68 [in_us] 68 [in_us] eCW1 ([facility]) Body mass index (BMI) [Ratio] 34.06 kg/m2 34.06 kg/m2 eCW1 ([facility]) Heart rate 112 /min 112 /min eCW1 ([facility]) Respiratory rate 18 /min 18 /min eCW1 ([facility]) Body temperature 98.4 [degF] 98.4 [degF] eCW1 ( [facility]) Systolic blood pressure 138 mm[Hg] 138 mm[Hg] e CW1 ([facility]) Diastolic blood pressure 78 mm[Hg] 78 mm[Hg] eCW1 ([facility]) ID Date Data Source [id number] 03/24/2020 09:18:31 AM [facility] Name Value Range Interpretation Code Description Data Source(s) WEIGHT RECORDED 247 lb 247 lb [facility] Body height Measured 68 in 68 in [facility] ID Date Data Source [id number] 02/10/2020 09:50:44 AM [facility] Name Value Range Interpretation Code Description Data Source(s) WEIGHT RECORDED 199 lb 199 lb [facility] Body height Measured 67.99 in 67.99 in [facility] ID Date Data Source [id number] 01/06/2020 09:56:00 AM EDT [facility] Name Value Range Interpretation Code Description Data Source(s) Weight (Calculated Kilograms) 106.14 106.14 [facility] Height (Calculated Centimeters) 172.72 172. 72 [facility] Body Mass Index (BMI) 35.6 35.6 [facility] ID Date Data Source [id number] 01/06/2020 09:21:12 AM [facility] Name Value Range Interpretation Code Description Data Source(s) WEIGHT RECORDED 199 lb 199 lb [facility] Body height Measured 67.99 in 67.99 in [facility] ID Date Data Source [id number] 11/08/2019 11:32:[address] [facility] Name Value Range Interpretation Code Description Data Source(s) Weight (Calculated Kilograms) 106.14 106.14 [facility] Height (Calculated Centimeters) 172.72 172. 72 [facility] Body Mass Index (BMI) 35.6 35.6 [facility] ID Date Data Source [id number] 10/03/2019 08:44:[address] [facility] Name Value Range Interpretation Code Description Data Source(s) Weight (Calculated Kilograms) 106.14 106.14 [facility] Height (Calculated Centimeters) 172.72 172. 72 [facility] Body Mass Index (BMI) 35.6 35.6 [facility] Weight (Calculated Kilograms) 106.14 106.14 [facility] Height (Calculated Centimeters) 172.72 172. 72 [facility] Body Mass Index (BMI) 35.6 35.6 [facility] ID Date Data Source [id number] 09/20/2019 12:41:[address] [facility] Name Value Range Interpretation Code Description Data Source(s) Weight (Calculated Kilograms) 106.14 106.14 [facility] Height (Calculated Centimeters) 172.72 172. 72 [facility] Body Mass Index (BMI) 35.6 35.6 [facility] ID Date Data Source [id number] 10/02/2019 09:02:[address] [facility] Name Value Range Interpretation Code Description Data Source(s) Weight (Calculated Kilograms) 106.14 106.14 [facility] Height (Calculated Centimeters) 172.72 172. 72 [facility] Body Mass Index (BMI) 35.6 35.6 [facility] Weight (Calculated Kilograms) 106.14 106.14 [facility] Height (Calculated Centimeters) 172.72 172. 72 [facility] Body Mass Index (BMI) 35.6 35.6 [facility] Weight (Calculated Kilograms) 106.14 106.14 [facility] Height (Calculated Centimeters) 172.72 172. 72 [facility] Body Mass Index (BMI) 35.6 35.6 [facility] ID Date Data Source [id number] 09/11/2019 10:00:[address] [facility] Name Value Range Interpretation Code Description Data Source(s) Weight (Calculated Kilograms) 106.14 106.14 [facility] Height (Calculated Centimeters) 172.72 172. 72 [facility] Body Mass Index (BMI) 35.6 35.6 [facility] Weight (Calculated Kilograms) 106.14 106.14 [facility] Height (Calculated Centimeters) 172.72 172. 72 [facility] Body Mass Index (BMI) 35.6 35.6 [facility] Weight (Calculated Kilograms) 106.14 106.14 [facility] Height (Calculated Centimeters) 172.72 172. 72 [facility] Body Mass Index (BMI) 35.6 35.6 [facility] ID Date Data Source [id number] 09/12/2019 09:58:[address] [facility] Name Value Range Interpretation Code Description Data Source(s) Weight (Calculated Kilograms) 106.14 106.14 [facility] Height (Calculated Centimeters) 172.72 172. 72 [facility] Body Mass Index (BMI) 35.6 35.6 [facility] ID Date Data Source [id number] 09/16/2019 06:45:00 AM EDT [facility] Name Value Range Interpretation Code Description Data Source(s) Weight (Calculated Kilograms) 106.14 106.14 [facility] Height (Calculated Centimeters) 172.72 172. 72 [facility] Body Mass Index (BMI) 35.6 35.6 [facility] Weight (Calculated Kilograms) 106.14 106.14 [facility] Height (Calculated Centimeters) 172.72 172. 72 [facility] Body Mass Index (BMI) 35.6 35.6 [facility] Weight (Calculated Kilograms) 106.14 106.14 [facility] Height (Calculated Centimeters) 172.72 172. 72 [facility] Body Mass Index (BMI) 35.6 35.6 [facility] ID Date Data Source [id number] 10/03/2019 11:20:[address] [facility] Name Value Range Interpretation Code Description Data Source(s) Weight (Calculated Kilograms) 106.14 106.14 [facility] Height (Calculated Centimeters) 172.72 172. 72 [facility] Body Mass Index (BMI) 35.6 35.6 [facility] ID Date Data Source [id number] 07/20/2019 12:07:[address] [facility] Name Value Range Interpretation Code Description Data Source(s) Weight (Calculated Kilograms) 106.14 106.14 [facility] Height (Calculated Centimeters) 172.72 172. 72 [facility] Body Mass Index (BMI) 35.6 35.6 [facility] ID Date Data Source [id number] 10/03/2019 11:20:00 AM T [facility] Name Value Range Interpretation Code Description Data Source(s) Weight (Calculated Kilograms) 106.14 106.14 [facility] Height (Calculated Centimeters) 172.72 172. 72 [facility] Body Mass Index (BMI) 35.6 35.6 [facility] ID Date Data Source [id number] 07/10/2019 07:07:[address] [facility] Name Value Range Interpretation Code Description Data Source(s) Weight Measurement Method 5 5 [facility] Weight (Calculated Kilograms) 106.14 106.14 [facility] Weight 3744 3744 [facility] Temperature Source 7 7 [facility] Temperature 98.0 98.0 [facility] Respiratory Effort 15 15 [facility] Respiratory Rate 18 18 [facility] Pulse Assessment Method 4 4 [facility] Pulse Rate 103 103 [facility] Height (Calculated Centimeters) 172.72 172. 72 [facility] Height 68 68 [facility] Blood Pressure 137/91 137/91 [facility] Body Mass Index (BMI) 35.6 35.6 [facility] Weight Measurement Method 5 5 [facility] Weight (Calculated Kilograms) 106.14 106.14 [facility] Weight 3744 3744 [facility] Temperature Source 7 7 [facility] Temperature 98.0 98.0 [facility] Respiratory Effort 15 15 [facility] Respiratory Rate 18 18 [facility] Pulse Assessment Method 4 4 [facility] Pulse Rate 103 103 [facility] Height (Calculated Centimeters) 172.72 172. 72 [facility] Height 68 68 [facility] Blood Pressure 137/91 137/91 [facility] Body Mass Index (BMI) 35.6 35.6 [facility] Weight Measurement Method 5 5 [facility] Weight (Calculated Kilograms) 106.14 106.14 [facility] Weight 3744 3744 [facility] Temperature Source 6 6 [facility] Temperature 98.0 98.0 [facility] Respiratory Effort 15 15 [facility] Respiratory Rate 16 16 [facility] Pulse Assessment Method 4 4 [facility] Pulse Rate 86 86 [facility] Height (Calculated Centimeters) 172.72 172. 72 [facility] Height 68 68 [facility] Blood Pressure 125/81 125/81 [facility] Body Mass Index (BMI) 35.6 35.6 [facility] Weight (Calculated Kilograms) 105.60 105.60 [facility] Height (Calculated Centimeters) 172.72 172. 72 [facility] Body Mass Index (BMI) 35.4 35.4 [facility] Weight (Calculated Kilograms) 105.60 105.60 [facility] Height (Calculated Centimeters) 172.72 172. 72 [facility] Body Mass Index (BMI) 35.4 35.4 [facility] Weight (Calculated Kilograms) 105.60 105.60 [facility] Height (Calculated Centimeters) 172.72 172. 72 [facility] Body Mass Index (BMI) 35.4 35.4 [facility] ID Date Data Source [id number] 09/18/2019 12:26:00 PM EDT [facility] Name Value Range Interpretation Code Description Data Source(s) Weight Measurement Method 1 1 [facility] Weight (Calculated Kilograms) 105.60 105.60 [facility] Weight 3744 3744 [facility] Temperature 98.9 98.9 [facility] Respiratory Effort 2 2 [facility] Respiratory Rate 18 18 [facility] Pulse Rate 94 94 [facility] Height (Calculated Centimeters) 172.72 172. 72 [facility] Height 68 68 [facility] Blood Pressure 134/83 134/83 [facility] Body Mass Index (BMI) 35.4 35.4 [facility] Weight Measurement Method 1 1 [facility] Weight (Calculated Kilograms) 105.60 105.60 [facility] Weight 3744 3744 [facility] Temperature 98.9 98.9 [facility] Respiratory Effort 2 2 [facility] Respiratory Rate 18 18 [facility] Pulse Rate 94 94 [facility] Height (Calculated Centimeters) 172.72 172. 72 [facility] Height 68 68 [facility] Blood Pressure 134/83 134/83 [facility] Body Mass Index (BMI) 35.4 35.4 [facility] Weight (Calculated Kilograms) 105.60 105.60 [facility] Weight 3744 3744 [facility] Height (Calculated Centimeters) 172.72 172. 72 [facility] Height 68 68 [facility] Body Mass Index (BMI) 35.4 35.4 [facility] ID Date Data Source [id number] 07/13/2019 01:06:[address] [facility] Name Value Range Interpretation Code Description Data Source(s) Weight (Calculated Kilograms) 105.60 105.60 [facility] Height (Calculated Centimeters) 172.72 172. 72 [facility] Body Mass Index (BMI) 35.4 35.4 [facility] Weight (Calculated Kilograms) 105.60 105.60 [facility] Height (Calculated Centimeters) 172.72 172. 72 [facility] Body Mass Index (BMI) 35.4 35.4 [facility] Weight (Calculated Kilograms) 105.60 105.60 [facility] Height (Calculated Centimeters) 172.72 172. 72 [facility] Body Mass Index (BMI) 35.4 35.4 [facility] ID Date Data Source [id number] 07/31/2019 09:57:00 AM [facility] Name Value Range Interpretation Code Description Data Source(s) Weight (Calculated Kilograms) 105.60 105.60 [facility] Height (Calculated Centimeters) 172.72 172. 72 [facility] Body Mass Index (BMI) 35.4 35.4 [facility] Weight (Calculated Kilograms) 105.60 105.60 [facility] Height (Calculated Centimeters) 172.72 172. 72 [facility] Body Mass Index (BMI) 35.4 35.4 [facility] ID Date Data Source [id number] 07/04/2019 11:07:00 AM [facility] Name Value Range Interpretation Code Description Data Source(s) Weight (Calculated Kilograms) 105.60 105.60 [facility] Height (Calculated Centimeters) 172.72 172. 72 [facility] Body Mass Index (BMI) 35.4 35.4 [facility] ID Date Data Source [id number] 07/11/2019 10:03:00 AM [facility] Name Value Range Interpretation Code Description Data Source(s) Weight (Calculated Kilograms) 105.60 105.60 [facility] Height (Calculated Centimeters) 172.72 172. 72 [facility] Body Mass Index (BMI) 35.4 35.4 [facility] ID Date Data Source [id number] 06/27/2019 11:10:00 AM [facility] Name Value Range Interpretation Code Description Data Source(s) Weight (Calculated Kilograms) 105.60 105.60 [facility] Height (Calculated Centimeters) 172.72 172. 72 [facility] Body Mass Index (BMI) 35.4 35.4 [facility] ID Date Data Source [id number] 06/26/2019 11:10:00 AM [facility] Name Value Range Interpretation Code Description Data Source(s) Weight (Calculated Kilograms) 105.60 105.60 [facility] Height (Calculated Centimeters) 172.72 172. 72 [facility] Body Mass Index (BMI) 35.4 35.4 [facility] Weight (Calculated Kilograms) 105.60 105.60 [facility] Height (Calculated Centimeters) 172.72 172. 72 [facility] Body Mass Index (BMI) 35.4 35.4 [facility] Weight (Calculated Kilograms) 105.60 105.60 [facility] Height (Calculated Centimeters) 172.72 172. 72 [facility] Body Mass Index (BMI) 35.4 35.4 [facility] ID Date Data Source [id number] 06/14/2019 08:58:00 AM [facility] Hospital Name Value Range Interpretation Code Description Data Source(s) Weight (Calculated Kilograms) 105.60 105.60 [facility] Height (Calculated Centimeters) 172.72 172. 72 [facility] Body Mass Index (BMI) 35.4 35.4 [facility] ID Date Data Source [id number] 07/11/2019 09:51:00 AM [facility] Hospital Name Value Range Interpretation Code Description Data Source(s) Weight (Calculated Kilograms) 105.60 105.60 [facility] Height (Calculated Centimeters) 172.72 172. 72 [facility] Body Mass Index (BMI) 35.4 35.4 [facility] ID Date Data Source [id number] 06/07/2019 09:23:00 AM [facility] Hospital Name Value Range Interpretation Code Description Data Source(s) Weight (Calculated Kilograms) 105.60 105.60 [facility] Height (Calculated Centimeters) 172.72 172. 72 [facility] Body Mass Index (BMI) 35.4 35.4 [facility] ID Date Data Source [id number] 07/09/2019 09:32:00 AM [facility] Hospital Name Value Range Interpretation Code Description Data Source(s) Weight Measurement Method 5 5 [facility] Weight (Calculated Kilograms) 105.60 105.60 [facility] Weight 3724.93 3724.93 [facility] Temperature Source 7 7 [facility] Temperature 98.6 98.6 [facility] Respiratory Effort 1 1 [facility] Respiratory Rate 17 17 [facility] Pulse Assessment Method 4 4 [facility] Pulse Rate 109 109 [facility] Height (Calculated Centimeters) 172.72 172. 72 [facility] Height 68 68 [facility] Blood Pressure 140/84 140/84 [facility] Body Mass Index (BMI) 35.4 35.4 [facility] Weight Measurement Method 5 5 [facility] Weight (Calculated Kilograms) 105.60 105.60 [facility] Weight 3724.93 3724.93 [facility] Temperature Source 7 7 [facility] Temperature 98.6 98.6 [facility] Respiratory Effort 1 1 [facility] Respiratory Rate 17 17 [facility] Pulse Assessment Method 4 4 [facility] Pulse Rate 109 109 [facility] Height (Calculated Centimeters) 172.72 172. 72 [facility] Height 68 68 [facility] Blood Pressure 140/84 140/84 [facility] Body Mass Index (BMI) 35.4 35.4 [facility] Weight Measurement Method 5 5 [facility] Weight (Calculated Kilograms) 105.60 105.60 [facility] Weight 3724.93 3724.93 [facility] Temperature Source 7 7 [facility] Temperature 98.6 98.6 [facility] Respiratory Effort 1 1 [facility] Respiratory Rate 17 17 [facility] Pulse Assessment Method 4 4 [facility] Pulse Rate 109 109 [facility] Height (Calculated Centimeters) 172.72 172. 72 [facility] Height 68 68 [facility] Blood Pressure 140/84 140/84 [facility] Body Mass Index (BMI) 35.4 35.4 [facility] Weight Measurement Method 5 5 [facility] Weight (Calculated Kilograms) 105.60 105.60 [facility] Weight 3724.93 3724.93 [facility] Temperature Source 7 7 [facility] Temperature 98.5 98.5 [facility] Respiratory Effort 1 1 [facility] Respiratory Rate 19 19 [facility] Pulse Assessment Method 4 4 [facility] Pulse Rate 101 101 [facility] Height (Calculated Centimeters) 172.72 172. 72 [facility] Height 68 68 [facility] Blood Pressure 121/87 121/87 [facility] Body Mass Index (BMI) 35.4 35.4 [facility] Weight Measurement Method 5 5 [facility] Weight (Calculated Kilograms) 105.60 105.60 [facility] Weight 3724.93 3724.93 [facility] Temperature Source 7 7 [facility] Temperature 99.0 99.0 [facility] Respiratory Effort 15 15 [facility] Respiratory Rate 14 14 [facility] Pulse Assessment Method 4 4 [facility] Pulse Rate 124 124 [facility] Height (Calculated Centimeters) 172.72 172. 72 [facility] Height 68 68 [facility] Blood Pressure 130/78 130/78 [facility] Body Mass Index (BMI) 35.4 35.4 [facility] Weight Measurement Method 5 5 [facility] Weight (Calculated Kilograms) 105.60 105.60 [facility] Weight 3724.93 3724.93 [facility] Temperature Source 7 7 [facility] Temperature 98.2 98.2 [facility] Respiratory Rate 28 28 [facility] Pulse Assessment Method 4 4 [facility] Pulse Rate 120 120 [facility] Height (Calculated Centimeters) 172.72 172. 72 [facility] Height 68 68 [facility] Blood Pressure 139/87 139/87 [facility] Body Mass Index (BMI) 35.4 35.4 [facility] Weight (Calculated Kilograms) 91.51 91.51 [facility] Height (Calculated Centimeters) 172.72 172. 72 [facility] Body Mass Index (BMI) 30.7 30.7 [facility] Weight (Calculated Kilograms) 91.51 91.51 [facility] Height (Calculated Centimeters) 172.72 172. 72 [facility] Body Mass Index (BMI) 30.7 30.7 [facility] Weight (Calculated Kilograms) 91.51 91.51 [facility] Height (Calculated Centimeters) 172.72 172. 72 [facility] Body Mass Index (BMI) 30.7 30.7 [facility] Weight (Calculated Kilograms) 91.51 91.51 [facility] Height (Calculated Centimeters) 172.72 172. 72 [facility] Body Mass Index (BMI) 30.7 30.7 [facility] ID Date Data Source [id number] 05/29/2019 11:05:00 AM EST [facility] Name Value Range Interpretation Code Description Data Source(s) Weight (Calculated Kilograms) 91.51 91.51 [facility] Height (Calculated Centimeters) 172.72 172. 72 [facility] Body Mass Index (BMI) 30.7 30.7 [facility] Weight (Calculated Kilograms) 91.51 91.51 [facility] Height (Calculated Centimeters) 172.72 172. 72 [facility] Body Mass Index (BMI) 30.7 30.7 [facility] Weight (Calculated Kilograms) 91.51 91.51 [facility] Height (Calculated Centimeters) 172.72 172. 72 [facility] Body Mass Index (BMI) 30.7 30.7 [facility] Weight (Calculated Kilograms) 91.51 91.51 [facility] Height (Calculated Centimeters) 172.72 172. 72 [facility] Body Mass Index (BMI) 30.7 30.7 [facility] Weight (Calculated Kilograms) 91.51 91.51 [facility] Height (Calculated Centimeters) 172.72 172. 72 [facility] Body Mass Index (BMI) 30.7 30.7 [facility] ID Date Data Source [id number] 06/14/2019 08:58:[address] [facility] Name Value Range Interpretation Code Description Data Source(s) Weight (Calculated Kilograms) 91.51 91.51 [facility] Height (Calculated Centimeters) 172.72 172. 72 [facility] Body Mass Index (BMI) 30.7 30.7 [facility] ID Date Data Source [id number] 07/04/2019 11:06:[address] [facility] Name Value Range Interpretation Code Description Data Source(s) Weight (Calculated Kilograms) 91.51 91.51 [facility] Height (Calculated Centimeters) 172.72 172. 72 [facility] Body Mass Index (BMI) 30.7 30.7 [facility] ID Date Data Source [id number] 05/08/2019 11:25:00 AM EST [facility] Name Value Range Interpretation Code Description Data Source(s) Weight (Calculated Kilograms) 91.51 91.51 [facility] Height (Calculated Centimeters) 172.72 172. 72 [facility] Body Mass Index (BMI) 30.7 30.7 [facility] Weight (Calculated Kilograms) 91.51 91.51 [facility] Height (Calculated Centimeters) 172.72 172. 72 [facility] Body Mass Index (BMI) 30.7 30.7 [facility] Weight (Calculated Kilograms) 91.51 91.51 [facility] Height (Calculated Centimeters) 172.72 172. 72 [facility] Body Mass Index (BMI) 30.7 30.7 [facility] Weight (Calculated Kilograms) 91.[address] [place] [address] Height (Calculated Centimeters) 172.72 172. 72 [facility] Body Mass Index (BMI) 30.7 30.7 [facility] ID Date Data Source [id number] 07/25/2019 10:55:00 AM EST [facility] Name Value Range Interpretation Code Description Data Source(s) Weight Measurement Method 5 5 [facility] Weight (Calculated Kilograms) 91.[address] [place] [address] Weight 3236.8 3236.8 [facility] Temperature Source 7 7 [facility] Temperature 98.0 98.0 [facility] Respiratory Effort 1 1 [facility] Respiratory Rate 18 18 [facility] Pulse Assessment Method 4 4 [facility] Pulse Rate 116 116 [facility] Height (Calculated Centimeters) 172.72 172. 72 [facility] Height 68 68 [facility] Blood Pressure 137/93 137/93 [facility] Body Mass Index (BMI) 30.7 30.7 [facility] Weight Measurement Method 5 5 [facility] Weight (Calculated Kilograms) 91.51 91.51 [facility] Weight 3236.8 3236.8 [facility] Temperature Source 7 7 [facility] Temperature 98.0 98.0 [facility] Respiratory Effort 1 1 [facility] Respiratory Rate 18 18 [facility] Pulse Assessment Method 4 4 [facility] Pulse Rate 116 116 [facility] Height (Calculated Centimeters) 172.72 172. 72 [facility] Height 68 68 [facility] Blood Pressure 137/93 137/93 [facility] Body Mass Index (BMI) 30.7 30.7 [facility] Weight Measurement Method 5 5 [facility] Weight (Calculated Kilograms) 91.51 91.51 [facility] Weight 3236.8 3236.8 [facility] Temperature Source 7 7 [facility] Temperature 98.0 98.0 [facility] Respiratory Effort 1 1 [facility] Respiratory Rate 18 18 [facility] Pulse Assessment Method 4 4 [facility] Pulse Rate 116 116 [facility] Height (Calculated Centimeters) 172.72 172. 72 [facility] Height 68 68 [facility] Blood Pressure 137/93 137/93 [facility] Body Mass Index (BMI) 30.7 30.7 [facility] Weight Measurement Method 5 5 [facility] Weight (Calculated Kilograms) 91.51 91.51 [facility] Weight 3184.0 3184.0 [facility] Temperature Source 7 7 [facility] Temperature 96.9 96.9 [facility] Respiratory Effort 3 3 [facility] Respiratory Rate 16 16 [facility] Pulse Assessment Method 4 4 [facility] Pulse Rate 76 76 [facility] Height (Calculated Centimeters) 172.72 172. 72 [facility] Height 68 68 [facility] Blood Pressure 138/87 138/87 [facility] Body Mass Index (BMI) 30.7 30.7 [facility] Weight Measurement Method 1 1 [facility] Weight (Calculated Kilograms) 91.51 91.51 [facility] Weight 3145.6 3145.6 [facility] Temperature Source 7 7 [facility] Temperature 97.2 97.2 [facility] Respiratory Effort 15 15 [facility] Respiratory Rate 18 18 [facility] Pulse Assessment Method 4 4 [facility] Pulse Rate 87 87 [facility] Height (Calculated Centimeters) 172.72 172. 72 [facility] Height 68 68 [facility] Blood Pressure 124/77 124/77 [facility] Body Mass Index (BMI) 30.7 30.7 [facility] Weight Measurement Method 1 1 [facility] Weight (Calculated Kilograms) 91.51 91.51 [facility] Weight 3145.6 3145.6 [facility] Temperature Source 7 7 [facility] Temperature 98.3 98.3 [facility] Respiratory Effort 1 1 [facility] Respiratory Rate 18 18 [facility] Pulse Assessment Method 4 4 [facility] Pulse Rate 85 85 [facility] Height (Calculated Centimeters) 172.72 172. 72 [facility] Height 68 68 [facility] Blood Pressure 127/76 127/76 [facility] Body Mass Index (BMI) 30.7 30.7 [facility] Weight Measurement Method 5 5 [facility] Weight (Calculated Kilograms) 91.51 91.51 [facility] Weight 3259.314 3259.314 [facility] Temperature Source 7 7 [facility] Temperature 99.1 99.1 [facility] Respiratory Effort 15 15 [facility] Respiratory Rate 18 18 [facility] Pulse Assessment Method 4 4 [facility] Pulse Rate 114 114 [facility] Height (Calculated Centimeters) 172.72 172. 72 [facility] Height 68 68 [facility] Blood Pressure 128/89 128/89 [facility] Body Mass Index (BMI) 30.7 30.7 [facility] Weight Measurement Method 5 5 [facility] Weight (Calculated Kilograms) 92.08 92.08 [facility] Weight 3305.17 3305.17 [facility] Temperature Source 7 7 [facility] Temperature 98.9 98.9 [facility] Respiratory Effort 14 14 [facility] Respiratory Rate 18 18 [facility] Pulse Assessment Method 4 4 [facility] Pulse Rate 94 94 [facility] Height (Calculated Centimeters) 172.72 172. 72 [facility] Height 68 68 [facility] Blood Pressure 115/70 115/70 [facility] Body Mass Index (BMI) 30.9 30.9 [facility] Weight Measurement Method 5 5 [facility] Weight (Calculated Kilograms) 92.08 92.08 [facility] Weight 7118.285 7118.285 [facility] Temperature Source 7 7 [facility] Temperature 97.8 97.8 [facility] Respiratory Rate 18 18 [facility] Pulse Assessment Method 4 4 [facility] Pulse Rate 112 112 [facility] Height (Calculated Centimeters) 172.72 172. 72 [facility] Height 68 68 [facility] Blood Pressure 135/97 135/97 [facility] Body Mass Index (BMI) 30.9 30.9 [facility] Weight Measurement Method 5 5 [facility] Weight (Calculated Kilograms) 92.08 92.08 [facility] Weight 3248 3248 [facility] Temperature Source 7 7 [facility] Temperature 97.8 97.8 [facility] Respiratory Rate 18 18 [facility] Pulse Assessment Method 4 4 [facility] Pulse Rate 105 105 [facility] Height (Calculated Centimeters) 172.72 172. 72 [facility] Height 68 68 [facility] Blood Pressure 139/84 139/84 [facility] Body Mass Index (BMI) 30.9 30.9 [facility] Weight (Calculated Kilograms) 89.81 89.81 [facility] Height (Calculated Centimeters) 172.72 172. 72 [facility] Body Mass Index (BMI) 30.1 30.1 [facility] Weight (Calculated Kilograms) 89.81 89.81 [facility] Height (Calculated Centimeters) 172.72 172. 72 [facility] Body Mass Index (BMI) 30.1 30.1 [facility] Weight (Calculated Kilograms) 89.81 89.81 [facility] Height (Calculated Centimeters) 172.72 172. 72 [facility] Body Mass Index (BMI) 30.1 30.1 [facility] Weight (Calculated Kilograms) 89.81 89.81 [facility] Height (Calculated Centimeters) 172.72 172. 72 [facility] Body Mass Index (BMI) 30.1 30.1 [facility] Hospital ID Date Data Source [id number] 05/16/2019 12:00:00 PM [facility] Hospital Name Value Range Interpretation Code Description Data Source(s) Weight (Calculated Kilograms) 89.81 89.81 [facility] Height (Calculated Centimeters) 172.72 172. 72 [facility] Body Mass Index (BMI) 30.1 30.1 [facility] Weight (Calculated Kilograms) 89.81 89.81 [facility] Height (Calculated Centimeters) 172.72 172. 72 [facility] Body Mass Index (BMI) 30.1 30.1 [facility] Weight (Calculated Kilograms) 89.81 89.81 [facility] Height (Calculated Centimeters) 172.72 172. 72 [facility] Body Mass Index (BMI) 30.1 30.1 [facility] ID Date Data Source [id number] 05/10/2019 09:57:00 AM [facility] Name Value Range Interpretation Code Description Data Source(s) Weight (Calculated Kilograms) 89.81 89.81 [facility] Height (Calculated Centimeters) 172.72 172. 72 [facility] Body Mass Index (BMI) 30.1 30.1 [facility] Weight (Calculated Kilograms) 89.81 89.81 [facility] Height (Calculated Centimeters) 172.72 172. 72 [facility] Body Mass Index (BMI) 30.1 30.1 [facility] Weight (Calculated Kilograms) 89.81 89.81 [facility] Height (Calculated Centimeters) 172.72 172. 72 [facility] Body Mass Index (BMI) 30.1 30.1 [facility] ID Date Data Source [id number] 05/02/2019 12:00:00 PM [facility] Name Value Range Interpretation Code Description Data Source(s) Weight (Calculated Kilograms) 89.81 89.81 [facility] Height (Calculated Centimeters) 172.72 172. 72 [facility] Body Mass Index (BMI) 30.1 30.1 [facility] Weight (Calculated Kilograms) 89.81 89.81 [facility] Height (Calculated Centimeters) 172.72 172. 72 [facility] Body Mass Index (BMI) 30.1 30.1 [facility] Weight (Calculated Kilograms) 89.81 89.81 [facility] Height (Calculated Centimeters) 172.72 172. 72 [facility] Body Mass Index (BMI) 30.1 30.1 [facility] Patient Treatment Plan of Care Planned Activity Planned Date Details Description Data Source (s) Methylphenidate Hydrochloride 5 MG Oral Tablet [Ritali n] 06/10/2020 12:00:00 AM EST eCW1 ([facility]) Methylphenidate Hydrochloride 5 MG Oral Tablet [Ritali n] 06/10/2020 12:00:00 AM EST eCW1 ([facility]) Methylphenidate Hydrochloride 5 MG Oral Tablet [Ritali n] 06/10/2020 12:00:00 AM EST eCW1 ([facility]) torsemide 100 MG Oral Tablet 06/09/2020 12:00:00 AM EST [facility] valsartan 160 MG Oral Tablet 06/09/2020 12:00:00 AM EST [facility] valsartan 160 MG Oral Tablet 06/08/2020 12:00:00 AM EST [facility] quetiapine 25 MG Oral Tablet 05/27/2020 12:00:00 AM EST [facility] Methylphenidate Hydrochloride 5 MG Oral Tablet 05/27/2020 12:00:00 AM EST [facility] Methylphenidate Hydrochloride 5 MG Oral Tablet [Ritali n] 05/27/2020 12:00:00 AM EST eCW1 ([facility]) quetiapine 25 MG Oral Tablet [Seroquel] 05/27/2020 12:00:00 AM EST eCW1 ([facility]) Methylphenidate Hydrochloride 5 MG Oral Tablet [Ritali n] 05/27/2020 12:00:00 AM EST eCW1 ([facility]) quetiapine 25 MG Oral Tablet [Seroquel] 05/27/2020 12:00:00 AM EST eCW1 ([facility]) Methazolamide 25 MG Oral Tablet 05/22/2020 12:00:00 AM [facility] Amitriptyline Hydrochloride 25 MG Oral Tablet 05/22/2020 12:00:00 A M [facility] Furosemide 40 MG Oral Tablet 05/21/2020 12:00:00 AM [facility] pregabalin 300 MG Oral Capsule 05/12/2020 12:00:00 AM [facility] Ketoconazole 20 MG/ML Medicated Shampoo 05/08/2020 12:00:00 AM [facility] Sertraline 25 MG Oral Tablet 05/05/2020 12:00:00 AM EST [facility] topiramate 25 MG Oral Tablet 04/30/2020 12:00:00 AM [facility] duloxetine 20 MG Delayed Release Oral Capsule 04/20/2020 12:00:00 A M EST eCW1 ([facility]) duloxetine 20 MG Delayed Release Oral Capsule 04/20/2020 12:00:00 A M EST eCW1 ([facility]) duloxetine 20 MG Delayed Release Oral Capsule 04/20/2020 12:00:00 A M EST eCW1 ([facility]) duloxetine 20 MG Delayed Release Oral Capsule 04/20/2020 12:00:00 A M EST eCW1 ([facility]) duloxetine 20 MG Delayed Release Oral Capsule 04/20/2020 12:00:00 A M EST eCW1 ([facility]) Acetaminophen 325 MG / Oxycodone Hydrochloride 5 MG Or al Tablet 04/10/2020 12:00:00 AM EDT [facility] chlorhexidine gluconate 1.2 MG/ML Mouthwash 04/10/2020 12:00:00 AM [facility] 12 HR Acetazolamide 500 MG Extended Release Oral Capsu le 03/26/2020 12:00:00 AM [facility] ospital sodium chloride (preservative free) 0.9 % flush 3 mL 05:00:00 PM [facility] Ketoconazole 20 MG/ML Medicated Shampoo 03[facility]03[facility] Oral Tablet 02/05/2020 12:00:00 AM EDT [facility] Prednisone 20 MG Oral Tablet 02/05/2020 [facility] MG Oral Tablet 02/05/2020 12:00:00 AM [facility] Baclofen 10 MG Oral Tablet 01/27/2020 12:00:00 AM [facility] Hydroxyzine Hydrochloride 25 MG Oral Tablet 01/27/2020 [facility] 25 MG Oral Tablet 01/27/2020 12:00:00 AM [facility] duloxetine 60 MG Delayed Release Oral Capsule 01/27/2020 12:00:00 A M [facility] Baclofen 10 MG Oral Tablet 01/27/2020 12:00:00 AM [facility] Budesonide 0.25 MG/ML Inhalant Solution 01/26/2020 12:00:00 AM [facility] [facility] Amitriptyline Hydrochloride 25 MG Oral Tablet 01/10/2020 12:00:00 A M [facility] ropinirole 1 MG Oral Tablet 01/03/2020 12:00:00 AM [facility] Sulfamethoxazole 800 MG / Trimethoprim 160 MG Oral Tab let 12/30/2019 12:00:00 AM [facility] Cyclobenzaprine hydrochloride 5 MG Oral Tablet 12/26/2019 12:00:00 AM [facility] Trazodone Hydrochloride 50 MG Oral Tablet 12/26/2019 12:00:00 AM ED [facility] Calcitriol 0.86142 MG Oral Capsule 12/26/2019 12:00:00 AM [facility] Trazodone Hydrochloride 50 MG Oral Tablet 12/26/2019 12:00:00 AM [facility] Sertraline 50 MG Oral Tablet 12/26/2019 12:00:00 AM [facility] 24 HR metoprolol succinate 100 MG Extended Release Ora l Tablet 12/26/2019 12:00:00 AM [facility] Hydrochlorothiazide 25 MG Oral Tablet 12/26/2019 12:00:00 AM [facility] Cyclobenzaprine hydrochloride 5 MG Oral Tablet 12/26/2019 12:00:00 AM [facility] ropinirole 1 MG Oral Tablet 12/26/2019 12:00:00 AM [facility] Baclofen 10 MG Oral Tablet 12/26/2019 12:00:00 AM [facility] Amitriptyline Hydrochloride 25 MG Oral Tablet 12/26/2019 12:00:00 A M [facility] Nystatin 100 UNT/MG Topical Powder 12/03/2019 12:00:00 AM [facility] Nystatin 100 UNT/MG Topical Powder 12/03/2019 12:00:00 AM [facility] Fluocinonide 0.5 MG/ML Topical Cream 11/27/2019 12:00:00 AM [facility] Fluocinonide 0.5 MG/ML Topical Cream 11/27/2019 12:00:00 AM [facility] Furosemide 20 MG Oral Tablet 11/25/2019 12:00:00 AM [facility] Melatonin 10 MG 11/25/2019 12:00:00 AM EDT [facility] ([facility]) Melatonin 10 MG 11/25/2019 12:00:00 AM EDT [facility] ([facility]) Melatonin 10 MG 11/25/2019 12:00:00 AM EDT [facility] ([facility]) Melatonin 10 MG 11/25/2019 12:00:00 AM EDT [facility] ([facility]) Melatonin 10 MG 11/25/2019 12:00:00 AM EDT [facility] ([facility]) Melatonin 10 MG 11/25/2019 12:00:00 AM EDT [facility] ([facility]) pregabalin 100 MG Oral Capsule 11/15/2019 12:00:00 AM [facility] pregabalin 100 MG Oral Capsule [Lyrica] 11/15/2019 12:00:00 AM EDT e[facility] ([facility]) May Have - 10/28/2019 12:00:00 AM EDT e [facility]1 ([facility]) Prednisone 10 MG Oral Tablet 10/25/2019 12:00:00 AM [facility] gabapentin 300 MG Oral Capsule 10/25/2019 12:00:00 AM [facility] duloxetine 30 MG Delayed Release Oral Capsule 09/25/2019 12:00:00 A M [facility] Diazepam 5 MG Oral Tablet 09/12/2019 12:00:00 AM [facility] Fluocinonide 0.5 MG/ML Topical Cream 08/26/2019 12:00:00 AM [place] [id number] ([facility]) Acetaminophen 325 MG / Hydrocodone Bitartrate 5 MG Ora l Tablet 08/23/2019 12:00:00 AM [facility] Acetaminophen 325 MG / Hydrocodone Bitartrate 5 MG Ora l Tablet 08/23/2019 12:00:00 AM [facility] Testosterone Cypionate 200 MG/ML Intramu scular Solution (DEPOTESTOTERONE CYPIONATE) 2019 12:00:00 AM [facility] Budesonide 0.25 MG/ML Inhalant Solution 07/18/2019 12:00:00 AM [facility] Ipratropium [place] 0.2 MG/ML Inhalant Solution 05/12/2019 12:00:00 AM [facility] Nystatin 100 UNT/MG Topical Powder [Nystop] 04/30/2019 12:00:00 AM [place] [id number] ([facility]) gabapentin 600 MG Oral Tablet 04/18/2019 12:00:00 AM [facility] Eszopiclone 2 MG Oral Tablet 02/04/2019 12:00:00 AM [facility] Escitalopram 20 MG Oral Tablet 02/04/2019 12:00:00 AM [facility] Amlodipine 2.5 MG Oral Tablet 02/04/2019 12:00:00 AM [facility] 60 ACTUAT Budesonide 0.16 MG/ACTUAT / fo rmoterol fumarate 0.0045 MG/ACTUAT Metered Dose Inhaler [Symbicort] 11/28/2018 12:00:00 AM EDT [facility] albuterol (PROVENTIL HFA;VENTOLIN HFA) 108 (90 Base) M CG/ACT inhaler 11/18/2018 12:00:00 AM EDT [facility] Amlodipine 10 MG Oral Tablet [facility] pregabalin 100 MG Oral Capsule [facility] Furosemide 20 MG Oral Tablet [facility]
[2020-06-26 04:13] LABS: ACETAMINOPHEN LEVEL < 2.0 UG/ML (10.0-30.0); ALBUMIN 3.5 GM/DL (3.2-5.2); ALT/SGPT 135 U/L (12-78); BILIRUBIN,DIRECT 0.2 MG/DL (0.0-0.2); BILIRUBIN,TOTAL 0.5 MG/DL (0.2-1.0); BLOOD UREA NITROGEN 77 MG/DL (7-18); CALCIUM LEVEL 8.2 MG/DL (8.5-10.1); CARBON DIOXIDE LEVEL 23 MEQ/L (21-32); CHLORIDE LEVEL 105 MEQ/L (98-107); CK-MB VALUE MASS 1.9 NG/ML (<3.6); CPK CREATINE PHOSPHOKINASE 412 U/L (39-308); CREATININE FOR GFR 8.77 MG/DL (0.70-1.30); ETHYL ALCOHOL (ETHANOL) < 0.003 % (0.000-0.010); GLOMERULAR FILTRATION RATE 7.1 (>60); GLUCOSE, FASTING 96 MG/DL (70-100); MB/CK RELATIVE INDEX 0.46 (< OR =4); POTASSIUM SERUM 5.2 MEQ/L (3.5-5.1); SALICYLATE LEVEL 3.8 MG/DL (5.0-30.0); SODIUM LEVEL 138 MEQ/L (136-145); TOTAL PROTEIN 7.1 GM/DL (6.4-8.2); TROPONIN I < 0.02 NG/ML (< 0.10)
[2020-06-26] MEDS ORDERED: TORS20TA2 PO (04:57)
[2020-06-26] MEDS ORDERED: NS IV ONE (05:00)
[2020-06-26] MEDS ORDERED: MAALOX 30 ML SUSP *UDC PO PRN (06:00)
[2020-06-26] MEDS ORDERED: MOM 30ML SUSPENSION UDC PO PRN (06:00)
[2020-06-26] MEDS ORDERED: VANCOMYCIN HCL IV SCH (06:00)
[2020-06-26] MEDS ORDERED: FLUID PLACE HOLDER IV SCH (06:00)
--- NOTE | 2020-06-26 06:06 | REPVR ---
PROCEDURE INFORMATION: Exam: US Retroperitoneal Limited, Kidneys Exam date and time: 06/26/2020 5:55 AM Age: 44 years old Clinical indication: Abnormal findings; Abnormal lab test; Abnormal kidney function lab tests; Additional info: Acute renal failure TECHNIQUE: Imaging protocol: Real-time ultrasound of the retroperitoneum with image documentation. Examination was focused on the kidneys. COMPARISON: CT ABD PELVIS W/O CONTRAST 06/17/2020 7:02 PM FINDINGS: Right kidney: The right kidney is normal in size and echogenicity with no hydronephrosis or stones identified. The right kidney measures 13.9 cm in length. Left kidney: The left kidney is normal in size and echogenicity with no stones or hydronephrosis identified. The left kidney measures 13.4 cm in length. Bladder: The bladder was only partially distended. No gross bladder wall thickening. No stones identified. Ureteral jets were sought but not visualized. IMPRESSION: Normal appearance of the kidneys. No hydronephrosis. Electronically signed by: Keiry Dolan On 06/26/2020 06:06:41 AM
--- OUTSIDE RECORDS SUMMARY | 2020-06-26 06:23 | CCD ---
Author Author [facility] Organization [facility] Address Unknown Phone Unavailable Support Name Relationship Address Phone DISABLED Next Of Kin Unknown Unavailable ENID SHAW Next Of Kin [address] [place] [id number] NYAKORROGD Next Of Kin [address] [place] [address] [facility] DEPT CORRECTIONS Next Of Kin NE[place] [address] [facility] DEPT OF CORRECTIONS Next Of Kin [facility] [place] [address] NONE BETTYE [place] [address] ESMER CARRENO Next Of Kin NA Unknown [place] [facility] Next Of Kin [address] [place] [address] JAZMÍN LEBLANC Next Of Kin [address] [place] [address] SHEPARJAVIER, DAVID Next Of Kin [address] [place] [address] BETTYE ESPINAL Next Of Kin [address] [place] [address] SHEPARDSON, BETTYE Next Of Kin [address] [place] [address] SHEPARDSON, BETTYE Next Of Kin [address] [place] [address] SHEPARDSON, DAVID ECON [address] [facility] [place] [address] Unavailable SHEPARJAVIER, BETTYE ECON [address] [place] [address] Unavailable Care Team Providers Care Manufacturing Analyst Name Role Phone Bong LUCIO Unavailable Unavailable Norm Conrad ENTRY LEVEL SOFTWARE DEVELOPER-BC Unavailable Unavailable Spurbeck, L Nila ENTRY LEVEL SOFTWARE DEVELOPER-BC Unavailable Unavailable Spurbeck, L Nila ENTRY LEVEL SOFTWARE DEVELOPER-BC Unavailable Unavailable Spurbeck, L Nila ENTRY LEVEL SOFTWARE DEVELOPER-BC Unavailable Unavailable Spurbeck, L Nila ENTRY LEVEL SOFTWARE DEVELOPER-BC Unavailable Unavailable MANGLA [id number], SHAVON [id number] Unavailable Unavailable MANGLA [id number], SHAVON [id number] Unavailable Unavailable BOAHENE, A JENNY MD Unavailable [...] A JENNY MD Unavailable Unavailable BOAHENE, A EJNNY MD Unavailable Unavailable BOAHENE, Bong JENNY MD [...] RIVERO Unavailable Unavailable Reyes Argueta MD Unavailable [phone] Reyes Argueta MD Unavailable [phone] Reyes Argueta MD Unavailable [phone] Reyes Argueta MD Unavailable [phone] Reyes Argueta MD Unavailable [phone] Reyes Argueta MD Unavailable [phone] Phillip Beltran MD Unavailable Unavailable GRUDOWSKI, P CHRISTOPHER SENIOR CONTROLLER Unavailable GRUDOWSKI, P CHRISTOPHER SENIOR CONTROLLER Unavailable GRUDOWSKI, P CHRISTOPHER SENIOR CONTROLLER Unavailable GRUDOWSKI, P CHRISTOPHER SENIOR CONTROLLER Unavailable GRUDOWSKI, P CHRISTOPHER SENIOR CONTROLLER Unavailable GRUDOWSKI, P CHRISTOPHER SENIOR CONTROLLER Unavailable GRUDOWSKI, P CHRISTOPHER SENIOR CONTROLLER Unavailable GRUDOWSKI, P CHRISTOPHER SENIOR CONTROLLER Unavailable GRUDOWSKI, P CHRISTOPHER SENIOR CONTROLLER Unavailable GRUDOWSKI, P CHRISTOPHER SENIOR CONTROLLER Unavailable GRUDOWSKI, P CHRISTOPHER SENIOR CONTROLLER Unavailable GRUDOWSKI, P CHRISTOPHER SENIOR CONTROLLER Unavailable GRUDOWSKI, P CHRISTOPHER SENIOR CONTROLLER Unavailable GRUDOWSKI, P CHRISTOPHER SENIOR CONTROLLER Unavailable GRUDOWSKI, P CHRISTOPHER SENIOR CONTROLLER Unavailable GRUDOWSKI, P CHRISTOPHER SENIOR CONTROLLER Unavailable GRUDOWSKI, P CHRISTOPHER SENIOR CONTROLLER Unavailable GRUDOWSKI, P CHRISTOPHER SENIOR CONTROLLER Unavailable GRUDOWSKI, P CHRISTOPHER SENIOR CONTROLLER Unavailable GRUDOWSKI, P CHRISTOPHER SENIOR CONTROLLER Unavailable GRUDOWSKI, P CHRISTOPHER SENIOR CONTROLLER Unavailable GRUDOWSKI, P CHRISTOPHER SENIOR CONTROLLER Unavailable NOSTROM, NOE SENIOR CONTROLLER Unavailable Unavailable NOSTROM, NOE SENIOR CONTROLLER Unavailable Unavailable NOSTROM, NOE SENIOR CONTROLLER Unavailable Unavailable NOSTROM, NOE SENIOR CONTROLLER Unavailable Unavailable NOSTROM, NOE SENIOR CONTROLLER Unavailable Unavailable NOSTROM, NOE SENIOR CONTROLLER Unavailable Unavailable NOSTROM, NOE SENIOR CONTROLLER Unavailable Unavailable NOSTROM, NOE SENIOR CONTROLLER Unavailable Unavailable NOSTROM, NOE SENIOR CONTROLLER Unavailable Unavailable NOSTROM, NOE SENIOR CONTROLLER Unavailable Unavailable NOSTROM, NOE SENIOR CONTROLLER Unavailable Unavailable NOSTROM, NOE SENIOR CONTROLLER Unavailable Unavailable NOSTROM, NOE SENIOR CONTROLLER Unavailable Unavailable Iggy Huber MD Unavailable Unavailable [...] AGUSTÍN, L ANUM Unavailable Unavailable AGUSTÍN, L NAUM Unavailable Unavailable AGUSTÍN, L ANUM Unavailable Unavailable [...] ANUM Unavailable Unavailable Ramsey IV, Cheng Shaheen ENTRY LEVEL SOFTWARE DEVELOPER Unavailable Unavailable Ramsey IV, Cheng Jamison ENTRY LEVEL SOFTWARE DEVELOPER Unavailable Unavailable Ramsey IV, Cheng Jamison ENTRY LEVEL SOFTWARE DEVELOPER Unavailable Unavailable SPENCERJOSE ANTONIO AVENDAÑO PA Unavailable Unavailable SPENCERJOSE ANTONIO PA Unavailable Unavailable SPENCERJOSE ANTONIO AVENDAÑO PA Unavailable Unavailable JOSE ANTONIO SPENCER PA Unavailable Unavailable ADITI AIKEN, [id number] Bong RODRIGUES MD Unavailable Unavailbong PENNINGTON MD, [id number] Bong RODRIGUES MD Unavailable Unavailbong PENNINGTON MD, [id number] Bong RODRIGUES MD Unavailable Unavailbong PENNINGTON MD, [id number] Bong RODRIGUES MD Unavailable Unavailbong PENNINGTON MD, [id number] Bong RODRIGUES MD Unavailable Unavailbong PENNINGTON MD, [id number] Bong RODRIGUES MD Unavailable Unavailbong PENNINGTON MD, [id number] Bong RODRIGUES MD Unavailable Unavailbong PENNINGTON MD, [id number] Bong RODRIGUES MD Unavailable Unavailbong PENNINGTON MD, [id number] Bong RODRIGUES MD Unavailable Unavailbong PENNINGTON MD, [id number] Bong RODRIGUES MD Unavailable Unavailbong PENNINGTON MD, [id number] Bong RODRIGUES MD Unavailable Unavailbong PENNINGTON MD, [id number] Bong RODRIGUES MD Unavailable Unavailbong PENNINGTON MD, [id number] Bong RODRIGUES MD Unavailable Unavailbong PENNINGTON MD, [id number] Bong RODRIGUES MD Unavailable Unavailbong PENNINGTON MD, [id number] Bong RODRIGUES MD Unavailable Unavailbong PENNINGTON MD, [id number] Bong RODRIGUES MD Unavailable Unavaila ble ADITI AIKEN, [id number] Bong RODRIGUES MD Unavailable Unavaila ble ALIASES [...] P Matias DO Unavailable Unavailable Rechlin, P Amtias DO Unavailable Unavailable Rechlin, P Matias DO [...] P Matias DO Unavailable Unavailable Lyric, Lisbet SENIOR CONTROLLER Unavailable Unavailable Lyric, Lisbet SENIOR CONTROLLER Unavailable Unavailable Lyric, Lisbet SENIOR CONTROLLER Unavailable Unavailable Lyric, Lisbet SENIOR CONTROLLER Unavailable Unavailable Lyric, Lisbet SENIOR CONTROLLER Unavailable Unavailable LeykinAndrew DO Unavailable Unavailable Spencer-Trim, J Jose Antonio PA Unavailable Unavailable Brandon, Dagoberto DO Unavailable Unavailable Melissa, Dagoberto DO Unavailable Unavailable Melissa, Dagoberto DO Unavailable Unavailable Melissa, Dagoberto DO Unavailable Unavailable Melissa, Dagoberto DO Unavailable Unavailable Pleasants, V FCO PA-C Unavailable Unavailable Pleasants, V FCO PA-C Unavailable Unavailable Pleasants, V FCO PA-C Unavailable Unavailable Pleasants, V FCO PA-C Unavailable Unavailable Pleasants, V FCO PA-C Unavailable Unavailable Yudith, V [...] Unavailable Unavailable SELIN Rodríguez MD Unavailable Unavailable SELNI Rodírguez MD Unavailable Unavailable SELIN Rodríguez MD Unavailable [...] Unavailable Unavailable Gloria Best MD Unavailable Unavailable Glorai Best MD Unavailable Unavailable Gloria Best MD [...] Villatoro MD Unavailable Unavailable Nostrom, R Noe LITIGATION DOCKET MANAGER Unavailable Unavailable ADJAPONG, JOHNNA Unavailable Unavailable Christopher P Rehanaowski, P ENTRY LEVEL SOFTWARE DEVELOPER ENTRY LEVEL SOFTWARE DEVELOPER Unavailable Unava ilable Cheng Luong MD Unavailable [...] Unavailable Unavailable Malek, Lebron Dawson MD Unavailable [phone] Malek, Lebron Dawson MD Unavailable [phone] Malek, T Eunice AIKEN Unavailable [phone] Malek, Lebron Dawson MD Unavailable [phone] Malek, T Hamza Unavailable [phone] Malek, T Hamza MD Unavailable [phone] Malek, T Hamza MD Unavailable [phone] Malek, T Hamza Unavailable [phone] Malek, T Hamza MD Unavailable [phone] Malek, T Hamza MD Unavailable [phone] Malek, T Hamza Unavailable [phone] Malek, T Hamza MD Unavailable [phone] Malek, T Hamza MD Unavailable [phone] Gloria Best MD Unavailable Unavailable Gloria Best [...] is protected by Article 27-F of the [facility] Public Health law. If you continue you may have access to information: Regarding HIV / AIDS; Provided by facilities licensed or operated by the [facility] Office of Mental Health; or Provided by the [facility] Office for People With Developmental Disabilities. If such information is present, then the following [facility] mandated warning applies: This information has [...] law may result in a fine or chcf sentence or both. A general authorization for the release of medical or other information is NOT sufficient authorization for further disc losure. Allergies and Adverse Reactions Type Description Substance Reaction Status Data Source(s ) Propensity to adverse reactions TOPIRAMATE topiramate Acti ve [facility] Propensity to adverse reactions ACETAZOLAMIDE ER Acetazolamide Er Active [facility] Drug allergy ACETAZOLAMIDE ER ACETAZOLAMIDE ER [facility] plastic Tape plastic Tape plastic Tape Rash Active eCW1 ([facility]) plastic Tape plastic Tape plastic Tape Rash Active eCW1 ([facility]) Adhesive Adhesive Adhesive Unknown Active eCW1 ([facility]) Drug allergy Drug allergy adhesive tape Hives- CAN use paper tape [facility] plastic Tape plastic Tape plastic Tape Rash Active eCW1 ([facility]) Propensity to adverse reactions plastic Tape Propensity to ad verse reactions Rash Active eCW1 ([facility]) Propensity to adverse reactions plastic Tape Propensity to ad verse reactions Rash Active eCW1 ([facility]) Propensity to adverse reactions plastic Tape Propensity to ad verse reactions Rash Active eCW1 ([facility]) Propensity to adverse reactions plastic Tape Propensity to ad verse reactions Rash Active eCW1 ([facility]) Propensity to adverse reactions plastic Tape Propensity to ad verse reactions Rash Active eCW1 ([facility]) Propensity to adverse reactions plastic Tape Propensity to ad verse reactions Rash Active eCW1 ([facility]) Propensity to adverse reactions plastic Tape Propensity to ad verse reactions Rash Active eCW1 ([facility]) Propensity to adverse reactions plastic Tape Propensity to ad verse reactions Rash Active eCW1 ([facility]) Propensity to adverse reactions plastic Tape Propensity to ad verse reactions Rash Active eCW1 ([facility]) Propensity to adverse reactions plastic Tape Propensity to ad verse reactions Rash Active eCW1 ([facility]) Propensity to adverse reactions plastic Tape Propensity to ad verse reactions Rash Active eCW1 ([facility]) Propensity to adverse reactions plastic Tape Propensity to ad verse reactions Rash Active eCW1 ([facility]) Propensity to adverse reactions plastic Tape Propensity to ad verse reactions Rash Active eCW1 ([facility]) Propensity to adverse reactions plastic Tape Propensity to ad verse reactions Rash Active eCW1 ([facility]) Propensity to adverse reactions plastic Tape Propensity to ad verse reactions Rash Active eCW1 ([facility]) Propensity to adverse reactions plastic Tape Propensity to ad verse reactions Rash Active eCW1 ([facility]) Propensity to adverse reactions plastic Tape Propensity to ad verse reactions Rash Active eCW1 ([facility]) Propensity to adverse reactions plastic Tape Propensity to ad verse reactions Rash Active eCW1 ([facility]) Propensity to adverse reactions plastic Tape Propensity to ad verse reactions Rash Active eCW1 ([facility]) Propensity to adverse reactions plastic Tape Propensity to ad verse reactions Rash Active eCW1 ([facility]) Propensity to adverse reactions plastic Tape Propensity to ad verse reactions Rash Active eCW1 ([facility]) Propensity to adverse reactions plastic Tape Propensity to ad verse reactions Rash Active eCW1 ([facility]) Propensity to adverse reactions plastic Tape Propensity to ad verse reactions Rash Active eCW1 ([facility]) Propensity to adverse reactions plastic Tape Propensity to ad verse reactions Rash Active eCW1 ([facility]) Propensity to adverse reactions plastic Tape Propensity to ad verse reactions Rash Active eCW1 ([facility]) Propensity to adverse reactions plastic Tape Propensity to ad verse reactions Rash Active eCW1 ([facility]) Propensity to adverse reactions plastic Tape Propensity to ad verse reactions Rash Active eCW1 ([facility]) Propensity to adverse reactions plastic Tape Propensity to ad verse reactions Rash Active eCW1 ([facility]) plastic Tape plastic Tape plastic Tape Rash Active eCW1 ([facility]) Encounters Encounter Providers Location Date Indications Data Source(s ) Outpatient Referrer: ANUM RANDOLPH 06/22/2020 12:00:00 AM [facility] Unknown [address] [facility] [address] 06/16/2020 12:00:00 AM EST eCW1 ([facility]) [place] [address] [facility] [address] 06/16/2020 12:00:00 AM EST eCW1 ([facility]) [place] [address] [facility] [address] 06/10/2020 12:00:00 AM EST [facility]) Outpatient Attender: FCO BLACK-SJPWatsonLOIS 12:00:00 AM EST - 06/09/2020 12:25:[address] [facility] Outpatient Referrer: ANUM RANDOLPH 06/03/2020 12:00:00 AM [facility] Unknown [address] [facility] [address] 05/29/2020 12:00:00 AM EST eCW1 ([facility]) [place] [address] [facility] [address] 05/26/2020 12:00:00 AM EST [facility]CW1 [facility]) Outpatient Attender: ANUM RANDOLPHReferrer: ANUM RANDOLPH [id number] 05/22/2020 12:00:00 AM EST - 05/22/2020 04:00:54 PM [facility] Outpatient Attender: NALLELY Taylor/Ashwini/Martin/Reindl 05/18/2020 08:30:00 AM EST [facility] ([facility] [place] [address] [facility] [address] 05/18/2020 12:00:00 AM EST [facility]CW1 [facility] [place] [address] [facility] [address] 05/14/2020 12:00:00 AM EST [facility]CW1 ([facility]) [place] [address] [facility] [address] 05/11/2020 12:00:00 AM EST [facility]CW1 [facility]) Outpatient Attender: Matias Taylor/Ashwini/Martin/Ramirez ndl 05/01/2020 12:23:00 AM EST [facility] ([facility] [place] [address] [facility] [address] 04/28/2020 12:00:00 AM EST [facility]1 [facility] [place] [address] [facility] [address] 04/27/2020 12:00:00 AM EST [facility]CW1 [facility]) Outpatient Attender: NALLELY JULIO DO Aron/Dauphin/Martin/Reindl 04/22/2020 01:00:00 PM EST [facility] ([facility]) [place] [address] [facility] [address] 04/20/2020 12:00:00 AM EST eCW1 ([facility]) Outpatient Attender: NALLELY JULIO DO Aron/Dauphin/Martin/Reindl 04/14/2020 10:30:00 AM EST [facility] ([facility]) Outpatient Attender: KATHRIN CHURCH MDReferrer: ANUM RANDOLPH 04/13/2020 12:00:00 AM [facility] Outpatient 04/13/2020 12:00:00 AM [facility] Outpatient Referrer: ANUM RANDOLPH 04/13/2020 12:00:00 AM [facility] [place] [address] [facility] [address] 04/10/2020 12:00:00 AM EDT eCW1 ([facility]) Outpatient Attender: ANUM RANDOLPH 04/10/2020 12:00:00 AM [facility] Unknown [address] [facility] [address] 04/08/2020 12:00:00 AM EDT eCW1 ([facility]) [place] [address] [facility] [address] 04/07/2020 12:00:00 AM EDT eCW1 ([facility]) Outpatient Attender: NALLELY JULIO DO Aron/Dauphin/Martin/Reindl 04/06/2020 03:00:00 PM EDT [facility] ([facility]) Outpatient Referrer: Gloria Best MD SJMaurice.LOIS-SJP.LOIS 03/12 12:00:00 AM EDT [facility] Outpatient [address] [facility] [address] 03/30/2020 12:00:00 AM EDT eCW1 ([facility]) [place] [address] [facility] [address] 03/25/2020 12:00:00 AM EDT eCW1 ([facility]) [place] [address] [facility] [address] 03/24/2020 12:00:00 AM EDT eCW1 ([facility]) [place] [address] [facility] [address] 03/24/2020 12:00:00 AM EDT eCW1 ([facility]) Outpatient Referrer: Gloria Best MD SJMaurice.LOIS-SJP.LOIS 03/12 12:00:00 AM EDT - 03/23/2020 09:13:12 AM EDT [facility] Outpatient Attender: Gloria Best MD ED-LABPNP 12/2019 02:35:00 PM EDT - 03/18/2020 02:36:00 PM EDT J9611 I10 R[address] [facility]9611 I10 R0602 Patient discharged. Outpatient Attender: SHAVON CERVANTES [id number] 7Admitter: SHAVON CERVANTES [id number]: ANUM SchwarzA-01W 03/17/2020 12:00:00 AM EDT - 03/17/2020 01:38:00 PM EDT Other abnormal findings in cerebrospinal fluid [facility] Other abnormal findings in cerebrospinal fluid Patient discharged. [place] [address] [facility] [address] 03/16/2020 12:00:00 AM EDT eCW1 ([facility]) Outpatient Attender: DEFAULT / GENE PAKO / UNKNOWN PROVIDER ALIASES Referrer: ANUM SchwarzA-COVID3 03/13/2020 12:00:00 AM EDT - 03/14/2020 12:00:00 AM EDT [facility] Outpatient Attender: SHADI KHADIJAH [id number] 03/11/2020 04:42:38 PM ED T [facility] Outpatient Attender: Gloria Best MD SJMaurice.LOIS-SJP.LOIS 02/11 12:00:00 AM EDT - 03/09/2020 12:19:12 PM EDT [facility] Outpatient Attender: Gloria DOSS.LOIS-SJP.LOIS 01/12 12:00:00 AM EDT - 02/10/2020 09:33:09 AM EDT [facility] Outpatient Attender: KATHRIN CHURCH MD [id number] 12:00:00 AM EDT - 02/07/2020 12:21:13 PM EDT Benign intracranial hypertension [facility] Benign intracranial hypertension Outpatient Attender: ANUM RANDOLPH [id number] 02/07/20 20 12:00:00 AM EDT - 02/07/2020 09:27:13 AM EDT Neuralgia and neuritis, unspecified [facility] Neuralgia and neuritis, unspecified Outpatient Attender: HANS RIVERO 02/07/2020 12:00:00 AM EDT [facility] Preadmit Attender: Lilia Hernandez MD CPSCAORT-PRSCNPT 01/24/2020 12 :00:00 AM EDT LEG WEAKNESS [facility] LEG WEAKNESS Outpatient Attender: Irving Sharp/Ashwini/Martin/R eindl 01/16/2020 01:23:00 AM EDT [facility] ([facility]) Outpatient Attender: [id number] LILIA PENNINGTON MD [id number] 01/03/2020 12:00:00 AM EDT - 01/03/2020 04:06:54 PM EDT Benign intracranial hypertension [facility] Benign intracranial hypertension Outpatient Attender: NALLELY Taylor/Ashwini/Martin/Reindl 12/31/2019 02:45:00 PM EDT [facility] ([facility] Outpatient [facility] [address] 12/31/2019 12:00:00 AM EDT [facility]CW1 ([facility] [place] [address] [facility] [address] 12/25/2019 12:00:00 AM EDT eCW1 ([facility]) [place] [address] [facility] [address] 12/24/2019 12:00:00 AM EDT eCW1 ([facility]) [place] [address] [facility] [address] 12/19/2019 12:00:00 AM EDT eCW1 ([facility]) [place] [address] [facility] [address] 11/26/2019 12:00:00 AM EDT eCW1 ([facility]) [place] [address] [facility] [address] 11/25/2019 12:00:00 AM EDT eCW1 ([facility]) Outpatient [address] [facility] [address] 11/25/2019 12:00:00 AM EDT eCW1 ([facility]) [place] [address] [facility] [address] 11/25/2019 12:00:00 AM EDT eCW1 ([facility]) [facility] Resident [address] [place] [address] 11/19/2019 12:00:00 AM EDT eCW1 ([facility]) [place] [address] [facility] [address] 11/15/2019 12:00:00 AM EDT eCW1 ([facility]) [facility] [place] [address] [facility] [address] 11/08/2019 12:00:00 AM EDT eCW1 ([facility]) Outpatient CPSCAORT-LABEJN 11/01/2019 02:32:00 PM EDT [facility] Outpatient Attender: JENNY CASTILLO MD ED-LABPNP 12:31:00 PM EDT - 11/01/2019 12:32:00 PM EDT R740 [facility] R740 Patient discharged. [facility] [address] [place] [address] 10/28/2019 12:00:00 AM EDT eCW1 ([facility]) Outpatient Attender: NALLELY Taylor/Ashwini/Martin/Reindl 10/07/2019 03:00:00 PM EDT [facility] ([facility]) Outpatient Attender: JOHNNA Pizarro tter: JOHNNA GILReferrer: JOHNNA GIL 10/07/2019 12:00:00 AM EDT - 10/08/2019 12:00:00 AM EDT Inflammatory polyneuropathy, unspecified [facility] Inflammatory polyneuropathy, unspecified Preadmit Attender: MATEO Rodríguez MD [facility] 12:00:00 AM EDT - 09/03/2019 03:24:00 PM EDT [facility] Discharge cancelled. Disregard status an d discharged date. 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 Emergency Attender: ENTRY LEVEL SOFTWARE DEVELOPER Magdalena Turner FNPAttender: MAGDALENA TURNER NPAttender: Rossana Garnett MDAttender: Rossana Garnett MD [facility] 09/11/2019 04:20:00 PM EDT - 09/11/2019 07:18:00 PM EDT COUGH,SHORTNESS OF BREATH [facility] COUGH,SHORTNESS OF BREATH Patient discharged. Outpatient Attender: NALLELY Taylor/Ashwini/Martin/Reindl 09/03/2019 02:30:00 PM EDT [facility] ([facility] [place] [address] [facility] [address] 08/26/2019 12:00:00 AM EDT eCW1 ([facility]) Emergency Attender: Dagoberto Torres DOAttender: Jaime PEÑA CPSCAORT-ED 08/23/2019 10:45:00 AM EDT - 08/23/2019 02:08:00 PM EDT SHORTNESS OF BREATH, HIGH BLOOD PRESSURE [facility] SHORTNESS OF BREATH, HIGH BLOOD PRESSURE Patient discharged. Outpatient Attender: Reyes Argueta MD CPSCAORT-CPSOMP 10:18:00 AM EDT - 08/23/2019 10:19:00 AM EDT [facility] Patient discharged. R Attender: MATEO Rodríguez MD CPSCAORT-PRSLAPT 020 08:49:00 AM EST - 09/10/2019 12:01:00 AM EDT Chronic inflammatory demyelinating polyneuropathy [facility] Chronic inflammatory demyelinating polyn europathy Patient discharged. Outpatient Attender: MATEO Rodríguez MD CPSCAORT-CPSLAPCP 2019 07:40:00 AM EST - 08/12/2019 07:41:00 AM [facility] Patient discharged. Outpatient Attender: Lorraine Loyd MD CPSCAORT-OVWT4SQS 07/19 09:14:00 AM EST - 07/19/2019 09:15:00 AM [facility] Patient discharged. Outpatient Attender: MATEO Rodríguez MD CPSCAORT-CPSLAPCP 2019 07:51:00 AM EST - 07/19/2019 07:52:00 AM [facility] Patient discharged. [facility] [address] [place] [address] 07/10/2019 12:00:00 AM EST eCW1 ([facility]) Inpatient Attender: Kevin Mcdonald danette: Milal Clement MDAttender: Milla Clement MDAdmitter: Milla Clement MDConsultant: Kimberley Wright NPConsultant: KIMBERLEY WRIGHTConsultant: Noe Xiong RNPConsultant: NOE XIONG SENIOR CONTROLLER CPSCAORT-MSU2 07/05/2019 09:07:00 PM EST - 07/08/2019 01:43:00 PM ES T RESPIRATORY FAILURE WITH HYPOXIA, CHEST PAIN [facility] RESPIRATORY FAILURE WITH HYPOXIA, CHEST PAIN Patient discharged. Outpatient Attender: Lorraine Loyd MD CPSCAORT-SDCSDC 020 07:39:00 AM EST - 07/04/2019 01:44:00 PM EST MYOPATHY [facility] MYOPATHY Patient discharged. R Attender: Nila LEE CPSCAORT-PRSLAS T 06/24/2019 01:51:00 PM EST - 07/12/2019 12:01:00 AM EST ASPIRATION [facility] ASPIRATION Patient discharged. R Attender: MATEO Rodríguez MD CPSCAORT-PRSLAPT 020 09:22:00 AM EST - 07/12/2019 12:01:00 AM EST Chronic inflammatory demyelinating polyneuropathy [facility] Chronic inflammatory demyelinating polyn europathy Patient discharged. Outpatient Attender: Lorraine Loyd MD ED-LABPNP 020 03:54:00 PM EST - 06/20/2019 03:55:00 PM EST [address] [facility] G729 Patient discharged. Outpatient Attender: Lorraine Loyd MD CPSCAORT-WYOM1PIV 06/19 12:31:00 PM EST - 06/19/2019 12:32:00 PM EST [facility] Patient discharged. Outpatient Attender: Nila Conrad [facility] CPSCAORT-CPSLAP UL 06/18/2019 08:54:00 AM EST - 06/18/2019 08:55:00 AM EST [facility] Patient discharged. [facility] Att[facility]: [facility]CPSLAP 06/13/2019 08:43:00 AM EST - 06/13/2019 08:44:00 AM EST [facility] Patient discharged. R Attender: MATEO Rodríguez MD CPSCAORT-PRSLAPT 019 07:27:00 AM EST - 06/11/2019 12:01:00 AM EST Chronic inflammatory demyelinating polyneuropathy [facility] Chronic inflammatory demyelinating polyn europathy Patient discharged. [facility] [address] [facility] [address] 05/30/2019 12:00:00 AM EST eCW1 ([facility]) Outpatient Attender: Reyes Argueta MD [facility] 10:10:00 AM EST - 05/28/2019 10:11:00 AM [facility] [address] [facility] [address] 05/21/2019 12:00:00 AM EST eCW1 ([facility]) [facility] [address] [facility] [address] 05/20/2019 12:00:00 AM EST eCW1 ([facility]) Outpatient Attender: MATEO Rodríguez [facility] 10:20:00 AM EST - 05/17/2019 10:21:00 AM EST [facility] Patient discharged. Outpatient Attender: Eunice Diaz [facility] 05/15 01:39:00 PM EST - 05/15/2019 01:40:00 PM EST [facility] Patient discharged. Inpatient Attender: Kevin Crocker MDAttrenita danette: Kike Norton MDAttender: Kike Norton MDAdmitter: Kike Norton MDConsultant: JOSE ANTONIO SPENCER PAConsultant: Jose Antonio Spencer-Margaret LA CPSCAORT-MSU3 05/07/2019 08:35:00 PM EST - 05/12/2019 05:00:00 PM EST BOOP,ACUTE RESPIRATORY FAILURE [facility] BOOP,ACUTE RESPIRATORY FAILURE Patient discharged. R Attender: MATEO Rodríguez MD CPSCAORT-PRSLAPT 019 09:13:00 AM EST - 05/11/2019 12:01:00 AM EST Chronic inflammatory demyelinating polyneuropathy [facility] Chronic inflammatory demyelinating polyn europathy Patient discharged. Outpatient Attender: Reyes Argueta MD CPSCAORT-CPSOMP 07:17:00 AM EST - 05/01/2019 07:18:00 AM EST [facility] [address] [facility] [address] 04/30/2019 12:00:00 AM EST eCW1 [facility]) [facility] [address] [facility] [address] 04/30/2019 12:00:00 AM EST eCW1 ([facility]) Outpatient Attender: MATEO Rodríguez [facility]CPS[facility] 10:42:00 AM EST - 04/23/2019 10:43:00 AM EST [facility] Patient discharged. Emergency Attender: Shaheen Barreto moises: Andrew Brown DOAttender: Andrew Brown DO [facility]- 04/21/2019 03:39:00 PM EST - 04/21/2019 07:43:00 PM EST POSSIBLE KIDNEY STONE [facility] POSSIBLE KIDNEY STONE Patient discharged. Inpatient Attender: Jorden Beltran MDAttender: Jorden Beltran MDAttender: Nila Luong MDAttender: Nila Luong MDAdmitter: Jorden Urbina MDConsultant: Sridhar Zimmerman MDConsultant: Eunice Diaz MDConsultant: Eunice Diaz MDConsultant: Milla Clement MDConsultant: Milla Clement MD CPSCAORT-MSU2 03/06/2019 11:40:00 AM EDT - 04/03/2019 02:27:00 PM ED T HYPOXIA, RESPIRATORY DISTRESS [facility] HYPOXIA, RESPIRATORY DISTRESS Patient discharged. R Attender: Lisbet Gunter NP CPSCAORT-PRSCNPT 019 01:48:00 PM EDT - 03/11/2019 12:01:00 AM EDT LE WEAKNESS, LEFT SIDE [facility] LE WEAKNESS, LEFT SIDE Patient discharged. R Attender: Lisbet Gunter NP CPSCAORT-PRSCNPT 019 01:23:00 PM EDT - 02/09/2019 12:01:00 AM EDT LE WEAKNESS, LEFT SIDE [facility] LE WEAKNESS, LEFT SIDE Patient discharged. R Attender: Lisbet Gunter SENIOR CONTROLLER CPSCAORT-PRSCNPT 019 01:17:00 PM EDT - 01/09/2019 12:01:00 AM EDT LE WEAKNESS, LEFT SIDE [facility] LE WEAKNESS, LEFT SIDE Patient discharged. Immunizations Vaccine Date Status Description Data Source(s) influenza, recombinant, quadrIvalent,injectable, prese rvative free 03/30/2020 10:37:00 AM EDT completed eCW1 ([facility]) influenza, recombinant, quadrIvalent,injectable, prese rvative free 03/30/2020 10:37:00 AM EDT completed eCW1 ([facility]) influenza, recombinant, quadrIvalent,injectable, prese rvative free 03/30/2020 10:37:00 AM EDT completed eCW1 ([facility]) influenza, recombinant, quadrIvalent,injectable, prese rvative free 03/30/2020 10:37:00 AM EDT completed eCW1 ([facility]) influenza, recombinant, quadrIvalent,injectable, prese rvative free 03/30/2020 10:37:00 AM EDT completed eCW1 ([facility]) influenza, recombinant, quadrIvalent,injectable, prese rvative free 03/30/2020 10:37:00 AM EDT completed eCW1 ([facility]) influenza, recombinant, quadrIvalent,injectable, prese rvative free 03/30/2020 10:37:00 AM EDT completed eCW1 ([facility]) influenza, recombinant, quadrIvalent,injectable, prese rvative free 03/30/2020 10:37:00 AM EDT completed eCW1 ([facility]) influenza, recombinant, quadrIvalent,injectable, prese rvative free 03/30/2020 10:37:00 AM EDT completed eCW1 ([facility]) influenza, recombinant, quadrIvalent,injectable, prese rvative free 03/30/2020 10:37:00 AM EDT completed eCW1 ([facility]) influenza, recombinant, quadrIvalent,injectable, prese rvative free 03/30/2020 10:37:00 AM EDT completed eCW1 ([facility]) influenza, recombinant, quadrIvalent,injectable, prese rvative free 03/30/2020 10:37:00 AM EDT completed eCW1 ([facility]) influenza, recombinant, quadrIvalent,injectable, prese rvative free 03/30/2020 10:37:00 AM EDT completed eCW1 ([facility]) influenza, recombinant, quadrIvalent,injectable, prese rvative free 03/30/2020 10:37:00 AM EDT completed eCW1 ([facility]) influenza, recombinant, quadrIvalent,injectable, prese rvative free 03/30/2020 10:37:00 AM EDT completed eCW1 ([facility]) influenza, recombinant, quadrIvalent,injectable, prese rvative free 03/30/2020 10:37:00 AM EDT completed eCW1 ([facility]) New in 2011. IIV4 04/30/2019 02:52:00 PM EST completed eCW1 ([facility]) New in 2011. IIV4 04/30/2019 02:52:00 PM EST completed eCW1 ([facility]) New in 2011. IIV4 04/30/2019 02:52:00 PM EST completed eCW1 ([facility]) New in 2011. IIV4 04/30/2019 02:52:00 PM EST completed eCW1 ([facility]) New in 2011. IIV4 04/30/2019 02:52:00 PM EST completed eCW1 ([facility]) New in 2011. IIV4 04/30/2019 02:52:00 PM EST completed eCW1 ([facility]) New in 2011. IIV4 04/30/2019 02:52:00 PM EST completed eCW1 ([facility]) New in 2011. IIV4 04/30/2019 02:52:00 PM EST completed eCW1 ([facility]) New in 2011. IIV4 04/30/2019 02:52:00 PM EST completed eCW1 ([facility]) New in 2011. IIV4 04/30/2019 02:52:00 PM EST completed eCW1 ([facility]) New in 2011. IIV4 04/30/2019 02:52:00 PM EST completed eCW1 ([facility]) New in 2011. IIV4 04/30/2019 02:52:00 PM EST completed eCW1 ([facility]) New in 2011. IIV4 04/30/2019 02:52:00 PM EST completed eCW1 ([facility]) New in 2011. IIV4 04/30/2019 02:52:00 PM EST completed eCW1 ([facility]) New in 2011. IIV4 04/30/2019 02:52:00 PM EST completed eCW1 ([facility]) New in 2011. IIV4 04/30/2019 02:52:00 PM EST completed eCW1 ([facility]) New in 2011. II4 04/30/2019 02:52:00 PM EST completed eCW1 ([facility]) New in 2011. II4 04/30/2019 02:52:00 PM EST completed eCW1 ([facility]) New in 2011. IIV4 04/30/2019 02:52:00 PM EST completed eCW1 ([facility]) New in 2011. IIV4 04/30/2019 02:52:00 PM EST completed eCW1 ([facility]) New in 2011. IIV4 04/30/2019 02:52:00 PM EST completed eCW1 ([facility]) New in 2011. IIV4 04/30/2019 02:52:00 PM EST completed eCW1 ([facility]) New in 2011. IIV4 04/30/2019 02:52:00 PM EST completed eCW1 ([facility]) New in 2011. IIV4 04/30/2019 02:52:00 PM EST completed eCW1 ([facility]) Medications Medication Brand Name Start Date Product Form Dose Route Admi nistrative Instructions Pharmacy Instructions Status Indications Reaction Description Data Source(s) Methylphenidate Hydrochloride 5 MG Oral Tablet [Ritali n] Ritalin 5 MG Ritalin 5 MG 06/10/2020 12:00:00 AM EST active Ritalin 5 MG eCW1 ([facility]) Methylphenidate Hydrochloride 5 MG Oral Tablet [Ritali n] Ritalin 5 MG Ritalin 5 MG 06/10/2020 12:00:00 AM EST active Ritalin 5 MG eCW1 ([facility]) Methylphenidate Hydrochloride 5 MG Oral Tablet [Ritali n] Ritalin 5 MG Ritalin 5 MG 06/10/2020 12:00:00 AM EST active Ritalin 5 MG eCW1 ([facility]) valsartan 160 MG Oral Tablet valsartan (DIOVAN) 160 MG tablet valsartan (DIOVAN) 160 MG tablet 06/09/2020 12:00:00 AM EST 160 mg Oral act vero Take 1 tablet (160 mg total) by mouth daily [facility] torsemide 100 MG Oral Tablet torsemide (DEMADEX) 100 M G tablet torsemide (DEMADEX) 100 MG tablet 06/09/2020 12:00:00 AM EST 50 mg Oral active Take 0.5 tablets (50 mg total) by mouth daily [facility] valsartan 160 MG Oral Tablet valsartan (DIOVAN) 160 MG tablet valsartan (DIOVAN) 160 MG tablet 06/08/2020 12:00:00 AM EST abo rted TAKE ONE TABLET BY MOUTH EVERY DAY [facility] Methylphenidate Hydrochloride 5 MG Oral Tablet methylphenidate (RITALIN) 5 MG tablet methylphenidate (RITALIN) 5 MG tablet 05/27/2020 12:00:00 AM EST 1 {tbl} Oral active Take 1 tablet by mouth d nilay [facility] Methylphenidate Hydrochloride 5 MG Oral Tablet [Ritali n] Ritalin 5 MG Ritalin 5 MG 05/27/2020 12:00:00 AM EST 1.0 {tablet_on_an_empty_stomach} active Ritalin 5 MG eCW1 ([facility]) quetiapine 25 MG Oral Tablet [Seroquel] Seroquel 25 MG Seroq uel 25 MG 05/27/2020 12:00:00 AM EST 1.0 {tablet_at_bedtime} active Seroquel 25 MG eCW1 ([facility]) quetiapine 25 MG Oral Tablet [Seroquel] Seroquel 25 MG Seroq uel 25 MG 05/27/2020 12:00:00 AM EST 1.0 {tablet_at_bedtime} active Seroquel 25 MG eCW1 ([facility]) quetiapine 25 MG Oral Tablet QUEtiapine (SEROQUEL) 25 MG tablet QUEtiapine (SEROQUEL) 25 MG tablet 05/27/2020 12:00:00 AM EST 25 mg Oral active Take 25 mg by mouth [facility] Methylphenidate Hydrochloride 5 MG Oral Tablet [Ritali n] Ritalin 5 MG Ritalin 5 MG 05/27/2020 12:00:00 AM EST 1.0 {tablet_on_an_empty_stomach} active Ritalin 5 MG eCW1 ([facility]) Amitriptyline Hydrochloride 25 MG Oral T ablet Amitriptyline HCl 25 MG Oral Tablet (ELAVIL) Amitriptyline HCl 25 MG Oral Tablet (ELAVIL) 0 12:00:00 AM EST active 1 tab po q hs x 1 week then 2 tabs po q hs there after [facility] Methazolamide 25 MG Oral Tablet methazolAMIDE 25 MG Or al Tablet (NEPTAZANE) methazolAMIDE 25 MG Oral Tablet (NEPTAZANE) 05/22/2020 12:00:00 AM EST 25 mg Oral active Take 1 tablet by marlena th Two Times Daily [facility] Furosemide 40 MG Oral Tablet furosemide (LASIX) 40 MG tablet furosemide (LASIX) 40 MG tablet 05/21/2020 12:00:00 AM EST 60 mg Oral abort ed Take 60 mg by mouth daily [facility] topiramate 50 MG Oral Tablet Topiramate 50 MG Topiramate 50 MG 05/18/2020 12:00:00 AM EST 1.0 {tablet} active To piramate 50 MG eCW1 ([facility]) topiramate 50 MG Oral Tablet Topiramate 50 MG Topiramate 50 MG 05/18/2020 12:00:00 AM EST 1.0 {tablet} active To piramate 50 MG eCW1 ([facility]) topiramate 50 MG Oral Tablet Topiramate 50 MG Topiramate 50 MG 05/18/2020 12:00:00 AM EST 1.0 {tablet} active To piramate 50 MG eCW1 ([facility]) topiramate 50 MG Oral Tablet Topiramate 50 MG Topiramate 50 MG 05/18/2020 12:00:00 AM EST 1.0 {tablet} active To piramate 50 MG eCW1 ([facility]) topiramate 50 MG Oral Tablet Topiramate 50 MG Topiramate 50 MG 05/18/2020 12:00:00 AM EST 1.0 {tablet} active To piramate 50 MG eCW1 ([facility]) topiramate 50 MG Oral Tablet Topiramate 50 MG Topiramate 50 MG 05/18/2020 12:00:00 AM EST 1.0 {tablet} active To piramate 50 MG eCW1 ([facility]) topiramate 50 MG Oral Tablet Topiramate 50 MG Topiramate 50 MG 05/18/2020 12:00:00 AM EST 1.0 {tablet} active To piramate 50 MG eCW1 ([facility]) Cyclobenzaprine hydrochloride 5 MG Oral Tablet Cyclobe nzaprine HCl 5 MG Cyclobenzaprine HCl 5 MG 05/17/2020 12:00:00 AM EST 1.0 {tablet_at_bedtime_as_needed} active Cy clobenzaprine HCl 5 MG eCW1 ([facility]) 24 HR metoprolol succinate 100 MG Extend ed Release Oral Tablet Metoprolol Succinate ER 100 MG Metoprolol Succinate ER 100 MG 05/17/2020 12:00:00 AM EST 1.0 {tablet} active Metoprolol Succinat e ER 100 MG eCW1 ([facility]) Cyclobenzaprine hydrochloride 5 MG Oral Tablet Cyclobe nzaprine HCl 5 MG Cyclobenzaprine HCl 5 MG 05/17/2020 12:00:00 AM EST 1.0 {tablet_at_bedtime_as_needed} active Cy clobenzaprine HCl 5 MG eCW1 ([facility]) pregabalin 300 MG Oral Capsule [Lyrica] Lyrica 300 MG Lyrica 300 MG 05/17/2020 12:00:00 AM EST 1.0 {capsule} active L yrica 300 MG eCW1 ([facility]) Baclofen 10 MG Oral Tablet Baclofen 10 MG 05/17/2020 12:00:00 AM ES T 1.0 {tablet_with_food_or_milk} active Baclo fen 10 MG eCW1 ([facility]) Sulfamethoxazole 800 MG / Trimethoprim 1 60 MG Oral Tablet Sulfamethoxazole- Trimethoprim 800-160 MG Sulfamethoxazole-Trimethoprim 800-160 MG 05/17/2020 12:00:00 AM EST 1.0 {tablet} active Sulfamethoxazole-Trimethoprim 800-160 MG eCW1 ([facility]) Cyclobenzaprine hydrochloride 5 MG Oral Tablet Cyclobe nzaprine HCl 5 MG Cyclobenzaprine HCl 5 MG 05/17/2020 12:00:00 AM EST 1.0 {tablet_at_bedtime_as_needed} active Cy clobenzaprine HCl 5 MG eCW1 ([facility]) Sulfamethoxazole 800 MG / Trimethoprim 1 60 MG Oral Tablet Sulfamethoxazole- Trimethoprim 800-160 MG Sulfamethoxazole-Trimethoprim 800-160 MG 05/17/2020 12:00:00 AM EST 1.0 {tablet} active Sulfamethoxazole-Trimethoprim 800-160 MG eCW1 ([facility]) Melatonin 10 MG Melatonin 10 MG 05/17/2020 12:00:00 AM EST active Melatonin 10 MG eCW1 ([facility]) pregabalin 300 MG Oral Capsule [Lyrica] Lyrica 300 MG Lyrica 300 MG 05/17/2020 12:00:00 AM EST 1.0 {capsule} active L yrica 300 MG eCW1 ([facility]) Sulfamethoxazole 800 MG / Trimethoprim 1 60 MG Oral Tablet Sulfamethoxazole- Trimethoprim 800-160 MG Sulfamethoxazole-Trimethoprim 800-160 MG 05/17/2020 12:00:00 AM EST 1.0 {tablet} active Sulfamethoxazole-Trimethoprim 800-160 MG eCW1 ([facility]) ropinirole 1 MG Oral Tablet Ropinirole HCl 1 MG Ropinirole H Cl 1 MG 05/17/2020 12:00:00 AM EST 1.0 {tablet} active Ro pinirole HCl 1 MG eCW1 ([facility]) Cyclobenzaprine hydrochloride 5 MG Oral Tablet Cyclobe nzaprine HCl 5 MG Cyclobenzaprine HCl 5 MG 05/17/2020 12:00:00 AM EST 1.0 {tablet_at_bedtime_as_needed} active Cy clobenzaprine HCl 5 MG eCW1 ([facility]) Potassium Chloride Izzy ER 10 MEQ Potassium Chloride Izzy ER 10 MEQ 05/17/2020 12:00:00 AM EST active Potassiu m Chloride Izzy ER 10 MEQ eCW1 ([facility]) Melatonin 10 MG Melatonin 10 MG 05/17/2020 12:00:00 AM EST active Melatonin 10 MG eCW1 ([facility]) 24 HR metoprolol succinate 100 MG Extend ed Release Oral Tablet Metoprolol Succinate ER 100 MG Metoprolol Succinate ER 100 MG 05/17/2020 12:00:00 AM EST 1.0 {tablet} active Metoprolol Succinat e ER 100 MG eCW1 ([facility]) 24 HR metoprolol succinate 100 MG Extend ed Release Oral Tablet Metoprolol Succinate ER 100 MG Metoprolol Succinate ER 100 MG 05/17/2020 12:00:00 AM EST 1.0 {tablet} active Metoprolol Succinat e ER 100 MG eCW1 ([facility]) Melatonin 10 MG Melatonin 10 MG 05/17/2020 12:00:00 AM EST active Melatonin 10 MG eCW1 ([facility]) Potassium Chloride Izzy ER 10 MEQ Potassium Chloride Izzy ER 10 MEQ 05/17/2020 12:00:00 AM EST active Potassiu m Chloride Izzy ER 10 MEQ eCW1 ([facility]) Baclofen 10 MG Oral Tablet Baclofen 10 MG 05/17/2020 12:00:00 AM ES T 1.0 {tablet_with_food_or_milk} active Baclo fen 10 MG eCW1 ([facility]) Sulfamethoxazole 800 MG / Trimethoprim 1 60 MG Oral Tablet Sulfamethoxazole- Trimethoprim 800-160 MG Sulfamethoxazole-Trimethoprim 800-160 MG 05/17/2020 12:00:00 AM EST 1.0 {tablet} active Sulfamethoxazole-Trimethoprim 800-160 MG eCW1 ([facility]) Baclofen 10 MG Oral Tablet Baclofen 10 MG 05/17/2020 12:00:00 AM ES T 1.0 {tablet_with_food_or_milk} active Baclo fen 10 MG eCW1 ([facility]) pantoprazole 40 MG Delayed Release Oral Tablet Pantopr azole Sodium 40 MG Pantoprazole Sodium 40 MG 05/17/2020 12:00:00 AM EST 1.0 {tablet} active Pantoprazole Sodium 40 MG eCW1 ( [facility]) pantoprazole 40 MG Delayed Release Oral Tablet Pantopr azole Sodium 40 MG Pantoprazole Sodium 40 MG 05/17/2020 12:00:00 AM EST 1.0 {tablet} active Pantoprazole Sodium 40 MG eCW1 ( [facility]) pregabalin 300 MG Oral Capsule [Lyrica] Lyrica 300 MG Lyrica 300 MG 05/17/2020 12:00:00 AM EST 1.0 {capsule} active L yrica 300 MG eCW1 ([facility]) Valsartan 160 MG UNK 05/17/2020 12:00:00 AM EST suspended Valsartan 160 MG eCW1 ([facility]) Melatonin 10 MG Melatonin 10 MG 05/17/2020 12:00:00 AM EST active Melatonin 10 MG eCW1 ([facility]) Baclofen 10 MG Oral Tablet Baclofen 10 MG 05/17/2020 12:00:00 AM ES T 1.0 {tablet_with_food_or_milk} active Baclo fen 10 MG eCW1 ([facility]) Potassium Chloride Izzy ER 10 MEQ Potassium Chloride Izzy ER 10 MEQ 05/17/2020 12:00:00 AM EST active Potassiu m Chloride Izzy ER 10 MEQ eCW1 ([facility]) Valsartan 160 MG UNK 05/17/2020 12:00:00 AM EST suspended Valsartan 160 MG eCW1 ([facility]) 24 HR metoprolol succinate 100 MG Extend ed Release Oral Tablet Metoprolol Succinate ER 100 MG Metoprolol Succinate ER 100 MG 05/17/2020 12:00:00 AM EST 1.0 {tablet} active Metoprolol Succinat e ER 100 MG eCW1 ([facility]) pregabalin 300 MG Oral Capsule [Lyrica] Lyrica 300 MG Lyrica 300 MG 05/17/2020 12:00:00 AM EST 1.0 {capsule} active L yrica 300 MG eCW1 ([facility]) Valsartan 160 MG UNK 05/17/2020 12:00:00 AM EST suspended Valsartan 160 MG eCW1 ([facility]) ropinirole 1 MG Oral Tablet Ropinirole HCl 1 MG Ropinirole H Cl 1 MG 05/17/2020 12:00:00 AM EST 1.0 {tablet} active Ro pinirole HCl 1 MG eCW1 ([facility]) 24 HR metoprolol succinate 100 MG Extend ed Release Oral Tablet Metoprolol Succinate ER 100 MG Metoprolol Succinate ER 100 MG 05/17/2020 12:00:00 AM EST 1.0 {tablet} active Metoprolol Succinat e ER 100 MG eCW1 ([facility]) Cyclobenzaprine hydrochloride 5 MG Oral Tablet Cyclobe nzaprine HCl 5 MG Cyclobenzaprine HCl 5 MG 05/17/2020 12:00:00 AM EST 1.0 {tablet_at_bedtime_as_needed} active Cy clobenzaprine HCl 5 MG eCW1 ([facility]) Baclofen 10 MG Oral Tablet Baclofen 10 MG 05/17/2020 12:00:00 AM ES T 1.0 {tablet_with_food_or_milk} active Baclo fen 10 MG eCW1 ([facility]) Baclofen 10 MG Oral Tablet Baclofen 10 MG 05/17/2020 12:00:00 AM ES T 1.0 {tablet_with_food_or_milk} active Baclo fen 10 MG eCW1 ([facility]) ropinirole 1 MG Oral Tablet Ropinirole HCl 1 MG Ropinirole H Cl 1 MG 05/17/2020 12:00:00 AM EST 1.0 {tablet} active Ro pinirole HCl 1 MG eCW1 ([facility]) Potassium Chloride Izzy ER 10 MEQ Potassium Chloride Izzy ER 10 MEQ 05/17/2020 12:00:00 AM EST active Potassiu m Chloride Izzy ER 10 MEQ eCW1 ([facility]) Melatonin 10 MG Melatonin 10 MG 05/17/2020 12:00:00 AM EST active Melatonin 10 MG eCW1 ([facility]) Cyclobenzaprine hydrochloride 5 MG Oral Tablet Cyclobe nzaprine HCl 5 MG Cyclobenzaprine HCl 5 MG 05/17/2020 12:00:00 AM EST 1.0 {tablet_at_bedtime_as_needed} active Cy clobenzaprine HCl 5 MG eCW1 ([facility]) Valsartan 160 MG UNK 05/17/2020 12:00:00 AM EST suspended Valsartan 160 MG eCW1 ([facility]) Melatonin 10 MG Melatonin 10 MG 05/17/2020 12:00:00 AM EST active Melatonin 10 MG eCW1 ([facility]) ropinirole 1 MG Oral Tablet Ropinirole HCl 1 MG Ropinirole H Cl 1 MG 05/17/2020 12:00:00 AM EST 1.0 {tablet} active Ro pinirole HCl 1 MG eCW1 ([facility]) Cyclobenzaprine hydrochloride 5 MG Oral Tablet Cyclobe nzaprine HCl 5 MG Cyclobenzaprine HCl 5 MG 05/17/2020 12:00:00 AM EST 1.0 {tablet_at_bedtime_as_needed} active Cy clobenzaprine HCl 5 MG eCW1 ([facility]) Valsartan 160 MG UNK 05/17/2020 12:00:00 AM EST suspended Valsartan 160 MG eCW1 ([facility]) Potassium Chloride Izzy ER 10 MEQ Potassium Chloride Izzy ER 10 MEQ 05/17/2020 12:00:00 AM EST active Potassiu m Chloride Izzy ER 10 MEQ eCW1 ([facility]) Baclofen 10 MG Oral Tablet Baclofen 10 MG 05/17/2020 12:00:00 AM ES T 1.0 {tablet_with_food_or_milk} active Baclo fen 10 MG eCW1 ([facility]) Melatonin 10 MG Melatonin 10 MG 05/17/2020 12:00:00 AM EST active Melatonin 10 MG eCW1 ([facility]) pregabalin 300 MG Oral Capsule [Lyrica] Lyrica 300 MG Lyrica 300 MG 05/17/2020 12:00:00 AM EST 1.0 {capsule} active L yrica 300 MG eCW1 ([facility]) ropinirole 1 MG Oral Tablet Ropinirole HCl 1 MG Ropinirole H Cl 1 MG 05/17/2020 12:00:00 AM EST 1.0 {tablet} active Ro pinirole HCl 1 MG eCW1 ([facility]) Potassium Chloride Izzy ER 10 MEQ Potassium Chloride Izzy ER 10 MEQ 05/17/2020 12:00:00 AM EST active Potassiu m Chloride Izzy ER 10 MEQ eCW1 ([facility]) pantoprazole 40 MG Delayed Release Oral Tablet Pantopr azole Sodium 40 MG Pantoprazole Sodium 40 MG 05/17/2020 12:00:00 AM EST 1.0 {tablet} active Pantoprazole Sodium 40 MG eCW1 ( [facility]) pantoprazole 40 MG Delayed Release Oral Tablet Pantopr azole Sodium 40 MG Pantoprazole Sodium 40 MG 05/17/2020 12:00:00 AM EST 1.0 {tablet} active Pantoprazole Sodium 40 MG eCW1 ( [facility]) ropinirole 1 MG Oral Tablet Ropinirole HCl 1 MG Ropinirole H Cl 1 MG 05/17/2020 12:00:00 AM EST 1.0 {tablet} active Ro pinirole HCl 1 MG eCW1 ([facility]) Potassium Chloride Izzy ER 10 MEQ Potassium Chloride Izzy ER 10 MEQ 05/17/2020 12:00:00 AM EST active Potassiu m Chloride Izzy ER 10 MEQ eCW1 ([facility]) Sulfamethoxazole 800 MG / Trimethoprim 1 60 MG Oral Tablet Sulfamethoxazole- Trimethoprim 800-160 MG Sulfamethoxazole-Trimethoprim 800-160 MG 05/17/2020 12:00:00 AM EST 1.0 {tablet} active Sulfamethoxazole-Trimethoprim 800-160 MG eCW1 ([facility]) Sulfamethoxazole 800 MG / Trimethoprim 1 60 MG Oral Tablet Sulfamethoxazole- Trimethoprim 800-160 MG Sulfamethoxazole-Trimethoprim 800-160 MG 05/17/2020 12:00:00 AM EST 1.0 {tablet} active Sulfamethoxazole-Trimethoprim 800-160 MG eCW1 ([facility]) ropinirole 1 MG Oral Tablet Ropinirole HCl 1 MG Ropinirole H Cl 1 MG 05/17/2020 12:00:00 AM EST 1.0 {tablet} active Ro pinirole HCl 1 MG eCW1 ([facility]) Valsartan 160 MG UNK 05/17/2020 12:00:00 AM EST suspended Valsartan 160 MG eCW1 ([facility]) Sulfamethoxazole 800 MG / Trimethoprim 1 60 MG Oral Tablet Sulfamethoxazole- Trimethoprim 800-160 MG Sulfamethoxazole-Trimethoprim 800-160 MG 05/17/2020 12:00:00 AM EST 1.0 {tablet} active Sulfamethoxazole-Trimethoprim 800-160 MG eCW1 ([facility]) Sertraline 25 MG Oral Tablet Sertraline HCl 25 MG Sertraline HCl 25 MG 05/17/2020 12:00:00 AM EST 1.0 {tablet} active Sertraline HCl 25 MG eCW1 ([facility]) pantoprazole 40 MG Delayed Release Oral Tablet Pantopr azole Sodium 40 MG Pantoprazole Sodium 40 MG 05/17/2020 12:00:00 AM EST 1.0 {tablet} active Pantoprazole Sodium 40 MG eCW1 ( [facility]) Valsartan 160 MG UNK 05/17/2020 12:00:00 AM EST suspended Valsartan 160 MG eCW1 ([facility]) 24 HR metoprolol succinate 100 MG Extend ed Release Oral Tablet Metoprolol Succinate ER 100 MG Metoprolol Succinate ER 100 MG 05/17/2020 12:00:00 AM EST 1.0 {tablet} active Metoprolol Succinat e ER 100 MG eCW1 ([facility]) pregabalin 300 MG Oral Capsule [Lyrica] Lyrica 300 MG Lyrica 300 MG 05/17/2020 12:00:00 AM EST 1.0 {capsule} active L yrica 300 MG eCW1 ([facility]) Sertraline 25 MG Oral Tablet Sertraline HCl 25 MG Sertraline HCl 25 MG 05/17/2020 12:00:00 AM EST 1.0 {tablet} active Sertraline HCl 25 MG eCW1 ([facility]) 24 HR metoprolol succinate 100 MG Extend ed Release Oral Tablet Metoprolol Succinate ER 100 MG Metoprolol Succinate ER 100 MG 05/17/2020 12:00:00 AM EST 1.0 {tablet} active Metoprolol Succinat e ER 100 MG eCW1 ([facility]) pregabalin 300 MG Oral Capsule [Lyrica] Lyrica 300 MG Lyrica 300 MG 05/17/2020 12:00:00 AM EST 1.0 {capsule} active L yrica 300 MG eCW1 ([facility]) pantoprazole 40 MG Delayed Release Oral Tablet Pantopr azole Sodium 40 MG Pantoprazole Sodium 40 MG 05/17/2020 12:00:00 AM EST 1.0 {tablet} active Pantoprazole Sodium 40 MG eCW1 ( [facility]) pantoprazole 40 MG Delayed Release Oral Tablet Pantopr azole Sodium 40 MG Pantoprazole Sodium 40 MG 05/17/2020 12:00:00 AM EST 1.0 {tablet} active Pantoprazole Sodium 40 MG eCW1 ( [facility]) pregabalin 300 MG Oral Capsule pregabalin (LYRICA) 300 MG capsule pregabalin (LYRICA) 300 MG capsule 05/12/2020 12:00:00 AM EST active TAKE ONE CAPSULE BY MOUTH TWICE A DAY MAXIMUM DAILY DOSE TWO CAPSULES [facility] Ketoconazole 20 MG/ML Medicated Shampoo Ketoconazole 2 % External Shampoo (NIZORAL) Ketoconazole 2 % External Shampoo (NIZORAL) 05/08/2020 12:00:00 AM EST active SHAMPOO WITH A SM ALL AMOUNT EVERY 48 HOURS [facility] Sertraline 25 MG Oral Tablet sertraline (ZOLOFT) 25 MG tablet sertraline (ZOLOFT) 25 MG tablet 05/05/2020 12:00:00 AM EST 25 mg Oral aborted Take 25 mg by mouth daily [facility] topiramate 25 MG Oral Tablet Topiramate 25 MG Oral Tab let (Topamax) Topiramate 25 MG Oral Tablet (Topamax) 04/30/2020 12:00:00 AM EST aborted 1 tab po q PM x 1 week, then 1 tab po BID x 1 week then 1 tab am and 2 tabs q PM x 1 week and then 2 BID [facility] duloxetine 20 MG Delayed Release Oral Capsule Duloxeti ne HCl 20 MG Duloxetine HCl 20 MG 04/20/2020 12:00:00 AM EST active Duloxetine HCl 20 MG eCW1 ([facility]) duloxetine 20 MG Delayed Release Oral Capsule Duloxeti ne HCl 20 MG Duloxetine HCl 20 MG 04/20/2020 12:00:00 AM EST active Duloxetine HCl 20 MG eCW1 ([facility]) duloxetine 20 MG Delayed Release Oral Capsule Duloxeti ne HCl 20 MG Duloxetine HCl 20 MG 04/20/2020 12:00:00 AM EST active Duloxetine HCl 20 MG eCW1 ([facility]) duloxetine 20 MG Delayed Release Oral Capsule Duloxeti ne HCl 20 MG Duloxetine HCl 20 MG 04/20/2020 12:00:00 AM EST active Duloxetine HCl 20 MG eCW1 ([facility]) duloxetine 20 MG Delayed Release Oral Capsule Duloxeti ne HCl 20 MG Duloxetine HCl 20 MG 04/20/2020 12:00:00 AM EST active Duloxetine HCl 20 MG eCW1 ([facility]) duloxetine 20 MG Delayed Release Oral Capsule Duloxeti ne HCl 20 MG Duloxetine HCl 20 MG 04/20/2020 12:00:00 AM EST active Duloxetine HCl 20 MG eCW1 ([facility]) duloxetine 20 MG Delayed Release Oral Capsule Duloxeti ne HCl 20 MG Duloxetine HCl 20 MG 04/20/2020 12:00:00 AM EST active Duloxetine HCl 20 MG eCW1 ([facility]) chlorhexidine gluconate 1.2 MG/ML [place]outhw [place] Chlorhexidine Gluconate 0.12 % Mouth/Throat Solution (PERIDEX) Chlorhexidine Gluconate 0.12 % Mouth/Thr oat Solution (PERIDEX) 04/10/2020 12:00:00 AM EDT aborted RINSE WITH 1 CAPFUL THREE TIMES A DAY STARTING 04/11/20 [facility] Acetaminophen 325 MG / Oxycodone Hydroch loride 5 MG Oral Tablet oxyCODONE- acetaminophen (PERCOCET) 5-325 MG per tablet oxyCODONE-acetaminophen (PERCOCET) 5-325 MG per tablet 04/10/2020 12:00:00 AM EDT active TAKE ONE TABLET BY MOUTH EVERY 4 TO 6 HOURS NEEDED FOR PAIN MAX 6TABS/DAY [facility] Furosemide 40 MG Oral Tablet Furosemide 04/06/2020 12:00:00 AM EDT ORAL active MEDENT ([facility], ) 12 HR Acetazolamide 500 MG Extended Rele ase Oral Capsule acetaZOLAMIDE ER 500 MG Oral Capsule Extended Release 12 Hour acetaZOLAMIDE ER 500 MG Oral Capsule Extended Release 12 Hour 03/26/2020 12:00:00 AM EDT aborted 1 po q day x 1 week then 1 po BID [facility] 500 mg 03/26/2020 12:00:00 AM EDT capsule, extended relea se 60 TAKE 1 CAPSULE BY MOUTH EVERY DAY FOR 1 WEEK THEN 1 CAPSULE TWICE A DAY THEREAFTER TAKE 1 CAPSULE BY MOUTH EVERY DAY FOR 1 WEEK THEN 1 CAPSULE TWICE A DAY THEREAFTER SOLD: 03/26/2020 [facility] sodium chloride (preservative free) 0.9 % [...] For 30 days, Pre-op [Order 6 End] [facility] Medication administered onsite Acetaminophen 325 MG Oral Tablet acetaminophen (TYLENO L) tablet 650 mg acetaminophen (TYLENOL) tablet 650 mg 03/17/2020 01:00:00 PM EDT 65 0 mg Oral completed 650 mg, Oral, O nce, Mon03/17/20 at 1300, For 1 dose
Maximum daily dose of acetaminophen is 3,000 mg from all sources in 24 hours.
[facility] Medication administered onsite lidocaine (XYLOCAINE) 1 % injection [id number] 03/17/2020 12:08:22 PM EDT completed Code/Trauma Medicati on, Starting Mon03/17/20 at 1208 [facility] Medication administered onsite Ketoconazole 20 MG/ML Medicated Shampoo ketoconazole ( NIZORAL) 2 % shampoo ketoconazole (NIZORAL) 2 % shampoo 03/03/2020 12:00:[address] [facility] Prednisone 20 MG Oral Tablet predniSONE (DELTASONE) 20 MG tablet predniSONE (DELTASONE) 20 MG tablet 02/05/2020 12:00:00 AM EDT 18 mg Oral active Take 18 mg by mouth daily [facility] Fluconazole 150 MG Oral Tablet Fluconazole 150 MG Oral Tablet (DIFLUCAN) Fluconazole 150 MG Oral Tablet (DIFLUCAN) 02/05/2020 12:00:00 AM EDT active TAKE ONE TABLET BY MOUTH WEEKLY DIRECTED [facility] Fluconazole 150 MG Oral Tablet fluconazole (DIFLUCAN) 150 MG tablet fluconazole (DIFLUCAN) 150 MG tablet 02/05/2020 12:00:00 AM EDT active once a week [facility] Baclofen 10 MG Oral Tablet Baclofen 10 MG Oral Tablet (LIORESAL) Baclofen 10 MG Oral Tablet (LIORESAL) 01/27/2020 12:00:00 AM EDT active TAKE ONE TABLET BY MOUTH THREE TIMES A DAY WITH FOOD OR MILK [facility] Hydroxyzine Hydrochloride 25 MG Oral Tab let hydrOXYzine HCl 25 MG Oral Tablet (ATARAX) hydrOXYzine HCl 25 MG Oral Tablet (ATARAX) 01/27/2020 12:00: 00 AM EDT active TAKE ONE TABLET BY MOUTH EVERY SIX HOURS NEEDED [facility] duloxetine 60 MG Delayed Release Oral Ca psule DULoxetine HCl 60 MG Oral Capsule Delayed Release Particles (CYMBALTA) DULoxetine HCl 60 MG Oral Capsule Delaye d Release Particles (CYMBALTA) 01/27/2020 12:00:00 AM EDT 60 mg Oral aborted Take 60 mg by mouth every evenin g [facility] Hydroxyzine Hydrochloride 25 MG Oral Tablet hydrOXYzin e (ATARAX) 25 MG tablet hydrOXYzine (ATARAX) 25 MG tablet 01/27/2020 12:00:00 AM EDT 25 mg Oral active Take 25 mg by mouth [facility] Baclofen 10 MG Oral Tablet baclofen (LIORESAL) 10 MG t ablet baclofen (LIORESAL) 10 MG tablet 01/27/2020 12:00:00 AM EDT 1 {tbl} Oral acti ve Take 1 tablet by mouth 3 (three) times a day [facility] Budesonide 0.25 MG/ML Inhalant Solution Budesonide 0.5 MG/2ML Inhalation Suspension (PULMICORT) Budesonide 0.5 MG/2ML Inhalation Suspension (PULMICORT ) 01/26/2020 12:00:00 AM EDT aborted INHALE ONE VIAL VIA NEBULIZER TWICE A DAY [facility] Amitriptyline Hydrochloride 25 MG Oral T ablet Amitriptyline HCl 25 MG Oral Tablet (ELAVIL) Amitriptyline HCl 25 MG Oral Tablet (ELAVIL) 0 12:00:00 AM EDT 25 mg Oral completed Neuropathic painPrimar y insomnia Take 1 tablet by mouth Twice Daily [facility] Neuropathic pain Primary insomnia ropinirole 1 MG Oral Tablet rOPINIRole HCl 1 MG Oral T ablet (REQUIP) rOPINIRole HCl 1 MG Oral Tablet (REQUIP) 01/03/2020 12:00:00 AM EDT 1 mg Oral active Restless leg syndrome Take 1 tablet by mouth Three times christina ly [facility] Restless leg syndrome Sulfamethoxazole 800 MG / Trimethoprim 1 60 MG Oral Tablet Sulfamethoxazole- Trimethoprim 800-160 MG Oral Tablet (BACTRIM DS) Sulfamethoxazole-Trimethoprim 800-160 MG Oral Tablet (BACTRIM DS) 12/30/2019 12:00:00 AM EDT active TAKE ONE TABLET BY MOUTH 3 TIMES A WEEK [facility] ropinirole 1 MG Oral Tablet rOPINIRole HCl 1 MG Oral T ablet (REQUIP) rOPINIRole HCl 1 MG Oral Tablet (REQUIP) 12/26/2019 12:00:00 AM EDT 1 mg Ora l aborted Take 1 mg by mouth daily [facility] Trazodone Hydrochloride 50 MG Oral Table t traZODone HCl 50 MG Oral Tablet (DESYREL) traZODone HCl 50 MG Oral Tablet (DESYREL) 12/26/2019 12:00:0 0 AM EDT active TAKE 1 1/2 TAB LETS BY MOUTH DAILY AT BEDTIME [facility] Sertraline 50 MG Oral Tablet Sertraline HCl 50 MG Oral Tablet (ZOLOFT) Sertraline HCl 50 MG Oral Tablet (ZOLOFT) 12/26/2019 12:00:00 AM EDT 75 mg Oral active Take 75 mg by mouth daily [facility] Hydrochlorothiazide 25 MG Oral Tablet hy droCHLOROthiazide 25 MG Oral Tablet (HYDRODIURIL) hydroCHLOROthiazide 25 MG Oral Tablet (HYDRODIURIL) 12:00:00 AM EDT 25 mg Oral active Take 25 mg by mouth daily [facility] 24 HR metoprolol succinate 100 MG Extend ed Release Oral Tablet Metoprolol Succinate ER 100 MG Oral Tablet Extended Release 24 Hour (TOPROL-XL) Metoprolol Succinate ER 100 MG Oral Tablet Extended Release 24 Hour (TOPROL-XL) 12/26/2019 12:00:00 AM EDT 100 mg Oral active Take 100 mg by mouth daily [facility] Calcitriol 0.29076 MG Oral Capsule Calcitriol 0.25 MCG Oral Capsule (ROCALTROL) Calcitriol 0.25 MCG Oral Capsule (ROCALTROL) 12/26/2019 12:00:00 AM EDT active TAKE ONE CAPSULE BY MOUTH ON CE A DAY [facility] Baclofen 10 MG Oral Tablet Baclofen 10 MG Oral Tablet (LIORESAL) Baclofen 10 MG Oral Tablet (LIORESAL) 12/26/2019 12:00:00 AM EDT aborted TAKE ONE TABLET BY MOUTH THREE TIMES A DAY WITH FOOD OR MILK [facility] Cyclobenzaprine hydrochloride 5 MG Oral Tablet Cyclobenzaprine HCl 5 MG Oral Tablet (FLEXERIL) Cyclobenzaprine HCl 5 MG Oral Tablet (FLEXERIL) 2019 12:00:00 AM EDT 5 mg Oral active Take 5 m g by mouth nightly as needed [facility] Amitriptyline Hydrochloride 25 MG Oral T ablet Amitriptyline HCl 25 MG Oral Tablet (ELAVIL) Amitriptyline HCl 25 MG Oral Tablet (ELAVIL) 0 12:00:00 AM EDT 25 mg Oral aborted Take 25 mg by mo uth Two Times Daily [facility] Trazodone Hydrochloride 50 MG Oral Tablet traZODone (D ESYREL) 50 MG tablet traZODone (DESYREL) 50 MG tablet 12/26/2019 12:00:00 AM EDT aborted TAKE 1 1/2 TABLETS BY MOUTH DAILY AT BEDTIME [facility] Cyclobenzaprine hydrochloride 5 MG Oral Tablet cyclobenzaprine (FLEXERIL) 5 MG tablet cyclobenzaprine (FLEXERIL) 5 MG tablet 12/26/2019 12:00:00 AM EDT 5 mg Oral active Take 5 mg by mouth a s needed [facility] Nystatin 100 UNT/MG Topical Powder Nysta tin [id number] UNIT/GM External Powder (MYCOSTATIN) Nystatin 608303 UNIT/GM External Powder (MYCOSTATIN) 0 12/03/2019 12:00:00 AM EDT active APPLY TO AFFECTED AREA S TWO TIMES A DAY FOR 10 DAYS [facility] Nystatin 100 UNT/MG Topical Powder nystatin (MYCOSTATI N) powder nystatin (MYCOSTATIN) powder 12/03/2019 12:00:00 AM EDT act vero as needed [facility] Fluocinonide 0.5 MG/ML Topical Cream Fluocinonide 0.05 % External Cream (LIDEX) Fluocinonide 0.05 % External Cream (LIDEX) 11/27/2019 12:00:00 AM EDT active APPLY TO AFFECTED AREA S TWO TI MES A DAY [facility] Fluocinonide 0.5 MG/ML Topical Cream fluocinonide (LID EX) 0.05 % cream fluocinonide (LIDEX) 0.05 % cream 11/27/2019 12:00:00 AM EDT active APPLY TO AFFECTED AREA S TWO TIMES A DAY [facility] Melatonin 10 MG Melatonin 10 MG 11/25/2019 12:00:00 AM EDT active Melatonin 10 MG eCW1 ([facility]) Melatonin 10 MG Melatonin 10 MG 11/25/2019 12:00:00 AM EDT active Melatonin 10 MG eCW1 ([facility]) Furosemide 20 MG Oral Tablet Furosemide 20 MG Oral Tab let (LASIX) Furosemide 20 MG Oral Tablet (LASIX) 11/25/2019 12:00:00 AM EDT 20 mg Oral active Take 20 mg by mouth daily [facility] Melatonin 10 MG Melatonin 10 MG 11/25/2019 12:00:00 AM EDT active Melatonin 10 MG eCW1 ([facility]) Melatonin 10 MG Melatonin 10 MG 11/25/2019 12:00:00 AM EDT active Melatonin 10 MG eCW1 ([facility]) Melatonin 10 MG Melatonin 10 MG 11/25/2019 12:00:00 AM EDT active Melatonin 10 MG eCW1 ([facility]) Melatonin 10 MG Melatonin 10 MG 11/25/2019 12:00:00 AM EDT active Melatonin 10 MG eCW1 ([facility]) pregabalin 100 MG Oral Capsule Pregabalin 100 MG Oral Capsule (LYRICA) Pregabalin 100 MG Oral Capsule (LYRICA) 11/15/2019 12:00:00 AM EDT active TAKE 1 CAPSULE BY MOUTH THREE TI MES DAILY MAX 3 CAPS/DAY [facility] pregabalin 100 MG Oral Capsule [Lyrica] Lyrica 100 MG Lyrica 100 MG 11/15/2019 12:00:00 AM EDT 1.0 {capsule} active L yrica 100 MG eCW1 ([facility]) May Have - UNK 10/28/2019 12:00:00 AM EDT active May Have - eCW1 ([facility]) May Have - UNK 10/28/2019 12:00:00 AM EDT active May Have - eCW1 ([facility]) May Have - UNK 10/28/2019 12:00:00 AM EDT active May Have - eCW1 ([facility]) May Have - UNK 10/28/2019 12:00:00 AM EDT active May Have - eCW1 ([facility]) May Have - UNK 10/28/2019 12:00:00 AM EDT active May Have - eCW1 ([facility]) May Have - UNK 10/28/2019 12:00:00 AM EDT active May Have - eCW1 ([facility]) May Have - UNK 10/28/2019 12:00:00 AM EDT active May Have - eCW1 ([facility]) May Have - UNK 10/28/2019 12:00:00 AM EDT active May Have - eCW1 ([facility]) May Have - UNK 10/28/2019 12:00:00 AM EDT active May Have - eCW1 ([facility]) May Have - UNK 10/28/2019 12:00:00 AM EDT active May Have - eCW1 ([facility]) May Have - UNK 10/28/2019 12:00:00 AM EDT active May Have - eCW1 ([facility]) May Have - UNK 10/28/2019 12:00:00 AM EDT active May Have - eCW1 ([facility]) May Have - UNK 10/28/2019 12:00:00 AM EDT active May Have - eCW1 ([facility]) May Have - UNK 10/28/2019 12:00:00 AM EDT active May Have - eCW1 ([facility]) May Have - UNK 10/28/2019 12:00:00 AM EDT active May Have - eCW1 ([facility]) May Have - UNK 10/28/2019 12:00:00 AM EDT active May Have - eCW1 ([facility]) May Have - UNK 10/28/2019 12:00:00 AM EDT active May Have - eCW1 ([facility]) May Have - UNK 10/28/2019 12:00:00 AM EDT active May Have - eCW1 ([facility]) May Have - UNK 10/28/2019 12:00:00 AM EDT active May Have - eCW1 ([facility]) May Have - UNK 10/28/2019 12:00:00 AM EDT active May Have - eCW1 ([facility]) May Have - UNK 10/28/2019 12:00:00 AM EDT active May Have - eCW1 ([facility]) May Have - UNK 10/28/2019 12:00:00 AM EDT active May Have - eCW1 ([facility]) May Have - UNK 10/28/2019 12:00:00 AM EDT active May Have - eCW1 ([facility]) May Have - UNK 10/28/2019 12:00:00 AM EDT active May Have - eCW1 ([facility]) May Have - UNK 10/28/2019 12:00:00 AM EDT active May Have - eCW1 ([facility]) May Have - UNK 10/28/2019 12:00:00 AM EDT active May Have - eCW1 ([facility]) May Have - UNK 10/28/2019 12:00:00 AM EDT active portable oxygen eCW1 ([facility]) May Have - UNK 10/28/2019 12:00:00 AM EDT active May Have - eCW1 ([facility]) May Have - UNK 10/28/2019 12:00:00 AM EDT active May Have - eCW1 ([facility]) Prednisone 10 MG Oral Tablet predniSONE (DELTASONE) 10 MG tablet predniSONE (DELTASONE) 10 MG tablet 10/25/2019 12:00:00 AM EDT 20 mg Oral active Take 20 mg by mouth daily [facility] gabapentin 300 MG Oral Capsule Gabapentin 300 MG Oral Capsule (NEURONTIN) Gabapentin 300 MG Oral Capsule (NEURONTIN) 10/25/2019 12:00:00 AM EDT aborted TAKE 2 CAPSULES BY M OUTH AT 4PM AND 9PM ON 10/25 2 CAPS THREE TIMES A DAY ON 10/26 11/01 1 THREE TIMES A DAY ON 11/02 11/08 1 TWICE A DAY 11/09 [facility] duloxetine 30 MG Delayed Release Oral Ca psule DULoxetine HCl 30 MG Oral Capsule Delayed Release Particles (CYMBALTA) DULoxetine HCl 30 MG Oral Capsule Delaye d Release Particles (CYMBALTA) 09/25/2019 12:00:00 AM EDT 60 mg Oral aborted Take 60 mg by mouth daily [facility] Diazepam 5 MG Oral Tablet Diazepam 09/12/2019 12:00:00 AM EDT active MEDENT ([facility], ) Diazepam 5 MG Oral Tablet diazePAM 5 MG Oral Tablet (V ALIUM) diazePAM 5 MG Oral Tablet (VALIUM) 09/12/2019 12:00:00 AM EDT ab orted TAKE ONE TABLET BY MOUTH 30 TO 60 MINUTES PRIOR TO MRI MAX 1 TAB/DAY [facility] Fluocinonide 0.5 MG/ML Topical Cream Fluocinonide 0.05 % Flu ocinonide 0.05 % 08/26/2019 12:00:00 AM EDT active 1 application eCW1 ([facility]) Fluocinonide 0.5 MG/ML Topical Cream Fluocinonide 0.05 % Flu ocinonide 0.05 % 08/26/2019 12:00:00 AM EDT 1.0 {application} act vero Fluocinonide 0.05 % eCW1 ([facility]) Fluocinonide 0.5 MG/ML Topical Cream Fluocinonide 0.05 % Flu ocinonide 0.05 % 08/26/2019 12:00:00 AM EDT active 1 application eCW1 ([facility]) Acetaminophen 325 MG / Hydrocodone Chas trate [...] MOUTH EVERY 6 HOURS NEEDED MAX 4/DAY [facility] Testosterone Cypionate 200 MG/ML Intramu scular Solution (DEPOTESTOTERONE CYPIONATE) [id number] 2019 12:00:00 AM EST aborted INJECT 1 ML INTRAMUSCULARLY EVERY 2 WEEKS MAX 1ML/14DAYS [facility] Budesonide 0.25 MG/ML Inhalant Solution Budesonide 0.5 MG/2ML Inhalation Suspension (PULMICORT) Budesonide 0.5 MG/2ML Inhalation Suspension (PULMICORT ) 07/18/2019 12:00:00 AM EST aborted INHALE 1 VIAL VIA NEBULIZER TWICE A DAY [facility] Ipratropium [place] 0.2 MG/ML Inhalant S olution Ipratropium [place] 0.02 % Inhalation Solution (ATROVENT) Ipratropium [place] 0.02 % Inhalation So lution (ATROVENT) 05/12/2019 12:00:00 AM EST aborted USE ONE HALF VIAL VIA NEBULIZER THREE TIMES A DAY [facility] Nystatin 100 UNT/MG Topical Powder [Nystop] Nystop 100 000 UNIT/GM Nystop [id number] UNIT/GM 04/30/2019 12:00:00 AM EST active 1 application eCW1 ([facility]) gabapentin 600 MG Oral Tablet Gabapentin 600 MG Oral T ablet (NEURONTIN) Gabapentin 600 MG Oral Tablet (NEURONTIN) 04/18/2019 12:00:00 AM EST aborted TAKE 1 TABLET BY MARLENA TH THREE TIMES DAILY AT 6AM 3PM AND AT BEDTIME [facility] Eszopiclone 2 MG Oral Tablet Eszopiclone 2 MG Oral Tab let (LUNESTA) Eszopiclone 2 MG Oral Tablet (LUNESTA) 02/04/2019 12:00:00 AM EDT aborted TAKE ONE TABLET BY MOUTH BEFORE BEDTIME MAXIMUM DAILY DOSE ONE TABLET [facility] Amlodipine 2.5 MG Oral Tablet amLODIPine Besylate 2.5 MG Oral Tablet (NORVASC) amLODIPine Besylate 2.5 MG Oral Tablet (NORVASC) 02/04/2019 12:00:00 AM EDT 2.5 mg Oral aborted Take 2.[address] [facility] Escitalopram 20 MG Oral Tablet Escitalopram Oxalate 20 MG Oral Tablet (LEXAPRO) Escitalopram Oxalate 20 MG Oral Tablet (LEXAPRO) 02/04/2019 12:00:00 AM EDT 20 mg Oral aborted Take 20 mg by mouth [facility] 60 ACTUAT Budesonide 0.16 MG/ACTUAT / fo rmoterol fumarate 0.0045 MG/ACTUAT Metered Dose Inhaler [Symbicort] SYMBICORT 160-4.5 MCG/ACT inhaler SYMBICORT 160-4.5 MCG/ACT inhaler 11/28/2018 12:00:00 AM EDT 2 {puff} Inhalatio n aborted Inhale 2 puffs into the lungs Tw o Times Daily [facility] albuterol (PROVENTIL HFA;VENTOLIN HFA) 108 (90 Base) M CG/ACT inhaler [id number] 11/18/2018 12:00:00 AM EDT 2 {puff} Inhalation aborted Inhale 2 puffs as needed [facility] Amlodipine 10 MG Oral Tablet amLODIPine (NORVASC) 10 M G tablet amLODIPine (NORVASC) 10 MG tablet 25 mg Oral aborted Take 25 mg by mouth 2 (two) times a day [facility] Furosemide 20 MG Oral Tablet furosemide (LASIX) 20 MG tablet furosemide (LASIX) 20 MG tablet 20 mg Oral aborted Take 20 mg by mouth daily [facility] pregabalin 100 MG Oral Capsule pregabalin (LYRICA) 100 MG capsule pregabalin (LYRICA) 100 MG capsule 100 mg Oral aborted Take 100 mg by mouth 3 (three) times a day [facility] Insurance Providers Payer name Policy type / Coverage type Policy ID Covered republican ID Covered republican's relationship to bang Policy Bang Plan Information ARY [id number] SP [id number] [place] [id number] S [id number] ARY EXCHANGE [id number] ARY EXCHANGE [id number] Renata [id number] ARY EXCHANGE U [id number] Self [id number] BCBS EMPIRE GERBER DIV [id number] SP [id number] [facility] [id number] SP [id number] ARY UTAH [id number] SP [id number] BCBS EMPIRE GERBER DIV [id number] SP [id number] [facility] [id number] SP [id number] WORKERS COMPENSATION GENERIC W [id number] Empl [id number] [employer] INS [facility] W [id number] Empl [id number] ARY CARE UTAH [id number] S [id number] [place] EMPIRE [id number] S [id number] [facility] O [id number] S [id number] ARY ESSENTIAL PLAN 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 [id number] EMPIRE PLAN [facility] U [id number] Self [id number] BCBS EMPIRE GERBER DIV [id number] SP [id number] [employer] [place] EMPIRE [id number] 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 [id number] BCBS EMPIRE GERBER DIV [id number] SP [id number] [employer]US [employer] EMPIRE [id number] 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 [id number] BCBS EMPIRE GERBER DIV [id number] SP [id number] [facility] W [id number] Empl [id number] BCBS EMPIRE GERBER DIV [id number] SP [id number] PREFERRED INSURANCE E [id number] Self [id number] [facility] [id number] S [id number] BLUE CROSS [id number] S [id number] [facility] [id number] S [id number] EXCELLUS BCBS [id number] Renata YLS [id number] EXCELLUS BCBS PI PI EXCELLUS BCBS [id number] Renata YLS [id number] [facility] INS FUND W [id number] Empl [id number] [facility] INS [facility] W [id number] Empl [phone] [id number] [place] BLUE CROSS -O/P [id number] BLUE CROSS [id number] S [id number] AUTO NO FAULT [id number] S [id number] AUTO NO FAULT [id number] S [id number] BLUE CROSS [id number] S [id number] Problems, Conditions, and Diagnoses Code Display Name Description Problem Type Effective Dates Data Source(s) Z99.81 [id number] Requires continuous at home supplemental oxygen Problem 06/10/2020 12:00:00 AM EST eCW1 (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) 867434887 Hypoxia Hypoxia Problem 05/27/2020 12:00:00 AM ES T MEDENT ([facility], ) 080134527 Lung function testing abnormal Lung function testing a bnormal Problem 05/27/2020 12:00:00 AM EST MEDENT ([facility], ) 824290401 Lung function testing abnormal Lung function testing a bnormal Problem 05/18/2020 12:00:00 AM EST MEDENT ([facility], ) 904321196 Hypoxia Hypoxia Problem 05/18/2020 12:00:00 AM ES T MEDENT ([facility], ) 495763946 Hypoxia Hypoxia Problem 04/22/2020 12:00:00 AM ES T MEDENT ([facility], ) 534252869 Lung function testing abnormal Lung function testing a bnormal Problem 04/22/2020 12:00:00 AM EST MEDENT ([facility], ) F32.9 29069095 Depression, unspecified depression type P roblem 04/20/2020 12:00:00 AM EST eCW1 ([facility]) 583460171 Hypoxia Hypoxia Problem 04/14/2020 12:00:00 AM ES T MEDENT ([facility], ) 154709000 Lung function testing abnormal Lung function testing a bnormal Problem 04/14/2020 12:00:00 AM EST MEDENT ([facility], ) 9451744 Cardiomegaly Cardiomegaly Problem 04/06/2020 12:00:00 A M EDT MEDENT ([facility], ) 905411555 Hypoxia Hypoxia Problem 04/06/2020 12:00:00 AM ED T MEDENT ([facility], ) 194300045 Lung function testing abnormal Lung function testing a bnormal Problem 04/06/2020 12:00:00 AM EDT MEDENT ([facility], ) G25.2 62996663 Intention tremor Problem 03/30/2020 12:00:00 AM EDT eCW1 ([facility]) J96.11 Chronic respiratory failure with hypoxia Chronic respiratory failure with hypoxia 25599974 02/09/2020 12:00:00 AM EDT [facility] R09.02 Severe hypoxemia Severe hypoxemia 18950976 02/09/2020 12 :00:00 AM EDT [facility] 878750074 Hypoxia Hypoxia Problem 12/31/2019 12:00:00 AM ED T MEDENT ([facility], ) 183329609 Lung function testing abnormal Lung function testing a bnormal Problem 12/31/2019 12:00:00 AM EDT MEDENT ([facility], ) J98.11 11872909 Bilateral atelectasis Problem 10/28/2019 12: 00:00 AM EDT eCW1 ([facility]) J98.11 30086787 Bilateral atelectasis Problem 10/28/2019 12: 00:00 AM EDT eCW1 (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 Problem 09/11 12:00:00 AM EDT MEDENT ([facility], ) 010022200 Lung function testing abnormal Lung function testing a bnormal Problem 10/07/2019 12:00:00 AM EDT MEDENT ([facility], ) 23959164 Diabetes mellitus Diabetes mellitus Problem 09/11/2019 12:00:00 AM EDT MEDENT ([facility], ) 48014038 Numbness Numbness Problem 09/11/2019 12:00:00 AM ED T MEDENT ([facility], ) 217745125 Chronic inflammatory demyelinating polyn europathy Chronic inflammatory demyelinating polyneuropathy Problem 09/11/2019 12:00:00 AM EDT MED ENT ([facility], ) 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) 4825760 Tachycardia Tachycardia Problem 09/03/2019 12:00:00 AM EDT MEDENT ([facility], ) L30.9 929075073 Dermatitis Problem 08/26/2019 12:00:00 AM ED T eCW1 ([facility]) L30.9 493554011 Dermatitis Problem 08/26/2019 12:00:00 AM ED T eCW1 ([facility]) G47.33 82719809 Obstructive sleep apnea syndrome Problem 05/30/2019 12:00:00 AM EST eCW1 ([facility]) G47.33 64692049 Obstructive sleep apnea syndrome Problem 05/30/2019 12:00:00 AM EST eCW1 ([facility]) G61.81 428016003 CIDP (chronic inflammatory demye linating polyneuropathy) Problem 04/30/2019 12:00:00 AM EST eCW1 ([facility]) Z79.52 [id number] Current chronic use of systemic steroi ds Problem 04/30/2019 12:00:00 AM EST eCW1 ([facility]) B37.2 71617995 Mucocutaneous candidiasis Problem 04/30/2019 12:00:00 AM EST eCW1 ([facility]) Z86.14 035001458 Hx MRSA infection Problem 04/30/2019 12:00:0 0 AM EST eCW1 ([facility]) I10 48162204 Essential hypertension Problem 04/30/2019 12 :00:00 AM EST eCW1 ([facility]) J12.3 752592399 Human metapneumovirus (hMPV) pneumonia Pr oblem 04/30/2019 12:00:00 AM EST eCW1 ([facility]) B37.2 27911504 Mucocutaneous candidiasis Problem 04/30/2019 12:00:00 AM EST eCW1 ([facility]) Z86.14 778447179 Hx MRSA infection Problem 04/30/2019 12:00:0 0 AM EST eCW1 ([facility]) Z79.52 [id number] Current chronic use of systemic steroi ds Problem 04/30/2019 12:00:00 AM EST eCW1 ([facility]) G61.81 713497460 CIDP (chronic inflammatory demye linating polyneuropathy) Problem 04/30/2019 12:00:00 AM EST eCW1 ([facility]) J12.3 287168735 Human metapneumovirus (hMPV) pneumonia Pr oblem 04/30/2019 12:00:00 AM EST eCW1 ([facility]) I10 75816955 Essential hypertension Problem 04/30/2019 12 :00:00 AM EST eCW1 ([facility]) J96.11 Chronic respiratory failure with hypoxia Chronic respiratory failure with hypoxia Diagnosis 06/09/2020 10:54:04 AM EST [facility] I10 Essential (primary) hypertension Essential (primary) h ypertension Diagnosis 03/23/2020 08:18:12 AM EDT [facility] G89.29 Other chronic pain Other chronic pain Diagnosis 11/2019 09:51:00 AM [facility] R51.9 Headache, unspecified Headache, unspecified Diagnosis 03/17/2020 09:51:00 AM [facility] R83.8 Other abnormal findings in cerebrospinal fluid Other abnormal findings in cerebrospinal fluid Diagnosis 03/17/2020 09:51:00 AM [facility] R00.2 Palpitations Palpitations Diagnosis 03/09/2020 11:27:18 A M EDT [facility] R06.02 Shortness of breath Shortness of breath Diagnosis 0 03/09/2020 11:27:18 AM EDT [facility] R09.02 Hypoxemia Hypoxemia Diagnosis 02/10/2020 08:25:54 AM ED [facility] G93.2 Benign intracranial hypertension Benign intracra nial hypertension Diagnosis 02/07/2020 09:44:33 AM EDT [facility] R53.1 Weakness Weakness Diagnosis 02/07/2020 08:13:29 AM ED [facility] M79.2 Neuralgia and neuritis, unspecified Neuralgia an d neuritis, unspecified Diagnosis 02/07/2020 08:13:29 AM [facility] R26.89 Other abnormalities of gait and mobility Other abnormalities of gait and mobility Diagnosis 01/03/2020 01:50:46 PM [facility] G25.81 Restless legs syndrome Restless legs syndrome Diagnosi s 01/03/2020 01:50:46 PM [facility] R74.0 Nonspecific elevation of lev els of transaminase and lactic acid dehydrogenase [LDH] NONSPEC ELEV OF LEVELS OF TRANSAMNS & LA CTIC ACID DEHYDRGNSE Diagnosis 11/01/2019 12:31:00 PM EDT [facility] G61.9 Inflammatory polyneuropathy, unspecified Inflammatory polyneuropathy, unspecified Diagnosis 10/07/2019 10:20:54 AM [facility] R73.9 Hyperglycemia, unspecified HYPERGLYCEMIA, UNSPECIFIED Diagnosis 09/17/2019 04:49:00 PM [facility] E78.2 Mixed hyperlipidemia MIXED HYPERLIPIDEMIA Diagnosis 09/17/2019 04:49:00 PM [facility] E55.9 Vitamin D deficiency, unspecified VITAMIN D DEFI CIENCY, UNSPECIFIED Diagnosis 09/17/2019 04:49:00 PM [facility] I10 Essential (primary) hypertension ESSENTIAL (PRIMARY) H YPERTENSION Diagnosis 09/17/2019 04:49:00 PM [facility] Z91.09 Other allergy status, other than to drug s and biological substances OTH ALLERGY STATUS, OTH THAN TO DRUGS AND BIOLG SUBSTANCES Diagnosis 09/11/2019 04:20:00 PM [facility] Z79.899 Other mcc (current) drug therapy O THER [employer] MANAGER (CURRENT) DRUG THERAPY Diagnosis 09/11/2019 04:20:00 PM [facility] Z79.82 snf (current) use of aspirin JAIL (CU RRENT) USE OF ASPIRIN Diagnosis 09/11/2019 04:20:00 PM [facility] I10 Essential (primary) hypertension ESSENTIAL (PRIMARY) H YPERTENSION Diagnosis 09/11/2019 04:20:00 PM [facility] K21.9 Gastro-esophageal reflux disease without esophagitis GASTRO-ESOPHAGEAL REFLUX DISEASE WITHOUT ESOPHAGITIS Diagnosis 09/11/2019 04:20:[address] [facility] B97.89 Other viral agents as the cause of disea ses classified elsewhere OTH VIRAL AGENTS THE CAUSE OF DISEASES CLASSD ELSWHR Diagnosis 04:20:00 PM [facility] J06.9 Acute upper respiratory infection, unspe cified ACUTE UPPER RESPIRATORY INFECTION, UNSPECIFIED Diagnosis 09/11/2019 04:20:00 PM [facility] Z87.442 Personal history of urinary calculi PERSONAL HIS TORY OF URINARY CALCULI Diagnosis 08/23/2019 10:45:00 AM [facility] L03.115 Cellulitis of right lower limb CELLULITIS OF RIGHT LOW ER LIMB Diagnosis 08/23/2019 10:45:00 AM [facility] R21 Rash and other nonspecific skin eruption RASH AND OTHER NONSPECIFIC SKIN ERUPTION Diagnosis 08/23/2019 10:18:00 AM [facility] R06.02 Shortness of breath SHORTNESS OF BREATH Diagnosis 0 08/23/2019 10:18:00 AM [facility] Z09 Encounter for follow-up exam ination after completed treatment for conditions other than malignant neoplasm ENCNTR FOR F/U EXAM AFT TRTMT FOR COND O TH THAN MALIG NEOPLM Diagnosis 08/14/2019 08:49:00 AM [facility] R26.2 Difficulty in walking, not elsewhere cla ssified DIFFICULTY IN WALKING, NOT ELSEWHERE CLASSIFIED Diagnosis 08/14/2019 08:49:00 AM [facility] M62.81 Muscle weakness (generalized) MUSCLE WEAKNESS (GENERAL IZED) Diagnosis 08/14/2019 08:49:00 AM [facility] M54.5 Low back pain LOW BACK PAIN Diagnosis 08/12/2019 07:40:00 AM [facility] M25.521 Pain in right elbow PAIN IN RIGHT ELBOW Diagnosis 0 08/12/2019 07:40:00 AM [facility] 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 CHRONIC INFLAMMATORY DEMYELINATING POLYNEURITIS Diagnosis 08/12/2019 07:40:00 AM [facility] J96.11 Chronic respiratory failure with hypoxia CHRONIC RESPIRATORY FAILURE WITH HYPOXIA Diagnosis 07/19/2019 07:51:00 AM [facility] G47.33 Obstructive sleep apnea (adult) (pediatr ic) OBSTRUCTIVE SLEEP APNEA (ADULT) (PEDIATRIC) Diagnosis 07/19/2019 07:51:00 AM [facility] 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 PERSONAL HISTORY OF METHICILLIN RESIS STAPH INFECTION Diagno sis 07/05/2019 09:07:00 PM [facility] K58.9 Irritable bowel syndrome without diarrhe a IRRITABLE BOWEL SYNDROME WITHOUT DIARRHEA Diagnosis 07/05/2019 09:07:00 PM [facility] Z68.35 Body mass index (BMI) 35.0-35.9, adult B ARLENE MASS INDEX (BMI) 35.0-35.9, ADULT Diagnosis 07/05/2019 09:07:00 PM [facility] E66.9 Obesity, unspecified OBESITY, UNSPECIFIED Diagnosis 07/05/2019 09:07:00 PM [facility] B97.81 Human metapneumovirus as the cause of di seases classified elsewhere HUMAN METAPNEUMOVIRUS THE CAUSE OF DISEASES CLASSD ELSWHR Diagnosis 07/05/2019 09:07:00 PM [facility] K76.0 Fatty (change of) liver, not elsewhere c lassified FATTY (CHANGE OF) LIVER, NOT ELSEWHERE CLASSIFIED Diagnosis 07/05/2019 09:07:00 PM [facility] J96.21 Acute and chronic respiratory failure wi th hypoxia ACUTE AND CHRONIC RESPIRATORY FAILURE WITH HYPOXIA Diagnosis 07/05/2019 09:07:00 PM [facility] G62.89 Other specified polyneuropathies OTHER SPECIFIED POLYNEUROPATHIES Diagnosis 07/04/2019 07:39:00 AM [facility] R13.10 Dysphagia, unspecified DYSPHAGIA, UNSPECIFIED Diagnosi s 06/24/2019 01:51:00 PM [facility] Z87.01 Personal history of pneumonia (recurrent ) PERSONAL HISTORY OF PNEUMONIA (RECURRENT) Diagnosis 06/24/2019 01:51:00 PM [facility] G72.9 Myopathy, unspecified MYOPATHY, UNSPECIFIED Diagnosis 06/20/2019 03:54:00 PM [facility] G72.9 Myopathy, unspecified MYOPATHY, UNSPECIFIED Diagnosis 06/19/2019 12:31:00 PM [facility] J96.10 Chronic respiratory failure, unspecified whether with hypoxia or hypercapnia CHRONIC RESPIRATORY FAILURE, UNSP W HYPOXIA OR HYPERCA PNIA Diagnosis 06/18/2019 08:54:00 AM [facility] M21.371 Foot drop, right foot FOOT DROP, RIGHT FOOT Diagnosis 05/15/2019 01:39:00 PM [facility] R20.2 Paresthesia of skin PARESTHESIA OF SKIN Diagnosis 1 07/16/2018 01:39:00 PM [facility] T38.0X5A Adverse effect of glucocorti coids and synthetic analogues, initial encounter ADVERSE EFFECT OF GLUCOCORT/SYNTH ANALOG, INIT Diagnosis 05/07/2019 08:35:00 PM [facility] R73.9 Hyperglycemia, unspecified HYPERGLYCEMIA, UNSPECIFIED Diagnosis 05/07/2019 08:35:00 PM [facility] B37.0 Candidal stomatitis CANDIDAL STOMATITIS Diagnosis 1 07/07/2018 08:35:00 PM [facility] E87.2 Acidosis ACIDOSIS Diagnosis 05/07/2019 08:35:00 PM [facility] F32.9 Major depressive disorder, single episod e, unspecified MAJOR DEPRESSIVE DISORDER, SINGLE EPISODE, UNSPECIFIED Diagnosis 05/07/2019 08:35:00 PM [facility] F41.9 Anxiety disorder, unspecified ANXIETY DISORDER, UNSPEC IFIED Diagnosis 05/07/2019 08:35:00 PM [facility] E66.01 Morbid (severe) obesity due to excess ca lories MORBID (SEVERE) OBESITY DUE TO EXCESS CALORIES Diagnosis 05/07/2019 08:35:00 PM EST [facility] J84.89 Other specified interstitial pulmonary d iseases OTHER SPECIFIED INTERSTITIAL PULMONARY DISEASES Diagnosis 05/07/2019 08:35:00 PM EST [facility] Surgeries/Procedures Procedure Description Date Indications Data Source(s) POCT AMB EKG POCT AMB EKG Routine 06/09/2020 5:00 PM EST Chronic respiratory failure with hypoxia 06/09/2020 10:00:00 PM EST Chronic respiratory failure with hypoxia [facility] Chronic respiratory failure with hypoxia Spirometry 04/06/2020 12:00:00 AM EDT M SANTI ([facility]) Maximum Breathing Capacity, Maximal Voluntary Ventilation 04/06/2020 12:00:00 AM EDT MEDENT ([facility], ) NATRIURETIC PEPTIDE 03/18/2020 12:00:00 AM [facility] BASIC METABOLIC PANEL CALCIUM TOTAL METABOLIC PANEL TOTAL CA 03/18/2020 12:00:00 AM [facility] CELL COUNT, CSF CELL COUNT, CSF Routine 03/17/2020 12:51 PM EDT 03/17/2020 12:51:00 PM [facility] PROTEIN TOTAL XCPT REFRACTOMETRY OTH SRC PROTEIN, CSF Routin e 03/17/2020 12:51 PM EDT 03/17/2020 [facility] B[facility] FLUID OTHER THAN BLOOD GLUCOSE, CSF Routine 03/17/2020 12:51 PM EDT 03/17/2020 [facility] PART[facility] THROMBOPLASTIN TIME (PTT) PARTIAL THROMBOPLASTIN TIME ( PTT) STAT 03/17/2020 10:44 AM EDT 03/17/2020 10:44:00 AM [facility] PROTHROMBIN TIME PROTIME INR STAT 03/17/2020 10:44 AM EDT 03/17/2020 10:44:00 AM [facility] BLOOD COUNT COMPLETE AUTO&AUTO DIFRNTL WBC COUNT CBC AND DIFFER ENTIAL STAT 03/17/2020 10:44 AM EDT 03/17/2020 10:44:00 AM [facility] BASIC METABOLIC PANEL CALCIUM TOTAL BASIC METABOLIC PANEL STAT 03/17/2020 10:44 AM EDT 03/17/2020 10:44:00 AM EDT [facility] Needle electromyography, each extremity, with related paraspinal areas, when performed, done with nerve conduction, amplitude and latency/velocity study; complete, five or more muscles studied, innervated by three or more nerves or four or more spinal levels (list separately in addition to the code for primary procedure). 12/25/2019 12:00:00 AM EDT MEDRENITA T ([facility], ) Needle electromyography, each extremity, with related paraspinal areas, when performed, done with nerve conduction, amplitude and latency/velocity study; complete, five or more muscles studied, innervated by three or more nerves or four or more spinal levels (list separately in addition to the code for primary procedure). 12/25/2019 12:00:00 AM EDT MEDRENITA Diana ([facility], ) [address] Nerve conduction studies 13 or more studies NEW 201212/25/2019 12:00:00 AM EDT MEDCYNDI ([facility], ) HEPATITIS B CORE ANTIBODY HBCAB TOTAL HEP B CORE ANTIBODY TO MIKAEL 11/01/2019 12:00:00 AM [facility] IAAD EIA HEPATITIS B SURFACE ANTIGEN HEPATITIS B SURFACE AG IA 11/01/2019 12:00:00 AM [facility] HEPATITIS B SURF ANTIBODY HBSAB HEP B SURFACE ANTIBODY 10/31 12:00:00 AM [facility] HEPATITIS C ANTIBODY HEPATITIS C AB TEST 11/01/2019 12:00:00 AM [facility] IRON BINDING CAPACITY IRON BINDING TEST 11/01/2019 12:00:00 AM [facility] IRON ASSAY OF IRON 11/01/2019 12:00:00 AM [facility] FERRITIN ASSAY OF FERRITIN 11/01/2019 12:00:00 AM [facility] HEPATIC FUNCTION PANEL HEPATIC FUNCTION PANEL 11/01/2019 12:00:00 A M [facility] EKG- ALL NON MCR/TRI PAYERS 10/28/2019 12:00:00 AM EDT eCW1 ([facility]) Bronchospasm Evaluation 10/07/2019 12:00:00 AM EDT MEDENT ([facility], ) Maximum Breathing Capacity, Maximal Voluntary Ventilation 10/07/2019 12:00:00 AM [facility] ([facility]) Plethysmography Determination Lung Volumes & Per Airway Resi st 10/07/2019 12:00:00 AM [facility] ([facility]) DIFFUSING CAPACITY 10/07/2019 12:00:00 AM [facility] ([facility], ) MRI SPINAL CANAL LUMBAR W/O CONTRAST MATERIAL 09/30/19 12:00:00 AM [facility] ([facility]) MRI SPINAL CANAL LUMBAR W/O CONTRAST MATERIAL 09/30/19 12:00:00 AM [facility] ([facility]) PROTEIN ELECTROPHORETIC FRACTJ&QUANTJ SERUM PROTEIN E-PHORES IS SERUM 09/17/2019 12:00:00 AM [facility] PROTEIN XCPT REFRACTOMETRY SERUM PLASMA/WHL BLD ASSAY OF PRO TEIN SERUM 09/17/2019 12:00:00 AM [facility] IMMUNOFIXJ ELECTROPHORESIS SERUM IMMUNOFIX E-PHORESIS SERUM 09/17/2019 12:00:00 AM [facility] THYROXINE FREE ASSAY OF FREE THYROXINE 09/17/2019 12:00:00 AM [facility] THYROID STIMULATING HORMONE TSH ASSAY THYROID STIM HORMONE 0 09/17/2019 12:00:00 AM [facility] 25 HYDROXY INCLUDES FRACTIONS IF PERFORMED VITAMIN D 25 HYDR OXY 09/17/2019 12:00:00 AM [facility] BLOOD COUNT COMPLETE AUTO&AUTO DIFRNTL WBC COUNT COMPLETE CB C W/AUTO DIFF WBC 09/17/2019 12:00:00 AM [facility] HEMOGLOBIN GLYCOSYLATED A1C GLYCOSYLATED HEMOGLOBIN TEST 12/2019 12:00:00 AM [facility] LIPID PANEL LIPID PANEL 09/17/2019 12:00:[address] [facility] COMPREHENSIVE METABOLIC PANEL COMPREHEN METABOLIC PANEL 12/2019 12:00:00 AM [facility] PRESSURIZED/NONPRESSURIZED INHALATION TREATMENT AIRWAY INHAL ATION TREATMENT 09/11/2019 12:00:00 AM [facility] [id number] X-RAY EXAM CHEST 1 VIEW 09/11/2019 12:00:00 AM [facility] ECG ROUTINE ECG W/LEAST 12 LDS TRCG ONLY W/O I&R ELECTROCARD IOGRAM TRACING 09/11/2019 12:00:00 AM [facility] [address] SARS-COV-2 COVID-19 AMP PRB 09/11/2019 12:00:00 AM [facility] IADNA MYCOPLSM PNEUMONIAE AMPLIFIED PROBE TQ M.PNEUMON DNA A MP PROBE 09/11/2019 12:00:00 AM [facility] IADNA CHLAMYDIA PNEUMONIAE AMPLIFIED PROBE TQ CHYLMD PNEUM D NA AMP PROBE 09/11/2019 12:00:00 AM [facility] IADNA NOS AMPLIFIED PROBE TQ EACH ORGANISM DETECT AGENT NOS DNA AMP 09/11/2019 12:00:00 AM [facility] [address] RESP VIRUS 12-25 TARGETS 09/11/2019 12:00:00 AM [facility] CULTURE BACTERIAL BLOOD AEROBIC W/ID ISOLATES BLOOD CULTURE FOR BACTERIA 09/11/2019 12:00:00 AM [facility] URNLS DIP STICK/TABLET RGNT AUTO W/O MICROSCOPY URINALYSIS A UTO W/O SCOPE 09/11/2019 12:00:00 AM [facility] THROMBOPLASTIN TIME PARTIAL PLASMA/WHOLE BLOOD THROMBOPLASTI N TIME PARTIAL 09/11/2019 12:00:00 AM [facility] PROTHROMBIN TIME PROTHROMBIN TIME 09/11/2019 12:00:00 AM [facility] BLOOD COUNT COMPLETE AUTO&AUTO DIFRNTL WBC COUNT COMPLETE CB C W/AUTO DIFF WBC 09/11/2019 12:00:00 AM [facility] MAGNESIUM ASSAY OF MAGNESIUM 09/11/2019 12:00:00 AM [facility] NATRIURETIC PEPTIDE ASSAY OF NATRIURETIC PEPTIDE 09/11/2019 12:00:0 0 AM [facility] LACTATE ASSAY OF LACTIC ACID 09/11/2019 12:00:00 AM [facility] BLOOD GASES ANY COMBINATION PH PCO2 PO2 CO2 HCO3 BLOOD GASES ANY COMBINATION 09/11/2019 12:00:00 AM [facility] TROPONIN QUANTITATIVE ASSAY OF TROPONIN QUANT 09/11/2019 12:00:00 A M [facility] LIPASE ASSAY OF LIPASE 09/11/2019 12:00:00 AM [facility] COMPREHENSIVE METABOLIC PANEL COMPREHEN METABOLIC PANEL 06/2019 12:00:00 AM [facility] FIBRIN DGRADJ PRODUCTS D-DIMER QUANTITATIVE FIBRIN DEGRADATI ON QUANT 09/11/2019 12:00:00 AM [facility] Injection, magnesium sulfate, per 500 mg 09/11/2019 12 :00:00 AM [facility] Non-covered item or service 09/11/2019 12:00:00 AM [facility] COLLECTION VENOUS BLOOD VENIPUNCTURE ROUTINE VENIPUNCTURE 12:00:00 AM [facility] IV INFUSION THERAPY/PROPHYLAXIS /DX 1ST TO 1 HR THER/PROPH/D IAG IV INF INIT 09/11/2019 12:00:00 AM [facility] EMERGENCY DEPT VISIT HIGH SEVERITY&THREAT FUNCJ EMERGENCY DE PT VISIT 09/11/2019 12:00:00 AM [facility] [address]36 X-RAY EXAM CHEST 2 VIEWS 08/23/2019 12:00:00 AM [facility] Injection, ketorolac tromethamine, per 15 mg 0 12:00:00 AM [facility] THER PROPH/DX NJX IV PUSH SINGLE/1ST SBST/DRUG THER/PROPH/DI AG INJ IV PUSH 08/23/2019 12:00:00 AM [facility] IV INFUSION HYDRATION EACH ADDITIONAL HOUR HYDRATE IV INFUSI ON ADD-ON 08/23/2019 12:00:00 AM [facility] outpatient clinic visit for assessment and ma nagement of a patient Hospital Outpatient Clinic Visit 08/12/2019 12:00:00 AM [facility] Computerized Tomography (CT Scan) of Neck using Low Os molar Contrast CT SCAN OF NECK USING L OSM CONTRAST 07/06/2019 12:00:00 AM [facility] Computerized Tomography (CT Scan) of [address] st and Abdomen using Low Osmolar Contrast CT SCAN OF CHEST & ABD USING L OSM CONTRAST 07/05/2019 12:00 :00 AM [facility] Measurement of Cardiac Rhythm, External Approach MEASU REMENT OF CARDIAC RHYTHM, EXTERNAL APPROACH 07/05/2019 12:00:00 AM [facility] Assistance with Respiratory Ventilation, Less than 24 Consecutive Hours, Continuous Positive Airway Pressure ASSISTANCE WITH RESPIRATORY VENTILATION, <24 HRS, CPAP 07/05/2019 12:00:00 AM [facility] BIOPSY MUSCLE DEEP 07/04/2019 12:00:00 AM [facility] LEVEL I SURG PATHOLOGY GROSS EXAMINATION ONLY SURGICAL PATH GROSS 07/04/2019 12:00:00 AM [facility] GAMMAGLOBULIN IGA IGD IGG IGM EACH ASSAY IGA/IGD/IGG/IGM EAC H 07/04/2019 12:00:00 AM [facility] CELL COUNT MISC BODY FLUIDS W/DIFFERENTIAL COUNT BODY FLUID CELL COUNT 07/04/2019 12:00:00 AM [facility] GLUCOSE QUANTITATIVE BLOOD XCPT REAGENT STRIP ASSAY GLUCOSE BLOOD QUANT 07/04/2019 12:00:00 AM [facility] GLUCOSE BODY FLUID OTHER THAN BLOOD GLUCOSE OTHER FLUID 06/13 12:00:00 AM [facility] PROTEIN ELECTROPHORETIC FRACTJ&QUANTJ SERUM PROTEIN E-PHORES IS SERUM 07/04/2019 12:00:00 AM [facility] Unclassified drugs 07/04/2019 12:00:00 AM [facility] Injection, propofol, 10 mg 07/04/2019 12:00:00 AM [facility] Injection, fentanyl citrate, 0.1 mg 07/04/2019 12:00:0 0 AM [facility] Injection, midazolam hydrochloride, per 1 mg 0 12:00:00 AM [facility] Injection, cefoxitin sodium, 1 gm 07/04/2019 12:00:00 AM [facility] Excision of Right Upper Leg Muscle, Open Approach, Yessica gnostic EXCISION OF RIGHT UPPER LEG MUSCLE, OPEN APPROACH, DIAGN 07/04/2019 12:00:00 AM [facility] EVAL ORAL&PHARYNGEAL SWLNG FUNCJ EVALUATE SWALLOWING FUNCTIO N 06/24/2019 12:00:00 AM [facility] THER PX 1/> AREAS EA 15 MIN GAIT TRAINJ W/STAIR GAIT TRAININ G THERAPY 06/21/2019 12:00:00 AM [facility] THROMBOPLASTIN TIME PARTIAL PLASMA/WHOLE BLOOD THROMBOPLASTI N TIME PARTIAL 06/20/2019 12:00:00 AM [facility] PROTHROMBIN TIME PROTHROMBIN TIME 06/20/2019 12:00:00 AM [facility] THER PX 1/> AREAS EACH 15 MIN NEUROMUSC REEDUCAJ NEUROMUSCUL AR REEDUCATION 06/18/2019 12:00:00 AM [facility] THERAPEUTIC PX 1/> AREAS EACH 15 MIN EXERCISES THERAPEUTIC E XERCISES 06/14/2019 12:00:00 AM [facility] [address]269 PULMONARY STRESS TESTING 06/13/2019 12:00:00 AM [facility] 00409 NRV CNDJ TEST 13/> STUDIES 05/15/2019 12:00:00 AM [facility] Ultrasonography of Bilateral Lower Extremity Veins ULT RASONOGRAPHY OF BILATERAL LOWER EXTREMITY VEINS 05/09/2019 12:00:00 AM [facility] Magnetic Resonance Imaging (MRI) of Lumbar Spine using Other Contrast MRI OF LUMBAR SPINE USING OTH CONTRAST 05/09/2019 12:00:00 AM [facility] Magnetic Resonance Imaging (MRI) of Lumbar Spine MAGNE TIC RESONANCE IMAGING (MRI) OF LUMBAR SPINE 05/09/2019 12:00:00 AM [facility] Magnetic Resonance Imaging (MRI) of Thoracic Spine usi ng Other Contrast MRI OF THORACIC SPINE USING OTH CONTRAST 05/09/2019 12:00:00 AM [facility] Magnetic Resonance Imaging (MRI) of Thoracic Spine MAG NETIC RESONANCE IMAGING (MRI) OF THORACIC SPINE 05/09/2019 12:00:00 AM [facility] [id number] PT EVAL HIGH COMPLEX 45 MIN 05/01/2019 12:00:00 AM [facility] Results ID Date Data Source [id number] 06/16/2020 07:34:00 PM EST [facility] Name Value Range Interpretation Code Description Data Agueda rce(s) Supporting Document(s) SARS-CoV-2 (COVID 19) [facility] This lab was ordered by [facility] a nd reported by [facility]. ID Date Data Source [id number] 05/27/2020 02:35:12 PM EST [facility] Name Value Range Interpretation Code Description Data Agueda rce(s) Supporting Document(s) Progress Note [facility] EWKNQv8oDdAXCwMy86/PVBxyIGUik9YrVTdaNTs5FKspYQXsS1MmWFV1jW2vDZG5XBcOTaPtWdJrVbH7 lbm [file] ICAgICAgICAgICAgICAgICAgICAgICAgICAgICAgICAgICAgICAgICAgICAgICAgICAgICAgICAgICAg ICAgICAgICAgICAgICAgICAgICAgICAgICAgICAgICANCiAgICAgICAgICAgICAgICAgICAgICAgICAg ICAgICAgICAgICAgICAgICAgICAgICAgICAgICAgIC AgICAgICAgICAgICAgICAgICAgICAgICAgICAgICAgICAgICAgICAgICANCiAgICAgICAgICAgICAgIC AgICAgICAgICAgICAgICAgICAgICAgICAgICAgICAgICAgICAgICAgICAgICAgICAgICAgICAgICAgIC AgICAgICAgICAgICAgICAgICAgICAgICANCiAgICAg ICAgICAgICAgICAgICAgICAgICAgICAgICAgICAgICAgICAgICAgICAgICAgICAgICAgICAgICAgICAg ICAgICAgICAgICAgICAgICAgICAgICAgICAgICAgICAgICANCiAgICAgICAgICAgICAgICAgICAgICAg ICAgICAgICAgICAgICAgICAgICAgICAgICAgICAgIC AgICAgICAgICAgICAgICAgICAgICAgICAgICAgICAgICAgICAgICAgICAgICANCiAgICAgICAgICAgIC AgICAgICAgICAgICAgICAgICAgICAgICAgICAgICAgICAgICAgICAgICAgICAgICAgICAgICAgICAgIC AgICAgICAgICAgICAgICAgICAgICAgICAgICANCiAg ICAgICAgICAgICAgICAgICAgICAgICAgICAgICAgICAgICAgICAgICAgICAgICAgICAgICAgICAgICAg ICAgICAgICAgICAgICAgICAgICAgICAgICAgICAgICAgICAgICANCiAgICAgICAgICAgICAgICAgICAg ICAgICAgICAgICAgICAgICAgICAgICAgICAgICAgIC AgICAgICAgICAgICAgICAgICAgICAgICAgICAgICAgICAgICAgICAgICAgICAgICANCiAgICAgICAgIC AgICAgICAgICAgICAgICAgICAgICAgICAgICAgICAgICAgICAgICAgICAgICAgICAgICAgICAgICAgIC AgICAgICAgICAgICAgICAgICAgICAgICAgICAgICAN CiAgICAgICAgICAgICAgICAgICAgICAgICAgICAgICAgICAgICAgICAgICAgICAgICAgICAgICAgICAg ICAgICAgICAgICAgICAgICAgICAgICAgICAgICAgICAgICAgICAgICANCjw/fBNiX2sgcUJwqqJ1C7fi Wd3QBm8NPN2wk4MbOXQzHGptalUrGjpEKpJhBCHdIp vWWkv5EBepSD7KnZFbI9PnJ6EySCywFQ2SBRAhZONfoEMdDOXwFQKdZlX8JCLhDHnaNL9WoWIgNRvaOF UbJLTqSxRtNNWcCXJmIZVgQWVqUFOLMZVfARHlOdMhJJVeGPXuYSttIGUDRO2EIlBzP0RwoR08FOdIUr 4+EIljesXxZlgFGlR2NHAnt5SyOWn6CC2ZWCCgKpbp u1FaCjegDPRDBKrzHK8OXOI1GLU6NBSrQv7RIGKvA227etRvTB8HNi5ELdAyIN1cxo0DAetgZAMnHmhU Usr4WEegGX8PiQYzQAyNtb6topRrupXUt1ChegVzoMJGHRkhbXGVCHB6DWbkkePmCL8YLEI9IXXkTnVo BhFuHjObMAL7ASPtEQ9sHCttTI6CRIR7SYmmZVAhRU OxG8xLTpGmJBDjBUDsvTneRB2OAlQeI8HvjjVnzVNwLyChVPJTFl6+CZqpkaVgRjoDBoO5PVXby0QtVY e4ZN9JEBIvZYebNA5KWRUirT7rECakWJ0BTdRpGUAwRBMVRzCwG05esFZnBMd4T0MxJhIdMWCjGuksLC MgPDwvTmFtZXMgWyBdDQogID4+ID4+OZajMI5RAGdm htXnRARjFx4FQTHuSIKiSR5wITDzXYRbL6X4yEpfXLTOCdOuM8gwktzyRN9qNVScE959oIuydoPpWCH9 ITYwUz2SMSFwNKS5FYZohHVlAeHzVASJPYayEE7YoQRsPVL7dS0eYQihRFVjBLAkK0jEIxVcbCfbQM43 bGwgbnVsbCBdDQo+Ef4PMA4ie6SiRQx6vuQdBDgeGS RiQZnzWVKwVBKqEBHyBSY7FHH8UDYDQkHySUGfGFVuFHuqZAQhTXXntz7EXFFtGJO7PePqIQGiPUZnSN CbUTxeFYGnKXJ3OPopUIOvZLKlME1UUkCmQBAwYVGbESzgKXRyJRSnsc7EXGVgQZFzHTD2YaSwGIRaAP PaFOfiOVMhVCF9EruaMIIuYGZaRN5RWaRoNQQyUOd9 BIZyIIUdBIJrvm8PHNKqSPClJzd6QmKfKTKkLMLlSWklFVQvYCTjPlswFXTbPSPqZD2SAtIoFVHwSIX5 QvJpJKIrBHQmti5BANUnKWLiVxumHcTvMIUrWNLeRRwuWBPxVBGiITF9IDWpLMCuFF7EFrVuWJOiFQsv EXliNEWnWYKzge1ZTSCtWULvVdFfSLJxPDByYUTvCH ggFIGrEROlWUAlMZSyHQDsGC0YUnRnTNNwVfMdWocoOKJuZTCxsp1BKRIsFEBhGKQcAmCmHNRgRNWjQO ikTDTmNML3MaY2KLBsURDtUR4YBbMdWDLkBfH5VXcaJULmPZNayu4ZLGKfRKIaLGn2QiOqYUNjYEQqXF uhLBVxSVT4LHZ3UCNiZQMaJX0ZWgTyBLLfCfP1Sujp KUMcMSUtcn5GWHNmDFKeAoYeUAMsUJHoCUDrKUmzBRZrXAF8WbF1DEDwTORpAS7IHqWgSADsAjm0WHvl BPGmZRDoph1FXVNnUXVbXME8VtCeBZGeEFRxWWttFOXxIMI8DvryUZIzSNNwGZ5PPwZjFAEeMji4JeQk IKVbZDJqvj5AXLIxCLCcNLL0HDApKDYhVHHnXQquZD VpCSFkYaTePEItYRQhVK7BTdVwBKYfSWJ1IAPcIKOfVACorw6ZZJZwRJZ2KXi9MTIcZKZeOFMpBIlhTI MlDAYePNGmPEDwRFZdCW4WKqZyDINiDVAdUcKjFQHoMBVewj2JRJKcKXG5OhLxKiDhOZCaSXEtABxgJD BcSYEeKrQlYJLnBZFbIC5IYbEfKAGdWDBeIYhgAOXp XLJasg0LGCCiIEI6OPN9PKAxWGGyOIKzPCzrANTjHFH9VRXoRSUzMBOgUZ7UNxOpEMgjTNEKPgh3TQsu H4l6BCX4WR3QI8Sdq1PmIpixSXAUHJuvAL3xnuInGCQcXb9BB2xTOttyXxopWtNoDMPyHhcfTzXxLzZ0 WgCvUGdbX4PsHnIbHS9iJKSlBKZaCWI8BXV4HhC1Jx OhYpjaNSGhUWX7XIG3FNZvVuKoCV4GXo3EDqQ9GHH6xHKnJg7QICA5IMTWTaJaCA1XJCw= ID Date Data Source [id number] 05/18/2020 09:54:00 AM EST [facility] ([facility], ) Name Value Range Interpretation Code Description Data Agueda rce(s) Supporting Document(s) Glucose, Fasting 114 mg/dL 70-100 Above high normal [facility] ([facility]) Creatinine For GFR 1.10 mg/dL 0.70-1.30 Normal (applies to non -numeric results) [facility] ([facility], ) Blood Urea Nitrogen 20 mg/dL 7-18 Above high normal [facility] ([facility]) Potassium Serum 4.8 meq/L 3.5-5.1 Significant change down [facility] ([facility], ) Sodium Level 139 meq/L 136-145 Normal (applies to non-numeric res ults) [facility] ([facility], ) Glomerular Filtration Rate Laboratory test result Normal (applies to non- numeric results) [facility] ([facility], ) <content>Units are mL/min/1.73 m2</content>
<content></content>
<content>Chronic Kidney Disease Staging per NKF:</content>
<content></content>
<content>Stage I & II GFR >=60 Normal to Mildly Decreased</content>
<content>Stage III GFR 30- 59 Moderately Decreased</content>
<content>Stage IV GFR 15-29 Severely Decreased</content>
<content>Stage V GFR <15 Very Little GFR Left</content>
<content>ESRD GFR <15 on [employer]</content>
<content></content> Carbon Dioxide Level 29 meq/L 21-32 Normal (applies to non-num emilia results) [facility] ([facility], ) Chloride Level 102 meq/L 98-107 Normal (applies to non-numeric r esults) [facility] ([facility], ) Calcium Level 9.3 mg/dL 8.5-10.1 Normal (applies to non-numeric re sults) [facility] ([facility], ) Anion Gap 8 meq/L 8-16 Normal (applies to non-numeric resul ts) [place], ) Ast/Sgot 24 U/L 7-37 Normal (applies to non-numeric resul ts) [facility] ([facility], ) Alkaline Phosphatase 107 U/L 45-117 Normal (applies to non-num emilia results) [place], ) Alt/SGPT 61 U/L 12-78 Normal (applies to non-numeric resul ts) [facility] ([facility]) Bilirubin,Total 0.7 mg/dL 0.2-1.0 Normal (applies to non-numeric results) [facility] ([facility]) Total Protein 7.5 GM/DL 6.4-8.2 Normal (applies to non-numeric re sults) [facility]) Albumin 4.3 GM/DL 3.2-5.2 Normal (applies to non-numeric resul ts) [facility] ([facility]) Albumin/Globulin Ratio 1.3 Normal (applies to non-n umeric results) [facility]) ID Date Data Source [id number] 05/15/2020 11:53:00 PM EST [facility] Name Value Range Interpretation Code Description Data Agueda rce(s) Supporting Document(s) SARS-CoV-2 (COVID 19) [facility] This lab was ordered by [facility] a nd reported by [facility]. ID Date Data Source [id number] 04/22/2020 02:26:00 PM EST [facility] ([facility]) Name Value Range Interpretation Code Description Data Agueda rce(s) Supporting Document(s) Magnesium [Mass/volume] in Serum or Plasma 2.1 mg/dL 1.8-2 .4 Normal (applies to non-numeric results) [facility] ([facility], ) ID Date Data Source [id number] 04/22/2020 02:26:00 PM EST [facility] ([facility]) Name Value Range Interpretation Code Description Data Agueda rce(s) Supporting Document(s) Glucose, Fasting 114 mg/dL 70-100 Above high normal [facility]) Glomerular Filtration Rate Laboratory test result Normal (applies to non- numeric results) [facility]) <content>Units are mL/min/1.73 m2</content>
<content></content>
<content>Chronic Kidney Disease Staging per NKF:</content>
<content></content>
<content>Stage I & II GFR >=60 Normal to Mildly Decreased</content>
<content>Stage III GFR 30- 59 Moderately Decreased</content>
<content>Stage IV GFR 15-29 Severely Decreased</content>
<content>Stage V GFR <15 Very Little GFR Left</content>
<content>ESRD GFR <15 on [employer]</content>
<content></content> Creatinine For GFR 1.09 mg/dL 0.70-1.30 Normal (applies to non -numeric results) [facility] ([facility], ) Blood Urea Nitrogen 15 mg/dL 7-18 Normal (applies to non-nume pako results) [facility] ([facility], ) Chloride Level 104 meq/L 98-107 Normal (applies to non-numeric r esults) [facility] ([facility], ) Sodium Level 141 meq/L 136-145 Normal (applies to non-numeric res ults) [facility] ([facility], ) Potassium Serum 3.8 meq/L 3.5-5.1 Normal (applies to non-numeric results) [facility] ([facility], ) Anion Gap 10 meq/L 8-16 Normal (applies to non-numeric resul ts) [place], ) Carbon Dioxide Level 27 meq/L 21-32 Normal (applies to non-num emilia results) [facility] ([facility], ) Calcium Level 9.2 mg/dL 8.5-10.1 Normal (applies to non-numeric re sults) [facility] ([facility], ) Ast/Sgot 36 U/L 7-37 Normal (applies to non-numeric resul ts) [facility] ([facility], ) Alt/SGPT 61 U/L 12-78 Normal (applies to non-numeric resul ts) [place], ) Alkaline Phosphatase 116 U/L 45-117 Normal (applies to non-num emilia results) [facility], ) Total Protein 7.4 GM/DL 6.4-8.2 Normal (applies to non-numeric re sults) [place], ) Bilirubin,Total 0.9 mg/dL 0.2-1.0 Normal (applies to non-numeric results) [facility] ([facility], ) Albumin 4.1 GM/DL 3.2-5.2 Normal (applies to non-numeric resul ts) [facility] ([facility], ) Albumin/Globulin Ratio 1.2 Normal (applies to non-n umeric results) [facility] ([facility]) ID Date Data Source [id number] 03/24/2020 09:18:31 AM EDT [facility] IR LUMBAR PUNCTUREFINAL RESULTInterprete d by:Shavon [...] rce(s) Supporting Document(s) ID Date Data Source [id number] 03/18/2020 04:17:00 PM EDT [facility] Name Value Range Interpretation Code Description Data Agueda rce(s) Supporting Document(s) B-Type Natriuretic Peptide BNP <125 Normal (applies to non-numeric results) [facility] Results of this test should always be us ed in conjunction with the patients medical history, clinical presentation, and other findings. ID Date Data Source [id number] 03/18/2020 04:17:00 PM EDT [facility] Name Value Range Interpretation Code Description Data Agueda rce(s) Supporting Document(s) Sodium 141 mmol/L 136-145 Normal (applies to non-numeric resul ts) [facility] Potassium 3.5-5.1 Normal (applies to non-numeric resul ts) [facility] Chloride 103 mmol/L 98-107 Normal (applies to non-numeric resul ts) [facility] Carbon Dioxide CO2 21-32 Normal (applies to non-numer ic results) [facility] Anion Gap 5.0-16.0 Normal (applies to non-numeric resul ts) [facility] BUN 25 mg/dL 7-18 Above high normal [facility] Creatinine,Serum 0.8-1.5 Normal (applies to non-numeric results) [facility] GFR >60 Normal (applies to non-numeric results) [facility] Glucose Level 131 mg/dL 60-99 Above high normal [facility] Reference range is only applicable when patient is fasting Note the following drug interference: Sulfasalazine Sulfapyridine Can see falsely depressed Can see falsely elevated result with up to 17% results with up to 11% decrease in measurement increase in measurement Recommend patients be collected for this test prior to administration of either drug. Calcium 8.5-10.1 Normal (applies to non-numeric resul ts) [facility] ID Date Data Source [id number] 03/17/2020 01:38:20 PM EDT [facility] Name Value Range Interpretation Code Description Data Agueda rce(s) Supporting Document(s) Progress Note [facility] [id number] lbm [file] [id number] ID Date Data Source [id number] 03/17/2020 01:36:18 PM EDT [facility] Name Value Range Interpretation Code Description Data Agueda rce(s) Supporting Document(s) Color of Cerebral spinal fluid [facility] Clarity of Cerebral spinal fluid [facility] Tube 4 Erythrocytes [#/volume] in Cerebral spinal fluid by Manual count <2 [facility] Nucleated cells [#/volume] in Cerebral spinal fluid by Manual count <5 [facility] Microscopic observation [Identifier] in Cerebral spinal fluid [facility] Cell count and Differential panel - Cerebral spinal fluid [facility] ID Date Data Source [id number] 03/17/2020 01:56:19 PM [facility] Value Range Interpretation Code Description Data Agueda rce(s) Supporting Document(s) Glucose [Mass/volume] in Cerebral spinal fluid 88 mg/dL 40-70 H [facility] ID Date Data Source [id number] 03/17/2020 01:56:19 PM [facility] Value Range Interpretation Code Description Data Agueda rce(s) Supporting Document(s) Protein [Mass/volume] in Cerebral spinal fluid 69 mg/dl 15-45 H [facility] ID Date Data Source [id number] 03/17/2020 11:33:16 AM [facility] Value Range Interpretation Code Description Data Agueda rce(s) Supporting Document(s) Prothrombin time (PT) 12.0 s 12.5-14.9 L [facility] INR in Platelet poor plasma by Coagulation assay 0.88 [facility] Routine intensity oral anticoagulation I NR is typically 2.0-3.0. Target INR must be clinically individualized. ID Date Data Source [id number] 03/17/2020 11:33:16 AM [facility] Value Range Interpretation Code Description Data Agueda rce(s) Supporting Document(s) aPTT in Platelet poor plasma by Coagulation assay 25.2 s 24.0-33. 0 [facility] ID Date Data Source [id number] 03/17/2020 11:37:45 AM [facility] Value Range Interpretation Code Description Data Agueda rce(s) Supporting Document(s) Bicarbonate [Moles/volume] in Serum 26 mmol/L 22-29 [facility] Chloride [Moles/volume] in Serum or Plasma 98 mmol/L 98-107 [facility] Creatinine [Mass/volume] in Serum or Plasma 1.08 mg/dL 0.70-1.20 [facility] Glucose [Mass/volume] in Serum or Plasma 110 mg/dL 70-140 [facility] Potassium [Moles/volume] in Serum or Plasma 4.7 mmol/L 3.4-5.1 [facility] Hemolyzed Sodium [Moles/volume] in Serum or Plasma 138 mmol/L 136-145 [facility] Urea nitrogen [Mass/volume] in Serum or Plasma 19 mg/dL 6-20 [facility] Anion gap 3 in Serum or Plasma 14 mmol/L 8-15 [facility] Osmolality of Serum or Plasma by calculation 289 mosm/kg 275-300 [facility] Creatinine/Urea nitrogen [Mass Ratio] in Serum or Plasma 18 [facility] Calcium [Mass/volume] in Serum or Plasma 9.0 mg/dL 8.6-10.0 [facility] Glomerular filtration rate/1.73 sq M pre dicted among non-blacks [Volume Rate/Area] in Serum or Plasma by Creatinine-based formula (MDRD) 82 mL/min/1.73m2 >60 [facility] Glomerular filtration rate/1.73 sq M pre dicted among blacks [Volume Rate/Area] in Serum or Plasma by Creatinine-based formula (MDRD) >60 [facility] ID Date Data Source [id number] 03/17/2020 12:15:55 PM EDT [facility] Name Value Range Interpretation Code Description Data Agueda rce(s) Supporting Document(s) Leukocytes [#/volume] in Blood by Automated count 10.6 10*3/uL 4-10 H [facility] Erythrocytes [#/volume] in Blood by Automated count 4.93 10*6/uL 4.6- 6.1 [facility] Hemoglobin [Mass/volume] in Blood 14.4 g/dL 13.5-18 [facility] Hematocrit [Volume Fraction] of Blood by Automated count 42.2 % 4 1-53 [facility] Erythrocyte mean corpuscular volume [Entitic volume] by Auto mated count 85.5 fL 80-96 [facility] Erythrocyte mean corpuscular hemoglobin [Entitic mass] by Automated count 29.1 pg 27-33 [facility] Erythrocyte mean corpuscular hemoglobin concentration [Mass/volume] by Autom[facility] 34.0 [facility] width [Ratio] by Automated count 16.6 % 11.5-14.5 H [facility] Platelets [#/volume] in Blood by Automated count 278 10*3/uL 150-400 [facility] Differential cell count method - Blood [facility] Neutrophils/100 leukocytes in Blood by Automated count 82 % [facility] Lymphocytes/100 leukocytes in Blood by Automated count 15 % [facility] Monocytes/100 leukocytes in Blood by Automated count 2 % [facility] Neutrophils [#/volume] in Blood by Automated count 8.71 10*3/uL 1.8-7 .0 H [facility] Lymphocytes [#/volume] in Blood by Automated count 1.59 10*3/uL 1.2-4 .0 [facility] Monocytes [#/volume] in Blood by Automated count 0.20 10*3/uL 0-0.8 [facility] Metamyelocytes/100 leukocytes in Blood by Manual count 1 % [facility] Metamyelocytes [#/volume] in Blood by Manual count 0.10 10*3/uL 0-0 H [facility] ID Date Data Source [id number] 03/14/2020 08:09:28 AM EDT [facility] Name Value Range Interpretation Code Description Data Agueda rce(s) Supporting Document(s) Specimen source [Identifier] of Unspecified specimen [facility] SARS-CoV-2 RNA 2018 nCoV Real-Time RT-PCR: NOT DETECTED [facility] Assay Performed [facility] Initial validation was performed by the Centers for Disease Control and Prevention (CDC) and additionally validated by the Dept. of Pathology [facility]. Negative results do not preclude SARS-CoV-2 infection and should not be used as the sole basis for patient management decisions.Additional information is available on the following FDA websites for health care providers and patients. https://www.fda.gov/media/839145/download, https://www.fda.gov/media/533596/download. Patients first test for [facility] Patient employed in healthcare setting [facility] Patient has symptoms related to [facility] When did you start to experience these symptoms [Date and time] [Phen X] [facility] Patient was hospitalized because of this condition [facility] patient was admitted to ICU for [facility] Patient resides in a congregate care setting [facility] status [facility] ID Date Data Source [id number] 03/13/2020 08:55:00 AM EDT [facility] Name Value Range Interpretation Code Description Data Agueda rce(s) Supporting Document(s) SARS-CoV-2 RNA [facility] This lab was ordered by [facility] and reported by [facility]. ID Date Data Source [id number] 03/13/2020 08:52:31 AM T [facility] Name Value Range Interpretation Code Description Data Agueda rce(s) Supporting Document(s) Progress Note [facility] [id number]aBFCt lbm [file] AgICAgICAgICAgICAgICAgICAgICAgICAgICAgICAg ICAgICAgICAgICAgICAgICAgICAgICAgICAgICAgICAgICAgICAgICAgICAgICAgICAgDQogICAgICAg ICAgICAgICAgICAgICAgICAgICAgICAgICAgICAgICAgICAgICAgICAgICAgICAgICAgICAgICAgICAg ICAgICAgICAgICAgICAgICAgICAgICAgICAgICAgIC AgDQogICAgICAgICAgICAgICAgICAgICAgICAgICAgICAgICAgICAgICAgICAgICAgICAgICAgICAgIC AgICAgICAgICAgICAgICAgICAgICAgICAgICAgICAgICAgICAgICAgICAgDQogICAgICAgICAgICAgIC AgICAgICAgICAgICAgICAgICAgICAgICAgICAgICAg ICAgICAgICAgICAgICAgICAgICAgICAgICAgICAgICAgICAgICAgICAgICAgICAgICAgICAgDQogICAg ICAgICAgICAgICAgICAgICAgICAgICAgICAgICAgICAgICAgICAgICAgICAgICAgICAgICAgICAgICAg ICAgICAgICAgICAgICAgICAgICAgICAgICAgICAgIC AgICAgDQogICAgICAgICAgICAgICAgICAgICAgICAgICAgICAgICAgICAgICAgICAgICAgICAgICAgIC AgICAgICAgICAgICAgICAgICAgICAgICAgICAgICAgICAgICAgICAgICAgICAgDQogICAgICAgICAgIC AgICAgICAgICAgICAgICAgICAgICAgICAgICAgICAg ICAgICAgICAgICAgICAgICAgICAgICAgICAgICAgICAgICAgICAgICAgICAgICAgICAgICAgICAgDQog ICAgICAgICAgICAgICAgICAgICAgICAgICAgICAgICAgICAgICAgICAgICAgICAgICAgICAgICAgICAg ICAgICAgICAgICAgICAgICAgICAgICAgICAgICAgIC AgICAgICAgDQogICAgICAgICAgICAgICAgICAgICAgICAgICAgICAgICAgICAgICAgICAgICAgICAgIC AgICAgICAgICAgICAgICAgICAgICAgICAgICAgICAgICAgICAgICAgICAgICAgICAgDQogICAgICAgIC AgICAgICAgICAgICAgICAgICAgICAgICAgICAgICAg ICAgICAgICAgICAgICAgICAgICAgICAgICAgICAgICAgICAgICAgICAgICAgICAgICAgICAgICAgICAg HDr7M2kdHDBnIOSxLT5nSDr1Bl9+XMsRIgRdBTC9ngKmpP4HSR1hc6AxQBvmTCYhw0TdSGh3DF9NTWPo MTtwNO2OVKsfhj9SLXNaFTBrhKZXa8rfItUtGEZ8RB RgLbtbEF0QSVElG8xqolDaLLOiYVRISY5JEkDnB0IbeG83EWIMCu0+AYmpfuAiAlvVJvF0BQZhn6HbII f3GM2AOWWaRwcmz5UjYhExFEHRMNceOO1UKMI7PBMpWQUpVl6BJGJgH318lnSdUD3LRa2THcHcEN8gpk 8IInRsTDQaVytNBak8KVtpWV1ReUBgXRcMdl7jqgZb muNUe0EfjlGmtBQRxTjwJDcfP8IrZAbrDb7uVIBrXCOhBp7bRKPcIJS8OmTnDSOHOK1QRCPtMKEgvIJc MXDyNUJTUA7WUHapZTM1PHZpicObbWAjKWsgFK1BYZBxtcYwJFpqPCCIQCv+Ig4FFY4he2DcOYkaCPYj QH4xag3DMKiPBjLlX7Y1wVUkD0J8XWlnAe1KZFGkHH VjKRovBYJPRGweFW7VBQ2vvtO4YP7AqQUwTPSrDCKfyJJjMDv0J17ndLOiOKukHL7EEEN+Alban+Pg0KIC OuIBGgPYQtAkVfEGBLOfPuQ5WeF0KPy8BqF2GnOL45dYdwpnCoVVruZG5EBK4oSSDfOGYRCV4QeEDvcD 5xufWjPOGkXNCVGoJwU97tqCGbCMQhRIQ9WFMmSt7R QQThY7HzjvPjpHanirUaEBWoRAETCI6ZCVdqkyMyyHRlnEgtXN32fEfkJP6MSz1KRzFpIM7nvp9ByJUe Oq3XGTFqCi1XRSRxQJSzBQUoMHA9ASGaJqGtBQrdXUGgWOWaSKA6YYLwONHfHK5BYuHyDWXnILfdEkWy IZVnYCWrre1HIJFuQFTcBMi3LWEoINHoBHAsXQnvTX AjUVEdXLZ2MSSkITDqCR8LMoWmZJPbQYM0YHwkJNVuTMAgik5TPSMxECZeInHuKxEaNPQnUJWeACuqJR HxDCIkXQIwLPKaAXZxTR0NJyVlOUEvDOPpODszPYOsLQExyo0TKRWaXKBuHpJdQfBnIUPmMWWyNJrwGR JdKSR2LTk0PJIxQUUvRM6OYtWwSRBlHSJ0NGemMQMv JHWdcq6MQHXaHFMaASj2IKArFOKfTAHmKOkrZGSxPIF6BlM7PVSgZZVjQI2UIlYzKDUuENO0TECxFCHa NYHrrp8NGWOzPPUnHsh4NVMiSYFnWEHvPYjnLPWjTQD9NQM7MBWxDADxCQ6RRlZoNSCsXMqsBJQzKJCf EHAzwt1PEFKoMPQeTbD6TMZsWIDkJXKrCZphTBYoDZ W5ZHh7QLTwKXUyKS9GNzHjRLHxPOacGTlnZFZeVUYjbd6KOUMyCDKtZRWaZRWwBMDzJLNePLt7gaRiiO YoLGn7TK1IN4AgumLcRlKFWc4Fe294KEFcHYDpVh6UV3xrXn0sGAHhAUHRIv9KBZz4RAQnWFMiJFdwPW H4S5BgILC7F4DgVXRrIUy0QWqmRkK+IDxlNDFhYTA5 RAG7WHVkWMS2BPRpAMV0LSB0PLTmEFLvEg6yQSLDWv0+CGkceKSefBqvAOKDDkR6FHN8UHzyNPCHEa3O ID Date Data Source [id number] 03/11/2020 04:42:38 PM EDT [facility] Name Value Range Interpretation Code Description Data Agueda rce(s) Supporting Document(s) Progress Note [facility] LKGKPb0nXsXQIoGc94/PYSyhNWHdr9ZcPPhfBKm4RVllCBTzH9DeLVU9zZ9xEOU5ACyBEyReOxGbSDUf lbm [file] U7BsT5LiDlWVIsEaqhTpjtZSJ+LV6pDJr+Mj4Dm5TawbI3ytMrWYhfSNG5Dm4MFSEOW0ARAz== ID Date Data Source [id number] 03/03/2020 09:27:17 AM EDT [facility] Name Value Range Interpretation Code Description Data Agueda rce(s) Supporting Document(s) Progress Note [facility] LHWMPt9lYrTDXnAl99/WZBwsDNKem1DiHWsfJWw7ZVjcUQVuK9QbMVG8fM3cXAZ5TNfJYnUjBoFsHYQd lbm [file] NDn0PBraIcZhOjz+UU5hJBq+Fi8Sc9AfphV6btVbIDlaCUckJC8YBADOU1JOZv== ID Date Data Source [id number] 02/10/2020 09:50:44 AM EDT [facility] Name Value Range Interpretation Code Description Data Agueda rce(s) Supporting Document(s) Progress Note [facility] RMGDUr2rUlGWJvWk43/XLOluKDVxd5VhXUkiHTi1GOnoKZZfE1PbUBY2nK6cJAE1ANtYWnLjQjXsMRIo lbm [file] bxGfEpFUoeTY7aCRKZBt5+MXsuwGFoiCwdLDZHQoW2EGM8FYasRFUDLy6C ID Date Data Source [id number] 02/07/2020 10:18:14 AM EDT [facility] Name Value Range Interpretation Code Description Data Agueda rce(s) Supporting Document(s) Progress Note [facility] MYBHWe1oDqCDBwUy06/CYApdYDRdi6IaYUikDZd4TSgzNRJrR4HiHFM4gI7kTNT1ZYtWQuSkFcSlTWL7 lbm WzSavSAtLfINOoEhzPEyGfZOejPwqfjITpAT9EnPJ7DNQxX05pCLByXDNiX9XdUWM2OJW+Vh1CRAIlyZ NbWS8WTiiP6Biut1z1BM0+YP+BwIAhLZKYpCiSMoYBrpMuC+qben7Ps3TQfcfQPdcpu+Mina+fejJMrycS [file] AdVR5BVa4XUnP1BEF2oAXwOj0ZERsbWpQBHyViHU4WSGm= ID Date Data Source [id number] 01/06/2020 09:21:12 AM EDT [facility] Name Value Range Interpretation Code Description Data Agueda rce(s) Supporting Document(s) Progress Note [facility] IPNTUx9hOrNQSzRq79/TALqyBJGwl1BeBYhbRBd4ELpvSIShK5EtPYP9pM9kFCO3TJrBTpBkOfLfYwP8 lbm [file] /pRZprIw3tGansP+bKWKbbGOfFu4V1aGiI1rGLX4dooXRrD1KlzTgfOA0joFj2SQRuzoQxM2EkCU/forensic pathologist K9H7je4VKk4epunmETd21gv46B/sX8XAYFCe3I/AMBP6Jn6c/pTG8Szt129KgovlkyMHPEDlRvYdpIak raXRBDNXA8biokRLpB6NAqAG28Z05nsG+Holloway+Dp+6Av A+87vLgh+IgG8+QMMhcjAB0v8YN2LsRZ2wR/Qf1R/uoz94KwaFrQeBdveL94SAM4wnK2m81SOkuirlRW 51WUnscnI0KmIWlj2oq85UFPcAUaB8KSCdm9X3PxyvM4j0pUlH6ZZnRNpKAH0C/C6VWK91kM25o0Ih3Q kFAsRvclbT3QP9KrjQD0gHq1zppI4ZSn+iF432D+nn jOEw7B5GuZ7ZW4q1l7khSTeyBagMOYIVLpre+NrPeydVdDgDbgb1NPAH5iOYNRKRzfs7IsTupX6Pkezp 9PpSOBP6nyLdFaR0cuSTBM8elQ+GgArsPUpYaaeqI8sLtlyI7ZfeWF2rYb1jRaau70dju0aL7pWLtHor Pj+HLB4/0g2PrwT2VfbYFnZdIysRsI94Htwkcj/Frankie [file] AgICAgICAgICAgICAgICAgICAgICAgICAgICAgICAg ICAgICAgICAgICAgICAgICAgICAgICAgICAgICAgICAgDQogICAgICAgICAgICAgICAgICAgICAgICAg ICAgICAgICAgICAgICAgICAgICAgICAgICAgICAgICAgICAgICAgICAgICAgICAgICAgICAgICAgICAg ICAgICAgICAgICAgICAgDQogICAgICAgICAgICAgIC AgICAgICAgICAgICAgICAgICAgICAgICAgICAgICAgICAgICAgICAgICAgICAgICAgICAgICAgICAgIC AgICAgICAgICAgICAgICAgICAgICAgICAgDQogICAgICAgICAgICAgICAgICAgICAgICAgICAgICAgIC AgICAgICAgICAgICAgICAgICAgICAgICAgICAgICAg ICAgICAgICAgICAgICAgICAgICAgICAgICAgICAgICAgICAgDQogICAgICAgICAgICAgICAgICAgICAg ICAgICAgICAgICAgICAgICAgICAgICAgICAgICAgICAgICAgICAgICAgICAgICAgICAgICAgICAgICAg ICAgICAgICAgICAgICAgICAgDQogICAgICAgICAgIC AgICAgICAgICAgICAgICAgICAgICAgICAgICAgICAgICAgICAgICAgICAgICAgICAgICAgICAgICAgIC AgICAgICAgICAgICAgICAgICAgICAgICAgICAgDQogICAgICAgICAgICAgICAgICAgICAgICAgICAgIC AgICAgICAgICAgICAgICAgICAgICAgICAgICAgICAg ICAgICAgICAgICAgICAgICAgICAgICAgICAgICAgICAgICAgICAgDQogICAgICAgICAgICAgICAgICAg ICAgICAgICAgICAgICAgICAgICAgICAgICAgICAgICAgICAgICAgICAgICAgICAgICAgICAgICAgICAg ICAgICAgICAgICAgICAgICAgICAgDQogICAgICAgIC AgICAgICAgICAgICAgICAgICAgICAgICAgICAgICAgICAgICAgICAgICAgICAgICAgICAgICAgICAgIC AgICAgICAgICAgICAgICAgICAgICAgICAgICAgICAgDQogICAgICAgICAgICAgICAgICAgICAgICAgIC AgICAgICAgICAgICAgICAgICAgICAgICAgICAgICAg ZVVdXNDvFBLbIIBrTYQyABXtCCPzJUVoFKBdRRIhQDHeXJYuKNImXWFnZSa3T8wdKZTdMXKkJJ0ySLz0 Jz8+UEeOBdOoNIC6zlCbhD4RBP3kg1UoMKtaKJGcf5NqPLq5DR8REJEySQwgWZ2AHRuzdm0MYQCtDQYw nFMEf5idUhEgIOL8DHKgNryuMD7JTMLfY3tfmiJkMQ GbOGEPXSozEKJFJBfwNBKYQFAoQCPeAjObVxRwQALgLGOsANCPIDA1CZIeGyBnOQHeLSXaYsEwHXTPUF 1PZkUgE1ThoX27ENiSMw9+ILctemEdVfjBQhW6WLPyk2ScIZa2XT9UHURyGugfg0TcCpasRQEWRYobLQ 5EJHU0QEC6LMDoTc2AQWSfN003bsWcQN6UUt4XCvDp BA7oya7XNgjmLRHzGjnMExu2GYurXW3WxVYeJGlRsb7xgiPmkpHNx8GicjYakTWHGP5fwLDAHQ6yfJTw MLKKIIZgzYN3YzO5BjVxBoLsDWX6UNCkGM9gUSnvNX3ECFE0WPwoTGLjZWTqO2eYKwJrAAYwRCLgmUua VK1UHrZxS1VoibBfnPTcJLBxHKBXJe7+DQplbmRvYm eJFcZcOISkn6OySIm1XA7RDTCrYLapUU5JXGGdlK0yHIrsWP9VGbJbXkQwBJLZYqPcS60ffPLcTYg6U7 VtYmVkZGVkRmlsZXMgPDwvTmFtZXMgWyBdDQogID4+ID4+GLrmPV8IDJfhhqJmIQSnKr4KUTGjQNTmKE 2uKIAyVIXiY3X3wSuwWDJCMrTyC7zrjjbgEV9tJJSx G910mDuktgCuFYD7XWStQp5XAIYfYCV1IWBjfPIrCapvBOSUDRixOS2DsEMcFHC6iG3cYWscFJFcVWOo H6cMEzDuqGjdAY54aUlmtqYymQKhIEc+Hb1NRZ3xg7BjKFb6xqXnZIbvHJQeJJqsNCHsEJYiAUMhQQC4 ATR3IYDGUfAmCVBwBLPmNGeiHREkTXQlsu1ONNYxGL H3JeIsPgNvMBNcBDEtZWcdJAQxQCK2ZZZ5ESBtZSMhOC0IOiBxMBVwOKNwOGqwFMEkCMRgaq3XYAYzIC DjEKopYwNtDRVlQTTxVLuzKRXqGIB3JWOfIQWfOIQpBV4VSpWeAISqGLe5RGErXQZmRAVdzf1CQGRmWT XsEFakEYWuGXFcKJTuCTgpCDFjRDZqVTE7FPQkGLXr AJ4FQwXkPCMjXOKbPzZpFMAxQVCjwx0VGHBpUCPoWVL4GzDnRVDjTUHzVLvzBERvXIQ7HXJ7XFVdZGTt YW5OCgPhUNKaKBs1KUFeODTzLDDbhp6AOUXxDSVhCGE0DeBqIEEzVOCdMCniTPQyUUWxXNn7TXGiRRPn ED2FDuSbMAGpBvVcONCnRPGaBBOlpl5BJNPaFCMiGh P2RhFkJUYaWICgXHzvRWOlBUU0WeofKXWrZINvJT9JWuItWGJnNrZ7QLtqAAHuSAUett4QNQTcHACjAr XkNSQkDYLwUOCuLFwaEOOrZMGiGla6VSDeUJPdAK4GJvNiUBTqLrO8MSPjGNXiPMWxur4FCYHlMEJyPc r6FLRiCOBsNFZtWFujCXPeZLT4DGSeVEVzFEDmLJ4I BfSnRYVpTtQnNmIyMXJiDCAeto7PMFMaUFVxFVD9HMKxWOQoKSHeAGelXMCuJVI8CRt8TUJcTPFcEJ6I RwUlKNXvSqU0LKZaKCHtMTMtta2EAHDuTRC9FvJfXSXhLKOcMMOlGGdzRPByCKPnPLN3QTVsAZLtQM6X WzPrCPQySdBzKTYeWPUiYCPzmh9LATFxBLU4HXa9AM KaUCJpDZInABhhQTGmEJX0IPkrLGQoJIFvAO8OVxCxTNXaFwD8QcRlPIGdVCCkfv0PNXHrCZM3JnPpRo BsKAOmBVAmKEquQWPcOYX5ZkFiKMXpTCPaDZ7WAuUqJZFuZwR6QVurEAJwOEPsve4LVXKdPXG3INTaFG DnZWKnTLAkNWelGGDwCHS2GRrgPRWlSDFaMU5UAtUa NBBrDvraDwdqXSKxTLXkkv6AqNZzrVeykb1DYUsRPk0JlMhfWLRwUZfzNu1wjAI8ZEIhJABLUl6DkjBx MHMqPRHNVGtcMESdSBWqXGE8DNZ8LUGxGKmeMyQtHGrzWgXfBBI6GZHtHls4VpE0PSJpDmH1HityPOH1 CBD8RPUyQTXaTKL5XEvtRTKqHvB+EY3oEWd+Zc4Sx5OzfmR8zgNbTUv3BBI8Go3BYNCUD5HAOq== ID Date Data Source [id number] 11/01/2019 04:51:00 PM EDT [facility] Name Value Range Interpretation Code Description Data Agueda rce(s) Supporting Document(s) Iron FE Level 73 ug/dL 49-181 Normal (applies to non-numeric re sults) [facility] Test Performed By: [facility] [address] [place] [address] Director: Patsy Cardozo MD Total Iron Binding Capacity 343 ug/dL 261-462 Norm al (applies to non-numeric results) [facility] Test Performed By: [facility] [address] [place] [address] Director: Patsy Cardozo MD %Iron Saturation 12.0-55.0 Normal (applies to non-numeric results) [facility] Test Performed By: [facility] [address] [place] [address] Director: Patsy Cardozo MD ID Date Data Source [id number] 11/01/2019 04:51:00 PM EDT [facility] Value Range Interpretation Code Description Data Agueda rce(s) Supporting Document(s) Ferritin 113 ng/mL 17.9-464.0 Normal (applies to non-numeric resul ts) [facility] Test Performed By: [facility] [address] [place] [address] Director: Patsy Cardozo MD ID Date Data Source [id number] 11/01/2019 01:30:00 PM EDT [facility] Name Value Range Interpretation Code Description Data Agueda rce(s) Supporting Document(s) Bilirubin,Total 0.1-1.9 Normal (applies to non-numeric results) [facility] Bilirubin,Direct 0.05-0.20 Normal (applies to non-numeric results) [facility] SGOT(AST) 32 U/L 15-37 Normal (applies to non-numeric resul ts) [facility] Note the following drug interference: Sulfasalazine Sulfapyridine Can see falsely depressed Can see falsely elevated result with up to 10% results with up to 10% decrease in measurement increase in measurement Recommend patients be collected for this test prior to administration of either drug. SGPT(ALT) 89 U/L 12-78 Above high normal [facility] Note the following drug interference: Sulfasalazine Sulfapyridine Can see falsely depressed Can see falsely elevated result with up to 29% results with up to 10% decrease in measurement increase in measurement Recommend patients be collected for this test prior to administration of either drug. Alkaline Phosphatase 105 U/L 38-126 Normal (applies to non-num emilia results) [facility] can increase Alkaline Phosp le vels up to 2 times the normal adult value. Normal values for children and adolescents are 2 to 3 times the normal adult value. Total Protein 6.0-8.2 Normal (applies to non-numeric re sults) [facility] Albumin Level 3.4-5.0 Normal (applies to non-numeric re sults) [facility] ID Date Data Source [id number] 11/08/2019 12:06:00 PM EDT [facility] Name Value Range Interpretation Code Description Data Agueda rce(s) Supporting Document(s) Hepatitis A Ab,IgG result () Normal (applies to no n-numeric results) [facility] Hepatitis A IgG Ab, S was cancelled on 0 11/08/2019 at 09:27; Unable to perform. No refrigerated specimen to use for Add on Test Performed by: [address] [address] [employer] Chemist: Noe Williamson M.D. Ph.D.; CLIA# [id number] ID Date Data Source [id number] 11/09/2019 09:36:00 AM EDT [facility] Name Value Range Interpretation Code Description Data Agueda rce(s) Supporting Document(s) Hepatitis B Core Tot Ab,S res Negative No rmal (applies to non-numeric results) [facility] Test Performed by: [place] [address] [employer] Chemist: Noe Williamson M.D. Ph.D.; CLIA# [id number] ID Date Data Source [id number] 11/08/2019 11:32:00 AM EDT [facility] Name Value Range Interpretation Code Description Data Agueda rce(s) Supporting Document(s) Hepatitis B Core Tot Ab,S res Negative No rmal (applies to non-numeric results) [facility] Test Performed by: [place] [address] [employer] Development Chemist: Noe Williamson M.D. Ph.D.; CLIA# [id number] ID Date Data Source [id number] 11/08/2019 11:32:00 AM EDT [facility] Value Range Interpretation Code Description Data Agueda rce(s) Supporting Document(s) Hepatitis A Ab,IgG result () Normal (applies to no n-numeric results) [facility] Hepatitis A IgG Ab, S was cancelled on 0 11/08/2019 at 09:27; Unable to perform. No refrigerated specimen to use for Add on Test Performed by: [place] [address] Product Development Chemist: Noe Williamson M.D. Ph.D.; CLIA# [id number] ID Date Data Source [id number] 11/01/2019 06:33:00 PM EDT [facility] Name Value Range Interpretation Code Description Data Agueda rce(s) Supporting Document(s) FESAT Iron result 73 ug/dL 49-181 Normal (applies to non-numeri c results) [facility] Test Performed By: [facility] [address] [place] [address] Director: Patsy Cardozo MD FESAT TIBC result 343 ug/dL 261-462 Normal (applies to non-numeri c results) [facility] Test Performed By: [facility] [address] [place] [address] Director: Patsy Cardozo MD FESAT %Iron Saturation result 12.0-55.0 No rmal (applies to non-numeric results) [facility] Test Performed By: [facility] [address] [place] [address] Director: Patsy Cardozo MD ID Date Data Source [id number] 11/01/2019 06:33:00 PM EDT [facility] Value Range Interpretation Code Description Data Agueda rce(s) Supporting Document(s) Ferritin result 113 ng/mL 17.9-464.0 Normal (applies to non-numeric results) [facility] Test Performed By: [facility] [address] [place] [address] Director: Patsy Cardozo MD ID Date Data Source [id number] 11/01/2019 06:33:00 PM EDT [facility] Value Range Interpretation Code Description Data Agueda rce(s) Supporting Document(s) Hepatitis C Virus Ab result Nonreactive Norm al (applies to non-numeric results) [facility] Test Performed By: [facility] [address] [place] [address] Director: Patsy Cardozo MD ID Date Data Source [id number] 11/01/2019 06:33:00 PM EDT [facility] Value Range Interpretation Code Description Data Agueda rce(s) Supporting Document(s) Hep Bs Ag result T-Test Nonreactive Normal (applies to non -numeric results) [facility] Test Performed By: [facility] [address] [place] [address] Director: Patsy Cardozo MD ID Date Data Source [id number] 11/01/2019 06:33:00 PM EDT [facility] Value Range Interpretation Code Description Data Agueda rce(s) Supporting Document(s) Hepatitis B Surface Ab result Normal (applies t o non-numeric results) [facility] Test Performed By: [facility] [address] [place] [address] Director: Patsy Cardozo MD Reference Value Protected Immunity: Reactive Non-Immunity : Nonreactive ID Date Data Source [id number] 11/01/2019 05:49:00 PM EDT [facility] Name Value Range Interpretation Code Description Data Agueda rce(s) Supporting Document(s) Hep C Ab-T Test Nonreactive Normal (applies to non-numeric results) [facility] Test Performed By: [facility] [address] [place] [address] Director: Patsy Cardozo MD ID Date Data Source [id number] 11/01/2019 05:49:00 PM EDT [facility] Name Value Range Interpretation Code Description Data Agueda rce(s) Supporting Document(s) Hep Bs Ag Result T-Test Nonreactive Normal (applies to non -numeric results) [facility] Test Performed By: [facility] [address] [place] [address] Director: Patsy Cardozo MD ID Date Data Source [id number] 11/01/2019 05:49:00 PM EDT [facility] Name Value Range Interpretation Code Description Data Agueda rce(s) Supporting Document(s) Hep Bs Ab Numeric result Normal (applies to non -numeric results) [facility] Reference Value Protected Immunity: >10 mIU/mL Non-Immunity : <10 mIU/mL Hep Bs Ab result T-Test Normal (applies to non- numeric results) [facility] Test Performed By: [facility] [address] [place] [address] Director: Patsy Cardozo MD Reference Value Protected Immunity: Reactive Non-Immunity : Nonreactive ID Date Data Source [id number] 10/07/2019 12:20:00 PM EDT [facility] ([facility] ) Name Value Range Interpretation Code Description Data Agueda rce(s) Supporting Document(s) ABG pH (Arterial) 7.395 units 7.350-7.450 Normal (applie s to non-numeric results) [facility] ([facility], ) ABG Partial Pressure Co2 35.0 mmHg 35.0-45.0 Normal (applies to non-numeric results) [facility] ([facility]) ABG Partial Pressure O2 73.8 mmHg 75.0-100.0 Below low normal [facility] ([facility]) ABG Hco3 21.0 meq/L 22.0-26.0 Below low normal [facility] ( [facility]) ABG Base Excess -3.2 Below low normal [facility] ([facility]) ABG Total Co2 22.0 meq/L 22.0-29.0 Normal (applies to non-numeric re sults) [facility] ([facility]) ABG Standard Hco3 21.7 meq/L 22.0-26.0 Below low normal [facility] ([facility]) ABG O2 Saturation 94.4 % 95.0-99.0 Below low normal [facility] ([facility]) ID Date Data Source [id number] 10/09/2019 02:16:00 PM EDT [facility] Hematopathology Report See Addendum [facility] wName: JHON PATEMRN: [id number] Number: [id number] Date: 10/07/2019 10:30Received Date: 10/08/2019 14:35Physician(s): JOHNNA [...] 10/14/2019 ADDENDUM:Cytogenetic analysis of this specimen (see [id number]) yielded the followingresult:Karyotype: 46,XY[20] (normal male karyotype). Addendum Electronically Signed By: Mateo Atkins M.D., Ph.D. 10/14/2019 16:41 ProceduresFlow Cytometry Date Ordered:10/08/2019 Status: Signed Out10/09/2019 InterpretationPERIPHERAL BLOOD: CBC performed at [facility] on 10/07/19.WBC 7.1 K/uLRBC 4.92 M/uLHgb 14.2 g/dLHct 42.7 %MCV 86.8 fLMCH 28.9 pgMCHC 33.3 g/dLRDW 13.8 %Platelets 272 K/uLDifferential Count (100 cells):35 % Neutrophils 6 % Eosinophils 1 % Acznzbcui54 % Lymphocytes 3 % Monocytes-------100 % A peripheral blood film is reviewed. BONE MARROW ASPIRATE:Differential Count (100 cells):38 % Erythroid Precursors 2 % Blasts 1 % Promyelocytes 7 % N. Ihuzggeskj29 % N. Metamyelocytes and Band Forms27 % Neutrophils 1 % Twuqgnusobv59 % Lymphocytes 2 % Monocytes--------100 % Lymphoid Panel: The following markers were assayed: CD45 (gate), CD2, CD3, CD4, CD5, CD7,CD8, CD10, CD19, CD20,CD33, CD34, CD38, CD56, CD57, CD64, CD117, CD123, HLA-DR, Montmoren[place], andLambda.# events: [id number]: 97%Flow Cytometry Dif ferential (CD45/SSC)Lymphocyte Krum: 10%CD45 dim Krum: 2%Monocyte Krum: 2%Granulocyte Krum: 74%Nucleated/Erythroid Krum: 7%The lymphocyte gate showsB- cells (CD19): 7%T-cells (CD3): 88%NK-cells (CD3-/CD56+): 3%[place]/Lambda Ratio: 1.3CD4/CD8 Ratio: 0.9Results: (expressed as % of lymphocyte gate)T-cell Markers: CD2 = 89, CD3 = 88, CD3/CD4 = 41, CD3/CD8 = 45, CD5 = 86,CD7 = 83, CD3/57 = 15B-cell markers: [place] = 4, Lambda = 2, CD19 = 6, CD20 = 11, CD19/10 = 2,CD19/CD5 = 1, CD38/CD20 = 7Light chain as % of B-Cells: CD19/[place] = 46, CD19/Lambda = 30,CD19/CD5/Montmorenci = 6, CD19/CD5/Lambda = 1CD19/CD10/Montmorenci = 11, CD19/CD10/Lambda = 10NK cell Markers: CD56 = 6, CD57 = 13Other Markers: CD10 = 3, CD38 = 44Results: (expressed as % of CD45 dim gate)T-cell Markers: CD2 = 39, CD3 = 31, CD3/CD4 = 17, CD3/CD8 = 18, CD5 = 3,CD7 = 37, CD3/57 = 9B-cell markers: Montmorenci = 5, Lambda = 1, CD19 = 51, CD20 = 9, CD19/10 = 56,CD19/CD5 = 0, CD38/CD20 = 9Light chain as % of B-Cells: CD19/Montmorenci = 4, CD19/Lambda = 1,CD19/CD10/Montmorenci = 5, CD19/CD10/Lambda = 1NK cell Markers: CD56 = 3, CD57 = 12Basophil Markers: CD123 (HLA-DR-) = 3Other Markers: CD10 = 61, CD38 = 96, CD33 = 25, CD34 = 42, CD64 = 6, CD117= 14, CD123 = 33, HLA-DR = 83Myeloma Panel The following markers were assayed: CD45 (cell gate), CD138 (plasma cellgate), CD19, CD20, CD38, CD56, cytoplasmic Montmorenci, and cytoplasmic Lambda.(Please note, that Cytoplasmic Montmorenci and Cytoplasmic Lambda are used todetect plasma cells, while surface Montmorenci and Lambda are for lymphocytes).# events: [id number]: Routinely a minimum of 500,000 events are collected in each paneltube. Due to sample cellularity and/or processing this number was notachievable for this sample.Flow Cytometry Differential:Lymphocyte Krum: 12%CD45 dim Krum: 1%Monocyte Krum: 6%Granulocyte Krum: 66%NRBC Krum: 8%CD138 Plasma Cell Krum: 0%Results: (expressed as % of total CD138+ plasma cell gate)CD38 = 82, CD56 = 4, CD38/56 = 4, CD19 = 34, CD20 = 1Cytoplasmic Montmorenci/CD138 = 45, Cytoplasmic Lambda/CD138 = [id number]-CabnpnoiMecpmulhzny consist predominantly of T cells with normal [...] were developed and theirperformance characteristics determined by [facility] Pathology department.They have not been cleared or approved by the [place] Food and DrugAdministration. The FDA has determined that such clearance or approval isnot necessary. Name Value Range Interpretation Code Description Data Agueda rce(s) Supporting Document(s) ID Date Data Source [id number] 10/09/2019 10:48:49 AM EDT [facility] Name Value Range Interpretation Code Description Data [facility] rce(s) Supporting Document(s) Flow cytometry study [facility] ID Date Data Source [id number] 10/11/2019 11:51:00 AM [facility] Cytogenetics ReportName: [place] PATEMRN: [id number] Number: [id number] Date: 10/07/2019 00:00Received Date: 10/08/2019 14:29Physician(s): JOHNNA GIL MD ADJAPONG, OPOKU,PHANpecimen(s) ReceivedA: Bone Marrow - Karyotype analysis and FISHClinical [id number] 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 Assess for clonalplasma cells or a paraprotein.TEST REQUESTED/PERFORMED: Karyotype Analysis and Fluorescence in situhybridization - FISH DiagnosisCYTOGENETIC RESULTS: 46,XY[20]INTERPRETATION: A normal male karyotype was observed in twenty metaphases analyzed. Withinthe limits of the resolution of this karyotype analysis, no structuraland/ or numerical chromosome aberration was detected. The FISH study wascanceled by Dr. Ambrose Mathis. Please correlate with concurrent Hematopathologyreport ([id number]).Electronically Signed By Lupe Mcadams, Ph.D., [facility], Director ofCytogenetics 10/11/2019 11:51:24Gross DescriptionDATA: SPECIMEN TYPE: BONE MARROW CULTURE TYPE: 24 HOUR UNSTIMULATED METAPHASES COUNTED AND ANALYZED: 20 METAPHASES KARYOTYPED: 2BAND RESOLUTION: [id number] Nomenclature: 46,XY[20] Name Value Range Interpretation Code Description Data Agueda rce(s) Supporting Document(s) ID Date Data Source [id number] 09/11/2019 04:20:00 PM EDT [facility] Name: JHON PATE [facility] Rec #: [id number] : 1975 Age/Sex: 44M Date of Service: [...] He is [facility] in [facility]. He is also being worked up by [...] he/she has never smoked tobacco. Preferred Language: Italian. ROS: 17:27 Constitutional: See HPI. Cardiovascular: See [...] 35.73 (106.59 k g, 172.72 cm) md1 Simpson Coma Score: 17:28 Eye Response: spontaneous(4). Verbal [...] panel is reassuring, I will tested for [place] at 19 and discharge him on self-isolation. [...] 7.6; HGB 15.9; HCT 45.9; PLT 323. [facility] 09/10 16:47 Order name: Comprehensive Metabolic Prof.; Complete Time: cpg 18:05 09/10 18:05 Interpretation: NA 136; K 3.8; CL 103; CO2 27.0; BUN 18; cpg GAP 6.0; CREAT 1.07; GLU 105. 09/10 16:47 Order name: D-Dimer; Complete Time: 18:03 [facility] 09/10 18:03 Interpretation: D-Dimer Quant 326. [facility] 09/10 16:47 Order name: Lipase; Complete Time: 18:05 [facility] [place] 09/10 18:05 Interpretation: LIP 91. [facility] 09/10 16:47 Order name: MG (Magnesium); Complete Time: 18:05 [facility] 09/10 18:05 Interpretation: MG 2.10. cpg 09/10 16:47 Order name: Partial Thromboplastin Time; Complete Time: cpg 18:03 09/10 18:03 Interpretation: PTT 32.4. cpg 09/10 16:47 Order name: Prothrombin Time; Complete Time: 18:03 [facility] [place] 09/10 18:03 Interpretation: INR 1.04; PT 11.9. cpg 09/10 16:47 Order name: Troponin I; Complete Time: 18:03 [facility] 09/10 18:03 Interpretation: TROP I < 0.045. [...] 16:47 Order name: Respiratory Panel (Use Workup) [facility] [place] 09/10 17:18 Order name: Lactic Acid; Complete Time: 18:00 [facility] 09/10 18:00 Interpretation: Lactic 1.4. [facility] [place] 09/10 17:18 Order name: VBG; Complete Time: 18:00 [facility] 09/10 18:00 Interpretation: VBG PH 7.40; VBG PCO2 43; VBG PO2 47; VBG cpg HCO3 26.6. 09/10 17:18 Order name: Blood Culture - Venous [facility] [place] 09/10 16:47 Order name: CXR Portable (Chest Pain) [facility] [place] 09/10 16:47 Order name: Emergency Room EKG Order - Use EKG Work-Up cpg /Quick Select; Complete Time: 17:11 09/10 16:47 Order name: Cardiology EKG Interpretation - Choose Reason cpg for Test 09/10 16:47 Order name: Iv Saline Lock; Complete Time: 17:11 [facility] [place] 09/10 16:47 Order name: Place Patient On Monitor; Complete Time: 17:11 [facility] 09/10 16:47 Order name: Collect nasal swab; Complete Time: 17:11 [facility] 09/10 17:18 Order name: Oxygen - 2L Nasal Cannula; Complete Time: 17:27 cpg Dispensed Medications: 17:16 Drug: Aspirin 324 mg [aspirin 81 mg chewable tablet (4 alc tabs)] Route: PO; 18:15 Follow up: Response: No adverse reaction [facility] 17:23 Drug: Magnesium Sulfate 2 grams [magnesium sulfate 2 alc gram/50 mL (4 %) in water intravenous piggyback] Route: IVPB; Site: right antecubital; 18:14 Follow up: IV Status: Completed infusion; IV Intake: 100ml [facility] 18:03 Drug: Ventolin 8 puffs [...] case. Signatures: Dispatcher [employer] EDMagdalena Gama, SATINDER SENIOR CONTROLLER Rosasna Ndiaye MD MD jtv Bond, Jarrett RN RN jb7 Maris Dowling RN RN md1 Blanca Ardon RN RN alc Name Value Range Interpretation Code Description Data Agueda rce(s) Supporting Document(s) ID Date Data Source [id number] 09/11/2019 04:20:00 PM EDT [facility] Name: JHON PATE [facility] Rec #: [id number] : 1975 Age/Sex: 44M Date of Service: [...] he/she has never smoked tobacco. Preferred Language: Italian. Screenin:29 AUDIT 1. How often do you [...] Index 35.73 (106.59 kg, 172.72 cm) md1 Simpson Coma Score: 17:28 Eye Response: spontaneous(4). Verbal [...] Second set of blood cultures drawn by [place] Urine collected. Clean catch specimen. An EKG was obtained and reviewed by Magdalena Turner SENIOR CONTROLLER. Inserted saline lock: 20 gauge in right [...] rce(s) Supporting Document(s) ID Date Data Source [id number] 09/20/2019 01:12:00 PM EDT [facility] Name Value Range Interpretation Code Description Data Agueda rce(s) Supporting Document(s) Total Protein 6.3 - 7.9 Normal (applies to non-numeric re sults) [facility] Albumin 3.4-4.7 Normal (applies to non-numeric results) [facility] Alpha-1 Globulin 0.1-0.3 Normal (applies to non-numeric results) [facility] Alpha-2 Globulin 0.6-1.0 Normal (applies to non-numeric results) [facility] Beta-Globulin 0.7-1.2 Very abnormal (applies to non-num emilia units [facility] Gamma-Globulin 0.6-1.6 Normal (applies to non-numeric r esults) [facility] A/G Ratio Normal (applies to non-numeric results) [facility] Impression Normal (applies to non-numeric results) [facility] No apparent monoclonal protein on serum electrophoresis. See Immunofixation. Immunofixation Normal (applies to non-numeric r esults) [facility] RESULT: No monoclonal protein detected. Test Performed by: [place] [address] Product Development Chemist: Noe Williamson M.D. Ph.D.; CLIA# [id number] ID Date Data Source [id number] 09/20/2019 12:41:00 PM EDT [facility] Name Value Range Interpretation Code Description Data Agueda rce(s) Supporting Document(s) Total Protein 6.3 - 7.9 Normal (applies to non-numeric re sults) [facility] Albumin 3.4-4.7 Normal (applies to non-numeric resul ts) [facility] Alpha-1 Globulin 0.1-0.3 Normal (applies to non-numeric results) [facility] Alpha-2 Globulin 0.6-1.0 Normal (applies to non-numeric results) [facility] Beta-Globulin 0.7-1.2 [facility] Gamma-Globulin 0.6-1.6 Normal (applies to non-numeric r esults) [facility] A/G Ratio Normal (applies to non-numeric results) [facility] Impression Normal (applies to non-numeric resul ts) [facility] No apparent monoclonal protein on serum electrophoresis. See Immunofixation. Immunofixation Normal (applies to non-numeric r esults) [facility] RESULT: No monoclonal protein detected. Test Performed by: [place] [address] Product Development Chemist: Noe Williamson M.D. Ph.D.; CLIA# [id number] ID Date Data Source [id number] 09/17/2019 05:52:00 PM EDT [facility] Name Value Range Interpretation Code Description Data Agueda rce(s) Supporting Document(s) Hemoglobin A1c 4.4-6.2 Above high normal [facility] Estimated Avg Glucose 140 mg/dL 126-240 Normal (applies to non-numeric results) [facility] ID Date Data Source [id number] 09/17/2019 05:52:00 PM EDT [facility] Name Value Range Interpretation Code Description Data Agueda rce(s) Supporting Document(s) Vitamin D, Total 30.0-100.0 Below low normal [facility] ID Date Data Source [id number] 09/17/2019 05:52:00 PM EDT [facility] Name Value Range Interpretation Code Description Data Agueda rce(s) Supporting Document(s) Sodium 140 mmol/L 136-145 Normal (applies to non-numeric resul ts) [facility] Potassium 3.5-5.1 Normal (applies to non-numeric resul ts) [facility] Chloride 100 mmol/L 98-107 Normal (applies to non-numeric resul ts) [facility] Carbon Dioxide CO2 21-32 Normal (applies to non-numer ic results) [facility] Anion Gap 5.0-16.0 Normal (applies to non-numeric resul ts) [facility] BUN 17 mg/dL 7-18 Normal (applies to non-numeric results) [facility] Creatinine,Serum 0.8-1.5 Normal (applies to non-numeric results) [facility] GFR >60 Normal (applies to non-numeric results) [facility] Glucose Level 84 mg/dL 60-99 Normal (applies to non-numeric re sults) [facility] Reference range is only applicable when patient is fasting Note the following drug interference: Sulfasalazine Sulfapyridine Can see falsely depressed Can see falsely elevated result with up to 17% results with up to 11% decrease in measurement increase in measurement Recommend patients be collected for this test prior to administration of either drug. Calcium 8.5-10.1 Normal (applies to non-numeric resul ts) [facility] Bilirubin,Total 0.1-1.9 Normal (applies to non-numeric results) [facility] SGOT(AST) 45 U/L 15-37 Above high normal [facility] Note the following drug interference: Sulfasalazine Sulfapyridine Can see falsely depressed Can see falsely elevated result with up to 10% results with up to 10% decrease in measurement increase in measurement Recommend patients be collected for this test prior to administration of either drug. SGPT(ALT) 116 U/L 12-78 Above high normal [facility] Note the following drug interference: Sulfasalazine Sulfapyridine Can see falsely depressed Can see falsely elevated result with up to 29% results with up to 10% decrease in measurement increase in measurement Recommend patients be collected for this test prior to administration of either drug. Alkaline Phosphatase 115 U/L 38-126 Normal (applies to non-num emilia results) [facility] can increase Alkaline Phosp le vels up to 2 times the normal adult value. Normal values for children and adolescents are 2 to 3 times the normal adult value. Total Protein 6.0-8.2 Normal (applies to non-numeric re sults) [facility] Albumin Level 3.4-5.0 Normal (applies to non-numeric re sults) [facility] ID Date Data Source [id number] 09/17/2019 05:52:00 PM T [facility] Name Value Range Interpretation Code Description Data Agueda rce(s) Supporting Document(s) Triglycerides 355 mg/dL <150 Above high normal [facility] Cholesterol 193 mg/dL 100-200 Normal (applies to non-numeric resu lts) [facility] LDL Cholesterol Calculated 92 0-130 Normal (applies to n on-numeric results) [facility] HDL Cholesterol 30 mg/dL 40-60 Below low normal [facility] Cholesterol/HDL Ratio 3.6-6.7 Normal (applies to non-nu meric results) [facility] ID Date Data Source [id number] 09/17/2019 05:52:00 PM T [facility] Name Value Range Interpretation Code Description Data Agueda rce(s) Supporting Document(s) Thyroid Stimulate Hormone TSH 0.358-3.74 No rmal (applies to non-numeric results) [facility] ID Date Data Source [id number] 09/17/2019 05:52:00 PM [facility] Name Value Range Interpretation Code Description Data Agueda rce(s) Supporting Document(s) Free T4 (Free Thyroxine) 0.76-1.46 Normal (applies to non -numeric results) [facility] ID Date Data Source [id number] 09/17/2019 05:10:00 PM EDT [facility] Name Value Range Interpretation Code Description Data Agueda rce(s) Supporting Document(s) White Blood Count 3.5-10.5 Normal (applies to non-numeri c results) [facility] Red Blood Count 4.30-5.70 Normal (applies to non-numeric results) [facility] Hemoglobin 13.5-17.5 Normal (applies to non-numeric resul ts) [facility] Hematocrit 38.8-50.0 Normal (applies to non-numeric resul ts) [facility] Mean Corpuscular Volume 81.2-95.1 Normal (applies to non- numeric results) [facility] Mean Corpuscular Hgb 25.6-32.2 Normal (applies to non-num emilia results) [facility] Mean Corpuscular Hgb Conc 32.0-36.0 Normal (applies to no n-numeric results) [facility] Red Cell Distribution Width 11.8-15.6 Normal (appli es to non-numeric results) [facility] Platelet Count 293 x10 3/uL 150-450 Normal (applies to non-numeric results) [facility] Mean Platelet Volume 9.4-12.4 Normal (applies to non-num emilia results) [facility] Neutrophils% (Auto) 31.0-71.0 Normal (applies to non-nume pako results) [facility] Lymphocytes% (Auto) 20.0-55.0 Normal (applies to non-nume pako results) [facility] Monocytes% (Auto) 4.0-12.0 Normal (applies to non-numeri c results) [facility] Eosinophils% (Auto) 1.0-8.0 Normal (applies to non-nume pako results) [facility] Basophils% (Auto) 0.0-2.0 Normal (applies to non-numeri c results) [facility] Immature Granulocytes% (Auto) 0.0-2.0 Normal (jovanni lies to non-numeric results) [facility] Neutrophils# (Auto) 1.50-6.20 Normal (applies to non-nume pako results) [facility] Lymphocytes# (Auto) 1.20-4.00 Normal (applies to non-nume pako results) [facility] Monocytes# (Auto) 0.00-0.90 Normal (applies to non-numeri c results) [facility] Eosinophils# (Auto) 0.00-0.50 Normal (applies to non-nume pako results) [facility] Basophils# (Auto) 0.00-0.20 Normal (applies to non-numeri c results) [facility] Immature Granulocytes# (Auto) 0.00-7.00 No rmal (applies to non-numeric results) [facility] ID Date Data Source [id number] 09/11/2019 04:20:00 PM EDT [facility] Name: JHON PATE [facility] Rec #: [id number] : 1975 Age/Sex: 44M Date of Service: [...] rce(s) Supporting Document(s) ID Date Data Source [id number] 09/16/2019 05:28:00 PM EDT [facility] Liter Flow: 1 3 hour post Lactic if timothy vated? Y On Oxygen? N Name Value Range Interpretation Code Description Data Agueda rce(s) Supporting Document(s) Blood Culture-Venous [facility] ID Date Data Source [id number] 09/16/2019 05:28:00 PM EDT [facility] Liter Flow: 1 3 hour post Lactic if timothy vated? Y On Oxygen? N Name Value Range Interpretation Code Description Data Agueda rce(s) Supporting Document(s) Blood Culture-Venous [facility] ID Date Data Source [id number] 09/15/2019 09:45:00 AM EDT [facility] COVID-19 Specimen Source [id number] Name Value Range Interpretation Code Description Data Agueda rce(s) Supporting Document(s) SARS-CoV-2 RNA Undetected Normal (applies to non-numeric r esults) [facility] SARS-CoV-2 RNA is not detected. ------- ADDITIONAL INFORMATION Testing was performed using the ramez SARS-CoV-2 assay ([employer] on the [employer] System. Fact sheets for this Emergency Use Authorization (EUA) assay can be found at the following links: For Healthcare Providers: https://www.fda.gov/media/702992/download For Patients: https://www.fda.gov/media/877299/download Test Performed by: [place] [address] Product Development Chemist: Noe Williamson M.D. Ph.D.; CLIA# [id number] ID Date Data Source [id number] 09/11/2019 06:58:00 PM EDT [facility] NThis Respiratory Panel DOES NOT test fo r the Novel 2018- Coronovirus (2019- nCoV) from [facility]. If patient is suspected of having the Novel 2018 Coronovirus notify the Health Department IMMEDIATELY. Not detectedNot detectedNot detectedNot detectedNot detectedNot detectedNot detectedNot detectedNot detectedNot detectedNot detectedNot detectedNot detectedNot detected Methodology: Multiplexed PCR Reference Range: Not detectedNot detectedNot detectedNot detectedNot detected Name Value Range Interpretation Code Description Data Agueda rce(s) Supporting Document(s) ID Date Data Source [id number] 09/11/2019 06:04:00 PM EDT [facility] Name Value Range Interpretation Code Description Data Agueda rce(s) Supporting Document(s) Sodium 136 mmol/L 137-145 Below low normal [facility] Potassium 3.5-5.1 Normal (applies to non-numeric resul ts) [facility] Chloride 103 mmol/L 98-112 Normal (applies to non-numeric resul ts) [facility] Carbon Dioxide CO2 22.0-33.0 Normal (applies to non-numer ic results) [facility] Anion Gap 4.0-11.0 Normal (applies to non-numeric resul ts) [facility] BUN 18 mg/dL 9-20 Normal (applies to non-numeric resul ts) [facility] Creatinine 0.80-1.50 Normal (applies to non-numeric resul ts) [facility] GFR 75 mL/min >60 Normal (applies to non-numeric resul ts) [facility] Result based on MDRD formula. Glucose Level 105 mg/dL 74-99 Above high normal [facility] The reference range is only applicable w hen fasting. Calcium-Uncorrected 8.4-10.2 Normal (applies to non-nume pako results) [facility] Corrected Calcium 8.4-10.2 Normal (applies to non-numeri c results) [facility] Bilirubin,Total 0.2-1.3 Normal (applies to non-numeric results) [facility] SGOT(AST) 58 U/L 17-59 Normal (applies to non-numeric resul ts) [facility] SGPT(ALT) 113 U/L 21-72 Above high normal [facility] Alkaline Phosphatase 111 U/L 38-126 Normal (applies to non-num emilia results) [facility] can increase Alkaline Phosp le vels up to 2 times the normal adult value. Normal values for children and adolescents are 2 to 3 times the normal adult value. Total Protein 6.3-8.2 Normal (applies to non-numeric re sults) [facility] Albumin 3.5-5.0 Normal (applies to non-numeric resul ts) [facility] ID Date Data Source [id number] 09/11/2019 06:04:00 PM EDT [facility] Name Value Range Interpretation Code Description Data Agueda rce(s) Supporting Document(s)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 Respiratory Panel (Use Workup); Complete Time: [facility] 19:46 07/05 19:46 Interpretation: Within normal limits. [facility] 07/05 18:04 Order name: VBG [facility] 07/05 18:04 Order name: D-Dimer [facility] 07/05 19:27 Order name: Bilirubin,Direct [facility] 07/05 19:51 Order name: CT Chest for PE with Contrast [facility] 07/05 20:44 Interpretation: I mpression No evidence for pulmonary kojo embolism. Trace pericardial effusion. Findings suggest early congestive failure Hepatic steatosis. The exam demonstrates a cholecystectomy. 07/05 18:04 Order name: Collect Urine - Clean Catch; Complete Time: kojo 18:32 07/05 18:04 Order name: Saline Lock; Complete Time: 18:32 [facility] 07/05 18:04 Order name: Monitor - Cardiac, Place on Patient; Complete kojo Time: 18:15 07/05 18:04 Order name: Monitor on Patient - Pulse Oximetry; Complete kojo Time: 18:15 07/05 18:04 Order name: Emergency Room EKG Order - Use EKG Work-Up kojo /Quick Select; Complete Time: 18:38 07/05 18:04 Order name: Collect nasal swab; Complete James e: 18:35 [facility] 07/05 21:08 Order name: Admit to Inpatient [facility] 07/05 18:04 Order name: Oxygen; Complete Time: 18:15 kojo Dispensed Medi cations: 18:38 Drug: NS 0.9% 1000 ml [sodium chloride 0.9 % injection jh6 solution] Route: IV; Rate: 150 mL/hr; Site: right forearm; 22:53 Follow up: IV Status: Infusion continued upon admission to [facility]. 18:50 Drug: DuoNeb - Albuterol-Ipratropium 3 [...] up: Response: Shortness of breath improved. [facility] 21:45 Drug: DuoNeb - Albuterol-Ipratropium 3 ml arj [ipratropium-albuterol 0.5 mg-3 mg(2.5 mg base)/3 mL nebulization soln (3 mL)] Route: Nebulizer; 22:10 Follow up: Response: Shortness of breath improved. [facility] 21:45 Drug: DuoNeb - Albuterol-Ipratropium 3 ml arj [ipratropium-albuterol 0.5 mg-3 mg(2.5 mg base)/3 mL nebulization soln (3 mL)] Route: Nebulizer; 22:10 Follow up: Response: Shortness of breath improved. [facility] 22:40 Not Given (administered on floorr): levo floxacin 750 mg arj IVPB once; order lactate and/or blood cultures if for sepsis 22:51 Drug: Magnesium Sulfate 2 grams [magnesium sulfate 2 arj gram/50 mL (4 %) in water intravenous piggyback] Route: IV; Rate: calculated rate; Infused Over: 20 mins; Site: right antecubital; 22:51 Follow up: IV Status: Infusion continued upon admission to [facility]. Disposition Summary: 07/05/19 21:06 Hospitalization Ordered Hospitalization Status: Inpatient Admission kojo Provider: Noe Xiong Location: Med-Surg [facility] Condition: Fair [facility] Room Assignment: [id number](07/05/19 21:09) sf2 Diagnosis - Respiratory failure, unspecified [...] rce(s) Supporting Document(s) ID Date Data Source [id number] 07/05/2019 05:13:00 PM [facility] Name: JHON PATE [facility] Rec #: [id number] : 1975 Age/Sex: 43M Date of Service: [...] rce(s) Supporting Document(s) ID Date Data Source [id number] 07/05/2019 05:13:00 PM [facility] Name: JHON PATE [facility] Rec #: [id number] : 1975 Age/Sex: 43M Date of Service: 07/05/19 NURSE CHART Nurse's Notes Name: Jhon Pate Age: 43 yrs Sex: Male : 1975 Arrival Date: 07/05/2019 Time: 17:13 Bed 3 Private MD: Mateo Rodríguez S Diagnosis: Respiratory failure, unspecified with hypoxia;Chest pain, unspecified Presentation: 07/05 17:16 Transition of care: patient was not received from another [facility] setting of care. Presenting complaint: Patient states - Began to feel sob this morning, had a couple invasive tests yesterday in Radiology. Patient denies any travel outside the [place] in the last 30 days. Patient denies exposure to sick international traveler in last 30 days. 17:16 Method Of Arrival: Walk-In [facility] 17:16 Acuity: Urgent - [address] [facility] Triage Assessment: 17:17 SEPSIS SCREEN: A Confirmed [...] 17:37 Bolivar Mackenzie, PERI is Primary Nurse. [facility] 17:41 Kassy Esquivel PA-C [facility] kojo 17:41 Kevin Crocker MD is Attending Physician. [facility] 18:15 gambling monitor on. Pulse on is on. NIBP on. [facility] 18:15 Oxygen administration via nasal cannula & 2L/min. [facility] 18:32 Labs drawn by lab staff. Inserted saline lock: 20 gauge in [facility] right forearm. 18:37 An EKG was obtained and reviewed by Kassy Esquivel PA-C. [facility] 18:38 Cardiology EKG Interpretation - Choose Reason for Test Sent.[facility] 18:59 Radiology: a portable X-ray was completed at 18:00. [facility] 18:59 Urine collected. Clean catch specimen. [facility] 19:07 Primary Nurse role handed off by Bolivar Mackenzie RN [facility] 19:08 Marietta Boyd, PERI is Primary Nurse. ar 20:05 Radiology: The patient went to get his/her CT at 20:05. ar 20:08 Radiology: Patient returned from CT at 20:08. [facility] 21:05 Noe Xiong RNP is Hospitalizing Provider. kojo 21:25 [employer] called to bedside to perform NIF measurement on pt. Pt pj set up in reyna's position, nasal clamp applied to nares and pt directed to exhale entirely prior to inhalation measurement reading. [employer] measured 3 best attempts. -20, -25, -35 [...] Status: Infusion continued upon admission to [facility]. 18:50 Drug: DuoNeb - Albuterol-Ipratropium 3 [...] (administered on floorr): levofloxacin 750 mg [facility] IVPB once; order lactate and/or blood cultures if for sepsis 22:51 Drug: Magnesium Sulfate 2 grams [magnesium sulfate 2 [facility] gram/50 mL (4 %) in water intravenous piggyback] Route: IV; Rate: calculated rate; Infused Over: 20 mins; Site: right antecubital; 22:51 Follow up: IV Status: Infusion continued upon admission to [facility]. Intake: 22:41 IV: 100ml; Total: 100ml. [facility] Outcome: 21:06 Decision to Hospitalize by Provider. kojo 21:30 Report given to PERI Smith 22:53 Reassessment: Visual reassessment shows no worsening [facility] symptoms, vital signs not warranted. 22:53 Patient [...] Policy. 23:20 Patient left the ED. [facility] 07/06 08:39 24 hour call back N/A - patient was admitted jh6 Signatures: Woody Flores, RN RN mp1 Kassy Esquivel PA-C PA-C jem Young, Scott sjy Gooshaw, Jennifer, NA NA jmg Howe, Jesse, RN RN 6 Marietta Boyd RN RN [facility] Tamara Khalil Name Value Range Interpretation Code Description Data Agueda rce(s) Supporting Document(s) ID Date Data Source [id number] 07/06/2019 03:46:00 PM [facility] Hospital Name: PAULAHENRYJHON Bong : 7 Age/Sex: 43M Ordering Provider: MARCELINA Taveras Med Rec #: [id number] Reg Status: ADM IN Room #: 210-2 Date of Service: 07/06/19 Report Number: [id number] cc:Mateo Rodríguez MD; Noe Stacy MARCELINA Xiong Send Report To: [id number] CT/CT Neck Soft Tissue w Contrast Reason [...] Date/Time: 07/06/19 1529 Transcribed Date/Time: 07/06/19 1546 Head Of Housekeeping: LYNETTE Name Value Range Interpretation Code Description Data Agueda rce(s) Supporting Document(s) ID Date Data Source [id number] 07/06/2019 06:34:00 AM [facility] Name Value Range Interpretation Code Description Data Agueda rce(s) Supporting Document(s) Venous PH 7.31-7.41 Above high normal [facility] VBG PCO2 36 mmHg 42-55 Below low normal [facility] VBG PO2 67 mmHg 30-50 Above high normal [facility] VBG HCO3 24.0-28.0 Below low normal [facility] Hospital ID Date Data Source [id number] 07/05/2019 08:43:00 PM EST [facility] Name: JHON PATE : 7 Age/Sex: 43M Ordering Provider: MARIANA Jenkins Med Rec #: [id number] Reg Status: REG ER Room #: Date of Service: 07/05/19 Report Number: [id number] cc:MARIANA Jenkins; Mateo Rodríguez MD Send Report [...] 07/05/192042 Dictation Date/Time: 07/05/192042 Transcribed Date/Time: 07/05/192042 Head Of Housekeeping: Name Value Range Interpretation Code Description Data Agueda rce(s) Supporting Document(s) ID Date Data Source [id number] 07/05/2019 07:46:00 PM [facility] Not detectedNot detectedNot detectedNot detectedNot detectedNot detectedNot detectedNot detectedNot detectedNot detectedNot detectedNot detectedNot detectedNot detected Methodology: Multiplexed PCR Reference Range: None detectedNot detectedNot detectedNot detectedNot detected Name Value Range Interpretation Code Description Data Agueda rce(s) Supporting Document(s) ID Date Data Source [id number] 07/05/2019 08:53:00 PM [facility] Name Value Range Interpretation Code Description Data Agueda rce(s) Supporting Document(s) Sodium 138 mmol/L 137-145 Normal (applies to non-numeric resul ts) [facility] Potassium 3.5-5.1 Normal (applies to non-numeric resul ts) [facility] Chloride 106 mmol/L 98-112 Normal (applies to non-numeric resul ts) [facility] Carbon Dioxide CO2 22.0-33.0 Normal (applies to non-numer ic results) [facility] Anion Gap 4.0-11.0 Normal (applies to non-numeric resul ts) [facility] BUN 16 mg/dL 9-20 Normal (applies to non-numeric resul ts) [facility] Creatinine 0.80-1.50 Normal (applies to non-numeric resul ts) [facility] GFR 59 mL/min >60 Below low normal [facility] Result based on MDRD formula. Glucose Level 109 mg/dL 74-99 Above high normal [facility] The reference range is only applicable w hen fasting. Calcium-Uncorrected 8.4-10.2 Normal (applies to non-nume pako results) [facility] Corrected Calcium 8.4-10.2 Normal (applies to non-numeri c results) [facility] Bilirubin,Total 0.2-1.3 Above high normal [facility] SGOT(AST) 27 U/L 17-59 Normal (applies to non-numeric resul ts) [facility] SGPT(ALT) 76 U/L 21-72 Above high normal [facility] Alkaline Phosphatase 86 U/L 38-126 Normal (applies to non-num emilia results) [facility] can increase Alkaline Phosp le vels up to 2 times the normal adult value. Normal values for children and adolescents are 2 to 3 times the normal adult value. Total Protein 6.3-8.2 Normal (applies to non-numeric re sults) [facility] Albumin 3.5-5.0 Normal (applies to non-numeric resul ts) [facility] ID Date Data Source [id number] 07/05/2019 08:53:00 PM [facility] Name Value Range Interpretation Code Description Data Agueda rce(s) Supporting Document(s) Bilirubin,Direct 0.0-0.3 Normal (applies to non-numeric results) [facility] ID Date Data Source [id number] 07/05/2019 08:53:00 PM [facility] Name Value Range Interpretation Code Description Data Agueda rce(s) Supporting Document(s) Lipase 86 U/L 73-393 Normal (applies to non-numeric resul ts) [facility] ID Date Data Source [id number] 07/05/2019 08:53:00 PM [facility] Name Value Range Interpretation Code Description Data Agueda rce(s) Supporting Document(s) B-Type Natriuretic Peptide BNP 8 pg/mL <125 N ormal (applies to non-numeric results) [facility] NT-proBNP values less than 300 pg/mL hav [...] acute congestive failure. ID Date Data Source [id number] 07/05/2019 07:07:00 PM [facility] Name Value Range Interpretation Code Description Data Agueda rce(s) Supporting Document(s) Troponin I 0.000-0.045 Normal (applies to non-numeric resu lts) [facility] ID Date Data Source [id number] 07/05/2019 07:04:00 PM [facility] Name Value Range Interpretation Code Description Data Agueda rce(s) Supporting Document(s) D-Dimer Quant 249 ng/mLFEU <500 Normal (applies to non-numeric results) [facility] Negative for D-Dimer. This test has f ull FDA exclusion claim at a Negative cutoff value of 500 ng/mL FEU. When the d-dimer value is used in conjunction with the clinical pretest probability (PTP) assessment model to exclude DVT and PE, results less than 500 ng/mL are negative for DVT/PE. ID Date Data Source [id number] 07/05/2019 06:46:00 PM [facility] Liter Flow: 0 On Oxygen? N Name Value Range Interpretation Code Description Data Agueda rce(s) Supporting Document(s) Venous PH 7.31-7.41 Above high normal [facility] VBG PCO2 43 mmHg 42-55 Normal (applies to non-numeric resul ts) [facility] VBG PO2 41 mmHg 30-50 Normal (applies to non-numeric resul ts) [facility] VBG HCO3 24.0-28.0 Normal (applies to non-numeric resul ts) [facility] ID Date Data Source [id number] 07/05/2019 06:38:00 PM [facility] Name Value Range Interpretation Code Description Data Agueda rce(s) Supporting Document(s) White Blood Count 4.8-10.8 Normal (applies to non-numeri c results) [facility] Red Blood Count 4.35-6.08 Normal (applies to non-numeric results) [facility] Hemoglobin 13.0-17.5 Normal (applies to non-numeric resul ts) [facility] Hematocrit 37.7-51.0 Normal (applies to non-numeric resul ts) [facility] Mean Corpuscular Volume 80-94 Normal (applies to non- numeric results) [facility] Mean Corpuscular Hemoglobin 27.0-33.0 Normal (appli es to non-numeric results) [facility] Mean Corpuscular HGB Conc 32.0-36.0 Normal (applies to no n-numeric results) [facility] Red Cell Distribution Width 11.5-14.5 Above high normal [facility] Platelet Count 301 X10 3/uL 130-450 Normal (applies to non-numeric results) [facility] Mean Platelet Volume 9.6-13.1 Normal (applies to non-num emilia results) [facility] Imm Grans% (AUTO) 1 % 0-2 Normal (applies to non-numeri c results) [facility] Neutrophils % (AUTO) 77 % 40-75 Above high normal [facility] Lymphocytes % (AUTO) 17 % 21-46 Below low normal [facility] Monocytes % (AUTO) 5 % 5-12 Normal (applies to non-numer ic results) [facility] Eosinophils % (AUTO) 0 % 1-5 Below low normal [facility] Basophils % (AUTO) 0 % 0-1 Normal (applies to non-numer ic results) [facility] Imm Grans# (AUTO) 0.00-0.50 Normal (applies to non-numeri c results) [facility] Neutrophils # (AUTO) 1.5-8.1 Normal (applies to non-num emilia results) [facility] Lymphocytes # (AUTO) 1.0-3.1 Normal (applies to non-num emilia results) [facility] Monocytes # (AUTO) 0.2-1.3 Normal (applies to non-numer ic results) [facility] Eosinophils# (AUTO) 0.0-0.5 Normal (applies to non-nume pako results) [facility] Basophils # (AUTO) 0.00-0.10 Normal (applies to non-numer ic results) [facility] ID Date Data Source [id number] 07/05/2019 06:56:00 PM EST [facility] Name Value Range Interpretation Code Description Data Agueda rce(s) Supporting Document(s) Color,Urine Yellow Normal (applies to non-numeric resu lts) [facility] Clarity,Urine Clear Normal (applies to non-numeric re sults) [facility] Specific [place],Urine 1.001-1.030 Normal (applies to non- numeric results) [facility] PH,Urine 5.0-8.0 [facility] Protein,Urine Negative Normal (applies to non-numeric re sults) [facility] Glucose,Urine (UA) Negative Normal (applies to non-numer ic results) [facility] Ketones,Urine Negative Normal (applies to non-numeric re sults) [facility] Blood,Urine Negative Normal (applies to non-numeric resu lts) [facility] Bilirubin,Urine Negative Normal (applies to non-numeric results) [facility] Urobilinogen,Urine Norm 0.2-1 Normal (applies to non-numer ic results) [facility] Leukocyte Esterase,Urine Negative Normal (applies to non -numeric results) [facility] Nitrite,Urine Negative Normal (applies to non-numeric re sults) [facility] ID Date Data Source [id number] 07/06/2019 01:51:00 PM [facility] Name: JHON PATE : 7 Age/Sex: 43M Ordering Provider: MARIANA Jenkins Med Rec #: [id number] Reg Status: ADM IN Room #: 210-2 Date of Service: 07/05/19 Report Number: [id number] cc:MARIANA Jenkins; Mateo Rodríguez MD Send Report To: [id number] XRP/XR Chest Xray Portable Reason for exam: [...] Dictation Date/Time: 07/05/191818 Transcribed Date/Time: 07/06/19 1351 Head Of Housekeeping: LYNETTE Name Value Range Interpretation Code Description Data Agueda rce(s) Supporting Document(s) ID Date Data Source [id number] 07/06/2019 09:17:00 PM [facility] Name: JHON PATE : 7 Age/Sex: 43M Ordering Provider: MARIANA Jenkins Med Rec #: [id number] Reg Status:ADM IN Room #: 210-2 Date of Service: 07/05/19 Report Number: [id number] cc: MARIANA Jenkins; Mateo Rodríguez MD; Milla Clement MD Send Report To: Reason for exam: CP/SOB SINUS RHYTHM MINIMAL VOLTAGE CRITERIA FOR LVH, CONSIDER NORMAL VARIANT NONSPECIFIC T-WAVE ABNORMALITY BORDERLINE ECG Physician Forest Worker: David Ware M.D. ECG HEART RATE: 99 /min ECG RR INTERVAL: 604 ms ECG P DURATION: 116 ms ECG QRS DURATION: 112 ms ECG [place] INTERVAL: 148 ms ECG QT INTERVAL: 330 ms ECG QTC INTERVAL: 398 ms Q-T dispersion: ms ECG P AXIS: 44 deg ECG QRS AXIS: -18 deg ECG T AXIS: 0 deg REPORT SIGNATURE ON FILE 07/06/192116 Reported By: David Ware MD <<Signature on File>> Exam Date/Time: 07/05/19 1837 Order #: [id number] Dictation Date/Time: 07/06/192116 Transcribed Date/Time: 07/06/192116 Head Of Housekeeping: TOBY Name Value Range Interpretation Code Description Data Agueda rce(s) Supporting Document(s) ID Date Data Source [id number] 07/05/2019 01:43:00 PM [facility] Sp jenni Cardozo MD, Director PAGE [id number] [place] [address] [place] [address] Name: JHON PATE Rec #: [id number]: 1975 Age/Sex: 43/M Attending Provider: Lorraine Loyd MD Date of Service: 07/04/19 Location: [facility] CC: MD Mateo Winslow MD Specimen: [id number] Received: Status: ANDREY Hale Num: [id number] Collected: Type: SURGICAL Subm Doc: Lorraine Loyd [...] rce(s) Supporting Document(s) ID Date Data Source [id number] 07/08/2019 04:35:00 PM EST [facility] Name Value Range Interpretation Code Description Data Agueda rce(s) Supporting Document(s) IgG Index,CSF <=0.85 Normal (applies to non-numeric re sults) [facility] IgG,CSF <=8.1 Normal (applies to non-numeric resul ts) [facility] Albumin,CSF <=27.0 [facility] pital IgG/Albumin,CSF <=0.21 Normal (applies to non-numeric results) [facility] Synthesis Rate,CSF <=12 Normal (applies to non-numer ic results) [facility] IgG,Serum 672 mg/dL 767 - 1590 [place] [facility] ital Albumin,S 4200 mg/dL Normal (applies to non-numeric resul ts) [facility] REFERENCE VALUE------ 3200 - 4800 IgG/Albumin,S <=0.40 Normal (applies to non-numeric re sults) [facility] Test Performed by: [facility] [address] [place] [address] Product Development Chemist: Noe Williamson M.D. Ph.D.; CLIA# [id number] ID Date Data Source [id number] 07/04/2019 03:32:00 PM EST [facility] Name Value Range Interpretation Code Description Data Agueda rce(s) Supporting Document(s) Tube Number,(CSF Fld) 1 Normal (applies to non-nu meric results) [facility] Volume,(CSF Fld) 1 mL Normal (applies to non-numeric results) [facility] Appearance,(CSF Fld) Normal (applies to non-num emilai results) [facility] Slide reviewed by Pathologist for conf irmation. 07/04/19 DR CARDOZO. This is a Corrected Result --- 07/04/19 1531 --- Appear(CSF Fld) previously reported as: Clear Color,(CSF Fld) Normal (applies to non-numeric results) [facility] RBC (CSF Fld) Normal (applies to non-numeric re sults) [facility] No established reference values WBC (CSF Fld) Normal (applies to non-numeric re sults) [facility] No established reference values Mononuclear %(CSF Fld) Normal (applies to non-n umeric results) [facility] No established reference values Polymononuclear %(CSF Fld) Normal (applies to n on-numeric results) [facility] No established reference values Mononuclear #(CSF Fld) Normal (applies to non-n umeric results) [facility] No established reference values Polymononuclear #(CSF Fld) Normal (applies to n on-numeric results) [facility] No established reference values Glucose,(CSF Fld) 73 mg/dL 40-70 Above high normal [facility] Total Protein,(CSF Fluid) 15-45 Above high normal [facility] ID Date Data Source [id number] 07/04/2019 03:32:00 PM [facility] Name Value Range Interpretation Code Description Data Agueda rce(s) Supporting Document(s) Tube Number,(CSF Fld)b 4 Normal (applies to non-n umeric results) [facility] Appearance,(CSF Fld)Tube b Normal (applies to n on-numeric results) [facility] Slide reviewed by Pathologist for conf irmation. 07/04/19 DR CARDOZO This is a Corrected Result --- 07/04/19 1531 --- Appear(CSFFld)b previously reported as: Clear Color,(CSF Fld)Tube b Normal (applies to non-nu meric results) [facility] RBC (CSF Fld)Tube b Normal (applies to non-nume pako results) [facility] No established reference values WBC (CSF Fld)Tube b Normal (applies to non-nume pako results) [facility] No established reference values Mononuclear %(CSF Fld)Tube b Normal (applies to non-numeric results) [facility] No established reference values Polymononuclear%(CSF Fld)TubeB Normal (applies to non-numeric results) [facility] No established reference values Mononuclear #(CSF Fld) Tube b Normal (applies t o non-numeric results) [facility] No established reference values Polymononuclear#(CSF Fld)TubeB Normal (applies to non-numeric results) [facility] No established reference values ID Date Data Source [id number] 07/05/2019 01:28:00 PM [facility] Name Value Range Interpretation Code Description Data Agueda rce(s) Supporting Document(s) Immunoglobulin G result 628 mg/dL 610-1,616 Normal ( applies to non-numeric results) [facility] Test performed [place] [address] ID Date Data Source [id number] 07/04/2019 12:04:00 PM [facility] Name Value Range Interpretation Code Description Data Agueda rce(s) Supporting Document(s) Glucose Level 110 mg/dL 74-99 Above high normal [facility] The reference range is only applicable w hen fasting. ID Date Data Source [id number] 07/04/2019 01:56:00 PM [facility] Hospital Name: JHON PATE : 7 Age/Sex: 43M Ordering Provider: Lorraine Loyd MD Med Rec #: [id number] Reg Status:REG [facility] Room #: Date of Service: 07/04/19 Report Number: [id number] cc: Lorraine Loyd MD; Mateo Rodríguez MD Send Report To: Reason for exam: RPREOP SINUS TACHYCARDIA ABNORMAL RHYTHM ECG Compared to 05/07/2019 there is no significant change Physician Forest Worker: Brian Mai M.D. ECG HEART RATE: 103 /min ECG RR INTERVAL: 578 ms ECG P DURATION: 118 ms ECG QRS DURATION: 106 ms ECG [place] INTERVAL: 141 ms ECG QT INTERVAL: 322 ms ECG QTC INTERVAL: 397 ms Q-T dispersion: ms ECG P AXIS: 56 deg ECG QRS AXIS: -5 deg ECG T AXIS: -3 deg REPORT SIGNATURE ON FILE 07/04/19 1357 Reported By: Brian Mai MD, [facility] <<Signature on File>> Exam Date/Time: 07/04/19 0930 Order #: [id number] Dictation Date/Time: 07/04/196 Transcribed Date/Time: 07/04/19 135 Head Of Housekeeping: TOBY Name Value Range Interpretation Code Description Data Agueda rce(s) Supporting Document(s) ID Date Data Source [id number] 06/20/2019 06:33:00 PM [facility] Name Value Range Interpretation Code Description Data Agueda rce(s) Supporting Document(s) PT 9.2-11.7 Normal (applies to non-numeric results) [facility] INR Normal (applies to non-numeric results) [facility] The use of INR is restricted to patients on stable oral anticoagulant. Therapeutic Range: 2.0 - 3.0 High Risk Range: 2.5 - 3.5 ID Date Data Source [id number] 06/20/2019 06:33:00 PM [facility] Name Value Range Interpretation Code Description Data Agueda rce(s) Supporting Document(s) PTT 23.8-37.9 Normal (applies to non-numeric results) [facility] ID Date Data Source [id number] 06/20/2019 06:22:00 PM [facility] Name Value Range Interpretation Code Description Data Agueda rce(s) Supporting Document(s) Sodium 140 mmol/L 136-145 Normal (applies to non-numeric resul ts) [facility] Potassium 3.5-5.1 Normal (applies to non-numeric resul ts) [facility] Chloride 100 mmol/L 98-107 Normal (applies to non-numeric resul ts) [facility] Carbon Dioxide CO2 21-32 Normal (applies to non-numer ic results) [facility] Anion Gap 5.0-16.0 Normal (applies to non-numeric resul ts) [facility] BUN 14 mg/dL 7-18 Normal (applies to non-numeric results) [facility] Creatinine,Serum 0.8-1.5 Normal (applies to non-numeric results) [facility] GFR >60 Normal (applies to non-numeric results) [facility] Glucose Level 114 mg/dL 60-99 Above high normal [facility] Reference range is only applicable when patient is fasting Note the following drug interference: Sulfasalazine Sulfapyridine Can see falsely depressed Can see falsely elevated result with up to 17% results with up to 11% decrease in measurement increase in measurement Recommend patients be collected for this test prior to administration of either drug. Calcium 8.5-10.1 Normal (applies to non-numeric resul ts) [facility] ID Date Data Source [id number] 06/20/2019 05:53:00 PM EST [facility] Name Value Range Interpretation Code Description Data Agudea rce(s) Supporting Document(s) White Blood Count 3.5-10.5 Above high normal [facility] Red Blood Count 4.30-5.70 Normal (applies to non-numeric results) [facility] Hemoglobin 13.5-17.5 Normal (applies to non-numeric resul ts) [facility] Hematocrit 38.8-50.0 Normal (applies to non-numeric resul ts) [facility] Mean Corpuscular Volume 81.2-95.1 Normal (applies to non- numeric results) [facility] Mean Corpuscular Hgb 25.6-32.2 Normal (applies to non-num emilia results) [facility] Mean Corpuscular Hgb Conc 32.0-36.0 Normal (applies to no n-numeric results) [facility] Red Cell Distribution Width 11.8-15.6 Normal (appli es to non-numeric results) [facility] Platelet Count 324 x10 3/uL 150-450 Normal (applies to non-numeric results) [facility] Mean Platelet Volume 9.4-12.4 Normal (applies to non-num emilia results) [facility] Neutrophils% (Auto) 31.0-71.0 Above high normal [facility] Lymphocytes% (Auto) 20.0-55.0 Below low normal [facility] Monocytes% (Auto) 4.0-12.0 Normal (applies to non-numeri c results) [facility] Eosinophils% (Auto) 1.0-8.0 Normal (applies to non-nume pako results) [facility] Basophils% (Auto) 0.0-2.0 Normal (applies to non-numeri c results) [facility] Immature Granulocytes% (Auto) 0.0-2.0 Normal (jovanni lies to non-numeric results) [facility] Neutrophils# (Auto) 1.50-6.20 Above high normal [facility] Lymphocytes# (Auto) 1.20-4.00 Normal (applies to non-nume pako results) [facility] Monocytes# (Auto) 0.00-0.90 Normal (applies to non-numeri c results) [facility] Eosinophils# (Auto) 0.00-0.50 Normal (applies to non-nume pako results) [facility] Basophils# (Auto) 0.00-0.20 Normal (applies to non-numeri c results) [facility] Immature Granulocytes# (Auto) 0.00-7.00 No rmal (applies to non-numeric results) [facility] ID Date Data Source [id number] 05/12/2019 08:30:00 AM [facility] Name Value Range Interpretation Code Description Data Agueda rce(s) Supporting Document(s) Sodium 139 mmol/L 137-145 Normal (applies to non-numeric resul ts) [facility] Potassium 3.5-5.1 Below low normal [facility] Chloride 106 mmol/L 98-112 Normal (applies to non-numeric resul ts) [facility] Carbon Dioxide CO2 22.0-33.0 Normal (applies to non-numer ic results) [facility] Anion Gap 4.0-11.0 Normal (applies to non-numeric resul ts) [facility] BUN 24 mg/dL 9-20 Above high normal [facility] Creatinine 0.80-1.50 Normal (applies to non-numeric resul ts) [facility] GFR 76 mL/min >60 Normal (applies to non-numeric resul ts) [facility] Result based on MDRD formula. Glucose Level 144 mg/dL 74-99 Above high normal [facility] The reference range is only applicable w hen fasting. Calcium-Uncorrected 8.4-10.2 Normal (applies to non-nume pako results) [facility] Corrected Calcium 8.4-10.2 Normal (applies to non-numeri c results) [facility] ID Date Data Source [id number] 05/12/2019 08:24:00 AM EST [facility] Name Value Range Interpretation Code Description Data Agueda rce(s) Supporting Document(s) White Blood Count 4.8-10.8 Above high normal [facility] Red Blood Count 4.35-6.08 Normal (applies to non-numeric results) [facility] Hemoglobin 13.0-17.5 Normal (applies to non-numeric resul ts) [facility] Hematocrit 37.7-51.0 Normal (applies to non-numeric resul ts) [facility] Mean Corpuscular Volume 80-94 Normal (applies to non- numeric results) [facility] Mean Corpuscular Hemoglobin 27.0-33.0 Normal (appli es to non-numeric results) [facility] Mean Corpuscular HGB Conc 32.0-36.0 Normal (applies to no n-numeric results) [facility] Red Cell Distribution Width 11.5-14.5 Normal (appli es to non-numeric results) [facility] Platelet Count 286 X10 3/uL 130-450 Normal (applies to non-numeric results) [facility] Mean Platelet Volume 9.6-13.1 Normal (applies to non-num emilia results) [facility] ID Date Data Source [id number] 05/11/2019 12:58:00 PM EST [facility] Name Value Range Interpretation Code Description Data Agueda rce(s) Supporting Document(s) Lactic Acid 3 Hour Post 0.4-2.0 Above high normal [facility] ID Date Data Source [id number] 05/11/2019 09:12:00 AM [facility] 3 hour post Lactic if elevated? Y Name Value Range Interpretation Code Description Data Agueda rce(s) Supporting Document(s) Lactic Acid 0.4-2.0 Above high normal [facility] ID Date Data Source [id number] 05/11/2019 09:18:00 AM [facility] Name Value Range Interpretation Code Description Data Agueda rce(s) Supporting Document(s) B-Type Natriuretic Peptide BNP 20 pg/mL <125 N ormal (applies to non-numeric results) [facility] NT-proBNP values less than 300 pg/mL hav [...] acute congestive failure. ID Date Data Source [id number] 05/10/2019 07:18:00 PM [facility] INITAL SPECIMEN NOT RUN, TO BE REDRAW Name Value Range Interpretation Code Description Data Agueda rce(s) Supporting Document(s) Lactic Acid 3 Hour Post 0.4-2.0 Above high normal [facility] ID Date Data Source [id number] 05/10/2019 12:12:00 PM [facility] Name Value Range Interpretation Code Description Data Agueda rce(s) Supporting Document(s) Color,Urine Yellow Normal (applies to non-numeric resu lts) [facility] Clarity,Urine Clear Normal (applies to non-numeric re sults) [facility] Specific [place],Urine 1.001-1.030 Normal (applies to non- numeric results) [facility] PH,Urine 5.0-8.0 Normal (applies to non-numeric resul ts) [facility] Protein,Urine Negative Normal (applies to non-numeric re sults) [facility] Glucose,Urine (UA) Negative Normal (applies to non-numer ic results) [facility] Ketones,Urine Negative Normal (applies to non-numeric re sults) [facility] Blood,Urine Negative Normal (applies to non-numeric resu lts) [facility] Bilirubin,Urine Negative Normal (applies to non-numeric results) [facility] Urobilinogen,Urine Norm 0.2-1 Normal (applies to non-numer ic results) [facility] Leukocyte Esterase,Urine Negative Normal (applies to non -numeric results) [facility] Nitrite,Urine Negative Normal (applies to non-numeric re sults) [facility] ID Date Data Source [id number] 05/11/2019 08:48:00 PM [facility] Name Value Range Interpretation Code Description Data Agueda rce(s) Supporting Document(s) ANCA Myeloperoxidase IgG res Normal (applies to non-numeric results) [facility] REFERENCE VALUE------ <0.4 (Negative) ANCA Proteinase3 IgG result Normal (applies to non-numeric results) [facility] REFERENCE VALUE------ <0.4 (Negative) Test Performed by: [facility] [place] [address] Product Development Chemist: Noe Williamson M.D. Ph.D.; CLIA# [id number] ID Date Data Source [id number] 05/10/2019 11:00:00 AM EST [facility] Name Value Range Interpretation Code Description Data Agueda rce(s) Supporting Document(s) Procalcitonin 0.00-0.24 Normal (applies to non-numeric re sults) [facility] 1.Risk of Progression to severe sepsis a [...] therapy is warranted. ID Date Data Source [id number] 05/10/2019 10:28:00 AM [facility] Name Value Range Interpretation Code Description Data Agueda rce(s) Supporting Document(s) Erythrocyte Sedimentation ESR 21 mm/hr 0-15 Above high normal [facility] ID Date Data Source [id number] 05/10/2019 10:26:00 AM [facility] Name Value Range Interpretation Code Description Data Agueda rce(s) Supporting Document(s) Sodium 140 mmol/L 137-145 Normal (applies to non-numeric resul ts) [facility] Potassium 3.5-5.1 Normal (applies to non-numeric resul ts) [facility] Chloride 105 mmol/L 98-112 Normal (applies to non-numeric resul ts) [facility] Carbon Dioxide CO2 22.0-33.0 Normal (applies to non-numer ic results) [facility] Anion Gap 4.0-11.0 Normal (applies to non-numeric resul ts) [facility] BUN 14 mg/dL 9-20 Normal (applies to non-numeric resul ts) [facility] Creatinine 0.80-1.50 Normal (applies to non-numeric resul ts) [facility] GFR 74 mL/min >60 Normal (applies to non-numeric resul ts) [facility] Result based on MDRD formula. Glucose Level 174 mg/dL 74-99 Above high normal [facility] The reference range is only applicable w hen fasting. Calcium-Uncorrected 8.4-10.2 Normal (applies to non-nume pako results) [facility] Corrected Calcium 8.4-10.2 Normal (applies to non-numeri c results) [facility] Bilirubin,Total 0.2-1.3 Normal (applies to non-numeric results) [facility] SGOT(AST) 12 U/L 17-59 Below low normal [facility] SGPT(ALT) 39 U/L 21-72 Normal (applies to non-numeric resul ts) [facility] Alkaline Phosphatase 67 U/L 38-126 Normal (applies to non-num emilia results) [facility] can increase Alkaline Phosp le vels up to 2 times the normal adult value. Normal values for children and adolescents are 2 to 3 times the normal adult value. Total Protein 6.3-8.2 Normal (applies to non-numeric re sults) [facility] Albumin 3.5-5.0 Normal (applies to non-numeric resul ts) [facility] ID Date Data Source [id number] 05/10/2019 10:26:00 AM [facility] Name Value Range Interpretation Code Description Data Agueda rce(s) Supporting Document(s) Magnesium 1.80-2.40 Normal (applies to non-numeric resul ts) [facility] ID Date Data Source [id number] 05/10/2019 10:26:00 AM [facility] Name Value Range Interpretation Code Description Data Agueda rce(s) Supporting Document(s) Phosphorus 2.5-4.9 Below low normal [facility] ID Date Data Source [id number] 05/10/2019 10:26:00 AM [facility] Name Value Range Interpretation Code Description Data Agueda rce(s) Supporting Document(s) C-Reactive Protein,Wide Range <3.00 Normal (applies t o non-numeric results) [facility] ID Date Data Source [id number] 05/10/2019 10:25:00 AM [facility] 3 hour post Lactic if elevated? Y Name Value Range Interpretation Code Description Data Agueda rce(s) Supporting Document(s) Lactic Acid 0.4-2.0 Above high normal [facility] ID Date Data Source [id number] 05/10/2019 09:55:00 AM [facility] Name Value Range Interpretation Code Description Data Agueda rce(s) Supporting Document(s) Venous PH 7.31-7.41 Normal (applies to non-numeric resul ts) [facility] VBG PCO2 39 mmHg 42-55 Below low normal [facility] VBG PO2 70 mmHg 30-50 Above high normal [facility] VBG HCO3 24.0-28.0 Normal (applies to non-numeric resul ts) [facility] ID Date Data Source [id number] 05/10/2019 09:52:00 AM EST [facility] Name Value Range Interpretation Code Description Data Agueda rce(s) Supporting Document(s) White Blood Count 4.8-10.8 Above high normal [facility] Red Blood Count 4.35-6.08 Below low normal [facility] Hemoglobin 13.0-17.5 Below low normal [facility] Hematocrit 37.7-51.0 Normal (applies to non-numeric resul ts) [facility] Mean Corpuscular Volume 80-94 Normal (applies to non- numeric results) [facility] Mean Corpuscular Hemoglobin 27.0-33.0 Normal (appli es to non-numeric results) [facility] Mean Corpuscular HGB Conc 32.0-36.0 Normal (applies to no n-numeric results) [facility] Red Cell Distribution Width 11.5-14.5 Normal (appli es to non-numeric results) [facility] Platelet Count 248 X10 3/uL 130-450 Normal (applies to non-numeric results) [facility] Mean Platelet Volume 9.6-13.1 Normal (applies to non-num emilia results) [facility] Imm Grans% (AUTO) 0.0-2.0 Normal (applies to non-numeri c results) [facility] Neutrophils % (AUTO) 43.0-75.0 Normal (applies to non-num emilia results) [facility] Lymphocytes % (AUTO) 20.5-45.5 Normal (applies to non-num emilia results) [facility] Monocytes % (AUTO) 5.5-11.7 Normal (applies to non-numer ic results) [facility] Eosinophils % (AUTO) 0.7-4.6 Normal (applies to non-num emilia results) [facility] Basophils % (AUTO) 0.2-1.2 Normal (applies to non-numer ic results) [facility] Imm Grans# (AUTO) 0.00-0.50 Normal (applies to non-numeri c results) [facility] Neutrophils # (AUTO) 1.90-7.00 Above high normal [facility] Lymphocytes # (AUTO) 1.30-3.10 Above high normal [facility] Monocytes # (AUTO) 0.40-0.70 Above high normal [facility] Eosinophils# (AUTO) 0.00-0.30 Normal (applies to non-nume pako results) [facility] Basophils # (AUTO) 0.00-0.10 Normal (applies to non-numer ic results) [facility] ID Date Data Source [id number] 05/21/2019 12:16:00 PM [facility] specimen in heel warmer til spun,s eparate immediately . Place specimen in heel warmer til spun,s eparate immediately . Name Value Range Interpretation Code Description Data Agueda rce(s) Supporting Document(s) Immunofixation Cryoglobulin Normal (applies to non-numeric results) [facility] Cryoglobulin negative. This sample had a trace amount of precipitation present, but no immunoglobulin has been detected by immunofixation. ADDITIONAL INFORMATION This test has been modified from the spring assembler supervisor's instructions. Its performance characteristics were determined by [facility] in a manner consistent with CLIA requirements. This test has not been cleared or approved by the U.S. Food and Drug Administration. Test Performed by: [facility] - [address] [address] Product Development Chemist: Zuri Williamson M.D. Ph.D.; CLIA# [id number] ID Date Data Source [id number] 05/29/2019 09:03:00 AM EST [facility] Place specimen in heel warmer til spun,s eparate immediately . Place specimen in heel warmer til spun,s eparate immediately . Name Value Range Interpretation Code Description Data Agueda rce(s) Supporting Document(s) Cryoglobulin,Serum Negative Normal (applies to non-numer ic results) [facility] This test is negative at 24 hours. All s amples are held and reviewed again at 7 days. If delayed precipitation occurs after 7 days, Immunofixation will be performed and an additional report will follow. Test Performed by: [place] [address] Product Development Chemist: Noe Williamson M.D. Ph.D.; CLIA# [id number] REVISED RESULTS The 7-day test has a trace cryoprecipitate. PREVIOUSLY REPORTED Negative (Reported 05/14/2019 11:15) This test is negative at 24 hours. All samples are held and reviewed again at 7 days. If delayed precipitation occurs after 7 days, Immunofixation will be performed and an additional report will follow. (Reported 05/14/2019 11:15) Test Performed by: [place] [address] Product Development Chemist: Noe Williamson M.D. Ph.D.; CLIA# [id number] This is a Corrected Result --- 05/20/19 1423 --- Cryoglob,Serum previously reported as: Negative %ppt This test is negative at 24 hours. All samples are held and reviewed again at 7 days. If delayed precipitation occurs after 7 days, Immunofixation will be performed and an additional report will follow. Test Performed by: [place] [address] Product Development Chemist: Noe Williamson M.D. Ph.D.; CLIA# [id number] Immunofixation Cryoglobulin Normal (applies to non-numeric results) [facility] Cryoglobulin negative. This sample had a trace amount of precipitation present, but no immunoglobulin has been detected by immunofixation. ADDITIONAL INFORMATION This test has been modified from the spring assembler supervisor's instructions. Its performance characteristics were determined by [facility] in a manner consistent with CLIA requirements. This test has not been cleared or approved by the U.S. Food and Drug Administration. Test Performed by: [place] [address] Product Development Chemist: Zuri Williamson M.D. Ph.D.; CLIA# [id number] ID Date Data Source [id number] 05/10/2019 02:59:00 PM [facility] Name: JHON PATE : 7 Age/Sex: 43M Ordering Provider: Jaylyn Morfin MD Med Rec #: [id number] Reg Status: ADM IN Room #: 312-1 Date of Service: 05/10/19 Report Number: [id number] cc:Mateo Rodríguez MD; Jaylyn Morfin MD Send Report To: [id number] CT/CT High Res Chest No Contrast Reason [...] Date/Time: 05/10/19 1341 Transcribed Date/Time: 05/10/19 1459 Head Of Housekeeping: CHAU Name Value Range Interpretation Code Description Data Agueda rce(s) Supporting Document(s) ID Date Data Source [id number] 05/09/2019 06:41:00 PM [facility] Presumptive negative for L.pneumophila s erogroup [...] rce(s) Supporting Document(s) ID Date Data Source [id number] 05/09/2019 06:41:00 PM [facility] Presumptive negative for L.pneumophila s erogroup [...] rce(s) Supporting Document(s) ID Date Data Source [id number] 05/09/2019 02:00:00 PM [facility] Name Value Range Interpretation Code Description Data Agueda rce(s) Supporting Document(s) Procalcitonin 0.00-0.24 Normal (applies to non-numeric re sults) [facility] 1.Risk of Progression to severe sepsis a [...] therapy is warranted. ID Date Data Source [id number] 05/09/2019 01:46:00 PM [facility] Name Value Range Interpretation Code Description Data Agueda rce(s) Supporting Document(s) Hemoglobin A1C % Less than 5.7% Above high normal [facility] HBA1C: Normal: Less than 5.7% Prediabetes: 5.7% to 6.4% Diabetes: 6.5% or higher HA1C % vs Estimated Average Glucose (eAG) % eAG % eAG 6% 126 mg/dL 10% 240 mg/dL 7% 154 mg/dL 11% 269 mg/dL 8% 183 mg/dL 12% 298 mg/dL 9% 212 mg/dL Reference: [employer] [employer], 2017 ID Date Data Source [id number] 05/09/2019 12:18:00 PM [facility] Name Value Range Interpretation Code Description Data Agueda rce(s) Supporting Document(s) Lactic Acid 3 Hour Post 0.4-2.0 PH [facility] REE read back critical information 05/09/19 1217 LAB.DELEI ID Date Data Source [id number] 05/10/2019 10:38:00 AM [facility] Name: JHON PATE : 7 Age/Sex: 43M Ordering Provider: MARIANA Arboleda Med Rec #: [id number] Reg Status: ADM IN Room #: 312-1 Date of Service: 05/09/19 Report Number: [id number] cc:Mateo Rodríguez MD; MARIANA Arboleda Send Report To: [id number] US/US Duplex Lower Ext Vein Bilat Reason [...] Date/Time: 05/09/19 1134 Transcribed Date/Time: 05/10/19 1038 Charter Driver ist: CHAU Name Value Range Interpretation Code Description Data Agueda rce(s) Supporting Document(s) ID Date Data Source [id number] 05/14/2019 02:20:00 PM [facility] Name Value Range Interpretation Code Description Data Agueda rce(s) Supporting Document(s) Carnitine Total 70 nmol/mL 34-78 Normal (applies to non-numeric results) [facility] Carnitine Free (FC) 62 nmol/mL 25-54 [facility] Acylcarnitine(AC) 8 nmol/mL 5-30 Normal (applies to non-numeri c results) [facility] Carnitine AC/FC Ratio 0.1-0.8 Normal (applies to non-nu meric results) [facility] Carnitine Interpretation Normal (applies to non -numeric results) [facility] In this sample, the carnitine profile wa s essentially normal. ADDITIONAL INFORMATION This test was developed and its performance characteristics determined by [facility] in a manner consistent with CLIA requirements. This test has not been cleared or approved by the U.S. Food and Drug Administration. Test Performed by: [facility] - [address] [address] Product Development Chemist: Noe Williamson M.D. Ph.D.; CLIA# [id number] ID Date Data Source [id number] 05/09/2019 08:00:00 AM [facility] 3 hour post Lactic if elevated? Y Name Value Range Interpretation Code Description Data Agueda rce(s) Supporting Document(s) Lactic Acid 0.4-2.0 Above high normal [facility] ID Date Data Source [id number] 05/08/2019 06:03:00 AM [facility] Name: JHON PATE : 7 Age/Sex: 43M Attending Physician: Kike Norton MD [facility] Rec #: [id number] Admission Date: 05/07/19 Room #: 312-1 Admitting Physician: Kike Norton MD Report Number: [id number] cc: Mateo Rodríguez MD Send Report To: Report Status - Signed HISTORY AND PHYSICAL Date of Admission: 05/07/19 This is a 43-year-old male who has recent admission to us and then transfer. [facility] in [facility]. So I see in notes that [...] rce(s) Supporting Document(s) ID Date Data Source [id number] 05/10/2019 10:34:00 AM [facility] Name: JHON PATE : 7 Age/Sex: 43M Ordering Provider: AMRIANA Orr Med Rec #: [id number] Reg Status: ADM IN Room #: 312-1 Date of Service: 05/09/19 Report Number: [id number] cc:Mateo Rodríguez MD; MARIANA Orr Send Report To: [id number] MRI/MRI Lum Spine w & wo Contrast [...] Date/Time: 05/09/19 1035 Transcribed Date/Time: 05/10/19 1034 Head Of Housekeeping: CHAU Name Value Range Interpretation Code Description Data Agueda rce(s) Supporting Document(s) ID Date Data Source [id number] 05/10/2019 06:49:00 AM [facility] Name: JHON PATE : 7 Age/Sex: 43M Ordering Provider: MARIANA Orr Med Rec #: [id number] Reg Status: ADM IN Room #: 312-1 Date of Service: 05/09/19 Report Number: [id number] cc:Mateo Rodríguez MD; MARIANA Orr Send Report To: [id number] MRI/MRI T Spine w&wo Con Reason for [...] Date/Time: 05/09/19 1109 Transcribed Date/Time: 05/10/19 0649 Head Of Housekeeping: EDISON Name Value Range Interpretation Code Description Data Agueda rce(s) Supporting Document(s) ID Date Data Source [id number] 05/07/2019 05:49:00 PM EST [facility] Name: JHON PATE Med Rec #: [id number] : 1975 Age/Sex: 43M Date of Service: [...] rce(s) Supporting Document(s) ID Date Data Source [id number] 05/07/2019 05:49:00 PM [facility] Name: JHON PATE Med Rec #: [id number] : 1975 Age/Sex: 43M Date of Service: [...] he/she has never smoked tobacco. Preferred Language: Italian. ROS: 18:57 ENT: Negative for injury, pain, [...] MDM: 18:50 Patient medically screened. [facility] 20:16 Data reviewed: vital signs, nurses notes. Data interpreted: [facility] Pulse oximetry: on 2L(s) per nasal canula, is 94 %. Interpretation:. 20:31 Antibiotic administration: Not indicated. ED course: [facility] Overall the patient did not respond well to nebulizer treatments. I was able to get his old medical record from [facility]. It appears that he was diagnosed with [...] limits: TROP I < 0.045. [facility] 05/07 18:11 Order name: PT; Complete Time: 19:15 aaq 05/07 19:15 Interpretation: Within normal limits: PT 10.6; INR 0.92. [facility] 05/07 18:11 Order name: PTT; Complete Time: 19:15 aaq 05/07 19:15 Interpretation: Within normal limits: PTT 31.4. [facility] 05/07 18:11 Order name: Magnesium; Complete Time: 19:56 aaq 05/07 19:30 Interpretation: Within normal limits: MG 2.20. [facility] 05/07 18:11 Order name: Lipase; Complete Time: 19:56 q 05/07 19:30 Interpretation: Within normal limits: LIP 139. [facility] 05/07 18:22 Order name: Cardiology EKG Interpretation - Choose Reason 6 for Test 05/07 18:24 Order name: Cardiology EKG Interpretation - Choose Reason q for Test 05/07 18:56 Order name: Blood Culture - Venous [facility] 05/07 18:56 Order name: Lactic Acid; Complete Time: 19:56 [facility] 05/07 19:56 Interpretation: Abnormal: Lactic 4.6. [facility] 05/07 18:56 Order name: Respiratory Panel (Use Workup); Complete Time: [facility] 20:50 05/07 20:15 Order name: CXR 1 View (Pa OR Ap) [facility] 05/07 18:22 Order name: Emergency Room EKG Order - Use EKG Work-Up 6 /Quick Select; Complete Time: 18:50 05/07 18:24 Order name: Emergency Room EKG Order - Use EKG Work-Up q /Quick Select; Complete Time: 18:29 05/07 18:56 Order name: Collect nasal swab; Complete Time: 19:14 [facility] 05/07 19:51 Order name: Oxygen - 2L Nasal Cannula; Complete Time: 19:55 [facility] 05/07 20:36 Order name: Admit to Inpatient EDMS Dispensed Medications: 19:10 Drug: Solu-MEDROL 125 mg [Solu-Medrol (PF) 125 mg/2 mL dk2 solution for injection (2 mL)] Route: IVP; Site: right forearm; 19:56 Follow up: Response: No adverse reaction; No change in [facility] condition 19:10 Drug: DuoNeb - Albuterol-Ipratropium [...] forearm; 19:55 Follow up: Response: Anxiety decreased [facility] 19:11 Drug: DuoNeb - Albuterol-Ipratropium 3 ml dk2 [ipratropium-albuterol 0.5 mg-3 mg(2.5 mg base)/3 mL nebulization soln (3 mL)] Volume: 3 ml; Route: Nebulizer; 19:55 Follow up: Response: No change in condition [facility] 20:08 Drug: NS 0.9% 3048 ml [sodium chloride 0.9 % intravenous rjh solution] Route: IV; Rate: 999 mL/hr; Site: right forearm; 20:09 Drug: Zosyn 4.5 grams [Zosyn 3.375 gram intravenous rj solution] Route: IVPB; Site: right forearm; 21:28 Follow up: Response: No adverse reaction; IV Status: [facility] Completed infusion; IV Intake: 100ml 21:30 [...] Location: Med/Surg 3(05/07/19 23:07) 2 Room Assignment: [id number](05/07/19 23:07) 2 Diagnosis - BOOP (bronchiolitis obliteran [...] Nostrom, William wln1 Domingo Garcia RN RN [facility] Corrections: (The following items were deleted [...] rce(s) Supporting Document(s) ID Date Data Source [id number] 05/07/2019 05:49:00 PM EST [facility] Name: JHON PATE [facility] Rec #: [id number] : 1975 Age/Sex: 43M Date of Service: 05/07/19 NURSE CHART Nurse's Notes Name: Jhon Pate Age: 43 yrs Sex: Male : 1975 Arrival Date: 05/07/2019 Time: 17:49 Bed 11 Private MD: Mateo Rodríguez S Diagnosis: BOOP (bronchiolitis obliteran with organizing pneumonia);Acute respiratory failure Presentation: 05/07 17:55 Transition of care: patient was not received from another [facility] setting of care. Presenting complaint: Patient states - 2 days SOB discharged from [facility] acute rehab 3 weeks ago was here for respiratory failure CIDP. Patient denies any travel outside the [place] in the last 30 days. Patient denies exposure to sick international traveler in last 30 days. 17:55 Method Of Arrival: Walk-In [facility] 17:55 Acuity: Emergent - 2 [facility] Triage Assessment: 17:56 The patient appears distressed, The patient is cooperative. 6 Patient states the pain is currently a 10 / 10 The patient complains of pain in across chest. The patient states the pain began 2 days. The quality of the pain is described as pressure, sharp, The pain is described as continuous. 23:59 SEPSIS SCREEN: A Confirmed or Suspected Infection is [facility] Unknown, their RR rate is >20. [...] he/she has never smoked tobacco. Preferred Language: Italian. Screenin:09 AUDIT 1. How often do you have a drink containing alcohol? [facility] 2 to 4 times a month [...] Rhythm is sinus tachycardia Chest pain is [facility] denied. 23:13 The patient is not going to the ICU. jw4 Vital Signs: 17:57 Weight 101.6 kg; Height 5 ft. 8 in. (172.72 cm); sm6 17:57 BP 152 / 107; Pulse 123; Resp 26; Pulse Ox 95% on R/A; sm6 19:44 BP 147 / 89; Pulse 119; Resp 20; Pulse Ox 92% on R/A; Pain [facility] 10/10; 21:32 BP 147 / 94; Pulse 120; Resp 18; Pulse Ox 96% on 2 lpm NC; [facility] 23:07 BP 134 / 98; Pulse 122; Resp 25; Pulse Ox 94% on 2 lpm NC; jw4 Pain 10/10; 23:52 BP 138 / 88; Pulse 117; Resp 24; Pulse Ox 94% on 2 lpm NC; [facility] Pain 5/10; 17:57 Body Mass Index 34.06 (101.60 kg, 172.72 cm) [facility] Vitals: 19:48 1st contact with pt, pt's neb treatment is completed, pt [facility] still has audible wheezes and denies any relief from shortness of breath, 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 20:11 pt medicated with 1st of 3L NS bolus and 4.5 gms Zosyn IVPB [facility] per md's orders. 20:55 This RN went into pt's room to hand the 2nd antibiotic [facility] ordered for pt, pt sts the IV pump was beeping and someone came into the room and stopped the beeping, apparently this person stopped the antibiotic infusion before it was completed, restarted Zosyn as ordered. 21:32 pt visiting with family and talking on his phone in [facility] complete sentences without respiratory difficulty, vanco [...] infusing per MD's orders, preparing pt for [facility] admission. 23:44 pt now has audible wheezes, no respiratory meds ordered on [facility] admission orders, call out for Dr. Ellyn friedman. 23:52 pt sts his chest pain is better at 5/10. [facility] 23:53 pt medicated with 50 mcg Fentanyl IVP for pt's c/o [facility] increasing chest pain at 6/10, pt [...] 19:44 Domingo Garcia RN is Primary Nurse. [facility] 20:33 Kike Norton MD is Hospitalizing Provider. [facility] 23:09 CXR 1 View (Pa OR Ap) Sent. [facility] 23:52 No procedures ordered. [facility] 23:59 Radiology: a portable X-ray was completed at 23:09. [facility] Administered Medications: 19:10 Drug: Solu-MEDROL 125 mg [Solu-Medrol (PF) 125 mg/2 mL dk2 solution for injection (2 mL)] Route: IVP; Site: right forearm; 19:56 Follow up: Response: No adverse reaction; No change in [facility] condition 19:10 Drug: DuoNeb - Albuterol-Ipratropium [...] forearm; 19:55 Follow up: Response: Anxiety decreased [facility] 19:11 Drug: DuoNeb - Albuterol-Ipratropium 3 ml dk2 [ipratropium-albuterol 0.5 mg-3 mg(2.5 mg base)/3 mL nebulization soln (3 mL)] Volume: 3 ml; Route: Nebulizer; 19:55 Follow up: Response: No change in condition [facility] 20:08 Drug: NS 0.9% 3048 ml [sodium chloride 0.9 % intravenous [facility] solution] Route: IV; Rate: 999 mL/hr; Site: right forearm; 20:09 Drug: Zosyn 4.5 grams [Zosyn 3.375 gram intravenous [facility] solution] Route: IVPB; Site: right forearm; 21:28 Follow up: Response: No adverse reaction; IV Status: [facility] Completed infusion; IV Intake: 100ml 21:30 Drug: vancomycin 1 grams [vancomycin 1,000 mg intravenous [facility] injection] Route: IVPB; Infused Over: 2 hrs; Site: right forearm; 23:51 Drug: fentaNYL (PF) 50 mcg [fentanyl (PF) 50 mcg/mL [facility] injection solution (1 mL)] Route: IVP; Site: right forearm; Intake: 21:28 IV: 100ml; Total: 100ml. [facility] Outcome: 20:34 Decision to Hospitalize by Provider. [facility] 23:59 Patient verbalized understanding of disposition [facility] instructions. Patient has no functional deficits. [...] Noe Xiong wln1 Domingo Garcia RN RN [facility] Name Value Range Interpretation Code Description Data Agueda rce(s) Supporting Document(s) ID Date Data Source [id number] 05/14/2019 02:20:00 PM [facility] Value Range Interpretation Code Description Data Agueda rce(s) Supporting Document(s) DNA (Double Stranded) Ab res <30.0 Normal (applies to non-numeric results) [facility] Negative: <3 0.0 IU/mL Borderline Positive: 30.0 - 75.0 IU/mL Positive: >75.0 IU/mL Results were obtained with the [employer] Health[employer] Lite dsDNA SC SHANTI assay on the [employer]. Test performed [place] [address] ID Date Data Source [id number] 05/14/2019 02:20:00 PM [facility] Value Range Interpretation Code Description Data Agueda rce(s) Supporting Document(s) ANCA Myeloperoxidase IgG res Normal (applies to non-numeric results) [facility] REFERENCE VALUE------ <0.4 (Negative) ANCA Proteinase3 IgG result Normal (applies to non-numeric results) [facility] REFERENCE VALUE------ <0.4 (Negative) Test Performed by: [address] [place] [address] Product Development Chemist: Noe Williamson M.D. Ph.D.; CLIA# [id number] ID Date Data Source [id number] 05/14/2019 02:20:00 PM [facility] Value Range Interpretation Code Description Data Agueda rce(s) Supporting Document(s) Angiotensin Conv Enz,Serum res 24 U/L 16 - 85 N ormal (applies to non-numeric results) [facility] Test Performed by: [facility] [place] [id number] Product Development Chemist: Noe Williamson M.D. Ph.D.; CLIA# [id number] ID Date Data Source [id number] 05/17/2019 03:19:00 PM [facility] Name Value Range Interpretation Code Description Data Agueda rce(s) Supporting Document(s) Pyruvic Acid 0.08-0.16 [facility] Pyruvic Acid 0.7-1.4 [facility] ADDITIONAL INFORMATIO N This test was developed and its performance characteristics determined by [facility] in a manner consistent with CLIA requirements. This test has not been cleared or approved by the U.S. Food and Drug Administration. Test Performed by: [place] [address] Product Development Chemist: Noe Williamson M.D. Ph.D.; CLIA# [id number] ID Date Data Source [id number] 05/08/2019 03:09:00 PM [facility] Eh's Test Completed: YMinutes Pressu re Held: 5ABG Site: Right RadialTemperature: 99Initials: FJVOn Oxygen? YOxygen [facility] Name Value Range Interpretation Code Description Data Agueda rce(s) Supporting Document(s) SUBMITTED ON ICE? Normal (applies to non-numeri c results) [facility] Temperature Normal (applies to non-numeric resu lts) [facility] PH 7.35-7.45 Normal (applies to non-numeric resul ts) [facility] PCO2 34 mmHg 32-42 Normal (applies to non-numeric resul ts) [facility] PO2 67 mmHg 75-100 Below low normal [facility] HCO3 20.0-26.0 Normal (applies to non-numeric resul ts) [facility] TCO2 23.0-27.0 Below low normal [facility] Actual Base Excess -2.4-2.3 Below low normal [facility] Standard Base Excess -2.4-2.3 Below low normal [facility] Standard Bicarbonate 22.0-26.0 Normal (applies to non-num emilia results) [facility] Oxygen Saturation 95.0-98.0 Below low normal [facility] Pt on Oxygen? Normal (applies to non-numeric re sults) [facility] %Oxygen Normal (applies to non-numeric results) [facility] Oxygen Liter Flow Normal (applies to non-numeri c results) [facility] %Inspired Oxygen Content 4 % Normal (applies to non -numeric results) [facility] Rt Rate Normal (applies to non-numeric results) [facility] Tidal Volume Normal (applies to non-numeric res ults) [facility] Resp PEEP setting Normal (applies to non-numeri c results) [facility] Assisted Control Mode Normal (applies to non-nu meric results) [facility] IPAP Normal (applies to non-numeric results) [facility] EPAP Normal (applies to non-numeric results) [facility] Pressure Support Setting Normal (applies to non -numeric results) [facility] Blood gas puncture site Normal (applies to non- numeric results) [facility] Eh Test Performed Normal (applies to non-num emilia results) [facility] Pressure Applied Time 5 min Normal (applies to non-nu meric results) [facility] ABG Drawn by Normal (applies to non-numeric res ults) [facility] ID Date Data Source [id number] 05/08/2019 03:10:00 PM EST [facility] Name Value Range Interpretation Code Description Data Agueda rce(s) Supporting Document(s) Lactic Acid 3 Hour Post 0.4-2.0 PH [facility] BARTOLO LINDSEY read back critical info rmation 05/08/19 1508 LAB.SAUCH ID Date Data Source [id number] 05/08/2019 11:01:00 AM [facility] 3 hour post Lactic if elevated? Y Name Value Range Interpretation Code Description Data Agueda rce(s) Supporting Document(s) Lactic Acid 0.4-2.0 PH [facility] alieal BARTOLO LINDSEY read back critical info rmation 05/08/19 1059 DAVID ID Date Data Source [id number] 05/08/2019 04:11:00 PM EST [facility] Name: JHON PATE : 7 Age/Sex: 43M Ordering Provider: Kike Norton MD Med Rec #: [id number] Reg Status: ADM IN Room #: 312-1 Date of Service: 05/08/19 Report Number: [id number] cc:Kike Norton MD; Mateo Rodríguez MD Send Report To: [id number] XRP/XR Chest 2 View [Pa & Lat] [...] Date/Time: 05/08/19 1118 Transcribed Date/Time: 05/08/19 1611 Head Of Housekeeping: CHAU Name Value Range Interpretation Code Description Data Agueda rce(s) Supporting Document(s) ID Date Data Source [id number] 05/09/2019 03:22:00 PM EST [facility] Name Value Range Interpretation Code Description Data Agueda rce(s) Supporting Document(s) Sodium 140 mmol/L 137-145 Normal (applies to non-numeric resul ts) [facility] Potassium 3.5-5.1 Normal (applies to non-numeric resul ts) [facility] Chloride 106 mmol/L 98-112 Normal (applies to non-numeric resul ts) [facility] Carbon Dioxide CO2 22.0-33.0 Below low normal [facility] Anion Gap 4.0-11.0 Above high normal [facility] BUN 15 mg/dL 9-20 Normal (applies to non-numeric resul ts) [facility] Creatinine 0.80-1.50 Normal (applies to non-numeric resul ts) [facility] GFR 63 mL/min >60 Normal (applies to non-numeric resul ts) [facility] Result based on MDRD formula. Glucose Level 159 mg/dL 74-99 Above high normal [facility] The reference range is only applicable w hen fasting. Calcium-Uncorrected 8.4-10.2 Normal (applies to non-nume pako results) [facility] Corrected Calcium 8.4-10.2 Normal (applies to non-numeri c results) [facility] Bilirubin,Total 0.2-1.3 Normal (applies to non-numeric results) [facility] SGOT(AST) 18 U/L 17-59 Normal (applies to non-numeric resul ts) [facility] SGPT(ALT) 53 U/L 21-72 Normal (applies to non-numeric resul ts) [facility] Alkaline Phosphatase 76 U/L 38-126 Normal (applies to non-num emilia results) [facility] can increase Alkaline Phosp le vels up to 2 times the normal adult value. Normal values for children and adolescents are 2 to 3 times the normal adult value. Total Protein 6.3-8.2 Normal (applies to non-numeric re sults) [facility] Albumin 3.5-5.0 Normal (applies to non-numeric resul ts) [facility] ID Date Data Source [id number] 05/09/2019 03:22:00 PM EST [facility] Name Value Range Interpretation Code Description Data Agueda rce(s) Supporting Document(s) C-Reactive Protein,Wide Range <3.00 Above high normal [facility] ID Date Data Source [id number] 05/08/2019 07:35:00 AM EST [facility] Name Value Range Interpretation Code Description Data Agueda rce(s) Supporting Document(s) Troponin I 0.000-0.045 Normal (applies to non-numeric resu lts) [facility] ID Date Data Source [id number] 05/08/2019 07:23:00 AM EST [facility] Name Value Range Interpretation Code Description Data Agueda rce(s) Supporting Document(s) White Blood Count 4.8-10.8 Above high normal [facility] Red Blood Count 4.35-6.08 Normal (applies to non-numeric results) [facility] Hemoglobin 13.0-17.5 Normal (applies to non-numeric resul ts) [facility] Hematocrit 37.7-51.0 Normal (applies to non-numeric resul ts) [facility] Mean Corpuscular Volume 80-94 Normal (applies to non- numeric results) [facility] Mean Corpuscular Hemoglobin 27.0-33.0 Normal (appli es to non-numeric results) [facility] Mean Corpuscular HGB Conc 32.0-36.0 Normal (applies to no n-numeric results) [facility] Red Cell Distribution Width 11.5-14.5 Normal (appli es to non-numeric results) [facility] Platelet Count 291 X10 3/uL 130-450 Normal (applies to non-numeric results) [facility] Mean Platelet Volume 9.6-13.1 Normal (applies to non-num emilia results) [facility] Imm Grans% (AUTO) 0.0-2.0 Normal (applies to non-numeri c results) [facility] Neutrophils % (AUTO) 43.0-75.0 Above high normal [facility] Lymphocytes % (AUTO) 20.5-45.5 Below low normal [facility] Monocytes % (AUTO) 5.5-11.7 Below low normal [facility] Eosinophils % (AUTO) 0.7-4.6 Below low normal [facility] Basophils % (AUTO) 0.2-1.2 Normal (applies to non-numer ic results) [facility] Imm Grans# (AUTO) 0.00-0.50 Normal (applies to non-numeri c results) [facility] Neutrophils # (AUTO) 1.90-7.00 Above high normal [facility] Lymphocytes # (AUTO) 1.30-3.10 Normal (applies to non-num emilia results) [facility] Monocytes # (AUTO) 0.40-0.70 Below low normal [facility] Eosinophils# (AUTO) 0.00-0.30 Normal (applies to non-nume pako results) [facility] Basophils # (AUTO) 0.00-0.10 Normal (applies to non-numer ic results) [facility] ID Date Data Source [id number] 05/08/2019 12:30:00 AM [facility] Name Value Range Interpretation Code Description Data Agueda rce(s) Supporting Document(s) Lactic Acid 3 Hour Post 0.4-2.0 PH [facility] LORIE ANDREWAttila read back critical inform ation 05/08/19 0028 LAB.LACBR ID Date Data Source [id number] 05/08/2019 12:23:00 AM [facility] Name Value Range Interpretation Code Description Data Agueda rce(s) Supporting Document(s) Troponin I 0.000-0.045 Normal (applies to non-numeric resu lts) [facility] ID Date Data Source [id number] 05/07/2019 11:40:00 PM [facility] Name Value Range Interpretation Code Description Data Agueda rce(s) Supporting Document(s) Procalcitonin 0.00-0.24 Normal (applies to non-numeric re sults) [facility] 1.Risk of Progression to severe sepsis a [...] therapy is warranted. ID Date Data Source [id number] 05/07/2019 11:04:00 PM [facility] Name Value Range Interpretation Code Description Data Agueda rce(s) Supporting Document(s) Venous PH 7.31-7.41 Above high normal [facility] VBG PCO2 33 mmHg 42-55 Below low normal [facility] VBG PO2 67 mmHg 30-50 Above high normal [facility] VBG HCO3 24.0-28.0 Below low normal [facility] ID Date Data Source [id number] 05/08/2019 12:55:00 PM [facility] Name: JHON PATE : 7 Age/Sex: 43M Ordering Provider: Austin Levin MD Med Rec #: [id number] Reg Status: ADM IN Room #: 312-1 Date of Service: 05/07/19 Report Number: [id number] cc:Austin Levin MD; Mateo Rodríguez MD Send Report To: [id number] XRP/XR Chest 1 View [Pa OR Ap] [...] Date/Time: 05/08/19 0636 Transcribed Date/Time: 05/08/19 1255 Head Of Housekeeping: LYNETTE Name Value Range Interpretation Code Description Data Agueda rce(s) Supporting Document(s) ID Date Data Source [id number] 05/12/2019 07:19:00 PM [facility] Name Value Range Interpretation Code Description Data [facility] rce(s) Supporting Document(s) Blood Culture-Venous [facility] ID Date Data Source [id number] 05/07/2019 07:53:00 PM [facility] 3 hour post Lactic if elevated? Y Name Value Range Interpretation Code Description Data Agueda rce(s) Supporting Document(s) Lactic Acid 0.4-2.0 PH [facility] pital DR.JASON LEVIN read back critical infor miriam 05/07/191951 LAB.HAR ID Date Data Source [id number] 05/07/2019 08:48:00 PM [facility] 3 hour post Lactic if elevated? Y Not d etectedNot detectedNot detectedNot detectedNot detectedNot detectedNot detectedNot detectedNot detectedNot detectedNot detectedNot detectedNot detectedNot detected Methodology: Multiplexed PCR Reference Range: None detectedNot detectedNot detectedNot detectedNot detected Name Value Range Interpretation Code Description Data Agueda rce(s) Supporting Document(s) ID Date Data Source [id number] 05/12/2019 07:19:00 PM [facility] Name Value Range Interpretation Code Description Data Agueda rce(s) Supporting Document(s) Blood Culture-Venous [facility] ID Date Data Source [id number] 05/07/2019 07:45:00 PM [facility] Name Value Range Interpretation Code Description Data Agueda rce(s) Supporting Document(s) Sodium 139 mmol/L 137-145 Normal (applies to non-numeric resul ts) [facility] Potassium 3.5-5.1 Normal (applies to non-numeric resul ts) [facility] Chloride 104 mmol/L 98-112 Normal (applies to non-numeric resul ts) [facility] Carbon Dioxide CO2 22.0-33.0 Normal (applies to non-numer ic results) [facility] Anion Gap 4.0-11.0 Above high normal [facility] BUN 13 mg/dL 9-20 Normal (applies to non-numeric resul ts) [facility] Creatinine 0.80-1.50 Normal (applies to non-numeric resul ts) [facility] GFR 68 mL/min >60 Normal (applies to non-numeric resul ts) [facility] Result based on MDRD formula.Specimen li pemic, interpret with care. The reference range is only applicable when fasting. Calcium-Uncorrected 8.4-10.2 Normal (applies to non-nume pako results) [facility] Corrected Calcium 8.4-10.2 Normal (applies to non-numeri c results) [facility] Bilirubin,Total 0.2-1.3 Normal (applies to non-numeric results) [facility] Specimen lipemic, interpret with care.Sp ecimen lipemic, interpret with care. Alkaline Phosphatase 97 U/L 38-126 Normal (applies to non-num emilia results) [facility] can increase Alkaline Phosp le vels up to 2 times the normal adult value. Normal values for children and adolescents are 2 to 3 times the normal adult value. Total Protein 6.3-8.2 Normal (applies to non-numeric re sults) [facility] Albumin 3.5-5.0 Normal (applies to non-numeric resul ts) [facility] ID Date Data Source [id number] 05/07/2019 07:45:00 PM [facility] Name Value Range Interpretation Code Description Data Agueda rce(s) Supporting Document(s) Magnesium 1.80-2.40 Normal (applies to non-numeric resul ts) [facility] ID Date Data Source [id number] 05/07/2019 07:45:00 PM [facility] Name Value Range Interpretation Code Description Data Agueda rce(s) Supporting Document(s) Lipase 139 U/L 73-393 Normal (applies to non-numeric resul ts) [facility] ID Date Data Source [id number] 05/07/2019 07:28:00 PM [facility] Name Value Range Interpretation Code Description Data Agueda rce(s) Supporting Document(s) Troponin I 0.000-0.045 Normal (applies to non-numeric resu lts) [facility] ID Date Data Source [id number] 05/07/2019 07:15:00 PM [facility] Name Value Range Interpretation Code Description Data Agueda rce(s) Supporting Document(s) PT 9.4-12.5 Normal (applies to non-numeric results) [facility] INR Normal (applies to non-numeric results) [facility] The use of the INR is restricted to francisco javier ents on stable oral anticoagulant. Therapeutic Range: 2.0-3.0 High Risk Values: 2.5-3.5 ID Date Data Source [id number] 05/07/2019 07:15:00 PM [facility] Name Value Range Interpretation Code Description Data Agueda rce(s) Supporting Document(s) PTT 25.1-36.5 Normal (applies to non-numeric resul ts) [facility] ID Date Data Source [id number] 05/07/2019 07:04:00 PM [facility] Name Value Range Interpretation Code Description Data Agueda rce(s) Supporting Document(s) White Blood Count 4.8-10.8 Normal (applies to non-numeri c results) [facility] Red Blood Count 4.35-6.08 Normal (applies to non-numeric results) [facility] Hemoglobin 13.0-17.5 Normal (applies to non-numeric resul ts) [facility] Hematocrit 37.7-51.0 Normal (applies to non-numeric resul ts) [facility] Mean Corpuscular Volume 80-94 Normal (applies to non- numeric results) [facility] Mean Corpuscular Hemoglobin 27.0-33.0 Normal (appli es to non-numeric results) [facility] Mean Corpuscular HGB Conc 32.0-36.0 Normal (applies to no n-numeric results) [facility] Red Cell Distribution Width 11.5-14.5 Normal (appli es to non-numeric results) [facility] Platelet Count 342 X10 3/uL 130-450 Normal (applies to non-numeric results) [facility] Mean Platelet Volume 9.6-13.1 Normal (applies to non-num emilia results) [facility] Imm Grans% (AUTO) 0.0-2.0 Normal (applies to non-numeri c results) [facility] Neutrophils % (AUTO) 43.0-75.0 Normal (applies to non-num emilia results) [facility] Lymphocytes % (AUTO) 20.5-45.5 Normal (applies to non-num emilia results) [facility] Monocytes % (AUTO) 5.5-11.7 Normal (applies to non-numer ic results) [facility] Eosinophils % (AUTO) 0.7-4.6 Normal (applies to non-num emilia results) [facility] Basophils % (AUTO) 0.2-1.2 Normal (applies to non-numer ic results) [facility] Imm Grans# (AUTO) 0.00-0.50 Normal (applies to non-numeri c results) [facility] Neutrophils # (AUTO) 1.90-7.00 Normal (applies to non-num emilia results) [facility] Lymphocytes # (AUTO) 1.30-3.10 Above high normal [facility] Monocytes # (AUTO) 0.40-0.70 Above high normal [facility] Eosinophils# (AUTO) 0.00-0.30 Normal (applies to non-nume pako results) [facility] Basophils # (AUTO) 0.00-0.10 Normal (applies to non-numer ic results) [facility] ID Date Data Source [id number] 05/08/2019 04:14:00 PM [facility] Name: JHON PATE : 7 Age/Sex: 43M Ordering Provider: Kevin Crocker MD Med Rec #: [id number] Reg Status:ADM IN Room #: 312-1 Date of Service: 05/07/19 Report Number: [id number] cc: Kevin Crocker MD; Kike Norton MD; Mateo Rodríguez MD Send Report To: SINUS TACHYCARDIA NONSPECIFIC T WAVE CHANGES GROSSLY UNCHANGED FROM PRIOR ON SAME DAY Physician Forest Worker: Matias Vu D.O. ECG HEART RATE: 124 /min ECG RR INTERVAL: 482 ms ECG P DURATION: 114 ms ECG QRS DURATION: 102 ms ECG NJ INTERVAL: 145 ms ECG QT INTERVAL: 300 ms ECG QTC INTERVAL: 412 ms Q-T dispersion: ms ECG P AXIS: 39 deg ECG QRS AXIS: -6 deg ECG T AXIS: -3 deg REPORT SIGNATURE ON FILE 05/08/191613 Reported By: Matias Vu DO <Electronically signed by Matias Vu DO in OV> * <<Signature on File>> Exam Date/Time: 05/07/19 1826 Order #: [id number] Dictation Date/Time: 05/08/191613 Transcribed Date/Time: 05/08/191613 Head Of Housekeeping: TOBY Name Value Range Interpretation Code Description Data Agueda rce(s) Supporting Document(s) ID Date Data Source [id number] 05/08/2019 04:13:00 PM [facility] Name: JHON PATE : 7 Age/Sex: 43M Ordering Provider: Kevin Crocker MD Med Rec #: [id number] Reg Status:ADM IN Room #: 312-1 Date of Service: 05/07/19 Report Number: [id number] cc: Kevin Crocker MD; Kike Norton MD; Mateo Rodríguez MD Send Report To: SINUS TACHYCARDIA COMPARED TO PRIOR STUDY ON 03/19/2019 THE PATIENT IS NOW TACHYCARDIC Physician Forest Worker: Matias Vu D.O. ECG HEART RATE: 129 /min ECG RR INTERVAL: 465 ms ECG P DURATION: 117 ms ECG QRS DURATION: 98 ms ECG NJ INTERVAL: 147 ms ECG QT INTERVAL: 298 ms ECG QTC INTERVAL: 418 ms Q-T dispersion: ms ECG P AXIS: 40 deg ECG QRS AXIS: -9 deg ECG T AXIS: 1 deg REPORT SIGNATURE ON FILE 05/08/19 161 Reported By: Matias Vu DO <Electronically signed by Matias Vu DO in OV> * <<Signature on File>> Exam Date/Time: 05/07/19 1805 Order #: [id number] Dictation Date/Time: 05/08/191612 Transcribed Date/Time: 05/08/191612 Head Of Housekeeping: TOBY Name Value Range Interpretation Code Description Data Agueda rce(s) Supporting Document(s) Procedure Social History Code Duration Value Status Description Data Source(s ) Smoking 06/10/2020 12:00:00 AM EST Never Smoker completed Never S moker eCW1 ([facility]) Smoking 06/10/2020 12:00:00 AM EST Never Smoker completed Never S moker eCW1 ([facility]) Smoking 06/10/2020 12:00:00 AM EST Never Smoker completed Never S moker eCW1 ([facility]) Alcohol intake 06/09/2020 12:00:00 AM EST Yes completed [facility] Smoking 06/09/2020 12:00:00 AM EST Never smoker completed Never s moker [facility] Smoking 05/27/2020 12:00:00 AM EST Never Smoker completed Never S moker eCW1 ([facility]) Smoking 05/27/2020 12:00:00 AM EST Never Smoker completed Never S moker eCW1 ([facility]) Smoking 05/27/2020 12:00:00 AM EST Patient has never smoked co mpleted Patient has never smoked [facility] ([facility] ) Smoking 04/20/2020 12:00:00 AM EST Never Smoker completed Never S moker eCW1 ([facility]) Smoking 04/20/2020 12:00:00 AM EST Never Smoker completed Never S moker eCW1 ([facility]) Smoking 04/20/2020 12:00:00 AM EST Never Smoker completed Never S moker eCW1 ([facility]) Smoking 04/20/2020 12:00:00 AM EST Never Smoker completed Never S moker eCW1 ([facility]) Smoking 04/20/2020 12:00:00 AM EST Never Smoker completed Never S moker eCW1 ([facility]) Smoking 04/20/2020 12:00:00 AM EST Never Smoker completed Never S moker eCW1 ([facility]) Smoking 04/20/2020 12:00:00 AM EST Never Smoker completed Never S moker eCW1 ([facility]) Smoking 03/30/2020 12:00:00 AM EDT Never Smoker completed Never S moker eCW1 ([facility]) Smoking 03/30/2020 12:00:00 AM EDT Never Smoker completed Never S moker eCW1 ([facility]) Smoking 03/30/2020 12:00:00 AM EDT Never Smoker completed Never S moker eCW1 ([facility]) Smoking 03/30/2020 12:00:00 AM EDT Never Smoker completed Never S moker eCW1 ([facility]) Alcohol intake 03/17/2020 12:00:00 AM EDT Current drinker of al cohol (finding) completed Current drinker of alcohol (finding) [facility] Tobacco use and exposure 03/17/2020 12:00:00 AM EDT Never used co mpleted Never used [facility] Smoking 03/17/2020 12:00:00 AM EDT Never smoker completed Never s [facility] Alcohol intake 02/07/2020 12:00:00 AM EDT Current drinker of al cohol (finding) completed Current drinker of alcohol (finding) [facility] Alcohol intake 01/03/2020 12:00:00 AM EDT Current drinker of al cohol (finding) completed Current drinker of alcohol (finding) [facility] Smoking 01/03/2020 12:00:00 AM EDT Never smoker completed Never s [facility] Smoking 12/31/2019 12:00:00 AM EDT Never Smoker completed Never S moker eCW1 ([facility]) Smoking 12/31/2019 12:00:00 AM EDT Never Smoker completed Never S moker eCW1 ([facility]) Smoking 12/31/2019 12:00:00 AM EDT Never Smoker completed Never S moker eCW1 ([facility]) Smoking 12/31/2019 12:00:00 AM EDT Never Smoker completed Never S moker eCW1 ([facility]) Smoking 12/31/2019 12:00:00 AM EDT Never Smoker completed Never S moker eCW1 ([facility]) Smoking 11/25/2019 12:00:00 AM EDT Never Smoker completed Never S moker eCW1 ([facility]) Smoking 11/25/2019 12:00:00 AM EDT Never Smoker completed Never S moker eCW1 ([facility]) Smoking 11/25/2019 12:00:00 AM EDT Never Smoker completed Never S moker eCW1 ([facility]) Smoking 11/25/2019 12:00:00 AM EDT Never Smoker completed Never S moker eCW1 ([facility]) Smoking 11/25/2019 12:00:00 AM EDT Never Smoker completed Never S moker eCW1 ([facility]) Smoking 11/25/2019 12:00:00 AM EDT Never Smoker completed Never S moker eCW1 ([facility]) Smoking 11/19/2019 12:00:00 AM EDT Never Smoker completed Never S moker eCW1 ([facility]) Vital Signs ID Date Data Source UNK Name Value Range Interpretation Code Description Data Source(s) Diastolic blood pressure 70 mm[Hg] 70 mm[Hg] eCW1 ([facility]) Systolic blood pressure 118 mm[Hg] 118 mm[Hg] e CW1 ([facility]) Body temperature 97.9 [degF] 97.9 [degF] eCW1 ( [facility]) Respiratory rate 17 /min 17 /min [facility]CW[facility] ([facility] Heart rate /min eCW1 ([facility]) Body mass index (BMI) [Ratio] 40.14 kg/m2 40.14 kg/m2 eCW1 ([facility]) Body height 68 [in_i] 68 [in_i] eCW1 ([facility]) Body weight 264 [lb_av] 264 [lb_av] eCW1 ([facility]) Oxygen saturation in Arterial blood by Pulse oximetry 94 % 94 % [facility] Body mass index (BMI) [Ratio] 39.68 kg/m2 39.68 kg/m2 [facility] Body weight 118.389 kg 118.389 kg [facility] Body height 172.7 cm 172.7 cm [facility] Heart rate 88 /min 88 /min [facility] Diastolic blood pressure 62 mm[Hg] 62 mm[Hg] [facility] Systolic blood pressure 112 mm[Hg] 112 mm[Hg] [facility] Body surface area Derived from formula 2.27 m2 2.27 m2 [facility] ([facility], ) Body weight 115.668 kg 115.668 kg [facility] ([facility] ) [place] body weight 154 [lb_av] 154 [lb_av] [facility] ([facility], ) Body mass index (BMI) [Ratio] 38.8 kg/m2 38.8 k g/m2 [facility] ([facility], ) Body weight 255.00 [lb_av] 255.00 [lb_av] [facility] ([facility], ) Body height 68 [in_i] 68 [in_i] [facility] ([facility], ) 5'8" Body temperature 95.5 [degF] 95.5 [degF] [facility] ([facility]) Oxygen saturation in Arterial blood by Pulse oximetry 954 % 954 % [facility] ([facility]) Heart rate 99 /min 99 /min [facility] ([facility]) Diastolic blood pressure 78 mm[Hg] 78 mm[Hg] [facility] ([facility]) Systolic blood pressure 110 mm[Hg] 110 mm[Hg] [facility] ([facility]) Body surface area Derived from formula 2.27 m2 2.27 m2 [facility] ([facility]) Body weight 116.122 kg 116.122 kg [facility] ([facility]) [place] body weight 154 [lb_av] 154 [lb_av] [facility] Body mass index (BMI) [Ratio] 38.9 kg/m2 38.9 k g/m2 [facility] ([facility]) Body weight 256.00 [lb_av] 256.00 [lb_av] [facility] Body height 68 [in_i] 68 [in_i] [facility] ([facility]) 5'8" Body temperature 97.2 [degF] 97.2 [degF] [facility] ([facility]) Oxygen saturation in Arterial blood by Pulse oximetry 954 % 954 % [facility] ([facility]) Heart rate 108 /min 108 /min [facility] ([facility]) Diastolic blood pressure 84 mm[Hg] 84 mm[Hg] [facility] ([facility]) Systolic blood pressure 122 mm[Hg] 122 mm[Hg] [facility] ([facility]) Heart rate 113 /min 113 /min [facility] ([facility]) Diastolic blood pressure 80 mm[Hg] 80 mm[Hg] [facility] ([facility]) Systolic blood pressure 112 mm[Hg] 112 mm[Hg] [facility] ([facility]) Body surface area Derived from formula 2.27 m2 2.27 m2 [facility] [facility] Body weight 116.575 kg 116.575 kg [facility] ([facility]) [place] body weight 154 [lb_av] 154 [lb_av] [facility] T ([facility]) Body mass index (BMI) [Ratio] 39.1 kg/m2 39.1 k g/m2 [facility] ([facility]) Body weight 257.00 [lb_av] 257.00 [lb_av] MED[facility] T ([facility]) Body height 68 [in_i] 68 [in_i] [facility] ([facility]) 5'8" Oxygen saturation in Arterial blood by Pulse oximetry 933 % 933 % [facility] ([facility]) Systolic blood pressure 122 mm[Hg] 122 mm[Hg] e CW1 ([facility]) Body temperature 97.5 [degF] 97.5 [degF] eCW1 ( [facility]) Respiratory rate 18 /min 18 /min eCW1 ([facility]) Heart rate /min eCW1 ([facility]) Body mass index (BMI) [Ratio] 39.68 kg/m2 39.68 kg/m2 W1 ([facility]) Body height 68 [in_i] 68 [in_i] eCW1 ([facility]) Body weight 261 [lb_av] 261 [lb_av] eCW1 ([facility]) Diastolic blood pressure 80 mm[Hg] 80 mm[Hg] eCW1 ([facility]) Body weight 114.307 kg 114.307 kg [facility] ([facility]) [place] body weight 154 [lb_av] 154 [lb_av] MED[facility] T ([facility]) Body mass index (BMI) [Ratio] 38.3 kg/m2 38.3 k g/m2 [facility] ([facility]) Body weight 252.00 [lb_av] 252.00 [lb_av] [facility] Body height 68 [in_i] 68 [in_i] [facility] ([facility]) 5'8" Body temperature 97.4 [degF] 97.4 [degF] [facility] ([facility]) Oxygen saturation in Arterial blood by Pulse oximetry 953 % 953 % [facility] ([facility]) Heart rate 118 /min 118 /min [facility] ([facility]) Diastolic blood pressure 82 mm[Hg] 82 mm[Hg] [facility] ([facility]) Systolic blood pressure 110 mm[Hg] 110 mm[Hg] [facility] Body weight 115.668 kg 115.668 kg [facility] ([facility]) [place] body weight 154 [lb_av] 154 [lb_av] [facility] Body mass index (BMI) [Ratio] 38.8 kg/m2 38.8 k g/m2 [facility] ([facility]) Body weight 255.00 [lb_av] 255.00 [lb_av] [facility] Body height 68 [in_i] 68 [in_i] [facility] ([facility]) 5'8" Body temperature 96.3 [degF] 96.3 [degF] [facility] ([facility]) Oxygen saturation in Arterial blood by Pulse oximetry 963 % 963 % [facility] ([facility]) Heart rate 109 /min 109 /min [facility] ([facility]) Diastolic blood pressure 82 mm[Hg] 82 mm[Hg] [facility] ([facility]) Systolic blood pressure 110 mm[Hg] 110 mm[Hg] [facility] Diastolic blood pressure 54 mm[Hg] 54 mm[Hg] eCW1 ([facility]) Systolic blood pressure 124 mm[Hg] 124 mm[Hg] e CW1 ([facility]) Body temperature 97.0 [degF] 97.0 [degF] eCW1 ( [facility]) Respiratory rate 21 /min 21 /min eCW1 ([facility]) Heart rate /min eCW1 ([facility]) Body mass index (BMI) [Ratio] 38.92 kg/m2 38.92 kg/m2 eCW1 ([facility]) Body height 68 [in_i] 68 [in_i] eCW1 ([facility]) Body weight 256 [lb_av] 256 [lb_av] eCW1 ([facility]) Diastolic blood pressure 80 mm[Hg] 80 mm[Hg] eCW1 ([facility]) Systolic blood pressure 110 mm[Hg] 110 mm[Hg] e CW1 ([facility]) Body temperature 97.2 [degF] 97.2 [degF] eCW1 ( [facility]) Respiratory rate 20 /min 20 /min eCW1 ([facility]) Heart rate 90 /min 90 /min eCW1 ([facility]) Body mass index (BMI) [Ratio] 38.46 kg/m2 38.46 kg/m2 eCW1 ([facility]) Body height 68 [in_i] 68 [in_i] eCW1 ([facility] [place] [facility]) Body weight 253 [lb_av] 253 [lb_av] eCW1 ([facility]) Body weight 115.668 kg 115.668 kg [facility] ([facility], ) [place] body weight 154 [lb_av] 154 [lb_av] MED[facility] T ([facility], ) Body mass index (BMI) [Ratio] 38.8 kg/m2 38.8 k g/m2 [facility] ([facility], ) Body weight 255.00 [lb_av] 255.00 [lb_av] MED[facility] T ([facility], ) Body height 68 [in_i] 68 [in_i] [facility] ([facility], ) 5'8" Body temperature 98.4 [degF] 98.4 [degF] [facility] ([facility], ) Oxygen saturation in Arterial blood by Pulse oximetry 952 % 952 % [facility] ([facility], ) Heart rate 88 /min 88 /min [facility] ([facility], ) Diastolic blood pressure 70 mm[Hg] 70 mm[Hg] MEDENT ([facility], ) Systolic blood pressure 120 mm[Hg] 120 mm[Hg] M EDCYNDI ([facility], ) Diastolic blood pressure 78 mm[Hg] 78 mm[Hg] eCW1 ([facility]) Systolic blood pressure 124 mm[Hg] 124 mm[Hg] e CW1 ([facility]) Body temperature 98.1 [degF] 98.1 [degF] eCW1 ( [facility]) Respiratory rate 24 /min 24 /min eCW1 ([facility]) Heart rate 118 /min 118 /min eCW1 ([facility]) Body mass index (BMI) [Ratio] 38.92 kg/m2 38.92 kg/m2 W1 ([facility]) Body height 68 [in_i] 68 [in_i] eCW1 ([facility] [place] [facility]) Body weight 256 [lb_av] 256 [lb_av] eCW1 ([facility]) Diastolic blood pressure 80 mm[Hg] 80 mm[Hg] eCW1 ([facility]) Systolic blood pressure 122 mm[Hg] 122 mm[Hg] e CW1 ([facility]) Body temperature 97.4 [degF] 97.4 [degF] eCW1 ( [facility]) Respiratory rate 18 /min 18 /min eCW1 ([facility]) Heart rate 88 /min 88 /min eCW1 ([facility]) Body mass index (BMI) [Ratio] 38.62 kg/m2 38.62 kg/m2 eCW1 ([facility]) Body height 68 [in_i] 68 [in_i] eCW1 ([facility] [place] [facility]) Body weight 254 [lb_av] 254 [lb_av] eCW1 ([facility]) Diastolic blood pressure 80 mm[Hg] 80 mm[Hg] eCW1 ([facility]) Systolic blood pressure 144 mm[Hg] 144 mm[Hg] e CW1 ([facility]) Body temperature 97.2 [degF] 97.2 [degF] eCW1 ( [facility]) Respiratory rate 18 /min 18 /min eCW1 ([facility]) Heart rate 134 /min 134 /min eCW1 ([facility]) Body mass index (BMI) [Ratio] 37.55 kg/m2 37.55 kg/m2 eCW1 ([facility]) Body height 68 [in_us] 68 [in_us] eCW1 ([facility]) Body weight Measured 247 [lb_av] 247 [lb_av] eC W1 ([facility]) Body weight 112.946 kg 112.946 kg [facility] ([facility], ) Body mass index (BMI) [Ratio] 37.9 kg/m2 37.9 k g/m2 [facility] ([facility]) Body weight 249.00 [lb_av] 249.00 [lb_av] MED[facility] T ([facility]) Body height 68 [in_i] 68 [in_i] [facility] ([facility]) 5'8" Body temperature 97.0 [degF] 97.0 [degF] [facility] ([facility]) Oxygen saturation in Arterial blood by Pulse oximetry 96 % 96 % [facility] ([facility]) Heart rate 79 /min 79 /min [facility] ([facility]) Diastolic blood pressure 78 mm[Hg] 78 mm[Hg] [facility] ([facility]) Systolic blood pressure 128 mm[Hg] 128 mm[Hg] M EDENT ([facility]) Body mass index (BMI) [Ratio] 0.8 kg/m2 0.8 kg /m2 [facility] ([facility]) Body weight 68.00 [lb_av] 68.00 [lb_av] [facility] Body height 240 [in_i] 240 [in_i] [facility] 20'0" Respiratory rate 12 /min 12 /min [facility] ( [facility]) Body weight 107.503 kg 107.503 kg [facility] ([facility]) Body mass index (BMI) [Ratio] 36.0 kg/m2 36.0 k g/m2 [facility] ([facility]) Body weight 237.00 [lb_av] 237.00 [lb_av] MEDEN T ([facility]) Body height 68 [in_i] 68 [in_i] [facility] ([facility]) 5'8" Oxygen saturation in Arterial blood by Pulse oximetry 94 % 94 % [facility] ([facility]) Heart rate 112 /min 112 /min [facility] ([facility]) Diastolic blood pressure 80 mm[Hg] 80 mm[Hg] [facility] ([facility]) Systolic blood pressure 120 mm[Hg] 120 mm[Hg] [facility]) Diastolic blood pressure 88 mm[Hg] 88 mm[Hg] eCW1 ([facility]) Systolic blood pressure 132 mm[Hg] 132 mm[Hg] e CW1 ([facility]) Body temperature 97.8 [degF] 97.8 [degF] eCW1 ( [facility]) Respiratory rate 18 /min 18 /min eCW1 ([facility]) Heart rate 106 /min 106 /min eCW1 ([facility]) Body mass index (BMI) [Ratio] 36.94 kg/m2 36.94 kg/m2 W1 ([facility]) Body height 68 [in_us] 68 [in_us] eCW1 ([facility]) Body weight Measured 243 [lb_av] 243 [lb_av] eC W1 ([facility]) Body temperature 97.9 [degF] 97.9 [degF] eCW1 ( [facility]) Body height 68 [in_us] 68 [in_us] eCW1 ([facility]) Body weight Measured 225 [lb_av] 225 [lb_av] eC W1 ([facility]) Body height 68 [in_us] 68 [in_us] eCW1 ([facility]) Body mass index (BMI) [Ratio] 34.21 kg/m2 34.21 kg/m2 eCW1 ([facility]) Heart rate 100 /min 100 /min eCW1 ([facility]) Respiratory rate 16 /min 16 /min eCW1 ([facility]) Body temperature 97.8 [degF] 97.8 [degF] eCW1 ( [facility]) Systolic blood pressure 132 mm[Hg] 132 mm[Hg] e CW1 ([facility]) Diastolic blood pressure 88 mm[Hg] 88 mm[Hg] eCW1 ([facility]) Body weight Measured 224 [lb_av] 224 [lb_av] eC W1 ([facility]) Body height 68 [in_us] 68 [in_us] eCW1 ([facility]) Body mass index (BMI) [Ratio] 34.06 kg/m2 34.06 kg/m2 eCW1 ([facility]) Heart rate 112 /min 112 /min eCW1 ([facility]) Respiratory rate 18 /min 18 /min eCW1 ([facility]) Body temperature 98.4 [degF] 98.4 [degF] eCW1 ( [facility]) Systolic blood pressure 138 mm[Hg] 138 mm[Hg] e CW1 ([facility]) Diastolic blood pressure 78 mm[Hg] 78 mm[Hg] eCW1 ([facility]) ID Date Data Source [id number] 03/24/2020 09:18:31 AM [facility] Name Value Range Interpretation Code Description Data Source(s) WEIGHT RECORDED 247 lb 247 lb [facility] Body height Measured 68 in 68 in [facility] ID Date Data Source [id number] 02/10/2020 09:50:44 AM [facility] Name Value Range Interpretation Code Description Data Source(s) WEIGHT RECORDED 199 lb 199 lb [facility] Body height Measured 67.99 in 67.99 in [facility] ID Date Data Source [id number] 01/06/2020 09:56:00 AM EDT [facility] Name Value Range Interpretation Code Description Data Source(s) Weight (Calculated Kilograms) 106.14 106.14 [facility] Height (Calculated Centimeters) 172.72 172. 72 [facility] Body Mass Index (BMI) 35.6 35.6 [facility] ID Date Data Source [id number] 01/06/2020 09:21:12 AM [facility] Name Value Range Interpretation Code Description Data Source(s) WEIGHT RECORDED 199 lb 199 lb [facility] Body height Measured 67.99 in 67.99 in [facility] ID Date Data Source [id number] 11/08/2019 11:32:00 AM [facility] Name Value Range Interpretation Code Description Data Source(s) Weight (Calculated Kilograms) 106.14 106.14 [facility] Height (Calculated Centimeters) 172.72 172. 72 [facility] Body Mass Index (BMI) 35.6 35.6 [facility] ID Date Data Source [id number] 10/03/2019 08:44:00 AM [facility] Name Value Range Interpretation Code Description Data Source(s) Weight (Calculated Kilograms) 106.14 106.14 [facility] Height (Calculated Centimeters) 172.72 172. 72 [facility] Body Mass Index (BMI) 35.6 35.6 [facility] Weight (Calculated Kilograms) 106.14 106.14 [facility] Height (Calculated Centimeters) 172.72 172. 72 [facility] Body Mass Index (BMI) 35.6 35.6 [facility] ID Date Data Source [id number] 09/20/2019 12:41:00 PM [facility] Name Value Range Interpretation Code Description Data Source(s) Weight (Calculated Kilograms) 106.14 106.14 [facility] Height (Calculated Centimeters) 172.72 172. 72 [facility] Body Mass Index (BMI) 35.6 35.6 [facility] ID Date Data Source [id number] 10/02/2019 09:02:00 AM [facility] Name Value Range Interpretation Code Description Data Source(s) Weight (Calculated Kilograms) 106.14 106.14 [facility] Height (Calculated Centimeters) 172.72 172. 72 [facility] Body Mass Index (BMI) 35.6 35.6 [facility] Weight (Calculated Kilograms) 106.14 106.14 [facility] Height (Calculated Centimeters) 172.72 172. 72 [facility] Body Mass Index (BMI) 35.6 35.6 [facility] Weight (Calculated Kilograms) 106.14 106.14 [facility] Height (Calculated Centimeters) 172.72 172. 72 [facility] Body Mass Index (BMI) 35.[address] [facility] Hospital ID Date Data Source [id number] 09/11/2019 10:00:00 AM EDT [facility] Name Value Range Interpretation Code Description Data Source(s) Weight (Calculated Kilograms) 106.14 106.14 [facility] Height (Calculated Centimeters) 172.72 172. 72 [facility] Body Mass Index (BMI) 35.6 35.6 [facility] Weight (Calculated Kilograms) 106.14 106.14 [facility] Height (Calculated Centimeters) 172.72 172. 72 [facility] Body Mass Index (BMI) 35.6 35.6 [facility] Weight (Calculated Kilograms) 106.14 106.14 [facility] Height (Calculated Centimeters) 172.72 172. 72 [facility] Body Mass Index (BMI) 35.6 35.6 [facility] ID Date Data Source [id number] 09/12/2019 09:58:00 AM EDT [facility] Hospital Name Value Range Interpretation Code Description Data Source(s) Weight (Calculated Kilograms) 106.14 106.14 [facility] Height (Calculated Centimeters) 172.72 172. 72 [facility] Body Mass Index (BMI) 35.[address] [facility] Hospital ID Date Data Source [id number] 09/16/2019 06:45:00 AM EDT [facility] Name Value Range Interpretation Code Description Data Source(s) Weight (Calculated Kilograms) 106.14 106.14 [facility] Height (Calculated Centimeters) 172.72 172. 72 [facility] Body Mass Index (BMI) 35.6 35.6 [facility] Weight (Calculated Kilograms) 106.14 106.14 [facility] Height (Calculated Centimeters) 172.72 172. 72 [facility] Body Mass Index (BMI) 35.6 35.6 [facility] Weight (Calculated Kilograms) 106.14 106.14 [facility] Height (Calculated Centimeters) 172.72 172. 72 [facility] Body Mass Index (BMI) 35.6 35.6 [facility] ID Date Data Source [id number] 10/03/2019 11:20:00 AM EDT [facility] Hospital Name Value Range Interpretation Code Description Data Source(s) Weight (Calculated Kilograms) 106.14 106.14 [facility] Height (Calculated Centimeters) 172.72 172. 72 [facility] Body Mass Index (BMI) 35.6 35.6 [facility] ID Date Data Source [id number] 07/20/2019 12:07:00 AM EST [facility] Hospital Name Value Range Interpretation Code Description Data Source(s) Weight (Calculated Kilograms) 106.14 106.14 [facility] Height (Calculated Centimeters) 172.72 172. 72 [facility] Body Mass Index (BMI) 35.6 35.6 [facility] ID Date Data Source [id number] 10/03/2019 11:20:00 AM T [facility] Name Value Range Interpretation Code Description Data Source(s) Weight (Calculated Kilograms) 106.14 106.14 [facility] Height (Calculated Centimeters) 172.72 172. 72 [facility] Body Mass Index (BMI) 35.6 35.6 [facility] ID Date Data Source [id number] 07/10/2019 07:07:00 AM EST [facility] Hospital Name Value Range Interpretation Code Description Data Source(s) Weight Measurement Method 5 5 [facility] Weight (Calculated Kilograms) 106.14 106.14 [facility] Weight 3744 3744 [facility] Temperature Source 7 7 [facility] Temperature 98.0 98.0 [facility] Respiratory Effort 15 15 [facility] Respiratory Rate 18 18 [facility] Pulse Assessment Method 4 4 [facility] Pulse Rate 103 103 [facility] Height (Calculated Centimeters) 172.72 172. 72 [facility] Height 68 68 [facility] Blood Pressure 137/91 137/91 [facility] Body Mass Index (BMI) 35.6 35.6 [facility] Weight Measurement Method 5 5 [facility] Weight (Calculated Kilograms) 106.14 106.14 [facility] Weight 3744 3744 [facility] Temperature Source 7 7 [facility] Temperature 98.0 98.0 [facility] Respiratory Effort 15 15 [facility] Respiratory Rate 18 18 [facility] Pulse Assessment Method 4 4 [facility] Pulse Rate 103 103 [facility] Height (Calculated Centimeters) 172.72 172. 72 [facility] Height 68 68 [facility] Blood Pressure 137/91 137/91 [facility] Body Mass Index (BMI) 35.6 35.6 [facility] Weight Measurement Method 5 5 [facility] Weight (Calculated Kilograms) 106.14 106.14 [facility] Weight 3744 3744 [facility] Temperature Source 6 6 [facility] Temperature 98.0 98.0 [facility] Respiratory Effort 15 15 [facility] Respiratory Rate 16 16 [facility] Pulse Assessment Method 4 4 [facility] Pulse Rate 86 86 [facility] Height (Calculated Centimeters) 172.72 172. 72 [facility] Height 68 68 [facility] Blood Pressure 125/81 125/81 [facility] Body Mass Index (BMI) 35.6 35.6 [facility] Weight (Calculated Kilograms) 105.60 105.60 [facility] Height (Calculated Centimeters) 172.72 172. 72 [facility] Body Mass Index (BMI) 35.4 35.4 [facility] Weight (Calculated Kilograms) 105.60 105.60 [facility] Height (Calculated Centimeters) 172.72 172. 72 [facility] Body Mass Index (BMI) 35.4 35.4 [facility] Weight (Calculated Kilograms) 105.60 105.60 [facility] Height (Calculated Centimeters) 172.72 172. 72 [facility] Body Mass Index (BMI) 35.4 35.4 [facility] ID Date Data Source [id number] 09/18/2019 12:26:00 PM EDT [facility] Name Value Range Interpretation Code Description Data Source(s) Weight Measurement Method 1 1 [facility] Weight (Calculated Kilograms) 105.60 105.60 [facility] Weight 3744 3744 [facility] Temperature 98.9 98.9 [facility] Respiratory Effort 2 2 [facility] Respiratory Rate 18 18 [facility] Pulse Rate 94 94 [facility] Height (Calculated Centimeters) 172.72 172. 72 [facility] Height 68 68 [facility] Blood Pressure 134/83 134/83 [facility] Body Mass Index (BMI) 35.4 35.4 [facility] Weight Measurement Method 1 1 [facility] Weight (Calculated Kilograms) 105.60 105.60 [facility] Weight 3744 3744 [facility] Temperature 98.9 98.9 [facility] Respiratory Effort 2 2 [facility] Respiratory Rate 18 18 [facility] Pulse Rate 94 94 [facility] Height (Calculated Centimeters) 172.72 172. 72 [facility] Height 68 68 [facility] Blood Pressure 134/83 134/83 [facility] Body Mass Index (BMI) 35.4 35.4 [facility] Weight (Calculated Kilograms) 105.60 105.60 [facility] Weight 3744 3744 [facility] Height (Calculated Centimeters) 172.72 172. 72 [facility] Height 68 68 [facility] Body Mass Index (BMI) 35.4 35.4 [facility] ID Date Data Source [id number] 07/13/2019 01:06:00 AM EST [facility] Hospital Name Value Range Interpretation Code Description Data Source(s) Weight (Calculated Kilograms) 105.60 105.60 [facility] Height (Calculated Centimeters) 172.72 172. 72 [facility] Body Mass Index (BMI) 35.4 35.4 [facility] Weight (Calculated Kilograms) 105.60 105.60 [facility] Height (Calculated Centimeters) 172.72 172. 72 [facility] Body Mass Index (BMI) 35.4 35.4 [facility] Weight (Calculated Kilograms) 105.60 105.60 [facility] Height (Calculated Centimeters) 172.72 172. 72 [facility] Body Mass Index (BMI) 35.4 35.4 [facility] ID Date Data Source [id number] 07/31/2019 09:57:00 AM [facility] Hospital Name Value Range Interpretation Code Description Data Source(s) Weight (Calculated Kilograms) 105.60 105.60 [facility] Height (Calculated Centimeters) 172.72 172. 72 [facility] Body Mass Index (BMI) 35.4 35.4 [facility] Weight (Calculated Kilograms) 105.60 105.60 [facility] Height (Calculated Centimeters) 172.72 172. 72 [facility] Body Mass Index (BMI) 35.4 35.4 [facility] ID Date Data Source [id number] 07/04/2019 11:07:00 AM [facility] Hospital Name Value Range Interpretation Code Description Data Source(s) Weight (Calculated Kilograms) 105.60 105.60 [facility] Height (Calculated Centimeters) 172.72 172. 72 [facility] Body Mass Index (BMI) 35.4 35.4 [facility] ID Date Data Source [id number] 07/11/2019 10:03:00 AM [facility] Hospital Name Value Range Interpretation Code Description Data Source(s) Weight (Calculated Kilograms) 105.60 105.60 [facility] Height (Calculated Centimeters) 172.72 172. 72 [facility] Body Mass Index (BMI) 35.4 35.4 [facility] ID Date Data Source [id number] 06/27/2019 11:10:00 AM [facility] Hospital Name Value Range Interpretation Code Description Data Source(s) Weight (Calculated Kilograms) 105.60 105.60 [facility] Height (Calculated Centimeters) 172.72 172. 72 [facility] Body Mass Index (BMI) 35.4 35.4 [facility] ID Date Data Source [id number] 06/26/2019 11:10:00 AM [facility] Hospital Name Value Range Interpretation Code Description Data Source(s) Weight (Calculated Kilograms) 105.60 105.60 [facility] Height (Calculated Centimeters) 172.72 172. 72 [facility] Body Mass Index (BMI) 35.4 35.4 [facility] Weight (Calculated Kilograms) 105.60 105.60 [facility] Height (Calculated Centimeters) 172.72 172. 72 [facility] Body Mass Index (BMI) 35.4 35.4 [facility] Weight (Calculated Kilograms) 105.60 105.60 [facility] Height (Calculated Centimeters) 172.72 172. 72 [facility] Body Mass Index (BMI) 35.4 35.4 [facility] ID Date Data Source [id number] 06/14/2019 08:58:00 AM [facility] Hospital Name Value Range Interpretation Code Description Data Source(s) Weight (Calculated Kilograms) 105.60 105.60 [facility] Height (Calculated Centimeters) 172.72 172. 72 [facility] Body Mass Index (BMI) 35.4 35.4 [facility] ID Date Data Source [id number] 07/11/2019 09:51:00 AM [facility] Hospital Name Value Range Interpretation Code Description Data Source(s) Weight (Calculated Kilograms) 105.60 105.60 [facility] Height (Calculated Centimeters) 172.72 172. 72 [facility] Body Mass Index (BMI) 35.4 35.4 [facility] ID Date Data Source [id number] 06/07/2019 09:23:00 AM [facility] Hospital Name Value Range Interpretation Code Description Data Source(s) Weight (Calculated Kilograms) 105.60 105.60 [facility] Height (Calculated Centimeters) 172.72 172. 72 [facility] Body Mass Index (BMI) 35.4 35.4 [facility] ID Date Data Source [id number] 07/09/2019 09:32:00 AM [facility] Hospital Name Value Range Interpretation Code Description Data Source(s) Weight Measurement Method 5 5 [facility] Weight (Calculated Kilograms) 105.60 105.60 [facility] Weight 3724.93 3724.93 [facility] Temperature Source 7 7 [facility] Temperature 98.6 98.6 [facility] Respiratory Effort 1 1 [facility] Respiratory Rate 17 17 [facility] Pulse Assessment Method 4 4 [facility] Pulse Rate 109 109 [facility] Height (Calculated Centimeters) 172.72 172. 72 [facility] Height 68 68 [facility] Blood Pressure 140/84 140/84 [facility] Body Mass Index (BMI) 35.4 35.4 [facility] Weight Measurement Method 5 5 [facility] Weight (Calculated Kilograms) 105.60 105.60 [facility] Weight 3724.93 3724.93 [facility] Temperature Source 7 7 [facility] Temperature 98.6 98.6 [facility] Respiratory Effort 1 1 [facility] Respiratory Rate 17 17 [facility] Pulse Assessment Method 4 4 [facility] Pulse Rate 109 109 [facility] Height (Calculated Centimeters) 172.72 172. 72 [facility] Height 68 68 [facility] Blood Pressure 140/84 140/84 [facility] Body Mass Index (BMI) 35.4 35.4 [facility] Weight Measurement Method 5 5 [facility] Weight (Calculated Kilograms) 105.60 105.60 [facility] Weight 3724.93 3724.93 [facility] Temperature Source 7 7 [facility] Temperature 98.6 98.6 [facility] Respiratory Effort 1 1 [facility] Respiratory Rate 17 17 [facility] Pulse Assessment Method 4 4 [facility] Pulse Rate 109 109 [facility] Height (Calculated Centimeters) 172.72 172. 72 [facility] Height 68 68 [facility] Blood Pressure 140/84 140/84 [facility] Body Mass Index (BMI) 35.4 35.4 [facility] Weight Measurement Method 5 5 [facility] Weight (Calculated Kilograms) 105.60 105.60 [facility] Weight 3724.93 3724.93 [facility] Temperature Source 7 7 [facility] Temperature 98.5 98.5 [facility] Respiratory Effort 1 1 [facility] Respiratory Rate 19 19 [facility] Pulse Assessment Method 4 4 [facility] Pulse Rate 101 101 [facility] Height (Calculated Centimeters) 172.72 172. 72 [facility] Height 68 68 [facility] Blood Pressure 121/87 121/87 [facility] Body Mass Index (BMI) 35.4 35.4 [facility] Weight Measurement Method 5 5 [facility] Weight (Calculated Kilograms) 105.60 105.60 [facility] Weight 3724.93 3724.93 [facility] Temperature Source 7 7 [facility] Temperature 99.0 99.0 [facility] Respiratory Effort 15 15 [facility] Respiratory Rate 14 14 [facility] Pulse Assessment Method 4 4 [facility] Pulse Rate 124 124 [facility] Height (Calculated Centimeters) 172.72 172. 72 [facility] Height 68 68 [facility] Blood Pressure 130/78 130/78 [facility] Body Mass Index (BMI) 35.4 35.4 [facility] Weight Measurement Method 5 5 [facility] Weight (Calculated Kilograms) 105.60 105.60 [facility] Weight 3724.93 3724.93 [facility] Temperature Source 7 7 [facility] Temperature 98.2 98.2 [facility] Respiratory Rate 28 28 [facility] Pulse Assessment Method 4 4 [facility] Pulse Rate 120 120 [facility] Height (Calculated Centimeters) 172.72 172. 72 [facility] Height 68 68 [facility] Blood Pressure 139/87 139/87 [facility] Body Mass Index (BMI) 35.4 35.4 [facility] Weight (Calculated Kilograms) 91.51 91.51 [facility] Height (Calculated Centimeters) 172.72 172. 72 [facility] Body Mass Index (BMI) 30.7 30.7 [facility] Weight (Calculated Kilograms) 91.51 91.51 [facility] Height (Calculated Centimeters) 172.72 172. 72 [facility] Body Mass Index (BMI) 30.7 30.7 [facility] Weight (Calculated Kilograms) 91.51 91.51 [facility] Height (Calculated Centimeters) 172.72 172. 72 [facility] Body Mass Index (BMI) 30.7 30.7 [facility] Weight (Calculated Kilograms) 91.51 91.51 [facility] Height (Calculated Centimeters) 172.72 172. 72 [facility] Body Mass Index (BMI) 30.[address] [facility] Hospital ID Date Data Source [id number] 05/29/2019 11:05:00 AM EST [facility] Name Value Range Interpretation Code Description Data Source(s) Weight (Calculated Kilograms) 91.51 91.51 [facility] Height (Calculated Centimeters) 172.72 172. 72 [facility] Body Mass Index (BMI) 30.7 30.7 [facility] Weight (Calculated Kilograms) 91.51 91.51 [facility] Height (Calculated Centimeters) 172.72 172. 72 [facility] Body Mass Index (BMI) 30.7 30.7 [facility] Weight (Calculated Kilograms) 91.51 91.51 [facility] Height (Calculated Centimeters) 172.72 172. 72 [facility] Body Mass Index (BMI) 30.7 30.7 [facility] Weight (Calculated Kilograms) 91.51 91.51 [facility] Height (Calculated Centimeters) 172.72 172. 72 [facility] Body Mass Index (BMI) 30.7 30.7 [facility] Weight (Calculated Kilograms) 91.51 91.51 [facility] Height (Calculated Centimeters) 172.72 172. 72 [facility] Body Mass Index (BMI) 30.7 30.7 [facility] ID Date Data Source [id number] 06/14/2019 08:58:00 AM EST [facility] Hospital Name Value Range Interpretation Code Description Data Source(s) Weight (Calculated Kilograms) 91.51 91.51 [facility] Height (Calculated Centimeters) 172.72 172. 72 [facility] Body Mass Index (BMI) 30.7 30.7 [facility] ID Date Data Source [id number] 07/04/2019 11:06:00 AM EST [facility] Hospital Name Value Range Interpretation Code Description Data Source(s) Weight (Calculated Kilograms) 91.51 91.51 [facility] Height (Calculated Centimeters) 172.72 172. 72 [facility] Body Mass Index (BMI) 30.7 30.7 [facility] ID Date Data Source [id number] 05/08/2019 11:25:00 AM EST [facility] Name Value Range Interpretation Code Description Data Source(s) Weight (Calculated Kilograms) 91.51 91.51 [facility] Height (Calculated Centimeters) 172.72 172. 72 [facility] Body Mass Index (BMI) 30.7 30.7 [facility] Weight (Calculated Kilograms) 91.51 91.51 [facility] Height (Calculated Centimeters) 172.72 172. 72 [facility] Body Mass Index (BMI) 30.7 30.7 [facility] Weight (Calculated Kilograms) 91.51 91.51 [facility] Height (Calculated Centimeters) 172.72 172. 72 [facility] Body Mass Index (BMI) 30.7 30.7 [facility] Weight (Calculated Kilograms) [address] [place] [address] Height (Calculated Centimeters) 172.72 172. 72 [facility] Body Mass Index (BMI) 30.7 30.7 [facility] ID Date Data Source [id number] 07/25/2019 10:55:00 AM EST [facility] Name Value Range Interpretation Code Description Data Source(s) Weight Measurement Method 5 5 [facility] Weight (Calculated Kilograms) [address] [place] [address] Weight 3236.8 3236.8 [facility] Temperature Source 7 7 [facility] Temperature 98.0 98.0 [facility] Respiratory Effort 1 1 [facility] Respiratory Rate 18 18 [facility] Pulse Assessment Method 4 4 [facility] Pulse Rate 116 116 [facility] Height (Calculated Centimeters) 172.72 172. 72 [facility] Height 68 68 [facility] Blood Pressure 137/93 137/93 [facility] Body Mass Index (BMI) 30.7 30.7 [facility] Weight Measurement Method 5 5 [facility] Weight (Calculated Kilograms) 91.51 91.51 [facility] Weight 3236.8 3236.8 [facility] Temperature Source 7 7 [facility] Temperature 98.0 98.0 [facility] Respiratory Effort 1 1 [facility] Respiratory Rate 18 18 [facility] Pulse Assessment Method 4 4 [facility] Pulse Rate 116 116 [facility] Height (Calculated Centimeters) 172.72 172. 72 [facility] Height 68 68 [facility] Blood Pressure 137/93 137/93 [facility] Body Mass Index (BMI) 30.7 30.7 [facility] Weight Measurement Method 5 5 [facility] Weight (Calculated Kilograms) 91.51 91.51 [facility] Weight 3236.8 3236.8 [facility] Temperature Source 7 7 [facility] Temperature 98.0 98.0 [facility] Respiratory Effort 1 1 [facility] Respiratory Rate 18 18 [facility] Pulse Assessment Method 4 4 [facility] Pulse Rate 116 116 [facility] Height (Calculated Centimeters) 172.72 172. 72 [facility] Height 68 68 [facility] Blood Pressure 137/93 137/93 [facility] Body Mass Index (BMI) 30.7 30.7 [facility] Weight Measurement Method 5 5 [facility] Weight (Calculated Kilograms) 91.51 91.51 [facility] Weight 3184.0 3184.0 [facility] Temperature Source 7 7 [facility] Temperature 96.9 96.9 [facility] Respiratory Effort 3 3 [facility] Respiratory Rate 16 16 [facility] Pulse Assessment Method 4 4 [facility] Pulse Rate 76 76 [facility] Height (Calculated Centimeters) 172.72 172. 72 [facility] Height 68 68 [facility] Blood Pressure 138/87 138/87 [facility] Body Mass Index (BMI) 30.7 30.7 [facility] Weight Measurement Method 1 1 [facility] Weight (Calculated Kilograms) 91.51 91.51 [facility] Weight 3145.6 3145.6 [facility] Temperature Source 7 7 [facility] Temperature 97.2 97.2 [facility] Respiratory Effort 15 15 [facility] Respiratory Rate 18 18 [facility] Pulse Assessment Method 4 4 [facility] Pulse Rate 87 87 [facility] Height (Calculated Centimeters) 172.72 172. 72 [facility] Height 68 68 [facility] Blood Pressure 124/77 124/77 [facility] Body Mass Index (BMI) 30.7 30.7 [facility] Weight Measurement Method 1 1 [facility] Weight (Calculated Kilograms) 91.51 91.51 [facility] Weight 3145.6 3145.6 [facility] Temperature Source 7 7 [facility] Temperature 98.3 98.3 [facility] Respiratory Effort 1 1 [facility] Respiratory Rate 18 18 [facility] Pulse Assessment Method 4 4 [facility] Pulse Rate 85 85 [facility] Height (Calculated Centimeters) 172.72 172. 72 [facility] Height 68 68 [facility] Blood Pressure 127/76 127/76 [facility] Body Mass Index (BMI) 30.7 30.7 [facility] Weight Measurement Method 5 5 [facility] Weight (Calculated Kilograms) 91.51 91.51 [facility] Weight 3259.314 3259.314 [facility] Temperature Source 7 7 [facility] Temperature 99.1 99.1 [facility] Respiratory Effort 15 15 [facility] Respiratory Rate 18 18 [facility] Pulse Assessment Method 4 4 [facility] Pulse Rate 114 114 [facility] Height (Calculated Centimeters) 172.72 172. 72 [facility] Height 68 68 [facility] Blood Pressure 128/89 128/89 [facility] Body Mass Index (BMI) 30.7 30.7 [facility] Weight Measurement Method 5 5 [facility] Weight (Calculated Kilograms) 92.08 92.08 [facility] Weight 3305.17 3305.17 [facility] Temperature Source 7 7 [facility] Temperature 98.9 98.9 [facility] Respiratory Effort 14 14 [facility] Respiratory Rate 18 18 [facility] Pulse Assessment Method 4 4 [facility] Pulse Rate 94 94 [facility] Height (Calculated Centimeters) 172.72 172. 72 [facility] Height 68 68 [facility] Blood Pressure 115/70 115/70 [facility] Body Mass Index (BMI) 30.9 30.9 [facility] Weight Measurement Method 5 5 [facility] Weight (Calculated Kilograms) 92.08 92.08 [facility] Weight 7118.285 7118.285 [facility] Temperature Source 7 7 [facility] Temperature 97.8 97.8 [facility] Respiratory Rate 18 18 [facility] Pulse Assessment Method 4 4 [facility] Pulse Rate 112 112 [facility] Height (Calculated Centimeters) 172.72 172. 72 [facility] Height 68 68 [facility] Blood Pressure 135/97 135/97 [facility] Body Mass Index (BMI) 30.9 30.9 [facility] Weight Measurement Method 5 5 [facility] Weight (Calculated Kilograms) 92.08 92.08 [facility] Weight 3248 3248 [facility] Temperature Source 7 7 [facility] Temperature 97.8 97.8 [facility] Respiratory Rate 18 18 [facility] Pulse Assessment Method 4 4 [facility] Pulse Rate 105 105 [facility] Height (Calculated Centimeters) 172.72 172. 72 [facility] Height 68 68 [facility] Blood Pressure 139/84 139/84 [facility] Body Mass Index (BMI) 30.9 30.9 [facility] Weight (Calculated Kilograms) 89.81 89.81 [facility] Height (Calculated Centimeters) 172.72 172. 72 [facility] Body Mass Index (BMI) 30.1 30.1 [facility] Weight (Calculated Kilograms) 89.81 89.81 [facility] Height (Calculated Centimeters) 172.72 172. 72 [facility] Body Mass Index (BMI) 30.[address] [facility] Weight (Calculated Kilograms) 89.81 89.81 [facility] Height (Calculated Centimeters) 172.72 172. 72 [facility] Body Mass Index (BMI) 30.1 30.1 [facility] Weight (Calculated Kilograms) 89.81 89.81 [facility] Height (Calculated Centimeters) 172.72 172. 72 [facility] Body Mass Index (BMI) 30.1 30.1 [facility] ID Date Data Source [id number] 05/16/2019 12:00:00 PM [facility] Hospital Name Value Range Interpretation Code Description Data Source(s) Weight (Calculated Kilograms) 89.81 89.81 [facility] Height (Calculated Centimeters) 172.72 172. 72 [facility] Body Mass Index (BMI) 30.1 30.1 [facility] Weight (Calculated Kilograms) 89.81 89.81 [facility] Height (Calculated Centimeters) 172.72 172. 72 [facility] Body Mass Index (BMI) 30.1 30.1 [facility] Weight (Calculated Kilograms) 89.81 89.81 [facility] Height (Calculated Centimeters) 172.72 172. 72 [facility] Body Mass Index (BMI) 30.1 30.1 [facility] ID Date Data Source [id number] 05/10/2019 09:57:00 AM [facility] Hospital Name Value Range Interpretation Code Description Data Source(s) Weight (Calculated Kilograms) 89.81 89.81 [facility] Height (Calculated Centimeters) 172.72 172. 72 [facility] Body Mass Index (BMI) 30.[address] [facility] Weight (Calculated Kilograms) 89.81 89.81 [facility] Height (Calculated Centimeters) 172.72 172. 72 [facility] Body Mass Index (BMI) 30.1 30.1 [facility] Weight (Calculated Kilograms) 89.81 89.81 [facility] Height (Calculated Centimeters) 172.72 172. 72 [facility] Body Mass Index (BMI) 30.1 30.1 [facility] ID Date Data Source [id number] 05/02/2019 12:00:00 PM [facility] Hospital Name Value Range Interpretation Code Description Data Source(s) Weight (Calculated Kilograms) 89.81 89.81 [facility] Height (Calculated Centimeters) 172.72 172. 72 [facility] Body Mass Index (BMI) 30.1 30.1 [facility] Weight (Calculated Kilograms) 89.81 89.81 [facility] Height (Calculated Centimeters) 172.72 172. 72 [facility] Body Mass Index (BMI) 30.1 30.1 [facility] Weight (Calculated Kilograms) 89.81 89.81 [facility] Height (Calculated Centimeters) 172.72 172. 72 [facility] Body Mass Index (BMI) 30.1 30.1 [facility] Patient Treatment Plan of Care Planned Activity Planned Date Details Description Data Source (s) Methylphenidate Hydrochloride 5 MG Oral Tablet [Ritali n] 06/10/2020 12:00:00 AM EST eCW1 ([facility]) Methylphenidate Hydrochloride 5 MG Oral Tablet [Ritali n] 06/10/2020 12:00:00 AM EST eCW1 ([facility]) Methylphenidate Hydrochloride 5 MG Oral Tablet [Ritali n] 06/10/2020 12:00:00 AM EST eCW1 ([facility]) torsemide 100 MG Oral Tablet 06/09/2020 12:00:00 AM EST [facility] valsartan 160 MG Oral Tablet 06/09/2020 12:00:00 AM EST [facility] valsartan 160 MG Oral Tablet 06/08/2020 12:00:00 AM EST [facility] quetiapine 25 MG Oral Tablet 05/27/2020 12:00:00 AM EST [facility] Methylphenidate Hydrochloride 5 MG Oral Tablet 05/27/2020 12:00:00 AM EST [facility] Methylphenidate Hydrochloride 5 MG Oral Tablet [Ritali n] 05/27/2020 12:00:00 AM EST eCW1 ([facility]) quetiapine 25 MG Oral Tablet [Seroquel] 05/27/2020 12:00:00 AM EST eCW1 ([facility]) Methylphenidate Hydrochloride 5 MG Oral Tablet [Ritali n] 05/27/2020 12:00:00 AM EST eCW1 ([facility]) quetiapine 25 MG Oral Tablet [Seroquel] 05/27/2020 12:00:00 AM EST eCW1 ([facility]) Methazolamide 25 MG Oral Tablet 05/22/2020 12:00:00 AM [facility] Amitriptyline Hydrochloride 25 MG Oral Tablet 05/22/2020 12:00:00 A M [facility] Furosemide 40 MG Oral Tablet 05/21/2020 12:00:[address] [facility] pregabalin 300 MG Oral Capsule 05/12/2020 12:00:[address] [facility] Ketoconazole 20 MG/ML Medicated Shampoo 05/08/2020 12:00:00 AM [facility] Sertraline 25 MG Oral Tablet 05/05/2020 12:00:00 AM EST [facility] topiramate 25 MG Oral Tablet 04/30/2020 12:00:00 AM [facility] duloxetine 20 MG Delayed Release Oral Capsule 04/20/2020 12:00:00 A M EST eCW1 ([facility]) duloxetine 20 MG Delayed Release Oral Capsule 04/20/2020 12:00:00 A M EST eCW1 ([facility]) duloxetine 20 MG Delayed Release Oral Capsule 04/20/2020 12:00:00 A M EST eCW1 ([facility]) duloxetine 20 MG Delayed Release Oral Capsule 04/20/2020 12:00:00 A M EST eCW1 ([facility]) duloxetine 20 MG Delayed Release Oral Capsule 04/20/2020 12:00:00 A M EST eCW1 ([facility]) Acetaminophen 325 MG / Oxycodone Hydrochloride 5 MG Or al Tablet 04/10/2020 12:00:[address] [facility] chlorhexidine gluconate 1.2 MG/ML Mouthwash 04/10/2020 12:00:00 AM [facility] 12 HR Acetazolamide 500 MG Extended Release Oral Capsu le 03/26/2020 12:00:00 AM [facility] ospital sodium chloride (preservative free) 0.9 % flush 3 mL 05:00:00 PM [facility] Ketoconazole 20 MG/ML Medicated Shampoo [facility]03[facility]t 02/05/2020 12:00:00 AM EDT [facility] Prednisone 20 MG Oral Tablet 02/05/[facility] Oral Tablet 02/05/2020 12:00:00 AM [facility] Baclofen 10 MG Oral Tablet 01/27/2020 12:00:00 AM [facility] Hydroxyzine Hydrochloride 25 MG Oral Tablet 01/27/2020 [facility] 25 MG Oral Tablet 01/27/2020 12:00:00 AM [facility] duloxetine 60 MG Delayed Release Oral Capsule 01/27/2020 12:00:00 A M [facility] Baclofen 10 MG Oral Tablet 01/27/2020 12:00:00 AM [facility] Budesonide 0.25 MG/ML Inhalant Solution 01/26/2020 12:00:00 AM [facility] Amitriptyline Hydrochloride 25 MG Oral Tablet 01/10/2020 12:00:00 A M [facility] ropinirole 1 MG Oral Tablet 01/03/2020 12:00:00 AM [facility] Sulfamethoxazole 800 MG / Trimethoprim 160 MG Oral Tab let 12/30/2019 12:00:00 AM [facility]ital Cyclobenzaprine hydrochloride 5 MG Oral Tablet 12/26/2019 12:00:00 AM [facility] Trazodone Hydrochloride 50 MG Oral Tablet 12/26/2019 12:00:00 AM ED [facility] Calcitriol 0.64571 MG Oral Capsule 12/26/2019 12:00:00 AM [facility] Trazodone Hydrochloride 50 MG Oral Tablet 12/26/2019 12:00:00 AM [facility] Sertraline 50 MG Oral Tablet 12/26/2019 12:00:00 AM [facility] 24 HR metoprolol succinate 100 MG Extended Release Ora l Tablet 12/26/2019 12:00:00 AM [facility]ital Hydrochlorothiazide 25 MG Oral Tablet 12/26/2019 12:00:00 AM [facility] Cyclobenzaprine hydrochloride 5 MG Oral Tablet 12/26/2019 12:00:00 AM [facility] ropinirole 1 MG Oral Tablet 12/26/2019 12:00:00 AM [facility] Baclofen 10 MG Oral Tablet 12/26/2019 12:00:00 AM [facility] Amitriptyline Hydrochloride 25 MG Oral Tablet 12/26/2019 12:00:00 A M [facility] Nystatin 100 UNT/MG Topical Powder 12/03/2019 12:00:00 AM [facility] Nystatin 100 UNT/MG Topical Powder 12/03/2019 12:00:00 AM [facility] Fluocinonide 0.5 MG/ML Topical Cream 11/27/2019 12:00:00 AM [facility] Fluocinonide 0.5 MG/ML Topical Cream 11/27/2019 12:00:00 AM [facility] Furosemide 20 MG Oral Tablet 11/25/2019 12:00:00 AM [facility] Melatonin 10 MG 11/25/2019 12:00:00 AM EDT [facility] ([facility]) Melatonin 10 MG 11/25/2019 12:00:00 AM EDT eC ([facility]) Melatonin 10 MG 11/25/2019 12:00:00 AM EDT eC ([facility]) Melatonin 10 MG 11/25/2019 12:00:00 AM EDT [facility] ([facility]) Melatonin 10 MG 11/25/2019 12:00:00 AM EDT [facility] ([facility]) Melatonin 10 MG 11/25/2019 12:00:00 AM EDT [facility] ([facility]) pregabalin 100 MG Oral Capsule 11/15/2019 12:00:00 AM [facility] pregabalin 100 MG Oral Capsule [Lyrica] 11/15/2019 12:00:00 AM EDT eCW1 ([facility]) May Have - 10/28/2019 12:00:00 AM EDT e CW1 ([facility]) Prednisone 10 MG Oral Tablet 10/25/2019 12:00:00 AM [facility] gabapentin 300 MG Oral Capsule 10/25/2019 12:00:00 AM [facility] duloxetine 30 MG Delayed Release Oral Capsule 09/25/2019 12:00:00 A M [facility] Diazepam 5 MG Oral Tablet 09/12/2019 12:00:00 AM [facility] Fluocinonide 0.5 MG/ML Topical Cream 08/26/2019 12:00:00 AM [place] [id number] ([facility]) Acetaminophen 325 MG / Hydrocodone Bitartrate 5 MG Ora l Tablet 08/23/2019 12:00:00 AM [facility] Acetaminophen 325 MG / Hydrocodone Bitartrate 5 MG Ora l Tablet 08/23/2019 12:00:00 AM [facility] ospital Testosterone Cypionate 200 MG/ML Intramu scular Solution (DEPOTESTOTERONE CYPIONATE) 2019 12:00:00 AM [facility] Budesonide 0.25 MG/ML Inhalant Solution 07/18/2019 12:00:00 AM [facility] Ipratropium [place] 0.2 MG/ML Inhalant Solution 05/12/2019 12:00:00 AM [facility] Nystatin 100 UNT/MG Topical Powder [Nystop] 04/30/2019 12:00:00 AM [place] [id number] ([facility]) gabapentin 600 MG Oral Tablet 04/18/2019 12:00:00 AM [facility] Eszopiclone 2 MG Oral Tablet 02/04/2019 12:00:00 AM [facility] Escitalopram 20 MG Oral Tablet 02/04/2019 12:00:00 AM [facility] Amlodipine 2.5 MG Oral Tablet 02/04/2019 12:00:00 AM [facility] 60 ACTUAT Budesonide 0.16 MG/ACTUAT / fo rmoterol fumarate 0.0045 MG/ACTUAT Metered Dose Inhaler [Symbicort] 11/28/2018 12:00:00 AM EDT [facility] albuterol (PROVENTIL HFA;VENTOLIN HFA) 108 (90 Base) M CG/ACT inhaler 11/18/2018 12:00:[address] [facility] Amlodipine 10 MG Oral Tablet [facility] pregabalin 100 MG Oral Capsule [facility] Furosemide 20 MG Oral Tablet [facility]
--- NOTE | 2020-06-26 06:40 | HPEPDOC ---
[facility] Medical History & Physical Date of Admission Jun 26, 2020 Date of Service: Jun 26, 2020 History and Physical CHIEF COMPLAINT: Weakness HISTORY OF PRESENT ILLNESS: 44M with multiple comorbidities given his young age he has a history of hypertension, depression, chronic hypoxic respiratory failure, chronic inflamma tory demyelinating polyneuropathy, who presented to the hospital for progressive shortness of breath and weakness. Patient was recently admitted and discharged from the hospital a few days ago due to pneumonia with oral antibiotics to continue to take. Patient endorses use compliant with his medications but his shortness of breath never improved since discharge from the hospital and slowly worsened over the past few days. Patient endorses subjective fevers and chills at home. He endorses a cough but no sputum production. He feels weak and sometimes dizzy. He's had very poor fluid intake and has not had an appetite over the past few days since being discharged. On review of systems patient en dorses dysuria. He denies chest pain or palpitations denies abdominal pain. PAST MEDICAL/SURGICAL HISTORY: Chronic hypoxic respiratory failure etiology unclear but thought to be secondary to his underlying demyelinating polyneuropathy Chronic steroid Dependence / PCP prophylaxis Weakness of bilateral upper / lower extremities possibly 2/2 Chronic inflammatory demyelinating polyneuropathy PARISH (not compliant with CPAP) Hypertension Depression Nephrolithiasis Fatty Liver Disease Restless legs Migraine headache History of Idiopathic Intracranial HTN GERD Appendectomy Cholecystectomy Inguinal hernia repair SOCIAL HISTORY: Endorses drinking alcohol socially Denies tobacco use Denies illicit drug use FAMILY HISTORY: Reviewed and none contributory to this admission ALLERGIES: Please see below. REVIEW OF SYSTEMS: 10 point review of systems complete all negative otherwise stated in HPI HOME MEDICATIONS: Please see below. PHYSICAL EXAMINATION: Constitutional: Awake and alert, in mild apparent distress, weak appearing and short of breath speaking in short sentences ENT: Sclera are clear Respiratory: Lungs poor air entry and diminished breath sounds bilaterally especially at bases. Using supplemental oxygen by nasal cannula. Not using accessory muscles to breath. Cardiovascular: RRR S1 and S2 are normal Gastrointestinal: Abdomen is soft, non distended, non tender, BS present. S uprapubic tenderness Musculoskeletal: No lower extremity edema. Mental Status: A&O x3, normal affect Skin: Warm, dry LABORATORY DATA: See below. IMAGING: Kideny US pending CXR: IMPRESSION: Bilateral patchy parenchymal opacities, nonspecific but probably due to pneumonia, worse than on the prior exams. MICROBIOLOGY: Please see below. ASSESSMENT/PLAN # Acute renal failure: Nephrology consulted. Creatinine 8.7 and GFR 7.1 on admission. Could be due to combination of dehydration and possible drug toxicity.Fu FeUrea (patient on loop dieretic). Trial of IV fluids at maintenance rate. s/p boluses in ED. # Bilateral pneumonia: Recently discharged with pneumonia chest x-ray shows possible worsening from prior exam. Patient endorses being compliant with his medications upon discharge. Could be treatment failure. I broaden antibiotic coverage with vancomycin and Zosyn. Fu BCx. # Hyperkalemia: k 5.2 on admission. Likely related to his acute renal failure. 1x Kayexalate. Monitor potassium. # Dysuria: Fu UA. UTI will be covered with zosyn. #Chronic hypoxic resp failure possibly 2/2 neuromuscular disorder with Chronic steroid dependence >1.5 yrs. sees pulmonology as outpatient. c/w prednisone #weakness of bilateral legs: c/w bilateral leg braces. c/w baclofen, cyclobenzaprine, pregabalin. extensive outpatient workup, including EMG at [facility]. #PARISH: non compliant with CPAP. May use own CPAP machine if desired #HTN: Hypotensive currently likely secondary to dehydration hold home antihypertensives for now and decrease metoprolol from 100-50. #depression, insomnia: resume home meds, duloxetine, sertraline, trazodone #Restless leg syndrome: c/w ropinirole, lyrica # hx of migraines: topiramate #Obesity: BMI 40.8, complicating care #GERD: Continue PPI # DVT prophylaxis: Heparin A [facility]ouse[facility] Hospitalist Vital Signs Vital Signs Date Time Temp Pulse Resp B/P (MAP) Pulse Ox O2 Delivery O2 Flow Rate FiO2 06/26/20 04:19 113 92 06/26/20 04:03 96/57 (70) 06/26/20 03:23 Nasal Cannula 4.0 06/26/20 01:56 99.5 06/26/20 01:35 30 Laboratory Data Labs 24H Laboratory Tests 2 06/26/20 03:16: Immature Granulocyte % (Auto) 0.5, Neutrophils (%) (Auto) 67.4H, Lymphocytes (%) (Auto) 25.9, Monocytes (%) (Auto) 6.0H, Eosinophils (%) (Auto) 0.1, Basophils (%) (Auto) 0.1, Neutrophils # (Auto) 5.2, Lymphocytes # (Auto) 2.0, Monocytes # (Auto) 0.5, Eosinophils # (Auto) 0.0, Basophils # (Auto) 0.0, Nucleated Red Blood Cells % (auto) 0.0, Anion Gap 10, Glomerular Filtration Rate 7.1L, Osmolality 315H, Calcium Level 8.2L, Total Bilirubin 0.5, Direct Bilirubin 0.2, Aspartate Amino Transf (AST/SGOT) 113H, Alanine Aminotransferase (ALT/SGPT) 135H , Alkaline Phosphatase 106, Total Creatine Kinase 412H, Creatine Kinase MB 1.9, Creatine Kinase MB Relative Index 0.46, Troponin I < 0.02, Total Protein 7.1, Albumin 3.5, Albumin/Globulin Ratio 1.0, Thyroid Stimulating Hormone (TSH) 3.860H, Salicylates Level 3.8L, Acetaminophen Level < 2.0L, Ethyl Alcohol Level < 0.003 06/26/20 03:17: Lactic Acid Level 1.2, Ammonia 18 CBC/BMP Laboratory Tests 06/26/20 03:16 Microbiology Microbiology 06/26/20 Respiratory Virus Panel (PCR) (PHYLLIS) - Final, Complete Home Medications Scheduled Amitriptyline HCl (Amitriptyline HCl) 25 Mg Tablet, 50 MG PO QHS Aspirin (Aspirin EC) 81 Mg Tablet.dr, 81 MG PO DAILY Baclofen (Baclofen) 10 Mg Tablet, 10 MG PO TID Calcitriol (Calcitriol) 0.25 Mcg Capsule, 0.25 MCG PO DAILY Calcium Carbonate (Tums) 200 Mg Tab.chew, 1,000 MG PO WM Cyclobenzaprine HCl (Cyclobenzaprine HCl) 5 Mg Tablet, 5 MG PO QHS Duloxetine HCl (Duloxetine HCl) 60 Mg Capsule.dr, 60 MG PO DAILY Ergocalciferol (Vitamin D2) (Vitamin D2) 50,000 Units Cap, 50,000 UNITS PO QWEEK MONDAYS Hydrochlorothiazide (Hydrochlorothiazide) 25 Mg Tablet, 25 MG PO DAILY Ketoconazole (Ketoconazole) 120 Ml Shampoo, 1 DOSE TOP Q2D Melatonin (Melatonin) 10 Mg Capsule, 10 MG PO QHS Methazolamide (Methazolamide) 25 Mg Tablet, 25 MG PO BID Methylphenidate HCl (Methylphenidate HCl) 5 Mg Tablet, 10 MG PO DAILY Metoprolol Succinate (Metoprolol Succinate) 100 Mg Tab.er.24h, 100 MG PO DAILY Pantoprazole Sodium (Pantoprazole Sodium) 40 Mg Tablet.dr, 40 MG PO QHS Potassium Chloride (Potassium Chloride) 10 Meq Tab.er.prt, 20 MEQ PO DAILY Prednisone (Prednisone) 1 Mg Tablet, 3 MG PO DAILY 18MG TOTAL Prednisone (Prednisone) 5 Mg Tablet, 15 MG PO DAILY 18MG TOTAL Pregabalin (Pregabalin) 300 Mg Capsule, 300 MG PO BID Quetiapine Fumarate (Quetiapine Fumarate) 50 Mg Tablet, 50 MG PO QHS Ropinirole HCl (Ropinirole HCl) 1 Mg Tablet, 1 MG PO TID Sertraline HCl (Sertraline HCl) 25 Mg Tablet, 75 MG PO DAILY Sulfamethoxazole/Trimethoprim (Bactrim Ds Tablet) 1 Each Tablet, 1 TAB PO 3XW MONDAY, MONDAY AND MONDAY Topiramate (Topiramate) 50 Mg Tablet, 50 MG PO DAILY Torsemide (Torsemide) 20 Mg Tablet, 20 MG PO DAILY Valsartan (Valsartan) 160 Mg Tablet, 160 MG PO DAILY Allergies Coded Allergies: TAPE (Verified Allergy, Intermediate, HIVES, 04/03/19) PLASTIC TAPE, PAPER TAPE [place] silver (Verified Allergy, Intermediate, HIVES, 04/03/19) acetazolamide (Verified Allergy, Unknown, " out of it", 05/15/20) A-FIB/CHADSVASC A-FIB History Current/History of A-Fib/PAF?: No NIMCO RANDALL MD Jun 26, 2020 06:05
[2020-06-26] MEDS ORDERED: SOD POLYSTYRENE SULFONATE SUSP 15 GM/60 ML UD PO ONE (06:45)
[2020-06-26] MEDS: NS 1,000 ML IV SCH ×3 (08:01→13:46)
--- NOTE | 2020-06-26 08:58 | ECGEPIP ---
[facility] - ED Test Date: 2020-06-26 Pat Name: ROLLY YANCEY Department: Room: [facility] Gender: Male Land [employer]ist: : [id number] Requested By: KIMBERLEY Aiken Order Number: [id number] Reading MD: Gian Cleary Measurements Intervals [place] Rate: 116 P: 47 AK: 144 QRS: 8 QRSD: 110 T: 6 QT: 317 QTc: 442 Interpretive Statements SINUS TACHYCARDIA MODERATE INTRAVENTRICULAR CONDUCTION DELAY NONSPECIFIC T WAVE ABNORMALITY(S) SIMILAR TO 06/16/20 Electronically Signed on 06-26-2020 8:58:00 EST by Gian Cleary
[2020-06-26] MEDS ORDERED: predniSONE 1 MG TAB PO SCH (09:00)
[2020-06-26] MEDS ORDERED: PREGABALIN 100 MG CAP (LYRICA) PO SCH (09:00)
[2020-06-26] MEDS ORDERED: VANCOMYCIN HCL 1,000 MG, VIAL MATE ADAPTER 1 EACH in D5W 250 ML IV SCH (09:00)
[2020-06-26] MEDS ORDERED: TOPIRAMATE (TopAMAX) 25 MG TAB PO SCH (09:00)
[2020-06-26] MEDS ORDERED: TORSEMIDE 20 MG TAB PO SCH (09:00)
[2020-06-26] MEDS ORDERED: predniSONE 5 MG TAB PO SCH (09:00)
[2020-06-26] MEDS: CALCIUM CARBONATE 500 MG CHEW U/D PO SCH ×3 (09:20→17:58)
[2020-06-26] MEDS: ACETAMINOPHEN TAB 650MG DOSE (2X325MG) PO PRN (09:21)
[2020-06-26] MEDS: DOCUSATE SODIUM 100MG CAPSULE PO SCH ×2 (09:21→20:33)
[2020-06-26] MEDS: METHYLPHENIDATE 5 MG TAB PO SCH (09:22)
[2020-06-26] MEDS: SERTRALINE HCL 25 MG TABLET PO SCH (09:22)
[2020-06-26] MEDS: ASPIRIN 81 MG ENTERIC TAB PO SCH (09:23)
[2020-06-26] MEDS: PREGABALIN 75 MG CAP(LYRICA) PO SCH (09:24)
[2020-06-26] MEDS: PIPERACILLIN/TAZOBACTAM SOD 4.5 GM in D5W MINI-BAG PLUS 100 ML IV SCH ×2 (09:25→21:00)
[2020-06-26] MEDS: HEPARIN SOD (PORCINE) 5000UNITS/ML 1ML VIAL/SYRINGE SC SCH ×2 (10:45→20:34)
[2020-06-26 10:53] LABS: BASO % 0.1 % (0.0-1.0); EOS % 0.1 % (0.0-3.0); HEMATOCRIT 33.7 % (42.0-52.0); HEMOGLOBIN 10.5 g/dl (13.5-17.5); LYMPH # 2.2 10^3/uL (1.5-5.0); LYMPH % 30.9 % (24.0-44.0); MEAN CORPUSCULAR HEMOGLOBIN 28.5 pg (27.0-33.0); MEAN CORPUSCULAR HGB CONC 31.2 g/dl (32.0-36.5); MEAN CORPUSCULAR VOLUME 91.3 fl (80.0-96.0); MONO # 0.5 10^3/uL (0.0-0.8); MONO % 6.8 % (0.0-5.0); NEUTROPHILS # 4.3 10^3/uL (1.5-8.5); NEUTROPHILS % 61.5 % (36.0-66.0); PLATELET COUNT, AUTOMATED 185 10^3/uL (150-450); RED BLOOD COUNT 3.69 10^6/uL (4.30-6.10)
[2020-06-26 11:25] LABS: CALCIUM LEVEL 7.2 MG/DL (8.5-10.1); CREATININE FOR GFR 7.15 MG/DL (0.70-1.30); POTASSIUM SERUM 3.7 MEQ/L (3.5-5.1)
[2020-06-26] MEDS: rOPINIRole 1MG TAB PO SCH ×2 (11:55→17:57)
[2020-06-26] MEDS: CALCITRIOL 0.25 MCG CAP (S0169) PO SCH (11:56)
[2020-06-26] MEDS ORDERED: NOREPINEPHRINE BITARTRATE 8 MG in D5W 492 ML IV SCH (14:00)
[2020-06-26 14:25] LABS: SODIUM,RANDOM URINE 28 MEQ/L; UREA NITROGEN RANDOM URINE 526 MG/DL
[2020-06-26 14:30] LABS: AMPHETAMINES LEVEL URINE NEGATIVE (NEGATIVE); BARBITURATES URINE NEGATIVE (NEGATIVE); BENZODIAZEPINES URINE NEGATIVE (NEGATIVE); CANNABINOIDS URINE NEGATIVE (NEGATIVE); COCAINE METABOLITE URINE NEGATIVE (NEGATIVE); METHADONE URINE NEGATIVE (NEGATIVE); OPIATES URINE NEGATIVE (NEGATIVE); PHENCYCLIDINE URINE NEGATIVE (NEGATIVE)
--- NOTE | 2020-06-26 14:43 | IPNPDOC ---
Subjective Date Seen The patient was seen on 06/26/20. Subjective Chief Complaint/HPI Patient is confused and looks like he cannot organize his thoughts. remains hypotensive after several liters of fluids, No fever or chills. Complains of extreme weakness and poor appetite and nausea and diarrhea. He has chronic shortness of breath. Objective Physical Examination General Exam: Positive: Cooperative, Mild Distress, Other (confused) Eye Exam: Positive: PERRLA, Conjunctiva & lids normal, EOMI; Negative: Sclera icteric ENT Exam: Positive: Atraumatic, Pharynx Normal, Other ENT (oral mucous membrane dry) Neck Exam: Positive: Supple; Negative: JVD, thyromegaly Chest Exam: Positive: Diminished, Other (Bilateral basal crackles) Heart Exam: Positive: Tachycardic, Normal S1, Normal S2 Telemetry: Positive: No significant arrhythmia Abdomen Exam: Positive: Normal bowel sounds, Soft; Negative: Tenderness Extremity Exam: Negative: Clubbing, Cyanosis, Edema Assessment /Plan Assessment Patient is a 44-year-old male with PARISH, Chronic steroid use, Migraines, Idiopathic intracranial hypertension, HTN, GERD, RLS, and a history with an unknown diagnosis resulting in progressive muscular weakness and hypoxia. Patient has been followed by both local pulmonology and neurology at [facility]. Unfortunately, a diagnosis to explain the patient's mentioned sym ptoms has yet to have been made. He has been in and out of this hospital since April 2020. Last admitted from 06/17/20 to 06/19/20 for possible community acquired pneumonia. CT chest on 06/17/20 showed Progressive multiple bilateral solid-appearing pulmonary parenchymal infiltrates consistent with multifocal organizing pneumonitis. He was discharged with augmentin and doxycycline which he was taking at home as instructed. He was having diarrhea 4 to 5 times a day. He presented to ED on 06/26/20 with fevers and chills at home, increased cough but no sputum production, weakness dizziness and confusion. He's had very poor fluid intake and has not had an appetite over the past few days since being discharged. He was found to have Velia with creatine> 8.0. He was admitted for VELIA and bilateral pneumonia vs pneumonitis. Shock possible hypovolemic vs septic shock on the back ground of being on ARB and diuretics and bactrim. possible source of infection is lung. Though there is no elevation of WBC , no fever Received 4 to 5 liters of fluids. will start on levophed On Zosyn. will add vancomycin. ? viral or Fungal infection cultures have been sent. Acute metabolic encephalopathy due to VELIA, shock, medications which he was taking which are contraindicated with renal failure like baclofen, cyclobenzaprine, cymbalta. He was on too high dose of lyrica for his renal function. VELIA creatinine at 7.1, Renal US OK Received about 5 liters of fluids. remains hypotensive will start on Levophed Transaminitis could be due to hypotension Chronic respiratory failure with hypoxia Chronic Hypoxia/ Chronic dyspnea Chronic steroid use. No pulmonary etiology has been demonstrated yet Etiology unclear but thought to be secondary to his underlying demyelinating polyneuropathy ( this has not been supported by available tests from [facility]) continue oxygen supplementation ABG. Weakness both legs and arms with muscle spasms. Weakness of bilateral upper / lower extremities possibly 2/2 Chronic inflammatory demyelinating polyneuropathy Patient has had extensive neurologic work-up at [facility], and extensive pulmonary workup without any definitive diagnosis. NO CIDP demonstrated . EMG no rmal, Mild carpaltunnel on the left. [facility] Neurology felt there is a large functional component to the weakness. Uses braces to walk. will hold cymbalta, reduce dose of lyrica, stop baclofen and cyclobenzaprine. Morbid obesity with PARISH Noncompliance with CPAP at home Chronic Steroid Use about 1.5 years on steroids. Pulmonology and has been monitoring a steroid taper for the last 6 weeks. P atient previously on 60 mg daily. Currently down to 20 mg daily. Similar presentation in 01/29 following a more rapid taper. Given 40 mg Solumedrol in the ED. Will continue prednisone 20 mg daily Idiopathic intracranial hypertension/ migraine reports that had allergic reaction to diamox. So was given topiramate by [facility] Neurology . Now he says that he is allergic to topamax. CSF pressure was 30 at one time Anxiety/Depression Continue on home seroquel and sertraline GERD PPI RLS Wan on Ropinirole, Lyrica, Now stopped. Insomnia Trazodone, plan to taper outpatient Plan/VTE VTE Prophylaxis Ordered?: Yes VS, I&O, 24H, Fishbone Vital Signs/I&O Vital Signs Date Time Temp Pulse Resp B/P (MAP) Pulse Ox O2 Delivery O2 Flow Rate FiO2 06/26/20 13:17 97 93 06/26/20 13:09 98.2 20 82/68 (73) 06/26/20 03:23 Nasal Cannula 4.0 I&O- Last 24 Hours up to 6 AM 06/26/20 06:00 Intake Total 1000 ml Balance 1000 ml Laboratory Data 24H LABS Laboratory Tests 2 06/26/20 03:16: Immature Granulocyte % (Auto) 0.5, Neutrophils (%) (Auto) 67.4H, Lymphocytes (%) (Auto) 25.9, Monocytes (%) (Auto) 6.0H, Eosinophils (%) (Auto) 0.1, Basophils (%) (Auto) 0.1, Neutrophils # (Auto) 5.2, Lymphocytes # (Auto) 2.0, Monocytes # (Auto) 0.5, Eosinophils # (Auto) 0.0, Basophils # (Auto) 0.0, Nucleated Red Blood Cells % (auto) 0.0, Anion Gap 10, Glomerular Filtration Rate 7.1L, Osmolality 315H, Calcium Level 8.2L, Total Bilirubin 0.5, Direct Bilirubin 0.2, Aspartate Amino Transf (AST/SGOT) 113H, Alanine Aminotransferase (ALT/SGPT) 135H, Alkaline Phosphatase 106, Total Creatine Kinase 412H, Creatine Kinase MB 1.9, Creatine Kinase MB Relative Index 0.46, Troponin I < 0.02, Total Protein 7.1, Albumin 3.5, Albumin/Globulin Ratio 1.0, Thyroid Stimulating Hormone (TSH) 3.860H, Salicylates Level 3.8L, Acetaminophen Level < 2.0L, Ethyl Alcohol Level < 0.003 06/26/20 03:17: Lactic Acid Level 1.2, Ammonia 18 06/26/20 03:48: POC pH (Misc Panel) 7.386, POC Base Excess (Misc Panel) -9.0L, POC Saturated Percent O2 (Misc) 93L, POC pO2 (Misc Panel) 65.0L, POC pCO2 (Misc Panel) 26.9L, POC HCO3 (Misc Panel) 16.1L, POC Total CO2 (Misc Panel) 17.0L 06/26/20 06:35: 06/26/20 10:39: Immature Granulocyte % (Auto) 0.6, Neutrophils (%) (Auto) 61.5, Lymphocytes (%) (Auto) 30.9, Monocytes (%) (Auto) 6.8H, Eosinophils (%) (Auto) 0.1, Basophils (%) (Auto) 0.1, Neutrophils # (Auto) 4.3, Lymphocytes # (Auto) 2.2, Monocytes # (Auto) 0.5, Eosinophils # (Auto) 0.0, Basophils # (Auto) 0.0, Nucleated Red Blood Cells % (auto) 0.0, Anion Gap 10, Glomerular Filtration Rate 9.0L, Calcium Level 7.2L 06/26/20 13:41: CBC/BMP Laboratory Tests 06/26/20 03:16 06/26/20 10:39 Microbiology Microbiology 06/26/20 Blood Culture, Received Pending 06/26/20 Blood Culture, Received Pending 06/26/20 Respiratory Virus Panel (PCR) (PHYLLIS) - Final, Complete RADHIKA JOVEL MD Jun 26, 2020 14:43
[2020-06-26] MEDS ORDERED: VANCOMYCIN INTERMITTENT/PULSE DOSING BY CLINICAL PHARMACIST PER DOSING PROTOCOL XX SCH (14:45)
[2020-06-26 15:20] LABS: ABG BASE EXCESS -7.4 (-2.0-2.0); ABG HCO3 17.4 MEQ/L (22.0-26.0); ABG O2 SATURATION 93.5 % (95.0-99.0); ABG PARTIAL PRESSURE CO2 33.3 mmHg (35.0-45.0); ABG PARTIAL PRESSURE O2 73.1 mmHg (75.0-100.0); ABG STANDARD HCO3 18.4 MEQ/L (22.0-26.0); ABG TOTAL CO2 18.5 MEQ/L (22.0-29.0); ABG pH (ARTERIAL) 7.337 UNITS (7.350-7.450)
[2020-06-26 15:21] LABS: CLOSTRIDIUM DIFFICILE PCR NEGATIVE (NEGATIVE)
[2020-06-26] MEDS ORDERED: LIDOCAINE 1% MDV 20ML VIAL As Ordered ONE (15:26)
[2020-06-26] MEDS: HYDROCORTISONE 100 MG/2 ML VIAL (J1720 PER 1) IV SCH ×2 (17:16→23:27)
[2020-06-26 17:36] VITALS: BP 104/63
[2020-06-26] MEDS: VANCOMYCIN HCL 1,000 MG, VIAL MATE ADAPTER 1 EACH in D5W 250 ML IV SCH ×2 (17:57→20:33)
[2020-06-26 18:39] VITALS: BP 105/68
[2020-06-26 20:00] VITALS: BP 139/90
[2020-06-26] MEDS: PANTOPRAZOLE 40MG TAB (PROTONIX) PO SCH (20:34)
[2020-06-26 22:00] VITALS: BP 97/56
[2020-06-27] VITALS (7 sets, daily range): BP systolic 94–144; BP diastolic 57–71
[2020-06-27] MEDS: ASPIRIN 81 MG ENTERIC TAB PO SCH (08:11)
[2020-06-27] MEDS: DOCUSATE SODIUM 100MG CAPSULE PO SCH ×3 (08:11→20:24)
[2020-06-27] MEDS: PREGABALIN 75 MG CAP(LYRICA) PO SCH (08:11)
[2020-06-27] MEDS: CALCIUM CARBONATE 500 MG CHEW U/D PO SCH ×3 (08:11→17:08)
[2020-06-27] MEDS: PIPERACILLIN/TAZOBACTAM SOD 4.5 GM in D5W MINI-BAG PLUS 100 ML IV SCH ×2 (08:12→20:24)
[2020-06-27] MEDS: METHYLPHENIDATE 5 MG TAB PO SCH (08:12)
[2020-06-27] MEDS: HEPARIN SOD (PORCINE) 5000UNITS/ML 1ML VIAL/SYRINGE SC SCH ×2 (08:12→20:25)
[2020-06-27] MEDS: HYDROCORTISONE 100 MG/2 ML VIAL (J1720 PER 1) IV SCH ×3 (08:12→23:27)
[2020-06-27] MEDS: CALCITRIOL 0.25 MCG CAP (S0169) PO SCH (08:12)
[2020-06-27] MEDS: METOPROLOL SUCC (TopROL XL) 50MG **XL** TAB PO SCH (09:00)
[2020-06-27 09:42] LABS: HEMATOCRIT 36.2 % (42.0-52.0); HEMOGLOBIN 11.1 g/dl (13.5-17.5); HEMOGLOBIN 11.4 g/dl (13.5-17.5); LYMPH # 1.5 10^3/uL (1.5-5.0); LYMPH % 27.2 % (24.0-44.0); MEAN CORPUSCULAR HEMOGLOBIN 28.2 pg (27.0-33.0); MEAN CORPUSCULAR HEMOGLOBIN 28.4 pg (27.0-33.0); MEAN CORPUSCULAR HGB CONC 31.5 g/dl (32.0-36.5); MEAN CORPUSCULAR HGB CONC 31.7 g/dl (32.0-36.5); MEAN CORPUSCULAR VOLUME 88.8 fl (80.0-96.0); MEAN CORPUSCULAR VOLUME 90.3 fl (80.0-96.0); MONO # 0.3 10^3/uL (0.0-0.8); MONO % 6.3 % (0.0-5.0); NEUTROPHILS # 3.6 10^3/uL (1.5-8.5); NEUTROPHILS % 66.3 % (36.0-66.0); PLATELET COUNT, AUTOMATED 203 10^3/uL (150-450); PLATELET COUNT, AUTOMATED 207 10^3/uL (150-450); RED BLOOD COUNT 3.94 10^6/uL (4.30-6.10); RED BLOOD COUNT 4.01 10^6/uL (4.30-6.10); WHITE BLOOD COUNT 5.4 10^3/uL (4.0-10.0)
[2020-06-27 09:58] LABS: CALCIUM LEVEL 7.8 MG/DL (8.5-10.1); CREATININE FOR GFR 2.27 MG/DL (0.70-1.30); GLOMERULAR FILTRATION RATE 33.7 (>60)
--- NOTE | 2020-06-27 11:27 | IPNPDOC ---
Subjective Date Seen The patient was seen on 06/27/20. Subjective Chief Complaint/HPI Feeling much better this morning. Not confused though he says he still feels a bit foggy. Does feel a little SOB more than usual. Good urine output. No fever or chills Objective Physical Examination General Exam: Positive: Alert, Cooperative, No Acute Distress Eye Exam: Positive: PERRLA, Conjunctiva & lids normal, EOMI; Negative: Sclera icteric ENT Exam: Positive: Atraumatic, Pharynx Normal, Other ENT (oral mucous membrane dry) Neck Exam: Positive: Supple; Negative: JVD, thyromegaly Chest Exam: Positive: Diminished, Other (Bilateral basal crackles) Heart Exam: Positive: Tachycardic, Normal S1, Normal S2 Telemetry: Positive: No significant arrhythmia Abdomen Exam: Positive: Normal bowel sounds, Soft; Negative: Tenderness Extremity Exam: Negative: Clubbing, Cyanosis, Edema Neuro Exam: Positive: Normal Speech, Strength at 5/5 X4 ext, Normal Tone Psych Exam: Positive: Memory Intact, Oriented x 3 Assessment /Plan Assessment Patient is a 44-year-old male with PARISH, Chronic steroid use, Migraines, Idiopathic intracranial hypertension, HTN, GERD, RLS, and a history with an unknown diagnosis resulting in progressive muscular weakness and hypoxia. Patient has been followed by both local pulmonology and neurology at . Unfortunately, a diagnosis to explain the patient's mentioned symptoms has yet to have been made. He has been in and out of this hospital since April 2020. Last admitted from 06/17/20 to 06/19/20 for possible community acquired pneumonia. CT chest on 06/17/20 showed Progressive multiple bilateral solid-appearing pulmonary parenchymal infiltrates consistent with multifocal organizing pneumonitis. He was discharged with augmentin and doxycycline which he was taking at home as instructed. He was having diarrhea 4 to 5 times a day. He presented to ED on 06/26/20 with fevers and chills at home, increased cough but no sputum production, weakness dizziness and confusion. He's had very poor fluid intake and has not had an appetite over the past few days since being discharged. He was found to have Velia with creatinine> 8.0. He was admitted for VELIA and bilateral pneumonia vs pneumonitis. Hypotension possible hypovolemic vs sepsis on the back ground of being on ARB and diuretics and bactrim. possible source of infection is lung. Though there is no elevation of WBC , no fever his procalcitonin is elevated. Received 5 liters of fluids. Did not need Levophed On Zosyn. MRSA pcr negative ? viral or Fungal infection cultures have been sent. Acute metabolic encephalopathy improving due to VELIA, shock, medications which he was taking which are contraindicated with renal failure like baclofen, cyclobenzaprine, cymbalta. He was on too high dose of lyrica for his renal function. VELIA improving. creatinine down to 2.2 from 8.7. Renal US OK Received about 5 liters of fluids. Bp better this am. Transaminitis could be due to hypotension Chronic respiratory failure with hypoxia Chronic Hypoxia/ Chronic dyspnea Chronic steroid use. No pulmonary etiology has been demonstrated yet Etiology unclear but thought to be secondary to his underlying demyelinating polyneuropathy ( this has not been supported by available tests from [facility]) continue oxygen supplementation on stress dose steroids at present. Weakness both legs and arms with muscle spasms. Weakness of bilateral upper / lower extremities possibly 2/2 Chronic inflammatory demyelinating polyneuropathy Patient has had extensive neurologic work-up at [facility], and extensive pulmonary workup without any definitive diagnosis. NO CIDP demonstrated . EMG normal, Mild carpaltunnel on the left. [facility] Neurology felt there is a large functional component to the weakness. Uses braces to walk. will hold cymbalta, reduce dose of lyrica, stop baclofen and cyclobenzaprine. Morbid obesity with PARISH Noncompliance with CPAP at home Chronic Steroid Use about 1.5 years on steroids. Pulmonology and has been monitoring a steroid taper for the last 6 weeks. Patient previously on 60 mg daily. Currently down to 20 mg daily. Similar presentation in 01/29 following a more rapid taper. Given 40 mg Solumedrol in the ED. Will continue prednisone 20 mg daily Idiopathic intracranial hypertension/ migraine reports that had allergic reaction to diamox. So was given topiramate by [facility] Neurology . Now he says that he is allergic to topamax. CSF pressure was 30 at one time Anxiety/Depression Continue on home seroquel and sertraline GERD PPI RLS Wan on Ropinirole, Lyrica, Now stopped. Insomnia Trazodone, plan to taper outpatient Plan/VTE VTE Prophylaxis Ordered?: Yes VS, I&O, 24H, Fishbone Vital Signs/I&O Vital Signs Date Time Temp Pulse Resp B/P (MAP) Pulse Ox O2 Delivery O2 Flow Rate FiO2 06/27/20 04:00 4.0 06/27/20 04:00 96.6 75 20 99/62 (74) 97 Nasal Cannula I&O- Last 24 Hours up to 6 AM 06/27/20 06:00 Intake Total 5070 ml Output Total 400 ml Balance 4670 ml Laboratory Data 24H LABS Laboratory Tests 2 06/26/20 13:41: Urine Color YELLOW, Urine Appearance CLOUDYH, Urine pH 5.0, Urine Specific Davis 1.015, Urine Protein 2+H, Urine Glucose (UA) NEGATIVE, Urine Ketones NEGATIVE, Urine Blood 1+H, Urine Nitrite NEGATIVE, Urine Bilirubin NEGATIVE, Urine Urobilinogen 0.2, Urine Leukocyte Esterase NEGATIVE, Urine WBC (Auto) 5H, Urine RBC (Auto) 1, Urine Hyaline Casts (Auto) 0, Urine Bacteria (Auto) NEGATIVE, Urine Squamous Epithelial Cells 0, Urine Mucus (Auto) SMALL, Urine Sperm (Auto) , Urine Random Sodium 28, Urine Random Urea Nitrogen 526, Urine Opiates Screen NEGATIVE, Urine Methadone Screen NEGATIVE, Urine Barbiturates Screen NEGATIVE, Urine Phencyclidine Screen NEGATIVE, Urine Amphetamines Screen NEGATIVE, Urine Benzodiazepines Screen NEGATIVE, Urine Cocaine Metabolite Screen NEGATIVE, Urine Cannabinoids Screen NEGATIVE, Clostridium difficile [id number] PRESUMPTIVE NEGATIVE, Clostridium difficile Toxin (PCR) NEGATIVE, Methicillin- Resist S.aureus DNA PCR NOT DETECTED 06/26/20 15:01: Blood Gas Bicarbonate Standard 18.4L, Arterial Blood pH 7.337L, Arterial Blood Partial Pressure CO2 33.3L, Arterial Blood Partial Pressure O2 73.1L, Arterial Blood Total CO2 18.5L, Arterial Blood HCO3 17.4L, Arterial Blood Base Excess - 7.4L, Arterial Blood Oxygen Saturation 93.5L 06/27/20 09:03: Immature Granulocyte % (Auto) 0.2, Neutrophils (%) (Auto) 66.3H, Lymphocytes (%) (Auto) 27.2, Monocytes (%) (Auto) 6.3H, Eosinophils (%) (Auto) 0.0, Basophils (%) (Auto) 0.0, Neutrophils # (Auto) 3.6, Lymphocytes # (Auto) 1.5, Monocytes # (Auto) 0.3, Eosinophils # (Auto) 0.0, Basophils # (Auto) 0.0, Nucleated Red Blood Cells % (auto) 0.0, Anion Gap 10, Glomerular Filtration Rate 33.7L, Calcium Level 7.8L, Magnesium Level 2.0 CBC/BMP Laboratory Tests 06/27/20 09:03 Microbiology Microbiology 06/26/20 Blood Culture - Preliminary, Resulted No growth after 24 hours . All specim... 06/26/20 Blood Culture - Preliminary, Resulted No growth after 24 hours . All specim... 06/26/20 Respiratory Virus Panel (PCR) (PHYLLIS) - Final, Complete RADHIKA JOVEL MD Jun 27, 2020 11:27
[2020-06-27] MEDS ORDERED: D5W 1,000 ML IV SCH (13:00)
[2020-06-27] MEDS: PANTOPRAZOLE 40MG TAB (PROTONIX) PO SCH (20:25)
[2020-06-27] MEDS ORDERED: RAMELTEON 8 MG TAB (ROZEREM) PO PRN (21:00)
[2020-06-27] MEDS ORDERED: VANCOMYCIN HCL 1,000 MG, VIAL MATE ADAPTER 1 EACH in D5W 250 ML IV SCH (23:00)
--- NOTE | 2020-06-27 23:36 | IPN ---
NEPHROLOGY PROGRESS NOTE DATE: 06/27/2020 SUBJECTIVE: The patient was seen and examined at the bedside today. The patient was given aggressive IV fluid hydration yesterday. He was also started on a Hydrocortisone stress dose. His urine output is improving. Renal function is getting better. However, the patient reports that he is still feeling very thirsty and labs also show that he is hypernatremic. The patient still seems a little bit confused. Cultures are still negative so far but he is empirically on IV antibiotics. OBJECTIVE: VITAL SIGNS: Temperature is 97.7 degrees Fahrenheit, blood pressure is 144/71, pulse is 105, respiratory rate of 20, saturating 94% on nasal cannula at 4 liters. INTAKE AND OUTPUT: Urine output recorded since overnight is 400 mL. Weight in the bed scale is 115.7 kg. PHYSICAL EXAMINATION: GENERAL APPEARANCE: The patient is awake, alert, oriented x2, laying in bed. HEAD AND NECK: Extraocular muscles intact. Pupils are equally round and reactive to light. Mucous membranes are dry. Neck is supple. There is no jugular venous distention. CARDIOVASCULAR: S1, S2, regular rate. EXTREMITIES: No edema of the bilateral lower extremities. RESPIRATORY: Chest is clear to auscultation bilaterally. Bilaterally currently no rales or rhonchi. ABDOMEN: Soft, positive bowel sounds, mild tenderness in the left lower quadrant. GENITOURINARY: Bladder is not palpable. MUSCULOSKELETAL: No clubbing, no cyanosis. Pulses are 2+. HEAT REGULATOR: No focal deficits. Power is 5/5 in all extremities. LAB REVIEW: CBC showed a WBC of 5.5, hemoglobin 11.4, platelet count 207. BMP showed sodium of 146, potassium 4, chloride 112, bicarbonate 24, BUN 46, creatinine is 2.27. Calcium is 7.8, magnesium is 2. CURRENT INPATIENT MEDICATIONS: The patient's medications were all reviewed by myself. He was not getting any IV fluid hydration, so I have started him on d5w at 125 mL an hour. He continues to be on IV Zosyn. No other significant change in the medications today as compared with yesterday. ASSESSMENT AND PLAN: 1. Acute renal failure - The patient has acute non oliguric renal failure which is responding to the IV fluid hydration. Because of hypernatremia, IV fluids are being change to d5w. Continue the oral hydration as well. 2. Hypernatremia - The patient's IV fluids have been changed to d5w. If needed, I would add the potassium to the IV fluids as well. 3. Hypotension - The patient is a stress dose of IV Hydrocortisone. Cultures are negative so far. His T-max so far is 123 degrees Fahrenheit. I am going to empirically add Vancomycin as well. Continue current dose of Zosyn. 4. History of chronic use of steroids Cortisone level is not available. Continue Hydrocortisone 100 mg IV q. 8 hourly. 5. Elevated liver enzymes - The patient was very hypotensive on arrival. LFTs will be repeated tomorrow morning. Elevated enzymes are most likely secondary to severe sepsis.
[2020-06-28] VITALS (7 sets, daily range): BP systolic 98–139; BP diastolic 50–76
[2020-06-28] MEDS: KCL 20MEQ IN D5W 1000ML 1,000 ML IV SCH ×2 (00:41→09:54)
[2020-06-28] MEDS: CALCITRIOL 0.25 MCG CAP (S0169) PO SCH (08:39)
[2020-06-28] MEDS: CALCIUM CARBONATE 500 MG CHEW U/D PO SCH ×3 (08:39→17:05)
[2020-06-28] MEDS: PREGABALIN 75 MG CAP(LYRICA) PO SCH (08:39)
[2020-06-28] MEDS: ASPIRIN 81 MG ENTERIC TAB PO SCH ×2 (08:39→09:39)
[2020-06-28] MEDS: HEPARIN SOD (PORCINE) 5000UNITS/ML 1ML VIAL/SYRINGE SC SCH ×2 (08:39→21:41)
[2020-06-28] MEDS: DOCUSATE SODIUM 100MG CAPSULE PO SCH (08:39)
[2020-06-28 08:40] LABS: HEMATOCRIT 31.5 % (42.0-52.0); HEMOGLOBIN 10.2 g/dl (13.5-17.5); LYMPH # 1.3 10^3/uL (1.5-5.0); LYMPH % 26.9 % (24.0-44.0); MEAN CORPUSCULAR HEMOGLOBIN 28.3 pg (27.0-33.0); MEAN CORPUSCULAR HGB CONC 32.4 g/dl (32.0-36.5); MEAN CORPUSCULAR VOLUME 87.3 fl (80.0-96.0); MONO # 0.3 10^3/uL (0.0-0.8); MONO % 5.9 % (0.0-5.0); NEUTROPHILS # 3.3 10^3/uL (1.5-8.5); NEUTROPHILS % 66.8 % (36.0-66.0); PLATELET COUNT, AUTOMATED 206 10^3/uL (150-450); RED BLOOD COUNT 3.61 10^6/uL (4.30-6.10); WHITE BLOOD COUNT 4.9 10^3/uL (4.0-10.0)
[2020-06-28 09:13] LABS: BLOOD UREA NITROGEN 21 MG/DL (7-18); CALCIUM LEVEL 7.9 MG/DL (8.5-10.1); CARBON DIOXIDE LEVEL 26 MEQ/L (21-32); CHLORIDE LEVEL 107 MEQ/L (98-107); CREATININE FOR GFR 1.34 MG/DL (0.70-1.30); GLOMERULAR FILTRATION RATE > 60.0 (>60); GLUCOSE, FASTING 166 MG/DL (70-100); POTASSIUM SERUM 3.3 MEQ/L (3.5-5.1); SODIUM LEVEL 141 MEQ/L (136-145)
[2020-06-28] MEDS: METOPROLOL SUCC (TopROL XL) 50MG **XL** TAB PO SCH (09:39)
[2020-06-28] MEDS: HYDROCORTISONE 100 MG/2 ML VIAL (J1720 PER 1) IV SCH ×2 (09:40→17:05)
[2020-06-28] MEDS: METHYLPHENIDATE 5 MG TAB PO SCH (09:41)
[2020-06-28] MEDS: PIPERACILLIN/TAZOBACTAM SOD 2.25 GM in D5W MINI-BAG PLUS 50 ML IV SCH ×3 (09:42→21:40)
[2020-06-28] MEDS: DULoxetine 30 MG CAP (CYMBALTA) PO SCH (09:53)
[2020-06-28] MEDS: BACLOFEN 10 MG TAB PO SCH ×3 (09:53→21:41)
[2020-06-28] MEDS: rOPINIRole 1MG TAB PO SCH ×3 (09:53→21:41)
[2020-06-28] MEDS: SERTRALINE HCL 25 MG TABLET PO SCH (09:53)
--- NOTE | 2020-06-28 13:03 | ECGEPIP ---
[facility] Test Date: 2020-06-27 Pat Name: ROLLY YANCEY Department: Room: [place] [address] Gender: Male [employer]: : 1975 Requested By: NIMCO Woody Order Number: [id number] Reading MD: Gloria Best Measurements Intervals [place] Rate: 87 P: 45 [place]: 162 QRS: -3 QRSD: 114 T: -1 QT: 374 QTc: 451 Interpretive Statements SINUS RHYTHM NON-SPECIFIC IVCD COMPARED TO 06/26/20 HR IS SLOWER Electronically Signed on 06-28-2020 13:02:50 EST by Gloria Best
--- NOTE | 2020-06-28 13:13 | IPNPDOC ---
Subjective Date Seen The patient was seen on 06/28/20. Subjective Chief Complaint/HPI Alert and oriented this morning. Still continues to have diarrhea no abdominal pain or nausea or vomiting. Objective Physical Examination General Exam: Positive: Alert, Cooperative, No Acute Distress Eye Exam: Positive: PERRLA, Conjunctiva & lids normal, EOMI; Negative: Sclera icteric ENT Exam: Positive: Atraumatic, Pharynx Normal, Other ENT (oral mucous membrane dry) Neck Exam: Positive: Supple; Negative: JVD, thyromegaly Chest Exam: Positive: Diminished, Other (Bilateral basal crackles) Heart Exam: Positive: Tachycardic, Normal S1, Normal S2 Telemetry: Positive: No significant arrhythmia Abdomen Exam: Positive: Normal bowel sounds, Soft; Negative: Tenderness Extremity Exam: Negative: Clubbing, Cyanosis, Edema Neuro Exam: Positive: Normal Speech, Strength at 5/5 X4 ext, Normal Tone Psych Exam: Positive: Memory Intact, Oriented x 3 Assessment /Plan Assessment Patient is a 44-year-old male with PARISH, Chronic steroid use, Migraines, Idiopathic intracranial hypertension, HTN, GERD, RLS, and a history with an unknown diagnosis resulting in progressive muscular weakness and hypoxia. Patient has been followed by both local pulmonology and neurology at [facility]. Unfortunately, a diagnosis to explain the patient's mentioned symptoms has yet to have been made. He has been in and out of this hospital since April 2020. Last admitted from 06/17/20 to 06/19/20 for possible community acquired pneumonia. CT chest on 06/17/20 showed Progressive multiple bilateral solid-appearing pulmonary parenchymal infiltrates consistent with multifocal organizing pneumonitis. He was discharged with augmentin and doxycycline which he was taking at home as instructed. He was having diarrhea 4 to 5 times a day. He presented to ED on 06/26/20 with increa Hypotension Now resolved. possible hypovolemic due to diarrhea vs sepsis on the back ground of being on ARB and diuretics and bactrim. possible source of infection is lung. Though there is no elevation of WBC , no fever his procalcitonin is elevated. on Zosyn Acute metabolic encephalopathy improved due to VELIA, shock, medications which he was taking which are contraindicated with renal failure like baclofen, cyclobenzaprine, cymbalta. He was on too high dose of lyrica for his renal function. His home meds have mostly been resumed. VELIA improved continue IVF as still having diarrhea had 8 episodes yesterday. Transaminitis could be due to hypotension Chronic respiratory failure with hypoxia Chronic Hypoxia/ Chronic dyspnea Chronic steroid use. No pulmonary etiology has been demonstrated yet Etiology unclear but thought to be secondary to his underlying demyelinating polyneuropathy ( this has not been supported by available tests from [facility]) continue oxygen supplementation on stress dose steroids at present. Weakness both legs and arms with muscle spasms. Weakness of bilateral upper / lower extremities possibly 2/2 Chronic inflammatory demyelinating polyneuropathy Patient has had extensive neurologic work-up at [facility], and extensive pulmo nary workup without any definitive diagnosis. NO CIDP demonstrated . EMG normal, Mild carpaltunnel on the left. [facility] Neurology felt there is a large functional component to the weakness. Uses braces to walk. Back on cymbalta, baclofen and cyclobenzaprine and amitriptyline lyrica still on reduced dose. Morbid obesity with PARISH Noncompliance with CPAP at home Chronic Steroid Use about 1.5 years on steroids. Pulmonology and has been following at present down to 18 mg / day Now on stress dose will resume home dose tomorrow. Idiopathic intracranial hypertension/ migraine reports that had allergic reaction to diamox. So was given topiramate by [facility] Neurology . Now he says that he is allergic to topamax. CSF pressure was 30 at one time He is now on Methazolamide which our pharmacy does not carry. Anxiety/Depression Continue on home seroquel and sertraline GERD PPI RLS on Ropinirole, Lyrica Plan/VTE VTE Prophylaxis Ordered?: Yes VS, I&O, 24H, Fishbone Vital Signs/I&O Vital Signs Date Time Temp Pulse Resp B/P (MAP) Pulse Ox O2 Delivery O2 Flow Rate FiO2 06/28/20 10:00 Nasal Cannula I&O- Last 24 Hours up to 6 AM 06/28/20 06:00 Intake Total 2700 ml Output Total 2475 ml Balance 225 ml Laboratory Data 24H LABS Laboratory Tests 2 06/28/20 08:05: Immature Granulocyte % (Auto) 0.4, Neutrophils (%) (Auto) 66.8H, Lymphocytes (%) (Auto) 26.9, Monocytes (%) (Auto) 5.9H, Eosinophils (%) (Auto) 0.0, Basophils (%) (Auto) 0.0, Neutrophils # (Auto) 3.3, Lymphocytes # (Auto) 1.3L, Monocytes # (Auto) 0.3, Eosinophils # (Auto) 0.0, Basophils # (Auto) 0.0, Nucleated Red Blood Cells % (auto) 0.0, Anion Gap 8, Glomerular Filtration Rate > 60.0, Calcium Level 7.9L CBC/BMP Laboratory Tests 06/28/20 08:05 Microbiology Microbiology 06/26/20 Blood Culture - Preliminary, Resulted No Growth after 48 hours. All Specime... 06/26/20 Blood Culture - Preliminary, Resulted No Growth after 48 hours. All Specime... 06/26/20 Respiratory Virus Panel (PCR) (PHYLLIS) - Final, Complete RADHIKA JOVEL MD Jun 28, 2020 13:13
[2020-06-28] MEDS: ONDANSETRON 4 MG ORAL DISINTEGRATING TAB SL PRN (14:26)
[2020-06-28] MEDS: METOCLOPRAMIDE INJ 10MG/2ML VIAL (J2765 PER 1) IV SCH (18:06)
--- NOTE | 2020-06-28 20:07 | IPN ---
NEPHROLOGY PROGRESS NOTE DATE: 06/28/2020 SUBJECTIVE: Jhon is seen and examined this morning at the bedside. He denies any overnight events or complaints. States he is still having 5-6 large, watery bowel movements. His renal function has recovered towards baseline with creatinine down to 1.3 today. Denies any vomiting. PHYSICAL EXAMINATION: VITAL SIGNS: Temperature 98.0, pulse 80, respiratory rate 18, blood pressure 139/65, saturating 94-96% on 4 liters nasal cannula. INTAKE AND OUTPUT: Intake yesterday was 910. Urine output was 2.5 liters. Urine output thus far today is already one liter. Weight in the bed scale today is 115.6 kg. GENERAL APPEARANCE: The patient is seen lying in bed, awake, alert, oriented, in no apparent distress. HEENT: The extraocular muscles are intact. Tongue is moist. NECK: Supple. Jugular veins are not elevated. HEART: Regular, S1, S2. There is no peripheral edema nor dependent edema. LUNGS: Occasional rhonchus but no clear crackles. SKIN: Warm and dry. Normal turgor. ABDOMEN: Soft and nontender. There are bowel sounds. EXTREMITIES: Negative clubbing, cyanosis, or edema. NEUROLOGICAL: He is oriented x3, interactive and conversational. LABORATORY STUDIES: Sodium 141, potassium 3.3, bicarbonate 26, BUN 21, creatinine 1.3, hemoglobin 10.2. Blood cultures no growth for 48 hours x2 sets. IMAGING: Kidney ultrasound June 26 shows no obstruction. INPATIENT MEDICATIONS: The patient is on d5w with 20 mEq of potassium chloride running at 125 mL an hour. He is on renally dosed Zosyn. His Hydrocortisone was decreased to 50 mg IV q. 8 hourly by the Primary Service. His remainder of medications are unchanged from prior. PROBLEMS: 1. Acute kidney injury on chronic kidney disease stage 2 his renal failure is resolving. His creatinine is down to 1.3 today. He continues to have recurrent watery diarrhea so I will continue IV fluids. He reports at least 7 episodes of diarrhea in the past 24 hours. 2. Hypernatremia it has resolved with hypotonic fluids. I am going to cut the rate of the fluids down now to 60 mL an hour. 3. Hypokalemia he is receiving supplementation along with his IV fluids. 4. Chronic steroid dependence with presumed adrenal insufficiency. He is receiving stress dose steroids at present and it is being decreased by the Primary Service, now on Hydrocortisone 50 mg q. 8 hourly. 5. Status post metabolic encephalopathy his mentation is much improved and he is on multiple interfering medications while he had the prior renal failure which was also predisposing him to confusion.
[2020-06-28] MEDS: PANTOPRAZOLE 40MG TAB (PROTONIX) PO SCH (21:41)
[2020-06-28] MEDS: AMITRIPTYLINE 50 MG TAB PO SCH (22:09)
[2020-06-28] MEDS: CYCLOBENZAPRINE 5MG TABLET PO SCH (22:09)
[2020-06-29] VITALS: BP 97/54
[2020-06-29] MEDS: HYDROCORTISONE 100 MG/2 ML VIAL (J1720 PER 1) IV SCH (01:57)
[2020-06-29] MEDS: METOCLOPRAMIDE INJ 10MG/2ML VIAL (J2765 PER 1) IV SCH ×3 (02:33→17:07)
[2020-06-29] MEDS: PIPERACILLIN/TAZOBACTAM SOD 2.25 GM in D5W MINI-BAG PLUS 50 ML IV SCH ×2 (03:40→08:37)
[2020-06-29] MEDS: ACETAMINOPHEN TAB 650MG DOSE (2X325MG) PO PRN ×2 (03:43→21:47)
[2020-06-29 05:34] LABS: HEMATOCRIT 32.1 % (42.0-52.0); HEMOGLOBIN 10.3 g/dl (13.5-17.5); LYMPH # 1.1 10^3/uL (1.5-5.0); LYMPH % 21.8 % (24.0-44.0); MEAN CORPUSCULAR HEMOGLOBIN 28.1 pg (27.0-33.0); MEAN CORPUSCULAR HGB CONC 32.1 g/dl (32.0-36.5); MEAN CORPUSCULAR VOLUME 87.5 fl (80.0-96.0); MONO # 0.3 10^3/uL (0.0-0.8); MONO % 5.2 % (0.0-5.0); NEUTROPHILS # 3.8 10^3/uL (1.5-8.5); NEUTROPHILS % 72.8 % (36.0-66.0); PLATELET COUNT, AUTOMATED 198 10^3/uL (150-450); RED BLOOD COUNT 3.67 10^6/uL (4.30-6.10); WHITE BLOOD COUNT 5.2 10^3/uL (4.0-10.0)
[2020-06-29 05:51] LABS: BLOOD UREA NITROGEN 13 MG/DL (7-18); CALCIUM LEVEL 8.2 MG/DL (8.5-10.1); CARBON DIOXIDE LEVEL 25 MEQ/L (21-32); CHLORIDE LEVEL 109 MEQ/L (98-107); CREATININE FOR GFR 1.15 MG/DL (0.70-1.30); GLOMERULAR FILTRATION RATE > 60.0 (>60); GLUCOSE, FASTING 136 MG/DL (70-100); POTASSIUM SERUM 3.1 MEQ/L (3.5-5.1); SODIUM LEVEL 144 MEQ/L (136-145)
[2020-06-29] MEDS ORDERED: POTASSIUM CHLORIDE 10 MEQ SR TABLET PO ONE (06:45)
[2020-06-29 08:00] VITALS: BP 115/64
[2020-06-29] MEDS: predniSONE 1 MG TAB PO SCH (08:34)
[2020-06-29] MEDS: CALCIUM CARBONATE 500 MG CHEW U/D PO SCH ×3 (08:35→17:07)
[2020-06-29] MEDS: predniSONE 5 MG TAB PO SCH (08:35)
[2020-06-29] MEDS: rOPINIRole 1MG TAB PO SCH ×3 (08:35→21:47)
[2020-06-29] MEDS: PREGABALIN 75 MG CAP(LYRICA) PO SCH ×2 (08:35→21:46)
[2020-06-29] MEDS: METOPROLOL SUCC (TopROL XL) 50MG **XL** TAB PO SCH (08:35)
[2020-06-29] MEDS: BACLOFEN 10 MG TAB PO SCH ×3 (08:36→21:47)
[2020-06-29] MEDS: METHYLPHENIDATE 5 MG TAB PO SCH (08:36)
[2020-06-29] MEDS: SERTRALINE HCL 25 MG TABLET PO SCH (08:36)
[2020-06-29] MEDS: HEPARIN SOD (PORCINE) 5000UNITS/ML 1ML VIAL/SYRINGE SC SCH ×2 (08:36→21:47)
[2020-06-29] MEDS: DULoxetine 30 MG CAP (CYMBALTA) PO SCH (08:36)
[2020-06-29] MEDS: CALCITRIOL 0.25 MCG CAP (S0169) PO SCH (08:36)
[2020-06-29 09:55] VITALS: BP 129/78
--- NOTE | 2020-06-29 12:43 | IPNPDOC ---
Subjective Date Seen The patient was seen on 06/29/20. Subjective Chief Complaint/HPI Continues to have severe diarrhea. C diff is negative. No abdominal pain. feeling over all better but still very tired. Objective Physical Examination General Exam: Positive: Alert, Cooperative, No Acute Distress Eye Exam: Positive: PERRLA, Conjunctiva & lids normal, EOMI; Negative: Sclera icteric ENT Exam: Positive: Atraumatic, Pharynx Normal, Other ENT (oral mucous membrane dry) Neck Exam: Positive: Supple; Negative: JVD, thyromegaly Chest Exam: Positive: Diminished, Other (Bilateral basal crackles) Heart Exam: Positive: Tachycardic, Normal S1, Normal S2 Telemetry: Positive: No significant arrhythmia Abdomen Exam: Positive: Normal bowel sounds, Soft; Negative: Tenderness Extremity Exam: Negative: Clubbing, Cyanosis, Edema Neuro Exam: Positive: Normal Speech, Strength at 5/5 X4 ext, Normal Tone Psych Exam: Positive: Memory Intact, Oriented x 3 Assessment /Plan Assessment Patient is a 44-year-old male with PARISH, Chronic steroid use, Migraines, Idiopathic intracranial hypertension, HTN, GERD, RLS, and a history with an unknown diagnosis resulting in progressive muscular weakness and hypoxia. Patient has been followed by both local pulmonology and [facility]y [facility]. Unfortunately, a diagnosis to explain the patient's mentioned symptoms has yet to have been made. He has been in and out of this hospital since April 2020. Last admitted from 06/17/20 to 06/19/20 for possible community acquired pneumonia. CT chest on 06/17/20 showed Progressive multiple bilateral solid-appearing pulmonary parenchymal infiltrates consistent with multifocal organizing pneumonitis. He was discharged with augmentin and doxycycline which he was taking at home as instructed. He was having diarrhea 4 to 5 times a day. He presented to ED on 06/26/20 with increased confusion, weakness. he was admitted for VELIA. Diarrhea c diff negative will get a whole GI panel ? antibiotic induced ? fungal patient on chronic prednisone. will consult ID. Hypokelmia replaced. Hypotension Now resolved. possible hypovolemic due to diarrhea vs sepsis on the back ground of being on ARB and diuretics and bactrim. possible source of infection is lung. Though there is no elevation of WBC , no fever his procalcitonin is elevated. on Zosyn Acute metabolic encephalopathy improved due to VELIA, shock, medications which he was taking which are contraindicated with renal failure like baclofen, cyclobenzaprine, cymbalta. He was on too high dose of lyrica for his renal function. His home meds have mostly been resumed. VELIA improved due to dehydration from diarrhea. Transaminitis could be due to hypotension Chronic respiratory failure with hypoxia Chronic Hypoxia/ Chronic dyspnea Chronic steroid use. No pulmonary etiology has been demonstrated yet Etiology unclear but thought to be secondary to his underlying demyelinating polyneuropathy ( this has not been supported by available tests from [facility]) continue oxygen supplementation restarted home prednisone. Weakness both legs and arms with muscle spasms. Weakness of bilateral upper / lower extremities possibly 2/2 Chronic inflammatory demyelinating polyneuropathy Patient has had extensive neurologic work-up at [facility], and extensive pulmonary workup without any definitive diagnosis. NO CIDP demonstrated . EMG normal, Mild carpaltunnel on the left. [facility] felt there is a large functional component to the weakness. Uses braces to walk. Back on cymbalta, baclofen and cyclobenzaprine and amitriptyline lyrica still on reduced dose. Morbid obesity with PARISH Noncompliance with CPAP at home Chronic Steroid Use about 1.5 years on steroids. Pulmonology and has been following at present down to 18 mg / day resumed home steroid. Idiopathic intracranial hypertension/ migraine reports that had allergic reaction to diamox. So was given topiramate by [facility] . Now he says that he is allergic to topamax. CSF pressure was 30 at one time He is now on Methazolamide which our pharmacy does not carry. Anxiety/Depression Continue on home seroquel and sertraline GERD PPI RLS on Ropinirole, Lyrica Plan/VTE VTE Prophylaxis Ordered?: Yes VS, I&O, 24H, Fishbone Vital Signs/I&O Vital Signs Date Time Temp Pulse Resp B/P (MAP) Pulse Ox O2 Delivery O2 Flow Rate FiO2 06/29/20 10:31 4.0 06/29/20 09:55 97.3 57 20 129/78 (95) 92 Nasal Cannula I&O- Last 24 Hours up to 6 AM 06/29/20 06:00 Intake Total 2075 ml Output Total 1350 ml Balance 725 ml Laboratory Data 24H LABS Laboratory Tests 2 06/29/20 05:09: Immature Granulocyte % (Auto) 0.2, Neutrophils (%) (Auto) 72.8H, Lymphocytes (%) (Auto) 21.8L, Monocytes (%) (Auto) 5.2H, Eosinophils (%) (Auto) 0.0, Basophils (%) (Auto) 0.0, Neutrophils # (Auto) 3.8, Lymphocytes # (Auto) 1.1L, Monocytes # (Auto) 0.3, Eosinophils # (Auto) 0.0, Basophils # (Auto) 0.0, Nucleated Red Blood Cells % (auto) 0.0, Anion Gap 10, Glomerular Filtration Rate > 60.0, Calcium Level 8.2L CBC/BMP Laboratory Tests 06/29/20 05:09 Microbiology Microbiology 06/26/20 Blood Culture - Preliminary, Resulted No Growth after 72 hours. All specime... 06/26/20 Blood Culture - Preliminary, Resulted No Growth after 72 hours. All specime... 06/26/20 Respiratory Virus Panel (PCR) (PHYLLIS) - Final, Complete RADHIKA JOVEL MD Jun 29, 2020 12:43
[2020-06-29 14:00] VITALS: BP 138/85
[2020-06-29] MEDS: PIPERACILLIN/TAZOBACTAM SOD 3.375 GM in D5W MINI-BAG PLUS 50 ML IV SCH ×2 (15:12→21:47)
[2020-06-29] MEDS: PANTOPRAZOLE 40MG TAB (PROTONIX) PO SCH (21:47)
[2020-06-29] MEDS: AMITRIPTYLINE 50 MG TAB PO SCH (21:47)
[2020-06-29] MEDS: CYCLOBENZAPRINE 5MG TABLET PO SCH (21:47)
[2020-06-29] MEDS: ONDANSETRON 4 MG ORAL DISINTEGRATING TAB SL PRN (21:47)
[2020-06-29 22:00] VITALS: BP 128/71
[2020-06-30] MEDS: PIPERACILLIN/TAZOBACTAM SOD 3.375 GM in D5W MINI-BAG PLUS 50 ML IV SCH ×4 (02:42→21:49)
[2020-06-30] MEDS: METOCLOPRAMIDE INJ 10MG/2ML VIAL (J2765 PER 1) IV SCH ×3 (02:42→17:04)
[2020-06-30 06:00] VITALS: BP 137/83
[2020-06-30 08:24] LABS: BASO % 0.3 % (0.0-1.0); EOS % 1.1 % (0.0-3.0); HEMATOCRIT 34.6 % (42.0-52.0); LYMPH # 1.6 10^3/uL (1.5-5.0); LYMPH % 45.5 % (24.0-44.0); MEAN CORPUSCULAR HEMOGLOBIN 28.2 pg (27.0-33.0); MEAN CORPUSCULAR HGB CONC 31.8 g/dl (32.0-36.5); MEAN CORPUSCULAR VOLUME 88.7 fl (80.0-96.0); MONO # 0.3 10^3/uL (0.0-0.8); MONO % 8.5 % (0.0-5.0); NEUTROPHILS # 1.5 10^3/uL (1.5-8.5); NEUTROPHILS % 43.5 % (36.0-66.0); PLATELET COUNT, AUTOMATED 195 10^3/uL (150-450); WHITE BLOOD COUNT 3.5 10^3/uL (4.0-10.0)
[2020-06-30 08:43] LABS: BLOOD UREA NITROGEN 15 MG/DL (7-18); C REACTIVE PROTEIN QUANTITATIV 3.45 MG/DL (0.00-0.30); CALCIUM LEVEL 8.5 MG/DL (8.5-10.1); CARBON DIOXIDE LEVEL 27 MEQ/L (21-32); CHLORIDE LEVEL 111 MEQ/L (98-107); CREATININE FOR GFR 1.01 MG/DL (0.70-1.30); GLOMERULAR FILTRATION RATE > 60.0 (>60); GLUCOSE, FASTING 97 MG/DL (70-100); POTASSIUM SERUM 3.4 MEQ/L (3.5-5.1); SODIUM LEVEL 145 MEQ/L (136-145)
--- NOTE | 2020-06-30 09:04 | CR ---
CONSULTATION DATE: 06/29/2020 REASON FOR CONSULTATION: I was asked to consult by Dr. Jessica Clemens for evaluation of pneumonia and diarrhea. HISTORY OF PRESENT ILLNESS: Jhon is a pleasant 44-year-old gentleman known to me from previous hospitalization who was admitted on June 17 with body aches, weakness, cough which was nonproductive, and shortness of breath. The patient was treated for pneumonia with Augmentin and doxycycline and was discharged home on the same antibiotics. He developed diarrhea which was severe, generalized weakness, and came back on the complaining of blurry vision. He had a head CT that was negative. He was discharged home and the next day he came back with a creatinine of 8.7 with a temperature of 100.3. Stool for C. difficile was negative. The patient was started on IV Zosyn and diarrhea has improved. He still has a headache and blurry vision. He has a cough with nonproductive phlegm which has improved. His O2 requirements are at 4 liters which is his usual requirement, and he is on Prednisone 18 mg daily which is back to his baseline dose. At some point the patient was on 60-80 mg of steroids in the past. He has lost weight since his Prednisone dose has decreased. He also has sleep apnea and uses CPAP at home but not in the hospital. MEDICAL HISTORY: 1. Chronic hypoxic respiratory failure. 2. Probably restrictive lung disease. 3. Chronic steroid dependence, currently on 18 mg daily and on PCP prophylaxis with Bactrim DS one tablet by mouth Monday, Monday, Monday. 4. Upper and lower extremity weakness. 5. Demyelinating disease with obstructive sleep apnea, not using his CPAP currently but uses it at home. 6. Hypertension. 7. Depression. 8. Nephrolithiasis. 9. Fatty liver with hepatomegaly. 10. Restless leg syndrome. 11. Migraine headache. 12. Idiopathic intracranial hypertension. 13. Gastroesophageal reflux disease. PAST SURGICAL HISTORY: 1. Appendectomy. 2. Cholecystectomy. 3. Inguinal hernia repair. SOCIAL HISTORY: He drinks socially. He denies tobacco or drug use. He is not . He raises his son alone. His father helps him when he is in the hospital. 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 ALLERGIES: ACETOZOLAMIDE, SILVER, TOPAMAX, TAPE. MEDICATIONS: - Zosyn 3.375 gm IV every 6 hours - Lyrica 150 mg by mouth twice a day - Prednisone 18 mg by mouth daily - Amitriptyline 50 mg by mouth once daily at bedtime - Reglan 5 mg IV every 8 hours - Zofran 4 mg as needed - Rozerem 8 mg by mouth once daily at bedtime as needed - Aspirin 81 mg by mouth daily - Baclofen 10 mg by mouth three times a day - Calcitriol 0.25 mcg daily - Methylphenidate 10 mg by mouth daily - Metoprolol 50 mg by mouth daily - Sertraline 75 mg by mouth daily - Cymbalta 60 mg by mouth daily - Requip 1 mg by mouth three times a day - Calcium carbonate 1000 mg by mouth with meals - Pantoprazole 40 mg by mouth once daily at bedtime - Cyclobenzaprine 5 mg by mouth once daily at bedtime LABORATORY DATA: White count 5.2, hemoglobin 10.3, hematocrit 32.1, platelets 198, 72% neutrophils, 21% lymphocytes, 5% monocytes. His white count has been normal during this whole admission. Sodium 144, potassium 3.1, chloride 109, bicarb 25, BUN 13, creatinine 1.15, glucose 136, calcium 8.2. His creatinine has improved from 8.7 on admission three days ago. Drug screen was negative. Alcohol level negative. Tylenol and salicylate normal. C. difficile negative. MRSA PCR negative. Blood cultures two sets on June 26 negative and respiratory panel was negative. IMAGING DATA: Renal ultrasound showed normal appearance of the kidneys with no hydronephrosis. Chest x-ray: Bilateral patchy parenchymal opacities, nonspecific probably due to pneumonia worse than on the prior exam. Procalcitonin 2.03. PHYSICAL EXAMINATION: General: He is a pleasant gentleman in no acute distress wearing oxygen at 4 liters with 95% saturation. Vital signs: Temperature 96.5, pulse 57, respirations 18, blood pressure 138/85. Heart: Normal S1, S2, distant. No murmurs, rubs or gallops appreciated. Lungs: Diminished breath sounds at the bases and a few crackles bilaterally. No wheezes or rhonchi. Abdomen is soft, nontender, nondistended with stretch fall and ecchymosis from Heparin syringes. Back: No CVA or lumbosacral tenderness. Extremities: No cyanosis, clubbing, or edema. No calf tenderness. Skin without any rashes. Neurologic exam: Alert and oriented times three. The patient moves around the room. He is able to sit without any difficulty. Motor strength symmetrical. Eyes dilated but reactive. IMPRESSION: This is a 44-year-old gentleman who was admitted June 17 to June 20 with pneumonia, treated with Augmentin and doxycycline following which he had severe diarrhea probably related to the Augmentin and acute kidney injury with a creatinine of 8.7. This has resolved. The patient is now on IV Zosyn and his respiratory status has clinically improved. He is back to 4 liters nasal cannula and has a rare cough. I reviewed CT chest from previous admission with Dr. Michelle which showed consolidative pneumonia and not pneumocystis pneumonia and nothing to suggest a fungal infection. The diarrhea probably was related to Augmentin as it has improved and his C. difficile was negative. His main concern also is that he has a headache and blurry vision, and he is concerned that he has elevated intracranial pressure and needs a lumbar puncture. The patient could not tolerate Diamox in the past due to allergy and rash and therefore that was discontinued. PLAN: 1. Repeat chest x-ray PA and lateral tomorrow to see if there is improvement in pneumonia. 2. Repeat CRP, sed rate, procalcitonin to decide on course of antibiotic. 3. Continue IV Zosyn. I would not use Vancomycin. He is clinically better. 4. Diarrhea probably related to Augmentin and not infectious as it has improved. 5. Consider lumbar puncture for therapeutic and diagnostic purposes as he states he has elevated intracranial pressure with pressures of 35 in the past, and he is having blurry vision and headache. 6. We will obtain a fungal workup for pneumonia but I suspect this was just bacterial in origin. 7. We will also obtain legionella antigen and pneumococcal antigen.
--- NOTE | 2020-06-30 09:15 | REP ---
INDICATION: pneumonia. COMPARISON: Comparison chest x-ray 26 June 2020. TECHNIQUE: Two views.. FINDINGS: There are extensive infiltrates in the right upper lobe, left perihilar region, and right base. The left-sided infiltrates appear a bit more extensive than on 26 June 2020. Increased markings in the right base are more prominent as well. The right upper lobe infiltrate shows a nodular area and some pleural thickening. Question cavitary change. The pleural angles are sharp. Cardiomediastinal silhouette is unchanged. Oxygen delivery tubing is seen. IMPRESSION: Increase in the extent of infiltrates left perihilar and right base region. Infiltrate in the right upper lobe unchanged in size. Question cavitary change in the right upper lobe.. <Electronically signed by Bryn Michelle > 06/30/20 [id number]
[2020-06-30] MEDS: ASPIRIN 81 MG ENTERIC TAB PO SCH (09:17)
[2020-06-30] MEDS: METHYLPHENIDATE 5 MG TAB PO SCH (09:17)
[2020-06-30] MEDS: HEPARIN SOD (PORCINE) 5000UNITS/ML 1ML VIAL/SYRINGE SC SCH ×2 (09:17→21:48)
[2020-06-30] MEDS: PREGABALIN 75 MG CAP(LYRICA) PO SCH ×2 (09:17→21:48)
[2020-06-30] MEDS: CALCIUM CARBONATE 500 MG CHEW U/D PO SCH ×3 (09:18→17:04)
[2020-06-30] MEDS: POTASSIUM CHLORIDE 10 MEQ SR TABLET PO SCH (09:18)
[2020-06-30] MEDS: SERTRALINE HCL 25 MG TABLET PO SCH (09:18)
[2020-06-30] MEDS: predniSONE 5 MG TAB PO SCH (09:18)
[2020-06-30] MEDS: BACLOFEN 10 MG TAB PO SCH ×3 (09:19→21:48)
[2020-06-30] MEDS: DULoxetine 30 MG CAP (CYMBALTA) PO SCH (09:19)
[2020-06-30] MEDS: predniSONE 1 MG TAB PO SCH (09:19)
[2020-06-30] MEDS: CALCITRIOL 0.25 MCG CAP (S0169) PO SCH (09:19)
[2020-06-30] MEDS: METOPROLOL SUCC (TopROL XL) 50MG **XL** TAB PO SCH (09:19)
[2020-06-30] MEDS: rOPINIRole 1MG TAB PO SCH ×3 (09:25→21:48)
[2020-06-30] MEDS ORDERED: POTASSIUM CHLORIDE 10 MEQ SR TABLET PO ONE (13:00)
--- NOTE | 2020-06-30 13:17 | IPNPDOC ---
Text Note Date of Service The patient was seen on 06/30/20. NOTE SUBJECTIVE: -No acute events overnight Objective General: Alert, Cooperative, No Acute Distress Eyes: PERRLA, Conjunctiva & lids normal, EOMI, anicteric ENT: Atraumatic, Pharynx Normal, MMM Neck: Supple, no JVD Chest: Bilateral basal crackles, otherwise moving air well Heart: RRR, Normal S1, Normal S2, no m/r/g Abdomen: Normal bowel sounds, Soft, NTND Extremities: no LE edema, WWP Neuro: Normal Speech, Strength at 5/5 X4 ext, Normal Tone Psych: AO x 3 Assessment: 44-year-old M with PARISH, Chronic steroid use, Migraines, Idiopathic intracranial hypertension, HTN, GERD, RLS, and progressive muscular weakness and hypoxia on home oxygen who follows with local pulmonology and neurology at [facility], recently treated with augmentin and doxycycline for possible multifocal PNA who was readmitted with diarrhea and noted worsening PNA and VELIA with now resolved diarrhea and VELIA but with newly noted possible RUL cavitary lesion. Diarrhea likely 2/2 recent PO antibiotics, because it resolved as soon as they were stopped. Resolved. -c diff negative Hypokakemia: repleted Hypotension: Now resolved. -Likely multifactorial 2/2 hypovolemic due to diarrhea vs sepsis on the back ground of being on ARB and diuretics and bactrim. Acute metabolic encephalopathy: resolved. -due to VELIA, shock, medications which he was taking which are contraindicated with renal failure like baclofen, cyclobenzaprine, cymbalta. He was on too high dose of lyrica for his renal function. -His home meds have mostly been resumed. VELAI: resolved, back to baseline. -due to dehydration from diarrhea. Transaminitis -could be due to hypotension -monitoring LFTs Chronic respiratory failure with hypoxia -continue home steroid therapy -No pulmonary etiology has been demonstrated yet -Etiology unclear but thought to be secondary to his underlying demyelinating polyneuropathy ( this has not been supported by available tests from [facility]) -continue oxygen supplementation -currently also with PNA with possible RUL cavitation noted on today's CXR --> will order f/u CT chest PNA: worsening per imaging despite negative procalcitonin -Day 5 of zosyn -Dr. Reyes consulted --> pending fungal studies -getting CT chest given noted possible cavitary lesion Weakness both legs and arms with muscle spasms. -Weakness of bilateral upper / lower extremities possibly 2/2 Chronic inflam matory demyelinating polyneuropathy -Patient has had extensive neurologic work-up at [facility], and extensive pulmonary workup without any definitive diagnosis. NO CIDP demonstrated . EMG normal, Mild carpaltunnel on the left. -[facility] felt there is a large functional component to the weakness. -Uses braces to walk. -Back on cymbalta, baclofen and cyclobenzaprine and amitriptyline -lyrica still on reduced dose. -Possibly also with some wasting due to chronic steroid therapy Morbid obesity with PARISH -Noncompliant with CPAP at home Chronic Steroid Use -about 1.5 years on steroids. -Pulmonology and has been following at present down to 18 mg / day -resumed home steroid. Idiopathic intracranial hypertension/ migraine -reports that had allergic reaction to diamox. So was given topiramate by [facility] . Now he says that he is allergic to topamax. -CSF pressure was 30 at one time -He is now on Methazolamide which our pharmacy does not carry. Anxiety/Depression -Continue on home seroquel and sertraline GERD -PPI RLS -on Ropinirole, Lyrica VS,Fishbone, I+O VS, Fishbone, I+O Laboratory Tests 06/30/20 07:15 Vital Signs Date Time Temp Pulse Resp B/P (MAP) Pulse Ox O2 Delivery O2 Flow Rate FiO2 06/30/20 09:30 4.0 06/30/20 09:19 60 136/80 06/30/20 06:00 97.6 18 94 Nasal Cannula I&O- Last 24 Hours up to 6 AM 06/30/20 06:00 Intake Total 2000 ml Output Total 420 ml Balance 1580 ml XIOMARA OLIVIA MD Jun 30, 2020 13:17
[2020-06-30 13:28] VITALS: BP 150/91
[2020-06-30] MEDS ORDERED: ISOVUE-370 76% 100ML VIAL As Ordered ONE (13:30)
--- NOTE | 2020-06-30 14:44 | REP ---
INDICATION: cavitary lesion. COMPARISON: Comparison chest CT study 17 June 2020. Comparison chest x-ray 30 June 2020 and 26 June 2020.. TECHNIQUE: 75 mL of intravenous Isovue 370 is administered. Helical scanning is acquired. 3 mm axial images are generated. Coronal and sagittal MPR and coronal MIP images are provided. FINDINGS: The digital preliminary intensive care unit nurse radiograph demonstrates extensive diffuse interstitial consolidation throughout the lung solis bilaterally. There are clips in right upper quadrant of the abdomen. Axial CT images show new coarse ill-defined interstitial opacities throughout the upper lobes bilaterally. These are new when compared with the June 17, 2020 prior study. There is more extensive multifocal interstitial opacity in the lower lobes as well. Some of the lower lobe opacity seen on 17 June 2020 have become less confluent. No mediastinal or hilar mass or adenopathy is seen. Fatty infiltration of the liver is again noted. Normal adrenal glands are seen. Accessory splenule is a are observed in the left upper quadrant as before. No pleural effusion or pericardial effusion is seen. And no bony destructive lesion is seen. IMPRESSION: Progressive and now extensive pneumonia with infiltrates throughout the upper lobes and extensively in the lower lobes bilaterally. Fatty infiltration of the liver. <Electronically signed by Bryn Michelle > 06/30/20 [id number]
[2020-06-30] MEDS: amLODIPine 5 MG TAB PO SCH (14:47)
--- NOTE | 2020-06-30 16:58 | IPN ---
PROGRESS NOTE DATE: 06/30/2020 Jhon is doing well. He is stable. He was on the phone with [employer] when I was there. He did not want to hang up. He states his cough is stable. His shortness of breath is at baseline. He is on 4 liters oxygen and prednisone 18 mg daily. Currently day #5 of intravenous (IV) Zosyn. His white count is 3.5, hemoglobin 11, hematocrit 34.6, platelets 195, 43% neutrophils, 45% lymphocytes, 8% monocytes. Sodium 145, potassium 3.4, chloride 111, bicarbonate 27, BUN 15, creatinine 1.01, glucose 97, calcium 8.5. C-reactive protein (CRP) 3.45, procalcitonin 0.09, down from 2.03. Throat culture is negative. Respiratory panel on 06/26/2020 is negative. GI panel on 06/26/2020 is pending. Clostridium (C) difficile was negative. Chest CT scan done on 06/30/2020: Progressive and now extensive pneumonia with infiltrates throughout the upper lobes as well as extensive pneumonia in lower lobes, fatty liver. This is more extensive compared to CT scan on June 17, 2020. I reviewed the CT scan findings with Dr. Michelle. Chest x-ray shows also increase in extensive infiltrates of the left perihilar right basal region and right upper lobe. Laboratories also pending: Cryptococcal antigen and antibody titer, aspergillus antibody, Beta 1,3 glucan, aspergillus galactomannan. IMPRESSION: 1. Progressive multifocal pneumonia on CAT scan. Patient is clinically at baseline. He has a dry cough and prednisone dose is 18 mg, oxygen at [address] scan was reviewed with Dr. Michelle. Possibility of fungal pneumonia is in the differential, especially that his procalcitonin has normalized. 2. Acute renal failure has resolved. 3. Elevated intracranial pressure. Patient states his lumbar puncture, when it was done, had an opening pressure of 35 and he complains of blurry vision. PLAN: Will discuss with pulmonary CT scan findings, whether these can be worked up as an outpatient. If he does not improve, may repeat CT scan in 2 weeks especially that he is clinically better. Will order histoplasma antigen antibody as well. Case has been discussed with Dr. Hooper, who will order a lumbar puncture to rule out hydrocephalus. Will discontinue Zosyn tomorrow after discussion with pulmonary, especially since his procalcitonin has normalized and his cough is nonproductive.
[2020-06-30] MEDS: AMITRIPTYLINE 50 MG TAB PO SCH (21:48)
[2020-06-30] MEDS: PANTOPRAZOLE 40MG TAB (PROTONIX) PO SCH (21:48)
[2020-06-30] MEDS: CYCLOBENZAPRINE 5MG TABLET PO SCH (21:48)
[2020-06-30 22:00] VITALS: BP 147/86
[2020-07-01] MEDS: METOCLOPRAMIDE INJ 10MG/2ML VIAL (J2765 PER 1) IV SCH ×3 (02:07→17:24)
[2020-07-01] MEDS: PIPERACILLIN/TAZOBACTAM SOD 3.375 GM in D5W MINI-BAG PLUS 50 ML IV SCH ×4 (02:07→21:46)
[2020-07-01 06:00] VITALS: BP 133/83
[2020-07-01 06:35] LABS: HEMATOCRIT 34.6 % (42.0-52.0); MEAN CORPUSCULAR HEMOGLOBIN 28.1 pg (27.0-33.0); MEAN CORPUSCULAR HGB CONC 31.8 g/dl (32.0-36.5); MEAN CORPUSCULAR VOLUME 88.3 fl (80.0-96.0); PLATELET COUNT, AUTOMATED 240 10^3/uL (150-450); RED BLOOD COUNT 3.92 10^6/uL (4.30-6.10); WHITE BLOOD COUNT 4.3 10^3/uL (4.0-10.0)
[2020-07-01 07:02] LABS: BLOOD UREA NITROGEN 16 MG/DL (7-18); CALCIUM LEVEL 8.2 MG/DL (8.5-10.1); CARBON DIOXIDE LEVEL 28 MEQ/L (21-32); CHLORIDE LEVEL 111 MEQ/L (98-107); CREATININE FOR GFR 0.87 MG/DL (0.70-1.30); GLOMERULAR FILTRATION RATE > 60.0 (>60); GLUCOSE, FASTING 87 MG/DL (70-100); POTASSIUM SERUM 3.5 MEQ/L (3.5-5.1); SODIUM LEVEL 144 MEQ/L (136-145)
[2020-07-01] MEDS: HEPARIN SOD (PORCINE) 5000UNITS/ML 1ML VIAL/SYRINGE SC SCH ×2 (07:51→21:46)
[2020-07-01 08:25] LABS: ANISOCYTOSIS 1+; ATYPICAL LYMPH 7 % (0-5); EOSINOPHILS 1 % (0-3); LYMPHOCYTES 47 % (16-44); MONOCYTES 7 % (0-5); NEUTROPHILS 38 % (28-66); PLATELET ESTIMATE NORMAL (NORMAL)
[2020-07-01] MEDS: CALCIUM CARBONATE 500 MG CHEW U/D PO SCH ×3 (08:46→17:24)
[2020-07-01] MEDS: ASPIRIN 81 MG ENTERIC TAB PO SCH (08:47)
[2020-07-01] MEDS: DULoxetine 30 MG CAP (CYMBALTA) PO SCH (08:47)
[2020-07-01] MEDS: predniSONE 5 MG TAB PO SCH (08:47)
[2020-07-01] MEDS: BACLOFEN 10 MG TAB PO SCH ×3 (08:47→21:45)
[2020-07-01] MEDS: PREGABALIN 75 MG CAP(LYRICA) PO SCH ×2 (08:47→21:45)
[2020-07-01] MEDS: predniSONE 1 MG TAB PO SCH (08:47)
[2020-07-01] MEDS: amLODIPine 5 MG TAB PO SCH (08:48)
[2020-07-01] MEDS: POTASSIUM CHLORIDE 10 MEQ SR TABLET PO SCH (08:48)
[2020-07-01] MEDS: SERTRALINE HCL 25 MG TABLET PO SCH (08:49)
[2020-07-01] MEDS: METOPROLOL SUCC (TopROL XL) 50MG **XL** TAB PO SCH (08:49)
[2020-07-01] MEDS: METHYLPHENIDATE 5 MG TAB PO SCH (08:49)
[2020-07-01] MEDS: rOPINIRole 1MG TAB PO SCH ×3 (08:49→21:45)
[2020-07-01] MEDS: CALCITRIOL 0.25 MCG CAP (S0169) PO SCH (08:49)
[2020-07-01 14:00] VITALS: BP 136/75
--- NOTE | 2020-07-01 15:20 | IPNPDOC ---
Text Note Date of Service The patient was seen on 07/01/20. NOTE SUBJECTIVE: -No acute events overnight -Reports that he feels well this morning but still endorses blurry vision and dull headache Objective General: Alert, Cooperative, No Acute Distress Eyes: PERRLA, Conjunctiva & lids normal, EOMI, anicteric ENT: Atraumatic, Pharynx Normal, MMM Neck: Supple, no JVD Chest: Bilateral basilar crackles, otherwise moving air well Heart: RRR, Normal S1, Normal S2, no m/r/g Abdomen: Normal bowel sounds, Soft, NTND Extremities: no LE edema, WWP Neuro: Normal Speech, Strength at 5/5 X4 ext, Normal Tone Psych: AO x 3 Labs: Reviewed, stable Assessment: 44-year-old M with PARISH, Chronic steroid use, Migraines, Idiopathic intracranial hypertension, HTN, GERD, RLS, and progressive muscular weakness and hypoxia on home oxygen who follows with local pulmonology and neurology at [facility], recently treated with augmentin and doxycycline for possible multifocal PNA who was readmitted with diarrhea and noted worsening PNA and VELIA with now resolved diarrhea and VELIA. Diarrhea likely 2/2 recent PO antibiotics, because it resolved as soon as they were stopped. Resolved. -c diff negative Hypokakemia: repleted Hypotension: Now resolved. -Likely multifactorial 2/2 hypovolemic due to diarrhea vs sepsis on the back ground of being on ARB and diuretics and bactrim. Acute metabolic encephalopathy: resolved. -due to VELIA, shock, medications which he was taking which are contraindicated with renal failure like baclofen, cyclobenzaprine, cymbalta. He was on too high dose of lyrica for his renal function. -His home meds have mostly been resumed. VELIA: resolved, back to baseline. -due to dehydration from diarrhea. Transaminitis -could be due to hypotension -monitoring LFTs Chronic respiratory failure with hypoxia -continue home steroid therapy -No pulmonary etiology has been demonstrated yet -Etiology unclear but thought to be secondary to his underlying demyelinating polyneuropathy ( this has not been supported by available tests from [facility]) -continue oxygen supplementation -currently also with PNA with possible RUL cavitation noted on 06/30 CXR --> f/u CT chest w/ contrast showed worsening opacities but no cavitations. Discussed with ID and decided to continue zosyn with plan to possibly dc today after discu ssion with pilm given the clinical improvement and normalization of procalcitonin. He also has pending fungal studies. PNA: Clinically improved however with worsening imaging -Day 6 of zosyn -Dr. Reyes consulted --> pending fungal studies. Tentatively planning to dc zosyn today after imaging findings discussion with pulm -06/30 CT chest showed worsening opacities but no cavitations Weakness both legs and arms with muscle spasms. -Weakness of bilateral upper / lower extremities possibly 2/2 Chronic inflammatory demyelinating polyneuropathy -Patient has had extensive neurologic work-up at [facility], and extensive pulmonary workup without any definitive diagnosis. NO CIDP demonstrated . EMG no rmal, Mild carpaltunnel on the left. -[facility] felt there is a large functional component to the weakness. -Uses braces to walk. -Back on cymbalta, baclofen and cyclobenzaprine and amitriptyline -lyrica still on reduced dose. -Possibly also with some wasting due to chronic steroid therapy Morbid obesity with PARISH -Noncompliant with CPAP at home Chronic Steroid Use -about 1.5 years on steroids. -Pulmonology and has been following at present down to 18 mg / day -resumed home steroid. Idiopathic intracranial hypertension/ migraine: reporting some blurry vision and headaches -reports that had allergic reaction to diamox. So was given topiramate by [facility] . Now he says that he is allergic to topamax. -CSF pressure was 30 at one time -He is now on Methazolamide which our pharmacy does not carry. And asked him to have it be brought in. -Discussing LP with Dr. Holland this AM for IR to measure the opening pressure Anxiety/Depression -Continue on home seroquel and sertraline GERD -PPI RLS -on Ropinirole, Lyrica VS,Fishbone, I+O VS, Fishbone, I+O Laboratory Tests 07/01/20 06:15 Vital Signs Date Time Temp Pulse Resp B/P (MAP) Pulse Ox O2 Delivery O2 Flow Rate FiO2 07/01/20 06:00 97.8 51 19 133/83 (100) 93 Nasal Cannula 4.0 I&O- Last 24 Hours up to 6 AM 07/01/20 06:00 Intake Total 1110 ml Output Total 1650 ml Balance -540 ml XIOMARA OLIVIA MD Jul 01, 2020 08:09
--- NOTE | 2020-07-01 17:10 | REP ---
INDICATION: LUMBAR PUNCTURE FOR OPEN PRESSURE. COMPARISON: None. TECHNIQUE: The procedure was performed under the direct supervision of Dr. Michelle. The risks and benefits of the procedure were explained to the patient and informed consent was obtained. The L3-4 interspace was localized using fluoroscopic guidance. The skin was prepped and draped in a sterile fashion. 1% lidocaine was used as a local anesthetic. Using fluoroscopic guidance a 22 gauge spinal needle was inserted and advanced into the thecal sac. FINDINGS: Opening pressure measured 16 cm of water. IMPRESSION: Fluoro guidance for lumbar puncture. Opening pressure measured 16 cm of water. <Electronically signed by Mansoor Cardozo > 07/01/20 1701 <Electronically signed by Bryn Michelle > 07/01/20 0928
[2020-07-01] MEDS: AMITRIPTYLINE 50 MG TAB PO SCH (21:45)
[2020-07-01] MEDS: PANTOPRAZOLE 40MG TAB (PROTONIX) PO SCH (21:45)
[2020-07-01] MEDS: CYCLOBENZAPRINE 5MG TABLET PO SCH (21:45)
[2020-07-01 22:00] VITALS: BP 134/77
[2020-07-02] MEDS: METOCLOPRAMIDE INJ 10MG/2ML VIAL (J2765 PER 1) IV SCH ×2 (02:35→10:10)
[2020-07-02] MEDS: PIPERACILLIN/TAZOBACTAM SOD 3.375 GM in D5W MINI-BAG PLUS 50 ML IV SCH (02:35)
[2020-07-02 06:00] VITALS: BP 147/97
[2020-07-02 06:20] LABS: BASO % 0.4 % (0.0-1.0); EOS # 0.1 10^3/uL (0.0-0.5); EOS % 2.1 % (0.0-3.0); HEMATOCRIT 36.8 % (42.0-52.0); HEMOGLOBIN 11.7 g/dl (13.5-17.5); MEAN CORPUSCULAR HEMOGLOBIN 27.7 pg (27.0-33.0); MEAN CORPUSCULAR HGB CONC 31.8 g/dl (32.0-36.5); MEAN CORPUSCULAR VOLUME 87.2 fl (80.0-96.0); MONO # 0.5 10^3/uL (0.0-0.8); MONO % 8.7 % (0.0-5.0); NEUTROPHILS # 2.7 10^3/uL (1.5-8.5); NEUTROPHILS % 50.1 % (36.0-66.0); PLATELET COUNT, AUTOMATED 292 10^3/uL (150-450); RED BLOOD COUNT 4.22 10^6/uL (4.30-6.10); WHITE BLOOD COUNT 5.3 10^3/uL (4.0-10.0)
[2020-07-02 06:41] LABS: BLOOD UREA NITROGEN 16 MG/DL (7-18); CALCIUM LEVEL 8.4 MG/DL (8.5-10.1); CARBON DIOXIDE LEVEL 27 MEQ/L (21-32); CHLORIDE LEVEL 108 MEQ/L (98-107); CREATININE FOR GFR 0.92 MG/DL (0.70-1.30); GLOMERULAR FILTRATION RATE > 60.0 (>60); GLUCOSE, FASTING 99 MG/DL (70-100); POTASSIUM SERUM 3.6 MEQ/L (3.5-5.1); SODIUM LEVEL 144 MEQ/L (136-145)
[2020-07-02] MEDS: CALCIUM CARBONATE 500 MG CHEW U/D PO SCH ×2 (08:54→12:25)
[2020-07-02] MEDS: METHYLPHENIDATE 5 MG TAB PO SCH (08:54)
[2020-07-02 08:55] VITALS: BP 146/94
[2020-07-02] MEDS: PREGABALIN 75 MG CAP(LYRICA) PO SCH (08:55)
[2020-07-02] MEDS: CALCITRIOL 0.25 MCG CAP (S0169) PO SCH (08:55)
[2020-07-02] MEDS: POTASSIUM CHLORIDE 10 MEQ SR TABLET PO SCH (08:55)
[2020-07-02] MEDS: SERTRALINE HCL 25 MG TABLET PO SCH (08:55)
[2020-07-02] MEDS: amLODIPine 5 MG TAB PO SCH (08:55)
[2020-07-02] MEDS: rOPINIRole 1MG TAB PO SCH (08:55)
[2020-07-02] MEDS: ASPIRIN 81 MG ENTERIC TAB PO SCH (08:55)
[2020-07-02] MEDS: HEPARIN SOD (PORCINE) 5000UNITS/ML 1ML VIAL/SYRINGE SC SCH (08:56)
[2020-07-02] MEDS: METOPROLOL SUCC (TopROL XL) 50MG **XL** TAB PO SCH (08:56)
[2020-07-02] MEDS: BACLOFEN 10 MG TAB PO SCH (08:56)
[2020-07-02] MEDS: DULoxetine 30 MG CAP (CYMBALTA) PO SCH (08:56)
[2020-07-02] MEDS: predniSONE 5 MG TAB PO SCH (08:56)
[2020-07-02] MEDS: predniSONE 1 MG TAB PO SCH (08:56)
--- NOTE | 2020-07-02 09:10 | DS.PDOC ---
Discharge Summary General Date of Admission Jun 26, 2020 at 05:48 Date of Discharge 07/02/2020 Attending Physician: XIOMARA OLIVIA MD Discharge Summary PROCEDURES PERFORMED DURING STAY: LP on 07/01/2020 ADMITTING DIAGNOSES: VELIA CAP DISCHARGE DIAGNOSES: CAP VELIA Metabolic encephalopathy Acute on Chronic hypoxic respiratory failure etiology unclear but thought to be secondary to his underlying demyelinating polyneuropathy Chronic steroid Dependence / PCP prophylaxis Weakness of bilateral upper / lower extremities possibly 2/2 Chronic inflammatory demyelinating polyneuropathy PARISH (not compliant with CPAP) Hypertension Depression Nephrolithiasis Fatty Liver Disease Restless legs Migraine headache History of Idiopathic Intracranial HTN GERD COMPLICATIONS/CHIEF COMPLAINT: Acute Kidney Injury,Pneumonia. HISTORY OF PRESENT ILLNESS: 44M with multiple comorbidities given his young age he has a history of hypertension, depression, chronic hypoxic respiratory failure, chronic inflammatory demyelinating polyneuropathy, who presented to the hospital for progressive shortness of breath and weakness. Patient was recently admitted and discharged from the hospital a few prior due to pneumonia with oral antibiotics with augmentin/doxy and endorsed 100% compliance with his medications but his shortness of breath never improved since discharge from the hospital and slowly worsened over a few days. Patient endorsed subjective fevers and chills at home. He endorsed a cough but no sputum production. He felt weak and sometimes dizzy. He reported very poor fluid intake. On review of systems patient endorsed dysuria. He denied chest pain or palpitations denies abdominal pain. HOSPITAL COURSE: At admission he reported diarrhea which was severe, generalized weakness, and complaining of blurry vision. He had a head CT that was negative. He was admitted with a creatinine of 8.7 with a temperature of 100.3. Stool for C. difficile was negative. The patient was started on IV Zosyn and diarrhea as soon as the augmentin/doxy was discontinued at admission. He continued to have a headache and blurry vision and had a LP on 07/01 for c/f ICH with high pressures but his opening pressure was 16. He cough with nonproductive phlegm improved and his O2 requirements returned to the baseline of 4 liters which is his usual requirement, and he was kept on Prednisone 18 mg daily which is his baseline dose. His procalcitonin normalized, symptoms improved, oxygenation was back at baseline and strength improved and he felt back at his recent baseline. Despite all this chest imaging looks worse, so ID was consulted and sent off fungal studies that are still pending. After discussion with Dr. Philip, he recommended outpatient f/u with his screener and blender Dr. Galindo and at this time will discharge him home with pulm and PCP follow up. DISCHARGE MEDICATIONS: Please see below. ALLERGIES: Please see below. PHYSICAL EXAMINATION ON DISCHARGE: VITAL SIGNS: Please see below. General: Alert, Cooperative, No Acute Distress Eyes: PERRLA, Conjunctiva & lids normal, EOMI, anicteric ENT: Atraumatic, Pharynx Normal, MMM Neck: Supple, no JVD Chest: Bilateral basilar crackles, otherwise moving air well Heart: RRR, Normal S1, Normal S2, no m/r/g Abdomen: Normal bowel sounds, Soft, NTND Extremities: no LE edema, WWP Neuro: Normal Speech, Strength at 5/5 X4 ext, Normal Tone Psych: AO x 3 LABORATORY DATA: Please see below. IMAGING: CXR: Lungs: Lung volumes are again shallow. There are patchy parenchymal opacities bilaterally, which appear new or worse than on the prior chest x-ray and also seem to have progressed compared to the prior CT scan. Involvement is most pronounced in the right upper lobe and in the left mid and lower lung zones. Pleural space: No pleural effusions or pneumothorax identified. Heart/Mediastinum: The heart is enlarged. Bones/joints: Unremarkable. IMPRESSION: Bilateral patchy parenchymal opacities, nonspecific but probably due to pneumonia, worse than on the prior exams. Renal US: Right kidney: The right kidney is normal in size and echogenicity with no hydronephrosis or stones identified. The right kidney measures 13.9 cm in length. Left kidney: The left kidney is normal in size and echogenicity with no stones or hydronephrosis identified. The left kidney measures 13.4 cm in length. Bladder: The bladder was only partially distended. No gross bladder wall thickening. No stones identified. Ureteral jets were sought but not visualized. IMPRESSION: Normal appearance of the kidneys. No hydronephrosis. CXR: There are extensive infiltrates in the right upper lobe, left perihilar region, and right base. The left-sided infiltrates appear a bit more extensive than on 26 June 2020. Increased markings in the right base are more prominent as well. The right upper lobe infiltrate shows a nodular area and some pleural thickening. Question cavitary change. The pleural angles are sharp. Cardiomediastinal silhouette is unchanged. Oxygen delivery tubing is seen. IMPRESSION: Increase in the extent of infiltrates left perihilar and right base region. Infiltrate in the right upper lobe unchanged in size. Question cavitary change in the right upper lobe.. CT chest: The digital preliminary tissue specialist radiograph demonstrates extensive diffuse interstitial consolidation throughout the lung solis bilaterally. There are clips in right upper quadrant of the abdomen. Axial CT images show new coarse ill-defined interstitial opacities throughout the upper lobes bilaterally. These are new when compared with the June 17, 2020 prior study. There is more extensive multifocal interstitial opacity in the lower lobes as well. Some of the lower lobe opacity seen on 17 June 2020 have become less confluent. No mediastinal or hilar mass or adenopathy is seen. Fatty infiltration of the liver is again noted. Normal adrenal glands are seen. Accessory splenule is a are observed in the left upper quadrant as before. No pleural effusion or pericardial effusion is seen. And no bony destructive lesion is seen. IMPRESSION: Progressive and now extensive pneumonia with infiltrates throughout the upper lobes and extensively in the lower lobes bilaterally. Fatty infiltration of the liver. LP: Fluoro guidance for lumbar puncture. Opening pressure measured 16 cm of water. PROGNOSIS: Fair, high risk for readmission given prior history of frequent admissions ACTIVITY: As tolerated DIET: 2g sodium DISCHARGE PLAN: Home with close pulm and PCP follow up DISPOSITION: Home with close pulm and PCP follow up DISCHARGE INSTRUCTIONS: Home with close pulm and PCP follow up ITEMS TO FOLLOWUP ON ON OUTPATIENT: PNA resolution DISCHARGE CONDITION: Stable TIME SPENT ON DISCHARGE: 56 minutes. Vital Signs/I&Os Vital Signs Date Time Temp Pulse Resp B/P (MAP) Pulse Ox O2 Delivery O2 Flow Rate FiO2 07/02/20 06:00 97.0 56 18 147/97 (114) 96 Nasal Cannula 4.0 I&O- Last 24 Hours up to 6 AM 07/02/20 05:59 Intake Total 1540 ml Output Total 1575 ml Balance -35 ml Laboratory Data Labs 24H Laboratory Tests 2 07/02/20 05:55: Immature Granulocyte % (Auto) 1.7, Neutrophils (%) (Auto) 50.1, Lymphocytes (%) (Auto) 37.0, Monocytes (%) (Auto) 8.7H, Eosinophils (%) (Auto) 2.1, Basophils (%) (Auto) 0.4, Neutrophils # (Auto) 2.7, Lymphocytes # (Auto) 2.0, Monocytes # (Auto) 0.5, Eosinophils # (Auto) 0.1, Basophils # (Auto) 0.0, Nucleated Red Blood Cells % (auto) 0.0, Anion Gap 9, Glomerular Filtration Rate > 60.0, Calcium Level 8.4L CBC/BMP Laboratory Tests 07/02/20 05:55 Microbiology Microbiology 06/30/20 Gastrointestinal Tract Panel (PCR) - Final, Complete 06/26/20 Blood Culture - Final, Complete NO GROWTH AFTER 5 DAYS 06/26/20 Blood Culture - Final, Complete NO GROWTH AFTER 5 DAYS 06/26/20 Respiratory Virus Panel (PCR) (PHYLLIS) - Final, Complete Discharge Medications Scheduled Amitriptyline HCl (Amitriptyline HCl) 25 Mg Tablet, 50 MG PO QHS, (Reported) Aspirin (Aspirin EC) 81 Mg Tablet.dr, 81 MG PO DAILY, (Reported) Baclofen (Baclofen) 10 Mg Tablet, 10 MG PO TID, (Reported) Calcitriol (Calcitriol) 0.25 Mcg Capsule, 0.25 MCG PO DAILY, (Reported) Calcium Carbonate (Tums) 200 Mg Tab.chew, 1,000 MG PO WM, (Reported) Cyclobenzaprine HCl (Cyclobenzaprine HCl) 5 Mg Tablet, 5 MG PO QHS, (Reported) Duloxetine HCl (Duloxetine HCl) 60 Mg Capsule.dr, 60 MG PO DAILY, (Reported) Ergocalciferol (Vitamin D2) (Vitamin D2) 50,000 Units Cap, 50,000 UNITS PO QWEEK, (Reported) MONDAYS Hydrochlorothiazide (Hydrochlorothiazide) 25 Mg Tablet, 25 MG PO DAILY, (Repor josé) Ketoconazole (Ketoconazole) 120 Ml Shampoo, 1 DOSE TOP Q2D, (Reported) Melatonin (Melatonin) 10 Mg Capsule, 10 MG PO QHS, (Reported) Methazolamide (Methazolamide) 25 Mg Tablet, 25 MG PO BID, (Reported) Methylphenidate HCl (Methylphenidate HCl) 5 Mg Tablet, 10 MG PO DAILY, (Reported) Metoprolol Succinate (Metoprolol Succinate) 100 Mg Tab.er.24h, 100 MG PO DAILY, (Reported) Pantoprazole Sodium (Pantoprazole Sodium) 40 Mg Tablet.dr, 40 MG PO QHS, (Reported) Potassium Chloride (Potassium Chloride) 10 Meq Tab.er.prt, 20 MEQ PO DAILY, (Reported) Prednisone (Prednisone) 1 Mg Tablet, 3 MG PO DAILY, (Reported) 18MG TOTAL Prednisone (Prednisone) 5 Mg Tablet, 15 MG PO DAILY, (Reported) 18MG TOTAL Pregabalin (Pregabalin) 300 Mg Capsule, 300 MG PO BID, (Reported) Quetiapine Fumarate (Quetiapine Fumarate) 50 Mg Tablet, 50 MG PO QHS, (Reported) Ropinirole HCl (Ropinirole HCl) 1 Mg Tablet, 1 MG PO TID, (Reported) Sertraline HCl (Sertraline HCl) 25 Mg Tablet, 75 MG PO DAILY, (Reported) Sulfamethoxazole/Trimethoprim (Bactrim Ds Tablet) 1 Each Tablet, 1 TAB PO 3XW, (Reported) MONDAY, MONDAY AND MONDAY Torsemide (Torsemide) 20 Mg Tablet, 20 MG PO DAILY, (Reported) Valsartan (Valsartan) 160 Mg Tablet, 160 MG PO DAILY, (Reported) Allergies Coded Allergies: TAPE (Verified Allergy, Intermediate, HIVES, 04/03/19) PLASTIC TAPE, PAPER TAPE [place] silver (Verified Allergy, Intermediate, HIVES, 04/03/19) topiramate (Verified Allergy, Unknown, HIVES,CONFUSION, 06/26/20) acetazolamide (Verified Adverse Reaction, Unknown, " out of it", 06/26/20) XIOMARA OLIVIA MD Jul 02, 2020 09:10
[2020-07-03 03:07] LABS: ASPERGILLUS GALACTOMANNAN AG 0.03 Index (0.00-0.49); FUNGITELL, SERUM <31 pg/mL (<80)
[2020-07-03 21:07] LABS: ASPERGILLUS FLAVUS ABY Negative (Neg:<1:1); ASPERGILLUS FUMIGATUS ABY Negative (Neg:<1:1); ASPERGILLUS NIGER ABY Negative (Neg:<1:1); CRYPTOCOCCUS ANTIGEN SER Negative (Negative)
--- NOTE | 2020-07-06 13:31 | CR ---
INITIAL INPATIENT CONSULTATION DATE: 06/26/2020 REQUESTING PHYSICIAN: Michael Amin MD REASON FOR CONSULTATION: Management of acute renal failure. CHIEF COMPLAINT: Patient presents to the hospital with weakness. HISTORY OF PRESENT ILLNESS: Jhon Pate is a 44-year-old male with a past medical history of chronic kidney disease stage 3; baseline creatinine of around 1.2, history of fatty liver disease, chronic hypoxic respiratory failure, chronic inflammatory demyelinating polyneuropathy, and multiple other comorbidities as mentioned below. He came to the hospital with progressive shortness of breath and weakness. He was recently discharged from the hospital after treatment of pneumonia. He was taking all of his medications. When he presented, he said that he had poor fluid intake. He did not have a good appetite. He was feeling very weak and lethargic. Further evaluation in the Emergency Room showed that he was in acute renal failure with a creatinine of 8.7 and a potassium of 5.2. He was admitted under the hospitalist service overnight. On-call admitting hospitalist actually called me and discussed the case with myself. Acute renal failure was attributed to dehydration, volume depletion and use of multiple medications, which will be mentioned below. He was started on I.V. fluid hydration. 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 Patient was unable to provide any reliable history. He was confused, oriented to place and person, but unable to provide me the last few days of events and the reason of his visit here. He was found to be hypotensive and I ordered a stat bolus of normal saline 1 liter. PAST MEDICAL HISTORY: Chronic kidney disease stage 3; baseline creatinine of around 1.2, chronic hypoxic respiratory failure, chronic steroid dependence, weakness of the bilateral upper and lower extremities, obstructive sleep apnea, hypertension, depression, nephrolithiasis in the past, fatty liver disease, restless leg syndrome, migraine headaches, idiopathic intracranial hypertension, gastroesophageal reflux disease, appendectomy in the past. PAST SURGICAL HISTORY: Status post cholecystectomy, status post hernia repair, and status post appendectomy. ALLERGIES: He is allergic to tape, Acetazolamide, silver and Topiramate. FAMILY HISTORY: No significant family history of end-stage renal disease requiring hemodialysis. SOCIAL HISTORY: He lives at home. There is no history of illicit drug abuse or smoking. He admitted to drinking socially. REVIEW OF SYSTEMS: Constitutional: He does report weakness, but he denies any fevers or chills. Eyes: He denies any blurry vision, double vision. ENT: He denies any dysphagia or odynophagia. Cardiovascular: He denies any chest pain or palpitations. Respiratory: He denies any shortness of breath. GI: He denies any nausea or vomiting. He does report decreased urine output. Genitourinary: He reports decreased urine output. Musculoskeletal: He reports muscle weakness. Skin: He denies any rashes or ulcers. 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 Hematological/Oncological: He denies any easy bleeding or bruising. All other review of systems is negative. PHYSICAL EXAMINATION: GENERAL: Patient is awake, alert, oriented x2, laying in bed, looks slightly lethargic. VITAL SIGNS: When I saw him in the morning, temperature 98 degrees Fahrenheit, blood pressure 87/48, pulse 96, respiratory rate 16, saturating 94% on room air. HEAD AND NECK: Extraocular muscles intact. Pupils equally round and reactive to light. Mucous membranes are moist. Neck is supple. There is no JVD. CARDIOVASCULAR: S1, S2, regular rate. No edema of the bilateral lower extremities. RESPIRATORY: Chest is clear to auscultation bilaterally. Bilateral equal air entry. No rales or rhonchi. ABDOMEN: Soft, positive bowel sounds, nontender. No organomegaly. GENITOURINARY: Bladder is not palpable. No hernia was noted. MUSCULOSKELETAL: No clubbing or cyanosis. Pulses are 2+. CYANIDE CASE HARDENER: Patient has mild asterixis. Otherwise, he follows commands and moves extremities. LABORATORY REVIEW: CBC showed WBC 7, hemoglobin 10.5, platelets 185,000. UA showed urine was cloudy with 1+ blood, 5 wbc. ABG done today morning showed pH of 7.33, pCO2 of 33, pO2 of 73, bicarb 17, O2 sat 93%. BMP today morning showed sodium 138, potassium 5.2, chloride 105, bicarb 23, BUN 77, creatinine 8.7. Lactic acid 1.2. Calcium 8.2. AST 113, ALT 135, ammonia 18. Procalcitonin 2. TSH 3.8. Urine toxicology was negative. Serology: C diff was negative, MRSA was negative. MICROBIOLOGY: Respiratory viral panel is negative so far. Blood cultures are pending. IMAGING STUDIES: A chest x-ray was done today morning, which showed bilateral patchy parenchymal opacities, probably due to pneumonia. Renal ultrasound was done, which showed normal appearance of the kidney, no hydronephrosis. HOME MEDICATIONS: Include: 1. Amitriptyline 50 mg q.h.s. 2. Aspirin 81 mg daily. 3. Baclofen 10 mg p.o. three times a day. 4. Calcitriol 0.25 mcg daily. 5. Tums 1 gram p.o. with meals. 6. Flexeril 5 mg q.h.s. 7. Duloxetine 60 mg daily. 8. Hydrochlorothiazide 25 mg daily. 9. Ketoconazole one dose every two days. 10.Melatonin 10 mg q.h.s. 11.Methazolamide 25 mg p.o. twice a day. 12.Methylphenidate 10 mg p.o. daily. 13.Metoprolol 100 mg p.o. daily. 14.Protonix 40 mg q.h.s. 15.Potassium chloride 20 mEq p.o. daily. 16.Prednisone 3 mg p.o. daily with 15 mg for a total of 18 mg daily. 17.Lyrica 300 mg p.o. twice a day. 18.Quetiapine 50 mg q.h.s. 19.Ropinirole 1 mg p.o. three times a day. 20.Sertraline 75 mg p.o. daily. 21.Bactrim one tablet p.o. three times a week. 22.Torsemide 20 mg p.o. daily. 23.Valsartan 160 mg p.o. daily. CURRENT INPATIENT MEDICATIONS: Patient's medications were all reviewed by myself. He was given normal saline I.V. bolus according to weight, 30 mL per kg, already in the morning. I gave him another one unit of normal saline bolus. He was getting I.V. Zosyn. He has been started on I.V. Vancomycin as well. Patient has been started on stress dosed steroid, Hydrocortisone 100 mg I.V. every 8 hours. He is on aspirin 81 mg daily, Baclofen 10 mg p.o. three times a day, Calcitriol 0.25 mcg daily, Tums tablet daily, Colace 100 mg p.o. twice a day, Cymbalta 60 mg daily, Methylphenidate 10 mg p.o. daily. Metoprolol Succinate has been on hold. Protonix 40 mg p.o. q.h.s. Prednisone has been stopped. Lyrica has been stopped. Requip continues to be 1 mg p.o. three times a day, Zoloft 75 mg p.o. daily. He was given a dose of Kayexalate 30 grams p.o. times one dose. Torsemide and Topiramate have been stopped. ASSESSMENT AND PLAN: 1. Acute renal failure: It is multifactorial and secondary to dehydration, volume depletion, use of hydrochlorothiazide, Bactrim, Torsemide and Valsartan at home. Continue aggressive I.V. fluid hydration. Continue the treatment of pneumonia as you are already doing. No urgent need of hemodialysis. I believe once he starts making urine with adequate hydration, his renal function will start improving. 2. Hyperkalemia: It is secondary to use of potassium and angiotensin-receptor trinity and acute renal failure. He was already given a dose of Kayexalate and he is getting I.V. fluid hydration. Repeat potassium level is already improving to 3.7. 3. Metabolic encephalopathy: It is multifactorial, secondary to multiple antipsychotic medications and possibly acute renal failure might be contributing as well. Most of the antipsychotic and neuropathy medications have already been stopped by the medical team. Continue to monitor for improvement. 4. Bilateral pneumonia: Patient is currently on I.V. Zosyn, dose is adequate for renal failure at this time. 5. Secondary hyperparathyroidism: Continue current dose of Calcitriol. 6. History of chronic use of steroids: Patient is currently on stress dose hydrocortisone. Thank you for involving me in the care of this patient. I should be happy to follow the patient along with you tomorrow morning. MTDD
== END 2020-07-02 13:48 | disposition home health service (06) | DRG 720 ==
LOC: M ED 01:34 → M ED INP 05:48 → M PCU 17:52 → M MSPAV 06-29 09:39
PROVIDERS: ADMIT Family Medicine; ATTEND Internal Medicine
PROC: 009U3ZZ Drainage of Spinal Canal, Percutaneous Approach (ICD-10-PCS; principal; 2020-07-01)
DX: A41.9 Sepsis, unspecified organism (principal); R57.1 Hypovolemic shock; G93.41 Metabolic encephalopathy; J96.11 Chronic respiratory failure with hypoxia; N17.9 Acute kidney failure, unspecified; K52.1 Toxic gastroenteritis and colitis; R65.21 Severe sepsis with septic shock; J18.9 Pneumonia, unspecified organism; K76.0 Fatty (change of) liver, not elsewhere classified; G61.81 Chronic inflammatory demyelinating polyneuritis; E87.5 Hyperkalemia; E66.01 Morbid (severe) obesity due to excess calories; Z68.41 Body mass index [BMI] 40.0-44.9, adult; G47.33 Obstructive sleep apnea (adult) (pediatric); F32.9 Major depressive disorder, single episode, unspecified; I10 Essential (primary) hypertension; G25.81 Restless legs syndrome; G43.909 Migraine, unspecified, not intractable, without status migrainosus; K21.9 Gastro-esophageal reflux disease without esophagitis; E86.0 Dehydration; Z79.82 Long term (current) use of aspirin; Z79.52 Long term (current) use of systemic steroids; Z79.899 Other long term (current) drug therapy; Z88.8 Allergy status to other drugs, medicaments and biological substances; Z91.048 Other nonmedicinal substance allergy status; G47.00 Insomnia, unspecified; G93.2 Benign intracranial hypertension; T36.95XA Adverse effect of unspecified systemic antibiotic, initial encounter

== ENCOUNTER 2020-07-05 18:16 | Inpatient (IN) | payer OTHER ==
[~2020-07-05] VITALS: Ht 172.7 cm; Wt 109.0 kg
[~2020-07-05 18:16] MED LIST changes: -AMITRIPTYLINE 25MG TABLET PO SCH; -QUEtiapine FUMARATE 50MG TAB PO SCH
[2020-07-05] MEDS ORDERED: NS 1,000 ML IV ONE (19:15)
[2020-07-05] MEDS ORDERED: ONDANSETRON 4MG/2ML VIAL IV ONE (19:15)
[2020-07-05 19:41] LABS: BASO % 0.6 % (0.0-1.0); EOS # 0.1 10^3/uL (0.0-0.5); EOS % 1.4 % (0.0-3.0); HEMATOCRIT 42.9 % (42.0-52.0); LYMPH # 2.7 10^3/uL (1.5-5.0); LYMPH % 37.4 % (24.0-44.0); MEAN CORPUSCULAR HEMOGLOBIN 28.2 pg (27.0-33.0); MEAN CORPUSCULAR HGB CONC 32.6 g/dl (32.0-36.5); MEAN CORPUSCULAR VOLUME 86.5 fl (80.0-96.0); MONO # 0.6 10^3/uL (0.0-0.8); MONO % 8.5 % (0.0-5.0); NEUTROPHILS # 3.5 10^3/uL (1.5-8.5); NEUTROPHILS % 48.2 % (36.0-66.0); PLATELET COUNT, AUTOMATED 435 10^3/uL (150-450); RED BLOOD COUNT 4.96 10^6/uL (4.30-6.10); WHITE BLOOD COUNT 7.2 10^3/uL (4.0-10.0)
[2020-07-05 19:56] LABS: INR 0.98; PROTHROMBIN TIME 13.2 SECONDS (12.5-14.3)
--- NOTE | 2020-07-05 20:10 | REPVR ---
PROCEDURE INFORMATION: Exam: XR Chest, 1 View Exam date and time: 07/05/2020 7:47 PM Age: 44 years old Clinical indication: Cough and dyspnea; Additional info: Dyspnea/cough TECHNIQUE: Imaging protocol: XR of the chest Views: 1 view. COMPARISON: CT Chest with contrast 06/30/2020 2:09 PM FINDINGS: Lungs: Suboptimal inspiratory effort. Patchy bilateral predominantly peripheral pulmonary infiltrates consistent with multifocal pneumonitis. Findings have improved in comparison to 06/30/2020. Pleural space: Unremarkable. No pleural effusion. No pneumothorax. Heart/Mediastinum: Unremarkable. No cardiomegaly. Bones/joints: Unremarkable. IMPRESSION: Patchy bilateral predominantly peripheral pulmonary infiltrates consistent with multifocal pneumonitis. Findings have improved in comparison to 06/30/2020. Electronically signed by: Johnny Santa On 07/05/2020 20:09:55 PM
--- NOTE | 2020-07-05 20:15 | ECGEPIP ---
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
[2020-07-05 20:21] LABS: ALBUMIN 3.6 GM/DL (3.2-5.2); ALT/SGPT 254 U/L (12-78); BILIRUBIN,DIRECT 0.4 MG/DL (0.0-0.2); BILIRUBIN,TOTAL 1.2 MG/DL (0.2-1.0); BLOOD UREA NITROGEN 17 MG/DL (7-18); CALCIUM LEVEL 9.1 MG/DL (8.5-10.1); CARBON DIOXIDE LEVEL 24 MEQ/L (21-32); CHLORIDE LEVEL 103 MEQ/L (98-107); CK-MB VALUE MASS < 1.0 NG/ML (<3.6); CPK CREATINE PHOSPHOKINASE 60 U/L (39-308); CREATININE FOR GFR 1.16 MG/DL (0.70-1.30); GLOMERULAR FILTRATION RATE > 60.0 (>60); GLUCOSE, FASTING 84 MG/DL (70-100); MB/CK RELATIVE INDEX 1.67 (< OR =4); NT-PRO BNP 141 PG/ML (<125); POTASSIUM SERUM 3.6 MEQ/L (3.5-5.1); SODIUM LEVEL 140 MEQ/L (136-145); TOTAL PROTEIN 7.4 GM/DL (6.4-8.2); TROPONIN I < 0.02 NG/ML (< 0.10)
[2020-07-05 20:23] LABS: RSV AMPLIFICATION NEGATIVE (NEGATIVE)
[2020-07-05] MEDS ORDERED: RAMELTEON 8 MG TAB (ROZEREM) PO PRN (22:30)
--- NOTE | 2020-07-05 22:39 | HPEPDOC ---
[facility] Medical History & Physical Date of Admission Jul 05, 2020 Date of Service: Jul 05, 2020 Primary Care Physician: JATINDER ASHBY DO Attending Physician: KIM NEWBERRY MD History and Physical TIME OF SERVICE: 930pm CHIEF COMPLAINT: vomiting HISTORY OF PRESENT ILLNESS: This 44 yr old M was last admitted from Jun 26 to for management of VELIA and CAP. Today he presented with c/o green colored vomiting that begun on Monday and non-bloody diarrhea. He came to the hospital today because he cant keep food down. Over the last 24 H he has had 6-8 episodes of vomiting and about 6 episodes of diarrhea. He denies having f/c, abdominal pain, back pain, rash, sick contacts, or eating food that was ordered from a restaurant. REVIEW OF SYSTEMS: 12-point review of systems negative except as listed in HPI PAST MEDICAL/ SURGICAL HISTORY: Chronic hypoxic respiratory failure Chronic steroid Dependence (on PCP prophylaxis) Hypertension / HFpEF Depression/Anxiety Nephrolithiasis Fatty Liver RLS Migraines PARISH (not compliant with CPAP) History of Idiopathic Intracranial HTN GERD Weakness of bilateral upper / lower extremities (per Neurologist this is NOT Chronic inflammatory demyelinating polyneuropathy) Appendectomy Cholecystectomy Inguinal hernia repair SOCIAL HISTORY: social etoh use denies tobacco use denies illicit drug use lives with his roommate has an adopted son 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 HOME MEDICATIONS: Please see below. PHYSICAL EXAMINATION: Vital Signs Date Time Temp Pulse Resp B/P (MAP) Pulse Ox O2 Delivery O2 Flow Rate FiO2 07/05/20 18:17 96.9 110 22 123/76 (92) 93 Nasal Cannula 4.0 GENERAL APPEARANCE: well nourished / well developed HEENT: NC in place CARDIOVASCULAR: RRR/NMRG/ radial pulses intact LUNGS: CTAB on RA ABDOMEN: obese MUSCULOSKELETAL: NCAT / has bilateral ankle braces INTEGUMENT: +tattoo / not flushed or pale NEUROLOGICAL: CN 2-12 grossly intact / speech not dysarthric PSYCHIATRIC: A & Ox 3, able to understand and follow all commands LABORATORY DATA: 07/05/20 19:33 Immature Granulocyte % (Auto) 3.9H, Neutrophils (%) (Auto) 48.2, Lymphocytes (%) (Auto) 37.4, Monocytes (%) (Auto) 8.5H, Eosinophils (%) (Auto) 1.4, Basophils (%) (Auto) 0.6, Neutrophils # (Auto) 3.5, Lymphocytes # (Auto) 2.7, Monocytes # (Auto) 0.6, Eosinophils # (Auto) 0.1, Basophils # (Auto) 0.0, Nucleated Red Blo od Cells % (auto) 0.3H, Prothrombin Time 13.2, Prothromb Time International Ratio 0.98, Anion Gap 13, Glomerular Filtration Rate > 60.0, Lactic Acid Level 0.7, Calcium Level 9.1, Total Bilirubin 1.2H, Direct Bilirubin 0.4H, Aspartate Amino Transf (AST/SGOT) 145H, Alanine Aminotransferase (ALT/SGPT) 254H, Alkaline Phosphatase 120H, Total Creatine Kinase 60, Creatine Kinase MB < 1.0, Creatine Kinase MB Relative Index 1.67, Troponin I < 0.02, QP-Shb-X-Type Natriuretic Peptide 141H, Total Protein 7.4, Albumin 3.6, Albumin/Globulin Ratio 0.9, Coronavirus (COVID-19)(PCR) NEGATIVE, Influenza Type A (RT-PCR) NEGATIVE, Influenza Type B (RT-PCR) NEGATIVE, Respiratory Syncytial Virus (PCR) NEGATIVE 07/05/20 19:40: POC Troponin I (Misc) 0.00 IMAGING: Chest xray IMPRESSION: Patchy bilateral predominantly peripheral pulmonary infiltrates consistent with multifocal pneumonitis. Findings have improved in comparison to 06/30/2020. MICROBIOLOGY: Respiratory panel neg ASSESSMENT: is a 44 yr old w a hx of HTN, depression/anxiety, RLS, fatty liver, migraines, chronic O2 dependence and extremity weakness of unclear cause who will be admitted for evaluation of n/v/d and transaminitis. PLAN: 1. N/V/D Possibly due to viral illness Plan: admit to medical floor / IVF / Zofran PRN / f/u C-diff bc he was recently hospitalized 2. Acute Transaminitis /NAFLD He denied having abdominal pain He has a hx of fatty liver but his LFTs are acutely elevated. Hep panel in Feb 2020 was negative Plan: f/u liver US, GGT and add on ETHO / trend LFTs & coags / for NAFL his PCP may consider a woods manager consult & discussing recommendations on exercise to assist with losing 3-5% of BW, along with GI consult to discuss if he is a candidate for role of pioglitazone & Vitamin E / since his LDL was 130 in Sep once his LFTs are back to their baseline his PCP may consider starting statins to reduce the risk of CVD which is most common cause of in patients with N AFLD 3. Long QTC He is on several QTc prolonging meds and will receive Zofran for n/v Plan: f/u EKG in the morning 4. Chronic hypoxic respiratory failure Plan: supplemental O2 5. Chronic steroid Dependence Plan: c/w PPI for GI px and Bactrim for PJP prophylaxis 6. Chronic Hypertension / HFpEF Plan: Hydrochlorothiazide, Metoprolol, Torsemide, 7. Depression/Anxiety Plan: Amitriptyline, Duloxetine, Sertraline, Valsartan 8. RLS Plan: Ropinirole 9. Weakness of bilateral upper / lower extremities (per Neurologist this is NOT Chronic inflammatory demyelinating polyneuropathy) Plan: fall precautions 10. Obesity Complicates care He has sleep apnea there is a documented hx of non-compliance with PAP Plan: the patient can f/u w his or her PCP for A woods manager consult, to discuss staring Saxenda, which is indicated in patients with a BMI >27 with co-existing DM, HTN or dyslipidemia to help with weight control as an adjunct to exercise / recommend cardiovascular exercise for 40 min 4-5 days a week (ie water aerobics) DVT Px w Lovenox Dispo: home after more than 2 midnights stay Home Medications Scheduled Amitriptyline HCl (Amitriptyline HCl) 25 Mg Tablet, 50 MG PO QHS Aspirin (Aspirin EC) 81 Mg Tablet.dr, 81 MG PO DAILY Baclofen (Baclofen) 10 Mg Tablet, 10 MG PO TID Calcitriol (Calcitriol) 0.25 Mcg Capsule, 0.25 MCG PO DAILY Calcium Carbonate (Tums) 200 Mg Tab.chew, 1,000 MG PO WM Cyclobenzaprine HCl (Cyclobenzaprine HCl) 5 Mg Tablet, 5 MG PO QHS Duloxetine HCl (Duloxetine HCl) 60 Mg Capsule.dr, 60 MG PO DAILY Ergocalciferol (Vitamin D2) (Vitamin D2) 50,000 Units Cap, 50,000 UNITS PO QWEEK MONDAYS Hydrochlorothiazide (Hydrochlorothiazide) 25 Mg Tablet, 25 MG PO DAILY Ketoconazole (Ketoconazole) 120 Ml Shampoo, 1 DOSE TOP Q2D Melatonin (Melatonin) 10 Mg Capsule, 10 MG PO QHS Methazolamide (Methazolamide) 25 Mg Tablet, 25 MG PO BID Methylphenidate HCl (Methylphenidate HCl) 5 Mg Tablet, 10 MG PO DAILY Metoprolol Succinate (Metoprolol Succinate) 100 Mg Tab.er.24h, 100 MG PO DAILY Pantoprazole Sodium (Pantoprazole Sodium) 40 Mg Tablet.dr, 40 MG PO QHS Potassium Chloride (Potassium Chloride) 10 Meq Tab.er.prt, 20 MEQ PO DAILY Prednisone (Prednisone) 1 Mg Tablet, 3 MG PO DAILY 18MG TOTAL Prednisone (Prednisone) 5 Mg Tablet, 15 MG PO DAILY 18MG TOTAL Pregabalin (Pregabalin) 300 Mg Capsule, 300 MG PO BID Quetiapine Fumarate (Quetiapine Fumarate) 50 Mg Tablet, 50 MG PO QHS Ropinirole HCl (Ropinirole HCl) 1 Mg Tablet, 1 MG PO TID Sertraline HCl (Sertraline HCl) 25 Mg Tablet, 75 MG PO DAILY Sulfamethoxazole/Trimethoprim (Bactrim Ds Tablet) 1 Each Tablet, 1 TAB PO 3XW MONDAY, MONDAY AND MONDAY Torsemide (Torsemide) 20 Mg Tablet, 20 MG PO DAILY Valsartan (Valsartan) 160 Mg Tablet, 160 MG PO DAILY Allergies Coded Allergies: TAPE (Verified Allergy, Intermediate, HIVES, 04/03/19) PLASTIC TAPE, PAPER TAPE [place] silver (Verified Allergy, Intermediate, HIVES, 04/03/19) topiramate (Verified Allergy, Unknown, HIVES,CONFUSION, 06/26/20) acetazolamide (Verified Adverse Reaction, Unknown, " out of it", 06/26/20) A-FIB/CHADSVASC A-FIB History Current/History of A-Fib/PAF?: No Current PO Anticoag Therapy: No KIM NEWBERRY MD Jul 05, 2020 22:39
--- NOTE | 2020-07-05 22:49 | REPVR ---
PROCEDURE INFORMATION: Exam: US Abdomen, Limited; Right Upper Quadrant Exam date and time: 07/05/2020 10:18 PM Age: 44 years old Clinical indication: Abnormal findings; Abnormal lab test; Elevated liver enzymes; Prior surgery; Surgery date: 6+ months; Surgery type: Cholecystectomy; Additional info: Transaminitis TECHNIQUE: Imaging protocol: US abdomen. Real time ultrasound with image documentation. Limited exam focused on the right upper quadrant. COMPARISON: RENAL US 06/26/2020 5:43 AM FINDINGS: Liver: Echogenic, consistent with fatty infiltration. Gallbladder: Surgically absent. Common bile duct: Mildly dilated, likely postsurgical. No stones. Pancreas: Unremarkable as visualized. Right kidney: No mass. No definite stones. No hydronephrosis. IMPRESSION: Fatty liver. Electronically signed by: Prieto Madrigal On 07/05/2020 22:48:47 PM
[2020-07-05 22:54] LABS: ETHYL ALCOHOL (ETHANOL) < 0.003 % (0.000-0.010)
[2020-07-05 22:55] VITALS: BP 108/77
[2020-07-05 22:57] LABS: HEMOGLOBIN A1c 6.2 %
[2020-07-05] MEDS: ONDANSETRON 4MG/2ML VIAL IV PRN (23:33)
[2020-07-05] MEDS: PANTOPRAZOLE 40MG TAB (PROTONIX) PO SCH (23:34)
[2020-07-05] MEDS: PREGABALIN 100 MG CAP (LYRICA) PO SCH (23:34)
[2020-07-05] MEDS: rOPINIRole 1MG TAB PO SCH (23:35)
[2020-07-05] MEDS: BACLOFEN 10 MG TAB PO SCH (23:35)
[2020-07-05] MEDS: AMITRIPTYLINE 25MG TABLET PO SCH (23:35)
[2020-07-05] MEDS: QUEtiapine FUMARATE 50MG TAB PO SCH (23:36)
[2020-07-06] MEDS: CYCLOBENZAPRINE 5MG TABLET PO SCH ×2 (02:53→21:06)
[2020-07-06 06:00] VITALS: BP 109/78
[2020-07-06 06:43] LABS: HEMATOCRIT 38.7 % (42.0-52.0); HEMOGLOBIN 12.2 g/dl (13.5-17.5); MEAN CORPUSCULAR HEMOGLOBIN 27.7 pg (27.0-33.0); MEAN CORPUSCULAR HGB CONC 31.5 g/dl (32.0-36.5); PLATELET COUNT, AUTOMATED 382 10^3/uL (150-450); WHITE BLOOD COUNT 6.4 10^3/uL (4.0-10.0)
[2020-07-06 06:53] LABS: INR 0.99; PROTHROMBIN TIME 13.3 SECONDS (12.5-14.3)
[2020-07-06 07:12] LABS: ALBUMIN 3.2 GM/DL (3.2-5.2); ALT/SGPT 221 U/L (12-78); BILIRUBIN,TOTAL 1.1 MG/DL (0.2-1.0); BLOOD UREA NITROGEN 21 MG/DL (7-18); CALCIUM LEVEL 8.5 MG/DL (8.5-10.1); CARBON DIOXIDE LEVEL 24 MEQ/L (21-32); CHLORIDE LEVEL 105 MEQ/L (98-107); CREATININE FOR GFR 2.05 MG/DL (0.70-1.30); GLOMERULAR FILTRATION RATE 37.9 (>60); GLUCOSE, FASTING 98 MG/DL (70-100); POTASSIUM SERUM 3.7 MEQ/L (3.5-5.1); SODIUM LEVEL 142 MEQ/L (136-145); TOTAL PROTEIN 6.3 GM/DL (6.4-8.2)
[2020-07-06] MEDS: NS 1,000 ML IV SCH ×3 (07:42→21:07)
[2020-07-06] MEDS: ONDANSETRON 4MG/2ML VIAL IV PRN ×2 (07:55→18:32)
[2020-07-06] MEDS: METOPROLOL SUCC (TopROL XL) 100MG *XL* TAB PO SCH (08:52)
[2020-07-06 08:58] LABS: AMYLASE 23 U/L (25-115); LIPASE 105 U/L (73-393)
[2020-07-06] MEDS ORDERED: BACTRIM 160MG/800MG DS TAB PO SCH (09:00)
[2020-07-06] MEDS ORDERED: TORSEMIDE 20 MG TAB PO SCH (09:00)
[2020-07-06] MEDS ORDERED: VALSARTAN 80 MG TAB (DIOVAN) PO SCH (09:00)
--- NOTE | 2020-07-06 09:28 | ECGEPIP ---
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
--- NOTE | 2020-07-06 09:49 | REP ---
INDICATION: VELIA COMPARISON: 06/26/2020 TECHNIQUE: Real time arenas scale ultrasound examination using curved array transducer. FINDINGS: Bilateral kidneys are normal in contour, size, echogenicity, and reniform shape without hydronephrosis, nephrolithiasis, cystic or renal mass lesion. Right kidney measures 12.0 x 5.6 x 5.1 cm. Left kidney measures 12.5 x 5.7 x 6.2 cm. Bladder is unremarkable. IMPRESSION: 1. Normal renal ultrasound. <Electronically signed by Alex Garsia > 07/06/20 [id number]
[2020-07-06] MEDS: METHYLPHENIDATE 5 MG TAB PO SCH (09:50)
[2020-07-06] MEDS: predniSONE 5 MG TAB PO SCH (09:51)
[2020-07-06] MEDS: ASPIRIN 81 MG ENTERIC TAB PO SCH (09:51)
[2020-07-06] MEDS: PREGABALIN 100 MG CAP (LYRICA) PO SCH ×2 (09:51→21:05)
[2020-07-06] MEDS: CALCITRIOL 0.25 MCG CAP (S0169) PO SCH (09:51)
[2020-07-06] MEDS: DULoxetine 30 MG CAP (CYMBALTA) PO SCH (09:51)
[2020-07-06] MEDS: predniSONE 1 MG TAB PO SCH (09:51)
[2020-07-06] MEDS: BACLOFEN 10 MG TAB PO SCH ×3 (09:51→21:06)
[2020-07-06] MEDS: CALCIUM CARBONATE 500 MG CHEW U/D PO SCH ×3 (09:51→16:52)
[2020-07-06] MEDS: SERTRALINE HCL 25 MG TABLET PO SCH (09:51)
[2020-07-06] MEDS: POTASSIUM CHLORIDE 10 MEQ SR TABLET PO SCH (09:51)
[2020-07-06] MEDS: rOPINIRole 1MG TAB PO SCH ×3 (09:51→21:06)
[2020-07-06] MEDS: ENOXAPARIN 40MG/0.4ML SYRINGE (J1650 PER 10MG) SC SCH (09:52)
[2020-07-06 11:10] LABS: HEPATITIS B SURFACE ANTIGEN NEGATIVE (NEGATIVE)
[2020-07-06 11:36] LABS: HEPATITIS C VIRUS ABY INDEX < 0.0 INDEX (<0.8)
[2020-07-06 11:37] LABS: HEPATITIS B CORE ANTIBODY IGM NEGATIVE (NEGATIVE)
[2020-07-06 11:40] LABS: HEPATITIS A ANTIBODY IGM NEGATIVE (NEGATIVE)
--- NOTE | 2020-07-06 12:18 | IPNPDOC ---
Text Note Date of Service The patient was seen on 07/06/20. NOTE Subjective: Patient is a 44-year-old male who presented to the ER with nausea / vomiting / abdominal pain / diarrhea and had been on 07/03/20. Patient was admitted to hospital service for intractable nausea and vomiting was also found to have elevated LFTs. Patient was seen and examined at the bedside. Currently patient denies any chest pain, shortness breath or palpitations. Reports some nausea without vomiting. Reports his abdominal pain is doing better. Denies any recent diarrhea, or urinary discomfort. Objective: Vitals (See below) General: Lying in bed, no acute distress, comfortable, AAOx3 HEENT: NC, AT CVS: +S1S2 Lungs: Fair air entry b/l, no significant wheezing / rhonchi / rales Abdomen: Soft, ND, no significant tenderness Extremities: No evidence of edema, - Calf tenderness Assessment and plan: Intractable N/V/D - possibly due to viral illness - Currently reports improvement of his nausea; no vomiting - No significant abdominal tenderness - Amylase / Lipase normal - Liver US 07/06: Fatty liver. - c/w supportive care VELIA - likely 2/2 pre-renal etiology - Cr has trended up - Urine electrolytes pending - Renal US 07/06: 1. Normal renal ultrasound. - Will avoid nephrotoxic medications - Will start IV fluid hydration Acute Transaminitis / NAFLD - History of fatty liver - LFTs improving - Hepatitis profile negative - Liver US negative - Will continue to follow trend Long QTC - Will follow up serial EKG Chronic hypoxic respiratory failure - c/w Supplemental oxygen Chronic steroid Dependence - c/w PPI for GI px - Will hold Bactrim for PJP prophylaxis - c/w Prednisone Chronic Hypertension / HFpEF - Will c/w Metoprolol - Will hold HCTZ and Torsemide (re: VELIA) Depression/Anxiety - c/w Amitriptyline, Duloxetine, Sertraline, Valsartan RLS - c/w Ropinirole Weakness of bilateral upper / lower extremities - per Neurologist this is NOT Chronic inflammatory demyelinating polyneuropathy) - c/w fall precautions - Will start PT Obesity - Complicates care GERD - c/w Protonix DVT prophylaxis - c/w Lovenox Disposition: - Awaiting clinical improvement VS,Amy, I+O VS, Amy, I+O Laboratory Tests 07/05/20 19:33 07/06/20 06:29 Vital Signs Date Time Temp Pulse Resp B/P (MAP) Pulse Ox O2 Delivery O2 Flow Rate FiO2 07/06/20 08:52 94 102/54 07/06/20 06:00 97.2 18 92 Nasal Cannula 4.0 I&O- Last 24 Hours up to 6 AM 07/06/20 06:00 Intake Total 1150 ml Output Total 0 ml Balance 1150 ml UMAIR HARRISON MD Jul 06, 2020 12:18
[2020-07-06 14:00] VITALS: BP 101/62
[2020-07-06 15:32] LABS: SODIUM,RANDOM URINE 67 MEQ/L
[2020-07-06 18:40] LABS: CALCIUM LEVEL 8.9 MG/DL (8.5-10.1); CREATININE FOR GFR 1.69 MG/DL (0.70-1.30); GLOMERULAR FILTRATION RATE 47.4 (>60); MAGNESIUM LEVEL 2.1 MG/DL (1.8-2.4)
[2020-07-06] MEDS: AMITRIPTYLINE 25MG TABLET PO SCH (21:06)
[2020-07-06] MEDS: QUEtiapine FUMARATE 50MG TAB PO SCH (21:06)
[2020-07-06] MEDS: PANTOPRAZOLE 40MG TAB (PROTONIX) PO SCH (21:06)
[2020-07-06 22:00] VITALS: BP 121/72
[2020-07-07 06:00] VITALS: BP 121/74
[2020-07-07 07:04] LABS: BASO % 0.3 % (0.0-1.0); EOS # 0.1 10^3/uL (0.0-0.5); EOS % 1.4 % (0.0-3.0); HEMATOCRIT 34.5 % (42.0-52.0); HEMOGLOBIN 11.2 g/dl (13.5-17.5); LYMPH # 2.3 10^3/uL (1.5-5.0); LYMPH % 39.8 % (24.0-44.0); MEAN CORPUSCULAR HEMOGLOBIN 28.9 pg (27.0-33.0); MEAN CORPUSCULAR HGB CONC 32.5 g/dl (32.0-36.5); MEAN CORPUSCULAR VOLUME 89.1 fl (80.0-96.0); MONO # 0.6 10^3/uL (0.0-0.8); MONO % 9.9 % (0.0-5.0); NEUTROPHILS # 2.7 10^3/uL (1.5-8.5); NEUTROPHILS % 46.7 % (36.0-66.0); PLATELET COUNT, AUTOMATED 312 10^3/uL (150-450); RED BLOOD COUNT 3.87 10^6/uL (4.30-6.10); WHITE BLOOD COUNT 5.8 10^3/uL (4.0-10.0)
[2020-07-07 07:31] LABS: ALBUMIN 2.8 GM/DL (3.2-5.2); ALT/SGPT 165 U/L (12-78); BLOOD UREA NITROGEN 15 MG/DL (7-18); CALCIUM LEVEL 8.3 MG/DL (8.5-10.1); CARBON DIOXIDE LEVEL 30 MEQ/L (21-32); CHLORIDE LEVEL 105 MEQ/L (98-107); CREATININE FOR GFR 1.17 MG/DL (0.70-1.30); GLOMERULAR FILTRATION RATE > 60.0 (>60); GLUCOSE, FASTING 104 MG/DL (70-100); MAGNESIUM LEVEL 1.8 MG/DL (1.8-2.4); POTASSIUM SERUM 3.5 MEQ/L (3.5-5.1); SODIUM LEVEL 138 MEQ/L (136-145); TOTAL PROTEIN 5.8 GM/DL (6.4-8.2)
[2020-07-07 09:00] VITALS: BP 109/68
[2020-07-07] MEDS: METOPROLOL SUCC (TopROL XL) 100MG *XL* TAB PO SCH (09:00)
[2020-07-07] MEDS: PREGABALIN 100 MG CAP (LYRICA) PO SCH (09:53)
[2020-07-07] MEDS: DULoxetine 30 MG CAP (CYMBALTA) PO SCH (09:53)
[2020-07-07] MEDS: METHYLPHENIDATE 5 MG TAB PO SCH (09:54)
[2020-07-07] MEDS: CALCIUM CARBONATE 500 MG CHEW U/D PO SCH ×2 (09:54→13:17)
[2020-07-07] MEDS: predniSONE 5 MG TAB PO SCH (09:54)
[2020-07-07] MEDS: CALCITRIOL 0.25 MCG CAP (S0169) PO SCH (09:54)
[2020-07-07] MEDS: BACLOFEN 10 MG TAB PO SCH (09:54)
[2020-07-07] MEDS: SERTRALINE HCL 25 MG TABLET PO SCH (09:54)
[2020-07-07] MEDS: predniSONE 1 MG TAB PO SCH (09:54)
[2020-07-07] MEDS: ASPIRIN 81 MG ENTERIC TAB PO SCH (09:54)
[2020-07-07] MEDS: rOPINIRole 1MG TAB PO SCH (09:55)
[2020-07-07] MEDS: POTASSIUM CHLORIDE 10 MEQ SR TABLET PO SCH (09:55)
[2020-07-07] MEDS: ENOXAPARIN 40MG/0.4ML SYRINGE (J1650 PER 10MG) SC SCH (09:56)
--- NOTE | 2020-07-07 10:20 | DS.PDOC ---
Discharge Summary General Date of Admission Jul 05, 2020 at 21:23 Date of Discharge 07/07/2020 Discharge Summary PROCEDURES PERFORMED DURING STAY: [None]. ADMITTING DIAGNOSES / DISCHARGE DIAGNOSES: s/p Intractable N/V/D - possibly due to viral illness s/p VELIA - likely 2/2 pre-renal etiology Acute Transaminitis / NAFLD Prolong QTC Chronic hypoxic respiratory failure Chronic steroid Dependence Chronic Hypertension / HFpEF Depression/Anxiety RLS Weakness of bilateral upper / lower extremities Obesity GERD DVT prophylaxis COMPLICATIONS/CHIEF COMPLAINT: Persistent Vomiting HISTORY OF PRESENT ILLNESS: Patient is a 44-year-old male who presented to the ER with nausea / vomiting / abdominal pain / diarrhea and had been on 07/03/20. Patient was admitted to hospital service for intractable nausea and vomiting was also found to have elevated LFTs. HOSPITAL COURSE: s/p Intractable N/V/D - possibly due to viral illness - Patient has not experience any vomiting episodes while inpatient - No abdominal tenderness noted on exam - Amylase / Lipase normal - Liver US 07/06: Fatty liver. - c/w supportive care s/p VELIA - likely 2/2 pre-renal etiology - Cr has trended up - Urine electrolytes pending - Renal US 07/06: 1. Normal renal ultrasound. - Will avoid nephrotoxic medications - s/p IV fluid hydration Acute Transaminitis / NAFLD - History of fatty liver - LFTs continue to improve - Hepatitis profile negative - Liver US negative Long QTC - Will follow up serial EKG Chronic hypoxic respiratory failure - c/w Supplemental oxygen Chronic steroid Dependence - c/w PPI for GI px - Will resume Bactrim for PJP prophylaxis - c/w Prednisone Chronic Hypertension / HFpEF - Will c/w Metoprolol - Held HCTZ and Torsemide (re: VELIA) while inpatient - Will resume Torsemide on discharge Depression/Anxiety - c/w Amitriptyline, Duloxetine, Sertraline, Valsartan RLS - c/w Ropinirole Weakness of bilateral upper / lower extremities - per Neurologist this is NOT Chronic inflammatory demyelinating polyneuropathy) - c/w fall precautions Obesity - BMI 36.5 - Complicates care GERD - c/w Protonix DVT prophylaxis - c/w Lovenox DISCHARGE MEDICATIONS: Please see below. ALLERGIES: Please see below. PHYSICAL EXAMINATION ON DISCHARGE: Vitals (See below) General: Sitting up in bed, appears to be comfortable, is awake, alert and oriented 3 HEENT: NC, AT CVS: +S1S2 Lungs: Air entry is fair bilaterally without any auscultated rhonchi, crackles or wheezing Abdomen: Again, his abdomen is soft without any appreciated tenderness or distention Extremities: Lower extremities are free of any pitting edema, - Calf tenderness LABORATORY DATA: Please see below. ACTIVITY: [As tolerated]. DISCHARGE PLAN: Follow-up with primary care provider within the next 7 days Remain compliant with treatment plan and medications Return to the ER if you experience any problems DISPOSITION: Home DISCHARGE CONDITION: [Stable]. TIME SPENT ON DISCHARGE: 35 minutes. Vital Signs/I&Os Vital Signs Date Time Temp Pulse Resp B/P (MAP) Pulse Ox O2 Delivery O2 Flow Rate FiO2 07/07/20 09:00 90 109/68 07/07/20 06:00 98.0 18 94 Nasal Cannula 5.0 I&O- Last 24 Hours up to 6 AM 07/07/20 06:00 Intake Total 4025 ml Output Total 850 ml Balance 3175 ml Laboratory Data Labs 24H Laboratory Tests 2 07/06/20 11:59: Lab Scanned Report Miscellaneous Lab 07/06/20 14:48: Urine Color MAXIMINO, Urine Appearance CLOUDYH, Urine pH 5.0, Urine Specific [place] 1.019, Urine Protein 1+H, Urine Glucose (UA) NEGATIVE, Urine Ketones T RACEH, Urine Blood NEGATIVE, Urine Nitrite NEGATIVE, Urine Bilirubin NEGATIVE, Urine Urobilinogen 2.0H, Urine Leukocyte Esterase NEGATIVE, Urine WBC (Auto) 3, Urine RBC (Auto) 0, Urine Hyaline Casts (Auto) 14, Urine Bacteria (Auto) NEGATIVE, Urine Squamous Epithelial Cells 1, Urine Mucus (Auto) SMALL, Urine Sperm (Auto) , Urine Random Creatinine 378.0, Urine Random Sodium 67 07/06/20 17:58: Anion Gap 9, Glomerular Filtration Rate 47.4L, Calcium Level 8.9, Magnesium Level 2.1 07/07/20 06:31: Anion Gap 3L, Glomerular Filtration Rate > 60.0, Calcium Level 8.3L, Magnesium Level 1.8, Immature Granulocyte % (Auto) 1.9, Neutrophils (%) (Auto) 46.7, Lymphocytes (%) (Auto) 39.8, Monocytes (%) (Auto) 9.9H, Eosinophils (%) (Auto) 1.4, Basophils (%) (Auto) 0.3, Neutrophils # (Auto) 2.7, Lymphocytes # (Auto) 2.3, Monocytes # (Auto) 0.6, Eosinophils # (Auto) 0.1, Basophils # (Auto) 0.0, Nucleated Red Blood Cells % (auto) 0.0, Total Bilirubin 1.0, Aspartate Amino Transf (AST/SGOT) 58H, Alanine Aminotransferase (ALT/SGPT) 165H, Alkaline Phosphatase 90, Total Protein 5.8L, Albumin 2.8L, Albumin/Globulin Ratio 0.9 CBC/BMP Laboratory Tests 07/06/20 17:58 07/07/20 06:31 Discharge Medications Scheduled Amitriptyline HCl (Amitriptyline HCl) 25 Mg Tablet, 50 MG PO QHS, (Reported) Aspirin (Aspirin EC) 81 Mg Tablet.dr, 81 MG PO DAILY, (Reported) Baclofen (Baclofen) 10 Mg Tablet, 10 MG PO TID, (Reported) Calcitriol (Calcitriol) 0.25 Mcg Capsule, 0.25 MCG PO DAILY, (Reported) Calcium Carbonate (Tums) 200 Mg Tab.chew, 1,000 MG PO WM, (Reported) Cyclobenzaprine HCl (Cyclobenzaprine HCl) 5 Mg Tablet, 5 MG PO QHS, (Reported) Duloxetine HCl (Duloxetine HCl) 60 Mg Capsule.dr, 60 MG PO DAILY, (Reported) Ergocalciferol (Vitamin D2) (Vitamin D2) 50,000 Units Cap, 50,000 UNITS PO QWE EK, (Reported) MONDAYS Ketoconazole (Ketoconazole) 120 Ml Shampoo, 1 DOSE TOP Q2D, (Reported) Melatonin (Melatonin) 10 Mg Capsule, 10 MG PO QHS, (Reported) Methazolamide (Methazolamide) 25 Mg Tablet, 25 MG PO BID, (Reported) Methylphenidate HCl (Methylphenidate HCl) 5 Mg Tablet, 10 MG PO DAILY, (Reported) Metoprolol Succinate (Metoprolol Succinate) 100 Mg Tab.er.24h, 100 MG PO DAILY, (Reported) Pantoprazole Sodium (Pantoprazole Sodium) 40 Mg Tablet.dr, 40 MG PO QHS, (Reported) Potassium Chloride (Potassium Chloride) 10 Meq Tab.er.prt, 20 MEQ PO DAILY, (Re ported) Prednisone (Prednisone) 1 Mg Tablet, 3 MG PO DAILY, (Reported) 18MG TOTAL Prednisone (Prednisone) 5 Mg Tablet, 15 MG PO DAILY, (Reported) 18MG TOTAL Pregabalin (Pregabalin) 300 Mg Capsule, 300 MG PO BID, (Reported) Quetiapine Fumarate (Quetiapine Fumarate) 50 Mg Tablet, 50 MG PO QHS, (Reported) Ropinirole HCl (Ropinirole HCl) 1 Mg Tablet, 1 MG PO TID, (Reported) Sertraline HCl (Sertraline HCl) 25 Mg Tablet, 75 MG PO DAILY, (Reported) Sulfamethoxazole/Trimethoprim (Bactrim Ds Tablet) 1 Each Tablet, 1 TAB PO 3XW, (Reported) MONDAY, MONDAY AND MONDAY Torsemide (Torsemide) 20 Mg Tablet, 20 MG PO DAILY, (Reported) Allergies Coded Allergies: TAPE (Verified Allergy, Intermediate, HIVES, 04/03/19) PLASTIC TAPE, PAPER TAPE [place] silver (Verified Allergy, Intermediate, HIVES, 04/03/19) topiramate (Verified Allergy, Unknown, HIVES,CONFUSION, 06/26/20) acetazolamide (Verified Adverse Reaction, Unknown, " out of it", 06/26/20) UMAIR HARRISON MD Jul 07, 2020 10:20
[2020-07-07] MEDS: NS 1,000 ML IV SCH (13:15)
== END 2020-07-07 13:39 | disposition home health service (06) | DRG 249 ==
LOC: M ED 18:16 → M ED INP 21:23 → M MSPAV 22:55
PROVIDERS: ADMIT Internal Medicine; ATTEND Internal Medicine
DX: A08.4 Viral intestinal infection, unspecified (principal); J96.11 Chronic respiratory failure with hypoxia; I11.0 Hypertensive heart disease with heart failure; Z99.81 Dependence on supplemental oxygen; I50.32 Chronic diastolic (congestive) heart failure; K76.0 Fatty (change of) liver, not elsewhere classified; R19.7 Diarrhea, unspecified; F32.9 Major depressive disorder, single episode, unspecified; F41.9 Anxiety disorder, unspecified; G25.81 Restless legs syndrome; G47.33 Obstructive sleep apnea (adult) (pediatric); E66.9 Obesity, unspecified; R74.01 Elevation of levels of liver transaminase levels; K21.9 Gastro-esophageal reflux disease without esophagitis; M62.81 Muscle weakness (generalized); Z90.49 Acquired absence of other specified parts of digestive tract; Z79.52 Long term (current) use of systemic steroids; Z91.19 Patient's noncompliance with other medical treatment and regimen; Z79.82 Long term (current) use of aspirin; Z79.899 Other long term (current) drug therapy; Z91.048 Other nonmedicinal substance allergy status; Z88.8 Allergy status to other drugs, medicaments and biological substances; Z20.822 Contact with and (suspected) exposure to COVID-19; Z68.36 Body mass index [BMI] 36.0-36.9, adult

== ENCOUNTER 2020-10-03 13:41 | Observation (INO) | payer OTHER ==
[~2020-10-03] VITALS: Ht 172.7 cm; Wt 111.1 kg
[~2020-10-03 13:41] MED LIST changes: +ASPI-569 PO; -ASPI81TAEC PO
[2020-10-03 14:17] LABS: HEMATOCRIT 45.5 % (42.0-52.0); HEMOGLOBIN 14.9 g/dl (13.5-17.5); MEAN CORPUSCULAR HGB CONC 32.7 g/dl (32.0-36.5); MEAN CORPUSCULAR VOLUME 85.4 fl (80.0-96.0); PLATELET COUNT, AUTOMATED 316 10^3/uL (150-450); RED BLOOD COUNT 5.33 10^6/uL (4.30-6.10); WHITE BLOOD COUNT 9.5 10^3/uL (4.0-10.0)
[2020-10-03 14:32] LABS: ATYPICAL LYMPH 10 % (0-5); BASOPHILS 1 % (0-1); EOSINOPHILS 7 % (0-3); LYMPHOCYTES 35 % (16-44); MONOCYTES 6 % (0-5); NEUTROPHILS 37 % (28-66); NUCLEATED RED BLOOD CELL 1 % (0-0)
[2020-10-03 14:33] LABS: ANISOCYTOSIS 1+; PLATELET ESTIMATE NORMAL (NORMAL)
--- NOTE | 2020-10-03 14:41 | REP ---
INDICATION: CHEST PAIN COMPARISON: 07/05/2020 TECHNIQUE: Portable AP view of the chest FINDINGS: The mediastinum and cardiac silhouette are stable and within normal limits for portable technique. Left lower lobe airspace disease suggested and should be correlated with auscultation and physical examination. IMPRESSION: Suspected left lower lobe infiltrate. <Electronically signed by Alex Garsia > 10/03/20 [id number]
[2020-10-03 14:44] LABS: BLOOD UREA NITROGEN 17 MG/DL (7-18); CALCIUM LEVEL 10.4 MG/DL (8.5-10.1); CARBON DIOXIDE LEVEL 30 MEQ/L (21-32); CHLORIDE LEVEL 105 MEQ/L (98-107); CK-MB VALUE MASS < 1.0 NG/ML (<3.6); CPK CREATINE PHOSPHOKINASE 93 U/L (39-308); CREATININE FOR GFR 1.18 MG/DL (0.70-1.30); GLOMERULAR FILTRATION RATE > 60.0 (>60); GLUCOSE, FASTING 108 MG/DL (70-100); MB/CK RELATIVE INDEX 1.08 (< OR =4); NT-PRO BNP 7 PG/ML (<125); SODIUM LEVEL 141 MEQ/L (136-145); TROPONIN I < 0.02 NG/ML (< 0.10)
[2020-10-03] MEDS ORDERED: ISOVUE-370 76% 100ML VIAL As Ordered ONE (15:37)
--- NOTE | 2020-10-03 16:14 | REP ---
INDICATION: tachypnea, tachycardia ro PE COMPARISON: 06/30/2020 TECHNIQUE: Axial contrast enhanced images from the thoracic inlet to the upper abdomen using pulmonary embolus technique with multiplanar re-formations. 75 ml Isovue 370 intravenous contrast material administered without complication. This CT examination was performed using the following dose reduction techniques: Automated exposure control, adjustment of mA and/or kv according to the patient's size, and use of iterative reconstruction technique. FINDINGS: Satisfactory enhancement of the pulmonary vasculature is achieved but evaluation is limited by motion artifact. No filling defects are identified to suggest pulmonary embolus. Further evaluation of the mediastinum demonstrates normal thoracic aorta, heart and pericardium. The bilateral lung solis demonstrate improved aeration as compared to prior examination but continued diffuse bilateral ground-glass opacities and lower lobe atelectasis/ill-defined consolidations. No pleural effusion. No pneumothorax. Tracheobronchial tree is patent. IMPRESSION: 1. No evidence for pulmonary embolus. 2. Diffuse bilateral ground-glass opacities along with moderate bibasilar atelectasis and small ill-defined consolidations suggesting multifocal pneumonia. Findings appear improved when compared with 06/30/2020. <Electronically signed by Alex Garsia > 10/03/20 [id number]
[2020-10-03] MEDS ORDERED: IPRATROPIUM 0.02% SOLN 0.5MG 2.5ML NEB INH PRN (17:10)
[2020-10-03] MEDS ORDERED: ACETAMINOPHEN TAB 650MG DOSE (2X325MG) PO PRN (17:10)
[2020-10-03] MEDS ORDERED: VALS1TAB67 PO (17:13)
[2020-10-03] MEDS ORDERED: HYDR-3363 PO (17:13)
[2020-10-03] MEDS ORDERED: SERT50TA29 PO (17:13)
[2020-10-03] MEDS ORDERED: METH1CHW2 PO (17:13)
[2020-10-03] MEDS ORDERED: QUET25TA3 PO (17:13)
--- NOTE | 2020-10-03 17:16 | HPEPDOC ---
[facility] Medical History & Physical Date of Admission Oct 03, 2020 Date of Service: Oct 03, 2020 History and Physical Chief complaint: Who presented to emergency room with complaint of shortness of breath History of present illness: Patient is a 45-year-old male who presented to [facility] with complaints of shortness of breath and tightness with breathing better started on Monday. Patient reports that he has an associated dry cough without any expectoration of sputum. Denies any chest pain. Does report some palpitations. Reports that over the last few days the frequency of his nebulization use has increased from twice a week to 3 times a day. Patient reports some nausea. Denies any vomiting, abdominal pain. Reports diarrhea which is a chronic issue for him. His last bowel movement was this morning reported as loose. He denies any urinary discomfort or fevers or chills. Patient follows with pulmonology locally and reports that he takes prednisone 18 mg daily and has recently seen pulmonology in [place] for an additional set of eyes. He reports that he wanted to go to [facility], however, his insurance did not approve. Past Medical History: Chronic hypoxic respiratory failure - 4L Nasal cannula oxygen Chronic steroid Dependence / PCP prophylaxis - Currently on Prednisone 18mg Weakness of bilateral upper / lower extremities - Not Chronic inflammatory demyelinating polyneuropathy - Negative muscle biopsy and nerve conduction studies - Currently in the process of being worked up in [place] on CPAP (15) HTN Depression Nephrolithiasis Fatty Liver Disease RLS Migraine headache / Idiopathic Intracranial HTN GERD Past Surgical History: Appendectomy Cholecystectomy Umbilical hernia repair Left ankle surgery Left knee surgery Left ulnar nerve release Bone marrow biopsy Muscle biopsy Allergies: See below Medications: See below Family History: - No history of malignancies Social History: - Denies the use of alcohol or illicit drugs; reports the social use of alcohol - Denies recent travel or sick contacts - Lives with son and friend - Occupation; on disability Review of Systems: 10 point review of systems complete, all negative otherwise stated in HPI Physical exam: - Vitals: BP [139/90], HR [134], RR [22], Sat [91%RA], Temp [96.2F] - General: Lying in bed, No acute distress, Speaking in full sentences, AAOx3 - HEENT: NC, AT, PERRLA - CVS: Tachycardic, +S1S2 - Lungs: Fair air entry bilaterally, auscultation reveals faint crackles at bases. No audible wheezing or rhonchi - Abdomen: Soft, Non-distended, Non-tender - Extremities: No lower extremity edema, No calf tenderness - Neuro: No focal motor or sensory deficit - Skin: No visible rashes Labs: See below Imaging: CXR 10/03: Suspected left lower lobe infiltrate. CTA 10/03: 1. No evidence for pulmonary embolus. 2. Diffuse bilateral ground-glass opacities along with moderate bibasilar atelectasis and small ill-defined consolidations suggesting multifocal pneumonia. Findings appear improved when compared with 06/30/2020. EKG: See below Assessment and Plan: Shortness of breath on chronic hypoxic respiratory failure - Presented to the emergency room with complaints of shortness of breath and chest tightness - Requires 4L nasal cannula oxygen at baseline - Physical reveals faint crackles at bases - Troponins negative; will trend - EKG reviewed and does reveal sinus tachycardia without any ischemic changes - CT angiogram was reviewed did not reveal any pulmonary embolisms, however, had shown an improvement compared to prior - Will increase dose of Prednisone - c/w Inhaled therapy as ordered - Will continue with PCU telemetry monitoring / Troponin trend Tachycardia - Possibly 2/2 medications (currently on Ritalin and increased frequency of nebulizers) - EKG reviewed and is sinus rhythm; troponin first set is negative - Will hold Ritalin - Will use Xopinex for inhaled therapy - Will continue telemetry monitoring - Troponin trend Chronic steroid Dependence / PCP prophylaxis - Chronically on Prednisone 18mg; will increase (See above) - c/w Bactrim Weakness of bilateral upper / lower extremities - Not Chronic inflammatory demyelinating polyneuropathy - Negative muscle biopsy and nerve conduction studies - Currently in the process of being worked up in [place] on CPAP (15) - May use home CPAP while inpatient HTN - BP well controlled - c/w Metoprolol / Torsemide Depression - c/w Amitriptyline, Quetiapine, Sertraline, Duloxetine Nephrolithiasis Fatty Liver Disease RLS / Neuropathy - c/w Ropinirole, Pregabalin, Baclofen, Cyclobenzaprine Migraine headache / Idiopathic Intracranial HTN - c/w Tylenol PRN GERD - c/w Protonix DVT prophylaxis - Will start Heparin Vital Signs Vital Signs Date Time Temp Pulse Resp B/P (MAP) Pulse Ox O2 Delivery O2 Flow Rate FiO2 10/03/20 14:20 10/03/20 14:20 Nasal Cannula 4.0 10/03/20 13:42 96.2 134 22 91 Laboratory Data Labs 24H Laboratory Tests 2 10/03/20 14:02: Neutrophils (%) (Auto) , Nucleated Red Blood Cells % (auto) 0.0, Neutrophils 37, Band Neutrophils 4, Lymphocytes (Manual) 35, Monocytes (Manual) 6H, Eosinophils (Manual) 7H, Basophils (Manual) 1, Atypical Lymphocytes 10H, Nucleated Red Blood Cells 1H, Anisocytosis 1+, Platelet Estimate NORMAL, Anion Gap 6L, Glomerular Filtration Rate > 60.0, Lactic Acid Level 1.6, Calcium Level 10.4H, Total Creatine Kinase 93, Creatine Kinase MB < 1.0, Creatine Kinase MB Relative Index 1.08, Troponin I < 0.02, [id number] Natriuretic Peptide 7 10/03/20 14:16: POC pH (Misc Panel) 7.422, POC Base Excess (Misc Panel) 3.0, POC Saturated Percent O2 (Misc) 95, POC pO2 (Misc Panel) 76.0L, POC pCO2 (Misc Panel) 42.6, POC HCO3 (Misc Panel) 27.8H, POC Total CO2 (Misc Panel) 29.0H 10/03/20 17:03: CBC/BMP Laboratory Tests 10/03/20 14:02 Microbiology Microbiology 10/03/20 Blood Culture, Received Pending 10/03/20 Respiratory Virus Panel (PCR) (PHYLLIS) - Final, Complete 10/03/20 Blood Culture, Received Pending Home Medications Scheduled Amitriptyline HCl (Amitriptyline HCl) 25 Mg Tablet, 50 MG PO QHS Aspirin (Aspirin EC) 81 Mg Tablet.dr, 81 MG PO DAILY Baclofen (Baclofen) 10 Mg Tablet, 10 MG PO TID Calcitriol (Calcitriol) 0.25 Mcg Capsule, 0.25 MCG PO DAILY Cyclobenzaprine HCl (Cyclobenzaprine HCl) 5 Mg Tablet, 5 MG PO QHS Duloxetine HCl (Duloxetine HCl) 60 Mg Capsule.dr, 60 MG PO DAILY Ketoconazole (Ketoconazole) 120 Ml Shampoo, 1 DOSE TOP Q2D Melatonin (Melatonin) 10 Mg Capsule, 10 MG PO QHS Methylphenidate HCl (Methylphenidate HCl) 5 Mg Tablet, 10 MG PO QAM Methylphenidate HCl (Methylphenidate HCl) 5 Mg Tab.chew, 5 MG PO DAILY TAKES AT NOON Metoprolol Succinate (Metoprolol Succinate) 100 Mg Tab.er.24h, 100 MG PO DAILY Pantoprazole Sodium (Pantoprazole Sodium) 40 Mg Tablet.dr, 40 MG PO QHS Potassium Chloride (Potassium Chloride) 10 Meq Tab.er.prt, 20 MEQ PO DAILY Prednisone (Prednisone) 1 Mg Tablet, 3 MG PO DAILY 18MG TOTAL Prednisone (Prednisone) 5 Mg Tablet, 15 MG PO DAILY 18MG TOTAL Pregabalin (Pregabalin) 300 Mg Capsule, 300 MG PO BID Quetiapine Fumarate (Quetiapine Fumarate) 25 Mg Tablet, 25 MG PO QHS Ropinirole HCl (Ropinirole HCl) 1 Mg Tablet, 1 MG PO TID Sertraline HCl (Sertraline HCl) 50 Mg Tablet, 75 MG PO DAILY Sulfamethoxazole/Trimethoprim (Bactrim Ds Tablet) 1 Each Tablet, 1 TAB PO 3XW MONDAY, MONDAY AND MONDAY Torsemide (Torsemide) 20 Mg Tablet, 20 MG PO DAILY Valsartan (Valsartan) 160 Mg Tablet, 160 MG PO DAILY Scheduled PRN Calcium Carbonate (Tums) 200 Mg Tab.chew, 1,000 MG PO WM PRN for HEARTBURN Hydroxyzine HCl (Hydroxyzine HCl) 25 Mg Tablet, 25 MG PO Q6H PRN for ITCHING/ANXIETY Allergies Coded Allergies: TAPE (Verified Allergy, Intermediate, HIVES, 04/03/19) PLASTIC TAPE, PAPER TAPE [place] silver (Verified Allergy, Intermediate, HIVES, 04/03/19) topiramate (Verified Allergy, Unknown, HIVES,CONFUSION, 06/26/20) acetazolamide (Verified Adverse Reaction, Unknown, " out of it", 06/26/20) UMAIR HARRISON MD Oct 03, 2020 17:16
[2020-10-03] MEDS ORDERED: hydrOXYzine 25 MG TAB PO PRN (17:55)
[2020-10-03] MEDS ORDERED: CALCIUM CARBONATE 500 MG CHEW U/D PO PRN (17:55)
[2020-10-03] MEDS: IPRATROPIUM 0.02% SOLN 0.5MG 2.5ML NEB INH SCH ×2 (19:30→23:56)
[2020-10-03 19:50] VITALS: BP 139/77
[2020-10-03] MEDS: rOPINIRole 1MG TAB PO SCH (20:11)
[2020-10-03] MEDS: BACLOFEN 10 MG TAB PO SCH (20:12)
[2020-10-03] MEDS: PREGABALIN 100 MG CAP (LYRICA) PO SCH (20:12)
[2020-10-03 20:40] LABS: CK-MB VALUE MASS < 1.0 NG/ML (<3.6); CPK CREATINE PHOSPHOKINASE 78 U/L (39-308); MB/CK RELATIVE INDEX 1.28 (< OR =4); TROPONIN I < 0.02 NG/ML (< 0.10)
[2020-10-03] MEDS ORDERED: CYCLOBENZAPRINE 5MG TABLET PO SCH (21:00)
[2020-10-03] MEDS ORDERED: AMITRIPTYLINE 25MG TABLET PO SCH (21:00)
[2020-10-03] MEDS ORDERED: QUEtiapine FUMARATE 25 MG TAB PO SCH (21:00)
[2020-10-03] MEDS ORDERED: PANTOPRAZOLE 40MG TAB (PROTONIX) PO SCH (21:00)
[2020-10-03] MEDS: HEPARIN SOD (PORCINE) 5000UNITS/ML 1ML VIAL/SYRINGE SC SCH (21:48)
[2020-10-04] VITALS: BP 139/82
[2020-10-04] MEDS: HEPARIN SOD (PORCINE) 5000UNITS/ML 1ML VIAL/SYRINGE SC SCH ×2 (01:16→08:15)
[2020-10-04 02:28] LABS: CK-MB VALUE MASS < 1.0 NG/ML (<3.6); CPK CREATINE PHOSPHOKINASE 67 U/L (39-308); MB/CK RELATIVE INDEX 1.49 (< OR =4); TROPONIN I < 0.02 NG/ML (< 0.10)
[2020-10-04 04:00] VITALS: BP 128/80
[2020-10-04] MEDS: IPRATROPIUM 0.02% SOLN 0.5MG 2.5ML NEB INH SCH ×2 (04:06→07:44)
[2020-10-04 06:11] LABS: BASO % 0.6 % (0.0-1.0); EOS # 0.3 10^3/uL (0.0-0.5); EOS % 4.1 % (0.0-3.0); HEMATOCRIT 42.9 % (42.0-52.0); HEMOGLOBIN 13.7 g/dl (13.5-17.5); LYMPH % 42.4 % (24.0-44.0); MEAN CORPUSCULAR HEMOGLOBIN 27.6 pg (27.0-33.0); MEAN CORPUSCULAR HGB CONC 31.9 g/dl (32.0-36.5); MEAN CORPUSCULAR VOLUME 86.3 fl (80.0-96.0); MONO # 0.6 10^3/uL (0.0-0.8); MONO % 8.1 % (2.0-8.0); NEUTROPHILS # 3.2 10^3/uL (1.5-8.5); NEUTROPHILS % 44.5 % (36.0-66.0); PLATELET COUNT, AUTOMATED 278 10^3/uL (150-450); RED BLOOD COUNT 4.97 10^6/uL (4.30-6.10); WHITE BLOOD COUNT 7.1 10^3/uL (4.0-10.0)
[2020-10-04 06:33] LABS: BLOOD UREA NITROGEN 18 MG/DL (7-18); CALCIUM LEVEL 9.3 MG/DL (8.5-10.1); CARBON DIOXIDE LEVEL 28 MEQ/L (21-32); CHLORIDE LEVEL 106 MEQ/L (98-107); CREATININE FOR GFR 1.05 MG/DL (0.70-1.30); GLOMERULAR FILTRATION RATE > 60.0 (>60); GLUCOSE, FASTING 111 MG/DL (70-100); MAGNESIUM LEVEL 2.3 MG/DL (1.8-2.4); POTASSIUM SERUM 3.7 MEQ/L (3.5-5.1); SODIUM LEVEL 141 MEQ/L (136-145)
[2020-10-04 08:00] VITALS: BP 137/84
[2020-10-04] MEDS: rOPINIRole 1MG TAB PO SCH (08:14)
[2020-10-04] MEDS: PREGABALIN 100 MG CAP (LYRICA) PO SCH (08:14)
[2020-10-04 08:15] VITALS: BP 137/84
[2020-10-04] MEDS: BACLOFEN 10 MG TAB PO SCH (08:15)
[2020-10-04] MEDS ORDERED: PRED10TA2 PO (08:24)
--- NOTE | 2020-10-04 08:54 | DS.PDOC ---
Discharge Summary General Date of Admission Oct 03, 2020 at 13:42 Date of Discharge 10/04/2020 Discharge Summary PROCEDURES PERFORMED DURING STAY: [None]. ADMITTING DIAGNOSES / DISCHARGE DIAGNOSES: Shortness of breath on chronic hypoxic respiratory failure Tachycardia - likely 2/2 medications (currently on Ritalin and increased frequency of nebulizers) Chronic steroid Dependence / PCP prophylaxis Weakness of bilateral upper / lower extremities PARISH on CPAP (15) HTN Depression Nephrolithiasis Fatty Liver Disease RLS / Neuropathy Migraine headache / Idiopathic Intracranial HTN GERD DVT prophylaxis COMPLICATIONS/CHIEF COMPLAINT: Dyspnea. HISTORY OF PRESENT ILLNESS: Patient is a 45-year-old male who presented to [facility] with complaints of shortness of breath and tightness with breathing better started on Monday. Patient reports that he has an associated dry cough without any expectoration of sputum. Denies any chest pain. Does report some palpitations. Reports that over the last few days the frequency of his nebulization use has increased from twice a week to 3 times a day. Patient was admitted to the hospitalist service for further evaluation and treatment HOSPITAL COURSE: Shortness of breath on chronic hypoxic respiratory failure - Presented to the ER with complaints of shortness of breath and chest tightness; patient reports improvement of symptoms - Requires 4L nasal cannula oxygen at baseline - Hemodynamically stable and afebrile - Physical again reveals faint crackles; likely from chronic atelectasis - Troponins trend negative - Procalcitonin negative / Lactic acid negative / No leukocytosis - EKG reviewed and does reveal sinus tachycardia without any ischemic changes - CT angiogram was reviewed did not reveal any pulmonary embolisms, however, had shown an improvement compared to prior 06/2020 - c/w Adjust dose of prednisone; will provide taper on discharge - c/w Inhaled therapy as ordered - Patient has been advised to follow-up with his hospice physician and primary care provider within the next 7 days Tachycardia - likely 2/2 medications (currently on Ritalin and increased frequency of nebulizers) - Heart rate has improved while inpatient - EKG reviewed and is sinus rhythm; troponin trend negative - CTA without any evidence of pulmonary embolism - Patient was advised that Ritalin and nebulization therapy can increase heart rate - Will have outpatient follow-up with primary care provider Chronic steroid Dependence / PCP prophylaxis - Chronically on Prednisone 18mg; will increase (See above) - c/w Bactrim Weakness of bilateral upper / lower extremities - Not Chronic inflammatory demyelinating polyneuropathy - Negative muscle biopsy and nerve conduction studies - Currently in the process of being worked up in [place] PARISH on CPAP (15) - May use home CPAP while inpatient HTN - BP well controlled - c/w Metoprolol / Torsemide Depression - c/w Amitriptyline, Quetiapine, Sertraline, Duloxetine Nephrolithiasis Fatty Liver Disease RLS / Neuropathy - c/w Ropinirole, Pregabalin, Baclofen, Cyclobenzaprine Migraine headache / Idiopathic Intracranial HTN - c/w Tylenol PRN GERD - c/w Protonix DVT prophylaxis - Will c/w Heparin DISCHARGE MEDICATIONS: Please see below. ALLERGIES: Please see below. PHYSICAL EXAMINATION ON DISCHARGE: Vitals (See below) General: Lying in bed, no acute distress, comfortable, AAOx3 HEENT: NC, AT CVS: +S1S2 Lungs: Fair air entry b/l, no evidence of wheezing or rhonchi. Faint crackles at bases Abdomen: Soft, ND, NT Extremities: No evidence of edema, - Calf tenderness LABORATORY DATA: Please see below. IMAGING: CXR 10/03: Suspected left lower lobe infiltrate. CTA 10/03: 1. No evidence for pulmonary embolus. 2. Diffuse bilateral ground-glass opacities along with moderate bibasilar atelectasis and small ill-defined consolidations suggesting multifocal pneumonia. Findings appear improved when compared with 06/30/2020. ACTIVITY: [As tolerated]. DISCHARGE PLAN: Follow-up with primary care provider, pulmonology and neurology within the next 7 days Remain compliant with treatment plan and medications Return to the ER if you experience any problems DISPOSITION: Home DISCHARGE CONDITION: [Stable]. TIME SPENT ON DISCHARGE: 35 minutes. Vital Signs/I&Os Vital Signs Date Time Temp Pulse Resp B/P (MAP) Pulse Ox O2 Delivery O2 Flow Rate FiO2 10/04/20 08:15 103 137/84 10/04/20 08:00 97.8 18 94 Nasal Cannula 4.0 I&O- Last 24 Hours up to 6 AM 10/04/20 06:00 Intake Total 955 ml Output Total 400 ml Balance 555 ml Laboratory Data Labs 24H Laboratory Tests 2 10/03/20 14:02: Neutrophils (%) (Auto) , Nucleated Red Blood Cells % (auto) 0.0, Neutrophils 37, Band Neutrophils 4, Lymphocytes (Manual) 35, Monocytes (Manual) 6H, Eosinophils (Manual) 7H, Basophils (Manual) 1, Atypical Lymphocytes 10H, Nucleated Red Blood Cells 1H, Anisocytosis 1+, Platelet Estimate NORMAL, Anion Gap 6L, Glomerular Filtration Rate > 60.0, Lactic Acid Level 1.6, Calcium Level 10.4H, Total Creatine Kinase 93, Creatine Kinase MB < 1.0, Creatine Kinase MB Relative Index 1.08, Troponin I < 0.02, OO-Fmt-J-Type Natriuretic Peptide 7 10/03/20 14:16: POC pH (Misc Panel) 7.422, POC Base Excess (Misc Panel) 3.0, POC Saturated Percent O2 (Misc) 95, POC pO2 (Misc Panel) 76.0L, POC pCO2 (Misc Panel) 42.6, POC HCO3 (Misc Panel) 27.8H, POC Total CO2 (Misc Panel) 29.0H 10/03/20 17:03: Procalcitonin 0.06 10/03/20 20:01: Total Creatine Kinase 78, Creatine Kinase MB < 1.0, Creatine Kinase MB Relative Index 1.28, Troponin I < 0.02 10/04/20 01:53: Total Creatine Kinase 67, Creatine Kinase MB < 1.0, Creatine Kinase MB Relative Index 1.49, Troponin I < 0.02 10/04/20 05:58: Immature Granulocyte % (Auto) 0.3, Neutrophils (%) (Auto) 44.5, Lymphocytes (%) (Auto) 42.4, Monocytes (%) (Auto) 8.1H, Eosinophils (%) (Auto) 4.1H, Basophils (%) (Auto) 0.6, Neutrophils # (Auto) 3.2, Lymphocytes # (Auto) 3.0, Monocytes # (Auto) 0.6, Eosinophils # (Auto) 0.3, Basophils # (Auto) 0.0, Nucleated Red Blood Cells % (auto) 0.0, Anion Gap 7L, Glomerular Filtration Rate > 60.0, Calcium Level 9.3, Magnesium Level 2.3 CBC/BMP Laboratory Tests 10/03/20 14:02 10/04/20 05:58 Microbiology Microbiology 10/03/20 Blood Culture, Received Pending 10/03/20 Respiratory Virus Panel (PCR) (PHYLLIS) - Final, Complete 10/03/20 Blood Culture, Received Pending Discharge Medications Scheduled Amitriptyline HCl (Amitriptyline HCl) 25 Mg Tablet, 50 MG PO QHS, (Reported) Aspirin (Aspirin EC) 81 Mg Tablet.dr, 81 MG PO DAILY, (Reported) Baclofen (Baclofen) 10 Mg Tablet, 10 MG PO TID, (Reported) Calcitriol (Calcitriol) 0.25 Mcg Capsule, 0.25 MCG PO DAILY, (Reported) Cyclobenzaprine HCl (Cyclobenzaprine HCl) 5 Mg Tablet, 5 MG PO QHS, (Reported) Duloxetine HCl (Duloxetine HCl) 60 Mg Capsule.dr, 60 MG PO DAILY, (Reported) Ketoconazole (Ketoconazole) 120 Ml Shampoo, 1 DOSE TOP Q2D, (Reported) Melatonin (Melatonin) 10 Mg Capsule, 10 MG PO QHS, (Reported) Methylphenidate HCl (Methylphenidate HCl) 5 Mg Tablet, 10 MG PO QAM, (Reported) Methylphenidate HCl (Methylphenidate HCl) 5 Mg Tab.chew, 5 MG PO DAILY, (Reported) TAKES AT NOON Metoprolol Succinate (Metoprolol Succinate) 100 Mg Tab.er.24h, 100 MG PO DAILY, (Reported) Pantoprazole Sodium (Pantoprazole Sodium) 40 Mg Tablet.dr, 40 MG PO QHS, (Reported) Potassium Chloride (Potassium Chloride) 10 Meq Tab.er.prt, 20 MEQ PO DAILY, (Reported) Prednisone (Prednisone) 10 Mg Tablet, 10 MG PO TAPER Take 4 tabs daily x 3 days, then 3 tabs daily x 3 days, then 2 tabs daily x 3 days, then resume prior dose Pregabalin (Pregabalin) 300 Mg Capsule, 300 MG PO BID, (Reported) Quetiapine Fumarate (Quetiapine Fumarate) 25 Mg Tablet, 25 MG PO QHS, (Reported) Ropinirole HCl (Ropinirole HCl) 1 Mg Tablet, 1 MG PO TID, (Reported) Sertraline HCl (Sertraline HCl) 50 Mg Tablet, 75 MG PO DAILY, (Reported) Sulfamethoxazole/Trimethoprim (Bactrim Ds Tablet) 1 Each Tablet, 1 TAB PO 3XW, (Reported) MONDAY, MONDAY AND MONDAY Torsemide (Torsemide) 20 Mg Tablet, 20 MG PO DAILY, (Reported) Valsartan (Valsartan) 160 Mg Tablet, 160 MG PO DAILY, (Reported) Scheduled PRN Calcium Carbonate (Tums) 200 Mg Tab.chew, 1,000 MG PO WM PRN for HEARTBURN, (Reported) Hydroxyzine HCl (Hydroxyzine HCl) 25 Mg Tablet, 25 MG PO Q6H PRN for ITCHING/ANXIETY, (Reported) Allergies Coded Allergies: TAPE (Verified Allergy, Intermediate, HIVES, 04/03/19) PLASTIC TAPE, PAPER TAPE [place] silver (Verified Allergy, Intermediate, HIVES, 04/03/19) topiramate (Verified Allergy, Unknown, HIVES,CONFUSION, 06/26/20) acetazolamide (Verified Adverse Reaction, Unknown, " out of it", 06/26/20) UMAIR HARRISON MD Oct 04, 2020 08:54
[2020-10-04] MEDS ORDERED: predniSONE 5 MG TAB PO SCH (09:00)
[2020-10-04] MEDS ORDERED: TORSEMIDE 20 MG TAB PO SCH (09:00)
[2020-10-04] MEDS ORDERED: METOPROLOL SUCC (TopROL XL) 100MG *XL* TAB PO SCH (09:00)
[2020-10-04] MEDS ORDERED: VALSARTAN 80 MG TAB (DIOVAN) PO SCH (09:00)
[2020-10-04] MEDS ORDERED: SERTRALINE HCL 25 MG TABLET PO SCH (09:00)
[2020-10-04] MEDS ORDERED: ASPIRIN 81MG ENTERIC TABLET PO SCH (09:00)
[2020-10-04] MEDS ORDERED: DULoxetine 30 MG CAP (CYMBALTA) PO SCH (09:00)
[2020-10-04] MEDS ORDERED: POTASSIUM CHLORIDE 10 MEQ SR TABLET PO SCH (09:00)
[2020-10-04] MEDS ORDERED: CALCITRIOL 0.25 MCG CAP (S0169) PO SCH (09:00)
[2020-10-04] MEDS ORDERED: PREG300C PO (10:42)
[2020-10-04] MEDS ORDERED: HYDR-3363 PO (10:42)
--- NOTE | 2020-10-04 11:45 | ECGEPIP ---
[facility] - ED Test Date: 2020-10-03 Pat Name: ROLLY YANCEY Department: Room: - Gender: Male [employer]: GINA : 1975 Requested By: Gian Stoner Order Number: [id number] Reading MD: Ping Pacheco Measurements Intervals [place] Rate: 139 P: CA: 144 QRS: 45 QRSD: 100 T: 1 QT: 302 QTc: 459 Interpretive Statements Sinus tachycardia inferior infarct, age indeterminate NSTTW abnormalities LVH increased rate 07/06/20 Electronically Signed on 10-04-2020 11:45:38 EDT by Ping Pacheco
[2020-10-05] MEDS ORDERED: BACTRIM 160MG/800MG DS TAB PO SCH (09:00)
== END 2020-10-04 11:06 | disposition home or self-care (01) ==
LOC: M ED 13:41 → M ED INP 13:42 → ENRESERV 18:19 → M PCU 19:50
PROVIDERS: ADMIT Internal Medicine; ATTEND Internal Medicine
DX: J96.11 Chronic respiratory failure with hypoxia (principal); R00.0 Tachycardia, unspecified; Z79.52 Long term (current) use of systemic steroids; R53.1 Weakness; J98.11 Atelectasis; G47.33 Obstructive sleep apnea (adult) (pediatric); I10 Essential (primary) hypertension; F32.9 Major depressive disorder, single episode, unspecified; N20.0 Calculus of kidney; K76.0 Fatty (change of) liver, not elsewhere classified; G25.81 Restless legs syndrome; G62.9 Polyneuropathy, unspecified; G43.909 Migraine, unspecified, not intractable, without status migrainosus; G93.2 Benign intracranial hypertension; K21.9 Gastro-esophageal reflux disease without esophagitis; Z99.81 Dependence on supplemental oxygen; Z79.899 Other long term (current) drug therapy; Z79.82 Long term (current) use of aspirin; Z79.2 Long term (current) use of antibiotics; Z88.8 Allergy status to other drugs, medicaments and biological substances; Z91.048 Other nonmedicinal substance allergy status
CPT/HCPCS: 36415; 36600; 71045; 71275; 80048; 82550; 82553; 82803; 83605; 83735; 83880; 84145; 85025; 87040; 87798; 93005; 93041; 96372; 99285; J1644; Q9967

== ENCOUNTER → 2020-10-13 | Outpatient (REF) | payer OTHER ==
[~2020-10-13] MED LIST changes: +HYDR-3363 PO; +METH1CHW2 PO; +QUET25TA3 PO
[2020-10-13 18:42] LABS: ALBUMIN 4.3 GM/DL (3.2-5.2); BILIRUBIN,DIRECT 0.1 MG/DL (0.0-0.2); BILIRUBIN,TOTAL 0.7 MG/DL (0.2-1.0); TOTAL PROTEIN 7.9 GM/DL (6.4-8.2)
== END ==
LOC: M LAB REF 16:45
PROVIDERS: ATTEND Internal Medicine Pulmonary Disease
DX: R91.8 Other nonspecific abnormal finding of lung field (principal)

== ENCOUNTER 2020-11-08 10:17 | Inpatient (IN) | payer OTHER ==
[~2020-11-08] VITALS: Ht 172.7 cm; Wt 112.3 kg
[2020-11-08] MEDS: METOPROLOL SUCC (TopROL XL) 100MG *XL* TAB PO SCH (09:00)
[~2020-11-08 10:17] MED LIST changes: +BACTDSTA PO; -SULF1TAB93 PO
[2020-11-08] MEDS ORDERED: METH2.5T48 (10:25)
[2020-11-08] MEDS ORDERED: PRED5TA PO (10:25)
[2020-11-08] MEDS ORDERED: methylPREDNISolone 125MG 2ML VIAL IV ONE (10:35)
[2020-11-08] MEDS ORDERED: AZITHROMYCIN INJ 500 MG, VIAL MATE ADAPTER 1 EACH in NS 250 ML IV ONE (10:45)
[2020-11-08] MEDS ORDERED: METOCLOPRAMIDE INJ 10MG/2ML VIAL (J2765 PER 1) IV ONE (10:45)
[2020-11-08] MEDS ORDERED: cefTRIAXone SOD 1 GM in D5W MINI-BAG PLUS 50 ML IV ONE (10:45)
[2020-11-08 10:53] LABS: ABG BASE EXCESS -0.5 (-2.0-2.0); ABG HCO3 24.2 MEQ/L (22.0-26.0); ABG O2 SATURATION 97.6 % (95.0-99.0); ABG PARTIAL PRESSURE CO2 40.1 mmHg (35.0-45.0); ABG PARTIAL PRESSURE O2 101.2 mmHg (75.0-100.0); ABG STANDARD HCO3 24.1 MEQ/L (22.0-26.0); ABG TOTAL CO2 25.5 MEQ/L (22.0-29.0); ABG pH (ARTERIAL) 7.399 UNITS (7.350-7.450)
[2020-11-08 11:05] LABS: BASO # 0.1 10^3/uL (0.0-0.2); BASO % 0.7 % (0.0-1.0); EOS # 0.3 10^3/uL (0.0-0.5); HEMATOCRIT 43.7 % (42.0-52.0); HEMOGLOBIN 14.2 g/dl (13.5-17.5); LYMPH # 3.1 10^3/uL (1.5-5.0); LYMPH % 41.1 % (24.0-44.0); MEAN CORPUSCULAR HEMOGLOBIN 27.6 pg (27.0-33.0); MEAN CORPUSCULAR HGB CONC 32.5 g/dl (32.0-36.5); MEAN CORPUSCULAR VOLUME 84.9 fl (80.0-96.0); MONO # 0.5 10^3/uL (0.0-0.8); MONO % 6.8 % (2.0-8.0); NEUTROPHILS # 3.5 10^3/uL (1.5-8.5); NEUTROPHILS % 47.1 % (36.0-66.0); PLATELET COUNT, AUTOMATED 312 10^3/uL (150-450); RED BLOOD COUNT 5.15 10^6/uL (4.30-6.10); WHITE BLOOD COUNT 7.5 10^3/uL (4.0-10.0)
[2020-11-08] MEDS ORDERED: HYDR-3363 PO (11:16)
[2020-11-08] MEDS ORDERED: METO1TAB33 PO (11:16)
[2020-11-08] MEDS ORDERED: LYRI300C PO (11:16)
--- NOTE | 2020-11-08 11:21 | REP ---
INDICATION: DYSPNEA/COUGH COMPARISON: 10/03/2020 TECHNIQUE: Portable AP view of the chest FINDINGS: Examination is limited by portable technique, underpenetration, and poor inspiratory effort which accentuate the pulmonary vasculature and interstitium. Pulmonary vascular congestion/interstitial edema as well as basilar atelectasis cannot be excluded. Stable cardiomegaly noted. No obvious effusion. No pneumothorax. IMPRESSION: Limited portable examination. Cannot exclude pulmonary vascular congestion/interstitial edema or mild basilar atelectasis. <Electronically signed by Alex Garsia > 11/08/20 [id number]
[2020-11-08 11:32] LABS: ALT/SGPT 78 U/L (12-78); BILIRUBIN,DIRECT 0.3 MG/DL (0.0-0.2); BILIRUBIN,TOTAL 1.2 MG/DL (0.2-1.0); BLOOD UREA NITROGEN 15 MG/DL (7-18); CARBON DIOXIDE LEVEL 24 MEQ/L (21-32); CHLORIDE LEVEL 108 MEQ/L (98-107); CK-MB VALUE MASS < 1.0 NG/ML (<3.6); CPK CREATINE PHOSPHOKINASE 94 U/L (39-308); CREATININE FOR GFR 1.07 MG/DL (0.70-1.30); GLOMERULAR FILTRATION RATE > 60.0 (>60); GLUCOSE, FASTING 99 MG/DL (70-100); MB/CK RELATIVE INDEX 1.06 (< OR =4); NT-PRO BNP < 5 PG/ML (<125); POTASSIUM SERUM 4.1 MEQ/L (3.5-5.1); SODIUM LEVEL 141 MEQ/L (136-145); TOTAL PROTEIN 7.7 GM/DL (6.4-8.2); TROPONIN I < 0.02 NG/ML (< 0.10)
[2020-11-08 11:36] LABS: RSV AMPLIFICATION NEGATIVE (NEGATIVE)
[2020-11-08] MEDS ORDERED: ALBUTEROL 90 MCG/ACT 8GM HFA INHALER INH PRN (12:15)
[2020-11-08] MEDS ORDERED: CALCIUM CARBONATE 500 MG CHEW U/D PO PRN (12:25)
[2020-11-08] MEDS ORDERED: ISOVUE-370 76% 100ML VIAL As Ordered ONE (12:49)
--- NOTE | 2020-11-08 12:58 | HPEPDOC ---
General Date of Admission November 08, 2020 at 12:13 Date of Service: November 08, 2020 Chief Complaint The patient is a 45-year-old male admitted with a reason for visit of Chronic Respiratory Failure With Hypoxia, Dyspnea. Source: Patient Exam Limitations: No limitations Severity: Moderate History of Present Illness Patient is 45 years old male with past history of chronic hypoxemic respiratory failure on 4 L of oxygen, chronic steroid dependence, obstructive sleep apnea on CPAP, depression, hypertension presented to the hospital with increased shortness of breath and cough. Patient stated that his symptoms started 4-5 days ago when he developed intermittent cough without sputum production, chills and generalized weakness. Also patient reported increased shortness of breath on exertion. Patient follows by Dr. Galnido. No particular cause of his chronic respiratory failure was identified. He reports that he wanted to go to [facility], however, his insurance did not approve. Patient denied fever, dysuria or diarrhea. No chest pain or palpitations. In ER patient was found to have on chest x-ray Pulmonary vascular congestion/interstitial edema as well as basilar atelectasis cannot be excluded. Stable cardiomegaly noted. Labs pertinent for mild elevation of bilirubin to 1.2 Home Medications Scheduled Amitriptyline HCl (Amitriptyline HCl) 25 Mg Tablet, 50 MG PO QHS, (Reported) Aspirin (Aspirin EC) 81 Mg Tablet.dr, 81 MG PO DAILY, (Reported) Calcitriol (Calcitriol) 0.25 Mcg Capsule, 0.25 MCG PO DAILY, (Reported) Cyclobenzaprine HCl (Cyclobenzaprine HCl) 5 Mg Tablet, 5 MG PO QHS, (Reported) Duloxetine HCl (Duloxetine HCl) 60 Mg Capsule.dr, 60 MG PO DAILY, (Reported) Ketoconazole (Ketoconazole) 120 Ml Shampoo, 1 DOSE TOP Q2D, (Reported) Melatonin (Melatonin) 10 Mg Capsule, 10 MG PO QHS, (Reported) Methylphenidate HCl (Methylphenidate HCl) 5 Mg Tablet, 10 MG PO QAM, (Reported) Methylphenidate HCl (Methylphenidate HCl) 5 Mg Tab.chew, 5 MG PO DAILY, (Reported) TAKES AT NOON Metoprolol Succinate (Metoprolol Succinate) 100 Mg Tab.er.24h, 100 MG PO DAILY, (Reported) Pantoprazole Sodium (Pantoprazole Sodium) 40 Mg Tablet.dr, 40 MG PO QHS, (Reported) Potassium Chloride (Potassium Chloride) 10 Meq Tab.er.prt, 20 MEQ PO DAILY, (Reported) Prednisone (Prednisone) 5 Mg Tablet, 15 MG PO DAILY, (Reported) TAKE WITH 3 1MG TABS. TOTAL OF 18MG DAILY Pregabalin (Lyrica) 300 Mg Capsule, 300 MG PO BID, (Reported) Quetiapine Fumarate (Quetiapine Fumarate) 25 Mg Tablet, 25 MG PO QHS, (Reported) Ropinirole HCl (Ropinirole HCl) 1 Mg Tablet, 1 MG PO TID, (Reported) Sertraline HCl (Sertraline HCl) 50 Mg Tablet, 75 MG PO DAILY, (Reported) Sulfamethoxazole/Trimethoprim (Bactrim Ds Tablet) 1 Each Tablet, 1 TAB PO 3XW, (Reported) MONDAY, MONDAY AND MONDAY Torsemide (Torsemide) 20 Mg Tablet, 20 MG PO DAILY, (Reported) Scheduled PRN Calcium Carbonate (Tums) 200 Mg Tab.chew, 1,000 MG PO WM PRN for HEARTBURN, ( Reported) Hydroxyzine HCl (Hydroxyzine HCl) 25 Mg Tablet, 25 MG PO QID PRN for ANXIETY, (Reported) Allergies Coded Allergies: TAPE (Verified Allergy, Intermediate, HIVES, 04/03/19) PLASTIC TAPE, PAPER TAPE [place] silver (Verified Allergy, Intermediate, HIVES, 04/03/19) topiramate (Verified Allergy, Unknown, HIVES,CONFUSION, 06/26/20) acetazolamide (Verified Adverse Reaction, Unknown, " out of it", 06/26/20) Past Medical History Medical History Chronic hypoxic respiratory failure - 4L Nasal cannula oxygen Chronic steroid Dependence / PCP prophylaxis - Currently on Prednisone 18mg Weakness of bilateral upper / lower extremities - Not Chronic inflammatory demyelinating polyneuropathy - Negative muscle biopsy and nerve conduction studies PARISH on CPAP (15) HTN Depression Nephrolithiasis Fatty Liver Disease RLS Migraine headache / Idiopathic Intracranial HTN GERD Surgical History Appendectomy Cholecystectomy Umbilical hernia repair Left ankle surgery Left knee surgery Left ulnar nerve release Bone marrow biopsy Muscle biopsy Family History I personally reviewed it and found NOT PERTINENT Social History * Smoker: Denies Alcohol: Denies Drugs: denies A-FIB/CHADSVASC A-FIB History Current/History of A-Fib/PAF?: No Current PO Anticoag Therapy: No Review of Systems Constitutional: Reports: Chills, Weakness Eyes: Denies: Pain ENT: Denies: Head Aches Pulmonary: Reports: Dyspnea, Cough Cardiovascular: Denies: Chest Pain Gastrointestinal: Denies: Nausea Genitourinary: Denies: Dysuria Hematologic: Denies: Bruising Endocrine: Denies: Polydipsia Musculoskeletal: Denies: Neck Pain Neurological: Denies: Weakness Psych: Reports: Mood Normal Physical Examination General Exam: Positive: Alert, Cooperative Eye Exam: Positive: PERRLA ENT Exam: Positive: Atraumatic Neck Exam: Positive: Supple; Negative: JVD Chest Exam: Positive: Diminished Heart Exam: Positive: Rate Normal Telemetry: Positive: No significant arrhythmia Abdomen Exam: Positive: Normal bowel sounds Extremity Exam: Negative: Clubbing, Cyanosis Skin Exam: Positive: Nl turgor and temperature Neuro Exam: Positive: Normal Gait Psych Exam: Positive: Mental status NL Vital Signs Vital Signs Date Time Temp Pulse Resp B/P (MAP) Pulse Ox O2 Delivery O2 Flow Rate FiO2 11/08/20 12:30 24 117/61 (79) 11/08/20 12:17 86 97 Nasal Cannula 4.0 11/08/20 10:17 98.2 Laboratory Data Labs 24H Laboratory Tests 2 11/08/20 10:48: Blood Gas Bicarbonate Standard 24.1, Arterial Blood pH 7.399, Arterial Blood Partial Pressure CO2 40.1, Arterial Blood Partial Pressure O2 101.2H, Arterial Blood Total CO2 25.5, Arterial Blood HCO3 24.2, Arterial Blood Base Excess -0.5, Arterial Blood Oxygen Saturation 97.6 11/08/20 10:51: Coronavirus (COVID-19)(PCR) NEGATIVE, Influenza Type A (RT-PCR) NEGATIVE, Influenza Type B (RT-PCR) NEGATIVE, Respiratory Syncytial Virus (PCR) NEGATIVE 11/08/20 10:53: Immature Granulocyte % (Auto) 0.3, Neutrophils (%) (Auto) 47.1, Lymphocytes (%) (Auto) 41.1, Monocytes (%) (Auto) 6.8, Eosinophils (%) (Auto) 4.0H, Basophils (%) (Auto) 0.7, Neutrophils # (Auto) 3.5, Lymphocytes # (Auto) 3.1, Monocytes # (Auto) 0.5, Eosinophils # (Auto) 0.3, Basophils # (Auto) 0.1, Nucleated Red Bl ood Cells % (auto) 0.0, Anion Gap 9, Glomerular Filtration Rate > 60.0, Lactic Acid Level 1.1, Calcium Level 9.0, Total Bilirubin 1.2H, Direct Bilirubin 0.3H, Aspartate Amino Transf (AST/SGOT) 46H, Alanine Aminotransferase (ALT/SGPT) 78, Alkaline Phosphatase 123H, Total Creatine Kinase 94, Creatine Kinase MB < 1.0, Creatine Kinase MB Relative Index 1.06, Troponin I < 0.02, EX-Shq-F-Type Natriuretic Peptide < 5, Total Protein 7.7, Albumin 4.0, Albumin/Globulin Ratio 1.1 CBC/BMP Laboratory Tests 11/08/20 10:53 Microbiology Microbiology 11/08/20 Blood Culture, Received Pending 11/08/20 Blood Culture, Received Pending Assessment/Plan Patient is 45 years old male with past history of chronic hypoxemic respiratory failure on 4 L of oxygen, chronic steroid dependence, obstructive sleep apnea on CPAP, depression, hypertension presented to the hospital with increased shortness of breath and cough. Patient stated that his symptoms started 4-5 days ago when he developed intermittent cough without sputum production, chills and generalized weakness. Also patient reported increased shortness of breath on exertion. Patient follows by Dr. Galindo. No particular cause of his chronic respiratory failure was identified. He reports that he wanted to go to [facility], however, his insurance did not approve. Patient denied fever, dysuria or diarrhea. No chest pain or palpitations. In ER patient was found to have on chest x-ray Pulmonary vascular congestion/interstitial edema as well as basilar atelectasis cannot be excluded. Stable cardiomegaly noted. Labs pertinent for mild elevation of bilirubin to 1.2 Problems (1) Dyspnea Status: Acute Problem Text: Patient complains of increased dyspnea with cough Unknown trigger, patient doesn't have leukocytosis, no sputum production Inhalers IV steroids Azithromycin by mouth (2) Chronic respiratory failure with hypoxia, on home O2 therapy Status: Acute Problem Text: Continue oxygen supplementation (3) HTN (hypertension) Status: Chronic Problem Text: Continue home cardioprotective medication (4) Shortness of breath Status: Acute Problem Text: See above (5) Steroid-dependent COPD Status: Chronic Problem Text: Continue Bactrim (6) PARISH on CPAP Problem Text: Continue CPAP daily at bedtime (7) Depression Status: Chronic Problem Text: Continue home meds (8) GERD (gastroesophageal reflux disease) Status: Chronic Problem Text: Continue PPI Plan / VTE VTE Prophylaxis Ordered?: Yes BRYAN GARNER DO November 08, 2020 12:58
--- NOTE | 2020-11-08 13:20 | REP ---
INDICATION: cough/sob COMPARISON: None. TECHNIQUE: Axial contrast enhanced images from the thoracic inlet to the upper abdomen using pulmonary embolus technique with multiplanar re-formations. 75 ml Isovue 370 intravenous contrast material administered without complication. This CT examination was performed using the following dose reduction techniques: Automated exposure control, adjustment of mA and/or kv according to the patient's size, and use of iterative reconstruction technique. FINDINGS: Satisfactory enhancement of the pulmonary vasculature is achieved and no filling defects are identified to suggest pulmonary embolus. Thoracic aorta without aneurysm or dissection. Heart and pericardium are normal. Lung solis demonstrate right upper lobe and bilateral lower lobe atelectasis. No effusion. No pneumothorax. Tracheobronchial tree is patent. No significant adenopathy. IMPRESSION: No evidence for pulmonary embolus. Moderate scattered atelectasis. <Electronically signed by Alex Garsia > 11/08/20 [id number]
[2020-11-08 13:45] VITALS: BP 144/88
[2020-11-08] MEDS: IPRATROPIUM 0.5MG/ALBUTEROL 2.5MG INH SOL UD 3ML (DUONEB) NEB SCH ×2 (14:13→20:11)
[2020-11-08] MEDS: rOPINIRole 1MG TAB PO SCH ×2 (16:34→20:33)
[2020-11-08] MEDS ORDERED: LOMOTIL 2.5MG/0.025MG TABLET PO PRN (17:30)
[2020-11-08] MEDS: METHYLPHENIDATE 5 MG TAB PO SCH (17:48)
[2020-11-08] MEDS: methylPREDNISolone 125MG 2ML VIAL IV SCH (17:48)
[2020-11-08] MEDS: ADVAIR HFA 230/21MCG INHALER INH SCH (20:11)
[2020-11-08] MEDS: PREGABALIN 100 MG CAP (LYRICA) PO SCH (20:32)
[2020-11-08] MEDS: QUEtiapine FUMARATE 25 MG TAB PO SCH (20:33)
[2020-11-08] MEDS: CYCLOBENZAPRINE 5MG TABLET PO SCH (20:33)
[2020-11-08] MEDS: ENOXAPARIN 40MG/0.4ML SYRINGE (J1650 PER 10MG) SC SCH (20:33)
[2020-11-08] MEDS: AMITRIPTYLINE 50 MG TAB PO SCH (20:33)
[2020-11-08] MEDS: hydrOXYzine 25 MG TAB PO PRN (21:55)
[2020-11-08 22:00] VITALS: BP 112/71
[2020-11-08] MEDS: RAMELTEON 8 MG TAB (ROZEREM) PO PRN (23:27)
[2020-11-08] MEDS: ACETAMINOPHEN TAB 650MG DOSE (2X325MG) PO PRN (23:27)
[2020-11-09] VITALS (11 sets, daily range): BP systolic 96–132; BP diastolic 55–79
[2020-11-09] MEDS: IPRATROPIUM 0.5MG/ALBUTEROL 2.5MG INH SOL UD 3ML (DUONEB) NEB SCH ×4 (01:05→20:00)
[2020-11-09] MEDS: methylPREDNISolone 125MG 2ML VIAL IV SCH (01:31)
[2020-11-09] MEDS ORDERED: IBUPROFEN 800 MG TAB PO PRN (01:40)
[2020-11-09 02:42] LABS: ABG BASE EXCESS -2.5 (-2.0-2.0); ABG HCO3 21.8 MEQ/L (22.0-26.0); ABG PARTIAL PRESSURE CO2 36.3 mmHg (35.0-45.0); ABG PARTIAL PRESSURE O2 66.8 mmHg (75.0-100.0); ABG STANDARD HCO3 22.3 MEQ/L (22.0-26.0); ABG TOTAL CO2 22.9 MEQ/L (22.0-29.0); ABG pH (ARTERIAL) 7.397 UNITS (7.350-7.450)
[2020-11-09 03:26] LABS: TROPONIN I < 0.02 NG/ML (< 0.10)
[2020-11-09] MEDS: ACETAMINOPHEN TAB 650MG DOSE (2X325MG) PO PRN ×2 (04:01→13:35)
[2020-11-09] MEDS: hydrOXYzine 25 MG TAB PO PRN ×2 (04:01→20:45)
[2020-11-09 04:14] LABS: HEMATOCRIT 40.3 % (42.0-52.0); HEMOGLOBIN 13.1 g/dl (13.5-17.5); MEAN CORPUSCULAR HEMOGLOBIN 27.6 pg (27.0-33.0); MEAN CORPUSCULAR HGB CONC 32.5 g/dl (32.0-36.5); MEAN CORPUSCULAR VOLUME 84.8 fl (80.0-96.0); PLATELET COUNT, AUTOMATED 337 10^3/uL (150-450); RED BLOOD COUNT 4.75 10^6/uL (4.30-6.10); WHITE BLOOD COUNT 12.7 10^3/uL (4.0-10.0)
[2020-11-09 04:33] LABS: ALBUMIN 3.7 GM/DL (3.2-5.2); ALT/SGPT 70 U/L (12-78); BILIRUBIN,TOTAL 0.9 MG/DL (0.2-1.0); BLOOD UREA NITROGEN 15 MG/DL (7-18); CALCIUM LEVEL 8.4 MG/DL (8.5-10.1); CARBON DIOXIDE LEVEL 21 MEQ/L (21-32); CHLORIDE LEVEL 107 MEQ/L (98-107); CREATININE FOR GFR 1.06 MG/DL (0.70-1.30); GLOMERULAR FILTRATION RATE > 60.0 (>60); GLUCOSE, FASTING 166 MG/DL (70-100); MAGNESIUM LEVEL 2.1 MG/DL (1.8-2.4); POTASSIUM SERUM 3.8 MEQ/L (3.5-5.1); SODIUM LEVEL 140 MEQ/L (136-145); TOTAL PROTEIN 7.2 GM/DL (6.4-8.2)
[2020-11-09 05:34] LABS: ABG BASE EXCESS -3.5 (-2.0-2.0); ABG HCO3 21.2 MEQ/L (22.0-26.0); ABG O2 SATURATION 92.3 % (95.0-99.0); ABG PARTIAL PRESSURE CO2 37.1 mmHg (35.0-45.0); ABG PARTIAL PRESSURE O2 66.9 mmHg (75.0-100.0); ABG STANDARD HCO3 21.5 MEQ/L (22.0-26.0); ABG TOTAL CO2 22.3 MEQ/L (22.0-29.0); ABG pH (ARTERIAL) 7.374 UNITS (7.350-7.450)
[2020-11-09] MEDS: ADVAIR HFA 230/21MCG INHALER INH SCH ×2 (08:03→20:29)
[2020-11-09] MEDS ORDERED: AZITHROMYCIN 250MG TABLET PO SCH (09:00)
[2020-11-09] MEDS: rOPINIRole 1MG TAB PO SCH ×3 (09:00→20:45)
--- NOTE | 2020-11-09 09:23 | ECGEPIP ---
[facility] - ED Test Date: 2020-11-08 Pat Name: ROLLY YANCEY Department: Room: - Gender: Male Manager Transition: Cheng CHOI : 1975 Requested By: Ping Pacheco Order Number: [id number] Reading MD: Ping Pacheco Measurements Intervals [place] Rate: 102 P: 29 DE: 136 QRS: -9 QRSD: 110 T: 12 QT: 364 QTc: 474 Interpretive Statements Sinus tachycardia inferior infarct, old NSTTW abnormalities decreased rate 10/03/20 Electronically Signed on 11-09-2020 9:23:48 EDT by Ping Pacheco
[2020-11-09] MEDS: PANTOPRAZOLE 40MG TAB (PROTONIX) PO SCH (09:59)
[2020-11-09] MEDS: TORSEMIDE 20 MG TAB PO SCH (09:59)
[2020-11-09] MEDS: ASPIRIN 81MG ENTERIC TABLET PO SCH (09:59)
[2020-11-09] MEDS: METOPROLOL SUCC (TopROL XL) 100MG *XL* TAB PO SCH (09:59)
[2020-11-09] MEDS: PREGABALIN 100 MG CAP (LYRICA) PO SCH ×2 (09:59→20:45)
[2020-11-09] MEDS: POTASSIUM CHLORIDE 10 MEQ SR TABLET PO SCH (09:59)
[2020-11-09] MEDS: METHYLPHENIDATE 5 MG TAB PO SCH ×2 (10:00→13:35)
[2020-11-09] MEDS: predniSONE 20 MG TAB PO SCH (10:04)
--- NOTE | 2020-11-09 10:21 | IPNPDOC ---
Text Note Date of Service The patient was seen on 11/09/20. NOTE Subjective: Overnight patient oxygen requirements increased, he was transferred to the ICU, he received treatment with BiPAP with FiO2 60. In the morning patient stated that his breathing improved and he was on 15 L of oxygen via nasal cannula. Patient denied any fever, cough, sputum or chills Objective: GENERAL APPEARANCE: NAD HEENT: no scleral icterus, no JVD, EOMI CARDIOVASCULAR: S1S2 LUNGS: Diminished lung sounds bilaterally ABDOMEN: soft & not tender w palpitation, obese MUSCULOSKELETAL: no cyanosis, no swelling INTEGUMENT: no generalized pallor NEUROLOGICAL: cranial nerve function from 2-12 intact intact, follows commands, speech not dysarthric Assessment/Plan Patient is 45 years old male with past history of chronic hypoxemic respiratory failure on 4 L of oxygen, chronic steroid dependence, obstructive sleep apnea on CPAP, depression, hypertension presented to the hospital with increased shortness of breath and cough. Patient stated that his symptoms started 4-5 days ago when he developed intermittent cough without sputum production, chills and generalized weakness. Also patient reported increased shortness of breath on exertion. Patient follows by Dr. Galindo. No particular cause of his chronic respiratory failure was identified. He reports that he wanted to go to [facility], however, his insurance did not approve. Patient denied fever, dysuria or diarrhea. No chest pain or palpitations. In ER patient was found to have on chest x-ray Pulmonary vascular congestion/interstitial edema as well as basilar atelectasis cannot be excluded. Stable cardiomegaly noted. Labs pertinent for mild elevation of bilirubin to 1.2 Problems (1) Dyspnea Unknown trigger, patient doesn't have leukocytosis, no sputum production Procalcitonin negative Inhalers IV steroids changed to prednisone 40 mg DC Azithromycin by mouth I discussed the case with Dr. Galindo, she recommended to discontinue antibiotic therapy and IV steroids (2) acute on chronic respiratory failure with hypoxia, on home O2 therapy Continue oxygen supplementation (3) HTN (hypertension) Continue home cardioprotective medication (4) Shortness of breath See above (5) Steroid-dependent COPD Continue Bactrim (6) PARISH on CPAP Continue CPAP daily at bedtime (7) Depression Continue home meds (8) GERD (gastroesophageal reflux disease) Continue PPI VS,Fishbone, I+O VS, Fishbone, I+O Laboratory Tests 11/08/20 10:53 11/09/20 02:45 Vital Signs Date Time Temp Pulse Resp B/P (MAP) Pulse Ox O2 Delivery O2 Flow Rate FiO2 11/09/20 09:59 108 131/68 11/09/20 08:45 22 89 High Flow Cannula 15.0 11/09/20 08:00 60 11/09/20 03:12 98.0 I&O- Last 24 Hours up to 6 AM 11/09/20 06:00 Intake Total 1030 ml Output Total 525 ml Balance 505 ml BRYAN GARNER DO November 09, 2020 10:21
[2020-11-09] MEDS: BACTRIM 160MG/800MG DS TAB PO SCH (11:07)
[2020-11-09] MEDS: CALCITRIOL 0.25 MCG CAP (S0169) PO SCH (11:07)
[2020-11-09] MEDS: SERTRALINE HCL 25 MG TABLET PO SCH (11:07)
[2020-11-09] MEDS: QUEtiapine FUMARATE 25 MG TAB PO SCH (20:44)
[2020-11-09] MEDS: RAMELTEON 8 MG TAB (ROZEREM) PO PRN (20:45)
[2020-11-09] MEDS: CYCLOBENZAPRINE 5MG TABLET PO SCH (20:45)
[2020-11-09] MEDS: AMITRIPTYLINE 50 MG TAB PO SCH (20:45)
[2020-11-09] MEDS: ENOXAPARIN 40MG/0.4ML SYRINGE (J1650 PER 10MG) SC SCH (20:45)
[2020-11-10] VITALS: BP 122/72
[2020-11-10] MEDS: IPRATROPIUM 0.5MG/ALBUTEROL 2.5MG INH SOL UD 3ML (DUONEB) NEB SCH ×4 (01:16→20:00)
[2020-11-10 04:00] VITALS: BP 126/80
[2020-11-10] MEDS: ADVAIR HFA 230/21MCG INHALER INH SCH ×2 (07:15→20:17)
[2020-11-10 07:57] LABS: HEMATOCRIT 40.9 % (42.0-52.0); HEMOGLOBIN 13.2 g/dl (13.5-17.5); MEAN CORPUSCULAR HEMOGLOBIN 27.6 pg (27.0-33.0); MEAN CORPUSCULAR HGB CONC 32.3 g/dl (32.0-36.5); MEAN CORPUSCULAR VOLUME 85.6 fl (80.0-96.0); PLATELET COUNT, AUTOMATED 316 10^3/uL (150-450); RED BLOOD COUNT 4.78 10^6/uL (4.30-6.10); WHITE BLOOD COUNT 13.4 10^3/uL (4.0-10.0)
[2020-11-10 08:00] VITALS: BP 129/72
[2020-11-10 08:21] LABS: ALBUMIN 3.6 GM/DL (3.2-5.2); ALT/SGPT 60 U/L (12-78); ANISOCYTOSIS 1+; ATYPICAL LYMPH 2 % (0-5); BILIRUBIN,TOTAL 0.4 MG/DL (0.2-1.0); BLOOD UREA NITROGEN 19 MG/DL (7-18); CALCIUM LEVEL 8.8 MG/DL (8.5-10.1); CARBON DIOXIDE LEVEL 26 MEQ/L (21-32); CHLORIDE LEVEL 105 MEQ/L (98-107); CREATININE FOR GFR 1.07 MG/DL (0.70-1.30); EOSINOPHILS 1 % (0-3); GLOMERULAR FILTRATION RATE > 60.0 (>60); GLUCOSE, FASTING 123 MG/DL (70-100); LYMPHOCYTES 27 % (16-44); MAGNESIUM LEVEL 2.4 MG/DL (1.8-2.4); MONOCYTES 9 % (0-5); NEUTROPHILS 61 % (28-66); PLATELET ESTIMATE NORMAL (NORMAL); POTASSIUM SERUM 3.8 MEQ/L (3.5-5.1); SODIUM LEVEL 141 MEQ/L (136-145); TOTAL PROTEIN 7.1 GM/DL (6.4-8.2)
[2020-11-10] MEDS: rOPINIRole 1MG TAB PO SCH ×3 (08:21→21:10)
[2020-11-10] MEDS: ASPIRIN 81MG ENTERIC TABLET PO SCH (08:21)
[2020-11-10] MEDS: SERTRALINE HCL 25 MG TABLET PO SCH (08:21)
[2020-11-10] MEDS: PREGABALIN 100 MG CAP (LYRICA) PO SCH ×2 (08:21→21:09)
[2020-11-10] MEDS: POTASSIUM CHLORIDE 10 MEQ SR TABLET PO SCH (08:22)
[2020-11-10] MEDS: predniSONE 20 MG TAB PO SCH (08:22)
[2020-11-10] MEDS: METHYLPHENIDATE 5 MG TAB PO SCH ×2 (08:22→15:01)
[2020-11-10] MEDS: TORSEMIDE 20 MG TAB PO SCH (08:22)
[2020-11-10] MEDS: PANTOPRAZOLE 40MG TAB (PROTONIX) PO SCH (08:23)
[2020-11-10] MEDS: CALCITRIOL 0.25 MCG CAP (S0169) PO SCH (08:23)
[2020-11-10] MEDS: METOPROLOL SUCC (TopROL XL) 100MG *XL* TAB PO SCH (08:23)
[2020-11-10 09:15] LABS: PHOSPHORUS LEVEL 3.6 MG/DL (2.5-4.9)
--- NOTE | 2020-11-10 09:55 | IPN ---
PROGRESS NOTE DATE: 11/10/2020 SUBJECTIVE: Overnight the patient used CPAP and is now 95% on 4 liters, 4 liters is his usual oxygen requirements. He states he does use his CPAP at home. It does appear that his hypoxia responds to pressure therapy, which confirms my suspicion of hypoventilation. There is a suspicion of diaphragmatic weakness both on my part and the part of a operational risk consultant in [place]. He had an outpatient order for a Sniff test, which we will perform here today. This morning he has wheeze, but it is an upper airway wheeze coming from his larynx. There is no wheeze coming from the chest. When he is speaking, the wheeze is inaudible. He has had no fever or chills. On admission, he did have increase in his steroids now and he is down to 40 mg a day. Will continue to try to taper this over time. He has no productive cough. His cough is intermittent. He denies any chest pain, but initially complained of chest tightness. He has no lower extremity calf pain or symptoms of thromboembolic disease. As mentioned yesterday, his CT angio again was performed with no filling defects. There is bilateral atelectasis with hypoventilation, no pneumothorax. PHYSICAL EXAMINATION: VITAL SIGNS: Temperature 98.1, pulse 90, respiratory rate 16, blood pressure 126/80 with a MAP of 95. On CPAP his oxygen saturation was 98% on 4 liters, taken off CPAP this morning 97% on 6 liters via nasal cannula. Then I took down his oxygen to 4 liters and after 15 minutes on that, his oxygen saturation was 95%. GENERAL: Awake, alert and oriented. Affect is flat. Speech is clear and non-tangential. HEENT: Sclerae clear, nonicteric. Pupils equal and reactive to light. Mucous membranes are moist. Tongue is midline. Neck is supple. No tracheal deviation. LYMPH: No cervical, supraclavicular or axillary adenopathy. There is an audible laryngeal wheeze coming from the upper airway. It is expiratory in nature. It is at the end of the expiratory phase. CARDIAC: S1, S2, without audible murmur, rub or gallop. No elevated JVP. No peripheral edema. PULMONARY: Decreased breath sounds throughout, but clear to auscultation without rales, rhonchi or wheezes. No dullness to percussion. No accessory muscle use. ABDOMEN: Obese, soft, nontender, non-distended. No hepatosplenomegaly. EXTREMITIES: No cyanosis, clubbing or edema. SKIN: Pale without rash, dryness or bruising. MUSCULOSKELETAL: Fairly normal muscle tone despite his complaints of weakness. Fairly good muscle strength bilaterally without evidence of unilateral weakness. No tremor. No asterixis. LABORATORY EVALUATION: White count 13.4, hemoglobin 13.2, platelet count 316,000. Chemistries are still pending from this morning. ASSESSMENT AND PLAN: 1. Hypoventilation with hypoxia: Clearly improved with use of pressure therapy. At this point in time, I do not believe there is another contributing agent to his hypoxia. I agree with performing Sniff testing to look for diaphragmatic weakness. I do have a suspicion of underlying neurologic disorder. His MIPs and MVVs in the office are low. It does not appear that he has any evidence of parenchymal lung disease on chest CT, however, he was on 18 mg of prednisone at the time that this was performed. Previous attempts towards taper lead to hospitalizations and increasing his prednisone and therefore have not been able to entirely rule out the possibility of steroid responsive interstitial lung disease. Most likely, however, this appears to be neurologic weakness and hypoventilation. He does fairly well if he remains on CPAP even though he states he is compliant at home, I do question this. He has no evidence of hypercarbia. 2. Laryngeal wheeze: This is likely vocal cord dysfunction, however, cannot rule out the possibility of vocal cord abnormalities in someone who is exhibiting neurologic weakness. He may even have a form of Shy-Drager. Therefore if this continues, we will involve ENT for an upper airway exam including laryngoscopy.
--- NOTE | 2020-11-10 10:07 | CR ---
PULMONARY CONSULTATION DATE: 11/08/2020 HISTORY OF PRESENT ILLNESS: Jhon Pate is a 45-year-old male who presented to the hospital with worsening shortness of breath and chest tightness. His symptoms started on of last week and have been worsening over the weekend. He also notes nausea starting on Monday, which has persisted. He was recently seen by a physician in [place], [place] who suggested he titrate down on his prednisone dose. He was also seen outpatient by Dr. Galindo, who recommended starting methotrexate to help wean off the steriods. However, the physician in [facility] asked the patient not to start the methotrexate until he is able to review the case further and obtain some additional testing. The patient states he has been working on this and is down to 17 mg daily when he started having worsening symptoms. He states his symptoms do improve when his prednisone dose is higher and tend to get worse as he titrates down on it. Going back into a more extensive history, his symptoms all started in October of 2018. He states that he woke up one morning after working a 16-hour shift feeling very short of breath and with chest tightness across the front of his chest. He denies ever having symptoms like this in the past. He was initially seen at urgent care for this and sent to the hospital. He was initially diagnosed with a viral infection with metapneumovirus. He was sent to [place] and at some point intubated due to the severity of his symptoms. He did have a bronchoscopy done while hospitalized in [place], which was suspicious for cryptogenic organizing pneumonia. However, it is unclear if this was an accurate diagnosis as he had recently been diagnosed with a viral pneumonia. In any case, the patient continued to have progressive worsening of his symptoms and in March of that year he was noted to have progressive weakness and muscle aching in bilateral upper and lower extremities. At that time, he was diagnosed with chronic inflammatory demyelinating polyneuropathy (CIPD), which was thought to contribute to his respiratory as well as his muscular symptoms. The patient states that over the past two years he has had progressive worsening of both his breathing, his strength, and muscle aches. He has undergone extensive testing. Lumbar puncture was performed at one point by neurology, which showed elevated opening pressure and protein levels. He has also undergone bone marrow biopsy and muscle biopsy. Throughout his workup, neurology advised against the diagnosis of chronic inflammatory demyelinating polyneuropathy (CIPD). The patient reports that since having lumbar puncture, he has had chronic headaches as well as tremors in his hands and feet. He has noted that when walking his feet curl in so that he is walking on the outer edges of his feet. He does use braces on his legs to walk now due to this. He has been chronically on steroids for approximately the past two years, and it does not appear he has been off of steroids for any significant amount of time. He is taking Pneumocystis pneumonia (PCP) prophylaxis and a PPI. It seems every time he has been titrated down on his steroids, he ends up back in the hospital and receives large doses of steroids again, which require re-titration to attempt to discontinue. Additionally, review of systems was performed as noted below with many positives. It is difficult to interpret which of his symptoms discussed in the review of systems are from the disease process itself versus medication side effects versus other processes that could be going along at the same time. REVIEW OF SYSTEMS: CONSTITUTIONAL: Negative for fevers, chills, night sweats. Positive for weight gain and fatigue. The weight gain is noted to be specifically since he has been on steroids. Patient denies earache, sore throat or trouble swallowing. He has noted blurry vision and some double vision since having a spinal tap done. He also feels like his hearing has decreased bilaterally. CARDIAC: Endorses chest tightness which is worse when his breathing is worse. He also notes peripheral swelling in his arms and legs which he contributes to his steroid use and notes it is worsening when he is on higher levels of steroids. He reports tachycardia when his breathing is worse along with palpitations associated with his tachycardia. PULMONARY: He reports a dry cough. Wheezing present only when he has an episode of worsening shortness of breath as describes in the history of present illness (HPI). No hemoptysis. GASTROINTESTINAL: Reports chronic diarrhea which has been going on for a long time prior to the onset of his current illness. He denies abdominal pain or constipation. He does report nausea with vomiting which occurs when his shortness of breath is worse. GENITOURINARY: He denies dysuria. He reports urinary frequency and urgency all the time. He is on diuretic. He also reports that feeling of incomplete emptying when urinating. He has no history of known urinary retention. MUSCULOSKELETAL: Reports muscle aches as noted above. He does report low back pain and stiffness which is worse in the morning on getting out of bed and seems to improve by early afternoon. ENDOCRINE: Denies polydipsia, polyuria, hot flashes, cold flashes. NEUROLOGIC: Reports numbness and tingling in his feet and hands at times. He does have a history of carpal tunnel in bilateral wrists. He reports the numbness in his feet is worse when sitting down for a long time. PSYCHIATRIC: Denies any feeling of depression or anxiety. HEMATOLOGIC: Denies any easy bruising or bleeding. LYMPHATIC: Denies any swollen lymph nodes or bumps in the neck, axilla, or groins. SKIN: Denies any rashes or lesions. PAST MEDICAL HISTORY: 1. Hypertension. 2. Chronic hypoxic respiratory failure on four liters nasal cannula option at home. 3. Chronic steroid dependence. 4. Bilateral upper and lower extremities weakness without a clear etiology. 5. Obstructive sleep apnea (PARISH); noncompliant with CPAP at times. 6. Depression. 7. Idiopathic intracranial hypertension. PAST SURGICAL HISTORY: 1. Appendectomy. 2. Cholecystectomy. 3. Umbilical hernia repair. 4. Left ankle surgery. 5. Left knee surgery. 6. Left ulnar nerve release. 7. Bone marrow biopsy. 8. Muscle biopsy. 9. Lumbar puncture. ALLERGIES: He has allergies to ACETAZOLAMIDE, reporting feeling "out of it;" TOPIRAMATE, reporting hives and confusion; and silver on Tegaderm mesh, reporting hives; and tape, reporting hives. HOME MEDICATIONS: 1. Amitriptyline 50 mg at night 2. Aspirin 81 mg daily 3. Calcitriol 0.25 mg daily 4. Calcium carbonate p.r.n. for heartburn 5. Cyclobenzaprine 5 mg at night 6. Duloxetine 60 mg daily 7. Hydroxyzine 25 mg four times a day as needed for anxiety 8. Ketoconazole shampoo every other day 9. Melatonin 10 mg at night 10. Methylphenidate 10 mg in the morning and 5 mg at noon 11. Toprol succinate 100 mg daily 12. Protonix 40 mg at night 13. Potassium chloride 20 mEq daily 14. Prednisone 18 mg daily 15. Lyrica 300 mg twice a day 16. Seroquel 25 mg at night 17. Ropinirole 1 mg three times a day 18. Sertraline 75 mg daily 19. Bactrim one tablet Monday, Monday, Monday. 20. Torsemide 20 mg daily FAMILY MEDICAL HISTORY: Reports a similar constellation of symptoms in two of his mother's cousins, which would be his second cousins. He reports one of these cousins ended up with a tracheostomy and the other one ended up in a wheelchair. He is unsure what official diagnosis either of these family members had. He reports both of these family members have since . He is not sure what age they at. SOCIAL HISTORY: He denies any history of tobacco us or illicit substance use. He states he drinks alcohol very occasionally, 1-2 drinks at a time, less than once a week. 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 Currently, he lives at home with his son. He has no history of travel outside the [place] in his life. No recent travel in the past 5 years. PHYSICAL EXAMINATION: VITAL SIGNS: Temperature is 98.0 degrees Fahrenheit temporal. Heart rate 110. Respiratory rate 26. Blood pressure 118/71, with oxygen saturation 89% on high-flow nasal cannula at 15 liters per minute. GENERAL: Patient is sitting up comfortably in chair in no acute distress; speaking in full sentences. HEENT: Head normocephalic and atraumatic. Sclerae anicteric. Pupils equal and reactive to light and accommodation. Conjunctivae clear. Moist mucous membranes. NECK: Supple. Trachea midline. No lymphadenopathy or thyromegaly. CARDIAC: Tachycardic with regular rate. Normal S1 and S2. No murmurs, rubs or gallops appreciated. No peripheral edema noted. PULMONARY: Lungs are clear to auscultation bilaterally without wheezing, rales or rhonchi. There is equal air entry bilaterally but lung sounds are somewhat distant. ABDOMEN: Soft, nontender, nondistended. Bowel sounds present. EXTREMITIES: Pulses 2 plus in bilateral dorsalis pedis and radial arteries. No pitting edema present. Bilateral calves are tender to palpation. SKIN: No rash or lesions appreciated. NEUROLOGIC: Alert and oriented times 3 to person, place and time. Cranial nerves II through XII grossly intact. Strength in the upper and lower extremities is 3/10 bilaterally. He does seem to have a tremor while holding his hands straight. This improves with [id number] touch. Pulses 2/4 in bilateral upper and lower extremities. Babinski reflex is downgoing. PSYCHIATRIC: Normal mood and affect. LABORATORY DATA: White blood cell count 12.7, hemoglobin 13.1, hematocrit 40.3, platelet count 337. Sodium 140, potassium 3.8, chloride 107, carbon dioxide 21, BUN 15, creatinine 1.06, glucose 166, calcium 8.4. Liver profile shows AST of 34, ALT 70, alkaline phosphatase 110, total protein 7.2, albumin 3.7. Troponin level is less than 0.02. Procalcitonin is less than 0.05. Arterial blood gas this morning shows pH 7.374, pCO2 of 37.1, pO2 of 66.9, bicarbonate 21.2, oxygen saturation 92.3%. IMAGING RESULTS ON ADMISSION: He did have a chest x-ray which shows cardiomegaly and poor inspiratory effort with likely basilar atelectasis, unchanged or slightly improved from his prior chest x-ray in September of 2020. CT angiography on admission was consistent with atelectasis, again no change or slightly improved from his prior CT angiography in September of 2020. IMPRESSION/PLAN: [id number] male with two-year history of worsening hypoxia secondary to restrictive lung impairment along with bilateral upper and lower extremity muscle weakness and aching most consistent with neurological process currently of unknown etiology as his extensive workup has not revealed any clear diagnosis at this point. 1. Hypoxia likely secondary to hypoventilation. His average oxygen requirement is four liters via nasal cannula, which he is on at home. Currently, he is requiring 15 liters on high-flow nasal cannula. It seems he refused to wear his CPAP last night as he feels claustrophobic then he is feeling short of breath and using the CPAP at night. However, using his CPAP would likely improve his respiratory status as his imaging shows atelectasis and I encouraged him to make sure that he is compliant with this every night as well as when taking any naps. I have recommended discontinuing IV steroids and switching to oral prednisone 40 mg daily and continuing titrating this down as much as possible. His chronic high-dose steroid use may be contributing to his overall worsening functional status. 2. Restrictive lung disease on pulmonary function tests (PFTs). This could be due to neurological disorder causing weakness and dysfunction of his respiratory muscles. He has had low maximal inspiratory pressures (MIPs) and low maximal voluntary ventilation (MVV) as well as low tidal volume. He should continue on inhaled therapy with Advair. 3. Chronic prednisone use. His extended course of steroid treatment, which has typically been escalated anytime he has been hospitalized over the past two years and he has been difficult to titrate off of steroids, could contribute to his overall picture and symptomatology. It is difficult to assess if there is a role of steroid-induced myopathy. At this point, we would recommend discontinuing IV steroids and switching back to oral prednisone at 40 mg daily. He should be slowly titrated off of this in order to determine his status without steroids on board. He should continue on chronic suppressive therapy with Bactrim three days a week as long as he is on steroids. He should also continue with a PPI. He is currently on Protonix 40 mg daily. 4. Obstructive sleep apnea. Patient reports being compliant with his machine up until he starts feeling more short of breath and chest tightness. He states he cannot wear his CPAP during these episodes due to feeling claustrophobic as if he cannot get enough air to breathe. This likely contributes to his increasing atelectasis. His obesity may contribute to this picture as well. I recommended him continuing to use the CPAP anytime he is sleeping and if taking naps during the day. Overall, I suspect that his respiratory status is related to some underlying neurological disorder. He is following with a new physician in [place], [place] who requested sniff testing. That physician also recommended titrating off the steroids as tolerated to help clear up the picture as what is going on and what are side effects from the steroids. It is unclear if he even needs to be on chronic steroid therapy as we do not have a clear diagnosis. However, he seems to become more symptomatic anytime he is titrated off or down on the steroids. It is unclear if there is some sort of psychological component contributing to this. Overall, he currently appears quite stable with no acute pulmonary process revealed in his workup. If he is able to tolerate the CPAP, his overall respiratory status will likely improve back to his baseline of four liters on nasal cannula. Polly Galindo, agree with the assessment and plan as outlined above after I have performed an independent history and physical exam. Chest CT is only consistent with hypoventilation and decreased lung volumes. There is no evidence of acute ILD. Suspect neuromuscular weakness as the main cause with steroid myopathy in the differential. Would decrease his steroids to 40 and then quickly to his baseline of 18 mg and as an outpt I will continue to attempt tapering from there. We will continue to follow especially because an undiagnosed inflammatory lung disease could emerge with tapering of steroids. MTDD
--- NOTE | 2020-11-10 10:41 | IPNPDOC ---
Text Note Date of Service The patient was seen on 11/10/20. NOTE Subjective: Patient stated that his during better today, his shortness of breath improved and his oxygen requirements around 6 L of oxygen in the morning Objective: GENERAL APPEARANCE: NAD HEENT: no scleral icterus, no JVD, EOMI CARDIOVASCULAR: S1S2 LUNGS: Diminished lung sounds bilaterally ABDOMEN: soft & not tender w palpitation, obese MUSCULOSKELETAL: no cyanosis, no swelling INTEGUMENT: no generalized pallor NEUROLOGICAL: cranial nerve function from 2-12 intact intact, follows commands, speech not dysarthric Assessment/Plan Patient is 45 years old male with past history of chronic hypoxemic respiratory failure on 4 L of oxygen, chronic steroid dependence, obstructive sleep apnea on CPAP, depression, hypertension presented to the hospital with increased shortnes s of breath and cough. Patient stated that his symptoms started 4-5 days ago when he developed intermittent cough without sputum production, chills and generalized weakness. Also patient reported increased shortness of breath on exertion. Patient follows by Dr. Galindo. No particular cause of his chronic respiratory failure was identified. He reports that he wanted to go to [facility], however, his insurance did not approve. Patient denied fever, dysuria or diarrhea. No chest pain or palpitations. In ER patient was found to have on chest x-ray Pulmonary vascular congestion/interstitial edema as well as basilar atelectasis cannot be excluded. Stable cardiomegaly noted. Labs pertinent for mild elevation of bilirubin to 1.2 Problems (1) Dyspnea Unknown trigger, patient doesn't have leukocytosis, no sputum production Most likely multifactorial. There is concern for vocal cord dysfunction given laryngeal wheezes, diaphragmatic dysfunction and possible underlying neurological diseases. His MIPs and MVVs were low. Dr. Galindo follows him. Pulmonology team will proceed with SNIFF test today. Inhalers Continue prednisone 40 mg daily (2) acute on chronic respiratory failure with hypoxia, on home O2 therapy Continue oxygen supplementation (3) HTN (hypertension) Continue home cardioprotective medication (4) Shortness of breath See above (5) Steroid-dependent COPD Continue Bactrim (6) PARISH on CPAP Continue CPAP daily at bedtime (7) Depression Continue home meds (8) GERD (gastroesophageal reflux disease) Continue PPI VS,Fishbone, I+O VS, Fishbone, I+O Laboratory Tests 11/10/20 07:41 Vital Signs Date Time Temp Pulse Resp B/P (MAP) Pulse Ox O2 Delivery O2 Flow Rate FiO2 11/10/20 08:00 98.0 97 20 129/72 (91) 91 High Flow Cannula 6.0 11/09/20 08:00 60 I&O- Last 24 Hours up to 6 AM 11/10/20 06:00 Intake Total 1740 ml Output Total 1725 ml Balance 15 ml BRYAN GARNER DO Nov 10, 2020 10:41
[2020-11-10 12:00] VITALS: BP 136/82
[2020-11-10 15:34] VITALS: BP 139/92
[2020-11-10] MEDS ORDERED: TAMSULOSIN 0.4 MG CAP PO ONE (20:00)
[2020-11-10] MEDS: ENOXAPARIN 40MG/0.4ML SYRINGE (J1650 PER 10MG) SC SCH (21:08)
[2020-11-10] MEDS: CYCLOBENZAPRINE 5MG TABLET PO SCH (21:09)
[2020-11-10] MEDS: AMITRIPTYLINE 50 MG TAB PO SCH (21:09)
[2020-11-10] MEDS: RAMELTEON 8 MG TAB (ROZEREM) PO PRN (21:09)
[2020-11-10] MEDS: hydrOXYzine 25 MG TAB PO PRN (21:10)
[2020-11-10] MEDS: QUEtiapine FUMARATE 25 MG TAB PO SCH (21:10)
[2020-11-10 22:00] VITALS: BP 121/64
[2020-11-11] MEDS: IPRATROPIUM 0.5MG/ALBUTEROL 2.5MG INH SOL UD 3ML (DUONEB) NEB SCH ×5 (02:00→23:05)
[2020-11-11 06:00] VITALS: BP 114/69
[2020-11-11] MEDS: ADVAIR HFA 230/21MCG INHALER INH SCH ×2 (07:15→19:55)
[2020-11-11] MEDS: CALCITRIOL 0.25 MCG CAP (S0169) PO SCH (08:40)
[2020-11-11] MEDS: PREGABALIN 100 MG CAP (LYRICA) PO SCH ×2 (08:40→20:51)
[2020-11-11] MEDS: METHYLPHENIDATE 5 MG TAB PO SCH ×2 (08:40→16:20)
[2020-11-11] MEDS: SERTRALINE HCL 25 MG TABLET PO SCH (08:41)
[2020-11-11] MEDS: POTASSIUM CHLORIDE 10 MEQ SR TABLET PO SCH (08:41)
[2020-11-11] MEDS: ASPIRIN 81MG ENTERIC TABLET PO SCH (08:41)
[2020-11-11] MEDS: rOPINIRole 1MG TAB PO SCH ×3 (08:41→20:51)
[2020-11-11] MEDS: predniSONE 20 MG TAB PO SCH (08:41)
[2020-11-11] MEDS: TAMSULOSIN 0.4 MG CAP PO SCH (08:42)
[2020-11-11] MEDS: TORSEMIDE 20 MG TAB PO SCH (08:42)
[2020-11-11] MEDS: BACTRIM 160MG/800MG DS TAB PO SCH (08:42)
[2020-11-11] MEDS: PANTOPRAZOLE 40MG TAB (PROTONIX) PO SCH (08:42)
[2020-11-11] MEDS: METOPROLOL SUCC (TopROL XL) 100MG *XL* TAB PO SCH (08:44)
--- NOTE | 2020-11-11 10:45 | IPNPDOC ---
Text Note Date of Service The patient was seen on 11/11/20. NOTE Subjective: Patient complains of dysuria, he reported that he has a feeling of not fully empty bladder after urination, dribbling urination. He stated that he needs to strain when he urinated. He reported that he has never had this symptoms before Objective: GENERAL APPEARANCE: NAD HEENT: no scleral icterus, no JVD, EOMI CARDIOVASCULAR: S1S2 LUNGS: Diminished lung sounds bilaterally ABDOMEN: soft & not tender w palpitation, obese MUSCULOSKELETAL: no cyanosis, no swelling INTEGUMENT: no generalized pallor NEUROLOGICAL: cranial nerve function from 2-12 intact intact, follows commands, speech not dysarthric Assessment/Plan Patient is 45 years old male with past history of chronic hypoxemic respiratory failure on 4 L of oxygen, chronic steroid dependence, obstructive sleep apnea on CPAP, depression, hypertension presented to the hospital with increased shortness of breath and cough. Patient stated that his symptoms started 4-5 days ago when he developed intermittent cough without sputum production, chills and generalized weakness. Also patient reported increased shortness of breath on exertion. Patient follows by Dr. Galindo. No particular cause of his chronic respiratory failure was identified. He reports that he wanted to go to [facility], however, his insurance did not approve. Patient denied fever, dysuria or diarrhea. No chest pain or palpitations. In ER patient was found to have on chest x-ray Pulmonary vascular congestion/interstitial edema as well as basilar atelectasis cannot be excluded. Stable cardiomegaly noted. Labs pertinent for mild elevation of bilirubin to 1.2 Problems (1) Dyspnea Unknown trigger, patient doesn't have leukocytosis, no sputum production Most likely multifactorial. There is concern for vocal cord dysfunction given laryngeal wheezes, diaphragmatic dysfunction and possible underlying neurological diseases. His MIPs and MVVs were low. Dr. Galindo follows him. SNIFF test was done yesterday, await and interpretation Inhalers Continue prednisone [address] Galindo recommended to taper prednisone on discharge tomorrow: 30 mg for 10 days, then 20 mg for 10 days then 18 mg until seen in follow-up Follow-up with ENT in the outpatient settings (2) acute on chronic respiratory failure with hypoxia, on home O2 therapy Continue oxygen supplementation Patient currently on 4 L of oxygen by nasal cannula (3) HTN (hypertension) Continue home cardioprotective medication (4) Shortness of breath See above (5) Steroid-dependent COPD Continue Bactrim (6) PARISH on CPAP Continue CPAP daily at bedtime (7) Depression Continue home meds (8) GERD (gastroesophageal reflux disease) Continue PPI Dysuria There is concern for BPH Flomax started Patient has residual around 150 mL after urination in the morning, after second urination in finance he was able to empty his bladder Follow-up with urologist in the outpatient settings VS,Oswalde, I+O VS, Oswalde, I+O Vital Signs Date Time Temp Pulse Resp B/P (MAP) Pulse Ox O2 Delivery O2 Flow Rate FiO2 11/11/20 08:44 92 144/93 11/11/20 06:00 96.9 16 92 High Flow Cannula 4.0 11/09/20 08:00 60 I&O- Last 24 Hours up to 6 AM 11/11/20 06:00 Intake Total 2425 ml Output Total 3275 ml Balance -850 ml BRYAN GARNER DO Nov 11, 2020 10:45
[2020-11-11] MEDS: hydrOXYzine 25 MG TAB PO PRN ×2 (12:54→22:40)
--- NOTE | 2020-11-11 13:00 | IPN ---
PROGRESS NOTE DATE: 11/11/2020 Patient states he feels back at his baseline. Sniff test was unremarkable yesterday. He is at his usual 4 liters. He is down to 40 mg of prednisone. There is some question whether or not he could have a steroid myopathy causing significant muscle weakness. I have recommended that he taper steroids as directed. I will follow him closely in the office. He has had no cough, fever, chills. His symptoms of wheeze have resolved. This was an upper airway wheeze that was intermittent. He states it comes and goes. I believe he likely has a component of vocal cord dysfunction. He had no headache, fever, chills. He is having some difficulty with urination. PHYSICAL EXAMINATION: Temperature is 96.9, pulse is 92, respiratory rate is 16, blood pressure is 144/93, oxygen saturation is 92% on 4 liters. GENERAL: Awake, alert, and oriented. Affect and mood are appropriate. Nutrition and hygiene are good. Oral and nasal mucosa are pink and moist without lesions. Oropharynx without erythema or exudate. Decreased breath sounds throughout both lung solis. Poor air entry. CARDIAC: Regular S1, S2 without audible murmur, rub, or gallop. ABDOMEN: Obese, soft, nontender, nondistended. No hepatosplenomegaly. No masses or hernia. EXTREMITIES: No cyanosis, clubbing, or edema. No unilateral weakness. No new tremor. Patient complains of tremor, but I see no new asterixis. LABORATORY EVALUATION: Not performed this morning. I did review Sniff testing from yesterday, which does show mobility of the diaphragm. IMPRESSION: 1. Hypoventilation with hypoxia. No evidence of acute decompensation. Patient is on his usual level of oxygen. Patient does continue to believe that he feels better with steroids. I am finding no evidence of acute interstitial darian disease requiring a need for steroid burst. Will taper steroid back to his normal 18 mg and continue to try and de-escalate therapy from there. I will arrange for his second opinion park keeper to have a copy of his chest CT and fluoroscopy on disk for viewing. Since he is at his baseline, I believe it is safe to send him home. 2. Urologic symptoms. Would evaluate for the possibility of a neurogenic bladder.
--- NOTE | 2020-11-11 13:16 | REP ---
INDICATION: hypoventilation, bilateral, needs on cd. COMPARISON: None. TECHNIQUE: The procedure was performed under the direct supervision of Dr. Fitzpatrick. The images were reviewed with Dr. Fitzpatrick. The patient was instructed to take a few short steps as well as 2 deep inhalations. Images demonstrate normal excursion of the diaphragms bilaterally. There is no evidence of paradoxical motion. 0.2 minutes of fluoroscopy time was utilized for this procedure. FINDINGS: None IMPRESSION: Images demonstrate normal excursion of the diaphragms bilaterally. There is no evidence of paradoxical motion. <Electronically signed by Mansoor Cardozo > 11/10/20 5010 <Electronically signed by Wagner Fitzpatrick > 11/11/20 1314
[2020-11-11 14:00] VITALS: BP 98/67
[2020-11-11] MEDS: AMITRIPTYLINE 50 MG TAB PO SCH (20:50)
[2020-11-11] MEDS: CYCLOBENZAPRINE 5MG TABLET PO SCH (20:50)
[2020-11-11] MEDS: QUEtiapine FUMARATE 25 MG TAB PO SCH (20:51)
[2020-11-11] MEDS: ENOXAPARIN 40MG/0.4ML SYRINGE (J1650 PER 10MG) SC SCH (20:52)
[2020-11-11 22:00] VITALS: BP 128/91
[2020-11-11] MEDS: RAMELTEON 8 MG TAB (ROZEREM) PO PRN (22:40)
[2020-11-12 06:00] VITALS: BP 113/64
[2020-11-12] MEDS: IPRATROPIUM 0.5MG/ALBUTEROL 2.5MG INH SOL UD 3ML (DUONEB) NEB SCH ×2 (07:24→13:26)
[2020-11-12] MEDS: ADVAIR HFA 230/21MCG INHALER INH SCH (07:24)
[2020-11-12] MEDS: rOPINIRole 1MG TAB PO SCH (08:55)
[2020-11-12] MEDS: CALCITRIOL 0.25 MCG CAP (S0169) PO SCH (08:55)
[2020-11-12] MEDS: PREGABALIN 100 MG CAP (LYRICA) PO SCH (08:55)
[2020-11-12 08:56] VITALS: BP 138/91
[2020-11-12] MEDS: METHYLPHENIDATE 5 MG TAB PO SCH (08:56)
[2020-11-12] MEDS: PANTOPRAZOLE 40MG TAB (PROTONIX) PO SCH (08:56)
[2020-11-12] MEDS: ASPIRIN 81MG ENTERIC TABLET PO SCH (08:56)
[2020-11-12] MEDS: METOPROLOL SUCC (TopROL XL) 100MG *XL* TAB PO SCH (08:56)
[2020-11-12] MEDS: predniSONE 20 MG TAB PO SCH (08:56)
[2020-11-12] MEDS: TORSEMIDE 20 MG TAB PO SCH (08:56)
[2020-11-12] MEDS: SERTRALINE HCL 25 MG TABLET PO SCH (08:56)
[2020-11-12] MEDS: TAMSULOSIN 0.4 MG CAP PO SCH (08:56)
[2020-11-12] MEDS: POTASSIUM CHLORIDE 10 MEQ SR TABLET PO SCH (08:57)
[2020-11-12] MEDS: hydrOXYzine 25 MG TAB PO PRN (08:58)
[2020-11-12] MEDS ORDERED: IPRA0.00 NEB (11:20)
[2020-11-12] MEDS ORDERED: ADVA230A INH (11:20)
[2020-11-12] MEDS ORDERED: FLOM0.4C39 PO (11:20)
[2020-11-12] MEDS ORDERED: PRED10TA2 PO (11:26)
--- NOTE | 2020-11-12 15:27 | DS.PDOC ---
Discharge Summary General Date of Admission November 08, 2020 at 12:13 Date of Discharge 11/12/20 Discharge Summary PROCEDURES PERFORMED DURING STAY: [None]. ADMITTING DIAGNOSES: Dyspnea acute on chronic respiratory failure with hypoxia, on home O2 therapy HTN (hypertension) Shortness of breath Steroid-dependent COPD PARISH on CPAP Depression GERD (gastroesophageal reflux disease) Dysuria DISCHARGE DIAGNOSES: Dyspnea acute on chronic respiratory failure with hypoxia, on home O2 therapy HTN (hypertension) Shortness of breath Steroid-dependent COPD PARISH on CPAP Depression GERD (gastroesophageal reflux disease) Dysuria COMPLICATIONS/CHIEF COMPLAINT: Chronic Respiratory Failure With Hypoxia, Dyspnea. HISTORY OF PRESENT ILLNESS:Patient is 45 years old male with past history of chronic hypoxemic respiratory failure on 4 L of oxygen, chronic steroid dependence, obstructive sleep apnea on CPAP, depression, hypertension presented to the hospital with increased shortness of breath and cough. Patient stated that his symptoms started 4-5 days ago when he developed intermittent cough without sputum production, chills and generalized weakness. Also patient reported increased shortness of breath on exertion. Patient follows by Dr. Galindo. No particular cause of his chronic respiratory failure was identified. He reports that he wanted to go to [facility], however, his insurance did not approve. Patient denied fever, dysuria or diarrhea. No chest pain or palpitations. In ER patient was found to have on chest x-ray Pulmonary vascular congestion/interstitial edema as well as basilar atelectasis cannot be excluded. Stable cardiomegaly noted. Labs pertinent for mild elevation of bilirubin to 1.2 HOSPITAL COURSE: During the hospital stay the following issues addressed (1) Dyspnea Unknown trigger, patient doesn't have leukocytosis, no sputum production Most likely multifactorial. There is concern for vocal cord dysfunction given laryngeal wheezes, diaphragmatic dysfunction and possible underlying neurological diseases. His MIPs and MVVs were low. Dr. Galindo follows him. SNIFF test was done yesterday, negative for diaphragmatic dysfunction Continue Inhalers Continue prednisone [address] Galindo recommended to taper prednisone on discharge 30 mg for 10 days, then 20 mg for 10 days then 18 mg until seen in follow-up Follow-up with ENT in the outpatient settings (2) acute on chronic respiratory failure with hypoxia, on home O2 therapy Continue oxygen supplementation Patient currently on 4 L of oxygen by nasal cannula (3) HTN (hypertension) Continue home cardioprotective medication (4) Shortness of breath See above (5) Steroid-dependent COPD Continue Bactrim (6) PARISH on CPAP Continue CPAP daily at bedtime (7) Depression Continue home meds (8) GERD (gastroesophageal reflux disease) Continue PPI Dysuria There is concern for BPH Flomax started Patient has residual around 150 mL after urination in the morning, after second urination in finance he was able to empty his bladder Follow-up with urologist in the outpatient settings DISCHARGE MEDICATIONS: Please see below. ALLERGIES: Please see below. PHYSICAL EXAMINATION ON DISCHARGE: VITAL SIGNS: Please see below. GENERAL APPEARANCE: NAD HEENT: no scleral icterus, no JVD, EOMI CARDIOVASCULAR: S1S2 LUNGS: Diminished lung sounds bilaterally ABDOMEN: soft & not tender w palpitation, obese MUSCULOSKELETAL: no cyanosis, no swelling INTEGUMENT: no generalized pallor NEUROLOGICAL: cranial nerve function from 2-12 intact intact, follows commands, speech not dysarthric LABORATORY DATA: Please see below. IMAGING: [facility] NAME: ROLLY YANCEY DATE OF : 1975 AGE: 45 SEX: M REPORT #: [id number] ROOM: [facility] INP TECHNOLOGIST: YOHAN DOCTOR: Ping Pacheco MD Ordered for Date&Time: 11/08/20 1157 cc: [~ rep ct ivnm] Service Date&Time: 11/08/20 1251 This report is in Signed status. If this report is in a DRAFT status it has not yet been reviewed by the radiologist for accuracy. Thank you for having your radiology procedures performed at [facility] RADIOLOGY REPORT Date&Time printed: [~ rep prt dt last] [~ rep prt tm last] Page 2 of 2 [place] [address] RADIOLOGY REPORT This report is in Signed status. If this report is in a DRAFT status it has not yet been reviewed by the radiologist for accuracy. Thank you for having your radiology procedures performed at [facility] RADIOLOGY REPORT Date&Time printed: [~ rep prt dt last] [~ rep prt tm last] Page 1 of 1 cough/sob COMPARISON: None. TECHNIQUE: Axial contrast enhanced images from the thoracic inlet to the upper abdomen using pulmonary embolus technique with multiplanar re-formations. 75 ml Isovue 370 intravenous contrast material administered without complication. This CT examination was performed using the following dose reduction techniques: Automated exposure control, adjustment of mA and/or kv according to the patient's size, and use of iterative reconstruction technique. FINDINGS: Satisfactory enhancement of the pulmonary vasculature is achieved and no filling defects are identified to suggest pulmonary embolus. Thoracic aorta without aneurysm or dissection. Heart and pericardium are normal. Lung solis demonstrate right upper lobe and bilateral lower lobe atelectasis. No effusion. No pneumothorax. Tracheobronchial tree is patent. No significant adenopathy. IMPRESSION: No evidence for pulmonary embolus. Moderate scattered atelectasis. <Electronically signed by Alex Garsia > 11/08/201315 DD: Alex Garsia MD 11/08/201312 DT: BETH 11/08/201315 DS: GRACE 11/08/20131211/08/201312 [~ rep ct labl] PROGNOSIS: Fair ACTIVITY: [As tolerated]. DIET: Cardiac DISPOSITION: 01 Home, Self-Care. ITEMS TO FOLLOWUP ON ON OUTPATIENT: Follow-up with boat officer in the outpatient settings DISCHARGE CONDITION: [Stable]. TIME SPENT ON DISCHARGE: 40minutes. Vital Signs/I&Os Vital Signs Date Time Temp Pulse Resp B/P (MAP) Pulse Ox O2 Delivery O2 Flow Rate FiO2 11/12/20 13:00 4.0 11/12/20 08:56 93 138/91 11/12/20 06:00 97.3 18 92 High Flow Cannula 11/09/20 08:00 60 I&O- Last 24 Hours up to 6 AM 11/12/20 06:00 Intake Total 2425 ml Output Total 3324 ml Balance -899 ml Microbiology Microbiology 11/09/20 Respiratory Virus Panel (PCR) (PHYLLIS) - Final, Complete 11/08/20 Blood Culture - Preliminary, Resulted No Growth after 72 hours. All specime... 11/08/20 Blood Culture - Preliminary, Resulted No Growth after 72 hours. All specime... Discharge Medications Scheduled Amitriptyline HCl (Amitriptyline HCl) 25 Mg Tablet, 50 MG PO QHS, (Reported) Aspirin (Aspirin EC) 81 Mg Tablet.dr, 81 MG PO DAILY, (Reported) Calcitriol (Calcitriol) 0.25 Mcg Capsule, 0.25 MCG PO DAILY, (Reported) Cyclobenzaprine HCl (Cyclobenzaprine HCl) 5 Mg Tablet, 5 MG PO QHS, (Reported) Duloxetine HCl (Duloxetine HCl) 60 Mg Capsule.dr, 60 MG PO DAILY, (Reported) Fluticasone Propion/Salmeterol (Advair Hfa 230-21 Mcg Inhaler) 12 Gm Hfa.aer.ad, 2 PUFF INH RBID Ketoconazole (Ketoconazole) 120 Ml Shampoo, 1 DOSE TOP Q2D, (Reported) Melatonin (Melatonin) 10 Mg Capsule, 10 MG PO QHS, (Reported) Methylphenidate HCl (Methylphenidate HCl) 5 Mg Tablet, 10 MG PO QAM, (Reported) Methylphenidate HCl (Methylphenidate HCl) 5 Mg Tab.chew, 5 MG PO DAILY, (Repo rted) TAKES AT NOON Metoprolol Succinate (Metoprolol Succinate) 100 Mg Tab.er.24h, 100 MG PO DAILY, (Reported) Pantoprazole Sodium (Pantoprazole Sodium) 40 Mg Tablet.dr, 40 MG PO QHS, (Rep orted) Potassium Chloride (Potassium Chloride) 10 Meq Tab.er.prt, 20 MEQ PO DAILY, (Reported) Prednisone (Prednisone) 5 Mg Tablet, 15 MG PO DAILY, (Reported) TAKE WITH 3 1MG TABS. TOTAL OF 18MG DAILY Prednisone (Prednisone) 10 Mg Tablet, 10 MG PO DAILY Take 30 mg for 10 days then 20 mg for 10 days, then 18mg daily Pregabalin (Lyrica) 300 Mg Capsule, 300 MG PO BID, (Reported) Quetiapine Fumarate (Quetiapine Fumarate) 25 Mg Tablet, 25 MG PO QHS, (Reported) Ropinirole HCl (Ropinirole HCl) 1 Mg Tablet, 1 MG PO TID, (Reported) Sertraline HCl (Sertraline HCl) 50 Mg Tablet, 75 MG PO DAILY, (Reported) Sulfamethoxazole/Trimethoprim (Bactrim Ds Tablet) 1 Each Tablet, 1 TAB PO 3XW, (Reported) MONDAY, MONDAY AND MONDAY Tamsulosin HCl (Flomax) 0.4 Mg Capsule, 0.8 MG PO DAILY Torsemide (Torsemide) 20 Mg Tablet, 20 MG PO DAILY, (Reported) Scheduled PRN Calcium Carbonate (Tums) 200 Mg Tab.chew, 1,000 MG PO WM PRN for HEARTBURN, (Reported) Hydroxyzine HCl (Hydroxyzine HCl) 25 Mg Tablet, 25 MG PO QID PRN for ANXIETY, (Reported) Allergies Coded Allergies: TAPE (Verified Allergy, Intermediate, HIVES, 04/03/19) PLASTIC TAPE, PAPER TAPE OK silver (Verified Allergy, Intermediate, HIVES, 04/03/19) topiramate (Verified Allergy, Unknown, HIVES,CONFUSION, 06/26/20) acetazolamide (Verified Adverse Reaction, Unknown, " out of it", 06/26/20) BRYAN GARNER DO Nov 12, 2020 15:27
--- NOTE | 2020-11-13 23:20 | ECGEPIP ---
[facility] Test Date: 2020-11-09 Pat Name: ROLLY YANCEY Department: Room: [place] [address] Gender: Male Intelligence Officer: MICHEAL : 1975 Requested By: JESSICA Aiken Order Number: [id number] Reading MD: Jose Camacho Measurements Intervals D Lo Rate: 117 P: 47 MS: 156 QRS: -9 QRSD: 116 T: 22 QT: 344 QTc: 479 Interpretive Statements Sinus tachycardia Nonspecific T wave abnormality Compared to prior tracing in the system on 11/08/20 at 10:36, no significant c changes but now faster heart rate Electronically Signed on 11-13-2020 23:20:21 EDT by Jose Camacho
== END 2020-11-12 13:52 | disposition home health service (06) | DRG 133 ==
LOC: M ED 10:17 → M ED INP 12:13 → ENRESERV 12:43 → M MS5PR 13:30 → M ICU 11-09 03:12 → M PCU 11-09 11:31 → M MSPAV 11-10 15:36
PROVIDERS: ADMIT Internal Medicine; ATTEND Internal Medicine
DX: J96.21 Acute and chronic respiratory failure with hypoxia (principal); G61.81 Chronic inflammatory demyelinating polyneuritis; Z99.81 Dependence on supplemental oxygen; K76.0 Fatty (change of) liver, not elsewhere classified; G47.33 Obstructive sleep apnea (adult) (pediatric); M62.81 Muscle weakness (generalized); I10 Essential (primary) hypertension; F32.9 Major depressive disorder, single episode, unspecified; J38.3 Other diseases of vocal cords; G25.81 Restless legs syndrome; R30.0 Dysuria; K52.9 Noninfective gastroenteritis and colitis, unspecified; G43.909 Migraine, unspecified, not intractable, without status migrainosus; K21.9 Gastro-esophageal reflux disease without esophagitis; J98.4 Other disorders of lung; N40.1 Benign prostatic hyperplasia with lower urinary tract symptoms; G93.2 Benign intracranial hypertension; Z90.49 Acquired absence of other specified parts of digestive tract; Z79.52 Long term (current) use of systemic steroids; Z20.822 Contact with and (suspected) exposure to COVID-19; Z79.82 Long term (current) use of aspirin; Z79.899 Other long term (current) drug therapy; Z88.8 Allergy status to other drugs, medicaments and biological substances; Z91.048 Other nonmedicinal substance allergy status

== ENCOUNTER → 2020-12-02 | Outpatient (CLI) | payer OTHER ==
[~2020-12-02] MED LIST changes: +ADVA230A INH; +ERGO500029 PO; +FLOM0.4C39 PO; +IPRA0.00 NEB; +LYRI300C PO; +METH2.5T48; -VITA50005 PO
--- NOTE | 2020-12-02 16:26 | REP ---
INDICATION: EPIDIDYMAL CYST. COMPARISON: None. TECHNIQUE: Real-time sonographic evaluation of scrotum and contents performed. FINDINGS: The testicles are normal in size and echotexture, right testicle measuring 4.2 x 2.3 x 3.2 cm and left testicle 4.9 x 2.4 x 2.8 cm. There is no testicular mass or torsion, blood flow is seen in each testicle with duplex Doppler evaluation. There is a 1 mm cyst in the lower pole of the right testicle. There is a 3 mm cyst in the head of the right epididymis. There are multiple cysts in the head of the left epididymis, the largest measures 2.1 cm in diameter and corresponds to the palpable lump as per the patient. No hydrocele is seen. IMPRESSION: No testicular mass or torsion. Multiple cysts in the head of the left epididymis, the largest measures 2.1 cm and corresponds to the left-sided palpable lump according to the patient. <Electronically signed by Wagner Fitzpatrick > 12/02/20 5028
== END ==
LOC: M RAD 14:47
PROVIDERS: ATTEND Specialist
DX: N50.3 Cyst of epididymis (principal)

== ENCOUNTER 2022-01-17 08:35 | Day surgery (SDC) | payer MEDICARE, BC, OTHER ==
[~2022-01-17] VITALS: Ht 172.7 cm; Wt 114.3 kg
[2022-01-17] VITALS (7 sets, daily range): BP systolic 127–132; BP diastolic 86–93; O2SAT 95–97
[~2022-01-17 08:35] MED LIST changes: +CARV12.5 PO; -FLUC150T PO; +FLUC150T9 PO; -KLOR10TA76 PO; +MELA300T PO; +METH-1102 PO; -METH1CHW2 PO; +METH25TA10 PO; -METH25TA3 PO; +POTA-136 PO; +POTA-150 PO; -POTA10TA14 PO; -POTA10TA17 PO; +POTA1TAB24 PO; +QUET1TAB17 PO; -QUET25TA3 PO; -QUET50TA3 PO; +QUET50TA4 PO; +SAXE1INJ SC; +ceFAZolin SOD 2 GM in IV 1 EA IV ONE
[2022-01-17] MEDS ORDERED: LR 1,000 ML IV SCH ×2 (08:55→11:35)
[2022-01-17] MEDS ORDERED: BUPR150T12 PO (09:24)
[2022-01-17] MEDS ORDERED: LEVO25TA5 PO (09:24)
[2022-01-17] MEDS ORDERED: FLUO40CA PO (09:24)
[2022-01-17] MEDS ORDERED: BACITRACIN OINTMENT 30GM TUBE As Ordered ONE (10:05)
[2022-01-17] MEDS ORDERED: LIDOCAINE 1% SDV 30ML VIAL As Ordered ONE (10:05)
[2022-01-17] MEDS ORDERED: LIDOCAINE 2% 100MG/5ML SDV (FOR ANES.) As Ordered ONE (10:05)
[2022-01-17] MEDS ORDERED: propofoL 200 MG/20 ML VIAL As Ordered ONE (10:05)
[2022-01-17] MEDS ORDERED: BUPIVACAINE HCL 0.25% 30ML VIAL As Ordered ONE (10:06)
[2022-01-17] MEDS ORDERED: fentaNYL 100 MCG/2 ML INJECTION As Ordered ONE (10:07)
[2022-01-17] MEDS ORDERED: MIDAZOLAM INJ 2MG/2ML VIAL (J2250 PER 1MG) As Ordered ONE (10:07)
[2022-01-17] MEDS ORDERED: ONDANSETRON 4MG 2ML VIAL IV PRN ×2 (11:35→11:50)
[2022-01-17] MEDS ORDERED: ACETAMINOPHEN TAB 650MG DOSE (2X325MG) PO PRN (11:50)
[2022-01-17] MEDS: oxyCODONE 5MG TAB PO PRN ×2 (12:14→13:03)
[2022-01-17] MEDS ORDERED: QUET100T2 PO (12:35)
[2022-01-17] MEDS ORDERED: ATIV1TAB10 PO (12:35)
[2022-01-17] MEDS ORDERED: MELA3TAB30 PO (12:40)
[2022-01-17] MEDS ORDERED: HOME MED LIST COMPLETE! XX SCH (12:45)
[2022-01-17] MEDS: PREGABALIN 100 MG CAP (LYRICA) PO SCH ×2 (15:31→20:05)
[2022-01-17] MEDS: CEPHALEXIN 500 MG CAP PO SCH ×2 (15:31→20:05)
[2022-01-17] MEDS: NORCO, ANEXSIA 5/325MG TABLET (HYDROcodone/ACETAMINOPHEN) PO PRN (17:01)
[2022-01-17] MEDS: CARVedilol 12.5 MG TAB PO SCH (20:06)
[2022-01-17] MEDS ORDERED: PANTOPRAZOLE 40MG TAB (PROTONIX) PO SCH (21:00)
[2022-01-17] MEDS ORDERED: DULoxetine 30MG CAPSULE (CYMBALTA) PO SCH (21:00)
[2022-01-17] MEDS ORDERED: QUEtiapine FUMARATE 50MG TAB PO SCH (21:00)
[2022-01-17] MEDS ORDERED: CYCLOBENZAPRINE 5MG TABLET PO SCH (21:00)
[2022-01-17] MEDS ORDERED: TOPIRAMATE (TopAMAX) 25 MG TAB PO SCH (21:00)
[2022-01-17] MEDS ORDERED: AMITRIPTYLINE 50 MG TAB PO SCH (21:00)
[2022-01-18] VITALS: BP 128/85
[2022-01-18] MEDS: NORCO, ANEXSIA 5/325MG TABLET (HYDROcodone/ACETAMINOPHEN) PO PRN ×3 (00:11→12:21)
[2022-01-18 03:53] VITALS: BP 124/83
[2022-01-18] MEDS ORDERED: LEVOTHYROXINE 25MCG TABLET (0.025MG) PO SCH (06:00)
[2022-01-18 08:02] VITALS: BP 121/80
[2022-01-18] MEDS: CEPHALEXIN 500 MG CAP PO SCH (08:19)
[2022-01-18] MEDS: PREGABALIN 100 MG CAP (LYRICA) PO SCH (08:19)
[2022-01-18 08:22] VITALS: BP 117/78
[2022-01-18] MEDS: CARVedilol 12.5 MG TAB PO SCH (08:22)
[2022-01-18 09:00] VITALS: O2SAT 96
[2022-01-18] MEDS ORDERED: FLUoxetine 20MG CAP PO SCH (09:00)
[2022-01-18] MEDS ORDERED: POTASSIUM CHLORIDE 10MEQ SR TABLET PO SCH (09:00)
[2022-01-18] MEDS ORDERED: PANTOPRAZOLE 40MG TAB (PROTONIX) PO SCH (09:00)
[2022-01-18] MEDS ORDERED: buPROPion **XL** TABLET 150MG (WELLBUTRIN XL) PO SCH (09:00)
[2022-01-18] MEDS ORDERED: CALCITRIOL 0.25 MCG CAP (S0169) PO SCH (09:00)
[2022-01-18] MEDS ORDERED: FUROSEMIDE 40 MG TAB PO SCH (09:00)
[2022-01-18] MEDS ORDERED: HYDR-3713 PO (09:25)
[2022-01-18] MEDS ORDERED: CEPH500C PO (09:25)
== END 2022-01-18 12:30 | disposition home or self-care (01) ==
LOC: M SDC 08:35 → M MSPAV 14:44 → M SDC 01-18 12:30
PROVIDERS: ATTEND Urology
DX: N50.3 Cyst of epididymis (principal); Z91.048 Other nonmedicinal substance allergy status; Z88.8 Allergy status to other drugs, medicaments and biological substances
CPT/HCPCS: 54840; 88305; J0690; J2405

== ENCOUNTER → 2022-03-10 | Outpatient (CLI) | payer MEDICARE, BC, OTHER ==
[~2022-03-10] MED LIST changes: +ATIV1TAB10 PO; +BUPR150T12 PO; +CEPH500C PO; +FLUO40CA PO; +HYDR-3713 PO; +LEVO25TA5 PO; +QUET100T2 PO; -ceFAZolin SOD 2 GM in IV 1 EA IV ONE
[2022-03-10 14:21] LABS: ABG BASE EXCESS 0.3 (-2.0-2.0); ABG HCO3 24.5 MEQ/L (22.0-26.0); ABG O2 SATURATION 96.8 % (95.0-99.0); ABG PARTIAL PRESSURE CO2 38.7 mmHg (35.0-45.0); ABG PARTIAL PRESSURE O2 87.7 mmHg (75.0-100.0); ABG STANDARD HCO3 24.7 MEQ/L (22.0-26.0); ABG TOTAL CO2 25.7 MEQ/L (22.0-29.0)
== END ==
LOC: M CARPUL 13:32
PROVIDERS: ATTEND Internal Medicine Pulmonary Disease
DX: M62.81 Muscle weakness (generalized) (principal)

== ENCOUNTER → 2025-04-02 | Outpatient (REF) | payer BC, OTHER, MEDICARE ==
[~2025-04-02] MED LIST changes: -AMBI5TAB PO; -AMIT25TA17 PO; +AMIT25TA19 PO; -ASPI-161 PO; +ASPI-615 PO; +CVS10CAP8 PO; -CYCL5TAB PO; +CYCL5TAB4 PO; -FLOM0.4C39 PO; +GABA-1172 PO; -GABA-282 PO; -IBUP-1022 PO; +IBUP600T42 PO; +KETO120S5 TOP; -KETO2SHA8 TOP; -LUNE2TAB23 PO; +LUNE2TAB28 PO; -MELA10CA2 PO; +NYST1POW3 TOP; -NYST1POW9 TOP; +POTA-298 PO; -POTA1TAB14 PO; +PRED-1142 PO; -PRED1TABL PO; +PREG-35 PO; -PREG100CA PO; -PREG300C PO; +PREG300C2 PO; -ROPI1TAB3 PO; +ROPI1TAB73 PO; +TAMS-18 PO; +TOPI-21 PO; +TOPI-256 PO; -TOPI25TA10 PO; -TOPI50TA9 PO; +ZOLP-532 PO; -ZOLP5TAB PO; +ZOLP5TAB9 PO
== END ==
LOC: M LAB REF 14:30
PROVIDERS: ATTEND Physician Assistant
DX: H10.9 Unspecified conjunctivitis (principal)